=== PATIENT | female | born 1955 | race Caucasian/White ===

== ENCOUNTER 2016-05-02 16:41 | Emergency (ER) | payer OTHER ==
[~2016-05-02] VITALS: Ht 167.6 cm; Wt 139.0 kg
[~2016-05-02 16:41] MED LIST: BUPR200T2 PO; CHOL100010 PO; CYAN10005 PO; DICY1TAB25 PO; FSMD/70 PO; HYDR-5688 PO; OMEG10007 PO; OMEG1CAP71 PO
[2016-05-02 16:59] VITALS: TEMP 36.6; Ht 167.6 cm; Wt 139.0 kg
[2016-05-02] MEDS ORDERED: CHOL2000 PO (17:31)
[2016-05-02] MEDS ORDERED: WLLSR/200 PO (17:31)
[2016-05-02] MEDS ORDERED: ALEN70TA4 PO (17:31)
[2016-05-02] MEDS ORDERED: TRMCR180 TOP (17:31)
[2016-05-02] MEDS ORDERED: [UNRECOGNIZED DRUG - CODE] TOP (17:31)
--- NOTE | 2016-05-02 18:24 | EMERGENCY ROOM VISIT NOTE ---
History First contact with patient: 17:04 Chief Complaint: SKIN PROBLEM Stated Complaint: BLISTERS ON SKIN,GETTING WORSE History of Present Illness The patient is a 60 year old female who presents to the Emergency Room with complaints of a worsening rash. The patient reports that she has been seeing dermatology for a rash on her feet, legs and arms. The rash has been present for a few weeks but is worsening over the past few days. The patient states that she recently saw them and they performed a biopsy and gave her a cream. She has not yet received the results of the biopsy. She reports she has had worsening blisters between her toes over the past 2 days and states it is painful to walk. She rates her discomfort a 9/10. She has been taking Fedscreek at home without relief of her pain. She denies any fevers/chills or swelling. She denies any new medications or new environmental exposures. Review of Systems A complete 10-point Review of Systems was discussed with the patient, with pertinent positives and negatives listed in the History of Present Illness. All remaining Review of Systems questions can be considered negative unless otherwise specified. 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 (2) ARF (acute renal failure) (3) Depression (4) HTN (hypertension) Family History Blood clots Diabetes mellitus FH: CHF (congestive heart failure) FH: CVA (cerebrovascular accident) Social History Smoking Status: Former Smoker Alcohol Use: none Drug Use: none Housing Status: lives with family Occupation Status: employed Current/Historical Medications Scheduled Alendronate Sodium (Fosamax), 70 MG PO WK Bupropion Hcl (Wellbutrin Sr), 200 MG PO BID Cholecalciferol (Vitamin D3), 2,000 INTER.UNIT PO DAILY Cyanocobalamin (Vitamin B-12), 1,000 MCG PO DAILY Dicyclomine HCl (Dicyclomine HCl), 20 MG PO QID Fish Oil ([place]-3), 1,200 MG PO QAM Miconazole Nitrate (Topical) (Triple Paste Af), 1 APPLN TOP UD [place] 3 Fatty Acids-[place] 6 Fa ([place] 3-6-9 Complex), 1 CAP PO DAILY Triamcinolone Acet (Aristocort 0.1%), 1 APPLN TOP BID Scheduled PRN Hydrocodone/Acetaminophen 5MG/325MG (Fedscreek 5MG/325MG), 1-3 TABS PO Q6H PRN for Pain Allergies Coded Allergies: Ibuprofen (Verified Allergy, Mild, stomach irritation, 08/07/15) Acetaminophen (Unverified Allergy, Unknown, UPSET STOMACH, 08/07/15) Hydrocodone (Unverified Allergy, Unknown, UPSET STOMACH, 08/07/15) Uncoded Allergies: eggs (Allergy, Unknown, reaction unknown, 01/29/15) Physical Exam Vital Signs Date Time Temp Pulse Resp B/P Pulse Ox O2 Delivery O2 Flow Rate FiO2 05/02/16 18:52 96 20 106/68 97 05/02/16 16:59 36.6 96 18 197/77 100 Room Air Physical Exam VITALS: Vitals are noted on the nurse's note and reviewed by myself. Vital signs stable. GENERAL: This is a 52-year-old female, in no acute distress, nondiaphoretic, well-developed well-nourished. SKIN: There are multiple crusted erythematous lesions over the bilateral forearms, lower legs and feet. There are multiple bullous lesions on in between the toes. HEENT: Normocephalic. PERRLA. EOMI. Nares patent. Mucous membranes moist. Neck is supple without nuchal rigidity. HEART: Regular rate and rhythm without murmurs gallops or rubs. LUNGS: Clear to auscultation bilaterally without wheezes, rales or rhonchi. NEURO: Patient was alert and oriented to person place and time. Medical Decision & Procedures Medical Decision The patient was evaluated as above. She presents with a rash to the bilateral feet and arms which has been there for the past few weeks. She has a hard he seen a fire prevention research engineer regarding this and was given a steroid cream and had a biopsy performed. The biopsy results are not yet completed. I am not concerned about Valdes-Pedro syndrome or TEN. Do not feel that further workup is necessary at this time, as the patient is a 42 see a specialist for this rash. She does have a prescription for pain medication from her primary care provider which she has been taking at home. I do not feel that the patient needs any further treatment and did recommend that she follow-up with her established fire prevention research engineer regarding this dermatological condition. The patient verbalized her understanding of my assessment and treatment plan and the patient was discharged home in good condition. Impression Primary Impression: Rash and nonspecific skin eruption Departure Information Dispostion Home / Self-Care Condition GOOD Referrals Marcus Talavera D.O. (PCP) Patient Instructions My [facility] Additional Instructions Continue Fedscreek as needed for pain. Follow-up with your fire prevention research engineer. Call tomorrow for appointment. Return to the emergency room with fevers, worsening symptoms or any new/ concerning symptoms.
[2016-05-02 18:52] VITALS: BP 106/68; PULSE 96; O2SAT 97
[2016-09-10] MEDS ORDERED: DOCU-94 PO (18:33)
[2016-09-10] MEDS ORDERED: MELO7.5T6 PO (18:33)
[2016-09-11] MEDS ORDERED: LISI-461 PO (14:29)
== END 2016-05-02 19:00 | disposition home or self-care (01) ==
LOC: C.EDB 16:41 → C.EDD 19:00
DX: R21 Rash and other nonspecific skin eruption (principal); I10 Essential (primary) hypertension; Z85.9 Personal history of malignant neoplasm, unspecified; Z88.5 Allergy status to narcotic agent; Z88.6 Allergy status to analgesic agent; Z87.891 Personal history of nicotine dependence

== ENCOUNTER 2016-06-07 03:13 | Emergency (ER) | payer OTHER ==
[~2016-06-07] VITALS: Ht 167.6 cm; Wt 150.0 kg
[~2016-06-07 03:13] MED LIST changes: +ALEN70TA4 PO; -BUPR200T2 PO; -CHOL100010 PO; +CHOL2000 PO; -FSMD/70 PO; +TRMCR180 TOP; +WLLSR/200 PO; +[UNRECOGNIZED DRUG - CODE] TOP
[2016-06-07 03:15] VITALS: Ht 167.6 cm; Wt 150.0 kg
[2016-06-07] MEDS ORDERED: OXYCODONE HCL IR 5 MG TAB (IMMEDIATE RELEASE) PO STA (03:23)
[2016-06-07] MEDS ORDERED: VNTHFA/IN INH (04:02)
[2016-06-07] MEDS ORDERED: DOXY1TAB6 PO (04:02)
[2016-06-07] MEDS ORDERED: CYM/30 PO (04:02)
--- NOTE | 2016-06-07 04:52 | EMERGENCY ROOM VISIT NOTE ---
History First contact with patient: 03:16 Chief Complaint: FALL Stated Complaint: FELL OUT OF BED,BACK AND LT HIP PAIN History of Present Illness The patient is a 61 year old female who presents to the Emergency Room with complaints of falling out of bed landing on her back complaining of mid, low and left lower buttock pain after landing on this area. No prior fractures to this area. Patient states she is able to ambulate. Patient denies chest pain, dyspnea, abdominal pain, neck pain, head injury, headache, numbness, tingling, localized weakness, loss of bowel or bladder control, saddle anesthesia, IV drug abuse. Review of Systems See HPI for pertinent positives & negatives. A total of 10 systems reviewed and were otherwise negative. 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 (2) ARF (acute renal failure) (3) Depression (4) HTN (hypertension) Family History Blood clots Diabetes mellitus FH: CHF (congestive heart failure) FH: CVA (cerebrovascular accident) Social History Smoking Status: Never Smoker Alcohol Use: none Drug Use: none Housing Status: lives with family Occupation Status: employed Current/Historical Medications Scheduled Alendronate Sodium (Fosamax), 70 MG PO WK Bupropion Hcl (Wellbutrin Sr), 200 MG PO BID Cholecalciferol (Vitamin D3), 2,000 INTER.UNIT PO DAILY Cyanocobalamin (Vitamin B-12), 1,000 MCG PO DAILY Dicyclomine HCl (Dicyclomine HCl), 20 MG PO QID Doxycycline Hyclate (Doxycycline Hyclate), 100 MG PO BID Duloxetine HCl (Cymbalta), 30 MG PO DAILY Fish Oil ([place]-3), 1,200 MG PO QAM Miconazole Nitrate (Topical) (Triple Paste Af), 1 APPLN TOP UD [place] 3 Fatty Acids-[place] 6 Fa ([place] 3-6-9 Complex), 1 CAP PO DAILY Triamcinolone Acet (Aristocort 0.1%), 1 APPLN TOP BID Scheduled PRN Albuterol Hfa (Ventolin Hfa), 2 PUFFS INH Q4 PRN for SOB/Wheezing Hydrocodone/Acetaminophen 5MG/325MG ([place] 5MG/325MG), 1-3 TABS PO Q6H PRN for Pain Allergies Coded Allergies: Ibuprofen (Verified Allergy, Mild, stomach irritation, 06/07/16) Uncoded Allergies: eggs (Allergy, Unknown, reaction unknown, 01/29/15) Physical Exam Vital Signs Date Time Temp Pulse Resp B/P Pulse Ox O2 Delivery O2 Flow Rate FiO2 06/07/16 03:15 36.6 91 18 130/83 97 Room Air Physical Exam VITALS: Vitals are noted on the nurse's note and reviewed by myself. Vital signs stable. GENERAL: Pleasant female able to ambulate, in no acute distress, nondiaphoretic , well-developed well-nourished. SKIN: The skin was without rashes, erythema, edema, or bruising. There is no tenting of the skin. Capillary reflex less than 2 seconds. HEAD: Normocephalic atraumatic. EARS: External auditory canals clear, tympanic membranes pearly rice without erythema or effusion bilaterally. EYES: Pupils equal round and reactive to light and accommodation. Conjunctivae without injection, sclerae without icterus. Extraocular movements intact. NOSE: Patent, turbinates without inflammation or discharge MOUTH: Mucous membranes moist. Pharynx without erythema or exudate. Uvula midline. Airway patent. Tongue does not deviate. NECK: Supple without nuchal rigidity. No lymphadenopathy. No thyromegaly. Cervical spine is nontender. No JVD. HEART: Regular rate and rhythm LUNGS: Clear to auscultation bilaterally without wheezes, rales or rhonchi. No dullness to percussion. No retractions or accessory muscle use. ABDOMEN: Positive bowel sounds x 4. Normal tympanic percussion. Soft, protuberant, obese, nontender, without masses or organomegaly. Salter sign negative. No guarding or rebound tenderness. MUSCULOSKELETAL: No muscle atrophy, erythema, or edema noted. Mid thoracic region tender to palpation and lumbar region tender to palpation and left gluteal region tender to palpation with no step-offs. Patient can ambulate. + 2 patellar reflexes equal present bilaterally. Upper and lower Extremities nontender to palpation with full range of motion without pain. NEURO: Patient was alert and oriented to person place and time. Normal sensation to light and sharp touch. No focal neurological deficits. Medical Decision & Procedures Medications Administered Medications (Trade) Dose Ordered Sig/Sukhdeep Route Start Time Stop Time Status Last Admin Dose Admin Oxycodone HCl (Roxicodone Immediate Rel Tab) 5 mg NOW STAT PO 06/07/16 03:23 06/07/16 03:26 DC 06/07/16 03:28 5 MG ED Course Prior records/ancillary studies reviewed. Triage Nursing notes reviewed. The patient's history was concerning for back pain. Differential diagnosis: Etiologies such as musculoskeletal, disc herniation, fracture, aortic disease, metastatic disease, cord compression, discitis, infection, renal colic, gastrointestinal, acute exacerbation of chronic back pain, sciatica, cauda equina, as well as others were entertained. Physical findings: As above. No focal neurologic findings noted. ER treatment provided: OxyIR On reassessment the patient felt better. Diagnostics interpreted by me: Imaging studies: CT T SPINE: Mild compression deformity T7 superior endplate without retropulsion. Age indeterminate. May be chronic given what appears to be bridging osteophytes with adjacent levels. Correlate with point tenderness. CT L SPINE: Previous MRI September 2015 No acute fracture. Mild anterolisthesis L4 on L5, also present on the previous MR Incidental findings include possible thyroid nodules and right adrenal nodule. Radiologist: Reinaldo Salas M.D. Pelvis x-ray with no acute fracture per my interpretation. Osteopenia. This appears to be consistent with compression fracture of T7. The patient's physical examination and detailed history did not reveal any red flags for back pain such as those listed in the differential diagnosis. Therefore advanced diagnostics and consultations were felt to be unwarranted. Patient was neurovascularly and neurologically intact. She had no deficits on exam. She is well-appearing. She is advised to stretch the area out in the follow-up family care in a few days or here in the ER sooner for severe pain, numbness, tingling, inability to walk, worsening signs or symptoms or as needed. By the evaluation outlined above emergent etiologies such as aortic disease, metastatic disease, infection, renal colic, gastrointestinal, cord compression, cauda equina, as well as others were deemed relatively unlikely. The pt informed about the findings as listed above. All questions were answered and pleased with the treatment. Return instructions were outlined and the patient was discharged in stable condition. Outpatient prescription management: Oxy IR 5mg 1-2 po Q4 hrs prn Referral: The patient was referred back to primary care physician for follow-up in 2 to 3 days for a recheck of the current condition. Case reviewed with my attending Medical Decision As above Impression Primary Impression: Fall Additional Impression: Compression fracture of body of thoracic vertebra Departure Information Dispostion Home / Self-Care Condition GOOD Referrals Marcus Talavera D.O. (PCP) Patient Instructions My [facility] Additional Instructions DO NOT drive, drink alcohol, operate machinery, or perform dangerous activities today. You were given medications in the ER that can affect your ability to safely function or operate a vehicle. Oxycodone (OxyIR) 5mg: Take 1-2 pills every four hours for breakthrough pain. Avoid alcohol, operating machinery or dangerous equipment, working on ladders or roofs, DRIVING, or situations where being under the influence may be dangerous. It is recommended to use an gjel-gei-eomtrer stool softener such as Colace, 100mg twice daily while taking this medication to avoid constipation. Acetaminophen(Tylenol) may be used for fever or pain. Use 1000mg every six hours as needed. Avoid using more than 3000mg in a 24 hour period. This medication can be taken if you need to drive, work, or perform activities which may be dangerous when taking narcotic pain medication. Ice compresses for 20 minutes at a time four times daily for 2-3 days. Use the crutches as instructed. Use the sling as instructed. Remove your arm from the sling 4-6 times a day and move all the joints around to keep them loose. Rest and elevate your injury. Do not get the splint wet. If your splint feels excessively tight, you have worsening pain, develop numbness or tingling, or your digits appear blue, loosen the george wrap. Then reapply the george wrap gently without removing the splint. If your symptoms are not quickly relieved return to the ER for re- evaluation. Continue current medications. Return to the ER immediately for any numbness, tingling, severe pain, extreme swelling in the extremity or as needed. Call Orthopedics tomorrow to arrange follow up for your injury. Problem Qualifiers Primary Impression: Fall Encounter type: initial encounter Qualified Codes: W19.XXXA - Unspecified fall, initial encounter
[2016-06-07] MEDS ORDERED: OXYC1TAB3 PO (04:53)
[2016-06-07] MEDS ORDERED: OXYCODONE IR HOME PACK PO ONE (05:00)
[2016-06-07 05:05] VITALS: TEMP 36.6
[2016-06-07 05:12] VITALS: BP 126/87; PULSE 98; O2SAT 96
--- NOTE | 2016-06-07 06:55 | DIAGNOSTIC IMAGING REPORT ---
THORACIC SPINE CT CT DOSE: HISTORY: Trauma. Pain. fall, back pain TECHNIQUE: Multiaxial CT images of the thoracic spine were performed and reformatted in the sagittal and coronal plane without the use of contrast. COMPARISON: None. FINDINGS: Slight compression deformity superior endplate T7. This potentially is subacute. Degenerative change throughout the low thoracic region. No evidence for compromise of the spinal canal. Posterior arch appears to be intact at all levels. IMPRESSION: Acute/subacute mild compression deformity superior endplate T7. Degenerative change as described. No compromise of the spinal canal. Electronically signed by: Wallace Ramon M.D. 06/07/2016 6:52 AM Dictated Date/Time: 06/07/2016 6:51 AM
--- NOTE | 2016-06-07 07:16 | DIAGNOSTIC IMAGING REPORT ---
LUMBAR SPINE CT CT DOSE: 3688.87 mGy.cm HISTORY: fall, back pain TECHNIQUE: Multiaxial CT images of the lumbar spine were performed and reformatted in the sagittal and coronal plane without the use of contrast. COMPARISON: Lumbar spine MRI 10/20/2015. FINDINGS: No fractures within the lumbar spine. Grade I anterolisthesis of L4 on L5, unchanged. Moderate central canal narrowing at L4-5. Mild disc space narrowing at L4-L5. Pyuk-ew-uqgimdzz facet degenerative changes within the lower lumbar spine. IMPRESSION: No fractures within the lumbar spine. Electronically signed by: Everardo Colin M.D. 06/07/2016 7:14 AM Dictated Date/Time: 06/07/2016 7:11 AM
--- NOTE | 2016-06-07 07:40 | DIAGNOSTIC IMAGING REPORT ---
PELVIS 1 OR 2 VIEW ROUTINE CLINICAL HISTORY: fall, back pain, pelvic pain COMPARISON: None. DISCUSSION: The bones and joint spaces appear intact. There is no evidence of fracture, dislocation or bony disease. Moderate degenerative changes hips bilaterally. Study is somewhat compromised due to patient's large body habitus. IMPRESSION: No acute process within the limitations of patient body habitus factors. Electronically signed by: Wallace Ramon M.D. 06/07/2016 7:38 AM Dictated Date/Time: 06/07/2016 7:38 AM
--- NOTE | 2016-06-07 12:10 | Pharmacy Progress Note ---
ED Pharmacist Progress Note Date of Service: Jun 07, 2016. Received a phone call from [facility] stating they were concerned that this patient was getting a new Rx for Oxycodone IR but she already has a Rx for Hydrocodone/APAP as needed. The pharmacist wanted to be sure the ordering provider was aware. I advised the pharmacist that the Hydrocodone/APAP was listed on the patient's home med list and should have been available for provider's to review. I advised that the patient could likely use both as she has a new injury and her opiate requirements may be higher. However, the patient should be counseled on appropriate use and not to take both at the same time unless there was incomplete relief in 1 hr of taking either Oxycodone or Hydrocodone.
[2016-09-10] MEDS ORDERED: DOCU-94 PO (18:33)
[2016-09-10] MEDS ORDERED: MELO7.5T6 PO (18:33)
[2016-09-11] MEDS ORDERED: LISI-461 PO (14:29)
== END 2016-06-07 05:07 | disposition home or self-care (01) ==
LOC: C.EDB 03:13 → C.EDA 05:07
DX: S22.069A Unspecified fracture of T7-T8 vertebra, initial encounter for closed fracture (principal); W06.XXXA Fall from bed, initial encounter; I10 Essential (primary) hypertension; F32.9 Major depressive disorder, single episode, unspecified; Z85.89 Personal history of malignant neoplasm of other organs and systems; Z79.899 Other long term (current) drug therapy; Z88.6 Allergy status to analgesic agent; Z91.012 Allergy to eggs; Z83.3 Family history of diabetes mellitus; Z82.49 Family history of ischemic heart disease and other diseases of the circulatory system; Z82.3 Family history of stroke; Z86.2 Personal history of diseases of the blood and blood-forming organs and certain disorders involving the immune mechanism

== ENCOUNTER 2016-09-04 18:21 | Emergency (ER) | payer OTHER ==
[~2016-09-04] VITALS: Ht 167.6 cm; Wt 140.9 kg
[~2016-09-04 18:21] MED LIST changes: +CYM/30 PO; +DOXY1TAB6 PO; +OXYC1TAB3 PO; +VNTHFA/IN INH
[2016-09-04 18:26] VITALS: TEMP 36.5; Ht 167.6 cm; Wt 140.9 kg
[2016-09-04] MEDS ORDERED: AMLO-110 PO (18:38)
--- NOTE | 2016-09-04 18:55 | EMERGENCY ROOM VISIT NOTE ---
History First contact with patient: 18:37 Chief Complaint: BACK PAIN Stated Complaint: BACK PAIN - RECENT BACK SURGERY History of Present Illness The patient is a 61 year old female who presents to the Emergency Room with complaints of mid back pain for the last day since the patient was moving a mattress by herself. She thinks that she may have injured the back with a twisting motion. She denies any traumatic injury. She is having pain in the mid back radiating to her right side. She denies any numbness, tingling or weakness. She tried to take one of her hydrocodone tablets with no relief of the pain. The patient underwent a kyphoplasty at [facility] on August 16 in [place]. She is concerned that she may have reinjured the area. Review of Systems 6 system review negative. Please see pertinent positives in the history of present illness section. 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 (2) ARF (acute renal failure) (3) Depression (4) HTN (hypertension) Chronic kidney disease Hypertension Family History Blood clots Diabetes mellitus FH: CHF (congestive heart failure) FH: CVA (cerebrovascular accident) Social History Smoking Status: Former Smoker Alcohol Use: none Drug Use: none Housing Status: lives with family Occupation Status: unemployed Current/Historical Medications Scheduled Alendronate Sodium (Fosamax), 70 MG PO WK Amlodipine (Norvasc), 5 MG PO DAILY Bupropion Hcl (Wellbutrin Sr), 200 MG PO BID Cholecalciferol (Vitamin D3), 2,000 INTER.UNIT PO DAILY Cyanocobalamin (Vitamin B-12), 1,000 MCG PO DAILY Cyclobenzaprine Hcl (Flexeril), 10 MG PO TID Dicyclomine HCl (Dicyclomine HCl), 20 MG PO QID Duloxetine HCl (Cymbalta), 30 MG PO DAILY Fish Oil ([place]-3), 1,200 MG PO QAM Miconazole Nitrate (Topical) (Triple Paste Af), 1 APPLN TOP UD [place] 3 Fatty Acids-[place] 6 Fa ([place] 3-6-9 Complex), 1 CAP PO DAILY Triamcinolone Acet (Aristocort 0.1%), 1 APPLN TOP BID Scheduled PRN Albuterol Hfa (Ventolin Hfa), 2 PUFFS INH Q4 PRN for SOB/Wheezing Hydrocodone/Acetaminophen 5MG/325MG ([place] 5MG/325MG), 1-3 TABS PO Q6H PRN for Pain Oxycodone Immediate Rel Tab (Roxicodone Ir), 1 TAB PO Q4H PRN for Pain Allergies Coded Allergies: Ibuprofen (Verified Allergy, Mild, stomach irritation, 06/07/16) Uncoded Allergies: eggs (Allergy, Unknown, reaction unknown, 01/29/15) Physical Exam Vital Signs Date Time Temp Pulse Resp B/P (MAP) Pulse Ox O2 Delivery O2 Flow Rate FiO2 09/04/16 19:30 93 18 157/91 95 Room Air 09/04/16 18:26 36.5 105 20 161/101 95 Room Air Physical Exam VITALS: Vitals are noted on the nurse's note and reviewed by myself. Vital signs stable. GENERAL: 61-year-old female sitting upright in bed, in no acute distress SKIN: The skin was without rashes, erythema, edema, or bruising. HEAD: Normocephalic atraumatic. NECK: . Cervical spine is nontender. No JVD. HEART: Regular rate and rhythm without murmurs gallops or rubs. LUNGS: Clear to auscultation bilaterally without wheezes, rales or rhonchi. No accessory muscle use. MUSCULOSKELETAL: Tenderness to palpation over the mid thoracic spinous processes. Mild tenderness over the right paraspinous muscle in the thoracic area. No bruising or ecchymosis. Strength 5/5 throughout. NEURO: Patient was alert and oriented to person place and time. Normal sensation to touch. No focal neurological deficits. Medical Decision & Procedures ER Provider Diagnostic Interpretation: Patient Name: BREANN PENA Unit Number: [id number] Dictated: 09/04/161914 Transcribed: 09/04/161914 MS Printed Date/Time: [~ rep prt dt]/[~ rep prt tm] [~ rep ct labl] - [~ rep ct ivnm] [facility] [place] [address] Dictated: 09/04/161914 Transcribed: 09/04/161914 MS Printed Date/Time: [~ rep prt dt]/[~ rep prt tm] [~ rep ct labl] - [~ rep ct ivnm] Patient: BREANN PENA Address1: [address] [place] [address] Rec: [id number] Address2: Acct ID: [id number] [facility] Zip: [place] [address] Date: 1955 Sex: F Room/Bed: Ref Phy: Marcus Talavera D.O. SC: MARJORIE Att Phy: Report #: [id number] Jaqueline Phy: Marcus Talavera D.O. Test: TS3 Admit Phy: Felt Hat Steamer: FERNY Interpreting Phy: Wallace Ramon M.D. Diagnosis: BACK PAIN - RECENT BACK SURGERY Ordering Phy: Renata Pina PA-C Service Date: 09/04/16 Admit Date: 09/04/16 MNE: [id number] CONF: DICTATED BY: Wallace Ramon M.D.]] CC: Star Beard D.O. Newhouser, Shane D., D.O. Urban, Angela P., PA-C Endcc: [~ rep ct add3]] THORACIC SPINE 3 VIEWS ROUTINE HISTORY: Pain Mid back pain, twisting injury TTP over sx site COMPARISON: 06/07/2016 FINDINGS: Pre-existing moderate compression deformity T7. There appears to been an interval potential vertebral plasty versus partial healing. There are no new or interval compression deformities. Degenerative disc changes noted throughout. No subluxation. IMPRESSION: 1. Moderate pre-existing compression deformity of T7 unchanged compared to the prior study. No new or interval finding. Potential interval vertebroplasty The above report was generated using voice recognition software. It may contain grammatical, syntax or spelling errors. Electronically signed by: Wallace Ramon M.D. 09/04/2016 7:17 PM Dictated Date/Time: 09/04/2016 7:15 PM The status of this report is Signed. Draft = Not yet reviewed or approved by Radiologist. Signed = Reviewed and approved by Radiologist. <AttendingPhy></AttendingPhy> <FamilyPhy>Marcus Talavera D.O.</FamilyPhy> < PrimaryPhy>Marcus Talavera D.O.</PrimaryPhy> <UnitNumber>[id number]</ UnitNumber> <VisitNumber>[id number]</VisitNumber> <PatientName>BREANN PENA</ PatientName> <DateOfBirth>1955</DateOfBirth> <Location>[facility]</Location> < ServiceDate>09/04/16</ServiceDate> <MNE>ESINDI</MNE> <OrderingPhy>Renata Pina PA-C</OrderingPhy> <OrderingPhyMNE>f rep ord dr cerda</OrderingPhyMNE> < DictatingPhyMNE>f rep dict dr cerda</DictatingPhyMNE> <CCListMNE>f rep ct zaida</ CCListMNE> <AdmittingPhyMNE>f pt admit dr cerda</AdmittingPhyMNE> <AttendingPhyMNE >f pt attend dr cerda</AttendingPhyMNE> <ConsultingPhyMNE>f pt consult dr cerda</ConsultingPhyMNE> <FamilyPhyMNE>f pt fam dr cerda</FamilyPhyMNE> <OtherPhyMNE>f pt other dr cerda</OtherPhyMNE> < PrimaryPhyMNE>f pt prim care dr cerda</PrimaryPhyMNE> <ReferringPhyMNE>f pt referring dr cerda</ReferringPhyMNE> ED Course The patient was seen and examined She was offered pain medication and declined Imaging was performed and reviewed The findings were discussed with the patient Discharge instructions were reviewed, and the patient was discharged in good condition Medical Decision Differential diagnosis: Spine fracture, ligamentous injury, subluxation, spondylolisthesis, spondylosis, herniated disc, contusion, muscle spasm, muscle strain This patient is a pleasant 61-year-old female that presents emergency department complaining of mid back pain after lifting a mattress yesterday. She was concerned that she reinjured T7. She had a kyphoplasty performed at T[facility] in July. Because of the recent surgery, imaging was performed. No new findings or acute fractures were noted. I suggested that the patient follow-up with her surgeon this week. She was given a short course of narcotic pain medication in addition to a muscle relaxant for pain. She was instructed to return to the emergency department with any new or worsening symptoms Impression Primary Impression: Thoracic back pain Departure Information Dispostion Home / Self-Care Condition GOOD Prescriptions Cyclobenzaprine Hcl (FLEXERIL) 10 Mg Tab 10 MG PO TID for Muscle Spasms, #20 TAB Prov: Renata Pina PA-C 09/04/16 Oxycodone Immediate Rel Tab (ROXICODONE IR) 5 Mg Tab 1 TAB PO Q4H Y for Pain for 30 Days, #9 TAB Prov: Renata Pina PA-C 09/04/16 Referrals Marcus Talavera, Baylee.OEdie (PCP) Patient Instructions My [facility] Additional Instructions You were evaluated in the emergency department today with acute back pain. No new injury to your back was identified on x-ray. Please rest. No strenuous activity. Apply ice for 20 minute intervals. Oxycodone Immediate Release (OxyIR) 5mg: Take 1-2 pills every four hours for pain. Avoid alcohol, operating machinery or dangerous equipment, working on ladders or roofs, DRIVING, or situations where being under the influence may be dangerous. It is recommended to use an gkua-[id number] stool softener such as Colace, 100mg twice daily while taking this medication to avoid constipation. Take Flexeril 1 tab every 8 hours for muscle spasms. Please also to not drive when taking this medication. Please follow-up with your surgeon this week Return to the emergency department if you have any of the following symptoms: -Worsening pain -Numbness, tingling or weakness -Problems breathing -Problems with urination or bowel movements
--- NOTE | 2016-09-04 19:18 | DIAGNOSTIC IMAGING REPORT ---
THORACIC SPINE 3 VIEWS ROUTINE HISTORY: Pain Mid back pain, twisting injury TTP over sx site COMPARISON: 06/07/2016 FINDINGS: Pre-existing moderate compression deformity T7. There appears to been an interval potential vertebral plasty versus partial healing. There are no new or interval compression deformities. Degenerative disc changes noted throughout. No subluxation. IMPRESSION: 1. Moderate pre-existing compression deformity of T7 unchanged compared to the prior study. No new or interval finding. Potential interval vertebroplasty The above report was generated using voice recognition software. It may contain grammatical, syntax or spelling errors. Electronically signed by: Wallace Ramon M.D. 09/04/2016 7:17 PM Dictated Date/Time: 09/04/2016 7:15 PM
[2016-09-04] MEDS ORDERED: OXYC1TAB3 PO (19:24)
[2016-09-04] MEDS ORDERED: CYCL10TA6 PO (19:24)
[2016-09-04 19:30] VITALS: BP 157/91; PULSE 93; O2SAT 95
[2016-09-10] MEDS ORDERED: MELO7.5T6 PO (18:33)
[2016-09-10] MEDS ORDERED: DOCU-94 PO (18:33)
[2016-09-11] MEDS ORDERED: LISI-461 PO (14:29)
== END 2016-09-04 19:40 | disposition home or self-care (01) ==
LOC: C.EDB 18:22 → C.EDD 19:40
DX: M54.6 Pain in thoracic spine (principal); I12.9 Hypertensive chronic kidney disease with stage 1 through stage 4 chronic kidney disease, or unspecified chronic kidney disease; N18.9 Chronic kidney disease, unspecified; F32.9 Major depressive disorder, single episode, unspecified; Z85.89 Personal history of malignant neoplasm of other organs and systems; Z87.891 Personal history of nicotine dependence; Z98.890 Other specified postprocedural states; Z83.3 Family history of diabetes mellitus; Z82.49 Family history of ischemic heart disease and other diseases of the circulatory system; Z82.3 Family history of stroke; Z79.899 Other long term (current) drug therapy

== ENCOUNTER 2016-09-10 14:09 | Observation (INO) | payer OTHER ==
[~2016-09-10] VITALS: Ht 167.6 cm; Wt 140.0 kg
[~2016-09-10 14:09] MED LIST changes: +AMLO-110 PO; +CYCL10TA6 PO; -DOXY1TAB6 PO
--- NOTE | 2016-09-10 14:49 | DIAGNOSTIC IMAGING REPORT ---
CHEST ONE VIEW PORTABLE CLINICAL HISTORY: Chest pain. COMPARISON STUDY: Chest radiograph August 07, 2015. FINDINGS: Lung volumes are normal. Lungs are clear. No pneumothorax or pleural effusion is present. Cardiomediastinal silhouette is stable. There is no evidence of pulmonary edema. IMPRESSION: No acute cardiopulmonary findings. Electronically signed by: Ovidio Dunn M.D. 09/10/2016 2:48 PM Dictated Date/Time: 09/10/2016 2:48 PM
[2016-09-10 15:04] LABS: BASO % 0.6 %; BASO ABS # 0.04 K/uL (0-0.2); COMPLETE YES; EOS % 3.3 %; HEMATOCRIT 33.6 % (37-47); IG% 0.3 %; LYMPH % 24.5 %; LYMPH ABS # 1.72 K/uL (1.2-3.4); MEAN CELL VOLUME 91.3 fL (80-100); MEAN CORPUSCULAR HEMOGLOBIN 29.6 pg (25-34); MEAN CORPUSCULAR HGB CONC 32.4 g/dl (32-36); MEAN PLATELET VOLUME 9.5 fL (7.4-10.4); MONO % 11.2 %; NEUT % 60.1 %; PLATELET COUNT 233 K/uL (130-400); RED BLOOD COUNT 3.68 M/uL (4.2-5.4); WHITE BLOOD COUNT 7.03 K/uL (4.8-10.8)
[2016-09-10 15:14] LABS: PROTHROMBIN TIME (PATIENT) 10.7 SECONDS (9.0-12.0)
[2016-09-10 15:26] LABS: ALT/SGPT 18 U/L (12-78); AST/SGOT 12 U/L (15-37); BLOOD UREA NITROGEN 20 mg/dl (7-18); BUN/CREATININE RATIO 15.7 (10-20); CALCIUM 8.5 mg/dl (8.5-10.1); CARBON DIOXIDE 28 mmol/L (21-32); CHLORIDE 111 mmol/L (98-107); GLUCOSE 103 mg/dl (70-99); MAGNESIUM 2.1 mg/dl (1.8-2.4); POTASSIUM 4.2 mmol/L (3.5-5.1); SODIUM 143 mmol/L (136-145)
--- NOTE | 2016-09-10 15:26 | DIAGNOSTIC IMAGING REPORT ---
CT OF THE HEAD WITHOUT CONTRAST CLINICAL HISTORY: Left upper extremity weakness. COMPARISON STUDY: Head CT July 27, 2015. CT DOSE: 1031.97 mGy.cm TECHNIQUE: Helical axial images of the head were obtained without IV contrast. Automated exposure control was utilized for the study. A dose lowering technique was utilized adhering to the principles of ALARA. FINDINGS: No acute intracranial hemorrhage, midline shift or mass effect is present. Brain volume is normal. Ventricular system is normal. Basilar cisterns are patent. There are no extra-axial collections. There are no findings to suggest acute dural sinus thrombosis or acute territorial infarct. There are no significant calvarial abnormalities. Visualized portions of the sinuses and mastoid air cells are clear. A nasal septal defect is again noted. This was shown on prior exam. IMPRESSION: No acute intracranial findings. Electronically signed by: Ovidio Dunn M.D. 09/10/2016 3:25 PM Dictated Date/Time: 09/10/2016 3:22 PM
[2016-09-10 15:31] LABS: ALB/GLOB RATIO 0.9 (0.9-2); ALKALINE PHOSPHATASE 90 U/L (45-117)
[2016-09-10] MEDS ORDERED: OPTIRAY 320 IV PRN (16:30)
--- NOTE | 2016-09-10 18:01 | DIAGNOSTIC IMAGING REPORT ---
ADDENDUM Addendum: Note is made of several suspected thyroid nodules, including a dominant right lobe thyroid nodule. A nonemergent thyroid ultrasound is recommended. Electronically signed by: Ovidio Dunn M.D. 09/10/2016 6:13 PM Dictated Date/Time: 09/10/2016 6:[address] ANGIOGRAPHY OF THE CHEST, PULMONARY EMBOLUS PROTOCOL CLINICAL HISTORY: Chest pain and elevated d-dimer. COMPARISON STUDY: Chest CT August 18, 2013 and chest radiograph performed earlier today. TECHNIQUE: Following IV administration of 94 mL of Optiray-320, helical axial images of the chest were obtained utilizing the pulmonary embolus protocol. Maximal intensity projections and sagittal and coronal reformats were viewed on an independent 3D workstation. IV contrast was administered without complication. A dose lowering technique was utilized adhering to the principles of ALARA. CT DOSE: 671.37 mGy.cm FINDINGS: No pulmonary emboli are identified. The heart is mildly enlarged. There is no thoracic aortic dissection. No enlarged mediastinal or hilar lymph nodes are present. There has been interval development of mild bilateral axillary lymphadenopathy. An index left axillary lymph node measures 2.3 x 1.6 cm. An index right axillary lymph node measures 1.7 x 1.4 cm. The right lobe of the thyroid gland is asymmetrically enlarged. There may be a 2.7 cm right lobe thyroid nodule. There could be a few smaller thyroid nodules. A right adrenal adenoma is unchanged. There are multiple old bilateral rib fractures. In addition, there are several subacute posterior right-sided rib fractures. There is no pneumothorax. There is no consolidation to suggest pneumonia. There is no pleural effusion. Groundglass opacities reflect atelectasis. An old T7 compression fracture status post vertebral augmentation is noted. IMPRESSION: 1. No pulmonary emboli identified. 2. No consolidation to suggest pneumonia. 3. Interval development of mild bilateral axillary lymphadenopathy. The nodes are mildly enlarged with thickened cortex but each node has a fatty hilum. This finding is nonspecific and a follow-up chest CT in 3 months is recommended. 4. Multiple subacute posterior right-sided rib fractures. Numerous old bilateral rib fractures. No pneumothorax. Electronically signed by: Ovidio Dunn M.D. 09/10/2016 5:59 PM Dictated Date/Time: 09/10/2016 5:48 PM
[2016-09-10] MEDS ORDERED: ASPIRIN/ALUM/MAGNES/CAL CARB 325 MG TAB PO STA (18:07)
[2016-09-10] MEDS ORDERED: MAGNESIUM HYDROXIDE SUSP 30 ML UDC PO PRN (18:30)
[2016-09-10] MEDS ORDERED: ONDANSETRON INJ 2 MG/ML 2 ML VIAL IV PRN (18:30)
[2016-09-10] MEDS ORDERED: METOPROLOL TARTRATE 1 MG/ML VIAL IV PRN (18:30)
[2016-09-10] MEDS ORDERED: ALUMINUM/MAGNESIUM/SIMETH (MAALOX MAX) 30 ML UDC PO PRN (18:30)
[2016-09-10] MEDS ORDERED: ACETAMINOPHEN 325 MG TAB PO PRN (18:30)
[2016-09-10] MEDS ORDERED: NITROGLYCERIN 0.4 MG SL PER TAB CHARGE SL PRN (18:30)
[2016-09-10] MEDS ORDERED: MoRPHine SULFATE 2 MG/ML CARP IV PRN (18:30)
[2016-09-10] MEDS ORDERED: DOCU-94 PO (18:33)
[2016-09-10] MEDS ORDERED: MELO7.5T6 PO (18:33)
[2016-09-10] MEDS: HYDROCODONE/ACETAMOPHEN 5/325MG TAB PO PRN (19:12)
[2016-09-10 19:59] VITALS: BP 168/82; PULSE 93; TEMP 36.6; O2SAT 94
[2016-09-10] MEDS ORDERED: LORAZEPAM 2 MG/ML 1 ML VIAL IV PRN (20:00)
[2016-09-10] MEDS ORDERED: IV FLUIDS COMPLETED PRN (20:30)
[2016-09-10] MEDS ORDERED: GADAVIST IV PRN (21:30)
[2016-09-10 21:33] VITALS: BP 168/82; PULSE 93; TEMP 36.6; O2SAT 94; Ht 167.6 cm; Wt 140.0 kg
[2016-09-10] MEDS: NITROGLYCERIN OINT 2% 1GM PACKET EXT SCH (21:53)
[2016-09-10] MEDS: TRIAMCINOLONE ACET 0.1% CR 15 GM TUBE EXT SCH (21:57)
[2016-09-10] MEDS: DOCUSATE SODIUM 100 MG CAP PO SCH (21:58)
[2016-09-10] MEDS: BuPROPion SR 100 MG TABCR PO SCH (21:58)
[2016-09-10] MEDS: DICYCLOMINE HCL 20 MG TAB PO SCH (21:58)
--- NOTE | 2016-09-10 22:18 | DIAGNOSTIC IMAGING REPORT ---
MRI OF THE BRAIN WITHOUT AND WITH IV CONTRAST CLINICAL HISTORY: Left arm numbness. Evaluate for cerebrovascular accident. COMPARISON STUDY: Head CT July 27, 2015 and September 10, 2016. TECHNIQUE: Utilizing a 1.5 Marylin magnet and dedicated coil, multiplanar, multiecho imaging of the brain was performed pre and postcontrast administration. IV administration of 14 mL of Gadavist contrast was uneventful. FINDINGS: There are no areas of restricted diffusion. No acute intracranial hemorrhage, midline shift or mass effect is present. Postcontrast images are moderately compromised by motion artifact. However, no intracranial masses are identified. There is no pathologic enhancement. Ventricular system is normal. Basilar cisterns are patent. There are no extra-axial collections. Flow-voids for the major intracranial vessels are present. Orbits are unremarkable. Calvarial signal is maintained. IMPRESSION: 1. No acute intracranial findings. 2. Postcontrast images moderately compromised by motion artifact but no intracranial masses or pathologic enhancement identified. 3. Unremarkable MRI of the brain. Electronically signed by: Ovidio Dunn M.D. 09/10/2016 10:17 PM Dictated Date/Time: 09/10/2016 10:13 PM
[2016-09-10 23:51] VITALS: BP 151/79; PULSE 98; TEMP 36.5; O2SAT 95
[2016-09-11] MEDS: NITROGLYCERIN OINT 2% 1GM PACKET EXT SCH ×2 (02:00→07:41)
[2016-09-11 02:05] VITALS: BP 141/88; PULSE 90; TEMP 36.5
[2016-09-11 05:52] LABS: BASO % 1.1 %; BASO ABS # 0.07 K/uL (0-0.2); COMPLETE YES; EOS % 4.7 %; IG% 0.2 %; LYMPH % 27.1 %; LYMPH ABS # 1.75 K/uL (1.2-3.4); MEAN CELL VOLUME 91.9 fL (80-100); MEAN CORPUSCULAR HEMOGLOBIN 28.6 pg (25-34); MEAN CORPUSCULAR HGB CONC 31.1 g/dl (32-36); MEAN PLATELET VOLUME 9.7 fL (7.4-10.4); MONO % 12.1 %; NEUT % 54.8 %; PLATELET COUNT 217 K/uL (130-400); RED BLOOD COUNT 3.81 M/uL (4.2-5.4); WHITE BLOOD COUNT 6.45 K/uL (4.8-10.8)
[2016-09-11 06:25] LABS: BUN/CREATININE RATIO 18.6 (10-20); CALCIUM 8.5 mg/dl (8.5-10.1); CREATININE 1.2 mg/dl (0.60-1.20); MAGNESIUM 2.2 mg/dl (1.8-2.4); POTASSIUM 4.1 mmol/L (3.5-5.1)
[2016-09-11] MEDS ORDERED: PERFLUTREN LIPID MICROSPHERE (DEFINITY) IV ONE (06:55)
[2016-09-11 07:20] VITALS: BP 170/83; PULSE 85; TEMP 36.6; O2SAT 94
[2016-09-11] MEDS: HYDROCODONE/ACETAMOPHEN 5/325MG TAB PO PRN ×2 (07:41→12:16)
[2016-09-11] MEDS: TRIAMCINOLONE ACET 0.1% CR 15 GM TUBE EXT SCH (07:42)
[2016-09-11] MEDS: DOCUSATE SODIUM 100 MG CAP PO SCH (07:43)
[2016-09-11] MEDS: DICYCLOMINE HCL 20 MG TAB PO SCH ×2 (07:43→12:16)
[2016-09-11] MEDS: BuPROPion SR 100 MG TABCR PO SCH (07:43)
[2016-09-11] MEDS ORDERED: OMEGA FA PO SCH (09:00)
[2016-09-11] MEDS ORDERED: CHOLECALCIFEROL 1000 INTER.UNIT TAB PO SCH (09:00)
[2016-09-11] MEDS ORDERED: FATTY ACIDS OMEGA PO SCH (09:00)
[2016-09-11] MEDS ORDERED: AMLODIPINE BESYLATE 5 MG TAB PO SCH (09:00)
[2016-09-11] MEDS ORDERED: OMEGA-3 (PURIFIED FISH OIL) 1 GM CAP PO SCH (09:00)
[2016-09-11] MEDS ORDERED: MELOXICAM 7.5 MG TAB PO SCH (09:00)
[2016-09-11] MEDS ORDERED: CYANOCOBALAMIN 500 MCG TAB (VIT B-12) PO SCH (09:00)
[2016-09-11] MEDS ORDERED: ASPIRIN 81 MG ECTAB PO SCH (09:00)
[2016-09-11] MEDS ORDERED: MICONAZOLE NITRATE 2% CR 30 GM TUBE EXT SCH (09:00)
[2016-09-11] MEDS ORDERED: DULOXETINE (CYMBALTA) 30 MG CAP PO SCH (09:00)
--- NOTE | 2016-09-11 09:01 | ECHOCARDIOGRAM REPORT ---
*NOTICE TO RECEIVING LIBERTARIAN AGENCY This information is strictly Confidential and protected under [place] law. [place] law prohibits you from making any further disclosure of this information unless further disclosure is expressly permitted by the written consent of the person to whom it pertains or is authorized by law. A general authorization for the release of medical or other information is not sufficient for this purpose. Hospital accepts no responsibility if the information is made available to any other person, INCLUDING THE PATIENT. Interpretation Summary * Name: BREANN PENA Study Date: 09/11/2016 06:23 AM BP: 141/88 mmHg * Patient Location: [facility]\S\N282\S\2 HR: 90 * : 1955 (M/d/yyyy) Gender: Female Height: 66 in * Age: 61 yrs Ethnicity: [place] Weight: 309 lb * Ordering Physician: Jean Carlos Cheng * Referring Physician: Self, Referred * Performed By: Natalya Bartlett RDCS * * Reason For Study: Chest pain * BSA: 2.4 m2 * -- Conclusions -- * The left ventricle is normal in size. * There is mild concentric left ventricular hypertrophy. * The left ventricular wall motion is normal. * The aortic valve appears trileaflet with mild to moderate leaflet calcification. Congentially abnormal valve not completely excluded. * No hemodynamically significant valvular aortic stenosis. * Grade I diastolic dysfunction, (abnormal relaxation pattern). * There is no pericardial effusion. Procedure Details * A complete two-dimensional transthoracic echocardiogram was performed (2D, M-mode, Doppler and color flow Doppler). * A contrast injection of Definity was performed to improve assessment of LV function. * Contrast was injected into an intravenous site in the left arm. * One vial of Definity ultrasound contrast was diluted in normal saline to a total volume of 10 ml. A total of '2' ml of solution was administered during imaging. * Lot # [id number] of Definity utilized for procedure. * Expiration date OCT 07. * The attending nurse who injected the contrast agent was Jo Ann Spicer RN. Left Ventricle * The left ventricle is normal in size. * There is mild concentric left ventricular hypertrophy. * Ejection Fraction = 60-65%. * Left ventricular systolic function is normal. * The left ventricular wall motion is normal. Right Ventricle * The right ventricle is normal in size and function. Atria * The left atrial size is normal. * Right atrial size is normal. * No ASD detected; PFO is not assessed. Mitral Valve * There is mild mitral annular calcification. * There is no mitral valve stenosis. * There is trace mitral regurgitation. Tricuspid Valve * The tricuspid valve is not well visualized, but is grossly normal. * There is no tricuspid stenosis. * There is trace tricuspid regurgitation. Aortic Valve * The aortic valve appears trileaflet with mild to moderate leaflet calcification. Congentially abnormal valve not completely excluded. * No hemodynamically significant valvular aortic stenosis. * No aortic regurgitation is present. Pulmonic Valve * The pulmonic valve is not well visualized. Great Vessels * The aortic root is normal size. Pericardium/Pleural * There is no pericardial effusion. Great Vessels * Normal inferior vena cava diameter and respiratory variation suggests normal central venous pressure. Left Ventricular Diastolic Function * Grade I diastolic dysfunction, (abnormal relaxation pattern). MMode 2D Measurements and Calculations IVSd 1.1 cm LVIDd 4.8 cm LVIDs 3.2 cm LVPWd 1.1 cm IVS/LVPW 0.99 FS 33.7 % EDV(Teich) 108.8 ml ESV(Teich) 41.0 ml EF(Teich) 62.4 % EDV(cubed) 112.3 ml ESV(cubed) 32.8 ml EF(cubed) 70.8 % LV mass(C)d 191.8 grams LV mass(C)dI 79.7 grams/m\S\2 CO(Teich) 5.6 l/min CI(Teich) 2.3 l/min/m\S\2 SV(Teich) 67.9 ml SI(Teich) 28.2 ml/m\S\2 CO(cubed) 6.6 l/min CI(cubed) 2.7 l/min/m\S\2 SV(cubed) 79.6 ml SI(cubed) 33.1 ml/m\S\2 Ao root diam 3.4 cm Ao root area 8.8 cm\S\2 ACS 2.1 cm asc Aorta Diam 2.9 cm LVAd ap4 33.6 cm\S\2 LVLd ap4 8.3 cm EDV(MOD-sp4) 112.0 ml LVAs ap4 17.9 cm\S\2 LVLs ap4 6.3 cm ESV(MOD-sp4) 40.9 ml EF(MOD-sp4) 63.5 % LVAd ap2 36.8 cm\S\2 LVLd ap2 8.6 cm EDV(MOD-sp2) 129.0 ml LVAs ap2 20.3 cm\S\2 LVLs ap2 7.1 cm ESV(MOD-sp2) 48.1 ml EF(MOD-sp2) 62.7 % CO(MOD-sp4) 5.9 l/min CI(MOD-sp4) 2.5 l/min/m\S\2 SV(MOD-sp4) 71.1 ml SI(MOD-sp4) 29.5 ml/m\S\2 CO(MOD-sp2) 6.7 l/min CI(MOD-sp2) 2.8 l/min/m\S\2 SV(MOD-sp2) 80.9 ml SI(MOD-sp2) 33.6 ml/m\S\2 Doppler Measurements and Calculations MV E max redd 53.1 cm/sec MV A max redd 87.5 cm/sec MV E/A 0.61 Ao V2 max 188.7 cm/sec Ao max PG 14.2 mmHg Ao max PG (full) 11.3 mmHg Ao V2 mean 136.0 cm/sec Ao mean PG 8.2 mmHg Ao V2 VTI 36.4 cm LV V1 max PG 3.0 mmHg LV V1 max 86.4 cm/sec SV(Ao) 321.6 ml SI(Ao) 133.6 ml/m\S\2 PA V2 max 124.9 cm/sec PA max PG 6.2 mmHg PA acc slope 602.2 cm/sec\S\2 PA acc time 0.12 sec PA pr(Accel) 23.5 mmHg
[2016-09-11 11:31] VITALS: BP 156/88; PULSE 86; TEMP 36.7; O2SAT 94
[2016-09-11] MEDS ORDERED: LISINOPRIL 5 MG TAB PO STA (12:19)
--- NOTE | 2016-09-11 12:36 | HISTORY & PHYSICAL EXAMINATION ---
DATE OF ADMISSION: 09/10/2016 CHIEF COMPLAINT: Chest pain. HISTORY OF PRESENT ILLNESS: This is a 61-year-old female with a past medical history significant for irritable bowel syndrome, Lyme disease with Collazo's palsy, hypertension, chronic kidney disease stage III, lumbar spinal stenosis, depression, and bullous pemphigoid, presents with chest pain. The patient says she was taking care of her mom yesterday when she started to notice retrosternal chest pain, 10/10 in severity and she went and laid down for 1 hour and the pain subsided. Again in the morning when she woke up, again she developed about 5/10 in severity of sharp chest pain and also she felt numb in her left hand. She could not move or left hand and then she decided to come to the ER. In the ER, initial workup was negative. She can move her left hand now, but still feels some soreness in her fingers. Denies any shortness of breath. No sweating. No nausea. Has some headache and some blurred vision. No dizziness. No cough, no fever, no chills, and no abdominal pain. Normal bowel and bladder movements. Appetite is okay. Ambulation is okay. Currently resting comfortably. Blood pressure seems to be high. The patient says her blood pressure is not well controlled and she checks her blood pressure over the morning and evening and notifies her blood pressure to her family doctor. ALLERGIES: IBUPROFEN. PAST MEDICAL HISTORY: As mentioned above. PAST SURGICAL HISTORY: Colonoscopy with biopsy, bilateral right ganglion cyst excision, hysteroscopy with endometrial ablation, benign lump removed from the neck, knee surgery, and back surgery. MEDICATIONS: The patient is on Percocet 5/325 mg 1 tablet b.i.d. p.r.n., Norvasc 5 mg p.o. daily, dicyclomine 20 mg p.o. q.i.d., meloxicam 7.5 mg p.o. daily, Cymbalta 30 mg p.o. daily, bupropion ER 200 mg p.o. b.i.d., Fosamax 70 mg p.o. weekly, Colace 100 mg p.o. b.i.d., omega 3-6-9 fatty acids 1 tablet daily, and B12 at 1000 mcg p.o. daily. FAMILY HISTORY: Significant for mother had arthritis, uterine cancer, bypass surgery, stroke and dementia. Father had diabetes, heart disorder, hypertension and stroke. SOCIAL HISTORY: Former smoker, quit in 2008. Prior to this, smoked half pack a day for 30 years. No alcohol or illicit product use. Single. REVIEW OF SYMPTOMS: As per HPI. Rest of review of symptoms negative. PHYSICAL EXAMINATION: GENERAL: The patient is morbidly obese, not in distress. VITAL SIGNS: Temperature 36.7, pulse 89, respiratory rate 17, blood pressure 118/86, and oxygen 95%. HEENT: No pallor, no icterus. Pupils equal, round, and react to light. NECK: No JVD, no neck masses, no carotid bruits. CARDIOVASCULAR: S1 and S2 heard, regular rate and rhythm, no murmur, no gallop. RESPIRATORY SYSTEM: Clear to auscultation bilaterally. No wheezing and no crackles. ABDOMEN: Soft. Bowel sounds present. Nontender. No distention. CENTRAL NERVOUS SYSTEM: Cranial nerves II-XII grossly intact. Nonfocal. EXTREMITIES: No edema and no erythema. LABS: WBC 7.03, hemoglobin 10.9, hematocrit 33.6, and platelets 233. Sodium 143, potassium 4.2, chloride 111, bicarbonate 28, BUN 20, creatinine 1.3, serum glucose 103, calcium 8.5, and magnesium 2.1. Total bilirubin 0.3. AST 12, ALT 18, and alkaline phosphatase 90. Troponin I less than 0.015. BNP 488. PT 10.7 and INR 1. D-dimer 1310. CT of the head, no acute findings. Chest x-ray, no acute cardiopulmonary findings. CT of the chest, no acute findings. ASSESSMENT AND PLAN: This is a 61-year-old female who presents with chest pain and left hand numbness. 1. Chest pain and left hand numbness. Initial troponins negative. Could be related to uncontrolled blood pressure . We will admit to tele floor, monitor the serial cardiac enzymes. Continue home blood pressure medication of amlodipine, place on nitro paste and IV Lopressor p.r.n. Serial cardiac enzymes, consult cardiology in a.m. 2. Possible transient ischemic attack versus cerebrovascular accident. The patient also had left hand numbness and could not move her hand when she presented to the ER, but since then it has improved. CT of the head is unremarkable. We will get MRI of the head and start her on aspirin. We will follow the fasting lipid profile. 3. Hypertension, uncontrolled. Continue home medications of Norvasc, nitro paste and iv Lopressor p.r.n. We will follow echocardiogram and follow the blood pressure in the hospital. 4. Depression, continue the Cymbalta and bupropion. 5. Chronic back pain, continue home pain medications. 6. Morbid obesity. We will do nocturnal pulse ox study and patient needs sleep study as an outpatient. 7. Chronic kidney disease, stage III. Baseline creatinine around 1.3. We will follow the labs. 8. Deep vein thrombosis prophylaxis, SCDs and TEDs for now. 9. Disposition: Observation tele floor. Expect to discharge home and follow with family doctor. Level 1, full code. MTDD
[2016-09-11] MEDS ORDERED: LISI-461 PO (14:29)
--- NOTE | 2016-09-11 14:34 | Discharge Instructions ---
Discharge Instructions Date of Service Sep 11, 2016. Admission Reason for Admission: Chest Pain Discharge Discharge Diagnosis / Problem: CHEST PAIN, UNCONTROLLED HTN Discharge Goals Goal(s): Decrease discomfort, Improve function Activity Recommendations Activity Limitations: resume your previous activity . Instructions / Follow-Up Instructions / Follow-Up FOLLOWUP WITH FAMILY DOCTOR ON August AT 11:10PM. BLOOD PRESSURE FOLLOWUP WITH FAMILY DOCTOR. OUT PATIENT STRESS TEST WITH FAMILY DOCTOR REFERRAL. LAB: BMP IN 1-2 WEEKS RESTARTING ON LISINOPRIL AND FOLLOW RESULTS WITH FAMILY DOCTOR. TO STOP MELOXICAM AT CAN CAUSE KIDNEY FAILURE, GASTRIC ULCERS AND HEART ATTACKS. Current Hospital Diet Patient's current hospital diet: AHA Diet (Heart Healthy) Discharge Diet Recommended Diet: AHA Diet (Heart Healthy), Diabetes Type 2 Diet Pending Studies Studies pending at discharge: no Laboratory Results Hemoglobin A1c Test 09/11/16 05:12 Range/Units Lipid Panel Test 09/11/16 05:12 Range/Units Triglycerides Level 155 H 0-150 mg/dl Cholesterol Level 148 0-200 mg/dl HDL Cholesterol 37 mg/dl Cholesterol/HDL Ratio 4.0 LDL Cholesterol, Calculated 80 mg/dl Medical Emergencies . Who to Call and When: Medical Emergencies: If at any time you feel your situation is an emergency, please call 911 immediately. . Non-Emergent Contact Non-Emergency issues call your: Primary Care Provider . . "Provider Documentation" section prepared by Jean Carlos Cheng. . VTE Core Measure Inpt VTE Proph given/why not?: SCD's
[2016-09-11 14:38] VITALS: BP 156/88; PULSE 86; TEMP 36.7; O2SAT 94
--- NOTE | 2016-09-11 17:17 | Progress Note ---
Internal Med Progress Note Date of Service: Sep 11, 2016. Provider Documentation: SUBJECTIVE: feeling better today no more chest pain today no sob afebrile no nausea OBJECTIVE: Vital Signs-as noted below Exam: General-alert and oriented. Not in distress ENT-normal hearing Neck-no neck masses Lungs-cta b/l no wheezing or crackles Heart-s1 and s2 heard, regular rate and rhythm, no murmurs Abdomen-soft bowel sounds present non tender no distension Extremities-no edema no erythema Neuro-alert and oriented moves extremities Lab data as noted below. ASSESSMENT & PLAN: 1. Chest pain and left hand numbness. serial CE negative ekg unremarkable echo mild LVH otherwise unremarkable asymptomatic today seen by cardiology and appreciate inputs plan for out patient stress test with PCP referral. 2. Possible transient ischemic attack versus cerebrovascular accident. The patient also had left hand numbness and could not move her hand when she presented to the ER, but since then it has improved. CT head AND MRI head unremarkable. 3. Hypertension, uncontrolled. recently her lisinopril 20mg daily was stopped post back surgery in [place] as she developed hypotension and EDYTA.PCP started on Norvasc. Patient says she was on lisinopril for two years. Will continue home Norvasc. Will restart lisinopril 10mg daily and close followup width pcp. f/u lab: bmp in 1-2 weeks with PCP> 4. Depression, continue the Cymbalta and bupropion. 5. Chronic back pain, continue home pain medications. 6. Morbid obesity. nocturnal pulse ox study requires oxygen while sleeping. Needs sleep study as an outpatient. 7. Chronic kidney disease, stage III. Baseline creatinine around 1.4. We will follow the labs. discharged home Vital Signs: Date Time Temp Pulse Resp B/P (MAP) Pulse Ox O2 Delivery O2 Flow Rate FiO2 09/11/16 14:38 36.7 86 18 94 Room Air 09/11/16 12:00 Room Air 09/11/16 11:31 36.7 86 18 156/88 (110) 94 Room Air 09/11/16 08:00 Room Air 09/11/16 07:20 36.6 85 18 170/83 (112) 94 Room Air 09/11/16 04:00 Room Air 09/11/16 02:05 36.5 90 141/88 (105) 7/23/17 00:00 Room Air 09/10/16 23:51 36.5 98 18 151/79 (103) 95 Room Air 09/10/16 21:33 36.6 93 20 168/82 94 Room Air 09/10/16 19:59 36.6 93 20 168/82 (110) 94 Room Air 09/10/16 18:06 93 20 09/10/16 17:36 89 17 95 09/10/16 17:35 189/86 Lab Results: Results Past 24 Hours Test 09/11/16 05:12 09/11/16 12:10 Range/Units White Blood Count 6.45 4.8-10.8 K/uL Red Blood Count 3.81 4.2-5.4 M/uL Hemoglobin 10.9 12.0-16.0 g/dL Hematocrit 35.0 37-47 % Mean Corpuscular Volume 91.9 80-100 fL Mean Corpuscular Hemoglobin 28.6 25-34 pg Mean Corpuscular Hemoglobin Concent 31.1 32-36 g/dl Platelet Count 217 130-400 K/uL Mean Platelet Volume 9.7 7.4-10.4 fL Neutrophils (%) (Auto) 54.8 % Lymphocytes (%) (Auto) 27.1 % Monocytes (%) (Auto) 12.1 % Eosinophils (%) (Auto) 4.7 % Basophils (%) (Auto) 1.1 % Neutrophils # (Auto) 3.54 1.4-6.5 K/uL Lymphocytes # (Auto) 1.75 1.2-3.4 K/uL Monocytes # (Auto) 0.78 0.11-0.59 K/uL Eosinophils # (Auto) 0.30 0-0.5 K/uL Basophils # (Auto) 0.07 0-0.2 K/uL RDW Standard Deviation 44.6 36.4-46.3 fL RDW Coefficient of Variation 13.3 11.5-14.5 % Immature Granulocyte % (Auto) 0.2 % Immature Granulocyte # (Auto) 0.01 0.00-0.02 K/uL Sodium Level 143 136-145 mmol/L Potassium Level 4.1 3.5-5.1 mmol/L Chloride Level 110 98-107 mmol/L Carbon Dioxide Level 29 21-32 mmol/L Anion Gap 4.0 3-11 mmol/L Blood Urea Nitrogen 22 7-18 mg/dl Creatinine 1.20 0.60-1.20 mg/dl Est Creatinine Clear Calc Drug Dose 73.0 ml/min Estimated GFR () 57.3 Estimated GFR (Non- 49.4 BUN/Creatinine Ratio 18.6 10-20 Random Glucose 85 70-99 mg/dl Calcium Level 8.5 8.5-10.1 mg/dl Magnesium Level 2.2 1.8-2.4 mg/dl Triglycerides Level 155 0-150 mg/dl Cholesterol Level 148 0-200 mg/dl HDL Cholesterol 37 mg/dl LDL Cholesterol, Calculated 80 mg/dl VLDL Cholesterol, Calculated 31 mg/dl Cholesterol/HDL Ratio 4.0 Troponin I < 0.015 0-0.045 ng/ml
--- NOTE | 2016-09-11 17:20 | Discharge Summary ---
Discharge Summary Date of Service Sep 11, 2016. Discharge Summary Admission Date: Sep 10, 2016 at 18:32 Discharge Date: Sep 11, 2016 Discharge Disposition: Home Principal Diagnosis: CHEST PAIN UNCONTROLLED HTN Secondary Diagnoses/Problems: irritable bowel syndrome, Lyme disease with Collazo's palsy, hypertension, chronic kidney disease stage III, lumbar spinal stenosis, depression, and bullous pemphigoid Procedures: CTA CHEST: 1. No pulmonary emboli identified. 2. No consolidation to suggest pneumonia. 3. Interval development of mild bilateral axillary lymphadenopathy. The nodes are mildly enlarged with thickened cortex but each node has a fatty hilum. This finding is nonspecific and a follow-up chest CT in 3 months is recommended. 4. Multiple subacute posterior right-sided rib fractures. Numerous old bilateral rib fractures. No pneumothorax. MRI BRAIN: 1. No acute intracranial findings. 2. Postcontrast images moderately compromised by motion artifact but no intracranial masses or pathologic enhancement identified. 3. Unremarkable MRI of the brain. ECHO: * The left ventricle is normal in size. * There is mild concentric left ventricular hypertrophy. * The left ventricular wall motion is normal. * The aortic valve appears trileaflet with mild to moderate leaflet calcification. Congentially abnormal valve not completely excluded. * No hemodynamically significant valvular aortic stenosis. * Grade I diastolic dysfunction, (abnormal relaxation pattern). * There is no pericardial effusion. Consultations: CARDIOLOGY Medication Reconciliation New Medications: Lisinopril (Lisinopril) 10 Mg Tab 10 MG PO DAILY, #30 2 Refills Continued Medications: Alendronate Sodium (Fosamax) 70 Mg Tab 70 MG PO WK, TAB TAKE THIS MEDICATION EVERY MONDAY Amlodipine (Norvasc) 5 Mg Tab 5 MG PO DAILY, TAB Bupropion Hcl (Wellbutrin Sr) 200 Mg Tabcr 200 MG PO BID Cholecalciferol (Vitamin D3) 2,000 Unit Cap 2000 INTER.UNIT PO DAILY, CAP Cyanocobalamin (Vitamin B-12) 1,000 Mcg Tab 1000 MCG PO DAILY, TAB Dicyclomine HCl (Dicyclomine HCl) 20 Mg Tab 20 MG PO QID Docusate Sodium (Colace) 100 Mg Cap 1 CAP PO BID for 15 Days, #30 CAP Duloxetine HCl (Cymbalta) 30 Mg Cap 30 MG PO DAILY, 2 Refills Hydrocodone/Acetaminophen 5MG/325MG ([place] 5MG/325MG) Tab 1-3 TABS PO Q6H PRN for Pain Miconazole Nitrate (Topical) (Triple Paste Af) 2 % Oin 1 APPLN TOP UD APPLY DIRECTED TO COCCYX Hob[place] 3 Fatty Acids-Hobson 6 Fa ([place]obson 3-6-9 Complex) 1 Cap Cap 1 CAP PO DAILY Triamcinolone Acet (Aristocort 0.1%) 240 Appln/80 Gm Cr 1 APPLN TOP BID APPLY TO ARMS AND LEGS DIRECTED Discontinued Medications: Meloxicam (Mobic) 7.5 Mg Tab 1 TAB PO DAILY for 30 Days, #30 TAB 2 Refills Admission Information HPI (per Admitting provider): This is a 61-year-old female with a past medical history significant for irritable bowel syndrome, Lyme disease with Collazo's palsy, hypertension, chronic kidney disease stage III, lumbar spinal stenosis, depression, and bullous pemphigoid, presents with chest pain. The patient says she was taking care of her mom yesterday when she started to notice retrosternal chest pain, 10/10 in severity and she went and laid down for 1 hour and the pain subsided. Again in the morning when she woke up, again she developed about 5/10 in severity of sharp chest pain and also she felt numb in her left hand. She could not move or left hand and then she decided to come to the ER. In the ER, initial workup was negative. She can move her left hand now, but still feels some soreness in her fingers. Denies any shortness of breath. No sweating. No nausea. Has some headache and some blurred vision. No dizziness. No cough, no fever, no chills, and no abdominal pain. Normal bowel and bladder movements. Appetite is okay. Ambulation is okay. Currently resting comfortably. Blood pressure seems to be high. The patient says her blood pressure is not well controlled and she checks her blood pressure over the morning and evening and notifies her blood pressure to her family doctor. Physical Exam (per Admitting): GENERAL: The patient is morbidly obese, not in distress. VITAL SIGNS: Temperature 36.7, pulse 89, respiratory rate 17, blood pressure 170/86, and oxygen 95%. HEENT: No pallor, no icterus. Pupils equal, round, and react to light. NECK: No JVD, no neck masses, no carotid bruits. CARDIOVASCULAR: S1 and S2 heard, regular rate and rhythm, no murmur, no gallop. RESPIRATORY SYSTEM: Clear to auscultation bilaterally. No wheezing and no crackles. ABDOMEN: Soft. Bowel sounds present. Nontender. No distention. CENTRAL NERVOUS SYSTEM: Cranial nerves II-XII grossly intact. Nonfocal. EXTREMITIES: No edema and no erythema Hospital Course 1. Chest pain and left hand numbness. serial CE negative ekg unremarkable echo mild LVH otherwise unremarkable asymptomatic today seen by cardiology and appreciate inputs plan for out patient stress test with PCP referral. 2. Possible transient ischemic attack versus cerebrovascular accident. The patient also had left hand numbness and could not move her hand when she presented to the ER, but since then it has improved. CT head AND MRI head unremarkable. 3. Hypertension, uncontrolled. recently her lisinopril 20mg daily was stopped post back surgery in [place] as she developed hypotension and EDYTA.PCP started on Norvasc. Patient says she was on lisinopril for two years. Will continue home Norvasc. Will restart lisinopril 10mg daily and close followup width pcp. f/u lab: bmp in 1-2 weeks with PCP> 4. Depression, continue the Cymbalta and bupropion. 5. Chronic back pain, continue home pain medications. 6. Morbid obesity. nocturnal pulse ox study requires oxygen while sleeping. Needs sleep study as an outpatient. 7. Chronic kidney disease, stage III. Baseline creatinine around 1.4. We will follow the labs. discharged home Total time spent on discharge = 35MINUTES This includes examination of the patient, discharge planning, medication reconciliation, and communication with other providers. Discharge Instructions Discharge Instructions Date of Service Sep 11, 2016. Admission Reason for Admission: Chest Pain Discharge Discharge Diagnosis / Problem: CHEST PAIN, UNCONTROLLED HTN Discharge Goals Goal(s): Decrease discomfort, Improve function Activity Recommendations Activity Limitations: resume your previous activity . Instructions / Follow-Up Instructions / Follow-Up FOLLOWUP WITH FAMILY DOCTOR ON August AT 11:10PM. BLOOD PRESSURE FOLLOWUP WITH FAMILY DOCTOR. OUT PATIENT STRESS TEST WITH FAMILY DOCTOR REFERRAL. LAB: BMP IN 1-2 WEEKS RESTARTING ON LISINOPRIL AND FOLLOW RESULTS WITH FAMILY DOCTOR. TO STOP MELOXICAM AT CAN CAUSE KIDNEY FAILURE, GASTRIC ULCERS AND HEART ATTACKS. Current Hospital Diet Patient's current hospital diet: AHA Diet (Heart Healthy) Discharge Diet Recommended Diet: AHA Diet (Heart Healthy), Diabetes Type 2 Diet Pending Studies Studies pending at discharge: no Laboratory Results Hemoglobin A1c Test 09/11/16 05:12 Range/Units Lipid Panel Test 09/11/16 05:12 Range/Units Triglycerides Level 155 H 0-150 mg/dl Cholesterol Level 148 0-200 mg/dl HDL Cholesterol 37 mg/dl Cholesterol/HDL Ratio 4.0 LDL Cholesterol, Calculated 80 mg/dl Medical Emergencies . Who to Call and When: Medical Emergencies: If at any time you feel your situation is an emergency, please call 911 immediately. . Non-Emergent Contact Non-Emergency issues call your: Primary Care Provider . . "Provider Documentation" section prepared by Jean Carlos Cheng. . VTE Core Measure Inpt VTE Proph given/why not?: SCD's
[2016-09-12 06:59] LABS: ESTIMATED AVERAGE GLUCOSE 100 mg/dl; HA1C FLAG Normal (Normal)
--- NOTE | 2016-09-12 07:00 | CARDIOLOGY CONSULTATION ---
DATE OF CONSULTATION: 09/11/2016 REFERRING PHYSICIAN: Dr. Cheng. PRIMARY CARE PHYSICIAN: Dr. Marcus Talavera. INDICATIONS: Chest pain. HISTORY OF PRESENT ILLNESS: The patient is a 61-year-old female with complex history which includes longstanding hypertension, chronic stage III renal insufficiency, morbid obesity, pemphigus vulgaris and recent complications of a fall with rib fractures and compression fracture of T7. The patient has undergone surgical repair of T7 fracture in July of 2016. Postoperative course notable for transient renal insufficiency with resultant discontinuation of CONNOR inhibitor. The patient presents this admission with notable issues including ongoing pain since hospital discharge in July with back pain and discomfort resulting in ER presentation last week. The patient presents now having developed episodes of sharp jabbing pain in the mid substernal area as well as numbness in the left forearm, resulting in concern and ER presentation per her history. She has had no further discomfort since hospitalization despite no intervention. Initial EKGs are normal, as was initial cardiac enzyme. Blood pressures have been elevated since admission. She is currently comfortable and denies any current chest pain. Has been having "a lot of indigestion." Notes no fevers, chills or sweats. Has been having headaches, notes no acute visual changes. Notes no melena, hematochezia, dysuria or hematuria. Notes no cord or Homans sign in the lower extremities. Appetite has been generally good. Weight has been stable. ALLERGIES: NOTED TO BE IBUPROFEN AND EGGS. MEDICATIONS: Prior to hospitalization were Fosamax 70 mg weekly, amlodipine 5 mg p.o. q. day, Wellbutrin 200 mg b.i.d., cholecalciferol 2000 units q. day, vitamin B12 1000 units q. day, dicyclomine 20 mg q.i.d., Colace 100 mg b.i.d., Cymbalta 30 mg p.o. q. day, meloxicam p.r.n., omega-3 fish oils, hydrocodone p.r.n. pain. PAST SURGICAL HISTORY: Notable for what is described, T7 kyphoplasty. FAMILY HISTORY: Notable for heart failure in father, aortic valve disease in mother. SOCIAL HISTORY: The patient resides in [place]. She previously worked at [employer]. She is a nonsmoker x20 years. She uses no alcoholic beverages, is moderately active about her home and caring for her mother. PHYSICAL EXAMINATION: VITAL SIGNS: Heart rate is 80, blood pressure is 151/82. HEENT: Normocephalic, atraumatic. Nares without discharge. Throat was clear. NECK: Supple without thyromegaly, lymphadenopathy. There is no jugular venous distention. There are no carotid bruits. LUNGS: Clear with mildly diminished breath sounds diffusely. CARDIOVASCULAR: Regular with normal S1, S2. There is a grade 2/6 systolic murmur heard throughout the precordium. There is no diastolic murmur. ABDOMEN: Obese, soft, nontender. There is no palpable hepatosplenomegaly. There is no hepatojugular reflux. EXTREMITIES: Without cyanosis or clubbing. There is no palpable cord or Homans sign. There is no edema. There are intact distal pulses. NEUROLOGIC: The patient is answering questions, moving extremities. LABORATORY DATA: Laboratory studies on admission, D-dimer is elevated. PT is normal. Troponin was normal at less than 0.015. AST and ALT are normal. Sodium is 143, potassium is 4.2, chloride 111, bicarb 28, BUN 20, creatinine 1.3, glucose is 103. Cholesterol is 148 with an LDL of 80 and HDL of 37 on no medication. White cell count 7.0, hemoglobin is 10.9, platelet count is 223. Chest x-ray revealed no acute infiltrates or edema. CT scan of the chest revealed no evidence of pulmonary emboli or pneumonia. EKG reveals sinus rhythm, normal tracing, rate 81 with no evolution on 2 serial changes. Echocardiogram demonstrates normal left ventricular systolic function without wall motion abnormality. There are calcific changes of a trileaflet aortic valve without stenosis and grade 1 diastolic dysfunction. IMPRESSION: A 61-year-old female admitted with atypical chest discomfort, sharp jabbing without associated signs or symptoms of ischemia by enzyme or EKG changes, suspect noncardiac source of complaints. We would recommend treating hypertension. The patient had been on lisinopril at 20 mg per day up until time of recent back surgery with medication held due to transient hypotension postoperatively. Would resume lisinopril at lower dosing at 5 mg per day. Continue amlodipine. Would treat underlying possible GI complaints with chronic GI reflux issues. Discontinue Mobic used in addition to hydrocodone We would recommend outpatient stress nuclear imaging in order to be complete, though current findings do not suggest ischemic heart disease. MTDD
[2016-09-12] MEDS ORDERED: LISINOPRIL 5 MG TAB PO SCH (09:00)
[2016-09-17] MEDS ORDERED: ALENDRONATE SODIUM 70 MG TAB PO SCH (06:00)
--- NOTE | 2016-09-21 17:56 | EMERGENCY ROOM VISIT NOTE ---
History Report prepared by Mohamud: Bernadette Roth Under the Supervision of: Dr. Magalys Wheat D.O. First contact with patient: 14:20 Chief Complaint: CHEST PAIN Stated Complaint: NUMBNESS DOWN LEFT ARM, CHEST PAIN History of Present Illness The patient is a 61 year old female who presents to the Emergency Room with complaints of an episode of chest pain starting yesterday. The patient reports that the pain was very sharp and lasted 4 hours. She states that she didn't take anything for the pain, but reports that rest made the symptoms better. She reports that she has never had chest pain that sharp. She states that today she doesn't have the pain, but noticed difficulty with her left arm. The patient reports that she is experiencing numbness, weakness, and some pain starting five hours ago in her arm. The patient complains of diaphoresis, clamminess, a headache, nausea, loose stools, and some shortness of breath. She states that the clamminess and shortness of breath come round when she has the chest pain. The patient denies neck pain, abdominal pain, hematochezia, urinary symptoms, numbness in legs/face, weakness in legs/face and leg swelling. The patient states she has no cardiac history. She notes her father and mother both did though with congestive heart failure and a valve replacement. Source of History: patient Onset: yesterday Position: chest Quality: sharp Timing: other (episode) Modifying Factors (Relieving): rest Associated Symptoms: + headache, + diaphoresis, + SOB, + nausea, + weakness (left arm), + numbness (left arm), No neck pain, No abdominal pain, No hematochezia, No urinary symptoms Note: The patient complains of left arm pain, clamminess, and loose stools. The patient denies numbness in legs/face, weakness in legs/face and leg swelling. Review of Systems Pt denies headache, change in vision, fevers, chest pain, shortness of breath, nausea, vomiting, diarrhea, pain with urination, and melena. 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 (2) ARF (acute renal failure) (3) Chest pain (4) Depression (5) HTN (hypertension) Surgical Problems: (1) History of back surgery Family History Blood clots Diabetes mellitus FH: CHF (congestive heart failure) FH: CVA (cerebrovascular accident) Social History Smoking Status: Former Smoker Alcohol Use: none Drug Use: none Housing Status: lives with family Occupation Status: unemployed Current/Historical Medications Scheduled Alendronate Sodium (Fosamax), 70 MG PO WK Amlodipine (Norvasc), 5 MG PO DAILY Bupropion Hcl (Wellbutrin Sr), 200 MG PO BID Cholecalciferol (Vitamin D3), 2,000 INTER.UNIT PO DAILY Cyanocobalamin (Vitamin B-12), 1,000 MCG PO DAILY Dicyclomine HCl (Dicyclomine HCl), 20 MG PO QID Docusate Sodium (Colace), 1 CAP PO BID Duloxetine HCl (Cymbalta), 30 MG PO DAILY Lisinopril (Lisinopril), 10 MG PO DAILY Miconazole Nitrate (Topical) (Triple Paste Af), 1 APPLN TOP UD [place] 3 Fatty Acids-[place] 6 Fa ([place] 3-6-9 Complex), 1 CAP PO DAILY Triamcinolone Acet (Aristocort 0.1%), 1 APPLN TOP BID Scheduled PRN Hydrocodone/Acetaminophen 5MG/325MG ([place] 5MG/325MG), 1-3 TABS PO Q6H PRN for Pain Allergies Coded Allergies: Ibuprofen (Verified Allergy, Mild, stomach irritation, 09/10/16) Uncoded Allergies: eggs (Allergy, Unknown, reaction unknown, 01/29/15) Physical Exam Vital Signs Date Time Temp Pulse Resp B/P (MAP) Pulse Ox O2 Delivery O2 Flow Rate FiO2 09/10/16 18:06 93 20 09/10/16 17:36 89 17 95 09/10/16 17:35 189/86 09/10/16 16:31 151/82 09/10/16 16:09 83 14 97 09/10/16 16:03 83 09/10/16 16:01 166/84 09/10/16 15:39 80 15 96 09/10/16 15:31 156/80 09/10/16 15:12 160/91 09/10/16 14:39 86 19 96 09/10/16 14:31 135/92 09/10/16 14:27 94 09/10/16 14:25 173/97 09/10/16 14:11 36.7 95 20 161/85 97 Room Air Physical Exam GENERAL: alert, well appearing, well nourished, no distress, non-toxic EYE EXAM: normal conjunctiva, PERRL and EOM's grossly intact OROPHARYNX: no exudate, no erythema, lips, buccal mucosa, and tongue normal and mucous membranes are moist NECK: supple, no nuchal rigidity, no adenopathy, non-tender LUNGS: Clear to auscultation. Normal chest wall mechanics HEART: no murmurs, S1 normal and S2 normal, some reproducible pain over bilateral sternal borders ABDOMEN: abdomen soft, non-tender, normo-active bowel sounds, no masses, no rebound or guarding. BACK: Back is symmetrical on inspection and there is no deformity, no midline tenderness, no CVA tenderness. SKIN: no rashes and no bruising UPPER EXTREMITIES: upper extremities are grossly normal. No pain with palpitation in left upper extremity. LOWER EXTREMITIES: No pitting edema. NEURO EXAM: Normal sensorium, cranial nerves II-XII intact, normal speech, no gross weakness of legs. Hand rn urgent care weaker on left compared to right. Ultra sensory exam on left upper, no facial droop, no ataxia. Medical Decision & Procedures ER Provider Diagnostic Interpretation: Radiology results have been interpreted by the radiologist and reviewed by me. CT OF THE HEAD WITHOUT CONTRAST CLINICAL HISTORY: Left upper extremity weakness. COMPARISON STUDY: Head CT July 27, 2015. CT DOSE: 1031.97 mGy.cm TECHNIQUE: Helical axial images of the head were obtained without IV contrast. Automated exposure control was utilized for the study. A dose lowering technique was utilized adhering to the principles of ALARA. FINDINGS: No acute intracranial hemorrhage, midline shift or mass effect is present. Brain volume is normal. Ventricular system is normal. Basilar cisterns are patent. There are no extra-axial collections. There are no findings to suggest acute dural sinus thrombosis or acute territorial infarct. There are no significant calvarial abnormalities. Visualized portions of the sinuses and mastoid air cells are clear. A nasal septal defect is again noted. This was shown on prior exam. IMPRESSION: No acute intracranial findings. Electronically signed by: Ovidio Dunn M.D. 09/10/2016 3:25 PM Dictated Date/Time: 09/10/2016 3:22 PM CHEST ONE VIEW PORTABLE CLINICAL HISTORY: Chest pain. COMPARISON STUDY: Chest radiograph August 07, 2015. FINDINGS: Lung volumes are normal. Lungs are clear. No pneumothorax or pleural effusion is present. Cardiomediastinal silhouette is stable. There is no evidence of pulmonary edema. IMPRESSION: No acute cardiopulmonary findings. Electronically signed by: Ovidio Dunn M.D. 09/10/2016 2:48 PM Dictated Date/Time: 09/10/2016 2:[address] ANGIOGRAPHY OF THE CHEST, PULMONARY EMBOLUS PROTOCOL CLINICAL HISTORY: Chest pain and elevated d-dimer. COMPARISON STUDY: Chest CT August 18, 2013 and chest radiograph performed earlier today. TECHNIQUE: Following IV administration of 94 mL of [id number]-320, helical axial images of the chest were obtained utilizing the pulmonary embolus protocol. Maximal intensity projections and sagittal and coronal reformats were viewed on an independent 3D workstation. IV contrast was administered without complication. A dose lowering technique was utilized adhering to the principles of ALARA. CT DOSE: 671.37 mGy.cm FINDINGS: No pulmonary emboli are identified. The heart is mildly enlarged. There is no thoracic aortic dissection. No enlarged mediastinal or hilar lymph nodes are present. There has been interval development of mild bilateral axillary lymphadenopathy. An index left axillary lymph node measures 2.3 x 1.6 cm. An index right axillary lymph node measures 1.7 x 1.4 cm. The right lobe of the thyroid gland is asymmetrically enlarged. There may be a 2.7 cm right lobe thyroid nodule. There could be a few smaller thyroid nodules. A right adrenal adenoma is unchanged. There are multiple old bilateral rib fractures. In addition, there are several subacute posterior right-sided rib fractures. There is no pneumothorax. There is no consolidation to suggest pneumonia. There is no pleural effusion. Groundglass opacities reflect atelectasis. An old T7 compression fracture status post vertebral augmentation is noted. IMPRESSION: 1. No pulmonary emboli identified. 2. No consolidation to suggest pneumonia. 3. Interval development of mild bilateral axillary lymphadenopathy. The nodes are mildly enlarged with thickened cortex but each node has a fatty hilum. This finding is nonspecific and a follow-up chest CT in 3 months is recommended. 4. Multiple subacute posterior right-sided rib fractures. Numerous old bilateral rib fractures. No pneumothorax. Electronically signed by: Ovidio Dunn M.D. 09/10/2016 5:59 PM Dictated Date/Time: 09/10/2016 5:48 PM Laboratory Results Test 09/10/16 14:54 Prothrombin Time 10.7 SECONDS (9.0-12.0) Prothromb Time International Ratio 1.0 (0.9-1.1) D-Dimer 1310 ug/L FEU (0-500) Total Bilirubin 0.3 mg/dl (0.2-1) Aspartate Amino Transf (AST/SGOT) 12 U/L (15-37) Alanine Aminotransferase (ALT/SGPT) 18 U/L (12-78) Alkaline Phosphatase 90 U/L (45-117) Pro-B-Type Natriuretic Peptide 488 pg/ml (0-900) Total Protein 6.4 gm/dl (6.4-8.2) Albumin 3.1 gm/dl (3.4-5.0) Globulin 3.3 gm/dl (2.5-4.0) Albumin/Globulin Ratio 0.9 (0.9-2) Laboratory results per my review. Medications Administered Medications (Trade) Dose Ordered Sig/Sukhdeep Route Start Time Stop Time Status Last Admin Dose Admin Aspirin/Aluminum/ Magnesium/Ca Carb (Ascriptin Tab) 325 mg NOW STAT PO 09/10/16 18:07 09/10/16 18:09 DC 09/10/16 18:16 325 MG Acetaminophen/ Hydrocodone Bitart ([place] 5/325 Tab) 1 tab Q6H PRN PO 09/10/16 18:30 09/11/16 14:53 DC 09/11/16 12:16 1 TAB ECG Indication: chest pain Rate (beats per minute): 88 Rhythm: sinus rhythm (88) Findings: no acute ischemic change, no ectopy, other (normal axis, normal intervals, low voltage throughout) ED Course 1422: The patient was evaluated in room C10. A complete history and physical exam was performed. 180: Ordered Ascriptin Tab 325 mg PO. 180: I reevaluated the patient and her arm is totally back to normal. She no longer has numbness, weakness or chest pain. I notified her of her test results. 1811: I reviewed the patient's case with Dr. Cheng. Dr. Cheng will evaluate the patient for further management. Medical Decision Differential diagnosis: Etiologies such as cardiac ischemia, aortic dissection, pulmonary embolism, pneumonia, pneumothorax, musculoskeletal, infections, pericarditis, myocarditis , esophageal rupture, gastrointestinal, as well as others were entertained. Unclear etiology of patient's multiple symptoms. Initial description sounded more the left arm pain and discomfort was related to chest pain. However given mild appreciable weakness, consideration for other etiologies was given. CAT scan of patient's head did not show any acute stroke, however patient with multiple risk factors for both cardiac disease as well as stroke. Patient symptoms here completely resolved and patient had normal strength of the left upper extremity. Patient given an aspirin as a precaution for both ACS as well as possible CVA. Labs otherwise reassuring. Patient with mild renal insufficiency, likely secondary to medications dehydration. Patient's vital signs otherwise stable. Doubt other vascular etiology, occult infectious etiology, hypertensive emergency. Patient aware of all results was agreeable with plan for admission for continued evaluation. Medication Reconcilliation Current Medication List: was personally reviewed by me Blood Pressure Screening Patient's blood pressure: Elevated blood pressure Blood pressure disposition: Referred to PCP Consults Time Called: 1809 Consulting Physician: Dr. Cheng Returned Call: 1811 I reviewed the patient's case with Dr. Cheng. Dr. Cheng will evaluate the patient for further management. Impression Primary Impression: Chest pain Additional Impressions: Weakness of left upper extremity Obesity Hypertension Scribe Attestation The scribe's documentation has been prepared under my direction and personally reviewed by me in its entirety. I confirm that the note above accurately reflects all work, treatment, procedures, and medical decision making performed by me. Departure Information Dispostion Being Evaluated By Hospitalist Prescriptions Lisinopril (Lisinopril) 10 Mg Tab 10 MG PO DAILY, #30 2 Refills Prov: Jean Carlos Cheng MD 09/11/16 Docusate Sodium (COLACE) 100 Mg Cap 1 CAP PO BID for 15 Days, #30 CAP Prov: Jean Carlos Cheng MD 09/10/16 Referrals Marcus Talavera D.OEdie (PCP) Patient Instructions My [facility] Problem Qualifiers Primary Impression: Chest pain Chest pain type: other chest pain Qualified Codes: R07.89 - Other chest pain Additional Impressions: Obesity Obesity type: due to excess calories Obesity classification: unspecified obesity classification Serious obesity comorbidity presence: without serious comorbidity Qualified Codes: E66.09 - Other obesity due to excess calories Hypertension Hypertension type: essential hypertension Qualified Codes: I10 - Essential ( primary) hypertension
== END 2016-09-11 14:52 | disposition home or self-care (01) ==
LOC: C.EDB 14:10 → C.MED 18:32 → ENRESERV 18:59
PROVIDERS: ADMIT Internal Medicine; ATTEND Internal Medicine
DX: R07.89 Other chest pain (principal); I12.9 Hypertensive chronic kidney disease with stage 1 through stage 4 chronic kidney disease, or unspecified chronic kidney disease; N18.3 Chronic kidney disease, stage 3 (moderate); K58.9 Irritable bowel syndrome, unspecified; F32.9 Major depressive disorder, single episode, unspecified; L12.0 Bullous pemphigoid; M48.06 Spinal stenosis, lumbar region; E66.01 Morbid (severe) obesity due to excess calories; Z79.899 Other long term (current) drug therapy; G89.29 Other chronic pain; M54.9 Dorsalgia, unspecified; Z87.891 Personal history of nicotine dependence

== ENCOUNTER 2016-11-13 17:26 | Emergency (ER) | payer OTHER ==
[~2016-11-13] VITALS: Ht 167.6 cm; Wt 139.8 kg
[~2016-11-13 17:26] MED LIST changes: -CYCL10TA6 PO; +LISI-461 PO; -OMEG10007 PO; -OXYC1TAB3 PO; -VNTHFA/IN INH
[2016-11-13 17:30] VITALS: TEMP 36.9; Ht 167.6 cm; Wt 139.8 kg
[2016-11-13] MEDS ORDERED: DOXY100C2 PO (17:50)
[2016-11-13] MEDS ORDERED: NTRGSL/4 UT (17:50)
[2016-11-13] MEDS ORDERED: ACETAMINOPHEN 500 MG TAB PO STA (18:01)
--- NOTE | 2016-11-13 18:02 | EMERGENCY ROOM VISIT NOTE ---
History Report prepared by Mohamud: Osiris Rollins Under the Supervision of: Dr. Magalys Wheat D.O. First contact with patient: 17:48 Chief Complaint: CHEST PAIN Stated Complaint: CHEST PAIN, HX HEART CATH 11/07([place]) Nursing Triage Summary: pt to the ED with c/o chest pain while walking her dog, she states its sharp and on the left side she states she went into the house and took a nitro and waited a while and then took another and then c/o of a SUE History of Present Illness The patient is a 61 year old female who presents to the Emergency Room with complaints of intermittent left-sided chest pain beginning today. She reports that the pain is sharp and lasts for more than 5 minutes. She states that she had 3 episodes of this pain today, the first of which happened when she was walking her dog. The patient reports taking Nitroglycerin today and that it helped temporarily, the pain came back, and she took a second pill. She states that her blood pressure was also high today. Patient states she started doing more lifting yesterday and today than she was supposed to according to her instructions following the catheterization. The patient states that she had a stress test done due to some atypical chest pain previously and that it was abnormal. Six days ago, the patient had a heart catheterization done but did not have stents placed. She states that she has never had stents placed. The patient reports falling 2 weeks ago and that she bumped her head. Pt denies headache, change in vision, fevers, nausea, vomiting, diarrhea, pain with urination, and melena. States no pain currently. Records obtained from recent catheterization on 11/07/2016: Conclusion in catheterization report state coronary arteries have diffuse moderate irregularities. No interventions performed, no complications recorded. Source of History: patient Onset: today Position: chest (left) Quality: sharp Timing: other (3 episodes today ) Associated Symptoms: No fevers, No chills, No headache, No nausea, No vomiting, No melena, No diarrhea Review of Systems See HPI for pertinent positives & negatives. A total of 10 systems reviewed and were otherwise negative. 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 (2) ARF (acute renal failure) (3) Chest pain (4) Depression (5) HTN (hypertension) Surgical Problems: (1) History of back surgery Family History Blood clots Diabetes mellitus FH: CHF (congestive heart failure) FH: CVA (cerebrovascular accident) Social History Smoking Status: Former Smoker Alcohol Use: none Drug Use: none Housing Status: lives with family Occupation Status: unemployed Current/Historical Medications Scheduled Alendronate Sodium (Fosamax), 70 MG PO WK Amlodipine (Norvasc), 5 MG PO DAILY Bupropion Hcl (Wellbutrin Sr), 200 MG PO BID Cholecalciferol (Vitamin D3), 2,000 INTER.UNIT PO DAILY Cyanocobalamin (Vitamin B-12), 1,000 MCG PO DAILY Dicyclomine HCl (Dicyclomine HCl), 20 MG PO QID Doxycycline Hyclate (Vibramycin), 100 MG PO BID Duloxetine HCl (Cymbalta), 30 MG PO DAILY Lisinopril (Lisinopril), 10 MG PO DAILY Miconazole Nitrate (Topical) (Triple Paste Af), 1 APPLN TOP UD Nitroglycerin (Nitrostat), 0.4 MG UT PRN [place] 3 Fatty Acids-[place] 6 Fa ([place] 3-6-9 Complex), 1 CAP PO DAILY Triamcinolone Acet (Aristocort 0.1%), 1 APPLN TOP BID Scheduled PRN Hydrocodone/Acetaminophen 5MG/325MG ([place] 5MG/325MG), 1 TABS PO Q6H PRN for Pain Allergies Coded Allergies: Egg (Verified Allergy, Unknown, GI SYMPTOMS, 11/13/16) Ibuprofen (Verified Adverse Reaction, Mild, stomach irritation, 11/13/16) Physical Exam Vital Signs Date Time Temp Pulse Resp B/P (MAP) Pulse Ox O2 Delivery O2 Flow Rate FiO2 11/13/16 20:34 79 18 176/77 96 11/13/16 19:38 93 Room Air 11/13/16 19:38 81 20 166/85 96 Room Air 11/13/16 18:51 83 20 151/74 96 Room Air 11/13/16 18:06 84 11/13/16 17:30 36.9 95 18 166/81 96 Room Air Physical Exam GENERAL: alert, obese, well nourished, no distress, non-toxic EYE EXAM: normal conjunctiva, PERRL and EOM's grossly intact OROPHARYNX: no exudate, no erythema, lips, buccal mucosa, and tongue normal and mucous membranes are moist NECK: supple, no nuchal rigidity, no adenopathy, non-tender LUNGS: Clear to auscultation. Normal chest wall mechanics, no w/r/r HEART: no murmurs, S1 normal and S2 normal CHEST: Some reproducible chest pain on the left chest wall and along the left sternal border. ABDOMEN: abdomen soft, non-tender, normo-active bowel sounds, no masses, no rebound or guarding.Right inguinal fold with a healing puncture sight consistent with recent cardiac catheterization. No surrounding erythema, no drainage or bleeding. Non-tender, no pulsatile mass, no obvious hernia. BACK: Back is symmetrical on inspection and there is no deformity, no midline tenderness, no CVA tenderness. SKIN: no rashes and no bruising UPPER EXTREMITIES: upper extremities are grossly normal. Nml pulses b/l. LOWER EXTREMITIES: No pitting edema. Nml pulses b/l. NEURO EXAM: Normal sensorium, cranial nerves II-XII [grossly] intact, normal speech, no [gross] weakness of arms, no [gross] weakness of legs. Gross sensation intact. Medical Decision & Procedures Laboratory Results 11/13/16 17:42 Red Blood Count 3.77, Mean Corpuscular Volume 90.7, Mean Corpuscular Hemoglobin 28.6, Mean Corpuscular Hemoglobin Concent 31.6, Mean Platelet Volume 9.9, Neutrophils (%) (Auto) 54.3, Lymphocytes (%) (Auto) 30.0, Monocytes (%) (Auto) 11.7, Eosinophils (%) (Auto) 3.1, Basophils (%) (Auto) 0.6, Neutrophils # (Auto ) 4.33, Lymphocytes # (Auto) 2.39, Monocytes # (Auto) 0.93, Eosinophils # (Auto ) 0.25, Basophils # (Auto) 0.05 11/13/16 17:42 Test 11/13/16 17:42 White Blood Count 7.97 K/uL (4.8-10.8) Red Blood Count 3.77 M/uL (4.2-5.4) Hemoglobin 10.8 g/dL (12.0-16.0) Hematocrit 34.2 % (37-47) Mean Corpuscular Volume 90.7 fL (80-100) Mean Corpuscular Hemoglobin 28.6 pg (25-34) Mean Corpuscular Hemoglobin Concent 31.6 g/dl (32-36) Platelet Count 278 K/uL (130-400) Mean Platelet Volume 9.9 fL (7.4-10.4) Neutrophils (%) (Auto) 54.3 % Lymphocytes (%) (Auto) 30.0 % Monocytes (%) (Auto) 11.7 % Eosinophils (%) (Auto) 3.1 % Basophils (%) (Auto) 0.6 % Neutrophils # (Auto) 4.33 K/uL (1.4-6.5) Lymphocytes # (Auto) 2.39 K/uL (1.2-3.4) Monocytes # (Auto) 0.93 K/uL (0.11-0.59) Eosinophils # (Auto) 0.25 K/uL (0-0.5) Basophils # (Auto) 0.05 K/uL (0-0.2) RDW Standard Deviation 44.5 fL (36.4-46.3) RDW Coefficient of Variation 13.5 % (11.5-14.5) Immature Granulocyte % (Auto) 0.3 % Immature Granulocyte # (Auto) 0.02 K/uL (0.00-0.02) Prothrombin Time 10.7 SECONDS (9.0-12.0) Prothromb Time International Ratio 1.0 (0.9-1.1) Anion Gap 9.0 mmol/L (3-11) Est Creatinine Clear Calc Drug Dose 72.9 ml/min Estimated GFR () 57.3 Estimated GFR (Non- 49.4 BUN/Creatinine Ratio 15.9 (10-20) Calcium Level 8.9 mg/dl (8.5-10.1) Total Bilirubin 0.3 mg/dl (0.2-1) Aspartate Amino Transf (AST/SGOT) 17 U/L (15-37) Alanine Aminotransferase (ALT/SGPT) 17 U/L (12-78) Alkaline Phosphatase 96 U/L (45-117) Troponin I < 0.015 ng/ml (0-0.045) Pro-B-Type Natriuretic Peptide 443 pg/ml (0-900) Total Protein 7.1 gm/dl (6.4-8.2) Albumin 3.4 gm/dl (3.4-5.0) Globulin 3.7 gm/dl (2.5-4.0) Albumin/Globulin Ratio 0.9 (0.9-2) Laboratory results per my review. Medications Administered Medications (Trade) Dose Ordered Sig/Sukhdeep Route Start Time Stop Time Status Last Admin Dose Admin Acetaminophen (Tylenol Tab) 1,000 mg NOW STAT PO 11/13/16 18:01 11/13/16 18:02 DC 11/13/16 18:09 1,000 MG Ketorolac Tromethamine (Toradol Inj) 15 mg NOW STAT IV 11/13/16 19:19 11/13/16 19:20 DC 11/13/16 19:32 15 MG ECG Indication: chest pain Rate (beats per minute): 83 Rhythm: normal sinus Findings: no acute ischemic change, no ectopy, other (normal axis, normal intervals ) ED Course 1752: The patient was evaluated in room C3. A complete history and physical exam was performed. 1800: Ordered Tylenol Tab 1,000 mg PO. 1918: Ordered Toradol Inj 15 mg IV. 1937: I rechecked the patient. She denies any recurrent episode. She ambulated without pain or discomfort. 1954: Upon reevaluation, the patient is feeling better. I discussed the findings and the treatment plan with the patient. She verbalizes agreement and understanding. She was discharged home. Medical Decision Differential diagnosis: Etiologies such as cardiac ischemia, aortic dissection, pulmonary embolism, pneumonia, pneumothorax, musculoskeletal, infections, pericarditis, myocarditis , esophageal rupture, gastrointestinal, as well as others were entertained. Pt well appearing here. Atypical intermittent pain at left sternal border, reproducible on exam. No episodes while in the ER. Given neg trop >8 hours after sx started and recent reassuring cardiac cath, doubt acs. Doubt dissection, pe, tamponade, effusion, perf, gi bleed. possible sx related to strenuous activity given pt admits to not following activity instructions post cath. Discussed with pt care for the cath site in her right groin also. Pt ambulated here without any recurrent sx and stable VS. Discussed f/u with her pcp and if sx persist, f/u with cardiology. Discussed sx to watch/return for, she verbalized understanding and was agreeable with plan. Medication Reconcilliation Current Medication List: was personally reviewed by me Blood Pressure Screening Patient's blood pressure: Elevated blood pressure Blood pressure disposition: Referred to PCP Impression Primary Impression: Chest pain Additional Impressions: Hypertension Obesity Scribe Attestation The scribe's documentation has been prepared under my direction and personally reviewed by me in its entirety. I confirm that the note above accurately reflects all work, treatment, procedures, and medical decision making performed by me. Departure Information Dispostion Home / Self-Care Referrals Marcus Talavera D.OEdie (PCP) Forms Call Back Authorization, HOME CARE DOCUMENTATION FORM, IMPORTANT VISIT INFORMATION Patient Instructions My [facility] Additional Instructions Please follow the instructions were given for after your cardiac catheterization. Please follow up with your family doctor as precaution. Please keep the site in your groin where the catheterization was started clean and dry and please cover with a Band-Aid. If you have any recurrent episodes of chest pain or pressure, develop trouble breathing, dizziness, vomiting, fevers, notice redness/swelling/drainage and the right groin, develop swelling of the legs, or you have any other new or concerning symptoms, please return the emergency room. Problem Qualifiers Primary Impression: Chest pain Chest pain type: unspecified Qualified Codes: R07.9 - Chest pain, unspecified Additional Impressions: Hypertension Hypertension type: essential hypertension Qualified Codes: I10 - Essential ( primary) hypertension Obesity Obesity type: unspecified obesity type Obesity classification: unspecified obesity classification Serious obesity comorbidity presence: without serious comorbidity Qualified Codes: E66.9 - Obesity, unspecified
[2016-11-13 18:07] LABS: BASO % 0.6 %; BASO ABS # 0.05 K/uL (0-0.2); COMPLETE YES; EOS % 3.1 %; HEMATOCRIT 34.2 % (37-47); IG% 0.3 %; LYMPH ABS # 2.39 K/uL (1.2-3.4); MEAN CELL VOLUME 90.7 fL (80-100); MEAN CORPUSCULAR HEMOGLOBIN 28.6 pg (25-34); MEAN CORPUSCULAR HGB CONC 31.6 g/dl (32-36); MEAN PLATELET VOLUME 9.9 fL (7.4-10.4); MONO % 11.7 %; NEUT % 54.3 %; PLATELET COUNT 278 K/uL (130-400); RED BLOOD COUNT 3.77 M/uL (4.2-5.4); WHITE BLOOD COUNT 7.97 K/uL (4.8-10.8)
[2016-11-13 18:13] LABS: PROTHROMBIN TIME (PATIENT) 10.7 SECONDS (9.0-12.0)
[2016-11-13 18:16] LABS: BUN/CREATININE RATIO 15.9 (10-20); CALCIUM 8.9 mg/dl (8.5-10.1); CREATININE 1.2 mg/dl (0.60-1.20); POTASSIUM 4.1 mmol/L (3.5-5.1)
[2016-11-13 18:21] LABS: ALB/GLOB RATIO 0.9 (0.9-2)
[2016-11-13] MEDS ORDERED: KETOROLAC TROMETHAMINE 30 MG/ML VIAL IV STA (19:19)
[2016-11-13 20:34] VITALS: BP 176/77; PULSE 79; O2SAT 96
== END 2016-11-13 20:36 | disposition home or self-care (01) ==
LOC: C.EDB 17:28 → C.EDC 20:36
DX: R07.9 Chest pain, unspecified (principal); I10 Essential (primary) hypertension; E66.9 Obesity, unspecified; Z85.89 Personal history of malignant neoplasm of other organs and systems; N17.9 Acute kidney failure, unspecified; F32.9 Major depressive disorder, single episode, unspecified; Z83.3 Family history of diabetes mellitus; Z82.49 Family history of ischemic heart disease and other diseases of the circulatory system; Z87.891 Personal history of nicotine dependence; Z79.899 Other long term (current) drug therapy

== ENCOUNTER 2017-04-26 13:48 | Emergency (ER) | payer OTHER ==
[~2017-04-26] VITALS: Ht 167.6 cm; Wt 135.7 kg
[~2017-04-26 13:48] MED LIST changes: +DOXY100C2 PO; +NTRGSL/4 UT
[2017-04-26 13:51] VITALS: BP 163/89; PULSE 95; TEMP 36.7; O2SAT 96; Ht 167.6 cm; Wt 135.7 kg
--- NOTE | 2017-04-26 14:34 | EMERGENCY ROOM VISIT NOTE ---
History First contact with patient: 14:03 Chief Complaint: HEAD INJURY (MINOR) Stated Complaint: FELL-HIT HEAD History of Present Illness The patient is a 61 year old female who presents to the Emergency Room with complaints of a head injury. The patient reports that this morning, she tripped over her dog and struck the front of her head, nose and chin on a bookshelf. She also believes that she may have struck the front of her neck, as she now has pain when she swallows. There was no loss of consciousness. She reports pain in her head described as a dull pain and rated 7/10. There is some associated lightheadedness. She denies nausea/vomiting, numbness, weakness or confusion. She takes a baby aspirin daily but no other anticoagulants. The fall was mechanical and not associated with any dizziness or lightheadedness. Review of Systems A complete 10 point review of systems was reviewed with the patient with pertinent positives and negatives as per history of present illness. All else were negative. 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 (2) ARF (acute renal failure) (3) Chest pain (4) Depression (5) HTN (hypertension) Surgical Problems: (1) History of back surgery Family History Blood clots Diabetes mellitus FH: CHF (congestive heart failure) FH: CVA (cerebrovascular accident) Social History Smoking Status: Former Smoker Alcohol Use: none Drug Use: none Housing Status: lives with family Occupation Status: unemployed Current/Historical Medications Scheduled Alendronate Sodium (Fosamax), 70 MG PO WK Amlodipine (Norvasc), 5 MG PO DAILY Bupropion Hcl (Wellbutrin Sr), 200 MG PO BID Cholecalciferol (Vitamin D3), 2,000 INTER.UNIT PO DAILY Cyanocobalamin (Vitamin B-12), 1,000 MCG PO DAILY Dicyclomine HCl (Dicyclomine HCl), 20 MG PO QID Doxycycline Hyclate (Vibramycin), 100 MG PO BID Duloxetine HCl (Cymbalta), 30 MG PO DAILY Lisinopril (Lisinopril), 110 MG PO DAILY Miconazole Nitrate (Topical) (Triple Paste Af), 1 APPLN TOP UD Nitroglycerin (Nitrostat), 0.4 MG UT PRN [place] 3 Fatty Acids-[place] 6 Fa ([place] 3-6-9 Complex), 1 CAP PO DAILY Triamcinolone Acet (Aristocort 0.1%), 1 APPLN TOP BID Scheduled PRN Hydrocodone/Acetaminophen 5MG/325MG ([place] 5MG/325MG), 1 TABS PO Q6H PRN for Pain Physical Exam Vital Signs Date Time Temp Pulse Resp B/P (MAP) Pulse Ox O2 Delivery O2 Flow Rate FiO2 04/26/17 13:51 36.7 95 18 163/89 96 Room Air Physical Exam VITALS: Vitals are noted on the nurse's note and reviewed by myself. Vital signs stable. GENERAL: This is a 61-year-old female, in no acute distress, nondiaphoretic, well-developed well-nourished. SKIN: There is ecchymosis and swelling to the anterior chin. No lacerations or abrasions. HEAD: Normocephalic atraumatic. EARS: External auditory canals clear, tympanic membranes pearly rice without erythema or effusion bilaterally. No hemotympanum. EYES: Pupils equal round and reactive to light and accommodation. Extraocular movements intact. MOUTH: Mucous membranes moist. Uvula midline. Airway patent. NECK: Supple without nuchal rigidity. Cervical spine is nontender. There is mild tenderness to the right anterior neck. HEART: Regular rate and rhythm without murmurs gallops or rubs. LUNGS: Clear to auscultation bilaterally without wheezes, rales or rhonchi. No retractions or accessory muscle use. MUSCULOSKELETAL: Strength 5/5 throughout. NEURO: Patient was alert and oriented to person place and time. No focal neurological deficits. Medical Decision & Procedures ER Provider Diagnostic Interpretation: HEAD WITHOUT CONTRAST (CT) IMPRESSION: 1. No acute intracranial abnormality or calvarial fracture. 2. 3.4 cm right parietal scalp hematoma. CT FACIAL BONES-MXILLOFAC WITHOUT IMPRESSION: No facial fractures identified. CT SOFT TISSUE NECK WITHOUT IMPRESSION: 1. Minimal soft tissue edema anterior to the inferior mandible 2. No evidence of posttraumatic neck hematoma 3. No evidence of airway compromise Medications Administered Medications (Trade) Dose Ordered Sig/Sukhdeep Route Start Time Stop Time Status Last Admin Dose Admin Acetaminophen (Tylenol Tab) 1,000 mg NOW STAT PO 04/26/17 14:57 04/26/17 14:58 DC 04/26/17 15:13 1,000 MG Medical Decision Differential diagnosis includes concussion, subdural hematoma, epidural hematoma , subarachnoid hemorrhage, neck injury, among others. The patient is a 61-year-old female who presents today complaining of head and neck pain after a fall. CT of the head and facial bones was unremarkable. CT of the soft tissue neck was performed to evaluate for the patient's anterior neck discomfort. This was negative for any acute findings. Patient is able to swallow without difficulty. Her pain was treated with Tylenol. Conservative measures were discussed. She will follow-up with her primary care provider for further evaluation. She verbalized understanding of my assessment and treatment plan and was discharged home in good condition. Head Trauma GCS Score: 15 Blood Pressure Screening Patient's blood pressure: Elevated blood pressure Blood pressure disposition: Elevated BP felt to be situational Impression Primary Impression: Closed head injury Departure Information Dispostion Home / Self-Care Condition GOOD Referrals Marcus Talavera D.OEdie (PCP) Patient Instructions My [facility] Additional Instructions You have been treated in the Emergency Department for a Closed Head Injury. CT Scan of your head/brain demonstrated no acute bleeding or other abnormalities. This does not completely rule out the risk for future damage to the brain. For pain control, you can use the following [id number] medicines (if >12 yo): - Regular strength (325mg/tab) Tylenol (acetaminophen) 2 tabs every 4-6 hours as needed. Do not exceed 12 tablets in a 24 hour period. Avoid taking more than 4 grams (4000 mg) of Tylenol per day. This includes any other sources of acetaminophen you may take on a regular basis. You should relax in a quiet, dark place for the rest of the day. Avoid any possible triggers including: cigarette smoke, caffeine, nicotine, chocolate, wine, beer, loud noises or music, or bright lights. You should schedule a follow-up appointment in 2-3 days with your Primary Care Provider or established Neurologist for further evaluation and treatment of your Headache. Return to the Emergency Department if your current symptoms worsen despite treatment course outlined above, or if you develop any of the following symptoms : intractable pain despite aforementioned treatment course, visual disturbances , loss of vision, unilateral weakness or facial drooping, slurring of speech, loss of coordination, or loss of consciousness. Problem Qualifiers Primary Impression: Closed head injury Encounter type: initial encounter Qualified Codes: S09.90XA - Unspecified injury of head, initial encounter
--- NOTE | 2017-04-26 14:50 | DIAGNOSTIC IMAGING REPORT ---
HEAD WITHOUT CONTRAST (CT) CLINICAL HISTORY: 61 years-old Female with head injury, fall. Acute head injury status post fall TECHNIQUE: Multiple axial CT images of the head were obtained without contrast. A dose lowering technique was utilized adhering to the principles of ALARA. CT DOSE: 823.94 mGycm COMPARISON: CT head 09/08/2016 and brain MRI 09/10/2016. FINDINGS: No acute intracranial hemorrhage, midline shift, intracranial mass, hydrocephalus, territorial ischemia or abnormal extra-axial collection. The calvarium is intact. The paranasal sinuses, mastoid air cells, and middle ear cavities are clear. Right parietal scalp soft tissue hematoma measures 3.4 x 0.7 cm. Mild right for head soft tissue swelling also noted. No opaque foreign body. Orbits are unremarkable. IMPRESSION: 1. No acute intracranial abnormality or calvarial fracture. 2. 3.4 cm right parietal scalp hematoma. The above report was generated using voice recognition software. It may contain grammatical, syntax or spelling errors. Electronically signed by: Felipe Abad M.D. 04/26/2017 2:48 PM Dictated Date/Time: 04/26/2017 2:45 PM
--- NOTE | 2017-04-26 14:51 | DIAGNOSTIC IMAGING REPORT ---
CT FACIAL BONES-MXILLOFAC WITHOUT CT DOSE: 748.38 mGycm CLINICAL HISTORY: Facial pain status post trauma COMPARISON STUDY: July 27, 2015 TECHNIQUE: Helical images were acquired in the transverse plane. The study was reviewed and analyzed on the independent 3-D workstation. A dose lowering technique was utilized adhering to the principles of ALARA. The pterygoid plates appear intact. The zygomatic arches appear intact. The globes appear intact. There is no evidence of orbital emphysema. The orbital jimenez and floor appear intact. The mandibular condyles appear intact. IMPRESSION: No facial fractures identified. Electronically signed by: Harjit Turner M.D. 04/26/2017 2:49 PM Dictated Date/Time: 04/26/2017 2:46 PM
--- NOTE | 2017-04-26 14:56 | DIAGNOSTIC IMAGING REPORT ---
CT SOFT TISSUE NECK WITHOUT CT DOSE: 505.73 mGycm CLINICAL HISTORY: Right anterior neck pain. Trauma. Difficulty swallowing. TECHNIQUE: Unenhanced images were obtained through the soft tissue neck. A dose lowering technique was utilized adhering to the principles of ALARA. COMPARISON STUDY: None. FINDINGS: The visualized portions lung apices are unremarkable. There is a 1 cm thyroid nodule versus beam hardening artifact. No salivary gland masses are visualized. No mucosal space masses are visualized in this noncontrast study. There is no evidence of pathologic adenopathy. There is no evidence of airway compromise. No hematomas are visualized. There is minimal soft tissue edema inferior to the anterior mandible There is a tiny right-sided laryngeal diverticulum IMPRESSION: 1. Minimal soft tissue edema anterior to the inferior mandible 2. No evidence of posttraumatic neck hematoma 3. No evidence of airway compromise Electronically signed by: Harjit Turner M.D. 04/26/2017 2:54 PM Dictated Date/Time: 04/26/2017 2:50 PM
[2017-04-26] MEDS ORDERED: ACETAMINOPHEN 500 MG TAB PO STA (14:57)
[2017-04-26] MEDS ORDERED: LISI-461 PO (15:26)
== END 2017-04-26 15:45 | disposition home or self-care (01) ==
LOC: C.EDB 13:49 → C.EDA 15:45
DX: S09.90XA Unspecified injury of head, initial encounter (principal); W22.8XXA Striking against or struck by other objects, initial encounter; Y92.019 Unspecified place in single-family (private) house as the place of occurrence of the external cause; N17.9 Acute kidney failure, unspecified; F32.9 Major depressive disorder, single episode, unspecified; I10 Essential (primary) hypertension; Z85.858 Personal history of malignant neoplasm of other endocrine glands; Z83.3 Family history of diabetes mellitus; Z82.49 Family history of ischemic heart disease and other diseases of the circulatory system; Z87.891 Personal history of nicotine dependence; Z79.899 Other long term (current) drug therapy

== ENCOUNTER 2017-04-28 14:54 | Emergency (ER) | payer OTHER ==
[~2017-04-28] VITALS: Ht 167.6 cm; Wt 135.6 kg
[2017-04-28 14:56] VITALS: TEMP 36.6; Ht 167.6 cm; Wt 135.6 kg
[2017-04-28] MEDS ORDERED: ONDANSETRON 2MG ODT PO STA (15:25)
--- NOTE | 2017-04-28 15:37 | DIAGNOSTIC IMAGING REPORT ---
CT SCAN OF THE BRAIN WITHOUT IV CONTRAST CLINICAL HISTORY: Recent fall. Headache. COMPARISON STUDY: CT of the brain dated 04/26/2017. TECHNIQUE: Unenhanced axial CT scan of the brain is performed from the vertex to the skull base. A dose lowering technique was utilized adhering to the principles of ALARA. CT DOSE: 691.05 mGy.cm FINDINGS: Brain parenchyma: The brain parenchyma is normal in appearance. There is no hemorrhage, mass effect, or evidence of acute territorial ischemia by CT criteria. Nicholson-white matter is preserved. No extra-axial fluid collection is seen. Ventricles, sulci, cisterns: Normal in configuration. Intracranial vasculature: The visualized intracranial vasculature at the skull base is normal in appearance. Calvarium: The skeletal structures are osteopenic. There is no depressed calvarial fracture. Soft tissues: There is a small right parietal scalp contusion. Sinuses and mastoids: The visualized paranasal sinuses are clear. The mastoid air cells are well pneumatized. Orbits: The bony orbits are grossly intact. IMPRESSION: No acute intracranial abnormality. Electronically signed by: Jonah Farris M.D. 04/28/2017 3:36 PM Dictated Date/Time: 04/28/2017 3:34 PM
[2017-04-28] MEDS ORDERED: ONDA4TAB46 PO (15:57)
[2017-04-28 16:22] VITALS: BP 158/99; PULSE 87; O2SAT 96
--- NOTE | 2017-04-28 21:11 | EMERGENCY ROOM VISIT NOTE ---
History Report prepared by Mohamud: Cristino Katz Under the Supervision of: Dr. Yannick Barbosa D.O. First contact with patient: 15:00 Chief Complaint: FALL Stated Complaint: FALL MONDAY, WORSENING HEADACHES, REFFERED History of Present Illness The patient is a 61 year old female who presents to the Emergency Room with complaints of a constant/worsening headache that has been present since a traumatic fall that occurred on Monday at 0200 in the morning, over 2 days ago. The patient states that she suffered a fall when her puppy ran in front of her feet. She fell forward and hit her chin on a 3-shelf bookcase, and hit her forehead on a small step. She has had a headache since. She rates her current pain as a 9/10 in severity, and notes that it is localized to the front of her head. Her throat is hurting her as well, especially when she swallows. Her headache is making her nauseous. No neck pain. No paresthesias. The patient is taking Hydrocodone at night, which is the only time her pain is relieved. The patient is on Aspirin daily as a blood thinner. The patient denies any other change in vision, fevers, chest pain, shortness of breath, vomiting, diarrhea, pain with urination, and melena. Source of History: patient Onset: Over 2 days ago. Position: head (forehead) Symptom Intensity: 9/10 Timing: constant, worsening Modifying Factors (Relieving): other (Hydrocodone) Associated Symptoms: + sorethroat, + nausea, No vomiting Review of Systems See HPI for pertinent positives & negatives. A total of 10 systems reviewed and were otherwise negative. 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 (2) ARF (acute renal failure) (3) Chest pain (4) Depression (5) HTN (hypertension) Surgical Problems: (1) History of back surgery Family History Blood clots Diabetes mellitus FH: CHF (congestive heart failure) FH: CVA (cerebrovascular accident) Social History Smoking Status: Former Smoker Alcohol Use: none Drug Use: none Housing Status: lives with family Occupation Status: unemployed Current/Historical Medications Scheduled Alendronate Sodium (Fosamax), 70 MG PO WK Amlodipine (Norvasc), 5 MG PO DAILY Bupropion Hcl (Wellbutrin Sr), 200 MG PO BID Cholecalciferol (Vitamin D3), 2,000 INTER.UNIT PO DAILY Cyanocobalamin (Vitamin B-12), 1,000 MCG PO DAILY Dicyclomine HCl (Dicyclomine HCl), 20 MG PO QID Doxycycline Hyclate (Vibramycin), 100 MG PO BID Duloxetine HCl (Cymbalta), 30 MG PO DAILY Lisinopril (Lisinopril), 110 MG PO DAILY Miconazole Nitrate (Topical) (Triple Paste Af), 1 APPLN TOP UD Nitroglycerin (Nitrostat), 0.4 MG UT PRN [place] 3 Fatty Acids-[place] 6 Fa ([place] 3-6-9 Complex), 1 CAP PO DAILY Triamcinolone Acet (Aristocort 0.1%), 1 APPLN TOP BID Scheduled PRN Hydrocodone/Acetaminophen 5MG/325MG ([place] 5MG/325MG), 1 TABS PO Q6H PRN for Pain Ondansetron Hcl (Zofran), 4 MG PO TID PRN for Nausea Allergies Coded Allergies: Egg (Verified Allergy, Unknown, GI SYMPTOMS, 04/26/17) Ibuprofen (Verified Adverse Reaction, Mild, stomach irritation, 04/26/17) Physical Exam Vital Signs Date Time Temp Pulse Resp B/P (MAP) Pulse Ox O2 Delivery O2 Flow Rate FiO2 04/28/17 16:22 87 18 158/99 96 04/28/17 14:56 36.6 91 18 152/88 96 Room Air Physical Exam GENERAL: Sitting up in bed, alert, well appearing, well nourished, no distress, non-toxic EYE EXAM: normal conjunctiva. PERRL and EOM's grossly intact. OROPHARYNX: no exudate, no erythema, lips, buccal mucosa, and tongue normal and mucous membranes are moist HEAD: There is a contusion to the right forehead with bruising. There is a contusion to the anterior portion of the jaw-line with diffuse bruising, the skin is intact. NECK: supple, no nuchal rigidity, no adenopathy, non-tender LUNGS: Clear to auscultation. Normal chest wall mechanics HEART: no murmurs, S1 normal and S2 normal ABDOMEN: abdomen soft, non-tender, normo-active bowel sounds, no masses, no rebound or guarding. BACK: Back is symmetrical on inspection and there is no deformity, no midline tenderness, no CVA tenderness. SKIN: no rashes and no bruising UPPER EXTREMITIES: upper extremities are grossly normal. LOWER EXTREMITIES: No pitting edema. NEURO EXAM: Normal sensorium, cranial nerves II-XII intact, normal speech, no weakness of arms, no weakness of legs. No Drift. Gross sensation intact. GCS is 15. Medical Decision & Procedures ER Provider Diagnostic Interpretation: Radiology results as stated below per my review and the radiologist's interpretation: CT SCAN OF THE BRAIN WITHOUT IV CONTRAST CLINICAL HISTORY: Recent fall. Headache. COMPARISON STUDY: CT of the brain dated 04/26/2017. TECHNIQUE: Unenhanced axial CT scan of the brain is performed from the vertex to the skull base. A dose lowering technique was utilized adhering to the principles of ALARA. CT DOSE: 691.05 mGy.cm FINDINGS: Brain parenchyma: The brain parenchyma is normal in appearance. There is no hemorrhage, mass effect, or evidence of acute territorial ischemia by CT criteria. Nicholson-white matter is preserved. No extra-axial fluid collection is seen. Ventricles, sulci, cisterns: Normal in configuration. Intracranial vasculature: The visualized intracranial vasculature at the skull base is normal in appearance. Calvarium: The skeletal structures are osteopenic. There is no depressed calvarial fracture. Soft tissues: There is a small right parietal scalp contusion. Sinuses and mastoids: The visualized paranasal sinuses are clear. The mastoid air cells are well pneumatized. Orbits: The bony orbits are grossly intact. IMPRESSION: No acute intracranial abnormality. Electronically signed by: Jonah Farris M.D. 04/28/2017 3:36 PM Dictated Date/Time: 04/28/2017 3:34 PM Medications Administered Medications (Trade) Dose Ordered Sig/Sukhdeep Route Start Time Stop Time Status Last Admin Dose Admin Ondansetron HCl (Zofran Odt) 4 mg NOW STAT PO 04/28/17 15:25 04/28/17 15:26 DC 04/28/17 15:34 4 MG ED Course ED COURSE: Vital signs were reviewed and showed hypertensive vital signs. The patients medical record was reviewed The above diagnostic studies were performed and reviewed. ED treatments and interventions as stated above. 1501: The patient was evaluated in room C1B. A complete history and physical examination was performed. 1525: Ordered Zofran 4 mg PO. 1523: I checked on the patient at this time. She is doing well. 1556: Upon reevaluation, the patient is resting comfortable.I discussed my findings with the patient and she understands and agrees with the treatment plan. Based on the patients age, coexisting illnesses, exam and lab findings the decision to treat as an outpatient was made. The patient remained stable while under my care. The patient appeared well at the time of discharge. Medical Decision Differential Diagnosis includes but is not limited to headache, tension headache , cluster headache, migraine, subarachnoid hemorrhage, meningitis, mass, central venous thrombus, concussion, trauma and epidural/subdural hemorrhage. Patient is a 11-year-old female who presents the ER for a headache following a mechanical fall at 2 AM. Patient has had a headache persistently since then except when she takes hydrocodone. Headache is in the frontal region. She does have some mild nausea when the headache becomes bad. He takes no blood thinners. CT head was performed and was unremarkable again. She was able to ambulate without difficulty. She is otherwise neurologically intact. Discussed with the patient and she was updated at bedside. She was discharged follow-up with PCP as an outpatient for a concussion. Discussed with Pt concerning signs and symptoms to watch out for. Pt was instructed to follow up with their PCP and discussed with the patient their option to return to the ED at anytime for persistent or worsening symptoms. The appropriate anticipatory guidance and out-patient management, including indications for return to the emergency department, were explained at length to the patient and understood. Medication Reconcilliation Current Medication List: was personally reviewed by me Blood Pressure Screening Patient's blood pressure: Elevated blood pressure Blood pressure disposition: Referred to PCP Impression Primary Impression: Concussion Scribe Attestation The scribe's documentation has been prepared under my direction and personally reviewed by me in its entirety. I confirm that the note above accurately reflects all work, treatment, procedures, and medical decision making performed by me. Departure Information Dispostion Home / Self-Care Prescriptions Ondansetron Hcl (ZOFRAN) 4 Mg Tab 4 MG PO TID Y for Nausea, #30 TAB Prov: Yannick Barbosa, DO 04/28/17 Referrals Marcus Talavera, D.OEdie (PCP) Forms HOME CARE DOCUMENTATION FORM, IMPORTANT VISIT INFORMATION Patient Instructions My [facility] Additional Instructions Please follow up with your primary care doctor with in the next 24 hours. Any worsening of your symptoms, please return to the ED immediately. This includes any fevers greater than 100.4, worsening pain, chest pain, shortness breath, persistent nausea, vomiting, unable to eat or drink, or any other concerning signs or symptoms from your standpoint. Please take Zofran as needed for nausea and vomiting. Please follow-up with your primary care doctor in regards to your concussion. Problem Qualifiers Primary Impression: Concussion Encounter type: initial encounter Loss of consciousness presence/duration: without LOC Qualified Codes: S06.0X0A - Concussion without loss of consciousness, initial encounter
== END 2017-04-28 16:22 | disposition home or self-care (01) ==
LOC: C.EDB 14:55 → C.EDC 16:22
DX: S06.0X0A Concussion without loss of consciousness, initial encounter (principal); S00.83XA Contusion of other part of head, initial encounter; W01.0XXA Fall on same level from slipping, tripping and stumbling without subsequent striking against object, initial encounter; C74.01 Malignant neoplasm of cortex of right adrenal gland; F32.9 Major depressive disorder, single episode, unspecified; I10 Essential (primary) hypertension; Z79.82 Long term (current) use of aspirin; Z87.891 Personal history of nicotine dependence; Z83.2 Family history of diseases of the blood and blood-forming organs and certain disorders involving the immune mechanism; Z83.3 Family history of diabetes mellitus; Z82.49 Family history of ischemic heart disease and other diseases of the circulatory system; Z88.6 Allergy status to analgesic agent; Z91.012 Allergy to eggs

== ENCOUNTER 2017-09-16 08:38 | Emergency (ER) | payer OTHER ==
[~2017-09-16 08:38] MED LIST changes: -ALEN70TA4 PO; -AMLO-110 PO; +ASCO250C3 PO; +ASPI81TA28 PO; +ATOR-26 PO; +CLOTCRE TOP; +CLR10 PO; +CYCL10TA6 PO; +DENO60SO INJ; +DICL1GEL12 TOP; -DICY1TAB25 PO; +DICY20TA10 PO; +DOCU-94 PO; +FERR1TAB23 PO; +FOLI800T PO; +LDXO60 TOP; +MYCO500T4 PO; +NIAC50TA9 PO; +NRV/5 PO; +NYSP PO; -OMEG1CAP71 PO; +OMEP40CA41 PO; +TPRSR/25 PO; +VITA1CAP4 PO; -[UNRECOGNIZED DRUG - CODE] TOP
[2017-09-16 08:42] VITALS: TEMP 36.8
[2017-09-16] MEDS ORDERED: HYDROmorphone INJ 2 MG/ML SYR/VIAL IM STA (09:29)
[2017-09-16] MEDS ORDERED: ONDANSETRON 4MG OD TAB PO STA (09:29)
[2017-09-16] MEDS ORDERED: KETOROLAC TROMETHAMINE 60 MG/2 ML VIAL IM STA (09:29)
[2017-09-16] MEDS ORDERED: DEXAMETHASONE **PF** INJ 10 MG/ML VIAL IM ONE (09:30)
--- NOTE | 2017-09-16 09:40 | EMERGENCY ROOM VISIT NOTE ---
History First contact with patient: 08:56 Chief Complaint: HIP PAIN Stated Complaint: R HIP PAIN History of Present Illness Patient is a 62-year-old female who presents emergency department for evaluation of right low back pain radiating down the right leg. She has had symptoms for about 4 or 5 days. She reports a constant, aching pain in the right low back, just above her buttocks that radiates down her leg into her foot. She describes tingling in her toes. She states that for the last 3 nights she has been unable to sleep due to pain. She is unable to stand upright or walk well. She receives hydrocodone from her primary care provider and has increased this to 1 tablet during the day and a 2-1/2 tablets at bedtime which has been ineffective. She emailed her doctor this week and had back x-rays which were reportedly fine per the patient. She has had back problems in the past and has been seen by pain management. She previously had been diagnosed with sacroiliitis, but due to a pilonidal wound she was unable to have injections, and has not had any follow up since. She denies any bowel or bladder incontinence, dysuria, frequency, urgency or hematuria. She denies any weakness in the extremities. She has a history of osteoporosis, including a thoracic compression fracture status post kyphoplasty. She also reports osteoarthritis of both of her knees and states that she is hoping to have the right knee replaced at this fall. The patient presently rates her pain an 8/10. Review of Systems Review of systems as per HPI. All other systems reviewed were negative. 10 systems reviewed. 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 (3) Anxiety Disorder, Unspecified (4) ARF (acute renal failure) (5) Back pain (6) Bullous Pemphigoid (7) Chest pain (8) Chest pain (9) Chronic Kidney Disease, Unspecified (10) Closed head injury (11) Compression fracture of body of thoracic vertebra (12) Concussion (13) Concussion (14) Dehydration (15) Dehydration (16) Depression (17) Depressive Disorder Nec (18) Dyslipidemia (19) Fall (20) HTN (hypertension) (21) Hypertension (22) Lower abdominal pain, unspecified (23) Lower back pain (24) Lower back pain (25) Nasal bone fracture (26) Obesity (27) Osteoarthritis (28) Osteoporosis (29) Pyelonephritis (30) Rash and nonspecific skin eruption (31) Thoracic back pain (32) Thoracic back pain (33) UTI (urinary tract infection) (34) UTI (urinary tract infection) (35) Valvular heart disease (36) Weakness of left upper extremity Surgical Problems: (1) History of back surgery Electronic medical records are reviewed and summarized as above/below. See Problem List. Family History Blood clots Diabetes mellitus FH: CHF (congestive heart failure) FH: CVA (cerebrovascular accident) Social History Smoking Status: Former Smoker Alcohol Use: none Drug Use: none Housing Status: lives with family Occupation Status: unemployed Current/Historical Medications Scheduled Amlodipine Besylate (Amlodipine Besylate), 5 MG PO DAILY Ascorbic Acid (Vitamin C), 250 MG PO DAILY Aspirin (Aspirin Ec), 81 MG PO DAILY Atorvastatin (Lipitor), 80 MG PO DAILY Bupropion Hcl (Wellbutrin Sr), 200 MG PO BID Cholecalciferol (Vitamin D3), 2,000 INTER.UNIT PO DAILY Cyanocobalamin (Vitamin B-12), 1,000 MCG PO DAILY Cyclobenzaprine Hcl (Flexeril), 10 MG PO PRN UD Denosumab (Prolia), 1 DOSE INJ UD Diclofenac Sodium (Topical) (Voltaren 1% Top Gel), 1 APPLN TOP QID Dicyclomine Hcl (Dicyclomine Hcl), 20 MG PO QID Docusate Sodium (Colace), 2 CAP PO HS Doxycycline Hyclate (Vibramycin), 100 MG PO BID Duloxetine HCl (Cymbalta), 30 MG PO DAILY Ferrous Sulfate (Iron), 325 MG PO DAILY Folic Acid (Folic Acid), 800 MCG PO DAILY Lisinopril (Lisinopril), 10 MG PO DAILY Loratadine (Claritin), 10 MG PO DAILY Methylprednisolone (Medrol Dosepak), 1 PKT PO UD Metoprolol Succinate (Metoprolol Succinate ER), 25 MG PO DAILY Mycophenolate Mofetil (Cellcept), 1,000 MG PO BIDM Niacin (Niacin), 1 TAB PO QPM Nitroglycerin (Nitrostat), 0.4 MG UT PRN Nystatin (Nystop), 1 APPLN PO BID Omeprazole (Prilosec), 40 MG PO DAILY Vitamin E (E 1000), 2,000 UNITS PO QPM Scheduled PRN Clotrimazole W/ Betamethasone (Lotrisone), 1 APPLN TOP AMPM PRN for Fluocinonide (Lidex 0.05% Oint), 1 APPLN TOP BID PRN for AFFECTED AREAS Hydrocodone/Acetaminophen 5MG/325MG (Boyle 5MG/325MG), 1 TABS PO BID PRN for Pain Hydrocodone/Acetaminophen 5MG/325MG (Boyle 5MG/325MG), 1-2 TABLET PO Q4H PRN for Pain Triamcinolone Acet (Aristocort 0.1%), 1 APPLN TOP BID PRN for Physical Exam Vital Signs Date Time Temp Pulse Resp B/P (MAP) Pulse Ox O2 Delivery O2 Flow Rate FiO2 09/16/17 10:14 78 18 123/67 98 Room Air 09/16/17 09:45 98 Room Air 09/16/17 08:42 36.8 87 18 138/77 98 Room Air Physical Exam PHYSICAL EXAM: Vital Signs: Reviewed Nurse's notes. CONSTITUTIONAL: Patient is an uncomfortable appearing 62-year-old female who is awake and alert and sitting [facility] the [facility]. She has significant discomfort with position changes, and is unable to stand upright completely. CARDIOVASCULAR: Regular rate and rhythm, systolic ejection murmur noted. No JVD. Peripheral pulses easily palpable. RESPIRATORY: Breath sounds equal and clear to auscultation without wheezes, rales, or rhonchi heard. Full and equal chest expansion without accessory muscle use or retractions. ABDOMEN: Bowel sounds are present. Abdomen is soft, nontender and nondistended. INTEGUMENTARY: Intertriginous candidiasis noted in the skin folds of the flanks and groin.. LYMPH: No lymphadenopathy. SPINE: Examination of the patient's back does not demonstrate any ecchymosis, abrasions or outward signs of trauma. No erythema, increased warmth or induration. Patient has no midline discomfort to palpation over the lumbar spinous processes. Her pain is low, in the right sacral/SI joint region. She is exquisitely tender here. EXTREMITIES: Leg lengths are symmetrical. Negative logroll bilaterally. Normal strength including dorsi-flexion and plantar flexion of the great toes and ankles and flexion and extension of the knees and flexion of the hips. Positive right straight leg raise testing. Lower extremity DTRs are equal and symmetrical bilaterally. Distal pulses are easily palpable. Sensation light touch is intact over the lower extremities bilaterally. Medical Decision & Procedures Medications Administered Medications (Trade) Dose Ordered Sig/Sukhdeep Route Start Time Stop Time Status Last Admin Dose Admin Ketorolac Tromethamine (Toradol Inj) 60 mg NOW STAT IM 09/16/17 09:29 09/16/17 09:31 DC 09/16/17 09:45 60 MG Hydromorphone HCl (Dilaudid Inj) 2 mg NOW STAT IM 09/16/17 09:29 09/16/17 09:31 DC 09/16/17 09:45 2 MG Ondansetron HCl (Zofran Odt) 4 mg NOW STAT PO 09/16/17 09:29 09/16/17 09:31 DC 09/16/17 09:45 4 MG Dexamethasone Sodium Phosphate (Dexamethasone Inj Pf) 10 mg NOW ONCE IM 09/16/17 09:30 09/16/17 09:31 DC 09/16/17 09:45 10 MG ED Course The patient was seen and evaluated as above. Her old records were reviewed including prior MRI from 2016 and pain management visits. She presents the emergency department for evaluation of right low back pain with radiation into the right leg. Some of her pain is reproducible over the right SI joint, and does appear consistent with her prior history of sacroiliitis, however she does have some radicular symptoms down the right leg. She does not have any findings consistent with acute cord compression or cauda equina syndrome. She is opioid dependent for chronic pain syndrome, I suspect related to her back as well as her osteoarthritic conditions. She receives regular narcotic prescriptions from her primary care provider. She reports that she has hydrocodone at home, but it has been ineffective. She had recent lumbar spine x -rays this week with her PCP. She does not have any history of fall to suspect fracture. It was not felt that any additional radiographs would be helpful at this time. Pain management was discussed with the patient and she was in agreement. The patient was medicated with Toradol 60 mg IM, Dilaudid 2 mg IM, Decadron 10 mg IM and Zofran 4 mg ODT. Her history and presentation were reviewed with Dr. Mario who also independently evaluated her, and agreed with the ED workup. The patient was reassessed, and reported that her pain had significantly improved. She did still have some discomfort with movement of her right leg. As the patient does not have any emergent cord symptoms, it was not felt that MRI was appropriate at this time, although it was discussed with the patient that she may need one in the near future. She was encouraged to follow-up with her primary care provider for further care and management, including pain management, as she may need physical therapy or a pain management evaluation. She expressed understanding of this and was agreeable. She will be placed on Medrol Dosepak, and was encouraged to continue her hydrocodone as prescribed. The patient was discharged home with a neighbor driving in good condition. She rated her discomfort a 4/10 at discharge. Medical Decision See emergency department course. [facility] Drug Monitoring Program Search Results: patient reviewed within database Drug Monitoring Findings: 24 narcotic prescriptions in the last 12 months Medication Reconcilliation Current Medication List: was personally reviewed by me Blood Pressure Screening Patient's blood pressure: Normal blood pressure Blood pressure disposition: Did not require urgent referral Impression Primary Impression: Right lumbar radiculopathy Additional Impression: Exacerbation of chronic back pain Departure Information Prescriptions Methylprednisolone (MEDROL DOSEPAK) 4 Mg Alejandro 1 PKT PO UD for 6 Days, #1 PKT ONCE DAILY DIRECTED. Prov: Suzan An PA 09/16/17 Referrals Marcus Talavera, D.O. (PCP) Patient Instructions My [facility] Additional Instructions DO NOT drive, drink alcohol, operate machinery, or perform dangerous activities today. You were given medications in the ER that can affect your ability to safely function or operate a vehicle. Medrol Dosepak: Once daily until the prescription is finished. It is best to take this earlier in the day as some patients note occasional difficulty falling asleep when taken in the late evening. Continue your Hydrocodone as prescribed by Dr. Talavera. Rest and avoid heavy lifting until your symptoms resolve and then gradually return to full activity. A good rule of thumb is if it hurts your back to perform a certain activity, then it should be avoided until you are healthy again. A heating pad, warm compresses, or a hot shower may help with tight muscles and can be done several times a day as needed. Continue current medications. Return to the ER immediately for severe pain, extremity weakness, severe pain, loss of control of your bowels or bladder, inability to walk, or as needed. Follow up with your primary care physician on Monday for a recheck of your current condition Problem Qualifiers
[2017-09-16 09:45] VITALS: O2SAT 98
[2017-09-16 10:14] VITALS: BP 123/67; PULSE 78; O2SAT 98
[2017-09-16] MEDS ORDERED: METH4PAK PO (11:00)
--- NOTE | 2017-09-16 15:17 | EMERGENCY ROOM VISIT NOTE ---
ED Visit Note First contact with patient: 08:56 I have personally evaluated this patient examined her and reviewed the pertinent labs and data. I have discussed the case with Madison An, the physician orthodontist assistant and agree with the plan. Please refer to the PA note. This patient comes in complaining of right hip pain. It actually seems to be more of her right SI joint going down her leg. On my exam, she is no redness or warmth. she has some bruising of her legs. There is no evidence of neurologic deficit. She has distal pulses which are normal. She did receive some pain medication. This seems have been going on chronically. She has nothing to suggest acute cauda equina syndrome or other neurologic or infectious process acutely. She is going to follow-up with her doctor Monday for recheck and return to the ER if worsening of symptoms, any new problems or concerns
== END 2017-09-16 11:27 | disposition home or self-care (01) ==
LOC: C.EDB 08:40
DX: M54.16 Radiculopathy, lumbar region (principal); G89.29 Other chronic pain; M17.0 Bilateral primary osteoarthritis of knee; M81.0 Age-related osteoporosis without current pathological fracture; Z85.858 Personal history of malignant neoplasm of other endocrine glands; F41.9 Anxiety disorder, unspecified; F32.9 Major depressive disorder, single episode, unspecified; E78.5 Hyperlipidemia, unspecified; I10 Essential (primary) hypertension; E66.9 Obesity, unspecified; Z87.440 Personal history of urinary (tract) infections; Z83.3 Family history of diabetes mellitus; Z82.49 Family history of ischemic heart disease and other diseases of the circulatory system; Z82.3 Family history of stroke; Z87.891 Personal history of nicotine dependence; Z79.82 Long term (current) use of aspirin; Z79.899 Other long term (current) drug therapy; F11.20 Opioid dependence, uncomplicated

== ENCOUNTER 2017-09-17 23:58 | Inpatient (IN) | payer OTHER ==
[~2017-09-17] VITALS: Ht 167.6 cm; Wt 134.0 kg
[~2017-09-17 23:58] MED LIST changes: +METH4PAK PO
[2017-09-18] MEDS ORDERED: ACETAMINOPHEN IV 650 MG in EMPTY BAG 0 ML IV STA (00:32)
[2017-09-18 00:44] LABS: BASO % 0.2 %; BASO ABS # 0.02 K/uL (0-0.2); EOS % 0.5 %; EOS ABS # 0.06 K/uL (0-0.5); HEMATOCRIT 33.6 % (37-47); HEMOGLOBIN 10.5 g/dL (12.0-16.0); IG# 0.04 K/uL (0.00-0.02); LYMPH % 16.3 %; LYMPH ABS # 1.81 K/uL (1.2-3.4); MEAN CELL VOLUME 91.8 fL (80-100); MEAN CORPUSCULAR HEMOGLOBIN 28.7 pg (25-34); MEAN CORPUSCULAR HGB CONC 31.3 g/dl (32-36); MEAN PLATELET VOLUME 10.2 fL (7.4-10.4); MONO % 9.3 %; MONO ABS # 1.03 K/uL (0.11-0.59); NEUT % 73.3 %; NEUT ABS # 8.14 K/uL (1.4-6.5); PLATELET COUNT 321 K/uL (130-400); RED CELL DISTRIBUTION WIDTH SD 50.9 fL (36.4-46.3)
[2017-09-18 01:02] LABS: CALCIUM 8.1 mg/dl (8.5-10.1); CREATININE 1.26 mg/dl (0.60-1.20); POTASSIUM 4.2 mmol/L (3.5-5.1)
[2017-09-18] MEDS ORDERED: DiphenhydrAMINE HCL 50 MG/ML VIAL IV STA (01:49)
[2017-09-18] MEDS ORDERED: KETOROLAC TROMETHAMINE 30 MG/ML VIAL IV STA (01:49)
[2017-09-18] MEDS ORDERED: TRIAMCINOLONE ACET 0.1% CR 15 GM TUBE EXT PRN (04:00)
[2017-09-18] MEDS ORDERED: ALUMINUM/MAGNESIUM/SIMETH (MAALOX MAX) 30 ML UDC PO PRN (04:00)
[2017-09-18] MEDS ORDERED: METHYLPREDNISOLONE PO SCH (04:15)
[2017-09-18] MEDS ORDERED: LORAZEPAM 0.5 MG TAB PO SCH (04:30)
[2017-09-18] MEDS ORDERED: IV FLUIDS COMPLETED PRN (04:45)
--- NOTE | 2017-09-18 04:52 | EMERGENCY ROOM VISIT NOTE ---
History First contact with patient: 00:19 Chief Complaint: HIP PAIN Stated Complaint: RIGHT HIP PAIN AND BACK,HAS KIDNEY ISSUSES History of Present Illness The patient is a 62 year old female who presents to the Emergency Room with complaints of severe right flank pain for the past few weeks has been seen here 2 other times. Patient states his pain feels different. She states the pain is more in the flank region. She is concerned she is having problems with her kidneys. Patient states she feels like she is not emptying out her bladder and is having urinary frequency and urgency with possible dysuria. Patient describes the pain as severe, 10 out of 10. Movement makes it worse nothing makes it better. Patient states she took 5 of her [place]'s today and then drove to the ER tonight. Patient did walk into the ER. Patient states this feels different than the pain she was seen for 2 days ago. Patient has had chronic back pain for years. She had an MRI [address] scan last year. Patient denies chest pain, dyspnea, nausea, vomiting, diarrhea, abdominal pain, leg pain or weakness. Review of Systems An 10 system review of systems was completed with positives and pertinent negatives listed in the HPI. 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 (3) Ambulatory dysfunction (4) Anxiety Disorder, Unspecified (5) ARF (acute renal failure) (6) Back pain (7) Bullous Pemphigoid (8) Chest pain (9) Chest pain (10) Chronic Kidney Disease, Unspecified (11) Closed head injury (12) Compression fracture of body of thoracic vertebra (13) Concussion (14) Concussion (15) Dehydration (16) Dehydration (17) Depression (18) Depressive Disorder Nec (19) Dyslipidemia (20) Fall (21) HTN (hypertension) (22) Hypertension (23) Lower abdominal pain, unspecified (24) Lower back pain (25) Lower back pain (26) Nasal bone fracture (27) Obesity (28) Osteoarthritis (29) Osteoporosis (30) Pyelonephritis (31) Rash and nonspecific skin eruption (32) Severe low back pain (33) Thoracic back pain (34) Thoracic back pain (35) UTI (urinary tract infection) (36) UTI (urinary tract infection) (37) Valvular heart disease (38) Weakness of left upper extremity Surgical Problems: (1) History of back surgery Family History Blood clots Diabetes mellitus FH: CHF (congestive heart failure) FH: CVA (cerebrovascular accident) Social History Smoking Status: Never Smoker Alcohol Use: none Drug Use: none Marital Status: single Housing Status: lives with family Occupation Status: unemployed Current/Historical Medications Scheduled Amlodipine Besylate (Amlodipine Besylate), 5 MG PO DAILY Ascorbic Acid (Vitamin C), 250 MG PO DAILY Aspirin (Aspirin Ec), 81 MG PO DAILY Atorvastatin (Lipitor), 80 MG PO DAILY Bupropion Hcl (Wellbutrin Sr), 200 MG PO BID Cholecalciferol (Vitamin D3), 2,000 INTER.UNIT PO DAILY Cyanocobalamin (Vitamin B-12), 1,000 MCG PO DAILY Cyclobenzaprine Hcl (Flexeril), 10 MG PO PRN UD Denosumab (Prolia), 1 DOSE INJ UD Diclofenac Sodium (Topical) (Voltaren 1% Top Gel), 1 APPLN TOP QID Dicyclomine Hcl (Dicyclomine Hcl), 20 MG PO QID Docusate Sodium (Colace), 2 CAP PO HS Doxycycline Hyclate (Vibramycin), 100 MG PO BID Duloxetine HCl (Cymbalta), 30 MG PO DAILY Ferrous Sulfate (Iron), 325 MG PO DAILY Folic Acid (Folic Acid), 800 MCG PO DAILY Lisinopril (Lisinopril), 10 MG PO DAILY Loratadine (Claritin), 10 MG PO DAILY Methylprednisolone (Medrol Dosepak), 1 PKT PO UD Metoprolol Succinate (Metoprolol Succinate ER), 25 MG PO DAILY Mycophenolate Mofetil (Cellcept), 1,000 MG PO BIDM Niacin (Niacin), 1 TAB PO QPM Nitroglycerin (Nitrostat), 0.4 MG UT PRN Nystatin (Nystop), 1 APPLN PO BID Omeprazole (Prilosec), 40 MG PO DAILY Vitamin E (E 1000), 2,000 UNITS PO QPM Scheduled PRN Clotrimazole W/ Betamethasone (Lotrisone), 1 APPLN TOP AMPM PRN for Fluocinonide (Lidex 0.05% Oint), 1 APPLN TOP BID PRN for AFFECTED AREAS Hydrocodone/Acetaminophen 5MG/325MG ([place] 5MG/325MG), 1 TABS PO BID PRN for Pain Hydrocodone/Acetaminophen 5MG/325MG ([place] 5MG/325MG), 1-2 TABLET PO Q4H PRN for Pain Triamcinolone Acet (Aristocort 0.1%), 1 APPLN TOP BID PRN for Physical Exam Vital Signs Date Time Temp Pulse Resp B/P (MAP) Pulse Ox O2 Delivery O2 Flow Rate FiO2 09/18/17 03:12 76 20 127/58 98 Room Air 09/18/17 01:32 68 22 127/61 96 Room Air 09/18/17 00:02 36.8 74 18 124/76 100 Room Air Physical Exam VITALS: Vitals are noted on the nurse's note and reviewed by myself. Vital signs stable. GENERAL: White female, in no acute distress, nondiaphoretic, well-developed well -nourished. SKIN: The skin was without rashes, erythema, edema, or bruising. There is no tenting of the skin. Capillary reflex less than 2 seconds. HEAD: Normocephalic atraumatic. EARS: External auditory canals clear, tympanic membranes pearly rice without erythema or effusion bilaterally. EYES: Pupils equal round and reactive to light and accommodation. Conjunctivae without injection, sclerae without icterus. Extraocular movements intact. NOSE: Patent, turbinates without inflammation or discharge. No sinus tenderness. MOUTH: Mucous membranes moist. Pharynx without erythema or exudate. Uvula midline. Airway patent. Tongue does not deviate. NECK: Supple without nuchal rigidity. No lymphadenopathy. No thyromegaly. Cervical spine is nontender. No JVD. HEART: Regular rate and rhythm without murmurs gallops or rubs. LUNGS: Clear to auscultation bilaterally without wheezes, rales or rhonchi. No retractions or accessory muscle use. ABDOMEN: Positive bowel sounds x 4. Normal tympanic percussion. Soft, protuberant, obese, nontender, without masses or organomegaly. Salter sign negative. No guarding or rebound tenderness. Right CVA tenderness MUSCULOSKELETAL: No muscle atrophy, erythema, or edema noted. No thoracic or lumbar tenderness on exam. 5 out of 5 strength throughout. Negative straight leg raise bilaterally. NEURO: Patient was alert and oriented to person place and time. Normal sensation to light and sharp touch. No focal neurological deficits. Medical Decision & Procedures Laboratory Results 09/18/17 00:33 Red Blood Count 3.66, Mean Corpuscular Volume 91.8, Mean Corpuscular Hemoglobin 28.7, Mean Corpuscular Hemoglobin Concent 31.3, Mean Platelet Volume 10.2, Neutrophils (%) (Auto) 73.3, Lymphocytes (%) (Auto) 16.3, Monocytes (%) (Auto) 9.3, Eosinophils (%) (Auto) 0.5, Basophils (%) (Auto) 0.2, Neutrophils # (Auto) 8.14, Lymphocytes # (Auto) 1.81, Monocytes # (Auto) 1.03, Eosinophils # (Auto) 0.06, Basophils # (Auto) 0.02 09/18/17 00:33 Test 09/18/17 00:33 09/18/17 01:27 White Blood Count 11.10 K/uL (4.8-10.8) Red Blood Count 3.66 M/uL (4.2-5.4) Hemoglobin 10.5 g/dL (12.0-16.0) Hematocrit 33.6 % (37-47) Mean Corpuscular Volume 91.8 fL (80-100) Mean Corpuscular Hemoglobin 28.7 pg (25-34) Mean Corpuscular Hemoglobin Concent 31.3 g/dl (32-36) Platelet Count 321 K/uL (130-400) Mean Platelet Volume 10.2 fL (7.4-10.4) Neutrophils (%) (Auto) 73.3 % Lymphocytes (%) (Auto) 16.3 % Monocytes (%) (Auto) 9.3 % Eosinophils (%) (Auto) 0.5 % Basophils (%) (Auto) 0.2 % Neutrophils # (Auto) 8.14 K/uL (1.4-6.5) Lymphocytes # (Auto) 1.81 K/uL (1.2-3.4) Monocytes # (Auto) 1.03 K/uL (0.11-0.59) Eosinophils # (Auto) 0.06 K/uL (0-0.5) Basophils # (Auto) 0.02 K/uL (0-0.2) RDW Standard Deviation 50.9 fL (36.4-46.3) RDW Coefficient of Variation 15.0 % (11.5-14.5) Immature Granulocyte % (Auto) 0.4 % Immature Granulocyte # (Auto) 0.04 K/uL (0.00-0.02) Anion Gap 9.0 mmol/L (3-11) Est Creatinine Clear Calc Drug Dose 66.8 ml/min Estimated GFR () 53.6 Estimated GFR (Non- 46.3 BUN/Creatinine Ratio 25.0 (10-20) Calcium Level 8.1 mg/dl (8.5-10.1) Urine Color YELLOW Urine Appearance CLOUDY (CLEAR) Urine pH 5.0 (4.5-7.5) Urine Specific [place] 1.034 (1.000-1.030) Urine Protein NEG (NEG) Urine Glucose (UA) NEG (NEG) Urine Ketones TRACE (NEG) Urine Occult Blood NEG (NEG) Urine Nitrite NEG (NEG) Urine Bilirubin NEG (NEG) Urine Urobilinogen NEG (NEG) Urine Leukocyte Esterase NEG (NEG) Urine WBC (Auto) 1-5 /hpf (0-5) Urine RBC (Auto) 0-4 /hpf (0-4) Urine Hyaline Casts (Auto) 5-10 /lpf (0-5) Urine Epithelial Cells (Auto) >30 /lpf (0-5) Urine Bacteria (Auto) NEG (NEG) Medications Administered Medications (Trade) Dose Ordered Sig/Sukhdeep Route Start Time Stop Time Status Last Admin Dose Admin Acetaminophen 650 mg/Empty Bag 65 ml @ 260 mls/hr NOW STAT IV 09/18/17 00:32 09/18/17 00:46 DC 09/18/17 00:49 260 MLS/HR Ketorolac Tromethamine (Toradol Inj) 10 mg NOW STAT IV 09/18/17 01:49 09/18/17 01:50 DC 09/18/17 01:58 10 MG Diphenhydramine HCl (Benadryl Inj) 12.5 mg NOW STAT IV 09/18/17 01:49 09/18/17 01:50 DC 09/18/17 01:58 12.5 MG ED Course Prior records/ancillary studies reviewed. Triage Nursing notes reviewed. The patient's history was concerning for urinary symptoms with right flank back pain. Differential diagnosis: Etiologies such as drug-seeking behavior, UTI, renal colic, urinary retention, musculoskeletal, disc herniation, fracture, aortic disease, metastatic disease, cord compression, discitis, infection, renal colic, gastrointestinal, acute exacerbation of chronic back pain, sciatica, cauda equina, as well as others were entertained. Physical findings: As above. No focal neurologic findings noted. ER treatment provided: Tylenol, Toradol, Benadryl On reassessment the patient felt better. Diagnostics interpreted by me: The labs revealed stable H&H. Stable creatinine per chart review. Negative urine Bladder scan shows 63 mL's of urine Imaging studies: US RENAL: Both kidneys are small and mildly atrophic. No hydronephrosis or nephrolithiasis. Bladder appears normal. Radiologist: Humberto Kirby MD MRI LUMBAR SPINE W/O CONTRAST CLINICAL HISTORY: Low back pain x8 months with bilateral leg radiculopathy TECHNIQUE: Sagittal and axial T1, T2 and STIR images were obtained. COMPARISON STUDY: No previous studies for comparison. OBSERVATIONS: The vertebral bodies and posterior elements appear intact. There is no abnormal bony signal present to suggest a marrow replacement process. L1-2: No disc protrusions or extrusions. No evidence of spinal canal or neural foraminal compromise. L2-3: There is a minimal circumferential disc bulge. There is no spinal foraminal stenosis L3-4: There is a minimal circumferential disc bulge. There is no significant spinal or foraminal stenosis L4-5: There is a grade 1 spondylolisthesis of L4 on L5. In addition to a circumferential disc bulge. There is a right posterior lateral disc protrusion. This deforms the thecal sac. There is moderate spinal stenosis present. The right-sided disc protrusion results in right subforaminal narrowing L5-S1: No disc protrusions or extrusions. No evidence of spinal canal or neural foraminal compromise. The conus medullaris and cauda equina appear normal. IMPRESSION: 1. Grade 1 spondylolisthesis of L4 and L5 2. Right posterior lateral disc protrusion at the L4-5 level. There is moderate spinal stenosis and right-sided foraminal narrowing Electronically signed by: Harjit Turner M.D. LUMBAR SPINE CT CT DOSE: 3688.87 mGy.cm HISTORY: fall, back pain TECHNIQUE: Multiaxial CT images of the lumbar spine were performed and reformatted in the sagittal and coronal plane without the use of contrast. COMPARISON: Lumbar spine MRI 10/20/2015. FINDINGS: No fractures within the lumbar spine. Grade I anterolisthesis of L4 on L5, unchanged. Moderate central canal narrowing at L4-5. Mild disc space narrowing at L4-L5. [id number] facet degenerative changes within the lower lumbar spine. IMPRESSION: No fractures within the lumbar spine. Electronically signed by: Everardo Colin M.D. 06/07/2016 7:14 AM Dictated Date/Time: 06/07/2016 7:11 AM Consultation: A consultation was placed with hospitalist, Dr. Cheng. The case was discussed and diagnostics were reviewed. Patient will be evaluated for possible placement to rehab facility today. This appears to be consistent with right flank pain most likely muscle skeletal in nature. Patient was yelling and screaming demanding narcotics. I informed her that she took 5 [place] today prior to coming to the ER and driving while on narcotics which is illegal. Patient was informed she needs to receive all her chronic pain meds from her family care doctor. She has had multiple narcotic prescriptions this past year. Patient had chronic back pain for years. Patient was able to ambulate in here to the emergency room and then started screaming that she could not walk despite the fact that she was flailing around moving all extremities. Patient was yelling and screaming and demanded narcotics. She refused to leave. Patient was offered referral to [facility] for OT PT and demanded to be admitted and then would be agreeable to be sent there for rehab and for pain management. I did inform her I would not be prescribing any narcotics to her as I feel like she is drug-seeking and abusing her narcotics. Patient was taking more than what was prescribed by her family care doctor. Patient started to yell and scream more at me and threatened to luz me. She demanded to call the rd project manager and stated that she was going to luz me for not prescribing narcotics. I informed her that all chronic narcotic prescriptions must be obtained by the family care doctor or by pain management. The ER is not the appropriate place to come for chronic pain complaints. This is the patient's third ER visit for this same complaint. Patient changed her history multiple times after I informed her that she would not be prescribing any narcotics from me. Patient refused to leave but was agreeable to evaluation by medicine for placement to rehab today. Patient's prior MRI and CT of the spine was reviewed. She had no deficits on exam. She did drive here and ambulate into this ER without issue. She then stated she cannot walk once I informed her she will not be receiving narcotics from me. I believe the patient is drug-seeking and malingering. The charge nurse Ruth was present along with 3 other nurses. By the evaluation outlined above emergent etiologies such as fracture, aortic disease, metastatic disease, infection, renal colic, gastrointestinal, cord compression, cauda equina, as well as others were deemed relatively unlikely. The pt informed about the findings as listed above. All questions were answered. Case is reviewed with my attending The chart was completed utilizing [employer] Speech voice recognition software. Grammatical errors, random word insertions, pronoun errors, and incomplete sentences are an occassional consequence of this system due to software limitations, ambient noise, and hardware issues. Any formal questions or concerns about the content, text, or information contained within the body of this dictation should be directly addressed to the physician assistant guest services manager for clarification. Medical Decision As above Medication Reconcilliation Current Medication List: was personally reviewed by me Blood Pressure Screening Patient's blood pressure: Normal blood pressure Impression Primary Impression: Right flank pain Additional Impression: Drug-seeking behavior Departure Information Dispostion Being Evaluated By Hospitalist Condition GOOD Forms WORK / SCHOOL INSTRUCTIONS, HOME CARE DOCUMENTATION FORM, IMPORTANT VISIT INFORMATION Patient Instructions Back Pain - [facility], Former[facility] Additional Instructions Problem Qualifiers
[2017-09-18 05:12] VITALS: BP 147/85; PULSE 78; TEMP 36.5; O2SAT 98; Ht 167.6 cm; Wt 134.0 kg
--- NOTE | 2017-09-18 06:41 | DIAGNOSTIC IMAGING REPORT ---
(ROLANDO/BLAD)RETROPERITON COMP HISTORY: Flank pain right flank pain COMPARISON: None. FINDINGS: Right kidney: Maximum dimension 9.2 cm. No evidence for hydronephrosis. Normal corticomedullary differentiation and cortical thickness. Left kidney: Maximum dimension 8.5 cm. No evidence for hydronephrosis. Normal corticomedullary differentiation and cortical thickness. Bladder: No bladder wall thickening. The bilateral ureteral jets were identified. IMPRESSION: Normal renal ultrasound. Renal size somewhat diminished consistent with mild atrophy. The above report was generated using voice recognition software. It may contain grammatical, syntax or spelling errors. Electronically signed by: Wallace Ramon M.D. 09/18/2017 6:40 AM Dictated Date/Time: 09/18/2017 6:38 AM
[2017-09-18] MEDS: DICLOFENAC SOD 1% GEL 100 GM TUBE EXT SCH ×4 (07:29→20:32)
[2017-09-18] MEDS: METHYLPREDNISOLONE 4 MG TAB PO SCH ×4 (07:29→20:50)
[2017-09-18] MEDS: HEPARIN SOD 5000 UNIT/0.5 ML CARP SQ SCH ×3 (07:30→22:17)
[2017-09-18] MEDS: NYSTATIN POWDER 15GM BTL EXT SCH ×2 (07:35→20:32)
[2017-09-18 08:15] VITALS: BP 131/80; PULSE 78
[2017-09-18] MEDS: MYCOPHENOLATE MOFETIL 250 MG CAP (CELLCEPT) PO SCH ×2 (08:20→17:36)
[2017-09-18] MEDS: FERROUS SULFATE 325 MG TAB PO SCH (08:21)
[2017-09-18] MEDS: DULOXETINE (CYMBALTA) 30 MG CAP PO SCH ×3 (08:21→13:42)
[2017-09-18] MEDS: LORATADINE 10 MG TAB PO SCH (08:21)
[2017-09-18] MEDS: ASPIRIN 81 MG ECTAB PO SCH (08:21)
[2017-09-18] MEDS: METOPROLOL SUCC 25MG EXT REL TAB PO SCH (08:22)
[2017-09-18] MEDS: AMLODIPINE BESYLATE 5 MG TAB PO SCH (08:22)
[2017-09-18] MEDS: PANTOprazole SOD 40 MG TAB PO SCH (08:22)
[2017-09-18] MEDS: FoLIC ACID TAB 400 MCG TAB PO SCH (08:22)
[2017-09-18] MEDS: ATORVASTATIN 40 MG TAB PO SCH (08:22)
[2017-09-18] MEDS: LISINOPRIL 10 MG TAB PO SCH (08:23)
[2017-09-18] MEDS: ASCORBIC ACID 500 MG TAB PO SCH (08:23)
[2017-09-18] MEDS: BuPROPion SR 100 MG TABCR PO SCH ×2 (08:23→20:50)
[2017-09-18] MEDS: CHOLECALCIFEROL 1000 INTER.UNIT TAB PO SCH (08:23)
[2017-09-18] MEDS ORDERED: MICONAZOLE NITRATE POWDER 43 GM ONE (08:36)
[2017-09-18] MEDS ORDERED: NURSING VERBAL MED ORDER ONE (08:45)
--- NOTE | 2017-09-18 09:45 | Pain Management Consultation ---
Pain Management Consultation Date of Consultation Sep 18, 2017. Reason for Consultation Intractable lumbosacral pain Pain Location 1 - 2 - 3 - History Mrs. Paulino is a 62-year-old morbidly obese white female who is known to the pain service from outpatient evaluation and treatment. She has chronic complaints of lumbosacral pain of suspected SI joint etiology. Patient presented to emergency department complaining of intractable pain in the right greater than left lumbosacral region. She indicates her pain is typical in location and characteristic compared to prior. She denies any recent falls or injuries. She describes the pain as deep and aching in characteristic aggravated with any movement or ambulatory activity. She reportedly drove herself to the ER and walked in indicating that she had taken 5 hydrocodone throughout the day with minimal relief of her pain. She then indicated she is expressing difficulties ambulating due to her pain. She reports today that her pain has minimal radiation into the posterior legs. She does report occasional paresthesias to the toes bilaterally in nondermatomal patterns. She denies bowel or bladder incontinence. She reports significant stress due to dealing with her mother currently in a senior living. She reports chronic right-sided knee pain and underwent a recent corticosteroid injection and is planned for TKA with Dr. Kimble in [place] in October/November time frame. Patient has been utilizing hydrocodone chronically per Dr. Talavera. She had previously undergone SI joint injection in the outpatient setting in which she had reported approximately 50% improvement. She is unable to recall the length of benefit, but reported it was short-term only. She was scheduled for repeat SI joint injections in January which were canceled due to presence of a pilonidal cyst which she reportedly had incised and drained by her PCP. She indicates she has not returned to our clinic due to dealing with her mother in and out of the senior living. Patient has no further constitutional complaints at this time. Plan of care discussed with Dr. Coyle. Past Medical/Surgical History (1) Severe low back pain (2) Ambulatory dysfunction (3) Drug-seeking behavior (4) Right flank pain (5) ARF (acute renal failure) (6) Dehydration (7) Lower back pain (8) Lower abdominal pain, unspecified (9) Rash and nonspecific skin eruption (10) Thoracic back pain (11) Weakness of left upper extremity (12) Chest pain (13) Hypertension (14) Closed head injury (15) Concussion Family History Blood clots Diabetes mellitus FH: CHF (congestive heart failure) FH: CVA (cerebrovascular accident) Social / Work History Smoking Status: Never smoker Smokeless Tobacco Use: No Alcohol Use: none Drug Use: none Marital Status: single Housing Status: lives with family Occupation: unemployed Allergies Coded Allergies: Egg (Verified Allergy, Unknown, GI SYMPTOMS, 09/18/17) Ibuprofen (Verified Adverse Reaction, Mild, stomach irritation, 09/18/17) Medications Current Inpatient Medications Medications (Trade) Dose Ordered Sig/Sukhdeep Route Start Time Stop Time Status Last Admin Dose Admin Heparin Sodium (Porcine) (Heparin Sq 5000 Unit/0.5ml) 5,000 unit Q8H SQ 09/18/17 07:00 10/18/17 06:59 09/18/17 07:30 5,000 UNIT Acetaminophen (Tylenol Tab) 650 mg Q4H PRN PO 09/18/17 04:00 10/18/17 03:59 Al Hydrox/Mg Hydrox/Simethicone (Maalox Max Susp) 15 ml Q4H PRN PO 09/18/17 04:00 10/18/17 03:59 Polyethylene (Miralax Powder Packet) 17 gm DAILY PRN PO 09/18/17 04:00 10/18/17 03:59 Ondansetron HCl (Zofran Inj) 4 mg Q6H PRN IV 09/18/17 04:00 10/18/17 03:59 Amlodipine Besylate (Norvasc Tab) 5 mg DAILY PO 09/18/17 08:00 10/18/17 08:59 09/18/17 08:22 5 MG Aspirin (Ecotrin Tab) 81 mg DAILY PO 09/18/17 08:00 10/18/17 08:59 09/18/17 08:21 81 MG Atorvastatin Calcium (Lipitor Tab) 80 mg DAILY PO 09/18/17 08:00 10/18/17 08:59 09/18/17 08:22 80 MG Bupropion HCl (Wellbutrin-Sr Tab) 200 mg BID PO 09/18/17 08:00 10/18/17 08:59 09/18/17 08:23 200 MG Cyclobenzaprine HCl (Flexeril Tab) 10 mg TID PRN PO 09/18/17 04:00 10/18/17 03:59 Diclofenac Sodium (Voltaren 1% Top Gel) 1 appln QID EXT 09/18/17 08:00 10/18/17 08:59 09/18/17 07:29 1 APPLN Duloxetine HCl (Cymbalta Cap) 30 mg DAILY PO 09/18/17 08:00 10/18/17 08:59 Fluocinonide (Lidex Oint) 1 appln BID PRN EXT 09/18/17 04:00 10/18/17 03:59 Acetaminophen/ Hydrocodone Bitart (Mcdowell 5/325 Tab) 1 tab BID PRN PO 09/18/17 04:00 10/02/17 03:59 Lisinopril (Zestril Tab) 10 mg DAILY PO 09/18/17 08:00 10/18/17 08:59 09/18/17 08:23 10 MG Loratadine (Claritin Tab) 10 mg DAILY PO 09/18/17 08:00 10/18/17 08:59 09/18/17 08:21 10 MG Metoprolol Succinate (Toprol Xl Tab) 25 mg DAILY PO 09/18/17 08:00 10/18/17 08:59 09/18/17 08:22 25 MG Mycophenolate Mofetil (Cellcept Cap) 1,000 mg BIDM PO 09/18/17 08:00 10/18/17 07:59 09/18/17 08:20 1,000 MG Nitroglycerin (Nitrostat Tab) 0.4 mg PRN UT 09/18/17 04:00 10/18/17 03:59 Nystatin (Mycostatin Powder) 1 appln BID EXT 09/18/17 08:00 10/18/17 08:59 09/18/17 07:35 1 APPLN Triamcinolone Acetonide (Kenalog 0.1% Cream) 1 appln BID PRN EXT 09/18/17 04:00 10/18/17 03:59 Ascorbic Acid (Vitamin C Tab) 250 mg DAILY PO 09/18/17 08:00 10/18/17 08:59 09/18/17 08:23 250 MG Cholecalciferol (Vitamin D Tab) 2,000 inter.unit DAILY PO 09/18/17 08:00 10/18/17 08:59 09/18/17 08:23 2,000 INTER.UNIT Ferrous Sulfate (Feosol Tab) 325 mg DAILY PO 09/18/17 08:00 10/18/17 08:59 09/18/17 08:21 325 MG Folic Acid (Folvite Tab) 800 mcg DAILY PO 09/18/17 08:00 10/18/17 08:59 09/18/17 08:22 800 MCG Pantoprazole Sodium (Protonix Tab) 40 mg DAILY PO 09/18/17 08:00 10/18/17 08:59 09/18/17 08:22 40 MG Ketorolac Tromethamine (Toradol Inj) 30 mg Q6H PRN IV 09/18/17 04:15 09/23/17 04:14 Miscellaneous (Iv Fluids Completed) 1 ea PRN PRN N/A 09/18/17 04:45 09/18/18 04:44 Methylprednisolone (Medrol Tab) 8 mg 07,21 PO 09/18/17 07:00 09/18/17 21:01 09/18/17 07:29 8 MG Methylprednisolone (Medrol Tab) 4 mg 13,18 PO 09/18/17 13:00 09/18/17 18:01 Methylprednisolone (Medrol Tab) 4 mg 07,13,18 PO 09/19/17 07:00 09/19/17 18:01 Methylprednisolone (Medrol Tab) 8 mg HS PO 09/19/17 21:00 09/19/17 21:01 Methylprednisolone (Medrol Tab) 4 mg 07,13,18,21 PO 09/20/17 07:00 09/20/17 21:01 Methylprednisolone (Medrol Tab) 4 mg 07,13,21 PO 09/21/17 07:00 09/21/17 21:01 Methylprednisolone (Medrol Tab) 4 mg 07,21 PO 09/22/17 07:00 09/22/17 21:01 Methylprednisolone (Medrol Tab) 4 mg 07 PO 09/23/17 07:00 09/23/17 07:01 Miconazole Nitrate (Desenex Powder) 1 appln PRN PRN EXT 09/18/17 09:00 10/18/17 08:59 Review of Systems Constitutional: Negative for fever, chills, sweats Eyes: Negative for eye pain, photophobia, drainage Ear, nose, mouth, throat: Negative for ear pain, nasal congestion, mouth lesions , change in voice Respiratory: Negative for wheezing, sputum production Cardiovascular: Negative for chest pain, palpitations, calf pain Gastrointestinal: Negative for abdominal pain, belching, bloating Genitourinary: Negative for dysuria, urinary incontinence, urinary urgency Musculoskeletal: Negative for deformities Integumentary: Negative for nail changes, skin yellowing, pruritus Neurological: Negative for abnormal speech, seizure type activity Physical Exam Height & Weight: Height 5 feet, 6.00 inches. Weight 134.000 (Kilograms) 295 (Pounds) Last Vital Signs Documentation Date Time Temp Pulse Resp B/P (MAP) Pulse Ox O2 Delivery O2 Flow Rate FiO2 09/18/17 08:15 78 131/80 (97) 09/18/17 05:12 20 97 09/18/17 05:12 36.5 Exam: General: Patient is morbidly obese lying quietly in exam room in no acute distress. Speech and thought process was appropriate. The patient is reportedly somewhat hard of hearing and speaks loudly. Abdomen: Soft and nondistended. Nontender to palpation. No rebound or guarding. Back/spine: Exaggerated lumbar lordosis. Nontender over the midline to palpation or percussion. No focal facet joint tenderness provocative testing. Patient tender of the SI joint region to direct palpation right greater left- sided. Patient is somewhat tender into the gluteal area. No definable minor trigger points. Slightly hyperalgesic response over the gluteal area. Patient was able to logroll towards the left side without assistance. Lower extremities: SLR negative bilaterally with slight increase in axial back pain on the right. Sensation intact without deficits. Strength testing 5/5 dorsiflexion, plantarflexion and EHL testing. Increased axial back pain with any resisted hip flexion or extension maneuvering. Skin: Slightly erythematous in the gluteal fold superiorly without evidence of skin breakdown. No residual pilonidal cyst present. Soft knee brace present on the right knee. Neurologic: Cranial nerves grossly intact. Ambulation not witnessed. Laboratory Laboratory Results (Last CBC): 09/18/17 00:33 Red Blood Count 3.66 L, Mean Corpuscular Volume 91.8, Mean Corpuscular Hemoglobin 28.7, Mean Corpuscular Hemoglobin Concent 31.3 L, Mean Platelet Volume 10.2, Neutrophils (%) (Auto) 73.3, Lymphocytes (%) (Auto) 16.3, Monocytes (%) (Auto) 9.3, Eosinophils (%) (Auto) 0.5, Basophils (%) (Auto) 0.2, Neutrophils # (Auto) 8.14 H, Lymphocytes # (Auto) 1.81, Monocytes # (Auto) 1.03 H, Eosinophils # (Auto) 0.06, Basophils # (Auto) 0.02 Past Records Previous Records: personally reviewed by me [facility] Drug Monitoring Program Search Results: patient reviewed within database Drug Monitoring Findings: 5 separate prescribers of opiates within the past 1 year. Most consistently with Dr. Talavera. Opioid Risk Assessment Risk assessment performed, moderate risk identified Assessment 1. Chronic lumbago 2. Sacroiliitis 3. Myofascial pain 4. Morbid obesity 5. Right knee pain with reported pending TKA Recommendations 1. We discussed that she has residual myofascial component of her pain with potential for underlying SI joint dysfunction relating to her ambulatory dysfunction from right-sided knee pain with a reported pending TKA scheduled for . We discussed poor efficacy of opiate therapy in her current situation and she verbalized understanding. 2. Continue with Voltaren gel apply to the affected area 3 times daily 3. Continue with Medrol Dosepak 4. Progression of Cymbalta dose should be considered in the outpatient setting in an attempt to further address her chronic low back pain and myofascial component 5. Patient was encouraged to utilize cyclobenzaprine to assess effectiveness 6. Patient will continue with hydrocodone 1 tab p.o. twice daily as needed for breakthrough pain 7. Consider PT/OT to address ambulatory dysfunction
--- NOTE | 2017-09-18 09:48 | HISTORY & PHYSICAL EXAMINATION ---
DATE OF ADMISSION: 09/18/2017 CHIEF COMPLAINT: Severe back pain. HISTORY OF PRESENT ILLNESS: A 62-year-old female with past medical history significant for compression fracture of thoracic vertebrae, status post kyphoplasty, bullous pemphigoid, hypertensive heart disease, chronic kidney disease stage III, obesity, spinal stenosis of lumbar region, GERD, osteoporosis , irritable bowel syndrome, mixed urge and stress incontinence, presents with severe back pain. Patient was in ER on09/16/2017 for severe back pain. At that time, she was given Decadron, pain medications, and discharged on Medrol Dosepak. Also saw family doctor recently and had x-ray of the back and was told that they were okay, but the pain was not getting better. Has severe pain in the lower back radiating to the right leg, causing her difficulty ambulation and she came to the ER today again. Was also worried because she was not able to micturate. Ultrasound of the kidneys was done in ER, which was unremarkable.Straight cath her in ER.Currently she states is not able to get up and ambulate and ER physician tried to discharge her to rehab, but she refused to go. She was seen by pain management in 2017 they tried to do shot but it was canceled because of some pilonidal infection. At that time, CAT scan was done, which showed moderate degenerative diseases. Patient denies any other medical problems. She has some headache, no blurred vision, no dizziness, no earache, no runny nose, no sore throat, no cough, no difficulty swallowing. No shortness of breath, no chest pain, no nausea, no vomiting, no abdominal pain. Normal bowel movements. No blood in the stools, no blood in the urine. Currently resting comfortably and hemodynamically stable. ALLERGIES: IBUPROFEN. PAST MEDICAL HISTORY: As mentioned above. PAST SURGICAL HISTORY: Colonoscopy with biopsy, left heart catheterization, bilateral right ganglion cyst removal, hysteroscopy, thoracic kyphoplasty, knee surgery. MEDICATIONS: The patient is on hydrocodone-acetaminophen 1 tablet p.o. b.i.d. p.r.n., diclofenac sodium topically 4 times daily, Cymbalta 30 mg p.o. daily, CellCept 1000 mg p.o. b.i.d., currently added Medrol Dosepak, Prilosec 40 mg p.o. daily, amlodipine 5 mg p.o. daily, Wellbutrin-SR 200 mg p.o. b.i.d., ferrous sulfate 325 mg p.o. daily, folic acid 800 mcg p.o. daily, vitamin C 250 mg p.o. daily, lisinopril 10 mg p.o. daily, Toprol-XL 25 mg p.o. daily, Claritin 10 mg p.o. daily, Ativan 0.5 mg 1 tablet 30 minutes prior to procedure, gluconate 0.05% ointment apply to affected area, Lipitor 80 mg p.o. daily, nystatin apply to groin twice daily, Flexeril 10 mg as directed, nitroglycerin 0.4 mg p.r.n., aspirin enteric-coated 81 mg p.o. daily, , Colace 200 mg p.o. at bedtime, vitamin D 1000 units p.o. daily, vitamin B12 1000 mcg p.o. daily, fish oil once daily. FAMILY HISTORY: Significant for mother with arthritis, uterine cancer, heart disorder, stroke and dementia. Father had diabetes, MD, heart disorder, hypertension, stroke. Sister has thyroid disorder. Another brother had heart disorder. SOCIAL HISTORY: Quit smoking in 2008, prior to that smoked 1/2 pack a day for 30 years. No alcohol use, no drug use. Single. REVIEW OF SYMPTOMS: As per HPI. Rest of review of symptoms is negative. PHYSICAL EXAMINATION: GENERAL: Patient is morbidly obese, not in distress. VITAL SIGNS: Temperature 36.8, pulse 76, respiratory rate 20, blood pressure 127/58, oxygen 98% on room air. HEENT: No pallor, no icterus. Pupils equal, round, reactive to light. NECK: No JVD, no neck masses, no carotid bruits. CARDIOVASCULAR: S1, S2, regular rate and rhythm, no murmur, no gallop. RESPIRATORY: Clear to auscultation bilaterally. No wheezing. No crackles. ABDOMEN: Soft, bowel sounds present, nontender. No distention. CENTRAL NERVOUS SYSTEMS: Cranial nerves II-XII grossly intact. Nonfocal. MUSCULOSKELETAL: Bilateral straight leg raise test positive. LABS: WBC is 11, hemoglobin 10.5, hematocrit 33.6, platelets 321. Sodium 140, potassium 4.2, chloride 109, bicarbonate 22, BUN 31, creatinine 1.2, serum glucose 114, calcium 8.1. Urinalysis, trace ketones. Renal ultrasound, official report pending. ASSESSMENT AND PLAN: 1. This 62-year-old female presents with severe back pain, history of moderate degenerative disease of the back, had a CAT scan done in 2017, at that time seen by pain management, could not get a shot because of pilonidal wound at that time,. Currently has severe pain radiating to the right leg, ambulatory dysfunction. We will get MRI of the lower back, pain control.Home Percocet p.r.n. and IV Toradol. Consult pain management. Monitor on the medical floor. Follow up with MRI. 2. Urinary retention, history of urge and stress incontinence, got straight cath in the ER. We will follow renal ultrasound. Bladder scan. We will monitor. 3. History of compression fractures, thoracic vertebrae, status post kyphoplasty. 4. History of bullous pemphigoid, on CellCept. 5. History of chronic kidney disease stage III at baseline, creatinine 1.2. 6. Obesity. Nutrition counseling. 7. Hypertension. Continue home medications of amlodipine, lisinopril, Toprol-XL, and monitor the blood pressure. 8. History of depression. Continue Cymbalta and Wellbutrin. 9. Gastroesophageal reflux disease. Continue PPI. 10. Iron deficiency anemia. Continue ferrous sulfate. 11. Deep vein thrombosis prophylaxis. Heparin subQ. DISPOSITION: Admit to medical floor. PT and OT prior to discharge. Social service to help with discharge planning. Level 1, full code. MTDD
[2017-09-18] MEDS ORDERED: LORAZEPAM 0.5 MG TAB ONE (11:42)
[2017-09-18] MEDS: CYCLOBENZAPRINE HCL 10 MG TAB PO PRN ×2 (11:45→23:34)
--- NOTE | 2017-09-18 13:18 | DIAGNOSTIC IMAGING REPORT ---
LUMBAR SPINE COMBINATION HISTORY: Pain. Neuropathy. SEVERE BACK PAIN TECHNIQUE: Multiplanar multisequence MRI of the lumbar spine was performed both before and after the intravenous administration of contrast. COMPARISON: None. FINDINGS: For the purpose of the report the L5-S1 disc space will be located on axial image 2030. Nondiagnostic study due to severe patient motion. The study is restricted to a single sagittal T2 sequence as well as an axial T2 and a clinically T1 sequence. There are findings of severe patient motion throughout. There is a grade 1 anterolisthesis of L4 on L5 with a maximum subluxation of 3.7 mm. Findings of mild degenerative disc changes throughout. L1-L2: No significant compromise of the spinal canal L2-L3 no significant compromise of the spinal canal L3-L4: No significant compromise of the spinal canal. L4-L5 severe multifactorial spinal stenosis. L5-S1 mild broad-based disc bulge. Minimal impact anterior thecal sac. Moderate narrowing of the neuroforamina bilaterally. IMPRESSION: 1. Near nondiagnostic exam due to severe patient motion. 2. Severe multifactorial spinal stenosis L4-L5 associated with a grade 1 anterolisthesis of L4 and L5. 3. Moderate compromise of the neuroforamina bilaterally at L4-L5. Impact upon the thecal sac is most prominent in the anterior right position due to posterior disc herniation material. 4. Broad-based bulging disc L5-S1 with moderate narrowing of the neuroforamina bilaterally. The above report was generated using voice recognition software. It may contain grammatical, syntax or spelling errors. Electronically signed by: Wallace Ramon M.D. 09/18/2017 1:16 PM Dictated Date/Time: 09/18/2017 1:09 PM
[2017-09-18] MEDS: KETOROLAC TROMETHAMINE 30 MG/ML VIAL IV PRN ×2 (14:06→20:54)
--- NOTE | 2017-09-18 15:39 | ORTHOPEDIC CONSULTATION ---
DATE OF ADMISSION: 09/18/2017 CHIEF COMPLAINT: Back pain and ambulatory dysfunction. HISTORY OF PRESENT ILLNESS: Caroline is pleasant. She is 62. I remember her from the past. She is a very pleasant lady. She has pretty severe spinal stenosis of lumbar spine L4-L5, low grade spondylolisthesis. This could be worked up as a surgical entity. She is morbidly obese and a lot of other medical problems, so surgery would be our first line of treatment, but it is certainly possible, if she fails to improve. She was evidently in the Emergency Room and sent home, back in and was admitted today because of back pain. PAST SURGICAL HISTORY: Colonoscopy, left heart catheterization, cyst removal, hysteroscopy, thoracic kyphoplasty, knee surgery. ALLERGIES: IBUPROFEN. MEDICATIONS: Numerous. FAMILY HISTORY: Arthritis, uterine carcinoma, heart disorder. SOCIAL HISTORY: Nonsmoker, no alcohol. Single. REVIEW OF SYSTEMS: Denies any blurred vision, double vision, tinnitus, vertigo and malaise. Denies any chest pain, palpitations. No nausea or vomiting. Admits to some back pain, leg pain, leg weakness, paresthesias. OBJECTIVE: GENERAL: Morbidly obese, not in terrible distress. VITAL SIGNS: Afebrile, respiratory rate 20, blood pressure 127/58, 98% on room air. HEENT: Essentially normal. NECK: Clear. CARDIAC: Normal rate, rhythm. It is about 80 beats per minute. LUNGS: Clear. ABDOMEN: Soft, nontender. NEUROLOGICAL: Her cranial nerves are intact. EXTREMITIES: She has difficulty with the lower extremities, straight leg raising bilaterally. Slight weakness, some pain with percussion. Good dorsiflexion, plantar flexion. MRI reviewed in detail. IMPRESSION: Delightful a most pleasant 62-year-old with severe spinal stenosis of lumbar spine, urinary retention and old compression fracture, chronic kidney disease, hypertension, depression, gastrointestinal reflux and a prior deep vein thrombosis. PLAN: I mentioned the onset. This could be worked up as a surgical issue. The size of the patient would make surgery on her spine formidable. I would only do it as last resort and she would really develop profound neurological issues. We will get her involved with some physical therapy. She needs a walker, maybe a scooter. Hopefully, we can turn this around. Pain management also be a good alternative.
[2017-09-18 16:00] VITALS: O2SAT 98
[2017-09-18 16:04] VITALS: BP 124/72; PULSE 82; TEMP 36.7; O2SAT 97
[2017-09-18] MEDS: HYDROCODONE/ACETAMIN 5/325MG TAB PO PRN (17:35)
[2017-09-18] MEDS: POLYETHYLENE (MIRALAX) 17 GM PACK PO PRN (20:31)
[2017-09-18] MEDS: MICONAZOLE NITRATE POWDER 43 GM EXT PRN (20:59)
--- NOTE | 2017-09-18 21:19 | Progress Note ---
Medicine Progress Note Date & Time of Visit: Sep 18, 2017 at 14:20 . Subjective CC: Follow-up visit for back pain. HPI: Persistent low back pain radiating down RLE. ROS: General- no fever, no chills Resp- no cough; no shortness of breath Cardiac- no chest pain, no edema GI- no nausea, no vomiting, no diarrhea - no dysuria . Objective Last 8 Hrs Date Time Temp Pulse Resp B/P (MAP) Pulse Ox O2 Delivery O2 Flow Rate FiO2 09/18/17 16:04 36.7 82 18 124/72 (89) 97 Room Air 09/18/17 16:00 98 Room Air Physical Exam: General- lying in bed; no distress Lungs- clear to auscultation; no respiratory distress Cardiovascular- RRR; no murmur or gallop appreciated; no JVD; no pretibial edema Abdomen- + bowel sounds, soft, nontender Back- lumbar tenderness; low back pain with right SLR 30 degrees Extremities- no cyanosis; no calf tenderness Neuro- alert, oriented; motor strength lower extremities grossly intact Skin- warm & dry . Laboratory Results: Last 24 Hours Test 09/18/17 00:33 09/18/17 01:27 09/18/17 05:52 White Blood Count 11.10 K/uL Red Blood Count 3.66 M/uL Hemoglobin 10.5 g/dL Hematocrit 33.6 % Mean Corpuscular Volume 91.8 fL Mean Corpuscular Hemoglobin 28.7 pg Mean Corpuscular Hemoglobin Concent 31.3 g/dl Platelet Count 321 K/uL Mean Platelet Volume 10.2 fL Neutrophils (%) (Auto) 73.3 % Lymphocytes (%) (Auto) 16.3 % Monocytes (%) (Auto) 9.3 % Eosinophils (%) (Auto) 0.5 % Basophils (%) (Auto) 0.2 % Neutrophils # (Auto) 8.14 K/uL Lymphocytes # (Auto) 1.81 K/uL Monocytes # (Auto) 1.03 K/uL Eosinophils # (Auto) 0.06 K/uL Basophils # (Auto) 0.02 K/uL RDW Standard Deviation 50.9 fL RDW Coefficient of Variation 15.0 % Immature Granulocyte % (Auto) 0.4 % Immature Granulocyte # (Auto) 0.04 K/uL Sodium Level 140 mmol/L Potassium Level 4.2 mmol/L Chloride Level 109 mmol/L Carbon Dioxide Level 22 mmol/L Anion Gap 9.0 mmol/L Blood Urea Nitrogen 31 mg/dl Creatinine 1.26 mg/dl Est Creatinine Clear Calc Drug Dose 66.8 ml/min Estimated GFR () 53.6 Estimated GFR (Non- 46.3 BUN/Creatinine Ratio 25.0 Random Glucose 114 mg/dl Calcium Level 8.1 mg/dl Urine Color YELLOW Urine Appearance CLOUDY Urine pH 5.0 Urine Specific [place] 1.034 Urine Protein NEG Urine Glucose (UA) NEG Urine Ketones TRACE Urine Occult Blood NEG Urine Nitrite NEG Urine Bilirubin NEG Urine Urobilinogen NEG Urine Leukocyte Esterase NEG Urine WBC (Auto) 1-5 /hpf Urine RBC (Auto) 0-4 /hpf Urine Hyaline Casts (Auto) 5-10 /lpf Urine Epithelial Cells (Auto) >30 /lpf Urine Bacteria (Auto) NEG Prothrombin Time 10.7 SECONDS Prothromb Time International Ratio 1.0 Assessment & Plan BACK PAIN MRI lumbar spine demonstrated spinal stenosis and bulging disc L5-S1. Consult Ortho- known to Dr. Nesbitt. PT / OT. HYPERTENSION Continue metoprolol, lisinopril, amlodipine. GERD Continue PPI. 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 MORBID OBESITY Wt 134 kg, BMI 47.7. AHA diet. VTE PROPHYLAXIS SQ heparin. Ambulate. DISPOSITION To be determined. Family Medicine follow-up with Dr. Marcus Talavera. . Current Inpatient Medications: Current Inpatient Medications Medications (Trade) Dose Ordered Sig/Sukhdeep Route Start Time Stop Time Status Last Admin Dose Admin Heparin Sodium (Porcine) (Heparin Sq 5000 Unit/0.5ml) 5,000 unit Q8H SQ 09/18/17 07:00 10/18/17 06:59 09/18/17 16:02 5,000 UNIT Acetaminophen (Tylenol Tab) 650 mg Q4H PRN PO 09/18/17 04:00 10/18/17 03:59 Al Hydrox/Mg Hydrox/Simethicone (Maalox Max Susp) 15 ml Q4H PRN PO 09/18/17 04:00 10/18/17 03:59 Polyethylene (Miralax Powder Packet) 17 gm DAILY PRN PO 09/18/17 04:00 10/18/17 03:59 09/18/17 20:31 17 GM Ondansetron HCl (Zofran Inj) 4 mg Q6H PRN IV 09/18/17 04:00 10/18/17 03:59 Amlodipine Besylate (Norvasc Tab) 5 mg DAILY PO 09/18/17 08:00 10/18/17 08:59 09/18/17 08:22 5 MG Aspirin (Ecotrin Tab) 81 mg DAILY PO 09/18/17 08:00 10/18/17 08:59 09/18/17 08:21 81 MG Atorvastatin Calcium (Lipitor Tab) 80 mg DAILY PO 09/18/17 08:00 10/18/17 08:59 09/18/17 08:22 80 MG Bupropion HCl (Wellbutrin-Sr Tab) 200 mg BID PO 09/18/17 08:00 10/18/17 08:59 09/18/17 20:50 200 MG Cyclobenzaprine HCl (Flexeril Tab) 10 mg TID PRN PO 09/18/17 04:00 10/18/17 03:59 09/18/17 11:45 10 MG Diclofenac Sodium (Voltaren 1% Top Gel) 1 appln QID EXT 09/18/17 08:00 10/18/17 08:59 09/18/17 20:32 1 APPLN Duloxetine HCl (Cymbalta Cap) 30 mg DAILY PO 09/18/17 08:00 10/18/17 08:59 09/18/17 13:42 30 MG Fluocinonide (Lidex Oint) 1 appln BID PRN EXT 09/18/17 04:00 10/18/17 03:59 Acetaminophen/ Hydrocodone Bitart ([place] 5/325 Tab) 1 tab BID PRN PO 09/18/17 04:00 10/02/17 03:59 09/18/17 17:35 1 TAB Lisinopril (Zestril Tab) 10 mg DAILY PO 09/18/17 08:00 10/18/17 08:59 09/18/17 08:23 10 MG Loratadine (Claritin Tab) 10 mg DAILY PO 09/18/17 08:00 10/18/17 08:59 09/18/17 08:21 10 MG Metoprolol Succinate (Toprol Xl Tab) 25 mg DAILY PO 09/18/17 08:00 10/18/17 08:59 09/18/17 08:22 25 MG Mycophenolate Mofetil (Cellcept Cap) 1,000 mg BIDM PO 09/18/17 08:00 10/18/17 07:59 09/18/17 17:36 1,000 MG Nitroglycerin (Nitrostat Tab) 0.4 mg PRN UT 09/18/17 04:00 10/18/17 03:59 Nystatin (Mycostatin Powder) 1 appln BID EXT 09/18/17 08:00 10/18/17 08:59 09/18/17 20:32 1 APPLN Triamcinolone Acetonide (Kenalog 0.1% Cream) 1 appln BID PRN EXT 09/18/17 04:00 10/18/17 03:59 Ascorbic Acid (Vitamin C Tab) 250 mg DAILY PO 09/18/17 08:00 10/18/17 08:59 09/18/17 08:23 250 MG Cholecalciferol (Vitamin D Tab) 2,000 inter.unit DAILY PO 09/18/17 08:00 10/18/17 08:59 09/18/17 08:23 2,000 INTER.UNIT Ferrous Sulfate (Feosol Tab) 325 mg DAILY PO 09/18/17 08:00 10/18/17 08:59 09/18/17 08:21 325 MG Folic Acid (Folvite Tab) 800 mcg DAILY PO 09/18/17 08:00 10/18/17 08:59 09/18/17 08:22 800 MCG Pantoprazole Sodium (Protonix Tab) 40 mg DAILY PO 09/18/17 08:00 10/18/17 08:59 09/18/17 08:22 40 MG Ketorolac Tromethamine (Toradol Inj) 30 mg Q6H PRN IV 09/18/17 04:15 09/23/17 04:14 09/18/17 20:54 30 MG Miscellaneous (Iv Fluids Completed) 1 ea PRN PRN N/A 09/18/17 04:45 09/18/18 04:44 Methylprednisolone (Medrol Tab) 4 mg 07,13,18 PO 09/19/17 07:00 09/19/17 18:01 Methylprednisolone (Medrol Tab) 8 mg HS PO 09/19/17 21:00 09/19/17 21:01 Methylprednisolone (Medrol Tab) 4 mg 07,,18,21 PO 09/20/17 07:00 09/20/17 21:01 Methylprednisolone (Medrol Tab) 4 mg 07,13,21 PO 09/21/17 07:00 09/21/17 21:01 Methylprednisolone (Medrol Tab) 4 mg 07,21 PO 09/22/17 07:00 09/22/17 21:01 Methylprednisolone (Medrol Tab) 4 mg 07 PO 09/23/17 07:00 09/23/17 07:01 Miconazole Nitrate (Desenex Powder) 1 appln PRN PRN EXT 09/18/17 09:00 10/18/17 08:59 09/18/17 20:59 1 APPLN
[2017-09-18 22:45] VITALS: BP 161/83; PULSE 75; TEMP 36.5; O2SAT 97
[2017-09-19] MEDS: KETOROLAC TROMETHAMINE 30 MG/ML VIAL IV PRN ×2 (02:49→11:47)
[2017-09-19] MEDS: HEPARIN SOD 5000 UNIT/0.5 ML CARP SQ SCH ×3 (06:35→20:14)
[2017-09-19] MEDS: METHYLPREDNISOLONE 4 MG TAB PO SCH ×3 (06:36→18:31)
[2017-09-19] MEDS: HYDROCODONE/ACETAMIN 5/325MG TAB PO PRN ×3 (06:43→22:04)
[2017-09-19 06:49] LABS: BASO % 0.1 %; BASO ABS # 0.01 K/uL (0-0.2); HEMATOCRIT 34.5 % (37-47); IG# 0.09 K/uL (0.00-0.02); LYMPH % 14.6 %; LYMPH ABS # 1.45 K/uL (1.2-3.4); MEAN CELL VOLUME 90.8 fL (80-100); MEAN CORPUSCULAR HEMOGLOBIN 28.9 pg (25-34); MEAN CORPUSCULAR HGB CONC 31.9 g/dl (32-36); MEAN PLATELET VOLUME 9.9 fL (7.4-10.4); MONO % 7.7 %; MONO ABS # 0.77 K/uL (0.11-0.59); NEUT % 76.7 %; NEUT ABS # 7.62 K/uL (1.4-6.5); PLATELET COUNT 291 K/uL (130-400); RED CELL DISTRIBUTION WIDTH CV 14.7 % (11.5-14.5); RED CELL DISTRIBUTION WIDTH SD 48.7 fL (36.4-46.3); WHITE BLOOD COUNT 9.94 K/uL (4.8-10.8)
[2017-09-19 07:03] LABS: CALCIUM 8.3 mg/dl (8.5-10.1); CREATININE 1.09 mg/dl (0.60-1.20); POTASSIUM 4.4 mmol/L (3.5-5.1)
[2017-09-19 07:47] VITALS: BP 156/88; PULSE 74; TEMP 36.6; O2SAT 94
[2017-09-19] MEDS: NYSTATIN POWDER 15GM BTL EXT SCH ×2 (08:21→19:43)
[2017-09-19] MEDS: DICLOFENAC SOD 1% GEL 100 GM TUBE EXT SCH ×4 (08:22→20:00)
[2017-09-19] MEDS: MYCOPHENOLATE MOFETIL 250 MG CAP (CELLCEPT) PO SCH ×2 (08:22→16:24)
[2017-09-19] MEDS: LORATADINE 10 MG TAB PO SCH (08:22)
[2017-09-19] MEDS: ASPIRIN 81 MG ECTAB PO SCH (08:23)
[2017-09-19] MEDS: ATORVASTATIN 40 MG TAB PO SCH (08:24)
[2017-09-19] MEDS: ASCORBIC ACID 500 MG TAB PO SCH (08:24)
[2017-09-19] MEDS: PANTOprazole SOD 40 MG TAB PO SCH (08:24)
[2017-09-19] MEDS: AMLODIPINE BESYLATE 5 MG TAB PO SCH (08:24)
[2017-09-19] MEDS: FERROUS SULFATE 325 MG TAB PO SCH (08:24)
[2017-09-19] MEDS: LISINOPRIL 10 MG TAB PO SCH (08:25)
[2017-09-19] MEDS: CHOLECALCIFEROL 1000 INTER.UNIT TAB PO SCH (08:25)
[2017-09-19] MEDS: CYCLOBENZAPRINE HCL 10 MG TAB PO PRN (08:25)
[2017-09-19] MEDS: BuPROPion SR 100 MG TABCR PO SCH ×2 (08:25→19:42)
--- NOTE | 2017-09-19 08:53 | Pain Management Progress Note ---
Pain Management Progress Note Date of Service Sep 19, 2017. Subjective Mrs. Paulino is reporting minimal axial low back pain at this time. She describes aching discomfort with some radiation towards the right lower extremity. She did experience some right-sided S1 distribution radicular pain with paresthesias to the leg last evening. The patient was out of bed and reported minimal discomfort. She did have hydrocodone earlier this morning which has been efficacious at diminishing her pain. She is able to move around more freely in the bed without exacerbation of low back pain. She is planning to participate in PT later today in hopes of discharged home. She did complete MRI of the lumbar spine yesterday which revealed progression of lumbar spinal canal stenosis at L4-5. Patient denies any bowel or bladder incontinence at this time. She has not had a bowel movement over the past few days but denies abdominal pain or fullness sensation. Patient has no further constitutional complaints. Plan of care discussed with Dr. Coyle. Objective Vital Signs: Last Vital Signs Documentation Date Time Temp Pulse Resp B/P (MAP) Pulse Ox O2 Delivery O2 Flow Rate FiO2 09/19/17 07:47 36.6 74 20 156/88 (110) 94 Room Air Physical Exam: General: Patient lying quietly upon entering the room in no acute distress. Patient was able to move around in the bed freely without exacerbation of pain. Speech and thought process was appropriate. Cognition was intact. Back/spine: Moderate tenderness of the lumbosacral region which remains nonfocal. Lower extremities: SLR negative bilaterally. Minimal exacerbation of low back pain appreciated during SLR maneuvering. Resisted hip flexion extension produced 5/5 strength without exacerbation of axial back pain. Neurologic: Cranial nerves grossly intact. Ambulation not witness. Laboratory Laboratory Findings 09/19/17 06:39 Red Blood Count 3.80 L, Mean Corpuscular Volume 90.8, Mean Corpuscular Hemoglobin 28.9, Mean Corpuscular Hemoglobin Concent 31.9 L, Mean Platelet Volume 9.9, Neutrophils (%) (Auto) 76.7, Lymphocytes (%) (Auto) 14.6, Monocytes (%) (Auto) 7.7, Eosinophils (%) (Auto) 0.0, Basophils (%) (Auto) 0.1, Neutrophils # (Auto) 7.62 H, Lymphocytes # (Auto) 1.45, Monocytes # (Auto) 0.77 H, Eosinophils # (Auto) 0.00, Basophils # (Auto) 0.01 Imaging MRI: reports reviewed MRI Findings Patient: BREANN PAULINO Address1: [address] [place] [address] Rec: [id number] Address2: Acct ID: [id number] [facility] Zip: [place] [address] Date: 1955 Sex: F Room/Bed: [facility] Ref Phy: Marcus Talavera D.O. SC: Rebecca Att Phy: Ernesto Borges M.D. Report #: [id number] Jaqueline Phy: Marcus Talavera D.O. Test: LSCO Admit Phy: Jean Carlos Cheng MD Nurse Anesthetist: CUSTCH Interpreting Phy: Wallace Ramon M.D. Diagnosis: AMBULATORY DYSFUNCTION, SEVERE LOW BACK PAIN Ordering Phy: Jean Carlos Cheng MD Service Date: 09/18/17 Admit Date: 09/18/1806/30/18 MNE: [id number] CONF: DICTATED BY: Wallace Ramon M.D.]] CC: Ernesto Borges M.D. Newhouser, Shane D., Baylee.OJean Carlos Desai MD Endcc: [~ rep ct add3]] LUMBAR SPINE COMBINATION HISTORY: Pain. Neuropathy. SEVERE BACK PAIN TECHNIQUE: Multiplanar multisequence MRI of the lumbar spine was performed both before and after the intravenous administration of contrast. COMPARISON: None. FINDINGS: For the purpose of the report the L5-S1 disc space will be located on axial image 2030. Nondiagnostic study due to severe patient motion. The study is restricted to a single sagittal T2 sequence as well as an axial T2 and a clinically T1 sequence. There are findings of severe patient motion throughout. There is a grade 1 anterolisthesis of L4 on L5 with a maximum subluxation of 3.7 mm. Findings of mild degenerative disc changes throughout. L1-L2: No significant compromise of the spinal canal L2-L3 no significant compromise of the spinal canal L3-L4: No significant compromise of the spinal canal. L4-L5 severe multifactorial spinal stenosis. L5-S1 mild broad-based disc bulge. Minimal impact anterior thecal sac. Moderate narrowing of the neuroforamina bilaterally. IMPRESSION: 1. Near nondiagnostic exam due to severe patient motion. 2. Severe multifactorial spinal stenosis L4-L5 associated with a grade 1 anterolisthesis of L4 and L5. 3. Moderate compromise of the neuroforamina bilaterally at L4-L5. Impact upon the thecal sac is most prominent in the anterior right position due to posterior disc herniation material. 4. Broad-based bulging disc L5-S1 with moderate narrowing of the neuroforamina bilaterally. The above report was generated using voice recognition software. It may contain grammatical, syntax or spelling errors. Electronically signed by: Wallace Ramon M.D. 09/18/2017 1:16 PM Dictated Date/Time: 09/18/2017 1:09 PM The status of this report is Signed. Draft = Not yet reviewed or approved by Radiologist. Signed = Reviewed and approved by Radiologist. <AttendingPhy>Ernesto Borges M.D.</AttendingPhy> <FamilyPhy>Marcus Talavera , D.OEdie</FamilyPhy> <PrimaryPhy>Marcus Talavera, D.O.</PrimaryPhy> < UnitNumber>[id number]</UnitNumber> <VisitNumber>[id number]</VisitNumber> < PatientName>BREANN PAULINO</PatientName> <DateOfBirth>1955</DateOfBirth> < Location>[facility]</Location> <ServiceDate>09/18/17</ServiceDate> <MNE>ESINDI</MNE> < OrderingPhy>Jean Carlos Cheng MD</OrderingPhy> <OrderingPhyMNE>f rep ord dr cerda </OrderingPhyMNE> <DictatingPhyMNE>f rep dict dr cerda</DictatingPhyMNE> < CCListMNE>f rep ct ameee</CCListMNE> <AdmittingPhyMNE>f pt admit dr cerda</ AdmittingPhyMNE> <AttendingPhyMNE Assessment 1. Chronic lumbago 2. Severe multifactorial spinal stenosis at L4-5 associated with a grade 1 anterolisthesis of L4 on L5 3. Broad-based disc bulging L5-S1 with moderate narrowing of the neural foramina bilaterally 4. Sacroiliitis 5. Morbid obesity 6. Myofascial pain 7. Chronic right knee pain with reported pending TKA Recommendations 1. MRI findings were reviewed with the patient. We discussed the possibility pursuing MARIFER in the outpatient setting versus pursuing SI joint injection previously discussed. Will plan for reevaluation in the outpatient setting upon discharge for interventional treatment planning at that time. 2. Patient was encouraged to participate in PT/OT today to assess functionality for discharge planning purposes 3. Patient will maintain her current medical regimen without change 4. Patient will contact our clinic upon discharge to schedule follow-up evaluation Thank you for allowing us to participate in the care of Mrs. Paulino
[2017-09-19] MEDS: DULOXETINE (CYMBALTA) 30 MG CAP PO SCH (10:24)
[2017-09-19] MEDS: FoLIC ACID TAB 400 MCG TAB PO SCH (10:25)
[2017-09-19] MEDS: METOPROLOL SUCC 25MG EXT REL TAB PO SCH (10:25)
[2017-09-19] MEDS: POLYETHYLENE (MIRALAX) 17 GM PACK PO PRN (13:37)
[2017-09-19] MEDS ORDERED: POLYETHYLENE (MIRALAX) 17 GM PACK PO ONE (13:46)
[2017-09-19 15:05] VITALS: BP 157/80; PULSE 76; TEMP 36.7; O2SAT 98
[2017-09-19 16:00] VITALS: O2SAT 98
[2017-09-19] MEDS: DOCUSATE SODIUM/SENNA 50/8.6MG TAB PO SCH (19:43)
--- NOTE | 2017-09-19 20:26 | Progress Note ---
Medicine Progress Note Date & Time of Visit: Sep 19, 2017 at 13:10 . Subjective CC: Follow-up visit for back pain. HPI: Persistent low back pain radiating down RLE, worse after PT. Constipated. Depressed- would like to be seen by Psychiatry. ROS: General- no fever, no chills Resp- no cough; no shortness of breath Cardiac- no chest pain, no edema GI- no nausea, no vomiting, no diarrhea - no dysuria . Objective Last 8 Hrs Date Time Temp Pulse Resp B/P (MAP) Pulse Ox O2 Delivery O2 Flow Rate FiO2 09/19/17 16:00 98 Room Air 09/19/17 15:05 36.7 76 22 157/80 (105) 98 Room Air Physical Exam: General- lying in bed; no distress Lungs- clear to auscultation; no respiratory distress Cardiovascular- RRR; no murmur or gallop appreciated; no JVD; no pretibial edema Abdomen- + bowel sounds, soft, nontender Back- lumbar tenderness; low back pain with right SLR 30 degrees Extremities- no cyanosis; no calf tenderness Neuro- alert, oriented; motor strength lower extremities grossly intact Skin- warm & dry . Laboratory Results: Last 24 Hours Test 09/19/17 06:39 White Blood Count 9.94 K/uL Red Blood Count 3.80 M/uL Hemoglobin 11.0 g/dL Hematocrit 34.5 % Mean Corpuscular Volume 90.8 fL Mean Corpuscular Hemoglobin 28.9 pg Mean Corpuscular Hemoglobin Concent 31.9 g/dl Platelet Count 291 K/uL Mean Platelet Volume 9.9 fL Neutrophils (%) (Auto) 76.7 % Lymphocytes (%) (Auto) 14.6 % Monocytes (%) (Auto) 7.7 % Eosinophils (%) (Auto) 0.0 % Basophils (%) (Auto) 0.1 % Neutrophils # (Auto) 7.62 K/uL Lymphocytes # (Auto) 1.45 K/uL Monocytes # (Auto) 0.77 K/uL Eosinophils # (Auto) 0.00 K/uL Basophils # (Auto) 0.01 K/uL RDW Standard Deviation 48.7 fL RDW Coefficient of Variation 14.7 % Immature Granulocyte % (Auto) 0.9 % Immature Granulocyte # (Auto) 0.09 K/uL Sodium Level 138 mmol/L Potassium Level 4.4 mmol/L Chloride Level 110 mmol/L Carbon Dioxide Level 21 mmol/L Anion Gap 7.0 mmol/L Blood Urea Nitrogen 30 mg/dl Creatinine 1.09 mg/dl Est Creatinine Clear Calc Drug Dose 77.3 ml/min Estimated GFR () 63.9 Estimated GFR (Non- 55.1 BUN/Creatinine Ratio 27.2 Random Glucose 116 mg/dl Calcium Level 8.3 mg/dl Magnesium Level 2.3 mg/dl Assessment & Plan BACK PAIN MRI lumbar spine demonstrated spinal stenosis and bulging disc L5-S1. Ortho consult with Dr. Nesbitt; conservative management recommended. PT / OT. Pain management. HYPERTENSION Continue metoprolol, lisinopril, amlodipine. GERD Continue PPI. 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 MORBID OBESITY Wt 134 kg, BMI 47.7. AHA diet. CONSTIPATION Bowel regimen as ordered. DEPRESSION Consult Psych. VTE PROPHYLAXIS SQ heparin. Ambulate. DISPOSITION To be determined. Family Medicine follow-up with Dr. Marcus Talavera. . Current Inpatient Medications: Current Inpatient Medications Medications (Trade) Dose Ordered Sig/Sukhdeep Route Start Time Stop Time Status Last Admin Dose Admin Heparin Sodium (Porcine) (Heparin Sq 5000 Unit/0.5ml) 5,000 unit Q8H SQ 09/18/17 07:00 10/18/17 06:59 09/19/17 16:23 5,000 UNIT Acetaminophen (Tylenol Tab) 650 mg Q4H PRN PO 09/18/17 04:00 10/18/17 03:59 Al Hydrox/Mg Hydrox/Simethicone (Maalox Max Susp) 15 ml Q4H PRN PO 09/18/17 04:00 10/18/17 03:59 Polyethylene (Miralax Powder Packet) 17 gm DAILY PRN PO 09/18/17 04:00 10/18/17 03:59 09/19/17 13:37 17 GM Ondansetron HCl (Zofran Inj) 4 mg Q6H PRN IV 09/18/17 04:00 10/18/17 03:59 Amlodipine Besylate (Norvasc Tab) 5 mg DAILY PO 09/18/17 08:00 10/18/17 08:59 09/19/17 08:24 5 MG Aspirin (Ecotrin Tab) 81 mg DAILY PO 09/18/17 08:00 10/18/17 08:59 09/19/17 08:23 81 MG Atorvastatin Calcium (Lipitor Tab) 80 mg DAILY PO 09/18/17 08:00 10/18/17 08:59 09/19/17 08:24 80 MG Bupropion HCl (Wellbutrin-Sr Tab) 200 mg BID PO 09/18/17 08:00 10/18/17 08:59 09/19/17 19:42 200 MG Cyclobenzaprine HCl (Flexeril Tab) 10 mg TID PRN PO 09/18/17 04:00 10/18/17 03:59 09/19/17 08:25 10 MG Diclofenac Sodium (Voltaren 1% Top Gel) 1 appln QID EXT 09/18/17 08:00 10/18/17 08:59 09/19/17 19:43 1 APPLN Duloxetine HCl (Cymbalta Cap) 30 mg DAILY PO 09/18/17 08:00 10/18/17 08:59 09/19/17 10:24 30 MG Fluocinonide (Lidex Oint) 1 appln BID PRN EXT 09/18/17 04:00 10/18/17 03:59 Acetaminophen/ Hydrocodone Bitart ([place] 5/325 Tab) 1 tab BID PRN PO 09/18/17 04:00 10/02/17 03:59 09/19/17 14:11 1 TAB Lisinopril (Zestril Tab) 10 mg DAILY PO 09/18/17 08:00 10/18/17 08:59 09/19/17 08:25 10 MG Loratadine (Claritin Tab) 10 mg DAILY PO 09/18/17 08:00 10/18/17 08:59 09/19/17 08:22 10 MG Metoprolol Succinate (Toprol Xl Tab) 25 mg DAILY PO 09/18/17 08:00 10/18/17 08:59 09/19/17 10:25 25 MG Mycophenolate Mofetil (Cellcept Cap) 1,000 mg BIDM PO 09/18/17 08:00 10/18/17 07:59 09/19/17 16:24 1,000 MG Nitroglycerin (Nitrostat Tab) 0.4 mg PRN UT 09/18/17 04:00 10/18/17 03:59 Nystatin (Mycostatin Powder) 1 appln BID EXT 09/18/17 08:00 10/18/17 08:59 09/19/17 19:43 1 APPLN Triamcinolone Acetonide (Kenalog 0.1% Cream) 1 appln BID PRN EXT 09/18/17 04:00 10/18/17 03:59 Ascorbic Acid (Vitamin C Tab) 250 mg DAILY PO 09/18/17 08:00 10/18/17 08:59 09/19/17 08:24 250 MG Cholecalciferol (Vitamin D Tab) 2,000 inter.unit DAILY PO 09/18/17 08:00 10/18/17 08:59 09/19/17 08:25 2,000 INTER.UNIT Ferrous Sulfate (Feosol Tab) 325 mg DAILY PO 09/18/17 08:00 10/18/17 08:59 09/19/17 08:24 325 MG Folic Acid (Folvite Tab) 800 mcg DAILY PO 09/18/17 08:00 10/18/17 08:59 09/19/17 10:25 800 MCG Pantoprazole Sodium (Protonix Tab) 40 mg DAILY PO 09/18/17 08:00 10/18/17 08:59 09/19/17 08:24 40 MG Ketorolac Tromethamine (Toradol Inj) 30 mg Q6H PRN IV 09/18/17 04:15 09/23/17 04:14 09/19/17 11:47 30 MG Miscellaneous (Iv Fluids Completed) 1 ea PRN PRN N/A 09/18/17 04:45 09/18/18 04:44 Methylprednisolone (Medrol Tab) 8 mg HS PO 09/19/17 21:00 09/19/17 21:01 09/19/17 19:42 8 MG Methylprednisolone (Medrol Tab) 4 mg 07,13,18,21 PO 09/20/17 07:00 09/20/17 21:01 Methylprednisolone (Medrol Tab) 4 mg 07,13,21 PO 09/21/17 07:00 09/21/17 21:01 Methylprednisolone (Medrol Tab) 4 mg 07,21 PO 09/22/17 07:00 09/22/17 21:01 Methylprednisolone (Medrol Tab) 4 mg 07 PO 09/23/17 07:00 09/23/17 07:01 Miconazole Nitrate (Desenex Powder) 1 appln PRN PRN EXT 09/18/17 09:00 10/18/17 08:59 09/18/17 20:59 1 APPLN Senna/Docusate Sodium (Senokot S Tab) 2 tab HS PO 09/19/17 21:00 10/19/17 20:59 09/19/17 19:43 2 TAB
[2017-09-19] MEDS ORDERED: METHYLPREDNISOLONE 4 MG TAB PO SCH (21:00)
[2017-09-19 22:30] VITALS: BP 144/74; PULSE 78; TEMP 36.8; O2SAT 97
[2017-09-20] MEDS ORDERED: LORAZEPAM 0.5 MG TAB PO ONE
[2017-09-20] MEDS: CYCLOBENZAPRINE HCL 10 MG TAB PO PRN ×3 (00:38→23:36)
[2017-09-20] MEDS: KETOROLAC TROMETHAMINE 30 MG/ML VIAL IV PRN ×4 (00:44→23:41)
[2017-09-20] MEDS: HEPARIN SOD 5000 UNIT/0.5 ML CARP SQ SCH ×3 (06:34→20:19)
[2017-09-20] MEDS: METHYLPREDNISOLONE 4 MG TAB PO SCH ×4 (06:36→20:17)
[2017-09-20] MEDS: ATORVASTATIN 40 MG TAB PO SCH (07:21)
[2017-09-20] MEDS: NYSTATIN POWDER 15GM BTL EXT SCH ×2 (07:21→20:15)
[2017-09-20] MEDS: BuPROPion SR 100 MG TABCR PO SCH ×2 (07:21→20:16)
[2017-09-20] MEDS: AMLODIPINE BESYLATE 5 MG TAB PO SCH (07:21)
[2017-09-20] MEDS: DULOXETINE (CYMBALTA) 30 MG CAP PO SCH (07:22)
[2017-09-20] MEDS: FoLIC ACID TAB 400 MCG TAB PO SCH (07:22)
[2017-09-20] MEDS: PANTOprazole SOD 40 MG TAB PO SCH (07:22)
[2017-09-20] MEDS: FERROUS SULFATE 325 MG TAB PO SCH (07:22)
[2017-09-20] MEDS: LORATADINE 10 MG TAB PO SCH (07:22)
[2017-09-20] MEDS: CHOLECALCIFEROL 1000 INTER.UNIT TAB PO SCH (07:22)
[2017-09-20] MEDS: METOPROLOL SUCC 25MG EXT REL TAB PO SCH (07:22)
[2017-09-20] MEDS: MYCOPHENOLATE MOFETIL 250 MG CAP (CELLCEPT) PO SCH ×2 (07:22→16:28)
[2017-09-20] MEDS: ASCORBIC ACID 500 MG TAB PO SCH (07:23)
[2017-09-20] MEDS: LISINOPRIL 10 MG TAB PO SCH (07:23)
[2017-09-20 07:36] VITALS: BP 153/96; PULSE 92; TEMP 36.5; O2SAT 98
[2017-09-20] MEDS: DICLOFENAC SOD 1% GEL 100 GM TUBE EXT SCH ×5 (08:09→21:44)
[2017-09-20] MEDS: ASPIRIN 81 MG ECTAB PO SCH (08:09)
[2017-09-20] MEDS: HYDROCODONE/ACETAMIN 5/325MG TAB PO PRN (10:21)
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
[2017-09-20 13:40] VITALS: BP 153/96; PULSE 92; TEMP 36.5; O2SAT 98
--- NOTE | 2017-09-20 15:09 | Progress Note ---
Medicine Progress Note Date & Time of Visit: Sep 20, 2017 . Subjective CC: Follow-up visit for back pain and other problems. HPI: Initially planning on going home today. Back pain seemed better and she was doing fairly well in physical therapy. Arrangements were being made for discharge. Patient was then a significant amount of distress due to back pain as she was trying to get preparation for discharge. She was crying and very uncomfortable and was clear that she would not be able to care for herself at home. ROS: General- no fever, no chills Resp- no cough; no shortness of breath Cardiac- no chest pain, no edema GI- bowel movement yesterday, but still feels constipated no nausea, no vomiting , no diarrhea - no dysuria . Objective Last 8 Hrs Date Time Temp Pulse Resp B/P (MAP) Pulse Ox O2 Delivery O2 Flow Rate FiO2 09/20/17 13:40 36.5 92 18 98 Room Air 09/20/17 08:52 Room Air 09/20/17 07:36 36.5 92 18 153/96 (115) 98 Physical Exam: General- no acute distress Lungs- clear to auscultation; no respiratory distress Cardiovascular- RRR; no murmur or gallop appreciated; no JVD; no pretibial edema Abdomen- + bowel sounds, soft, nontender Back- lumbar tenderness Extremities- no cyanosis; no calf tenderness Neuro- alert, oriented; motor strength lower extremities grossly intact Skin- warm & dry . Assessment & Plan BACK PAIN MRI lumbar spine demonstrated spinal stenosis and bulging disc L5-S1. Ortho consult with Dr. Nesbitt; conservative management recommended. PT / OT. Pain Management consulted. Planning on discharge to home with outpatient follow-up, but patient still very uncomfortable and unable to perform ADLs independently. Will probably need skilled care. HYPERTENSION Continue metoprolol, lisinopril, amlodipine. GERD Continue PPI. 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 MORBID OBESITY Wt 134 kg, BMI 47.7. AHA diet. CONSTIPATION Bowel regimen as ordered. DEPRESSION Consult Psych. VTE PROPHYLAXIS SQ heparin. Ambulate. DISPOSITION Planning on discharge to home with outpatient follow-up, but patient still very uncomfortable and unable to perform ADLs independently. Will probably need skilled care. Case Management consulted. Family Medicine follow-up with Dr. Marcus Talavera. . Current Inpatient Medications: Current Inpatient Medications Medications (Trade) Dose Ordered Sig/Sukhdeep Route Start Time Stop Time Status Last Admin Dose Admin Heparin Sodium (Porcine) (Heparin Sq 5000 Unit/0.5ml) 5,000 unit Q8H SQ 09/18/17 07:00 10/18/17 06:59 09/20/17 06:34 5,000 UNIT Acetaminophen (Tylenol Tab) 650 mg Q4H PRN PO 09/18/17 04:00 10/18/17 03:59 Al Hydrox/Mg Hydrox/Simethicone (Maalox Max Susp) 15 ml Q4H PRN PO 09/18/17 04:00 10/18/17 03:59 Polyethylene (Miralax Powder Packet) 17 gm DAILY PRN PO 09/18/17 04:00 10/18/17 03:59 09/19/17 13:37 17 GM Ondansetron HCl (Zofran Inj) 4 mg Q6H PRN IV 09/18/17 04:00 10/18/17 03:59 Amlodipine Besylate (Norvasc Tab) 5 mg DAILY PO 09/18/17 08:00 10/18/17 08:59 09/20/17 07:21 5 MG Aspirin (Ecotrin Tab) 81 mg DAILY PO 09/18/17 08:00 10/18/17 08:59 09/20/17 08:09 81 MG Atorvastatin Calcium (Lipitor Tab) 80 mg DAILY PO 09/18/17 08:00 10/18/17 08:59 09/20/17 07:21 80 MG Bupropion HCl (Wellbutrin-Sr Tab) 200 mg BID PO 09/18/17 08:00 10/18/17 08:59 09/20/17 07:21 200 MG Cyclobenzaprine HCl (Flexeril Tab) 10 mg TID PRN PO 09/18/17 04:00 10/18/17 03:59 09/20/17 10:21 10 MG Diclofenac Sodium (Voltaren 1% Top Gel) 1 appln QID EXT 09/18/17 08:00 10/18/17 08:59 09/20/17 12:08 1 APPLN Duloxetine HCl (Cymbalta Cap) 30 mg DAILY PO 09/18/17 08:00 10/18/17 08:59 09/20/17 07:22 30 MG Fluocinonide (Lidex Oint) 1 appln BID PRN EXT 09/18/17 04:00 10/18/17 03:59 Acetaminophen/ Hydrocodone Bitart ([place] 5/325 Tab) 1 tab BID PRN PO 09/18/17 04:00 10/02/17 03:59 09/20/17 10:21 1 TAB Lisinopril (Zestril Tab) 10 mg DAILY PO 09/18/17 08:00 10/18/17 08:59 09/20/17 07:23 10 MG Loratadine (Claritin Tab) 10 mg DAILY PO 09/18/17 08:00 10/18/17 08:59 09/20/17 07:22 10 MG Metoprolol Succinate (Toprol Xl Tab) 25 mg DAILY PO 09/18/17 08:00 10/18/17 08:59 09/20/17 07:22 25 MG Mycophenolate Mofetil (Cellcept Cap) 1,000 mg BIDM PO 09/18/17 08:00 10/18/17 07:59 09/20/17 07:22 1,000 MG Nitroglycerin (Nitrostat Tab) 0.4 mg PRN UT 09/18/17 04:00 10/18/17 03:59 Nystatin (Mycostatin Powder) 1 appln BID EXT 09/18/17 08:00 10/18/17 08:59 09/20/17 07:21 1 APPLN Triamcinolone Acetonide (Kenalog 0.1% Cream) 1 appln BID PRN EXT 09/18/17 04:00 10/18/17 03:59 Ascorbic Acid (Vitamin C Tab) 250 mg DAILY PO 09/18/17 08:00 10/18/17 08:59 09/20/17 07:23 250 MG Cholecalciferol (Vitamin D Tab) 2,000 inter.unit DAILY PO 09/18/17 08:00 10/18/17 08:59 09/20/17 07:22 2,000 INTER.UNIT Ferrous Sulfate (Feosol Tab) 325 mg DAILY PO 09/18/17 08:00 10/18/17 08:59 09/20/17 07:22 325 MG Folic Acid (Folvite Tab) 800 mcg DAILY PO 09/18/17 08:00 10/18/17 08:59 09/20/17 07:22 800 MCG Pantoprazole Sodium (Protonix Tab) 40 mg DAILY PO 09/18/17 08:00 10/18/17 08:59 09/20/17 07:22 40 MG Ketorolac Tromethamine (Toradol Inj) 30 mg Q6H PRN IV 09/18/17 04:15 09/23/17 04:14 09/20/17 07:21 30 MG Miscellaneous (Iv Fluids Completed) 1 ea PRN PRN N/A 09/18/17 04:45 09/18/18 04:44 Methylprednisolone (Medrol Tab) 4 mg 07,13,18,21 PO 09/20/17 07:00 09/20/17 21:01 09/20/17 12:08 4 MG Methylprednisolone (Medrol Tab) 4 mg 07,13,21 PO 09/21/17 07:00 09/21/17 21:01 Methylprednisolone (Medrol Tab) 4 mg 07,21 PO 09/22/17 07:00 09/22/17 21:01 Methylprednisolone (Medrol Tab) 4 mg 07 PO 09/23/17 07:00 09/23/17 07:01 Miconazole Nitrate (Desenex Powder) 1 appln PRN PRN EXT 09/18/17 09:00 10/18/17 08:59 09/18/17 20:59 1 APPLN Senna/Docusate Sodium (Senokot S Tab) 2 tab HS PO 09/19/17 21:00 10/19/17 20:59 09/19/17 19:43 2 TAB
--- NOTE | 2017-09-20 15:22 | Discharge Instructions ---
Discharge Instructions Date of Service Sep 20, 2017. Admission Reason for Admission: back pain . Discharge Discharge Diagnosis / Problem: back pain Discharge Goals Goal(s): Decrease discomfort, Improve disease control Activity Recommendations Activity Limitations: as noted below Lifting Limitations: no more than 10 pounds . Instructions / Follow-Up Instructions / Follow-Up APPOINTMENTS: FAMILY MEDICINE 09/26/2017 11:10 AM Marcus Talavera, DO PAIN MANAGEMENT Please call Pain Clinic for appointment. ORTHOPEDICS Dr. Nesbitt as needed. OTHER INSTRUCTIONS: May use MiraLax once or twice a day for constipation. Ask Dr. Talavera for a referral for physical therapy. Seek medical attention if you have: * temperature above 101 * chest pain or trouble breathing * abdominal pain, nausea, vomiting * diarrhea, dark stools or bloody stools * worsening back pain, weakness in your legs * any unanswered questions or concerns Call 911 if symptoms are severe. Call if you have any questions or problems. My cell # is [phone]. You can also reach a [facility] hospitalist on duty at [facility] 24 hours a day by calling [phone]. Please take good care of yourself. Ernesto Borges . Current Hospital Diet Patient's current hospital diet: AHA Diet (Heart Healthy) Discharge Diet Recommended Diet: AHA Diet (Heart Healthy) Pending Studies Studies pending at discharge: no Medical Emergencies . Who to Call and When: Medical Emergencies: If at any time you feel your situation is an emergency, please call 911 immediately. . Non-Emergent Contact Non-Emergency issues call your: Primary Care Provider, Hospital Doctor . . "Provider Documentation" section prepared by Ernesto Borges. . [place] Drug Monitoring Program Search Results: patient reviewed within database, no issues identified
[2017-09-20] MEDS ORDERED: ACET-1138 PO (15:24)
[2017-09-20] MEDS ORDERED: METH4PAK PO (15:24)
[2017-09-20] MEDS ORDERED: HYDR-5688 PO (15:52)
[2017-09-20] MEDS ORDERED: POLYETHYLENE (MIRALAX) 17 GM PACK PO ONE (16:30)
[2017-09-20] MEDS ORDERED: BISACODYL 5 MG TABEC PO ONE (18:30)
[2017-09-20] MEDS: POLYETHYLENE (MIRALAX) 17 GM PACK PO SCH (20:00)
[2017-09-20] MEDS: DOCUSATE SODIUM/SENNA 50/8.6MG TAB PO SCH (20:16)
[2017-09-20 22:59] VITALS: BP 145/66; PULSE 78; TEMP 36.5; O2SAT 92
[2017-09-21] VITALS (9 sets, daily range): BP systolic 97–173; BP diastolic 59–101; PULSE 74–101; TEMP 36.5–37.2; O2SAT 91–100
[2017-09-21] MEDS ORDERED: LORAZEPAM 0.5 MG TAB ONE
[2017-09-21] MEDS: HYDROCODONE/ACETAMIN 5/325MG TAB PO PRN ×2 (01:47→14:52)
[2017-09-21] MEDS: HEPARIN SOD 5000 UNIT/0.5 ML CARP SQ SCH ×3 (06:39→20:56)
[2017-09-21] MEDS: METHYLPREDNISOLONE 4 MG TAB PO SCH ×3 (06:40→21:09)
[2017-09-21 07:11] LABS: BASO % 0.1 %; BASO ABS # 0.01 K/uL (0-0.2); EOS % 0.2 %; EOS ABS # 0.02 K/uL (0-0.5); HEMATOCRIT 36.4 % (37-47); HEMOGLOBIN 11.5 g/dL (12.0-16.0); IG# 0.12 K/uL (0.00-0.02); LYMPH % 14.3 %; LYMPH ABS # 1.62 K/uL (1.2-3.4); MEAN CELL VOLUME 90.5 fL (80-100); MEAN CORPUSCULAR HEMOGLOBIN 28.6 pg (25-34); MEAN CORPUSCULAR HGB CONC 31.6 g/dl (32-36); MEAN PLATELET VOLUME 10.2 fL (7.4-10.4); MONO % 9.5 %; MONO ABS # 1.08 K/uL (0.11-0.59); NEUT % 74.8 %; PLATELET COUNT 302 K/uL (130-400); RED CELL DISTRIBUTION WIDTH CV 14.8 % (11.5-14.5); WHITE BLOOD COUNT 11.35 K/uL (4.8-10.8)
[2017-09-21 07:37] LABS: CALCIUM 8.3 mg/dl (8.5-10.1); CREATININE 1.28 mg/dl (0.60-1.20); POTASSIUM 4.8 mmol/L (3.5-5.1)
[2017-09-21] MEDS: KETOROLAC TROMETHAMINE 30 MG/ML VIAL IV PRN (08:23)
[2017-09-21] MEDS: NITROGLYCERIN 0.4 MG SL PER TAB CHARGE UT SCH ×2 (08:25→08:34)
[2017-09-21] MEDS: PANTOprazole SOD 40 MG TAB PO SCH (08:36)
[2017-09-21] MEDS: METOPROLOL SUCC 25MG EXT REL TAB PO SCH (08:36)
[2017-09-21] MEDS: AMLODIPINE BESYLATE 5 MG TAB PO SCH (08:37)
[2017-09-21] MEDS: CHOLECALCIFEROL 1000 INTER.UNIT TAB PO SCH (08:45)
[2017-09-21] MEDS: FERROUS SULFATE 325 MG TAB PO SCH (08:46)
[2017-09-21] MEDS: MYCOPHENOLATE MOFETIL 250 MG CAP (CELLCEPT) PO SCH ×2 (08:46→16:53)
[2017-09-21] MEDS: DULOXETINE (CYMBALTA) 30 MG CAP PO SCH (08:47)
[2017-09-21] MEDS: LORATADINE 10 MG TAB PO SCH ×2 (08:47→08:51)
[2017-09-21] MEDS: FoLIC ACID TAB 400 MCG TAB PO SCH (08:47)
[2017-09-21] MEDS: CYCLOBENZAPRINE HCL 10 MG TAB PO PRN ×2 (08:47→16:54)
[2017-09-21] MEDS: ASPIRIN 81 MG ECTAB PO SCH (08:48)
[2017-09-21] MEDS: BuPROPion SR 100 MG TABCR PO SCH ×2 (08:48→20:45)
[2017-09-21] MEDS: ASCORBIC ACID 500 MG TAB PO SCH (08:49)
[2017-09-21] MEDS: ATORVASTATIN 40 MG TAB PO SCH (08:49)
[2017-09-21] MEDS: LISINOPRIL 10 MG TAB PO SCH (08:49)
[2017-09-21] MEDS: POLYETHYLENE (MIRALAX) 17 GM PACK PO SCH ×3 (08:50→20:44)
[2017-09-21] MEDS: NYSTATIN POWDER 15GM BTL EXT SCH ×2 (08:50→20:44)
--- NOTE | 2017-09-21 08:59 | Progress Note ---
Medicine Progress Note Date & Time of Visit: Sep 21, 2017 at 08:54 . Subjective CC: Follow-up visit for back pain and other problems. HPI: Episode of severe mid back pain followed by transient chest pain. Chest pain described as sharp, severe, migrated from one side to the other, ? pleuritic. No fever or cough. Received NTG without significant relief. BP elevated. O2 sats 97-100% RA. ROS: General- no fever, no chills Resp- no cough; no shortness of breath Cardiac- as noted above in HPI GI- passing stool after receiving laxatives;no nausea, no vomiting, no diarrhea - no urinary complaints . Objective Last 8 Hrs Date Time Temp Pulse Resp B/P (MAP) Pulse Ox O2 Delivery O2 Flow Rate FiO2 09/21/17 08:45 81 20 172/84 (113) 97 Room Air 09/21/17 08:34 88 20 173/94 (120) 97 Room Air 09/21/17 08:23 36.5 79 18 162/84 (110) 100 Room Air 09/21/17 07:10 36.7 74 22 164/85 (111) 100 09/21/17 06:35 36.7 79 18 157/101 (119) 97 Room Air Physical Exam: General- anxious, no acute distress Lungs- clear to auscultation; no respiratory distress Cardiovascular- RRR; no murmur or gallop appreciated; no JVD; no pretibial edema Abdomen- + bowel sounds, soft, nontender Back- lumbar tenderness Extremities- no cyanosis; no calf tenderness Neuro- alert, oriente Skin- warm & dry . Laboratory Results: Last 24 Hours Test 09/21/17 06:36 09/21/17 08:50 White Blood Count 11.35 K/uL Red Blood Count 4.02 M/uL Hemoglobin 11.5 g/dL Hematocrit 36.4 % Mean Corpuscular Volume 90.5 fL Mean Corpuscular Hemoglobin 28.6 pg Mean Corpuscular Hemoglobin Concent 31.6 g/dl Platelet Count 302 K/uL Mean Platelet Volume 10.2 fL Neutrophils (%) (Auto) 74.8 % Lymphocytes (%) (Auto) 14.3 % Monocytes (%) (Auto) 9.5 % Eosinophils (%) (Auto) 0.2 % Basophils (%) (Auto) 0.1 % Neutrophils # (Auto) 8.50 K/uL Lymphocytes # (Auto) 1.62 K/uL Monocytes # (Auto) 1.08 K/uL Eosinophils # (Auto) 0.02 K/uL Basophils # (Auto) 0.01 K/uL RDW Standard Deviation 49.0 fL RDW Coefficient of Variation 14.8 % Immature Granulocyte % (Auto) 1.1 % Immature Granulocyte # (Auto) 0.12 K/uL Sodium Level 138 mmol/L Potassium Level 4.8 mmol/L Chloride Level 108 mmol/L Carbon Dioxide Level 25 mmol/L Anion Gap 5.0 mmol/L Blood Urea Nitrogen 29 mg/dl Creatinine 1.28 mg/dl Est Creatinine Clear Calc Drug Dose 65.8 ml/min Estimated GFR () 52.6 Estimated GFR (Non- 45.4 BUN/Creatinine Ratio 22.6 Random Glucose 91 mg/dl Calcium Level 8.3 mg/dl Magnesium Level 2.5 mg/dl Assessment & Plan BACK PAIN MRI lumbar spine demonstrated spinal stenosis and bulging disc L5-S1. Ortho consult with Dr. Nesbitt; conservative management recommended. PT / OT. Pain Management consulted. Planning on discharge to home with outpatient follow-up, but patient still very uncomfortable and unable to perform ADLs independently. Will probably need skilled care. HYPERTENSION Continue metoprolol, lisinopril, amlodipine. GERD Continue PPI. 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 MORBID OBESITY Wt 134 kg, BMI 47.7. AHA diet. CONSTIPATION Bowel regimen as ordered. DEPRESSION Psych consulted. Arrangements made for outpatient follow-up. Very anxious / depressed / chronic back pain. Increase duloxetine to 60 mg daily. CHEST PAIN Atypical chest pain. EKG showed NSR, no acute changes. Doubt PE given transient / migratory pain and good O2 sats, but at risk. Check D-dimer to screen for thromboembolic disease. VTE PROPHYLAXIS SQ heparin. Ambulate. DISPOSITION Planning on discharge to home with outpatient follow-up, but patient still very uncomfortable and unable to perform ADLs independently. Will probably need skilled care. Case Management consulted. Family Medicine follow-up with Dr. Marcus Talavera. . Current Inpatient Medications: Current Inpatient Medications Medications (Trade) Dose Ordered Sig/Sukhdeep Route Start Time Stop Time Status Last Admin Dose Admin Heparin Sodium (Porcine) (Heparin Sq 5000 Unit/0.5ml) 5,000 unit Q8H SQ 09/18/17 07:00 10/18/17 06:59 09/21/17 06:39 5,000 UNIT Acetaminophen (Tylenol Tab) 650 mg Q4H PRN PO 09/18/17 04:00 10/18/17 03:59 Al Hydrox/Mg Hydrox/Simethicone (Maalox Max Susp) 15 ml Q4H PRN PO 09/18/17 04:00 10/18/17 03:59 Polyethylene (Miralax Powder Packet) 17 gm DAILY PRN PO 09/18/17 04:00 10/18/17 03:59 09/19/17 13:37 17 GM Ondansetron HCl (Zofran Inj) 4 mg Q6H PRN IV 09/18/17 04:00 10/18/17 03:59 Amlodipine Besylate (Norvasc Tab) 5 mg DAILY PO 09/18/17 08:00 10/18/17 08:59 09/21/17 08:37 5 MG Aspirin (Ecotrin Tab) 81 mg DAILY PO 09/18/17 08:00 10/18/17 08:59 09/21/17 08:48 81 MG Atorvastatin Calcium (Lipitor Tab) 80 mg DAILY PO 09/18/17 08:00 10/18/17 08:59 09/21/17 08:49 80 MG Bupropion HCl (Wellbutrin-Sr Tab) 200 mg BID PO 09/18/17 08:00 10/18/17 08:59 09/21/17 08:48 200 MG Cyclobenzaprine HCl (Flexeril Tab) 10 mg TID PRN PO 09/18/17 04:00 10/18/17 03:59 09/21/17 08:47 10 MG Diclofenac Sodium (Voltaren 1% Top Gel) 1 appln QID EXT 09/18/17 08:00 10/18/17 08:59 09/20/17 16:29 1 APPLN Duloxetine HCl (Cymbalta Cap) 30 mg DAILY PO 09/18/17 08:00 10/18/17 08:59 09/21/17 08:47 30 MG Fluocinonide (Lidex Oint) 1 appln BID PRN EXT 09/18/17 04:00 10/18/17 03:59 Acetaminophen/ Hydrocodone Bitart ([place] 5/325 Tab) 1 tab BID PRN PO 09/18/17 04:00 10/02/17 03:59 09/21/17 01:47 1 TAB Lisinopril (Zestril Tab) 10 mg DAILY PO 09/18/17 08:00 10/18/17 08:59 09/21/17 08:49 10 MG Loratadine (Claritin Tab) 10 mg DAILY PO 09/18/17 08:00 10/18/17 08:59 09/20/17 07:22 10 MG Metoprolol Succinate (Toprol Xl Tab) 25 mg DAILY PO 09/18/17 08:00 10/18/17 08:59 09/21/17 08:36 25 MG Mycophenolate Mofetil (Cellcept Cap) 1,000 mg BIDM PO 09/18/17 08:00 10/18/17 07:59 09/21/17 08:46 1,000 MG Nitroglycerin (Nitrostat Tab) 0.4 mg PRN UT 09/18/17 04:00 10/18/17 03:59 09/21/17 08:34 0.4 MG Nystatin (Mycostatin Powder) 1 appln BID EXT 09/18/17 08:00 10/18/17 08:59 09/21/17 08:50 1 APPLN Triamcinolone Acetonide (Kenalog 0.1% Cream) 1 appln BID PRN EXT 09/18/17 04:00 10/18/17 03:59 Ascorbic Acid (Vitamin C Tab) 250 mg DAILY PO 09/18/17 08:00 10/18/17 08:59 09/21/17 08:49 250 MG Cholecalciferol (Vitamin D Tab) 2,000 inter.unit DAILY PO 09/18/17 08:00 10/18/17 08:59 09/21/17 08:45 2,000 INTER.UNIT Ferrous Sulfate (Feosol Tab) 325 mg DAILY PO 09/18/17 08:00 10/18/17 08:59 09/21/17 08:46 325 MG Folic Acid (Folvite Tab) 800 mcg DAILY PO 09/18/17 08:00 10/18/17 08:59 09/21/17 08:47 800 MCG Pantoprazole Sodium (Protonix Tab) 40 mg DAILY PO 09/18/17 08:00 10/18/17 08:59 09/21/17 08:36 40 MG Ketorolac Tromethamine (Toradol Inj) 30 mg Q6H PRN IV 09/18/17 04:15 09/23/17 04:14 09/21/17 08:23 30 MG Miscellaneous (Iv Fluids Completed) 1 ea PRN PRN N/A 09/18/17 04:45 09/18/18 04:44 Methylprednisolone (Medrol Tab) 4 mg 07,13,21 PO 09/21/17 07:00 09/21/17 21:01 09/21/17 06:40 4 MG Methylprednisolone (Medrol Tab) 4 mg 07,21 PO 09/22/17 07:00 09/22/17 21:01 Methylprednisolone (Medrol Tab) 4 mg 07 PO 09/23/17 07:00 09/23/17 07:01 Miconazole Nitrate (Desenex Powder) 1 appln PRN PRN EXT 09/18/17 09:00 10/18/17 08:59 09/18/17 20:59 1 APPLN Senna/Docusate Sodium (Senokot S Tab) 2 tab HS PO 09/19/17 21:00 10/19/17 20:59 09/19/17 19:43 2 TAB Polyethylene (Miralax Powder Packet) 17 gm TID PO 09/20/17 20:00 10/20/17 19:59
[2017-09-21] MEDS ORDERED: DULOXETINE (CYMBALTA) 30 MG CAP PO ONE (09:30)
[2017-09-21] MEDS ORDERED: LORAZEPAM 1 MG TAB PO SCH (09:30)
[2017-09-21] MEDS ORDERED: HYDROCODONE/ACETAMIN 5/325MG TAB PO SCH (09:30)
[2017-09-21] MEDS ORDERED: SODIUM CHLORIDE 0.9% 500ML 500 ML IV SCH (11:15)
[2017-09-21] MEDS: DICLOFENAC SOD 1% GEL 100 GM TUBE EXT SCH ×3 (12:11→19:13)
[2017-09-21] MEDS ORDERED: OPTIRAY 320 IV PRN (14:00)
--- NOTE | 2017-09-21 14:38 | DIAGNOSTIC IMAGING REPORT ---
ULTRASOUND VENOUS DOPPLER LWR EXT BILA CLINICAL HISTORY: elevated D-dimer / chest pain COMPARISON STUDY: No previous studies for comparison. FINDINGS: Real-time and color flow Doppler imaging were performed. Flow was seen within the femoral, popliteal and calf veins with no intraluminal thrombus demonstrated. The saphenous vein is patent. IMPRESSION: No evidence of lower extremity DVT. Electronically signed by: Harjit Turner M.D. 09/21/2017 2:37 PM Dictated Date/Time: 09/21/2017 2:37 PM
--- NOTE | 2017-09-21 14:50 | DIAGNOSTIC IMAGING REPORT ---
CT ANGIOGRAM OF THE CHEST CLINICAL HISTORY: Atypical chest pain. Elevated d-dimer. COMPARISON STUDY: September 10, 2016 TECHNIQUE: Following the IV administration of 116 mL of [id number]-320, CT angiogram of the thorax was performed from the thoracic inlet to the lung bases utilizing the pulmonary embolus protocol. Images are reviewed in the axial, sagittal, and coronal planes. IV contrast was administered without complication. MIP imaging was performed. A dose lowering technique was utilized adhering to the principles of ALARA. CT DOSE: 766.20 mGy.cm FINDINGS: There is a stable 26 mm right lobe thyroid nodule. No pathologically enlarged axillary mediastinal or hilar lymph nodes were visualized. There was no evidence of thoracic aortic dilatation. There were no pulmonary artery filling defects to indicate acute pulmonary embolism. No pleural effusions are visualized. There was no evidence of focal pulmonary consolidation. There is evidence for a prior mid thoracic vertebroplasty IMPRESSION: 1. No evidence of acute pulmonary embolism 2. No evidence of acute parenchymal consolidation Electronically signed by: Harjit Turner M.D. 09/21/2017 2:49 PM Dictated Date/Time: 09/21/2017 2:45 PM
[2017-09-21] MEDS: DOCUSATE SODIUM/SENNA 50/8.6MG TAB PO SCH (20:45)
[2017-09-21] MEDS: ACETAMINOPHEN 325 MG TAB PO PRN (20:56)
[2017-09-22] MEDS: HYDROCODONE/ACETAMIN 5/325MG TAB PO PRN ×2 (02:39→12:34)
[2017-09-22 02:58] VITALS: BP 128/80; PULSE 82; O2SAT 96
[2017-09-22] MEDS: HEPARIN SOD 5000 UNIT/0.5 ML CARP SQ SCH ×3 (06:41→22:59)
[2017-09-22 07:23] VITALS: BP 130/80; PULSE 93; TEMP 36.9; O2SAT 98
[2017-09-22] MEDS: METHYLPREDNISOLONE 4 MG TAB PO SCH ×2 (07:28→19:53)
[2017-09-22] MEDS: KETOROLAC TROMETHAMINE 30 MG/ML VIAL IV PRN ×2 (07:28→19:48)
[2017-09-22] MEDS: CYCLOBENZAPRINE HCL 10 MG TAB PO PRN (07:29)
[2017-09-22] MEDS: NYSTATIN POWDER 15GM BTL EXT SCH ×2 (07:33→19:54)
[2017-09-22] MEDS: DICLOFENAC SOD 1% GEL 100 GM TUBE EXT SCH ×4 (07:34→21:13)
[2017-09-22] MEDS: MYCOPHENOLATE MOFETIL 250 MG CAP (CELLCEPT) PO SCH ×2 (07:37→17:35)
[2017-09-22] MEDS: LORATADINE 10 MG TAB PO SCH (07:38)
[2017-09-22] MEDS: ASPIRIN 81 MG ECTAB PO SCH (07:38)
[2017-09-22] MEDS: CHOLECALCIFEROL 1000 INTER.UNIT TAB PO SCH (07:38)
[2017-09-22] MEDS: ASCORBIC ACID 500 MG TAB PO SCH (07:39)
[2017-09-22] MEDS: LISINOPRIL 10 MG TAB PO SCH (07:40)
[2017-09-22] MEDS: AMLODIPINE BESYLATE 5 MG TAB PO SCH (07:41)
[2017-09-22] MEDS: POLYETHYLENE (MIRALAX) 17 GM PACK PO SCH ×3 (07:41→19:52)
[2017-09-22] MEDS: FERROUS SULFATE 325 MG TAB PO SCH (07:41)
[2017-09-22] MEDS: FoLIC ACID TAB 400 MCG TAB PO SCH (07:42)
[2017-09-22] MEDS: BuPROPion SR 100 MG TABCR PO SCH ×2 (08:13→19:53)
[2017-09-22] MEDS: DULOXETINE HCL 60 MG CAP PO SCH (08:13)
[2017-09-22] MEDS: ATORVASTATIN 40 MG TAB PO SCH (08:13)
[2017-09-22] MEDS: METOPROLOL SUCC 25MG EXT REL TAB PO SCH (08:13)
[2017-09-22] MEDS: PANTOprazole SOD 40 MG TAB PO SCH (08:14)
[2017-09-22 14:51] VITALS: BP 97/61; PULSE 84; TEMP 36.6; O2SAT 95
[2017-09-22] MEDS: DOCUSATE SODIUM/SENNA 50/8.6MG TAB PO SCH (19:54)
--- NOTE | 2017-09-22 21:39 | Progress Note ---
Medicine Progress Note Date & Time of Visit: Sep 22, 2017 at ~ 12:00 . Subjective CC: Follow-up visit for back pain and other problems. HPI: Somewhat better, but still experiencing severe back pain. Unable to perform ADL's like toileting independently. ROS: General- no fever, no chills Resp- no cough; no shortness of breath Cardiac- no further chest pain GI- passing stool after receiving laxatives;no nausea, no vomiting, no diarrhea - no urinary complaints . Objective Last 8 Hrs Date Time Temp Pulse Resp B/P (MAP) Pulse Ox O2 Delivery O2 Flow Rate FiO2 09/22/17 17:10 Room Air 09/22/17 14:51 36.6 84 18 97/61 (73 95 Physical Exam: General- no acute distress Lungs- clear to auscultation; no respiratory distress Cardiovascular- RRR; no murmur or gallop appreciated; no JVD; no pretibial edema Abdomen- + bowel sounds, soft, nontender Back- lumbar tenderness Extremities- no cyanosis; no calf tenderness Neuro- alert, oriented Skin- warm & dry . Assessment & Plan BACK PAIN MRI lumbar spine demonstrated spinal stenosis and bulging disc L5-S1. Ortho consult with Dr. Nesbitt; conservative management recommended. PT / OT. Pain Management consulted. Planning on discharge to home with outpatient follow-up, but patient still very uncomfortable and unable to perform ADLs independently. Will probably need skilled care. HYPERTENSION Continue metoprolol, lisinopril, amlodipine. GERD Continue PPI. 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 MORBID OBESITY Wt 134 kg, BMI 47.7. AHA diet. CONSTIPATION Bowel regimen as ordered. DEPRESSION Psych consulted. Arrangements made for outpatient follow-up. Very anxious / depressed / chronic back pain. Increase duloxetine to 60 mg daily. CHEST PAIN 8/2 Atypical chest pain. EKG showed NSR, no acute changes. D-dimer elevated, but CTA of chest negative for PE and venous duplex of lower extremities negative for DVT. VTE PROPHYLAXIS SQ heparin. Ambulate. DISPOSITION Planning on discharge to home with outpatient follow-up, but patient still very uncomfortable and unable to perform ADLs independently. Will probably need skilled care. Case Management consulted. Family Medicine follow-up with Dr. Marcus Talavera. . Current Inpatient Medications: Current Inpatient Medications Medications (Trade) Dose Ordered Sig/Sukhdeep Route Start Time Stop Time Status Last Admin Dose Admin Heparin Sodium (Porcine) (Heparin Sq 5000 Unit/0.5ml) 5,000 unit Q8H SQ 09/18/17 07:00 10/18/17 06:59 09/22/17 15:41 5,000 UNIT Acetaminophen (Tylenol Tab) 650 mg Q4H PRN PO 09/18/17 04:00 10/18/17 03:59 09/21/17 20:56 650 MG Al Hydrox/Mg Hydrox/Simethicone (Maalox Max Susp) 15 ml Q4H PRN PO 09/18/17 04:00 10/18/17 03:59 Polyethylene (Miralax Powder Packet) 17 gm DAILY PRN PO 09/18/17 04:00 10/18/17 03:59 09/19/17 13:37 17 GM Ondansetron HCl (Zofran Inj) 4 mg Q6H PRN IV 09/18/17 04:00 10/18/17 03:59 Amlodipine Besylate (Norvasc Tab) 5 mg DAILY PO 09/18/17 08:00 10/18/17 08:59 09/22/17 07:41 5 MG Aspirin (Ecotrin Tab) 81 mg DAILY PO 09/18/17 08:00 10/18/17 08:59 09/22/17 07:38 81 MG Atorvastatin Calcium (Lipitor Tab) 80 mg DAILY PO 09/18/17 08:00 10/18/17 08:59 09/22/17 08:13 80 MG Bupropion HCl (Wellbutrin-Sr Tab) 200 mg BID PO 09/18/17 08:00 10/18/17 08:59 09/22/17 19:53 200 MG Cyclobenzaprine HCl (Flexeril Tab) 10 mg TID PRN PO 09/18/17 04:00 10/18/17 03:59 09/22/17 07:29 10 MG Diclofenac Sodium (Voltaren 1% Top Gel) 1 appln QID EXT 09/18/17 08:00 10/18/17 08:59 09/22/17 21:13 1 APPLN Fluocinonide (Lidex Oint) 1 appln BID PRN EXT 09/18/17 04:00 10/18/17 03:59 Acetaminophen/ Hydrocodone Bitart ([place] 5/325 Tab) 1 tab BID PRN PO 09/18/17 04:00 10/02/17 03:59 09/22/17 12:34 1 TAB Lisinopril (Zestril Tab) 10 mg DAILY PO 09/18/17 08:00 10/18/17 08:59 09/22/17 07:40 10 MG Loratadine (Claritin Tab) 10 mg DAILY PO 09/18/17 08:00 10/18/17 08:59 09/22/17 07:38 10 MG Metoprolol Succinate (Toprol Xl Tab) 25 mg DAILY PO 09/18/17 08:00 10/18/17 08:59 09/22/17 08:13 25 MG Mycophenolate Mofetil (Cellcept Cap) 1,000 mg BIDM PO 09/18/17 08:00 10/18/17 07:59 09/22/17 17:35 1,000 MG Nitroglycerin (Nitrostat Tab) 0.4 mg PRN UT 09/18/17 04:00 10/18/17 03:59 09/21/17 08:34 0.4 MG Nystatin (Mycostatin Powder) 1 appln BID EXT 09/18/17 08:00 10/18/17 08:59 09/22/17 19:54 1 APPLN Triamcinolone Acetonide (Kenalog 0.1% Cream) 1 appln BID PRN EXT 09/18/17 04:00 10/18/17 03:59 Ascorbic Acid (Vitamin C Tab) 250 mg DAILY PO 09/18/17 08:00 10/18/17 08:59 09/22/17 07:39 250 MG Cholecalciferol (Vitamin D Tab) 2,000 inter.unit DAILY PO 09/18/17 08:00 10/18/17 08:59 09/22/17 07:38 2,000 INTER.UNIT Ferrous Sulfate (Feosol Tab) 325 mg DAILY PO 09/18/17 08:00 10/18/17 08:59 09/22/17 07:41 325 MG Folic Acid (Folvite Tab) 800 mcg DAILY PO 09/18/17 08:00 10/18/17 08:59 09/22/17 07:42 800 MCG Pantoprazole Sodium (Protonix Tab) 40 mg DAILY PO 09/18/17 08:00 10/18/17 08:59 09/22/17 08:14 40 MG Ketorolac Tromethamine (Toradol Inj) 30 mg Q6H PRN IV 09/18/17 04:15 09/23/17 04:14 09/22/17 19:48 30 MG Miscellaneous (Iv Fluids Completed) 1 ea PRN PRN N/A 09/18/17 04:45 09/18/18 04:44 Methylprednisolone (Medrol Tab) 4 mg 07 PO 09/23/17 07:00 09/23/17 07:01 Miconazole Nitrate (Desenex Powder) 1 appln PRN PRN EXT 09/18/17 09:00 10/18/17 08:59 09/18/17 20:59 1 APPLN Senna/Docusate Sodium (Senokot S Tab) 2 tab HS PO 09/19/17 21:00 10/19/17 20:59 09/22/17 19:54 2 TAB Polyethylene (Miralax Powder Packet) 17 gm TID PO 09/20/17 20:00 10/20/17 19:59 09/22/17 19:52 17 GM Duloxetine HCl (Cymbalta Cap) 60 mg QAM PO 09/22/17 08:00 10/22/17 07:59 09/22/17 08:13 60 MG Ioversol (Optiray 320) 100 ml UD PRN IV 09/21/17 14:00 09/25/17 13:59
[2017-09-22 23:10] VITALS: BP 124/77; PULSE 79; TEMP 36.7; O2SAT 93
[2017-09-23] MEDS: KETOROLAC TROMETHAMINE 30 MG/ML VIAL IV PRN (03:29)
[2017-09-23] MEDS: HYDROCODONE/ACETAMIN 5/325MG TAB PO PRN ×2 (05:04→18:19)
[2017-09-23] MEDS: ACETAMINOPHEN 325 MG TAB PO PRN (06:36)
[2017-09-23] MEDS: HEPARIN SOD 5000 UNIT/0.5 ML CARP SQ SCH ×3 (06:37→21:14)
[2017-09-23] MEDS ORDERED: METHYLPREDNISOLONE 4 MG TAB PO SCH (07:00)
[2017-09-23 07:08] VITALS: BP 113/79; PULSE 117; TEMP 37.6; O2SAT 99
[2017-09-23] MEDS: LORATADINE 10 MG TAB PO SCH (08:15)
[2017-09-23] MEDS: LISINOPRIL 10 MG TAB PO SCH (08:15)
[2017-09-23] MEDS: METOPROLOL SUCC 25MG EXT REL TAB PO SCH (08:15)
[2017-09-23] MEDS: CHOLECALCIFEROL 1000 INTER.UNIT TAB PO SCH (08:15)
[2017-09-23] MEDS: DULOXETINE HCL 60 MG CAP PO SCH (08:15)
[2017-09-23] MEDS: PANTOprazole SOD 40 MG TAB PO SCH (08:15)
[2017-09-23] MEDS: ASPIRIN 81 MG ECTAB PO SCH (08:16)
[2017-09-23] MEDS: FERROUS SULFATE 325 MG TAB PO SCH (08:16)
[2017-09-23] MEDS: FoLIC ACID TAB 400 MCG TAB PO SCH (08:16)
[2017-09-23] MEDS: ATORVASTATIN 40 MG TAB PO SCH (08:16)
[2017-09-23] MEDS: MYCOPHENOLATE MOFETIL 250 MG CAP (CELLCEPT) PO SCH ×2 (08:17→16:23)
[2017-09-23] MEDS: BuPROPion SR 100 MG TABCR PO SCH (08:17)
[2017-09-23] MEDS: AMLODIPINE BESYLATE 5 MG TAB PO SCH (08:18)
[2017-09-23] MEDS: ASCORBIC ACID 500 MG TAB PO SCH (08:18)
[2017-09-23] MEDS: DICLOFENAC SOD 1% GEL 100 GM TUBE EXT SCH ×4 (08:18→21:05)
[2017-09-23] MEDS: POLYETHYLENE (MIRALAX) 17 GM PACK PO SCH ×3 (08:19→20:56)
[2017-09-23] MEDS: CYCLOBENZAPRINE HCL 10 MG TAB PO PRN ×2 (08:19→21:04)
[2017-09-23] MEDS: NYSTATIN POWDER 15GM BTL EXT SCH ×2 (08:21→20:56)
[2017-09-23 15:06] VITALS: BP 130/75; PULSE 87; TEMP 36.7; O2SAT 91
[2017-09-23] MEDS: MICONAZOLE NITRATE POWDER 43 GM EXT PRN (16:33)
[2017-09-23] MEDS ORDERED: BuPROPion SR 100 MG TABCR PO ONE (18:30)
[2017-09-23] MEDS: DOCUSATE SODIUM/SENNA 50/8.6MG TAB PO SCH (20:57)
--- NOTE | 2017-09-23 20:58 | Progress Note ---
Medicine Progress Note Date & Time of Visit: Sep 23, 2017 at 08:05 . Subjective CC: Follow-up visit for back pain and other problems. HPI: Still experiencing severe back pain with right sciatica. Unable to perform ADL's like toileting independently. ROS: General- no fever, no chills Resp- no cough; no shortness of breath Cardiac- no further chest pain GI- passing stool after receiving laxatives;no nausea, no vomiting, no diarrhea - no urinary complaints . Objective Last 8 Hrs Date Time Temp Pulse Resp B/P (MAP) Pulse Ox O2 Delivery O2 Flow Rate FiO2 09/23/17 15:06 36.7 87 22 130/75 (93) 91 Room Air Physical Exam: General- no acute distress Lungs- clear to auscultation; no respiratory distress Cardiovascular- RRR; no murmur or gallop appreciated; no JVD; no pretibial edema Abdomen- + bowel sounds, soft, nontender Back- lumbar tenderness Extremities- no cyanosis; no calf tenderness Neuro- alert, oriented Skin- warm & dry . Assessment & Plan BACK PAIN MRI lumbar spine demonstrated spinal stenosis and bulging disc L5-S1. Ortho consult with Dr. Nesbitt; conservative management recommended. PT / OT. Pain Management consulted and will see patient in clinic for follow-up. Received Medrol taper. Continue [place] PRN; try not to increase narcotics. Planning on discharge to home with outpatient follow-up, but patient still very uncomfortable and unable to perform ADLs independently. Will probably need skilled care. HYPERTENSION Continue metoprolol, lisinopril, amlodipine. GERD Continue PPI. 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 MORBID OBESITY Wt 134 kg, BMI 47.7. AHA diet. CONSTIPATION Bowel regimen as ordered. DEPRESSION Psych consulted. Arrangements made for outpatient follow-up. Very anxious / depressed / chronic back pain. Increased duloxetine to 60 mg daily. CHEST PAIN 8/2 Atypical chest pain. EKG showed NSR, no acute changes. D-dimer elevated, but CTA of chest negative for PE and venous duplex of lower extremities negative for DVT. VTE PROPHYLAXIS SQ heparin. Ambulate. DISPOSITION Planning on discharge to home with outpatient follow-up, but patient still very uncomfortable and unable to perform ADLs independently or comfortably. Will probably need skilled care. Case Management consulted. Family Medicine follow-up with Dr. Marcus Talavera. . Current Inpatient Medications: Current Inpatient Medications Medications (Trade) Dose Ordered Sig/Sukhdeep Route Start Time Stop Time Status Last Admin Dose Admin Heparin Sodium (Porcine) (Heparin Sq 5000 Unit/0.5ml) 5,000 unit Q8H SQ 09/18/17 07:00 10/18/17 06:59 09/23/17 16:22 5,000 UNIT Acetaminophen (Tylenol Tab) 650 mg Q4H PRN PO 09/18/17 04:00 10/18/17 03:59 09/23/17 06:36 650 MG Al Hydrox/Mg Hydrox/Simethicone (Maalox Max Susp) 15 ml Q4H PRN PO 09/18/17 04:00 10/18/17 03:59 Polyethylene (Miralax Powder Packet) 17 gm DAILY PRN PO 09/18/17 04:00 10/18/17 03:59 09/19/17 13:37 17 GM Ondansetron HCl (Zofran Inj) 4 mg Q6H PRN IV 09/18/17 04:00 10/18/17 03:59 Amlodipine Besylate (Norvasc Tab) 5 mg DAILY PO 09/18/17 08:00 10/18/17 08:59 09/23/17 08:18 5 MG Aspirin (Ecotrin Tab) 81 mg DAILY PO 09/18/17 08:00 10/18/17 08:59 09/23/17 08:16 81 MG Atorvastatin Calcium (Lipitor Tab) 80 mg DAILY PO 09/18/17 08:00 10/18/17 08:59 09/23/17 08:16 80 MG Cyclobenzaprine HCl (Flexeril Tab) 10 mg TID PRN PO 09/18/17 04:00 10/18/17 03:59 09/23/17 08:19 10 MG Diclofenac Sodium (Voltaren 1% Top Gel) 1 appln QID EXT 09/18/17 08:00 10/18/17 08:59 09/23/17 16:22 1 APPLN Fluocinonide (Lidex Oint) 1 appln BID PRN EXT 09/18/17 04:00 10/18/17 03:59 Acetaminophen/ Hydrocodone Bitart ([place] 5/325 Tab) 1 tab BID PRN PO 09/18/17 04:00 10/02/17 03:59 09/23/17 18:19 1 TAB Lisinopril (Zestril Tab) 10 mg DAILY PO 09/18/17 08:00 10/18/17 08:59 09/23/17 08:15 10 MG Loratadine (Claritin Tab) 10 mg DAILY PO 09/18/17 08:00 10/18/17 08:59 09/23/17 08:15 10 MG Metoprolol Succinate (Toprol Xl Tab) 25 mg DAILY PO 09/18/17 08:00 10/18/17 08:59 09/23/17 08:15 25 MG Mycophenolate Mofetil (Cellcept Cap) 1,000 mg BIDM PO 09/18/17 08:00 10/18/17 07:59 09/23/17 16:23 1,000 MG Nitroglycerin (Nitrostat Tab) 0.4 mg PRN UT 09/18/17 04:00 10/18/17 03:59 09/21/17 08:34 0.4 MG Nystatin (Mycostatin Powder) 1 appln BID EXT 09/18/17 08:00 10/18/17 08:59 09/23/17 08:21 1 APPLN Triamcinolone Acetonide (Kenalog 0.1% Cream) 1 appln BID PRN EXT 09/18/17 04:00 10/18/17 03:59 Ascorbic Acid (Vitamin C Tab) 250 mg DAILY PO 09/18/17 08:00 10/18/17 08:59 09/23/17 08:18 250 MG Cholecalciferol (Vitamin D Tab) 2,000 inter.unit DAILY PO 09/18/17 08:00 10/18/17 08:59 09/23/17 08:15 2,000 INTER.UNIT Ferrous Sulfate (Feosol Tab) 325 mg DAILY PO 09/18/17 08:00 10/18/17 08:59 09/23/17 08:16 325 MG Folic Acid (Folvite Tab) 800 mcg DAILY PO 09/18/17 08:00 10/18/17 08:59 09/23/17 08:16 800 MCG Pantoprazole Sodium (Protonix Tab) 40 mg DAILY PO 09/18/17 08:00 10/18/17 08:59 09/23/17 08:15 40 MG Miscellaneous (Iv Fluids Completed) 1 ea PRN PRN N/A 09/18/17 04:45 09/18/18 04:44 Miconazole Nitrate (Desenex Powder) 1 appln PRN PRN EXT 09/18/17 09:00 10/18/17 08:59 09/23/17 16:33 1 APPLN Senna/Docusate Sodium (Senokot S Tab) 2 tab HS PO 09/19/17 21:00 10/19/17 20:59 09/22/17 19:54 2 TAB Polyethylene (Miralax Powder Packet) 17 gm TID PO 09/20/17 20:00 10/20/17 19:59 09/23/17 08:19 17 GM Duloxetine HCl (Cymbalta Cap) 60 mg QAM PO 09/22/17 08:00 10/22/17 07:59 09/23/17 08:15 60 MG Ioversol (Optiray 320) 100 ml UD PRN IV 09/21/17 14:00 09/25/17 13:59 Bupropion HCl (Wellbutrin-Sr Tab) 200 mg [id number] PO 09/24/17 07:00 10/18/17 08:59
[2017-09-24 00:03] VITALS: BP 142/65; PULSE 96; TEMP 36.8; O2SAT 92
[2017-09-24] MEDS: ONDANSETRON INJ 2 MG/ML 2 ML VIAL IV PRN ×2 (04:33→17:36)
[2017-09-24 06:04] LABS: HEMATOCRIT 32.7 % (37-47); HEMOGLOBIN 10.5 g/dL (12.0-16.0); MEAN CELL VOLUME 89.3 fL (80-100); MEAN CORPUSCULAR HEMOGLOBIN 28.7 pg (25-34); MEAN CORPUSCULAR HGB CONC 32.1 g/dl (32-36); MEAN PLATELET VOLUME 10.5 fL (7.4-10.4); PLATELET COUNT 145 K/uL (130-400); RED CELL DISTRIBUTION WIDTH CV 15.5 % (11.5-14.5); RED CELL DISTRIBUTION WIDTH SD 50.3 fL (36.4-46.3); WHITE BLOOD COUNT 11.45 K/uL (4.8-10.8)
[2017-09-24 07:27] VITALS: BP 102/64; PULSE 108; TEMP 37.7; O2SAT 92
[2017-09-24] MEDS: BuPROPion SR 100 MG TABCR PO SCH ×2 (08:21→13:37)
[2017-09-24] MEDS: CYCLOBENZAPRINE HCL 10 MG TAB PO PRN ×2 (08:22→21:06)
[2017-09-24] MEDS: AMLODIPINE BESYLATE 5 MG TAB PO SCH (08:28)
[2017-09-24] MEDS: FERROUS SULFATE 325 MG TAB PO SCH (08:30)
[2017-09-24] MEDS: ASPIRIN 81 MG ECTAB PO SCH (08:30)
[2017-09-24] MEDS: LISINOPRIL 10 MG TAB PO SCH (08:31)
[2017-09-24] MEDS: MYCOPHENOLATE MOFETIL 250 MG CAP (CELLCEPT) PO SCH ×2 (08:31→16:56)
[2017-09-24] MEDS: ASCORBIC ACID 500 MG TAB PO SCH (08:31)
[2017-09-24] MEDS: ATORVASTATIN 40 MG TAB PO SCH (08:33)
[2017-09-24] MEDS: CHOLECALCIFEROL 1000 INTER.UNIT TAB PO SCH (08:34)
[2017-09-24] MEDS: DULOXETINE HCL 60 MG CAP PO SCH (08:34)
[2017-09-24] MEDS: FoLIC ACID TAB 400 MCG TAB PO SCH (08:34)
[2017-09-24] MEDS: LORATADINE 10 MG TAB PO SCH (08:34)
[2017-09-24] MEDS: METOPROLOL SUCC 25MG EXT REL TAB PO SCH (08:35)
[2017-09-24] MEDS: PANTOprazole SOD 40 MG TAB PO SCH (08:35)
[2017-09-24] MEDS: DICLOFENAC SOD 1% GEL 100 GM TUBE EXT SCH ×4 (08:36→21:07)
[2017-09-24] MEDS: POLYETHYLENE (MIRALAX) 17 GM PACK PO SCH ×3 (08:36→21:07)
[2017-09-24] MEDS: NYSTATIN POWDER 15GM BTL EXT SCH ×2 (08:40→21:07)
[2017-09-24] MEDS: MICONAZOLE NITRATE POWDER 43 GM EXT PRN (08:41)
[2017-09-24] MEDS: HYDROCODONE/ACETAMIN 5/325MG TAB PO PRN (08:45)
[2017-09-24] MEDS: HEPARIN SOD 5000 UNIT/0.5 ML CARP SQ SCH ×3 (08:45→21:13)
[2017-09-24] MEDS ORDERED: hydrOXYzine HCL 25 MG TAB PO PRN (10:45)
[2017-09-24 13:47] VITALS: TEMP 36.6
[2017-09-24 15:03] VITALS: BP 97/67; PULSE 80; TEMP 36.8; O2SAT 93
--- NOTE | 2017-09-24 16:59 | Psychiatric Progress Notes ---
Psychiatric Progress Note Date of Service Sep 24, 2017. Notes ID: 62 y/o female followed on psychiatric consult service for depression, tolerating Cymbalta with benefits. Started several weeks ago. CC: "I wasn't doing well earlier." HPI: Patient reviewed with liaison nurse. Pt reported to be having agitated behavior this morning in the context of acute pain. Visit by psychiatric provider requested by patient's medical team. Pt was seen today along with psychiatric nurse liaison. Pt awoken from sleep for brief discussion. Pt shares with this provider the events of the morning, in which she had tried to use the restroom, but had difficult getting off the commode due to severe pain. Pt reports anxiety is "fine"; however, medical team states she has been occasionally overwhelmed at times, reporting hopelessness and helplessness. Discussed with patient orders for hydroxyzine 25mg prn for acute anxiety as well as 50mg for insomnia. Risks and benefits discussed. Pt verbalized understanding. Pt denies other concerns today. Current Inpatient Medications Medications (Trade) Dose Ordered Sig/Sukhdeep Route Start Time Stop Time Status Last Admin Dose Admin Heparin Sodium (Porcine) (Heparin Sq 5000 Unit/0.5ml) 5,000 unit Q8H SQ 09/18/17 07:00 10/18/17 06:59 09/24/17 14:51 5,000 UNIT Acetaminophen (Tylenol Tab) 650 mg Q4H PRN PO 09/18/17 04:00 10/18/17 03:59 09/23/17 06:36 650 MG Al Hydrox/Mg Hydrox/Simethicone (Maalox Max Susp) 15 ml Q4H PRN PO 09/18/17 04:00 10/18/17 03:59 Polyethylene (Miralax Powder Packet) 17 gm DAILY PRN PO 09/18/17 04:00 10/18/17 03:59 09/19/17 13:37 17 GM Ondansetron HCl (Zofran Inj) 4 mg Q6H PRN IV 09/18/17 04:00 10/18/17 03:59 09/24/17 04:33 4 MG Amlodipine Besylate (Norvasc Tab) 5 mg DAILY PO 09/18/17 08:00 10/18/17 08:59 09/24/17 08:28 5 MG Aspirin (Ecotrin Tab) 81 mg DAILY PO 09/18/17 08:00 10/18/17 08:59 09/24/17 08:30 81 MG Atorvastatin Calcium (Lipitor Tab) 80 mg DAILY PO 09/18/17 08:00 10/18/17 08:59 09/24/17 08:33 80 MG Cyclobenzaprine HCl (Flexeril Tab) 10 mg TID PRN PO 09/18/17 04:00 10/18/17 03:59 09/24/17 08:22 10 MG Diclofenac Sodium (Voltaren 1% Top Gel) 1 appln QID EXT 09/18/17 08:00 10/18/17 08:59 09/23/17 21:05 1 APPLN Fluocinonide (Lidex Oint) 1 appln BID PRN EXT 09/18/17 04:00 10/18/17 03:59 Acetaminophen/ Hydrocodone Bitart ([place] 5/325 Tab) 1 tab BID PRN PO 09/18/17 04:00 10/02/17 03:59 09/24/17 08:45 1 TAB Lisinopril (Zestril Tab) 10 mg DAILY PO 09/18/17 08:00 10/18/17 08:59 09/24/17 08:31 10 MG Loratadine (Claritin Tab) 10 mg DAILY PO 09/18/17 08:00 10/18/17 08:59 09/24/17 08:34 10 MG Metoprolol Succinate (Toprol Xl Tab) 25 mg DAILY PO 09/18/17 08:00 10/18/17 08:59 09/24/17 08:35 25 MG Mycophenolate Mofetil (Cellcept Cap) 1,000 mg BIDM PO 09/18/17 08:00 10/18/17 07:59 09/24/17 08:31 1,000 MG Nitroglycerin (Nitrostat Tab) 0.4 mg PRN UT 09/18/17 04:00 10/18/17 03:59 09/21/17 08:34 0.4 MG Nystatin (Mycostatin Powder) 1 appln BID EXT 09/18/17 08:00 10/18/17 08:59 09/24/17 08:40 1 APPLN Triamcinolone Acetonide (Kenalog 0.1% Cream) 1 appln BID PRN EXT 09/18/17 04:00 10/18/17 03:59 Ascorbic Acid (Vitamin C Tab) 250 mg DAILY PO 09/18/17 08:00 10/18/17 08:59 09/24/17 08:31 250 MG Cholecalciferol (Vitamin D Tab) 2,000 inter.unit DAILY PO 09/18/17 08:00 10/18/17 08:59 09/24/17 08:34 2,000 INTER.UNIT Ferrous Sulfate (Feosol Tab) 325 mg DAILY PO 09/18/17 08:00 10/18/17 08:59 09/24/17 08:30 325 MG Folic Acid (Folvite Tab) 800 mcg DAILY PO 09/18/17 08:00 10/18/17 08:59 09/24/17 08:34 800 MCG Pantoprazole Sodium (Protonix Tab) 40 mg DAILY PO 09/18/17 08:00 10/18/17 08:59 09/24/17 08:35 40 MG Miscellaneous (Iv Fluids Completed) 1 ea PRN PRN N/A 09/18/17 04:45 09/18/18 04:44 Miconazole Nitrate (Desenex Powder) 1 appln PRN PRN EXT 09/18/17 09:00 10/18/17 08:59 09/24/17 08:41 1 APPLN Senna/Docusate Sodium (Senokot S Tab) 2 tab HS PO 09/19/17 21:00 10/19/17 20:59 09/22/17 19:54 2 TAB Polyethylene (Miralax Powder Packet) 17 gm TID PO 09/20/17 20:00 10/20/17 19:59 09/23/17 08:19 17 GM Duloxetine HCl (Cymbalta Cap) 60 mg QAM PO 09/22/17 08:00 10/22/17 07:59 09/24/17 08:34 60 MG Ioversol (Optiray 320) 100 ml UD PRN IV 09/21/17 14:00 09/25/17 13:59 Bupropion HCl (Wellbutrin-Sr Tab) 200 mg [id number] PO 09/24/17 07:00 10/18/17 08:59 09/24/17 13:37 200 MG Hydroxyzine HCl (Vistaril Tab) 50 mg HS PRN PO 09/24/17 07:15 10/24/17 07:14 Hydroxyzine HCl (Vistaril Tab) 25 mg Q4 PRN PO 09/24/17 10:45 10/24/17 10:44 ROS: Psych: denies symptoms other than stated above Constitutional: reports chronic pain, specific hips today Cardiovascular: denied GI: denied Neurologic: denied Remainder of 10 body systems also reviewed and denied other than noted above. Vital Signs Past 12 Hours Date Time Temp Pulse Resp B/P (MAP) Pulse Ox O2 Delivery O2 Flow Rate FiO2 09/24/17 15:03 36.8 80 20 97/67 (77) 93 Room Air 09/24/17 13:47 36.6 09/24/17 08:30 Room Air 09/24/17 07:27 37.7 108 20 102/64 (77) 92 Room Air MSE: The patient presented as alert and cooperative, occasionally falling asleep during encounter. The patient was dressed in hospital gown. Eye contact was fair. No psychomotor restlessness or agitation was noted. Speech was normal in rate, rhythm, and volume. Affect was mood congruent. The patients mood appeared fair, subdued, but able to smile and laugh at times. Thought processes were clear, coherent and goal directed without evidence of loose associations or flight of ideas. Thought content/perception was reality based without delusions. The patient denied suicidal and homicidal ideation. The patient denied hallucinations and did not appear to be responding to internal stimuli. Cognition was grossly intact with orientation to person, place and time. Fund of Knowledge/Intelligence were consistent with level of education. Insight and Judgement were fair. Last 24 Hours Test 09/24/17 05:42 White Blood Count 11.45 K/uL Red Blood Count 3.66 M/uL Hemoglobin 10.5 g/dL Hematocrit 32.7 % Mean Corpuscular Volume 89.3 fL Mean Corpuscular Hemoglobin 28.7 pg Mean Corpuscular Hemoglobin Concent 32.1 g/dl RDW Standard Deviation 50.3 fL RDW Coefficient of Variation 15.5 % Platelet Count 145 K/uL Mean Platelet Volume 10.5 fL Imp: Pt's anxiety likely exacerbated by chronic/acute pain. Discussed with patient use of prn hydroxyzine for acute anxiety as well as higher dose for insomnia. Pt verbalized understanding and is agreeable to requesting the medication if she feels it may be helpful. Plan: 09/24 - Hydroxyzine 25mg q4h prn anxiety; 50mg qHS prn insomnia
[2017-09-24] MEDS: ACETAMINOPHEN 325 MG TAB PO PRN (17:36)
--- NOTE | 2017-09-24 19:19 | Progress Note ---
Medicine Progress Note Date & Time of Visit: Sep 24, 2017 at 11:00 . Subjective CC: Follow-up visit for back pain and other problems. HPI: Still experiencing severe back pain with right sciatica. Unable to perform ADL's like toileting independently. Had severe episode of back pain and associated anxiety this morning when trying to rise from toilet. ROS: General- no fever, no chills Resp- no cough; no shortness of breath Cardiac- no further chest pain GI- constipation resolved;no nausea, no vomiting - no urinary complaints . Objective Last 8 Hrs Date Time Temp Pulse Resp B/P (MAP) Pulse Ox O2 Delivery O2 Flow Rate FiO2 09/24/17 15:03 36.8 80 20 97/67 (77) 93 Room Air 09/24/17 13:47 36.6 Physical Exam: General- no acute distress Lungs- clear to auscultation; no respiratory distress Cardiovascular- RRR; no murmur or gallop appreciated; no JVD; no pretibial edema Abdomen- + bowel sounds, soft, nontender Back- lumbar tenderness Extremities- no cyanosis; no calf tenderness Neuro- alert, oriented Skin- warm & dry . Laboratory Results: Last 24 Hours Test 09/24/17 05:42 White Blood Count 11.45 K/uL Red Blood Count 3.66 M/uL Hemoglobin 10.5 g/dL Hematocrit 32.7 % Mean Corpuscular Volume 89.3 fL Mean Corpuscular Hemoglobin 28.7 pg Mean Corpuscular Hemoglobin Concent 32.1 g/dl RDW Standard Deviation 50.3 fL RDW Coefficient of Variation 15.5 % Platelet Count 145 K/uL Mean Platelet Volume 10.5 fL Assessment & Plan BACK PAIN MRI lumbar spine demonstrated spinal stenosis and bulging disc L5-S1. Ortho consult with Dr. Nesbitt; conservative management recommended. PT / OT. Pain Management consulted and will see patient in clinic for follow-up. Received Medrol taper. Continue [place] PRN; try not to increase narcotics. Planning on discharge to home with outpatient follow-up, but patient still very uncomfortable and unable to perform ADLs independently. Will probably need skilled care. HYPERTENSION Continue metoprolol, lisinopril, amlodipine. GERD Continue PPI. 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 MORBID OBESITY Wt 134 kg, BMI 47.7. AHA diet. CONSTIPATION Bowel regimen as ordered. DEPRESSION Psych consulted. Arrangements made for outpatient follow-up. Very anxious / depressed / chronic back pain. Increased duloxetine to 60 mg daily. CHEST PAIN 8/2 Atypical chest pain. EKG showed NSR, no acute changes. D-dimer elevated, but CTA of chest negative for PE and venous duplex of lower extremities negative for DVT. VTE PROPHYLAXIS SQ heparin. Ambulate. DISPOSITION Unable to perform ADLs independently or comfortably. Will probably need skilled care. Case Management consulted. Family Medicine follow-up with Dr. Marcus Talavera. . Current Inpatient Medications: Current Inpatient Medications Medications (Trade) Dose Ordered Sig/Sukhdeep Route Start Time Stop Time Status Last Admin Dose Admin Heparin Sodium (Porcine) (Heparin Sq 5000 Unit/0.5ml) 5,000 unit Q8H SQ 09/18/17 07:00 10/18/17 06:59 09/24/17 14:51 5,000 UNIT Acetaminophen (Tylenol Tab) 650 mg Q4H PRN PO 09/18/17 04:00 10/18/17 03:59 09/24/17 17:36 650 MG Al Hydrox/Mg Hydrox/Simethicone (Maalox Max Susp) 15 ml Q4H PRN PO 09/18/17 04:00 10/18/17 03:59 Polyethylene (Miralax Powder Packet) 17 gm DAILY PRN PO 09/18/17 04:00 10/18/17 03:59 09/19/17 13:37 17 GM Ondansetron HCl (Zofran Inj) 4 mg Q6H PRN IV 09/18/17 04:00 10/18/17 03:59 09/24/17 17:36 4 MG Amlodipine Besylate (Norvasc Tab) 5 mg DAILY PO 09/18/17 08:00 10/18/17 08:59 09/24/17 08:28 5 MG Aspirin (Ecotrin Tab) 81 mg DAILY PO 09/18/17 08:00 10/18/17 08:59 09/24/17 08:30 81 MG Atorvastatin Calcium (Lipitor Tab) 80 mg DAILY PO 09/18/17 08:00 10/18/17 08:59 09/24/17 08:33 80 MG Cyclobenzaprine HCl (Flexeril Tab) 10 mg TID PRN PO 09/18/17 04:00 10/18/17 03:59 09/24/17 08:22 10 MG Diclofenac Sodium (Voltaren 1% Top Gel) 1 appln QID EXT 09/18/17 08:00 10/18/17 08:59 09/23/17 21:05 1 APPLN Fluocinonide (Lidex Oint) 1 appln BID PRN EXT 09/18/17 04:00 10/18/17 03:59 Acetaminophen/ Hydrocodone Bitart ([place] 5/325 Tab) 1 tab BID PRN PO 09/18/17 04:00 10/02/17 03:59 09/24/17 08:45 1 TAB Lisinopril (Zestril Tab) 10 mg DAILY PO 09/18/17 08:00 10/18/17 08:59 09/24/17 08:31 10 MG Loratadine (Claritin Tab) 10 mg DAILY PO 09/18/17 08:00 10/18/17 08:59 09/24/17 08:34 10 MG Metoprolol Succinate (Toprol Xl Tab) 25 mg DAILY PO 09/18/17 08:00 10/18/17 08:59 09/24/17 08:35 25 MG Mycophenolate Mofetil (Cellcept Cap) 1,000 mg BIDM PO 09/18/17 08:00 10/18/17 07:59 09/24/17 16:56 1,000 MG Nitroglycerin (Nitrostat Tab) 0.4 mg PRN UT 09/18/17 04:00 10/18/17 03:59 09/21/17 08:34 0.4 MG Nystatin (Mycostatin Powder) 1 appln BID EXT 09/18/17 08:00 10/18/17 08:59 09/24/17 08:40 1 APPLN Triamcinolone Acetonide (Kenalog 0.1% Cream) 1 appln BID PRN EXT 09/18/17 04:00 10/18/17 03:59 Ascorbic Acid (Vitamin C Tab) 250 mg DAILY PO 09/18/17 08:00 10/18/17 08:59 09/24/17 08:31 250 MG Cholecalciferol (Vitamin D Tab) 2,000 inter.unit DAILY PO 09/18/17 08:00 10/18/17 08:59 09/24/17 08:34 2,000 INTER.UNIT Ferrous Sulfate (Feosol Tab) 325 mg DAILY PO 09/18/17 08:00 10/18/17 08:59 09/24/17 08:30 325 MG Folic Acid (Folvite Tab) 800 mcg DAILY PO 09/18/17 08:00 10/18/17 08:59 09/24/17 08:34 800 MCG Pantoprazole Sodium (Protonix Tab) 40 mg DAILY PO 09/18/17 08:00 10/18/17 08:59 09/24/17 08:35 40 MG Miscellaneous (Iv Fluids Completed) 1 ea PRN PRN N/A 09/18/17 04:45 09/18/18 04:44 Miconazole Nitrate (Desenex Powder) 1 appln PRN PRN EXT 09/18/17 09:00 10/18/17 08:59 09/24/17 08:41 1 APPLN Senna/Docusate Sodium (Senokot S Tab) 2 tab HS PO 09/19/17 21:00 10/19/17 20:59 09/22/17 19:54 2 TAB Polyethylene (Miralax Powder Packet) 17 gm TID PO 09/20/17 20:00 10/20/17 19:59 09/23/17 08:19 17 GM Duloxetine HCl (Cymbalta Cap) 60 mg QAM PO 09/22/17 08:00 10/22/17 07:59 09/24/17 08:34 60 MG Ioversol (Optiray 320) 100 ml UD PRN IV 09/21/17 14:00 09/25/17 13:59 Bupropion HCl (Wellbutrin-Sr Tab) 200 mg [id number] PO 09/24/17 07:00 10/18/17 08:59 09/24/17 13:37 200 MG Hydroxyzine HCl (Vistaril Tab) 50 mg HS PRN PO 09/24/17 07:15 10/24/17 07:14 Hydroxyzine HCl (Vistaril Tab) 25 mg Q4 PRN PO 09/24/17 10:45 10/24/17 10:44
[2017-09-24] MEDS: DOCUSATE SODIUM/SENNA 50/8.6MG TAB PO SCH (21:00)
[2017-09-24] MEDS: hydrOXYzine HCL 25 MG TAB PO PRN (21:06)
[2017-09-25] VITALS (7 sets, daily range): BP systolic 82–176; BP diastolic 51–72; PULSE 77–124; TEMP 34.6–39.1; O2SAT 90–92
[2017-09-25] MEDS: HYDROCODONE/ACETAMIN 5/325MG TAB PO PRN (06:08)
[2017-09-25] MEDS: BuPROPion SR 100 MG TABCR PO SCH ×2 (06:08→13:50)
[2017-09-25] MEDS: HEPARIN SOD 5000 UNIT/0.5 ML CARP SQ SCH ×3 (06:41→21:04)
[2017-09-25 07:28] LABS: HEMATOCRIT 35.2 % (37-47); HEMOGLOBIN 11.4 g/dL (12.0-16.0); IG# 0.04 K/uL (0.00-0.02); LYMPH % 3.8 %; LYMPH ABS # 0.25 K/uL (1.2-3.4); MEAN CELL VOLUME 89.3 fL (80-100); MEAN CORPUSCULAR HEMOGLOBIN 28.9 pg (25-34); MEAN CORPUSCULAR HGB CONC 32.4 g/dl (32-36); MEAN PLATELET VOLUME 11.3 fL (7.4-10.4); MONO % 0.9 %; MONO ABS # 0.06 K/uL (0.11-0.59); NEUT % 94.7 %; NEUT ABS # 6.16 K/uL (1.4-6.5); PLATELET COUNT 113 K/uL (130-400); RED CELL DISTRIBUTION WIDTH SD 52.5 fL (36.4-46.3); WHITE BLOOD COUNT 6.51 K/uL (4.8-10.8)
[2017-09-25 07:59] LABS: CALCIUM 7.6 mg/dl (8.5-10.1); CREATININE 1.93 mg/dl (0.60-1.20); POTASSIUM 4.9 mmol/L (3.5-5.1)
[2017-09-25] MEDS: FERROUS SULFATE 325 MG TAB PO SCH (08:06)
[2017-09-25] MEDS: LORATADINE 10 MG TAB PO SCH (08:06)
[2017-09-25] MEDS: DULOXETINE HCL 60 MG CAP PO SCH (08:06)
[2017-09-25] MEDS: ASPIRIN 81 MG ECTAB PO SCH (08:06)
[2017-09-25] MEDS: MYCOPHENOLATE MOFETIL 250 MG CAP (CELLCEPT) PO SCH (08:06)
[2017-09-25] MEDS: ATORVASTATIN 40 MG TAB PO SCH (08:07)
[2017-09-25] MEDS: FoLIC ACID TAB 400 MCG TAB PO SCH (08:07)
[2017-09-25] MEDS: AMLODIPINE BESYLATE 5 MG TAB PO SCH (08:07)
[2017-09-25] MEDS: POLYETHYLENE (MIRALAX) 17 GM PACK PO SCH ×3 (08:07→20:15)
[2017-09-25] MEDS: CYCLOBENZAPRINE HCL 10 MG TAB PO PRN ×2 (08:08→21:50)
[2017-09-25] MEDS: METOPROLOL SUCC 25MG EXT REL TAB PO SCH (08:08)
[2017-09-25] MEDS: CHOLECALCIFEROL 1000 INTER.UNIT TAB PO SCH (08:08)
[2017-09-25] MEDS: ASCORBIC ACID 500 MG TAB PO SCH (08:08)
[2017-09-25] MEDS: LISINOPRIL 10 MG TAB PO SCH (08:08)
[2017-09-25] MEDS: PANTOprazole SOD 40 MG TAB PO SCH (08:08)
[2017-09-25] MEDS: ACETAMINOPHEN 325 MG TAB PO PRN (08:09)
[2017-09-25] MEDS: DICLOFENAC SOD 1% GEL 100 GM TUBE EXT SCH ×4 (10:58→20:15)
[2017-09-25] MEDS: SODIUM CHLORIDE 0.9% 1000ML 1,000 ML IV SCH (10:59)
[2017-09-25] MEDS: NYSTATIN POWDER 15GM BTL EXT SCH ×2 (10:59→20:14)
[2017-09-25] MEDS ORDERED: SODIUM CHLORIDE 0.9% 1000ML 1,000 ML IV SCH (11:15)
[2017-09-25] MEDS ORDERED: GABAPENTIN 300 MG CAP PO ONE (11:34)
--- NOTE | 2017-09-25 11:47 | Progress Note ---
Medicine Progress Note Date & Time of Visit: Sep 25, 2017 at 11:34. Subjective seen resting in bed, awake, alert in good spirits states back pain is improving today no leg weakness/numbness (+) fever of 39, BP syst 83 denies dizziness, chest pain, dyspnea (+) dysuria no other symptoms Objective Last 8 Hrs Date Time Temp Pulse Resp B/P (MAP) Pulse Ox O2 Delivery O2 Flow Rate FiO2 09/25/17 10:48 36.9 104 83/51 (62) 09/25/17 09:51 Room Air 09/25/17 07:48 39.1 124 20 176/71 (106) 92 Physical Exam: General- oriented x 3, not in distress, speaks in sentences with no effort Head- atraumatic Eyes-anicteric ENT- oropharynx clear; dry oral mucosa Neck- supple, no JVD Lungs- clear to auscultation bilaterally Heart- regular rhythm; no murmur, normal rate Abdomen- normal bowel sounds, soft, nontender Extremities- no pretibial edema, no calf tenderness; peripheral pulses intact Neuro- alert, oriented x 3; no gross focal deficits Skin- warm & dry Laboratory Results: Last 24 Hours Test 09/25/17 07:18 09/25/17 09:13 09/25/17 11:29 White Blood Count 6.51 K/uL Red Blood Count 3.94 M/uL Hemoglobin 11.4 g/dL Hematocrit 35.2 % Mean Corpuscular Volume 89.3 fL Mean Corpuscular Hemoglobin 28.9 pg Mean Corpuscular Hemoglobin Concent 32.4 g/dl Platelet Count 113 K/uL Mean Platelet Volume 11.3 fL Neutrophils (%) (Auto) 94.7 % Lymphocytes (%) (Auto) 3.8 % Monocytes (%) (Auto) 0.9 % Eosinophils (%) (Auto) 0.0 % Basophils (%) (Auto) 0.0 % Neutrophils # (Auto) 6.16 K/uL Lymphocytes # (Auto) 0.25 K/uL Monocytes # (Auto) 0.06 K/uL Eosinophils # (Auto) 0.00 K/uL Basophils # (Auto) 0.00 K/uL RDW Standard Deviation 52.5 fL RDW Coefficient of Variation 16.0 % Immature Granulocyte % (Auto) 0.6 % Immature Granulocyte # (Auto) 0.04 K/uL Sodium Level 131 mmol/L Potassium Level 4.9 mmol/L Chloride Level 102 mmol/L Carbon Dioxide Level 22 mmol/L Anion Gap 7.0 mmol/L Blood Urea Nitrogen 36 mg/dl Creatinine 1.93 mg/dl Est Creatinine Clear Calc Drug Dose 43.6 ml/min Estimated GFR () 32.0 Estimated GFR (Non- 27.6 BUN/Creatinine Ratio 18.8 Random Glucose 72 mg/dl Calcium Level 7.6 mg/dl Urine Color DK YELLOW Urine Appearance TURBID Urine pH 5.0 Urine Specific [place] 1.016 Urine Protein 2+ Urine Glucose (UA) NEG Urine Ketones NEG Urine Occult Blood 3+ Urine Nitrite NEG Urine Bilirubin NEG Urine Urobilinogen NEG Urine Leukocyte Esterase LARGE Urine WBC (Auto) >30 /hpf Urine RBC (Auto) 5-10 /hpf Urine Hyaline Casts (Auto) 1-5 /lpf Urine Epithelial Cells (Auto) 10-20 /lpf Urine Bacteria (Auto) 4+ Urine Crystals UNIDENTIFIED Urine Pathogenic Casts /lpf Urine Yeast (Auto) Date/Time Source Procedure Growth Status 09/25/17 11:21 Blood Blood Culture Pending Received 09/25/17 11:13 Blood Blood Culture Pending Received Assessment & Plan BACK PAIN, SPINAL STENOSIS, L5-S 1 BULGING DISC MRI lumbar spine demonstrated spinal stenosis and bulging disc L5-S1. Ortho consult with Dr. Nesbitt; conservative management recommended. Pain Management consulted and will see patient in clinic for follow-up. Received Medrol taper. Continue [place] PRN added Gabapentin 300mg BID PT/OT may needs Rehab/SNF FEVER, POSSIBLE UTI urine culture: pending blood cultures: pending start empiric Ceftri 1g IV daily hold Cellcept for today monitor HYPOTENSION likely from dehydration check Lactic Acid NSS 1 L bolus IV NSS at 75cc hold Amlodipine ACUTE RENAL FAILURE likely pre renal etiology crea 1.9 IV NSS as above d/c Lisinopril HYPERTENSION BP low today hold lisinopril, amlodipine continue Metoprolol GERD Continue PPI. BULLOUS PEMPHIGOID HOLD mycophenolate mofetil in light of fever, underlying infection on denosumab MORBID OBESITY Wt 134 kg, BMI 47.7. AHA diet. CONSTIPATION Bowel regimen as ordered. DEPRESSION Psych consulted. Arrangements made for outpatient follow-up. Very anxious / depressed / chronic back pain. Increased duloxetine to 60 mg daily. CHEST PAIN 8/2 Atypical chest pain. EKG showed NSR, no acute changes. D-dimer elevated, but CTA of chest negative for PE and venous duplex of lower extremities negative for DVT. VTE PROPHYLAXIS SQ heparin. Ambulate. DISPOSITION management of infection as noted above Unable to perform ADLs independently or comfortably. Will probably need skilled care. Case Management consulted. Family Medicine follow-up with Dr. Marcus Talavera. . Current Inpatient Medications: Current Inpatient Medications Medications (Trade) Dose Ordered Sig/Sukhdeep Route Start Time Stop Time Status Last Admin Dose Admin Heparin Sodium (Porcine) (Heparin Sq 5000 Unit/0.5ml) 5,000 unit Q8H SQ 09/18/17 07:00 10/18/17 06:59 09/25/17 06:41 5,000 UNIT Acetaminophen (Tylenol Tab) 650 mg Q4H PRN PO 09/18/17 04:00 10/18/17 03:59 09/25/17 08:09 650 MG Al Hydrox/Mg Hydrox/Simethicone (Maalox Max Susp) 15 ml Q4H PRN PO 09/18/17 04:00 10/18/17 03:59 Polyethylene (Miralax Powder Packet) 17 gm DAILY PRN PO 09/18/17 04:00 10/18/17 03:59 09/19/17 13:37 17 GM Ondansetron HCl (Zofran Inj) 4 mg Q6H PRN IV 09/18/17 04:00 10/18/17 03:59 09/24/17 17:36 4 MG Aspirin (Ecotrin Tab) 81 mg DAILY PO 09/18/17 08:00 10/18/17 08:59 09/25/17 08:06 81 MG Atorvastatin Calcium (Lipitor Tab) 80 mg DAILY PO 09/18/17 08:00 10/18/17 08:59 09/25/17 08:07 80 MG Cyclobenzaprine HCl (Flexeril Tab) 10 mg TID PRN PO 09/18/17 04:00 10/18/17 03:59 09/25/17 08:08 10 MG Diclofenac Sodium (Voltaren 1% Top Gel) 1 appln QID EXT 09/18/17 08:00 10/18/17 08:59 09/23/17 21:05 1 APPLN Fluocinonide (Lidex Oint) 1 appln BID PRN EXT 09/18/17 04:00 10/18/17 03:59 Acetaminophen/ Hydrocodone Bitart ([place] 5/325 Tab) 1 tab BID PRN PO 09/18/17 04:00 10/02/17 03:59 09/25/17 06:08 1 TAB Loratadine (Claritin Tab) 10 mg DAILY PO 09/18/17 08:00 10/18/17 08:59 09/25/17 08:06 10 MG Metoprolol Succinate (Toprol Xl Tab) 25 mg DAILY PO 09/18/17 08:00 10/18/17 08:59 09/25/17 08:08 25 MG Nitroglycerin (Nitrostat Tab) 0.4 mg PRN UT 09/18/17 04:00 10/18/17 03:59 09/21/17 08:34 0.4 MG Nystatin (Mycostatin Powder) 1 appln BID EXT 09/18/17 08:00 10/18/17 08:59 09/25/17 10:59 1 APPLN Triamcinolone Acetonide (Kenalog 0.1% Cream) 1 appln BID PRN EXT 09/18/17 04:00 10/18/17 03:59 Ascorbic Acid (Vitamin C Tab) 250 mg DAILY PO 09/18/17 08:00 10/18/17 08:59 09/25/17 08:08 250 MG Cholecalciferol (Vitamin D Tab) 2,000 inter.unit DAILY PO 09/18/17 08:00 10/18/17 08:59 09/25/17 08:08 2,000 INTER.UNIT Ferrous Sulfate (Feosol Tab) 325 mg DAILY PO 09/18/17 08:00 10/18/17 08:59 09/25/17 08:06 325 MG Folic Acid (Folvite Tab) 800 mcg DAILY PO 09/18/17 08:00 10/18/17 08:59 09/25/17 08:07 800 MCG Pantoprazole Sodium (Protonix Tab) 40 mg DAILY PO 09/18/17 08:00 10/18/17 08:59 09/25/17 08:08 40 MG Miscellaneous (Iv Fluids Completed) 1 ea PRN PRN N/A 09/18/17 04:45 09/18/18 04:44 Miconazole Nitrate (Desenex Powder) 1 appln PRN PRN EXT 09/18/17 09:00 10/18/17 08:59 09/24/17 08:41 1 APPLN Senna/Docusate Sodium (Senokot S Tab) 2 tab HS PO 09/19/17 21:00 10/19/17 20:59 09/22/17 19:54 2 TAB Polyethylene (Miralax Powder Packet) 17 gm TID PO 09/20/17 20:00 10/20/17 19:59 09/25/17 08:07 17 GM Duloxetine HCl (Cymbalta Cap) 60 mg QAM PO 09/22/17 08:00 10/22/17 07:59 09/25/17 08:06 60 MG Ioversol (Optiray 320) 100 ml UD PRN IV 09/21/17 14:00 09/25/17 13:59 Bupropion HCl (Wellbutrin-Sr Tab) 200 mg [id number] PO 09/24/17 07:00 10/18/17 08:59 09/25/17 06:08 200 MG Hydroxyzine HCl (Vistaril Tab) 50 mg HS PRN PO 09/24/17 07:15 10/24/17 07:14 09/24/17 21:06 50 MG Hydroxyzine HCl (Vistaril Tab) 25 mg Q4 PRN PO 09/24/17 10:45 10/24/17 10:44 Ceftriaxone Sodium 1 gm/ Dextrose 50 ml @ 100 mls/hr Q24H IV 09/25/17 11:00 09/30/17 10:59 Sodium Chloride 1,000 ml @ 75 mls/hr [id number] IV 09/25/17 10:45 10/25/17 10:44 09/25/17 10:59 75 MLS/HR Sodium Chloride 1,000 ml @ 999 mls/hr Q1H1M IV 09/25/17 11:15 09/25/17 12:15 Gabapentin (Neurontin Cap) 300 mg BID PO 09/25/17 20:00 10/25/17 19:59 Gabapentin (Neurontin) 300 mg 1119 ONCE PO 09/25/17 11:19 09/25/17 11:20 UNV
[2017-09-25] MEDS: CEFTRIAXONE SOD INJ 1 GM in DEXTROSE 5% ADD-VANTAGE 50ML 50 ML IV SCH (12:20)
[2017-09-25] MEDS ORDERED: SODIUM CHLORIDE 0.9% 500ML 500 ML IV SCH (14:30)
[2017-09-25] MEDS: GABAPENTIN 300 MG CAP PO SCH (20:15)
[2017-09-25] MEDS: hydrOXYzine HCL 25 MG TAB PO PRN (20:15)
[2017-09-25] MEDS: DOCUSATE SODIUM/SENNA 50/8.6MG TAB PO SCH (20:16)
[2017-09-26] VITALS (7 sets, daily range): BP systolic 98–111; BP diastolic 63–71; PULSE 86–110; TEMP 36.7–37.5; O2SAT 87–97
[2017-09-26] MEDS: SODIUM CHLORIDE 0.9% 1000ML 1,000 ML IV SCH ×2 (01:54→15:29)
[2017-09-26] MEDS: HEPARIN SOD 5000 UNIT/0.5 ML CARP SQ SCH (06:07)
[2017-09-26] MEDS: BuPROPion SR 100 MG TABCR PO SCH ×2 (06:08→15:28)
[2017-09-26] MEDS: NYSTATIN POWDER 15GM BTL EXT SCH ×2 (08:11→20:09)
[2017-09-26] MEDS: DICLOFENAC SOD 1% GEL 100 GM TUBE EXT SCH ×4 (08:11→20:09)
[2017-09-26] MEDS: LORATADINE 10 MG TAB PO SCH (08:11)
[2017-09-26] MEDS: METOPROLOL SUCC 25MG EXT REL TAB PO SCH (08:11)
[2017-09-26] MEDS: PANTOprazole SOD 40 MG TAB PO SCH (08:11)
[2017-09-26] MEDS: CHOLECALCIFEROL 1000 INTER.UNIT TAB PO SCH (08:12)
[2017-09-26] MEDS: DULOXETINE HCL 60 MG CAP PO SCH (08:12)
[2017-09-26] MEDS: POLYETHYLENE (MIRALAX) 17 GM PACK PO SCH ×3 (08:12→20:10)
[2017-09-26] MEDS: FoLIC ACID TAB 400 MCG TAB PO SCH (08:12)
[2017-09-26] MEDS: GABAPENTIN 300 MG CAP PO SCH (08:13)
[2017-09-26] MEDS: CYCLOBENZAPRINE HCL 10 MG TAB PO PRN (08:13)
[2017-09-26] MEDS: ASCORBIC ACID 500 MG TAB PO SCH (08:13)
[2017-09-26] MEDS: ATORVASTATIN 40 MG TAB PO SCH (08:13)
[2017-09-26] MEDS: ASPIRIN 81 MG ECTAB PO SCH (08:14)
[2017-09-26] MEDS: FERROUS SULFATE 325 MG TAB PO SCH (08:14)
[2017-09-26 09:42] LABS: HEMATOCRIT 29.2 % (37-47); HEMOGLOBIN 9.4 g/dL (12.0-16.0); MEAN CELL VOLUME 90.1 fL (80-100); MEAN CORPUSCULAR HGB CONC 32.2 g/dl (32-36); MEAN PLATELET VOLUME 10.8 fL (7.4-10.4); PLATELET COUNT 101 K/uL (130-400); RED CELL DISTRIBUTION WIDTH CV 16.6 % (11.5-14.5); RED CELL DISTRIBUTION WIDTH SD 55.2 fL (36.4-46.3); WHITE BLOOD COUNT 16.47 K/uL (4.8-10.8)
--- NOTE | 2017-09-26 09:57 | Progress Note ---
Medicine Progress Note Date & Time of Visit: Sep 26, 2017 at 09:50. Subjective seen resting in bed was not able to tolerate sitting up with PT , due to severe low back pain denies weakness/numbness, incontinence has mild lower abdominal pain ,no dysuria/nausea no other symptoms Objective Last 8 Hrs Date Time Temp Pulse Resp B/P (MAP) Pulse Ox O2 Delivery O2 Flow Rate FiO2 09/26/17 07:32 36.8 86 18 111/71 (84) 90 Room Air Physical Exam: General- oriented x 3, not in distress, speaks in sentences with no effort Head- atraumatic Eyes-anicteric ENT- dry oral mucosa Neck- no JVD Lungs- clear breath sounds bilaterally no rales/wheezes Heart- regular rhythm; no murmur, normal rate Abdomen- normal bowel sounds, soft, nontender (+) drying wounds on the groin area, b/l Extremities- no pretibial edema, no calf tenderness Neuro- alert, oriented x 3; no gross focal deficits Skin- warm & dry Laboratory Results: Last 24 Hours Test 09/25/17 11:29 09/26/17 09:31 Lactic Acid Level 1.2 mmol/L White Blood Count 16.47 K/uL Red Blood Count 3.24 M/uL Hemoglobin 9.4 g/dL Hematocrit 29.2 % Mean Corpuscular Volume 90.1 fL Mean Corpuscular Hemoglobin 29.0 pg Mean Corpuscular Hemoglobin Concent 32.2 g/dl Platelet Count 101 K/uL Mean Platelet Volume 10.8 fL RDW Standard Deviation 55.2 fL RDW Coefficient of Variation 16.6 % Date/Time Source Procedure Growth Status 09/25/17 11:21 Blood Blood Culture - Preliminary Gram Negative Bacilli Resulted 09/25/17 11:13 Blood Blood Culture - Preliminary Gram Negative Bacilli Resulted 09/25/17 20:00 Urine , Clean Catch Urine Culture - Preliminary Gram Negative Bacilli Resulted Assessment & Plan BACK PAIN, SPINAL STENOSIS, L5-S 1 BULGING DISC MRI lumbar spine demonstrated spinal stenosis and bulging disc L5-S1. Ortho consult with Dr. Nesbitt; conservative management recommended. Pain Management consulted and will see patient in clinic for follow-up. Received Medrol taper. Continue [place] PRN added Gabapentin 300mg BID back pain not improving - will re-consult Pain Management SVC GRAM NEGATIVE BACILLI, UTI AND BACTEREMIA 09/25/17: (+) fever of 39, hypotension urine culture: gram neg bacilli blood cultures: : " has history of enterococcus UTI in 2015, resistant to ampicillin, sens to vanco afebrile since last night, hypotension resolved CBC pending continue empiric Ceftri IV Day 2 hold Cellcept (day 2) may need to re-image spine to r/o discitis? will consult ID HYPOTENSION likely from dehydration IV NSS at 75cc hold Amlodipine ACUTE RENAL FAILURE likely pre renal etiology crea 1.9 IV NSS as above d/c Lisinopril - crea pending HYPERTENSION hold lisinopril, amlodipine continue Metoprolol GERD Continue PPI. BULLOUS PEMPHIGOID BILATERAL GROIN WOUNDS HOLD mycophenolate mofetil in light of fever, underlying infection (day 2) on denosumab will discuss with Derm Wound care consulted MORBID OBESITY Wt 134 kg, BMI 47.7. AHA diet. CONSTIPATION Bowel regimen as ordered. DEPRESSION Psych consulted. Arrangements made for outpatient follow-up. Very anxious / depressed / chronic back pain. Increased duloxetine to 60 mg daily. CHEST PAIN 09/21 Atypical chest pain. EKG showed NSR, no acute changes. D-dimer elevated, but CTA of chest negative for PE and venous duplex of lower extremities negative for DVT. VTE PROPHYLAXIS SQ heparin. Ambulate. DISPOSITION management of infection as noted above Unable to perform ADLs independently or comfortably. Will probably need skilled care. Case Management consulted. Family Medicine follow-up with Dr. Marcus Talavera. . Current Inpatient Medications: Current Inpatient Medications Medications (Trade) Dose Ordered Sig/Sukhdeep Route Start Time Stop Time Status Last Admin Dose Admin Heparin Sodium (Porcine) (Heparin Sq 5000 Unit/0.5ml) 5,000 unit Q8H SQ 09/18/17 07:00 10/18/17 06:59 09/26/17 06:07 5,000 UNIT Acetaminophen (Tylenol Tab) 650 mg Q4H PRN PO 09/18/17 04:00 10/18/17 03:59 09/25/17 08:09 650 MG Al Hydrox/Mg Hydrox/Simethicone (Maalox Max Susp) 15 ml Q4H PRN PO 09/18/17 04:00 10/18/17 03:59 Polyethylene (Miralax Powder Packet) 17 gm DAILY PRN PO 09/18/17 04:00 10/18/17 03:59 09/19/17 13:37 17 GM Ondansetron HCl (Zofran Inj) 4 mg Q6H PRN IV 09/18/17 04:00 10/18/17 03:59 09/24/17 17:36 4 MG Aspirin (Ecotrin Tab) 81 mg DAILY PO 09/18/17 08:00 10/18/17 08:59 09/26/17 08:14 81 MG Atorvastatin Calcium (Lipitor Tab) 80 mg DAILY PO 09/18/17 08:00 10/18/17 08:59 09/26/17 08:13 80 MG Cyclobenzaprine HCl (Flexeril Tab) 10 mg TID PRN PO 09/18/17 04:00 10/18/17 03:59 09/26/17 08:13 10 MG Diclofenac Sodium (Voltaren 1% Top Gel) 1 appln QID EXT 09/18/17 08:00 10/18/17 08:59 09/26/17 08:11 1 APPLN Fluocinonide (Lidex Oint) 1 appln BID PRN EXT 09/18/17 04:00 10/18/17 03:59 Acetaminophen/ Hydrocodone Bitart ([place] 5/325 Tab) 1 tab BID PRN PO 09/18/17 04:00 10/02/17 03:59 09/25/17 06:08 1 TAB Loratadine (Claritin Tab) 10 mg DAILY PO 09/18/17 08:00 10/18/17 08:59 09/26/17 08:11 10 MG Metoprolol Succinate (Toprol Xl Tab) 25 mg DAILY PO 09/18/17 08:00 10/18/17 08:59 09/26/17 08:11 25 MG Nitroglycerin (Nitrostat Tab) 0.4 mg PRN UT 09/18/17 04:00 10/18/17 03:59 09/21/17 08:34 0.4 MG Nystatin (Mycostatin Powder) 1 appln BID EXT 09/18/17 08:00 10/18/17 08:59 09/26/17 08:11 1 APPLN Triamcinolone Acetonide (Kenalog 0.1% Cream) 1 appln BID PRN EXT 09/18/17 04:00 10/18/17 03:59 Ascorbic Acid (Vitamin C Tab) 250 mg DAILY PO 09/18/17 08:00 10/18/17 08:59 09/26/17 08:13 250 MG Cholecalciferol (Vitamin D Tab) 2,000 inter.unit DAILY PO 09/18/17 08:00 10/18/17 08:59 09/26/17 08:12 2,000 INTER.UNIT Ferrous Sulfate (Feosol Tab) 325 mg DAILY PO 09/18/17 08:00 10/18/17 08:59 09/26/17 08:14 325 MG Folic Acid (Folvite Tab) 800 mcg DAILY PO 09/18/17 08:00 10/18/17 08:59 09/26/17 08:12 800 MCG Pantoprazole Sodium (Protonix Tab) 40 mg DAILY PO 09/18/17 08:00 10/18/17 08:59 09/26/17 08:11 40 MG Miscellaneous (Iv Fluids Completed) 1 ea PRN PRN N/A 09/18/17 04:45 09/18/18 04:44 Miconazole Nitrate (Desenex Powder) 1 appln PRN PRN EXT 09/18/17 09:00 10/18/17 08:59 09/24/17 08:41 1 APPLN Senna/Docusate Sodium (Senokot S Tab) 2 tab HS PO 09/19/17 21:00 10/19/17 20:59 09/25/17 20:16 2 TAB Polyethylene (Miralax Powder Packet) 17 gm TID PO 09/20/17 20:00 10/20/17 19:59 09/26/17 08:12 17 GM Duloxetine HCl (Cymbalta Cap) 60 mg QAM PO 09/22/17 08:00 10/22/17 07:59 09/26/17 08:12 60 MG Bupropion HCl (Wellbutrin-Sr Tab) 200 mg [id number] PO 09/24/17 07:00 10/18/17 08:59 09/26/17 06:08 200 MG Hydroxyzine HCl (Vistaril Tab) 50 mg HS PRN PO 09/24/17 07:15 10/24/17 07:14 09/25/17 20:15 50 MG Hydroxyzine HCl (Vistaril Tab) 25 mg Q4 PRN PO 09/24/17 10:45 10/24/17 10:44 Ceftriaxone Sodium 1 gm/ Dextrose 50 ml @ 100 mls/hr Q24H IV 09/25/17 11:00 09/30/17 10:59 09/25/17 12:20 100 MLS/HR Sodium Chloride 1,000 ml @ 75 mls/hr [id number] IV 09/25/17 10:45 10/25/17 10:44 09/26/17 01:54 75 MLS/HR Gabapentin (Neurontin Cap) 300 mg BID PO 09/25/17 20:00 10/25/17 19:59 09/26/17 08:13 300 MG
[2017-09-26 10:03] LABS: CALCIUM 6.7 mg/dl (8.5-10.1); CREATININE 2.1 mg/dl (0.60-1.20); POTASSIUM 4.2 mmol/L (3.5-5.1)
[2017-09-26 10:05] LABS: BASO % 0.1 %; BASO ABS # 0.01 K/uL (0-0.2); EOS % 0.2 %; EOS ABS # 0.04 K/uL (0-0.5); IG# 0.08 K/uL (0.00-0.02); LYMPH % 4.5 %; LYMPH ABS # 0.74 K/uL (1.2-3.4); MONO % 4.3 %; NEUT % 90.4 %
[2017-09-26] MEDS: ONDANSETRON INJ 2 MG/ML 2 ML VIAL IV PRN (11:31)
[2017-09-26] MEDS: CEFTRIAXONE SOD INJ 1 GM in DEXTROSE 5% ADD-VANTAGE 50ML 50 ML IV SCH (11:31)
--- NOTE | 2017-09-26 13:00 | Progress Note ---
Progress Note Date of Service Sep 26, 2017. Progress Note ID Consult Dictated #[id number] A/P: 1. GNR Septicemia 2 . UTI 3. Leukocytosis 4. Fever -Continue abx -Repeat cultures, await additional micro data -Consider ct abd -Will follow, thank you
--- NOTE | 2017-09-26 13:55 | INFECT. DISEASE CONSULTATION ---
DATE OF CONSULTATION: 09/26/2017 HISTORY OF PRESENT ILLNESS: This is a 62-year-old female who was admitted with intractable back pain. She does have a history of back pain. She was followed by orthopedic surgery here. She did have an MRI, which did not show any acute change, and she was suggested to be managed conservatively. Throughout her hospital stay, she has had worsening fever. On the , she had a T-max of 37.6, on the 37.7, and on the , 39.1. On the , blood and urine cultures were obtained secondary to fever, and both are positive for gram negative rods. Her initial UA on the was negative. Her white blood cell count has increased throughout her hospital stay and is currently 16.4. Her creatinine is also increasing and is 2.1 today. She was started on Rocephin yesterday and appears to be tolerating this well. On my examination, she is lethargic and is not answering questions. She is also being evaluated by psychiatry during her admission here. She does appear comfortable on my exam. ALLERGIES: IBUPROFEN. PAST MEDICAL HISTORY: Significant for history of compression fractures with kyphoplasty, bullous pemphigoid, hypertension, chronic kidney disease, obesity, spinal stenosis, GERD, osteoporosis, irritable bowel syndrome, stress incontinence. PAST SURGICAL HISTORY: Significant for colonoscopy, heart catheterization, ganglion cyst removal, kyphoplasty, and knee surgery. FAMILY HISTORY: Noncontributory. SOCIAL HISTORY: Significant for a history of tobacco use. There is no history of drug or alcohol use. CURRENT MEDICATIONS: Neurontin, Rocephin, Vistaril, Wellbutrin, Cymbalta, MiraLax, Senokot, Desenex, aspirin, Lipitor, Claritin, Topral XL, Nystatin powder, iron, vitamin D, folic acid, Protonix, subcu heparin, Maalox, MiraLax, Zofran, Flexeril, Percocet. PHYSICAL EXAMINATION: VITAL SIGNS: She is currently afebrile, pulse 86, respiratory rate 18, blood pressure 111/71, oxygen saturation is 90% on room air. GENERAL: She is resting and does not open her eyes or answer to any verbal or tactile stimuli on my examination, but she does appear comfortable. Nursing is with me on my examination and also has tried to arouse her and states that she is intermittently unresponsive to commands. CARDIOVASCULAR: Heart is regular. Murmur is auscultated. RESPIRATORY: Lungs are clear anteriorly, with decreased breath sounds at the bases. GASTROINTESTINAL: Abdomen is nondistended. EXTREMITIES: There is no lower extremity edema. SKIN: Without rash. LABORATORY STUDIES: CBC: Today, white blood cell count 16.4, hemoglobin 9.4, platelets 101. Chemistry panel: Sodium 131, potassium 4.2, chloride 102, CO2 of 21, BUN 41, creatinine 2.1, glucose 115. UA yesterday greater than 30 WBCs, large leukocyte esterase, and 4+ bacteria. Blood and urine cultures are growing gram negative rods, which are pending. IMAGING: She had a CT of the chest on the 2nd which was unremarkable. IMPRESSION: 1. Gram negative septicemia, likely secondary to urinary tract infection. 2. Leukocytosis. 2. Fever. She will continue on empiric antibiotics pending additional culture data. Blood culture should be obtained. If she continues to have fever, I would suggest a CAT scan of the abdomen and pelvis. We will follow with you. Thank you for this consultation.
[2017-09-26] MEDS: HYDROCODONE/ACETAMIN 5/325MG TAB PO PRN ×2 (13:59→18:33)
--- NOTE | 2017-09-26 16:27 | DIAGNOSTIC IMAGING REPORT ---
CHEST ONE VIEW PORTABLE CLINICAL HISTORY: 62 years-old Female presenting with hypoxia. TECHNIQUE: Portable upright AP view of the chest was obtained. COMPARISON: 09/10/2016. FINDINGS: Atherosclerosis of the aortic arch. Cardiac silhouette enlarged. Mild prominence of pulmonary vasculature. No focal opacity. No large effusion or pneumothorax. Degenerative changes of the thoracic spine. Upper abdomen normal. IMPRESSION: 1. Cardiomegaly with mild volume overload. No other convincing evidence of acute cardiopulmonary disease. Electronically signed by: Kendrick Guerra M.D. 09/26/2017 4:26 PM Dictated Date/Time: 09/26/2017 4:25 PM
[2017-09-26] MEDS: hydrOXYzine HCL 25 MG TAB PO PRN (17:17)
[2017-09-26] MEDS: DOCUSATE SODIUM/SENNA 50/8.6MG TAB PO SCH (20:10)
--- NOTE | 2017-09-26 21:39 | Progress Note ---
Progress Note Date of Service Sep 26, 2017. Progress Note Per RN patient was difficult to arouse this afternoon Eventually awakened Pulse ox in the 80s% seen and examined at the bedside On 2 L of nasal cannula Comfortable, not in distress States she has some mild dyspnea, improving oxygen denies cough Very mild rales at the bases, no wheezing Normal rate regular rhythm Chest x-ray, mild congestion Assessment and plan Acute hypoxic respiratory failure possibly for pulmonary edema Has received IV fluid boluses and normal saline for hypotension and acute renal failure Blood pressure improved Hold IV fluids this evening Monitor creatinine Check nocturnal pulse oximetry to rule out nocturnal hypoxemia Acute renal failure Likely secondary to episode of hypotension, underlying UTI and bacteremia We will consult nephrology Paula Lutz MD
[2017-09-27] MEDS: HYDROCODONE/ACETAMIN 5/325MG TAB PO PRN (03:30)
[2017-09-27] MEDS: BuPROPion SR 100 MG TABCR PO SCH ×2 (06:14→14:43)
[2017-09-27 06:31] LABS: BASO % 0.1 %; BASO ABS # 0.01 K/uL (0-0.2); EOS % 0.1 %; EOS ABS # 0.02 K/uL (0-0.5); HEMATOCRIT 27.3 % (37-47); HEMOGLOBIN 8.7 g/dL (12.0-16.0); IG# 0.11 K/uL (0.00-0.02); LYMPH % 5.3 %; LYMPH ABS # 0.89 K/uL (1.2-3.4); MEAN CELL VOLUME 89.8 fL (80-100); MEAN CORPUSCULAR HEMOGLOBIN 28.6 pg (25-34); MEAN CORPUSCULAR HGB CONC 31.9 g/dl (32-36); MEAN PLATELET VOLUME 11.8 fL (7.4-10.4); MONO % 9.7 %; MONO ABS # 1.63 K/uL (0.11-0.59); NEUT % 84.1 %; NEUT ABS # 14.09 K/uL (1.4-6.5); PLATELET COUNT 102 K/uL (130-400); RED CELL DISTRIBUTION WIDTH CV 17.2 % (11.5-14.5); WHITE BLOOD COUNT 16.75 K/uL (4.8-10.8)
[2017-09-27 07:03] LABS: CALCIUM 6.6 mg/dl (8.5-10.1); CREATININE 2.59 mg/dl (0.60-1.20); POTASSIUM 4.8 mmol/L (3.5-5.1)
[2017-09-27 07:19] VITALS: BP 99/65; PULSE 100; TEMP 37.5; O2SAT 91
[2017-09-27 08:00] VITALS: O2SAT 91
[2017-09-27] MEDS: METOPROLOL SUCC 25MG EXT REL TAB PO SCH (08:00)
[2017-09-27] MEDS: NYSTATIN POWDER 15GM BTL EXT SCH ×2 (08:00→21:55)
[2017-09-27] MEDS: DICLOFENAC SOD 1% GEL 100 GM TUBE EXT SCH ×4 (08:35→21:55)
[2017-09-27] MEDS: FoLIC ACID TAB 400 MCG TAB PO SCH (08:35)
[2017-09-27] MEDS: CHOLECALCIFEROL 1000 INTER.UNIT TAB PO SCH (08:35)
[2017-09-27] MEDS: ATORVASTATIN 40 MG TAB PO SCH (08:35)
[2017-09-27] MEDS: DULOXETINE HCL 60 MG CAP PO SCH (08:36)
[2017-09-27] MEDS: ASCORBIC ACID 500 MG TAB PO SCH (08:37)
[2017-09-27] MEDS: FERROUS SULFATE 325 MG TAB PO SCH (08:37)
[2017-09-27] MEDS: PANTOprazole SOD 40 MG TAB PO SCH (08:38)
[2017-09-27] MEDS: ASPIRIN 81 MG ECTAB PO SCH (08:38)
[2017-09-27] MEDS: LORATADINE 10 MG TAB PO SCH (08:38)
[2017-09-27] MEDS: POLYETHYLENE (MIRALAX) 17 GM PACK PO SCH ×3 (08:39→20:00)
[2017-09-27] MEDS ORDERED: IMIPENEM/CILASTATIN IV 500 MG in D5W 100ML IV STA (08:41)
--- NOTE | 2017-09-27 08:53 | Nephrology Consultation ---
Nephrology Consultation Date of Consultation: Sep 27, 2017. Requesting Physician: Boston Lutz MD Reason for Consultation: EDYTA History of Present Illness Patient is a 62 year old female with history of hypertension, obesity, chronic low back pain and episodes of acute kidney injury who was admitted about a week ago with back pain. She was subsequently found to have UTI and gram-negative bacteremia. She is being treated with Rocephin. On admission she had a creatinine of 1.2 and this even went down to 1 on 19 September. However her creatinine started to slowly rise to 1.2 on 21 September, 1.9 on the and 2.59 today. We have been asked to evaluate her for the etiology and management of AK I. Patient was hypotensive intermittently especially on the and 26 September. Blood pressure was as low as 83/51. She does report occasional shortness of breath requiring oxygen intermittently. She remains lethargic and able to ambulate. 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 Status: Chronic (2) Anxiety Disorder, Unspecified Status: Chronic (3) Bullous Pemphigoid Status: Chronic (4) Chronic Kidney Disease, Unspecified Status: Chronic (5) Depression Status: Chronic (6) Depressive Disorder Nec Status: Chronic (7) Drug-seeking behavior Status: Acute (8) Dyslipidemia Status: Chronic (9) Exacerbation of chronic back pain Status: Acute (10) HTN (hypertension) Status: Chronic (11) Obesity Status: Chronic (12) Osteoarthritis Status: Chronic (13) Osteoporosis Status: Chronic (14) Right flank pain Status: Acute (15) Right lumbar radiculopathy Status: Acute (16) Valvular heart disease Status: Chronic Family History Blood clots Diabetes mellitus FH: CHF (congestive heart failure) FH: CVA (cerebrovascular accident) Social History Smoking Status: Never Smoker Alcohol Use: none Drug Use: none Marital Status: single Housing Status: lives with family Occupation Status: unemployed Allergies Coded Allergies: Egg (Verified Allergy, Unknown, GI SYMPTOMS, 09/18/17) Ibuprofen (Verified Adverse Reaction, Mild, stomach irritation, 09/18/17) Medications Current Inpatient Medications Medications (Trade) Dose Ordered Sig/Sukhdeep Route Start Time Stop Time Status Last Admin Dose Admin Acetaminophen (Tylenol Tab) 650 mg Q4H PRN PO 09/18/17 04:00 10/18/17 03:59 09/25/17 08:09 650 MG Al Hydrox/Mg Hydrox/Simethicone (Maalox Max Susp) 15 ml Q4H PRN PO 09/18/17 04:00 10/18/17 03:59 Polyethylene (Miralax Powder Packet) 17 gm DAILY PRN PO 09/18/17 04:00 10/18/17 03:59 09/19/17 13:37 17 GM Ondansetron HCl (Zofran Inj) 4 mg Q6H PRN IV 09/18/17 04:00 10/18/17 03:59 09/26/17 11:31 4 MG Aspirin (Ecotrin Tab) 81 mg DAILY PO 09/18/17 08:00 10/18/17 08:59 09/26/17 08:14 81 MG Atorvastatin Calcium (Lipitor Tab) 80 mg DAILY PO 09/18/17 08:00 10/18/17 08:59 09/26/17 08:13 80 MG Cyclobenzaprine HCl (Flexeril Tab) 10 mg TID PRN PO 09/18/17 04:00 10/18/17 03:59 09/26/17 08:13 10 MG Diclofenac Sodium (Voltaren 1% Top Gel) 1 appln QID EXT 09/18/17 08:00 10/18/17 08:59 09/26/17 20:09 1 APPLN Fluocinonide (Lidex Oint) 1 appln BID PRN EXT 09/18/17 04:00 10/18/17 03:59 Acetaminophen/ Hydrocodone Bitart ([place] 5/325 Tab) 1 tab BID PRN PO 09/18/17 04:00 10/02/17 03:59 09/27/17 03:30 1 TAB Loratadine (Claritin Tab) 10 mg DAILY PO 09/18/17 08:00 10/18/17 08:59 09/26/17 08:11 10 MG Metoprolol Succinate (Toprol Xl Tab) 25 mg DAILY PO 09/18/17 08:00 10/18/17 08:59 09/26/17 08:11 25 MG Nitroglycerin (Nitrostat Tab) 0.4 mg PRN UT 09/18/17 04:00 10/18/17 03:59 09/21/17 08:34 0.4 MG Nystatin (Mycostatin Powder) 1 appln BID EXT 09/18/17 08:00 10/18/17 08:59 09/26/17 20:09 1 APPLN Triamcinolone Acetonide (Kenalog 0.1% Cream) 1 appln BID PRN EXT 09/18/17 04:00 10/18/17 03:59 Ascorbic Acid (Vitamin C Tab) 250 mg DAILY PO 09/18/17 08:00 10/18/17 08:59 09/26/17 08:13 250 MG Cholecalciferol (Vitamin D Tab) 2,000 inter.unit DAILY PO 09/18/17 08:00 10/18/17 08:59 09/26/17 08:12 2,000 INTER.UNIT Ferrous Sulfate (Feosol Tab) 325 mg DAILY PO 09/18/17 08:00 10/18/17 08:59 09/26/17 08:14 325 MG Folic Acid (Folvite Tab) 800 mcg DAILY PO 09/18/17 08:00 10/18/17 08:59 09/26/17 08:12 800 MCG Pantoprazole Sodium (Protonix Tab) 40 mg DAILY PO 09/18/17 08:00 10/18/17 08:59 09/26/17 08:11 40 MG Miscellaneous (Iv Fluids Completed) 1 ea PRN PRN N/A 09/18/17 04:45 09/18/18 04:44 Miconazole Nitrate (Desenex Powder) 1 appln PRN PRN EXT 09/18/17 09:00 10/18/17 08:59 09/24/17 08:41 1 APPLN Senna/Docusate Sodium (Senokot S Tab) 2 tab HS PO 09/19/17 21:00 10/19/17 20:59 09/26/17 20:10 2 TAB Polyethylene (Miralax Powder Packet) 17 gm TID PO 09/20/17 20:00 10/20/17 19:59 09/26/17 20:10 17 GM Duloxetine HCl (Cymbalta Cap) 60 mg QAM PO 09/22/17 08:00 10/22/17 07:59 09/26/17 08:12 60 MG Bupropion HCl (Wellbutrin-Sr Tab) 200 mg [id number] PO 09/24/17 07:00 10/18/17 08:59 09/27/17 06:14 200 MG Hydroxyzine HCl (Vistaril Tab) 50 mg HS PRN PO 09/24/17 07:15 10/24/17 07:14 09/26/17 17:17 50 MG Hydroxyzine HCl (Vistaril Tab) 25 mg Q4 PRN PO 09/24/17 10:45 10/24/17 10:44 Sodium Chloride 1,000 ml @ 75 mls/hr [id number] IV 09/27/17 07:45 10/27/17 07:44 Miscellaneous Information (Pharmacy Consult) 1 ea NOW STAT N/A 09/27/17 08:29 09/27/17 08:30 UNV Home Meds and Scripts Medications Dose Route/Sig Max Daily Dose Days Date Category Dose Instructions [place] 5MG/325MG (Acetaminophen/Hydrocodone Bitart) Tab 1 Tablet PO BID PRN 09/20/17 Reported Medrol Dosepak (Methylprednisolone) 4 Mg Alejandro 0 PO DAILY 09/20/17 Rx E 1000 (Vitamin E) 1,000 Unit Cap 2,000 Units PO QPM 09/09/17 Reported Prolia (Denosumab) 60 Mg/Ml Genet 1 Dose INJ UD 09/09/17 Reported Niacin Unknown Strength Tab 1 Tab PO QPM 09/09/17 Reported Dicyclomine Hcl 20 Mg Tab 20 Mg PO QID 09/09/17 Reported Colace (Docusate Sodium) 100 Mg Cap 2 Cap PO HS 30 09/09/17 Reported Lotrisone (Clotrimazole W/ Betamethasone) 1 Cre Cre 1 Appln TOP AMPM PRN 5 09/09/17 Reported Aspirin Ec (Aspirin) 81 Mg Tab 81 Mg PO DAILY 09/09/17 Reported Flexeril (Cyclobenzaprine Hcl) 10 Mg Tab 10 Mg PO PRN UD 09/09/17 Reported Nystop (Nystatin) 45 Appln/15 Gm Powd 1 Appln PO BID 09/09/17 Reported Lipitor (Atorvastatin Calcium) 80 Mg Tab 80 Mg PO DAILY 09/09/17 Reported Lidex 0.05% Oint (Fluocinonide) 180 Appln/60 Gm Oint 1 Appln TOP BID PRN 09/09/17 Reported Claritin (Loratadine) 10 Mg Tab 10 Mg PO DAILY 09/09/17 Reported Vitamin C (Ascorbic Acid) 250 Mg Chw 250 Mg PO DAILY 09/09/17 Reported Folic Acid 800 Mcg Tab 800 Mcg PO DAILY 09/09/17 Reported Iron (Ferrous Sulfate) 325 Mg Tab 325 Mg PO DAILY 09/09/17 Reported Metoprolol Succinate ER (Metoprolol Succinate) 25 Mg Tabcr 25 Mg PO DAILY 09/09/17 Reported Amlodipine Besylate 5 Mg Tab 5 Mg PO DAILY 09/09/17 Reported Prilosec (Omeprazole) 40 Mg Cap 40 Mg PO DAILY 09/09/17 Reported Cellcept (Mycophenolate Mofetil) 500 Mg Tab 1,000 Mg PO BIDM 09/09/17 Reported Voltaren 1% Top Gel (Diclofenac Sodium (Topical)) 1 % Gel 1 Appln TOP QID 09/09/17 Reported Lisinopril 10 Mg Tab 10 Mg PO DAILY 04/26/17 Reported Vibramycin (Doxycycline Hyclate) 100 Mg Cap 100 Mg PO BID 11/13/16 Reported One with breakfast and 1 with lunch Nitrostat (Nitroglycerin) 0.4 Mg Tab 0.4 Mg UT PRN 11/13/16 Reported Cymbalta (Duloxetine HCl) 30 Mg Cap 30 Mg PO DAILY 06/07/16 Reported Aristocort 0.1% (Triamcinolone Acet) 240 Appln/80 Gm Cr 1 Appln TOP BID PRN 05/02/16 Reported APPLY TO ARMS AND LEGS DIRECTED Wellbutrin Sr (Bupropion Hcl) 200 Mg Tabcr 200 Mg PO BID 05/02/16 Reported Vitamin D3 (Cholecalciferol) 2,000 Unit Cap 2,000 Inter.unit PO DAILY 05/02/16 Reported Vitamin B-12 (Cyanocobalamin) 1,000 Mcg Tab 1,000 Mcg PO DAILY 12/21/13 Reported Review of Systems Constitutional: No fever, No chills Eyes: No problem reported ENT: No unusual epistaxis, No nasal symptoms Respiratory: No cough, No sputum Cardiac: No chest pain, No orthopnea Abdomen: No pain, No nausea, No vomiting, No diarrhea Female : + incontinence, No dysuria Skin: + new/changing skin lesions (Bruises on the abdomen) Physical Exam Date Time Temp Pulse Resp B/P (MAP) Pulse Ox O2 Delivery O2 Flow Rate FiO2 09/27/17 07:19 37.5 100 24 99/65 (76) 91 Room Air 09/26/17 23:39 37.5 90 18 106/66 (79) 90 Room Air 09/26/17 20:00 Room Air 09/26/17 15:04 36.7 110 20 98/63 (75) 97 Nasal Cannula 1.0 09/26/17 14:08 36.8 110 18 108/68 (81) 87 Room Air General Appearance: no apparent distress Eyes: normal inspection ENT: normal ENT inspection, hearing grossly normal Neck: supple, no adenopathy, no JVD Respiratory/Chest: chest non-tender, + decreased breath sounds, + wheezing Cardiovascular: regular rate, rhythm, + systolic murmur (At the apex) Abdomen: normal bowel sounds, non tender, soft Extremities: non-tender, normal inspection, no pedal edema Neurologic/Psych: alert, normal mood/affect, oriented x 3 Skin: no jaundice, warm/dry Diagnostics Last 24 Hours Test 09/26/17 09:31 09/26/17 15:51 09/26/17 16:03 09/27/17 06:07 White Blood Count 16.47 K/uL 16.75 K/uL Red Blood Count 3.24 M/uL 3.04 M/uL Hemoglobin 9.4 g/dL 8.7 g/dL Hematocrit 29.2 % 27.3 % Mean Corpuscular Volume 90.1 fL 89.8 fL Mean Corpuscular Hemoglobin 29.0 pg 28.6 pg Mean Corpuscular Hemoglobin Concent 32.2 g/dl 31.9 g/dl Platelet Count 101 K/uL 102 K/uL Mean Platelet Volume 10.8 fL 11.8 fL Neutrophils (%) (Auto) 90.4 % 84.1 % Lymphocytes (%) (Auto) 4.5 % 5.3 % Monocytes (%) (Auto) 4.3 % 9.7 % Eosinophils (%) (Auto) 0.2 % 0.1 % Basophils (%) (Auto) 0.1 % 0.1 % Neutrophils # (Auto) 14.90 K/uL 14.09 K/uL Lymphocytes # (Auto) 0.74 K/uL 0.89 K/uL Monocytes # (Auto) 0.70 K/uL 1.63 K/uL Eosinophils # (Auto) 0.04 K/uL 0.02 K/uL Basophils # (Auto) 0.01 K/uL 0.01 K/uL RDW Standard Deviation 55.2 fL 57.0 fL RDW Coefficient of Variation 16.6 % 17.2 % Immature Granulocyte % (Auto) 0.5 % 0.7 % Immature Granulocyte # (Auto) 0.08 K/uL 0.11 K/uL Sodium Level 131 mmol/L 129 mmol/L Potassium Level 4.2 mmol/L 4.8 mmol/L Chloride Level 102 mmol/L 101 mmol/L Carbon Dioxide Level 21 mmol/L 20 mmol/L Anion Gap 8.0 mmol/L 8.0 mmol/L Blood Urea Nitrogen 41 mg/dl 45 mg/dl Creatinine 2.10 mg/dl 2.59 mg/dl Est Creatinine Clear Calc Drug Dose 40.1 ml/min 32.5 ml/min Estimated GFR () 28.9 22.4 Estimated GFR (Non- 25.0 19.4 BUN/Creatinine Ratio 19.5 17.2 Random Glucose 115 mg/dl 88 mg/dl Calcium Level 6.7 mg/dl 6.6 mg/dl Heparin-PF4 Antibody Screen NEG Arterial Blood pH 7.42 Arterial Blood Partial Pressure CO2 30 mmHg Arterial Blood Partial Pressure O2 65 mm/Hg Arterial Blood HCO3 19 mmol/L Arterial Blood Oxygen Saturation 90.8 % Arterial Blood Base Excess -4.6 mEq/L Arterial Blood Gas Delivery 1L O2 Joel Test POS Dohle Bodies 1+ Test 09/27/17 08:36 Assessment & Plan This is a 62-year-old female with the history of hypertension, obesity valvular heart disease and prior episodes of acute kidney injury was admitted with gram- negative bacteremia now being evaluated for worsening renal function. 1. Acute kidney injury: Patient with admission creatinine of 1.2 but creatinine rising to 2.59 today. This is likely in setting of ischemic ATN due to sepsis. Patient has been intermittently hypotensive. She could have AIN in setting of infection and antibiotics although this would be difficult to diagnose in setting of active infection. Obstructive uropathy is always on the differential. Management of ATN is supportive. Recommend renal ultrasound for morphology. Send a urine sodium, creatinine. Monitor renal function with daily BMP and renally dose medications for current GFR. Avoid nephrotoxins such as contrast and NSAIDs 2. Hypertension: Blood pressure is well controlled. Avoid hypotension to increase chances of renal recovery. 3. Metabolic acidosis: She does have a mild metabolic acidosis in setting of acute kidney injury. Monitor daily no need for bicarbonate infusion at the moment 4. Hyponatremia: She does have mild hyponatremia. Recommend checking a urine osmolality and serum osmolality. Thank you for involving us in the care of this patient
--- NOTE | 2017-09-27 08:53 | Progress Note ---
Medicine Progress Note Date & Time of Visit: Sep 27, 2017 at 08:47. Subjective resting in bed, comfortable except when moving denies dyspnea, reports mild wheezing intermittently no cough no abdominal pain ,nausea, (+) dysuria no chills appetite is good still has significant back pain when moving no other symptoms Objective Last 8 Hrs Date Time Temp Pulse Resp B/P (MAP) Pulse Ox O2 Delivery O2 Flow Rate FiO2 09/27/17 07:19 37.5 100 24 99/65 (76) 91 Room Air Physical Exam: General- oriented x 3, not in distress, speaks in sentences with no effort Head- atraumatic Eyes-anicteric ENT- dry oral mucosa Neck- no JVD Lungs- clear breath sounds bilaterally no wheezing no crackles Heart- regular rhythm; no murmur, normal rate Abdomen- normal bowel sounds, soft, nontender (+) drying wounds on the groin area, b/l Extremities- no pretibial edema, no calf tenderness Neuro- alert, oriented x 3; no gross focal deficits Skin- warm & dry Laboratory Results: Last 24 Hours Test 09/26/17 09:31 09/26/17 15:51 09/26/17 16:03 09/27/17 06:07 White Blood Count 16.47 K/uL 16.75 K/uL Red Blood Count 3.24 M/uL 3.04 M/uL Hemoglobin 9.4 g/dL 8.7 g/dL Hematocrit 29.2 % 27.3 % Mean Corpuscular Volume 90.1 fL 89.8 fL Mean Corpuscular Hemoglobin 29.0 pg 28.6 pg Mean Corpuscular Hemoglobin Concent 32.2 g/dl 31.9 g/dl Platelet Count 101 K/uL 102 K/uL Mean Platelet Volume 10.8 fL 11.8 fL Neutrophils (%) (Auto) 90.4 % 84.1 % Lymphocytes (%) (Auto) 4.5 % 5.3 % Monocytes (%) (Auto) 4.3 % 9.7 % Eosinophils (%) (Auto) 0.2 % 0.1 % Basophils (%) (Auto) 0.1 % 0.1 % Neutrophils # (Auto) 14.90 K/uL 14.09 K/uL Lymphocytes # (Auto) 0.74 K/uL 0.89 K/uL Monocytes # (Auto) 0.70 K/uL 1.63 K/uL Eosinophils # (Auto) 0.04 K/uL 0.02 K/uL Basophils # (Auto) 0.01 K/uL 0.01 K/uL RDW Standard Deviation 55.2 fL 57.0 fL RDW Coefficient of Variation 16.6 % 17.2 % Immature Granulocyte % (Auto) 0.5 % 0.7 % Immature Granulocyte # (Auto) 0.08 K/uL 0.11 K/uL Sodium Level 131 mmol/L 129 mmol/L Potassium Level 4.2 mmol/L 4.8 mmol/L Chloride Level 102 mmol/L 101 mmol/L Carbon Dioxide Level 21 mmol/L 20 mmol/L Anion Gap 8.0 mmol/L 8.0 mmol/L Blood Urea Nitrogen 41 mg/dl 45 mg/dl Creatinine 2.10 mg/dl 2.59 mg/dl Est Creatinine Clear Calc Drug Dose 40.1 ml/min 32.5 ml/min Estimated GFR () 28.9 22.4 Estimated GFR (Non- 25.0 19.4 BUN/Creatinine Ratio 19.5 17.2 Random Glucose 115 mg/dl 88 mg/dl Calcium Level 6.7 mg/dl 6.6 mg/dl Heparin-PF4 Antibody Screen NEG Arterial Blood pH 7.42 Arterial Blood Partial Pressure CO2 30 mmHg Arterial Blood Partial Pressure O2 65 mm/Hg Arterial Blood HCO3 19 mmol/L Arterial Blood Oxygen Saturation 90.8 % Arterial Blood Base Excess -4.6 mEq/L Arterial Blood Gas Delivery 1L O2 Joel Test POS Dohle Bodies 1+ Test 09/27/17 08:36 Date/Time Source Procedure Growth Status 09/26/17 13:16 Blood Blood Culture - Preliminary Gram Negative Bacilli Resulted 09/26/17 13:05 Blood Blood Culture - Preliminary Gram Negative Bacilli Resulted Assessment & Plan BACK PAIN, SPINAL STENOSIS, L5-S 1 BULGING DISC MRI lumbar spine demonstrated spinal stenosis and bulging disc L5-S1. Ortho consult with Dr. Nesbitt; conservative management recommended. Pain Management consulted and will see patient in clinic for follow-up. Received Medrol taper. Continue [place] PRN added Gabapentin 300mg BID--> discontinued due to drowsiness back pain not improving - will re-consult Pain Management SVC E COLI ESBL, UTI AND BACTEREMIA 09/25/17: (+) fever of 39, hypotension urine culture: E COLI ESBL blood cultures: : E COLI ESBL repeat blood cultures: gram negative bacilli has history of enterococcus UTI in 2015, resistant to ampicillin, sens to vanco change Ceftri to Imipenem hold Cellcept (day 3) may need to re-image spine to r/o discitis? ID consulted, appreciate the recommendations HYPOTENSION likely from dehydration IV NSS at 75cc hold Amlodipine ACUTE RENAL FAILURE likely pre renal etiology crea 1.9--> 2.5 IV NSS as above d/c Lisinopril - Nephrology consulted will obtain Renal US ANEMIA, THROMBOCYTOPENIA likely from Infection HIT Ab negative monitor HYPERTENSION BP on the lower side hold lisinopril, amlodipine continue Metoprolol GERD Continue PPI. BULLOUS PEMPHIGOID BILATERAL GROIN WOUNDS HOLD mycophenolate mofetil in light of fever, underlying infection (day 2) on denosumab will discuss with Derm Wound care consulted MORBID OBESITY Wt 134 kg, BMI 47.7. AHA diet. CONSTIPATION Bowel regimen as ordered. DEPRESSION Psych consulted. Arrangements made for outpatient follow-up. Very anxious / depressed / chronic back pain. Increased duloxetine to 60 mg daily. CHEST PAIN 8/ Atypical chest pain. EKG showed NSR, no acute changes. D-dimer elevated, but CTA of chest negative for PE and venous duplex of lower extremities negative for DVT. VTE PROPHYLAXIS SQ heparin. Ambulate. DISPOSITION management of infection as noted above Unable to perform ADLs independently or comfortably. Will probably need skilled care. Case Management consulted. Family Medicine follow-up with Dr. Marcus Talavera. . Current Inpatient Medications: Current Inpatient Medications Medications (Trade) Dose Ordered Sig/Sukhdeep Route Start Time Stop Time Status Last Admin Dose Admin Acetaminophen (Tylenol Tab) 650 mg Q4H PRN PO 09/18/17 04:00 10/18/17 03:59 09/25/17 08:09 650 MG Al Hydrox/Mg Hydrox/Simethicone (Maalox Max Susp) 15 ml Q4H PRN PO 09/18/17 04:00 10/18/17 03:59 Polyethylene (Miralax Powder Packet) 17 gm DAILY PRN PO 09/18/17 04:00 10/18/17 03:59 09/19/17 13:37 17 GM Ondansetron HCl (Zofran Inj) 4 mg Q6H PRN IV 09/18/17 04:00 10/18/17 03:59 8/7/18 11:31 4 MG Aspirin (Ecotrin Tab) 81 mg DAILY PO 09/18/17 08:00 10/18/17 08:59 09/26/17 08:14 81 MG Atorvastatin Calcium (Lipitor Tab) 80 mg DAILY PO 09/18/17 08:00 10/18/17 08:59 09/26/17 08:13 80 MG Cyclobenzaprine HCl (Flexeril Tab) 10 mg TID PRN PO 09/18/17 04:00 10/18/17 03:59 09/26/17 08:13 10 MG Diclofenac Sodium (Voltaren 1% Top Gel) 1 appln QID EXT 09/18/17 08:00 10/18/17 08:59 09/26/17 20:09 1 APPLN Fluocinonide (Lidex Oint) 1 appln BID PRN EXT 09/18/17 04:00 10/18/17 03:59 Acetaminophen/ Hydrocodone Bitart ([place] 5/325 Tab) 1 tab BID PRN PO 09/18/17 04:00 10/02/17 03:59 09/27/17 03:30 1 TAB Loratadine (Claritin Tab) 10 mg DAILY PO 09/18/17 08:00 10/18/17 08:59 09/26/17 08:11 10 MG Metoprolol Succinate (Toprol Xl Tab) 25 mg DAILY PO 09/18/17 08:00 10/18/17 08:59 09/26/17 08:11 25 MG Nitroglycerin (Nitrostat Tab) 0.4 mg PRN UT 09/18/17 04:00 10/18/17 03:59 09/21/17 08:34 0.4 MG Nystatin (Mycostatin Powder) 1 appln BID EXT 09/18/17 08:00 10/18/17 08:59 09/26/17 20:09 1 APPLN Triamcinolone Acetonide (Kenalog 0.1% Cream) 1 appln BID PRN EXT 09/18/17 04:00 10/18/17 03:59 Ascorbic Acid (Vitamin C Tab) 250 mg DAILY PO 09/18/17 08:00 10/18/17 08:59 09/26/17 08:13 250 MG Cholecalciferol (Vitamin D Tab) 2,000 inter.unit DAILY PO 09/18/17 08:00 10/18/17 08:59 09/26/17 08:12 2,000 INTER.UNIT Ferrous Sulfate (Feosol Tab) 325 mg DAILY PO 09/18/17 08:00 10/18/17 08:59 09/26/17 08:14 325 MG Folic Acid (Folvite Tab) 800 mcg DAILY PO 09/18/17 08:00 10/18/17 08:59 09/26/17 08:12 800 MCG Pantoprazole Sodium (Protonix Tab) 40 mg DAILY PO 09/18/17 08:00 10/18/17 08:59 09/26/17 08:11 40 MG Miscellaneous (Iv Fluids Completed) 1 ea PRN PRN N/A 09/18/17 04:45 09/18/18 04:44 Miconazole Nitrate (Desenex Powder) 1 appln PRN PRN EXT 09/18/17 09:00 10/18/17 08:59 09/24/17 08:41 1 APPLN Senna/Docusate Sodium (Senokot S Tab) 2 tab HS PO 09/19/17 21:00 10/19/17 20:59 09/26/17 20:10 2 TAB Polyethylene (Miralax Powder Packet) 17 gm TID PO 09/20/17 20:00 10/20/17 19:59 09/26/17 20:10 17 GM Duloxetine HCl (Cymbalta Cap) 60 mg QAM PO 09/22/17 08:00 10/22/17 07:59 09/26/17 08:12 60 MG Bupropion HCl (Wellbutrin-Sr Tab) 200 mg [id number] PO 09/24/17 07:00 10/18/17 08:59 09/27/17 06:14 200 MG Hydroxyzine HCl (Vistaril Tab) 50 mg HS PRN PO 09/24/17 07:15 10/24/17 07:14 09/26/17 17:17 50 MG Hydroxyzine HCl (Vistaril Tab) 25 mg Q4 PRN PO 09/24/17 10:45 10/24/17 10:44 Sodium Chloride 1,000 ml @ 75 mls/hr [id number] IV 09/27/17 07:45 10/27/17 07:44 Miscellaneous Information (Pharmacy Consult) 1 ea NOW STAT N/A 09/27/17 08:29 09/27/17 08:30 UNV Imipenem/ Cilastatin Sodium 500 mg/Dextrose 110 ml @ 110 mls/hr NOW STAT IV 09/27/17 08:41 09/27/17 09:40
[2017-09-27] MEDS ORDERED: ERTAPENEM CONSULT ACTIVE PRN (09:15)
[2017-09-27] MEDS: SODIUM CHLORIDE 0.9% 1000ML 1,000 ML IV SCH ×2 (09:17→21:57)
--- NOTE | 2017-09-27 09:44 | Pain Management Progress Note ---
Pain Management Progress Note Date of Service Sep 27, 2017. Subjective This is a 62 year old white female with sacroiliitis, myofascial pain, and morbid obesity. She states that her pain is predominantly located in the right low back with radicular pain in the right leg. She describes an aching and spasming sensation. There is a sharp stabbing pain in the low back with positional changes. She is able to get out of bed with assistance and get to the chair. She is unable to ambulate to the bathroom at this point. Patient is planning on discharge to [facility] for rehab. Patient does also plan on a TKA in timeframe. She did experience drowsiness yesterday and was difficulty to wake up. No constitutional complaints. Case discussed with Dr. Kaci Emmanuel Objective Vital Signs: Last Vital Signs Documentation Date Time Temp Pulse Resp B/P (MAP) Pulse Ox O2 Delivery O2 Flow Rate FiO2 09/27/17 07:19 37.5 100 24 99/65 (76) 91 Room Air 09/26/17 15:04 1.0 Physical Exam: GENERAL: This is a 62 y/o white female that is morbidly obese. Speech and cognition is intact. Mood and affect is appropriate. Appears in pain with positional changes. BACK: There is no midline tenderness. There is focal right SI joint tenderness and superior gluteal spasm and tenderness. There are no palpable trigger points noted. NEURO: Awake, alert, and oriented x 3. Laboratory Laboratory Findings 09/27/17 06:07 Red Blood Count 3.04 L, Mean Corpuscular Volume 89.8, Mean Corpuscular Hemoglobin 28.6, Mean Corpuscular Hemoglobin Concent 31.9 L, Mean Platelet Volume 11.8 H, Neutrophils (%) (Auto) 84.1, Lymphocytes (%) (Auto) 5.3, Monocytes (%) (Auto) 9.7, Eosinophils (%) (Auto) 0.1, Basophils (%) (Auto) 0.1, Neutrophils # (Auto) 14.09 H, Lymphocytes # (Auto) 0.89 L, Monocytes # (Auto) 1.63 H, Eosinophils # (Auto) 0.02, Basophils # (Auto) 0.01 Assessment 1. Chronic lumbago 2. Sacroiliitis 3. Myofascial pain 4. Morbid obesity 5. Right knee pain with pending TKA Recommendations 1. Flexeril was discontinued and Baclofen was initiated for possible increased relief. 2. Gabapentin 300mg BID caused drowsiness yesterday. Will decrease to 100mg PO BID to see if it can be tolerated. 3. Continue [place] BID and Voltaren gel. 4. I have encouraged the patient to ambulate and work on getting out of the bed. 5. Cannot perform injection at this time due to current bacteremia and pending knee replacement.
[2017-09-27] MEDS: GABAPENTIN 100 MG CAP PO SCH ×2 (10:46→21:56)
[2017-09-27] MEDS: BACLOFEN 10 MG TAB PO SCH ×2 (13:31→21:56)
[2017-09-27] MEDS: HEPARIN SOD 5000 UNIT/0.5 ML CARP SQ SCH ×2 (13:46→22:00)
--- NOTE | 2017-09-27 14:43 | Progress Note ---
Subjective Date of Service: Sep 27, 2017. Subjective Pt evaluation today including: conversation w/ patient, physical exam, chart review, lab review pt more awake today, states + abd pain no f/c, changed to ertapenem this am due to resistant E. coli. repeat cultures + as well. wbc remains elevated. tolerating abx. no cp. no back pain on my exam. nephro following for increased creat. all remaining ros reviewed and are negative. 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 (2) Anxiety Disorder, Unspecified Status: Chronic (3) Bullous Pemphigoid Status: Chronic (4) Chronic Kidney Disease, Unspecified Status: Chronic (5) Depression Status: Chronic (6) Depressive Disorder Nec Status: Chronic (7) Drug-seeking behavior Status: Acute (8) Dyslipidemia Status: Chronic (9) Exacerbation of chronic back pain Status: Acute (10) HTN (hypertension) Status: Chronic (11) Obesity Status: Chronic (12) Osteoarthritis Status: Chronic (13) Osteoporosis Status: Chronic (14) Right flank pain Status: Acute (15) Right lumbar radiculopathy Status: Acute (16) Valvular heart disease Status: Chronic Objective Vital Signs Date Time Temp Pulse Resp B/P (MAP) Pulse Ox O2 Delivery O2 Flow Rate FiO2 09/27/17 08:00 91 Room Air 09/27/17 07:19 37.5 100 24 99/65 (76) 91 Room Air 09/26/17 23:39 37.5 90 18 106/66 (79) 90 Room Air 09/26/17 20:00 Room Air 09/26/17 15:04 36.7 110 20 98/63 (75) 97 Nasal Cannula 1.0 Physical Exam General Appearance: WD/WN, no apparent distress Eyes: normal inspection, EOMI Neck: supple Respiratory/Chest: lungs clear, normal breath sounds, no respiratory distress, + decreased breath sounds Cardiovascular: regular rate, rhythm Abdomen: soft Extremities: non-tender, no pedal edema Neurologic/Psychiatric: alert Skin: normal color Laboratory Results Item Value Date Time Blood Culture - Final Complete 09/25/17 1113 Blood Escherichia Coli Esbl Blood Culture - Preliminary Resulted 09/25/17 1121 Blood Escherichia Coli Esbl Urine Culture - Final Complete 09/25/17 2000 Urine , Clean Catch Escherichia Coli Esbl Blood Culture - Preliminary Resulted 09/26/17 1305 Blood Gram Negative Bacilli Blood Culture - Preliminary Resulted 09/26/17 1316 Blood Gram Negative Bacilli Last 24 Hours Test 09/26/17 15:51 09/26/17 16:03 09/27/17 06:07 09/27/17 08:36 Heparin-PF4 Antibody Screen NEG Arterial Blood pH 7.42 Arterial Blood Partial Pressure CO2 30 mmHg Arterial Blood Partial Pressure O2 65 mm/Hg Arterial Blood HCO3 19 mmol/L Arterial Blood Oxygen Saturation 90.8 % Arterial Blood Base Excess -4.6 mEq/L Arterial Blood Gas Delivery 1L O2 Joel Test POS White Blood Count 16.75 K/uL Red Blood Count 3.04 M/uL Hemoglobin 8.7 g/dL Hematocrit 27.3 % Mean Corpuscular Volume 89.8 fL Mean Corpuscular Hemoglobin 28.6 pg Mean Corpuscular Hemoglobin Concent 31.9 g/dl Platelet Count 102 K/uL Mean Platelet Volume 11.8 fL Neutrophils (%) (Auto) 84.1 % Lymphocytes (%) (Auto) 5.3 % Monocytes (%) (Auto) 9.7 % Eosinophils (%) (Auto) 0.1 % Basophils (%) (Auto) 0.1 % Neutrophils # (Auto) 14.09 K/uL Lymphocytes # (Auto) 0.89 K/uL Monocytes # (Auto) 1.63 K/uL Eosinophils # (Auto) 0.02 K/uL Basophils # (Auto) 0.01 K/uL RDW Standard Deviation 57.0 fL RDW Coefficient of Variation 17.2 % Immature Granulocyte % (Auto) 0.7 % Immature Granulocyte # (Auto) 0.11 K/uL Dohle Bodies 1+ Sodium Level 129 mmol/L Potassium Level 4.8 mmol/L Chloride Level 101 mmol/L Carbon Dioxide Level 20 mmol/L Anion Gap 8.0 mmol/L Blood Urea Nitrogen 45 mg/dl Creatinine 2.59 mg/dl Est Creatinine Clear Calc Drug Dose 32.5 ml/min Estimated GFR () 22.4 Estimated GFR (Non- 19.4 BUN/Creatinine Ratio 17.2 Random Glucose 88 mg/dl Calcium Level 6.6 mg/dl Ionized Calcium 0.93 mmol/l Test 09/27/17 14:00 Assessment and Plan (1) E. coli septicemia Assessment & Plan: continue ertapenem, repeat culture. if remain + would suggest ct abd. will need min 14 days. will follow.
[2017-09-27 14:47] VITALS: BP 117/70; PULSE 98; TEMP 37.1; O2SAT 92
--- NOTE | 2017-09-27 14:48 | DIAGNOSTIC IMAGING REPORT ---
(ROLANDO/BLAD)RETROPERITON COMP CLINICAL HISTORY: 62 years-old Female presenting with acute renal failure, UTI. TECHNIQUE: Real-time grayscale and limited color Doppler ultrasound imaging of the kidneys and bladder was performed. COMPARISON: Ultrasound from 09/18/[address] from 01/26/2015. FINDINGS: Right kidney: Prominence of the interpolar renal parenchyma may represent a dromedary hump. This appearance is not dissimilar to prior ultrasound. The left kidney also has a similar appearance. Right kidney measures 10.9 cm. No hydronephrosis. No convincing evidence of calculus or mass. Left kidney: Normal echogenicity of renal parenchyma. Left kidney measures 11.6 cm. No hydronephrosis. No convincing evidence of calculus or mass. Bladder: The bladder is filled with heterogeneous hypoechoic avascular debris. Bladder incompletely distended. Bilateral ureteral jets not visualized. Other: None. IMPRESSION: 1. Avascular debris in the bladder could represent blood clot or infectious debris. Correlate with urinalysis. The absence of vascularity on color Doppler suggests against a neoplastic etiology though this may not exclude the process of the of cystoscopy. Consider urologic consultation. 2. No hydronephrosis. Electronically signed by: Kendrick Guerra M.D. 09/27/2017 2:47 PM Dictated Date/Time: 09/27/2017 2:44 PM
[2017-09-27 15:36] LABS: HEMATOCRIT 27.5 % (37-47); HEMOGLOBIN 8.8 g/dL (12.0-16.0)
[2017-09-27] MEDS: ERTAPENEM IV 1 GM in SODIUM CHLOR 0.9% AD-VAN 50ML IV SCH (16:39)
[2017-09-27] MEDS ORDERED: CALCIUM GLUCONATE 10% 10 ML VIAL IV SCH (17:15)
[2017-09-27] MEDS ORDERED: CALCIUM GLUCONATE 10% 2,000 MG in SODIUM CHLORIDE 0.9% 50ML 50 ML IV ONE (17:45)
[2017-09-27] MEDS: DOCUSATE SODIUM/SENNA 50/8.6MG TAB PO SCH (21:00)
[2017-09-27] MEDS: FLUOCINONIDE 0.05% OINT 15 GM TUBE EXT PRN (21:57)
[2017-09-27] MEDS: TRIAMCINOLONE ACET 0.1% CR 15 GM TUBE EXT SCH (22:23)
[2017-09-27 23:02] VITALS: BP 129/68; PULSE 97; TEMP 36.9; O2SAT 94
[2017-09-28] MEDS: BuPROPion SR 100 MG TABCR PO SCH ×2 (06:10→15:09)
[2017-09-28] MEDS: HEPARIN SOD 5000 UNIT/0.5 ML CARP SQ SCH ×3 (06:12→21:14)
[2017-09-28 06:53] VITALS: BP 135/77; PULSE 89; TEMP 36.4; O2SAT 92
[2017-09-28 07:23] LABS: HEMATOCRIT 28.9 % (37-47); HEMOGLOBIN 9.1 g/dL (12.0-16.0); MEAN CELL VOLUME 90.6 fL (80-100); MEAN CORPUSCULAR HEMOGLOBIN 28.5 pg (25-34); MEAN CORPUSCULAR HGB CONC 31.5 g/dl (32-36); MEAN PLATELET VOLUME 11.5 fL (7.4-10.4); PLATELET COUNT 117 K/uL (130-400); RED CELL DISTRIBUTION WIDTH CV 17.3 % (11.5-14.5); RED CELL DISTRIBUTION WIDTH SD 57.4 fL (36.4-46.3); WHITE BLOOD COUNT 18.65 K/uL (4.8-10.8)
[2017-09-28 07:47] LABS: BASO % 0.1 %; BASO ABS # 0.01 K/uL (0-0.2); EOS % 0.2 %; EOS ABS # 0.03 K/uL (0-0.5); LYMPH % 5.5 %; LYMPH ABS # 1.02 K/uL (1.2-3.4); MONO % 6.2 %; MONO ABS # 1.15 K/uL (0.11-0.59); NEUT % 86.9 %; NEUT ABS # 16.24 K/uL (1.4-6.5)
[2017-09-28 07:56] LABS: CALCIUM 7.3 mg/dl (8.5-10.1); CREATININE 2.49 mg/dl (0.60-1.20); POTASSIUM 4.9 mmol/L (3.5-5.1)
[2017-09-28] MEDS: POLYETHYLENE (MIRALAX) 17 GM PACK PO SCH ×3 (08:32→19:37)
[2017-09-28] MEDS: TRIAMCINOLONE ACET 0.1% CR 15 GM TUBE EXT SCH ×2 (08:33→19:38)
[2017-09-28] MEDS: NYSTATIN POWDER 15GM BTL EXT SCH ×2 (08:33→19:38)
[2017-09-28] MEDS: DICLOFENAC SOD 1% GEL 100 GM TUBE EXT SCH ×4 (08:34→19:38)
[2017-09-28] MEDS: LORATADINE 10 MG TAB PO SCH (08:34)
[2017-09-28] MEDS: DULOXETINE HCL 60 MG CAP PO SCH (08:34)
[2017-09-28] MEDS: FoLIC ACID TAB 400 MCG TAB PO SCH (08:35)
[2017-09-28] MEDS: FERROUS SULFATE 325 MG TAB PO SCH (08:35)
[2017-09-28] MEDS: ASPIRIN 81 MG ECTAB PO SCH (08:35)
[2017-09-28] MEDS: BACLOFEN 10 MG TAB PO SCH ×3 (08:35→19:39)
[2017-09-28] MEDS: PANTOprazole SOD 40 MG TAB PO SCH (08:36)
[2017-09-28] MEDS: ASCORBIC ACID 500 MG TAB PO SCH (08:36)
[2017-09-28] MEDS: METOPROLOL SUCC 25MG EXT REL TAB PO SCH (08:36)
[2017-09-28] MEDS: GABAPENTIN 100 MG CAP PO SCH ×2 (08:36→19:57)
[2017-09-28] MEDS: ATORVASTATIN 40 MG TAB PO SCH (08:36)
[2017-09-28] MEDS: CHOLECALCIFEROL 1000 INTER.UNIT TAB PO SCH (08:36)
[2017-09-28] MEDS: SODIUM CHLORIDE 0.9% 1000ML 1,000 ML IV SCH (11:07)
--- NOTE | 2017-09-28 12:39 | Progress Note ---
Medicine Progress Note Date & Time of Visit: Sep 28, 2017 at 12:39. Subjective seen resting in bed, comfortable denies dizziness, nausea, chills, abdominal pain still has low back pain worse with movement no other symptoms Objective Last 8 Hrs Date Time Temp Pulse Resp B/P (MAP) Pulse Ox O2 Delivery O2 Flow Rate FiO2 09/28/17 11:18 Room Air 09/28/17 06:53 36.4 89 18 135/77 (96) 92 Room Air Physical Exam: General- oriented x 3, not in distress, speaks in sentences with no effort Eyes- anicteric ENT- dry oral mucosa Neck- no JVD Lungs- clear BS bilaterally no wheezing no crackles Heart- regular rhythm; no murmur, normal rate Abdomen- normal bowel sounds, soft, nontender (+) drying wounds on the groin area, b/l: improving Extremities- no pretibial edema, no calf tenderness Neuro- alert, oriented x 3; no gross focal deficits Skin- warm & dry Laboratory Results: Last 24 Hours Test 09/27/17 15:24 09/28/17 06:58 Hemoglobin 8.8 g/dL 9.1 g/dL Hematocrit 27.5 % 28.9 % White Blood Count 18.65 K/uL Red Blood Count 3.19 M/uL Mean Corpuscular Volume 90.6 fL Mean Corpuscular Hemoglobin 28.5 pg Mean Corpuscular Hemoglobin Concent 31.5 g/dl Platelet Count 117 K/uL Mean Platelet Volume 11.5 fL Neutrophils (%) (Auto) 86.9 % Lymphocytes (%) (Auto) 5.5 % Monocytes (%) (Auto) 6.2 % Eosinophils (%) (Auto) 0.2 % Basophils (%) (Auto) 0.1 % Neutrophils # (Auto) 16.24 K/uL Lymphocytes # (Auto) 1.02 K/uL Monocytes # (Auto) 1.15 K/uL Eosinophils # (Auto) 0.03 K/uL Basophils # (Auto) 0.01 K/uL RDW Standard Deviation 57.4 fL RDW Coefficient of Variation 17.3 % Immature Granulocyte % (Auto) 1.1 % Immature Granulocyte # (Auto) 0.20 K/uL Red Blood Cell Morphology Unremarkable Sodium Level 133 mmol/L Potassium Level 4.9 mmol/L Chloride Level 104 mmol/L Carbon Dioxide Level 21 mmol/L Anion Gap 8.0 mmol/L Blood Urea Nitrogen 49 mg/dl Creatinine 2.49 mg/dl Est Creatinine Clear Calc Drug Dose 33.8 ml/min Estimated GFR () 23.5 Estimated GFR (Non- 20.3 BUN/Creatinine Ratio 19.5 Random Glucose 81 mg/dl Calcium Level 7.3 mg/dl Date/Time Source Procedure Growth Status 09/27/17 15:24 Blood Blood Culture Pending Received 09/27/17 15:18 Blood Blood Culture Pending Received Assessment & Plan BACK PAIN, SPINAL STENOSIS, L5-S 1 BULGING DISC MRI lumbar spine demonstrated spinal stenosis and bulging disc L5-S1. Ortho consult with Dr. Nesbitt; conservative management recommended. Pain Management consulted and will see patient in clinic for follow-up. Received Medrol taper. Continue [place] PRN added Gabapentin 300mg BID--> dose reduced to 100mg due to drowsiness Baclofen Added appreciate Pain Mgt recommendations E COLI ESBL, UTI AND BACTEREMIA 09/25/17: (+) fever of 39, hypotension urine culture: E COLI ESBL blood cultures: : E COLI ESBL repeat blood cultures: E COLI ESBL repeat blood cultures; Pending change Ceftri to Ertapenem hold Cellcept (day 4) ID consulted, appreciate the recommendations HYPOTENSION likely from dehydration IV NSS at 75cc hold Amlodipine ACUTE RENAL FAILURE likely pre renal etiology crea 1.9--> 2.5 IV NSS as above d/c Lisinopril - Nephrology consulted will obtain Renal US ANEMIA, THROMBOCYTOPENIA likely from Infection HIT Ab negative monitor HYPERTENSION BP on the lower side hold lisinopril, amlodipine continue Metoprolol GERD Continue PPI. BULLOUS PEMPHIGOID BILATERAL GROIN WOUNDS HOLD mycophenolate mofetil in light of fever, underlying infection (day 2) on denosumab as outpatient discussed with derm, agree with holding Cellcept continue Triamcinoline BID Wound care consulted MORBID OBESITY Wt 134 kg, BMI 47.7. AHA diet. CONSTIPATION Bowel regimen as ordered. DEPRESSION Psych consulted. Arrangements made for outpatient follow-up. Very anxious / depressed / chronic back pain. Increased duloxetine to 60 mg daily. CHEST PAIN 8/2 Atypical chest pain. EKG showed NSR, no acute changes. D-dimer elevated, but CTA of chest negative for PE and venous duplex of lower extremities negative for DVT. VTE PROPHYLAXIS SQ heparin. Ambulate. DISPOSITION management of infection as noted above Unable to perform ADLs independently or comfortably. Will probably need skilled care. Case Management consulted. Family Medicine follow-up with Dr. Marcus Talavera. . Current Inpatient Medications: Current Inpatient Medications Medications (Trade) Dose Ordered Sig/Sukhdeep Route Start Time Stop Time Status Last Admin Dose Admin Acetaminophen (Tylenol Tab) 650 mg Q4H PRN PO 09/18/17 04:00 10/18/17 03:59 09/25/17 08:09 650 MG Al Hydrox/Mg Hydrox/Simethicone (Maalox Max Susp) 15 ml Q4H PRN PO 09/18/17 04:00 10/18/17 03:59 Polyethylene (Miralax Powder Packet) 17 gm DAILY PRN PO 09/18/17 04:00 10/18/17 03:59 09/19/17 13:37 17 GM Ondansetron HCl (Zofran Inj) 4 mg Q6H PRN IV 09/18/17 04:00 10/18/17 03:59 09/26/17 11:31 4 MG Aspirin (Ecotrin Tab) 81 mg DAILY PO 09/18/17 08:00 10/18/17 08:59 09/28/17 08:35 81 MG Atorvastatin Calcium (Lipitor Tab) 80 mg DAILY PO 09/18/17 08:00 10/18/17 08:59 09/28/17 08:36 80 MG Diclofenac Sodium (Voltaren 1% Top Gel) 1 appln QID EXT 09/18/17 08:00 10/18/17 08:59 09/28/17 12:10 1 APPLN Fluocinonide (Lidex Oint) 1 appln BID PRN EXT 09/18/17 04:00 10/18/17 03:59 09/27/17 21:57 1 APPLN Acetaminophen/ Hydrocodone Bitart ([place] 5/325 Tab) 1 tab BID PRN PO 09/18/17 04:00 10/02/17 03:59 09/27/17 03:30 1 TAB Loratadine (Claritin Tab) 10 mg DAILY PO 09/18/17 08:00 10/18/17 08:59 09/28/17 08:34 10 MG Metoprolol Succinate (Toprol Xl Tab) 25 mg DAILY PO 09/18/17 08:00 10/18/17 08:59 09/28/17 08:36 25 MG Nitroglycerin (Nitrostat Tab) 0.4 mg PRN UT 09/18/17 04:00 10/18/17 03:59 09/21/17 08:34 0.4 MG Nystatin (Mycostatin Powder) 1 appln BID EXT 09/18/17 08:00 10/18/17 08:59 09/28/17 08:33 1 APPLN Ascorbic Acid (Vitamin C Tab) 250 mg DAILY PO 09/18/17 08:00 10/18/17 08:59 09/28/17 08:36 250 MG Cholecalciferol (Vitamin D Tab) 2,000 inter.unit DAILY PO 09/18/17 08:00 10/18/17 08:59 09/28/17 08:36 2,000 INTER.UNIT Ferrous Sulfate (Feosol Tab) 325 mg DAILY PO 09/18/17 08:00 10/18/17 08:59 09/28/17 08:35 325 MG Folic Acid (Folvite Tab) 800 mcg DAILY PO 09/18/17 08:00 10/18/17 08:59 09/28/17 08:35 800 MCG Pantoprazole Sodium (Protonix Tab) 40 mg DAILY PO 09/18/17 08:00 10/18/17 08:59 09/28/17 08:36 40 MG Miscellaneous (Iv Fluids Completed) 1 ea PRN PRN N/A 09/18/17 04:45 09/18/18 04:44 Miconazole Nitrate (Desenex Powder) 1 appln PRN PRN EXT 09/18/17 09:00 10/18/17 08:59 09/24/17 08:41 1 APPLN Senna/Docusate Sodium (Senokot S Tab) 2 tab HS PO 09/19/17 21:00 10/19/17 20:59 09/26/17 20:10 2 TAB Polyethylene (Miralax Powder Packet) 17 gm TID PO 09/20/17 20:00 10/20/17 19:59 09/28/17 08:32 17 GM Duloxetine HCl (Cymbalta Cap) 60 mg QAM PO 09/22/17 08:00 10/22/17 07:59 09/28/17 08:34 60 MG Bupropion HCl (Wellbutrin-Sr Tab) 200 mg [id number] PO 09/24/17 07:00 10/18/17 08:59 09/28/17 06:10 200 MG Hydroxyzine HCl (Vistaril Tab) 50 mg HS PRN PO 09/24/17 07:15 10/24/17 07:14 09/26/17 17:17 50 MG Hydroxyzine HCl (Vistaril Tab) 25 mg Q4 PRN PO 09/24/17 10:45 10/24/17 10:44 Sodium Chloride 1,000 ml @ 75 mls/hr [id number] IV 09/27/17 07:45 10/27/17 07:44 09/28/17 11:07 75 MLS/HR Ertapenem (Consult) 1 ea UD PRN N/A 09/27/17 09:15 10/27/17 09:14 Heparin Sodium (Porcine) (Heparin Sq 5000 Unit/0.5ml) 5,000 unit Q8 SQ 09/27/17 14:00 10/27/17 13:59 09/28/17 06:12 5,000 UNIT Baclofen (Lioresal Tab) 10 mg TID PO 09/27/17 14:00 10/27/17 13:59 09/28/17 08:35 10 MG Gabapentin (Neurontin Cap) 100 mg BID PO 09/27/17 09:30 10/27/17 09:29 09/28/17 08:36 100 MG Ertapenem 1 gm/ Sodium Chloride 50 ml @ 100 mls/hr Q24H IV 09/27/17 16:00 10/11/17 15:59 09/27/17 16:39 100 MLS/HR Triamcinolone Acetonide (Kenalog 0.1% Cream) 1 appln BID EXT 09/27/17 20:00 10/18/17 03:59 09/28/17 08:33 1 APPLN
--- NOTE | 2017-09-28 14:49 | Progress Note ---
Subjective Date of Service: Sep 28, 2017. Subjective Pt evaluation today including: conversation w/ patient, physical exam, chart review, lab review tolerating abx, afebrile repeat blood cultures pending. no pain, no f/c, no abd pain. all remaining ros reviewed and are negative. 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 (2) Anxiety Disorder, Unspecified Status: Chronic (3) Bullous Pemphigoid Status: Chronic (4) Chronic Kidney Disease, Unspecified Status: Chronic (5) Depression Status: Chronic (6) Depressive Disorder Nec Status: Chronic (7) Drug-seeking behavior Status: Acute (8) Dyslipidemia Status: Chronic (9) Exacerbation of chronic back pain Status: Acute (10) HTN (hypertension) Status: Chronic (11) Obesity Status: Chronic (12) Osteoarthritis Status: Chronic (13) Osteoporosis Status: Chronic (14) Right flank pain Status: Acute (15) Right lumbar radiculopathy Status: Acute (16) Valvular heart disease Status: Chronic Objective Vital Signs Date Time Temp Pulse Resp B/P (MAP) Pulse Ox O2 Delivery O2 Flow Rate FiO2 09/28/17 11:18 Room Air 09/28/17 06:53 36.4 89 18 135/77 (96) 92 Room Air 09/28/17 00:30 Room Air 09/27/17 23:02 36.9 97 18 129/68 (88) 94 Room Air 09/27/17 17:30 Room Air Physical Exam General Appearance: WD/WN, no apparent distress Eyes: EOMI Neck: supple Respiratory/Chest: lungs clear, normal breath sounds, no respiratory distress Cardiovascular: regular rate, rhythm, no edema Abdomen: soft Extremities: non-tender, no pedal edema Neurologic/Psychiatric: alert, oriented x 3 Skin: normal color Laboratory Results Item Value Date Time Blood Culture - Preliminary Resulted 09/26/17 1316 Blood Gram Negative Bacilli Blood Culture - Preliminary Resulted 09/26/17 1305 Blood Gram Negative Bacilli Blood Culture - Final Complete 09/25/17 1113 Blood Escherichia Coli Esbl Urine Culture - Final Complete 09/25/17 2000 Urine , Clean Catch Escherichia Coli Esbl Blood Culture - Preliminary Resulted 09/26/17 1316 Blood Escherichia Coli Esbl Blood Culture - Preliminary Resulted 09/26/17 1305 Blood Escherichia Coli Esbl Blood Culture - Preliminary Resulted 09/25/17 1121 Blood Escherichia Coli Esbl Last 24 Hours Test 09/27/17 15:24 09/28/17 06:58 Hemoglobin 8.8 g/dL 9.1 g/dL Hematocrit 27.5 % 28.9 % White Blood Count 18.65 K/uL Red Blood Count 3.19 M/uL Mean Corpuscular Volume 90.6 fL Mean Corpuscular Hemoglobin 28.5 pg Mean Corpuscular Hemoglobin Concent 31.5 g/dl Platelet Count 117 K/uL Mean Platelet Volume 11.5 fL Neutrophils (%) (Auto) 86.9 % Lymphocytes (%) (Auto) 5.5 % Monocytes (%) (Auto) 6.2 % Eosinophils (%) (Auto) 0.2 % Basophils (%) (Auto) 0.1 % Neutrophils # (Auto) 16.24 K/uL Lymphocytes # (Auto) 1.02 K/uL Monocytes # (Auto) 1.15 K/uL Eosinophils # (Auto) 0.03 K/uL Basophils # (Auto) 0.01 K/uL RDW Standard Deviation 57.4 fL RDW Coefficient of Variation 17.3 % Immature Granulocyte % (Auto) 1.1 % Immature Granulocyte # (Auto) 0.20 K/uL Red Blood Cell Morphology Unremarkable Sodium Level 133 mmol/L Potassium Level 4.9 mmol/L Chloride Level 104 mmol/L Carbon Dioxide Level 21 mmol/L Anion Gap 8.0 mmol/L Blood Urea Nitrogen 49 mg/dl Creatinine 2.49 mg/dl Est Creatinine Clear Calc Drug Dose 33.8 ml/min Estimated GFR () 23.5 Estimated GFR (Non- 20.3 BUN/Creatinine Ratio 19.5 Random Glucose 81 mg/dl Calcium Level 7.3 mg/dl Assessment and Plan (1) E. coli septicemia Assessment & Plan: continue ertapenem, repeat culture. if remain + would suggest ct abd. will need min 14 days. will follow.
[2017-09-28 14:57] VITALS: BP 103/65; PULSE 89; TEMP 36.7; O2SAT 90
--- NOTE | 2017-09-28 15:06 | Nephrology Progress Note ---
Nephrology Progress Note Date of Service: Sep 28, 2017. Subjective c/o polyuria; denies sob, cough; denies edema or nausea. nursing notes pt has been anxious about getting out of bed to toilet, has asked for palomares, literally voided on floor rather than get up to bathroom; psych following. Objective Date Time Temp Pulse Resp B/P (MAP) Pulse Ox O2 Delivery O2 Flow Rate FiO2 09/28/17 11:18 Room Air 09/28/17 06:53 36.4 89 18 135/77 (96) 92 Room Air 09/28/17 00:30 Room Air 09/27/17 23:02 36.9 97 18 129/68 (88) 94 Room Air 09/27/17 17:30 Room Air Physical Exam: General-lying flat on RA, A&0 x 3 nad Eyes-eomi ENT-dry mm Neck-supple Lungs-occasional R insp wheeze w/o any resp distress Heart-RRR; SM Abdomen soft, NT, +BS, no palomares Extremities-no edema Neuro-jha, fluent speech Current Inpatient Medications Medications (Trade) Dose Ordered Sig/Sukhdeep Route Start Time Stop Time Status Last Admin Dose Admin Acetaminophen (Tylenol Tab) 650 mg Q4H PRN PO 09/18/17 04:00 10/18/17 03:59 09/25/17 08:09 650 MG Al Hydrox/Mg Hydrox/Simethicone (Maalox Max Susp) 15 ml Q4H PRN PO 09/18/17 04:00 10/18/17 03:59 Polyethylene (Miralax Powder Packet) 17 gm DAILY PRN PO 09/18/17 04:00 10/18/17 03:59 09/19/17 13:37 17 GM Ondansetron HCl (Zofran Inj) 4 mg Q6H PRN IV 09/18/17 04:00 10/18/17 03:59 09/26/17 11:31 4 MG Aspirin (Ecotrin Tab) 81 mg DAILY PO 09/18/17 08:00 10/18/17 08:59 09/28/17 08:35 81 MG Atorvastatin Calcium (Lipitor Tab) 80 mg DAILY PO 09/18/17 08:00 10/18/17 08:59 09/28/17 08:36 80 MG Diclofenac Sodium (Voltaren 1% Top Gel) 1 appln QID EXT 09/18/17 08:00 10/18/17 08:59 09/28/17 12:10 1 APPLN Fluocinonide (Lidex Oint) 1 appln BID PRN EXT 09/18/17 04:00 10/18/17 03:59 09/27/17 21:57 1 APPLN Acetaminophen/ Hydrocodone Bitart ([place] 5/325 Tab) 1 tab BID PRN PO 09/18/17 04:00 10/02/17 03:59 09/27/17 03:30 1 TAB Loratadine (Claritin Tab) 10 mg DAILY PO 09/18/17 08:00 10/18/17 08:59 09/28/17 08:34 10 MG Metoprolol Succinate (Toprol Xl Tab) 25 mg DAILY PO 09/18/17 08:00 10/18/17 08:59 09/28/17 08:36 25 MG Nitroglycerin (Nitrostat Tab) 0.4 mg PRN UT 09/18/17 04:00 10/18/17 03:59 09/21/17 08:34 0.4 MG Nystatin (Mycostatin Powder) 1 appln BID EXT 09/18/17 08:00 10/18/17 08:59 09/28/17 08:33 1 APPLN Ascorbic Acid (Vitamin C Tab) 250 mg DAILY PO 09/18/17 08:00 10/18/17 08:59 09/28/17 08:36 250 MG Cholecalciferol (Vitamin D Tab) 2,000 inter.unit DAILY PO 09/18/17 08:00 10/18/17 08:59 09/28/17 08:36 2,000 INTER.UNIT Ferrous Sulfate (Feosol Tab) 325 mg DAILY PO 09/18/17 08:00 10/18/17 08:59 09/28/17 08:35 325 MG Folic Acid (Folvite Tab) 800 mcg DAILY PO 09/18/17 08:00 10/18/17 08:59 09/28/17 08:35 800 MCG Pantoprazole Sodium (Protonix Tab) 40 mg DAILY PO 09/18/17 08:00 10/18/17 08:59 09/28/17 08:36 40 MG Miscellaneous (Iv Fluids Completed) 1 ea PRN PRN N/A 09/18/17 04:45 09/18/18 04:44 Miconazole Nitrate (Desenex Powder) 1 appln PRN PRN EXT 09/18/17 09:00 10/18/17 08:59 09/24/17 08:41 1 APPLN Senna/Docusate Sodium (Senokot S Tab) 2 tab HS PO 09/19/17 21:00 10/19/17 20:59 09/26/17 20:10 2 TAB Polyethylene (Miralax Powder Packet) 17 gm TID PO 09/20/17 20:00 10/20/17 19:59 09/28/17 08:32 17 GM Duloxetine HCl (Cymbalta Cap) 60 mg QAM PO 09/22/17 08:00 10/22/17 07:59 09/28/17 08:34 60 MG Bupropion HCl (Wellbutrin-Sr Tab) 200 mg [id number] PO 09/24/17 07:00 10/18/17 08:59 09/28/17 06:10 200 MG Hydroxyzine HCl (Vistaril Tab) 50 mg HS PRN PO 09/24/17 07:15 10/24/17 07:14 09/26/17 17:17 50 MG Hydroxyzine HCl (Vistaril Tab) 25 mg Q4 PRN PO 09/24/17 10:45 10/24/17 10:44 Sodium Chloride 1,000 ml @ 75 mls/hr [id number] IV 09/27/17 07:45 10/27/17 07:44 09/28/17 11:07 75 MLS/HR Ertapenem (Consult) 1 ea UD PRN N/A 09/27/17 09:15 10/27/17 09:14 Heparin Sodium (Porcine) (Heparin Sq 5000 Unit/0.5ml) 5,000 unit Q8 SQ 09/27/17 14:00 10/27/17 13:59 09/28/17 06:12 5,000 UNIT Baclofen (Lioresal Tab) 10 mg TID PO 09/27/17 14:00 10/27/17 13:59 09/28/17 08:35 10 MG Gabapentin (Neurontin Cap) 100 mg BID PO 09/27/17 09:30 9/7/18 09:29 09/28/17 08:36 100 MG Ertapenem 1 gm/ Sodium Chloride 50 ml @ 100 mls/hr Q24H IV 09/27/17 16:00 10/11/17 15:59 09/27/17 16:39 100 MLS/HR Triamcinolone Acetonide (Kenalog 0.1% Cream) 1 appln BID EXT 09/27/17 20:00 10/18/17 03:59 09/28/17 08:33 1 APPLN Last 24 Hours Test 09/27/17 15:24 09/28/17 06:58 Hemoglobin 8.8 g/dL 9.1 g/dL Hematocrit 27.5 % 28.9 % White Blood Count 18.65 K/uL Red Blood Count 3.19 M/uL Mean Corpuscular Volume 90.6 fL Mean Corpuscular Hemoglobin 28.5 pg Mean Corpuscular Hemoglobin Concent 31.5 g/dl Platelet Count 117 K/uL Mean Platelet Volume 11.5 fL Neutrophils (%) (Auto) 86.9 % Lymphocytes (%) (Auto) 5.5 % Monocytes (%) (Auto) 6.2 % Eosinophils (%) (Auto) 0.2 % Basophils (%) (Auto) 0.1 % Neutrophils # (Auto) 16.24 K/uL Lymphocytes # (Auto) 1.02 K/uL Monocytes # (Auto) 1.15 K/uL Eosinophils # (Auto) 0.03 K/uL Basophils # (Auto) 0.01 K/uL RDW Standard Deviation 57.4 fL RDW Coefficient of Variation 17.3 % Immature Granulocyte % (Auto) 1.1 % Immature Granulocyte # (Auto) 0.20 K/uL Red Blood Cell Morphology Unremarkable Sodium Level 133 mmol/L Potassium Level 4.9 mmol/L Chloride Level 104 mmol/L Carbon Dioxide Level 21 mmol/L Anion Gap 8.0 mmol/L Blood Urea Nitrogen 49 mg/dl Creatinine 2.49 mg/dl Est Creatinine Clear Calc Drug Dose 33.8 ml/min Estimated GFR () 23.5 Estimated GFR (Non- 20.3 BUN/Creatinine Ratio 19.5 Random Glucose 81 mg/dl Calcium Level 7.3 mg/dl Date/Time Source Procedure Growth Status 09/27/17 15:24 Blood Blood Culture Pending Received 09/27/17 15:18 Blood Blood Culture Pending Received Assessment & Plan 62-year-old female with history of hypertension, obesity, valvular heart disease and prior episodes of acute kidney injury was admitted with gram- negative bacteremia now being evaluated for worsening renal function. 1. Nonoliguric acute kidney injury: Patient with admission creatinine of 1.2 but creatinine peaked at 2.6 yesterday w/ little change at 2.5 today. Attributed to ischemic ATN from sepsis; AIN also on differential, at least theoretically. Patient has been intermittently hypotensive but improved today; renal u/s unremarkable except for some bladder debris/ limited vascularity -- would repeat when healed prior to any urology involvement -avoid nephrotoxins; cont daily bmp. Monitor renal function with daily BMP and renally dose medications for current GFR. Avoid nephrotoxins such as contrast and NSAIDs. No indication for further IVF at this time unless she is NPO. 2. Hypertension: Blood pressure is well controlled. Avoid hypotension to increase chances of renal recovery. 3. Metabolic acidosis: She does have an ongoing mild metabolic acidosis in setting of acute kidney injury. Monitor daily but for now no need for bicarbonate infusion or other intervention 4. Hyponatremia: She does have mild hyponatremia, improving w/ care. Recommend checking a urine osmolality and serum osmolality only if serum Na worsens again at this point. Thank you for involving us in the care of this patient
[2017-09-28 16:47] VITALS: O2SAT 93
[2017-09-28] MEDS: ERTAPENEM IV 1 GM in SODIUM CHLOR 0.9% AD-VAN 50ML IV SCH (16:58)
[2017-09-28] MEDS: DOCUSATE SODIUM/SENNA 50/8.6MG TAB PO SCH (19:37)
[2017-09-29 00:01] VITALS: BP 124/82; PULSE 81; TEMP 36.5; O2SAT 91
[2017-09-29] MEDS: SODIUM CHLORIDE 0.9% 1000ML 1,000 ML IV SCH ×2 (00:41→13:04)
[2017-09-29] MEDS: HEPARIN SOD 5000 UNIT/0.5 ML CARP SQ SCH ×3 (06:28→20:42)
[2017-09-29 07:06] LABS: BASO % 0.2 %; BASO ABS # 0.03 K/uL (0-0.2); EOS % 0.9 %; EOS ABS # 0.16 K/uL (0-0.5); HEMATOCRIT 29.4 % (37-47); HEMOGLOBIN 9.1 g/dL (12.0-16.0); IG# 0.38 K/uL (0.00-0.02); LYMPH % 8.8 %; MEAN CORPUSCULAR HEMOGLOBIN 28.2 pg (25-34); MEAN PLATELET VOLUME 11.3 fL (7.4-10.4); MONO % 6.6 %; MONO ABS # 1.13 K/uL (0.11-0.59); NEUT % 81.3 %; NEUT ABS # 13.88 K/uL (1.4-6.5); PLATELET COUNT 154 K/uL (130-400); RED CELL DISTRIBUTION WIDTH CV 17.4 % (11.5-14.5); RED CELL DISTRIBUTION WIDTH SD 58.6 fL (36.4-46.3); WHITE BLOOD COUNT 17.08 K/uL (4.8-10.8)
[2017-09-29 07:11] VITALS: BP 168/105; PULSE 91; TEMP 36.7; O2SAT 93
[2017-09-29 07:33] LABS: CALCIUM 7.2 mg/dl (8.5-10.1); CREATININE 1.89 mg/dl (0.60-1.20); POTASSIUM 5.1 mmol/L (3.5-5.1)
[2017-09-29] MEDS: POLYETHYLENE (MIRALAX) 17 GM PACK PO SCH ×3 (08:40→20:42)
[2017-09-29] MEDS: MICONAZOLE NITRATE POWDER 43 GM EXT PRN (08:45)
[2017-09-29] MEDS: TRIAMCINOLONE ACET 0.1% CR 15 GM TUBE EXT SCH ×2 (08:45→20:41)
[2017-09-29] MEDS: BuPROPion SR 100 MG TABCR PO SCH ×2 (08:45→14:14)
[2017-09-29] MEDS: FLUOCINONIDE 0.05% OINT 15 GM TUBE EXT PRN (08:45)
[2017-09-29] MEDS: GABAPENTIN 100 MG CAP PO SCH ×2 (08:46→20:42)
[2017-09-29] MEDS: DICLOFENAC SOD 1% GEL 100 GM TUBE EXT SCH ×4 (08:46→20:42)
[2017-09-29] MEDS: NYSTATIN POWDER 15GM BTL EXT SCH ×2 (08:46→20:41)
[2017-09-29] MEDS: hydrOXYzine HCL 25 MG TAB PO PRN (08:47)
[2017-09-29] MEDS: DULOXETINE HCL 60 MG CAP PO SCH (10:00)
[2017-09-29] MEDS: LORATADINE 10 MG TAB PO SCH (10:00)
[2017-09-29] MEDS: FERROUS SULFATE 325 MG TAB PO SCH (10:00)
[2017-09-29] MEDS: ASPIRIN 81 MG ECTAB PO SCH (10:00)
[2017-09-29] MEDS: BACLOFEN 10 MG TAB PO SCH ×3 (10:01→20:42)
[2017-09-29] MEDS: METOPROLOL SUCC 25MG EXT REL TAB PO SCH (10:01)
[2017-09-29] MEDS: ATORVASTATIN 40 MG TAB PO SCH (10:01)
[2017-09-29] MEDS: PANTOprazole SOD 40 MG TAB PO SCH (10:01)
[2017-09-29] MEDS: FoLIC ACID TAB 400 MCG TAB PO SCH (10:01)
[2017-09-29] MEDS: CHOLECALCIFEROL 1000 INTER.UNIT TAB PO SCH (10:02)
[2017-09-29] MEDS: ASCORBIC ACID 500 MG TAB PO SCH (10:02)
--- NOTE | 2017-09-29 11:42 | Progress Note ---
Subjective Date of Service: Sep 29, 2017. Subjective Pt evaluation today including: conversation w/ patient, physical exam, chart review, lab review pt tolerating abx. no f/c. no abd pain. repeat cultures negative. 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 (2) Anxiety Disorder, Unspecified Status: Chronic (3) Bullous Pemphigoid Status: Chronic (4) Chronic Kidney Disease, Unspecified Status: Chronic (5) Depression Status: Chronic (6) Depressive Disorder Nec Status: Chronic (7) Drug-seeking behavior Status: Acute (8) Dyslipidemia Status: Chronic (9) Exacerbation of chronic back pain Status: Acute (10) HTN (hypertension) Status: Chronic (11) Obesity Status: Chronic (12) Osteoarthritis Status: Chronic (13) Osteoporosis Status: Chronic (14) Right flank pain Status: Acute (15) Right lumbar radiculopathy Status: Acute (16) Valvular heart disease Status: Chronic Objective Vital Signs Date Time Temp Pulse Resp B/P (MAP) Pulse Ox O2 Delivery O2 Flow Rate FiO2 09/29/17 10:56 Room Air 09/29/17 07:11 36.7 91 18 168/105 (126) 93 Room Air 09/29/17 03:07 Room Air 09/29/17 00:01 36.5 81 18 124/82 (96) 91 Room Air 09/28/17 16:47 93 Room Air 09/28/17 14:57 36.7 89 20 103/65 (78) 90 Room Air Physical Exam General Appearance: WD/WN, no apparent distress Eyes: normal inspection, EOMI Neck: supple Respiratory/Chest: lungs clear, normal breath sounds, no respiratory distress Cardiovascular: regular rate, rhythm, no edema Abdomen: non tender, soft Extremities: non-tender, no pedal edema Neurologic/Psychiatric: alert Skin: normal color Laboratory Results Item Value Date Time Blood Culture - Preliminary Resulted 09/27/17 1524 Blood NO GROWTH TO DATE. Blood Culture - Preliminary Resulted 09/27/17 1518 Blood NO GROWTH TO DATE. Gram Stain - Final Resulted 09/27/17 0000 Drainage - Surface Leg Left Upper Urine Culture - Final Complete 09/25/17 2000 Urine , Clean Catch Escherichia Coli Esbl Blood Culture - Final Complete 09/25/17 1113 Blood Escherichia Coli Esbl Last 24 Hours Test 09/29/17 06:35 White Blood Count 17.08 K/uL Red Blood Count 3.23 M/uL Hemoglobin 9.1 g/dL Hematocrit 29.4 % Mean Corpuscular Volume 91.0 fL Mean Corpuscular Hemoglobin 28.2 pg Mean Corpuscular Hemoglobin Concent 31.0 g/dl Platelet Count 154 K/uL Mean Platelet Volume 11.3 fL Neutrophils (%) (Auto) 81.3 % Lymphocytes (%) (Auto) 8.8 % Monocytes (%) (Auto) 6.6 % Eosinophils (%) (Auto) 0.9 % Basophils (%) (Auto) 0.2 % Neutrophils # (Auto) 13.88 K/uL Lymphocytes # (Auto) 1.50 K/uL Monocytes # (Auto) 1.13 K/uL Eosinophils # (Auto) 0.16 K/uL Basophils # (Auto) 0.03 K/uL RDW Standard Deviation 58.6 fL RDW Coefficient of Variation 17.4 % Immature Granulocyte % (Auto) 2.2 % Immature Granulocyte # (Auto) 0.38 K/uL Sodium Level 135 mmol/L Potassium Level 5.1 mmol/L Chloride Level 109 mmol/L Carbon Dioxide Level 20 mmol/L Anion Gap 6.0 mmol/L Blood Urea Nitrogen 36 mg/dl Creatinine 1.89 mg/dl Est Creatinine Clear Calc Drug Dose 44.6 ml/min Estimated GFR () 32.8 Estimated GFR (Non- 28.3 BUN/Creatinine Ratio 19.2 Random Glucose 70 mg/dl Calcium Level 7.2 mg/dl Assessment and Plan (1) E. coli septicemia Assessment & Plan: continue ertapenem, repeat culture. if remain + would suggest ct abd. will need 14 days. thank you
[2017-09-29] MEDS ORDERED: LEVALBUTEROL/IPRATROPIUM NEB INH ONE (12:30)
[2017-09-29] MEDS ORDERED: LEVALBUTEROL/IPRATROPIUM NEB INH PRN (12:30)
[2017-09-29] MEDS ORDERED: LEVALBUTEROL 1.25MG/0.5ML NEB INH PRN (13:00)
[2017-09-29] MEDS ORDERED: IPRATROPIUM BROMIDE NEB SOLN 0.02% 2.5 ML VIAL INH PRN (13:00)
--- NOTE | 2017-09-29 13:07 | DIAGNOSTIC IMAGING REPORT ---
CHEST ONE VIEW PORTABLE CLINICAL HISTORY: r/o chf, pulmonary edema dyspnea COMPARISON STUDY: 09/26/2017 FINDINGS: Moderate increase in pulmonary vasculature. Heart remains mildly enlarged. Diaphragms are smooth. IMPRESSION: Developing congestive failure versus pulmonary edema The above report was generated using voice recognition software. It may contain grammatical, syntax or spelling errors. Electronically signed by: Wallace Ramon M.D. 09/29/2017 1:06 PM Dictated Date/Time: 09/29/2017 1:05 PM
[2017-09-29] MEDS: SODIUM BICARBONATE 650 MG TAB PO SCH ×2 (14:14→20:42)
[2017-09-29] MEDS: HYDROCODONE/ACETAMIN 5/325MG TAB PO PRN (14:16)
--- NOTE | 2017-09-29 14:20 | Progress Note ---
Medicine Progress Note Date & Time of Visit: Sep 29, 2017 at 14:14. Subjective Seen resting in bed, not in distress Does report feeling congested on her chest, has occasional cough denies chest pain, palpitations, dizziness Still has some back pain, improving No other symptoms Objective Last 8 Hrs Date Time Temp Pulse Resp B/P (MAP) Pulse Ox O2 Delivery O2 Flow Rate FiO2 09/29/17 10:56 Room Air 09/29/17 07:11 36.7 91 18 168/105 (126) 93 Room Air Physical Exam: General- oriented x 3, not in distress, speaks in sentences with no effort Eyes- anicteric Neck- no JVD Lungs-faint wheeze bilaterally, no crackles, good air entry bilaterally Heart- regular rhythm; no murmur, normal rate Abdomen- normal bowel sounds, soft, nontender Extremities- no pretibial edema, no calf tenderness Neuro- alert, oriented x 3; no gross focal deficits Skin- warm & dry Laboratory Results: Last 24 Hours Test 09/29/17 06:35 White Blood Count 17.08 K/uL Red Blood Count 3.23 M/uL Hemoglobin 9.1 g/dL Hematocrit 29.4 % Mean Corpuscular Volume 91.0 fL Mean Corpuscular Hemoglobin 28.2 pg Mean Corpuscular Hemoglobin Concent 31.0 g/dl Platelet Count 154 K/uL Mean Platelet Volume 11.3 fL Neutrophils (%) (Auto) 81.3 % Lymphocytes (%) (Auto) 8.8 % Monocytes (%) (Auto) 6.6 % Eosinophils (%) (Auto) 0.9 % Basophils (%) (Auto) 0.2 % Neutrophils # (Auto) 13.88 K/uL Lymphocytes # (Auto) 1.50 K/uL Monocytes # (Auto) 1.13 K/uL Eosinophils # (Auto) 0.16 K/uL Basophils # (Auto) 0.03 K/uL RDW Standard Deviation 58.6 fL RDW Coefficient of Variation 17.4 % Immature Granulocyte % (Auto) 2.2 % Immature Granulocyte # (Auto) 0.38 K/uL Sodium Level 135 mmol/L Potassium Level 5.1 mmol/L Chloride Level 109 mmol/L Carbon Dioxide Level 20 mmol/L Anion Gap 6.0 mmol/L Blood Urea Nitrogen 36 mg/dl Creatinine 1.89 mg/dl Est Creatinine Clear Calc Drug Dose 44.6 ml/min Estimated GFR () 32.8 Estimated GFR (Non- 28.3 BUN/Creatinine Ratio 19.2 Random Glucose 70 mg/dl Calcium Level 7.2 mg/dl Assessment & Plan BACK PAIN, SPINAL STENOSIS, L5-S 1 BULGING DISC MRI lumbar spine demonstrated spinal stenosis and bulging disc L5-S1. Ortho consult with Dr. Nesbitt; conservative management recommended. Pain Management consulted and will see patient in clinic for follow-up. Received Medrol taper. Continue Keller PRN added Gabapentin 300mg BID--> dose reduced to 100mg due to drowsiness Baclofen Added appreciate Pain Mgt recommendations --Seems improved today E COLI ESBL, UTI AND BACTEREMIA 09/25/17: (+) fever of 39, hypotension urine culture: E COLI ESBL blood cultures: : E COLI ESBL repeat blood cultures: E COLI ESBL repeat blood cultures; negative so far Changed Ceftri to Ertapenem Da y3 hold Cellcept ID consulted, appreciate the recommendations ACUTE RENAL FAILURE likely pre renal etiology crea 1.9--> 2.5 --> 1.89 DC IV and assess today, patient showing signs of congestion d/c Lisinopril Renal ultrasound unremarkable - Nephrology consulted Sodium bicarbonate 3 times daily ordered -Appreciate nephrology service recommendations Possible acute on chronic diastolic CHF -Has been on and assess for hypotension and acute renal failure Hold IV NSS today Monitor closely HYPOTENSION likely from dehydration resolved hold Amlodipine ANEMIA, 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 BULLOUS PEMPHIGOID BILATERAL GROIN WOUNDS HOLD mycophenolate mofetil in light of fever, underlying infection (day 2) on denosumab as outpatient discussed with derm, agree with holding Cellcept continue Triamcinoline BID Wound care consulted MORBID OBESITY Wt 134 kg, BMI 47.7. AHA diet. CONSTIPATION Bowel regimen as ordered. DEPRESSION Psych consulted. Arrangements made for outpatient follow-up. Very anxious / depressed / chronic back pain. Increased duloxetine to 60 mg daily. CHEST PAIN 8/2 Atypical chest pain. EKG showed NSR, no acute changes. D-dimer elevated, but CTA of chest negative for PE and venous duplex of lower extremities negative for DVT. VTE PROPHYLAXIS SQ heparin. Ambulate. DISPOSITION management of infection as noted above Unable to perform ADLs independently or comfortably. Will probably need skilled care. Case Management consulted. Family Medicine follow-up with Dr. Marcus Talavera. . Current Inpatient Medications: Current Inpatient Medications Medications (Trade) Dose Ordered Sig/Sukhdeep Route Start Time Stop Time Status Last Admin Dose Admin Acetaminophen (Tylenol Tab) 650 mg Q4H PRN PO 09/18/17 04:00 10/18/17 03:59 09/25/17 08:09 650 MG Al Hydrox/Mg Hydrox/Simethicone (Maalox Max Susp) 15 ml Q4H PRN PO 09/18/17 04:00 10/18/17 03:59 Polyethylene (Miralax Powder Packet) 17 gm DAILY PRN PO 09/18/17 04:00 10/18/17 03:59 09/19/17 13:37 17 GM Ondansetron HCl (Zofran Inj) 4 mg Q6H PRN IV 09/18/17 04:00 10/18/17 03:59 09/26/17 11:31 4 MG Aspirin (Ecotrin Tab) 81 mg DAILY PO 09/18/17 08:00 10/18/17 08:59 09/29/17 10:00 81 MG Diclofenac Sodium (Voltaren 1% Top Gel) 1 appln QID EXT 09/18/17 08:00 10/18/17 08:59 09/29/17 13:05 1 APPLN Fluocinonide (Lidex Oint) 1 appln BID PRN EXT 09/18/17 04:00 10/18/17 03:59 09/29/17 08:45 1 APPLN Acetaminophen/ Hydrocodone Bitart ([place] 5/325 Tab) 1 tab BID PRN PO 09/18/17 04:00 10/02/17 03:59 09/27/17 03:30 1 TAB Loratadine (Claritin Tab) 10 mg DAILY PO 09/18/17 08:00 10/18/17 08:59 09/29/17 10:00 10 MG Metoprolol Succinate (Toprol Xl Tab) 25 mg DAILY PO 09/18/17 08:00 10/18/17 08:59 09/29/17 10:01 25 MG Nitroglycerin (Nitrostat Tab) 0.4 mg PRN UT 09/18/17 04:00 10/18/17 03:59 09/21/17 08:34 0.4 MG Nystatin (Mycostatin Powder) 1 appln BID EXT 09/18/17 08:00 10/18/17 08:59 09/29/17 08:46 1 APPLN Ascorbic Acid (Vitamin C Tab) 250 mg DAILY PO 09/18/17 08:00 10/18/17 08:59 09/29/17 10:02 250 MG Cholecalciferol (Vitamin D Tab) 2,000 inter.unit DAILY PO 09/18/17 08:00 10/18/17 08:59 09/29/17 10:02 2,000 INTER.UNIT Ferrous Sulfate (Feosol Tab) 325 mg DAILY PO 09/18/17 08:00 10/18/17 08:59 09/29/17 10:00 325 MG Folic Acid (Folvite Tab) 800 mcg DAILY PO 09/18/17 08:00 10/18/17 08:59 09/29/17 10:01 800 MCG Pantoprazole Sodium (Protonix Tab) 40 mg DAILY PO 09/18/17 08:00 10/18/17 08:59 09/29/17 10:01 40 MG Miscellaneous (Iv Fluids Completed) 1 ea PRN PRN N/A 09/18/17 04:45 09/18/18 04:44 Miconazole Nitrate (Desenex Powder) 1 appln PRN PRN EXT 09/18/17 09:00 10/18/17 08:59 09/29/17 08:45 1 APPLN Polyethylene (Miralax Powder Packet) 17 gm TID PO 09/20/17 20:00 10/20/17 19:59 09/28/17 08:32 17 GM Duloxetine HCl (Cymbalta Cap) 60 mg QAM PO 09/22/17 08:00 10/22/17 07:59 09/29/17 10:00 60 MG Bupropion HCl (Wellbutrin-Sr Tab) 200 mg [id number] PO 09/24/17 07:00 10/18/17 08:59 09/29/17 08:45 200 MG Hydroxyzine HCl (Vistaril Tab) 50 mg HS PRN PO 09/24/17 07:15 10/24/17 07:14 09/29/17 08:47 50 MG Hydroxyzine HCl (Vistaril Tab) 25 mg Q4 PRN PO 09/24/17 10:45 10/24/17 10:44 Ertapenem (Consult) 1 ea UD PRN N/A 09/27/17 09:15 10/27/17 09:14 Heparin Sodium (Porcine) (Heparin Sq 5000 Unit/0.5ml) 5,000 unit Q8 SQ 09/27/17 14:00 10/27/17 13:59 09/29/17 06:28 5,000 UNIT Baclofen (Lioresal Tab) 10 mg TID PO 09/27/17 14:00 10/27/17 13:59 09/29/17 10:01 10 MG Gabapentin (Neurontin Cap) 100 mg BID PO 09/27/17 09:30 10/27/17 09:29 09/29/17 08:46 100 MG Ertapenem 1 gm/ Sodium Chloride 50 ml @ 100 mls/hr Q24H IV 09/27/17 16:00 10/11/17 15:59 09/28/17 16:58 100 MLS/HR Triamcinolone Acetonide (Kenalog 0.1% Cream) 1 appln BID EXT 09/27/17 20:00 10/18/17 03:59 09/29/17 08:45 1 APPLN Sodium Bicarbonate (Sodium Bicarbonate Tab) 650 mg TID PO 09/29/17 14:00 10/29/17 13:59 Ipratropium [place] (Atrovent 0.02% 0.5MG/2.5ML Neb) 0.5 mg Q4R PRN INH 09/29/17 13:00 10/29/17 12:59 Levalbuterol (Xopenex 1.25MG/ 0.5ML Neb) 1.25 mg Q4R PRN INH 09/29/17 13:00 10/29/17 12:59 Ipratropium [place] (Atrovent 0.02% 0.5MG/2.5ML Neb) 0.5 mg TODAY@1230 ONCE INH 09/30/17 12:30 09/30/17 12:31 Levalbuterol (Xopenex 1.25MG/ 0.5ML Neb) 1.25 mg TODAY@1230 ONCE INH 09/30/17 12:30 09/30/17 12:31 Ipratropium [place] (Atrovent 0.02% 0.5MG/2.5ML Neb) 0.5 mg Q6R INH 09/29/17 21:00 10/29/17 20:59 Levalbuterol (Xopenex 1.25MG/ 0.5ML Neb) 1.25 mg Q6R INH 09/29/17 21:00 10/29/17 20:59
[2017-09-29] MEDS: ERTAPENEM IV 1 GM in SODIUM CHLOR 0.9% AD-VAN 50ML IV SCH (15:55)
[2017-09-29] MEDS ORDERED: LEVALBUTEROL/IPRATROPIUM NEB INH SCH (18:30)
--- NOTE | 2017-09-29 18:57 | Nephrology Progress Note ---
Nephrology Progress Note Date of Service: Sep 29, 2017. Subjective feels slight improvement in polyuria; denies sob, cough; denies edema or nausea. did have worsening sob today and IVF were stopped after xr showed pulm [id number]. no comment on diarrhea but note that 3-5 bm recorded daily past few days Objective Date Time Temp Pulse Resp B/P (MAP) Pulse Ox O2 Delivery O2 Flow Rate FiO2 09/29/17 07:11 36.7 91 18 168/105 (126) 93 Room Air 09/29/17 03:07 Room Air 09/29/17 00:01 36.5 81 18 124/82 (96) 91 Room Air 09/28/17 16:47 93 Room Air 09/28/17 14:57 36.7 89 20 103/65 (78) 90 Room Air 09/28/17 11:18 Room Air Physical Exam: General-lying flat on RA, A&0 x 3 nad Eyes-eomi ENT-mmm Neck-supple Lungs-diminished air entry throughout; no distress Heart-RRR; SM Abdomen soft, NT, +BS, no palomares Extremities-no edema Neuro-jha, fluent speech Current Inpatient Medications Medications (Trade) Dose Ordered Sig/Sukhdeep Route Start Time Stop Time Status Last Admin Dose Admin Acetaminophen (Tylenol Tab) 650 mg Q4H PRN PO 09/18/17 04:00 10/18/17 03:59 09/25/17 08:09 650 MG Al Hydrox/Mg Hydrox/Simethicone (Maalox Max Susp) 15 ml Q4H PRN PO 09/18/17 04:00 10/18/17 03:59 Polyethylene (Miralax Powder Packet) 17 gm DAILY PRN PO 09/18/17 04:00 10/18/17 03:59 09/19/17 13:37 17 GM Ondansetron HCl (Zofran Inj) 4 mg Q6H PRN IV 09/18/17 04:00 10/18/17 03:59 09/26/17 11:31 4 MG Aspirin (Ecotrin Tab) 81 mg DAILY PO 09/18/17 08:00 10/18/17 08:59 09/29/17 10:00 81 MG Atorvastatin Calcium (Lipitor Tab) 80 mg DAILY PO 09/18/17 08:00 10/18/17 08:59 09/29/17 10:01 80 MG Diclofenac Sodium (Voltaren 1% Top Gel) 1 appln QID EXT 09/18/17 08:00 10/18/17 08:59 09/29/17 08:46 1 APPLN Fluocinonide (Lidex Oint) 1 appln BID PRN EXT 09/18/17 04:00 10/18/17 03:59 09/29/17 08:45 1 APPLN Acetaminophen/ Hydrocodone Bitart ([place] 5/325 Tab) 1 tab BID PRN PO 09/18/17 04:00 10/02/17 03:59 09/27/17 03:30 1 TAB Loratadine (Claritin Tab) 10 mg DAILY PO 09/18/17 08:00 10/18/17 08:59 09/29/17 10:00 10 MG Metoprolol Succinate (Toprol Xl Tab) 25 mg DAILY PO 09/18/17 08:00 10/18/17 08:59 09/29/17 10:01 25 MG Nitroglycerin (Nitrostat Tab) 0.4 mg PRN UT 09/18/17 04:00 10/18/17 03:59 09/21/17 08:34 0.4 MG Nystatin (Mycostatin Powder) 1 appln BID EXT 09/18/17 08:00 10/18/17 08:59 09/29/17 08:46 1 APPLN Ascorbic Acid (Vitamin C Tab) 250 mg DAILY PO 09/18/17 08:00 10/18/17 08:59 09/29/17 10:02 250 MG Cholecalciferol (Vitamin D Tab) 2,000 inter.unit DAILY PO 09/18/17 08:00 10/18/17 08:59 09/29/17 10:02 2,000 INTER.UNIT Ferrous Sulfate (Feosol Tab) 325 mg DAILY PO 09/18/17 08:00 10/18/17 08:59 09/29/17 10:00 325 MG Folic Acid (Folvite Tab) 800 mcg DAILY PO 09/18/17 08:00 10/18/17 08:59 09/29/17 10:01 800 MCG Pantoprazole Sodium (Protonix Tab) 40 mg DAILY PO 09/18/17 08:00 10/18/17 08:59 09/29/17 10:01 40 MG Miscellaneous (Iv Fluids Completed) 1 ea PRN PRN N/A 09/18/17 04:45 09/18/18 04:44 Miconazole Nitrate (Desenex Powder) 1 appln PRN PRN EXT 09/18/17 09:00 10/18/17 08:59 09/29/17 08:45 1 APPLN Senna/Docusate Sodium (Senokot S Tab) 2 tab HS PO 09/19/17 21:00 10/19/17 20:59 09/26/17 20:10 2 TAB Polyethylene (Miralax Powder Packet) 17 gm TID PO 09/20/17 20:00 10/20/17 19:59 09/28/17 08:32 17 GM Duloxetine HCl (Cymbalta Cap) 60 mg QAM PO 09/22/17 08:00 10/22/17 07:59 09/29/17 10:00 60 MG Bupropion HCl (Wellbutrin-Sr Tab) 200 mg [id number] PO 09/24/17 07:00 10/18/17 08:59 09/29/17 08:45 200 MG Hydroxyzine HCl (Vistaril Tab) 50 mg HS PRN PO 09/24/17 07:15 10/24/17 07:14 09/29/17 08:47 50 MG Hydroxyzine HCl (Vistaril Tab) 25 mg Q4 PRN PO 09/24/17 10:45 10/24/17 10:44 Sodium Chloride 1,000 ml @ 75 mls/hr [id number] IV 09/27/17 07:45 10/27/17 07:44 09/29/17 00:41 75 MLS/HR Ertapenem (Consult) 1 ea UD PRN N/A 09/27/17 09:15 10/27/17 09:14 Heparin Sodium (Porcine) (Heparin Sq 5000 Unit/0.5ml) 5,000 unit Q8 SQ 09/27/17 14:00 10/27/17 13:59 09/29/17 06:28 5,000 UNIT Baclofen (Lioresal Tab) 10 mg TID PO 09/27/17 14:00 10/27/17 13:59 09/29/17 10:01 10 MG Gabapentin (Neurontin Cap) 100 mg BID PO 09/27/17 09:30 10/27/17 09:29 09/29/17 08:46 100 MG Ertapenem 1 gm/ Sodium Chloride 50 ml @ 100 mls/hr Q24H IV 09/27/17 16:00 10/11/17 15:59 09/28/17 16:58 100 MLS/HR Triamcinolone Acetonide (Kenalog 0.1% Cream) 1 appln BID EXT 09/27/17 20:00 10/18/17 03:59 09/29/17 08:45 1 APPLN Last 24 Hours Test 09/29/17 06:35 White Blood Count 17.08 K/uL Red Blood Count 3.23 M/uL Hemoglobin 9.1 g/dL Hematocrit 29.4 % Mean Corpuscular Volume 91.0 fL Mean Corpuscular Hemoglobin 28.2 pg Mean Corpuscular Hemoglobin Concent 31.0 g/dl Platelet Count 154 K/uL Mean Platelet Volume 11.3 fL Neutrophils (%) (Auto) 81.3 % Lymphocytes (%) (Auto) 8.8 % Monocytes (%) (Auto) 6.6 % Eosinophils (%) (Auto) 0.9 % Basophils (%) (Auto) 0.2 % Neutrophils # (Auto) 13.88 K/uL Lymphocytes # (Auto) 1.50 K/uL Monocytes # (Auto) 1.13 K/uL Eosinophils # (Auto) 0.16 K/uL Basophils # (Auto) 0.03 K/uL RDW Standard Deviation 58.6 fL RDW Coefficient of Variation 17.4 % Immature Granulocyte % (Auto) 2.2 % Immature Granulocyte # (Auto) 0.38 K/uL Sodium Level 135 mmol/L Potassium Level 5.1 mmol/L Chloride Level 109 mmol/L Carbon Dioxide Level 20 mmol/L Anion Gap 6.0 mmol/L Blood Urea Nitrogen 36 mg/dl Creatinine 1.89 mg/dl Est Creatinine Clear Calc Drug Dose 44.6 ml/min Estimated GFR () 32.8 Estimated GFR (Non- 28.3 BUN/Creatinine Ratio 19.2 Random Glucose 70 mg/dl Calcium Level 7.2 mg/dl Assessment & Plan 62-year-old female with history of hypertension, obesity, valvular heart disease and prior episodes of acute kidney injury was admitted with gram- negative bacteremia now being evaluated for yudelka on ckd 1. Nonoliguric acute kidney injury: Patient with admission creatinine of 1.2 but creatinine peaked at 2.6 on 09/27 and to 1.9 today. Attributed to prerenal process from sepsis and w/ gradual improvement. Patient has been intermittently hypotensive but improved today; renal u/s unremarkable except for some bladder debris/ limited vascularity -- would repeat when healed prior to any urology involvement (as outpt). -avoid nephrotoxins; cont daily bmp. Monitor renal function with daily BMP and renally dose medications for current GFR. Avoid nephrotoxins such as contrast and NSAIDs. >No indication for further IVF at this time unless she is NPO. 2. Hypertension: Blood pressure is somewhat elevated today but would observe at this point/ newer issue. Avoid hypotension to increase chances of renal recovery. 3. Metabolic acidosis: She does have an ongoing mild metabolic acidosis in setting of acute kidney injury. >>>>>>>Will start po bicarbonate 4. Hyponatremia: She does have mild hyponatremia, improving w/ care. Recommend checking a urine osmolality and serum osmolality only if serum Na worsens again at this point; today sNa slightly improved 5. Volume Overload > mild; IVF now off; use diuretic prn only for further dyspnea/hypoxia at this point 6. On cellcept as outpt for bullous pemphigoid>> low threshold to resume this med Thank you for involving us in the care of this patient; will coordinate w/ dr zaldivar
[2017-09-29] MEDS: LEVALBUTEROL 1.25MG/0.5ML NEB INH SCH (19:12)
[2017-09-29] MEDS: IPRATROPIUM BROMIDE NEB SOLN 0.02% 2.5 ML VIAL INH SCH (19:12)
[2017-09-29 19:16] VITALS: PULSE 88; O2SAT 97
[2017-09-30 00:25] VITALS: BP 138/83; PULSE 86; TEMP 36.4; O2SAT 96
[2017-09-30] MEDS: LEVALBUTEROL 1.25MG/0.5ML NEB INH SCH ×2 (02:28→07:10)
[2017-09-30] MEDS: IPRATROPIUM BROMIDE NEB SOLN 0.02% 2.5 ML VIAL INH SCH ×2 (02:28→07:10)
[2017-09-30] MEDS: HYDROCODONE/ACETAMIN 5/325MG TAB PO PRN ×3 (04:47→22:00)
[2017-09-30] MEDS: HEPARIN SOD 5000 UNIT/0.5 ML CARP SQ SCH ×3 (04:52→22:19)
[2017-09-30 06:26] LABS: BASO % 0.2 %; BASO ABS # 0.02 K/uL (0-0.2); EOS % 1.4 %; EOS ABS # 0.18 K/uL (0-0.5); HEMATOCRIT 28.5 % (37-47); HEMOGLOBIN 8.7 g/dL (12.0-16.0); IG# 0.52 K/uL (0.00-0.02); LYMPH % 12.3 %; LYMPH ABS # 1.61 K/uL (1.2-3.4); MEAN CELL VOLUME 91.6 fL (80-100); MEAN CORPUSCULAR HGB CONC 30.5 g/dl (32-36); MEAN PLATELET VOLUME 10.9 fL (7.4-10.4); MONO % 7.5 %; MONO ABS # 0.98 K/uL (0.11-0.59); NEUT % 74.6 %; NEUT ABS # 9.74 K/uL (1.4-6.5); PLATELET COUNT 200 K/uL (130-400); RED CELL DISTRIBUTION WIDTH CV 17.3 % (11.5-14.5); RED CELL DISTRIBUTION WIDTH SD 57.4 fL (36.4-46.3); WHITE BLOOD COUNT 13.05 K/uL (4.8-10.8)
[2017-09-30] MEDS: BuPROPion SR 100 MG TABCR PO SCH ×2 (06:28→14:33)
[2017-09-30 07:03] LABS: CALCIUM 7.1 mg/dl (8.5-10.1); CREATININE 1.56 mg/dl (0.60-1.20); POTASSIUM 4.8 mmol/L (3.5-5.1)
[2017-09-30 07:10] VITALS: PULSE 91; O2SAT 94
[2017-09-30 08:23] VITALS: BP 135/84; PULSE 80; TEMP 36.6; O2SAT 90
[2017-09-30] MEDS: NYSTATIN POWDER 15GM BTL EXT SCH ×2 (08:42→21:47)
[2017-09-30] MEDS: TRIAMCINOLONE ACET 0.1% CR 15 GM TUBE EXT SCH ×2 (08:42→21:47)
[2017-09-30] MEDS: FERROUS SULFATE 325 MG TAB PO SCH (08:43)
[2017-09-30] MEDS: DULOXETINE HCL 60 MG CAP PO SCH (08:43)
[2017-09-30] MEDS: DICLOFENAC SOD 1% GEL 100 GM TUBE EXT SCH ×4 (08:43→21:45)
[2017-09-30] MEDS: LORATADINE 10 MG TAB PO SCH (08:43)
[2017-09-30] MEDS: ASPIRIN 81 MG ECTAB PO SCH (08:43)
[2017-09-30] MEDS: FoLIC ACID TAB 400 MCG TAB PO SCH (08:44)
[2017-09-30] MEDS: PANTOprazole SOD 40 MG TAB PO SCH (08:44)
[2017-09-30] MEDS: GABAPENTIN 100 MG CAP PO SCH ×2 (08:44→21:50)
[2017-09-30] MEDS: BACLOFEN 10 MG TAB PO SCH ×3 (08:44→21:48)
[2017-09-30] MEDS: METOPROLOL SUCC 25MG EXT REL TAB PO SCH (08:44)
[2017-09-30] MEDS: SODIUM BICARBONATE 650 MG TAB PO SCH (08:44)
[2017-09-30] MEDS: ASCORBIC ACID 500 MG TAB PO SCH (08:45)
[2017-09-30] MEDS: CHOLECALCIFEROL 1000 INTER.UNIT TAB PO SCH (08:45)
[2017-09-30] MEDS: POLYETHYLENE (MIRALAX) 17 GM PACK PO SCH ×3 (08:46→20:00)
[2017-09-30] MEDS: hydrOXYzine HCL 25 MG TAB PO PRN ×2 (10:26→21:51)
[2017-09-30] MEDS ORDERED: LORAZEPAM 2 MG/ML 1 ML VIAL IV PRN (10:30)
--- NOTE | 2017-09-30 10:54 | Nephrology Progress Note ---
Nephrology Progress Note Date of Service: Sep 30, 2017. Subjective Patient feels better. She reports some shortness of breath. Creatinine down trending to 1.5 today. Objective Date Time Temp Pulse Resp B/P (MAP) Pulse Ox O2 Delivery O2 Flow Rate FiO2 09/30/17 08:23 36.6 80 20 135/84 (101) 90 09/30/17 07:10 91 16 94 Room Air 09/30/17 02:19 Room Air 09/30/17 00:25 36.4 86 16 138/83 (101) 96 Room Air 09/29/17 19:16 88 16 97 Room Air 09/29/17 16:00 Room Air 09/29/17 10:56 Room Air Physical Exam: General-obese female, no respiratory distress Eyes-pupils equal and reactive to light ENT-normal on inspection Neck-supple, difficult to assess JVD due to body habitus Lungs-clear to auscultation bilaterally Heart-normal heart sounds 1 and 2, no murmurs Abdomen-obese, bowel sounds are present Extremities-warm and well perfused, peripheral pulses present Neuro-oriented 3, no focal neurological deficits Current Inpatient Medications Medications (Trade) Dose Ordered Sig/Sukhdeep Route Start Time Stop Time Status Last Admin Dose Admin Acetaminophen (Tylenol Tab) 650 mg Q4H PRN PO 09/18/17 04:00 10/18/17 03:59 09/25/17 08:09 650 MG Al Hydrox/Mg Hydrox/Simethicone (Maalox Max Susp) 15 ml Q4H PRN PO 09/18/17 04:00 10/18/17 03:59 Polyethylene (Miralax Powder Packet) 17 gm DAILY PRN PO 09/18/17 04:00 10/18/17 03:59 09/19/17 13:37 17 GM Ondansetron HCl (Zofran Inj) 4 mg Q6H PRN IV 09/18/17 04:00 10/18/17 03:59 09/26/17 11:31 4 MG Aspirin (Ecotrin Tab) 81 mg DAILY PO 09/18/17 08:00 10/18/17 08:59 09/30/17 08:43 81 MG Diclofenac Sodium (Voltaren 1% Top Gel) 1 appln QID EXT 09/18/17 08:00 10/18/17 08:59 09/30/17 08:43 1 APPLN Fluocinonide (Lidex Oint) 1 appln BID PRN EXT 09/18/17 04:00 10/18/17 03:59 09/29/17 08:45 1 APPLN Acetaminophen/ Hydrocodone Bitart ([place] 5/325 Tab) 1 tab BID PRN PO 09/18/17 04:00 10/02/17 03:59 09/30/17 04:47 1 TAB Loratadine (Claritin Tab) 10 mg DAILY PO 09/18/17 08:00 10/18/17 08:59 09/30/17 08:43 10 MG Metoprolol Succinate (Toprol Xl Tab) 25 mg DAILY PO 09/18/17 08:00 10/18/17 08:59 09/30/17 08:44 25 MG Nitroglycerin (Nitrostat Tab) 0.4 mg PRN UT 09/18/17 04:00 10/18/17 03:59 09/21/17 08:34 0.4 MG Nystatin (Mycostatin Powder) 1 appln BID EXT 09/18/17 08:00 10/18/17 08:59 09/30/17 08:42 1 APPLN Ascorbic Acid (Vitamin C Tab) 250 mg DAILY PO 09/18/17 08:00 10/18/17 08:59 09/30/17 08:45 250 MG Cholecalciferol (Vitamin D Tab) 2,000 inter.unit DAILY PO 09/18/17 08:00 10/18/17 08:59 09/30/17 08:45 2,000 INTER.UNIT Ferrous Sulfate (Feosol Tab) 325 mg DAILY PO 09/18/17 08:00 10/18/17 08:59 09/30/17 08:43 325 MG Folic Acid (Folvite Tab) 800 mcg DAILY PO 09/18/17 08:00 10/18/17 08:59 09/30/17 08:44 800 MCG Pantoprazole Sodium (Protonix Tab) 40 mg DAILY PO 09/18/17 08:00 10/18/17 08:59 09/30/17 08:44 40 MG Miscellaneous (Iv Fluids Completed) 1 ea PRN PRN N/A 09/18/17 04:45 09/18/18 04:44 Miconazole Nitrate (Desenex Powder) 1 appln PRN PRN EXT 09/18/17 09:00 10/18/17 08:59 09/29/17 08:45 1 APPLN Polyethylene (Miralax Powder Packet) 17 gm TID PO 09/20/17 20:00 10/20/17 19:59 09/28/17 08:32 17 GM Duloxetine HCl (Cymbalta Cap) 60 mg QAM PO 09/22/17 08:00 10/22/17 07:59 09/30/17 08:43 60 MG Bupropion HCl (Wellbutrin-Sr Tab) 200 mg [id number] PO 09/24/17 07:00 10/18/17 08:59 09/30/17 06:28 200 MG Hydroxyzine HCl (Vistaril Tab) 50 mg HS PRN PO 09/24/17 07:15 10/24/17 07:14 09/30/17 10:26 50 MG Hydroxyzine HCl (Vistaril Tab) 25 mg Q4 PRN PO 09/24/17 10:45 10/24/17 10:44 Ertapenem (Consult) 1 ea UD PRN N/A 09/27/17 09:15 10/27/17 09:14 Heparin Sodium (Porcine) (Heparin Sq 5000 Unit/0.5ml) 5,000 unit Q8 SQ 09/27/17 14:00 10/27/17 13:59 09/29/17 14:15 5,000 UNIT Baclofen (Lioresal Tab) 10 mg TID PO 09/27/17 14:00 10/27/17 13:59 09/30/17 08:44 10 MG Gabapentin (Neurontin Cap) 100 mg BID PO 09/27/17 09:30 10/27/17 09:29 09/30/17 08:44 100 MG Ertapenem 1 gm/ Sodium Chloride 50 ml @ 100 mls/hr Q24H IV 09/27/17 16:00 10/11/17 15:59 09/29/17 15:55 100 MLS/HR Triamcinolone Acetonide (Kenalog 0.1% Cream) 1 appln BID EXT 09/27/17 20:00 10/18/17 03:59 09/30/17 08:42 1 APPLN Ipratropium [place] (Atrovent 0.02% 0.5MG/2.5ML Neb) 0.5 mg Q4R PRN INH 09/29/17 13:00 10/29/17 12:59 Levalbuterol (Xopenex 1.25MG/ 0.5ML Neb) 1.25 mg Q4R PRN INH 09/29/17 13:00 10/29/17 12:59 Ipratropium [place] (Atrovent 0.02% 0.5MG/2.5ML Neb) 0.5 mg TODAY@1230 ONCE INH 09/30/17 12:30 09/30/17 12:31 Levalbuterol (Xopenex 1.25MG/ 0.5ML Neb) 1.25 mg TODAY@1230 ONCE INH 09/30/17 12:30 09/30/17 12:31 Ipratropium [place] (Atrovent 0.02% 0.5MG/2.5ML Neb) 0.5 mg Q6R INH 09/29/17 21:00 10/29/17 20:59 09/30/17 07:10 0.5 MG Levalbuterol (Xopenex 1.25MG/ 0.5ML Neb) 1.25 mg Q6R INH 09/29/17 21:00 10/29/17 20:59 09/30/17 07:10 1.25 MG Lorazepam (Ativan Inj) 0.5 mg Q6H PRN IV 09/30/17 10:30 10/30/17 10:29 09/30/17 10:36 0.5 MG Last 24 Hours Test 09/30/17 06:04 White Blood Count 13.05 K/uL Red Blood Count 3.11 M/uL Hemoglobin 8.7 g/dL Hematocrit 28.5 % Mean Corpuscular Volume 91.6 fL Mean Corpuscular Hemoglobin 28.0 pg Mean Corpuscular Hemoglobin Concent 30.5 g/dl Platelet Count 200 K/uL Mean Platelet Volume 10.9 fL Neutrophils (%) (Auto) 74.6 % Lymphocytes (%) (Auto) 12.3 % Monocytes (%) (Auto) 7.5 % Eosinophils (%) (Auto) 1.4 % Basophils (%) (Auto) 0.2 % Neutrophils # (Auto) 9.74 K/uL Lymphocytes # (Auto) 1.61 K/uL Monocytes # (Auto) 0.98 K/uL Eosinophils # (Auto) 0.18 K/uL Basophils # (Auto) 0.02 K/uL RDW Standard Deviation 57.4 fL RDW Coefficient of Variation 17.3 % Immature Granulocyte % (Auto) 4.0 % Immature Granulocyte # (Auto) 0.52 K/uL Red Blood Cell Morphology Unremarkable Sodium Level 136 mmol/L Potassium Level 4.8 mmol/L Chloride Level 111 mmol/L Carbon Dioxide Level 21 mmol/L Anion Gap 4.0 mmol/L Blood Urea Nitrogen 30 mg/dl Creatinine 1.56 mg/dl Est Creatinine Clear Calc Drug Dose 54.0 ml/min Estimated GFR () 41.4 Estimated GFR (Non- 35.7 BUN/Creatinine Ratio 19.0 Random Glucose 74 mg/dl Calcium Level 7.1 mg/dl Assessment & Plan This is a 62-year-old female with the history of hypertension, obesity valvular heart disease and prior episodes of acute kidney injury was admitted with gram- negative bacteremia being evaluated for acute kidney injury. 1. Acute kidney injury: Etiology of acute eye is likely ischemic ATN in setting of sepsis. Patient with admission creatinine of 1.2. Creatinine is down trending to 1.56 today. She has no indication for dialysis. Management of ATN is supportive. Monitor renal function with daily BMP and renally dose medications for current GFR. Avoid nephrotoxins such as contrast and NSAIDs 2. Hypertension: Blood pressure is well controlled. 3. Metabolic acidosis: She does have a mild metabolic acidosis in setting of acute kidney injury. Recommend stopping sodium bicarbonate supplements given patient having mild pulmonary vascular congestion on x-ray 4. Hyponatremia: Due to volume overload. Improving. Continue fluid restriction
[2017-09-30 12:18] VITALS: BP 119/83; PULSE 85
[2017-09-30] MEDS ORDERED: LEVALBUTEROL 1.25MG/0.5ML NEB INH ONE (12:30)
[2017-09-30] MEDS ORDERED: IPRATROPIUM BROMIDE NEB SOLN 0.02% 2.5 ML VIAL INH ONE (12:30)
[2017-09-30] MEDS ORDERED: NURSING VERBAL MED ORDER ONE (13:30)
[2017-09-30] MEDS: ERTAPENEM IV 1 GM in SODIUM CHLOR 0.9% AD-VAN 50ML IV SCH (15:26)
[2017-09-30 15:55] VITALS: PULSE 80; TEMP 36.4; O2SAT 98
[2017-09-30] MEDS: MICONAZOLE NITRATE POWDER 43 GM EXT PRN (21:45)
[2017-09-30 23:15] VITALS: BP 150/81; PULSE 75; TEMP 36.7; O2SAT 97
[2017-10-01] MEDS ORDERED: LORAZEPAM INJ 0.5 MG in SYRINGE 0.75 ML IV PRN (00:45)
[2017-10-01] MEDS: HEPARIN SOD 5000 UNIT/0.5 ML CARP SQ SCH ×3 (06:02→20:33)
[2017-10-01] MEDS: BuPROPion SR 100 MG TABCR PO SCH ×2 (06:29→13:40)
[2017-10-01] MEDS: POLYETHYLENE (MIRALAX) 17 GM PACK PO SCH ×3 (07:23→20:16)
[2017-10-01 07:44] LABS: HEMATOCRIT 30.8 % (37-47); HEMOGLOBIN 9.8 g/dL (12.0-16.0); MEAN CELL VOLUME 92.2 fL (80-100); MEAN CORPUSCULAR HEMOGLOBIN 29.3 pg (25-34); MEAN CORPUSCULAR HGB CONC 31.8 g/dl (32-36); MEAN PLATELET VOLUME 10.4 fL (7.4-10.4); PLATELET COUNT 223 K/uL (130-400); RED CELL DISTRIBUTION WIDTH CV 17.4 % (11.5-14.5); RED CELL DISTRIBUTION WIDTH SD 58.2 fL (36.4-46.3); WHITE BLOOD COUNT 10.95 K/uL (4.8-10.8)
[2017-10-01 07:52] VITALS: BP 157/82; PULSE 79; TEMP 36.5; O2SAT 98
[2017-10-01 08:00] VITALS: O2SAT 98
[2017-10-01] MEDS: DICLOFENAC SOD 1% GEL 100 GM TUBE EXT SCH ×5 (08:00→20:15)
[2017-10-01 08:13] LABS: CALCIUM 7.5 mg/dl (8.5-10.1); CREATININE 1.33 mg/dl (0.60-1.20); POTASSIUM 4.9 mmol/L (3.5-5.1)
[2017-10-01 08:15] LABS: BASO % 0.4 %; BASO ABS # 0.04 K/uL (0-0.2); EOS % 1.6 %; EOS ABS # 0.17 K/uL (0-0.5); IG# 0.79 K/uL (0.00-0.02); LYMPH % 17.9 %; LYMPH ABS # 1.96 K/uL (1.2-3.4); MONO % 7.5 %; MONO ABS # 0.82 K/uL (0.11-0.59); NEUT % 65.4 %; NEUT ABS # 7.17 K/uL (1.4-6.5)
[2017-10-01] MEDS: FoLIC ACID TAB 400 MCG TAB PO SCH (09:05)
[2017-10-01] MEDS: BACLOFEN 10 MG TAB PO SCH ×3 (09:05→20:16)
[2017-10-01] MEDS: TRIAMCINOLONE ACET 0.1% CR 15 GM TUBE EXT SCH ×2 (09:05→20:15)
[2017-10-01] MEDS: NYSTATIN POWDER 15GM BTL EXT SCH ×2 (09:05→20:15)
[2017-10-01] MEDS: METOPROLOL SUCC 25MG EXT REL TAB PO SCH (09:06)
[2017-10-01] MEDS: ASCORBIC ACID 500 MG TAB PO SCH (09:06)
[2017-10-01] MEDS: PANTOprazole SOD 40 MG TAB PO SCH (09:06)
[2017-10-01] MEDS: LORATADINE 10 MG TAB PO SCH (09:06)
[2017-10-01] MEDS: FERROUS SULFATE 325 MG TAB PO SCH (09:06)
[2017-10-01] MEDS: ASPIRIN 81 MG ECTAB PO SCH (09:07)
[2017-10-01] MEDS: CHOLECALCIFEROL 1000 INTER.UNIT TAB PO SCH (09:07)
[2017-10-01] MEDS: DULOXETINE HCL 60 MG CAP PO SCH (09:07)
--- NOTE | 2017-10-01 09:16 | Nephrology Progress Note ---
Nephrology Progress Note Date of Service: Oct 01, 2017. Subjective Patient feels better. She reports some improvement, denies shortness of breath. Creatinine down trending to 1.3 today. Objective Date Time Temp Pulse Resp B/P (MAP) Pulse Ox O2 Delivery O2 Flow Rate FiO2 10/01/17 07:52 36.5 79 16 157/82 (107) 98 Room Air 10/01/17 00:15 Room Air 09/30/17 23:15 36.7 75 18 150/81 (104) 97 Room Air 09/30/17 16:00 Room Air 09/30/17 15:55 36.4 80 18 98 Room Air 09/30/17 12:18 85 20 119/83 (95) Room Air 09/30/17 10:50 Room Air Physical Exam: General-obese female, no respiratory distress Eyes-pupils equal and reactive to light ENT-normal on inspection Neck-supple, difficult to assess JVD due to body habitus Lungs-clear to auscultation bilaterally Heart-normal heart sounds 1 and 2, no murmurs Abdomen-obese, bowel sounds are present Extremities-warm and well perfused, peripheral pulses present Neuro-oriented 3, no focal neurological deficits Current Inpatient Medications Medications (Trade) Dose Ordered Sig/Sukhdeep Route Start Time Stop Time Status Last Admin Dose Admin Acetaminophen (Tylenol Tab) 650 mg Q4H PRN PO 09/18/17 04:00 10/18/17 03:59 09/25/17 08:09 650 MG Al Hydrox/Mg Hydrox/Simethicone (Maalox Max Susp) 15 ml Q4H PRN PO 09/18/17 04:00 10/18/17 03:59 Polyethylene (Miralax Powder Packet) 17 gm DAILY PRN PO 09/18/17 04:00 10/18/17 03:59 09/19/17 13:37 17 GM Ondansetron HCl (Zofran Inj) 4 mg Q6H PRN IV 09/18/17 04:00 10/18/17 03:59 09/26/17 11:31 4 MG Aspirin (Ecotrin Tab) 81 mg DAILY PO 09/18/17 08:00 10/18/17 08:59 10/01/17 09:07 81 MG Diclofenac Sodium (Voltaren 1% Top Gel) 1 appln QID EXT 09/18/17 08:00 10/18/17 08:59 10/01/17 09:05 1 APPLN Fluocinonide (Lidex Oint) 1 appln BID PRN EXT 09/18/17 04:00 10/18/17 03:59 09/29/17 08:45 1 APPLN Acetaminophen/ Hydrocodone Bitart ([place] 5/325 Tab) 1 tab BID PRN PO 09/18/17 04:00 10/02/17 03:59 09/30/17 22:00 1 TAB Loratadine (Claritin Tab) 10 mg DAILY PO 09/18/17 08:00 10/18/17 08:59 10/01/17 09:06 10 MG Metoprolol Succinate (Toprol Xl Tab) 25 mg DAILY PO 09/18/17 08:00 10/18/17 08:59 10/01/17 09:06 25 MG Nitroglycerin (Nitrostat Tab) 0.4 mg PRN UT 09/18/17 04:00 10/18/17 03:59 09/21/17 08:34 0.4 MG Nystatin (Mycostatin Powder) 1 appln BID EXT 09/18/17 08:00 10/18/17 08:59 10/01/17 09:05 1 APPLN Ascorbic Acid (Vitamin C Tab) 250 mg DAILY PO 09/18/17 08:00 10/18/17 08:59 10/01/17 09:06 250 MG Cholecalciferol (Vitamin D Tab) 2,000 inter.unit DAILY PO 09/18/17 08:00 10/18/17 08:59 10/01/17 09:07 2,000 INTER.UNIT Ferrous Sulfate (Feosol Tab) 325 mg DAILY PO 09/18/17 08:00 10/18/17 08:59 10/01/17 09:06 325 MG Folic Acid (Folvite Tab) 800 mcg DAILY PO 09/18/17 08:00 10/18/17 08:59 10/01/17 09:05 800 MCG Pantoprazole Sodium (Protonix Tab) 40 mg DAILY PO 09/18/17 08:00 10/18/17 08:59 10/01/17 09:06 40 MG Miscellaneous (Iv Fluids Completed) 1 ea PRN PRN N/A 09/18/17 04:45 09/18/18 04:44 Miconazole Nitrate (Desenex Powder) 1 appln PRN PRN EXT 09/18/17 09:00 10/18/17 08:59 09/30/17 21:45 1 APPLN Polyethylene (Miralax Powder Packet) 17 gm TID PO 09/20/17 20:00 10/20/17 19:59 09/28/17 08:32 17 GM Duloxetine HCl (Cymbalta Cap) 60 mg QAM PO 09/22/17 08:00 10/22/17 07:59 10/01/17 09:07 60 MG Bupropion HCl (Wellbutrin-Sr Tab) 200 mg [id number] PO 09/24/17 07:00 10/18/17 08:59 10/01/17 06:29 200 MG Hydroxyzine HCl (Vistaril Tab) 50 mg HS PRN PO 09/24/17 07:15 10/24/17 07:14 09/30/17 21:51 50 MG Hydroxyzine HCl (Vistaril Tab) 25 mg Q4 PRN PO 09/24/17 10:45 10/24/17 10:44 Ertapenem (Consult) 1 ea UD PRN N/A 09/27/17 09:15 10/27/17 09:14 Heparin Sodium (Porcine) (Heparin Sq 5000 Unit/0.5ml) 5,000 unit Q8 SQ 09/27/17 14:00 10/27/17 13:59 10/01/17 06:02 5,000 UNIT Baclofen (Lioresal Tab) 10 mg TID PO 09/27/17 14:00 10/27/17 13:59 10/01/17 09:05 10 MG Gabapentin (Neurontin Cap) 100 mg BID PO 09/27/17 09:30 10/27/17 09:29 09/30/17 21:50 100 MG Ertapenem 1 gm/ Sodium Chloride 50 ml @ 100 mls/hr Q24H IV 09/27/17 16:00 10/11/17 15:59 09/30/17 15:26 100 MLS/HR Triamcinolone Acetonide (Kenalog 0.1% Cream) 1 appln BID EXT 09/27/17 20:00 10/18/17 03:59 10/01/17 09:05 1 APPLN Ipratropium [place] (Atrovent 0.02% 0.5MG/2.5ML Neb) 0.5 mg Q4R PRN INH 09/29/17 13:00 10/29/17 12:59 Levalbuterol (Xopenex 1.25MG/ 0.5ML Neb) 1.25 mg Q4R PRN INH 09/29/17 13:00 10/29/17 12:59 Lorazepam (Ativan Inj) 0.5 mg Q6H PRN IV 09/30/17 10:30 10/30/17 10:29 09/30/17 10:36 0.5 MG Lorazepam 0.5 mg/ Syringe 1 ml @ 1 mls/min Q6H PRN IV 10/01/17 00:45 10/31/17 00:44 Last 24 Hours Test 10/01/17 07:29 White Blood Count 10.95 K/uL Red Blood Count 3.34 M/uL Hemoglobin 9.8 g/dL Hematocrit 30.8 % Mean Corpuscular Volume 92.2 fL Mean Corpuscular Hemoglobin 29.3 pg Mean Corpuscular Hemoglobin Concent 31.8 g/dl Platelet Count 223 K/uL Mean Platelet Volume 10.4 fL Neutrophils (%) (Auto) 65.4 % Lymphocytes (%) (Auto) 17.9 % Monocytes (%) (Auto) 7.5 % Eosinophils (%) (Auto) 1.6 % Basophils (%) (Auto) 0.4 % Neutrophils # (Auto) 7.17 K/uL Lymphocytes # (Auto) 1.96 K/uL Monocytes # (Auto) 0.82 K/uL Eosinophils # (Auto) 0.17 K/uL Basophils # (Auto) 0.04 K/uL RDW Standard Deviation 58.2 fL RDW Coefficient of Variation 17.4 % Immature Granulocyte % (Auto) 7.2 % Immature Granulocyte # (Auto) 0.79 K/uL Sodium Level 139 mmol/L Potassium Level 4.9 mmol/L Chloride Level 109 mmol/L Carbon Dioxide Level 23 mmol/L Anion Gap 7.0 mmol/L Blood Urea Nitrogen 25 mg/dl Creatinine 1.33 mg/dl Est Creatinine Clear Calc Drug Dose 63.3 ml/min Estimated GFR () 50.2 Estimated GFR (Non- 43.3 BUN/Creatinine Ratio 19.1 Random Glucose 75 mg/dl Calcium Level 7.5 mg/dl Assessment & Plan This is a 62-year-old female with the history of hypertension, obesity valvular heart disease and prior episodes of acute kidney injury was admitted with gram- negative bacteremia being evaluated for acute kidney injury. 1. Acute kidney injury: Etiology of acute kidney injury is likely ischemic ATN in setting of sepsis. Patient with admission creatinine of 1.2. Creatinine is down trending to 1.3 today. She has no indication for dialysis. Management of ATN is supportive. Monitor renal function with daily BMP and renally dose medications for current GFR. Avoid nephrotoxins such as contrast and NSAIDs 2. Hypertension: Blood pressure is well controlled. 3. Metabolic acidosis: She does have a mild metabolic acidosis in setting of acute kidney injury. Anticipate improvement with the renal recovery 4. Hyponatremia: Improved. Fluid restriction can be increased to 1.5 L daily
--- NOTE | 2017-10-01 11:46 | Progress Note ---
Medicine Progress Note Date & Time of Visit: Oct 01, 2017 at 11:46. Subjective seen resting in bed, not in distress somewhat tearful- patient states family members who promised to visit cannot come today patient reassured no dyspnea back pain better today denies other symptoms Objective Last 8 Hrs Date Time Temp Pulse Resp B/P (MAP) Pulse Ox O2 Delivery O2 Flow Rate FiO2 10/01/17 08:00 98 Room Air 10/01/17 07:52 36.5 79 16 157/82 (107) 98 Room Air Physical Exam: General- oriented x 3, not in distress, speaks in sentences with no effort Eyes- anicteric Neck- no JVD Lungs- clear breath sounds bilaterally, no rales/wheezes Heart- regular rhythm; no murmur, normal rate Abdomen- normal bowel sounds, soft, nontender bilateral inner thigh blisters/lesions- healing/drying up wel Extremities- no pretibial edema, no calf tenderness Neuro- alert, oriented x 3; no gross focal deficits Skin- warm & dry Laboratory Results: Last 24 Hours Test 10/01/17 07:29 White Blood Count 10.95 K/uL Red Blood Count 3.34 M/uL Hemoglobin 9.8 g/dL Hematocrit 30.8 % Mean Corpuscular Volume 92.2 fL Mean Corpuscular Hemoglobin 29.3 pg Mean Corpuscular Hemoglobin Concent 31.8 g/dl Platelet Count 223 K/uL Mean Platelet Volume 10.4 fL Neutrophils (%) (Auto) 65.4 % Lymphocytes (%) (Auto) 17.9 % Monocytes (%) (Auto) 7.5 % Eosinophils (%) (Auto) 1.6 % Basophils (%) (Auto) 0.4 % Neutrophils # (Auto) 7.17 K/uL Lymphocytes # (Auto) 1.96 K/uL Monocytes # (Auto) 0.82 K/uL Eosinophils # (Auto) 0.17 K/uL Basophils # (Auto) 0.04 K/uL RDW Standard Deviation 58.2 fL RDW Coefficient of Variation 17.4 % Immature Granulocyte % (Auto) 7.2 % Immature Granulocyte # (Auto) 0.79 K/uL Sodium Level 139 mmol/L Potassium Level 4.9 mmol/L Chloride Level 109 mmol/L Carbon Dioxide Level 23 mmol/L Anion Gap 7.0 mmol/L Blood Urea Nitrogen 25 mg/dl Creatinine 1.33 mg/dl Est Creatinine Clear Calc Drug Dose 63.3 ml/min Estimated GFR () 50.2 Estimated GFR (Non- 43.3 BUN/Creatinine Ratio 19.1 Random Glucose 75 mg/dl Calcium Level 7.5 mg/dl Assessment & Plan BACK PAIN, SPINAL STENOSIS, L5-S 1 BULGING DISC MRI lumbar spine demonstrated spinal stenosis and bulging disc L5-S1. Ortho consult with Dr. Nesbitt; conservative management recommended. Pain Management consulted and will see patient in clinic for follow-up. Received Medrol taper. Continue [place]acle PRN Gabapentin 300mg BID--> dose reduced to 100mg due to drowsiness Baclofen Added appreciate Pain Mgt recommendations --improving now E COLI ESBL, UTI AND BACTEREMIA 09/25/17: (+) fever of 39, hypotension urine culture: E COLI ESBL blood cultures: : E COLI ESBL repeat blood cultures: E COLI ESBL repeat blood cultures; negative so far Changed Ceftri --> Ertapenem Day 5 hold Cellcept ID consulted, appreciate the recommendations will need at least 14 days of IV Ertapenem ID ff up as outpatient ACUTE RENAL FAILURE likely pre renal etiology, ATN from infection crea 1.9--> 2.5 --> 1.89 DC IV as patient showing signs of congestion d/c Lisinopril Renal ultrasound unremarkable - Nephrology consulted Sodium bicarbonate 3 times daily ordered --> discontinued - crea further improving--> 1.3 -Appreciate nephrology service recommendations Possible acute on chronic diastolic CHF noted after being given IV NSS for hypotension and acute renal failure fluids discontinued, resolved- now euvolemic HYPOTENSION likely from dehydration resolved hold Amlodipine ANEMIA, THROMBOCYTOPENIA likely from Bone Marrow Suppression secondary to Infection HIT Ab negative Improving HYPERTENSION lisinopril, amlodipine on hold continue Metoprolol GERD Continue PPI. BULLOUS PEMPHIGOID BILATERAL GROIN WOUNDS HOLD mycophenolate mofetil in light of fever, underlying infection (day 2) on denosumab as outpatient discussed with derm, agree with holding Cellcept continue Triamcinoline BID Wound care consulted MORBID OBESITY Wt 134 kg, BMI 47.7. AHA diet. CONSTIPATION Bowel regimen as ordered. DEPRESSION Psych consulted. Arrangements made for outpatient follow-up. Very anxious / depressed / chronic back pain. Increased duloxetine to 60 mg daily. -- mood improving CHEST PAIN Atypical chest pain. EKG showed NSR, no acute changes. D-dimer elevated, but CTA of chest negative for PE and venous duplex of lower extremities negative for DVT. VTE PROPHYLAXIS SQ heparin. Ambulate. DISPOSITION management of infection as noted above Unable to perform ADLs independently or comfortably. Will probably need skilled care. Case Management consulted. Family Medicine follow-up with Dr. Marcus Talavera. . Current Inpatient Medications: Current Inpatient Medications Medications (Trade) Dose Ordered Sig/Sukhdeep Route Start Time Stop Time Status Last Admin Dose Admin Acetaminophen (Tylenol Tab) 650 mg Q4H PRN PO 09/18/17 04:00 10/18/17 03:59 09/25/17 08:09 650 MG Al Hydrox/Mg Hydrox/Simethicone (Maalox Max Susp) 15 ml Q4H PRN PO 09/18/17 04:00 10/18/17 03:59 Polyethylene (Miralax Powder Packet) 17 gm DAILY PRN PO 09/18/17 04:00 10/18/17 03:59 09/19/17 13:37 17 GM Ondansetron HCl (Zofran Inj) 4 mg Q6H PRN IV 09/18/17 04:00 10/18/17 03:59 09/26/17 11:31 4 MG Aspirin (Ecotrin Tab) 81 mg DAILY PO 09/18/17 08:00 10/18/17 08:59 10/01/17 09:07 81 MG Diclofenac Sodium (Voltaren 1% Top Gel) 1 appln QID EXT 09/18/17 08:00 10/18/17 08:59 10/01/17 09:05 1 APPLN Fluocinonide (Lidex Oint) 1 appln BID PRN EXT 09/18/17 04:00 10/18/17 03:59 09/29/17 08:45 1 APPLN Acetaminophen/ Hydrocodone Bitart ([place] 5/325 Tab) 1 tab BID PRN PO 09/18/17 04:00 10/02/17 03:59 09/30/17 22:00 1 TAB Loratadine (Claritin Tab) 10 mg DAILY PO 09/18/17 08:00 10/18/17 08:59 10/01/17 09:06 10 MG Metoprolol Succinate (Toprol Xl Tab) 25 mg DAILY PO 09/18/17 08:00 10/18/17 08:59 8/12/18 09:06 25 MG Nitroglycerin (Nitrostat Tab) 0.4 mg PRN UT 09/18/17 04:00 10/18/17 03:59 09/21/17 08:34 0.4 MG Nystatin (Mycostatin Powder) 1 appln BID EXT 09/18/17 08:00 10/18/17 08:59 10/01/17 09:05 1 APPLN Ascorbic Acid (Vitamin C Tab) 250 mg DAILY PO 09/18/17 08:00 10/18/17 08:59 10/01/17 09:06 250 MG Cholecalciferol (Vitamin D Tab) 2,000 inter.unit DAILY PO 09/18/17 08:00 10/18/17 08:59 10/01/17 09:07 2,000 INTER.UNIT Ferrous Sulfate (Feosol Tab) 325 mg DAILY PO 09/18/17 08:00 10/18/17 08:59 10/01/17 09:06 325 MG Folic Acid (Folvite Tab) 800 mcg DAILY PO 09/18/17 08:00 10/18/17 08:59 10/01/17 09:05 800 MCG Pantoprazole Sodium (Protonix Tab) 40 mg DAILY PO 09/18/17 08:00 10/18/17 08:59 10/01/17 09:06 40 MG Miscellaneous (Iv Fluids Completed) 1 ea PRN PRN N/A 09/18/17 04:45 09/18/18 04:44 Miconazole Nitrate (Desenex Powder) 1 appln PRN PRN EXT 09/18/17 09:00 10/18/17 08:59 09/30/17 21:45 1 APPLN Polyethylene (Miralax Powder Packet) 17 gm TID PO 09/20/17 20:00 10/20/17 19:59 09/28/17 08:32 17 GM Duloxetine HCl (Cymbalta Cap) 60 mg QAM PO 09/22/17 08:00 10/22/17 07:59 10/01/17 09:07 60 MG Bupropion HCl (Wellbutrin-Sr Tab) 200 mg [id number] PO 09/24/17 07:00 10/18/17 08:59 10/01/17 06:29 200 MG Hydroxyzine HCl (Vistaril Tab) 50 mg HS PRN PO 09/24/17 07:15 10/24/17 07:14 09/30/17 21:51 50 MG Hydroxyzine HCl (Vistaril Tab) 25 mg Q4 PRN PO 09/24/17 10:45 10/24/17 10:44 Ertapenem (Consult) 1 ea UD PRN N/A 09/27/17 09:15 10/27/17 09:14 Heparin Sodium (Porcine) (Heparin Sq 5000 Unit/0.5ml) 5,000 unit Q8 SQ 09/27/17 14:00 10/27/17 13:59 10/01/17 06:02 5,000 UNIT Baclofen (Lioresal Tab) 10 mg TID PO 09/27/17 14:00 10/27/17 13:59 10/01/17 09:05 10 MG Gabapentin (Neurontin Cap) 100 mg BID PO 09/27/17 09:30 10/27/17 09:29 09/30/17 21:50 100 MG Ertapenem 1 gm/ Sodium Chloride 50 ml @ 100 mls/hr Q24H IV 09/27/17 16:00 10/11/17 15:59 09/30/17 15:26 100 MLS/HR Triamcinolone Acetonide (Kenalog 0.1% Cream) 1 appln BID EXT 09/27/17 20:00 10/18/17 03:59 10/01/17 09:05 1 APPLN Ipratropium [place] (Atrovent 0.02% 0.5MG/2.5ML Neb) 0.5 mg Q4R PRN INH 09/29/17 13:00 10/29/17 12:59 Levalbuterol (Xopenex 1.25MG/ 0.5ML Neb) 1.25 mg Q4R PRN INH 09/29/17 13:00 10/29/17 12:59 Lorazepam (Ativan Inj) 0.5 mg Q6H PRN IV 09/30/17 10:30 10/30/17 10:29 09/30/17 10:36 0.5 MG Lorazepam 0.5 mg/ Syringe 1 ml @ 1 mls/min Q6H PRN IV 10/01/17 00:45 10/31/17 00:44
[2017-10-01] MEDS: GABAPENTIN 100 MG CAP PO SCH ×2 (12:24→20:16)
[2017-10-01] MEDS: HYDROCODONE/ACETAMIN 5/325MG TAB PO PRN ×2 (13:40→19:50)
--- NOTE | 2017-10-01 13:43 | Progress Note ---
Medicine Progress Note Date & Time of Visit: Sep 30, 2017 at 13:40. Subjective seen resting in bed, comfortable drowsy, received Ativan this AM after being anxious before/while being on the bedside chair denies active back pain on my exam denies chest pain , dyspnea no other symptoms Objective Last 8 Hrs Date Time Temp Pulse Resp B/P (MAP) Pulse Ox O2 Delivery O2 Flow Rate FiO2 09/30/17 12:18 85 20 119/83 (95) Room Air 09/30/17 10:50 Room Air 09/30/17 08:23 36.6 80 20 135/84 (101) 90 09/30/17 07:10 91 16 94 Room Air Physical Exam: General- oriented x 3, not in distress, speaks in sentences with no effort Eyes- anicteric Neck- no JVD Lungs- clear breath sounds bilaterally, no rales/wheezes Heart- regular rhythm; no murmur, normal rate Abdomen- normal bowel sounds, soft, nontender Extremities- no pretibial edema, no calf tenderness Neuro- alert, oriented x 3; no gross focal deficits Skin- warm & dry Laboratory Results: Last 24 Hours Test 09/30/17 06:04 White Blood Count 13.05 K/uL Red Blood Count 3.11 M/uL Hemoglobin 8.7 g/dL Hematocrit 28.5 % Mean Corpuscular Volume 91.6 fL Mean Corpuscular Hemoglobin 28.0 pg Mean Corpuscular Hemoglobin Concent 30.5 g/dl Platelet Count 200 K/uL Mean Platelet Volume 10.9 fL Neutrophils (%) (Auto) 74.6 % Lymphocytes (%) (Auto) 12.3 % Monocytes (%) (Auto) 7.5 % Eosinophils (%) (Auto) 1.4 % Basophils (%) (Auto) 0.2 % Neutrophils # (Auto) 9.74 K/uL Lymphocytes # (Auto) 1.61 K/uL Monocytes # (Auto) 0.98 K/uL Eosinophils # (Auto) 0.18 K/uL Basophils # (Auto) 0.02 K/uL RDW Standard Deviation 57.4 fL RDW Coefficient of Variation 17.3 % Immature Granulocyte % (Auto) 4.0 % Immature Granulocyte # (Auto) 0.52 K/uL Red Blood Cell Morphology Unremarkable Sodium Level 136 mmol/L Potassium Level 4.8 mmol/L Chloride Level 111 mmol/L Carbon Dioxide Level 21 mmol/L Anion Gap 4.0 mmol/L Blood Urea Nitrogen 30 mg/dl Creatinine 1.56 mg/dl Est Creatinine Clear Calc Drug Dose 54.0 ml/min Estimated GFR () 41.4 Estimated GFR (Non- 35.7 BUN/Creatinine Ratio 19.0 Random Glucose 74 mg/dl Calcium Level 7.1 mg/dl Assessment & Plan BACK PAIN, SPINAL STENOSIS, L5-S 1 BULGING DISC MRI lumbar spine demonstrated spinal stenosis and bulging disc L5-S1. Ortho consult with Dr. Nesbitt; conservative management recommended. Pain Management consulted and will see patient in clinic for follow-up. Received Medrol taper. Continue [place] PRN added Gabapentin 300mg BID--> dose reduced to 100mg due to drowsiness Baclofen Added appreciate Pain Mgt recommendations -- monitor E COLI ESBL, UTI AND BACTEREMIA 09/25/17: (+) fever of 39, hypotension urine culture: E COLI ESBL blood cultures: : E COLI ESBL repeat blood cultures: E COLI ESBL repeat blood cultures; negative so far Changed Ceftri to Ertapenem Day 4 hold Cellcept ID consulted, appreciate the recommendations ACUTE RENAL FAILURE likely pre renal etiology crea 1.9--> 2.5 --> 1.89--> 1.5 IV NSS discontinued as patient was showing signs of congestion d/c Lisinopril Renal ultrasound unremarkable - Nephrology consulted Sodium bicarbonate 3 times daily ordered --> discontinued -Appreciate nephrology service recommendations Possible acute on chronic diastolic CHF -Has been on and assess for hypotension and acute renal failure Hold IV NSS Monitor closely - resolved HYPOTENSION likely from dehydration resolved hold Amlodipine ANEMIA, 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 BULLOUS PEMPHIGOID BILATERAL GROIN WOUNDS HOLD mycophenolate mofetil in light of fever, underlying infection on denosumab as outpatient discussed with derm, agree with holding Cellcept continue Triamcinoline BID Wound care consulted MORBID OBESITY Wt 134 kg, BMI 47.7. AHA diet. CONSTIPATION Bowel regimen as ordered. DEPRESSION Psych consulted. Arrangements made for outpatient follow-up. Very anxious / depressed / chronic back pain. Increased duloxetine to 60 mg daily. CHEST PAIN Atypical chest pain. EKG showed NSR, no acute changes. D-dimer elevated, but CTA of chest negative for PE and venous duplex of lower extremities negative for DVT. VTE PROPHYLAXIS SQ heparin. Ambulate. DISPOSITION management of infection as noted above Unable to perform ADLs independently or comfortably. Will probably need skilled care. Case Management consulted. Family Medicine follow-up with Dr. Marcus Talavera. . Current Inpatient Medications: Current Inpatient Medications Medications (Trade) Dose Ordered Sig/Sukhdeep Route Start Time Stop Time Status Last Admin Dose Admin Acetaminophen (Tylenol Tab) 650 mg Q4H PRN PO 09/18/17 04:00 10/18/17 03:59 09/25/17 08:09 650 MG Al Hydrox/Mg Hydrox/Simethicone (Maalox Max Susp) 15 ml Q4H PRN PO 09/18/17 04:00 10/18/17 03:59 Polyethylene (Miralax Powder Packet) 17 gm DAILY PRN PO 09/18/17 04:00 10/18/17 03:59 09/19/17 13:37 17 GM Ondansetron HCl (Zofran Inj) 4 mg Q6H PRN IV 09/18/17 04:00 10/18/17 03:59 09/26/17 11:31 4 MG Aspirin (Ecotrin Tab) 81 mg DAILY PO 09/18/17 08:00 10/18/17 08:59 09/30/17 08:43 81 MG Diclofenac Sodium (Voltaren 1% Top Gel) 1 appln QID EXT 09/18/17 08:00 10/18/17 08:59 09/30/17 11:55 1 APPLN Fluocinonide (Lidex Oint) 1 appln BID PRN EXT 09/18/17 04:00 10/18/17 03:59 09/29/17 08:45 1 APPLN Acetaminophen/ Hydrocodone Bitart ([place] 5/325 Tab) 1 tab BID PRN PO 09/18/17 04:00 10/02/17 03:59 09/30/17 11:55 1 TAB Loratadine (Claritin Tab) 10 mg DAILY PO 09/18/17 08:00 10/18/17 08:59 09/30/17 08:43 10 MG Metoprolol Succinate (Toprol Xl Tab) 25 mg DAILY PO 09/18/17 08:00 10/18/17 08:59 09/30/17 08:44 25 MG Nitroglycerin (Nitrostat Tab) 0.4 mg PRN UT 09/18/17 04:00 10/18/17 03:59 09/21/17 08:34 0.4 MG Nystatin (Mycostatin Powder) 1 appln BID EXT 09/18/17 08:00 10/18/17 08:59 09/30/17 08:42 1 APPLN Ascorbic Acid (Vitamin C Tab) 250 mg DAILY PO 09/18/17 08:00 10/18/17 08:59 09/30/17 08:45 250 MG Cholecalciferol (Vitamin D Tab) 2,000 inter.unit DAILY PO 09/18/17 08:00 10/18/17 08:59 09/30/17 08:45 2,000 INTER.UNIT Ferrous Sulfate (Feosol Tab) 325 mg DAILY PO 09/18/17 08:00 10/18/17 08:59 09/30/17 08:43 325 MG Folic Acid (Folvite Tab) 800 mcg DAILY PO 09/18/17 08:00 10/18/17 08:59 09/30/17 08:44 800 MCG Pantoprazole Sodium (Protonix Tab) 40 mg DAILY PO 09/18/17 08:00 10/18/17 08:59 09/30/17 08:44 40 MG Miscellaneous (Iv Fluids Completed) 1 ea PRN PRN N/A 09/18/17 04:45 09/18/18 04:44 Miconazole Nitrate (Desenex Powder) 1 appln PRN PRN EXT 09/18/17 09:00 10/18/17 08:59 09/29/17 08:45 1 APPLN Polyethylene (Miralax Powder Packet) 17 gm TID PO 09/20/17 20:00 10/20/17 19:59 09/28/17 08:32 17 GM Duloxetine HCl (Cymbalta Cap) 60 mg QAM PO 09/22/17 08:00 10/22/17 07:59 09/30/17 08:43 60 MG Bupropion HCl (Wellbutrin-Sr Tab) 200 mg [id number] PO 09/24/17 07:00 10/18/17 08:59 09/30/17 06:28 200 MG Hydroxyzine HCl (Vistaril Tab) 50 mg HS PRN PO 09/24/17 07:15 10/24/17 07:14 09/30/17 10:26 50 MG Hydroxyzine HCl (Vistaril Tab) 25 mg Q4 PRN PO 09/24/17 10:45 10/24/17 10:44 Ertapenem (Consult) 1 ea UD PRN N/A 09/27/17 09:15 10/27/17 09:14 Heparin Sodium (Porcine) (Heparin Sq 5000 Unit/0.5ml) 5,000 unit Q8 SQ 09/27/17 14:00 10/27/17 13:59 09/29/17 14:15 5,000 UNIT Baclofen (Lioresal Tab) 10 mg TID PO 09/27/17 14:00 10/27/17 13:59 09/30/17 08:44 10 MG Gabapentin (Neurontin Cap) 100 mg BID PO 09/27/17 09:30 10/27/17 09:29 09/30/17 08:44 100 MG Ertapenem 1 gm/ Sodium Chloride 50 ml @ 100 mls/hr Q24H IV 09/27/17 16:00 10/11/17 15:59 09/29/17 15:55 100 MLS/HR Triamcinolone Acetonide (Kenalog 0.1% Cream) 1 appln BID EXT 09/27/17 20:00 10/18/17 03:59 09/30/17 08:42 1 APPLN Ipratropium [place] (Atrovent 0.02% 0.5MG/2.5ML Neb) 0.5 mg Q4R PRN INH 09/29/17 13:00 10/29/17 12:59 Levalbuterol (Xopenex 1.25MG/ 0.5ML Neb) 1.25 mg Q4R PRN INH 09/29/17 13:00 10/29/17 12:59 Lorazepam (Ativan Inj) 0.5 mg Q6H PRN IV 09/30/17 10:30 10/30/17 10:29 09/30/17 10:36 0.5 MG
[2017-10-01 15:26] VITALS: BP 128/72; PULSE 83; TEMP 36.4; O2SAT 97
[2017-10-01] MEDS: ERTAPENEM IV 1 GM in SODIUM CHLOR 0.9% AD-VAN 50ML IV SCH (15:53)
[2017-10-01 16:00] VITALS: O2SAT 97
[2017-10-01 23:05] VITALS: BP 128/75; PULSE 80; TEMP 36.6; O2SAT 95
[2017-10-02] MEDS: HEPARIN SOD 5000 UNIT/0.5 ML CARP SQ SCH ×3 (06:08→21:49)
[2017-10-02] MEDS: BuPROPion SR 100 MG TABCR PO SCH ×2 (06:10→14:47)
[2017-10-02 07:37] VITALS: BP 144/82; PULSE 82; TEMP 36.8; O2SAT 95
[2017-10-02] MEDS: FERROUS SULFATE 325 MG TAB PO SCH (07:48)
[2017-10-02] MEDS: POLYETHYLENE (MIRALAX) 17 GM PACK PO SCH ×3 (07:48→20:00)
[2017-10-02] MEDS: ASCORBIC ACID 500 MG TAB PO SCH (07:48)
[2017-10-02] MEDS: GABAPENTIN 100 MG CAP PO SCH ×2 (07:48→21:49)
[2017-10-02] MEDS: FoLIC ACID TAB 400 MCG TAB PO SCH (07:48)
[2017-10-02] MEDS: ASPIRIN 81 MG ECTAB PO SCH (07:49)
[2017-10-02] MEDS: BACLOFEN 10 MG TAB PO SCH ×3 (07:50→21:49)
[2017-10-02] MEDS: CHOLECALCIFEROL 1000 INTER.UNIT TAB PO SCH (07:50)
[2017-10-02] MEDS: METOPROLOL SUCC 25MG EXT REL TAB PO SCH (07:50)
[2017-10-02] MEDS: PANTOprazole SOD 40 MG TAB PO SCH (07:50)
[2017-10-02] MEDS: DICLOFENAC SOD 1% GEL 100 GM TUBE EXT SCH ×4 (07:50→20:00)
[2017-10-02] MEDS: DULOXETINE HCL 60 MG CAP PO SCH (07:50)
[2017-10-02] MEDS: LORATADINE 10 MG TAB PO SCH (07:50)
[2017-10-02] MEDS: NYSTATIN POWDER 15GM BTL EXT SCH ×2 (07:51→21:48)
[2017-10-02] MEDS: TRIAMCINOLONE ACET 0.1% CR 15 GM TUBE EXT SCH ×2 (07:51→21:48)
[2017-10-02] MEDS: HYDROCODONE/ACETAMIN 5/325MG TAB PO PRN ×2 (12:32→18:25)
[2017-10-02 13:09] LABS: CALCIUM 7.6 mg/dl (8.5-10.1); CREATININE 1.07 mg/dl (0.60-1.20)
[2017-10-02 15:19] VITALS: BP 145/82; PULSE 81; TEMP 36.9; O2SAT 97
[2017-10-02] MEDS: ERTAPENEM IV 1 GM in SODIUM CHLOR 0.9% AD-VAN 50ML IV SCH (15:47)
[2017-10-02 23:25] VITALS: BP 138/78; PULSE 80; TEMP 36.7; O2SAT 94
[2017-10-03 06:10] LABS: HEMATOCRIT 29.9 % (37-47); HEMOGLOBIN 9.4 g/dL (12.0-16.0); MEAN CELL VOLUME 92.3 fL (80-100); MEAN CORPUSCULAR HGB CONC 31.4 g/dl (32-36); MEAN PLATELET VOLUME 10.6 fL (7.4-10.4); PLATELET COUNT 263 K/uL (130-400); RED CELL DISTRIBUTION WIDTH CV 17.4 % (11.5-14.5); RED CELL DISTRIBUTION WIDTH SD 58.7 fL (36.4-46.3); WHITE BLOOD COUNT 9.18 K/uL (4.8-10.8)
[2017-10-03] MEDS: BuPROPion SR 100 MG TABCR PO SCH ×2 (06:24→14:17)
[2017-10-03] MEDS: HEPARIN SOD 5000 UNIT/0.5 ML CARP SQ SCH ×2 (06:26→14:18)
[2017-10-03 06:46] LABS: CALCIUM 7.7 mg/dl (8.5-10.1); CREATININE 0.98 mg/dl (0.60-1.20); POTASSIUM 5.1 mmol/L (3.5-5.1)
[2017-10-03 07:44] VITALS: BP 153/82; PULSE 83; TEMP 36.7; O2SAT 96
[2017-10-03] MEDS: GABAPENTIN 100 MG CAP PO SCH (09:07)
[2017-10-03] MEDS: NYSTATIN POWDER 15GM BTL EXT SCH (09:07)
[2017-10-03] MEDS: DICLOFENAC SOD 1% GEL 100 GM TUBE EXT SCH ×2 (09:07→12:21)
[2017-10-03] MEDS: DULOXETINE HCL 60 MG CAP PO SCH (09:08)
[2017-10-03] MEDS: ASCORBIC ACID 500 MG TAB PO SCH (09:08)
[2017-10-03] MEDS: ASPIRIN 81 MG ECTAB PO SCH (09:08)
[2017-10-03] MEDS: FERROUS SULFATE 325 MG TAB PO SCH (09:08)
[2017-10-03] MEDS: CHOLECALCIFEROL 1000 INTER.UNIT TAB PO SCH (09:08)
[2017-10-03] MEDS: LORATADINE 10 MG TAB PO SCH (09:09)
[2017-10-03] MEDS: PANTOprazole SOD 40 MG TAB PO SCH (09:09)
[2017-10-03] MEDS: FoLIC ACID TAB 400 MCG TAB PO SCH (09:09)
[2017-10-03] MEDS: TRIAMCINOLONE ACET 0.1% CR 15 GM TUBE EXT SCH (09:09)
[2017-10-03] MEDS: METOPROLOL SUCC 25MG EXT REL TAB PO SCH (09:09)
[2017-10-03] MEDS: BACLOFEN 10 MG TAB PO SCH ×2 (09:10→14:17)
[2017-10-03] MEDS: POLYETHYLENE (MIRALAX) 17 GM PACK PO SCH ×2 (09:14→14:00)
[2017-10-03] MEDS: ONDANSETRON INJ 2 MG/ML 2 ML VIAL IV PRN (09:18)
[2017-10-03] MEDS ORDERED: ALUMINUM/MAGNESIUM SUSP 30 ML UDC PO STA (09:37)
[2017-10-03] MEDS ORDERED: ALUMINUM/MAGNESIUM SUSP 30 ML UDC PO PRN (09:45)
--- NOTE | 2017-10-03 09:46 | Progress Note ---
Medicine Progress Note Date & Time of Visit: Oct 03, 2017 at 09:38. Subjective seen resting in bed comfortable having reflux type symptoms this morning no nausea (+) BMs no chest pain, dyspnea, dizziness back pain is improving denies other symptoms Objective Last 8 Hrs Date Time Temp Pulse Resp B/P (MAP) Pulse Ox O2 Delivery O2 Flow Rate FiO2 10/03/17 07:44 36.7 83 16 153/82 (105) 96 Room Air Physical Exam: General- oriented x 3, not in distress, speaks in sentences with no effort Eyes- anicteric Neck- no JVD Lungs- clear breath sounds bilaterally, no rales/wheezes Heart- regular rhythm; no murmur, normal rate Abdomen- normal bowel sounds, soft, nontender, non distended bilateral inner thigh blisters/lesions- healing/drying up well Extremities- no pretibial edema, no calf tenderness Neuro- alert, oriented x 3; no gross focal deficits Skin- warm & dry Laboratory Results: Last 24 Hours Test 10/02/17 12:05 10/03/17 05:34 Sodium Level 138 mmol/L 139 mmol/L Potassium Level 5.0 mmol/L 5.1 mmol/L Chloride Level 109 mmol/L 110 mmol/L Carbon Dioxide Level 21 mmol/L 23 mmol/L Anion Gap 8.0 mmol/L 6.0 mmol/L Blood Urea Nitrogen 16 mg/dl 14 mg/dl Creatinine 1.07 mg/dl 0.98 mg/dl Est Creatinine Clear Calc Drug Dose 78.7 ml/min 85.9 ml/min Estimated GFR () 65.3 72.7 Estimated GFR (Non- 56.4 62.7 BUN/Creatinine Ratio 15.0 14.2 Random Glucose 113 mg/dl 77 mg/dl Calcium Level 7.6 mg/dl 7.7 mg/dl White Blood Count 9.18 K/uL Red Blood Count 3.24 M/uL Hemoglobin 9.4 g/dL Hematocrit 29.9 % Mean Corpuscular Volume 92.3 fL Mean Corpuscular Hemoglobin 29.0 pg Mean Corpuscular Hemoglobin Concent 31.4 g/dl RDW Standard Deviation 58.7 fL RDW Coefficient of Variation 17.4 % Platelet Count 263 K/uL Mean Platelet Volume 10.6 fL Assessment & Plan BACK PAIN, SPINAL STENOSIS, L5-S 1 BULGING DISC MRI lumbar spine demonstrated spinal stenosis and bulging disc L5-S1. Ortho consult with Dr. Nesbitt; conservative management recommended. Pain Management consulted and will see patient in clinic for follow-up. Received Medrol taper. Continue [place] PRN Gabapentin 300mg BID--> dose reduced to 100mg due to drowsiness Baclofen Added --improving daily outpatient follow up with [facility] E COLI ESBL, UTI AND BACTEREMIA 09/25/17: (+) fever of 39, hypotension urine culture: E COLI ESBL blood cultures: : E COLI ESBL repeat blood cultures: E COLI ESBL repeat blood cultures; negative so far Changed Ceftri --> Ertapenem Day 7 hold Cellcept ID consulted Dr. Valencia will need total of 14 days of IV Ertapenem continue Ertapenem IV x 7 more days ID ff up as outpatient ACUTE RENAL FAILURE likely pre renal etiology, ATN from infection crea 1.9--> 2.5 --> 1.89 given IV NSS d/c Lisinopril Renal ultrasound unremarkable - Nephrology consulted Sodium bicarbonate 3 times daily given - crea further improving--> 1.3 - monitor crea Possible acute on chronic diastolic CHF noted after being given IV NSS for hypotension and acute renal failure fluids discontinued, resolved - now euvolemic - monitor HYPOTENSION likely from dehydration resolved ANEMIA, THROMBOCYTOPENIA likely from Bone Marrow Suppression secondary to Infection HIT Ab negative Improving HYPERTENSION continue Metoprolol, Amlodipine GERD Continue PPI. BULLOUS PEMPHIGOID BILATERAL GROIN WOUNDS HOLD mycophenolate mofetil in light of infection on denosumab as outpatient discussed with patient's [facility] Sample Tester Dr. Asia Desouza, agree with holding Cellcept continue Triamcinoline BID Wound care consulted follow up with Dr. Desouza in 1 week MORBID OBESITY Wt 134 kg, BMI 47.7. AHA diet. CONSTIPATION Bowel regimen as ordered. DEPRESSION Psych consulted. Arrangements made for outpatient follow-up. Very anxious / depressed / chronic back pain. Increased duloxetine to 60 mg daily. -- mood improving -- monitor CHEST PAIN Atypical chest pain. EKG showed NSR, no acute changes. D-dimer elevated, but CTA of chest negative for PE and venous duplex of lower extremities negative for DVT. VTE PROPHYLAXIS SQ heparin. Ambulate. DISPOSITION transfer to [facility] when accepted Family Medicine follow-up with Dr. Marcus Talavera Monday at 10: 55am [facility] in [address] Asia Desouza in 1 week Current Inpatient Medications: Current Inpatient Medications Medications (Trade) Dose Ordered Sig/Sukhdeep Route Start Time Stop Time Status Last Admin Dose Admin Acetaminophen (Tylenol Tab) 650 mg Q4H PRN PO 09/18/17 04:00 10/18/17 03:59 09/25/17 08:09 650 MG Al Hydrox/Mg Hydrox/Simethicone (Maalox Max Susp) 15 ml Q4H PRN PO 09/18/17 04:00 10/18/17 03:59 Polyethylene (Miralax Powder Packet) 17 gm DAILY PRN PO 09/18/17 04:00 10/18/17 03:59 09/19/17 13:37 17 GM Ondansetron HCl (Zofran Inj) 4 mg Q6H PRN IV 09/18/17 04:00 10/18/17 03:59 10/03/17 09:18 4 MG Aspirin (Ecotrin Tab) 81 mg DAILY PO 09/18/17 08:00 10/18/17 08:59 10/03/17 09:08 81 MG Diclofenac Sodium (Voltaren 1% Top Gel) 1 appln QID EXT 09/18/17 08:00 10/18/17 08:59 10/03/17 09:07 1 APPLN Fluocinonide (Lidex Oint) 1 appln BID PRN EXT 09/18/17 04:00 10/18/17 03:59 09/29/17 08:45 1 APPLN Loratadine (Claritin Tab) 10 mg DAILY PO 09/18/17 08:00 10/18/17 08:59 10/03/17 09:09 10 MG Metoprolol Succinate (Toprol Xl Tab) 25 mg DAILY PO 09/18/17 08:00 10/18/17 08:59 10/03/17 09:09 25 MG Nitroglycerin (Nitrostat Tab) 0.4 mg PRN UT 09/18/17 04:00 10/18/17 03:59 09/21/17 08:34 0.4 MG Nystatin (Mycostatin Powder) 1 appln BID EXT 09/18/17 08:00 8/29/18 08:59 10/03/17 09:07 1 APPLN Ascorbic Acid (Vitamin C Tab) 250 mg DAILY PO 09/18/17 08:00 10/18/17 08:59 10/03/17 09:08 250 MG Cholecalciferol (Vitamin D Tab) 2,000 inter.unit DAILY PO 09/18/17 08:00 10/18/17 08:59 10/03/17 09:08 2,000 INTER.UNIT Ferrous Sulfate (Feosol Tab) 325 mg DAILY PO 09/18/17 08:00 10/18/17 08:59 10/03/17 09:08 325 MG Folic Acid (Folvite Tab) 800 mcg DAILY PO 09/18/17 08:00 10/18/17 08:59 10/03/17 09:09 800 MCG Pantoprazole Sodium (Protonix Tab) 40 mg DAILY PO 09/18/17 08:00 10/18/17 08:59 10/03/17 09:09 40 MG Miscellaneous (Iv Fluids Completed) 1 ea PRN PRN N/A 09/18/17 04:45 09/18/18 04:44 Miconazole Nitrate (Desenex Powder) 1 appln PRN PRN EXT 09/18/17 09:00 10/18/17 08:59 09/30/17 21:45 1 APPLN Polyethylene (Miralax Powder Packet) 17 gm TID PO 09/20/17 20:00 10/20/17 19:59 10/02/17 14:46 17 GM Duloxetine HCl (Cymbalta Cap) 60 mg QAM PO 09/22/17 08:00 10/22/17 07:59 10/03/17 09:08 60 MG Bupropion HCl (Wellbutrin-Sr Tab) 200 mg CBC405 PO 09/24/17 07:00 10/18/17 08:59 10/03/17 06:24 200 MG Hydroxyzine HCl (Vistaril Tab) 50 mg HS PRN PO 09/24/17 07:15 10/24/17 07:14 09/30/17 21:51 50 MG Hydroxyzine HCl (Vistaril Tab) 25 mg Q4 PRN PO 09/24/17 10:45 10/24/17 10:44 10/02/17 18:21 25 MG Ertapenem (Consult) 1 ea UD PRN N/A 09/27/17 09:15 10/27/17 09:14 Heparin Sodium (Porcine) (Heparin Sq 5000 Unit/0.5ml) 5,000 unit Q8 SQ 09/27/17 14:00 10/27/17 13:59 10/03/17 06:26 5,000 UNIT Baclofen (Lioresal Tab) 10 mg TID PO 09/27/17 14:00 10/27/17 13:59 10/03/17 09:10 10 MG Gabapentin (Neurontin Cap) 100 mg BID PO 09/27/17 09:30 10/27/17 09:29 10/03/17 09:07 100 MG Ertapenem 1 gm/ Sodium Chloride 50 ml @ 100 mls/hr Q24H IV 09/27/17 16:00 10/11/17 15:59 10/02/17 15:47 100 MLS/HR Triamcinolone Acetonide (Kenalog 0.1% Cream) 1 appln BID EXT 09/27/17 20:00 10/18/17 03:59 10/03/17 09:09 1 APPLN Ipratropium [place] (Atrovent 0.02% 0.5MG/2.5ML Neb) 0.5 mg Q4R PRN INH 09/29/17 13:00 10/29/17 12:59 Levalbuterol (Xopenex 1.25MG/ 0.5ML Neb) 1.25 mg Q4R PRN INH 09/29/17 13:00 10/29/17 12:59 Lorazepam (Ativan Inj) 0.5 mg Q6H PRN IV 09/30/17 10:30 10/30/17 10:29 09/30/17 10:36 0.5 MG Lorazepam 0.5 mg/ Syringe 1 ml @ 1 mls/min Q6H PRN IV 10/01/17 00:45 10/31/17 00:44 10/02/17 16:59 1 MLS/MIN Acetaminophen/ Hydrocodone Bitart ([place] 5/325 Tab) 1 tab Q6H PRN PO 10/02/17 08:00 10/16/17 07:59 10/02/17 18:25 1 TAB Heparin Sodium (Porcine) (Heparin 10 Unit/ ml 5 ml Flush) 5 ml PRN PRN FLUSH 10/03/17 00:45 11/02/17 00:44 10/03/17 05:32 5 ML
[2017-10-03] MEDS ORDERED: TRMCR115 EXT (10:06)
[2017-10-03] MEDS ORDERED: ERTA1INJ IV (10:06)
[2017-10-03] MEDS ORDERED: HYDR-5688 PO ×2 (10:06→10:29)
[2017-10-03] MEDS ORDERED: NRN100 PO (10:06)
[2017-10-03] MEDS ORDERED: CYM60 PO (10:06)
[2017-10-03] MEDS ORDERED: MRLP17 PO (10:06)
[2017-10-03] MEDS ORDERED: HPRIS5M SQ (10:06)
[2017-10-03] MEDS ORDERED: LRS10 PO (10:06)
--- NOTE | 2017-10-03 10:13 | Discharge Instructions ---
Discharge Instructions Date of Service Oct 03, 2017. Admission Reason for Admission: Ambulatory Dysfunction,Severe Low Back Pain Discharge Discharge Diagnosis / Problem: SEVERE LOW BACK PAIN, ESBL E COLI UTI AND BACTEREMIA Discharge Goals Goal(s): Diagnostic testing, Therapeutic intervention Activity Recommendations Activity Level: Assistance Required Therapies: Physical Therapy, Occupational Therapy FALL PRECAUTIONS PLEASE. . Additional Information Patient informed of condition: Yes Advance Directives: No (UNKNOWN) DNR: No (PATIENT IS A FULL CODE) Level of Care: Skilled Communicable Disease: No Prognosis: Stable Instructions / Follow-Up Instructions / Follow-Up PLEASE REFER TO ACCOMPANYING HOSPITAL DISCHARGE SUMMARY FOR FURTHER DETAILS. MONITOR PARTIAL RENAL PROFILE WHILE ON IV ERTAPENEM. CHECK WOUNDS DAILY. Thighs, Groin, buttocks and side skin folds- apply steroid cream as ordered to all open areas, cover heavily draining areas with aquacel ag , change daily and prn. MONITOR BLOOD PRESSURE. CONTINUE PT/OT. FOLLOW UP WITH PRIMARY CARE PHYSICIAN DR. BRENDA RHOADES ON OCTOBER 09, 2017 AT 10:55 AM. FOLLOW UP WITH [facility] DR. WASHINGTON IN 1 WEEK. FOLLOW UP WITH [facility] IN 1 WEEK. Current Hospital Diet Patient's current hospital diet: AHA Diet (Heart Healthy) Discharge Diet Recommended Diet: AHA Diet (Heart Healthy) Procedures Procedures Performed: MIDLINE PLACEMENT LEFT ARM Pending Studies Studies pending at discharge: yes List of pending studies: MONITOR PARTIAL RENAL PROFILE Physician Orders On Transfer Special Precautions: PLEASE REFER TO ACCOMPANYING HOSPITAL DISCHARGE SUMMARY FOR FURTHER DETAILS. MONITOR PARTIAL RENAL PROFILE WHILE ON IV ERTAPENEM. CHECK WOUNDS DAILY. Thighs, Groin, buttocks and side skin folds- apply steroid cream as ordered to all open areas, cover heavily draining areas with aquacel ag , change daily and prn. MONITOR BLOOD PRESSURE. CONTINUE PT/OT. FOLLOW UP WITH PRIMARY CARE PHYSICIAN DR. BRENDA RHOADES ON OCTOBER 09, 2017 AT 10:55 AM. FOLLOW UP WITH [facility] DR. WASHINGTON IN 1 WEEK. Medical Emergencies . Who to Call and When: Medical Emergencies: If at any time you feel your situation is an emergency, please call 911 immediately. . Non-Emergent Contact Non-Emergency issues call your: Primary Care Provider Call Non-Emergent contact if: you have a fever, your pain is not controlled, your pain is worsening, your pain is unusual for you, your pain is concerning you, wound has increased drainage, wound has increased redness, wound has increased pain, you have any medication questions . Past History Medical & Surgical History: (1) Severe low back pain (2) Ambulatory dysfunction (3) Obesity (4) E. coli septicemia (5) ARF (acute renal failure) (6) Dehydration (7) Lower back pain (8) Lower abdominal pain, unspecified (9) Rash and nonspecific skin eruption (10) Thoracic back pain (11) Weakness of left upper extremity (12) Chest pain (13) Hypertension (14) Closed head injury (15) Concussion . "Provider Documentation" section prepared by Boston Lutz. . Core Measure Problem Core Measures: None
--- NOTE | 2017-10-03 10:19 | Discharge Summary ---
Discharge Summary Date of Service Oct 03, 2017. Discharge Summary Admission Date: Sep 21, 2017 at 08:50 Discharge Date: Oct 03, 2017 Discharge Disposition: intermediate facility Principal Diagnosis: BACK PAIN, SPINAL STENOSIS, L5-S 1 BULGING DISC Secondary Diagnoses/Problems: E COLI ESBL, UTI AND BACTEREMIA; Please refer to hospital course below for other diagnoses. Procedures: LUMBAR SPINE COMBINATION HISTORY: Pain. Neuropathy. SEVERE BACK PAIN TECHNIQUE: Multiplanar multisequence MRI of the lumbar spine was performed both before and after the intravenous administration of contrast. COMPARISON: None. FINDINGS: For the purpose of the report the L5-S1 disc space will be located on axial image 2030. Nondiagnostic study due to severe patient motion. The study is restricted to a single sagittal T2 sequence as well as an axial T2 and a clinically T1 sequence. There are findings of severe patient motion throughout. There is a grade 1 anterolisthesis of L4 on L5 with a maximum subluxation of 3.7 mm. Findings of mild degenerative disc changes throughout. L1-L2: No significant compromise of the spinal canal L2-L3 no significant compromise of the spinal canal L3-L4: No significant compromise of the spinal canal. L4-L5 severe multifactorial spinal stenosis. L5-S1 mild broad-based disc bulge. Minimal impact anterior thecal sac. Moderate narrowing of the neuroforamina bilaterally. IMPRESSION: 1. Near nondiagnostic exam due to severe patient motion. 2. Severe multifactorial spinal stenosis L4-L5 associated with a grade 1 anterolisthesis of L4 and L5. 3. Moderate compromise of the neuroforamina bilaterally at L4-L5. Impact upon the thecal sac is most prominent in the anterior right position due to posterior disc herniation material. 4. Broad-based bulging disc L5-S1 with moderate narrowing of the neuroforamina bilaterally. The above report was generated using voice recognition software. It may contain grammatical, syntax or spelling errors. Electronically signed by: Wallace Ramon M.D. 09/18/2017 1:16 PM (ROLANDO/KEVIN)RETROPERITON COMP CLINICAL HISTORY: 62 years-old Female presenting with acute renal failure, UTI. TECHNIQUE: Real-time grayscale and limited color Doppler ultrasound imaging of the kidneys and bladder was performed. COMPARISON: Ultrasound from 09/18/[address] from 01/26/2015. FINDINGS: Right kidney: Prominence of the interpolar renal parenchyma may represent a dromedary hump. This appearance is not dissimilar to prior ultrasound. The left kidney also has a similar appearance. Right kidney measures 10.9 cm. No hydronephrosis. No convincing evidence of calculus or mass. Left kidney: Normal echogenicity of renal parenchyma. Left kidney measures 11.6 cm. No hydronephrosis. No convincing evidence of calculus or mass. Bladder: The bladder is filled with heterogeneous hypoechoic avascular debris. Bladder incompletely distended. Bilateral ureteral jets not visualized. Other: None. IMPRESSION: 1. Avascular debris in the bladder could represent blood clot or infectious debris. Correlate with urinalysis. The absence of vascularity on color Doppler suggests against a neoplastic etiology though this may not exclude the process of the of cystoscopy. Consider urologic consultation. 2. No hydronephrosis. Electronically signed by: Kendrick Guerra M.D. 09/27/2017 2:47 PM CHEST ONE VIEW PORTABLE CLINICAL HISTORY: r/o chf, pulmonary edema dyspnea COMPARISON STUDY: 09/26/2017 FINDINGS: Moderate increase in pulmonary vasculature. Heart remains mildly enlarged. Diaphragms are smooth. IMPRESSION: Developing congestive failure versus pulmonary edema The above report was generated using voice recognition software. It may contain grammatical, syntax or spelling errors. Electronically signed by: Wallace Ramon M.D. 09/29/2017 1:06 PM Consultations: INFECTIOUS DISEASE SVC, NEPHROLOGY, PAIN MANAGEMENT, ORTHO SPINE Pending Studies/Follow-Up: PLEASE REFER TO HOSPITAL COURSE BELOW FOR FURTHER DETAILS. MONITOR PARTIAL RENAL PROFILE WHILE ON IV ERTAPENEM. CHECK WOUNDS DAILY. Thighs, Groin, buttocks and side skin folds- apply steroid cream as ordered to all open areas, cover heavily draining areas with aquacel ag , change daily and prn. MONITOR BLOOD PRESSURE. CONTINUE PT/OT. FOLLOW UP WITH PRIMARY CARE PHYSICIAN DR. BRENDA RHOADES ON OCTOBER 09, 2017 AT 10:55 AM. FOLLOW UP WITH [facility] DR. WASHINGTON IN 1 WEEK. FOLLOW UP WITH [facility] IN 1 WEEK. Medication Reconciliation New Medications: Ertapenem Sodium (Invanz) 1 Gm Inj 1 GM IV DAILY for 7 Days, VIAL Baclofen (Baclofen) 10 Mg Tab 10 MG PO TID for 30 Days Duloxetine HCl (Duloxetine HCl) 60 Mg Cap 60 MG PO QAM for 30 Days Gabapentin (Gabapentin) 100 Mg Cap 100 MG PO BID for 30 Days Heparin Sod (Porcine) (Heparin Sodium) 5,000 Unit/0.5 Ml Inj 5000 UNIT SQ Q8 for 14 Days Polyethylene (Miralax) 17 Gm Pow 17 GM PO DAILY for 30 Days Triamcinolone Acet (Triamcinolone Acetonide) 45 Appln/15 Gm Cr 1 APPLN EXT BID for 30 Days apply on the bilateral inner thigh wounds Changed Medications: Hydrocodone/Acetaminophen 5MG/325MG (Henderson 5MG/325MG) Tab 1 TABLET PO Q6H PRN for Pain for 7 Days, TAB (Changed from: BID) Continued Medications: Amlodipine Besylate (Amlodipine Besylate) 5 Mg Tab 5 MG PO DAILY Ascorbic Acid (Vitamin C) 250 Mg Chw 250 MG PO DAILY Aspirin (Aspirin Ec) 81 Mg Tab 81 MG PO DAILY Atorvastatin (Lipitor) 80 Mg Tab 80 MG PO DAILY Bupropion Hcl (Wellbutrin Sr) 200 Mg Tabcr 200 MG PO BID Cholecalciferol (Vitamin D3) 2,000 Unit Cap 2000 INTER.UNIT PO DAILY, CAP Clotrimazole W/ Betamethasone (Lotrisone) 1 Cre Cre 1 APPLN TOP AMPM PRN for for 5 Days, #15 GM Cyanocobalamin (Vitamin B-12) 1,000 Mcg Tab 1000 MCG PO DAILY, TAB Cyclobenzaprine Hcl (Flexeril) 10 Mg Tab 10 MG PO PRN UD, #21 TAB Denosumab (Prolia) 60 Mg/Ml Genet 1 DOSE INJ UD Diclofenac Sodium (Topical) (Voltaren 1% Top Gel) 1 % Gel 1 APPLN TOP QID Ferrous Sulfate (Iron) 325 Mg Tab 325 MG PO DAILY Folic Acid (Folic Acid) 800 Mcg Tab 800 MCG PO DAILY Loratadine (Claritin) 10 Mg Tab 10 MG PO DAILY, TAB Metoprolol Succinate (Metoprolol Succinate ER) 25 Mg Tabcr 25 MG PO DAILY Niacin (Niacin) Unknown Strength Tab 1 TAB PO QPM, TAB Nitroglycerin (Nitrostat) 0.4 Mg Tab 0.4 MG UT PRN, BTL Nystatin (Nystop) 45 Appln/15 Gm Powd 1 APPLN PO BID Omeprazole (Prilosec) 40 Mg Cap 40 MG PO DAILY Vitamin E (E 1000) 1,000 Unit Cap 2000 UNITS PO QPM Discontinued Medications: Dicyclomine Hcl (Dicyclomine Hcl) 20 Mg Tab 20 MG PO QID Docusate Sodium (Colace) 100 Mg Cap 2 CAP PO HS for 30 Days, CAP Doxycycline Hyclate (Vibramycin) 100 Mg Cap 100 MG PO BID One with breakfast and 1 with lunch Duloxetine HCl (Cymbalta) 30 Mg Cap 30 MG PO DAILY, 2 Refills Fluocinonide (Lidex 0.05% Oint) 180 Appln/60 Gm Oint 1 APPLN TOP BID PRN for AFFECTED AREAS Lisinopril (Lisinopril) 10 Mg Tab 10 MG PO DAILY Mycophenolate Mofetil (Cellcept) 500 Mg Tab 1000 MG PO BIDM, TAB Triamcinolone Acet (Aristocort 0.1%) 240 Appln/80 Gm Cr 1 APPLN TOP BID PRN for APPLY TO ARMS AND LEGS DIRECTED Admission Information HPI (per Admitting provider): DATE OF ADMISSION: 09/18/2017 CHIEF COMPLAINT: Severe back pain. HISTORY OF PRESENT ILLNESS: A 62-year-old female with past medical history significant for compression fracture of thoracic vertebrae, status post kyphoplasty, bullous pemphigoid, hypertensive heart disease, chronic kidney disease stage III, obesity, spinal stenosis of lumbar region, GERD, osteoporosis , irritable bowel syndrome, mixed urge and stress incontinence, presents with severe back pain. Patient was in ER on09/16/2017 for severe back pain. At that time, she was given Decadron, pain medications, and discharged on Medrol Dosepak. Also saw family doctor recently and had x-ray of the back and was told that they were okay, but the pain was not getting better. Has severe pain in the lower back radiating to the right leg, causing her difficulty ambulation and she came to the ER today again. Was also worried because she was not able to micturate. Ultrasound of the kidneys was done in ER, which was unremarkable.Straight cath her in ER.Currently she states is not able to get up and ambulate and ER physician tried to discharge her to rehab, but she refused to go. She was seen by pain management in 2017 they tried to do shot but it was canceled because of some pilonidal infection. At that time, CAT scan was done, which showed moderate degenerative diseases. Patient denies any other medical problems. She has some headache, no blurred vision, no dizziness, no earache, no runny nose, no sore throat, no cough, no difficulty swallowing. No shortness of breath, no chest pain, no nausea, no vomiting, no abdominal pain. Normal bowel movements. No blood in the stools, no blood in the urine. Currently resting comfortably and hemodynamically stable. Physical Exam (per Admitting): GENERAL: Patient is morbidly obese, not in distress. VITAL SIGNS: Temperature 36.8, pulse 76, respiratory rate 20, blood pressure 127/58, oxygen 98% on room air. HEENT: No pallor, no icterus. Pupils equal, round, reactive to light. NECK: No JVD, no neck masses, no carotid bruits. CARDIOVASCULAR: S1, S2, regular rate and rhythm, no murmur, no gallop. RESPIRATORY: Clear to auscultation bilaterally. No wheezing. No crackles. ABDOMEN: Soft, bowel sounds present, nontender. No distention. CENTRAL NERVOUS SYSTEMS: Cranial nerves II-XII grossly intact. Nonfocal. MUSCULOSKELETAL: Bilateral straight leg raise test positive. Hospital Course BACK PAIN, SPINAL STENOSIS, L5-S 1 BULGING DISC MRI lumbar spine demonstrated spinal stenosis and bulging disc L5-S1. Ortho consult with Dr. Nesbitt; conservative management recommended. Received Medrol taper. Continue Henderson PRN Gabapentin 300mg BID--> dose reduced to 100mg due to drowsiness Baclofen Added --improving daily outpatient follow up with [facility] E COLI ESBL, UTI AND BACTEREMIA 09/25/17: (+) fever of 39, hypotension urine culture: E COLI ESBL blood cultures: : E COLI ESBL repeat blood cultures: E COLI ESBL repeat blood cultures; negative so far Changed Ceftri --> Ertapenem Day 7 hold Cellcept ID consulted Dr. Washington will need total of 14 days of IV Ertapenem continue Ertapenem IV x 7 more days ID ff up as outpatient ACUTE RENAL FAILURE likely pre renal etiology, ATN from infection crea 1.9--> 2.5 --> 1.89 given IV NSS d/c Lisinopril Renal ultrasound unremarkable - Nephrology consulted Sodium bicarbonate 3 times daily given - crea back to baseline 0.8 - monitor crea Possible acute on chronic diastolic CHF noted after being given IV NSS for hypotension and acute renal failure fluids discontinued, resolved - now euvolemic - monitor HYPOTENSION likely from dehydration resolved ANEMIA, THROMBOCYTOPENIA likely from Bone Marrow Suppression secondary to Infection HIT Ab negative Improving HYPERTENSION continue Metoprolol, Amlodipine d.c Lisinopril monitor GERD Continue PPI. BULLOUS PEMPHIGOID BILATERAL GROIN WOUNDS HOLD mycophenolate mofetil in light of infection on denosumab as outpatient discussed with patient's [facility] [employer] Analyst Dr. Asia Desouza, agree with holding Cellcept continue Triamcinoline BID Wound care consulted follow up with Dr. Desouza in 1 week MORBID OBESITY Wt 134 kg, BMI 47.7. AHA diet. CONSTIPATION Bowel regimen as ordered. DEPRESSION Psych consulted. Arrangements made for outpatient follow-up. Very anxious / depressed / chronic back pain. Increased duloxetine to 60 mg daily. -- mood improving -- monitor CHEST PAIN Atypical chest pain. EKG showed NSR, no acute changes. D-dimer elevated, but CTA of chest negative for PE and venous duplex of lower extremities negative for DVT. VTE PROPHYLAXIS SQ heparin. x 14 days, reevaluate duration, will need DVT prophylaxis until more ambulatory Ambulate. DISPOSITION transfer to SNF when accepted Family Medicine follow-up with Dr. Brenda Rhoades Monday at 10: 55am [facility] in 1 week. Pain Management Clinic in [address] Asia Desouza in 1 week. Total time spent on discharge = 45 minutes This includes examination of the patient, discharge planning, medication reconciliation, and communication with other providers. Discharge Instructions Discharge Instructions Date of Service Oct 03, 2017. Admission Reason for Admission: Ambulatory Dysfunction,Severe Low Back Pain Discharge Discharge Diagnosis / Problem: SEVERE LOW BACK PAIN, ESBL E COLI UTI AND BACTEREMIA Discharge Goals Goal(s): Diagnostic testing, Therapeutic intervention Activity Recommendations Activity Level: Assistance Required Therapies: Physical Therapy, Occupational Therapy FALL PRECAUTIONS PLEASE. . Additional Information Patient informed of condition: Yes Advance Directives: No (UNKNOWN) DNR: No (PATIENT IS A FULL CODE) Level of Care: Skilled Communicable Disease: No Prognosis: Stable Instructions / Follow-Up Instructions / Follow-Up PLEASE REFER TO [facility]ANYING HOSPITAL DISCHARGE SUMMARY FOR FURTHER DETAILS. MONITOR PARTIAL RENAL PROFILE WHILE ON IV ERTAPENEM. CHECK WOUNDS DAILY. Thighs, Groin, buttocks and side skin folds- apply steroid cream as ordered to all open areas, cover heavily draining areas with aquacel ag , change daily and prn. MONITOR BLOOD PRESSURE. CONTINUE PT/OT. FOLLOW UP WITH PRIMARY CARE PHYSICIAN DR. BRENDA RHOADES ON OCTOBER 09, 2017 AT 10:55 AM. FOLLOW UP WITH [facility] DR. WASHINGTON IN 1 WEEK. FOLLOW UP WITH [facility] IN 1 WEEK. Current Hospital Diet Patient's current hospital diet: AHA Diet (Heart Healthy) Discharge Diet Recommended Diet: AHA Diet (Heart Healthy) Procedures Procedures Performed: MIDLINE PLACEMENT LEFT ARM Pending Studies Studies pending at discharge: yes List of pending studies: MONITOR PARTIAL RENAL PROFILE Physician Orders On Transfer Special Precautions: PLEASE REFER TO ACCOMPANYING HOSPITAL DISCHARGE SUMMARY FOR FURTHER DETAILS. MONITOR PARTIAL RENAL PROFILE WHILE ON IV ERTAPENEM. CHECK WOUNDS DAILY. Thighs, Groin, buttocks and side skin folds- apply steroid cream as ordered to all open areas, cover heavily draining areas with aquacel ag , change daily and prn. MONITOR BLOOD PRESSURE. CONTINUE PT/OT. FOLLOW UP WITH PRIMARY CARE PHYSICIAN DR. BRENDA RHOADES ON OCTOBER 09, 2017 AT 10:55 AM. FOLLOW UP WITH [facility] DR. WASHINGTON IN 1 WEEK. Medical Emergencies . Who to Call and When: Medical Emergencies: If at any time you feel your situation is an emergency, please call 911 immediately. . Non-Emergent Contact Non-Emergency issues call your: Primary Care Provider Call Non-Emergent contact if: you have a fever, your pain is not controlled, your pain is worsening, your pain is unusual for you, your pain is concerning you, wound has increased drainage, wound has increased redness, wound has increased pain, you have any medication questions . Past History Medical & Surgical History: (1) Severe low back pain (2) Ambulatory dysfunction (3) Obesity (4) E. coli septicemia (5) ARF (acute renal failure) (6) Dehydration (7) Lower back pain (8) Lower abdominal pain, unspecified (9) Rash and nonspecific skin eruption (10) Thoracic back pain (11) Weakness of left upper extremity (12) Chest pain (13) Hypertension (14) Closed head injury (15) Concussion . "Provider Documentation" section prepared by Boston Lutz. . Core Measure Problem Core Measures: None
[2017-10-03] MEDS: HYDROCODONE/ACETAMIN 5/325MG TAB PO PRN (12:21)
[2017-10-03 13:19] VITALS: BP 153/82; PULSE 83; TEMP 36.7; O2SAT 96
[2017-10-03] MEDS: ERTAPENEM IV 1 GM in SODIUM CHLOR 0.9% AD-VAN 50ML IV SCH (14:38)
== END 2017-10-03 16:12 | DRG 551 ==
LOC: C.EDB 09-18 → UNDOADMOB 09-18 04:04 → C.4E 09-18 04:04 → ENRESERV 09-18 04:58 → OBSVTOIN 09-21 08:50 → INTOOBSV 09-21 08:50
PROVIDERS: ADMIT Internal Medicine; ATTEND Internal Medicine
PROC: 02HV33Z Insertion of Infusion Device into Superior Vena Cava, Percutaneous Approach (ICD-10-PCS; principal; 2017-10-02)
DX: M51.27 Other intervertebral disc displacement, lumbosacral region (principal); I50.33 Acute on chronic diastolic (congestive) heart failure; R78.81 Bacteremia; M48.061 Spinal stenosis, lumbar region without neurogenic claudication; N17.9 Acute kidney failure, unspecified; L12.0 Bullous pemphigoid; N39.0 Urinary tract infection, site not specified; Z85.89 Personal history of malignant neoplasm of other organs and systems; Z79.82 Long term (current) use of aspirin; Z76.5 Malingerer [conscious simulation]; I13.0 Hypertensive heart and chronic kidney disease with heart failure and stage 1 through stage 4 chronic kidney disease, or unspecified chronic kidney disease; E66.01 Morbid (severe) obesity due to excess calories; M81.0 Age-related osteoporosis without current pathological fracture; K58.9 Irritable bowel syndrome, unspecified; E87.2 Acidosis; N39.46 Mixed incontinence; N18.3 Chronic kidney disease, stage 3 (moderate); E87.1 Hypo-osmolality and hyponatremia; Z68.42 Body mass index [BMI] 45.0-49.9, adult; K21.9 Gastro-esophageal reflux disease without esophagitis; D50.9 Iron deficiency anemia, unspecified; B96.29 Other Escherichia coli [E. coli] as the cause of diseases classified elsewhere; I95.89 Other hypotension; D69.59 Other secondary thrombocytopenia; F32.9 Major depressive disorder, single episode, unspecified; R07.89 Other chest pain; M46.1 Sacroiliitis, not elsewhere classified; K59.00 Constipation, unspecified

== ENCOUNTER → 2017-10-05 | Outpatient (CLI) | payer OTHER ==
[~2017-10-05] MED LIST changes: -CYM/30 PO; +CYM60 PO; -DICY20TA10 PO; -DOCU-94 PO; -DOXY100C2 PO; +DULO1CAP40 PO; +ERTA1INJ IV; +HPRIS5M SQ; -LDXO60 TOP; -LISI-461 PO; +LRS10 PO; -METH4PAK PO; +MRLP17 PO; -MYCO500T4 PO; +NRN100 PO; +TRMCR115 EXT; -TRMCR180 TOP
[2017-10-05 09:21] LABS: BASO % 1.4 %; EOS % 1.3 %; EOS ABS # 0.09 K/uL (0-0.5); HEMATOCRIT 30.6 % (37-47); HEMOGLOBIN 9.4 g/dL (12.0-16.0); LYMPH % 26.3 %; LYMPH ABS # 1.87 K/uL (1.2-3.4); MEAN CORPUSCULAR HEMOGLOBIN 28.6 pg (25-34); MEAN CORPUSCULAR HGB CONC 30.7 g/dl (32-36); MEAN PLATELET VOLUME 10.5 fL (7.4-10.4); MONO % 9.7 %; MONO ABS # 0.69 K/uL (0.11-0.59); NEUT % 59.8 %; NEUT ABS # 4.26 K/uL (1.4-6.5); PLATELET COUNT 279 K/uL (130-400); RED CELL DISTRIBUTION WIDTH CV 17.7 % (11.5-14.5); RED CELL DISTRIBUTION WIDTH SD 59.9 fL (36.4-46.3); WHITE BLOOD COUNT 7.12 K/uL (4.8-10.8)
[2017-10-05 09:22] LABS: IG# 0.11 K/uL (0.00-0.02)
[2017-10-05 09:38] LABS: ALBUMIN 2.3 gm/dl (3.4-5.0); ALKALINE PHOSPHATASE 166 U/L (45-117); ALT/SGPT 37 U/L (12-78); AST/SGOT 36 U/L (15-37); BLOOD UREA NITROGEN 12 mg/dl (7-18); CALCIUM 8.7 mg/dl (8.5-10.1); CARBON DIOXIDE 25 mmol/L (21-32); CREATININE 0.98 mg/dl (0.60-1.20); GLUCOSE 80 mg/dl (70-99); POTASSIUM 4.9 mmol/L (3.5-5.1); SODIUM 139 mmol/L (136-145)
== END ==
LOC: C.LABCC 08:26
PROVIDERS: ATTEND Internal Medicine
DX: N18.3 Chronic kidney disease, stage 3 (moderate) (principal); R78.81 Bacteremia

== ENCOUNTER → 2017-10-12 | Outpatient (CLI) | payer OTHER ==
[~2017-10-12] MED LIST changes: +AFRIN; -ERTA1INJ IV; +SALI0.6510
[2017-10-12 08:55] LABS: HEMATOCRIT 26.8 % (37-47); HEMOGLOBIN 8.1 g/dL (12.0-16.0); MEAN CELL VOLUME 94.7 fL (80-100); MEAN CORPUSCULAR HEMOGLOBIN 28.6 pg (25-34); MEAN CORPUSCULAR HGB CONC 30.2 g/dl (32-36); MEAN PLATELET VOLUME 10.6 fL (7.4-10.4); PLATELET COUNT 291 K/uL (130-400); RED CELL DISTRIBUTION WIDTH CV 16.4 % (11.5-14.5); RED CELL DISTRIBUTION WIDTH SD 56.8 fL (36.4-46.3); WHITE BLOOD COUNT 7.39 K/uL (4.8-10.8)
[2017-10-12 09:06] LABS: PTT PATIENT 24.1 SECONDS (21.0-31.0)
== END | disposition home or self-care (01) ==
LOC: C.LABCC 08:29
PROVIDERS: ATTEND Internal Medicine
DX: Z79.01 Long term (current) use of anticoagulants (principal); Z51.81 Encounter for therapeutic drug level monitoring

== ENCOUNTER 2019-12-13 10:32 | Inpatient (IN) ==
--- NOTE | 2019-12-13 11:10 | Emergency Department Note ---
History of Present Illness General Chief complaint: Dehydration Stated complaint: MOUTH FEELING VERY DRY, HX OF KIDNEY PROBLEMS Time Seen by Provider: 12/13/19 10:51 Source: patient Mode of arrival: ambulatory Limitations: no limitations History of Present Illness This patient comes in complaining of not being able to urinate or have a bowel movement for 4 days. She fell a week and a half or so ago and had several rib fracture she has been on narcotics for this. She does have some pain in her lower back mostly on the left is been there for a couple days. She had no numbness or weakness in her legs or pain shooting down her legs she does however say it feels numb in her buttocks area. She says she has been eating and drinking as normal. She has had small amounts of urination she tells me. She has no fall since her initial fall. No chest pain shortness breath or cough no exposure to coronavirus. She says her rib fractures are healing well. No significant abdominal pain. She does have history of back issues and had back surgery in [place] and Dr. Daniel has been giving her shots although she has not had a recent MRI. Home Medications Home Medications Medication Instructions Recorded Confirmed Type [place] 3-6-9 1 cap PO QAM 06/16/18 12/13/19 History aspirin [Aspirin Low Dose] 81 mg PO QAM 06/16/18 12/13/19 History atorvastatin 80 mg PO QPM 06/16/18 12/13/19 History bupropion HCl [Wellbutrin SR] 200 mg PO BIDM 06/16/18 12/13/19 History cholecalciferol (vitamin D3) 2,000 unit PO QAM 06/16/18 12/13/19 History [Vitamin D3] clotrimazole 1 applic TOPICAL BID PRN 06/16/18 12/13/19 History cyanocobalamin (vitamin B-12) 1,000 mcg PO QAM 06/16/18 12/13/19 History [Vitamin B-12] duloxetine [Cymbalta] 30 mg PO BID 06/16/18 12/13/19 History ferrous sulfate 325 mg PO QAM 06/16/18 12/13/19 History folic acid 0.8 mg PO QAM 06/16/18 12/13/19 History gabapentin [Neurontin] 300 mg PO BID 06/16/18 12/13/19 History lisinopril 10 mg PO QPM 06/16/18 12/13/19 History loratadine 10 mg PO QAM 06/16/18 12/13/19 History metoprolol succinate 25 mg PO QAM 06/16/18 12/13/19 History omeprazole 40 mg PO QAM 06/16/18 12/13/19 History Fiber Gummies 2 g PO BID 11/26/18 12/13/19 History diclofenac sodium [Voltaren] 4 g TOPICAL QID PRN 12/01/19 12/13/19 History alprazolam 1 mg PO BID PRN 12/13/19 12/13/19 History ascorbic acid (vitamin C) 250 mg PO DAILY 12/13/19 12/13/19 History docusate sodium [Colace] 100 mg PO BID PRN 12/13/19 12/13/19 History doxycycline monohydrate 100 mg PO BID 12/13/19 12/13/19 History inulin 2 g PO BID 12/13/19 12/13/19 History morphine 15 mg PO Q12H 12/13/19 12/13/19 History nystatin 1 applic TOPICAL BID 12/13/19 12/13/19 History oxycodone 5 mg PO Q8H PRN 12/13/19 12/13/19 History sennosides [Senokot] 8.6 mg PO HS PRN 12/13/19 12/13/19 History tizanidine 4 mg PO Q6H PRN 12/13/19 12/13/19 History Allergies Allergy/AdvReac Type Severity Reaction Status Date / Time egg AdvReac Intermediate GI upset Verified 12/13/19 11:30 ibuprofen AdvReac Mild stomach Verified 12/13/19 11:30 irritation Past Med/Surg History Medical History Anemia chronic; baseline hgb 9-10 range per chart review Anxiety and depression Aortic stenosis Mild (per cardiology review) aortic stenosis with possible bicuspid aortic valve (MG 19mmhg, NIKKIE 3.0) per 05/2018 ECHO Bullous pemphigoid CAD (coronary artery disease) non-obstructive Carotid artery stenosis "mild" Chronic back pain GERD (gastroesophageal reflux disease) controlled High cholesterol History of blood transfusion 2 Units PRBC's post-operatively Hx of falling last fall 09/2018- per patient, related to LBP/balance issues- ? r/t ambul atory dysfunction- improved with cane/walker use Hypertension Morbid obesity Osteoporosis Stage 3 chronic kidney disease Surgical History History of back surgery History of cardiac cath 2017= NO STENTS History of kyphoplasty History of right knee joint replacement Hx of laparoscopy Family History Father Stroke Mother Stroke Social History Smoking Status: Former smoker Tobacco Type: Cigarettes Second Hand Exposure: No; Hx Alcohol Use: No Hx Substance Use: No Preferred Language: Setswana Communication Ability: Effective Visual Impairment: No Limitations Hearing Ability: Normal Financial Planning Assistant Required: No Beliefs That Will Affect Care: None marital status: Single Current Living Situation: Parent Current Living Situation Comment: lives with mother and sister current occupational status: unemployed and disabled Other Information That Helps Us Care for You: No Feels Safe at Home: Yes Safety Concerns: Feels Safe At This Time Assistive Devices: Cane, Denture - Lower and Walker Review of Systems A total of 10 systems reviewed and were otherwise negative Physical Exam Vital Signs Vital Signs - 24 hr 12/13/19 10:38 12/13/19 11:02 12/13/19 13:00 Temperature 36.8 C Temperature Source Oral Pulse Rate 86 76 83 Pulse Rhythm Regular Respiratory Rate 18 18 20 Respiratory Effort / Characteristics Non-Labored Spontaneous Accessory Muscle Use Respiratory Depth Normal Respiratory Pattern Regular Blood Pressure 114/51 L Blood Pressure Mean 72 Blood Pressure Position Sitting Pulse Oximetry 97 96 Oxygen Delivery Method Room Air Room Air Sepsis Recent Fever Within 48 Hours No Sepsis New/Unexplained Change in Mental Status N/A Sepsis Action Taken by Nursing No Action Required 12/13/19 13:01 12/13/19 13:13 12/13/19 13:15 Temperature Temperature Source Pulse Rate 86 87 90 Pulse Rhythm Respiratory Rate 18 16 16 Respiratory Effort / Characteristics Respiratory Depth Respiratory Pattern Blood Pressure 75/66 L 92/47 L Blood Pressure Mean 69 82 66 Blood Pressure Position Pulse Oximetry Oxygen Delivery Method Sepsis Recent Fever Within 48 Hours Sepsis New/Unexplained Change in Mental Status Sepsis Action Taken by Nursing 12/13/19 13:16 12/13/19 13:35 12/13/19 13:39 Temperature Temperature Source Pulse Rate 91 H 91 H 84 Pulse Rhythm Respiratory Rate 22 17 17 Respiratory Effort / Characteristics Respiratory Depth Respiratory Pattern Blood Pressure 91/51 L Blood Pressure Mean 64 Blood Pressure Position Pulse Oximetry Oxygen Delivery Method Sepsis Recent Fever Within 48 Hours Sepsis New/Unexplained Change in Mental Status Sepsis Action Taken by Nursing 12/13/19 13:46 12/13/19 14:00 Temperature Temperature Source Pulse Rate 88 82 Pulse Rhythm Respiratory Rate 16 18 Respiratory Effort / Characteristics Respiratory Depth Respiratory Pattern Blood Pressure 97/53 L 105/59 L Blood Pressure Mean 73 70 Blood Pressure Position Pulse Oximetry Oxygen Delivery Method Sepsis Recent Fever Within 48 Hours Sepsis New/Unexplained Change in Mental Status Sepsis Action Taken by Nursing General: Well developed well nourished middle-aged female who in no acute distress, breathing comfortably on room air. Normal speech HEENT: Normal cephalic atraumatic. Pupils are equal round and reactive to light. Extraocular movements are intact. Oropharynx is pink with moist mucous membranes. No swelling of the mouth lips or tongue. Neck: Supple with a midline trachea. No meningeal signs or stiffness, no JVD or bruits. No Stridor. Chest: Clear to auscultation bilaterally. No wheezes or rhonchi. No increased work of breathing. Heart: Regular rate and rhythm without murmurs or gallops. Abdomen: Soft nontender, nondistended without rebound guarding or rigidity. Extremities: No cyanosis clubbing or edema. No calf tenderness or assymetry Spine/Back. Minimally tender to palpation in the central lower lumbar area slightly to the left. No rash or external signs of trauma. No CVA tenderness Skin: Good turgor without rashes. Neurologic exam: Cranial nerves two through 12 are intact. Motor and sensation are intact and symmetrical throughout. Course Administered Medications Sodium Chloride (Nss 1000ml) 1,000 mls @ 125 mls/hr IV .Q8H [facility] Stop: 01/12/20 15:59 Last Admin: 12/13/19 16:13 Dose: 125 mls/hr Documented by: [id number] Discontinued Medications Sodium Chloride (Nss) 500 mls @ 999 mls/hr IV .Q31M [facility] Stop: 12/13/19 11:45 Last Infusion: 12/13/19 12:27 Dose: 0 mls/hr Documented by: [id number] Admin: 12/13/19 11:54 Dose: 999 mls/hr Documented by: [id number] Lorazepam (Ativan) 0.5 mg in 1 mls @ 1 mls/min IV NOW STA Stop: 12/13/19 11:13 Last Admin: 12/13/19 11:54 Dose: 1 mls/min Documented by: [id number] Sodium Chloride (Nss 1000ml) 500 mls @ 999 mls/hr IV .Q31M [facility] Stop: 12/13/19 14:27 Last Infusion: 12/13/19 14:53 Dose: 0 mls/hr Documented by: [id number] Admin: 12/13/19 14:21 Dose: 999 mls/hr Documented by: [id number] Medical Decision Making Differential Diagnosis Dehydration, renal insufficiency, infection, trauma, cauda equina syndrome, electrolyte or metabolic abnormality Medical Records Attestation: I reviewed the patient's medical records. Home Medications Current Medication List: was personally reviewed by me Laboratory Data Attestation: I reviewed the patient's lab results. Result diagrams: 12/13/19 11:30 12/13/19 11:30 Lab Results 12/13/19 12/13/19 12/13/19 Range/Units 11:30 11:30 11:30 WBC 9.94 (4.8-10.8) K/uL RBC 3.08 L (4.2-5.4) M/uL Hgb 9.7 L (12.0-16.0) g/dL Hct 31.4 L (37-47) % MCV 101.9 H (80-100) fL MCH 31.5 (25-34) pg MCHC 30.9 L (32-36) g/dL RDW Std Deviation 45.6 (36.4-46.3) fL RDW Coeff of Brandy 12.4 (11.5-14.5) % Plt Count 213 (130-400) K/uL MPV 9.4 (7.4-10.4) fL Immature Gran % (Auto) 0.1 % Neut % (Auto) 65.7 % Lymph % (Auto) 20.2 % [place] % (Auto) 10.8 % Eos % (Auto) 2.6 % Baso % (Auto) 0.6 % Neut # (Auto) 6.53 H (1.4-6.5) K/uL Lymph # (Auto) 2.01 (1.2-3.4) K/uL [place] # (Auto) 1.07 H (0.11-0.59) K/uL Eos # (Auto) 0.26 (0-0.5) K/uL Baso # (Auto) 0.06 (0-0.2) K/uL Immature Gran # (Auto) 0.01 (0.00-0.02) K/uL Sodium 134 L (136-145) mmol/L Potassium 5.1 (3.5-5.1) mmol/L Chloride 103 (98-107) mmol/L Carbon Dioxide 26 (21-32) mmol/L Anion Gap 5.0 (3-11) BUN 30 H (7-18) mg/dl Creatinine 3.83 H (0.6-1.2) mg/dl Est Cr Clr Drug Dosing 21.5 ml/min Est GFR ( Amer) 13.8 Est GFR (Non-Af Amer) 11.9 BUN/Creatinine Ratio 7.8 L (10-20) Glucose 97 (70-99) mg/dl Calcium 8.4 L (8.5-10.1) mg/dl Total Bilirubin 0.7 (0.2-1) mg/dl AST 47 H (15-37) U/L ALT 41 (12-78) U/L Alkaline Phosphatase 113 (45-117) U/L Total Creatine Kinase 827 H (26-192) U/L CK-MB (CK-2) 18.7 H (0.5-3.6) ng/ml CK/CKMB % Calc 2.3 (0-3.0) Troponin I < 0.015 (0-0.045) ng/ml Total Protein 6.7 (6.4-8.2) gm/dl Albumin 3.2 L (3.4-5.0) gm/dl Globulin 3.5 (2.5-4.0) gm/dl Albumin/Globulin Ratio 0.9 (0.9-2) Lipase 80 (73-393) U/L Imaging Data Radiologist's Impression: [place] spine MRI, w/o contrast IMPRESSION: 1. Motion degraded exam. 2. L4 burst fracture has progressively worsened from 2018 however appears unchanged from 08/17/2018. Grade 1 anterolisthesis L3 on L4 and L4 on L5 has also progressed from comparison and is likely secondary to long-standing facet arthrosis. 3. Severe central canal stenosis at L4-L5 with moderate to severe central canal stenosis at L3-L4. 4. Multilevel foraminal narrowing, most pronounced at L4-L5 and L5-S1 as above. 5. Bone marrow edema involving the lower lumbar spine and S1 is likely on a degenerative basis. ABDOMEN AND PELVIS CT WITHOUT CONTRAST CT DOSE: 2096.96 mGy.cm HISTORY: New onset renal failure, recent fall TECHNIQUE: Multiaxial CT images of the abdomen and pelvis were performed without contrast. A dose lowering technique was utilized adhering to the principles of ALARA. COMPARISON STUDY: Chest CT 12/01/2019. Abdomen and pelvis CT 08/09/2018. FINDINGS: The lung bases are essentially clear. No pneumoperitoneum. No pneumatosis. No change in the severe old compression fracture at L4 with associated retropulsion. Stable mild inferior endplate compression fracture at T11. No associated retropulsion. This favors a subacute injury. Bilateral subacute rib fractures are not significantly changed. No new fractures identified. The gallbladder is mildly distended. This has progressed in the interval. No gallbladder wall thickening. The unenhanced liver, spleen, left adrenal gland, pancreas, and kidneys appear unremarkable. Suboptimal evaluation of the kidneys due to the motion artifact. However, no definite renal stones or hydronephrosis. Stable 13 mm right adrenal gland nodule. No retroperitoneal lymphadenopathy or hematoma. Normal caliber abdominal aorta demonstrating mild calcified plaque. No pelvic free fluid. The bladder, uterus, bilateral adnexa are within normal limits. Suboptimal evaluation for bowel pathology due to the lack of intravenous and oral contrast. However, there is no definite bowel wall thickening or obstruction. Colonic diverticulosis. No evidence for acute diverticulitis. The appendix is surgically absent. IMPRESSION: 1. Suboptimal evaluation due to the motion artifact and lack of contrast. 2. No definite renal stones or hydronephrosis. 3. No definite bowel wall thickening or obstruction. 4. Redemonstration of the subacute rib fractures and subacute and chronic compression fractures within the thoracic and lumbar spine. No new fractures identified. 5. The gallbladder is mildly distended. This has progressed in the interval. No gallbladder wall thickening. 6. Additional findings as described above. ECG Data Attestation: I personally reviewed and interpreted this ECG as follows: Indication: + weakness Rate (beats per minute): 85 Rhythm: + normal sinus ECG Intervals/blocks: + Normal QRS, + Normal QT and + Normal OH ECG [place]: + Normal ECG ST segments: + Normal ST segments ECG Findings: no PACs and no PVCs Comparison ECG Date: from (12/01/19) Change: no significant change MDM Narrative This patient comes in as described above. she is complaining of problems with her bowel and bladder,she has been on narcotics for a recent trauma/rib injury. She says that those have been healing better and she has no acute issues with the ribs. IV access was established and she was hydrated with an IV normal saline bolus. Although she has no numbness or weakness the legs, I was concerned about the possibility of cauda equina syndrome given her underlying back issues as well as bowel bladder complaints and numbness in her buttocks area. I did order MRI. She says she does have some mild claustrophobia so she was given 0.5 mg of Ativan IV prior to the study. She has a normal white count. Hemoglobin came back low at 9.7, her creatinine and BUN are also elevated at 30 and 3.83 which is significantly up from baseline. This could be prerenal. I did add an EKG and CK with MB as well as troponin. Her potassium is not significantly elevated at 5.1. Her MRI shows significant degenerative changes a nd spinal stenosis. Her CAT scan of the abdomen shows no obstructive uropathy. She was given multiple IV fluid boluses. I think most likely is prerenal but I do think needs to be admitted for hydration and further evaluation and treatment. Continuous cardiac monitoring: An order was placed in the EMR for continuous cardiac monitoring. The patient was noted to be in normal sinus rhythm with a pulse of 85. Impression & Plan Acute dehydration, Renal failure, Back pain, Constipation Discharge Plan Visit Data Chief Complaint: Dehydration Stated Complaint: MOUTH FEELING VERY DRY, HX OF KIDNEY PROBLEMS ED Provider: John Mario Discharge Problem: Acute dehydration, Renal failure, Back pain, Constipation Patient Disposition: Home - Self-Care Discharge Instructions Interventions: ED Discharge Assessment Last Done: 12/13/19 15:03 Discharge Problem: Renal failure Qualifiers: Renal failure chronicity: acute Acute renal failure type: unspecified Qualified Code(s): N17.9 - Acute kidney failure, unspecified Back pain Qualifiers: Back pain location: low back pain Chronicity: acute Back pain laterality: midline Sciatica presence: without sciatica Qualified Code(s): M54.5 - Low back pain Constipation Qualifiers: Constipation type: unspecified constipation type Qualified Code(s): K59.00 - Constipation, unspecified
[2019-12-13] MEDS ORDERED: LORazepam 0.5 MG/1 ML VIAL IV STA (11:12)
[2019-12-13] MEDS ORDERED: SODIUM CHLORIDE 0.9% 500 ML IV SCH (11:15)
[2019-12-13 11:44] LABS: Basophils # (auto) 0.06 K/uL (0-0.2); Basophils % (auto) 0.6 %; Eosinophils # (auto) 0.26 K/uL (0-0.5); Eosinophils % (auto) 2.6 %; Hematocrit (blood only) 31.4 % (37-47); Hemoglobin 9.7 g/dL (12.0-16.0); Immature Granulocytes # (auto) 0.01 K/uL (0.00-0.02); Immature Granulocytes % (auto) 0.1 %; Lymphocytes # (auto) 2.01 K/uL (1.2-3.4); Lymphocytes % (auto) 20.2 %; Mean Corpuscular Hemoglobin 31.5 pg (25-34); Mean Corpuscular Hgb Conc 30.9 g/dL (32-36); Mean Corpuscular Volume 101.9 fL (80-100); Mean Platelet Volume 9.4 fL (7.4-10.4); Monocytes # (auto) 1.07 K/uL (0.11-0.59); Monocytes % (auto) 10.8 %; Neutrophils # (auto) 6.53 K/uL (1.4-6.5); Neutrophils % (auto) 65.7 %; Platelet Count 213 K/uL (130-400); RDW Coefficient of Variation 12.4 % (11.5-14.5); RDW Standard Deviation 45.6 fL (36.4-46.3); Red Blood Count 3.08 M/uL (4.2-5.4); White Blood Count 9.94 K/uL (4.8-10.8)
[2019-12-13 12:06] LABS: Albumin Level 3.2 gm/dl (3.4-5.0); BUN Creatinine Ratio 7.8 (10-20); Calcium 8.4 mg/dl (8.5-10.1); Creatinine Clr Calc Pharmacy 21.5 ml/min; Est GFR (African American) 13.8; Est GFR (Non-African American) 11.9; Potassium 5.1 mmol/L (3.5-5.1)
[2019-12-13 12:08] LABS: Albumin Globulin Ratio 0.9 (0.9-2); Bilirubin,Total 0.7 mg/dl (0.2-1); Globulin 3.5 gm/dl (2.5-4.0); Total Protein 6.7 gm/dl (6.4-8.2)
[2019-12-13 13:07] LABS: Creatine Kinase 827 U/L (26-192); Creatine Kinase MB 18.7 ng/ml (0.5-3.6); Troponin I < 0.015 ng/ml (0-0.045)
--- NOTE | 2019-12-13 13:30 | Magnetic Resonance Report ---
MR lumbar spine wo con CLINICAL HISTORY: 64 years-old Female with back pain, eval for cauda equina. Chronic low back pain. COMPARISON: Lumbar spine MRI 09/18/2017, CT abdomen and pelvis 08/17/2018 TECHNIQUE: Multiplanar, multi sequence MRI of the lumbar spine was performed without intravenous cont rast. FINDINGS: The senior loan officer localizer images demonstrate no gross extraspinal abnormality. Mild to moderate bone marrow edema involving the L4 and L5 vertebral bodies and also within the superior L5 endplate are favored be on a degenerative basis. The study is markedly motion degraded, notably the axial series are nearl y nondiagnostic. 15 degrees levoscoliosis measured from L1-L5. No aortic aneurysm or adenopathy. Conu s medullaris terminates at T12-L1. Signal within the imaged thoracic spinal cord and cauda equina [place] ears unremarkable. 6 mm anterolisthesis L4 on L5 and 5 mm anterolisthesis L4 on L5 has progressively worsened from 2018. L4 burst fracture has also progressed from 2018 however appears to be unchanged f rom the 2019 comparison. T12-L1: Mild facet arthrosis. No central canal or foraminal narrowing. L1-L2: Mild facet arthrosis. No central canal or foraminal narrowing. L2-L3: Mild disc space narrowing with spondylitic spurring. Ligamentum flavum thickening with modera te facet arthrosis and trace facet effusions. Central canal is patent. Mild bilateral foraminal narro wing. The degree of foraminal narrowing appears to have slightly progressed. L3-L4: Mild disc space narrowing and spondylitic spurring with circumferential annular disc bulge an d moderate facet arthrosis. Grade 1 anterolisthesis L3 on L4 as above. Moderate to severe central can al stenosis, AP dimension of the thecal sac measuring 6 mm. Moderate right and mild left foraminal na rrowing. Findings have progressively worsened from comparison. L4-L5: Severe disc space narrowing with grade 1 anterolisthesis as above. Spondylitic spurring with disc space uncovering. Ligamentum flavum thickening with moderate facet arthrosis. Severe central can al stenosis, AP dimension of the thecal sac measuring 5 mm. There is also bilateral lateral recess na rrowing, right greater than left. Severe bilateral foraminal stenosis. L5-S1: Moderate disc space narrowing with spondylitic spurring, circumferential annular disc bulge w ith ligamentum flavum thickening and moderate facet arthrosis with small facet effusions. Epidural li pomatosis. Mild central canal stenosis with moderate right and severe left foraminal narrowing. IMPRESSION: 1. Motion degraded exam. 2. L4 burst fracture has progressively worsened from 2018 however appears unchanged from 08/17/2018. G rade 1 anterolisthesis L3 on L4 and L4 on L5 has also progressed from comparison and is likely second nora to long-standing facet arthrosis. 3. Severe central canal stenosis at L4-L5 with moderate to severe central canal stenosis at L3-L4. 4. Multilevel foraminal narrowing, most pronounced at L4-L5 and L5-S1 as above. 5. Bone marrow edema involving the lower lumbar spine and S1 is likely on a degenerative basis. ACT 112: Negative or not required by law. The above report was generated using voice recognition software. It may contain grammatical, syntax o r spelling errors. Electronically signed by: Felipe Abad M.D. 12/13/2019 1:29 PM
--- NOTE | 2019-12-13 13:49 | CT Scan Report ---
ABDOMEN AND PELVIS CT WITHOUT CONTRAST CT DOSE: 2096.96 mGy.cm HISTORY: New onset renal failure, recent fall TECHNIQUE: Multiaxial CT images of the abdomen and pelvis were performed without contrast. A dose lo wering technique was utilized adhering to the principles of ALARA. COMPARISON STUDY: Chest CT 12/01/2019. Abdomen and pelvis CT 08/09/2018. FINDINGS: The lung bases are essentially clear. No pneumoperitoneum. No pneumatosis. No change in the severe old compression fracture at L4 with associated retropulsion. Stable mild inferior endplate co mpression fracture at T11. No associated retropulsion. This favors a subacute injury. Bilateral subac [place] rib fractures are not significantly changed. No new fractures identified. The gallbladder is mild ly distended. This has progressed in the interval. No gallbladder wall thickening. The unenhanced [place], spleen, left adrenal gland, pancreas, and kidneys appear unremarkable. Suboptimal evaluation of t he kidneys due to the motion artifact. However, no definite renal stones or hydronephrosis. Stable 13 mm right adrenal gland nodule. No retroperitoneal lymphadenopathy or hematoma. Normal caliber abdomi nal aorta demonstrating mild calcified plaque. No pelvic free fluid. The bladder, uterus, bilateral a dnexa are within normal limits. Suboptimal evaluation for bowel pathology due to the lack of intraven ous and oral contrast. However, there is no definite bowel wall thickening or obstruction. Colonic di verticulosis. No evidence for acute diverticulitis. The appendix is surgically absent. IMPRESSION: 1. Suboptimal evaluation due to the motion artifact and lack of contrast. 2. No definite renal stones or hydronephrosis. 3. No definite bowel wall thickening or obstruction. 4. Redemonstration of the subacute rib fractures and subacute and chronic compression fractures withi n the thoracic and lumbar spine. No new fractures identified. 5. The gallbladder is mildly distended. This has progressed in the interval. No gallbladder wall thic kening. 6. Additional findings as described above. ACT 112: Negative or not required by law. Electronically signed by: Everardo Colin M.D. 12/13/2019 1:48 PM
[2019-12-13] MEDS ORDERED: SODIUM CHLORIDE 0.9% 1000ML 500 ML IV ONE (13:57)
--- NOTE | 2019-12-13 14:14 | Electrocardiogram Report ---
Test Reason : Blood Pressure : / mmHG Vent. Rate : 085 BPM Atrial Rate : 085 BPM P-R Int : 134 ms QRS Dur : 080 ms QT Int : 356 ms P-R-T Axes : 002 000 010 degrees QTc Int : 423 ms Normal sinus rhythm Normal ECG When compared with ECG of 01-DEC-2019 17:08, No significant change was found Confirmed by Nikunj Roper ([id number]) on 12/13/2019 2:13:53 PM Referred By: REFERRED SELF Confirmed By:Nikunj Roper
[2019-12-13 15:05] LABS: Appearance Urine Cloudy (Clear); Bacteria Urine Automated Negative (Negative); Bilirubin Urine Negative (Negative); Blood Urine Negative (Negative); Color Urine Dark Yellow; Epithelial Cell Urine Auto >30 /lpf (0-5); Glucose Urine UA Negative (Negative); Ketones Urine 1+ (Negative); Leukocyte Esterase Urine Trace (Negative); Nitrite Urine Negative (Negative); Protein Urine Negative (Negative); RBC Urine Automated 0-4 /hpf (0-4); Specific Gravity Urine 1.027 (1.000-1.030); Urobilinogen Urine Negative (Negative)
[2019-12-13 15:34] LABS: Cast Urine Automated 0 /lpf (0-5)
[2019-12-13] MEDS ORDERED: MICONAZOLE NITRATE POWDER 43 GM EXT PRN (16:00)
[2019-12-13] MEDS: SODIUM CHLORIDE 0.9% 1000ML 1,000 ML IV SCH ×2 (16:13→23:56)
--- NOTE | 2019-12-13 16:29 | History & Physical Report ---
Date of Service December 13, 2019 Assessment & Plan (1) Acute kidney injury superimposed on chronic kidney disease: (2) Stage 3 chronic kidney disease: (3) Oliguria: -admit to tele -patient presenting from home with reports of inability to urinate and have a bowel movement x 4 days -in the ED, creat found to be 3.8 (up from baseline ~ 1.2-1.4) -CT abd/pelvis negative for obstructive stone or hydro -no new medications, patient denies NSAID use -reports oral intake has been adequate, no N/V/D -etiology unclear at this point -patient reports no urine output x 4 days; palomares placed in ED and drained 150cc dark yellow urine -s/p NSS 1L in ED, continue with NSS @ 125/hr -strict IO -no acidosis, electrolytes acceptable -nephro consult, case discussed with Dr. Linder (4) Multiple rib fractures: -History of mechanical fall ~2 weeks ago with resultant multiple rib fractures -Patient reports pain is currently controlled -Incentive spirometer (5) Anxiety and depression: -Managed on bupropion and duloxetine -Given significant renal impairment, hold these medications for now (6) Bullous pemphigoid: -Controlled on doxycycline (7) CAD (coronary artery disease): -Appears stable, no reports of chest pain -Continue aspirin, hold metoprolol for today due to borderline low BPs (8) Hypertension: -BP borderline low, likely secondary to dehydration -Holding metoprolol -Improving after IVF (9) DVT prophylaxis: -SQ heparin Admission and Anticipated Discharge Date Admission Date: December 13, 2019 History of Present Illness Chief Complaint: Urinary difficulty, constipation Primary Care Provider: Nikunj Plascencia MD 64-year-old female with PMH HTN, CKD stage III, nonobstructive CAD, bullous pemphigoid, moderate aortic stenosis, and other problems listed below who presents to the ED for evaluation of urinary difficulties and constipation. Recent history includes, patient suffering a mechanical fall on 11/28. She was seen in the ED and rib and knee x-rays were negative for acute findings. Patient was seen again in the ED on 11/[address] chest showed fractures of the right anterior 4th through 6th ribs and left anterior 3rd through 6th ribs. Patient was prescribed extended release morphine twice a day for the pain and she reports her rib pain has been progressively getting better. She reports that she is currently taking the morphine once daily. Patient notes that over the past 4 days, she has had a very dry mouth. She reports that she has had no urine output in the past 4 days as well as not having a bowel movement. Patient denies abdominal pain, vomiting, nausea. Fevers or chills. She denies chest pain or shortness of breath. No lightheadedness, dizziness, diaphoresis, syncopal events. In the ED, creatinine is found to be 3.8 (up from baseline of ~ 1.4). Palomares catheter was placed and patient had about 150 cc of urine output. CT ABD/pelvis is negative for acute findings. Lumbar spine MRI is negative for findings of cauda equina. Patient was borderline hypotensive with systolic BPs running in the 90s, this improved after IVF. Allergies Allergy/AdvReac Type Severity Reaction Status Date / Time egg AdvReac Intermediate GI upset Verified 12/13/19 11:30 ibuprofen AdvReac Mild stomach Verified 12/13/19 11:30 irritation Home Medications Home Medications Medication Instructions Recorded Confirmed Type [place] 3-6-9 1 cap PO QAM 06/16/18 12/13/19 History aspirin [Aspirin Low Dose] 81 mg PO QAM 06/16/18 12/13/19 History atorvastatin 80 mg PO QPM 06/16/18 12/13/19 History bupropion HCl [Wellbutrin SR] 200 mg PO BIDM 06/16/18 12/13/19 History cholecalciferol (vitamin D3) 2,000 unit PO QAM 06/16/18 12/13/19 History [Vitamin D3] clotrimazole 1 applic TOPICAL BID PRN 06/16/18 12/13/19 History cyanocobalamin (vitamin B-12) 1,000 mcg PO QAM 06/16/18 12/13/19 History [Vitamin B-12] duloxetine [Cymbalta] 30 mg PO BID 06/16/18 12/13/19 History ferrous sulfate 325 mg PO QAM 06/16/18 12/13/19 History folic acid 0.8 mg PO QAM 06/16/18 12/13/19 History gabapentin [Neurontin] 300 mg PO BID 06/16/18 12/13/19 History lisinopril 10 mg PO QPM 06/16/18 12/13/19 History loratadine 10 mg PO QAM 06/16/18 12/13/19 History metoprolol succinate 25 mg PO QAM 06/16/18 12/13/19 History omeprazole 40 mg PO QAM 06/16/18 12/13/19 History Fiber Gummies 2 g PO BID 11/26/18 12/13/19 History diclofenac sodium [Voltaren] 4 g TOPICAL QID PRN 12/01/19 12/13/19 History alprazolam 1 mg PO BID PRN 12/13/19 12/13/19 History ascorbic acid (vitamin C) 250 mg PO DAILY 12/13/19 12/13/19 History docusate sodium [Colace] 100 mg PO BID PRN 12/13/19 12/13/19 History doxycycline monohydrate 100 mg PO BID 12/13/19 12/13/19 History inulin 2 g PO BID 12/13/19 12/13/19 History morphine 15 mg PO Q12H 12/13/19 12/13/19 History nystatin 1 applic TOPICAL BID 12/13/19 12/13/19 History oxycodone 5 mg PO Q8H PRN 12/13/19 12/13/19 History sennosides [Senokot] 8.6 mg PO HS PRN 12/13/19 12/13/19 History tizanidine 4 mg PO Q6H PRN 12/13/19 12/13/19 History Past Med/Surg History Medical History Anemia chronic; baseline hgb 9-10 range per chart review Anxiety and depression Aortic stenosis Mild (per cardiology review) aortic stenosis with possible bicuspid aortic valve (MG 19mmhg, NIKKIE 3.0) per 05/2018 ECHO Bullous pemphigoid CAD (coronary artery disease) non-obstructive Carotid artery stenosis "mild" Chronic back pain GERD (gastroesophageal reflux disease) controlled High cholesterol History of blood transfusion 2 Units PRBC's post-operatively Hx of falling last fall 09/2018- per patient, related to LBP/balance issues- ? r/t ambulatory dysfunction- improved with cane/walker use Hypertension Morbid obesity Osteoporosis Stage 3 chronic kidney disease Surgical History History of back surgery History of cardiac cath 2017= NO STENTS History of kyphoplasty History of right knee joint replacement Hx of laparoscopy Family History Father Stroke Mother Stroke Social History Smoking Status: Former smoker Tobacco Type: Cigarettes Second Hand Exposure: No; Hx Alcohol Use: No Hx Substance Use: No Preferred Language: Monegasque Communication Ability: Effective Visual Impairment: No Limitations Hearing Ability: Normal Licensed Final Expense Agents Required: No Beliefs That Will Affect Care: None marital status: Single Current Living Situation: Parent Current Living Situation Comment: lives with mother and sister current occupational status: unemployed and disabled Other Information That Helps Us Care for You: No Feels Safe at Home: Yes Safety Concerns: Feels Safe At This Time Assistive Devices: Cane, Glasses and Walker Review of Systems Review of Systems: ROS per HPI, all other systems reviewed and negative Physical Exam Constitutional: WD/WN, vitals as above + obese Eyes: PERRL, conjunctivae normal, anicteric sclerae ENMT: external ear and nose normal, oropharynx normal Respiratory: normal respiratory effort, lungs clear to auscultation Cardiovascular: Rate/Rhythm: regular rate and regular rhythm Heart Sounds: + murmur (Systolic, grade 3/6) Vessels: normal peripheral pulses Extremities: no edema Gastrointestinal (Abdomen): normal bowel sounds, soft, nontender, no hepatosplenomegaly Musculoskeletal: no cyanosis or clubbing, extremities motor strength 5/5 Skin: no rashes, warm and dry Neurologic: PERRL, EOMI, accommodation nl, no face palsy, no dysarthria Psychiatric: A+Ox3, euthymic affect Insight: + limited insight Genitourinary: Palomares catheter in place draining a small amount of dark yellow urine Results & Data Results & Data ([facility]) Vital Signs (Past 12 Hours) Vital Signs Temp Pulse Pulse Resp BP BP Pulse Ox 12/13/19 15:52 89 12/13/19 15:26 36.6 C 84 16 117/48 L 95 12/13/19 14:00 82 18 105/59 L 12/13/19 13:46 88 16 97/53 L 12/13/19 13:39 84 17 91/51 L 12/13/19 13:35 91 H 17 10/23/20 13:16 91 H 22 12/13/19 13:15 90 16 92/47 L 12/13/19 13:13 87 16 12/13/19 13:01 86 18 75/66 L 12/13/19 13:00 83 20 12/13/19 11:02 76 18 96 12/13/19 10:38 36.8 C 86 18 114/51 L 97 Laboratory Results Short CBC 12/13/19 Range/Units 11:30 WBC 9.94 (4.8-10.8) K/uL Hgb 9.7 L (12.0-16.0) g/dL Hct 31.4 L (37-47) % Plt Count 213 (130-400) K/uL BMP 12/13/19 11:30 Sodium 134 L Potassium 5.1 Chloride 103 Carbon Dioxide 26 BUN 30 H Creatinine 3.83 H Glucose 97 Calcium 8.4 L Cardiac Enzymes 12/13/19 Range/Units 11:30 Total Creatine Kinase 827 H (26-192) U/L CK-MB (CK-2) 18.7 H (0.5-3.6) ng/ml Troponin I < 0.015 (0-0.045) ng/ml Liver Function 12/13/19 Range/Units 11:30 Total Bilirubin 0.7 (0.2-1) mg/dl AST 47 H (15-37) U/L ALT 41 (12-78) U/L Alkaline Phosphatase 113 (45-117) U/L Albumin 3.2 L (3.4-5.0) gm/dl Urine 12/13/19 Range/Units 14:44 Urine Color Dark Yellow Urine Appearance Cloudy A (Clear) Urine pH 5.0 (4.5-7.5) Ur Specific [place] 1.027 (1.000-1.030) Urine Protein Negative (Negative) Urine Glucose (UA) Negative (Negative) Diagnostic Findings LUMBAR SPINE MRI IMPRESSION: 1. Motion degraded exam. 2. L4 burst fracture has progressively worsened from 2018 however appears unchanged from 08/17/2018. Grade 1 anterolisthesis L3 on L4 and L4 on L5 has also progressed from comparison and is likely secondary to long-standing facet arthrosis. 3. Severe central canal stenosis at L4-L5 with moderate to severe central canal stenosis at L3-L4. 4. Multilevel foraminal narrowing, most pronounced at L4-L5 and L5-S1 as above. 5. Bone marrow edema involving the lower lumbar spine and S1 is likely on a degenerative basis. CT ABD/PELVIS IMPRESSION: 1. Suboptimal evaluation due to the motion artifact and lack of contrast. 2. No definite renal stones or hydronephrosis. 3. No definite bowel wall thickening or obstruction. 4. Redemonstration of the subacute rib fractures and subacute and chronic compression fractures within the thoracic and lumbar spine. No new fractures identified. 5. The gallbladder is mildly distended. This has progressed in the interval. No gallbladder wall thickening. 6. Additional findings as described above. Code Status & VTE Plan Code Status Patient is a full code as per my discussion with her. VTE Prophylaxis Plan VTE Prophylaxis will be ordered: Yes Supervising Physician Co-Signing Physician Notes Attending Addendum: care coordinated with MAICOL meyer please refer to her notes for full details, I agree with her notes patient seen and examined, records reviewed by myself as well on exam, patient seen resting in bed, comfortable, not in distress States she feels improved compared to earlier today Urine output 250 cc per Palomares cath bag no other symptoms VS noted and reviewed oriented x 3 , not in distress, speaks in sentences with no effort nor accessory muscle use normal rate, regular rhythm, no murmurs clear breath sounds bilaterally non distended, soft, nontender no bipedal edema, erythema, warmth no neuro deficits WBC 9.94 Hg 9.7 Crea 3.8 ASSESSMENT AND PLAN ACUTE RENAL FAILURE crea 1.4--> 3.8, with oliguria etiology unclear denies NSAIDs, UA unrevealing CT abd/pelv: no obstruction IV fluids, Nephro consult, renally dose meds MULTIPLE RIB FRACTURES s/p mechanical fall other diagnoses and plan of care as per MAICOL Meyer's notes Boston Lutz MD
[2019-12-13] MEDS: NYSTATIN POWDER 15GM BTL EXT SCH (20:40)
[2019-12-13] MEDS: GABAPENTIN 300 MG CAP PO SCH (20:40)
[2019-12-13] MEDS: DOXYCYCLINE HYCLATE 100 MG CAP PO SCH (20:40)
[2019-12-13] MEDS: HEPARIN SOD 5,000 UNIT/0.5 ML VIAL SQ SCH (20:41)
[2019-12-13] MEDS ORDERED: ATORVASTATIN 40 MG TAB PO SCH (21:00)
[2019-12-13] MEDS: ACETAMINOPHEN 325 MG TAB PO PRN (22:13)
[2019-12-14] MEDS ORDERED: MELATONIN 3 MG TAB PO PRN
[2019-12-14] MEDS: HEPARIN SOD 5,000 UNIT/0.5 ML VIAL SQ SCH ×3 (05:52→20:13)
[2019-12-14 06:25] LABS: Basophils # (auto) 0.03 K/uL (0-0.2); Basophils % (auto) 0.4 %; Eosinophils # (auto) 0.29 K/uL (0-0.5); Eosinophils % (auto) 3.6 %; Hematocrit (blood only) 30.5 % (37-47); Hemoglobin 9.4 g/dL (12.0-16.0); Immature Granulocytes # (auto) 0.01 K/uL (0.00-0.02); Immature Granulocytes % (auto) 0.1 %; Lymphocytes # (auto) 1.85 K/uL (1.2-3.4); Lymphocytes % (auto) 22.9 %; Mean Corpuscular Hemoglobin 31.2 pg (25-34); Mean Corpuscular Hgb Conc 30.8 g/dL (32-36); Mean Corpuscular Volume 101.3 fL (80-100); Mean Platelet Volume 9.1 fL (7.4-10.4); Monocytes # (auto) 0.87 K/uL (0.11-0.59); Monocytes % (auto) 10.8 %; Neutrophils # (auto) 5.03 K/uL (1.4-6.5); Neutrophils % (auto) 62.2 %; Platelet Count 205 K/uL (130-400); RDW Coefficient of Variation 12.4 % (11.5-14.5); RDW Standard Deviation 45.6 fL (36.4-46.3); Red Blood Count 3.01 M/uL (4.2-5.4); White Blood Count 8.08 K/uL (4.8-10.8)
[2019-12-14 06:56] LABS: Albumin Level 2.8 gm/dl (3.4-5.0); BUN Creatinine Ratio 10.1 (10-20); Calcium 8.2 mg/dl (8.5-10.1); Creatinine Clr Calc Pharmacy 27.2 ml/min; Est GFR (African American) 17.3; Magnesium 2.3 mg/dl (1.8-2.4); Potassium 4.5 mmol/L (3.5-5.1)
[2019-12-14 06:59] LABS: Albumin Globulin Ratio 0.8 (0.9-2); Bilirubin,Total 0.6 mg/dl (0.2-1); Globulin 3.5 gm/dl (2.5-4.0); Total Protein 6.3 gm/dl (6.4-8.2)
[2019-12-14] MEDS: CYANOCOBALAMIN 500 MCG TABLET (VITAMIN B-12) PO SCH (09:21)
[2019-12-14] MEDS: FERROUS SULFATE 325 MG TAB PO SCH (09:21)
[2019-12-14] MEDS: DOXYCYCLINE HYCLATE 100 MG CAP PO SCH ×2 (09:21→20:14)
[2019-12-14] MEDS: CHOLECALCIFEROL 1,000 UNITS 25 MCG TAB PO SCH (09:21)
[2019-12-14] MEDS: NYSTATIN POWDER 15GM BTL EXT SCH ×2 (09:21→20:14)
[2019-12-14] MEDS: FOLIC ACID 400 MCG TAB PO SCH (09:21)
[2019-12-14] MEDS: ASPIRIN 81 MG ECTAB PO SCH (09:22)
[2019-12-14] MEDS: SODIUM CHLORIDE 0.9% 1000ML 1,000 ML IV SCH ×2 (09:22→15:58)
[2019-12-14] MEDS: GABAPENTIN 300 MG CAP PO SCH ×2 (09:22→20:14)
[2019-12-14] MEDS ORDERED: POLYETHYLENE (MIRALAX) 17 GM PACK PO PRN (09:29)
[2019-12-14] MEDS ORDERED: SENNA 8.6 MG TAB PO PRN (09:35)
[2019-12-14] MEDS ORDERED: DOCUSATE SODIUM 100 MG CAP PO PRN (09:40)
--- NOTE | 2019-12-14 10:24 | Orthopedic Consultation ---
Date of Consultation December 14, 2019 Assessment & Plan (1) Neurogenic claudication due to lumbar spinal stenosis: This time the patient has multiple medical problems struggling with morbid obesity and is a very poor surgical candidate. I recommend that she continue weight loss program and follow-up with her interventional pain management physician. Present on Admission?: Yes History of Present Illness Reason for Consultation: Chronic back and leg pain Attending Physician: Jorden Enriquez MD History of Present Illness This is a 64-year-old female with history of chronic back and leg pain for several years. She is managed with epidural injections in the past. She states she is trying to lose weight. She is walking at home with a walker. She states she can only walk several feet before she must rest. She does have some pain extending left lower extremity. Allergies Allergy/AdvReac Type Severity Reaction Status Date / Time egg AdvReac Intermediate GI upset Verified 12/13/19 11:30 ibuprofen AdvReac Mild stomach Verified 12/13/19 11:30 irritation Home Medications Home Medications Medication Instructions Recorded Confirmed Type [place] 3-6-9 1 cap PO QAM 06/16/18 12/13/19 History aspirin [Aspirin Low Dose] 81 mg PO QAM 06/16/18 12/13/19 History atorvastatin 80 mg PO QPM 06/16/18 12/13/19 History bupropion HCl [Wellbutrin SR] 200 mg PO BIDM 06/16/18 12/13/19 History cholecalciferol (vitamin D3) 2,000 unit PO QAM 06/16/18 12/13/19 History [Vitamin D3] clotrimazole 1 applic TOPICAL BID PRN 06/16/18 12/13/19 History cyanocobalamin (vitamin B-12) 1,000 mcg PO QAM 06/16/18 12/13/19 History [Vitamin B-12] duloxetine [Cymbalta] 30 mg PO BID 06/16/18 12/13/19 History ferrous sulfate 325 mg PO QAM 06/16/18 12/13/19 History folic acid 0.8 mg PO QAM 06/16/18 12/13/19 History gabapentin [Neurontin] 300 mg PO BID 06/16/18 12/13/19 History lisinopril 10 mg PO QPM 06/16/18 12/13/19 History loratadine 10 mg PO QAM 06/16/18 12/13/19 History metoprolol succinate 25 mg PO QAM 06/16/18 12/13/19 History omeprazole 40 mg PO QAM 06/16/18 12/13/19 History Fiber Gummies 2 g PO BID 11/26/18 12/13/19 History diclofenac sodium [Voltaren] 4 g TOPICAL QID PRN 12/01/19 12/13/19 History alprazolam 1 mg PO BID PRN 12/13/19 12/13/19 History ascorbic acid (vitamin C) 250 mg PO DAILY 12/13/19 12/13/19 History docusate sodium [Colace] 100 mg PO BID PRN 12/13/19 12/13/19 History doxycycline monohydrate 100 mg PO BID 12/13/19 12/13/19 History inulin 2 g PO BID 12/13/19 12/13/19 History morphine 15 mg PO Q12H 12/13/19 12/13/19 History nystatin 1 applic TOPICAL BID 12/13/19 12/13/19 History oxycodone 5 mg PO Q8H PRN 12/13/19 12/13/19 History sennosides [Senokot] 8.6 mg PO HS PRN 12/13/19 12/13/19 History tizanidine 4 mg PO Q6H PRN 12/13/19 12/13/19 History Patient History Medical History Anemia chronic; baseline hgb 9-10 range per chart review Anxiety and depression Aortic stenosis Mild (per cardiology review) aortic stenosis with possible bicuspid aortic valve (MG 19mmhg, NIKKIE 3.0) per 05/2018 ECHO Bullous pemphigoid CAD (coronary artery disease) non-obstructive Carotid artery stenosis "mild" Chronic back pain GERD (gastroesophageal reflux disease) controlled High cholesterol History of blood transfusion 2 Units PRBC's post-operatively Hx of falling last fall 09/2018- per patient, related to LBP/balance issues- ? r/t ambulatory dysfunction- improved with cane/walker use Hypertension Morbid obesity Osteoporosis Stage 3 chronic kidney disease Surgical History History of back surgery History of cardiac cath 2017= NO STENTS History of kyphoplasty History of right knee joint replacement Hx of laparoscopy Family History Father Stroke Mother Stroke Social History Smoking Status: Former smoker Tobacco Type: Cigarettes Second Hand Exposure: No; Hx Alcohol Use: No Hx Substance Use: No Preferred Language: Japanese Communication Ability: Effective Visual Impairment: No Limitations Hearing Ability: Normal Moth Exterminator Required: No Beliefs That Will Affect Care: None marital status: Single Current Living Situation: Parent Current Living Situation Comment: lives with mother and sister current occupational status: unemployed and disabled Other Information That Helps Us Care for You: No Feels Safe at Home: Yes Safety Concerns: Feels Safe At This Time Assistive Devices: Cane, Glasses and Walker Physical Exam Physical Exam: On exam she is sitting up at the bedside. Is reasonable strength testing bilateral extremities. Strength is intact. Results & Data ([facility]) Vital Signs (Past 12 Hours) Vital Signs Temp Pulse Pulse Pulse Resp BP Pulse Ox 12/14/19 08:00 36.5 C 87 18 132/68 98 12/14/19 03:35 36.7 C 81 19 106/66 99 12/13/19 23:09 37.1 C 67 18 94/66 L 96 12/13/19 22:55 85
--- NOTE | 2019-12-14 10:29 | XRay Report ---
KUR[facility]aela CLINICAL HISTORY: Constipation COMPARISON STUDY: CT of the abdomen and pelvis December 13, 2019. FINDINGS: Postsurgical findings within the right lower quadrant are incidentally noted. The bowel gas pattern is normal. There is a moderate amount of stool within the colon and rectum. Although sensiti vity is diminished on this supine exam, there is no evidence for free air. IMPRESSION: 1. No evidence for a bowel obstruction. 2. Moderate amount of stool within the colon and rectum. ACT 112: Negative or not required by law. Electronically signed by: Ovidio Dunn M.D. 12/14/2019 10:28 AM
[2019-12-14] MEDS ORDERED: POLYETHYLENE (MIRALAX) 17 GM PACK PO ONE (10:52)
[2019-12-14] MEDS: DOCUSATE SODIUM 100 MG CAP PO SCH ×2 (12:06→20:14)
[2019-12-14] MEDS: PANTOprazole 40 MG TAB PO SCH (12:07)
[2019-12-14] MEDS: METOPROLOL SUCC 25MG EXT REL TAB PO SCH (12:07)
--- NOTE | 2019-12-14 12:14 | Urology Consultation ---
Date of Consultation December 14, 2019 Assessment & Plan (1) Renal failure: (2) Acute urinary retention: Patient with severe multiple issues and currently admitted due to spinal issues. Patient had decreased mobility, deconditioned state, multiple medications, constipation issues, and dealing with acute illness. Discussed multifactorial causes for retention issues. Patient does have family history that her mother also has considerable issues if she ever ends up hospitalized with illness. Patient has not had work-up for urologic problems in the past. Discussed different options. Discussed imaging which was reviewed interpreted by myself. Discussed patient's complicated medical and surgical history. This was reviewed and summarized above. Plans moving forward will be to maintain catheter for approximately 1-2 more days. Allow decompression of the bladder and monitor renal function over time. Continue with hydration and supportive care. We can attempt to remove catheter prior to discharge and give patient trial of void. If necessary patient may need to maintain catheter until follow-up. Will likely need outpatient follow- up to work-up further for other causes and issues. We will also try to determine possible ways to prevent future issues with different hospitalizations and illness. We will continue to monitor. Call if any changes or issues. History of Present Illness Attending Physician: Jorden Enriquez MD History of Present Illness Consult for urinary issues with incomplete emptying and possible retention. Patient has mild to moderate discomfort in pelvis and groin going to back and side in waves. Is dealing with acute illness. Has been deconditioned from this. Has decreased mobility significantly with acute issues. Patient has not had complete return to normal bowel function. Has had some minor urinary issues in the past. Denies bleeding. No severe nausea or vomiting. Currently no fevers. Discussed with patient multifactorial nature of urinary issues, retention, and incomplete bladder emptying. Discussed concerns and issues. Discussed decreased mobility and trouble voiding. Discussed issues related to deconditioning and weakened state. Discussed possibility that patient had more moderate to severe issues and with the acute illness and deconditioning these issues became more prevalent and obvious. Discussed bowel function and possible issues related to decrease in function and its relation to other pelvic organs and systems. Discussed different medications, will use during hospitalization and their effect on ability to empty. Patient states her mother requires catheterization with every hospitalization and she also goes into retention with acute illness. She has never had urologic work-up . No other major changes or issues Allergies Allergy/AdvReac Type Severity Reaction Status Date / Time egg AdvReac Intermediate GI upset Verified 12/13/19 11:30 ibuprofen AdvReac Mild stomach Verified 12/13/19 11:30 irritation Home Medications Home Medications Medication Instructions Recorded Confirmed Type [place] 3-6-9 1 cap PO QAM 06/16/18 12/13/19 History aspirin [Aspirin Low Dose] 81 mg PO QAM 06/16/18 12/13/19 History atorvastatin 80 mg PO QPM 06/16/18 12/13/19 History bupropion HCl [Wellbutrin SR] 200 mg PO BIDM 06/16/18 12/13/19 History cholecalciferol (vitamin D3) 2,000 unit PO QAM 06/16/18 12/13/19 History [Vitamin D3] clotrimazole 1 applic TOPICAL BID PRN 06/16/18 12/13/19 History cyanocobalamin (vitamin B-12) 1,000 mcg PO QAM 06/16/18 12/13/19 History [Vitamin B-12] duloxetine [Cymbalta] 30 mg PO BID 06/16/18 12/13/19 History ferrous sulfate 325 mg PO QAM 06/16/18 12/13/19 History folic acid 0.8 mg PO QAM 06/16/18 12/13/19 History gabapentin [Neurontin] 300 mg PO BID 06/16/18 12/13/19 History lisinopril 10 mg PO QPM 06/16/18 12/13/19 History loratadine 10 mg PO QAM 06/16/18 12/13/19 History metoprolol succinate 25 mg PO QAM 06/16/18 12/13/19 History omeprazole 40 mg PO QAM 06/16/18 12/13/19 History Fiber Gummies 2 g PO BID 11/26/18 12/13/19 History diclofenac sodium [Voltaren] 4 g TOPICAL QID PRN 12/01/19 12/13/19 History alprazolam 1 mg PO BID PRN 12/13/19 12/13/19 History ascorbic acid (vitamin C) 250 mg PO DAILY 12/13/19 12/13/19 History docusate sodium [Colace] 100 mg PO BID PRN 12/13/19 12/13/19 History doxycycline monohydrate 100 mg PO BID 12/13/19 12/13/19 History inulin 2 g PO BID 12/13/19 12/13/19 History morphine 15 mg PO Q12H 12/13/19 12/13/19 History nystatin 1 applic TOPICAL BID 12/13/19 12/13/19 History oxycodone 5 mg PO Q8H PRN 12/13/19 12/13/19 History sennosides [Senokot] 8.6 mg PO HS PRN 12/13/19 12/13/19 History tizanidine 4 mg PO Q6H PRN 12/13/19 12/13/19 History Patient History Medical History Anemia chronic; baseline hgb 9-10 range per chart review Anxiety and depression Aortic stenosis Mild (per cardiology review) aortic stenosis with possible bicuspid aortic valve (MG 19mmhg, NIKKIE 3.0) per 05/2018 ECHO Bullous pemphigoid CAD (coronary artery disease) non-obstructive Carotid artery stenosis "mild" Chronic back pain GERD (gastroesophageal reflux disease) controlled High cholesterol History of blood transfusion 2 Units PRBC's post-operatively Hx of falling last fall 09/2018- per patient, related to LBP/balance issues- ? 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 Patient is well nourished and well kept. Morbidly obese. HEENT: Normocephalic Atraumatic. Inspection normal. Cranial Nerves 2-12 Grossly intact. Nares are clear. Neck is supple. Normal inspection of face. Normal inspection of neck. Neurologic: No deficits on inspection. Baseline for motor function and sensory. Psychologic: Normal affect. Respiratory: Nonlabored. No use of accessory muscles. No tachypnea or dyspnea. Cardiovascular: No tachycardia Skin: [place] and Dry. No rashes or visible lesions. Extremities: Moving without issues. No motor deficits on inspection Lymphatics: No edema Abdomen: Soft Non-distended. No acites. No rebound or guarding. Morbidly obese. : Lynn in place draining clear yellow urine Results & Data ([facility]) Vital Signs (Past 12 Hours) Vital Signs Temp Pulse Pulse Resp BP Pulse Ox 12/14/19 08:00 36.5 C 87 18 132/68 98 12/14/19 03:35 36.7 C 81 19 106/66 99 PG Care Time/CCT Total # of Minutes Spent Total Time Spent with Patient: Total time spent is greater than 50% in coordination of care (as documented) at patient's floor/unit and/or counseling patient: Coding Level of Care Code 77510 Initial Inpt Care Lvl 3 Diagnoses Renal failure N17.9 Acute renal failure type: unspecified Renal failure chronicity: acute Acute urinary retention R33.8 (1) Renal failure Acute renal failure type: unspecified Renal failure chronicity: acute Qualified Code(s): N17.9 - Acute kidney failure, unspecified
[2019-12-14] MEDS ORDERED: NITROGLYCERIN SL 0.4 MG/TAB TAB SL PRN (12:42)
[2019-12-14 15:22] LABS: Bacteria Urine Automated Negative (Negative); Epithelial Cell Urine Auto >30 /lpf (0-5)
[2019-12-14 15:37] LABS: Creatinine Urine Random 66.4 mg/dl; Total Protein Urine Random 9.8 mg/dl (0-11.9)
--- NOTE | 2019-12-14 15:48 | Nephrology Consultation ---
Date of Consultation December 14, 2019 Assessment & Plan (1) Renal failure: Acute renal failure-Unknown etiology but most likely likely prerenal/ATN Renal functions are started showing improvement with fluid resuscitation. Agree with aggressive fluid resuscitation. DC lisinopril No indication for dialysis at the moment. Avoid nephrotoxic medication renally dose all other medications. Keep MAP more than 65 mm We will do a complete EDYTA screen Urine sodium urine creatinine urine protein with complement C3-C4 C 50, MONSE ANCA. Urinalysis microscopy Ultrasound scan of the kidneys and urinary tract. Present on Admission?: Yes (2) Acute urinary retention: Reviewed by urology,recommended Lynn's ,no surgical intervention planned at the moment the orthopedics . History of Present Illness Reason for Consultation: Acute on Chronic kidney injury History of Present Illness This a 64-year-old female with a past history of hypertension and stage III CKD who presented to the ER with a 3 to 4 days history of inability to void or open bowels. CT abdomen rule out any obstruction, Apparently she was prescribed morphine for pain after she had presented in the ER with a mechanical fall on the Nov, She complained of dryness, denied using any NSAIDs ,Advil ,Aleve ,any other over -the-counter medications for her pain. No complaints of abdominal pain ,nausea ,vomiting ,fever ,chills, shortness of breath, or syncopal episode diaphoresis or dizziness.She denies any previous renal problems, history of proteinuria or hematuria in the past, no renal stones or any renal problems in the family Blood work in the ER was significant for creatinine of 3.8(baseline creatinine of around 1.4-1.5). Imaging was negative for any acute cauda equina patient .Radha was initially hypotensive and responded well to fluid resuscitation. Allergies Allergy/AdvReac Type Severity Reaction Status Date / Time egg AdvReac Intermediate GI upset Verified 12/13/19 11:30 ibuprofen AdvReac Mild stomach Verified 12/13/19 11:30 irritation Home Medications Home Medications Medication Instructions Recorded Confirmed Type [place] 3-6-9 1 cap PO QAM 06/16/18 12/13/19 History aspirin [Aspirin Low Dose] 81 mg PO QAM 06/16/18 12/13/19 History atorvastatin 80 mg PO QPM 06/16/18 12/13/19 History bupropion HCl [Wellbutrin SR] 200 mg PO BIDM 06/16/18 12/13/19 History cholecalciferol (vitamin D3) 2,000 unit PO QAM 06/16/18 12/13/19 History [Vitamin D3] clotrimazole 1 applic TOPICAL BID PRN 06/16/18 12/13/19 History cyanocobalamin (vitamin B-12) 1,000 mcg PO QAM 06/16/18 12/13/19 History [Vitamin B-12] duloxetine [Cymbalta] 30 mg PO BID 06/16/18 12/13/19 History ferrous sulfate 325 mg PO QAM 06/16/18 12/13/19 History folic acid 0.8 mg PO QAM 06/16/18 12/13/19 History gabapentin [Neurontin] 300 mg PO BID 06/16/18 12/13/19 History lisinopril 10 mg PO QPM 06/16/18 12/13/19 History loratadine 10 mg PO QAM 06/16/18 12/13/19 History metoprolol succinate 25 mg PO QAM 06/16/18 12/13/19 History omeprazole 40 mg PO QAM 06/16/18 12/13/19 History Fiber Gummies 2 g PO BID 11/26/18 12/13/19 History diclofenac sodium [Voltaren] 4 g TOPICAL QID PRN 12/01/19 12/13/19 History alprazolam 1 mg PO BID PRN 12/13/19 12/13/19 History ascorbic acid (vitamin C) 250 mg PO DAILY 12/13/19 12/13/19 History docusate sodium [Colace] 100 mg PO BID PRN 12/13/19 12/13/19 History doxycycline monohydrate 100 mg PO BID 12/13/19 12/13/19 History inulin 2 g PO BID 12/13/19 12/13/19 History morphine 15 mg PO Q12H 12/13/19 12/13/19 History nystatin 1 applic TOPICAL BID 12/13/19 12/13/19 History oxycodone 5 mg PO Q8H PRN 12/13/19 12/13/19 History sennosides [Senokot] 8.6 mg PO HS PRN 12/13/19 12/13/19 History tizanidine 4 mg PO Q6H PRN 12/13/19 12/13/19 History nitroglycerin 0.4 mg SUBLINGUAL UD PRN 12/14/19 12/14/19 History Patient History Medical History (Updated 12/14/19 @ 15:52 by Martha Snyder MD) Acute urinary retention Anemia chronic; baseline hgb 9-10 range per chart review Anxiety and depression Aortic stenosis Mild (per cardiology review) aortic stenosis with possible bicuspid aortic valve (MG 19mmhg, NIKKIE 3.0) per 05/2018 ECHO Bullous pemphigoid CAD (coronary artery disease) non-obstructive Carotid artery stenosis "mild" Chronic back pain GERD (gastroesophageal reflux disease) controlled High cholesterol History of blood transfusion 2 Units PRBC's post-operatively Hx of falling last fall 09/2018- per patient, related to LBP/balance issues- ? r/t ambulatory dysfunction- improved with cane/walker use Hypertension Morbid obesity Osteoporosis Renal failure Stage 3 chronic kidney disease Surgical History History of back surgery History of cardiac cath 2017= NO STENTS History of kyphoplasty History of right knee joint replacement Hx of laparoscopy Family History Father Stroke Mother Stroke Social History Smoking Status: Former smoker Tobacco Type: Cigarettes Second Hand Exposure: No; Hx Alcohol Use: No Hx Substance Use: No Preferred Language: Kinyarwanda Communication Ability: Effective Visual Impairment: No Limitations Hearing Ability: Normal Gas Distribution Supervisor Required: No Beliefs That Will Affect Care: None marital status: Single Current Living Situation: Parent Current Living Situation Comment: lives with mother and sister current occupational status: unemployed and disabled Other Information That Helps Us Care for You: No Feels Safe at Home: Yes Safety Concerns: Feels Safe At This Time Assistive Devices: Cane, Glasses and Walker Review of Systems Review of Systems: All systems reviewed & are unremarkable except as noted in HPI & below Physical Exam Physical Exam: General: Alert and oriented x 3 in no acute distress. Patient is well nourished and well kept. Morbidly obese. HEENT: Normocephalic Atraumatic. Inspection normal. Cranial Nerves 2-12 Grossly intact. Nares are clear. Neck is supple. Normal inspection of face. Normal inspection of neck. Neurologic: No deficits on inspection. Baseline for motor function and sensory. Psychologic: Normal affect. Respiratory: Nonlabored. No use of accessory muscles. No tachypnea or dyspnea. Cardiovascular: No tachycardia Skin: [place] and Dry. No rashes or visible lesions. Extremities: Moving without issues. No motor deficits on inspection Lymphatics: No edema Abdomen: Soft Non-distended. No acites. No rebound or guarding. Morbidly obese. : Lynn in place draining clear yellow urine Results & Data ([facility]) Vital Signs (Past 12 Hours) Vital Signs Temp Pulse Pulse Resp BP Pulse Ox 12/14/19 12:12 36.5 C 83 16 143/79 H 96 12/14/19 08:00 36.5 C 85 87 18 132/68 98 12/14/19 06:10 12/14/19 06:10 (1) Renal failure Acute renal failure type: unspecified Renal failure chronicity: acute Qualified Code(s): N17.9 - Acute kidney failure, unspecified
--- NOTE | 2019-12-14 16:02 | Hospitalist Progress Note ---
Date of Service December 14, 2019 Assessment & Plan (1) Acute kidney injury superimposed on chronic kidney disease: (2) Stage 3 chronic kidney disease: (3) Oliguria: EDYTA on CKD III --CT ABD:Suboptimal evaluation due to the motion artifact and lack of contrast. No definite renal stones or hydronephrosis. No definite bowel wall thickening or obstruction. Redemonstration of the subacute rib fractures and subacute and chronic compression fractures within the thoracic and lumbar spine. No new fractures identified. The gallbladder is mildly distended. This has progressed in the interval. No gallbladder wall thickening. -? Prerenal/Obstructive, R/O ATN -Lisinopril held -Urine microscopy, serology, lytes as per Nephrology -Appreciate Nephrology Input -Continue IV fluids -Cr:3.83>3.17 -No indication for dialysis currently -Monitor CK levels -Hold statin for now Acute urinary retention CT ABD as above Maintain Lynn catheter for 1 to 2 days Monitor renal function Continue IV fluids Voiding trial as able Appreciate urology input Constipation KUB:No evidence for a bowel obstruction. Moderate amount of stool within the colon and rectum. Started on bowel regimen Encourage to ambulate Lumbar spinal stenosis Neurogenic claudication -MRI Lumbar Spine: L4 burst fracture has progressively worsened from 2018 however appears unchanged from 08/17/2018. Grade 1 anterolisthesis L3 on L4 and L4 on L5 has also progressed from comparison and is likely secondary to long- standing facet arthrosis. Severe central canal stenosis at L4-L5 with moderate to severe central canal stenosis at L3-L4. Multilevel foraminal narrowing, most pronounced at L4-L5 and L5-S1 as above. Bone marrow edema involving the lower lumbar spine and S1 is likely on a degenerative basis. -Poor surgical candidate -Appreciate orthopedics input -Follows with pain management as outpatient -Pain control, PT OT (4) Multiple rib fractures: H/O fall ~2 weeks ago Multiple rib fractures Incentive spirometer (5) Anxiety and depression: On bupropion, duloxetine Resume meds as able (6) Bullous pemphigoid: On doxycycline suppressive therapy (7) CAD (coronary artery disease): Continue aspirin, metoprolol Resume statin as able (8) Hypertension: BP low on presentation BP better with IV fluids Continue metoprolol Lisinopril on hold due to EDYTA (9) DVT prophylaxis: SQ heparin Code Status Full Code Admission and Anticipated Discharge Date Admission Date: December 13, 2019 Subjective Patient is seen and examined at bedside Patient had transient chest pain which resolved with nitroglycerin Reports urinary retention, constipation, back pain KUB suggestive of Moderate amount of stool within the colon and rectum Currently denies chest pain, dyspnea abdominal pain, dizziness, nausea Offers no other complaints Review of Systems Review of Systems: All systems reviewed & are unremarkable except as noted in HPI & below Physical Exam Physical Exam: Physical Exam: Vitals signs as noted above General Appearance:Morbidly Obese, no apparent distress Head: normocephalic, Atraumatic Eyes: normal inspection, EOMI Neck: supple, Trachea midline Respiratory/Chest: Normal breath sounds, CTA Cardiovascular: S1, S2, + murmur Back:tender Abdomen/GI:Soft, Non tender, Bowel sounds present Extremities/Musculoskelatal:normal inspection, Trace edema Neurologic/Psych:AAOX3, grossly no focal neurological deficits Skin: normal color, warm Results & Data Results & Data ([facility]) Vital Signs (Past 12 Hours) Vital Signs Temp Pulse Pulse Resp BP Pulse Ox 12/14/19 12:12 36.5 C 83 16 143/79 H 96 12/14/19 08:00 36.5 C 85 87 18 132/68 98 Laboratory Results Short CBC 12/14/19 Range/Units 06:10 WBC 8.08 (4.8-10.8) K/uL Hgb 9.4 L (12.0-16.0) g/dL Hct 30.5 L (37-47) % Plt Count 205 (130-400) K/uL BMP 12/14/19 06:10 Sodium 137 Potassium 4.5 Chloride 107 Carbon Dioxide 24 BUN 32 H Creatinine 3.17 H D Glucose 101 H Calcium 8.2 L Cardiac Enzymes 12/14/19 Range/Units 06:10 Total Creatine Kinase 844 H (26-192) U/L Liver Function 12/14/19 Range/Units 06:10 Total Bilirubin 0.6 (0.2-1) mg/dl AST 43 H (15-37) U/L ALT 37 (12-78) U/L Alkaline Phosphatase 110 (45-117) U/L Albumin 2.8 L (3.4-5.0) gm/dl
--- NOTE | 2019-12-14 17:59 | Ultrasound Report ---
RENAL ULTRASOUND CLINICAL HISTORY: acute on chronic renal failure COMPARISON STUDY: CT of the abdomen and pelvis December 13, 2019. TECHNIQUE: Sonography of the kidneys and the urinary bladder was performed. FINDINGS: This exam is compromised by suboptimal penetration. However, there is no hydronephrosis. Th e right kidney measures 8.8 cm in maximal dimension and the left measures 8.2 cm. No renal calculus o r mass is identified. The bladder is collapsed. There is a Lynn balloon within the bladder. IMPRESSION: 1. No hydronephrosis. 2. Moderate bilateral renal atrophy. ACT 112: Negative or not required by law. Electronically signed by: Ovidio Dunn M.D. 12/14/2019 5:58 PM
[2019-12-14] MEDS ORDERED: ALUMINUM/MAGNESIUM/SIMETH (MAALOX MAX) 30 ML UDC PO PRN (18:41)
[2019-12-14] MEDS: SENNA 8.6 MG TAB PO SCH (20:14)
[2019-12-14] MEDS: ACETAMINOPHEN 325 MG TAB PO PRN (20:18)
[2019-12-15] MEDS: SODIUM CHLORIDE 0.9% 1000ML 1,000 ML IV SCH ×4 (00:03→17:44)
[2019-12-15] MEDS ORDERED: HYDROmorphone INJ 0.5 MG/0.5 ML SYR IV PRN (01:52)
[2019-12-15] MEDS: traMADol HCL 50 MG TABLET PO PRN ×2 (02:04→23:22)
[2019-12-15] MEDS: HEPARIN SOD 5,000 UNIT/0.5 ML VIAL SQ SCH ×3 (05:39→21:24)
[2019-12-15 06:35] LABS: Hematocrit (blood only) 31.7 % (37-47); Hemoglobin 9.5 g/dL (12.0-16.0)
[2019-12-15 06:58] LABS: BUN Creatinine Ratio 15.9 (10-20); Calcium 7.8 mg/dl (8.5-10.1); Creatinine Clr Calc Pharmacy 52.1 ml/min; Est GFR (African American) 37.3; Est GFR (Non-African American) 32.2; Magnesium 2.1 mg/dl (1.8-2.4)
--- NOTE | 2019-12-15 07:23 | Nephrology Progress Note ---
Date of Service December 15, 2019 Assessment & Plan (1) Renal failure: Acute renal failure-Likely prerenal/ATN Renal functions improved with fluid resuscitation. DC lisinopril No indication for dialysis at the moment. Avoid nephrotoxic medication renally dose all other medications. Keep MAP more than 65 mm USS shows bilateral small kidneys. has abackground of CKD Urine studies unrevealing, complement C3-C4 C 50, MONSE ANCA Pending, Urinalysis microscopy shows 5-10 RBC,repeat again, If still shows RBC, order IgA,Rhabdo improving, . (2) Acute urinary retention: Reviewed by urology,recommended Lynn's ,no surgical intervention planned at the moment the orthopedics . Admission and Anticipated Discharge Date Admission Date: December 13, 2019 Subjective Lying in bed comfortably, Good urine output, Review of Systems Review of Systems: All systems reviewed & are unremarkable except as noted in HPI & below Physical Exam Physical Exam: General: Alert and oriented x 3 in no acute distress. Patient is well nourished and well kept. Morbidly obese. HEENT: Normocephalic Atraumatic. Inspection normal. Cranial Nerves 2-12 Grossly intact. Nares are clear. Neck is supple. Normal inspection of face. Normal inspection of neck. Neurologic: No deficits on inspection. Baseline for motor function and sensory. Psychologic: Normal affect. Respiratory: Nonlabored. No use of accessory muscles. No tachypnea or dyspnea. Cardiovascular: No tachycardia Skin: [place] and Dry. No rashes or visible lesions. Extremities: Moving without issues. No motor deficits on inspection Lymphatics: No edema Abdomen: Soft Non-distended. No acites. No rebound or guarding. Morbidly obese. : Lynn in place draining clear yellow urine Results & Data ([facility]) Vital Signs (Past 12 Hours) Vital Signs Temp Pulse Pulse Resp BP Pulse Ox 12/15/19 03:26 36.4 C L 71 18 111/69 98 12/14/19 23:48 75 12/14/19 23:24 36.5 C 69 20 98/56 L 95 12/14/19 20:22 36.5 C 73 20 115/56 L 95 Laboratory Results 12/15/19 05:25 12/15/19 05:25 (1) Renal failure Acute renal failure type: unspecified Renal failure chronicity: acute Qualified Code(s): N17.9 - Acute kidney failure, unspecified
[2019-12-15] MEDS: DOCUSATE SODIUM 100 MG CAP PO SCH ×2 (09:21→19:30)
[2019-12-15] MEDS: DOXYCYCLINE HYCLATE 100 MG CAP PO SCH ×2 (09:21→19:29)
[2019-12-15] MEDS: CHOLECALCIFEROL 1,000 UNITS 25 MCG TAB PO SCH (09:21)
[2019-12-15] MEDS: PANTOprazole 40 MG TAB PO SCH (09:21)
[2019-12-15] MEDS: GABAPENTIN 300 MG CAP PO SCH ×2 (09:21→19:30)
[2019-12-15] MEDS: LORATADINE 10 MG TAB PO SCH (09:21)
[2019-12-15] MEDS: ASPIRIN 81 MG ECTAB PO SCH (09:21)
[2019-12-15] MEDS: METOPROLOL SUCC 25MG EXT REL TAB PO SCH (09:22)
[2019-12-15] MEDS: CYANOCOBALAMIN 500 MCG TABLET (VITAMIN B-12) PO SCH (09:22)
[2019-12-15] MEDS: FOLIC ACID 400 MCG TAB PO SCH (09:22)
[2019-12-15] MEDS: FERROUS SULFATE 325 MG TAB PO SCH (09:22)
[2019-12-15] MEDS: NYSTATIN POWDER 15GM BTL EXT SCH ×2 (09:23→19:32)
[2019-12-15] MEDS: ACETAMINOPHEN 325 MG TAB PO PRN (10:49)
--- NOTE | 2019-12-15 16:51 | Hospitalist Progress Note ---
Date of Service December 15, 2019 Assessment & Plan (1) Acute kidney injury superimposed on chronic kidney disease: (2) Stage 3 chronic kidney disease: (3) Oliguria: EDYTA on CKD III --CT ABD:Suboptimal evaluation due to the motion artifact and lack of contrast. No definite renal stones or hydronephrosis. No definite bowel wall thickening or obstruction. Redemonstration of the subacute rib fractures and subacute and chronic compression fractures within the thoracic and lumbar spine. No new fractures identified. The gallbladder is mildly distended. This has progressed in the interval. No gallbladder wall thickening. -Prerenal/Obstructive/ATN -Mild Rhabdomyolysis -Lisinopril held -Serology pending -Appreciate Nephrology Input -Cr:3.83>3.17>1.68 -CK levels improving -No indication for dialysis currently -Monitor CK levels -Hold statin for now -Continue IV fluids Acute urinary retention CT ABD as above Maintain Lynn catheter for today Monitor renal function Continue IV fluids Voiding trial tomorrow Appreciate urology input Constipation KUB:No evidence for a bowel obstruction. Moderate amount of stool within the colon and rectum. Likely due to Narcotics Oxycodone discontinued Had BM Continue bowel regimen Encourage to ambulate Lumbar spinal stenosis Neurogenic claudication -MRI Lumbar Spine: L4 burst fracture has progressively worsened from 2018 however appears unchanged from 08/17/2018. Grade 1 anterolisthesis L3 on L4 and L4 on L5 has also progressed from comparison and is likely secondary to long- standing facet arthrosis. Severe central canal stenosis at L4-L5 with moderate to severe central canal stenosis at L3-L4. Multilevel foraminal narrowing, most pronounced at L4-L5 and L5-S1 as above. Bone marrow edema involving the lower lumbar spine and S1 is likely on a degenerative basis. -Poor surgical candidate -Appreciate orthopedics input -Follows with pain management as outpatient -Pain control, PT OT (4) Multiple rib fractures: H/O fall ~2 weeks ago Multiple rib fractures Incentive spirometer (5) Anxiety and depression: On bupropion, duloxetine Patient states the medications not helping at baseline Resume bupropion and duloxetine at reduced dose (6) Bullous pemphigoid: On doxycycline suppressive therapy (7) CAD (coronary artery disease): Continue aspirin, metoprolol Resume statin as able (8) Hypertension: BP stable after IV fluids Continue metoprolol Lisinopril on hold due to EDYTA (9) DVT prophylaxis: SQ heparin Code Status Full Code Admission and Anticipated Discharge Date Admission Date: December 13, 2019 Subjective Patient is seen and examined at bedside Had BM Reports back and rib pain Renal function improving Denies chest pain, dyspnea abdominal pain, dizziness, nausea Offers no other complaints Review of Systems Review of Systems: All systems reviewed & are unremarkable except as noted in HPI & below Physical Exam Physical Exam: Physical Exam: Vitals signs as noted above General Appearance:Morbidly Obese, no apparent distress Head: normocephalic, Atraumatic Eyes: normal inspection, EOMI Neck: supple, Trachea midline Respiratory/Chest: Normal breath sounds, CTA Cardiovascular: S1, S2, + murmur Back:tender Abdomen/GI:Soft, Non tender, Bowel sounds present Extremities/Musculoskelatal:normal inspection, Trace edema Neurologic/Psych:AAOX3, grossly no focal neurological deficits Skin: normal color, warm Results & Data Results & Data ([facility]) Vital Signs (Past 12 Hours) Vital Signs Temp Pulse Pulse Resp BP Pulse Ox 12/15/19 15:41 36.5 C 76 18 148/84 H 98 12/15/19 11:50 37 C 74 20 145/84 H 98 12/15/19 08:35 36.4 C L 84 18 143/81 H 97 12/15/19 08:00 68 Laboratory Results Short CBC 12/15/19 Range/Units 05:25 Hgb 9.5 L (12.0-16.0) g/dL Hct 31.7 L (37-47) % BMP 12/15/19 05:25 Sodium 141 Potassium 5.0 Chloride 114 H Carbon Dioxide 24 BUN 27 H Creatinine 1.68 H D Glucose 89 Calcium 7.8 L Cardiac Enzymes 12/15/19 Range/Units 05:25 Total Creatine Kinase 571 H (26-192) U/L
[2019-12-15] MEDS: DULoxetine HCL 20 MG CAP PO SCH (19:30)
[2019-12-15] MEDS: SENNA 8.6 MG TAB PO SCH (19:30)
--- NOTE | 2019-12-15 21:48 | Electrocardiogram Report ---
Test Reason : Blood Pressure : / mmHG Vent. Rate : 086 BPM Atrial Rate : 086 BPM P-R Int : 152 ms QRS Dur : 080 ms QT Int : 364 ms P-R-T Axes : 030 039 044 degrees QTc Int : 435 ms Normal sinus rhythm Normal ECG When compared with ECG of 13-DEC-2019 12:56, No significant change was found Confirmed by Shaun Queen ([id number]) on 12/15/2019 9:48:27 PM Referred By: REFERRED SELF Confirmed By:Shaun Queen
[2019-12-16] MEDS: SODIUM CHLORIDE 0.9% 1000ML 1,000 ML IV SCH (01:22)
[2019-12-16] MEDS: traMADol HCL 50 MG TABLET PO PRN (03:47)
[2019-12-16] MEDS: HEPARIN SOD 5,000 UNIT/0.5 ML VIAL SQ SCH ×2 (05:39→15:13)
[2019-12-16 07:05] LABS: Hematocrit (blood only) 32.6 % (37-47); Hemoglobin 10.1 g/dL (12.0-16.0)
[2019-12-16 07:45] LABS: BUN Creatinine Ratio 13.2 (10-20); Calcium 8.2 mg/dl (8.5-10.1); Creatinine Clr Calc Pharmacy 67.1 ml/min; Est GFR (African American) 51.4; Est GFR (Non-African American) 44.3
[2019-12-16] MEDS ORDERED: buPROPion SR 100 MG TABCR PO SCH (08:00)
[2019-12-16] MEDS: DOCUSATE SODIUM 100 MG CAP PO SCH (08:32)
[2019-12-16] MEDS: DOXYCYCLINE HYCLATE 100 MG CAP PO SCH (08:32)
[2019-12-16] MEDS: GABAPENTIN 300 MG CAP PO SCH (08:33)
[2019-12-16] MEDS: CYANOCOBALAMIN 500 MCG TABLET (VITAMIN B-12) PO SCH (08:33)
[2019-12-16] MEDS: DULoxetine HCL 20 MG CAP PO SCH (08:33)
[2019-12-16] MEDS: FERROUS SULFATE 325 MG TAB PO SCH (08:33)
[2019-12-16] MEDS: METOPROLOL SUCC 25MG EXT REL TAB PO SCH (08:34)
[2019-12-16] MEDS: FOLIC ACID 400 MCG TAB PO SCH (08:34)
[2019-12-16] MEDS: CHOLECALCIFEROL 1,000 UNITS 25 MCG TAB PO SCH (08:34)
[2019-12-16] MEDS: ASPIRIN 81 MG ECTAB PO SCH (08:34)
[2019-12-16] MEDS: LORATADINE 10 MG TAB PO SCH (08:34)
[2019-12-16] MEDS: PANTOprazole 40 MG TAB PO SCH (08:34)
[2019-12-16] MEDS: NYSTATIN POWDER 15GM BTL EXT SCH (08:35)
--- NOTE | 2019-12-16 10:26 | Nephrology Progress Note ---
Date of Service December 16, 2019 Assessment & Plan (1) Renal failure: Acute renal failure-obstructive uropathy on baseline CKD 3B for creatinine 1.4 in 2020; peak creatinine 3.8 on 12/12 USS shows bilateral small kidneys. has a background of CKD Urine studies unrevealing and no proteinuria chemistries and volume status mostly acceptable though K high normal, chloride mildly elevated; some HTN asx though BP has overall been somewhat labile Renal functions improved with fluid resuscitation and now hypertensive w/ mild hyperchloremia >> will stop NS -ok from renal standpoint to d/c palomares but this is per urology -continue to hold ACEI ->>>avoid nsaids in house and at d/c >>>>>>for BP management, control pain and if no improvement with this and stopping IVF, consider low dose (10 mg) bid hydralazine w/ hold parameters ->>>>>if for discharge, she can be seen by Dr Linder or SOFY Cherry within 2 wks of discharge at [facility]; NOT feasible to f/u w/ me d/t clinic schedule availability -bmp within a week of discharge please (2) Acute urinary retention: Reviewed by urology, recommended Palomares w/ voiding trial soon ,no surgical intervention planned by ortho. Admission and Anticipated Discharge Date Admission Date: December 13, 2019 Subjective seen on rounds at 0750; c/o back and rib pain. no sob; pain led to poor sleep. eating well; remains with palomares which she wishes to d/c Review of Systems Review of Systems: All systems reviewed & are unremarkable except as noted in HPI & below Physical Exam Constitutional: well developed, well nourished and + morbidly obese; no acute distress on RA Eyes: EOM intact bilaterally ENMT: Ears: no external ear abnormality Nose: no external nose abnormality Mouth: + muffled voice and + dry oral mucous membranes Neck: no nuchal rigidity Respiratory: normal respiratory effort Auscultation: lungs clear to auscultation bilaterally and + diminished lung sounds Cardiovascular: Rate/Rhythm: regular rate and regular rhythm Heart Sounds: + murmur Extremities: + edema (trace BLE) Gastrointestinal (Abdomen): Inspection/Auscultation: normal bowel sounds Percussion/Palpation: abdomen soft; abdomen nontender Musculoskeletal: Extremities: strength 5/5 throughout Skin: no rashes, warm and dry Neurologic: jha, fluent speech, no tremor Psychiatric: A+Ox3, euthymic affect Genitourinary: palomares w/ ample yellow [place] urine Results & Data ([facility]) Vital Signs (Past 12 Hours) Vital Signs Temp Pulse Pulse Resp BP Pulse Ox 12/16/19 08:00 94 H 12/16/19 07:47 36.6 C 84 17 177/90 H 99 12/16/19 04:00 36.8 C 79 17 131/56 L 91 12/15/19 23:29 36.6 C 74 18 120/63 99 12/15/19 22:45 80 Laboratory Results 12/16/19 06:42 12/16/19 06:42 (1) Renal failure Acute renal failure type: unspecified Renal failure chronicity: acute Qualified Code(s): N17.9 - Acute kidney failure, unspecified
--- NOTE | 2019-12-16 12:17 | Urology Progress Note ---
Date of Service December 16, 2019 Assessment & Plan (1) Acute urinary retention: 64yo F admitted with acute urinary retention and renal failure -Patient doing well, remains afebrile -Creatinine is improving -Lynn catheter removed this AM for voiding trial -Continue supportive care -Encourage hydration -Will need outpatient follow-up with Urology for retention work-up -Will continue to monitor while inpatient Admission and Anticipated Discharge Date Admission Date: December 13, 2019 Subjective Patient examined at bedside this AM Awake, sitting up in bed on arrival Denies any fevers or chills Tolerating PO diet without nausea or vomiting Lynn catheter removed this AM for TOV Denies any pain or discomfort at this time No additional concerns today Review of Systems Constitutional: as per Subjective / HPI Gastrointestinal: as per Subjective / HPI Genitourinary: as per Subjective / HPI Physical Exam Constitutional: + obese; no acute distress Respiratory: normal respiratory effort and able to speak in complete sentences Gastrointestinal (Abdomen): Inspection/Auscultation: abdomen normal to inspection; abdomen not distended Skin: Warm and dry Neurologic: awake; not confused Psychiatric: Orientation: alert, oriented x 3 and cooperative Results & Data ([facility]) Vital Signs (Past 12 Hours) Vital Signs Temp Pulse Pulse Resp BP Pulse Ox 12/16/19 12:00 37.0 C 82 18 175/90 H 98 12/16/19 08:00 94 H 12/16/19 07:47 36.6 C 84 17 177/90 H 99 12/16/19 04:00 36.8 C 79 17 131/56 L 91 PG Care Time/CCT Total # of Minutes Spent Total Time Spent with Patient: Total time spent is greater than 50% in coordination of care (as documented) at patient's floor/unit and/or counseling patient: Coding Level of Care Code 94640 Subseq Hosp Care Lvl 2 Diagnoses Acute urinary retention R33.8
--- NOTE | 2019-12-16 14:18 | Hospitalist Progress Note ---
Date of Service December 16, 2019 Assessment & Plan (1) Acute kidney injury superimposed on chronic kidney disease: (2) Stage 3 chronic kidney disease: (3) Oliguria: EDYTA on CKD III -CT ABD:Suboptimal evaluation due to the motion artifact and lack of contrast. No definite renal stones or hydronephrosis. No definite bowel wall thickening or obstruction. Redemonstration of the subacute rib fractures and subacute and chronic compression fractures within the thoracic and lumbar spine. No new fractures identified. The gallbladder is mildly distended. This has progressed in the interval. No gallbladder wall thickening. -Prerenal/Obstructive/ATN -Mild Rhabdomyolysis -Renal USD:No hydronephrosis. Moderate bilateral renal atrophy. -Lisinopril held--Plan to discontinue upon discharge as well -Serology/Immunology pending -Appreciate Nephrology Input -Cr:3.83>3.17>1.68>1.29 -No indication for dialysis -CK levels trended down -Held statin during hospital stay -Received IV fluids -Needs follow up with Nephrology upon discharge Acute urinary retention CT ABD as above Lynn discontinued Monitor renal function Successful Voiding trial Appreciate urology input Constipation KUB:No evidence for a bowel obstruction. Moderate amount of stool within the colon and rectum. Likely due to Narcotics Minimize Narcotic use Had BM Continue bowel regimen Encourage to ambulate Lumbar spinal stenosis Neurogenic claudication -MRI Lumbar Spine: L4 burst fracture has progressively worsened from 2018 however appears unchanged from 08/17/2018. Grade 1 anterolisthesis L3 on L4 and L4 on L5 has also progressed from comparison and is likely secondary to long- standing facet arthrosis. Severe central canal stenosis at L4-L5 with moderate to severe central canal stenosis at L3-L4. Multilevel foraminal narrowing, most pronounced at L4-L5 and L5-S1 as above. Bone marrow edema involving the lower lumbar spine and S1 is likely on a degenerative basis. -Poor surgical candidate -Appreciate orthopedics input -Follows with pain management as outpatient -Pain control, PT OT (4) Multiple rib fractures: H/O fall ~2 weeks ago Multiple rib fractures Incentive spirometer (5) Anxiety and depression: On bupropion, duloxetine Patient states the medications not helping at baseline Advised to follow up with psychiatry as outpatient (6) Bullous pemphigoid: On doxycycline suppressive therapy (7) CAD (coronary artery disease): Continue aspirin, metoprolol Resume statin as able (8) Hypertension: BP stable after IV fluids Continue metoprolol Lisinopril on hold due to EDYTA (9) DVT prophylaxis: SQ heparin Code Status Full Code Admission and Anticipated Discharge Date Admission Date: December 13, 2019 Subjective Patient is seen and examined at bedside Doing well this morning Had BM and was able to void Reports back pain but controlled Renal function near baseline Denies chest pain, dyspnea abdominal pain, dizziness, nausea Offers no other complaints Review of Systems Review of Systems: All systems reviewed & are unremarkable except as noted in HPI & below Physical Exam Physical Exam: Physical Exam: Vitals signs as noted above General Appearance:Morbidly Obese, no apparent distress Head: normocephalic, Atraumatic Eyes: normal inspection, EOMI Neck: supple, Trachea midline Respiratory/Chest: Normal breath sounds, CTA Cardiovascular: S1, S2, + murmur Back:tender Abdomen/GI:Soft, Non tender, Bowel sounds present Extremities/Musculoskelatal:normal inspection, Trace edema Neurologic/Psych:AAOX3, grossly no focal neurological deficits Skin: normal color, warm Results & Data Results & Data ([facility]) Vital Signs (Past 12 Hours) Vital Signs Temp Pulse Pulse Resp BP Pulse Ox 12/16/19 12:00 37.0 C 82 18 175/90 H 98 12/16/19 08:00 94 H 12/16/19 07:47 36.6 C 84 17 177/90 H 99 12/16/19 04:00 36.8 C 79 17 131/56 L 91 Laboratory Results Short CBC 12/16/19 Range/Units 06:42 Hgb 10.1 L (12.0-16.0) g/dL Hct 32.6 L (37-47) % BMP 12/16/19 06:42 Sodium 141 Potassium 5.0 Chloride 115 H Carbon Dioxide 23 BUN 17 Creatinine 1.29 H D Glucose 92 Calcium 8.2 L Cardiac Enzymes 12/16/19 Range/Units 06:42 Total Creatine Kinase 325 H (26-192) U/L
--- NOTE | 2019-12-16 14:52 | Discharge Summary ---
Date of Service December 16, 2019 Admission HPI Per Admitting Provider 64-year-old female with PMH HTN, CKD stage III, nonobstructive CAD, bullous pemphigoid, moderate aortic stenosis, and other problems listed below who presents to the ED for evaluation of urinary difficulties and constipation. Recent history includes, patient suffering a mechanical fall on 11/28. She was seen in the ED and rib and knee x-rays were negative for acute findings. Patient was seen again in the ED on 11/[address] chest showed fractures of the right anterior 4th through 6th ribs and left anterior 3rd through 6th ribs. Patient was prescribed extended release morphine twice a day for the pain and she reports her rib pain has been progressively getting better. She reports that she is currently taking the morphine once daily. Patient notes that over the past 4 days, she has had a very dry mouth. She reports that she has had no urine output in the past 4 days as well as not having a bowel movement. Patient denies abdominal pain, vomiting, nausea. Fevers or chills. She denies chest pain or shortness of breath. No lightheadedness, dizziness, diaphoresis, syncopal events. In the ED, creatinine is found to be 3.8 (up from baseline of ~ 1.4). Lynn catheter was placed and patient had about 150 cc of urine output. CT ABD/pelvis is negative for acute findings. Lumbar spine MRI is negative for findings of cauda equina. Patient was borderline hypotensive with systolic BPs running in the 90s, this improved after IVF. Admission Exam Per Admitting Provider Physical Exam Constitutional: WD/WN, vitals as above + obese Eyes: PERRL, conjunctivae normal, anicteric sclerae ENMT: external ear and nose normal, oropharynx normal Respiratory: normal respiratory effort, lungs clear to auscultation Cardiovascular: Rate/Rhythm: regular rate and regular rhythm Heart Sounds: + murmur (Systolic, grade 3/6) Vessels: normal peripheral pulses Extremities: no edema Gastrointestinal (Abdomen): normal bowel sounds, soft, nontender, no hepatosplenomegaly Musculoskeletal: no cyanosis or clubbing, extremities motor strength 5/5 Skin: no rashes, warm and dry Neurologic: PERRL, EOMI, accommodation nl, no face palsy, no dysarthria Psychiatric: A+Ox3, euthymic affect Insight: + limited insight Genitourinary: Lynn catheter in place draining a small amount of dark yellow urine Principal Diagnosis Acute kidney injury Acute urinary retention Constipation Lumbar spinal stenosis Discharge Data Allergies Allergy/AdvReac Type Severity Reaction Status Date / Time egg AdvReac Intermediate GI upset Verified 12/13/19 11:30 ibuprofen AdvReac Mild stomach Verified 12/13/19 11:30 irritation Consultations 12/13/19 13:57 ED Decision to Admit Stat 12/13/19 15:24 Consult Nephrology Routine 12/13/19 15:51 Consult Orthopedic Surgery Routine 12/14/19 10:48 Consult Urology Routine Procedures Performed CT ABD:Suboptimal evaluation due to the motion artifact and lack of contrast. No definite renal stones or hydronephrosis. No definite bowel wall thickening or obstruction. Redemonstration of the subacute rib fractures and subacute and chronic compression fractures within the thoracic and lumbar spine. No new fractures identified. The gallbladder is mildly distended. This has progressed in the interval. No gallbladder wall thickening. KUB:No evidence for a bowel obstruction. Moderate amount of stool within the colon and rectum. MRI Lumbar Spine: L4 burst fracture has progressively worsened from 2018 however appears unchanged from 08/17/2018. Grade 1 anterolisthesis L3 on L4 and L4 on L5 has also progressed from comparison and is likely secondary to long-standing facet arthrosis. Severe central canal stenosis at L4-L5 with moderate to severe central canal stenosis at L3-L4. Multilevel foraminal narrowing, most pronounced at L4-L5 and L5-S1 as above. Bone marrow edema involving the lower lumbar spine and S1 is likely on a degenerative basis. Ordered Studies 12/13/19 11:02 MR lumbar spine wo con Stat 12/13/19 12:27 CT abd pelvis wo con Stat 12/14/19 16:31 US renal/blad retro comp Routine Hospital Course (1) Acute kidney injury superimposed on chronic kidney disease: (2) Stage 3 chronic kidney disease: (3) Oliguria: EDYTA on CKD III -CT ABD:Suboptimal evaluation due to the motion artifact and lack of contrast. No definite renal stones or hydronephrosis. No definite bowel wall thickening or obstruction. Redemonstration of the subacute rib fractures and subacute and chronic compression fractures within the thoracic and lumbar spine. No new fractures identified. The gallbladder is mildly distended. This has progressed in the interval. No gallbladder wall thickening. -Prerenal/Obstructive/ATN -Mild Rhabdomyolysis -Renal USD:No hydronephrosis. Moderate bilateral renal atrophy. -Lisinopril held--Plan to discontinue upon discharge as well -Serology/Immunology pending -Appreciate Nephrology Input -Cr:3.83>3.17>1.68>1.29 -No indication for dialysis -CK levels trended down -Held statin during hospital stay -Received IV fluids -Needs follow up with Nephrology upon discharge Acute urinary retention CT ABD as above Lynn discontinued Monitor renal function Successful Voiding trial Appreciate urology input Constipation KUB:No evidence for a bowel obstruction. Moderate amount of stool within the colon and rectum. Likely due to Narcotics Minimize Narcotic use Had BM Continue bowel regimen Encourage to ambulate Lumbar spinal stenosis Neurogenic claudication -MRI Lumbar Spine: L4 burst fracture has progressively worsened from 2018 however appears unchanged from 08/17/2018. Grade 1 anterolisthesis L3 on L4 and L4 on L5 has also progressed from comparison and is likely secondary to long- standing facet arthrosis. Severe central canal stenosis at L4-L5 with moderate to severe central canal stenosis at L3-L4. Multilevel foraminal narrowing, most pronounced at L4-L5 and L5-S1 as above. Bone marrow edema involving the lower lumbar spine and S1 is likely on a degenerative basis. -Poor surgical candidate -Appreciate orthopedics input -Follows with pain management as outpatient -Pain control, PT OT (4) Multiple rib fractures: H/O fall ~2 weeks ago Multiple rib fractures Incentive spirometer (5) Anxiety and depression: On bupropion, duloxetine Patient states the medications not helping at baseline Advised to follow up with psychiatry as outpatient (6) Bullous pemphigoid: On doxycycline suppressive therapy (7) CAD (coronary artery disease): Continue aspirin, metoprolol Resume statin as able (8) Hypertension: BP stable after IV fluids Continue metoprolol Lisinopril on hold due to EDYTA (9) DVT prophylaxis: SQ heparin Code Status Full Code Total Time Total Time Spent Total Time Spent (In Minutes): 44 minutes Discharge Plan Discharge Items Patient Disposition: Home - Home Health Services Reason For Visit: EDYTA Discharge Diagnosis: Acute kidney injury Acute urinary retention Constipation Lumbar spinal stenosis Activity: Per Instructions section Non-emergency contact: Primary Care Provider and Forestry Professor Call non-emergency contact if: you have any medication questions, your symptoms worsen, your pain is not controlled, your pain is worsening, your pain is unusual for you, your pain is concerning for you and you have a fever Follow-up/Referrals: Nikunj Plascencia MD [Primary Care Provider] - Diet: Heart Healthy Ambulatory Orders: Basic Metabolic Panel (Routine) Timeframe: 1 Week Location: Determined by Patient Ordered By: Jorden Greenfield Attending Provider Instructions: Follow up with your Primary Care Physician on Dec 20, 2019 at 11:00AM Follow up with your Forestry Professor on 2019 at 11:00AM Follow up with Orthopedics as needed Follow up with your Urologist Dr.Stephen Ospina if you have recurrence of difficulty Urinating. Get Blood Test (Basic Metabolic Panel) in 1 week and follow up with your Forestry Professor with results Your Immunology/Serology Work up is pending at the time of discharge. Please follow up with your physician for results Stop taking oxycodone if you develop recurrence of Constipation, Urinary retention, drowsiness. Discuss with your physician for further instructions. Stop taking Morphine and Lisinopril as recommended. Seek immediate medical attention if your symptoms reoccur or worsen Pending Studies at Discharge: Yes Studies:: Immunology/Serology Work up Stand-Alone Forms: My [facility] [place] Spinal Integration, Smoking Cessation Medications and DC Order Prescriptions: New polyethylene glycol 3350 [Miralax] 17 gram Powder In Packet 17 g PO DAILY PRN (Reason: constipation) Qty: 30 RF: 0 Continued diclofenac sodium [Voltaren] 1 % gel 4 g topical QID PRN (Reason: Pain) RF: 0 atorvastatin 80 mg tablet 80 mg PO QPM RF: 0 aspirin [Aspirin Low Dose] 81 mg Tablet,Delayed Release (Dr/Ec) 81 mg PO QAM RF: 0 ferrous sulfate 325 mg (65 mg iron) Tablet 325 mg PO QAM RF: 0 duloxetine [Cymbalta] 30 mg Capsule,Delayed Release(Dr/Ec) 30 mg PO BID RF: 0 cyanocobalamin (vitamin B-12) [Vitamin B-12] 1,000 mcg Tablet 1,000 mcg PO QAM RF: 0 gabapentin [Neurontin] 300 mg Capsule 300 mg PO BID RF: 0 metoprolol succinate 25 mg Tablet Extended Release 24 Hr 25 mg PO QAM RF: 0 clotrimazole 1 % Cream 1 applic TOPICAL BID PRN (Reason: Skin Irritation) RF: 0 loratadine 10 mg Tablet 10 mg PO QAM RF: 0 folic acid 800 mcg Tablet 0.8 mg PO QAM RF: 0 bupropion HCl [Wellbutrin SR] 200 mg Tablet Sustained-Release 12 Hr 200 mg PO BIDM RF: 0 cholecalciferol (vitamin D3) [Vitamin D3] 1,000 unit Tablet 2,000 unit PO QAM RF: 0 omeprazole 20 mg Tablet,Delayed Release (Dr/Ec) 40 mg PO QAM RF: 0 [place] 3-6-9 1,200 mg Capsule 1 cap PO QAM RF: 0 Fiber Gummies 2 gram Tablet,Chewable 2 g PO BID RF: 0 docusate sodium [Colace] 100 mg capsule 100 mg PO BID PRN (Reason: Constipation) RF: 0 alprazolam 1 mg tablet 1 mg PO BID PRN (Reason: Anxiety) RF: 0 tizanidine 4 mg tablet 4 mg PO Q6H PRN (Reason: Muscle Spasm) RF: 0 ascorbic acid (vitamin C) 250 mg Tablet 250 mg PO DAILY RF: 0 doxycycline monohydrate 100 mg capsule 100 mg PO BID RF: 0 nystatin 100,000 unit/gram Powder 1 applic TOPICAL BID RF: 0 inulin 2 gram Tablet,Chewable 2 g PO BID RF: 0 sennosides [Senokot] 8.6 mg tablet 8.6 mg PO HS PRN (Reason: Constipation) RF: 0 oxycodone 5 mg tablet 5 mg PO Q8H PRN (Reason: pain) RF: 0 nitroglycerin 0.4 mg Tablet, Sublingual 0.4 mg sublingual UD PRN (Reason: Chest Pain) RF: 0 Discontinued lisinopril 10 mg Tablet 10 mg PO QPM RF: 0 morphine 15 mg tablet extended release 15 mg PO Q12H RF: 0 Discharge Orders: Discharge Order (Routine); Ordered 12/16/19 Ordered By: Jorden Enriquez Admission Data Admit Date/Time: 12/13/19 14:14 Attending Provider: Jorden Enriquez Admit Provider: Boston Lutz Primary Care Provider: Nikunj Plascencia Other Providers: Boston Lutz ; Geovanni Linder ; Kee Jules Benny Ospina. Other Interventions: Discharge Summary Assessment (RN) Last Done: 12/16/19 15:24
[2019-12-25 00:21] LABS: ANCA Screen Negative (Negative); Anti Nuclear Antibody Screen POSITIVE (NEGATIVE); Anti-DNASE B Ab 158 U/mL (<301); Complement C3 144 mg/dL (83-193); Complement Total(CH50) >60 U/mL (31-60); Myeloperoxidase Ab <1.0 AI (<1.0); Proteinase-3 AB <1.0 AI (<1.0)
--- NOTE | 2019-12-29 13:29 | Coding Query ---
PRESENT ON ADMISSION QUERY To promote full compliance with coding requirements relating to pateint care, physician participation is requested in all cases of rn med surg uncertainty. Please assist us with the question(s) below: Please place an X within the parenthesis (x). The following diagnosis listed in this patient's medical record require physician assistance to determine if they were present on admission (POA) or not. Please advise for each diagnosis whether it was present on admission, not present on admission, or if it was clinically undetermined. 1. RHABDOMYOLYSIS (documentation begins on Progress Note 12/15/19) (x ) Present On Admission ( ) Not Present On Admission ( ) Clinically Undetermined Please specify, in you clinical opinion, regarding the Rhabdomyolysis. (x ) likely Traumatic Rhabdomyolysis ( ) likely Not traumatic Rhabdomyolysis ( ) Other: Please Specify Thank you Clover Mcghee *Definition of the present on admission (POA)-Present on admission is defined as present at the time the order for inpatient admission occurs. Conditions that develop during an outpatient encounter prior to a written order for inpatient admission (including emergency department, observation, or outpatient surgery) are considered present on admission. MTDD
== END 2019-12-16 15:40 | disposition home health service (06) | DRG 683 ==
LOC: ED 10:32 → SUATTDRO 14:14 → 2S 14:14

== ENCOUNTER 2020-03-19 06:40 | Inpatient (IN) ==
[2020-03-19] MEDS ORDERED: SODIUM CHLORIDE 0.9% 500 ML IV SCH (07:00)
[2020-03-19] MEDS ORDERED: LOPERAMIDE HCL 2 MG CAP PO STA (07:06)
--- NOTE | 2020-03-19 07:17 | Emergency Department Note ---
History of Present Illness General Chief complaint: Illness Stated complaint: ILLNESS Source: patient, EMS, RN notes reviewed and old records reviewed Mode of arrival: EMS Limitations: no limitations History of Present Illness Provider complaint: diarrhea Onset (ago): week(s) 1 Location: abdomen Radiation: back Severity: severe Pain Consistency: + colicky Maximum Pain Intensity: 9 Current Pain Intensity: 9 Quality: + aching Relieved By: + none Exacerbated By: + immobilization Associated symptoms: + fever/chills, + loss of appetite, + shortness of breath and + weakness Treatments prior to arrival: none This is a 64-year-old female who presents emergency department over concerns that the patient is not improving from her coronavirus diagnosis. The patient notes that both her mother and her sister have been admitted to the hospital with coronavirus infections. She reports she is having diarrhea and she is concerned about her kidney function because she has previously gone into acute renal failure. The patient reports that she cannot walk. She has not taken anything for the virus today. She is also concerned she has a urinary tract infection. She is also complaining of a rash to her buttock that has been there for a year. Home Medications Medication Instructions Recorded Confirmed Type [place] 3-6-9 1 cap PO QAM 06/16/18 03/19/20 History aspirin [Aspirin Low Dose] 81 mg PO QAM 06/16/18 03/19/20 History atorvastatin 80 mg PO QPM 06/16/18 03/19/20 History bupropion HCl [Wellbutrin SR] 200 mg PO BIDM 06/16/18 03/19/20 History cholecalciferol (vitamin D3) 2,000 unit PO QAM 06/16/18 03/19/20 History [Vitamin D3] cyanocobalamin (vitamin B-12) 1,000 mcg PO QAM 06/16/18 03/19/20 History [Vitamin B-12] ferrous sulfate 325 mg PO QAM 06/16/18 03/19/20 History folic acid 0.8 mg PO QAM 06/16/18 03/19/20 History gabapentin [Neurontin] 600 mg PO HS 06/16/18 03/19/20 History loratadine 10 mg PO QAM 06/16/18 03/19/20 History Fiber Gummies 2 g PO BID 11/26/18 03/19/20 History diclofenac sodium [Voltaren] 4 g TOPICAL QID PRN 12/01/19 03/19/20 History alprazolam 1 mg PO BID PRN 12/13/19 03/19/20 History ascorbic acid (vitamin C) 250 mg PO DAILY 12/13/19 03/19/20 History docusate sodium [Colace] 100 mg PO BID 12/13/19 03/19/20 History inulin 2 g PO BID 12/13/19 03/19/20 History oxycodone 5 mg PO Q6 PRN 12/13/19 03/19/20 History sennosides [Senokot] 8.6 mg PO HS PRN 12/13/19 03/19/20 History tizanidine 4 mg PO Q6H PRN 12/13/19 03/19/20 History nitroglycerin 0.4 mg SUBLINGUAL UD PRN 12/14/19 03/19/20 History polyethylene glycol 3350 [Miralax] 17 g PO DAILY PRN #30 ea 12/16/19 03/19/20 Rx tamsulosin 0.4 mg capsule 0.4 mg PO DAILY #30 cap 01/23/20 03/19/20 Rx albuterol sulfate 2 puff INHALATION QID PRN 03/16/20 03/19/20 History duloxetine [Cymbalta] 60 mg PO BID 03/16/20 03/19/20 History lisinopril 10 mg PO DAILY 03/16/20 03/19/20 History metoprolol succinate 50 mg PO DAILY 03/16/20 03/19/20 History omeprazole 40 mg PO DAILY 03/16/20 03/19/20 History ondansetron 4 mg PO Q6H PRN #15 tab 03/16/20 03/19/20 Rx nystatin 1 applic TOPICAL BID #15 g 03/19/20 Rx Allergies Allergy/AdvReac Type Severity Reaction Status Date / Time egg AdvReac Intermediate GI upset Verified 03/19/20 06:46 ibuprofen AdvReac Mild stomach Verified 03/19/20 06:46 irritation Past Med/Surg History Medical History Anemia chronic; baseline hgb 9-10 range per chart review Anxiety and depression Aortic stenosis Mild (per cardiology review) aortic stenosis with possible bicuspid aortic valve (MG 19mmhg, NIKKIE 3.0) per 05/2018 ECHO Bullous pemphigoid CAD (coronary artery disease) non-obstructive Carotid artery stenosis "mild" Chronic back pain GERD (gastroesophageal reflux disease) controlled High cholesterol History of blood transfusion 2 Units PRBC's post-operatively Hx of falling last fall 09/2018- per patient, related to LBP/balance issues- ? r/t ambulatory dysfunction- improved with cane/walker use Hypertension Morbid obesity Osteoporosis Renal failure Stage 3 chronic kidney disease Surgical History History of back surgery History of cardiac cath 2017= NO STENTS History of kyphoplasty History of right knee joint replacement Hx of laparoscopy Family History Father Stroke Mother Stroke Social History Smoking Status: Former smoker Tobacco Type: Cigarettes Second Hand Exposure: No; Hx Alcohol Use: No Hx Substance Use: No Preferred Language: Belarusian Communication Ability: Effective Visual Impairment: No Limitations Hearing Ability: Normal Neon Sign Worker Required: No Beliefs That Will Affect Care: None marital status: Single Current Living Situation: Parent Current Living Situation Comment: lives with mother and sister current occupational status: unemployed and disabled Feels Safe at Home: Yes Assistive Devices: Cane and Glasses Review of Systems A total of 10 systems reviewed and were otherwise negative Physical Exam Vital Signs Vital Signs - 24 hr 03/19/20 06:45 03/19/20 06:48 03/19/20 06:49 Temperature 37.6 C H Temperature Source Oral Pulse Rate 93 H 97 H 97 H Pulse Rate [Apical] Pulse Rate from SpO2 Sensor 93 H 96 H Respiratory Rate 18 22 24 Respiratory Effort / Characteristics Non-Labored Spontaneous Respiratory Depth Normal Respiratory Pattern Regular Blood Pressure 134/83 134/83 Blood Pressure [Left Arm] Blood Pressure Mean 100 100 Blood Pressure Mean [Left Arm] Blood Pressure Position Semi-fowlers Pulse Oximetry 97 96 99 Oxygen Delivery Method Room Air Room Air Sepsis Recent Fever Within 48 Hours No Sepsis New/Unexplained Change in Mental Status No Sepsis Action Taken by Nursing No Action Required 03/19/20 07:00 03/19/20 07:01 03/19/20 07:15 Temperature Temperature Source Pulse Rate 99 H 97 H 96 H Pulse Rate [Apical] Pulse Rate from SpO2 Sensor 101 H 97 H Respiratory Rate 18 15 22 Respiratory Effort / Characteristics Respiratory Depth Respiratory Pattern Blood Pressure 121/76 109/72 Blood Pressure [Left Arm] Blood Pressure Mean 91 84 Blood Pressure Mean [Left Arm] Blood Pressure Position Pulse Oximetry 97 95 Oxygen Delivery Method Sepsis Recent Fever Within 48 Hours Sepsis New/Unexplained Change in Mental Status Sepsis Action Taken by Nursing 03/19/20 07:30 03/19/20 08:12 03/19/20 08:13 Temperature Temperature Source Pulse Rate 99 H 98 H 98 H Pulse Rate [Apical] Pulse Rate from SpO2 Sensor 99 H Respiratory Rate 22 18 21 Respiratory Effort / Characteristics Respiratory Depth Respiratory Pattern Blood Pressure 150/86 H Blood Pressure [Left Arm] Blood Pressure Mean 107 Blood Pressure Mean [Left Arm] Blood Pressure Position Pulse Oximetry 95 Oxygen Delivery Method Sepsis Recent Fever Within 48 Hours Sepsis New/Unexplained Change in Mental Status Sepsis Action Taken by Nursing 03/19/20 08:30 03/19/20 08:31 03/19/20 09:00 Temperature Temperature Source Pulse Rate 101 H 102 H 102 H Pulse Rate [Apical] Pulse Rate from SpO2 Sensor 95 H 102 H 102 H Respiratory Rate 21 22 21 Respiratory Effort / Characteristics Respiratory Depth Respiratory Pattern Blood Pressure 137/83 137/75 Blood Pressure [Left Arm] Blood Pressure Mean 101 95 Blood Pressure Mean [Left Arm] Blood Pressure Position Pulse Oximetry 93 94 94 Oxygen Delivery Method Sepsis Recent Fever Within 48 Hours Sepsis New/Unexplained Change in Mental Status Sepsis Action Taken by Nursing 03/19/20 09:01 03/19/20 09:30 03/19/20 10:00 Temperature Temperature Source Pulse Rate 102 H 98 H 95 H Pulse Rate [Apical] Pulse Rate from SpO2 Sensor 102 H 98 H 95 H Respiratory Rate 17 21 17 Respiratory Effort / Characteristics Respiratory Depth Respiratory Pattern Blood Pressure 122/77 129/73 Blood Pressure [Left Arm] Blood Pressure Mean 92 91 Blood Pressure Mean [Left Arm] Blood Pressure Position Pulse Oximetry 93 90 91 Oxygen Delivery Method Sepsis Recent Fever Within 48 Hours Sepsis New/Unexplained Change in Mental Status Sepsis Action Taken by Nursing 03/19/20 10:01 03/19/20 10:30 03/19/20 10:31 Temperature Temperature Source Pulse Rate 93 H 94 H 94 H Pulse Rate [Apical] Pulse Rate from SpO2 Sensor 93 H 94 H 94 H Respiratory Rate 18 19 19 Respiratory Effort / Characteristics Respiratory Depth Respiratory Pattern Blood Pressure 105/81 Blood Pressure [Left Arm] Blood Pressure Mean 89 Blood Pressure Mean [Left Arm] Blood Pressure Position Pulse Oximetry 92 93 92 Oxygen Delivery Method Sepsis Recent Fever Within 48 Hours Sepsis New/Unexplained Change in Mental Status Sepsis Action Taken by Nursing 03/19/20 11:20 03/19/20 11:39 Temperature Temperature Source Pulse Rate 93 H Pulse Rate [Apical] 92 H Pulse Rate from SpO2 Sensor Respiratory Rate 20 18 Respiratory Effort / Characteristics Non-Labored Respiratory Depth Normal Respiratory Pattern Blood Pressure 133/77 Blood Pressure [Left Arm] 123/64 Blood Pressure Mean 95 Blood Pressure Mean [Left Arm] 83 Blood Pressure Position Pulse Oximetry 93 Oxygen Delivery Method Room Air Sepsis Recent Fever Within 48 Hours Sepsis New/Unexplained Change in Mental Status Sepsis Action Taken by Nursing VITAL SIGNS - Vital signs and nursing notes were reviewed. GENERAL - 64-year-old female appearing stated age who is in no acute distress. Communicates well with provider and answers questions appropriately. SKIN - pink wound approx length of the buttock, 10 cm bilateral. HEAD - NC/AT. EYES - PERRL with EOMI bilaterally. Sclera anicteric. Palpebral conjunctiva pink and moist with no injection noted. EARS - No deformities of external structures noted on gross examination bilaterally. NOSE - Midline and without cyanosis. No epistaxis or purulent drainage noted. Septum midline without deviation or septal hematoma noted. MOUTH/OROPHARYNX - Without perioral cyanosis. Buccal mucosa pink and moist and without leukoplakia. Tongue midline with equal elevation of palate bilaterally. No tonsillar hypertrophy, erythema, or exudates noted. dentition noted. NECK - Neck with FROM. Supple to palpation. lymphadenopathy noted. No nuchal rigidity. LUNGS - Chest wall symmetric without accessory muscle use, intercostals retractions, or central cyanosis. Normal vesicular breath sounds CTA B/L. No wheezes, rales, or rhonchi appreciated. CARDIAC - RRR with S1/S2. No murmur, rubs, or gallops appreciated. ABDOMEN - Abdominal contour without pulsations or visible masses. BS normoactive all four quadrants. No tenderness, palpable masses, hepatosplenomegaly, or ascites noted. EXTREMITIES - No clubbing or peripheral cyanosis. No pretibial edema present. +3/5 radial, posterior tibial, and dorsalis pedis pulses palpated throughout. +5/5 strength noted in UE/LE bilaterally. NEUROLOGIC - Cranial nerves II through XII grossly intact. Sensory intact to light touch throughout. Patellar reflexes +2/4. Pt ambulates to bathroom with cane without assistance PSYCH - A&Ox3 and cooperates fully with examiner. Pt is very pleasant and interacts well with examiner. Course Administered Medications Discontinued Medications Ciprofloxacin (Ciprofloxacin 500 Mg Tab) 500 mg PO NOW STA Stop: 03/19/20 09:34 Last Admin: 03/19/20 10:56 Dose: 500 mg Documented by: [id number] Sodium Chloride (Nss) 500 mls @ 999 mls/hr IV .Q31M PEGGY Stop: 03/19/20 07:30 Last Infusion: 03/19/20 10:41 Dose: 0 mls/hr Documented by: [id number] Admin: 03/19/20 08:14 Dose: 999 mls/hr Documented by: [id number] Acetaminophen (Ofirmev) 1,000 mg in 100 mls @ 400 mls/hr IV NOW STA Stop: 03/19/20 07:36 Last Infusion: 03/19/20 08:30 Dose: 0 mls/hr Documented by: [id number] Admin: 03/19/20 08:14 Dose: 400 mls/hr Documented by: [id number] Loperamide HCl (Loperamide Hcl 2 Mg Cap) 2 mg PO NOW STA Stop: 03/19/20 07:07 Last Admin: 03/19/20 07:23 Dose: Not Given Documented by: [id number] Oxycodone HCl (Oxycodone Hcl Ir 5 Mg Tab (Immediate Release)) 5 mg PO NOW STA Stop: 03/19/20 07:30 Last Admin: 03/19/20 08:14 Dose: 5 mg Documented by: [id number] Medical Decision Making Differential Diagnosis Appendicitis, ovarian cyst, ovarian torsion, ectopic , TOA, PID, infections, diverticulitis, UTI, obstruction, mesenteric ischemia, aortic pathology, inflammatory bowel disease, renal colic, PUD, pancreatitis, biliary pathology, hernia, volvulus, constipation, as well as other pathologies. Medical Records Attestation: I reviewed the patient's medical records. Home Medications Current Medication List: was personally reviewed by me Laboratory Data Attestation: I reviewed the patient's lab results. Result diagrams: 03/19/20 07:20 03/19/20 07:20 Lab Results 03/19/20 03/19/20 03/19/20 Range/Units 07:20 07:20 08:10 WBC 4.20 L (4.8-10.8) K/uL RBC 4.14 L (4.2-5.4) M/uL Hgb 12.4 (12.0-16.0) g/dL Hct 39.1 (37-47) % MCV 94.4 (80-100) fL MCH 30.0 (25-34) pg MCHC 31.7 L (32-36) g/dL RDW Std Deviation 50.4 H (36.4-46.3) fL RDW Coeff of Brandy 14.6 H (11.5-14.5) % Plt Count 125 L (130-400) K/uL MPV 10.6 H (7.4-10.4) fL Immature Gran % (Auto) 0.2 % Neut % (Auto) 51.1 % Lymph % (Auto) 31.4 % [place] % (Auto) 16.9 % Eos % (Auto) 0.2 % Baso % (Auto) 0.2 % Neut # (Auto) 2.14 (1.4-6.5) K/uL Lymph # (Auto) 1.32 (1.2-3.4) K/uL [place] # (Auto) 0.71 H (0.11-0.59) K/uL Eos # (Auto) 0.01 (0-0.5) K/uL Baso # (Auto) 0.01 (0-0.2) K/uL Immature Gran # (Auto) 0.01 (0.00-0.02) K/uL Sodium 132 L (136-145) mmol/L Potassium 4.4 (3.5-5.1) mmol/L Chloride 100 (98-107) mmol/L Carbon Dioxide 26 (21-32) mmol/L Anion Gap 6.0 (3-11) BUN 20 H (7-18) mg/dl Creatinine 1.45 H (0.6-1.2) mg/dl Est Cr Clr Drug Dosing 55.7 ml/min Est GFR ( Amer) 44.6 Est GFR (Non-Af Amer) 38.5 BUN/Creatinine Ratio 13.6 (10-20) Glucose 95 (70-99) mg/dl Calcium 9.2 (8.5-10.1) mg/dl Total Bilirubin 0.4 (0.2-1) mg/dl AST 45 H (15-37) U/L ALT 30 (12-78) U/L Alkaline Phosphatase 70 (45-117) U/L Troponin I 0.019 (0-0.045) ng/ml Total Protein 7.2 (6.4-8.2) gm/dl Albumin 3.0 L (3.4-5.0) gm/dl Globulin 4.2 H (2.5-4.0) gm/dl Albumin/Globulin Ratio 0.7 L (0.9-2) Lipase 331 (73-393) U/L Urine Color Dark Yellow Urine Appearance Cloudy A (Clear) Urine pH 6.0 (4.5-7.5) Ur Specific [place] 1.024 (1.000-1.030) Urine Protein 2+ H (Negative) Urine Glucose (UA) Negative (Negative) Urine Ketones Trace H (Negative) Urine Blood Negative (Negative) Urine Nitrite Negative (Negative) Urine Bilirubin Negative (Negative) Urine Urobilinogen Negative (Negative) Ur Leukocyte Esterase Trace H (Negative) Urine WBC (Auto) 10-30 H (0-5) /hpf Urine RBC (Auto) 5-10 H (0-4) /hpf U Hyaline Cast (Auto) 1-5 (0-5) /lpf U Epithel Cells (Auto) >30 H (0-5) /lpf Urine Bacteria (Auto) 2+ H (Negative) Ur Renal Epithelial Cell Not Reportable Urine Yeast Present A (None Prsent) Urine Opiates Screen (Neg) Ur Methadone, Qual (Neg) Urine Barbiturates (Neg) Ur Phencyclidine (PCP) (Neg) U Amphetamin/Meth Scrn (Neg) MDMA (Ecstasy) Screen (Neg) U Benzodiazepines Scrn (Neg) Ur Cocaine Metabolite (Neg) U Marijuana (THC) Screen (Neg) Ethyl Alcohol mg/dL (0-3) mg/dl 03/19/20 03/19/20 Range/Units 08:10 09:40 WBC (4.8-10.8) K/uL RBC (4.2-5.4) M/uL Hgb (12.0-16.0) g/dL Hct (37-47) % MCV (80-100) fL MCH (25-34) pg MCHC (32-36) g/dL RDW Std Deviation (36.4-46.3) fL RDW Coeff of Brandy (11.5-14.5) % Plt Count (130-400) K/uL MPV (7.4-10.4) fL Immature Gran % (Auto) % Neut % (Auto) % Lymph % (Auto) % [place] % (Auto) % Eos % (Auto) % Baso % (Auto) % Neut # (Auto) (1.4-6.5) K/uL Lymph # (Auto) (1.2-3.4) K/uL [place] # (Auto) (0.11-0.59) K/uL Eos # (Auto) (0-0.5) K/uL Baso # (Auto) (0-0.2) K/uL Immature Gran # (Auto) (0.00-0.02) K/uL Sodium (136-145) mmol/L Potassium (3.5-5.1) mmol/L Chloride (98-107) mmol/L Carbon Dioxide (21-32) mmol/L Anion Gap (3-11) BUN (7-18) mg/dl Creatinine (0.6-1.2) mg/dl Est Cr Clr Drug Dosing ml/min Est GFR ( Amer) Est GFR (Non-Af Amer) BUN/Creatinine Ratio (10-20) Glucose (70-99) mg/dl Calcium (8.5-10.1) mg/dl Total Bilirubin (0.2-1) mg/dl AST (15-37) U/L ALT (12-78) U/L Alkaline Phosphatase (45-117) U/L Troponin I (0-0.045) ng/ml Total Protein (6.4-8.2) gm/dl Albumin (3.4-5.0) gm/dl Globulin (2.5-4.0) gm/dl Albumin/Globulin Ratio (0.9-2) Lipase (73-393) U/L Urine Color Urine Appearance (Clear) Urine pH (4.5-7.5) Ur Specific [place] (1.000-1.030) Urine Protein (Negative) Urine Glucose (UA) (Negative) Urine Ketones (Negative) Urine Blood (Negative) Urine Nitrite (Negative) Urine Bilirubin (Negative) Urine Urobilinogen (Negative) Ur Leukocyte Esterase (Negative) Urine WBC (Auto) (0-5) /hpf Urine RBC (Auto) (0-4) /hpf U Hyaline Cast (Auto) (0-5) /lpf U Epithel Cells (Auto) (0-5) /lpf Urine Bacteria (Auto) (Negative) Ur Renal Epithelial Cell Urine Yeast (None Prsent) Urine Opiates Screen Neg (Neg) Ur Methadone, Qual Neg (Neg) Urine Barbiturates Neg (Neg) Ur Phencyclidine (PCP) Neg (Neg) U Amphetamin/Meth Scrn Neg (Neg) MDMA (Ecstasy) Screen Pos H (Neg) U Benzodiazepines Scrn Neg (Neg) Ur Cocaine Metabolite Neg (Neg) U Marijuana (THC) Screen Neg (Neg) Ethyl Alcohol mg/dL < 3.0 (0-3) mg/dl Imaging Data Radiologist's Impression: [place], [place] [phone] XRay Report Patient: BREANN PENA Admit Date: 03/19/20 MR#: [id number] Address1: [address] [place] [address] Acct ID:[id number] Address2: Date: 1955 [facility] Zip: [place] [address] Age: 64 Location: ED Sex: F Room/Bed: Att Phy: Diagnosis: ILLNESS Jaqueline Phy: Nikunj Plascencia MD Service Date: 03/19/20 Fam Phy: Interpreting Phy: Everardo Colin MD Admit Phy: Ordering Phy: Ashleigh Bui MD cc: ~ XR chest 1V portable HISTORY: atypical chest pain COMPARISON: Chest 03/15/2020. FINDINGS: No pneumothorax or no pleural effusions. The cardiac silhouette remains mildly enlarged. Mild diffuse interstitial thickening and patchy hazy bilateral airspace opacities have slightly progressed. IMPRESSION: Slight progression of the diffuse interstitial thickening and patchy hazy bilateral airspace opacities. This is concerning for a viral pneumonia. ACT 112: Negative or not required by law. Electronically signed by: Everardo Colin M.D. 03/19/2020 7:45 AM Dictated: 01/28/21 0745 Transcribed: 03/19/20744 ECG Data Attestation: I personally reviewed and interpreted this ECG as follows: Indication: + weakness Rate (beats per minute): 94 Rhythm: + normal sinus ECG Intervals/blocks: + Normal QT-c (415) ECG [place]: + Normal ECG ST segments: no ST depression and no ST elevation Comparison ECG Date: from (03/15/2019) Change: no significant change MDM Narrative Patient was seen and evaluated as above in room A9. Review was performed of nursing notes and vital signs. I did review pertinent previous visits and patient history. After obtaining a thorough history and physical examination the above work up was performed. This 64-year-old female with a diagnosis of coronavirus who is here in the emergency department for evaluation because both her sister and her mother have been admitted. The patient has a number of complaints however also notes that they are chronic in nature. She is concerned about her kidney function which is actually improved from 3 days ago. Her creatinine is now 1.45. The patient is also complaining of being unable to walk however she was ambulated personally by myself and ambulated with only the assistance of a cane to the bathroom. During this ambulation trial she was not short of breath and not hypoxic. I offered to give the patient loperamide for her diarrhea however the patient refused this stating that she has chronic bowel issues. At this point the patient meets no admission criteria, she is not hypoxic and is not on oxygen. I feel she can be safely discharged home. When the patient was told that she demanded a psychiatric consult. In independent conversation with psychiatric case management the patient threatened to kill herself by slashing her wrists if she was sent home. Based on this the decision was made to admit the patient to the Covid unit. While in the department, I personally reevaluated the patient several times and each time the patient was found to be resting comfortably. The patient was educated upon management, educated upon todays findings/results, educated upon importance of follow up from today's visit, educated upon symptoms in which to return, had questions answered prior to discharge, verbalized understanding, and was discharged home in good condition. An order was placed for continuous cardiac monitoring. The monitor shows a rate of 98 with Normal Sinus rhythm. The patient was evaluated during a period of high volume and high acuity while the hospital was at [facility] during the global COVID-19 pandemic, and that diagnosis was suspected/considered upon their initial presentation. Their evaluation, treatment and testing was consistent with current guidelines for patients who present with complaints or symptoms that may be related to COVID- 19. Impression & Plan COVID-19, Stage 3 chronic kidney disease, Diarrhea, Suicidal ideation Discharge Plan Visit Data Chief Complaint: Illness Stated Complaint: ILLNESS ED Provider: [facility] Midlevel Provider: Ashleigh Bui Discharge Problem: COVID-19, Stage 3 chronic kidney disease, Diarrhea, Suicidal ideation Patient Disposition: Home - Self-Care Condition: Good Discharge Instructions Krames/Other Patient Handouts: 2019-nCoV, COVID-19 Home Care, Caring for Someone Who Has COVID-19 Activity Restrictions/Additional Instructions: Take 1000 mg Tylenol every 6 hours You were found to have an elevated blood pressure today (>120 sytolic or >90 diastolic). Per medicare guidelines, you need to follow up with this blood pressure screening with your Primary Care Physician (PCP). For a new PCP call [phone]. You received narcotic or benzodiazepene medication while in the emergency room today. This is an addictive medication that may cause drowsiness as well as constipation. Do not drive, operate heavy machinery, or drink alcohol under the influence of this medication. Take 1000 mg Tylenol every 6 hours Take Oxycodone for breakthrough pain Radiographs and CTs will be reread by a radiologist in the morning. Culture results are usually available in approx 48 hours You have been examined and treated today on an emergency basis only. This is not a substitute for, or an effort to provide, complete comprehensive medical care. It is impossible to recognize and treat all injuries or illnesses in a single emergency department visit. It is therefore important that you follow up closely with [facility]. Call as soon as possible for an appointment. Thank you for your time and consideration. I look forward to speaking with you again soon. Please don't hesitate to call us if you have any questions. Forms Stand Alone Forms: [facility], Virtual Emergency Department, Impor tant Visit Information Prescriptions Prescriptions: New nystatin 100,000 unit/gram powder 1 applic topical BID Qty: 15 RF: 0 No Action tamsulosin 0.4 mg capsule 0.4 mg PO DAILY Qty: 30 RF: 2 diclofenac sodium [Voltaren] 1 % gel 4 g topical QID PRN (Reason: Pain) RF: 0 atorvastatin 80 mg tablet 80 mg PO QPM RF: 0 aspirin [Aspirin Low Dose] 81 mg Tablet,Delayed Release (Dr/Ec) 81 mg PO QAM RF: 0 ferrous sulfate 325 mg (65 mg iron) Tablet 325 mg PO QAM RF: 0 cyanocobalamin (vitamin B-12) [Vitamin B-12] 1,000 mcg Tablet 1,000 mcg PO QAM RF: 0 gabapentin [Neurontin] 300 mg Capsule 600 mg PO HS RF: 0 loratadine 10 mg Tablet 10 mg PO QAM RF: 0 folic acid 800 mcg Tablet 0.8 mg PO QAM RF: 0 bupropion HCl [Wellbutrin SR] 200 mg Tablet Sustained-Release 12 Hr 200 mg PO BIDM RF: 0 cholecalciferol (vitamin D3) [Vitamin D3] 1,000 unit Tablet 2,000 unit PO QAM RF: 0 [place] 3-6-9 1,200 mg Capsule 1 cap PO QAM RF: 0 Fiber Gummies 2 gram Tablet,Chewable 2 g PO BID RF: 0 docusate sodium [Colace] 100 mg capsule 100 mg PO BID RF: 0 alprazolam 1 mg tablet 1 mg PO BID PRN (Reason: Anxiety) RF: 0 tizanidine 4 mg tablet 4 mg PO Q6H PRN (Reason: Muscle Spasm) RF: 0 ascorbic acid (vitamin C) 250 mg Tablet 250 mg PO DAILY RF: 0 inulin 2 gram Tablet,Chewable 2 g PO BID RF: 0 sennosides [Senokot] 8.6 mg tablet 8.6 mg PO HS PRN (Reason: Constipation) RF: 0 oxycodone 5 mg tablet 5 mg PO Q6 PRN (Reason: pain) RF: 0 nitroglycerin 0.4 mg Tablet, Sublingual 0.4 mg sublingual UD PRN (Reason: Chest Pain) RF: 0 polyethylene glycol 3350 [Miralax] 17 gram Powder In Packet 17 g PO DAILY PRN (Reason: constipation) Qty: 30 RF: 0 duloxetine [Cymbalta] 60 mg capsule,delayed release(DR/EC) 60 mg PO BID RF: 0 albuterol sulfate 90 mcg/actuation HFA aerosol inhaler 2 puff INHALATION QID PRN (Reason: Shortness Of Breath Or Wheezing) RF: 0 lisinopril 10 mg tablet 10 mg PO DAILY RF: 0 metoprolol succinate 50 mg tablet extended release 24 hr 50 mg PO DAILY RF: 0 omeprazole 40 mg capsule,delayed release(DR/EC) 40 mg PO DAILY RF: 0 ondansetron 4 mg tablet,disintegrating 4 mg PO Q6H PRN (Reason: nausea and vomiting) Qty: 15 RF: 0 Referrals Referrals: Nikunj Plascencia MD [Primary Care Provider] - Discharge Problem: Stage 3 chronic kidney disease Qualifiers: Chronic kidney disease stage 3 subtype: unspecified whether 3a or 3b Qualified Code(s): N18.30 - Chronic kidney disease, stage 3 unspecified Diarrhea Qualifiers: Diarrhea type: unspecified type Qualified Code(s): R19.7 - Diarrhea, unspecified
[2020-03-19] MEDS ORDERED: ACETAMINOPHEN 1,000 MG/100 ML VIAL IV STA (07:22)
[2020-03-19] MEDS ORDERED: oxyCODONE HCL IR 5 MG TAB (IMMEDIATE RELEASE) PO STA (07:29)
[2020-03-19 07:42] LABS: Basophils # (auto) 0.01 K/uL (0-0.2); Basophils % (auto) 0.2 %; Eosinophils # (auto) 0.01 K/uL (0-0.5); Eosinophils % (auto) 0.2 %; Hematocrit (blood only) 39.1 % (37-47); Hemoglobin 12.4 g/dL (12.0-16.0); Immature Granulocytes # (auto) 0.01 K/uL (0.00-0.02); Immature Granulocytes % (auto) 0.2 %; Lymphocytes # (auto) 1.32 K/uL (1.2-3.4); Lymphocytes % (auto) 31.4 %; Mean Corpuscular Hgb Conc 31.7 g/dL (32-36); Mean Corpuscular Volume 94.4 fL (80-100); Mean Platelet Volume 10.6 fL (7.4-10.4); Monocytes # (auto) 0.71 K/uL (0.11-0.59); Monocytes % (auto) 16.9 %; Neutrophils # (auto) 2.14 K/uL (1.4-6.5); Neutrophils % (auto) 51.1 %; Platelet Count 125 K/uL (130-400); RDW Coefficient of Variation 14.6 % (11.5-14.5); RDW Standard Deviation 50.4 fL (36.4-46.3); Red Blood Count 4.14 M/uL (4.2-5.4)
--- NOTE | 2020-03-19 07:47 | XRay Report ---
XR chest 1V portable HISTORY: atypical chest pain COMPARISON: Chest 03/15/2020. FINDINGS: No pneumothorax or no pleural effusions. The cardiac silhouette remains mildly enlarged. Mi ld diffuse interstitial thickening and patchy hazy bilateral airspace opacities have slightly progres sed. IMPRESSION: Slight progression of the diffuse interstitial thickening and patchy hazy bilateral airspace opacitie s. This is concerning for a viral pneumonia. ACT 112: Negative or not required by law. Electronically signed by: Everardo Colin M.D. 03/19/2020 7:45 AM
[2020-03-19 07:54] LABS: BUN Creatinine Ratio 13.6 (10-20); Calcium 9.2 mg/dl (8.5-10.1); Creatinine Clr Calc Pharmacy 55.7 ml/min; Est GFR (African American) 44.6; Est GFR (Non-African American) 38.5; Potassium 4.4 mmol/L (3.5-5.1)
[2020-03-19 07:59] LABS: Albumin Globulin Ratio 0.7 (0.9-2); Bilirubin,Total 0.4 mg/dl (0.2-1); Globulin 4.2 gm/dl (2.5-4.0); Total Protein 7.2 gm/dl (6.4-8.2); Troponin I 0.019 ng/ml (0-0.045)
--- NOTE | 2020-03-19 08:25 | Emergency Department Note ---
ED Visit Note This patient was seen with Dr. Howe. We discussed and agreed upon the history, physical, assessment and plan. . Resident Activity Tracking Resident Involvement: Resident Care Provided Care Provided: Adult ED : Stage 3 chronic kidney disease Qualifiers: Chronic kidney disease stage 3 subtype: unspecified whether 3a or 3b Qualified Code(s): N18.30 - Chronic kidney disease, stage 3 unspecified Diarrhea Qualifiers: Diarrhea type: unspecified type Qualified Code(s): R19.7 - Diarrhea, unspecified
[2020-03-19 08:32] LABS: Appearance Urine Cloudy (Clear); Bacteria Urine Automated 2+ (Negative); Bilirubin Urine Negative (Negative); Blood Urine Negative (Negative); Color Urine Dark Yellow; Epithelial Cell Urine Auto >30 /lpf (0-5); Glucose Urine UA Negative (Negative); Ketones Urine Trace (Negative); Leukocyte Esterase Urine Trace (Negative); Nitrite Urine Negative (Negative); Protein Urine 2+ (Negative); Specific Gravity Urine 1.024 (1.000-1.030); Urobilinogen Urine Negative (Negative)
[2020-03-19] MEDS ORDERED: CIPROFLOXACIN 500 MG TAB PO STA (09:33)
--- NOTE | 2020-03-19 10:21 | Electrocardiogram Report ---
Test Reason : Blood Pressure : / mmHG Vent. Rate : 094 BPM Atrial Rate : 094 BPM P-R Int : 132 ms QRS Dur : 074 ms QT Int : 332 ms P-R-T Axes : 033 -16 031 degrees QTc Int : 415 ms Normal sinus rhythm Normal ECG When compared with ECG of 15-MAR-2020 23:27, No significant change was found Confirmed by Renialdo Bermeo ([id number]) on 03/19/2020 10:21:27 AM Referred By: REFERRED SELF Confirmed By:Chucho Bermeo
[2020-03-19 11:27] LABS: Amphetamines+Metham, Urine Neg (Neg); Barbiturates, Urine Neg (Neg); Benzodiazepine, Urine Neg (Neg); Cocaine, Urine Neg (Neg); MDMA (Ecstacy), Urine Pos (Neg); Methadone, Urine Neg (Neg); Opiate, Urine Neg (Neg); Phencyclidine, Urine Neg (Neg)
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
[2020-03-19] MEDS ORDERED: POLYETHYLENE (MIRALAX) 17 GM PACK PO PRN (13:14)
[2020-03-19] MEDS ORDERED: NITROGLYCERIN SL 0.4 MG/TAB TAB SL PRN (14:01)
[2020-03-19] MEDS ORDERED: ALBUTEROL HFA 8 GM INHALER INH PRN (14:01)
[2020-03-19] MEDS ORDERED: DICLOFENAC SOD 1% GEL 100 GM TUBE EXT PRN (14:01)
[2020-03-19] MEDS ORDERED: tiZANidine HCL 4 MG TABLET PO PRN (14:01)
[2020-03-19] MEDS ORDERED: ALPRAZolam 0.5 MG TABLET PO PRN (14:01)
[2020-03-19] MEDS: ONDANSETRON INJ 2 MG/ML 2 ML VIAL IV PRN (14:41)
[2020-03-19] MEDS: cefTRIAXone SODIUM 2,000 MG in DEXTROSE 5% 50 ML IV SCH (14:41)
[2020-03-19] MEDS: ACETAMINOPHEN 325 MG TAB PO PRN (16:56)
[2020-03-19] MEDS: buPROPion SR 100 MG TABCR PO SCH (16:57)
[2020-03-19] MEDS: MICONAZOLE NITRATE POWDER 43 GM EXT PRN (17:03)
[2020-03-19] MEDS: HEPARIN SOD 5,000 UNIT/0.5 ML VIAL SQ SCH (20:44)
[2020-03-19] MEDS: DULoxetine HCL 60 MG CAP PO SCH (20:44)
[2020-03-19] MEDS: ATORVASTATIN 40 MG TAB PO SCH (20:44)
[2020-03-19] MEDS: GABAPENTIN 300 MG CAP PO SCH (20:44)
[2020-03-19] MEDS ORDERED: NON-FORMULARY MEDICATION (Inulin [Fiber Gummies] 2 gram Tablet,Chewable) PO SCH (21:00)
[2020-03-19] MEDS ORDERED: INULIN 2 GM PO SCH (21:00)
[2020-03-20] MEDS: ACETAMINOPHEN 325 MG TAB PO PRN (06:07)
[2020-03-20] MEDS: HEPARIN SOD 5,000 UNIT/0.5 ML VIAL SQ SCH ×3 (06:07→21:04)
[2020-03-20 07:02] LABS: Hematocrit (blood only) 37.5 % (37-47); Mean Corpuscular Hemoglobin 29.9 pg (25-34); Mean Corpuscular Volume 93.3 fL (80-100); Mean Platelet Volume 10.3 fL (7.4-10.4); Platelet Count 148 K/uL (130-400); RDW Coefficient of Variation 14.4 % (11.5-14.5); RDW Standard Deviation 49.4 fL (36.4-46.3); Red Blood Count 4.02 M/uL (4.2-5.4); White Blood Count 4.92 K/uL (4.8-10.8)
[2020-03-20 07:25] LABS: BUN Creatinine Ratio 13.9 (10-20); Creatinine Clr Calc Pharmacy 58.9 ml/min; Est GFR (African American) 47.8; Est GFR (Non-African American) 41.2; Potassium 4.5 mmol/L (3.5-5.1)
[2020-03-20] MEDS: LORATADINE 10 MG TAB PO SCH (08:00)
[2020-03-20] MEDS: buPROPion SR 100 MG TABCR PO SCH ×2 (08:01→17:30)
[2020-03-20] MEDS: FOLIC ACID 400 MCG TAB PO SCH (08:01)
[2020-03-20] MEDS: METOPROLOL SUCC 50MG EXT REL TAB PO SCH (08:01)
[2020-03-20] MEDS: ASCORBIC ACID 500 MG TAB PO SCH (08:01)
[2020-03-20] MEDS: ASPIRIN 81 MG ECTAB PO SCH (08:01)
[2020-03-20] MEDS: TAMSULOSIN HCL 0.4 MG CAP PO SCH (08:01)
[2020-03-20] MEDS: PANTOprazole 40 MG TAB PO SCH (08:01)
[2020-03-20] MEDS: CYANOCOBALAMIN 500 MCG TABLET (VITAMIN B-12) PO SCH (08:02)
[2020-03-20] MEDS: OMEGA-3 (PURIFIED FISH OIL) 1 GM CAP PO SCH (08:02)
[2020-03-20] MEDS: FERROUS SULFATE 325 MG TAB PO SCH (08:02)
[2020-03-20] MEDS: MICONAZOLE NITRATE POWDER 43 GM EXT PRN (09:45)
--- NOTE | 2020-03-20 11:26 | Psychiatric Consultation ---
Date of Consultation March 20, 2020 Impression / Recommendations Impression Dr. Trip Massey was directly involved in review and discussion of the patient's case and participated in medical decision making regarding treatment recommendations. RECOMMENDATIONS: 03/20 - Psychiatric consultation requested to evaluate patient for suicidal statements - patient reported concern regarding ability to care for self when informed she did not meet medical criteria for a hospital admission. Pt had then reported SI with thoughts to cut her wrists. - Pt is denying SI at this time, stating the thoughts resolved once she was admitted medically. Pt is going through some particularly stressful situations, but it does seem that suicidal statements were condition and verbalized in the setting of feeling as though her needs were not being met. Now that patient is noticing physical improvement, she states she feels safe to be discharged home "once I'm able to keep food down." - Pt's brother was contacted with recommendation to schedule a family meeting. Brother declined to participate, feeling it would not be beneficial. He did indicate that he would try to arrange for the patient's toilet concerns to be addressed - which will be helpful to mitigate a reported significant stressor for the patient. In the interim she appreciated the suggestion to line her toilet with trash bags and dispose of the material, rather than continuing to use chux pads as she has been. - Pt was able to verbalize aspects of a safety plan. She reports her dog and family are protective factors against harming self. She indicates that she feels safe to return home. Pt states that she has another sister and a neighbor, both of whom she feels comfortable calling with any needs or any significant changes to her mental health or safety. Pt has consistently denied SI to several members of our psychiatric service throughout the day today. - As long as patient continues to deny suicidality, it seems that she could be discharged home when medically appropriate. (1) Verbalizes suicidal thoughts: 03/20 - Pt admitted medically to our COVID unit due to reports of SI and inability to contract for safety. Continue to monitor for SI and offer safe/secure setting until appropriate discharge planning can be coordinated. Our service to call patient routinely to coordinate services. - Pt has denied SI to multiple psychiatry service staff over the course of the day, stating the thoughts resolved once she was admitted medically and knew her concerns would be address. - Pt able to verbalize aspects of safety plan and states from a mental health perspective she feels comfortable with returning home "once I'm able to keep food down." (2) Anxiety and depression: 03/20 - Continue current medication regimen. - Social work to call and confirm appointment with psychiatrist, Dr. Aguilera. - Pt reports improvement in mood now that her health concerns are being addressed (3) COVID-19: Protective Factors Assessment Employed: No Psych History Identifying Data 64-year-old female admitted medically on 03/19/2020 after presenting to the ED with reports of weakness and worsening symptoms of her known COVID-19 infection. Pt presented to the ED on 03/16/2020 for testing and reports her symptoms are worsening. Pt informed initially she did not meet medical criteria for hospital admission, and then verbalized concerns regarding ability to care for self at home. Pt did verbalize suicidal thoughts to cut her wrists and was therefore admitted to our COVID unit due to inability to contract for safety and COVID positive status. Psychiatric consultation was requested due to SI. Chief Complaint "I'm here for COVID." History of Present Illness Caroline Paulino is a 64-year-old female admitted medically on 03/19/2020 after presenting to the ED with reports of weakness and worsening COVID-19 symptoms. Documentation suggests the patient presented to the ED on 03/16/2020 with reported symptoms and shared that her mother and sister had tested positive. Test was sent out and later found to be positive, patient was discharge home with recommendations for supportive treatment. She returned to the ED on 03/19/2020 with worsening COVID-19 symptoms. Pt was informed that she did not meet medical criteria for admission. It appears that at that point the patient had reported suicidal ideation with thought to "slit my wrists" and had verbalized concern for increased stress. Pt stated that she has not had a working toilet for a few days and has had to use chux pads on the floor. Pt did not feel safe to return home, so was admitted medically for monitoring of safety. Psychiatric consultation was requested to evaluate patient for reported suicidal ideation. Pt's assessment was completed via phone per infection control recommendations due to her COVID+ status. Pt was agreeable with means of service delivery and was identified using two unique identifiers. Prior to this provider calling the patient's room phone, she had already spoken with our recreational therapist and our health and social care teacher. Pt had reportedly denied suicidal ideation during both of those conversations. Pt did participate in an initial brief conversation with this provider, having stated she needed to eat her lunch while it was still warm. She was more willing to participate in conversation when this provider called back. Pt states she was admitted "for COVID." She states that she noticed onset of a fever and headache and was concerned since her sister and mother have been hospitalized with COVID-19. Pt was asked how she is doing now and reports "I got treated, I was glad to be here." Pt did not bring up her suicidal statements until asked directly by this provider. She then stated, "oh...yeah. I said something about hurting myself. But I shouldn't have said that." Pt does admit that she told staff she had thoughts to cut her wrists if she were to return home. Pt reported a more depressed mood in the past month due to numerous stress. A specific concern outside of her COVID-19 worry is that her toilet is broken and not able to be fixed as family does not feel comfortable entering the home due to the coronavirus. Pt admits she has been toileting on chux pads for several days. The patient was encouraged to consider lining her toilet with a garbage bag and disposing of material after use - at least in the interim. Pt states "Oh, now there's an idea. I think that would work a lot better." Pt states the toilet is the only concern she has regarding accommodations in her home or ability to care for herself. Pt states she has another sister and a neighbor, both of whom she feels comfortable contacting in an emergency or if she needs someone to talk to. Pt states she would plan to reach out to her psychiatrist with any recurrence of SI or acute mood concerns. Now that her perceived needs have been met, the patient states "I'm really hoping to go home soon, I miss my dog." She states that from a mental health perspective she feels safe to return home, but states "once I'm able to keep my food down." Pt denied other needs from our service and was agreeable with our team confirming her next psychiatry appointment with Dr. Aguilera. Pt consistently denied SI over the course of our conversation. She denied other needs or concerns at this time. Past Psychiatric History Current Psychiatric Diagnosis: Depression and anxiety Outpatient Services: Reports previous hospitalization at the [facility] on two occasions in 2005. No available history of psychiatric admission to our unit. History of Previous Suicide Attempt: Yes (~20 years ago) Describe Attempts in the Past: Cut wrists Allergies Allergy/AdvReac Type Severity Reaction Status Date / Time egg AdvReac Intermediate GI upset Verified 03/19/20 06:46 ibuprofen AdvReac Mild stomach Verified 03/19/20 06:46 irritation Home Medications Medication Instructions Recorded Confirmed Type [place] 3-6-9 1 cap PO QAM 06/16/18 03/19/20 History aspirin [Aspirin Low Dose] 81 mg PO QAM 06/16/18 03/19/20 History atorvastatin 80 mg PO QPM 06/16/18 03/19/20 History bupropion HCl [Wellbutrin SR] 200 mg PO BIDM 06/16/18 03/19/20 History cholecalciferol (vitamin D3) 2,000 unit PO QAM 06/16/18 03/19/20 History [Vitamin D3] cyanocobalamin (vitamin B-12) 1,000 mcg PO QAM 06/16/18 03/19/20 History [Vitamin B-12] ferrous sulfate 325 mg PO QAM 06/16/18 03/19/20 History folic acid 0.8 mg PO QAM 06/16/18 03/19/20 History gabapentin [Neurontin] 600 mg PO HS 06/16/18 03/19/20 History loratadine 10 mg PO QAM 06/16/18 03/19/20 History Fiber Gummies 2 g PO BID 11/26/18 03/19/20 History diclofenac sodium [Voltaren] 4 g TOPICAL QID PRN 12/01/19 03/19/20 History alprazolam 1 mg PO BID PRN 12/13/19 03/19/20 History ascorbic acid (vitamin C) 250 mg PO DAILY 12/13/19 03/19/20 History docusate sodium [Colace] 100 mg PO BID 12/13/19 03/19/20 History inulin 2 g PO BID 12/13/19 03/19/20 History oxycodone 5 mg PO Q6 PRN 12/13/19 03/19/20 History sennosides [Senokot] 8.6 mg PO HS PRN 12/13/19 03/19/20 History tizanidine 4 mg PO Q6H PRN 12/13/19 03/19/20 History nitroglycerin 0.4 mg SUBLINGUAL UD PRN 12/14/19 03/19/20 History polyethylene glycol 3350 [Miralax] 17 g PO DAILY PRN #30 ea 12/16/19 03/19/20 Rx tamsulosin 0.4 mg capsule 0.4 mg PO DAILY #30 cap 01/23/20 03/19/20 Rx albuterol sulfate 2 puff INHALATION QID PRN 03/16/20 03/19/20 History duloxetine [Cymbalta] 60 mg PO BID 03/16/20 03/19/20 History lisinopril 10 mg PO DAILY 03/16/20 03/19/20 History metoprolol succinate 50 mg PO DAILY 03/16/20 03/19/20 History omeprazole 40 mg PO DAILY 03/16/20 03/19/20 History ondansetron 4 mg PO Q6H PRN #15 tab 03/16/20 03/19/20 Rx nystatin 1 applic TOPICAL BID #15 g 03/19/20 Rx Substance Abuse History Denies significant alcohol or tobacco use. Denies use of illicit substances. Though patient's brother reports the patient abuses pain medication. Personal History Living Arrangements: Home (usually with mother and sister (both now hospitalized with COVID-19)) Employment Status: Unemployed Marital Status: Single Patient History Medical History Anemia chronic; baseline hgb 9-10 range per chart review Anxiety and depression Aortic stenosis Mild (per cardiology review) aortic stenosis with possible bicuspid aortic valve (MG 19mmhg, NIKKIE 3.0) per 05/2018 ECHO Bullous pemphigoid CAD (coronary artery disease) non-obstructive Carotid artery stenosis "mild" Chronic back pain GERD (gastroesophageal reflux disease) controlled High cholesterol History of blood transfusion 2 Units PRBC's post-operatively Hx of falling last fall 09/2018- per patient, related to LBP/balance issues- ? r/t ambulatory dysfunction- improved with cane/walker use Hypertension Morbid obesity Osteoporosis Renal failure Stage 3 chronic kidney disease Surgical History History of back surgery History of cardiac cath 2017= NO STENTS History of kyphoplasty History of right knee joint replacement Hx of laparoscopy Family History Father Stroke Mother Stroke Social History Smoking Status: Unknown if ever smoked Tobacco Type: Cigarettes Second Hand Exposure: No; Hx Alcohol Use: No Hx Substance Use: No Preferred Language: Polish Communication Ability: Effective Visual Impairment: No Limitations Hearing Ability: Normal Forester Aide Required: No marital status: Single Current Living Situation: Parent Current Living Situation Comment: lives with mother and sister current occupational status: unemployed and disabled Other Information That Helps Us Care for You: No Feels Safe at Home: Yes Safety Concerns: Feels Safe At This Time Assistive Devices: None Physical Exam Psychiatric: Orientation: alert, oriented x 3 and cooperative Speech: normal rate/rhythm/volume of speech Mood: + depressed mood ("more depressed for the past week, since all this started"); no anxious mood Thought Process: goal directed thought process, clear/coherent thought process and + concrete thought process Thought Content: reality based without delusions and + loneliness (related to her family being hospitalized with COVID-19); no hopelessness and no worthlessness Suicidal Thoughts: denies suicidal thoughts, denies suicidal plan and denies suicidal intent states SI resolved once the patient was admitted medically and her needs were addressed. Homicidal Thoughts: denies homicidal thoughts Hallucinations: no auditory hallucinations and no visual hallucinations Cognition: attention grossly intact and language grossly intact Estimated Intelligence: + below average estimated intelligence Insight: + limited insight Judgement: + limited judgement Vital Signs (Past 24 Hours): Last Vital Signs Temp 36.6 C 03/20/20 07:00 Pulse 93 H 03/20/20 07:00 Resp 18 03/20/20 07:00 BP 108/63 03/20/20 07:00 Pulse Ox 93 03/20/20 10:28 Exam Statement: Unable to assess visual aspects of physical examination due to assessment being conducted via telephone - patient is COVID positive. Review of Systems Constitutional: denied Cardiovascular: denied Respiratory: denied Gastrointestinal: reports abdominal pain and "problems keeping food down" Neurological: denied Psychiatric: denies symptoms other than stated above Total of at least 10 systems reviewed, pertinent positives as above and in HPI. Results & Data (PSY) Medications Administered Acetaminophen (Acetaminophen 325 Mg Tab) 650 mg PO Q4H PRN PRN Reason: pain/fever Stop: 04/18/20 13:13 Last Admin: 03/20/20 06:07 Dose: 650 mg Documented by: [id number] Admin: 03/19/20 16:56 Dose: 650 mg Documented by: [id number] Ascorbic Acid (Ascorbic Acid 500 Mg Tab) 250 mg PO DAILY [facility] Stop: 04/19/20 08:59 Last Admin: 03/20/20 08:01 Dose: 250 mg Documented by: [id number] Aspirin (Aspirin 81 Mg Ectab) 81 mg PO QAM [facility] Stop: 04/19/20 08:59 Last Admin: 03/20/20 08:01 Dose: 81 mg Documented by: [id number] Atorvastatin Calcium (Atorvastatin 40 Mg Tab) 80 mg PO QPM [facility] Stop: 04/18/20 20:59 Last Admin: 03/19/20 20:44 Dose: 80 mg Documented by: [id number] Bupropion HCl (Bupropion Sr 100 Mg Tabcr) 200 mg PO BIDM [facility] Stop: 04/18/20 16:59 Last Admin: 03/20/20 08:01 Dose: 200 mg Documented by: [id number] Admin: 03/19/20 16:57 Dose: 200 mg Documented by: [id number] Cyanocobalamin (Cyanocobalamin 500 Mcg Tablet (Vitamin B-12)) 1,000 mcg PO QAM [facility] Stop: 04/19/20 08:59 Last Admin: 03/20/20 08:02 Dose: 1,000 mcg Documented by: [id number] Duloxetine HCl (Duloxetine Hcl 60 Mg Cap) 60 mg PO BID [facility] Stop: 04/18/20 20:59 Last Admin: 03/19/20 20:44 Dose: 60 mg Documented by: [id number] Ferrous Sulfate (Ferrous Sulfate 325 Mg Tab) 325 mg PO QAM [facility] Stop: 04/19/20 08:59 Last Admin: 03/20/20 08:02 Dose: 325 mg Documented by: [id number] Fish Oil ([place]-3 (Purified Fish Oil) 1 Gm Cap) 1 gm PO QAM [facility] Stop: 04/19/20 08:59 Last Admin: 03/20/20 08:02 Dose: 1 gm Documented by: [id number] Folic Acid (Folic Acid 400 Mcg Tab) 800 mcg PO QAM [facility] Stop: 04/19/20 08:59 Last Admin: 03/20/20 08:01 Dose: 800 mcg Documented by: [id number] Gabapentin (Gabapentin 300 Mg Cap) 600 mg PO HS [facility] Stop: 04/18/20 20:59 Last Admin: 03/19/20 20:44 Dose: 600 mg Documented by: [id number] Heparin Sodium (Porcine) (Heparin Sod 5,000 Unit/0.5 Ml Vial) 5,000 units SQ Q8 [facility] Stop: 04/18/20 21:59 Last Admin: 03/20/20 06:07 Dose: 5,000 units Documented by: [id number] Admin: 03/19/20 20:44 Dose: 5,000 units Documented by: [id number] Ceftriaxone Sodium 2,000 mg/ (Dextrose) 70 mls @ 100 mls/hr IV Q24H [facility]; Protocol Stop: 03/24/20 13:59 Last Infusion: 03/19/20 15:38 Dose: 0 mls/hr Documented by: [id number] Admin: 03/19/20 14:41 Dose: 100 mls/hr Documented by: [id number] Loratadine (Loratadine 10 Mg Tab) [facility]: 04/19/20 08:59 Last Admin: 03/20/20 08:00 Dose: 10 mg Documented by: [id number] Metoprolol Succinate (Metoprolol Succ 50mg Ext Rel Tab) 50 mg PO DAILY [facility] Stop: 04/19/20 08:59 Last Admin: 03/20/20 08:01 Dose: 50 mg Documented by: [id number] Miconazole Nitrate (Miconazole Nitrate Powder 43 Gm) 1 appln EXT PRN PRN PRN Reason: Affected Skin Folds Stop: 04/18/20 14:05 Last Admin: 03/19/20 17:03 Dose: 1 appln Documented by: [id number] Ondansetron HCl (Ondansetron Inj 2 Mg/Ml 2 Ml Vial) 4 mg IV Q6H PRN PRN Reason: Nausea Stop: 04/18/20 14:03 Last Admin: 03/19/20 14:41 Dose: 4 mg Documented by: [id number] Pantoprazole Sodium (Pantoprazole 40 Mg Tab) 40 mg PO DAILY [facility]; Protocol Stop: 04/19/20 08:59 Last Admin: 03/20/20 08:01 Dose: 40 mg Documented by: [id number] Tamsulosin HCl (Tamsulosin Hcl 0.4 Mg Cap) 0.4 mg PO DAILY [facility] Stop: 04/19/20 08:59 Last Admin: 03/20/20 08:01 Dose: 0.4 mg Documented by: [id number] Coding Level of Care Code 97840 U Intl Hosp Care Lvl 2 Diagnoses Verbalizes suicidal thoughts R45.851 Anxiety and depression F41.9; F32.9 COVID-19 U07.1 Comment Tele-health billing: assessment completed via telephone due to COVID+ status of patient
[2020-03-20] MEDS: CHOLECALCIFEROL 1,000 UNITS 25 MCG TAB PO SCH (11:48)
[2020-03-20] MEDS: DULoxetine HCL 60 MG CAP PO SCH ×2 (11:49→21:04)
[2020-03-20] MEDS: lisinopril 10 MG TAB PO SCH (11:49)
[2020-03-20] MEDS: cefTRIAXone SODIUM 2,000 MG in DEXTROSE 5% 50 ML IV SCH (13:50)
--- NOTE | 2020-03-20 15:10 | Hospitalist Progress Note ---
Date of Service March 20, 2020 Assessment & Plan (1) COVID-19: (2) Suicidal ideation: (3) Anxiety and depression: (4) Back pain: (5) Stage 3 chronic kidney disease: (6) CAD (coronary artery disease): (7) Hypertension: (8) Nocturia: Radha 64 yo F with a PMH of CKD III, moderate aortic stenosis, chronic back pain on opioids, HTN, anxiety and depression who presented with generalized weakness and worsening diarrhea since her diagnosis of COVID-19 on February 13. Generalized weakness/diarrhea Recent diagnosis of COVID-19 03/16 Possible urinary tract infection Depressed/suicidal Mild hyponatremia History of anxiety/depression History of CKD stage III History of coronary artery disease History of hypertension Covid Patient was initially diagnosed in March 16. Her mother and sister also admitted in the hospital for COVID-19. Her primary complaint was diarrhea and feeling nauseous. Chest x-ray with bilateral hazy opacities. However patient is afebrile. White count is within normal limit. Patient is on room air. Will continue with conservative management for now. Zofran as needed for nausea. Continue with heart healthy diet. Suicidal ideation Anxiety, depression Patient presented with a suicidal ideation. Have been facing issues with her brother and her mother and sister being in the hospital feels depressed. Psychiatry is consulted and they are on board. UTI ruled out; will discontinue antibiotic CKD III Kidney function at baseline. Continue to monitor with daily BMP Back pain Chronic with ambulatory dysfunction Continue to work with PT/OT. CAD Stable, no reports of chest pain. Continue aspirin, metoprolol with hold parameters Nocturia Recently seen by urology. Continue tamsulosin. Bladder scan PRN DVT Ppx: SQ heparin Code status: FULL PCP: Temo Admission and Anticipated Discharge Date Admission Date: March 19, 2020 Subjective Overnight no major issues. Patient however does feel nauseous and had vomiting. Denies any chest pain or shortness of breath. Denies any cough or sore throat. Does have left lower quadrant abdominal pain. Denies any diarrhea or dysuria. Rest of the review of system is negative. Review of Systems Review of Systems: All systems reviewed & are unremarkable except as noted in HPI & below Physical Exam Physical Exam: General: A&Ox3. Obese female HENT: NCAT, MMM, EOMI Eyes: PERRLA Neck: Supple, normal range of motion CVS: normal rate and rhythm Resp: b/l decreased breath sound secondary to body habitus Abdomen: Soft, ND/NT, +BS Extremities: No c/c/e Neuro: face symmetric, strength grossly equal, no focal deficit Skin: warm and dry MSK: normal ROM, no joint swelling/erythema Results & Data Results & Data ([facility]) Vital Signs (Past 12 Hours) Vital Signs Temp Pulse Resp BP Pulse Ox Pulse Ox 03/20/20 11:53 36.5 C 76 20 130/77 94 03/20/20 10:28 93 03/20/20 07:00 36.6 C 93 H 18 108/63 91 (1) Back pain Back pain laterality: left Back pain location: low back pain Chronicity: chronic Sciatica presence: without sciatica Qualified Code(s): M54.5 - Low back pain; G89.29 - Other chronic pain (2) Stage 3 chronic kidney disease Chronic kidney disease stage 3 subtype: unspecified whether 3a or 3b Qualified Code(s): N18.30 - Chronic kidney disease, stage 3 unspecified
[2020-03-20] MEDS: ONDANSETRON INJ 2 MG/ML 2 ML VIAL IV PRN (17:30)
[2020-03-20] MEDS: ATORVASTATIN 40 MG TAB PO SCH (21:04)
[2020-03-20] MEDS: GABAPENTIN 300 MG CAP PO SCH (21:04)
[2020-03-20] MEDS: oxyCODONE HCL IR 5 MG TAB (IMMEDIATE RELEASE) PO PRN (21:11)
[2020-03-21] MEDS: HEPARIN SOD 5,000 UNIT/0.5 ML VIAL SQ SCH ×3 (05:35→20:07)
[2020-03-21 07:15] LABS: Hematocrit (blood only) 34.6 % (37-47); Mean Corpuscular Hemoglobin 29.6 pg (25-34); Mean Corpuscular Hgb Conc 31.8 g/dL (32-36); Mean Corpuscular Volume 93.3 fL (80-100); Mean Platelet Volume 10.4 fL (7.4-10.4); Platelet Count 155 K/uL (130-400); RDW Coefficient of Variation 14.4 % (11.5-14.5); RDW Standard Deviation 48.8 fL (36.4-46.3); Red Blood Count 3.71 M/uL (4.2-5.4); White Blood Count 4.65 K/uL (4.8-10.8)
[2020-03-21 07:32] LABS: BUN Creatinine Ratio 14.5 (10-20); Calcium 8.6 mg/dl (8.5-10.1); Creatinine Clr Calc Pharmacy 56.4 ml/min; Est GFR (African American) 45.4; Est GFR (Non-African American) 39.2; Potassium 4.2 mmol/L (3.5-5.1)
[2020-03-21] MEDS: FERROUS SULFATE 325 MG TAB PO SCH (08:48)
[2020-03-21] MEDS: OMEGA-3 (PURIFIED FISH OIL) 1 GM CAP PO SCH (08:48)
[2020-03-21] MEDS: ASPIRIN 81 MG ECTAB PO SCH (08:49)
[2020-03-21] MEDS: FOLIC ACID 400 MCG TAB PO SCH (08:49)
[2020-03-21] MEDS: DULoxetine HCL 60 MG CAP PO SCH ×2 (08:49→20:06)
[2020-03-21] MEDS: TAMSULOSIN HCL 0.4 MG CAP PO SCH (08:49)
[2020-03-21] MEDS: lisinopril 10 MG TAB PO SCH (08:49)
[2020-03-21] MEDS: CHOLECALCIFEROL 1,000 UNITS 25 MCG TAB PO SCH (08:49)
[2020-03-21] MEDS: CYANOCOBALAMIN 500 MCG TABLET (VITAMIN B-12) PO SCH (08:50)
[2020-03-21] MEDS: LORATADINE 10 MG TAB PO SCH (08:50)
[2020-03-21] MEDS: PANTOprazole 40 MG TAB PO SCH (08:50)
[2020-03-21] MEDS: ASCORBIC ACID 500 MG TAB PO SCH (08:51)
[2020-03-21] MEDS: buPROPion SR 100 MG TABCR PO SCH ×2 (08:51→17:18)
[2020-03-21] MEDS: METOPROLOL SUCC 50MG EXT REL TAB PO SCH (08:51)
--- NOTE | 2020-03-21 11:11 | Hospitalist Progress Note ---
Date of Service March 21, 2020 Assessment & Plan (1) COVID-19: (2) Suicidal ideation: (3) Anxiety and depression: (4) Back pain: (5) Stage 3 chronic kidney disease: (6) CAD (coronary artery disease): (7) Hypertension: (8) Nocturia: Radha 64 yo F with a PMH of CKD III, moderate aortic stenosis, chronic back pain on opioids, HTN, anxiety and depression who presented with generalized weakness and worsening diarrhea since her diagnosis of COVID-19 on February 13. Generalized weakness/diarrhea Recent diagnosis of COVID-19 03/16 Possible urinary tract infection Depressed/suicidal Mild hyponatremia History of anxiety/depression History of CKD stage III History of coronary artery disease History of hypertension Covid Patient was initially diagnosed in March 16. Her mother and sister also admitted in the hospital for COVID-19. Her primary complaint was diarrhea and feeling nauseous. Chest x-ray with bilateral hazy opacities. However patient is afebrile. White count is within normal limit. Patient is on room air. Will continue with conservative management for now. Zofran as needed for nausea. Continue with heart healthy diet. Given her ongoing left lower quadrant abdominal pain and nausea, will proceed with CT abdomen/pelvis with contrast. Suicidal ideation Anxiety, depression Patient presented with a suicidal ideation. Have been facing issues with her brother and her mother and sister being in the hospital feels depressed. As per psychiatry, is only patient denies suicidal intention she can be discharged home. However, today initially patient reported that she had suicidal intentions but then later upon repeat questioning she denied. Will touch base with psychiatry to clear her for one-to-one. UTI ruled out; will discontinue antibiotic CKD III Kidney function at baseline. Continue to monitor with daily BMP Back pain Chronic with ambulatory dysfunction Continue to work with PT/OT. CAD Stable, no reports of chest pain. Continue aspirin, metoprolol with hold parameters Nocturia Recently seen by urology. Continue tamsulosin. Bladder scan PRN DVT Ppx: SQ heparin Code status: FULL PCP: Temo Admission and Anticipated Discharge Date Admission Date: March 19, 2020 Subjective Patient reports she is not feeling good today. Reports she continues to have nausea. States she also has persistent abdominal pain. Denies any episodes of vomiting. Continues to have one-to-one sitter. Initially she stated that she still does have thoughts of hurting herself but again upon repeating the question she said no she does not. However she does feel depressed. Requesting if she can go and see her mother who is in the hospital with Covid and also. Review of Systems Review of Systems: All systems reviewed & are unremarkable except as noted in HPI & below Physical Exam Physical Exam: General: A&Ox3. Obese female HENT: NCAT, MMM, EOMI Eyes: PERRLA Neck: Supple, normal range of motion CVS: normal rate and rhythm Resp: b/l decreased breath sound secondary to body habitus Abdomen: Soft, ND/NT, +BS Extremities: No c/c/e Neuro: face symmetric, strength grossly equal, no focal deficit Skin: warm and dry MSK: normal ROM, no joint swelling/erythema Results & Data Results & Data ([facility]) Vital Signs (Past 12 Hours) Vital Signs Temp Pulse Resp BP Pulse Ox 03/21/20 07:20 36.8 C 81 20 124/80 90 03/21/20 04:44 36.4 C L 74 20 135/82 94 (1) Back pain Back pain laterality: left Back pain location: low back pain Chronicity: chronic Sciatica presence: without sciatica Qualified Code(s): M54.5 - Low back pain; G89.29 - Other chronic pain (2) Stage 3 chronic kidney disease Chronic kidney disease stage 3 subtype: unspecified whether 3a or 3b Qualified Code(s): N18.30 - Chronic kidney disease, stage 3 unspecified
[2020-03-21] MEDS ORDERED: OPTIRAY 320 100ml IV ONE (14:51)
--- NOTE | 2020-03-21 15:16 | CT Scan Report ---
CT abd pelvis oral and IV con CLINICAL HISTORY: Left lower quadrant abdominal pain and nausea. COMPARISON STUDY: 01/14/2020 TECHNIQUE: The patient was scanned following administration of dilute oral contrast, and in a dynamic helical fashion during intravenous administration of 94 cc of Optiray 320. A dose lowering techniqu e was utilized adhering to the principles of ALARA. CT DOSE: 1206.15 mGycm FINDINGS: Lower chest: There are multifocal peripheral groundglass opacity suspicious for a multifocal pneumoni a. Correlation with Covid 19 testing is recommended. Liver: The contrast-enhanced liver is normal in size, contour, and attenuation. There is no intrahepa tic biliary ductal dilatation. The hepatic veins and portal veins are patent. Gallbladder: Unremarkable. Spleen: Normal in size and attenuation. Pancreas: Unremarkable. Adrenal glands: There is a 15 mm right adrenal nodule Kidneys: There is a 3 mm nonobstructing lower pole right renal calculus. There are bilateral renal hy podensities statistically representing cysts. Evaluation is somewhat limited given the patient's larg e body habitus and secondary artifact Bowel: There are no transition zones indicate bowel obstruction. The appendix is surgically absent. T here is colonic diverticulosis. There is no evidence of acute diverticulitis. Peritoneum: There is no intraperitoneal free air or abdominal ascites. Vasculature: The abdominal aorta is normal in course and caliber. Adenopathy: None. Pelvic viscera: The bladder, and pelvic viscera are unremarkable. Skeletal structures: There are advanced degenerative changes present within the spine with multilevel spinal stenosis. There is gas present within the anterior abdominal wall possibly secondary to an in jection site. IMPRESSION: 1. No evidence of bowel obstruction. No evidence of free air 2. Colonic diverticulosis. No evidence of acute diverticulitis 3. Nonobstructing lower pole right renal calculus 4. 15 mm right adrenal nodule 5. Gas present within the lower left anterior abdominal wall, possibly secondary to injection site. P lease correlate clinically 6. Bilateral pulmonary airspace opacities suspicious for a multifocal pneumonia. The findings are con sistent with although not specific for Covid 19 pneumonia ACT 112: Negative or not required by law. Electronically signed by: Harjit Turner M.D. 03/21/2020 3:14 PM
[2020-03-21] MEDS: MICONAZOLE NITRATE POWDER 43 GM EXT PRN (17:30)
[2020-03-21] MEDS: GABAPENTIN 300 MG CAP PO SCH (20:05)
[2020-03-21] MEDS: ATORVASTATIN 40 MG TAB PO SCH (20:06)
[2020-03-21] MEDS: oxyCODONE HCL IR 5 MG TAB (IMMEDIATE RELEASE) PO PRN (21:04)
[2020-03-22] MEDS: HEPARIN SOD 5,000 UNIT/0.5 ML VIAL SQ SCH ×3 (05:47→20:30)
[2020-03-22 07:42] LABS: MDA negative; MDEA negative; MDMA (Ecstasy) Urine, Confirm negative
[2020-03-22] MEDS: ASCORBIC ACID 500 MG TAB PO SCH (09:08)
[2020-03-22] MEDS: FERROUS SULFATE 325 MG TAB PO SCH (09:08)
[2020-03-22] MEDS: CYANOCOBALAMIN 500 MCG TABLET (VITAMIN B-12) PO SCH (09:08)
[2020-03-22] MEDS: TAMSULOSIN HCL 0.4 MG CAP PO SCH (09:08)
[2020-03-22] MEDS: CHOLECALCIFEROL 1,000 UNITS 25 MCG TAB PO SCH (09:08)
[2020-03-22] MEDS: LORATADINE 10 MG TAB PO SCH (09:08)
[2020-03-22] MEDS: buPROPion SR 100 MG TABCR PO SCH ×2 (09:08→17:08)
[2020-03-22] MEDS: OMEGA-3 (PURIFIED FISH OIL) 1 GM CAP PO SCH (09:09)
[2020-03-22] MEDS: ASPIRIN 81 MG ECTAB PO SCH (09:09)
[2020-03-22] MEDS: FOLIC ACID 400 MCG TAB PO SCH (09:09)
[2020-03-22] MEDS: MICONAZOLE NITRATE POWDER 43 GM EXT PRN (09:09)
[2020-03-22] MEDS: lisinopril 10 MG TAB PO SCH (09:10)
[2020-03-22] MEDS: METOPROLOL SUCC 50MG EXT REL TAB PO SCH (09:10)
[2020-03-22] MEDS: PANTOprazole 40 MG TAB PO SCH (09:11)
[2020-03-22 09:44] LABS: Basophils # (auto) 0.02 K/uL (0-0.2); Basophils % (auto) 0.4 %; Eosinophils # (auto) 0.17 K/uL (0-0.5); Eosinophils % (auto) 3.2 %; Hematocrit (blood only) 34.3 % (37-47); Hemoglobin 10.7 g/dL (12.0-16.0); Immature Granulocytes # (auto) 0.02 K/uL (0.00-0.02); Immature Granulocytes % (auto) 0.4 %; Lymphocytes # (auto) 1.42 K/uL (1.2-3.4); Mean Corpuscular Hemoglobin 29.2 pg (25-34); Mean Corpuscular Hgb Conc 31.2 g/dL (32-36); Mean Corpuscular Volume 93.5 fL (80-100); Mean Platelet Volume 10.2 fL (7.4-10.4); Monocytes # (auto) 0.63 K/uL (0.11-0.59); Neutrophils # (auto) 2.99 K/uL (1.4-6.5); Platelet Count 189 K/uL (130-400); RDW Coefficient of Variation 14.5 % (11.5-14.5); RDW Standard Deviation 49.1 fL (36.4-46.3); Red Blood Count 3.67 M/uL (4.2-5.4); White Blood Count 5.25 K/uL (4.8-10.8)
[2020-03-22] MEDS ORDERED: ALUMINUM/MAGNESIUM SUSP 18 ML, LIDOCAINE HCL VISCOUS 2% 6 ML, BARCODE IDENTIFIER 1 EA PO STA (09:46)
[2020-03-22] MEDS: DULoxetine HCL 60 MG CAP PO SCH ×2 (09:49→20:28)
[2020-03-22 10:00] LABS: Alanine Aminotransferase 25 U/L (12-78); Albumin Level 2.6 gm/dl (3.4-5.0); Aspartate Aminotransferase 24 U/L (15-37); BUN Creatinine Ratio 13.6 (10-20); Blood Urea Nitrogen 21 mg/dl (7-18); Calcium 8.8 mg/dl (8.5-10.1); Carbon Dioxide 26 mmol/L (21-32); Chloride 102 mmol/L (98-107); Creatinine Clr Calc Pharmacy 53.1 ml/min; Est GFR (African American) 42.1; Est GFR (Non-African American) 36.4; Glucose 115 mg/dl (70-99); Potassium 4.3 mmol/L (3.5-5.1); Sodium 135 mmol/L (136-145)
[2020-03-22 10:04] LABS: Albumin Globulin Ratio 0.7 (0.9-2); Alkaline Phosphatase 77 U/L (45-117); Bilirubin,Total 0.5 mg/dl (0.2-1); Globulin 3.9 gm/dl (2.5-4.0); Total Protein 6.5 gm/dl (6.4-8.2); Troponin I < 0.015 ng/ml (0-0.045)
--- NOTE | 2020-03-22 11:12 | Hospitalist Progress Note ---
Date of Service March 22, 2020 Assessment & Plan (1) COVID-19: (2) Suicidal ideation: (3) Anxiety and depression: (4) Back pain: (5) Stage 3 chronic kidney disease: (6) CAD (coronary artery disease): (7) Hypertension: (8) Nocturia: Radha 64 yo F with a PMH of CKD III, moderate aortic stenosis, chronic back pain on opioids, HTN, anxiety and depression who presented with generalized weakness and worsening diarrhea since her diagnosis of COVID-19 on February 13. Generalized weakness/diarrhea Recent diagnosis of COVID-19 03/16 Possible urinary tract infection Depressed/suicidal Mild hyponatremia History of anxiety/depression History of CKD stage III History of coronary artery disease History of hypertension Covid Patient was initially diagnosed in March 16. Her mother and sister also admitted in the hospital for COVID-19. Her primary complaint was diarrhea and feeling nauseous. Chest x-ray with bilateral hazy opacities. However patient is afebrile. White count is within normal limit. Patient is on room air. Will continue with conservative management for now. Zofran as needed for nausea. Continue with heart healthy diet. Abdominal/pelvis CT was obtained on 03/21 without any acute findings given her ongoing nausea and left lower quadrant abdominal pain. Today patient reports the pain is improved. Chest pain Patient reports for the past 6 months she has been experiencing intermittent episodes of chest pain. EKG was obtained which was nonischemic. Troponin was ordered. We will order stress echo. Suicidal ideation Anxiety, depression Patient presented with a suicidal ideation. Have been facing issues with her brother and her mother and sister being in the hospital feels depressed. As per psychiatry, is only patient denies suicidal intention she can be discharged home. Today patient denies being suicidal but does report feeling depressed. We will touch base with psychiatry to clear one-to-one. UTI ruled out; will discontinue antibiotic CKD III Kidney function at baseline. Continue to monitor with daily BMP Back pain Chronic with ambulatory dysfunction Continue to work with PT/OT. CAD Stable, no reports of chest pain. Continue aspirin, metoprolol with hold parameters Nocturia Recently seen by urology. Continue tamsulosin. Bladder scan PRN DVT Ppx: SQ heparin Code status: FULL PCP: Temo Admission and Anticipated Discharge Date Admission Date: March 19, 2020 Subjective This morning patient reported that she was having central chest pain. Pain was sharp in nature, nonradiating, 5 out of 10 and persistent. Patient denies any shortness of breath, cough or any sore throat. Pressures in the 90s. Reports she has been having this pain for the past 6 months at home. Physical Exam Physical Exam: General: A&Ox3. Obese female HENT: NCAT, MMM, EOMI Eyes: PERRLA Neck: Supple, normal range of motion CVS: normal rate and rhythm Resp: b/l decreased breath sound secondary to body habitus Abdomen: Soft, ND/NT, +BS Extremities: No c/c/e Neuro: face symmetric, strength grossly equal, no focal deficit Skin: warm and dry MSK: normal ROM, no joint swelling/erythema Results & Data Results & Data ([facility]) Vital Signs (Past 12 Hours) Vital Signs Temp Pulse Resp BP Pulse Ox 03/22/20 09:25 36.4 C L 86 18 92/58 L 91 03/22/20 08:24 36.6 C 82 20 97/66 L 94 (1) Back pain Back pain laterality: left Back pain location: low back pain Chronicity: chronic Sciatica presence: without sciatica Qualified Code(s): M54.5 - Low back pain; G89.29 - Other chronic pain (2) Stage 3 chronic kidney disease Chronic kidney disease stage 3 subtype: unspecified whether 3a or 3b Qualified Code(s): N18.30 - Chronic kidney disease, stage 3 unspecified
--- NOTE | 2020-03-22 11:34 | Psychiatric Progress Note ---
Date of Service March 22, 2020 Impression / Recommendations Impression RECOMMENDATIONS: 03/20 - Psychiatric consultation requested to evaluate patient for suicidal statements - patient reported concern regarding ability to care for self when informed she did not meet medical criteria for a hospital admission. Pt had then reported SI with thoughts to cut her wrists. - Pt is denying SI at this time, stating the thoughts resolved once she was admitted medically. Pt is going through some particularly stressful situations, but it does seem that suicidal statements were condition and verbalized in the setting of feeling as though her needs were not being met. Now that patient is noticing physical improvement, she states she feels safe to be discharged home "once I'm able to keep food down." - Pt's brother was contacted with recommendation to schedule a family meeting. Brother declined to participate, feeling it would not be beneficial. He did indicate that he would try to arrange for the patient's toilet concerns to be addressed - which will be helpful to mitigate a reported significant stressor for the patient. In the interim she appreciated the suggestion to line her toilet with trash bags and dispose of the material, rather than continuing to use chux pads as she has been. - Pt was able to verbalize aspects of a safety plan. She reports her dog and family are protective factors against harming self. She indicates that she feels safe to return home. Pt states that she has another sister and a neighbor, both of whom she feels comfortable calling with any needs or any significant changes to her mental health or safety. Pt has consistently denied SI to several members of our psychiatric service throughout the day today. - As long as patient continues to deny suicidality, it seems that she could be discharged home when medically appropriate. 03/22 -Patient describing continued intermittent passive suicidal ideation but without intent, plan, or any acts of furtherance. She does remain at elevated risk for self-harm due to distant history of self-harm, depression, and medical illness. Protectively she appears to be help seeking and convincingly states that she does not have any imminent intent or plan for self-harm and she expresses hopefulness that she will medically improve and be able to follow-up with her outpatient psychiatrist following discharge. (1) Verbalizes suicidal thoughts: 03/20 - Pt admitted medically to our COVID unit due to reports of SI and inability to contract for safety. Continue to monitor for SI and offer safe/secure setting until appropriate discharge planning can be coordinated. Our service to call patient routinely to coordinate services. - Pt has denied SI to multiple psychiatry service staff over the course of the day, stating the thoughts resolved once she was admitted medically and knew her concerns would be address. - Pt able to verbalize aspects of safety plan and states from a mental health perspective she feels comfortable with returning home "once I'm able to keep food down." 03/22 -Due to continued passive suicidal statements intermittently and what appears to be fairly limited insight and some executive dysfunction which might increase risk for reactive type behavior, I would continue the sitter for now. We expect that with sufficient problem-solving regarding home environment stressors and evidence of improvement in physical health will help to significantly mitigate suicidality. (2) Anxiety and depression: 03/20 - Continue current medication regimen. - Social work to call and confirm appointment with psychiatrist, Dr. Aguilera. - Pt reports improvement in mood now that her health concerns are being addressed 03/22 -Continue home dose psychotropics unchanged for now as it appears she has been on the Cymbalta and Wellbutrin combination for years -Today complaint of intermittent chest pain appears to be exacerbating anxiety (3) COVID-19: Protective Factors Assessment Employed: No Interval History Chief Complaint "I still feel depressed". Review of Systems Notes Chest pain, shortness of breath Subjective Subjective Patient was seen & assessed and interval progress reviewed with nursing. Patient was seen today via in-house phone due to infection control re commendations for COVID-19 containment. Patient was agreeable to this form of communication. She was identified with 2 unique identifiers at time of phone call. Hospitalist note reviewed from today. Patient being treated with conservative care for COVID-19 infection. She has been complaining of some intermittent episodes of chest pain. EKG nonischemic. Troponins ordered as well as stress echo. Patient denied suicidal ideation to primary team but did endorse feeling depressed today. On my interview she states that she is not actively suicidal but does describe passive wish intermittently stating that she feels like she would like to be in heaven with her father. She believes this is only been occurring since physically ill with COVID-19 infection. She denies any specific plan for self-harm presently. She does report that 20+ years ago she cut her wrists and indicates that she can be impulsive when emotional historically. She describes fatigue and some mild confusion but is fully oriented. Denies hallucinations. Indicates that she feels safe in her hospital room. She has been following with Dr. Aguilera for outpatient psychiatry for only about 1 month and is uncertain if he has made any medicine adjustments for her yet. She believes she has been on the Cymbalta and Wellbutrin for some time previously prescribed by primary care. Physical Exam Psychiatric Orientation: cooperative Unable to assess Unable to assess Speech: normal rate/rhythm/volume of speech Language unsophisticated Affect: + anxious affect Mood: + depressed mood and + anxious mood Thought Process: + concrete thought process Thought Content: + preoccupation; no delusions Suicidal Thoughts: denies suicidal plan and denies suicidal intent; + reports suicidal thoughts Passive thoughts of being preferable endorsed. No specific plan and denies intent Hallucinations: no auditory hallucinations and no visual hallucinations Estimated Intelligence: + below average estimated intelligence Insight: + limited insight Judgement: + limited judgement Vital Signs (Past 24 Hours) Last Vital Signs Temp 36.4 C L 03/22/20 09:25 Pulse 86 03/22/20 09:25 Resp 18 03/22/20 09:25 BP 92/58 L 03/22/20 09:25 Pulse Ox 91 03/22/20 09:25 Results & Data ([facility]) Laboratory Results Laboratory Results - last 24 hr 03/19/20 03/21/20 03/22/20 08:10 Unknown 09:32 WBC 5.25 RBC 3.67 L Hgb 10.7 L Hct 34.3 L MCV 93.5 MCH 29.2 MCHC 31.2 L RDW Std Deviation 49.1 H RDW Coeff of Brandy 14.5 Plt Count 189 MPV 10.2 Immature Gran % (Auto) 0.4 Neut % (Auto) 57.0 Lymph % (Auto) 27.0 [place] % (Auto) 12.0 Eos % (Auto) 3.2 Baso % (Auto) 0.4 Neut # (Auto) 2.99 Lymph # (Auto) 1.42 [place] # (Auto) 0.63 H Eos # (Auto) 0.17 Baso # (Auto) 0.02 Immature Gran # (Auto) 0.02 Sodium Potassium Chloride Carbon Dioxide Anion Gap BUN Creatinine Est Cr Clr Drug Dosing Est GFR ( Amer) Est GFR (Non-Af Amer) BUN/Creatinine Ratio Glucose Calcium Total Bilirubin AST ALT Alkaline Phosphatase Troponin I Total Protein Albumin Globulin Albumin/Globulin Ratio Stl C. diff Tox B Gene Negative Cdiff Gene Urine MDEA negative MDMA negative Urine MDMA negative 03/22/20 09:32 WBC RBC Hgb Hct MCV MCH MCHC RDW Std Deviation RDW Coeff of Brandy Plt Count MPV Immature Gran % (Auto) Neut % (Auto) Lymph % (Auto) [place] % (Auto) Eos % (Auto) Baso % (Auto) Neut # (Auto) Lymph # (Auto) [place] # (Auto) Eos # (Auto) Baso # (Auto) Immature Gran # (Auto) Sodium 135 L Potassium 4.3 Chloride 102 Carbon Dioxide 26 Anion Gap 7.0 BUN 21 H Creatinine 1.52 H Est Cr Clr Drug Dosing 53.1 Est GFR ( Amer) 42.1 Est GFR (Non-Af Amer) 36.4 BUN/Creatinine Ratio 13.6 Glucose 115 H Calcium 8.8 Total Bilirubin 0.5 AST 24 ALT 25 Alkaline Phosphatase 77 Troponin I < 0.015 Total Protein 6.5 Albumin 2.6 L Globulin 3.9 Albumin/Globulin Ratio 0.7 L Stl C. diff Tox B Gene Urine MDEA MDMA Urine MDMA Current Inpatient Medications Current Inpatient Medications: Current Inpatient Medications Acetaminophen (Acetaminophen 325 Mg Tab) 650 mg PO Q4H PRN PRN Reason: pain/fever Stop: 04/18/20 13:13 Last Admin: 03/20/20 06:07 Dose: 650 mg Documented by: Albuterol (Albuterol Hfa 8 Gm Inhaler) 2 puffs INH QID PRN; Protocol PRN Reason: Shortness Of Breath Or Wheezing Stop: 04/18/20 14:00 Alprazolam (Alprazolam 0.5 Mg Tablet) 1 mg PO BID PRN PRN Reason: Anxiety Stop: 04/18/20 14:00 Ascorbic Acid (Ascorbic Acid 500 Mg Tab) 250 mg PO DAILY [facility]1983 Stop: 04/19/20 08:59 Last Admin: 03/22/20 09:08 Dose: 250 mg Documented by: Aspirin (Aspirin 81 Mg Ectab) 81 mg PO QAM [facility]1983 Stop: 04/19/20 08:59 Last Admin: 03/22/20 09:09 Dose: 81 mg Documented by: Atorvastatin Calcium (Atorvastatin 40 Mg Tab) 80 mg PO QPM [facility]1983 Stop: 04/18/20 20:59 Last Admin: 03/21/20 20:06 Dose: 80 mg Documented by: Bupropion HCl (Bupropion Sr 100 Mg Tabcr) 200 mg PO BIDM [facility]1983 Stop: 04/18/20 16:59 Last Admin: 03/22/20 09:08 Dose: 200 mg Documented by: Cyanocobalamin (Cyanocobalamin 500 Mcg Tablet (Vitamin B-12)) 1,000 mcg PO QAM [facility]1983 Stop: 04/19/20 08:59 Last Admin: 03/22/20 09:08 Dose: 1,000 mcg Documented by: Diclofenac Sodium (Diclofenac Sod 1% Gel 100 Gm Tube) 4 gm EXT QID PRN PRN Reason: Pain Stop: 04/18/20 14:00 Duloxetine HCl (Duloxetine Hcl 60 Mg Cap) 60 mg PO BID [facility]1983 Stop: 04/18/20 20:59 Last Admin: 03/22/20 09:49 Dose: 60 mg Documented by: Ferrous Sulfate (Ferrous Sulfate 325 Mg Tab) 325 mg PO QAM [facility] Stop: 04/19/20 08:59 Last Admin: 03/22/20 09:08 Dose: 325 mg Documented by: Fish Oil ([place]-3 (Purified Fish Oil) 1 Gm Cap) 1 gm PO QAM [facility] Stop: 04/19/20 08:59 Last Admin: 03/22/20 09:09 Dose: 1 gm Documented by: Folic Acid (Folic Acid 400 Mcg Tab) 800 mcg PO QAM [facility] Stop: 04/19/20 08:59 Last Admin: 03/22/20 09:09 Dose: 800 mcg Documented by: Gabapentin (Gabapentin 300 Mg Cap) 600 mg PO HS [facility]1983 Stop: 04/18/20 20:59 Last Admin: 03/21/20 20:05 Dose: 600 mg Documented by: Heparin Sodium (Porcine) (Heparin Sod 5,000 Unit/0.5 Ml Vial) 5,000 units SQ Q8 [facility]1983 Stop: 04/18/20 21:59 Last Admin: 03/22/20 05:47 Dose: Not Given Documented by: Lisinopril (Lisinopril 10 Mg Tab) 10 mg PO DAILY [facility]1983 Stop: 04/19/20 08:59 Last Admin: 03/22/20 09:10 Dose: Not Given Documented by: Loratadine (Loratadine 10 Mg Tab) 10 mg PO QAM [facility] Stop: 04/19/20 08:59 Last Admin: 03/22/20 09:08 Dose: 10 mg Documented by: Metoprolol Succinate (Metoprolol Succ 50mg Ext Rel Tab) 50 mg PO DAILY [facility] Stop: 04/19/20 08:59 Last Admin: 03/22/20 09:10 Dose: Not Given Documented by: Miconazole Nitrate (Miconazole Nitrate Powder 43 Gm) 1 appln EXT PRN PRN PRN Reason: Affected Skin Folds Stop: 04/18/20 14:05 Last Admin: 03/22/20 09:09 Dose: 1 appln Documented by: Nitroglycerin (Nitroglycerin Sl 0.4 Mg/Tab Tab) 0.4 mg SL UD PRN PRN Reason: Chest Pain Stop: 04/18/20 14:00 Ondansetron HCl (Ondansetron Inj 2 Mg/Ml 2 Ml Vial) 4 mg IV Q6H PRN PRN Reason: Nausea Stop: 04/18/20 14:03 Last Admin: 03/20/20 17:30 Dose: 4 mg Documented by: Oxycodone HCl (Oxycodone Hcl Ir 5 Mg Tab (Immediate Release)) 5 mg PO Q6H PRN PRN Reason: Pain Stop: 04/02/20 14:11 Last Admin: 03/21/20 21:04 Dose: 5 mg Documented by: Pantoprazole Sodium (Pantoprazole 40 Mg Tab) 40 mg PO DAILY [facility]; Protocol Stop: 04/19/20 08:59 Last Admin: 03/22/20 09:11 Dose: 40 mg Documented by: Polyethylene Glycol (Polyethylene (Miralax) 17 Gm Pack) 17 gm PO DAILY PRN PRN Reason: Constipation Stop: 04/18/20 13:13 Tamsulosin HCl (Tamsulosin Hcl 0.4 Mg Cap) 0.4 mg PO DAILY [facility]1983 Stop: 04/19/20 08:59 Last Admin: 03/22/20 09:08 Dose: 0.4 mg Documented by: Tizanidine HCl (Tizanidine Hcl 4 Mg Tablet) 4 mg PO Q6H PRN PRN Reason: Muscle Spasm Stop: 04/18/20 14:00 Vitamin D (Cholecalciferol 1,000 Units 25 Mcg Tab) [facility] Stop: 04/19/20 08:59 Last Admin: 03/22/20 09:08 Dose: 2,000 units Documented by: Mental Health & Subst Abuse Tx Psychiatrist Name of Psychiatrist: Dr. Dominguez- [facility] Psych[facility]rist's Date of Appointment with Psychiatrist: 04/13/20 Time of Appointment with Psychiatrist: 12:40pm Therapist Name of Therapist: None Canal Equipment Mechanic Name of Canal Equipment Mechanic: None Post Discharge Appointments Primary Care Physician Name Of Family Doctor: Dr Plascencia
--- NOTE | 2020-03-22 12:39 | Electrocardiogram Report ---
Test Reason : Blood Pressure : / mmHG Vent. Rate : 081 BPM Atrial Rate : 081 BPM P-R Int : 144 ms QRS Dur : 078 ms QT Int : 376 ms P-R-T Axes : 035 -08 035 degrees QTc Int : 436 ms Normal sinus rhythm Normal ECG When compared with ECG of 19-MAR-2020 07:13, No significant change was found Confirmed by Lm Payne ([id number]) on 03/22/2020 12:38:49 PM Referred By: REFERRED SELF Confirmed By:Lm Payne
[2020-03-22] MEDS: oxyCODONE HCL IR 5 MG TAB (IMMEDIATE RELEASE) PO PRN (20:29)
[2020-03-22] MEDS: GABAPENTIN 300 MG CAP PO SCH (20:29)
[2020-03-22] MEDS: ATORVASTATIN 40 MG TAB PO SCH (20:29)
[2020-03-23] MEDS: HEPARIN SOD 5,000 UNIT/0.5 ML VIAL SQ SCH ×2 (05:37→14:48)
[2020-03-23 07:49] LABS: BUN Creatinine Ratio 15.2 (10-20); Calcium 8.8 mg/dl (8.5-10.1); Creatinine Clr Calc Pharmacy 55.3 ml/min; Est GFR (African American) 44.3; Est GFR (Non-African American) 38.2; Potassium 4.3 mmol/L (3.5-5.1)
[2020-03-23] MEDS: CYANOCOBALAMIN 500 MCG TABLET (VITAMIN B-12) PO SCH (09:16)
[2020-03-23] MEDS: lisinopril 10 MG TAB PO SCH ×2 (09:16→11:49)
[2020-03-23] MEDS: FOLIC ACID 400 MCG TAB PO SCH (09:17)
[2020-03-23] MEDS: TAMSULOSIN HCL 0.4 MG CAP PO SCH (09:17)
[2020-03-23] MEDS: buPROPion SR 100 MG TABCR PO SCH ×2 (09:17→17:49)
[2020-03-23] MEDS: CHOLECALCIFEROL 1,000 UNITS 25 MCG TAB PO SCH (09:17)
[2020-03-23] MEDS: DULoxetine HCL 60 MG CAP PO SCH (09:17)
[2020-03-23] MEDS: FERROUS SULFATE 325 MG TAB PO SCH (09:18)
[2020-03-23] MEDS: LORATADINE 10 MG TAB PO SCH (09:19)
[2020-03-23] MEDS: ASCORBIC ACID 500 MG TAB PO SCH (09:19)
[2020-03-23] MEDS: PANTOprazole 40 MG TAB PO SCH (09:19)
[2020-03-23] MEDS: ASPIRIN 81 MG ECTAB PO SCH (09:19)
[2020-03-23] MEDS: METOPROLOL SUCC 50MG EXT REL TAB PO SCH ×2 (09:21→11:49)
[2020-03-23] MEDS: OMEGA-3 (PURIFIED FISH OIL) 1 GM CAP PO SCH (09:21)
[2020-03-23] MEDS: MICONAZOLE NITRATE POWDER 43 GM EXT PRN (09:39)
--- NOTE | 2020-03-23 10:30 | Psychiatric Progress Note ---
Date of Service March 23, 2020 Impression / Recommendations Impression RECOMMENDATIONS: 03/20 - Psychiatric consultation requested to evaluate patient for suicidal statements - patient reported concern regarding ability to care for self when informed she did not meet medical criteria for a hospital admission. Pt had then reported SI with thoughts to cut her wrists. - Pt is denying SI at this time, stating the thoughts resolved once she was admitted medically. Pt is going through some particularly stressful situations, but it does seem that suicidal statements were condition and verbalized in the setting of feeling as though her needs were not being met. Now that patient is noticing physical improvement, she states she feels safe to be discharged home "once I'm able to keep food down." - Pt's brother was contacted with recommendation to schedule a family meeting. Brother declined to participate, feeling it would not be beneficial. He did indicate that he would try to arrange for the patient's toilet concerns to be addressed - which will be helpful to mitigate a reported significant stressor for the patient. In the interim she appreciated the suggestion to line her toilet with trash bags and dispose of the material, rather than continuing to use chux pads as she has been. - Pt was able to verbalize aspects of a safety plan. She reports her dog and family are protective factors against harming self. She indicates that she fe els safe to return home. Pt states that she has another sister and a neighbor, both of whom she feels comfortable calling with any needs or any significant changes to her mental health or safety. Pt has consistently denied SI to several members of our psychiatric service throughout the day today. - As long as patient continues to deny suicidality, it seems that she could be discharged home when medically appropriate. 03/22 -Patient describing continued intermittent passive suicidal ideation but without intent, plan, or any acts of furtherance. She does remain at elevated risk for self-harm due to distant history of self-harm, depression, and medical illness. Protectively she appears to be help seeking and convincingly states that she does not have any imminent intent or plan for self-harm and she expresses hopefulness that she will medically improve and be able to follow-up with her outpatient psychiatrist following discharge. 03/23 - Pt continues to verbalize that she is "not doing too good" - with regard to her physical health and self-harm thoughts. Pt is very frustrated she is not permitted to see her mother (per hospital policy visiting is restricted during COVID-19 pandemic emergency, and both patient and mother are COVID positive). She is threatening to pull out her IV and refuse treatment if unable to see her mother - this behavior is consistent with previous observations of verbalizing threats in order to have her needs met. Continue 1:1 sitter. Agree with above statements, that it is likely patient's self-harm thoughts will improve as her physical condition improves. Our team will continue to offer support. - Pt encouraged to ask the room extension for her sister's hospital room, and visitor policy was reiterated. (1) Verbalizes suicidal thoughts: 03/20 - Pt admitted medically to our COVID unit due to reports of SI and inability to contract for safety. Continue to monitor for SI and offer safe/secure setting until appropriate discharge planning can be coordinated. Our service to call patient routinely to coordinate services. - Pt has denied SI to multiple psychiatry service staff over the course of the day, stating the thoughts resolved once she was admitted medically and knew her concerns would be address. - Pt able to verbalize aspects of safety plan and states from a mental health perspective she feels comfortable with returning home "once I'm able to keep food down." 03/22 -Due to continued passive suicidal statements intermittently and what appears to be fairly limited insight and some executive dysfunction which might increase risk for reactive type behavior, I would continue the sitter for now. We expect that with sufficient problem-solving regarding home environment stressors and evidence of improvement in physical health will help to significantly mitigate suicidality. 03/23 - When asked specifically about suicidal ideation, the patient states "I'm not doing too good", but did not answer questions regarding specific thoughts, plan, or intent. - Based on frustrations verbalized, it does not seem that patient would be able to contract for safety outside of the hospital setting. (2) Anxiety and depression: 03/20 - Continue current medication regimen. - Social work to call and confirm appointment with psychiatrist, Dr. Aguilera. - Pt reports improvement in mood now that her health concerns are being addressed 03/22 -Continue home dose psychotropics unchanged for now as it appears she has been on the Cymbalta and Wellbutrin combination for years -Today complaint of intermittent chest pain appears to be exacerbating anxiety 03/23 - Continue home psychotropic medication regimen (3) COVID-19: Protective Factors Assessment Employed: No Interval History Chief Complaint "I'm not doing so good." Review of Systems Notes Pt hung up phone before full ROS could be completed. She did not verbalize any specific physical concerns, but did states "I'm not doing to well physically." Telehealth Telehealth Telehealth Options: Telephone only For the duration of the visit, provider was performing the assessment from: The same facility as the patient After establishing a telemedicine visit, patient was: Patient/authorized rep acknowledged consent and understanding and Gave permission to continue telehealth session Subjective Subjective Patient's case was reviewed and discussed during morning report with psychiatric nurse liaison and supervising psychiatrist. Reports suggest the patient has verbalized intermittent passive SI throughout the weekend and continues to be focused on her physical health concerns. Telephone call placed to patient's room to assess psychiatric progress since admission. Pt reported "I'm not doing too good." She states she is worried today, as she found out last evening that "my mom stopped eating." She reported frustration that she is not permitted to see her mother and states "I tried to pull out my IV last night because I was upset." This provider attempted to offer verbal comfort to the patient, while also clearly reiterating the current hospital visitor policy. Pt states she has not talked to her sister recently, but believes she is still in the hospital as well. This provider suggested the patient call her sister to seek comfort or discuss any concerns about her mother. Pt continued to verbalize frustrations and perceived barriers to contacting her sister. When asked about the presence of suicidal ideation, the patient stated "Oh yeah, I'm not doing too good." Despite direct follow-up questions, the patient did not offer answers when asked about specific plan, means, or intent. Pt continues to focus on her frustrations about not being able to visit her mother. Frustration escalated and patient hung up on this provider. Physical Exam Psychiatric Orientation: alert, oriented x 3 and + guarded (uncooperative, verbalizing frustrations) Speech: normal rate/rhythm/volume of speech Mood: + depressed mood, + anxious mood (worried about her mother's health) and + irritable mood (expressing frustration about not being able to visit her mother) Thought Process: + concrete thought process Thought Content: + hopelessness and + loneliness Suicidal Thoughts: + reports suicidal thoughts but does not answer questions regarding the presence of plan or intent Cognition: attention grossly intact and language grossly intact Estimated Intelligence: + below average estimated intelligence Insight: + limited insight Judgement: + limited judgement Vital Signs (Past 24 Hours) Last Vital Signs Temp 36.4 C L 03/23/20 08:30 Pulse 85 03/23/20 08:30 Resp 20 03/23/20 08:30 BP 114/69 03/23/20 08:30 Pulse Ox 96 03/23/20 08:30 Unable to comment on visual aspects of examination, as assessment was completed via phone call to patient's room. Results & Data ([facility]) Laboratory Results Laboratory Results - last 24 hr 03/23/20 06:47 Sodium 137 Potassium 4.3 Chloride 105 Carbon Dioxide 28 Anion Gap 4.0 BUN 22 H Creatinine 1.46 H Est Cr Clr Drug Dosing 55.3 Est GFR ( Amer) 44.3 Est GFR (Non-Af Amer) 38.2 BUN/Creatinine Ratio 15.2 Glucose 92 Calcium 8.8 Current Inpatient Medications Current Inpatient Medications: Current Inpatient Medications Acetaminophen (Acetaminophen 325 Mg Tab) 650 mg PO Q4H PRN PRN Reason: pain/fever Stop: 04/18/20 13:13 Last Admin: 03/20/20 06:07 Dose: 650 mg Documented by: Albuterol (Albuterol Hfa 8 Gm Inhaler) 2 puffs INH QID PRN; Protocol PRN Reason: Shortness Of Breath Or Wheezing Stop: 04/18/20 14:00 Alprazolam (Alprazolam 0.5 Mg Tablet) 1 mg PO BID PRN PRN Reason: Anxiety Stop: 04/18/20 14:00 Last Admin: 03/23/20 02:27 Dose: 1 mg Documented by: Ascorbic Acid (Ascorbic Acid 500 Mg Tab) 250 mg PO DAILY [facility] Stop: 04/19/20 08:59 Last Admin: 03/23/20 09:19 Dose: 250 mg Documented by: Aspirin (Aspirin 81 Mg Ectab) 81 mg PO QAM [facility] Stop: 04/19/20 08:59 Last Admin: 03/23/20 09:19 Dose: 81 mg Documented by: Atorvastatin Calcium (Atorvastatin 40 Mg Tab) 80 mg PO QPM [facility] Stop: 04/18/20 20:59 Last Admin: 03/22/20 20:29 Dose: 80 mg Documented by: Bupropion HCl (Bupropion Sr 100 Mg Tabcr) 200 mg PO BIDM [facility] Stop: 04/18/20 16:59 Last Admin: 03/23/20 09:17 Dose: 200 mg Documented by: Cyanocobalamin (Cyanocobalamin 500 Mcg Tablet (Vitamin B-12)) 1,000 mcg PO QAM [facility] Stop: 04/19/20 08:59 Last Admin: 03/23/20 09:16 Dose: 1,000 mcg Documented by: Diclofenac Sodium (Diclofenac Sod 1% Gel 100 Gm Tube) 4 gm EXT QID PRN PRN Reason: Pain Stop: 04/18/20 14:00 Duloxetine HCl (Duloxetine Hcl 60 Mg Cap) 60 mg PO BID [facility] Stop: 04/18/20 20:59 Last Admin: 03/23/20 09:17 Dose: 60 mg Documented by: Ferrous Sulfate (Ferrous Sulfate 325 Mg Tab) 325 mg PO QAM [facility] Stop: 04/19/20 08:59 Last Admin: 03/23/20 09:18 Dose: 325 mg Documented by: Fish Oil ([place]-3 (Purified Fish Oil) 1 Gm Cap) 1 gm PO QAM [facility] Stop: 04/19/20 08:59 Last Admin: 03/23/20 09:21 Dose: 1 gm Documented by: Folic Acid (Folic Acid 400 Mcg Tab) 800 mcg PO QAM [facility] Stop: 04/19/20 08:59 Last Admin: 03/23/20 09:17 Dose: 800 mcg Documented by: Gabapentin (Gabapentin 300 Mg Cap) 600 mg PO HS [facility] Stop: 04/18/20 20:59 Last Admin: 03/22/20 20:29 Dose: 600 mg Documented by: Heparin Sodium (Porcine) (Heparin Sod 5,000 Unit/0.5 Ml Vial) 5,000 units SQ Q8 [facility]GG[facility] Stop: 04/18/20 21:59 Last Admin: 03/23/20 05:37 Dose: Not Given Documented by: Lisinopril (Lisinopril 10 Mg Tab) 10 mg PO DAILY [facility] Stop: 04/19/20 08:59 Last Admin: 03/22/20 09:10 Dose: Not Given Documented by: Loratadine (Loratadine 10 Mg Tab) 10 mg PO QAM [facility] Stop: 04/19/20 08:59 Last Admin: 03/23/20 09:19 Dose: 10 mg Documented by: Metoprolol Succinate (Metoprolol Succ 50mg Ext Rel Tab) 50 mg PO DAILY [facility] Stop: 04/19/20 08:59 Last Admin: 03/22/20 09:10 Dose: Not Given Documented by: Miconazole Nitrate (Miconazole Nitrate Powder 43 Gm) 1 appln EXT PRN PRN PRN Reason: Affected Skin Folds Stop: 04/18/20 14:05 Last Admin: 03/23/20 09:39 Dose: 1 appln Documented by: Nitroglycerin (Nitroglycerin Sl 0.4 Mg/Tab Tab) 0.4 mg SL UD PRN PRN Reason: Chest Pain Stop: 04/18/20 14:00 Last Admin: 03/22/20 22:44 Dose: 0.4 mg Documented by: Ondansetron HCl (Ondansetron Inj 2 Mg/Ml 2 Ml Vial) 4 mg IV Q6H PRN PRN Reason: Nausea Stop: 04/18/20 14:03 Last Admin: 03/20/20 17:30 Dose: 4 mg Documented by: Oxycodone HCl (Oxycodone Hcl Ir 5 Mg Tab (Immediate Release)) 5 mg PO Q6H PRN PRN Reason: Pain Stop: 04/02/20 14:11 Last Admin: 03/22/20 20:29 Dose: 5 mg Documented by: Pantoprazole Sodium (Pantoprazole 40 Mg Tab) 40 mg PO DAILY [facility]; Protocol Stop: 04/19/20 08:59 Last Admin: 03/23/20 09:19 Dose: 40 mg Documented by: Polyethylene Glycol (Polyethylene (Miralax) 17 Gm Pack) 17 gm PO DAILY PRN PRN Reason: Constipation Stop: 04/18/20 13:13 Tamsulosin HCl (Tamsulosin Hcl 0.4 Mg Cap) 0.4 mg PO DAILY [facility] Stop: 04/19/20 08:59 Last Admin: 03/23/20 09:17 Dose: 0.4 mg Documented by: Tizanidine HCl (Tizanidine Hcl 4 Mg Tablet) 4 mg PO Q6H PRN PRN Reason: Muscle Spasm Stop: 04/18/20 14:00 Vitamin D (Cholecalciferol 1,000 Units 25 Mcg Tab) 2,000 units PO QAM [facility] Stop: 04/19/20 08:59 Last Admin: 03/23/20 09:17 Dose: 2,000 units Documented by: Mental Health & Subst Abuse Tx Psychiatrist Name of Psychiatrist: Dr. Dominguez- [facility] Psychiatrist's Date of Appointment with Psychiatrist: 04/13/20 Time of Appointment with Psychiatrist: 12:40pm Therapist Name of Therapist: None Mark Up Designer Name of Mark Up Designer: None Post Discharge Appointments Primary Care Physician Name Of Family Doctor: Dr Plascencia
--- NOTE | 2020-03-23 12:11 | Hospitalist Progress Note ---
Date of Service March 23, 2020 Assessment & Plan (1) COVID-19: (2) Suicidal ideation: (3) Anxiety and depression: (4) Back pain: (5) Stage 3 chronic kidney disease: (6) CAD (coronary artery disease): (7) Hypertension: (8) Nocturia: Radha 64 yo F with a PMH of CKD III, moderate aortic stenosis, chronic back pain on opioids, HTN, anxiety and depression who presented with generalized weakness and worsening diarrhea since her diagnosis of COVID-19 on February 13. Generalized weakness/diarrhea Recent diagnosis of COVID-19 03/16 Possible urinary tract infection Depressed/suicidal Mild hyponatremia History of anxiety/depression History of CKD stage III History of coronary artery disease History of hypertension Covid Patient was initially diagnosed in March 16. Her mother and sister also admitted in the hospital for COVID-19. Her primary complaint was diarrhea and feeling nauseous on admission. Chest x-ray with bilateral hazy opacities. Patient remains afebrile. White count is within normal limit. Patient is on r oom air. Will continue with conservative management for now. Zofran as needed for nausea. Continue with heart healthy diet. Diarrhea is resolved. C. Diff is negative. Abdominal/pelvis CT was obtained on 03/21 without any acute findings. Suicidal ideation Anxiety, depression Patient presented with suicidal ideation. Have been facing issues with her brother and her mother and sister being in the hospital feels depressed. Today patient is more tearful and depressed because she cannot go see her mother. I spoke with the nursing staff and the clinical supervisor soldering, I was told that it cannot be arranged for her to go see her mother given Covid and suicidal precautions. RN is making arrangements to have a Zoom meeting with her mother. Chest pain Patient reports for the past 6 months she has been experiencing intermittent episodes of chest pain. EKG was obtained which was nonischemic. Troponin is not concerning. Stress test is pending. UTI ruled out CKD III Kidney function at baseline. Continue to monitor with daily BMP Back pain Chronic with ambulatory dysfunction Continue to work with PT/OT. CAD Stable, no reports of chest pain. Continue aspirin, metoprolol with hold parameters Nocturia Recently seen by urology. Continue tamsulosin. Bladder scan PRN DVT Ppx: SQ heparin Code status: FULL PCP: Temo Admission and Anticipated Discharge Date Admission Date: March 19, 2020 Subjective Patient is very tearful this morning. Requesting to see her mother who is also here with Covid refusing to eat anything today. Refusing cardiac stress test. Answered limited review of system questions. Denies any chest pain or shortness of breath. Does report lower abdominal pain. Denies any nausea or vomiting. Denies any cough. Continues to have one-to-one sitter. Review of Systems Review of Systems: All systems reviewed & are unremarkable except as noted in HPI & below Physical Exam Physical Exam: General: A&Ox3. Obese female, tearful and depressed HENT: NCAT, MMM, EOMI Eyes: PERRLA Neck: Supple, normal range of motion CVS: normal rate and rhythm Resp: b/l decreased breath sound secondary to body habitus Abdomen: Soft, ND/NT, +BS Extremities: No c/c/e Neuro: face symmetric, strength grossly equal, no focal deficit Skin: warm and dry MSK: normal ROM, no joint swelling/erythema Results & Data Results & Data ([facility]) Vital Signs (Past 12 Hours) Vital Signs Temp Pulse Resp BP Pulse Ox 03/23/20 11:48 36.6 C 82 16 139/72 03/23/20 08:30 36.4 C L 85 20 114/69 96 (1) Back pain Back pain laterality: left Back pain location: low back pain Chronicity: chronic Sciatica presence: without sciatica Qualified Code(s): M54.5 - Low back pain; G89.29 - Other chronic pain (2) Stage 3 chronic kidney disease Chronic kidney disease stage 3 subtype: unspecified whether 3a or 3b Qualified Code(s): N18.30 - Chronic kidney disease, stage 3 unspecified
--- NOTE | 2020-03-30 01:39 | Discharge Summary ---
Date of Service March 30, 2020 Admission HPI Per Admitting Provider This is a 64 yo F with a PMH of CKD III, moderate aortic stenosis, chronic back pain on opioids, HTN, anxiety and depression who presents with worsening covid symptoms. Was seen last week in [facility] on 03/16 for viral symptoms and covid exposure from mom and sister. Was found to have positive covid send out test. Was treated with conservative measures and sent home with pulse oximeter. Over the past few days, patient has felt increasingly weak and fatigued. Has had intermittent fever with tmax of 100.6 F. Continued headache, nausea and watery diarrhea. Poor appetite. Denies chest pain or shortness of breath. Has been checking oxygen saturation with home pulse ox and lowest number seen is 90%. Was seen by ED provider today and due to stable oxygen level was felt to be appropriate for discharge home with supportive care. Patient mentioned suicidal ideation at this time with plan to "slit my wrists". When discussing mood further, patient endorses feeling more depressed over the past week. Has not taken any medication in over 1 week due to feeling too poorly. One to one monitoring, suicide checks and psychiatric consult ordered. Will be admitted to covid unit. Admission Exam Per Admitting Provider General: A&Ox3. Obese female HENT: NCAT, MMM, EOMI Eyes: PERRLA Neck: Supple, normal range of motion CVS: normal rate and rhythm Resp: b/l decreased breath sound secondary to body habitus Abdomen: Soft, ND/NT, +BS Extremities: No c/c/e Neuro: face symmetric, strength grossly equal, no focal deficit Skin: warm and dry MSK: normal ROM, no joint swelling/erythema Principal Diagnosis Recent diagnosis of COVID-19 03/16 Possible urinary tract infection Depressed/suicidal Mild hyponatremia History of anxiety/depression History of CKD stage III History of coronary artery disease History of hypertension Discharge Exam General: A&Ox3. Obese female, tearful and depressed HENT: NCAT, MMM, EOMI Eyes: PERRLA Neck: Supple, normal range of motion CVS: normal rate and rhythm Resp: b/l decreased breath sound secondary to body habitus Abdomen: Soft, ND/NT, +BS Extremities: No c/c/e Neuro: face symmetric, strength grossly equal, no focal deficit Skin: warm and dry MSK: normal ROM, no joint swelling/erythema Discharge Data Allergies Allergy/AdvReac Type Severity Reaction Status Date / Time egg AdvReac Intermediate GI upset Verified 03/19/20 06:46 ibuprofen AdvReac Mild stomach Verified 03/19/20 06:46 irritation Consultations 03/19/20 12:04 ED Decision to Admit Stat 03/19/20 13:14 Consult Case Management - Discharge Planning Routine Consult Psychiatry Routine Ordered Studies 03/21/20 10:55 CT abd pelvis oral and IV con Urgent Hospital Course (1) COVID-19: (2) Suicidal ideation: (3) Anxiety and depression: (4) Back pain: (5) Stage 3 chronic kidney disease: (6) CAD (coronary artery disease): (7) Hypertension: (8) Nocturia: Radha 64 yo F with a PMH of CKD III, moderate aortic stenosis, chronic back pain on opioids, HTN, anxiety and depression who presented with generalized weakness and worsening diarrhea since her diagnosis of COVID-19 on February 13. Generalized weakness/diarrhea Recent diagnosis of COVID-19 03/16 Depressed/suicidal Mild hyponatremia History of anxiety/depression History of CKD stage III History of coronary artery disease History of hypertension Covid Patient was initially diagnosed in March 16. Her mother and sister also admitted in the hospital for COVID-19. Her primary complaint was diarrhea and feeling nauseous on admission. Chest x-ray with bilateral hazy opacities. Patient remains afebrile. White count is within normal limit. Patient is on room air. Zofran as needed for nausea. Continue with heart healthy diet. Diarrhea is resolved. C. Diff was negative. Abdominal/pelvis CT was obtained on 03/21 without any acute findings. On the day of discharge patient was stable. She was on room air. Continue with quarantine for 10-14 days. Suicidal ideation Anxiety, depression Patient presented with suicidal ideation. Have been facing issues with her brother and her mother and sister being in the hospital feels depressed. patient was evaluated by Psychiatry Service. They cleared her for discharge from psychiatric perspective as long is medically stable. Patient was discharged in stable condition. On the day of discharge patient denies any suicidal thoughts or any intent. Chest pain Patient reports for the past 6 months she has been experiencing intermittent episodes of chest pain. EKG was obtained which was nonischemic. Troponin is not concerning. Stress test was ordered however due to COVID-19 status patient could not get the stress test. Would recommend to have patient follow-up with Cardiology as an outpatient and have stress test done. UTI ruled out CKD III Kidney function at baseline. Continue to monitor with daily BMP Back pain Chronic with ambulatory dysfunction Continue to work with PT/OT. CAD Stable, no reports of chest pain. Continue aspirin, metoprolol with hold parameters Nocturia Recently seen by urology. Continue tamsulosin. Bladder scan PRN Total Time Total Time Spent Total Time Spent (In Minutes): 35 Discharge Plan Discharge Items Patient Disposition: Home - Self-Care Reason For Visit: SUICIDAL IDEATION,COVID,UTI Discharge Diagnosis: COVID 19 Condition on Discharge: Good Activity: Resume your previous activity Non-emergency contact: Primary Care Provider Call non-emergency contact if: your symptoms worsen Follow-up/Referrals: Nikunj Plascencia MD [Primary Care Provider] - (Date & Time 03/27/2020 11:40 AM Provider Nikunj Plascencia MD Department [facility] PLEASE NOTE THAT THIS IS A TELEVIDEO APPOINTMENT. PLEASE FOLLOW THE INSTRUCTIONS PROVIDED IN YOUR EMAIL. IF YOU HAVE ANY QUESTIONS, OR NEED TO CHANGE TO A TELEPHONE ONLY APPOINTMENT, PLEASE CALL ) Diet: Heart Healthy Addtl Attending Provider Instructions: Follow-up with your primary care physician. An appointment has been requested. Follow-up with your scheduled psychiatric appointment. You will need to see a placement interviewer as an outpatient. An appointment has been requested. Your test for COVID-19 came back as positive, which means you are infected with the novel coronavirus. We need to continue the following important precautions: Quarantine yourself in your home until: you have had no fever for at least 24 hours (that is 1 full day of no fever without the use of medicine that reduces fevers) AND other symptoms have improved (for example, when your cough or shortness of breath have improved) AND at least 10 days have passed since your symptoms first appeared. If you live with others, isolate yourself to a single room away from them and avoid any contact during the quarantine time. Wash your hands frequently and cover your cough. Treat your symptoms with [id number] medications, such as Tylenol. If you develop new symptoms or your symptoms are worsening, call your physician for advice. If your symptoms become severe, go to the nearest ER. If you are alone and/or in distress, call 911. Pending Studies at Discharge: No Stand-Alone Forms: My [facility], Smoking Cessation Medications and DC Order Prescriptions: New nystatin 100,000 unit/gram powder 1 applic topical BID Qty: 15 RF: 0 Continued tamsulosin 0.4 mg capsule 0.4 mg PO DAILY Qty: 30 RF: 2 diclofenac sodium [Voltaren] 1 % gel 4 g topical QID PRN (Reason: Pain) RF: 0 atorvastatin 80 mg tablet 80 mg PO QPM RF: 0 aspirin [Aspirin Low Dose] 81 mg Tablet,Delayed Release (Dr/Ec) 81 mg PO QAM RF: 0 ferrous sulfate 325 mg (65 mg iron) Tablet 325 mg PO QAM RF: 0 cyanocobalamin (vitamin B-12) [Vitamin B-12] 1,000 mcg Tablet 1,000 mcg PO QAM RF: 0 gabapentin [Neurontin] 300 mg Capsule 600 mg PO HS RF: 0 loratadine 10 mg Tablet 10 mg PO QAM RF: 0 folic acid 800 mcg Tablet 0.8 mg PO QAM RF: 0 bupropion HCl [Wellbutrin SR] 200 mg Tablet Sustained-Release 12 Hr 200 mg PO BIDM RF: 0 cholecalciferol (vitamin D3) [Vitamin D3] 1,000 unit Tablet 2,000 unit PO QAM RF: 0 Meyers Chuck 3-6-9 1,200 mg Capsule 1 cap PO QAM RF: 0 Fiber Gummies 2 gram Tablet,Chewable 2 g PO BID RF: 0 docusate sodium [Colace] 100 mg capsule 100 mg PO BID RF: 0 alprazolam 1 mg tablet 1 mg PO BID PRN (Reason: Anxiety) RF: 0 tizanidine 4 mg tablet 4 mg PO Q6H PRN (Reason: Muscle Spasm) RF: 0 ascorbic acid (vitamin C) 250 mg Tablet 250 mg PO DAILY RF: 0 inulin 2 gram Tablet,Chewable 2 g PO BID RF: 0 sennosides [Senokot] 8.6 mg tablet 8.6 mg PO HS PRN (Reason: Constipation) RF: 0 oxycodone 5 mg tablet 5 mg PO Q6 PRN (Reason: pain) RF: 0 nitroglycerin 0.4 mg Tablet, Sublingual 0.4 mg sublingual UD PRN (Reason: Chest Pain) RF: 0 polyethylene glycol 3350 [Miralax] 17 gram Powder In Packet 17 g PO DAILY PRN (Reason: constipation) Qty: 30 RF: 0 duloxetine [Cymbalta] 60 mg capsule,delayed release(DR/EC) 60 mg PO BID RF: 0 albuterol sulfate 90 mcg/actuation HFA aerosol inhaler 2 puff INHALATION QID PRN (Reason: Shortness Of Breath Or Wheezing) RF: 0 lisinopril 10 mg tablet 10 mg PO DAILY RF: 0 metoprolol succinate 50 mg tablet extended release 24 hr 50 mg PO DAILY RF: 0 omeprazole 40 mg capsule,delayed release(DR/EC) 40 mg PO DAILY RF: 0 ondansetron 4 mg tablet,disintegrating 4 mg PO Q6H PRN (Reason: nausea and vomiting) Qty: 15 RF: 0 Discharge Orders: Discharge Order (Routine); Ordered 03/23/20 Ordered By: Sg Chino Admission Data Admit Date/Time: 03/19/20 11:53 Attending Provider: Sg Chino Admit Provider: Sg Chino Primary Care Provider: Nikunj Plascencia Other Providers: Sg Chino ; Maia Arce Other Interventions: Discharge Summary Assessment (RN) Last Done: 03/23/20 16:32 PSY 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
--- NOTE | 2020-04-06 08:57 | Coding Query ---
CODING QUERY To promote full compliance with coding requirements relating to patient care, provider participation is requested in all cases of hospital cleaner uncertainty. Please assist us with the question(s) below: Coding Question(s): 1. There is documentation of COVID-19 and documentation of, "recent diagnosis of COVID-19 03/16", and the H&P documents, "Covid Covid positive test on 03/16. Ongoing intermittent fever, nausea, diarrhea. No CP or SOB. O2 saturation 93% Slight progression of the diffuse interstitial thickening and patchy hazy bilateral airspace opacities. This is concerning for a viral pneumonia. Admitted to med/surg covid floor. Conservative management". The there is documentation in the Progress Notes, as on Progress Note 03/20/20 of, "Covid Patient was initially diagnosed in March 16. Her mother and sister also admitted in the hospital for COVID-19. Her primary complaint was diarrhea and feeling nauseous. Chest x-ray with bilateral hazy opacities. However patient is afebrile. White count is within normal limit. Patient is on room air. Will continue with conservative management for now. Zofran as needed for nausea. Continue with heart healthy diet.", Please specify below, regarding COVID-19. ( ) COVID-19 was treated/monitored during this admission. Please Specify below all symptoms or diagnosis that are due to COVID-19: ( ) Nausea ( ) Diarrhea ( ) Viral Pneumonia ( ) Fever ( ) Weakness ( ) Other: Please Specify ( ) NO COVID-19 was treated during this admission. History only of COVID-19. ( ) Other: Please Specify 2. There is documentation in the record of possible urinary tract infection as on Discharge Summary in the Principal Diagnosis area but there is conflicting documentation in the body of the Discharge Summary of, "UTI ruled out", that was documented beginning with Progress Note 03/20/20 through the Discharge Summary. Please clarify below, in your clinical opinion, due to the conflicting documentation. ( ) UTI Ruled-Out ( ) Possible UTI was treated during this admission ( ) Other: Please Specify Physician's Response(s): Thank you Clover Mcghee Principal Diagnosis: "that condition established after study, to be chiefly responsible for occasioning the admission of the patient to the hospital for care." Co-Existing Principal Diagnosis: "when two or more diagnoses equally meet the criteria for principal diagnosis as determined by the circumstances of admission, diagnostic work up, and/or therapy provided, and the Alphabetic Index, Tabular List, or another coding guideline does not provide sequencing direction, any one of the diagnoses may be sequenced first." "When the physician has documented what appears to be a current diagnosis in the body of the record, but has not included the diagnosis in the final diagnostic statement, the physician should be asked whether the diagnosis should be added." (Source Coding [facility] 2 QTR90. p3-4) TINA
== END 2020-03-23 18:46 | disposition home or self-care (01) | DRG 178 ==
LOC: ED 06:40 → 2W 11:53

== ENCOUNTER 2021-08-28 11:44 | Observation (INO) ==
[2021-08-28] MEDS ORDERED: NITROGLYCERIN 2% OINTMENT 30GM TUBE EXT STA (11:56)
[2021-08-28] MEDS ORDERED: ACETAMINOPHEN 1,000 MG/100 ML VIAL IV STA (11:59)
[2021-08-28] MEDS ORDERED: SODIUM CHLORIDE 0.9% 1000ML 1,000 ML IV SCH (12:00)
[2021-08-28 12:04] LABS: Basophils # (auto) 0.06 K/uL (0-0.2); Basophils % (auto) 0.9 %; Eosinophils # (auto) 0.11 K/uL (0-0.50); Eosinophils % (auto) 1.7 %; Hematocrit (blood only) 41.2 % (34.1-44.9); Hemoglobin 12.9 g/dl (12.0-16.0); Immature Granulocytes # (auto) 0.03 K/uL (0.00-0.02); Immature Granulocytes % (auto) 0.5 %; Lymphocytes # (auto) 1.62 K/uL (1.2-3.4); Lymphocytes % (auto) 25.5 %; Mean Corpuscular Hemoglobin 30.2 pg (25.0-34.0); Mean Corpuscular Hgb Conc 31.3 g/dL (32.0-36.0); Mean Corpuscular Volume 96.5 fL (80.0-100.0); Mean Platelet Volume 10.3 fL (9.4-12.3); Monocytes % (auto) 7.9 %; Neutrophils # (auto) 4.03 K/uL (1.4-6.5); Neutrophils % (auto) 63.5 %; Platelet Count 177 K/uL (130-400); RDW Coefficient of Variation 12.5 % (11.5-14.5); RDW Standard Deviation 43.9 fL (36.4-46.3); Red Blood Count 4.27 M/uL (3.93-5.22); White Blood Count 6.35 K/ul (4.8-10.8)
--- NOTE | 2021-08-28 12:10 | Emergency Department Note ---
History of Present Illness General Chief complaint: Chest Pain Stated complaint: CHEST PAIN Time Seen by Provider: 08/28/21 11:46 Source: patient Mode of arrival: EMS Limitations: no limitations History of Present Illness Provider complaint: Chest pain Maximum Pain Intensity: 6 This is a 66-year-old female presents emergency department complaining of chest pain which began this morning around 930 while she was seated at home. Patient states when she first awoke earlier she felt well and in her usual state of health, she had no accompanying pain or other concerning symptoms. She states when the pain started it was sharp, in the left central chest and radiated down the left upper extremity. She denies any pain into the neck or back. She denies any coming nausea, shortness of breath. She states she did have some slight dizziness. Patient denies any recent change in medications. Patient states she does follow with cardiology as she has a history of atrial fibrillation and is anticoagulated. EMS reported she was in normal sinus rhythm for them throughout. Patient denies any fevers, chills, or URI symptoms. She denies any recent leg swelling or calf tenderness. Patient states she does have chronic back pain and recently obtained a medical marijuana card. Patient given ASA and nitro x 2 by EMS with some improvement. Pt seen during a time of high acuity and national emergency pandemic while wearing PPE. Home Medications Medication Instructions Recorded Confirmed Type atorvastatin 80 mg tablet 80 mg PO QPM 06/16/18 08/28/21 History cholecalciferol (vitamin D3) 25 2,000 unit PO QAM 06/16/18 08/28/21 History mcg (1,000 unit) tablet (Vitamin D3) cyanocobalamin (vitamin B-12) 1,000 mcg PO QAM 06/16/18 08/28/21 History 1,000 mcg tablet (Vitamin B-12) fish, borage, flaxseed oils-omega 1 cap PO QAM 06/16/18 08/28/21 History 3,6,9 comb no.1 1,200 mg capsule (Lavallette 3-6-9) folic acid 800 mcg tablet 0.8 mg PO QAM 06/16/18 08/28/21 History gabapentin 300 mg capsule 600 mg PO AMHS 06/16/18 08/28/21 History (Neurontin) loratadine 10 mg tablet 10 mg PO QAM 06/16/18 08/28/21 History ascorbic acid (vitamin C) 250 mg 250 mg PO QAM 12/13/19 08/28/21 History tablet docusate sodium 100 mg capsule 100 mg PO BID 12/13/19 08/28/21 History (Colace) tizanidine 4 mg tablet 4 mg PO Q6H PRN 12/13/19 08/28/21 History nitroglycerin 0.4 mg sublingual 0.4 mg SUBLINGUAL UD PRN 12/14/19 08/28/21 History tablet albuterol sulfate 90 mcg/actuation 2 puff INHALATION QID PRN 03/16/20 08/28/21 History aerosol inhaler duloxetine 60 mg capsule,delayed 60 mg PO BID 03/16/20 08/28/21 History release (Cymbalta) lisinopril 10 mg tablet 10 mg PO HS 03/16/20 08/28/21 History metoprolol succinate 50 mg 25 mg PO BID 03/16/20 08/28/21 History tablet,extended release 24 hr omeprazole 40 mg capsule,delayed 40 mg PO QAM 03/16/20 08/28/21 History release ondansetron 4 mg disintegrating 4 mg PO Q6H PRN #15 tab 03/16/20 08/28/21 Rx tablet apixaban 5 mg tablet (Eliquis) 5 mg PO BID 03/12/21 08/28/21 History dicyclomine 10 mg capsule 10 mg PO BID 03/19/21 08/28/21 History famotidine 20 mg tablet (Pepcid) 20 mg PO QAM 03/19/21 08/28/21 History mirabegron 25 mg tablet,extended 25 mg PO QAM 03/19/21 08/28/21 History release 24 hr (Myrbetriq) buspirone 10 mg tablet 20 mg PO BID 06/23/21 08/28/21 History doxycycline monohydrate 100 mg 100 mg PO Q OTHER DAY 08/28/21 08/28/21 History capsule oxycodone 5 mg capsule 10 - 15 mg PO Q4 PRN 08/28/21 08/28/21 History sumatriptan succinate 25 mg tablet 50 mg PO DIRECTED PRN 08/28/21 08/28/21 History trazodone 100 mg tablet 300 mg PO 08/28/21 08/28/21 History Allergies Allergy/AdvReac Type Severity Reaction Status Date / Time egg AdvReac Intermediate GI upset Verified 08/28/21 15:16 ibuprofen AdvReac Mild stomach Verified 08/28/21 15:16 irritation morphine AdvReac LEGS SWELL Verified 08/28/21 15:17 Past Med/Surg History Medical History A-fib "i think i have a-fib." -- on eliquis -- follows with Dr. Torres Anemia Anxiety and depression Aortic stenosis Mild (per cardiology review) aortic stenosis with possible bicuspid aortic valve (MG 19mmhg, NIKKIE 3.0) per 05/2018 ECHO Atrial flutter, paroxysmal Back pain Borderline diabetes mellitus Bullous pemphigoid CAD (coronary artery disease) non-obstructive Cardiac murmur Carotid artery stenosis "mild" Chronic back pain Chronic low back pain COVID-19 GERD (gastroesophageal reflux disease) controlled High cholesterol History of COVID-19 02/2020; generalized weakness, diarrhea, sob, fever, body aches; hospitalized x 1 week; c/o ongoing brain fog since having covid History of skin cancer History of TIA (transient ischemic attack) 2017 Hx of falling last fall 09/2018- per patient, related to LBP/balance issues- ? r/t ambulatory dysfunction- improved with cane/walker use Hypertension IBS (irritable bowel syndrome) Morbid obesity BMI 50.5 Osteoporosis Renal failure Sacroiliitis Stage 3 chronic kidney disease Surgical History History of appendectomy History of back surgery History of cardiac cath 2017= NO STENTS History of kyphoplasty History of right cataract extraction History of right knee joint replacement Hx of laparoscopy S/P epidural steroid injection Family History Father Stroke Slow to wake up after anesthesia Myocardial infarction, Onset Age: 40 Mother Stroke Myocardial infarction, Onset Age: 60 Sister Myocardial infarction, Onset Age: 60 Social History Smoking Status: Former smoker Tobacco Type: Cigarettes Second Hand Exposure: No; Hx Alcohol Use: No Hx Substance Use: Yes (Medical marijuana) Prescribed Medications: Marijuana Preferred Language: [place] Communication Ability: Effective Visual Impairment: No Limitations Hearing Ability: Normal Safety Representative Required: No marital status: Single Current Living Situation: Parent Current Living Situation Comment: lives with mother and sister current occupational status: unemployed and disabled Feels Safe at Home: Yes Assistive Devices: Glasses Review of Systems A total of 10 systems reviewed and were otherwise negative All systems reviewed & are unremarkable except as noted in HPI & below Physical Exam Vital Signs Vital Signs - 24 hr 08/28/21 11:59 Temperature 36.5 C Temperature Source Oral Pulse Rate 80 Pulse Rate [Apical] 80 Respiratory Rate 20 Respiratory Effort / Characteristics Non-Labored Respiratory Depth Normal Blood Pressure 146/80 H Blood Pressure [Right Arm] 146/80 H Blood Pressure Mean 102 Blood Pressure Mean [Right Arm] 102 Pulse Oximetry 96 Oxygen Delivery Method Room Air Sepsis Recent Fever Within 48 Hours No Sepsis New/Unexplained Change in Mental Status No Sepsis Action Taken by Nursing No Action Required GENERAL: alert, well appearing, well nourished, no distress, non-toxic, BMI>27 EYE EXAM: normal conjunctiva, PERRL and EOM's grossly intact OROPHARYNX: no exudate, no erythema, lips, buccal mucosa, and tongue normal and mucous membranes are moist NECK: supple, no nuchal rigidity, no adenopathy, non-tender LUNGS: Clear to auscultation. Normal chest wall mechanics, no w/r/r HEART: no murmurs, S1 normal and S2 normal ABDOMEN: abdomen soft, non-tender, normo-active bowel sounds, no masses, no rebound or guarding. BACK: Back is symmetrical on inspection and there is no deformity, no midline tenderness, no CVA tenderness. SKIN: no rashes and no bruising UPPER EXTREMITIES: upper extremities are grossly normal. FROM, nml pulses b/l. No reproducible left upper extremity pain with palpation. LOWER EXTREMITIES: No pitting edema. FROM, nml pulses b/l. Well-healed vertica l incision noted overlying right knee consistent with prior surgery. NEURO EXAM: Normal sensorium, cranial nerves II-XII grossly intact, normal speech, no gross weakness of arms, no gross weakness of legs. Gross sensation intact. Course Course 1305: States pain is improved but still not resolved. Discussed all results. Administered Medications Sodium Chloride (Nss 1000ml) 1,000 mls @ 65 mls/hr IV .[id number] PEGGY Stop: 08/29/21 01:08 Last Admin: 08/28/21 12:07 Dose: 125 mls/hr Documented by: [id number] Oxycodone/Acetaminophen (Oxycodone/Acetaminophen 5mg/325mg Tab) 1 tab PO Q6H PRN PRN Reason: Severe Pain Stop: 09/11/21 14:26 Last Admin: 08/28/21 16:39 Dose: 1 tab Documented by: [id number] Discontinued Medications Acetaminophen (Ofirmev) 1,000 mg in 100 mls @ 400 mls/hr IV NOW STA Stop: 08/28/21 12:13 Last Infusion: 08/28/21 12:35 Dose: 0 mls/hr Documented by: [id number] Admin: 08/28/21 12:09 Dose: 400 mls/hr Documented by: [id number] Famotidine (Pepcid 20mg Iv Push) 20 mg in 5 mls @ 2.5 mls/min IV NOW STA Stop: 08/28/21 13:12 Last Admin: 08/28/21 13:33 Dose: 2.5 mls/min Documented by: [id number] Metoprolol Tartrate (Metoprolol Tartrate 25 Mg Tab) 25 mg PO ONE ONE Stop: 08/28/21 16:46 Last Admin: 08/28/21 16:57 Dose: 25 mg Documented by: [id number] Nitroglycerin (Nitroglycerin 2% Ointment 30gm Tube) 1 inch EXT NOW STA Stop: 08/28/21 11:57 Last Admin: 08/28/21 12:10 Dose: 1 inch Documented by: [id number] Medical Decision Making Differential Diagnosis Differential diagnoses includes but is not limited to acute coronary syndrome, myocardial infarction, pericarditis, pulmonary embolus, aortic dissection, pneumonia, pneumothorax, musculoskeletal, shingles, esophageal. Medical Records Attestation: I reviewed the patient's medical records. Home Medications Current Medication List: was personally reviewed by me Laboratory Data Attestation: I reviewed the patient's lab results. Result diagrams: 08/28/21 11:54 08/28/21 11:54 Lab Results 08/28/21 08/28/21 08/28/21 Range/Units 11:54 11:54 11:54 WBC 6.35 (4.8-10.8) K/ul RBC 4.27 (3.93-5.22) M/uL Hgb 12.9 (12.0-16.0) g/dl Hct 41.2 (34.1-44.9) % MCV 96.5 (80.0-100.0) fL MCH 30.2 (25.0-34.0) pg MCHC 31.3 L (32.0-36.0) g/dL RDW Std Deviation 43.9 (36.4-46.3) fL RDW Coeff of Brandy 12.5 (11.5-14.5) % Plt Count 177 (130-400) K/uL MPV 10.3 (9.4-12.3) fL Immature Gran % (Auto) 0.5 % Neut % (Auto) 63.5 % Lymph % (Auto) 25.5 % Scott % (Auto) 7.9 % Eos % (Auto) 1.7 % Baso % (Auto) 0.9 % Neut # (Auto) 4.03 (1.4-6.5) K/uL Lymph # (Auto) 1.62 (1.2-3.4) K/uL Scott # (Auto) 0.50 (0.24-0.82) K/uL Eos # (Auto) 0.11 (0-0.50) K/uL Baso # (Auto) 0.06 (0-0.2) K/uL Immature Gran # (Auto) 0.03 H (0.00-0.02) K/uL PT 10.9 (9.0-12.0) Seconds INR 1.0 (0.9-1.1) Sodium 142 (136-145) mmol/L Potassium 4.0 (3.5-5.1) mmol/L Chloride 107 (98-107) mmol/L Carbon Dioxide 29 (21-32) mmol/L Anion Gap 6 (3-11) BUN 15 (6-23) mg/dl Creatinine 1.02 (0.6-1.2) mg/dl Est Cr Clr Drug Dosing 78.3 ml/min Est GFR ( Amer) 67.3 ml/min Est GFR (Non-Af Amer) 58.1 ml/min BUN/Creatinine Ratio 14.7 (10-20) Glucose 128 H (70-99(Fasting)) mg/dl Calcium 9.3 (8.5-10.1) mg/dl Magnesium 1.9 (1.7-2.4) mg/dl Total Bilirubin 0.5 (0.2-1.0) mg/dl AST 14 (13-39) U/L ALT 9 (7-52) U/L Alkaline Phosphatase 57 (34-104) U/L Troponin I High Sens 10.1 (0-14) pg/ml Total Protein 6.9 (6.0-8.3) gm/dl Albumin 3.9 (3.4-5.0) gm/dl Globulin 3.0 (2.5-4.0) gm/dl Albumin/Globulin Ratio 1.3 (0.9-2) Lipase 14 (11-82) U/L TSH (0.300-4.500) uIu/ml SARS-CoV-2, RNA, NAAT (NEGATIVE) 08/28/21 08/28/21 Range/Units 11:54 13:30 WBC (4.8-10.8) K/ul RBC (3.93-5.22) M/uL Hgb (12.0-16.0) g/dl Hct (34.1-44.9) % MCV (80.0-100.0) fL MCH (25.0-34.0) pg MCHC (32.0-36.0) g/dL RDW Std Deviation (36.4-46.3) fL RDW Coeff of Brandy (11.5-14.5) % Plt Count (130-400) K/uL MPV (9.4-12.3) fL Immature Gran % (Auto) % Neut % (Auto) % Lymph % (Auto) % Scott % (Auto) % Eos % (Auto) % Baso % (Auto) % Neut # (Auto) (1.4-6.5) K/uL Lymph # (Auto) (1.2-3.4) K/uL Scott # (Auto) (0.24-0.82) K/uL Eos # (Auto) (0-0.50) K/uL Baso # (Auto) (0-0.2) K/uL Immature Gran # (Auto) (0.00-0.02) K/uL PT (9.0-12.0) Seconds INR (0.9-1.1) Sodium (136-145) mmol/L Potassium (3.5-5.1) mmol/L Chloride (98-107) mmol/L Carbon Dioxide (21-32) mmol/L Anion Gap (3-11) BUN (6-23) mg/dl Creatinine (0.6-1.2) mg/dl Est Cr Clr Drug Dosing ml/min Est GFR ( Amer) ml/min Est GFR (Non-Af Amer) ml/min BUN/Creatinine Ratio (10-20) Glucose (70-99(Fasting)) mg/dl Calcium (8.5-10.1) mg/dl Magnesium (1.7-2.4) mg/dl Total Bilirubin (0.2-1.0) mg/dl AST (13-39) U/L ALT (7-52) U/L Alkaline Phosphatase (34-104) U/L Troponin I High Sens (0-14) pg/ml Total Protein (6.0-8.3) gm/dl Albumin (3.4-5.0) gm/dl Globulin (2.5-4.0) gm/dl Albumin/Globulin Ratio (0.9-2) Lipase (11-82) U/L TSH 0.862 (0.300-4.500) uIu/ml SARS-CoV-2, RNA, NAAT NEGATIVE (NEGATIVE) Imaging Data Radiologist's Impression: Chest X-Ray 08/28/21 11:58 XR chest 1V portable CLINICAL HISTORY: chest pain. COMPARISON STUDY: 03/19/2020 TECHNIQUE: 1 view of the chest FINDINGS: Single frontal view of the chest demonstrates the cardiomediastinal silhouette to be within normal limits. The lungs are clear of alveolar opacities. There is no evidence for pleural effusion. There is no evidence for vascular congestion. There is no acute osseous pathology. IMPRESSION: 1. No acute cardiopulmonary disease. ACT 112: Negative or not required by law. Electronically signed by: Luciano Jones M.D. 08/28/2021 12:27 PM ECG Data Attestation: I personally reviewed and interpreted this ECG as follows: Indication: + chest pain Rate (beats per minute): 86 Rhythm: + normal sinus ECG Intervals/blocks: + Normal QRS and + Normal QT ECG [place]: + Normal ECG ST segments: + Nonspecific ST abnormalities MDM Narrative An order was placed for continuous cardiac monitoring. The monitor shows a rate of _70_ with _normal sinus__ rhythm. This is a 66-year-old female presents emergency department complaining of left- sided chest pain rating into her left upper extremity. Patient with a prior documented history of coronary artery disease although no intervention performed. Patient does also have history of atrial fibrillation and is anticoagulated although on arrival today she was found to have a normal sinus rhythm. Labs drawn and sent were reassuring, no acute pathology noted on chest x-ray. Patient was given aspirin and 2 nitros by EMS prior to arrival. Nitropaste was added here and she did have some improvement. Additionally Tylenol and Pepcid were also given. Patient did feel markedly improved. Tropo colette negative and EKG reassuring. I do not suspect PE as patient states she has been compliant with her anticoagulation. No other findings on exam or chest x- ray to suggest evolving dissection. I do not suspect occult infectious etiology at this time. Patient was hemodynamically stable while in the emergency room. Given multiple risk factors and history of CAD, case discussed with hospitalist team for additional evaluation and management. This time I do not suspect occult vascular etiology or GI etiology. Patient with no difficulty breathing or hypoxia noted. Impression & Plan Chest pain, Hypertension, Obesity Discharge Plan Visit Data Chief Complaint: Chest Pain Stated Complaint: CHEST PAIN ED Provider: Magalys Wheat Discharge Problem: Chest pain, Hypertension, Obesity Patient Disposition: Admitted As Inpatient Discharge Instructions Interventions: ED Discharge Assessment Last Done: 08/28/21 15:09 Discharge Problem: Chest pain Qualifiers: Chest pain type: unspecified Qualified Code(s): R07.9 - Chest pain, unspecified Hypertension Qualifiers: Hypertension type: primary hypertension Qualified Code(s): I10 - Essential (primary) hypertension Obesity Qualifiers: Obesity type: unspecified obesity type Obesity classification: unspecified obesity classification Serious obesity comorbidity presence: unspecified whether serious comorbidity present Qualified Code(s): E66.9 - Obesity, unspecified
[2021-08-28 12:23] LABS: Prothrombin Time 10.9 Seconds (9.0-12.0)
--- NOTE | 2021-08-28 12:28 | XRay Report ---
XR chest 1V portable CLINICAL HISTORY: chest pain. COMPARISON STUDY: 03/19/2020 TECHNIQUE: 1 view of the chest FINDINGS: Single frontal view of the chest demonstrates the cardiomediastinal silhouette to be within normal li mits. The lungs are clear of alveolar opacities. There is no evidence for pleural effusion. There is no evidence for vascular congestion. There is no acute osseous pathology. IMPRESSION: 1. No acute cardiopulmonary disease. ACT 112: Negative or not required by law. Electronically signed by: Luciano Jones M.D. 08/28/2021 12:27 PM
[2021-08-28 12:47] LABS: Troponin I High Sensitivity 10.1 pg/ml (0-14)
[2021-08-28 12:48] LABS: Albumin Globulin Ratio 1.3 (0.9-2); Albumin Level 3.9 gm/dl (3.4-5.0); BUN Creatinine Ratio 14.7 (10-20); Bilirubin,Total 0.5 mg/dl (0.2-1.0); Calcium 9.3 mg/dl (8.5-10.1); Creatinine Clr Calc Pharmacy 78.3 ml/min; Est GFR (African American) 67.3 ml/min; Est GFR (Non-African American) 58.1 ml/min; Magnesium 1.9 mg/dl (1.7-2.4); Total Protein 6.9 gm/dl (6.0-8.3)
[2021-08-28] MEDS ORDERED: FAMOTIDINE 20MG IV PUSH 20 MG/5 ML SYR IV STA (13:11)
--- NOTE | 2021-08-28 14:06 | History & Physical Report ---
Date of Service August 28, 2021 Assessment & Plan (1) Chest pain: (2) CAD (coronary artery disease): (3) Hypertension: (4) Atrial flutter, paroxysmal: Plan: Patient presented to the ED via EMS for chest pain. Initial workup in the ED negative, but admit for caridac rule out due to strong family history and personal hx of CAD. Admit to [facility] for continued cardiac monitoring. Patient notes that she is DNR. Consult Cardiology- patient sees Dr. Torres outpatient. Trend troponin. Keep NPO pending next troponin. EKG tomorrow morning and PRN chest pain. Nitro PRN Defer to Cardiology for repeat Cardiac imaging Continue Eliquis, ASA 81 mg daily, Metoprolol, lisinopril (5) Dyslipidemia: Plan: Continue statin (6) GERD (gastroesophageal reflux disease): Plan: Continue PPI (7) Stage 3 chronic kidney disease: Plan: Stable. Monitor Repeat BMP, CBC in AM (8) Chronic low back pain: Plan: Chronic low back pain with lumbar radiculopathy. Will continue oxycodone PRN (9) Candidal intertrigo: Plan: Severe intertrigo of the anterior and posterior skin folds. Severe erythema and large surface area. Recommended application of clotrimazole cream BID (10) DVT prophylaxis: Plan: Continue home Eliquis History of Present Illness Chief Complaint: Chest pain Primary Care Provider: Nikunj Plascencia MD Patient is a 66 yo female with a complicated medical history including HTN, Atrial flutter, IBS, Morbid obesity, CKD stage 3, spinal stenosis of L spine, and who presented to the ED today via EMS for chest pain. Her initial pain was >10/10 pain and into her left arm. This started while she was watching TV at home. She had just gotten off of the phone with the [facility] and was told her dog has DM. The pain is sharp and was radiating into the left arm. No palpitations, sweats at the time, but she had some mild nausea. She was given 2 doses of Nitro en route to the hospital that helped her pain slightly. She does have a headache today after she was given ASA and nitro in the ambulance. She felt slightly dizzy when the pain started at home. She has had some mild abdominal pain for a long time secondary to IBS. No dysuria, but she does have urinary retention chronically She is currently having a lot of back pain which is chronic. She was previously on Oxycodone but this was stopped until she can see her PCP. She just started using medical marijuana 4 times daily for the past 2 days. Since admission, initial troponin within normal. EKG unremarkable. CXR negative. Outpatient cardiology record notes that patient has chronic coronary artery disease with 50% ostial LAD stenosis per catheterization November 07, 2016. She had a dobutamine stress echo in 01/2021 which was negative for inducible ischemia. She had family history of both father and mother having MD's. She notes that she does also use Nystatin PRN for intertrigo. Allergies Allergy/AdvReac Type Severity Reaction Status Date / Time egg AdvReac Intermediate GI upset Verified 08/28/21 15:16 ibuprofen AdvReac Mild stomach Verified 08/28/21 15:16 irritation morphine AdvReac LEGS SWELL Verified 08/28/21 15:17 Home Medications Medication Instructions Recorded Confirmed Type atorvastatin 80 mg tablet 80 mg PO QPM 06/16/18 08/28/21 History cholecalciferol (vitamin D3) 25 2,000 unit PO QAM 06/16/18 08/28/21 History mcg (1,000 unit) tablet (Vitamin D3) cyanocobalamin (vitamin B-12) 1,000 mcg PO QAM 06/16/18 08/28/21 History 1,000 mcg tablet (Vitamin B-12) fish, borage, flaxseed oils-omega 1 cap PO QAM 06/16/18 08/28/21 History 3,6,9 comb no.1 1,200 mg capsule ([place] 3-6-9) folic acid 800 mcg tablet 0.8 mg PO QAM 06/16/18 08/28/21 History gabapentin 300 mg capsule 600 mg PO AMHS 06/16/18 08/28/21 History (Neurontin) loratadine 10 mg tablet 10 mg PO QAM 06/16/18 08/28/21 History ascorbic acid (vitamin C) 250 mg 250 mg PO QAM 12/13/19 08/28/21 History tablet docusate sodium 100 mg capsule 100 mg PO BID 12/13/19 08/28/21 History (Colace) tizanidine 4 mg tablet 4 mg PO Q6H PRN 12/13/19 08/28/21 History nitroglycerin 0.4 mg sublingual 0.4 mg SUBLINGUAL UD PRN 12/14/19 08/28/21 History tablet albuterol sulfate 90 mcg/actuation 2 puff INHALATION QID PRN 03/16/20 08/28/21 History aerosol inhaler duloxetine 60 mg capsule,delayed 60 mg PO BID 03/16/20 08/28/21 History release (Cymbalta) lisinopril 10 mg tablet 10 mg PO HS 03/16/20 08/28/21 History metoprolol succinate 50 mg 25 mg PO BID 03/16/20 08/28/21 History tablet,extended release 24 hr omeprazole 40 mg capsule,delayed 40 mg PO QAM 03/16/20 08/28/21 History release ondansetron 4 mg disintegrating 4 mg PO Q6H PRN #15 tab 03/16/20 08/28/21 Rx tablet apixaban 5 mg tablet (Eliquis) 5 mg PO BID 03/12/21 08/28/21 History dicyclomine 10 mg capsule 10 mg PO BID 03/19/21 08/28/21 History famotidine 20 mg tablet (Pepcid) 20 mg PO QAM 03/19/21 08/28/21 History mirabegron 25 mg tablet,extended 25 mg PO QAM 03/19/21 08/28/21 History release 24 hr (Myrbetriq) buspirone 10 mg tablet 20 mg PO BID 06/23/21 08/28/21 History doxycycline monohydrate 100 mg 100 mg PO Q OTHER DAY 08/28/21 08/28/21 History capsule oxycodone 5 mg capsule 10 - 15 mg PO Q4 PRN 08/28/21 08/28/21 History sumatriptan succinate 25 mg tablet 50 mg PO DIRECTED PRN 08/28/21 08/28/21 History trazodone 100 mg tablet 300 mg PO HS 08/28/21 08/28/21 History Past Med/Surg History Medical History (Updated 08/28/21 @ 14:33 by Gerda Campos PA-C) A-fib "i think i have a-fib." -- on eliquis -- follows with Dr. Torres Anemia Anxiety and depression Aortic stenosis Mild (per cardiology review) aortic stenosis with possible bicuspid aortic valve (MG 19mmhg, NIKKIE 3.0) per 05/2018 ECHO Atrial flutter, paroxysmal Back pain Borderline diabetes mellitus Bullous pemphigoid CAD (coronary artery disease) non-obstructive Cardiac murmur Carotid artery stenosis "mild" Chronic back pain Chronic low back pain COVID-19 GERD (gastroesophageal reflux disease) controlled High cholesterol History of COVID-19 02/2020; generalized weakness, diarrhea, sob, fever, body aches; hospitalized x 1 week; c/o ongoing brain fog since having covid History of skin cancer History of TIA (transient ischemic attack) 2016 Hx of falling last fall 09/2018- per patient, related to LBP/balance issues- ? r/t ambulatory dysfunction- improved with cane/walker use Hypertension IBS (irritable bowel syndrome) Morbid obesity BMI 50.5 Osteoporosis Renal failure Sacroiliitis Stage 3 chronic kidney disease Surgical History History of appendectomy History of back surgery History of cardiac cath 2017= NO STENTS History of kyphoplasty History of right cataract extraction History of right knee joint replacement Hx of laparoscopy S/P epidural steroid injection Family History (Updated 08/28/21 @ 14:04 by Gerda Campos PA-C) Father Stroke Slow to wake up after anesthesia Myocardial infarction, Onset Age: 40 Mother Stroke Myocardial infarction, Onset Age: 60 Sister Myocardial infarction, Onset Age: 60 Social History (Updated 08/28/21 @ 14:03 by Gerda Campos PA-C) Smoking Status: Former smoker Tobacco Type: Cigarettes Second Hand Exposure: No; Hx Alcohol Use: No Hx Substance Use: Yes (Medical marijuana) Prescribed Medications: Marijuana Preferred Language: Luxembourgish Communication Ability: Effective Visual Impairment: No Limitations Hearing 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: Normal 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 marital status: Single Current Living Situation: Parent Current Living Situation Comment: lives with mother and sister current occupational status: unemployed and disabled Feels Safe at Home: Yes Assistive Devices: Glasses Results & Data Results & Data ([facility]) Vital Signs (Past 12 Hours) Vital Signs Temp Pulse Pulse Resp BP BP Pulse Ox 08/28/21 11:59 36.5 C 80 80 20 146/80 H 146/80 H 96 Laboratory Results Laboratory Results - last 24 hr 08/28/21 08/28/21 08/28/21 11:54 11:54 11:54 WBC 6.35 RBC 4.27 Hgb 12.9 Hct 41.2 MCV 96.5 MCH 30.2 MCHC 31.3 L RDW Std Deviation 43.9 RDW Coeff of Brandy 12.5 Plt Count 177 MPV 10.3 Immature Gran % (Auto) 0.5 Neut % (Auto) 63.5 Lymph % (Auto) 25.5 [place] % (Auto) 7.9 Eos % (Auto) 1.7 Baso % (Auto) 0.9 Neut # (Auto) 4.03 Lymph # (Auto) 1.62 [place] # (Auto) 0.50 Eos # (Auto) 0.11 Baso # (Auto) 0.06 Immature Gran # (Auto) 0.03 H PT 10.9 INR 1.0 Sodium 142 Potassium 4.0 Chloride 107 Carbon Dioxide 29 Anion Gap 6 BUN 15 Creatinine 1.02 Est Cr Clr Drug Dosing 78.3 Est GFR ( Amer) 67.3 Est GFR (Non-Af Amer) 58.1 BUN/Creatinine Ratio 14.7 Glucose 128 H Calcium 9.3 Magnesium 1.9 Total Bilirubin 0.5 AST 14 ALT 9 Alkaline Phosphatase 57 Troponin I High Sens 10.1 Total Protein 6.9 Albumin 3.9 Globulin 3.0 Albumin/Globulin Ratio 1.3 Lipase 14 TSH SARS-CoV-2, RNA, NAAT 08/28/21 08/28/21 11:54 13:30 WBC RBC Hgb Hct MCV MCH MCHC RDW Std Deviation RDW Coeff of Brandy Plt Count MPV Immature Gran % (Auto) Neut % (Auto) Lymph % (Auto) Lamar % (Auto) Eos % (Auto) Baso % (Auto) Neut # (Auto) Lymph # (Auto) Lamar # (Auto) Eos # (Auto) Baso # (Auto) Immature Gran # (Auto) PT INR Sodium Potassium Chloride Carbon Dioxide Anion Gap BUN Creatinine Est Cr Clr Drug Dosing Est GFR ( Amer) Est GFR (Non-Af Amer) BUN/Creatinine Ratio Glucose Calcium Magnesium Total Bilirubin AST ALT Alkaline Phosphatase Troponin I High Sens Total Protein Albumin Globulin Albumin/Globulin Ratio Lipase TSH 0.862 SARS-CoV-2, RNA, NAAT NEGATIVE Diagnostic Findings CXR: IMPRESSION: 1. No acute cardiopulmonary disease. Supervising Physician Co-Signing Physician Notes 66 yo F w/ PMH of morbid obesity, A flutter on eliquis, CAD, HTN, CKD III, spinal stenosis L-spine and chronic low back pain (recently started on medical marijuana as OP) presented 7/ w/ c/o chest pain at rest w/ radiation to left arm relieved w/ nitro and aspirin (given by ems) but having some headache afterwards. She reports hearing bad news about her cat just prior to having chest pain. Admitting EKG w/ T wave inversion in ant leads, trop wnl. Trend trops, ekg in am and w/ pain, cardio consult. NPO midnight. Intertrigo in belly, clotrimazole. low back pain, percocet Upon Exam: GENERAL: Alert and oriented x3. mild distress d/t low back pain, on RA. Morbidly obese HEENT: No pallor, no icterus. Pupils equal, round and reactive to light. Oral mucosa moist. NECK: No JVD, no neck masses. HEART: S1 and S2 heard. Regular rate and rhythm. No murmur, no gallop. RESPIRATORY SYSTEM: Normal AP diameter. No accessory muscle use. No wheezing, no crackles. ABDOMEN: Soft, bowel sounds present, nontender, no distention. Intertrigo rash along abd fold reaching beyond flanks bilaterally. CENTRAL NERVOUS SYSTEM: No facial droop. Speech is clear. Obeys simple commands. Moves extremities. EXTREMITIES: No edema, no erythema seen. I have seen and examined the patient and have discussed the case with the provider above. I agree with the assessment and plan as stated. (1) Stage 3 chronic kidney disease Chronic kidney disease stage 3 subtype: unspecified whether 3a or 3b Qualified Code(s): N18.30 - Chronic kidney disease, stage 3 unspecified
[2021-08-28] MEDS ORDERED: ACETAMINOPHEN 325 MG TAB PO PRN (14:31)
[2021-08-28] MEDS ORDERED: ALUMINUM/MAGNESIUM SUSP 30 ML UDC PO PRN (14:31)
[2021-08-28] MEDS ORDERED: MAGNESIUM HYDROXIDE SUSP 30 ML UDC PO PRN (14:31)
[2021-08-28] MEDS ORDERED: NITROGLYCERIN SL 0.4 MG/TAB TAB SL PRN (14:31)
[2021-08-28] MEDS: oxyCODONE/ACETAMINOPHEN 5mg/325mg TAB PO PRN ×2 (16:39→22:27)
[2021-08-28] MEDS ORDERED: METOPROLOL TARTRATE 25 MG TAB PO ONE (16:45)
--- NOTE | 2021-08-28 17:33 | Cardiology Consultation ---
Date of Consultation August 28, 2021 Assessment & Plan (1) Chest pain: (2) CAD (coronary artery disease): (3) Bicuspid aortic valve: (4) Aortic stenosis: (5) Atrial flutter, paroxysmal: 66-year-old female with history of 50% ostial LAD stenosis, possible bicuspid aortic valve with moderate stenosis presents with chest discomfort. No ischemic ECG changes. High-sensitivity troponin negative x2 sets. Possible noncardiac etiology with history of hiatal hernia. Beaming stress echo perfor med in January 2021 without evidence of inducible ischemia. Recommend repeat high-sensitivity troponin in 4 to 6 hours. Update resting 2D transthoracic echocardiogram in a.m. Continue topical nitrates, beta-kristofer, aspirin, and statin therapy. Hold Eliquis this evening. Repeat ECG with any recurrent chest discomfort. History of Present Illness Reason for Consultation: CP r/o ACS Requesting Physician: Dr. Garcia Attending Physician: Jyotsna Garcia MD History of Present Illness 66-year-old female present to the emergency department with chest discomfort. Pain described as a heaviness and tightness radiating to her left arm. Discomfort began at rest around 12 PM. She was brought to the ER via EMS. Treated with sublingual nitroglycerin. Reports mild recurrent chest heaviness upon arrival to the telemetry floor which has since resolved. Initial high- sensitivity troponin within normal limits. ECG in ER without ischemic changes. Reports stress related to her dog who recently was diagnosed with diabetes. She is unsure if she will be able to continue to care for him. No orthopnea, PND, palpitations, or lower extremity edema. States edema improved with discontinuation of morphine. Chronically anticoagulated due to history of paroxysmal atrial flutter. Denies signs/symptoms of GI/ blood loss. Allergies Allergy/AdvReac Type Severity Reaction Status Date / Time egg AdvReac Intermediate GI upset Verified 08/28/21 15:16 ibuprofen AdvReac Mild stomach Verified 08/28/21 15:16 irritation morphine AdvReac LEGS SWELL Verified 08/28/21 15:17 Home Medications Medication Instructions Recorded Confirmed Type atorvastatin 80 mg tablet 80 mg PO QPM 06/16/18 08/28/21 History cholecalciferol (vitamin D3) 25 2,000 unit PO QAM 06/16/18 08/28/21 History mcg (1,000 unit) tablet (Vitamin D3) cyanocobalamin (vitamin B-12) 1,000 mcg PO QAM 06/16/18 08/28/21 History 1,000 mcg tablet (Vitamin B-12) fish, borage, flaxseed oils-omega 1 cap PO QAM 06/16/18 08/28/21 History 3,6,9 comb no.1 1,200 mg capsule ([place] 3-6-9) folic acid 800 mcg tablet 0.8 mg PO QAM 06/16/18 08/28/21 History gabapentin 300 mg capsule 600 mg PO AMHS 06/16/18 08/28/21 History (Neurontin) loratadine 10 mg tablet 10 mg PO QAM 06/16/18 08/28/21 History ascorbic acid (vitamin C) 250 mg 250 mg PO QAM 12/13/19 08/28/21 History tablet docusate sodium 100 mg capsule 100 mg PO BID 12/13/19 08/28/21 History (Colace) tizanidine 4 mg tablet 4 mg PO Q6H PRN 12/13/19 08/28/21 History nitroglycerin 0.4 mg sublingual 0.4 mg SUBLINGUAL UD PRN 12/14/19 08/28/21 History tablet albuterol sulfate 90 mcg/actuation 2 puff INHALATION QID PRN 03/16/20 08/28/21 History aerosol inhaler duloxetine 60 mg capsule,delayed 60 mg PO BID 03/16/20 08/28/21 History release (Cymbalta) lisinopril 10 mg tablet 10 mg PO HS 03/16/20 08/28/21 History metoprolol succinate 50 mg 25 mg PO BID 03/16/20 08/28/21 History tablet,extended release 24 hr omeprazole 40 mg capsule,delayed 40 mg PO QAM 03/16/20 08/28/21 History release ondansetron 4 mg disintegrating 4 mg PO Q6H PRN #15 tab 03/16/20 08/28/21 Rx tablet apixaban 5 mg tablet (Eliquis) 5 mg PO BID 03/12/21 08/28/21 History dicyclomine 10 mg capsule 10 mg PO BID 03/19/21 08/28/21 History famotidine 20 mg tablet (Pepcid) 20 mg PO QAM 03/19/21 08/28/21 History mirabegron 25 mg tablet,extended 25 mg PO QAM 03/19/21 08/28/21 History release 24 hr (Myrbetriq) buspirone 10 mg tablet 20 mg PO BID 06/23/21 08/28/21 History doxycycline monohydrate 100 mg 100 mg PO Q OTHER DAY 08/28/21 08/28/21 History capsule oxycodone 5 mg capsule 10 - 15 mg PO Q4 PRN 08/28/21 08/28/21 History sumatriptan succinate 25 mg tablet 50 mg PO DIRECTED PRN 08/28/21 08/28/21 History trazodone 100 mg tablet 300 mg PO HS 08/28/21 08/28/21 History Patient History Medical History A-fib "i think i have a-fib." -- on eliquis -- follows with Dr. Torres Anemia Anxiety and depression Aortic stenosis Mild (per cardiology review) aortic stenosis with possible bicuspid aortic valve (MG 19mmhg, NIKKIE 3.0) per 05/2018 ECHO Atrial flutter, paroxysmal Back pain Borderline diabetes mellitus Bullous pemphigoid CAD (coronary artery disease) non-obstructive Cardiac murmur Carotid artery stenosis "mild" Chronic back pain Chronic low back pain COVID-19 GERD (gastroesophageal reflux disease) controlled High cholesterol History of COVID-19 02/2020; generalized weakness, diarrhea, sob, fever, body aches; hospitalized x 1 week; c/o ongoing brain fog since having covid History of skin cancer History of TIA (transient ischemic attack) 2016 Hx of falling last fall 09/2018- per patient, related to LBP/balance issues- ? r/t ambulatory dysfunction- improved with cane/walker use Hypertension IBS (irritable bowel syndrome) Morbid obesity BMI 50.5 Osteoporosis Renal failure Sacroiliitis Stage 3 chronic kidney disease Surgical History History of appendectomy History of back surgery History of cardiac cath 2017= NO STENTS History of kyphoplasty History of right cataract extraction History of right knee joint replacement Hx of laparoscopy S/P epidural steroid injection Family History Father Stroke Slow to wake up after anesthesia Myocardial infarction, Onset Age: 40 Mother Stroke Myocardial infarction, Onset Age: 60 Sister Myocardial infarction, Onset Age: 60 Social History Smoking Status: Former smoker Tobacco Type: Cigarettes Second Hand Exposure: No; Hx Alcohol Use: No Hx Substance Use: Yes (Medical marijuana) Prescribed Medications: Marijuana Preferred Language: Nigerien Communication Ability: Effective Visual Impairment: No Limitations 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 marital status: Single Current Living Situation: Parent Current Living Situation Comment: lives with mother and sister current occupational status: unemployed and disabled Feels Safe at Home: Yes Assistive Devices: Glasses Review of Systems Review of Systems: All systems reviewed & are unremarkable except as noted in Subjective Physical Exam Constitutional: + morbidly obese; no acute distress Respiratory: no respiratory distress, no labored breathing and no retractions Cardiovascular: Rate/Rhythm: regular rate and regular rhythm Heart Sounds: normal S1, normal S2 and + murmur (3/6 mid peaking GA) Vessels: no JVD Extremities: no edema Gastrointestinal (Abdomen): Inspection/Auscultation: abdomen normal to inspection and normal bowel sounds; abdomen not distended Percussion/Palpation: abdomen soft; abdomen nontender and no guarding Neurologic: CN's II-XI intact bilaterally and moves all extremities Psychiatric: Orientation: alert and oriented x 3 Results & Data ([facility]) Vital Signs (Past 12 Hours) Vital Signs Temp Pulse Pulse Resp BP BP Pulse Ox 08/28/21 16:10 66 08/28/21 15:51 36.4 C L 63 14 174/75 H 97 08/28/21 15:09 70 20 146/80 H 98 08/28/21 11:59 36.5 C 80 80 20 146/80 H 146/80 H 96 Diagnostic Findings Dobutamine Stress echo report 01/29/2021: The stress echo is negative for inducible ischemia. No arrhythmias. Normal heart rate blood pressure response to dobutamine. At rest chamber size with mild concentric LVH. Normal LV function without regional wall motion abnormalities, EF 55 to 60%. Grade 2 diastolic dysfunction. The aortic valve is inadequately visualized, unable to accurately determine the number of leaflets.. The aortic valve is possibly bicuspid. Moderate aortic valve stenosis is present. There is no significant aortic regurgitation. Dobutamine stress echo report summary 04/2019: The stress echo is negative for inducible ischemia. There is an appropriate heart rate and blood pressure response to the dobutamine atropine stress protocol The stress EKG response showed no evidence of ischemia. No arrhythmias were noted with stress. The left ventricular wall motion is normal. The left ventricular wall motion with stress is normal. The left ventricular ejection fraction increases normally with stress. The left ventricular cavity size is normal. The LV wall thickness is mildly increased (concentric). The left ventricular systolic function is normal. The qualitative LV ejection fraction is 55-59% (normal). The aortic valve is possibly bicuspid. The aortic valve is moderately calcified. Moderate aortic valve stenosis is present. The aortic root and proximal ascending aorta are normal sized. 2D echo 03/30/2020: The LV wall thickness is mildly increased (concentric). The left ventricular wall motion is normal. The aortic valve is possibly bicuspid. The aortic valve is moderately calcified. Moderate aortic valve stenosis is present. The aortic root and proximal ascending aorta are normal sized. Compared to the prior study dated 04/30/2019, there has been no significant interval change.
[2021-08-28] MEDS: METOPROLOL SUCC 25MG EXT REL TAB PO SCH (20:46)
[2021-08-28] MEDS: DICYCLOMINE HCL 10 MG CAP PO SCH (20:46)
[2021-08-28] MEDS: busPIRone 5 MG TAB PO SCH (20:47)
[2021-08-28] MEDS: GABAPENTIN 300 MG CAP PO SCH (20:47)
[2021-08-28] MEDS: DOCUSATE SODIUM 100 MG CAP PO SCH (20:48)
[2021-08-28] MEDS: CLOTRIMAZOLE 1% CR 15 GM TUBE EXT SCH (20:49)
[2021-08-28] MEDS: DULoxetine HCL 60 MG CAP PO SCH (20:49)
[2021-08-28] MEDS ORDERED: traZODone HCL 100 MG TAB PO SCH (21:00)
[2021-08-28] MEDS ORDERED: APIXABAN 5 MG TABLET PO SCH (21:00)
[2021-08-28] MEDS ORDERED: ATORVASTATIN 40 MG TAB PO SCH (21:00)
[2021-08-28] MEDS ORDERED: lisinopril 10 MG TAB PO SCH (21:00)
[2021-08-29] MEDS ORDERED: LORazepam 0.5 MG TAB PO PRN (00:09)
[2021-08-29 03:38] LABS: Hematocrit (blood only) 38.2 % (34.1-44.9); Mean Corpuscular Hemoglobin 30.4 pg (25.0-34.0); Mean Corpuscular Hgb Conc 31.4 g/dL (32.0-36.0); Mean Corpuscular Volume 96.7 fL (80.0-100.0); Mean Platelet Volume 10.4 fL (9.4-12.3); Platelet Count 167 K/uL (130-400); RDW Coefficient of Variation 12.3 % (11.5-14.5); RDW Standard Deviation 44.1 fL (36.4-46.3); Red Blood Count 3.95 M/uL (3.93-5.22); White Blood Count 8.85 K/ul (4.8-10.8)
[2021-08-29 04:02] LABS: BUN Creatinine Ratio 17.6 (10-20); Calcium 8.5 mg/dl (8.5-10.1); Creatinine Clr Calc Pharmacy 78.2 ml/min; Est GFR (African American) 67.3 ml/min; Est GFR (Non-African American) 58.1 ml/min; Magnesium 1.8 mg/dl (1.7-2.4); Phosphorus 2.5 mg/dl (2.5-4.9)
[2021-08-29] MEDS: oxyCODONE/ACETAMINOPHEN 5mg/325mg TAB PO PRN ×2 (04:56→13:57)
--- NOTE | 2021-08-29 07:35 | Hospitalist Progress Note ---
Date of Service August 29, 2021 Assessment & Plan (1) Chest pain: (2) CAD (coronary artery disease): (3) Hypertension: (4) Atrial flutter, paroxysmal: Plan: Patient presented to the ED via EMS for chest pain. Initial workup in the ED negative, but admit for caridac rule out due to strong family history and personal hx of CAD. Admitted to [facility] for continued cardiac monitoring. Patient notes that she is DNR. Consult Cardiology- Dr. Torres troponin negative Echo obtained Compared to dobutamine stress echo performed January 2021, there is no significant change. EF 66 5%. There is moderate concentric LVH. Aortic valve is moderately calcified and possibly bicuspid. Moderate valvular aortic stenosis. Trace aortic regurg Continue Eliquis, ASA 81 mg daily, Metoprolol, lisinopril Added HCTZ for uncontrolled hypertension Follow-up with cardiology in 1 to 2 weeks. Consider evaluation by GI for hiatal hernia. (5) Dyslipidemia: Plan: Continue statin (6) GERD (gastroesophageal reflux disease): Plan: Continue PPI (7) Stage 3 chronic kidney disease: Plan: Stable. Monitor (8) Chronic low back pain: Plan: Chronic low back pain with lumbar radiculopathy. Will continue oxycodone PRN (9) Candidal intertrigo: Plan: Severe intertrigo of the anterior and posterior skin folds. Severe erythema and large surface area. Recommended application of clotrimazole cream BID (10) DVT prophylaxis: Plan: Continue home Eliquis Admission and Anticipated Discharge Date Admission Date: August 28, 2021 Subjective Patient seen in follow-up of chest pain Currently she feels well, no chest pain, palpitations shortness of breath Cardiology evaluated, underwent echocardiogram this morning Plan to discharge today Review of Systems Review of Systems: All systems reviewed & are unremarkable except as noted in Subjective Physical Exam Physical Exam: GENERAL: Alert and oriented x3. on RA. Morbidly obese HEENT: No pallor, no icterus. Pupils equal, round and reactive to light. EOMI. Oral mucosa moist. NECK: No JVD, no neck masses. HEART: S1 and S2 heard. Regular rate and rhythm. No murmur, no gallop. RESPIRATORY SYSTEM: Normal AP diameter. No accessory muscle use. No wheezing, no crackles. ABDOMEN: Soft, bowel sounds present, nontender, no distention. Intertrigo rash along abd fold reaching beyond flanks bilaterally. CENTRAL NERVOUS SYSTEM: No facial droop. Speech is clear. Obeys simple commands. Moves extremities. EXTREMITIES: No edema, no erythema seen. Results & Data Results & Data ([facility]) Vital Signs (Past 12 Hours) Vital Signs Temp Pulse Pulse Resp BP Pulse Ox 08/29/21 07:08 68 08/29/21 06:34 36.3 C L 68 20 176/96 H 94 08/29/21 02:39 36.4 C L 66 18 176/66 H 92 08/28/21 22:32 36.6 C 72 18 158/84 H 95 08/28/21 20:43 70 181/72 H Laboratory Results 08/29/21 08/29/21 08/29/21 Range/Units 03:29 03:29 03:29 WBC 8.85 (4.8-10.8) K/ul RBC 3.95 (3.93-5.22) M/uL Hgb 12.0 (12.0-16.0) g/dl Hct 38.2 (34.1-44.9) % MCV 96.7 (80.0-100.0) fL MCH 30.4 (25.0-34.0) pg MCHC 31.4 L (32.0-36.0) g/dL RDW Std Deviation 44.1 (36.4-46.3) fL RDW Coeff of Brandy 12.3 (11.5-14.5) % Plt Count 167 (130-400) K/uL MPV 10.4 (9.4-12.3) fL Immature Gran % (Auto) % Neut % (Auto) % Lymph % (Auto) % Marathon % (Auto) % Eos % (Auto) % Baso % (Auto) % Neut # (Auto) (1.4-6.5) K/uL Lymph # (Auto) (1.2-3.4) K/uL Marathon # (Auto) (0.24-0.82) K/uL Eos # (Auto) (0-0.50) K/uL Baso # (Auto) (0-0.2) K/uL Immature Gran # (Auto) (0.00-0.02) K/uL PT (9.0-12.0) Seconds INR (0.9-1.1) Sodium 140 (136-145) mmol/L Potassium 4.0 (3.5-5.1) mmol/L Chloride 108 H (98-107) mmol/L Carbon Dioxide 28 (21-32) mmol/L Anion Gap 4 (3-11) BUN 18 (6-23) mg/dl Creatinine 1.02 (0.6-1.2) mg/dl Est Cr Clr Drug Dosing 78.2 ml/min Est GFR ( Amer) 67.3 ml/min Est GFR (Non-Af Amer) 58.1 ml/min BUN/Creatinine Ratio 17.6 (10-20) Glucose 95 (70-99(Fasting)) mg/dl Calcium 8.5 (8.5-10.1) mg/dl Phosphorus 2.5 (2.5-4.9) mg/dl Magnesium 1.8 (1.7-2.4) mg/dl Total Bilirubin (0.2-1.0) mg/dl AST (13-39) U/L ALT (7-52) U/L Alkaline Phosphatase (34-104) U/L Troponin I High Sens 12.6 (0-14) pg/ml Total Protein (6.0-8.3) gm/dl Albumin (3.4-5.0) gm/dl Globulin (2.5-4.0) gm/dl Albumin/Globulin Ratio (0.9-2) Lipase (11-82) U/L TSH (0.300-4.500) uIu/ml SARS-CoV-2, RNA, NAAT (NEGATIVE) 08/28/21 08/28/21 08/28/21 Range/Units 21:17 15:54 13:30 WBC (4.8-10.8) K/ul RBC (3.93-5.22) M/uL Hgb (12.0-16.0) g/dl Hct (34.1-44.9) % MCV (80.0-100.0) fL MCH (25.0-34.0) pg MCHC (32.0-36.0) g/dL RDW Std Deviation (36.4-46.3) fL RDW Coeff of Brandy (11.5-14.5) % Plt Count (130-400) K/uL MPV (9.4-12.3) fL Immature Gran % (Auto) % Neut % (Auto) % Lymph % (Auto) % Marathon % (Auto) % Eos % (Auto) % Baso % (Auto) % Neut # (Auto) (1.4-6.5) K/uL Lymph # (Auto) (1.2-3.4) K/uL Marathon # (Auto) (0.24-0.82) K/uL Eos # (Auto) (0-0.50) K/uL Baso # (Auto) (0-0.2) K/uL Immature Gran # (Auto) (0.00-0.02) K/uL PT (9.0-12.0) Seconds INR (0.9-1.1) Sodium (136-145) mmol/L Potassium (3.5-5.1) mmol/L Chloride (98-107) mmol/L Carbon Dioxide (21-32) mmol/L Anion Gap (3-11) BUN (6-23) mg/dl Creatinine (0.6-1.2) mg/dl Est Cr Clr Drug Dosing ml/min Est GFR ( Amer) ml/min Est GFR (Non-Af Amer) ml/min BUN/Creatinine Ratio (10-20) Glucose (70-99(Fasting)) mg/dl Calcium (8.5-10.1) mg/dl Phosphorus (2.5-4.9) mg/dl Magnesium (1.7-2.4) mg/dl Total Bilirubin (0.2-1.0) mg/dl AST (13-39) U/L ALT (7-52) U/L Alkaline Phosphatase (34-104) U/L Troponin I High Sens 15.0 H D 9.2 (0-14) pg/ml Total Protein (6.0-8.3) gm/dl Albumin (3.4-5.0) gm/dl Globulin (2.5-4.0) gm/dl Albumin/Globulin Ratio (0.9-2) Lipase (11-82) U/L TSH (0.300-4.500) uIu/ml SARS-CoV-2, RNA, NAAT NEGATIVE (NEGATIVE) 07/09/22 07/09/22 07/09/22 Range/Units 11:54 11:54 11:54 WBC (4.8-10.8) K/ul RBC (3.93-5.22) M/uL Hgb (12.0-16.0) g/dl Hct (34.1-44.9) % MCV (80.0-100.0) fL MCH (25.0-34.0) pg MCHC (32.0-36.0) g/dL RDW Std Deviation (36.4-46.3) fL RDW Coeff of Brandy (11.5-14.5) % Plt Count (130-400) K/uL MPV (9.4-12.3) fL Immature Gran % (Auto) % Neut % (Auto) % Lymph % (Auto) % Marathon % (Auto) % Eos % (Auto) % Baso % (Auto) % Neut # (Auto) (1.4-6.5) K/uL Lymph # (Auto) (1.2-3.4) K/uL Marathon # (Auto) (0.24-0.82) K/uL Eos # (Auto) (0-0.50) K/uL Baso # (Auto) (0-0.2) K/uL Immature Gran # (Auto) (0.00-0.02) K/uL PT 10.9 (9.0-12.0) Seconds INR 1.0 (0.9-1.1) Sodium 142 (136-145) mmol/L Potassium 4.0 (3.5-5.1) mmol/L Chloride 107 (98-107) mmol/L Carbon Dioxide 29 (21-32) mmol/L Anion Gap 6 (3-11) BUN 15 (6-23) mg/dl Creatinine 1.02 (0.6-1.2) mg/dl Est Cr Clr Drug Dosing 78.3 ml/min Est GFR ( Amer) 67.3 ml/min Est GFR (Non-Af Amer) 58.1 ml/min BUN/Creatinine Ratio 14.7 (10-20) Glucose 128 H (70-99(Fasting)) mg/dl Calcium 9.3 (8.5-10.1) mg/dl Phosphorus (2.5-4.9) mg/dl Magnesium 1.9 (1.7-2.4) mg/dl Total Bilirubin 0.5 (0.2-1.0) mg/dl AST 14 (13-39) U/L ALT 9 (7-52) U/L Alkaline Phosphatase 57 (34-104) U/L Troponin I High Sens 10.1 (0-14) pg/ml Total Protein 6.9 (6.0-8.3) gm/dl Albumin 3.9 (3.4-5.0) gm/dl Globulin 3.0 (2.5-4.0) gm/dl Albumin/Globulin Ratio 1.3 (0.9-2) Lipase 14 (11-82) U/L TSH 0.862 (0.300-4.500) uIu/ml SARS-CoV-2, RNA, NAAT (NEGATIVE) 08/28/21 Range/Units 11:54 WBC 6.35 (4.8-10.8) K/ul RBC 4.27 (3.93-5.22) M/uL Hgb 12.9 (12.0-16.0) g/dl Hct 41.2 (34.1-44.9) % MCV 96.5 (80.0-100.0) fL MCH 30.2 (25.0-34.0) pg MCHC 31.3 L (32.0-36.0) g/dL RDW Std Deviation 43.9 (36.4-46.3) fL RDW Coeff of Brandy 12.5 (11.5-14.5) % Plt Count 177 (130-400) K/uL MPV 10.3 (9.4-12.3) fL Immature Gran % (Auto) 0.5 % Neut % (Auto) 63.5 % Lymph % (Auto) 25.5 % Marathon % (Auto) 7.9 % Eos % (Auto) 1.7 % Baso % (Auto) 0.9 % Neut # (Auto) 4.03 (1.4-6.5) K/uL Lymph # (Auto) 1.62 (1.2-3.4) K/uL Marathon # (Auto) 0.50 (0.24-0.82) K/uL Eos # (Auto) 0.11 (0-0.50) K/uL Baso # (Auto) 0.06 (0-0.2) K/uL Immature Gran # (Auto) 0.03 H (0.00-0.02) K/uL PT (9.0-12.0) Seconds INR (0.9-1.1) Sodium (136-145) mmol/L Potassium (3.5-5.1) mmol/L Chloride (98-107) mmol/L Carbon Dioxide (21-32) mmol/L Anion Gap (3-11) BUN (6-23) mg/dl Creatinine (0.6-1.2) mg/dl Est Cr Clr Drug Dosing ml/min Est GFR ( Amer) ml/min Est GFR (Non-Af Amer) ml/min BUN/Creatinine Ratio (10-20) Glucose (70-99(Fasting)) mg/dl Calcium (8.5-10.1) mg/dl Phosphorus (2.5-4.9) mg/dl Magnesium (1.7-2.4) mg/dl Total Bilirubin (0.2-1.0) mg/dl AST (13-39) U/L ALT (7-52) U/L Alkaline Phosphatase (34-104) U/L Troponin I High Sens (0-14) pg/ml Total Protein (6.0-8.3) gm/dl Albumin (3.4-5.0) gm/dl Globulin (2.5-4.0) gm/dl Albumin/Globulin Ratio (0.9-2) Lipase (11-82) U/L TSH (0.300-4.500) uIu/ml SARS-CoV-2, RNA, NAAT (NEGATIVE) Medications Administered Current Inpatient Medications Acetaminophen (Acetaminophen 325 Mg Tab) 650 mg PO Q8H PRN PRN Reason: Pain or Fever Stop: 09/27/21 14:30 Al Hydrox/Mg Hydrox/Simethicone (Aluminum/Magnesium Susp 30 Ml Udc) 15 ml PO Q4H PRN PRN Reason: Dyspepsia Stop: 09/27/21 14:30 Atorvastatin Calcium (Atorvastatin 40 Mg Tab) 80 mg PO QPM [facility] Stop: 09/27/21 20:59 Last Admin: 08/28/21 20:48 Dose: 80 mg Documented by: Buspirone HCl (Buspirone 5 Mg Tab) 20 mg PO BID PEGGY Stop: 09/27/21 20:59 Last Admin: 08/29/21 07:43 Dose: 20 mg Documented by: Clotrimazole (Clotrimazole 1% Cr 15 Gm Tube) 1 appln EXT BID [facility] Stop: 09/27/21 20:59 Last Admin: 08/29/21 07:44 Dose: 1 appln Documented by: Dicyclomine HCl (Dicyclomine Hcl 10 Mg Cap) 10 mg PO BID [facility] Stop: 09/27/21 20:59 Last Admin: 08/29/21 07:44 Dose: 10 mg Documented by: Docusate Sodium (Docusate Sodium 100 Mg Cap) 100 mg PO BID [facility] Stop: 09/27/21 20:59 Last Admin: 08/29/21 07:43 Dose: 100 mg Documented by: Doxycycline Hyclate (Doxycycline Hyclate 100 Mg Cap) 100 mg PO Q2D@0900 [facility] Stop: 09/29/21 08:59 Duloxetine HCl (Duloxetine Hcl 60 Mg Cap) 60 mg PO BID [facility] Stop: 09/27/21 20:59 Last Admin: 08/29/21 07:43 Dose: 60 mg Documented by: Famotidine (Famotidine 20 Mg Tab) 20 mg PO QAM [facility] Stop: 09/28/21 08:59 Last Admin: 08/29/21 07:43 Dose: 20 mg Documented by: Folic Acid (Folic Acid 400 Mcg Tab) 800 mcg PO QAM [facility] Stop: 09/28/21 08:59 Last Admin: 08/29/21 07:42 Dose: 800 mcg Documented by: Gabapentin (Gabapentin 300 Mg Cap) 600 mg PO [facility] Stop: 09/27/21 20:59 Last Admin: 08/29/21 07:43 Dose: 600 mg Documented by: Hydrochlorothiazide (Hydrochlorothiazide 25 Mg Tab) 25 mg PO QAM [facility] Stop: 09/28/21 08:59 Last Admin: 08/29/21 08:38 Dose: 25 mg Documented by: Lisinopril (Lisinopril 10 Mg Tab) 10 mg PO HS [facility] Stop: 09/27/21 20:59 Last Admin: 08/28/21 20:45 Dose: 10 mg Documented by: Loratadine (Loratadine 10 Mg Tab) 10 mg PO QAM [facility] Stop: 09/28/21 08:59 Last Admin: 08/29/21 07:43 Dose: 10 mg Documented by: Lorazepam (Lorazepam 0.5 Mg Tab) 0.5 mg PO HS PRN PRN Reason: insomnia Stop: 09/28/21 00:08 Last Admin: 08/29/21 00:34 Dose: 0.5 mg Documented by: Magnesium Hydroxide (Magnesium Hydroxide Susp 30 Ml Udc) 30 ml PO Q12H PRN PRN Reason: Constipation Stop: 09/27/21 14:30 Metoprolol Succinate (Metoprolol Succ 25mg Ext Rel Tab) 25 mg PO BID [facility] Stop: 09/27/21 20:59 Last Admin: 08/29/21 07:44 Dose: 25 mg Documented by: Mirabegron (Mirabegron Er 25 Mg Tab) 25 mg PO QAM [facility] Stop: 09/28/21 08:59 Last Admin: 08/29/21 07:43 Dose: 25 mg Documented by: Nitroglycerin (Nitroglycerin Sl 0.4 Mg/Tab Tab) 0.4 mg SL UD PRN PRN Reason: Chest Pain Stop: 09/27/21 14:30 Oxycodone/Acetaminophen (Oxycodone/Acetaminophen 5mg/325mg Tab) 1 tab PO Q6H PRN PRN Reason: Severe Pain Stop: 09/11/21 14:26 Last Admin: 08/29/21 04:56 Dose: 1 tab Documented by: Pantoprazole Sodium (Pantoprazole 40 Mg Tab) 40 mg PO QAM [facility] Stop: 09/28/21 08:59 Last Admin: 08/29/21 07:44 Dose: 40 mg Documented by: Trazodone HCl (Trazodone Hcl 100 Mg Tab) 200 mg PO HS [facility] Stop: 09/27/21 20:59 Last Admin: 08/28/21 20:48 Dose: 200 mg Documented by: (1) Stage 3 chronic kidney disease Chronic kidney disease stage 3 subtype: unspecified whether 3a or 3b Qualified Code(s): N18.30 - Chronic kidney disease, stage 3 unspecified (2) Chest pain Chest pain type: unspecified Qualified Code(s): R07.9 - Chest pain, unspecified (3) Hypertension Hypertension type: primary hypertension Qualified Code(s): I10 - Essential (primary) hypertension
[2021-08-29] MEDS: DOCUSATE SODIUM 100 MG CAP PO SCH (07:43)
[2021-08-29] MEDS: DULoxetine HCL 60 MG CAP PO SCH (07:43)
[2021-08-29] MEDS: GABAPENTIN 300 MG CAP PO SCH (07:43)
[2021-08-29] MEDS: busPIRone 5 MG TAB PO SCH (07:43)
[2021-08-29] MEDS: CLOTRIMAZOLE 1% CR 15 GM TUBE EXT SCH (07:44)
[2021-08-29] MEDS: METOPROLOL SUCC 25MG EXT REL TAB PO SCH (07:44)
[2021-08-29] MEDS: DICYCLOMINE HCL 10 MG CAP PO SCH (07:44)
[2021-08-29] MEDS ORDERED: MAGNESIUM SULFATE / D5W 1 GM/100 ML BAG IV ONE (07:45)
[2021-08-29 08:39] LABS: D Dimer 430 ug/L FEU (0-500)
[2021-08-29] MEDS ORDERED: PANTOprazole 40 MG TAB PO SCH (09:00)
[2021-08-29] MEDS ORDERED: FAMOTIDINE 20 MG TAB PO SCH (09:00)
[2021-08-29] MEDS ORDERED: hydroCHLOROthiazide 25 MG TAB PO SCH (09:00)
[2021-08-29] MEDS ORDERED: LORATADINE 10 MG TAB PO SCH (09:00)
[2021-08-29] MEDS ORDERED: FOLIC ACID 400 MCG TAB PO SCH (09:00)
[2021-08-29] MEDS ORDERED: MIRABEGRON ER 25 MG TAB PO SCH (09:00)
--- NOTE | 2021-08-29 10:04 | Cardiology Progress Note ---
Date of Service August 29, 2021 Assessment & Plan (1) Chest pain: (2) Uncontrolled hypertension: (3) Aortic stenosis: (4) Hiatal hernia: (5) CAD (coronary artery disease): (6) Bicuspid aortic valve: (7) Atrial flutter, paroxysmal: Plan: 66-year-old female with history of 50% ostial LAD stenosis, possible bicuspid aortic valve with moderate stenosis presents with chest discomfort. Symptoms have resolved. No evidence of acute coronary syndrome. Echocardiogram demonstrating normal wall motion and stable, moderate aortic valve stenosis. Recent dobutamine stress echo performed January 2021 without evidence of ischemia. D-dimer not significantly elevated. She is chronically anticoagulated with Eliquis due to history of paroxysmal atrial flutter. Recommend addition of hydrochlorothiazide for treatment of uncontrolled hypertension. Repeat basic metabolic panel in 1 week. Restart Eliquis 5 mg twice daily. Consider gastroenterology evaluation regarding hiatal hernia. Outpatient cardiology follow-up in 1-2 weeks. Thank you for allow me to partic ipate in the care of your patient. Admission and Anticipated Discharge Date Admission Date: August 28, 2021 Subjective Patient seen and examined at the bedside. No recurrent chest discomfort overnight. High-sensitivity troponin not elevated. ECG without ischemic changes. Bedside 2D transthoracic echocardiogram reveals normal wall motion, preserved LV systolic function, stable, moderate aortic valve stenosis. Blood pressure elevated since admission. Patient requesting discharge. She would like to return home to take care of her dog. Review of Systems Review of Systems: All systems reviewed & are unremarkable except as noted in Subjective Physical Exam Constitutional: + morbidly obese; no acute distress Respiratory: no respiratory distress, no labored breathing and no retractions Cardiovascular: Rate/Rhythm: regular rate and regular rhythm Heart Sounds: normal S1, normal S2 and + murmur (3/6 mid peaking GA) Vessels: no JVD Extremities: no edema Gastrointestinal (Abdomen): Inspection/Auscultation: abdomen normal to inspection and normal bowel sounds; abdomen not distended Percussion/Palpation: abdomen soft; abdomen nontender and no guarding Neurologic: CN's II-XI intact bilaterally and moves all extremities Psychiatric: Orientation: alert and oriented x 3 Results & Data ([facility]) Vital Signs (Past 12 Hours) Vital Signs Temp Pulse Pulse Resp BP Pulse Ox 08/29/21 07:08 68 08/29/21 06:34 36.3 C L 68 20 176/96 H 94 08/29/21 02:39 36.4 C L 66 18 176/66 H 92 08/28/21 22:32 36.6 C 72 18 158/84 H 95 (1) Aortic stenosis Cardiac valve disease etiology: nonrheumatic Qualified Code(s): I35.0 - Nonrheumatic aortic (valve) stenosis (2) Chest pain Chest pain type: unspecified Qualified Code(s): R07.9 - Chest pain, unspecified
--- NOTE | 2021-08-29 12:16 | Electrocardiogram Report ---
Test Reason : Blood Pressure : / mmHG Vent. Rate : 086 BPM Atrial Rate : 086 BPM P-R Int : 168 ms QRS Dur : 072 ms QT Int : 424 ms P-R-T Axes : 057 -19 012 degrees QTc Int : 507 ms Normal sinus rhythm Possible Left atrial enlargement Left ventricular hypertrophy Abnormal ECG When compared with ECG of 12-MAR-2021 20:00, T wave inversion now evident in Anterior leads QT has lengthened Confirmed by Reinaldo Bermeo ([id number]) on 08/29/2021 12:16:07 PM Referred By: REFERRED SELF Confirmed By:Chucho Bermeo
--- NOTE | 2021-08-29 13:23 | Discharge Summary ---
Date of Service August 29, 2021 Admission HPI Per Admitting Provider Patient is a 66 yo female with a complicated medical history including HTN, Atrial flutter, IBS, Morbid obesity, CKD stage 3, spinal stenosis of L spine, and who presented to the ED today via EMS for chest pain. Her initial pain was >10/10 pain and into her left arm. This started while she was watching TV at home. She had just gotten off of the phone with the [facility] and was told her dog has DM. The pain is sharp and was radiating into the left arm. No palpitations, sweats at the time, but she had some mild nausea. She was given 2 doses of Nitro en route to the hospital that helped her pain slightly. She does have a headache today after she was given ASA and nitro in the ambulance. She felt slightly dizzy when the pain started at home. She has had some mild abdominal pain for a long time secondary to IBS. No dysuria, but she does have urinary retention chronically She is currently having a lot of back pain which is chronic. She was previously on Oxycodone but this was stopped until she can see her PCP. She just started using medical marijuana 4 times daily for the past 2 days. Since admission, initial troponin within normal. EKG unremarkable. CXR negative. Outpatient cardiology record notes that patient has chronic coronary artery disease with 50% ostial LAD stenosis per catheterization November 07, 2016. She had a dobutamine stress echo in 01/2021 which was negative for inducible ischemia. She had family history of both father and mother having NY's. She notes that she does also use Nystatin PRN for intertrigo. Admission Exam Per Admitting Provider GENERAL: Alert and oriented x3. mild distress d/t low back pain, on RA. Morbidly obese HEENT: No pallor, no icterus. Pupils equal, round and reactive to light. Oral mucosa moist. NECK: No JVD, no neck masses. HEART: S1 and S2 heard. Regular rate and rhythm. No murmur, no gallop. RESPIRATORY SYSTEM: Normal AP diameter. No accessory muscle use. No wheezing, no crackles. ABDOMEN: Soft, bowel sounds present, nontender, no distention. Intertrigo rash along abd fold reaching beyond flanks bilaterally. CENTRAL NERVOUS SYSTEM: No facial droop. Speech is clear. Obeys simple commands. Moves extremities. EXTREMITIES: No edema, no erythema seen. Principal Diagnosis Chest pain Poorly controlled hypertension Discharge Exam GENERAL: Alert and oriented x3. on RA. Morbidly obese HEENT: No pallor, no icterus. Pupils equal, round and reactive to light. EOMI. Oral mucosa moist. NECK: No JVD, no neck masses. HEART: S1 and S2 heard. Regular rate and rhythm. +murmur, no gallop. RESPIRATORY SYSTEM: Normal AP diameter. No accessory muscle use. No wheezing, no crackles. ABDOMEN: Soft, bowel sounds present, nontender, no distention. Intertrigo rash along abd fold reaching beyond flanks bilaterally. CENTRAL NERVOUS SYSTEM: No facial droop. Speech is clear. Obeys simple commands. Moves extremities. EXTREMITIES: No edema, no erythema seen. Discharge Data Allergies Allergy/AdvReac Type Severity Reaction Status Date / Time egg AdvReac Intermediate GI upset Verified 08/28/21 15:16 ibuprofen AdvReac Mild stomach Verified 08/28/21 15:16 irritation morphine AdvReac LEGS SWELL Verified 08/28/21 15:17 Consultations 08/28/21 13:50 ED Decision to Admit Stat 08/28/21 14:23 Consult Cardiology Routine Hospital Course (1) Chest pain: (2) CAD (coronary artery disease): (3) Hypertension: (4) Atrial flutter, paroxysmal: Patient presented to the ED via EMS for chest pain. Initial workup in the ED negative, but admit for caridac rule out due to strong family history and personal hx of CAD. Admitted to [facility] for continued cardiac monitoring. Patient notes that she is DNR. Consult Cardiology- Dr. Torres troponin negative Echo obtained Compared to dobutamine stress echo performed January 2021, there is no significant change. EF 66 5%. There is moderate concentric LVH. Aortic valve is moderately calcified and possibly bicuspid. Moderate valvular aortic stenosis. Trace aortic regurg Continue Eliquis, ASA 81 mg daily, Metoprolol, lisinopril Added HCTZ for uncontrolled hypertension Follow-up with cardiology in 1 to 2 weeks. Consider evaluation by GI for hiatal hernia. (5) Dyslipidemia: Continue statin (6) GERD (gastroesophageal reflux disease): Continue PPI (7) Stage 3 chronic kidney disease: Stable. Monitor (8) Chronic low back pain: Chronic low back pain with lumbar radiculopathy. Will continue oxycodone PRN (9) [place] intertrigo: Severe intertrigo of the anterior and posterior skin folds. Severe erythema and large surface area. Recommended application of clotrimazole cream BID (10) DVT prophylaxis: Continue home Eliquis By CMS guidelines, a determination that the admission or continued stay is not medically necessary has been made by a member of the UR committee and a physician for this hospital stay, therefore a Code 44 will be completed and the Inpatient admission will be changed to outpatient. Total Time Total Time Spent Total Time Spent (In Minutes): 40 Discharge Plan Discharge Items Patient Disposition: Home - Self-Care Reason For Visit: CHEST PAIN Discharge Diagnosis: Chest pain Poorly controlled hypertension Activity: Per Instructions section Non-emergency contact: Primary Care Provider and Dental Nurse Call non-emergency contact if: you have any medication questions and your symptoms worsen Follow-up/Referrals: Nikunj Plascencia MD [Primary Care Provider] - Diet: Heart Healthy Addtl Attending Provider Instructions: Follow-up with your primary care provider and mammalogy teacher, within 1 to 2 weeks. If you are able to, monitor your blood pressure at home. Start taking new medication, hydrochlorothiazide, for uncontrolled blood pressure. You may also need evaluation with gastroenterology, for your hiatal hernia. Discuss this with your primary care doctor. Pending Studies at Discharge: No Stand-Alone Forms: My [facility], Smoking Cessation Medications and DC Order Prescriptions: New hydrochlorothiazide 25 mg Tablet 25 mg PO QAM Qty: 30 RF: 0 clotrimazole 1 % Cream 1 applic EXT BID Qty: 45 RF: 0 Continued buspirone 10 mg tablet 20 mg PO BID RF: 0 atorvastatin 80 mg tablet 80 mg PO QPM RF: 0 cyanocobalamin (vitamin B-12) [Vitamin B-12] 1,000 mcg Tablet 1,000 mcg PO QAM RF: 0 gabapentin [Neurontin] 300 mg Capsule 600 mg PO AMHS RF: 0 loratadine 10 mg Tablet 10 mg PO QAM RF: 0 folic acid 800 mcg Tablet 0.8 mg PO QAM RF: 0 cholecalciferol (vitamin D3) [Vitamin D3] 1,000 unit Tablet 2,000 unit PO QAM RF: 0 [place] 3-6-9 1,200 mg Capsule 1 cap PO QAM RF: 0 docusate sodium [Colace] 100 mg capsule 100 mg PO BID RF: 0 tizanidine 4 mg tablet 4 mg PO Q6H PRN (Reason: Muscle Spasm) RF: 0 ascorbic acid (vitamin C) 250 mg Tablet 250 mg PO QAM RF: 0 nitroglycerin 0.4 mg Tablet, Sublingual 0.4 mg sublingual UD PRN (Reason: Chest Pain) RF: 0 duloxetine [Cymbalta] 60 mg capsule,delayed release(DR/EC) 60 mg PO BID RF: 0 albuterol sulfate 90 mcg/actuation HFA aerosol inhaler 2 puff INHALATION QID PRN (Reason: Shortness Of Breath Or Wheezing) RF: 0 lisinopril 10 mg tablet 10 mg PO HS RF: 0 metoprolol succinate 50 mg tablet extended release 24 hr 25 mg PO BID RF: 0 omeprazole 40 mg capsule,delayed release(DR/EC) 40 mg PO QAM RF: 0 ondansetron 4 mg tablet,disintegrating 4 mg PO Q6H PRN (Reason: nausea and vomiting) Qty: 15 RF: 0 Eliquis 5 mg tablet 5 mg PO BID RF: 0 trazodone 100 mg tablet 300 mg PO HS RF: 0 doxycycline monohydrate 100 mg capsule 100 mg PO Q OTHER DAY RF: 0 oxycodone 5 mg capsule 10 - 15 mg PO Q4 PRN (Reason: Pain) RF: 0 sumatriptan succinate 25 mg tablet 50 mg PO DIRECTED PRN (Reason: Migraine Headache) RF: 0 dicyclomine 10 mg Capsule 10 mg PO BID RF: 0 famotidine [Pepcid] 20 mg tablet 20 mg PO QAM RF: 0 Myrbetriq 25 mg tablet extended release 24 hr 25 mg PO QAM RF: 0 Discharge Orders: Discharge Order (Routine); Ordered 08/29/21 Ordered By: Davin Evans Admission Data Admit Date/Time: 08/28/21 14:31 Attending Provider: Davin Evans Admit Provider: Jyotsna Garcia Primary Care Provider: Nikunj Plascencia Other Providers: Jyotsna Garcia ; Fernando Torres
--- NOTE | 2021-08-29 16:41 | Communication Note ---
Date of Service: August 29, 2021 Code 44 attestation; Silvia Dent, 66-year-old female with CAD and admitted with chest pain. Subsequently she was ruled out for any ACS and was evaluated by marketing analytics manager. She was appropriately managed by the attending physician. She was discharged home in the good medical condition. By CMS guidelines, a determination that the admission or continued stay is not medically necessary has been made by a member of the UR committee and a physician for this hospital stay, therefore a Code 44 will be completed and the Inpatient admission will be changed to outpatient. Dr Geetha Anthony Member UR Committee
[2021-08-30] MEDS ORDERED: DOXYCYCLINE HYCLATE 100 MG CAP PO SCH (09:00)
== END 2021-08-29 14:04 | disposition home or self-care (01) | DRG 683 ==
LOC: ED 11:44 → INTOOBSV 14:31 → SUATTDRO 14:31 → 2N 14:31

== ENCOUNTER 2022-06-05 12:52 | Observation (INO) ==
[2022-06-05] MEDS ORDERED: OXYMETAZOLINE 0.05% 30 ML BTL ONE (13:31)
[2022-06-05] MEDS ORDERED: SILVER NITR/POTASSIUM NITRATE APPLICATOR ONE (13:34)
--- NOTE | 2022-06-05 15:10 | Emergency Department Note ---
Impression & Plan Acute anterior epistaxis, Chest pain ED Provider Note INFORMANT: Patient ED PROVIDER(S): Ernesto Payne MD CHIEF COMPLAINT: Nosebleed PLAN: Disposition: Still patient Condition: Good Outpatient prescription management: Ana Hailey Referral: [facility] MEDICAL DECISION MAKING: Patient presented to the ER because of bleeding. Physical examination revealed her pre-existing septal perforation and anterior epistaxis from and inferior arterial bleed that was on the saddle of the septal perforation. The nares were cleared via suction and I was able to obtain hemostasis as noted in the procedure note below. Patient was monitored. She did very well and I discussed conservative management and ENT referral to [facility]. The patient felt comfortable with the plan. She then was discharged but unfortunately started to bleed before she left the hospital. She returned back to her examination room. I reevaluated her. I did consult with ENT, Dr. Puente. She recommended topical epi and would help evaluate the patient. She did present to the emergency department and was already working on the patient. I did remove the fibrillar and was applying topical epinephrine with a cotton tip applicator. I was able to get the bleeding to slow down significantly. We did obtain Gelfoam and she applied epinephrine and packed the saddle of the perforation. She then packed the area and hemostasis was achieved. She plans to have the patient referred to [facility] for specialty management due to the perforation and complicated nature of its treatment. She recommended monitoring the patient for any additional bleeding for at least an hour and then discharge for her office to follow-up and coordinate outpatient care. Prior to the patient's observation period ending she developed chest pain. ECG was normal sinus rhythm. Laboratory testing was ordered. She was given 1/2 inch of Nitropaste. On reassessment her discomfort was improved. Further management in the hospital will be necessary once her blood work is done. Patient's case was signed out to Dr. Beard at the change of shift. Please see his note as well as ENT notes for further details. After review of the information above and other included data, I feel the patient can be managed as an outpatient as long as hemostasis is maintained. Triage Nursing notes reviewed and agree them. Vital Signs: reviewed and remarkable for no significant abnormalities Prior /Outside records reviewed: Prior ED visits reviewed. Differential diagnosis: Anterior epistaxis, coagulopathy, traumatic injury, fracture, septal hematoma, posterior epistaxis, infections, as well as other pathologies. Diagnostics, as interpreted by me: EC Lead ECG performed and revealed Normal sinus rhythm at 64, normal [place], QRS normal. No elevation or depression. No PACs or PVCs Cardiac Monitoring: none Medical decision rules: none Imaging studies: Deferred HPI: The patient is a 67year old female who presents to the Emergency Room with complaints of nosebleed. This started last night and is a recurrent problem for her. The patient states that she suffered a septal perforation years ago. She has had nosebleeds from time to time. She was recently treated in the ER and required packing. Patient does take Eliquis daily but did not take her Eliquis today secondary to the nosebleeding. The patient also notes the following associated symptoms, none. The patient has found no relieving factors. Pt denies LOC, headache, fevers, chills, diaphoresis, visual changes, neck pain, chest pain, breathing difficulties, nausea, vomiting, abdominal pain, back pain, melena, hematochezia, urinary symptoms, numbness, weakness, lymphadenopathy, rash, or other complaints. PAST MEDICAL HISTORY: See Below, atrial fibrillation, septal perforation PAST SURGICAL HISTORY: See Below, SOCIAL HISTORY: See Below, former smoker HOME MEDICATIONS: See Below ALLERGIES: See Below VITALS: See Below PHYSICAL EXAMINATION: GENERAL: Awake, alert, well-appearing, in no distress HENT: Normocephalic, atraumatic. Oropharynx unremarkable. Nose examination reveals clotted blood bilaterally. After removal there is an active bleeding source present on the saddle of a old appearing septal perforation. EYES: Normal conjunctiva. Sclera non-icteric. NECK: Inspection normal. Non-tender. Supple. No nuchal rigidity. FROM. No masses. RESPIRATORY: Clear to auscultation. No wheezes. No rales. Normal respiratory effort. CARDIAC: Normal rate. Normal rhythm. No murmurs. No rubs. Extremities warm and well perfused. Pulses equal. No JVD. NEURO: Normal sensorium. No sensory or motor deficits noted. SKIN: No rash or jaundice noted. ANTERIOR NASAL CAUTERY: Verbal consent obtained. Risks include bleeding, infection, vessel injury, scarring, pain, septal perforation, as well as others were explained. The nasal passage was prepped with Afrin. Suctioning was performed. The bleeding source was directly visualized utilizing an otoscope and Bro tip suction. Silver nitrate was applied in standard fashion. Hemostasis achieved. Fibrillar hemostatic agent applied for additional coverage. The patient was observed. No additional bleeding. No complications. Patient was educated and pleased with the treatment. Past Med/Surg History Medical History A-fib "i think i have a-fib." -- on eliquis -- follows with Dr. Torres Acute urinary retention Anemia Anxiety and depression Aortic stenosis Mild (per cardiology review) aortic stenosis with possible bicuspid aortic valve (MG 19mmhg, NIKKIE 3.0) per 05/2018 ECHO Atrial flutter, paroxysmal Back pain Borderline diabetes mellitus Bullous pemphigoid CAD (coronary artery disease) non-obstructive Cardiac murmur Carotid artery stenosis "mild" Chronic back pain Chronic low back pain COVID-19 GERD (gastroesophageal reflux disease) controlled High cholesterol History of COVID-19 02/2020; generalized weakness, diarrhea, sob, fever, body aches; hospitalized x 1 week; c/o ongoing brain fog since having covid History of skin cancer History of TIA (transient ischemic attack) 2017 Hx of falling last fall 09/2018- per patient, related to LBP/balance issues- ? r/t ambulatory dysfunction- improved with cane/walker use Hypertension IBS (irritable bowel syndrome) Morbid obesity BMI 50.5 Nocturia Nose septum perforation Osteoporosis Renal failure Sacroiliitis Stage 3 chronic kidney disease Verbalizes suicidal thoughts Surgical History History of appendectomy History of back surgery History of cardiac cath 2017= NO STENTS History of kyphoplasty History of right cataract extraction History of right knee joint replacement Hx of laparoscopy S/P epidural steroid injection Family History Father Stroke Slow to wake up after anesthesia Myocardial infarction, Onset Age: 40 Mother Stroke Myocardial infarction, Onset Age: 60 Sister Myocardial infarction, Onset Age: 60 Social History Smoking Status: Former smoker Tobacco Type: Cigarettes Second Hand Exposure: No; Hx Alcohol Use: No Hx Substance Use: Yes (Medical marijuana) Prescribed Medications: Marijuana Preferred Language: Palauan Communication Ability: Effective Visual Impairment: No Limitations Hearing Ability: Normal Vault Maker Required: No Beliefs That Will Affect Care: Judaism Judaism Beliefs: BAPTISM marital status: Single Current Living Situation: Parent Current Living Situation Comment: lives with mother and sister current occupational status: unemployed and disabled Feels Safe at Home: Yes Assistive Devices: Glasses Allergies Allergies Allergy/AdvReac Type Severity Reaction Status Date / Time egg AdvReac Intermediate GI upset Verified 06/05/22 16:20 ibuprofen AdvReac Intermediate stomach Verified 06/05/22 16:20 irritation morphine AdvReac Intermediate LEGS SWELL Verified 06/05/22 16:20 Home Meds Home Medications Medication Instructions Recorded Confirmed atorvastatin 80 mg tablet 80 mg PO QPM 06/16/18 06/05/22 cholecalciferol (vitamin D3) 25 1,000 unit PO QAM 06/16/18 06/05/22 mcg (1,000 unit) tablet (Vitamin D3) cyanocobalamin (vitamin B-12) 1,000 mcg PO QAM 06/16/18 06/05/22 1,000 mcg tablet (Vitamin B-12) fish, borage, flaxseed oils-omega 1 cap PO QAM 06/16/18 06/05/22 3,6,9 comb no.1 1,200 mg capsule ([place] 3-6-9) folic acid 800 mcg tablet 0.8 mg PO QAM 06/16/18 06/05/22 ascorbic acid (vitamin C) 250 mg 250 mg PO QAM 12/13/19 06/05/22 tablet docusate sodium 100 mg capsule 100 mg PO BID 12/13/19 06/05/22 (Colace) duloxetine 60 mg capsule,delayed 60 mg PO DAILY 03/16/20 06/05/22 release (Cymbalta) lisinopril 10 mg tablet 10 mg PO HS 03/16/20 06/05/22 metoprolol succinate 50 mg 25 mg PO BID 03/16/20 06/05/22 tablet,extended release 24 hr apixaban 5 mg tablet (Eliquis) 5 mg PO BID 03/12/21 06/05/22 buspirone 10 mg tablet 10 mg PO BID 06/23/21 06/05/22 sumatriptan succinate 25 mg tablet 25 mg PO DIRECTED PRN Migraine 08/28/21 06/05/22 Headache trazodone 100 mg tablet 200 mg PO HS 08/28/21 06/05/22 betamethasone dipropionate 0.05 % 1 applic topical BID PRN RASH 03/01/22 06/05/22 topical ointment FACE/TRUNK/ARMS calcipotriene 0.005 % topical 1 applic topical BID PRN RASH 03/01/22 06/05/22 cream (Dovonex) FLARE UPS ON FACE/TRUNK/ARMS memantine 5 mg tablet 5 mg PO BID 03/01/22 06/05/22 oxybutynin chloride 5 mg 5 mg PO QPM 03/01/22 06/05/22 tablet,extended release 24 hr tacrolimus 0.1 % topical ointment 1 applic topical BID PRN AFFECTED 03/01/22 06/05/22 AREAS ON FACE clotrimazole 1 % topical cream 1 applic topical DIRECTED PRN 05/23/22 06/05/22 Itching diphenhydramine HCl 25 mg capsule 25 mg PO QAM 05/23/22 06/05/22 (Benadryl) pregabalin 50 mg capsule 50 mg PO BID 05/23/22 06/05/22 Previous Rx's Medication Instructions Recorded oxycodone 5 mg tablet 5 mg PO Q8H PRN pain #4 tabs 05/21/22 Results & Data (ED) Vital Signs Vital Signs - 24 hr 06/05/22 12:55 06/05/22 15:11 06/05/22 17:34 Temperature 36.7 C Temperature Source Temporal Artery Scan Pulse Rate 78 59 L Pulse Rate [Finger] 65 Respiratory Rate 18 18 Respiratory Depth Normal Blood Pressure 143/80 H Blood Pressure [Right Arm] 156/87 H Blood Pressure Mean 101 Blood Pressure Mean [Right Arm] 110 Pulse Oximetry 98 98 Oxygen Delivery Method Room Air Room Air Sepsis Recent Fever Within 48 Hours No Sepsis New/Unexplained Change in Mental Status No Sepsis Action Taken by Nursing No Action Required 06/05/22 17:41 Temperature Temperature Source Pulse Rate 64 Pulse Rate [Finger] Respiratory Rate Respiratory Depth Blood Pressure Blood Pressure [Right Arm] Blood Pressure Mean Blood Pressure Mean [Right Arm] Pulse Oximetry 97 Oxygen Delivery Method Room Air Sepsis Recent Fever Within 48 Hours Sepsis New/Unexplained Change in Mental Status Sepsis Action Taken by Nursing Administered Medications Discontinued Medications Epinephrine HCl (Epinephrine Inj 1 Mg/Ml Amp) Confirm Administered Dose 1 mg .ROUTE .STK-MED ONE Stop: 06/05/22 16:17 Last Admin: 06/05/22 16:20 Dose: 1 mg Documented By: JADE Gelatin (Gelatin Sponge 12-7mm) Confirm Administered Dose 1 each .ROUTE .STK-MED ONE Stop: 06/05/22 16:30 Last Admin: 06/05/22 16:36 Dose: 1 each Documented By: JADE Oxymetazoline HCl (Oxymetazoline 0.05% 30 Ml Btl) Confirm Administered Dose 150 sprays .ROUTE .STK-MED ONE Stop: 06/05/22 13:32 Last Admin: 06/05/22 13:59 Dose: 150 sprays Documented By: ANDERS Silver Nitrate/Potassium Nitrate (Silver Nitr/Potassium Nitrate Applicator) Confirm Administered Dose 1 appl .ROUTE .STK-MED ONE Stop: 06/05/22 13:35 Last Admin: 06/05/22 14:00 Dose: 1 appl Documented By: ANDERS Discharge Plan Visit Data Chief Complaint: Nose Bleed (Minor) Stated Complaint: NOSEBLEED ED Provider: Ernesto Payne Discharge Problem: Acute anterior epistaxis, Chest pain Patient Disposition: Home - Self-Care Discharge Instructions Activity Restrictions/Additional Instructions: EPISTAXIS (NOSE BLEED) INSTRUCTIONS: Avoid scratching, rubbing, picking, or blowing your nose. The short goods drier your nasal passages the more likely they are to bleed. [place] nasal spray or similar generic saline spray to keep the nose moist 3 to 4 times a day. If bleeding recurs apply 2 sprays of Afrin and direct pressure for an uninterrupted 20 minutes with the nasal clip. On and off pressure is much less effective because it will disturb the clots that are forming. If the bleeding i s still a problem after 20 minutes or is so heavy despite the pressure return to the emergency department. Continue current medications. Follow-up with your primary care physician in 2 to 3 days for a recheck of your current condition and discuss [facility] referral. Seek emergency care for bleeding that does not stop, difficulty breathing, fevers, nasal swelling, or as needed. Forms Stand Alone Forms: [facility], [facility] Emergency Department, Important Visit Information Prescriptions Prescriptions: No Action buspirone 10 mg tablet 10 mg PO BID atorvastatin 80 mg tablet 80 mg PO QPM cyanocobalamin (vitamin B-12) [Vitamin B-12] 1,000 mcg Tablet 1,000 mcg PO QAM folic acid 800 mcg Tablet 0.8 mg PO QAM cholecalciferol (vitamin D3) [Vitamin D3] 1,000 unit Tablet 1,000 unit PO QAM [place] 3-6-9 1,200 mg Capsule 1 cap PO QAM Rx Instructions: FORMULA HAS GREEN TEA docusate sodium [Colace] 100 mg capsule 100 mg PO BID ascorbic acid (vitamin C) 250 mg Tablet 250 mg PO QAM duloxetine [Cymbalta] 60 mg capsule,delayed release(DR/EC) 60 mg PO DAILY lisinopril 10 mg tablet 10 mg PO HS metoprolol succinate 50 mg tablet extended release 24 hr 25 mg PO BID Eliquis 5 mg tablet 5 mg PO BID trazodone 100 mg tablet 200 mg PO HS sumatriptan succinate 25 mg tablet 25 mg PO DIRECTED MDD 5 TABS/24 HOURS PRN (Reason: Migraine Headache) Rx Instructions: TAKE 50 MG AT ONSET OF SUE, THEN MAY REPEAT WITH 25 MG EVERY 2 HOURS NEEDED. MAX 5 TABS IN 24 HOURS. diphenhydramine HCl [Benadryl] 25 mg Capsule 25 mg PO QAM clotrimazole [Lotrimin] 1 % Cream 1 applic TOPICAL DIRECTED PRN (Reason: Itching) pregabalin 50 mg capsule 50 mg PO BID tacrolimus 0.1 % Ointment 1 applic TOPICAL BID PRN (Reason: AFFECTED AREAS ON FACE) calcipotriene [Dovonex] 0.005 % Cream 1 applic TOPICAL BID PRN (Reason: RASH FLARE UPS ON FACE/TRUNK/ARMS) Rx Instructions: rub in gently and completely oxybutynin chloride 5 mg tablet extended release 24hr 5 mg PO QPM betamethasone dipropionate 0.05 % Ointment 1 applic TOPICAL BID PRN (Reason: RASH FACE/TRUNK/ARMS) memantine 5 mg Tablet 5 mg PO BID oxycodone 5 mg tablet 5 mg PO Q8H PRN (Reason: pain) Qty: 4 0RF Rx Instructions: For initial treatment Referrals Referrals: Nikunj Plascencia MD [Primary Care Provider] - Bibiana Puente MD [Surgeon] -
[2022-06-05] MEDS ORDERED: EPINEPHrine INJ 1 MG/ML AMP ONE (16:16)
[2022-06-05] MEDS ORDERED: GELATIN SPONGE 12-7MM ONE (16:29)
--- NOTE | 2022-06-05 16:44 | ENT Consultation ---
Date of Consultation June 05, 2022 Assessment & Plan (1) Acute anterior epistaxis: Would recommend f/u with Dr. Lopez in [place] for her perforation. Will arrange for my office to contact Dr. Lopez's office tomorrow. In meantime should use saline spray and vaseline 4x day. Will send in RX for marine geranium oil. Should hold blood thinner for 5 days if possible. Make sure BP controlled. If after above intervention bleeding restarts, can attempt Merocel placement, but patient would most likely require transfer to [place]. History of Present Illness Reason for Consultation: Epistaxis from septal perforation while on blood thinner History of Present Illness See ED note Allergies Allergy/AdvReac Type Severity Reaction Status Date / Time egg AdvReac Intermediate GI upset Verified 06/05/22 16:20 ibuprofen AdvReac Intermediate stomach Verified 06/05/22 16:20 irritation morphine AdvReac Intermediate LEGS SWELL Verified 06/05/22 16:20 Home Medications Medication Instructions Recorded Confirmed Type atorvastatin 80 mg tablet 80 mg PO QPM 06/16/18 06/05/22 History cholecalciferol (vitamin D3) 25 1,000 unit PO QAM 06/16/18 06/05/22 History mcg (1,000 unit) tablet (Vitamin D3) cyanocobalamin (vitamin B-12) 1,000 mcg PO QAM 06/16/18 06/05/22 History 1,000 mcg tablet (Vitamin B-12) fish, borage, flaxseed oils-omega 1 cap PO QAM 06/16/18 06/05/22 History 3,6,9 comb no.1 1,200 mg capsule ([place] 3-6-9) folic acid 800 mcg tablet 0.8 mg PO QAM 06/16/18 06/05/22 History ascorbic acid (vitamin C) 250 mg 250 mg PO QAM 12/13/19 06/05/22 History tablet docusate sodium 100 mg capsule 100 mg PO BID 12/13/19 06/05/22 History (Colace) duloxetine 60 mg capsule,delayed 60 mg PO DAILY 03/16/20 06/05/22 History release (Cymbalta) lisinopril 10 mg tablet 10 mg PO HS 03/16/20 06/05/22 History metoprolol succinate 50 mg 25 mg PO BID 03/16/20 06/05/22 History tablet,extended release 24 hr apixaban 5 mg tablet (Eliquis) 5 mg PO BID 03/12/21 06/05/22 History buspirone 10 mg tablet 10 mg PO BID 06/23/21 06/05/22 History sumatriptan succinate 25 mg tablet 25 mg PO DIRECTED PRN Migraine 08/28/21 06/05/22 History Headache trazodone 100 mg tablet 200 mg PO HS 08/28/21 06/05/22 History betamethasone dipropionate 0.05 % 1 applic topical BID PRN RASH 03/01/22 06/05/22 History topical ointment FACE/TRUNK/ARMS calcipotriene 0.005 % topical 1 applic topical BID PRN RASH 03/01/22 06/05/22 History cream (Dovonex) FLARE UPS ON FACE/TRUNK/ARMS memantine 5 mg tablet 5 mg PO BID 03/01/22 06/05/22 History oxybutynin chloride 5 mg 5 mg PO QPM 03/01/22 06/05/22 History tablet,extended release 24 hr tacrolimus 0.1 % topical ointment 1 applic topical BID PRN AFFECTED 03/01/22 06/05/22 History AREAS ON FACE oxycodone 5 mg tablet 5 mg PO Q8H PRN pain #4 tabs 05/21/22 06/05/22 Rx clotrimazole 1 % topical cream 1 applic topical DIRECTED PRN 05/23/22 06/05/22 History Itching diphenhydramine HCl 25 mg capsule 25 mg PO QAM 05/23/22 06/05/22 History (Benadryl) pregabalin 50 mg capsule 50 mg PO BID 05/23/22 06/05/22 History Patient History Medical History A-fib "i think i have a-fib." -- on eliquis -- follows with Dr. Torres Acute urinary retention Anemia Anxiety and depression Aortic stenosis Mild (per cardiology review) aortic stenosis with possible bicuspid aortic valve (MG 19mmhg, NIKKIE 3.0) per 05/2018 ECHO Atrial flutter, paroxysmal Back pain Borderline diabetes mellitus Bullous pemphigoid CAD (coronary artery disease) non-obstructive Cardiac murmur Carotid artery stenosis "mild" Chronic back pain Chronic low back pain COVID-19 GERD (gastroesophageal reflux disease) controlled High cholesterol History of COVID-19 02/2020; generalized weakness, diarrhea, sob, fever, body aches; hospitalized x 1 week; c/o ongoing brain fog since having covid History of skin cancer History of TIA (transient ischemic attack) 2016 Hx of falling last fall 09/2018- per patient, related to LBP/balance issues- ? r/t ambulatory dysfunction- improved with cane/walker use Hypertension IBS (irritable bowel syndrome) Morbid obesity BMI 50.5 Nocturia Nose septum perforation Osteoporosis Renal failure Sacroiliitis Stage 3 chronic kidney disease Verbalizes suicidal thoughts Surgical History History of appendectomy History of back surgery History of cardiac cath 2017= NO STENTS History of kyphoplasty History of right cataract extraction History of right knee joint replacement Hx of laparoscopy S/P epidural steroid injection Family History Father Stroke Slow to wake up after anesthesia Myocardial infarction, Onset Age: 40 Mother Stroke Myocardial infarction, Onset Age: 60 Sister Myocardial infarction, Onset Age: 60 Social History Smoking Status: Former smoker Tobacco Type: Cigarettes Second Hand Exposure: No; Hx Alcohol Use: No Hx Substance Use: Yes (Medical marijuana) Prescribed Medications: Marijuana Preferred Language: Greenlandic Communication Ability: Effective Visual Impairment: No Limitations Hearing Ability: Normal Surgical Specialist Required: No Beliefs That Will Affect Care: Evangelical Evangelical Beliefs: BUDDHISM marital status: Single Current Living Situation: Parent Current Living Situation Comment: lives with mother and sister current occupational status: unemployed and disabled Feels Safe at Home: Yes Assistive Devices: Glasses Review of Systems Review of Systems: as per HPI Physical Exam Physical Exam: Perforation of nasal septum visualized, >2cm in length. Procedure: Control of epistaxis 1:1000 Epinephrine on gelfoam applied for 10 minutes. Following this surgical wrapped fibrillar with bacitracin was applied. Patient tolerated procedure well. Results & Data Vital Signs (Past 12 Hours) Vital Signs Temp Pulse Pulse Resp BP BP Pulse Ox 06/05/22 15:11 65 18 156/87 H 98 06/05/22 12:55 36.7 C 78 18 143/80 H 98 O2 Del Method 06/05/22 15:11 Room Air 06/05/22 12:55 Room Air
[2022-06-05] MEDS ORDERED: NITROGLYCERIN 2% OINTMENT 30GM TUBE EXT STA (17:36)
[2022-06-05 18:14] LABS: Basophils # (auto) 0.04 K/uL (0-0.2); Basophils % (auto) 0.7 %; Eosinophils # (auto) 0.16 K/uL (0-0.50); Eosinophils % (auto) 2.9 %; Hematocrit (blood only) 31.7 % (37.0-47.0); Hemoglobin 9.9 g/dl (12.0-16.0); Immature Granulocytes # (auto) 0.01 K/uL (0.01-0.20); Immature Granulocytes % (auto) 0.2 %; Lymphocytes # (auto) 2.29 K/uL (1.2-3.4); Lymphocytes % (auto) 41.9 %; Mean Corpuscular Hemoglobin 31.6 pg (25.0-34.0); Mean Corpuscular Hgb Conc 31.2 g/dL (32.0-36.0); Mean Corpuscular Volume 101.3 fL (80.0-100.0); Monocytes # (auto) 0.92 K/uL (0.11-0.59); Monocytes % (auto) 16.8 %; Neutrophils # (auto) 2.04 K/uL (1.40-6.50); Neutrophils % (auto) 37.5 %; Platelet Count 163 K/uL (130-400); RDW Coefficient of Variation 12.6 % (11.5-14.5); RDW Standard Deviation 47.1 fL (36.4-46.3); Red Blood Count 3.13 M/uL (4.20-5.40); White Blood Count 5.46 K/ul (4.8-10.8)
[2022-06-05 18:31] LABS: Alanine Aminotransferase 13 U/L (7-52); Albumin Globulin Ratio 1.3 (0.9-2); Albumin Level 3.5 gm/dl (3.4-5.0); Alkaline Phosphatase 58 U/L (34-104); Anion Gap 3 (3-11); Aspartate Aminotransferase 21 U/L (13-39); BUN Creatinine Ratio 15.9 (10-20); Bilirubin,Total 0.4 mg/dl (0.2-1.0); Blood Urea Nitrogen 20 mg/dl (6-23); Calcium 9.3 mg/dl (8.6-10.3); Carbon Dioxide 30 mmol/L (21-32); Chloride 105 mmol/L (98-107); Est GFR (African American) 51.8 ml/min; Est GFR (Non-African American) 44.7 ml/min; Globulin 2.6 gm/dl (2.5-4.0); Glucose 92 mg/dl (70-99(Fasting)); Lipase 14 U/L (11-82); Potassium 4.3 mmol/L (3.5-5.1); Sodium 138 mmol/L (136-145); Total Protein 6.1 gm/dl (6.0-8.3)
[2022-06-05 18:40] LABS: Troponin I High Sensitivity 9.6 pg/ml (0-14)
--- NOTE | 2022-06-05 19:36 | XRay Report ---
SINGLE VIEW CHEST CLINICAL HISTORY: Atypical chest pain FINDINGS: An AP, portable, upright chest radiograph is compared to study dated 05/23/2022 and correlate d with chest CT dated 05/13/2022. The heart is mildly enlarged noting atherosclerotic calcification of the thoracic aorta. The pulmonary vasculature is noncongested. Chronic interstitial thickening is si milar to previous. There is bibasilar scarring/atelectasis. No airspace consolidation or large pleura l effusion is identified. No pneumothorax is seen. The skeletal structures are osteopenic. The bony t horax is grossly intact. Arthritic change is seen in the shoulders. Superior subluxation of the humer al heads suggests chronic bilateral rotator cuff injury. IMPRESSION: Cardiomegaly with no active disease in the chest. ACT 112: Negative or not required by law. Electronically signed by: Jonah Farris M.D. 06/05/2022 7:35 PM
--- NOTE | 2022-06-05 19:38 | Emergency Department Note ---
ED Visit Note Patient was signed out to me awaiting test results for chest pain work-up. The blood work did not show any concerning anemia or electrolyte abnormality. Troponin did not show myocardial infarction or myocarditis. She did receive nitroglycerin. On reassessment the patient is not having pain. She only reports feeling hungry and would like something to eat. I spoke with Dr. Cheng who who is going to see the patient for observation. .
[2022-06-05] MEDS ORDERED: SUMAtriptan succinate 25 MG TAB PO PRN (23:58)
[2022-06-05] MEDS ORDERED: ACETAMINOPHEN 325 MG TAB PO PRN (23:58)
[2022-06-05] MEDS ORDERED: oxyCODONE HCL IR 5 MG TAB (IMMEDIATE RELEASE) PO PRN (23:58)
[2022-06-05] MEDS ORDERED: CLOTRIMAZOLE 1% CR 15 GM TUBE TOP PRN (23:58)
[2022-06-05] MEDS ORDERED: lisinopril 10 MG TAB PO SCH (23:58)
[2022-06-05] MEDS ORDERED: NITROGLYCERIN SL 0.4 MG/TAB TAB SL PRN (23:58)
[2022-06-05] MEDS ORDERED: traZODone HCL 100 MG TAB PO SCH (23:58)
[2022-06-05] MEDS ORDERED: POLYETHYLENE (MIRALAX) 17 GM PACK PO PRN (23:58)
[2022-06-05] MEDS ORDERED: ATORVASTATIN 40 MG TAB PO SCH (23:58)
[2022-06-06] MEDS: SODIUM CHLORIDE 0.65% NA SOLN 45 ML (OCEAN) SCH ×2 (01:18→05:36)
[2022-06-06] MEDS: METOPROLOL SUCC 25MG EXT REL TAB PO SCH ×2 (01:19→07:34)
[2022-06-06] MEDS: busPIRone 5 MG TAB PO SCH ×2 (01:20→07:34)
[2022-06-06] MEDS: PREGABALIN 50 MG CAP PO SCH ×2 (01:24→07:38)
--- NOTE | 2022-06-06 02:01 | History and Physical Report ---
DATE OF ADMISSION: 06/05/2022. CHIEF COMPLAINT: Epistaxis and chest pain. HISTORY OF PRESENT ILLNESS: This is a 67-year-old female with past medical history significant for hyperlipidemia, paroxysmal atrial flutter, hypertension, bicuspid aortic valve, moderate aortic stenosis, morbid obesity, irritable bowel syndrome, GERD, stage III chronic kidney disease, senile osteoporosis, chronic insomnia, depression with anxiety, spinal stenosis of lumbar region. Came to the hospital because of nosebleed. ENT saw the patient. Initially, the patient came with epistaxis from the inferior arterial bleed, that was in the saddle of the septal perforation. Initially, bleeding was cleared by suction and she was planned to be discharged, but unfortunately started to bleed before she left the hospital and ENT was consulted and recommended topical epinephrine and the ENT also came to the hospital and evaluated the patient. Topical epinephrine was applied with a cotton tip applicator and the bleeding was signifcantly slowed down as per ER , and also ENT seems applied gelfoamwith epinephrine and packed the saddle of the perforation and hemostasis was achieved. ENT referred her to [facility] for specialty management due to the perforation and complicated nature of this treatment, and she was monitored in the hospital and as there was no bleeding, there was plan to discharge, but prior to observation period, she developed chest pain. She has severe chest pain. The patient says it is like pinching in her heart, was very severe and she was crying at that time, it lasted for half an hour, she was placed on nitroglycerin paste. After that, the pain comes and goes, but not as severe. Labs are okay. ENT also recommended if the bleeding restarts, can attempt Merocel placement, but recommended transfer to [place]. ENT also recommended to hold the blood thinner for 5 days if possible and make sure BP is controlled and also to use saline spray and Vaseline 4 times a day. Currently, resting comfortably, hemodynamically stable. Currently not much pain. Denies any shortness of breath, no nausea. Headache was there before coming to the hospital. Vision is not that great. No sore throat, no cough, no fevers. Appetite is okay. No nausea, no abdominal pain. Normal bowel and bladder movements. Ambulates with a cane. Lives with her sister. ALLERGIES: IBUPROFEN, MORPHINE. PAST MEDICAL HISTORY: As mentioned above. PAST SURGICAL HISTORY: Right knee arthroplasty, colonoscopy, right cardiac catheterization, EGDs, hysteroscopy, endometrial ablation, injection of the sacral spine. MEDICATIONS: The patient is on vitamin C 250 mg p.o. a.m., atorvastatin 80 mg p.o. p.m., buspirone 10 mg p.o. b.i.d., vitamin D 1000 mg p.o. a.m., ____ application p.r.n., vitamin B12 1000 mcg p.o. a.m., Benadryl 25 mg p.o. a.m., Colace 100 mg p.o. b.i.d., Cymbalta 60 mg p.o. daily, Eliquis 5 mg p.o. b.i.d., folic acid 0.8 mg p.o. a.m., lisinopril 10 mg p.o. at bedtime, memantine 5 mg p.o. b.i.d., metoprolol succinate 25 mg p.o. b.i.d., [place] fish oil 1 capsule p.o. daily, oxybutynin 5 mg p.o. p.m., oxycodone 5 mg p.o. q. 8 hours p.r.n., pregabalin 50 mg p.o. b.i.d., sumatriptan 25 mg p.o. p.r.n., tacrolimus topical b.i.d. p.r.n., trazodone 200 mg p.o. at bedtime. FAMILY HISTORY: Significant for mother has arthritis, uterine cancer, bypass, stroke; father with colon cancer, diabetes, heart disorder, hypertension, stroke; sister has thyroid disorder. SOCIAL HISTORY: Lives with sister. Quit smoking in 2008, smoked half pack a day for 30 years. No alcohol use. No drug use. REVIEW OF SYSTEMS: As per HPI. Rest of the review of systems is negative. PHYSICAL EXAMINATION: GENERAL: The patient is alert and oriented, not in acute distress. VITAL SIGNS: Temperature 36.7, pulse 68, respiratory rate 18, blood pressure 156/93, oxygen 98% on room air. HEENT: Pupils equal, round and reactive to light. Oral mucosa moist. NECK: No JVD, no neck masses. CARDIOVASCULAR: S1 and S2 heard. Regular rate and rhythm. No murmur, no gallop. RESPIRATORY SYSTEM: Normal AP diameter. No accessory muscle use. No wheezing, no crackles. ABDOMEN: Soft, bowel sounds present, nontender, no distention. CENTRAL NERVOUS SYSTEM: Cranial nerves II through XII grossly intact, nonfocal. EXTREMITIES: No edema, no erythema. LABORATORY DATA: WBC 5.4, hemoglobin 9.9, hematocrit 31.7, platelets 163. Sodium 138, potassium 4.3, chloride 105, bicarbonate 30, BUN 20, creatinine 1.2, serum glucose 92, calcium 9.3, total bilirubin 0.4, AST 21, ALT 13, alkaline phosphatase 58. Troponin I high sensitivity 9.6, lipase 14. SARS-CoV-2 rapid test negative. IMAGING DATA: Chest x-ray, cardiomegaly with no acute disease in the chest. ELECTROCARDIOGRAM: Normal sinus rhythm, rate of 64, no significant change was found. ASSESSMENT AND PLAN: This is a 67-year-old female who presents with nosebleed and later developed chest pain. 1. Chest pain: Rule out acute coronary syndrome. Initial workup is unremarkable. Follow serial enzymes, repeat EKG. Keep her n.p.o. after midnight. Consult cardiology in the a.m. Will follow echocardiogram. Further recommendation as per Cardiology. 2. History of moderate nonobstructive coronary artery disease, 50% ostial left anterior descending in December 2016. Dobutamine stress echo negative for ischemia in April 2009 and November 2020. Currently on beta kristofer, statin. We will follow the echo report and cardiology input. 3. bicuspid aortic valve with moderate aortic stenosis. Needs followup. 4. History of paroxysmal atrial fibrillation: Rate controlled with metoprolol, on Eliquis. Will hold Eliquis for now because of epistaxis. Restart as per cardiology. 5. Epistaxis: Looks like she has a saddle of septal perforation. Seen by ENT in the ER and was given epinephrine and gelfoam applied with epinephrine and bleeding is currently stopped. ENT recommends to give nasal saline spray and Vaseline four times a day and also if possible to hold blood thinners for 5 days and blood pressure control and if the bleeding restarts, recommends to attempt to Merocel placement, but also the patient may require transfer to [place] at that time. Will monitor. 5. Chronic kidney disease stage III: Presently with creatinine of 1.2. Will follow the labs. 6. Anemia: Hemoglobin 9.9, needs followup. Will check stool for Hemoccult. 7. Hyperlipidemia: On statin. 8. Hypertension: On lisinopril, metoprolol succinate. Will monitor the blood pressure. 9. Deep venous thrombosis prophylaxis: Sequential compression devices for now. DISPOSITION: Observation in med tele. PT/OT prior to discharge. Social service to help with discharge planning. Job ID: [id number]
[2022-06-06] MEDS ORDERED: MICONAZOLE NITRATE POWDER 85 GM EXT PRN (05:22)
[2022-06-06 06:59] LABS: Basophils # (auto) 0.03 K/uL (0-0.2); Basophils % (auto) 0.5 %; Eosinophils # (auto) 0.18 K/uL (0-0.50); Eosinophils % (auto) 3.2 %; Hematocrit (blood only) 30.4 % (37.0-47.0); Hemoglobin 9.7 g/dl (12.0-16.0); Immature Granulocytes # (auto) 0.02 K/uL (0.01-0.20); Immature Granulocytes % (auto) 0.4 %; Lymphocytes # (auto) 2.24 K/uL (1.2-3.4); Lymphocytes % (auto) 40.3 %; Mean Corpuscular Hemoglobin 31.5 pg (25.0-34.0); Mean Corpuscular Hgb Conc 31.9 g/dL (32.0-36.0); Mean Corpuscular Volume 98.7 fL (80.0-100.0); Mean Platelet Volume 10.3 fL (9.4-12.4); Monocytes # (auto) 0.74 K/uL (0.11-0.59); Monocytes % (auto) 13.3 %; Neutrophils # (auto) 2.35 K/uL (1.40-6.50); Neutrophils % (auto) 42.3 %; Platelet Count 171 K/uL (130-400); RDW Coefficient of Variation 12.5 % (11.5-14.5); RDW Standard Deviation 44.9 fL (36.4-46.3); Red Blood Count 3.08 M/uL (4.20-5.40); White Blood Count 5.56 K/ul (4.8-10.8)
[2022-06-06] MEDS ORDERED: CYANOCOBALAMIN (B-12) 500 MCG TABLET PO SCH (09:00)
[2022-06-06] MEDS ORDERED: diphenhydrAMINE Capsule 25 MG CAP PO SCH (09:00)
[2022-06-06] MEDS ORDERED: ASCORBIC ACID 500 MG TAB PO SCH (09:00)
[2022-06-06] MEDS ORDERED: FOLIC ACID 400 MCG TAB PO SCH (09:00)
[2022-06-06] MEDS ORDERED: MEMANTINE HCL 5 MG TAB PO SCH (09:00)
[2022-06-06] MEDS ORDERED: DOCUSATE SODIUM 100 MG CAP PO SCH (09:00)
[2022-06-06] MEDS ORDERED: CHOLECALCIFEROL 1,000 UNITS 25 MCG TAB PO SCH (09:00)
[2022-06-06] MEDS ORDERED: DULoxetine HCL 60 MG CAP PO SCH (09:00)
[2022-06-06 09:37] LABS: Magnesium 1.8 mg/dl (1.7-2.4); Potassium 4.3 mmol/L (3.5-5.1)
[2022-06-06 09:43] LABS: BUN Creatinine Ratio 16.5 (10-20); Creatinine Clr Calc Pharmacy 55.4 ml/min; Est GFR (African American) 51.3 ml/min; Est GFR (Non-African American) 44.3 ml/min
--- NOTE | 2022-06-06 10:32 | Cardiology Consultation ---
Date of Consultation June 06, 2022 Assessment & Plan (1) Atypical chest pain: (2) CAD (coronary artery disease): (3) Moderate aortic stenosis: (4) Paroxysmal atrial fibrillation: (5) Acute anterior epistaxis: Plan 67-year-old female present emergency department secondary to epistaxis. Bleeding controlled. Transient atypical chest discomfort, reproducible on exam and likely musculoskeletal noted. No evidence of acute coronary syndrome. No further cardiac testing or intervention recommended at this time. Eliquis may be placed on hold due to epistaxis pending ENT evaluation. Recent echocardiogram demonstrating stable, moderate aortic valve stenosis. Patient may follow-up with cardiology as scheduled on June 29, 2022. History of Present Illness Reason for Consultation: Chest pain Requesting Physician: Dr. Evans Attending Physician: Davin Evans MD History of Present Illness 67-year-old female present to the emergency department with epistaxis. Recurrent problem over the years. Suffered a septal perforation in the past. Bleeding controlled in the ER. Complained of chest discomfort during evaluation prompting ECG and serial cardiac enzymes. Describes a pinching sensation which is reproducible with palpation. Discomfort has resolved. High-sensitivity troponin unremarkable. ECG within normal limits., Currently patient is resting comfortably. No recurrent chest pain overnight. No dysrhythmias on telemetry. Denies orthopnea, PND, or lower extremity edema. Antihypertensive medications reduced by primary care due to borderline hypotension. No lightheadedness, dizziness, syncope, or near syncope. Patient requesting discharge home to take care of her dog. Allergies Allergy/AdvReac Type Severity Reaction Status Date / Time egg AdvReac Intermediate GI upset Verified 06/05/22 16:20 ibuprofen AdvReac Intermediate stomach Verified 06/05/22 16:20 irritation morphine AdvReac Intermediate LEGS SWELL Verified 06/05/22 16:20 Home Medications Medication Instructions Recorded Confirmed Type atorvastatin 80 mg tablet 80 mg PO QPM 06/16/18 06/05/22 History cholecalciferol (vitamin D3) 25 1,000 unit PO QAM 06/16/18 06/05/22 History mcg (1,000 unit) tablet (Vitamin D3) cyanocobalamin (vitamin B-12) 1,000 mcg PO QAM 06/16/18 06/05/22 History 1,000 mcg tablet (Vitamin B-12) fish, borage, flaxseed oils-omega 1 cap PO QAM 06/16/18 06/05/22 History 3,6,9 comb no.1 1,200 mg capsule ([place] 3-6-9) folic acid 800 mcg tablet 0.8 mg PO QAM 06/16/18 06/05/22 History ascorbic acid (vitamin C) 250 mg 250 mg PO QAM 12/13/19 06/05/22 History tablet docusate sodium 100 mg capsule 100 mg PO BID 12/13/19 06/05/22 History (Colace) duloxetine 60 mg capsule,delayed 60 mg PO DAILY 03/16/20 06/05/22 History release (Cymbalta) lisinopril 10 mg tablet 10 mg PO HS 03/16/20 06/05/22 History metoprolol succinate 50 mg 25 mg PO BID 03/16/20 06/05/22 History tablet,extended release 24 hr apixaban 5 mg tablet (Eliquis) 5 mg PO BID 03/12/21 06/05/22 History buspirone 10 mg tablet 10 mg PO BID 06/23/21 06/05/22 History sumatriptan succinate 25 mg tablet 25 mg PO DIRECTED PRN Migraine 08/28/21 06/05/22 History Headache trazodone 100 mg tablet 200 mg PO HS 08/28/21 06/05/22 History betamethasone dipropionate 0.05 % 1 applic topical BID PRN RASH 03/01/22 06/05/22 History topical ointment FACE/TRUNK/ARMS calcipotriene 0.005 % topical 1 applic topical BID PRN RASH 03/01/22 06/05/22 History cream (Dovonex) FLARE UPS ON FACE/TRUNK/ARMS memantine 5 mg tablet 5 mg PO BID 03/01/22 06/05/22 History oxybutynin chloride 5 mg 5 mg PO QPM 03/01/22 06/05/22 History tablet,extended release 24 hr tacrolimus 0.1 % topical ointment 1 applic topical BID PRN AFFECTED 03/01/22 06/05/22 History AREAS ON FACE oxycodone 5 mg tablet 5 mg PO Q8H PRN pain #4 tabs 05/21/22 06/05/22 Rx clotrimazole 1 % topical cream 1 applic topical DIRECTED PRN 05/23/22 06/05/22 History Itching diphenhydramine HCl 25 mg capsule 25 mg PO QAM 05/23/22 06/05/22 History (Benadryl) pregabalin 50 mg capsule 50 mg PO BID 05/23/22 06/05/22 History miconazole nitrate 2 % topical 1 applic EXT PRN PRN skin rash #85 06/06/22 Rx powder (Desenex) grams sodium chloride 0.65 % nasal spray 2 spray NA Q6H #44 mL 06/06/22 Rx aerosol (Saline Mist) Patient History Medical History A-fib "i think i have a-fib." -- on eliquis -- follows with Dr. Torres Acute urinary retention Anemia Anxiety and depression Aortic stenosis Mild (per cardiology review) aortic stenosis with possible bicuspid aortic valve (MG 19mmhg, NIKKIE 3.0) per 05/2018 ECHO Atrial flutter, paroxysmal Back pain Borderline diabetes mellitus Bullous pemphigoid CAD (coronary artery disease) non-obstructive Cardiac murmur Carotid artery stenosis "mild" Chronic back pain Chronic low back pain COVID-19 GERD (gastroesophageal reflux disease) controlled High cholesterol History of COVID-19 02/2020; generalized weakness, diarrhea, sob, fever, body aches; hospitalized x 1 week; c/o ongoing brain fog since having covid History of skin cancer History of TIA (transient ischemic attack) 2016 Hx of falling last fall 09/2018- per patient, related to LBP/balance issues- ? r/t ambulatory dysfunction- improved with cane/walker use Hypertension IBS (irritable bowel syndrome) Morbid obesity BMI 50.5 Nocturia Nose septum perforation Osteoporosis Renal failure Sacroiliitis Stage 3 chronic kidney disease Verbalizes suicidal thoughts Surgical History History of appendectomy History of back surgery History of cardiac cath 2017= NO STENTS History of kyphoplasty History of right cataract extraction History of right knee joint replacement Hx of laparoscopy S/P epidural steroid injection Family History Father Stroke Slow to wake up after anesthesia Myocardial infarction, Onset Age: 40 Mother Stroke Myocardial infarction, Onset Age: 60 Sister Myocardial infarction, Onset Age: 60 Social History Smoking Status: Former smoker Tobacco Type: Cigarettes Second Hand Exposure: Yes; Do You Dip or Chew Tobacco: No; Hx Alcohol Use: No Hx Substance Use: No Preferred Language: Divehi Communication Ability: Effective Visual Impairment: No Limitations Hearing Ability: Normal Industrial Technology Teacher Required: No Beliefs That Will Affect Care: None marital status: Single Current Living Situation: Family Current Living Situation Comment: lives with mother and sister current occupational status: unemployed and disabled Feels Safe at Home: Yes Assistive Devices: Cane Review of Systems Review of Systems: All systems reviewed & are unremarkable except as noted in Subjective Physical Exam Constitutional: well nourished; no acute distress Respiratory: normal respiratory effort; no labored breathing and no retractions Auscultation: breath sounds present, no diminished lung sounds, no crackles, no rales and no rhonchi Cardiovascular: Rate/Rhythm: regular rate and regular rhythm Heart Sounds: normal S1, normal S2 and + murmur (3/6 mid to late GA) Vessels: radial pulses present; no JVD and no carotid bruit Extremities: no pedal edema Gastrointestinal (Abdomen): Inspection/Auscultation: abdomen not distended and no abdominal edema Percussion/Palpation: abdomen soft; abdomen nontender, no guarding and abdomen not rigid Neurologic: CN's II-XI intact bilaterally; + does not move all extremities and no focal motor deficits Psychiatric: Orientation: alert and oriented x 3 Results & Data Vital Signs (Past 12 Hours) Vital Signs Temp Pulse Pulse Resp BP Pulse Ox O2 Del Method 06/06/22 09:49 36.6 C 64 18 93/62 L 92 06/06/22 09:00 Room Air 06/06/22 07:55 36.6 C 64 18 93/62 L 92 Room Air 06/06/22 07:24 71 06/06/22 03:21 36.7 C 83 20 153/75 H 93 Room Air 06/06/22 01:30 66 06/06/22 00:27 Room Air 06/06/22 00:27 36.4 C L 81 18 168/82 H 99 Room Air 06/05/22 23:58 36.4 C L 81 18 168/82 H 99 Room Air 06/05/22 23:28 Room Air 06/05/22 23:22 70 18 150/94 H 99 Room Air Laboratory Results Cardiac Enzymes 06/05/22 06/06/22 Range/Units 17:40 05:21 AST 21 (13-39) U/L Troponin I High Sens 9.6 9.1 (0-14) pg/ml CBC 06/05/22 06/06/22 Range/Units 17:40 05:21 WBC 5.46 5.56 (4.8-10.8) K/ul RBC 3.13 L 3.08 L (4.20-5.40) M/uL Hgb 9.9 L 9.7 L (12.0-16.0) g/dl Hct 31.7 L 30.4 L (37.0-47.0) % Plt Count 163 171 (130-400) K/uL Neut # (Auto) 2.04 2.35 (1.40-6.50) K/uL Lymph # (Auto) 2.29 2.24 (1.2-3.4) K/uL Jenkins # (Auto) 0.92 H 0.74 H (0.11-0.59) K/uL Eos # (Auto) 0.16 0.18 (0-0.50) K/uL Baso # (Auto) 0.04 0.03 (0-0.2) K/uL Comprehensive Metabolic Panel 06/05/22 06/06/22 Range/Units 17:40 05:21 Sodium 138 141 (136-145) mmol/L Potassium 4.3 4.3 (3.5-5.1) mmol/L Chloride 105 105 (98-107) mmol/L Carbon Dioxide 30 27 (21-32) mmol/L BUN 20 21 (6-23) mg/dl Creatinine 1.26 H 1.27 H (0.6-1.2) mg/dl Glucose 92 88 (70-99(Fasting)) mg/dl Calcium 9.3 9.0 (8.6-10.3) mg/dl AST 21 (13-39) U/L ALT 13 (7-52) U/L Alkaline Phosphatase 58 (34-104) U/L Total Protein 6.1 (6.0-8.3) gm/dl Albumin 3.5 (3.4-5.0) gm/dl Intake and Output 06/05/22 06/06/22 06/06/22 22:59 06:59 14:59 Intake Total 0 / 0 Balance 0 / 0 Intake: Oral 0 / 0 Other: # Unmeasured Voids 1 Weight 113 kg 113 kg Weight Measurement Method Standing Scale Patient Weight 06/07/22 06:59 Weight 113 kg
--- NOTE | 2022-06-06 11:01 | Discharge Summary ---
Date of Service June 06, 2022 Admission HPI Per Admitting Provider This is a 67-year-old female with past medical history significant for hyperlipidemia, paroxysmal atrial flutter, hypertension, bicuspid aortic valve, moderate aortic stenosis, morbid obesity, irritable bowel syndrome, GERD, stage III chronic kidney disease, senile osteoporosis, chronic insomnia, depression with anxiety, spinal stenosis of lumbar region. Came to the hospital because of nosebleed. ENT saw the patient. Initially, the patient came with epistaxis from the inferior arterial bleed, that was in the saddle of the septal perforation. Initially, bleeding was cleared by suction and she was planned to be discharged, but unfortunately started to bleed before she left the hospital and ENT was consulted and recommended topical epinephrine and the ENT also came to the hospital and evaluated the patient. Topical epinephrine was applied with a cotton tip applicator and the bleeding was signifcantly slowed down as per ER , and also ENT seems applied gelfoamwith epinephrine and packed the saddle of t he perforation and hemostasis was achieved. ENT referred her to [facility] for specialty management due to the perforation and complicated nature of this treatment, and she was monitored in the hospital and as there was no bleeding, there was plan to discharge, but prior to observation period, she developed chest pain. She has severe chest pain. The patient says it is like pinching in her heart, was very severe and she was crying at that time, it lasted for half an hour, she was placed on nitroglycerin paste. After that, the pain comes and goes, but not as severe. Labs are okay. ENT also recommended if the bleeding restarts, can attempt Merocel placement, but recommended transfer to [place]. ENT also recommended to hold the blood thinner for 5 days if possible and make sure BP is controlled and also to use saline spray and Vaseline 4 times a day. Currently, resting comfortably, hemodynamically stable. Currently not much pain. Denies any shortness of breath, no nausea. Headache was there before coming to the hospital. Vision is not that great. No sore throat, no cough, no fevers. Appetite is okay. No nausea, no abdominal pain. Normal bowel and bladder movements. Ambulates with a cane. Lives with her sister. Admission Exam Per Admitting Provider GENERAL: The patient is alert and oriented, not in acute distress. VITAL SIGNS: Temperature 36.7, pulse 68, respiratory rate 18, blood pressure 156/93, oxygen 98% on room air. HEENT: Pupils equal, round and reactive to light. Oral mucosa moist. NECK: No JVD, no neck masses. CARDIOVASCULAR: S1 and S2 heard. Regular rate and rhythm. No murmur, no gallop. RESPIRATORY SYSTEM: Normal AP diameter. No accessory muscle use. No wheezing, no crackles. ABDOMEN: Soft, bowel sounds present, nontender, no distention. CENTRAL NERVOUS SYSTEM: Cranial nerves II through XII grossly intact, nonfocal. EXTREMITIES: No edema, no erythema. Principal Diagnosis epistaxis, atypical chest pain Discharge Exam GENERAL: obese F not in acute distress HEENT: NC, Pupils equal, round and reactive to light. Oral mucosa moist. NECK: No JVD, no neck masses. CARDIOVASCULAR: S1 and S2 heard. Regular rate and rhythm. No murmur, no gallop. RESPIRATORY: Normal AP diameter. No accessory muscle use. No wheezing, no crackles. ABDOMEN: Soft, bowel sounds present, nontender, no distention, obese. NEURO:Awake alert oriented, answers appropriately, speech fluent, moves extremities EXTREMITIES: No edema, moves extremities Discharge Data Allergies Allergy/AdvReac Type Severity Reaction Status Date / Time egg AdvReac Intermediate GI upset Verified 06/05/22 16:20 ibuprofen AdvReac Intermediate stomach Verified 06/05/22 16:20 irritation morphine AdvReac Intermediate LEGS SWELL Verified 06/05/22 16:20 Consultations 06/05/22 16:10 Consult Otolaryngology (Head and Neck) Stat 06/05/22 20:04 ED Decision to Admit Stat 06/06/22 08:00 Consult Cardiology Routine Hospital Course (1) Atypical chest pain: This is a 67 yo female who presents with nosebleed and later developed chest pain. 1. Chest pain: Rule out acute coronary syndrome. Initial workup is unremarkable. Followed serial enzymes, repeat EKG. Echo obtained and cardiology consulted History of moderate nonobstructive coronary artery disease, 50% ostial left anterior descending in December 2016. Dobutamine stress echo negative for ischemia in April 2009 and November 2020. Currently on beta kristofer, statin. We will follow the echo report and cardiology input. Bicuspid aortic valve with moderate aortic stenosis. Needs followup. Paroxysmal atrial fibrillation: Rate controlled with metoprolol, on Eliquis. Will hold Eliquis for now because of epistaxis. Restart as per cardiology. Pt seen by cardiology - atypical chest pain, likely MSK Transient atypical chest discomfort, reproducible on exam and likely musculoskeletal noted. No evidence of acute coronary syndrome. No further cardiac testing or intervention recommended at this time. Eliquis may be placed on hold due to epistaxis pending ENT evaluation. Recent echocardiogram demonstrating stable, moderate aortic valve stenosis. Patient may follow-up with cardiology as scheduled on June 29, 2022. 5. Epistaxis: Looks like she has a saddle of septal perforation. Seen by ENT in the ER and was given epinephrine and gelfoam applied with epinephrine and bleeding is currently stopped. ENT recommends to give nasal saline spray and Vaseline four times a day and also if possible to hold blood thinners for 5 days and blood pressure control and if the bleeding restarts, recommends to attempt to Merocel placement, but also the patient may require transfer to [place] at that time. No more epistaxis noted and pt is eager for discharge. Per ENT - pt is to follow up at [facility] w/ Dr. Lopez 5. Chronic kidney disease stage III: Presently with creatinine of 1.2. 6. Anemia: Hemoglobin 9.9, needs followup. Will check stool for Hemoccult. sample not collected - follow up w/ PCP. 7. Hyperlipidemia: On statin. 8. Hypertension: On lisinopril, metoprolol succinate. Will monitor the blood pressure. Total Time Total Time Spent Total Time Spent (In Minutes): 40 Discharge Plan Discharge Items Patient Disposition: Home - Self-Care Reason For Visit: CHEST PAIN Discharge Diagnosis: Epistaxis, chest pain Activity: Per Instructions section Non-emergency contact: Primary Care Provider and Specialist Call non-emergency contact if: you have any medication questions and your symptoms worsen Follow-up/Referrals: Nikunj Plascencia MD [Primary Care Provider] - (Date & Time 06/13/2022 3:20 PM Provider Nikunj Plascencia MD Department Family Practice [facility] ) Diet: Heart Healthy Addtl Attending Provider Instructions: Follow-up with primary care doctor, and ENT doctor. The appointment with primary care physician was scheduled for you for 06/13/2022. You will be contacted by ENT physician from [facility] (Dr. Lopez) about the upcoming appointment. In the meantime, follow-up recommendations from ENT physician who saw you in the emergency room (Dr. Puente) - Continue using saline nose spray and Vaseline. For now, do not use Eliquis - per ENT - do not use Eliquis for about 5 days / or until seen by ENT in [place]. Follow-up with cardiology, as scheduled, on June 29, 2022. Pending Studies at Discharge: No Stand-Alone Forms: My [facility], Smoking Cessation Medications and DC Order Prescriptions: New Saline Mist 0.65 % Aerosol,[place] 2 spray NA Q6H Qty: 44 0RF miconazole nitrate [Desenex] 2 % Powder 1 applic EXT PRN PRN (Reason: skin rash) Qty: 85 0RF Continued buspirone 10 mg tablet 10 mg PO BID atorvastatin 80 mg tablet 80 mg PO QPM cyanocobalamin (vitamin B-12) [Vitamin B-12] 1,000 mcg Tablet 1,000 mcg PO QAM folic acid 800 mcg Tablet 0.8 mg PO QAM cholecalciferol (vitamin D3) [Vitamin D3] 1,000 unit Tablet 1,000 unit PO QAM [place] 3-6-9 1,200 mg Capsule 1 cap PO QAM Rx Instructions: FORMULA HAS GREEN TEA docusate sodium [Colace] 100 mg capsule 100 mg PO BID ascorbic acid (vitamin C) 250 mg Tablet 250 mg PO QAM duloxetine [Cymbalta] 60 mg capsule,delayed release(DR/EC) 60 mg PO DAILY lisinopril 10 mg tablet 10 mg PO HS metoprolol succinate 50 mg tablet extended release 24 hr 25 mg PO BID Eliquis 5 mg tablet 5 mg PO BID trazodone 100 mg tablet 200 mg PO HS sumatriptan succinate 25 mg tablet 25 mg PO DIRECTED MDD 5 TABS/24 HOURS PRN (Reason: Migraine Headache) Rx Instructions: TAKE 50 MG AT ONSET OF SUE, THEN MAY REPEAT WITH 25 MG EVERY 2 HOURS NEEDED. MAX 5 TABS IN 24 HOURS. diphenhydramine HCl [Benadryl] 25 mg Capsule 25 mg PO QAM clotrimazole 1 % Cream 1 applic TOPICAL DIRECTED PRN (Reason: Itching) pregabalin 50 mg capsule 50 mg PO BID tacrolimus 0.1 % Ointment 1 applic TOPICAL BID PRN (Reason: AFFECTED AREAS ON FACE) calcipotriene [Dovonex] 0.005 % Cream 1 applic TOPICAL BID PRN (Reason: RASH FLARE UPS ON FACE/TRUNK/ARMS) Rx Instructions: rub in gently and completely oxybutynin chloride 5 mg tablet extended release 24hr 5 mg PO QPM betamethasone dipropionate 0.05 % Ointment 1 applic TOPICAL BID PRN (Reason: RASH FACE/TRUNK/ARMS) memantine 5 mg Tablet 5 mg PO BID oxycodone 5 mg tablet 5 mg PO Q8H PRN (Reason: pain) Qty: 4 0RF Rx Instructions: For initial treatment Discharge Orders: Discharge Order (Routine); Ordered 06/06/22 Ordered By: Davin Evans Admission Data Admit Date/Time: 06/05/22 21:53 Attending Provider: Davin Evans Admit Provider: Jean Carlos Cheng Primary Care Provider: Nikunj Plascencia Other Providers: Bibiana Puente ; Jaen Carlos Cheng ; Lila Burger ; Trip Nolasco ; Guillermo Baptiste ; Ulysses Blanco ; Fernando Torres ; Alpesh Guerrier ; Wallace Pryor ; Adriane Dover ; Felicia Rothman ; Lila Bautista ; Terell Corrigan ; Kayla Waterman Other Interventions: Discharge Summary Assessment (RN) Last Done: 06/06/22 09:49
--- NOTE | 2022-06-06 17:38 | Electrocardiogram Report ---
Test Reason : Blood Pressure : / mmHG Vent. Rate : 064 BPM Atrial Rate : 064 BPM P-R Int : 126 ms QRS Dur : 082 ms QT Int : 418 ms P-R-T Axes : 017 -04 009 degrees QTc Int : 431 ms Poor data quality, interpretation may be adversely affected Normal sinus rhythm Normal ECG When compared with ECG of 23-MAY-2022 11:52, No significant change was found Confirmed by Reinaldo Bermeo ([id number]) on 06/06/2022 5:38:03 PM Referred By: REFERRED SELF Confirmed By:Chucho Bermeo
--- NOTE | 2022-06-06 17:41 | Electrocardiogram Report ---
Test Reason : Blood Pressure : / mmHG Vent. Rate : 068 BPM Atrial Rate : 068 BPM P-R Int : 152 ms QRS Dur : 074 ms QT Int : 410 ms P-R-T Axes : 055 -09 004 degrees QTc Int : 435 ms Normal sinus rhythm Normal ECG When compared with ECG of 05-JUN-2022 17:30, (unconfirmed) T wave amplitude has decreased in Anterior leads Confirmed by Reinaldo Bermeo ([id number]) on 06/06/2022 5:41:06 PM Referred By: REFERRED SELF Confirmed By:Chucho Bermeo
[2022-06-06] MEDS ORDERED: OXYBUTYNIN CHLORIDE XL 5 MG TABCR PO SCH (21:00)
== END 2022-06-06 11:09 | disposition home or self-care (01) ==
LOC: 2N 12:52 → ED 12:52 → 2N 23:28
DX: I12.9 Hypertensive chronic kidney disease with stage 1 through stage 4 chronic kidney disease, or unspecified chronic kidney disease; Z79.899 Other long term (current) drug therapy; I48.0 Paroxysmal atrial fibrillation; Z91.012 Allergy to eggs; Z88.8 Allergy status to other drugs, medicaments and biological substances; I35.0 Nonrheumatic aortic (valve) stenosis; D64.9 Anemia, unspecified; Z79.01 Long term (current) use of anticoagulants; Z86.73 Personal history of transient ischemic attack (TIA), and cerebral infarction without residual deficits; R07.89 Other chest pain; Z88.5 Allergy status to narcotic agent; R04.0 Epistaxis; Z68.43 Body mass index [BMI] 50.0-59.9, adult; Z86.16 Personal history of COVID-19; Z87.891 Personal history of nicotine dependence; E78.5 Hyperlipidemia, unspecified; J34.89 Other specified disorders of nose and nasal sinuses; N18.30 Chronic kidney disease, stage 3 unspecified; E66.01 Morbid (severe) obesity due to excess calories

== ENCOUNTER 2023-07-28 09:49 | Inpatient (IN) ==
--- NOTE | 2023-07-28 10:02 | Emergency Department Note ---
Impression & Plan Closed fibular fracture, Metatarsal bone fracture, Ambulatory dysfunction ED Provider Note NAME: BREANN PENA AGE: 68 SEX: F : 1955 ARRIVES VIA: Ambulance INFORMANT: Patient ED PROVIDER(S): Yannick Barbosa DO CHIEF COMPLAINT: Fall HPI: Patient is a 68-year-old female with a past medical history of aortic stenosis, paroxysmal A-fib, a flutter, neurogenic claudication who presents to the ER following a fall. She notes that she was walking to get her dogs insulin from the fridge. She was bending down to get it and she felt a little shaky and she fell as her right foot gave out from underneath of her. She fell onto her leg. She denies any head pain or neck pain. No head trauma or strike. No belly pain. No chest pain. No shortness of breath. She notes the pain is focal in her right knee down through the foot. No dysuria, urgency, or frequency. ADDITIONAL HISTORY OBTAINED: Per HPI Chronic Medical/Social Conditions Affecting Care: Per HPI PAST MEDICAL HISTORY:See Below PAST SURGICAL HISTORY:See Below FAMILY HISTORY:See Below SOCIAL HISTORY:See Below HOME MEDICATIONS:See Below ALLERGIES:See Below VITALS:See Below PHYSICAL EXAMINATION: GENERAL: Sitting up in bed, alert, well appearing, well nourished, no distress, non-toxic EYE EXAM: normal conjunctiva. OROPHARYNX: mucous membranes are moist NECK: supple, no nuchal rigidity, no adenopathy, non-tender LUNGS: Clear to auscultation. Normal chest wall mechanics HEART: no murmurs, S1 normal and S2 normal ABDOMEN: abdomen soft, non-tender, normo-active bowel sounds, no masses, no rebound or guarding. BACK: Back is symmetrical on inspection and there is no deformity, no midline tenderness, no CVA tenderness. UPPER EXTREMITIES: upper extremities are grossly normal. LOWER EXTREMITIES: Flexion-extension left hip knee and ankle intact. Flexion- extension right hip and knee with moderate pain with movement of the right knee. Tenderness throughout the proximal tib-fib as well as the mid perez. Tenderness throughout the right lateral foot. Bruising over the right lateral foot. DPs and PTs 2 out of 4 bilaterally. NEURO EXAM: Normal sensorium, cranial nerves II-XII grossly intact, normal speech, no gross weakness of arms, no gross weakness of legs. MEDICAL DECISION MAKING: Patient is a 68-year-old female with a past medical history of paroxysmal A-fib who presents the ER for above-stated complaint. She had a mechanical fall complaining of right lower extremity pain. IV was established blood work obtained. She was given IV narcotics for pain. Labs show no significant leukocytosis. Mild anemia at 8.7. BMP with creatinine 1.7. LFTs bilirubin and troponin was negative. X-rays of the tib-fib knee and foot show fracture of the proximal right fibula as well as the fifth metatarsal. This was discussed with Dr. Randhawa who is on-call and he recommends a postop shoe and weightbearing as tolerated. Patient was unable to ambulate at all. She generally walks with a walker at home. Discussed the case with the hospitalist for further observation for PT OT Consults/Care Managements Discussions: Per MDM Triage Nursing notes reviewed. Limited review of prior medical records performed Vital Signs: reviewed and remarkable for no significant abnormalities Differential diagnosis: Differential diagnoses include major intracranial, cervical, spinal, thoracic, abdominal, pelvic and neurologic injury. Fracture, contusion, sprain, strain, laceration, abrasions included as well. ER treatment provided: See below Diagnostics interpreted by me include EKG and cardiac monitoring as listed below: -Cardiac Monitoring: An order was placed for continuous cardiac monitoring. The monitor shows a rate of 65 with sinus rhythm. -ECG: None -Laboratory studies:Interpreted by me as stated above in MDM and shown below. Imaging studies: Xrays: As interpreted by me: X-ray of the right knee shows a right proximal fibular head fracture X-ray tib-fib shows a right proximal fibular fracture CTs show: None Procedures: None Critical Care: None Past Med/Surg History Problem List (Updated 07/28/23 @ 15:45 by Yannick Barbosa DO) Ambulatory dysfunction (Acute) Metatarsal bone fracture (Acute) Closed fibular fracture (Acute) Fall Presence of Watchman left atrial appendage closure device Paroxysmal atrial fibrillation Bullous pemphigoid Chronic anemia Severe aortic stenosis Closed fracture of proximal end of right fibula Paroxysmal atrial fibrillation Moderate aortic stenosis Atypical chest pain Chest pain (Acute) Acute anterior epistaxis (Acute) Hiatal hernia Uncontrolled hypertension Obesity (Acute) Atrial flutter, paroxysmal Aortic stenosis Bicuspid aortic valve Chronic low back pain GERD (gastroesophageal reflux disease) Dyslipidemia Atrial flutter, paroxysmal Candidal intertrigo DVT prophylaxis Chest pain (Acute) Neurogenic claudication due to lumbar spinal stenosis Feeling of incomplete bladder emptying Anemia Stage 3 chronic kidney disease (Acute) Anxiety and depression CAD (coronary artery disease) non-obstructive Hypertension (Acute) Medical History Nose septum perforation Chronic low back pain Sacroiliitis IBS (irritable bowel syndrome) Borderline diabetes mellitus A-fib "i think i have a-fib." -- on eliquis -- follows with Dr. Torres History of TIA (transient ischemic attack) 2016 Cardiac murmur History of skin cancer History of COVID-19 02/2020; generalized weakness, diarrhea, sob, fever, body aches; hospitalized x 1 week; c/o ongoing brain fog since having covid Verbalizes suicidal thoughts COVID-19 Nocturia Acute urinary retention Back pain Renal failure Morbid obesity BMI 50.5 Carotid artery stenosis "mild" Aortic stenosis Mild (per cardiology review) aortic stenosis with possible bicuspid aortic valve (MG 19mmhg, NIKKIE 3.0) per 05/2018 ECHO Anemia Osteoporosis GERD (gastroesophageal reflux disease) controlled Chronic back pain High cholesterol Hx of falling last fall 09/2018- per patient, related to LBP/balance issues- ? r/t ambulatory dysfunction- improved with cane/walker use Surgical History History of right cataract extraction S/P epidural steroid injection History of appendectomy History of cardiac cath 2017= NO STENTS History of right knee joint replacement History of back surgery Hx of laparoscopy History of kyphoplasty Family History Father Stroke Slow to wake up after anesthesia Myocardial infarction, Onset Age: 40 Mother Stroke Myocardial infarction, Onset Age: 60 Sister Myocardial infarction, Onset Age: 60 Social History Smoking Status: Former smoker Tobacco Type: Cigarettes Second Hand Exposure: Yes; Do You Dip or Chew Tobacco: No; Hx Alcohol Use: No Hx Substance Use: No Preferred Language: Filipino Communication Ability: Effective Visual Impairment: No Limitations Hearing Ability: Normal 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 Required: No Beliefs That Will Affect Care: None marital status: Single Current Living Situation: Family Current Living Situation Comment: Lives with sister current occupational status: unemployed and disabled Feels Safe at Home: Yes Assistive Devices: Cane and Walker Allergies Allergies Allergy/AdvReac Type Severity Reaction Status Date / Time egg AdvReac Intermediate GI upset Verified 07/28/23 12:29 ibuprofen AdvReac Intermediate stomach Verified 07/28/23 12:29 irritation morphine AdvReac Intermediate LEGS SWELL Verified 07/28/23 12:29 Home Meds Home Medications Medication Instructions Recorded Confirmed atorvastatin 80 mg tablet 80 mg PO QPM 06/16/18 07/28/23 cholecalciferol (vitamin D3) 25 1,000 unit PO QAM 06/16/18 07/28/23 mcg (1,000 unit) tablet (Vitamin D3) cyanocobalamin (vitamin B-12) 1,000 mcg PO QAM 06/16/18 07/28/23 1,000 mcg tablet (Vitamin B-12) fish, borage, flaxseed oils-omega 1 cap PO QAM 06/16/18 07/28/23 3,6,9 comb no.1 1,200 mg capsule ([place] 3-6-9) folic acid 800 mcg tablet 0.8 mg PO QAM 06/16/18 07/28/23 ascorbic acid (vitamin C) 250 mg 250 mg PO QAM 12/13/19 07/28/23 tablet docusate sodium 100 mg capsule 100 mg PO BID 12/13/19 07/28/23 (Colace) duloxetine 60 mg capsule,delayed 120 mg PO DAILY 03/16/20 07/28/23 release (Cymbalta) lisinopril 10 mg tablet 10 mg PO HS 03/16/20 07/28/23 metoprolol succinate 50 mg 25 mg PO BID 03/16/20 07/28/23 tablet,extended release 24 hr buspirone 10 mg tablet 10 mg PO BID 06/23/21 07/28/23 sumatriptan succinate 25 mg tablet 25 mg PO DIRECTED PRN Migraine 08/28/21 07/28/23 Headache betamethasone dipropionate 0.05 % 1 applic topical BID PRN RASH 03/01/22 07/28/23 topical ointment FACE/TRUNK/ARMS oxybutynin chloride 5 mg 5 mg PO QPM 03/01/22 07/28/23 tablet,extended release 24 hr tacrolimus 0.1 % topical ointment 1 applic topical BID PRN AFFECTED 03/01/22 07/28/23 AREAS ON FACE clotrimazole 1 % topical cream 1 applic topical DIRECTED PRN 05/23/22 07/28/23 Itching diphenhydramine HCl 25 mg capsule 25 mg PO QAM 05/23/22 07/28/23 (Benadryl) aspirin 81 mg tablet,delayed 81 mg PO DAILY 07/28/23 07/28/23 release calcipotriene 0.005 % topical cream 1 applic topical DAILY PRN .flare 07/28/23 07/28/23 ups doxepin 25 mg capsule 25 mg PO HS 07/28/23 07/28/23 dupilumab 300 mg/2 mL subcutaneous 300 mg subcut UD 07/28/23 07/28/23 pen injector (Kiddify) memantine 10 mg tablet 10 mg PO BID 07/28/23 07/28/23 pregabalin 150 mg capsule 150 mg PO TID 07/28/23 07/28/23 sodium chloride 0.65 % nasal spray 2 spray NA Q6H PRN Nasal Congestion 07/28/23 07/28/23 aerosol (Saline Mist) tamsulosin 0.4 mg capsule 0.4 mg PO DAILY 07/28/23 07/28/23 Previous Rx's Medication Instructions Recorded miconazole nitrate 2 % topical 1 applic EXT PRN PRN skin rash #85 06/06/22 powder (Desenex) grams Results & Data (ED) Vital Signs Vital Signs - 24 hr 07/28/23 10:00 07/28/23 10:00 07/28/23 10:00 Temperature 36.6 C Temperature Source Oral Pulse Rate 63 63 Pulse Rate [Finger] 63 Respiratory Rate 18 18 18 Respiratory Effort / Characteristics Non-Labored Spontaneous Non-Labored Spontaneous Respiratory Depth Normal Normal Respiratory Pattern Regular Regular Blood Pressure 156/75 H Blood Pressure [Right Arm] 156/75 H Blood Pressure Mean 102 Blood Pressure Mean [Right Arm] 102 Blood Pressure Position Lying Blood Pressure Position [Right Arm] Lying Pulse Oximetry 95 95 95 Oxygen Delivery Method Room Air Room Air Room Air Sepsis Recent Fever Within 48 Hours No Sepsis New/Unexplained Change in Mental Status N/A Sepsis Action Taken by Nursing No Action Required 07/28/23 11:16 07/28/23 11:22 07/28/23 12:04 Temperature Temperature Source Pulse Rate 63 Pulse Rate [Finger] 68 67 Respiratory Rate 18 18 Respiratory Effort / Characteristics Non-Labored Spontaneous Non-Labored Spontaneous Respiratory Depth Normal Normal Respiratory Pattern Regular Regular Blood Pressure Blood Pressure [Right Arm] 156/75 H 125/93 Blood Pressure Mean Blood Pressure Mean [Right Arm] 102 103 Blood Pressure Position Blood Pressure Position [Right Arm] Lying Lying Pulse Oximetry 98 94 Oxygen Delivery Method Room Air Room Air Sepsis Recent Fever Within 48 Hours Sepsis New/Unexplained Change in Mental Status Sepsis Action Taken by Nursing Laboratory Data 07/28/23 09:59 07/28/23 09:59 Lab Results 07/28/23 Range/Units 09:59 WBC 5.28 (4.8-10.8) K/ul RBC 3.53 L (4.20-5.40) M/uL Hgb 8.7 L (12.0-16.0) g/dl Hct 29.9 L (37.0-47.0) % MCV 84.7 (80.0-100.0) fL MCH 24.6 L (25.0-34.0) pg MCHC 29.1 L (32.0-36.0) g/dL RDW Std Deviation 58.9 H (36.4-46.3) fL RDW Coeff of Brandy 19.0 H (11.5-14.5) % Plt Count 132 (130-400) K/uL MPV 12.0 (9.4-12.4) fL Immature Gran % (Auto) 0.4 % Neut % (Auto) 48.5 % Lymph % (Auto) 31.8 % Warrick % (Auto) 14.2 % Eos % (Auto) 4.0 % Baso % (Auto) 1.1 % Neut # (Auto) 2.56 (1.40-6.50) K/uL Lymph # (Auto) 1.68 (1.20-3.40) K/uL Warrick # (Auto) 0.75 H (0.11-0.59) K/uL Eos # (Auto) 0.21 (0.00-0.50) K/uL Baso # (Auto) 0.06 (0.00-0.20) K/uL Immature Gran # (Auto) 0.02 (0.01-0.20) K/uL Sodium 139 (136-145) mmol/L Potassium 5.0 (3.5-5.1) mmol/L Chloride 110 H (98-107) mmol/L Carbon Dioxide 25 (21-32) mmol/L Anion Gap 4 (3-11) BUN 33 H (6-23) mg/dl Creatinine 1.72 H (0.6-1.2) mg/dl Est Cr Clr Drug Dosing 46.4 ml/min Est GFR ( Amer) 35.3 ml/min Est GFR (Non-Af Amer) 30.5 ml/min BUN/Creatinine Ratio 19.2 (10-20) Glucose 95 (70-99(Fasting)) mg/dl Calcium 8.8 (8.6-10.3) mg/dl Total Bilirubin 0.4 (0.2-1.0) mg/dl AST 15 (13-39) U/L ALT 7 (7-52) U/L Alkaline Phosphatase 62 (34-104) U/L Troponin I High Sens 8.9 (0-14) pg/ml Total Protein 6.7 (6.0-8.3) gm/dl Albumin 3.8 (3.4-5.0) gm/dl Globulin 2.9 (2.5-4.0) gm/dl Albumin/Globulin Ratio 1.3 (0.9-2) Administered Medications Acetaminophen (Acetaminophen 500 Mg Tab) 1,000 mg PO Q8H [facility] Stop: 08/27/23 14:14 Last Admin: 07/28/23 14:28 Dose: 1,000 mg Documented By: ELZA Oxycodone HCl (Oxycodone Hcl Ir 5 Mg Tab (Immediate Release)) 5 mg PO Q6H PRN PRN Reason: Mod-Sev Pain (Scale 4-10) Stop: 08/11/23 14:04 Last Admin: 07/28/23 15:30 Dose: 5 mg Documented By: SAGE Pregabalin (Pregabalin 150 Mg Cap) 150 mg PO TID PEGGY Stop: 08/27/23 14:29 Last Admin: 07/28/23 14:28 Dose: 150 mg Documented By: ELZA Discontinued Medications Hydromorphone HCl (Hydromorphone Inj 0.5 Mg/0.5 Ml Syr) 0.5 mg IV NOW STA Stop: 07/28/23 11:04 Last Admin: 07/28/23 11:14 Dose: 0.5 mg Documented By: PRIYAK Morphine Sulfate (Morphine Sulfate 4 Mg/Ml 1 Ml Carp\\Vial) 4 mg IV NOW STA Stop: 07/28/23 10:51 Last Admin: 07/28/23 11:06 Dose: Not Given Documented By: TNK Imaging Data Radiologist's Impression: Foot X-Ray 07/28/23 09:54 XR foot RT min 3V routine HISTORY: 68 years-old Female r lat mid foot pain acute right foot pain COMPARISON: Tibia and fibula radiographs of same day TECHNIQUE: 3 views of the right foot FINDINGS: Demineralized appearance of the bones. There is an acute to subacute appearing nondisplaced oblique fracture involving the distal metadiaphyseal fifth metatarsal without intra-articular involvement. Additionally, there is a partially corticated lucency involving the base of the fifth metatarsal. Large plantar calcaneal and the 05. Mild diffuse soft tissue swelling. 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 IMPRESSION: 1. Acute to subacute appearing nondisplaced fracture involves the distal fifth metatarsal. 2. Subacute to chronic nondisplaced fracture within the base of the fifth metatarsal which is partially united. ACT 112: Negative or not required by law. The above report was generated using voice recognition software. It may contain grammatical, syntax or spelling errors. Electronically signed by: Juan J Abad M.D. 07/28/2023 10:35 AM Knee X-Ray 07/28/23 09:54 XR knee RT 3V CLINICAL HISTORY: r knee pain COMPARISON STUDY: None. FINDINGS: Mildly displaced oblique fracture within the neck of the right fibula. No additional fractures within the right knee. No knee effusion. There is a right total knee arthroplasty. The hardware appears intact. Ossific densities superior to the patellar likely chronic. The bones are osteopenic. IMPRESSION: Mildly displaced oblique fracture within the neck of the right fibula. ACT 112: Negative or not required by law. Electronically signed by: Everardo Colin M.D. 07/28/2023 10:39 AM Tibia/Fibula X-Ray 07/28/23 09:54 RIGHT TIBIA AND FIBULA 2 VIEWS CLINICAL HISTORY: Right leg pain. FINDINGS: AP and crosstable lateral views of the right tibia and fibula are correlated with radiographs of the right knee dated 09/27/2014. The skeletal structures are osteopenic. There is an acute minimally offset fracture of the proximal fibular shaft with overlying soft tissue edema. The distal fibula appears intact. No tibial fracture is seen. A right knee arthroplasty is in near anatomic alignment. The ankle joint is grossly maintained. IMPRESSION: 1. Fracture of the proximal fibular shaft. 2. No tibial fracture is seen. Electronically signed by: Jonah Farris M.D. 07/28/2023 10:36 AM Discharge Plan Visit Data Chief Complaint: Fall ED Provider: Yannick Barbosa Discharge Problem: Closed fibular fracture, Metatarsal bone fracture, Ambulatory dysfunction Patient Disposition: Admitted As Inpatient Discharge Instructions Interventions: ED Discharge Assessment Last Done: 07/28/23 13:53 Discharge Problem: Closed fibular fracture Qualifiers: Encounter type: initial encounter Fibula location: proximal Fracture morphology: unspecified fracture morphology Laterality: right Qualified Code(s): S82.831A - Other fracture of upper and lower end of right fibula, initial encounter for closed fracture
[2023-07-28 10:18] LABS: Basophils # (auto) 0.06 K/uL (0.00-0.20); Basophils % (auto) 1.1 %; Eosinophils # (auto) 0.21 K/uL (0.00-0.50); Hematocrit (blood only) 29.9 % (37.0-47.0); Hemoglobin 8.7 g/dl (12.0-16.0); Immature Granulocytes # (auto) 0.02 K/uL (0.01-0.20); Immature Granulocytes % (auto) 0.4 %; Lymphocytes # (auto) 1.68 K/uL (1.20-3.40); Lymphocytes % (auto) 31.8 %; Mean Corpuscular Hemoglobin 24.6 pg (25.0-34.0); Mean Corpuscular Hgb Conc 29.1 g/dL (32.0-36.0); Mean Corpuscular Volume 84.7 fL (80.0-100.0); Monocytes # (auto) 0.75 K/uL (0.11-0.59); Monocytes % (auto) 14.2 %; Neutrophils # (auto) 2.56 K/uL (1.40-6.50); Neutrophils % (auto) 48.5 %; Platelet Count 132 K/uL (130-400); RDW Standard Deviation 58.9 fL (36.4-46.3); Red Blood Count 3.53 M/uL (4.20-5.40); White Blood Count 5.28 K/ul (4.8-10.8)
[2023-07-28 10:33] LABS: Albumin Globulin Ratio 1.3 (0.9-2); Albumin Level 3.8 gm/dl (3.4-5.0); BUN Creatinine Ratio 19.2 (10-20); Bilirubin,Total 0.4 mg/dl (0.2-1.0); Calcium 8.8 mg/dl (8.6-10.3); Creatinine Clr Calc Pharmacy 46.4 ml/min; Est GFR (African American) 35.3 ml/min; Est GFR (Non-African American) 30.5 ml/min; Globulin 2.9 gm/dl (2.5-4.0); Total Protein 6.7 gm/dl (6.0-8.3)
--- NOTE | 2023-07-28 10:38 | XRay Report ---
RIGHT TIBIA AND FIBULA 2 VIEWS CLINICAL HISTORY: Right leg pain. FINDINGS: AP and crosstable lateral views of the right tibia and fibula are correlated with radiograp hs of the right knee dated 09/27/2014. The skeletal structures are osteopenic. There is an acute minima lly offset fracture of the proximal fibular shaft with overlying soft tissue edema. The distal fibula appears intact. No tibial fracture is seen. A right knee arthroplasty is in near anatomic alignment. The ankle joint is grossly maintained. IMPRESSION: 1. Fracture of the proximal fibular shaft. 2. No tibial fracture is seen. Electronically signed by: Jonah Farris M.D. 07/28/2023 10:36 AM
--- NOTE | 2023-07-28 10:38 | XRay Report ---
XR foot RT min 3V routine HISTORY: 68 years-old Female r lat mid foot pain acute right foot pain COMPARISON: Tibia and fibula radiographs of same day TECHNIQUE: 3 views of the right foot FINDINGS: Demineralized appearance of the bones. There is an acute to subacute appearing nondisplaced oblique f racture involving the distal metadiaphyseal fifth metatarsal without intra-articular involvement. Add itionally, there is a partially corticated lucency involving the base of the fifth metatarsal. Large plantar calcaneal and the 05. Mild diffuse soft tissue swelling. Multifocal osteoarthritis is predomi nantly mild. IMPRESSION: 1. Acute to subacute appearing nondisplaced fracture involves the distal fifth metatarsal. 2. Subacute to chronic nondisplaced fracture within the base of the fifth metatarsal which is partial ly united. ACT 112: Negative or not required by law. The above report was generated using voice recognition software. It may contain grammatical, syntax o r spelling errors. Electronically signed by: Juan J Abad M.D. 07/28/2023 10:35 AM
[2023-07-28 10:39] LABS: Troponin I High Sensitivity 8.9 pg/ml (0-14)
--- NOTE | 2023-07-28 10:40 | XRay Report ---
XR knee RT 3V CLINICAL HISTORY: r knee pain COMPARISON STUDY: None. FINDINGS: Mildly displaced oblique fracture within the neck of the right fibula. No additional fractu res within the right knee. No knee effusion. There is a right total knee arthroplasty. The hardware a ppears intact. Ossific densities superior to the patellar likely chronic. The bones are osteopenic. IMPRESSION: Mildly displaced oblique fracture within the neck of the right fibula. ACT 112: Negative or not required by law. Electronically signed by: Everardo Colin M.D. 07/28/2023 10:39 AM
[2023-07-28] MEDS: MoRPHine SULFATE 4 MG/ML 1 ML CARP\\VIAL IV STA (11:06)
[2023-07-28] MEDS: HYDROmorphone INJ 0.5 MG/0.5 ML SYR IV STA (11:14)
--- NOTE | 2023-07-28 12:32 | History & Physical Report ---
Date of Service July 28, 2023 Assessment & Plan (1) Closed fracture of proximal end of right fibula: (2) Metatarsal bone fracture: (3) Fall: Plan: Patient is 68 year old female with PMH CAD, PAF s/p watchman in 2022, HTN, HLD, severe aortic stenosis, chronic anemia, CKD III, anxiety, depression, obesity, bullous pemphigoid, and others listed below presented to ER with complaint of fall and right leg pain today after walking and feeling dizzy and "leg shakin ess". Denies syncope, LOC, hitting head or CP. Chronic exertional SOB and dizziness with known severe aortic stenosis. Right knee x-ray, Tib/fib xray: Mildly displaced oblique fracture within the nec k of the right fibula. Right foot xray: Acute to subacute appearing nondisplaced fracture involves the distal fifth metatarsal. Subacute to chronic nondisplaced fracture within the base of the fifth metatarsal which is partially united. EKG sinus bradycardia without significant ST changes ?If fall cardiac in nature with history symptomatic In ER given Dilaudid 0.5mg with relief of pain Scheduled Tylenol, oxycodone prn pain Splint RLE Will make non-weight bearing right leg pending further recommendations by ortho Will consult cardiology in regards to hx severe Ortho consult PT/OT consult when appropriate CBC, BMP in am (4) Severe aortic stenosis: Plan: Chronic exertional SOB and dizziness with known severe aortic stenosis. 05/16/23 Echo: EF: 55-59%, severe Is scheduled to see interventional cardiology at [facility] [place] for upcoming cardiac cath and consideration of TAVR Appears euvolemic currently Cardiology consult (5) Chronic anemia: Plan: Hgb: 8.7. Was 8.9 on 03/31/23, 04/28/23 Monitor H&H (6) Stage 3 chronic kidney disease: Plan: Cr: 1.7. Baseline Cr: 1.5-1.6 Monitor renal functions (7) CAD (coronary artery disease): Plan: Cardiac cath 2016 with moderate diffuse irregularities Denies CP Continue aspirin, atorvastatin, metoprolol succinate, lisinopril (8) Paroxysmal atrial fibrillation: Plan: S/P Watchman 2022 Current sinus rhythm (9) Dyslipidemia: Plan: Continue atorvastatin (10) Hypertension: Plan: Continue lisinopril, metoprolol succinate (11) Anxiety and depression: Plan: Continue duloxetine, buspirone (12) Bullous pemphigoid: Plan: On Dupixent Follows with dermatology #Obesity BMI: 47 DVT Prophylaxis Heparin SQ Full Code as per discussion with pt Follows with Dr Plascencia for routine care Pt was seen and care coordinated with Dr Pérez. See addendum I spent a total of 77 minutes reviewing notes, outpatient records, labs, medication, coordinating, documenting and providing care for this patient excluding time spent in the performance of separately billed services. History of Present Illness Chief Complaint: Fall, leg pain Primary Care Provider: Nikunj Plascencia MD Patient is 68 year old female with PMH CAD, PAF s/p watchman in 2022, HTN, HLD, severe aortic stenosis, chronic anemia, CKD III, anxiety, depression, obesity, bullous pemphigoid, and others listed below presented to ER with complaint of fall and right leg pain today. History obtained from patient and inpatient and outpatient chart review. Patient states today she walked out to kitchen to give her dog a shot when she suddenly felt like legs were shaky and felt some dizziness. She tried to grab on to the fridge but fell. She denies hitting head and denies any syncope or LOC. Denies chest pain. States did feel SOB with walking. Patient reports has been having dizziness and SOB with walking that has been ongoing and is scheduled for upcoming cardiac cath evaluation for consideration of valve replacement. She does not feel her exertional SOB or dizziness are worse than baseline. States chronic left knee pain and chronic back pain that she feels is at baseline. Reports walks with cane or a walker. Lives with her sister. In ER given Dilaudid 0.5mg and currently reports no pain. Denies fever/chills, diaphoresis, N/V/D/C, SUE, vision changes, neck pain, CP, SOB, orthopnea, palpitations, cough, sore throat, choking, otalgia, rhinorrhea, abdominal pain, paresthesias, extremity edema, rashes, urinary symptoms, upper extremity pain, hip pain, ankle or foot pain. Allergies Allergy/AdvReac Type Severity Reaction Status Date / Time egg AdvReac Intermediate GI upset Verified 07/28/23 12:29 ibuprofen AdvReac Intermediate stomach Verified 06/07/24 12:29 irritation morphine AdvReac Intermediate LEGS SWELL Verified 07/28/23 12:29 Home Medications Medication Instructions Recorded Confirmed Type atorvastatin 80 mg tablet 80 mg PO QPM 06/16/18 07/28/23 History cholecalciferol (vitamin D3) 25 1,000 unit PO QAM 06/16/18 07/28/23 History mcg (1,000 unit) tablet (Vitamin D3) cyanocobalamin (vitamin B-12) 1,000 mcg PO QAM 06/16/18 07/28/23 History 1,000 mcg tablet (Vitamin B-12) fish, borage, flaxseed oils-omega 1 cap PO QAM 06/16/18 07/28/23 History 3,6,9 comb no.1 1,200 mg capsule ([place] 3-6-9) folic acid 800 mcg tablet 0.8 mg PO QAM 06/16/18 07/28/23 History ascorbic acid (vitamin C) 250 mg 250 mg PO QAM 12/13/19 07/28/23 History tablet docusate sodium 100 mg capsule 100 mg PO BID 12/13/19 07/28/23 History (Colace) duloxetine 60 mg capsule,delayed 120 mg PO DAILY 03/16/20 07/28/23 History release (Cymbalta) lisinopril 10 mg tablet 10 mg PO HS 03/16/20 07/28/23 History metoprolol succinate 50 mg 25 mg PO BID 03/16/20 07/28/23 History tablet,extended release 24 hr buspirone 10 mg tablet 10 mg PO BID 06/23/21 07/28/23 History sumatriptan succinate 25 mg tablet 25 mg PO DIRECTED PRN Migraine 08/28/21 07/28/23 History Headache betamethasone dipropionate 0.05 % 1 applic topical BID PRN RASH 03/01/22 07/28/23 History topical ointment FACE/TRUNK/ARMS oxybutynin chloride 5 mg 5 mg PO QPM 03/01/22 07/28/23 History tablet,extended release 24 hr tacrolimus 0.1 % topical ointment 1 applic topical BID PRN AFFECTED 03/01/22 07/28/23 History AREAS ON FACE clotrimazole 1 % topical cream 1 applic topical DIRECTED PRN 05/23/22 07/28/23 History Itching diphenhydramine HCl 25 mg capsule 25 mg PO QAM 05/23/22 07/28/23 History (Benadryl) miconazole nitrate 2 % topical 1 applic EXT PRN PRN skin rash #85 06/06/22 07/28/23 Rx powder (Desenex) grams aspirin 81 mg tablet,delayed 81 mg PO DAILY 07/28/23 07/28/23 History release calcipotriene 0.005 % topical cream 1 applic topical DAILY PRN .flare 07/28/23 07/28/23 History ups doxepin 25 mg capsule 25 mg PO HS 07/28/23 07/28/23 History dupilumab 300 mg/2 mL subcutaneous 300 mg subcut UD 07/28/23 07/28/23 History pen injector (Dupixent) memantine 10 mg tablet 10 mg PO BID 07/28/23 07/28/23 History pregabalin 150 mg capsule 150 mg PO TID 07/28/23 07/28/23 History sodium chloride 0.65 % nasal spray 2 spray NA Q6H PRN Nasal Congestion 07/28/23 07/28/23 History aerosol (Saline Mist) tamsulosin 0.4 mg capsule 0.4 mg PO DAILY 07/28/23 07/28/23 History Past Med/Surg History Problem List (Updated 07/28/23 @ 15:45 by Yannick Barbosa DO) Ambulatory dysfunction (Acute) Metatarsal bone fracture (Acute) Closed fibular fracture (Acute) Fall Presence of Watchman left atrial appendage closure device Paroxysmal atrial fibrillation Bullous pemphigoid Chronic anemia Severe aortic stenosis Closed fracture of proximal end of right fibula Paroxysmal atrial fibrillation Moderate aortic stenosis Atypical chest pain Chest pain (Acute) Acute anterior epistaxis (Acute) Hiatal hernia Uncontrolled hypertension Obesity (Acute) Atrial flutter, paroxysmal Aortic stenosis Bicuspid aortic valve Chronic low back pain GERD (gastroesophageal reflux disease) Dyslipidemia Atrial flutter, paroxysmal Candidal intertrigo DVT prophylaxis Chest pain (Acute) Neurogenic claudication due to lumbar spinal stenosis Feeling of incomplete bladder emptying Anemia Stage 3 chronic kidney disease (Acute) Anxiety and depression CAD (coronary artery disease) non-obstructive Hypertension (Acute) Medical History Nose septum perforation Chronic low back pain Sacroiliitis IBS (irritable bowel syndrome) Borderline diabetes mellitus A-fib "i think i have a-fib." -- on eliquis -- follows with Dr. Torres History of TIA (transient ischemic attack) 2016 Cardiac murmur History of skin cancer History of COVID-19 02/2020; generalized weakness, diarrhea, sob, fever, body aches; hospitalized x 1 week; c/o ongoing brain fog since having covid Verbalizes suicidal thoughts COVID-19 Nocturia Acute urinary retention Back pain Renal failure Morbid obesity BMI 50.5 Carotid artery stenosis "mild" Aortic stenosis Mild (per cardiology review) aortic stenosis with possible bicuspid aortic valve (MG 19mmhg, NIKKIE 3.0) per 05/2018 ECHO Anemia Osteoporosis GERD (gastroesophageal reflux disease) controlled Chronic back pain High cholesterol Hx of falling last fall 09/2018- per patient, related to LBP/balance issues- ? r/t ambulatory dysfunction- improved with cane/walker use Surgical History History of right cataract extraction S/P epidural steroid injection History of appendectomy History of cardiac cath 2017= NO STENTS History of right knee joint replacement History of back surgery Hx of laparoscopy History of kyphoplasty Family History Father Stroke Slow to wake up after anesthesia Myocardial infarction, Onset Age: 40 Mother Stroke Myocardial infarction, Onset Age: 60 Sister Myocardial infarction, Onset Age: 60 Social History Smoking Status: Former smoker Tobacco Type: Cigarettes Second Hand Exposure: Yes; Do You Dip or Chew Tobacco: No; Hx Alcohol Use: No Hx Substance Use: No Preferred Language: Haitian Communication Ability: Effective Visual Impairment: No Limitations Hearing Ability: Normal 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 Beliefs That Will Affect Care: None marital status: Single Current Living Situation: Family Current Living Situation Comment: Lives with sister current occupational status: unemployed and disabled Feels Safe at Home: Yes Assistive Devices: Cane and Walker Review of Systems Review of Systems: All systems reviewed & are unremarkable except as noted in HPI & below Physical Exam Physical Exam: General: no acute distress currently, obese Head: normocephalic, atraumatic Eyes: PERRL, EOM's intact, conjunctiva non-injected, anicteric ENT: normal inspection external ears, nose, mucous membranes moist Neck: supple, trachea midline, non-tender Lungs: clear, no respiratory distress, no wheezing/rhonchi/rales CV: RRR, +systolic murmur, trace pretibial edema Abd: protuberant, normal BS, soft, non-tender Back: no spinous process tenderness to palpation Ext: no cyanosis, no erythema, no calf tenderness, UE: ROM intact of bilateral shoulders, elbows, wrists and fingers, non-tender to active ROM. RLE: active flexion and extension intact of hip, knee and ankle, non-tender to palpation, distal pulses intact. LLE: active flexion and extension of hip, +healed surgical scar anterior knee, able to partially active flex and extend with some tenderness, +tenderness to palpation proximal lateral aspect of lower leg without noted ecchymosis, foot without ecchymosis and is non-tender to palpation, distal pulses intact Neuro: A&O x 3, no focal deficits noted, normal affect Skin: warm, dry, +skin abrasion right lateral upper leg with slight surrounding erythema, +ecchymosis right arm Results & Data Results & Data Vital Signs (Past 12 Hours) Vital Signs Temp Pulse Pulse Resp BP BP Pulse Ox 07/28/23 12:04 67 18 125/93 94 07/28/23 11:22 63 07/28/23 11:16 68 18 156/75 H 98 07/28/23 10:00 63 18 95 07/28/23 10:00 63 18 156/75 H 95 07/28/23 10:00 36.6 C 63 18 156/75 H 95 O2 Del Method 07/28/23 12:04 Room Air 07/28/23 11:22 07/28/23 11:16 Room Air 07/28/23 10:00 Room Air 07/28/23 10:00 Room Air 07/28/23 10:00 Room Air Laboratory Results Short CBC 07/28/23 Range/Units 09:59 WBC 5.28 (4.8-10.8) K/ul Hgb 8.7 L (12.0-16.0) g/dl Hct 29.9 L (37.0-47.0) % Plt Count 132 (130-400) K/uL BMP 07/28/23 09:59 Sodium 139 Potassium 5.0 Chloride 110 H Carbon Dioxide 25 BUN 33 H Creatinine 1.72 H Glucose 95 Calcium 8.8 Liver Function 07/28/23 Range/Units 09:59 Total Bilirubin 0.4 (0.2-1.0) mg/dl AST 15 (13-39) U/L ALT 7 (7-52) U/L Alkaline Phosphatase 62 (34-104) U/L Albumin 3.8 (3.4-5.0) gm/dl Diagnostic Findings Foot X-Ray 07/28/23 09:54 XR foot RT min 3V routine HISTORY: 68 years-old Female r lat mid foot pain acute right foot pain COMPARISON: Tibia and fibula radiographs of same day TECHNIQUE: 3 views of the right foot FINDINGS: Demineralized appearance of the bones. There is an acute to subacute appearing nondisplaced oblique fracture involving the distal metadiaphyseal fifth metatarsal without intra-articular involvement. Additionally, there is a partially corticated lucency involving the base of the fifth metatarsal. Large plantar calcaneal and the 05. Mild diffuse soft tissue swelling. 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 IMPRESSION: 1. Acute to subacute appearing nondisplaced fracture involves the distal fifth metatarsal. 2. Subacute to chronic nondisplaced fracture within the base of the fifth metatarsal which is partially united. ACT 112: Negative or not required by law. The above report was generated using voice recognition software. It may contain grammatical, syntax or spelling errors. Electronically signed by: Juan J Abad M.D. 07/28/2023 10:35 AM Knee X-Ray 07/28/23 09:54 XR knee RT 3V CLINICAL HISTORY: r knee pain COMPARISON STUDY: None. FINDINGS: Mildly displaced oblique fracture within the neck of the right fibula. No additional fractures within the right knee. No knee effusion. There is a right total knee arthroplasty. The hardware appears intact. Ossific densities superior to the patellar likely chronic. The bones are osteopenic. IMPRESSION: Mildly displaced oblique fracture within the neck of the right fibula. ACT 112: Negative or not required by law. Electronically signed by: Everardo Colin M.D. 07/28/2023 10:39 AM Tibia/Fibula X-Ray 07/28/23 09:54 RIGHT TIBIA AND FIBULA 2 VIEWS CLINICAL HISTORY: Right leg pain. FINDINGS: AP and crosstable lateral views of the right tibia and fibula are correlated with radiographs of the right knee dated 09/27/2014. The skeletal structures are osteopenic. There is an acute minimally offset fracture of the proximal fibular shaft with overlying soft tissue edema. The distal fibula appears intact. No tibial fracture is seen. A right knee arthroplasty is in near anatomic alignment. The ankle joint is grossly maintained. IMPRESSION: 1. Fracture of the proximal fibular shaft. 2. No tibial fracture is seen. Electronically signed by: Jonah Farris M.D. 07/28/2023 10:36 AM ECG Additional Comments: poor tracing, sinus bradycardia, rate 59, no significant ST elevation noted Supervising Physician Co-Signing Physician Notes I have seen and discussed the case with the collaborating advanced practitioner. I agree with the above H&P. I have reviewed and confirmed the patients medical history, the findings on physical examination, and the patients diagnosis and treatment plan with Sunil BATISTA and agree with the information documented. In short, Ms. Paulino is a 68 year old woman with with bicuspid aortic valve, aortic stenosis undergoing evaluation for TAVR, paroxysmal atrial fibrillation s/p watchman 09/2022, HTN, CKD III admitted for management of right fibular fracture and presyncopal fall. Patient states she felt SOB and dizzy, noting her legs giving out prompting her fall. She denies chest pain, palpitations, SOB, or other acute symptoms. Patient reports progressive dizziness/sob with her aortic stenosis. GENERAL APPEARANCE: AxOx4, no acute distress. HEENT: NC, AT. MMM. EOMI, clear conjunctiva, oropharynx clear. NECK: large habitus HEART: loud holosystolic murmur LUNGS: CTAB, moving air well. No crackles or wheezes are heard. ABDOMEN: Soft, nontender, nondistended with good bowel sounds heard. BACK: No CVAT, no obvious deformity. EXTREMITIES: Without cyanosis, clubbing or edema, no deformity of right LE noted, sensation/pulses/motor in tact NEUROLOGICAL: Grossly nonfocal. Alert and oriented, moving all 4 extremities. CN not formally tested but appear grossly intact. Skin: Warm and dry without any rash. #Proximal right fibular fracture #Acute/subacute fifth metatarsal, chronic displaced fractures ortho consult PT/OT #Presyncope with fall #Severe aortic stenosis, symptomatic #Non-obstructive CAD, cath 2017 Echocardiogram on 05/16/2023 shows EF 55-59% with severe aortic stenosis, Aortic valve velocity 4.0 m/s, mild aortic regurgitation SX: shortness of breath, chest discomfort, and fatigue Events around fall concerning given degree of stenosis and circumstances; Cards consult to assess if patient should transfer if event is felt to be cardiogenic #Chronic normocytic anemia iso kidney disease, recent OP labs with baseline of ~8-9 no signs of bleeding or reports of bleed am anemia labs for optimization # Paroxysmal atrial fibrillation No significant palpitations, s/p watchman 2/2 severe epistaxis and nasal septal perforation Monitor on tele #HLD continue statin #CKDIII Baseline ~1.5, 1.7 on admission Repeat BMP in am avoid nephrotoxic agents #Morbid obesity #Ambulatory Dysfunction BMI 49.6 on wegovy at home PT/OT rest of plan as above I spent a total of 35 minutes coordinating, documenting, and providing care for this patient excluding time spent in the performance of separately billed services. All of the aforementioned completed outside of collaborating with the assigned advanced practitioner for a full treatment plan. I have reviewed the advanced practitioner's documentation, and I agree with, and take responsibility for the plan of care (6) Stage 3 chronic kidney disease Chronic kidney disease stage 3 subtype: unspecified whether 3a or 3b Qualified Code(s): N18.30 - Chronic kidney disease, stage 3 unspecified (10) Hypertension Hypertension type: primary hypertension Qualified Code(s): I10 - Essential (primary) hypertension
[2023-07-28] MEDS ORDERED: CLOTRIMAZOLE 1% CR 15 GM TUBE TOP PRN (14:05)
[2023-07-28] MEDS ORDERED: SODIUM CHLORIDE 0.65% NA SOLN 45 ML (OCEAN) PRN (14:05)
[2023-07-28] MEDS ORDERED: ONDANSETRON INJ 2 MG/ML 2 ML VIAL IV PRN (14:05)
--- NOTE | 2023-07-28 14:06 | Cardiology Consultation ---
Date of Consultation July 28, 2023 Assessment & Plan (1) Severe aortic stenosis: (2) Fall: (3) Paroxysmal atrial fibrillation: (4) Presence of Watchman left atrial appendage closure device: (5) CAD (coronary artery disease): Plan 68-year-old female presents emergency department after mechanical fall due to lower extremity weakness. Chronically ambulating with use of walker as well as cane at home due to chronic musculoskeletal weakness. No overt syncope. Dyspnea on exertion/limited exercise capacity unchanged over the past few weeks. Echocardiogram and transesophageal echocardiogram demonstrating trileaflet aortic valve with severe aortic stenosis. She is scheduled for coronary angiography and CT in preparation for TAVR next week. Recommend proceeding with diagnostic studies as ordered. No further inpatient testing recommended at this time. Management of fibular fracture as per orthopedics. Pain control per internal medicine. I spent a total of 60 minutes on the date of service in preparation, delivery, and documentation of the care provided to this patient, excluding any time spent in the performance of separately billed services. History of Present Illness Reason for Consultation: severe aortic stenosis, fall Requesting Physician: Dr. Shara Pérez Attending Physician: Dr. Shara Pérez History of Present Illness 68-year-old female present to the emergency department after a fall. She was ambulating to the refrigerator with her cane. Upon opening refrigerator her legs felt weak and she collapsed to the floor. Denies lightheadedness, dizziness, syncope, or near syncope. Has noted progressive lower extremity weakness over the past 6 to 12 months. Reduce the distance which she was walking her dog. Complains of exertional dyspnea. Recent echocardiogram demonstrating progression of aortic stenosis, now severe. She was evaluated by the valve clinic and is currently scheduled for diagnostic coronary angiography next week followed by a CT of the chest in preparation for TAVR. Patient denies chest pain, palpitation, orthopnea, PND, weight gain, or lower extremity edema. X-ray confirms fracture of the proximal fibular shaft. Currently pain controlled. Allergies Allergy/AdvReac Type Severity Reaction Status Date / Time egg AdvReac Intermediate GI upset Verified 07/28/23 12:29 ibuprofen AdvReac Intermediate stomach Verified 07/28/23 12:29 irritation morphine AdvReac Intermediate LEGS SWELL Verified 07/28/23 12:29 Home Medications Medication Instructions Recorded Confirmed Type atorvastatin 80 mg tablet 80 mg PO QPM 06/16/18 07/28/23 History cholecalciferol (vitamin D3) 25 1,000 unit PO QAM 06/16/18 07/28/23 History mcg (1,000 unit) tablet (Vitamin D3) cyanocobalamin (vitamin B-12) 1,000 mcg PO QAM 06/16/18 07/28/23 History 1,000 mcg tablet (Vitamin B-12) fish, borage, flaxseed oils-omega 1 cap PO QAM 06/16/18 07/28/23 History 3,6,9 comb no.1 1,200 mg capsule ([place] 3-6-9) folic acid 800 mcg tablet 0.8 mg PO QAM 06/16/18 07/28/23 History ascorbic acid (vitamin C) 250 mg 250 mg PO QAM 12/13/19 07/28/23 History tablet docusate sodium 100 mg capsule 100 mg PO BID 12/13/19 07/28/23 History (Colace) duloxetine 60 mg capsule,delayed 120 mg PO DAILY 03/16/20 07/28/23 History release (Cymbalta) lisinopril 10 mg tablet 10 mg PO HS 03/16/20 07/28/23 History metoprolol succinate 50 mg 25 mg PO BID 03/16/20 07/28/23 History tablet,extended release 24 hr buspirone 10 mg tablet 10 mg PO BID 06/23/21 07/28/23 History sumatriptan succinate 25 mg tablet 25 mg PO DIRECTED PRN Migraine 08/28/21 07/28/23 History Headache betamethasone dipropionate 0.05 % 1 applic topical BID PRN RASH 03/01/22 07/28/23 History topical ointment FACE/TRUNK/ARMS oxybutynin chloride 5 mg 5 mg PO QPM 03/01/22 07/28/23 History tablet,extended release 24 hr tacrolimus 0.1 % topical ointment 1 applic topical BID PRN AFFECTED 03/01/22 07/28/23 History AREAS ON FACE clotrimazole 1 % topical cream 1 applic topical DIRECTED PRN 05/23/22 07/28/23 History Itching diphenhydramine HCl 25 mg capsule 25 mg PO QAM 05/23/22 07/28/23 History (Benadryl) miconazole nitrate 2 % topical 1 applic EXT PRN PRN skin rash #85 06/06/22 07/28/23 Rx powder (Desenex) grams aspirin 81 mg tablet,delayed 81 mg PO DAILY 07/28/23 07/28/23 History release calcipotriene 0.005 % topical cream 1 applic topical DAILY PRN .flare 07/28/23 07/28/23 History ups doxepin 25 mg capsule 25 mg PO HS 07/28/23 07/28/23 History dupilumab 300 mg/2 mL subcutaneous 300 mg subcut UD 07/28/23 07/28/23 History pen injector (Dupixent) memantine 10 mg tablet 10 mg PO BID 07/28/23 07/28/23 History pregabalin 150 mg capsule 150 mg PO TID 07/28/23 07/28/23 History sodium chloride 0.65 % nasal spray 2 spray NA Q6H PRN Nasal Congestion 07/28/23 07/28/23 History aerosol (Saline Mist) tamsulosin 0.4 mg capsule 0.4 mg PO DAILY 07/28/23 07/28/23 History Patient History Medical History Nose septum perforation Chronic low back pain Sacroiliitis IBS (irritable bowel syndrome) Borderline diabetes mellitus A-fib "i think i have a-fib." -- on eliquis -- follows with Dr. Torres History of TIA (transient ischemic attack) 2016 Cardiac murmur History of skin cancer History of COVID-19 02/2020; generalized weakness, diarrhea, sob, fever, body aches; hospitalized x 1 week; c/o ongoing brain fog since having covid Verbalizes suicidal thoughts COVID-19 Nocturia Acute urinary retention Back pain Renal failure Morbid obesity BMI 50.5 Carotid artery stenosis "mild" Aortic stenosis Mild (per cardiology review) aortic stenosis with possible bicuspid aortic valve (MG 19mmhg, NIKKIE 3.0) per 05/2018 ECHO Anemia Osteoporosis GERD (gastroesophageal reflux disease) controlled Chronic back pain High cholesterol Hx of falling last fall 09/2018- per patient, related to LBP/balance issues- ? r/t ambulatory dysfunction- improved with cane/walker use Surgical History History of right cataract extraction S/P epidural steroid injection History of appendectomy History of cardiac cath 2017= NO STENTS History of right knee joint replacement History of back surgery Hx of laparoscopy History of kyphoplasty Family History Father Stroke Slow to wake up after anesthesia Myocardial infarction, Onset Age: 40 Mother Stroke Myocardial infarction, Onset Age: 60 Sister Myocardial infarction, Onset Age: 60 Social History Smoking Status: Former smoker Tobacco Type: Cigarettes Second Hand Exposure: Yes; Do You Dip or Chew Tobacco: No; Hx Alcohol Use: No Hx Substance Use: No Preferred Language: German Communication Ability: Effective Visual Impairment: No Limitations Hearing Ability: Normal Mosaic Tile Maker Required: No Beliefs That Will Affect Care: None marital status: Single Current Living Situation: Family Current Living Situation Comment: Lives with sister current occupational status: unemployed and disabled Feels Safe at Home: Yes Assistive Devices: Walker Review of Systems Review of Systems: All systems reviewed & are unremarkable except as noted in Subjective Physical Exam Constitutional: well nourished; no acute distress Respiratory: no respiratory distress, no labored breathing and no retractions Auscultation: no crackles, no rales, no rhonchi and no wheezes Cardiovascular: Rate/Rhythm: regular rate and regular rhythm Heart Sounds: normal S1, normal S2 (Diminished) and + murmur (3/6 late peaking medium pitched systolic ejection murmur heard best at the ) Vessels: radial pulses present; no JVD and no carotid bruit Extremities: no edema Gastrointestinal (Abdomen): Inspection/Auscultation: abdomen normal to inspection and normal bowel sounds; abdomen not distended Percussion/Palpation: abdomen soft; abdomen nontender, no guarding and abdomen not rigid Neurologic: CN's II-XI intact bilaterally and moves all extremities; no focal motor deficits Results & Data Vital Signs (Past 12 Hours) Vital Signs Temp Pulse Pulse Resp BP BP Pulse Ox 07/28/23 13:53 07/28/23 13:01 70 18 146/75 H 07/28/23 12:04 67 18 125/93 94 07/28/23 11:22 63 07/28/23 11:16 68 18 156/75 H 98 07/28/23 10:00 63 18 95 07/28/23 10:00 63 18 156/75 H 95 07/28/23 10:00 36.6 C 63 18 156/75 H 95 O2 Del Method 07/28/23 13:53 Room Air 07/28/23 13:01 07/28/23 12:04 Room Air 07/28/23 11:22 07/28/23 11:16 Room Air 07/28/23 10:00 Room Air 07/28/23 10:00 Room Air 07/28/23 10:00 Room Air Laboratory Results Cardiac Enzymes 07/28/23 Range/Units 09:59 AST 15 (13-39) U/L Troponin I High Sens 8.9 (0-14) pg/ml CBC 07/28/23 Range/Units 09:59 WBC 5.28 (4.8-10.8) K/ul RBC 3.53 L (4.20-5.40) M/uL Hgb 8.7 L (12.0-16.0) g/dl Hct 29.9 L (37.0-47.0) % Plt Count 132 (130-400) K/uL Neut # (Auto) 2.56 (1.40-6.50) K/uL Lymph # (Auto) 1.68 (1.20-3.40) K/uL [place] # (Auto) 0.75 H (0.11-0.59) K/uL Eos # (Auto) 0.21 (0.00-0.50) K/uL Baso # (Auto) 0.06 (0.00-0.20) K/uL Comprehensive Metabolic Panel 07/28/23 Range/Units 09:59 Sodium 139 (136-145) mmol/L Potassium 5.0 (3.5-5.1) mmol/L Chloride 110 H (98-107) mmol/L Carbon Dioxide 25 (21-32) mmol/L BUN 33 H (6-23) mg/dl Creatinine 1.72 H (0.6-1.2) mg/dl Glucose 95 (70-99(Fasting)) mg/dl Calcium 8.8 (8.6-10.3) mg/dl AST 15 (13-39) U/L ALT 7 (7-52) U/L Alkaline Phosphatase 62 (34-104) U/L Total Protein 6.7 (6.0-8.3) gm/dl Albumin 3.8 (3.4-5.0) gm/dl Intake and Output 07/27/23 07/28/23 07/28/23 22:59 06:59 14:59 Other: Weight 139.4 kg Weight Measurement Method Built in [facility] Patient Weight 07/29/23 06:59 Weight 139.4 kg (2) Fall Encounter type: initial encounter Qualified Code(s): W19.XXXA - Unspecified fall, initial encounter (5) CAD (coronary artery disease) Associated angina: without angina Coronary Disease-Associated Artery/Lesion type: [place] artery [place] vs. transplanted heart: [place] heart Qualified Code(s): I25.10 - Atherosclerotic heart disease of [place] coronary artery without angina pectoris
[2023-07-28] MEDS: ACETAMINOPHEN 500 MG TAB PO SCH (14:28)
[2023-07-28] MEDS: PREGABALIN 150 MG CAP PO SCH (14:28)
--- NOTE | 2023-07-28 15:11 | XRay Report ---
XR chest 1V portable HISTORY: fall, h/o COMPARISON: Chest 06/05/2022. FINDINGS: There are low lung volumes. No pneumothorax. No pleural effusions. The heart remains mildly enlarged. There are calcifications within the aortic knob. No focal lung consolidations to suggest p neumonia. No evidence for pulmonary edema. Degenerative changes within the shoulders. IMPRESSION: Low lung volumes and mild cardiomegaly. Otherwise, no acute process within the chest. ACT 112: Negative or not required by law. Electronically signed by: Everardo Colin M.D. 07/28/2023 3:10 PM
[2023-07-28] MEDS: oxyCODONE HCL IR 5 MG TAB (IMMEDIATE RELEASE) PO PRN (15:30)
--- NOTE | 2023-07-28 17:04 | Orthopedic Consultation ---
Date of Consultation July 28, 2023 Assessment & Plan (1) Closed fibular fracture: Patient has a proximal right fibular fracture. We will plan to allow her out of bed, weight-bear as tolerated on the right lower extremity with the assistance of a walker. She will need a postop shoe on her right foot for fifth metatarsal fracture. Ice and elevation as needed for swelling of the right leg. She can do full range of motion of the knee and ankle as tolerated. We will place an order for physical therapy and Occupational Therapy. She may be out of bed as tolerated with assistance. Tylenol and/or ibuprofen as needed for pain. Her hemoglobin is low at 8.7 and this may have contributed to her unsteadiness earlier today. We will recheck during her inpatient stay and will recommend follow-up as an outpatient in approximately 2 weeks for reevaluation and x-rays of the foot and leg. (2) Metatarsal bone fracture: Weight-bear as tolerated with postop shoe. Ice and elevate as needed for pain and swelling. Use walker at all times with ambulation. PT and OT as ordered.We will follow while inpatient. Will schedule outpatient follow-up for reevaluation and x-ray in approximately 2 weeks. Patient understands and agrees with plan. Dr. Best was present for today's visit. History of Present Illness Reason for Consultation: Right fibula fracture right foot fracture Attending Physician: Shara Pérez MD History of Present Illness Patient is a 68-year-old female who presented to the emergency room today after sustaining a fall in her kitchen. She states she was getting insulin for her dog out of the refrigerator and felt unsteady and her legs gave out. She thinks she fell directly onto the right leg. She had to crawl to the phone she was unable to get up. X-rays in the emergency room were taken of her right leg, knee and foot and show a spiral fracture of the right proximal fibula and a probable fracture of the right fifth metatarsal. She was admitted by the medicine service and orthopedic consultation was placed for further evaluation and treatment. She denies any previous right leg pain. She is states that she has some numbness and tingling down the right outer aspect of her leg. She was unable to weight-bear. She uses an upright walker on a daily basis. She lives with her sister in a 1 floor apartment. She states that she has a history of low back pain with "nerve damage" in the past. She states all of the damage was around her right buttock area. She d enies any numbness or tingling down her leg prior to today. Allergies Allergy/AdvReac Type Severity Reaction Status Date / Time egg AdvReac Intermediate GI upset Verified 07/28/23 12:29 ibuprofen AdvReac Intermediate stomach Verified 07/28/23 12:29 irritation morphine AdvReac Intermediate LEGS SWELL Verified 07/28/23 12:29 Home Medications Medication Instructions Recorded Confirmed Type atorvastatin 80 mg tablet 80 mg PO QPM 06/16/18 07/28/23 History cholecalciferol (vitamin D3) 25 1,000 unit PO QAM 06/16/18 07/28/23 History mcg (1,000 unit) tablet (Vitamin D3) cyanocobalamin (vitamin B-12) 1,000 mcg PO QAM 06/16/18 07/28/23 History 1,000 mcg tablet (Vitamin B-12) fish, borage, flaxseed oils-omega 1 cap PO QAM 06/16/18 07/28/23 History 3,6,9 comb no.1 1,200 mg capsule ([place] 3-6-9) folic acid 800 mcg tablet 0.8 mg PO QAM 06/16/18 07/28/23 History ascorbic acid (vitamin C) 250 mg 250 mg PO QAM 12/13/19 07/28/23 History tablet docusate sodium 100 mg capsule 100 mg PO BID 12/13/19 07/28/23 History (Colace) duloxetine 60 mg capsule,delayed 120 mg PO DAILY 03/16/20 07/28/23 History release (Cymbalta) lisinopril 10 mg tablet 10 mg PO HS 03/16/20 07/28/23 History metoprolol succinate 50 mg 25 mg PO BID 03/16/20 07/28/23 History tablet,extended release 24 hr buspirone 10 mg tablet 10 mg PO BID 06/23/21 07/28/23 History sumatriptan succinate 25 mg tablet 25 mg PO DIRECTED PRN Migraine 08/28/21 07/28/23 History Headache betamethasone dipropionate 0.05 % 1 applic topical BID PRN RASH 03/01/22 07/28/23 History topical ointment FACE/TRUNK/ARMS oxybutynin chloride 5 mg 5 mg PO QPM 03/01/22 07/28/23 History tablet,extended release 24 hr tacrolimus 0.1 % topical ointment 1 applic topical BID PRN AFFECTED 03/01/22 07/28/23 History AREAS ON FACE clotrimazole 1 % topical cream 1 applic topical DIRECTED PRN 05/23/22 07/28/23 History Itching diphenhydramine HCl 25 mg capsule 25 mg PO QAM 05/23/22 07/28/23 History (Benadryl) miconazole nitrate 2 % topical 1 applic EXT PRN PRN skin rash #85 06/06/22 07/28/23 Rx powder (Desenex) grams aspirin 81 mg tablet,delayed 81 mg PO DAILY 07/28/23 07/28/23 History release calcipotriene 0.005 % topical cream 1 applic topical DAILY PRN .flare 07/28/23 07/28/23 History ups doxepin 25 mg capsule 25 mg PO HS 07/28/23 07/28/23 History dupilumab 300 mg/2 mL subcutaneous 300 mg subcut UD 07/28/23 07/28/23 History pen injector (Dupixent) memantine 10 mg tablet 10 mg PO BID 07/28/23 07/28/23 History pregabalin 150 mg capsule 150 mg PO TID 07/28/23 07/28/23 History sodium chloride 0.65 % nasal spray 2 spray NA Q6H PRN Nasal Congestion 07/28/23 07/28/23 History aerosol (Saline Mist) tamsulosin 0.4 mg capsule 0.4 mg PO DAILY 07/28/23 07/28/23 History Patient History Medical History Nose septum perforation Chronic low back pain Sacroiliitis IBS (irritable bowel syndrome) Borderline diabetes mellitus A-fib "i think i have a-fib." -- on eliquis -- follows with Dr. Torres History of TIA (transient ischemic attack) 2016 Cardiac murmur History of skin cancer History of COVID-19 02/2020; generalized weakness, diarrhea, sob, fever, body aches; hospitalized x 1 week; c/o ongoing brain fog since having covid Verbalizes suicidal thoughts COVID-19 Nocturia Acute urinary retention Back pain Renal failure Morbid obesity BMI 50.5 Carotid artery stenosis "mild" Aortic stenosis Mild (per cardiology review) aortic stenosis with possible bicuspid aortic valve (MG 19mmhg, NIKKIE 3.0) per 05/2018 ECHO Anemia Osteoporosis GERD (gastroesophageal reflux disease) controlled Chronic back pain High cholesterol Hx of falling last fall 09/2018- per patient, related to LBP/balance issues- ? r/t ambulatory dysfunction- improved with cane/walker use Surgical History History of right cataract extraction S/P epidural steroid injection History of appendectomy History of cardiac cath 2017= NO STENTS History of right knee joint replacement History of back surgery Hx of laparoscopy History of kyphoplasty Family History Father Stroke Slow to wake up after anesthesia Myocardial infarction, Onset Age: 40 Mother Stroke Myocardial infarction, Onset Age: 60 Sister Myocardial infarction, Onset Age: 60 Social History Smoking Status: Former smoker Tobacco Type: Cigarettes Second Hand Exposure: Yes; Do You Dip or Chew Tobacco: No; Hx Alcohol Use: No Hx Substance Use: No Preferred Language: Swazi Communication Ability: Effective Visual Impairment: No Limitations Hearing Ability: Normal Payroll Administrative Assistant Required: No Beliefs That Will Affect Care: None marital status: Single Current Living Situation: Family Current Living Situation Comment: Lives with sister current occupational status: unemployed and disabled Feels Safe at Home: Yes Assistive Devices: Cane and Walker Review of Systems Review of Systems: As per HPI. Physical Exam Musculoskeletal: Exam focused on her right lower extremity: No visible deformity. No significant edema of her right leg. She has mild ecchymosis on the anterior lateral aspect of the right foot. She has full strength with dorsiflexion, plantarflexion, inversion and eversion of the right ankle. She is able to bend her right knee to 90 degrees. She is able to independently straight leg raise with no extensor lag. Tolerates logrolling of the hip. She is point tender with palpation of the right proximal fibula down to the fibular shaft. She has no tenderness over any bony prominences of the ankle. No ankle effusion. Calf is supple and lower extremity compartments are soft. Dorsalis pedis and posterior tibial pulses are 1+. She describes paresthesias in the dorsum of her right foot that extend to the lateral aspect of her leg and across her ankle. She is able to have some mild sensation to the medial side of the foot at the arch and the plantar surface. She has normal sensation at the medial and lateral thigh. Anterior knee incision is noted and healed from previous knee replacement. No knee effusion. Intact posterior drawer no knee effusion or tenderness there was trace varus valgus laxity at 0 and she has 1+ MCL laxity with an intact endpoint at 20 degrees of knee flexion and trace LCL laxity at the same position. She has an intact active straight leg raise Results & Data Vital Signs (Past 12 Hours) Vital Signs Temp Pulse Pulse Resp BP BP Pulse Ox 07/28/23 15:17 36.4 C L 64 18 140/90 94 07/28/23 14:31 07/28/23 14:05 36.6 C 67 16 131/75 98 07/28/23 13:55 66 07/28/23 13:53 07/28/23 13:01 70 18 146/75 H 07/28/23 12:04 67 18 125/93 94 07/28/23 11:22 63 07/28/23 11:16 68 18 156/75 H 98 07/28/23 10:00 63 18 95 07/28/23 10:00 63 18 156/75 H 95 07/28/23 10:00 36.6 C 63 18 156/75 H 95 O2 Del Method 07/28/23 15:17 Room Air 07/28/23 14:31 Room Air 07/28/23 14:05 Room Air 07/28/23 13:55 07/28/23 13:53 Room Air 07/28/23 13:01 07/28/23 12:04 Room Air 07/28/23 11:22 07/28/23 11:16 Room Air 07/28/23 10:00 Room Air 07/28/23 10:00 Room Air 07/28/23 10:00 Room Air Laboratory Results 07/28/23 Range/Units 09:59 WBC 5.28 (4.8-10.8) K/ul RBC 3.53 L (4.20-5.40) M/uL Hgb 8.7 L (12.0-16.0) g/dl Hct 29.9 L (37.0-47.0) % MCV 84.7 (80.0-100.0) fL MCH 24.6 L (25.0-34.0) pg MCHC 29.1 L (32.0-36.0) g/dL RDW Std Deviation 58.9 H (36.4-46.3) fL RDW Coeff of [place] 19.0 H (11.5-14.5) % Plt Count 132 (130-400) K/uL MPV 12.0 (9.4-12.4) fL Immature Gran % (Auto) 0.4 % Neut % (Auto) 48.5 % Lymph % (Auto) 31.8 % [place] % (Auto) 14.2 % Eos % (Auto) 4.0 % Baso % (Auto) 1.1 % Neut # (Auto) 2.56 (1.40-6.50) K/uL Lymph # (Auto) 1.68 (1.20-3.40) K/uL [place] # (Auto) 0.75 H (0.11-0.59) K/uL Eos # (Auto) 0.21 (0.00-0.50) K/uL Baso # (Auto) 0.06 (0.00-0.20) K/uL Immature Gran # (Auto) 0.02 (0.01-0.20) K/uL Sodium 139 (136-145) mmol/L Potassium 5.0 (3.5-5.1) mmol/L Chloride 110 H (98-107) mmol/L Carbon Dioxide 25 (21-32) mmol/L Anion Gap 4 (3-11) BUN 33 H (6-23) mg/dl Creatinine 1.72 H (0.6-1.2) mg/dl Est Cr Clr Drug Dosing 46.4 ml/min Est GFR ( Amer) 35.3 ml/min Est GFR (Non-Af Amer) 30.5 ml/min BUN/Creatinine Ratio 19.2 (10-20) Glucose 95 (70-99(Fasting)) mg/dl Calcium 8.8 (8.6-10.3) mg/dl Total Bilirubin 0.4 (0.2-1.0) mg/dl AST 15 (13-39) U/L ALT 7 (7-52) U/L Alkaline Phosphatase 62 (34-104) U/L Troponin I High Sens 8.9 (0-14) pg/ml Total Protein 6.7 (6.0-8.3) gm/dl Albumin 3.8 (3.4-5.0) gm/dl Globulin 2.9 (2.5-4.0) gm/dl Albumin/Globulin Ratio 1.3 (0.9-2) Diagnostic Findings RIGHT TIBIA AND FIBULA 2 VIEWS CLINICAL HISTORY: Right leg pain. FINDINGS: AP and crosstable lateral views of the right tibia and fibula are correlated with radiographs of the right knee dated 09/27/2014. The skeletal structures are osteopenic. There is an acute minimally offset fracture of the proximal fibular shaft with overlying soft tissue edema. The distal fibula appears intact. No tibial fracture is seen. A right knee arthroplasty is in near anatomic alignment. The ankle joint is grossly maintained. IMPRESSION: 1. Fracture of the proximal fibular shaft. 2. No tibial fracture is seen. XR knee RT 3V CLINICAL HISTORY: r knee pain COMPARISON STUDY: None. FINDINGS: Mildly displaced oblique fracture within the neck of the right fibula. No additional fractures within the right knee. No knee effusion. There is a right total knee arthroplasty. The hardware appears intact. Ossific densities superior to the patellar likely chronic. The bones are osteopenic. IMPRESSION: Mildly displaced oblique fracture within the neck of the right fibula. XR foot RT min 3V routine HISTORY: 68 years-old Female r lat mid foot pain acute right foot pain COMPARISON: Tibia and fibula radiographs of same day TECHNIQUE: 3 views of the right foot FINDINGS: Demineralized appearance of the bones. There is an acute to subacute appearing nondisplaced oblique fracture involving the distal metadiaphyseal fifth metatarsal without intra-articular involvement. Additionally, there is a partially corticated lucency involving the base of the fifth metatarsal. Large plantar calcaneal and the 05. Mild diffuse soft tissue swelling. 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 IMPRESSION: 1. Acute to subacute appearing nondisplaced fracture involves the distal fifth metatarsal. 2. Subacute to chronic nondisplaced fracture within the base of the fifth metatarsal which is partially united. (1) Closed fibular fracture Encounter type: initial encounter Fibula location: proximal Fracture morphology: unspecified fracture morphology Laterality: right Qualified Code(s): S82.831A - Other fracture of upper and lower end of right fibula, initial encounter for closed fracture
[2023-07-28] MEDS: OXYBUTYNIN CHLORIDE XL 5 MG TABCR PO SCH (20:10)
[2023-07-28] MEDS: busPIRone 5 MG TAB PO SCH (20:10)
[2023-07-28] MEDS: lisinopril 10 MG TAB PO SCH (20:10)
[2023-07-28] MEDS: DOCUSATE SODIUM 100 MG CAP PO SCH (20:11)
[2023-07-28] MEDS: ATORVASTATIN 40 MG TAB PO SCH (20:11)
[2023-07-28] MEDS: DOXEPIN HCL 25 MG CAPSULE PO SCH (20:11)
[2023-07-28] MEDS: MEMANTINE HCL 10 MG TAB PO SCH (20:11)
[2023-07-28] MEDS: METOPROLOL SUCC 25MG EXT REL TAB PO SCH (20:12)
[2023-07-28] MEDS: MICONAZOLE NITRATE POWDER 85 GM EXT PRN (20:12)
[2023-07-28] MEDS: HEPARIN SOD 5,000 UNIT/0.5 ML VIAL SQ SCH (20:13)
--- OUTSIDE RECORDS SUMMARY | 2023-07-29 03:59 | External Medical Summary | Summary of Care ---
Author Name Unknown Organization [facility] Address [address] [place] [address] Phone [phone] Care Team Providers Care Heel Brusher Name Role Phone Nikunj Plascencia MD Primary Care Provider [phone] Reason for Visit * Reason Onset Date Comments Appointment 07/26/2023 Encounter Details Date Type Department Care Team (Late st Contact Info) Description 07/26/2023 Telephone Orthopaedics [facility] [address] [facility] [place] [address] Ezio Jacobsen PA-C [address] [facility] [place] [address] Appointment Allergies Active Allergy Reactions Criticality Noted Date Comments Egg Shells Nausea/vomiting Medium 06/16/2018 Other reaction(s): GI SYMPTOMS Egg Yolk High 11/29/2019 Other reaction(s): GI upset Ibuprofen Other (Please comment) Medium 07/30/2010 Stomach upset Morphine Edema face/lips/tongue High 08/28/2021 Other reaction(s): LEGS SWELL documented as of this encounter (statuses as of 07/26/2023) Medications Medication Sig Dispensed Refills Start Date End Date Status OMEGA 3-6-9 FATTY ACIDS PO CAPS once daily Active B-12 1000 MCG PO TBCR Take by mouth 1 Tablet daily . Active VITAMIN D 1000 UNITS PO CAPS Take 1 Capsule by mouth in the morning. 60 Cap 0 10/18/2012 Active COLACE 100 MG PO CAPS 1 am & 1 at bedtime Active Folic Acid 800 MCG TabletIndications:Pr imary osteoarthritis of right knee Take 1 Tab by mouth daily. 30 Tab 4 05/03/2018 Active vitamin c (ASCORBIC ACID) 250 MG TabletIndications:Pr imary osteoarthritis of right knee Take 1 Tab by mouth daily. 30 Tab 3 05/03/2018 Active busPIRone HCl 10 MG Oral Tablet (Buspar) Take 1 Tablet by mouth in the morning and 1 Tablet before bedtime. 06/10/2020 Active Nitroglycerin 0.4 MG Sublingual Tablet Sublingual (Nitrostat) Place 1 Tablet under the tongue every 5 minutes as needed for Pain, Chest. Up to 3 in 15 minutes. 25 Tablet 11 03/01/2021 Active Calcipotriene 0.005 % External Cream (Dovonex) Apply 2x daily to rash on face/trunk/arms until resolved, then when flaring 100 g 2 09/27/2021 Active Betamethasone Dipropionate 0.05 % External OintmentIndications: Rash and nonspecific skin eruption Apply 2x daily to blisters and rash on face/trunk (back)/arms/legs until resolved, then when flaring 100 g 12/28/2021 Active diphenhydrAMINE HCl 25 MG Oral Tablet Take 1 Tablet by mouth in the morning. Active Clotrimazole 1 % External Cream (Lotrimin) Apply topically to affected area as needed for Itching. 30 g 5 05/09/2022 Active Saline Nasal [place] 0.65 % Nasal Solution (Charles) Q6H 06/06/2022 Active Clobetasol Propionate 0.05 % External Ointment (Temovate) Apply thin film to affected area at body twice daily as needed for up to 2 weeks at a time. Not for use at face, armpits, groin. 60 g 2 09/07/2022 Active Aspirin 81 MG Oral Tablet Chewable Take 1 Tablet by mouth in the morning. Do not start before October 07, 2022. 34 Tablet 11 10/07/2022 Active valACYclovir HCl 1 GM Oral Tablet (Valtrex) Take 1 Tablet by mouth in the morning and 1 Tablet at noon and 1 Tablet before bedtime. 21 Tablet 12/14/2022 Active Lisinopril 10 MG Oral Tablet (Prinivil) TAKE 1 TABLET BY MOUTH EVERY DAY 90 Tablet 3 01/27/2023 Active Additional Information Patient taking differently: 10 mg Oral HS, Informant: Patient, Reported on 04/03/2023 Metoprolol Succinate ER 50 MG Oral Tablet Extended Release 24 Hour (toPROL XL)Indications:Essen tial hypertension with goal blood pressure less than 140/90 TAKE 1/2 TABLET EVERY MORNING AND EVENING 90 Tablet 3 01/30/2023 Active Dupixent 300 MG/2ML Subcutaneous Solution Pen-injector (Dupilumab) Inject one pen under the skin every 2 weeks. 4 mL 4 01/31/2023 Active Acitretin 10 MG Oral Capsule Take 1 capsule daily with breakfast. 90 Capsule 1 02/15/2023 Active cycloSPORINE 0.05 % Ophthalmic Emulsion (Restasis) Instill 1 drop in each eye every 12 hours. 5.5 mL 5 02/15/2023 Active Doxepin HCl 25 MG Oral Capsule (SINEquan) Take 1 Capsule by mouth at bedtime. 03/29/2023 Active Tamsulosin HCl 0.4 MG Oral Capsule (Flomax) Take 1 Capsule by mouth in the morning. 90 Capsule 3 04/03/2023 Active Phenazopyridine HCl 200 MG Oral Tablet (Pyridium) Take 1 Tablet by mouth in the morning and 1 Tablet at noon and 1 Tablet before bedtime. After meals.. 9 Tablet 05/15/2023 Active DULoxetine HCl 60 MG Oral Capsule Delayed Release Particles (Cymbalta) Take 2 Capsules by mouth in the morning. 60 Capsule 5 05/23/2023 Active Tacrolimus 0.1 % External Ointment Apply thin film to affected areas at face twice daily as needed. 60 g 2 06/02/2023 Active SUMAtriptan Succinate 25 MG Oral Tablet (Imitrex) Take 2 tablets at onset of migraine and one tablet every 2 hours as needed, not more than 5 tablets in 24 hours 16 Tablet 10 06/05/2023 Active traZODone HCl 100 MG Oral Tablet (Desyrel) Active Ketoconazole 2 % External Cream Active Hydrocortisone 2.5 % External Cream Active Clopidogrel Bisulfate Powder Use as directed. Ac tive Citalopram Hydrobromide 10 MG Oral Tablet (CeleXA) Acti ve Betamethasone Acetate Powder Use as directed. Acti ve oxyBUTYnin Chloride ER 5 MG Oral Tablet Extended Release 24 Hour (Ditropan XL)Indications:Dysur ia Take 1 Tablet by mouth in the morning. 90 Tablet 3 06/28/2023 Active Atorvastatin Calcium 80 MG Oral Tablet (Lipitor) Take 1 Tablet by mouth in the morning. 90 Tablet 3 06/27/2023 Active Wegovy 0.25 MG/0.5ML Subcutaneous Solution Auto-injector (Semaglutide-Weight Management)Indicatio ns:Morbid obesity (HCC) Inject 0.25 mg under the skin once a week. 2 mL 06/27/2023 Active Pregabalin 150 MG Oral Capsule (Lyrica)Indications: Spinal stenosis of lumbar region without neurogenic claudication Take 1 Capsule by mouth in the morning and 1 Capsule at noon and 1 Capsule before bedtime. 90 Capsule 06/28/2023 Active Memantine HCl 10 MG Oral Tablet (Namenda)Indications :Spinal stenosis of lumbar region without neurogenic claudication Take 1 tablet by mouth twice daily 60 Tablet 5 07/13/2023 Active Hospital, Clinic, or Other Facility Administered Medication Ordered Dose Route Frequency Start Date End Date Status atropine sulfate inj 0.4 mgIndications:Chest pain, unspecified type 0.4 mg IV PUSH PRN 01/29/2021 Active documented as of this encounter (statuses as of 07/26/2023) Active Problems Problem Noted Date Diagnosed Date Renal stone 03/21/2023 Presence of Watchman left atrial appendage closu re device 12/19/2022 PAF (paroxysmal atrial fibrillation) 08/17/2022 Overview: Added automatically from request for surgery [id number] Nasal septal perforation 06/13/2022 Overview: Per ENT 06/13/22 - "too large for surgery --- follow up in 1 year ---- use nasal moisturizers" Migraine with aura and witho ut status migrainosus, not intractable 06/12/2022 Depression with anxiety 10/20/2021 Controlled substance agreement terminated 2021 Paroxysmal atrial flutter 06/21/2021 Chronic insomnia 12/22/2020 Dyslipidemia 12/20/2019 Bicuspid aortic valve 10/09/2019 Moderate aortic stenosis 10/09/2019 Senile osteoporosis 08/29/2017 Gastroesophageal reflux disease without esophagi tis 08/11/2017 Spinal stenosis of lumbar re gion without neurogenic claudication 01/04/2017 Morbid obesity 11/25/2015 Stage 3b chronic kidney disease (CKD) 08/31/2015 Overview: Per CKD protocol #1 HTN, goal below 130/80 07/29/2015 Irritable bowel syndrome wit h both constipation and diarrhea 04/11/2011 documented as of this encounter (statuses as of 07/26/2023) Resolved Problems Problem Noted Date Diagnosed Date Resolved Date Food insecurity 01/02/2023 06/27/2023 Overview: Per [facility] Protocol Hypertensive kidney disease with stage 3b chronic kidney disease 08/29/2022 09/04/2022 Fall 06/30/2022 08/29/2022 Closed fracture of one rib o f right side with routine healing 06/30/2022 09/04/2022 Concussion with no loss of c onsciousness, subsequent encounter 06/30/2022 09/04/2022 Medical home patient encounter 02/08/2022 05/20/2022 Body mass index (BMI) of 45. 0 to 49.9 in adult 05/31/2021 06/21/2021 Overview: Per Obesity protocol - Per Obesity protocol - Per Obesity protocol - - SVT (supraventricular tachycardia) 12/02/2020 10/20/2021 Body mass index (BMI) of 50. 0 to 59.9 in adult 08/04/2020 06/03/2021 Overview: Per Obesity protocol - Per Obesity protocol - - MILAN (generalized anxiety disorder) 06/20/2020 10/20/2021 Nonrheumatic aortic valve stenosis 04/02/2020 06/20/2020 History of COVID-19 03/27/2020 12/23/19 Overview: Feb 2020 Stage 3a chronic kidney disease 12/30/2019 03/08/2022 Overview: Per CKD protocol Moderate episode of recurren t major depressive disorder 10/08/2019 10/20/2021 Voiding difficulty 10/08/2019 02/05/202 1 Overview: Saw Dr. Ventura. No treatable patholgoy Body mass index (BMI) of 45. 0 to 49.9 in adult 04/29/2019 08/06/2020 Overview: Per Obesity protocol - - Type 2 diabetes mellitus wit h diabetic chronic kidney disease 07/27/2018 07/27/2018 Other pulmonary embolism wit hout acute cor pulmonale 07/27/2018 03/19/2019 Status post total right knee replacement 06/06/2018 10/08/2019 Altered mental status 06/06/20182018 Acute on chronic diastolic c ongestive heart failure 01/26/2018 10/08/2019 Recurrent major depressive d isorder, in remission 01/26/2018 10/08/2019 Disorder of adrenal gland 01/26/2018 Sacroiliitis 01/26/2018 12/20/2019 Body mass index (BMI) of 40. 0 to 44.9 in adult 11/27/2017 05/02/2019 Overview: Per Obesity protocol #1 - MEDICATION USE AGREEMENT 01/04/2017 Body mass index (BMI) of 45. 0 to 49.9 in adult 11/21/2016 12/04/2017 Overview: Per Obesity protocol #1 Abnormal stress test 11/07/2016 019 Hypertensive heart disease, benign w/chronic kidney disease stage 1-4 09/16/2016 12/20/2019 S/P kyphoplasty 08/17/2016 06/20/2020 Compression fracture of body of thoracic vertebra 08/17/2016 10/08/2019 Bullous pemphigoid 08/17/2016 0 Adjustment disorder with depressed mood 05/30/2016 10/08/2019 Lumbar spinal stenosis 11/10/201501/04 Tibial plateau fracture 01/22/201507/21 Osteoporosis 01/21/2014 01/18/2017 Left flank pain 05/04/2013 07/30/2018 HTN, goal below 140/90 12/12/201111/09 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 07/30/2018 Overview: [place] palsy Tinea 06/27/2011 07/30/2018 Mixed urge and stress incontinence 12/15/2008 10/08/2019 ADVANCE DIRECTIVE INFORMATION 06/17/2004 10/08/2019 documented as of this encounter (statuses as of 07/26/2023) Immunizations Name Administration Dates Next Due COVID-19 mRNA, LNP-s, No Pre serve, 2-Dose Series (Pfizer) 10/05/2020,09/14/2020 Covid-19, Mrna, Lnp-s, Pf, B ivalent, 30 Mcg, IM, 12 yrs and above (Pfizer) 05/26/2022 Pneumococcal Conjugate Vacc, 13 Valent (Prevnar) 05/30/2016 Pneumococcal Conjugate Vacci ne, 20-valent ([id number]) 04/03/2023 Seasonal Influenza Virus Vac cine, Unspecified Formulation 12/05/2019,02/27/2019,01/26/2018,11/09,11/10/2015,12/05/2014,10/17/2013 ,02/22/2013,11/09/2011,12/02/2010 Seasonal Influenza, PF, 6 M & above, IM , (FluLaval or Fluzone) 10/21/2021,11/26/2020,12/05/2019,02/27,01/26/2018,11/09/2016 Seasonal Influenza, Quadriva lent Hd (Fluzone Hd) 12/07/2022 Seasonal Influenza, Quadriva lent, No Preserve, IM 11/10/2015,12/05/2014 12/06/2015 Seasonal Influenza, Split, I IV3, With Preserve, Inj 10/17/2013,02/22/2013,11/09/2011,12/02 TDAP (age 10 and older)(Boostrix) 01/05/2022, Zoster Vaccine Recombinant (Shingrix) 06/27/2023 documented as of this encounter Social History Tobacco Use Types Packs/Day Years Used Date Smoking Tobacco: Former Cigarettes 0.5 30 0 07/30/1978 - 07/30/2008 Smokeless Tobacco: Never Comments:mar 2007 Alcohol Use Standard Drinks/Week Comments No 0 (1 standard drink = 0.6 oz pur e alcohol) PHQ-2 Answer Date Recorded PHQ Adult Total Score 0 12/09/2021 Hunger Vital Sign Answer Date Recorded Within the past 12 months, y ou worried that your food would run out before you got the money to buy more. Often true Within the past 12 months, t he food you bought just didn't last and you didn't have money to get more. Patient declined Sex and Gender Information Value Date Recorded Sex Assigned at Female 08/13/2018 10:55 AM EDT Gender Identity Female 08/13/2018 10:55 AM EDT Sexual Orientation Straight 08/13/2018 10 :55 AM EDT Job Start Date Occupation Industry Not on file Not on file Not on file documented as of this encounter Functional Status Functional Status Response Date of Assess ment Are you deaf or do you have serious difficulty h earing? No 06/04/2018 Are you blind or do you have serious difficulty seeing, even when wearing glasses? No 06/04/2018 Do you have serious difficul ty walking or climbing stairs? (5 years old or older) Yes 06/04/2018 Do you have difficulty dress ing or bathing? (5 years old or older) No 06/04/2018 Because of a physical, menta l, or emotional condition, do you have difficulty doing errands alone such as visiting a doctor s office or shopping? (15 years old or older) No 06/05/19 19 Cognitive Status Response Date of Assessm ent Because of a physical, menta l, or emotional condition, do you have serious difficulty concentrating, remembering, or making decisions? (5 years old or older) No 06/04/2018 documented as of this encounter Miscellaneous Notes * Telephone Encounter - Dixie Escalante OSA - 07/26/2023 10:59 AM EDT Called pt to set up New Appt w/ Ezio for Right knee as she has only been established with him for the left. She has concerns about Arthritis. Left her a voicemail stating we got her in for his soonest opening and if this does not work she can call to re-sched. documented in this encounter Plan of Treatment Upcoming Encounters Date Type Department Care Team (Latest Contact Info) Description 08/01/2023 1:30 PM EDT Office Visit Urology, [place] [address] [place] [address] Maria Elena Das PA-C [address] [place] [address] 08/04/2023 9:30 AM EDT Office Visit Orthopaedics [facility] [address] [facility] [place] [address] Ezio Jacobsen PA-C [address] [facility] [place] [address] 08/04/2023 10:00 AM EDT Hospital Encounter CRS Waiting [facility], Cardiac Recovery Suite Waiting Unit, H [address] [place] [address] Marycruz Miller MD [address] [place] [address] 08/04/2023 10:00 AM EDT - 08/04/2023 11:00 AM EDT Surgery CRS Waiting [facility], Cardiac Recovery Suite Waiting Unit, [address] [place] [address] Marycruz Miller MD [address] [place] [address] CORONARY ANGIOGRAPHY W/LEFT HEART CATH 08/04/2023 10:00 AM EDT Office Visit Cardiology [facility], [place] [address] [place] [address] [facility] [address] [place] [address] 08/11/2023 11:00 AM EDT Appointment Radiology, [place] [address] [place] [id number] 08/11/2023 12:00 PM EDT Office Visit Cardiothoracic Surg [facility], [place] [address] [place] [address] Alpesh Atwood MD [address] [place] [address] 08/23/2023 2:00 PM EDT Office Visit Podiatry [facility] [address] [place] [address] Eveline Layne, Geetha [address] [place] [address] [place] [address] 09/27/2023 8:30 AM EDT Appointment Radiology, [place] [address] [place] [address] 10/09/2023 1:10 PM EDT Nutrition Services Nutrition & Weight Management, [facility] [address] [place] [address] Mercedez Kim RDN [address] [place] [address] 10/12/2023 2:00 PM EDT Office Visit Pharmacy, [facility] [address] [place] [address] [email or web address] [address] [place] [address] 12/01/2023 1:45 PM EDT Office Visit Dermatology [facility] [address] [place] [address] Cyril Borges MD [address] [place] [address] 12/04/2023 1:00 PM EDT Cardiac Studies Cardiac Studies, [facility] [address] [facility] [place] [address] 12/20/2023 2:30 PM EDT Imaging Radiology, [address] [place] [address] 12/20/2023 3:20 PM EDT Office Visit Rheumatology [facility] [address] [facility] [place] [address] John Yoder MD [address] [place] [address] 01/04/2024 11:30 AM EST Appointment Radiology, [place] [address] [place] [address] 01/04/2024 1:30 PM EST Office Visit Urology, [place] [address] [place] [address] Luis Manuel Sandy MD [facility] [place] [address] 01/09/2024 1:20 PM EST Office Visit Family Practice [facility] [address] [facility] [place] [address] Nikunj Plascencia MD [address] [facility] [place] [address] 03/20/2024 2:00 PM EST Office Visit Nephrology, [facility] [address] [facility] [place] [address] Geovanni Linder MD [address] [facility] [place] [address] Scheduled Procedures Name Priority Associated Diagnoses Date/Ti vt CORONARY ANGIOGRAPHY W/LEFT HEART CATH Aortic stenosis 08/04/2023 10:00 AM EDT ROBOTIC ARTHROPLASTY KNEE TOTAL Knee osteoarthritis COLONOSCOPY FLEXIBLE PROXIMAL DIAGNOSTIC Recall History of colonic polyps Health Maintenance Due Date Last Done Comments Cologuard 2002 Sigmoidoscopy 2002 HOME BP CUFF VALIDATION YEARLY 04/02/2020 04/02/2019 Fecal Occult Blood Test 03/10/2022 03/10/19, 03/10/2021, 03/10/2021, Additional history exists COVID-19 Vaccine ( season) 2022 05/26/2022, 10/05/2020, 09/14/2020 Mammogram 11/30/2022 11/30/2021, 05/22, 06/10/2021, Additional history exists Albumin/Creatinine Ratio 06/14/2023 06/13/2022, 02/20 Zoster Vaccines (2 of 2) 08/22/2023 06/27/2023 DXA Scan 12/01/2023 11/30/2021, 08/21, 08/29/2017, Additional history exists GFR 12/17/2023 06/17/2023, 030 09/2023, 03/31/2023, Additional history exists Colonoscopy 03/24/2026 03/24/2021, 08/22, 09/19/2018, Additional history exists Colorectal Cancer Screening 03/24/2026 Diabetes Screening 06/16/2026 06/17/2023, 0 05/01/2023, 04/28/2023, Additional history exists Lipid Panel 04/27/2028 04/28/2023, 10/2023, 01/11/2021, Additional history exists DTaP,Tdap,and Td Vaccines (3 - Td or Tdap) 01/06/2032 01/05/2022, 11/18/2011 Pap Smear Discontinued 08/05/2019, 07/21, 03/01/2010 RETIRED - COLONOSCOPY-EVERY 5 YRS AGES 18-100 Discontinued 03/24/2021, 09/19/2018, 09/19/2018, Additional history exists Influenza Vaccine (FLU shot) Completed 12/07/2022, 10/21/2021, 11/26/2020, Additional history exists Pneumococcal Vaccine: 65+ Years Completed 04/03/2023, 05/30/2016 VITAMIN D LEVEL ONCE IN A LIFETIME-USE SMARTSET# [id number] Completed 06/17/2023, 06/10/2022, 05/28/2021, Additional history exists GARDASIL-HPV IMMUNIZATION SERIES Aged Out No longer eligible based on patient's age to complete this topic Hepatitis B Aged Out No longer eligi ble based on patient's age to complete this topic MENINGOCOCCAL (MENACTRA/MENVEO) Aged Out No longer eligible based on patient's age to complete this topic documented as of this encounter Medical Devices Implanted Type Area Storage And Backup Administrator Device Identifier Shelf Expiration Date Model / Serial / Lot Kyphon Hv-R Bone Cement Implanted:Qty: 1 on 08/17/2016 by Michael Smith MD at OR [facility] N/A: Spine Thoracic 03/19/2019 C01A / [id number] / [id number] Cement Bone Lv G 1119-140-01 - [id number] Implanted:Qty: 1 on 06/04/2018 by Duc Kimble MD at OR [facility] Right: Knee [employer] 11/19/20201119-1 40-01 / / [id number] Cement Bone Lv G 1119-140-01 - [id number] Implanted:Qty: 1 on 06/04/2018 by Duc Kimble MD at OR [facility] Right: Knee [employer] 06/19/20201119-1 40-01 / / [id number] Persona The Personlized Knee System Vivacit-E Highly Crosslinked Polyethylene All-Poly Patella Cemented Implanted:Qty: 1 on 06/04/2018 by Duc Kimble MD at OR [facility] Right: Knee [employer] 06/19/2022 42-5402-0 00-35 / / [id number] Tibia Stem 5 Deg Rt Size F - [id number] Implanted:Qty: 1 on 06/04/2018 by Duc Kimble MD at OR [facility] Right: Knee [employer] 10/21/2027 42-5320-0 75-02 / / [id number] Persona The Personalized Knee System Femur Cemented Cr Standard Implanted:Qty: 1 on 06/04/2018 by Duc Kimble MD at OR [facility] Right: Knee [employer] 11/20/2027 42-5026-0 62-02 / / [id number] Persona The Personalized Knee System Vivacit-E Highly Crosslinked Polyethylene Articular Surface Medial Congruent Implanted:Qty: 1 on 06/04/2018 by Duc Kimble MD at OR [facility] Right: Knee [employer] 11/19/2022 42-5221-0 07-12 / / [id number] Device Watchman Flx 24mm - [id number] Implanted:Qty: 1 on 10/06/2022 by Austin Penaloza MD at [facility]ARD[facility] [employer] : INTRV CARD [id number] 03/07/2025 [id number] / / [id number] Device Watchman Flx 27mm - [id number] Implanted:Qty: 1 on 10/06/2022 by Austin Penaloza MD at [facility] [employer] : INTRV CARD [id number] 08/07/2025 [id number] / / [id number] documented as of this encounter Advance Directives * Full Code (Latest Code Status on File) Date Activated Date Inactivated Comments 05/01/2023 11:51 AM 05/01/2023 7:34 PM This order reflects the patients wishes and were consensually agreed upon. Question Answer Comments Discussion of Advance Direct vikram occurred with: Not Discussed due to patient's condition * Full Code Date Activated Date Inactivated Comments 04/03/2023 12:57 PM 04/03/2023 9:07 PM Question Answer Comments Discussion of Advance Directives occurred with: Patient * Full Code Date Activated Date Inactivated Comments 10/06/2022 3:46 PM 10/07/2022 3:30 PM This order r eflects the patients wishes and were consensually agreed upon. Question Answer Comments Discussion of Advance Direct vikram occurred with: Not Discussed due to patient's condition * Full Code Date Activated Date Inactivated Comments 06/04/2018 11:16 AM 06/08/2018 3:44 PM This order reflects the patients wishes and were consensually agreed upon. * Full Code Date Activated Date Inactivated Comments 08/17/2016 12:34 PM 08/19/2016 5:28 PM This order reflects the patients wishes and were consensually agreed upon. Question Answer Comments Discussion of Advance Directives occurred with: Patient Does the patient have a Living Will? No Does the patient have Health Care Power of Attor marcel? No Care Teams Heel Brusher Relationship Specialty Start Date End Date Nikunj Plascencia MD [address] [place] [address] PCP - General Family Medicine 10/31/19 documented as of this encounter
--- OUTSIDE RECORDS SUMMARY | 2023-07-29 03:59 | External Medical Summary | Summary of Care ---
Author Name Unknown Organization [facility] Address [address] [place] [address] Phone [phone] Care Team Providers Care Plasma Processor Name Role Phone Nikunj Plascencia MD Primary Care Provider [phone] Reason for Visit * Reason Onset Date Comments Advice 07/13/2023 Encounter Details Date Type Department Care Team (Late st Contact Info) Description 07/13/2023 Telephone Urology, [place] [address] [place] [address] Services, Formerly [facility], [facility] [address] [place] [address] Advice Allergies Active Allergy Reactions Criticality Noted Date Comments Egg Shells Nausea/vomiting Medium 06/16/2018 Other reaction(s): GI SYMPTOMS Egg Yolk High 11/29/2019 Other reaction(s): GI upset Ibuprofen Other (Please comment) Medium 07/30/2010 Stomach upset Morphine Edema face/lips/tongue High 08/28/2021 Other reaction(s): LEGS SWELL documented as of this encounter (statuses as of 07/24/2023) Medications Medication Sig Dispensed Refills Start Date [...] 30 g 5 05/09/2022 Active Saline Nasal [place] 0.65 % Nasal Solution ([place]ott) Q6H 06/06/2022 Active Clobetasol Propionate 0.05 % [...] as of this encounter (statuses as of 07/24/2023) Active Problems Problem Noted Date Diagnosed Date Renal stone 03/21/2023 Presence of Watchman left atrial appendage closu re device 12/19/2022 PAF (paroxysmal atrial fibrillation) 08/17/2022 Overview: Added automatically from request for surgery [id number] Nasal septal perforation 06/13/2022 Overview: Per ENT [...] as of this encounter (statuses as of 07/24/2023) Resolved Problems Problem Noted Date Diagnosed Date [...] protocol - Per Obesity protocol - - MILNA (generalized anxiety disorder) 06/20/2020 10/20/2021 Nonrheumatic aortic valve stenosis 04/02/2020 06/20/2020 History of COVID-19 03/27/2020 12/23/19 21 Overview: Feb 2020 Stage 3a chronic kidney disease 12/30/2019 03/08/2022 Overview: Per CKD protocol Moderate episode of recurren t major depressive disorder 10/08/2019 10/20/2021 Voiding difficulty 10/08/2019 Overview: Saw Dr. Ventura. No treatable patholgoy [...] 140/90 12/12/201111/09 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 07/30/2018 Overview: [place] palsy Tinea 06/27/2011 07/30/2018 Mixed urge and stress incontinence 12/15/2008 10/08/2019 ADVANCE DIRECTIVE INFORMATION 06/17/2004 10/08/2019 documented as of this encounter (statuses as of 07/24/2023) Immunizations Name Administration Dates Next Due COVID-19 mRNA, LNP-s, No Pre serve, 2-Dose Series (Manpacks) 10/05/2020,09/14/2020 Covid-19, Mrna, Lnp-s, Pf, B ivalent, 30 Mcg, IM, 12 yrs and above (Manpacks) 05/26/2022 Pneumococcal Conjugate Vacc, 13 Valent (Prevnar) 05/30/2016 Pneumococcal Conjugate Vacci ne, 20-valent ([id number]) 04/03/2023 Seasonal Influenza Virus Vac cine, Unspecified [...] encounter Miscellaneous Notes * Telephone Encounter - Dhara Hairston OSA - 07/24/2023 11:59 AM EDT AP appt scheduled. Thank you LILY Simental 11:59 AM 07/24/2023 * Telephone Encounter - Bobbi Davis OSA - 07/13/2023 4:00 PM EDT Pt wants dr sandy to know ever since her kidney surgery she has been having a problem in the mornings when she gets up she just pees herself she wants advice [phone] documented in this encounter Plan of Treatment Upcoming Encounters Date Type Department Care Team (Latest Contact Info) Description 08/01/2023 1:30 PM EDT Office Visit Urology, [place] [address] [place] [address] Maria Elena Das PA-C [address], [place] [id number] 08/04/2023 10:00 AM EDT Hospital Encounter CRS Waiting [facility], Cardiac Recovery Suite Waiting Unit, [address] [place] [address] Marycruz Miller MD [facility] [address] [place], [place] [id number] 08/04/2023 10:00 AM EDT - 08/04/2023 11:00 AM EDT Surgery CRS Waiting [facility], Cardiac Recovery Suite Waiting Unit, [address] [place] [address] Marycruz Miller MD [facility] [place] [address] CORONARY ANGIOGRAPHY W/LEFT HEART CATH 08/04/2023 10:00 AM EDT Office Visit Cardiology [facility], [place] [address] [place] [address] [facility] Cardiac [facility] [address] [place] [address] 08/11/2023 11:00 AM EDT Appointment Radiology, [place] [address] [place] [id number] 08/11/2023 12:00 PM EDT Office Visit Cardiothoracic Surg [facility], [place] [address] [place] [address] Alpesh Atwood MD [address] [place] [address] 08/23/2023 2:00 PM EDT Office Visit Podiatry [facility] [address] [place] [address] Eveline Layne, [address] [place] [address] 09/27/2023 8:30 AM EDT Appointment Radiology, [address] [address] 10/09/2023 1:10 PM EDT Nutrition Services Nutrition & Weight Management, [facility] [address] [place] [address] Mercedez Kim RDN 132 [facility] [place] [address] 10/12/2023 2:00 PM EDT Office Visit Pharmacy, [facility] [address] [facility] [place] [address] [facility] 132 [place] [address] 12/01/2023 1:45 PM EDT Office Visit Dermatology [facility] [address] [place] [address] Cyril Borges MD [address] [place] [address] 12/04/2023 1:00 PM EDT Cardiac Studies Cardiac Studies, [facility] [address] [facility] [place] [address] 12/20/2023 2:30 PM EDT Imaging Radiology, [address] [place] [address] 12/20/2023 3:20 PM EDT Office Visit Rheumatology [address] [place] [address] John Yoder MD [address] [place] [address] [place] [address] 01/04/2024 11:30 AM EST Appointment Radiology, [place] [address] [place] [address] 01/04/2024 1:30 PM EST Office Visit Urology, [place] [address] [place] [address] Luis Manuel Sandy MD [address] [place] [address] 01/09/2024 1:20 PM EST Office Visit Family Practice [facility] [address] [place] [address] Nikunj Plascencia MD [address] [facility] [place] [facility] [place] [address] 03/20/2024 2:00 PM EST Office Visit Nephrology, [facility] [address] [facility] [place] [address] Geovanni Linder MD [address] [facility] [place] [address] Scheduled Procedures Name Priority Associated Diagnoses Date/Ti me CORONARY ANGIOGRAPHY W/LEFT HEART CATH Aortic stenosis [...] 08/29/2017, Additional history exists GFR 12/17/2023 06/17/2023, 09/2023, 03/31/2023, Additional history exists Colonoscopy 03/24/2026 [...] D LEVEL ONCE IN A LIFETIME-USE SMARTSET# 97707 Completed 06/17/2023, 06/10/2022, 05/28/2021, Additional history exists [...] this encounter Medical Devices Implanted Type Area Power Wheelchair Mechanic Device Identifier Shelf Expiration Date Model / Serial / Lot Kyphon Hv-R Bone Cement Implanted:Qty: 1 on 08/17/2016 by Michael Smith MD at OR [facility] N/A: Spine Thoracic 03/19/2019 C01A / C01A / [id number] Cement Bone Lv G 1119-140-01 - [id number] Implanted:Qty: 1 on 06/04/2018 by Duc Kimble MD at OR [facility] Right: Knee [employer] 11/19/20201119-1 40-01 / / [id number] Cement Bone Lv G 1119-140-01 - [id number] Implanted:Qty: 1 on 06/04/2018 by Duc Kimble MD at OR [facility] Right: Knee [employer] 06/19/20209-1 40-01 / / [id number] Persona The Personlized Knee System Vivacit-E Highly Crosslinked Polyethylene All-Poly Patella Cemented Implanted:Qty: 1 on 06/04/2018 by Duc Kimble MD at OR [facility] Right: Knee [employer] 06/19/2022 42-5402-0 00-35 / / [id number] Tibia Stem 5 Deg Rt Size F - [id number] Implanted:Qty: 1 on 06/04/2018 by Duc Kimble MD at OR [facility] Right: Knee [employer] 10/21/2027 42-5320-0 75-02 / / [id number] Persona The Personalized Knee System Femur Cemented Cr Standard Implanted:Qty: 1 on 06/04/2018 by Duc Kimble MD at OR [facility] Right: Knee [employer] 11/20/2027 42-5026-0 62-02 / / [id number] Persona The Personalized Knee System Vivacit-E Highly Crosslinked Polyethylene Articular Surface Medial Congruent Implanted:Qty: 1 on 06/04/2018 by Duc Kimble MD at OR [facility] Right: Knee [employer] 11/19/2022 42-5221-0 07-12 / / [id number] Device Watchman Flx 24mm - [id number] Implanted:Qty: 1 on 10/06/2022 by Austin Penaloza MD at [facility] Astro : INTRV CARD [id number] 03/07/2025 [id number] 40 / / [id number] Device Watchman Flx 27mm - [id number] Implanted:Qty: 1 on 10/06/2022 by Austin Penaloza MD at [facility] SCIENTIFIC : INTRV CARD [id number] 08/07/2025 [id number] 70 / / [id number] documented as of this encounter Advance Directives [...] Question Answer Comments Discussion of Advance Direct virkam occurred with: Not Discussed due to patient's [...] Power of Attor marcel? No Care Teams Plasma Processor Relationship Specialty Start Date End Date Nikunj Plascencia MD [address] [place] [address] PCP - General Family Medicine 10/31/19 documented as of this encounter
--- OUTSIDE RECORDS SUMMARY | 2023-07-29 04:00 | External Medical Summary | Summary of Care ---
Author Name Unknown Organization [facility] Address [address] [place] [address] Phone [phone] Care Team Providers Care Relations Mgr Name Role Phone Nikunj Plascencia MD Primary Care Provider [phone] Reason for Visit * Reason Onset Date Comments Advice 07/18/2023 Encounter Details Date Type Department Care Team (Late st Contact Info) Description [facility] [address] [place] [address] Dianna Grady, assembler clip on sunglasses Allergies Active Allergy Reactions Criticality Noted Date Comments Egg Shells Nausea/vomiting Medium 06/16/2018 Other reaction(s): GI SYMPTOMS Egg Yolk High 11/29/2019 Other reaction(s): GI upset Ibuprofen Other (Please comment) Medium 07/30/2010 Stomach upset Morphine Edema face/lips/tongue High 08/28/2021 Other reaction(s): LEGS SWELL documented as of this encounter (statuses as of 07/18/2023) Medications Medication Sig Dispensed Refills Start Date [...] 30 g 5 05/09/2022 Active Saline Nasal [place] 0.65 % Nasal Solution ([place]) Q6H 06/06/2022 Active Clobetasol Propionate 0.05 % [...] as of this encounter (statuses as of 07/18/2023) Active Problems Problem Noted Date Diagnosed Date Renal stone 03/21/2023 Presence of Watchman left atrial appendage closu re device 12/19/2022 PAF (paroxysmal atrial fibrillation) 08/17/2022 Overview: Added automatically from request for surgery [id number] Nasal septal perforation 06/13/2022 Overview: Per ENT [...] as of this encounter (statuses as of 07/18/2023) Resolved Problems Problem Noted Date Diagnosed Date [...] 140/90 12/12/201111/09 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 07/30/2018 Overview: [place] palsy Tinea 06/27/2011 07/30/2018 Mixed urge and stress incontinence 12/15/2008 10/08/2019 ADVANCE DIRECTIVE INFORMATION 06/17/2004 10/08/2019 documented as of this encounter (statuses as of 07/18/2023) Immunizations Name Administration Dates Next Due COVID-19 mRNA, LNP-s, No Pre serve, 2-Dose Series (Wejo) 10/05/2020,09/14/2020 Covid-19, Mrna, Lnp-s, Pf, B ivalent, 30 Mcg, IM, 12 yrs and above (Wejo) 05/26/2022 Pneumococcal Conjugate Vacc, 13 Valent (Prevnar) 05/30/2016 Pneumococcal Conjugate Vacci ne, 20-valent ([id number]) 04/03/2023 Seasonal Influenza Virus Vac cine, Unspecified [...] encounter Miscellaneous Notes * Telephone Encounter - Dianna Grady RN - 07/18/2023 2:27 PM EDT S/w patient. She is have frequency and urgency. It has been going on for a week. Order placed for urine culture documented in this encounter Plan of Treatment Upcoming Encounters Date Type Department Care Team (Latest Contact Info) Description 08/04/2023 10:00 AM EDT Hospital Encounter [facility], Card[facility] Suite Waiting Unit, [address] [facility] [place] [address] Marycruz Miller MD [address] [place] [address] 08/04/2023 10:00 AM EDT - 08/04/2023 11:00 AM EDT Surgery CRS Waiting [facility], Cardiac Recovery Suite Waiting Unit, [address] [place] [address] Marycruz Miller MD [address] [place] [address] CORONARY ANGIOGRAPHY W/LEFT HEART CATH 08/04/2023 10:00 AM EDT Office Visit Cardiology [facility] [place] [address] [place] [address] [facility] Cardiac Recovery [facility] [address] [place] [address] 08/11/2023 11:00 AM EDT Appointment Radiology, [place] [address] [place] [phone] 08/11/2023 12:00 PM EDT Office Visit Cardiothoracic Surg [facility], [place] [address] [place] [address] Alpesh Atwood MD [address] [place] [address] 08/23/2023 2:00 PM EDT Office Visit Podiatry [facility] [address] [place] [address] Eveline Layne, JAMAL [address] [place] [address] 09/27/2023 8:30 AM EDT Appointment Radiology, [address] [address] 10/09/2023 1:10 PM EDT Nutrition Services Nutrition & Weight Management, [facility] [address] [place] [address] Mercedez Kim RDN 132 [facility] [place] [address] 10/12/2023 2:00 PM EDT Office Visit Pharmacy, [facility] [address] [facility] [place] [address] [facility] [address] [facility] [place] [address] 12/01/2023 1:45 PM EDT Office Visit Dermatology [facility] [address] [place] [address] Cyril Borges MD [address] [place] [address] 12/04/2023 1:00 PM EDT Cardiac Studies Cardiac Studies, [facility] [address] [place] [address] 12/20/2023 2:30 PM EDT Imaging Radiology, [address] [address] 12/20/2023 3:20 PM EDT Office Visit Rheumatology [address] [address] John Yoder MD [address] [place] [address] 01/04/2024 11:30 AM EST Appointment Radiology, [place] [address] [place] [address] 01/04/2024 1:30 PM EST Office Visit Urology, [place] [address] [place] [address] Luis Manuel Sandy MD [address] [place] [address] 01/09/2024 1:20 PM EST Office Visit Family Practice [facility] [address] [facility] [place] [address] Nikunj Plascencia MD 132 [facility] [place] [address] 03/20/2024 2:00 PM EST Office Visit Nephrology, [place] [address] [place] [address] Geovanni Linder MD 200 [facility] [place] [address] Scheduled Procedures Name Priority Associated Diagnoses Date/Ti [...] Additional history exists Lipid Panel 04/27/2028 04/28/2023, 020 10/2023, 01/11/2021, Additional history exists DTaP,Tdap,and Td Vaccines (3 - Td or Tdap) 01/06/2032 01/05/2022, 11/18/2011 Pap Smear Discontinued 08/05/2019, 07/21, 03/01/2010 RETIRED - COLONOSCOPY-EVERY 5 YRS AGES 18-100 Discontinued 03/24/2021, 09/19/2018, 09/19/2018, Additional history exists Influenza Vaccine (FLU shot) Completed 12/07/2022, 10/21/2021, 11/26/2020, Additional history exists Pneumococcal Vaccine: 65+ Years Completed 04/03/2023, 05/30/2016 VITAMIN D LEVEL ONCE IN A LIFETIME-USE SMARTSET# [id number] Completed 06/17/2023, 06/10/2022, 05/28/2021, Additional history exists [...] this encounter Medical Devices Implanted Type Area Infant Caregiver Device Identifier Shelf Expiration Date Model / Serial / Lot Kyphon Hv-R Bone Cement Implanted:Qty: 1 on 08/17/2016 by Michael Smith MD at OR [facility] N/A: Spine Thoracic 03/19/2019 C01A / C01A / [id number] Cement Bone Lv G 1119-140-01 - [id number] Implanted:Qty: 1 on 06/04/2018 by Duc Kimble MD at OR [facility] Right: Knee [employer] 11/19/2020 00-1119-1 40- / / [id number] Cement Bone Lv G 1119-140-01 - [id number] Implanted:Qty: 1 on 06/04/2018 by Duc Kimble MD at OR [facility] Right: Knee [employer] 06/19/2020-1119-1 40- / / [id number] Persona The Personlized Knee System Vivacit-E Highly Crosslinked Polyethylene All-Poly Patella Cemented Implanted:Qty: 1 on 06/04/2018 by Duc Kimble MD at OR [facility] Right: Knee [employer] 06/19/2022 42-5402-0 00-35 / / [id number] Tibia Stem 5 Deg Rt Size F - [id number] Implanted:Qty: 1 on 06/04/2018 by Duc Kimble MD at OR [facility] Right: Knee [employer] 10/21/2027 42-5320-0 75-02 / / [id number] Persona The Personalized Knee System Femur Cemented Cr Standard Implanted:Qty: 1 on 06/04/2018 by Duc Kimble MD at OR [facility] Right: Knee [employer] 11/20/2027 42-5026-0 62-02 / / [id number] Persona The Personalized Knee System Vivacit-E Highly Crosslinked Polyethylene Articular Surface Medial Congruent Implanted:Qty: 1 on 06/04/2018 by Duc Kimble MD at OR [facility] Right: Knee [employer] 11/19/2022 42-5221-0 07-12 / / [id number] Device Watchman Flx 24mm - [id number] Implanted:Qty: 1 on 10/06/2022 by Austin Penaloza MD at [facility] [place] [employer] : INTRV CARD [id number] 03/07/2025 [id number] 40 / / [id number] Device Watchman Flx 27mm - [id number] Implanted:Qty: 1 on 10/06/2022 by Austin Penaloza MD at [facility] [place] [employer] : INTRV CARD [id number] 08/07/2025 [id number] 70 / / [id number] documented as of this encounter Advance Directives [...] Power of Attor marcel? No Care Teams Relations Mgr Relationship Specialty Start Date End Date Nikunj Plascencia MD [address] [place] [address] PCP - General Family Medicine 10/31/19 documented as of this encounter
--- OUTSIDE RECORDS SUMMARY | 2023-07-29 04:00 | External Medical Summary | Summary of Care ---
Author Name Unknown Organization [facility] Address [address] [place] [address] Phone [phone] Care Team Providers Care Head Transfer Clerk Name Role Phone Nikunj Plascencia MD Primary Care Provider [phone] Reason for Visit * Reason Onset Date Comments Advice 07/13/2023 Encounter Details Date Type Department Care Team (Late st Contact Info) Description 07/13/2023 Telephone Urology, [place] [address] [place] [address] Services, [facility] [address] [place] [address] Advice Allergies Active Allergy Reactions Criticality Noted Date Comments Egg Shells Nausea/vomiting Medium 06/16/2018 Other reaction(s): GI SYMPTOMS Egg Yolk High 11/29/2019 Other reaction(s): GI upset Ibuprofen Other (Please comment) Medium 07/30/2010 Stomach upset Morphine Edema face/lips/tongue High 08/28/2021 Other reaction(s): LEGS SWELL documented as of this encounter (statuses as of 07/13/2023) Medications Medication Sig Dispensed Refills Start Date [...] 30 g 5 05/09/2022 Active Saline Nasal [place] 0.65 % Nasal Solution ([place]) Q6H 06/06/2022 Active Clobetasol Propionate 0.05 % [...] as of this encounter (statuses as of 07/13/2023) Active Problems Problem Noted Date Diagnosed Date Renal stone 03/21/2023 Presence of Watchman left atrial appendage closu re device 12/19/2022 PAF (paroxysmal atrial fibrillation) 08/17/2022 Overview: Added automatically from request for surgery [id number] Nasal septal perforation 06/13/2022 Overview: Per ENT [...] as of this encounter (statuses as of 07/13/2023) Resolved Problems Problem Noted Date Diagnosed Date [...] 140/90 12/12/201111/09 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 07/30/2018 Overview: [place] palsy Tinea 06/27/2011 07/30/2018 Mixed urge and stress incontinence 12/15/2008 10/08/2019 ADVANCE DIRECTIVE INFORMATION 06/17/2004 10/08/2019 documented as of this encounter (statuses as of 07/13/2023) Immunizations Name Administration Dates Next Due COVID-19 mRNA, LNP-s, No Pre serve, 2-Dose Series (DSI MET-TECH) 10/05/2020,09/14/2020 Covid-19, Mrna, Lnp-s, Pf, B ivalent, 30 Mcg, IM, 12 yrs and above (DSI MET-TECH) 05/26/2022 Pneumococcal Conjugate Vacc, 13 Valent (Prevnar) 05/30/2016 Pneumococcal Conjugate Vacci ne, 20-valent (Hgubpex30) 04/03/2023 Seasonal Influenza Virus Vac cine, Unspecified [...] encounter Miscellaneous Notes * Telephone Encounter - Bobbi Davis OSA - 07/13/2023 4:00 PM EDT Pt wants dr sandy to know ever since her kidney surgery she has been having a problem in the mornings when she gets up she just pees herself she wants advice [phone] documented in this encounter Plan of Treatment Upcoming Encounters Date Type Department Care Team (Latest Contact Info) Description 08/04/2023 10:00 AM EDT Hospital Encounter CRS Waiting [facility], Cardiac Recovery Suite Waiting Unit, [address] [place] [address] Marycruz Miller MD [address] [place] [address] 08/04/2023 10:00 AM EDT - 08/04/2023 11:00 AM EDT Surgery CRS Waiting [facility], Cardiac Recovery Suite Waiting Unit, [address] [place] [address] Marycruz Miller MD [address] [place] [address] CORONARY ANGIOGRAPHY W/LEFT HEART CATH 08/04/2023 10:00 AM EDT Office Visit Cardiology [facility], [place] [address] [place] [address] [facility] Cardiac Recovery [place] [address] [place] [address] 08/11/2023 11:00 AM EDT Appointment Radiology, [address] [phone] 08/11/2023 12:00 PM EDT Office Visit Cardiothoracic Surg [facility], [address] [address] Alpesh Atwood MD [facility] [place] [address] 08/23/2023 2:00 PM EDT Office Visit Podiatry [address] [place] [address] Eveline Layne DPM [address] [place] [address] 09/27/2023 8:30 AM EDT Appointment Radiology, [address] [address] 10/09/2023 1:10 PM EDT Nutrition Services Nutrition & Weight Management, [address] [place] [address] Mercedez Kim RDN 132 [place] [address] 10/12/2023 2:00 PM EDT Office Visit Pharmacy, [facility] [address] [facility] [place] [address] [facility] [address] [place] [address] 12/01/2023 1:45 PM EDT Office Visit Dermatology [facility] [address] [place] [address] Cyril Borges MD [address] [place] [address] 12/04/2023 1:00 PM EDT Cardiac Studies Cardiac Studies, [facility] [address] [place] [address] 12/20/2023 2:30 PM EDT Imaging Radiology, [address] [address] 12/20/2023 3:20 PM EDT Office Visit Rheumatology [address] [address] John Yoder MD [address] [place] [address], [place] [address] 01/04/2024 11:30 AM EST Appointment Radiology, [place] [address] [place] [address] 01/04/2024 1:30 PM EST Office Visit Urology, [place] [address] [place] [address] Luis Manuel Sandy MD [address] [place] [address] 01/09/2024 1:20 PM EST Office Visit Family Practice [facility] [address] [facility] [place] [address] Nikunj Plascencia MD [address] [place] [address] 03/20/2024 2:00 PM EST Office Visit Nephrology, [facility] [address] [facility] [place] [address] Geovanni Linder MD [address] [facility] [place] [address] Scheduled Procedures Name Priority Associated Diagnoses Date/Ti [...] 08/29/2017, Additional history exists GFR 12/17/2023 06/17/2023, 03/0 09/2023, 03/31/2023, Additional history exists Colonoscopy 03/24/2026 [...] D LEVEL ONCE IN A LIFETIME-USE SMARTSET# [id number] Completed 06/17/2023, 06/10/2022, 05/28/2021, Additional history exists [...] this encounter Medical Devices Implanted Type Area Merchandise Handler Device Identifier Shelf Expiration Date Model / Serial / Lot Kyphon Hv-R Bone Cement Implanted:Qty: 1 on 08/17/2016 by Michael Smith MD at OR [facility] N/A: Spine Thoracic 03/19/2019 C01A / C01A / [id number] Cement Bone [place] G 1119-140-01 - [id number] Implanted:Qty: 1 on 06/04/2018 by Duc Kmible MD at OR [facility] Right: Knee [employer] 11/19/2020-1119-1 40- / / [id number] Cement Bone Lv G 1119-140-01 - [id number] Implanted:Qty: 1 on 06/04/2018 by Duc Kimble MD at OR [facility] Right: Knee [employer] 06/19/2020-1119-1 40- / / [id number] Persona The Personlized Knee System Vivacit-E Highly Crosslinked Polyethylene All-Poly Patella Cemented Implanted:Qty: 1 on 06/04/2018 by Duc Kimble MD at OR [facility] Right: Knee [employer] 06/19/2022 42-5402-0 00-35 / / [id number] Tibia Stem 5 Deg Rt Size F - [id number] Implanted:Qty: 1 on 06/04/2018 by Duc Kimble MD at OR [facility] Right: Knee [employer] 10/21/2027 42-5320-0 75-02 / / [id number] Persona The Personalized Knee System Femur Cemented Cr Standard Implanted:Qty: 1 on 06/04/2018 by Duc Kimble MD at OR [facility] Right: Knee [employer] 11/20/2027 42-5026-0 62-02 / / [id number] Persona The Personalized Knee System Vivacit-E Highly Crosslinked Polyethylene Articular Surface Medial Congruent Implanted:Qty: 1 on 06/04/2018 by Duc Kimble MD at OR [facility] Right: Knee [employer] 11/19/2022 42-5221-0 07-12 / / [id number] Device Watchman Flx 24mm - [id number] Implanted:Qty: 1 on 10/06/2022 by Austin Penaloza MD at CARDIAC LABS [facility] [employer] : INTRV CARD [id number] 03/07/2025 [id number] 40 / / [id number] Device Watchman Flx 27mm - [id number] Implanted:Qty: 1 on 10/06/2022 by Austin Penaloza MD at [facility]ARDIAC [facility]S [facility] [employer] : INTRV CARD [id number] 08/07/2025 [id number] 70 / / [id number] documented as of this encounter Advance Directives [...] Power of Attor marcel? No Care Teams Head Transfer Clerk Relationship Specialty Start Date End Date Nikunj Plascencia MD [address] [place] [address] PCP - General Family Medicine 10/31/19 documented as of this encounter
--- OUTSIDE RECORDS SUMMARY | 2023-07-29 04:00 | External Medical Summary | Summary of Care ---
Author Name Unknown Organization [facility] Address [address] [place] [address] Phone [phone] Care Team Providers Care Carding Supervisor Name Role Phone Nikunj Plascencia MD Primary Care Provider [phone] [phone] Reason for Referral * Precert (Within 10 days (routine)) - Pending Review Specialty Diagnoses / Procedures Referred By Contkareen nicole Referred To Contact Radiology Diagnoses Aortic valve stenosis Procedures CTA TAVR GATED STUDY CTA TAVR GATED STUDY Austin Penaloza MD [address] [place] [address] Referral ID Status Reason Start Date Expiration Date V isits Requested Visits Authorized [id number] Pending Review 07/24/[phone] Encounter Details Date Type Department Care Team (Late st Contact Info) Description 07/10/2023 Orders Only Cardiology [facility] [address] [place] [address] Donell Yadav, RN Aortic valve stenosis* Allergies Active Allergy Reactions Criticality Noted Date Comments Egg Shells Nausea/vomiting Medium 06/16/2018 Other reaction(s): GI SYMPTOMS Egg Yolk High 11/29/2019 Other reaction(s): GI upset Ibuprofen Other (Please comment) Medium 07/30/2010 Stomach upset Morphine Edema face/lips/tongue High 08/28/2021 Other reaction(s): LEGS SWELL documented as of this encounter (statuses as of 07/10/2023) Medications Medication Sig Dispensed Refills Start Date [...] 30 g 5 05/09/2022 Active Saline Nasal [place] 0.65 % Nasal Solution ([place]) Q6H 06/06/2022 Active Clobetasol Propionate 0.05 % [...] the morning. 90 Capsule 3 04/03/2023 Active Memantine HCl 5 MG Oral Tablet (Namenda) TAKE 1 TABLET DAILY FOR 1 WEEK AND THEN 1 TABLET TWICE DAILY 180 Tablet 3 05/08/2023 Active Phenazopyridine HCl 200 MG Oral Tablet [...] Capsule before bedtime. 90 Capsule 06/28/2023 Active Hospital, Clinic, or Other Facility Administered Medication Ordered Dose Route Frequency Start Date End Date Status atropine sulfate inj 0.4 mgIndications:Chest pain, unspecified type 0.4 mg IV PUSH PRN 01/29/2021 Active documented as of this encounter (statuses as of 07/10/2023) Active Problems Problem Noted Date Diagnosed Date Renal stone 03/21/2023 Presence of Watchman left atrial appendage closu re device 12/19/2022 PAF (paroxysmal atrial fibrillation) 08/17/2022 Overview: Added automatically from request for surgery [id number] Nasal septal perforation 06/13/2022 Overview: Per ENT [...] as of this encounter (statuses as of 07/10/2023) Resolved Problems Problem Noted Date Diagnosed Date [...] 140/90 12/12/201111/09 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 07/30/2018 Overview: [place] palsy Tinea 06/27/2011 07/30/2018 Mixed urge and stress incontinence 12/15/2008 10/08/2019 ADVANCE DIRECTIVE INFORMATION 06/17/2004 10/08/2019 documented as of this encounter (statuses as of 07/10/2023) Immunizations Name Administration Dates Next Due COVID-19 mRNA, LNP-s, No Pre serve, 2-Dose Series ([place]) 10/05/2020,09/14/2020 Covid-19, Mrna, Lnp-s, Pf, B ivalent, 30 Mcg, IM, 12 yrs and above ([place]) 05/26/2022 Pneumococcal Conjugate Vacc, 13 Valent (Prevnar) 05/30/2016 Pneumococcal Conjugate Vacci ne, 20-valent ([place]en[place]lo01) 04/03/2023 Seasonal Influenza Virus Vac cine, Unspecified [...] as of this encounter Miscellaneous Notes * Addendum Note - Donell Yadav, RN - 07/10/2023 10:54 AM EDTAddended by: DONELL YADAV on: 07/10/2023 10:54 AM Modules accepted: Orders documented in this encounter Plan of Treatment Upcoming Encounters Date Type Department Care Team (Latest Contact Info) Description 07/13/2023 2:30 PM EDT Office Visit Pharmacy, [facility] [address] [place] [address] [facility] [address] [place] [address] 08/04/2023 10:00 AM EDT Hospital Encounter CRS Waiting [facility], Cardiac Recovery Suite Waiting Unit, [address] [place] [address] Marycruz Miller MD [address] [place] [address] 08/04/2023 10:00 AM EDT - 08/04/2023 11:00 AM EDT Surgery CRS Waiting [facility], Cardiac Recovery Suite Waiting Unit, [address] [place] [address] Marycruz Miller MD [address] [place] [address] CORONARY ANGIOGRAPHY W/LEFT HEART CATH 08/04/2023 10:00 AM EDT Office Visit Cardiology [facility] [place] [address] [place] [address] [facility] Cardiac [facility] [address] [place] [address] 08/11/2023 11:00 AM EDT Appointment Radiology, [place] [address] [place] [id number] 08/11/2023 12:00 PM EDT Office Visit Cardiothoracic Surg [facility], [place] [address] [place] [address] Alpesh Atwood MD [address] [place] [address] 08/23/2023 2:00 PM EDT Office Visit Podiatry [facility] [address] [place] [address] Eveline Layne, JAMAL [address] [facility] [place] [address] 09/27/2023 8:30 AM EDT Appointment Radiology, [address] [address] 10/09/2023 1:10 PM EDT Nutrition Services Nutrition & Weight Management, [facility] [address] [place] [address] Mercedez Kim RDN 132 [place] [address] 12/01/2023 1:45 PM EDT Office Visit Dermatology [facility] [address] [place] [address] Cyril Borges MD [address] [place] [address] 12/04/2023 1:00 PM EDT Cardiac Studies Cardiac Studies, [facility] [address] [place] [address] 12/20/2023 2:30 PM EDT Imaging Radiology, [address] [place] [address] 12/20/2023 3:20 PM EDT Office Visit Rheumatology [address] [place] [address] John Yoder MD [address] [place] [address] [place] [address] 01/04/2024 11:30 AM EST Appointment Radiology, [address] [address] 01/04/2024 1:30 PM EST Office Visit Urology, [address] [place] [address] Luis Manuel Sandy MD [address] [place] [address] 01/09/2024 1:20 PM EST Office Visit Family Practice [facility] [address] [place] [address] Nikunj Plascencia MD [address] [place] [address] 03/20/2024 2:00 PM EST Office Visit Nephrology, [facility] [address] [facility] [place] [address] Geovanni Linder MD [address] [facility] [place] [address] Scheduled Orders Name Type Priority Associated Diagnoses Order Schedule CREATININE ISTAT, POINT OF CARE Point of Care Testing - Unsolicited Results Routine Aortic valve stenosis Ordered: 07/10/2023 CTA TAVR GATED STUDY Medical Imaging Routine Aortic valve stenosis Expected: 07/24/2023, Expires: 09/09/2023 Scheduled Procedures Name Priority Associated Diagnoses Date/Ti ga CORONARY ANGIOGRAPHY W/LEFT HEART CATH Aortic stenosis [...] D LEVEL ONCE IN A LIFETIME-USE SMARTSET# [id number] Completed 06/17/2023, 06/10/2022, 05/28/2021, Additional history exists [...] this encounter Medical Devices Implanted Type Area Experimental Mechanic Outboard Motors Device Identifier Shelf Expiration Date Model / Serial / Lot Kyphon Hv-R Bone Cement Implanted:Qty: 1 on 08/17/2016 by Michael Smith MD at OR [facility] N/A: Spine Thoracic 03/19/2019 C01A / C01A / [id number] Cement Bone Lv G 1119-140-01 - [id number] Implanted:Qty: 1 on 06/04/2018 by Duc Kimble MD at OR [facility] Right: Knee [employer] 11/19/20201119-1 40-01 / / [id number] Cement Bone G 1119-140-01 - [id number] Implanted:Qty: 1 on 06/04/2018 by Duc Kimble MD at OR [facility] Right: Knee [employer] 06/19/20201119-1 40-01 / / [id number] Persona The Personlized Knee System Vivacit-E Highly Crosslinked Polyethylene All-Poly Patella Cemented Implanted:Qty: 1 on 06/04/2018 by Duc Kimble MD at OR [facility] Right: Knee [employer] 06/19/2022 42-5402-0 00-35 / / [id number] Tibia Stem 5 Deg Rt Size F - [id number] Implanted:Qty: 1 on 06/04/2018 by Duc Kimble MD at OR [facility] Right: Knee [employer] 10/21/2027 42-5320-0 75-02 / / [id number] Persona The Personalized Knee System Femur Cemented Cr Standard Implanted:Qty: 1 on 06/04/2018 by Duc Kimble MD at OR [facility] Right: Knee [employer] 11/20/2027 42-5026-0 62-02 / / [id number] Persona The Personalized Knee System Vivacit-E Highly Crosslinked Polyethylene Articular Surface Medial Congruent Implanted:Qty: 1 on 06/04/2018 by Duc Kimble MD at OR [facility] Right: Knee [employer] 11/19/2022 42-5221-0 07-12 / / [id number] Device Watchman Flx 24mm - [id number] Implanted:Qty: 1 on 10/06/2022 by Austin Penaloza MD at [facility]ARD[facility] [employer] : INTRV CARD [id number] 03/07/2025 [id number] 40 / / [id number] Device Watchman Flx 27mm - [id number] Implanted:Qty: 1 on 10/06/2022 by Austin Penaloza MD at [facility] [employer] : INTRV CARD [id number] 08/07/2025 [id number] 70 / / [id number] documented as of this encounter Visit Diagnoses Diagnosis Aortic valve stenosis- Primary Aortic valve disorders Aortic stenosis Aortic valve disorders documented in this encounter Advance Directives * Full Code [...] Power of Attor marcel? No Care Teams Carding Supervisor Relationship Specialty Start Date End Date Nikunj Plascencia MD [address] [place] [address] PCP - General Family Medicine 10/31/19 documented as of this encounter
--- OUTSIDE RECORDS SUMMARY | 2023-07-29 04:00 | External Medical Summary | Summary of Care ---
Author Name Unknown Organization [facility] Address [address] [place] [address] Phone [phone] Care Team Providers Care Planer Mill Grader Name Role Phone Nikunj Plascencia MD Primary Care Provider [phone] [phone] Reason for Visit * Reason Comments Dosage Adjustment In Person (Anticoag Cl inic) Pain Encounter Details Date Type Department Care Team (Late st Contact Info) Description 07/13/2023 2:30 PM EDT Office Visit Pharmacy, [facility] [address] [place] [id number] [place] [address] Spinal stenosis of lumbar region without neurogenic claudication* Allergies Active Allergy Reactions Criticality Noted Date [...] at bedtime Active Folic Acid 800 MCG TabletIndications:P rimary osteoarthritis of right knee Take 1 Tab by mouth daily. 30 Tab 4 05/03/2018 Active vitamin c (ASCORBIC ACID) 250 MG TabletIndications:P rimary osteoarthritis of right knee Take 1 Tab [...] 09/27/2021 Active Betamethasone Dipropionate 0.05 % External OintmentIndications :Rash and nonspecific skin eruption Apply 2x daily to blisters and rash on face/trunk (back)/arms/legs until resolved, then when flaring 100 g 12/28/2021 Active diphenhydrAMINE HCl 25 MG Oral Tablet Take 1 Tablet by mouth in the morning. Active Clotrimazole 1 % External Cream (Lotrimin) Apply topically to affected area as needed for Itching. 30 g 5 05/09/2022 Active Saline Nasal [place] 0.65 % Nasal Solution ([place]) Q6H 06/06/2022 Active Clobetasol Propionate 0.05 % [...] Oral Tablet Extended Release 24 Hour (toPROL XL)Indications:Esse ntial hypertension with goal blood pressure less than [...] Citalopram Hydrobromide 10 MG Oral Tablet (CeleXA) Active Betamethasone Acetate Powder Use as directed. Acti ve oxyBUTYnin Chloride ER 5 MG Oral Tablet Extended Release 24 Hour (Ditropan XL)Indications:Dysu marcial Take 1 Tablet by mouth in the morning. 90 Tablet 3 06/28/2023 Active Atorvastatin Calcium 80 MG Oral Tablet (Lipitor) Take 1 Tablet by mouth in the morning. 90 Tablet 3 06/27/2023 Active Wegovy 0.25 MG/0.5ML Subcutaneous Solution Auto-injector (Semaglutide-Weight Management)Indicati ons:Morbid obesity (HCC) Inject 0.25 mg under the skin once a week. 2 mL 06/27/2023 Active Pregabalin 150 MG Oral Capsule (Lyrica)Indications :Spinal stenosis of lumbar region without neurogenic claudication Take 1 Capsule by mouth in the morning and 1 Capsule at noon and 1 Capsule before bedtime. 90 Capsule 06/28/2023 Active Memantine HCl 10 MG Oral Tablet (Namenda)Indication s:Spinal stenosis of lumbar region without neurogenic claudication Take 1 tablet by mouth twice daily 60 Tablet 5 07/13/2023 Active Memantine HCl 5 MG Oral Tablet (Namenda) TAKE 1 TABLET DAILY FOR 1 WEEK AND THEN 1 TABLET TWICE DAILY 180 Tablet 3 05/08/2023 Discontinu ed(Refill) Hospital, Clinic, or Other Facility Administered Medication [...] Overview: Added automatically from request for surgery [id number] Nasal septal perforation 06/13/2022 Overview: Per ENT [...] 140/90 12/12/201111/09 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 07/30/2018 Overview: [place] palsy Tinea 06/27/2011 07/30/2018 Mixed urge and stress incontinence 12/15/2008 10/08/2019 ADVANCE DIRECTIVE INFORMATION 06/17/2004 10/08/2019 documented as of this encounter (statuses as of 07/13/2023) Immunizations Name Administration Dates Next Due COVID-19 mRNA, LNP-s, No Pre serve, 2-Dose Series (afterBOT) 10/05/2020,09/14/2020 Covid-19, Mrna, Lnp-s, Pf, B ivalent, 30 Mcg, IM, 12 yrs and above (afterBOT) 05/26/2022 Pneumococcal Conjugate Vacc, 13 Valent (Prevnar) 05/30/2016 Pneumococcal Conjugate Vacci ne, 20-valent ([id number]) 04/03/2023 Seasonal Influenza Virus Vac cine, Unspecified [...] No 06/04/2018 documented as of this encounter Progress Notes * Maria Ines Desai RPh - 07/13/2023 3:15 PM EDT I agree with documented plan of care. Maria Ines Desai, Pharm D, BCACP Clinical Pharmacist 07/13/2023, 3:15 PM * Doris Herrmann, [facility] - 07/12/2023 10:41 PM EDT Images from the original note were not included. Medication Therapy Disease Management Clinic - Chronic Pain Management Progress Note 07/13/2023 Caroline Paulino, identified by name and date of , is a 67 year old female being seen for chronicpain management/education. Patient presents to pain MTM clinic for return visit. Patient presents to pain MTM clinic for return visit. Referring Physician: Nikunj Plascencia Medication Use Agreement: Terminated Patient's Pharmacy: [facility] COMPLAINT: back pain/spinal stenosis of lumbar region without neurogenic claudication HPI: Patient notes has has significant pain in right hip region past week Notes cannot get out of bed to go to the bathroom and now having accidents in bed last 3 weeks Notes used to see urology but has not in awhile Notes used to take care of puppy last week but can't this week because pain is so bad Notes has been taking Lyrica 3x daily and is in much pain; 3 days ago she took Lyrica 4x because she couldn't get off her bed Notes has rail along side of bed but this does not help Notes sister in May and has had bad depression; following with Dr. Grover (psych outside of [facility]) who may be adjusting her Doxepin; she will double check and let us know if he makes any updates Notes very sharp burning pain; worse in the morning Notes once she starts moving it gets better Notes she can't walk as much Pain described as: sharp and down her left leg, notes currently today from toes up to hip/lower back area, does states has some numbness and tingling and also some burning pain Sleep: hard to stay asleep and fall asleep, notes she did not complete recommended sleeping test due to her dog Palliating factors: laying down-notes is tired of being in bed all the time Exacerbating factors: walking or going up/down stairs Other interventions tried: Injections/Nerve Block Worst time of day for pain: early evening Imaging: no MRI on file from recent years Psychiatric Hx: anxiety Neurological Hx: None Cardiac Hx: SVT and afib Renal Hx: Stage 3 kidney disease Hepatic Hx: None Other: notes uses an inhalor Exercise/Activity: hard to walk and reduced ability to walk Tobacco Use: Former Alcohol Use: denies Illicit Substance/Rx Abuse: None per patient-notes "tries not to do this" CONTROLLED SUBSTANCE COMPLIANCE MONITORING: Daily MME: 0 mg PDMP Reviewed (07/12/23): No recent history, appropriate Functional Goal: walk the dog around the block again Current Pain Level (07/12/23): worse Pain Level (04/13/23): worse dealing with acute kidney stones Pain Level (12/08/22): improved Pain Level (09/08/22) improved since last visit (Lyrica dose increase) Pain Level (06/09/22): patient notes to having bad days Pain Level (03/10/22): tolerable Pain Level (12/02/21): uncontrolled Pain Level (10/19/21): Worse Pain Level (09/14/2021): 9/10-able to sit in wheelchair during appointment and engage in conversation Past Pain Medications: SA Opioids: hydrocodone, tramadol LA Opioids: Butrans patch - irritates skin, pt feels weird Muscle relaxants: Tizanidine, baclofen, soma, flexeril Antidepressants: amitriptyline, citalopram Other: diclofenac gel Current Pain Medications: Cymbalta 60 mg daily -per psychiatrist Lyrica 150 mg BID - Dr. Plascencia increased to TID on 06/27 JointFlex-helps knee but not back Acetaminophen PRN - up to 3g per day Namenda 5 mg BID Creatinine Clearance: Serum creatinine: 1.5 mg/dL (H) 06/17/23 1229 Estimated creatinine clearance: 50.4 mL/min (A) Creatinine Results: Recent Labs Units 06/17/23 1229 04/28/23 1106 03/31/23 0917 CREATININE - [facility] mg/dL 1.5* 1.5* 1.6* Hepatic Function (ALT): Recent Labs Units 06/17/23 1229 03/31/23 0917 10/06/22 1010 ALT - [facility] U/L 11 14 17 Comprehensive Metabolic Panel Results: Results for orders placed or performed in visit on 02/15/23 COMPREHENSIVE METABOLIC PANEL Result Value Ref Range BUN 49 (H) 6 - 20 mg/dL Creatinine 1.6 (H) 0.5 - 1.0 mg/dL Estimated Glomerular Filtration Rate 36 (L) >=60 mL/min Sodium 141 135 - 146 mmol/L Potassium 5.3 (H) 3.5 - 5.1 mmol/L Chloride 112 (H) 98 - 107 mmol/L CO2 21 (L) 22 - 32 mmol/L Anion Gap 8 7 - 15 mmol/L Glucose 91 70 - 120 mg/dL Albumin 3.8 3.8 - 5.0 g/dL AST 26 10 - 35 U/L Alkaline Phosphatase 62 35 - 130 U/L Bilirubin, Total 0.2 <=1.2 mg/dL Calcium 8.9 8.4 - 10.2 mg/dL Protein 6.1 6.0 - 8.3 g/dL ALT 14 10 - 35 U/L ASSESSMENT: Patient aware MTM is a clinical pharmacist visit, with focus on medication options for current diagnoses referred by Primary Care Provider for review and optimization. Focus of this visit is Medication Optimization. Current concerns: very sharp burning pain in right hip that radiates to lower back; Increased urinary incontinence Adherence: Reviewed current regimen, patient is adherent to regimen. Treatment options: decrease Lyrica to max dose per GFR 39; increase Namenda vs continue medications Treatment concerns: kidney fn; urinary incontinence Education provided: Educated pt on safety concern with current Lyrica dose; Discussed max dose of 300 mg/day. Pt agreeable to decrease dose. Educated pt to only take 150 mg BID of current supply thenwill pend refill on 07/30/22 for new dosing regimen. Explained to pt that she cannot be taking greater than prescribed dosing regimen of medication. Pt demonstrated understanding. Educated to reach out to urology (provided number to call) for advice regarding recent urinary incontinence. Currently scheduled Dec 2023. Also discussed benefit of weight loss with impact on pain. Pt to be starting Wegovy. PLAN: DECREASE Lyrica 100 mg TID Nayana current supply: decrease 150 mg BID until out INCREASE Namenda 10 mg BID Medication changes: no change Pain Medications: Cymbalta 60 mg daily -per psychiatrist DECREASE Lyrica 100 mg TID - max 300 mg/day JointFlex-helps knee but not back Acetaminophen PRN - up to 3g/day INCREASE Namenda 10 mg BID Patient verbalized understanding of the plan. Contact clinic with any issues. FOLLOW UP: Return to clinic in 12 weeks 10/12/2023 Doris Herrmann, PharmD PGY1 Screwdown Operator 07/12/2023 10:42 PM documented in this encounter Plan of Treatment Upcoming Encounters Date Type Department Care Team (Latest Contact Info) Description 08/04/2023 10:00 AM EDT Hospital Encounter CRS Waiting [facility], Cardiac Recovery Suite Waiting Unit, H [address] [place] [address] Marycruz Miller MD [facility] [place] [address] 08/04/2023 10:00 AM EDT - 08/04/2023 11:00 AM EDT Surgery CRS Waiting [facility], Cardiac Recovery Suite Waiting Unit, [address] [place] [address] Marycruz Miller MD [facility] [place] [address] CORONARY ANGIOGRAPHY W/LEFT HEART CATH 08/04/2023 10:00 AM EDT Office Visit Cardiology [facility], [address] [address] [address] [address] [place] [address] 08/11/2023 11:00 AM EDT Appointment Radiology, [address] [address] 08/11/2023 12:00 PM EDT Office Visit Cardiothoracic Surg [facility], [address] [address] Alpesh Atwood MD [facility] [place] [address] 08/23/2023 2:00 PM EDT Office Visit Podiatry [facility] [address] Eveline Layne, [facility] [address] [facility] [place] [address] 09/27/2023 8:30 AM EDT [facility] [address] [address] 10/09/2023 1:10 PM EDT Nutrition Services Nutrition & Weight Management, [facility] 132 [facility] [place] [address] Mercedez Kim RDN 132 [facility] [place] [address] 10/12/2023 2:00 PM EDT Office Visit Pharmacy, [address] [place] [address] [facility] [address] [address] 12/01/2023 1:45 PM EDT Office Visit Dermatology [address] [address] Cyril Borges MD [address] [place] [address] 12/04/2023 1:00 PM EDT Cardiac Studies Cardiac Studies, [facility] 132 [facility] [place] [address] 12/20/2023 2:30 PM EDT Imaging Radiology, [address] [place] [address] 12/20/2023 3:20 PM EDT Office Visit Rheumatology [address] [place] [address] John Yoder MD [address] [place] [address] [place] [address] 01/04/2024 11:30 AM EST Appointment Radiology, [place] [address] [place] [address] 01/04/2024 1:30 PM EST Office Visit Urology, [place] [address] [place] [address] Luis Manuel Sandy MD [address] [place] [address] 01/09/2024 1:20 PM EST Office Visit Family [facility] [address] [facility] [address] Nikunj Plascencia MD [address] [place] [address] 03/20/2024 2:00 PM EST Office Visit Nephrology, [facility] [address] [facility] [place] [address] Geovanni Linder MD [address] [facility] [place] [address] Scheduled Procedures Name Priority Associated Diagnoses Date/Ti [...] D LEVEL ONCE IN A LIFETIME-USE SMARTSET# 80658 Completed 06/17/2023, 06/10/2022, 05/28/2021, Additional history exists [...] this encounter Medical Devices Implanted Type Area Manager Voice Device Identifier Shelf Expiration Date Model / Serial / Lot Kyphon Hv-R Bone Cement Implanted:Qty: 1 on 08/17/2016 by Michael Smith MD at OR [facility] N/A: Spine Thoracic 03/19/2019 C01A / [id number] / [id number] Cement Bone Lv G 1119-140-01 - [id number] Implanted:Qty: 1 on 06/04/2018 by Duc Kimble MD at OR [facility] Right: Knee [employer] 11/19/2020-1119-1 40-01 / / [id number] Cement Bone Lv G 1119-140-01 - [id number] Implanted:Qty: 1 on 06/04/2018 by Duc Kimble MD at OR [facility] Right: Knee [employer] 06/19/2020-1119-1 40- / / [id number] Persona The Personlized Knee System Vivacit-E Highly Crosslinked Polyethylene All-Poly Patella Cemented Implanted:Qty: 1 on 06/04/2018 by Duc Kimble MD at OR [facility] Right: Knee [employer] 06/19/2022 42-5402-0 00-35 / / [id number] Tibia Stem 5 Deg Rt Size F - [id number] Implanted:Qty: 1 on 06/04/2018 by Duc Kimble MD at OR [facility] Right: Knee [employer] 10/21/2027 42-5320-0 75-02 / / [id number] Persona The Personalized Knee System Femur Cemented Cr Standard Implanted:Qty: 1 on 06/04/2018 by Duc Kimble MD at OR [facility] Right: Knee [employer] 11/20/2027 42-5026-0 62-02 / / [id number] Persona The Personalized Knee System Vivacit-E Highly Crosslinked Polyethylene Articular Surface Medial Congruent Implanted:Qty: 1 on 06/04/2018 by Duc Kimble MD at OR [facility] Right: Knee [employer] 11/19/2022 42-5221-0 07-12 / / [id number] Device Watchman Flx 24mm - [id number] Implanted:Qty: 1 on 10/06/2022 by Austin Penaloza MD at CARDIAC LABS [facility] [employer] : INTRV CARD [id number] 03/07/2025 [id number] 40 / / [id number] Device Watchman Flx 27mm - [id number] Implanted:Qty: 1 on 10/06/2022 by Austin Penaloza MD at CARDIAC LABS [facility] [employer] : INTRV CARD [id number] 08/07/2025 [id number] 70 / / [id number] documented as of this encounter Visit Diagnoses Diagnosis Spinal stenosis of lumbar region without neurogenic claudication- Primary Spinal stenosis, lumbar region, without neurogenic claudication Aortic stenosis Aortic valve disorders documented in [...] Power of Attor marcel? No Care Teams Planer Mill Grader Relationship Specialty Start Date End Date Nikunj Plascencia MD 132 [facility] [place] [address] PCP - General Family Medicine 10/31/19 documented as of this encounter
--- OUTSIDE RECORDS SUMMARY | 2023-07-29 04:00 | External Medical Summary | Summary of Care ---
Author Name Unknown Organization [facility] Address [address] [place] [address] Phone [phone] Care Team Providers Care Rehabilitation Program Manager Name Role Phone Nikunj Plascencia MD Primary Care Provider +1 [phone] Reason for Visit * Reason Comments Dosage Adjustment In Person (Anticoag Cl inic) Pain Encounter Details Date Type Department Care Team (Late st Contact Info) Description 07/13/2023 2:30 PM EDT Office Visit Pharmacy, [facility] 132 [place] [address] [place] [address] Spinal stenosis of lumbar region without neurogenic [...] 30 g 5 05/09/2022 Active Saline Nasal [place] 0.65 % Nasal Solution ([place]) Q6H 06/06/2022 Active Clobetasol Propionate 0.05 % [...] Overview: Added automatically from request for surgery [id number] Nasal septal perforation 06/13/2022 Overview: Per ENT [...] 140/90 12/12/201111/09 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 07/30/2018 Overview: [place] palsy Tinea 06/27/2011 07/30/2018 Mixed urge and stress incontinence 12/15/2008 10/08/2019 ADVANCE DIRECTIVE INFORMATION 06/17/2004 10/08/2019 documented as of this encounter (statuses as of 07/13/2023) Immunizations Name Administration Dates Next Due COVID-19 mRNA, LNP-s, No Pre serve, 2-Dose Series ([employer]) 10/05/2020,09/14/2020 Covid-19, Mrna, Lnp-s, Pf, B ivalent, 30 Mcg, IM, 12 yrs and above ([employer]) 05/26/2022 Pneumococcal Conjugate Vacc, 13 Valent (Prevnar) 05/30/2016 Pneumococcal Conjugate Vacci ne, 20-valent ([id number]) 04/03/2023 Seasonal Influenza Virus Vac cine, Unspecified [...] Pharmacist 07/13/2023, 3:15 PM * Doris Herrmann, [facility] - 07/12/2023 10:41 PM EDT Images from [...] following with Dr. Grover (psych outside of [facility]) who may be adjusting her Doxepin; she [...] 12 weeks 10/12/2023 Doris Herrmann, PharmD PGY1 Health And Safety Tech 07/12/2023 10:42 PM documented in this encounter Plan of Treatment Upcoming Encounters Date Type Department Care Team (Latest Contact Info) Description 08/04/2023 10:00 AM EDT Hospital Encounter CRS Waiting [facility], Cardiac Recovery Suite Waiting Unit, H [address] [place] [address] Marycruz Miller MD [facility] [place] [address] 08/04/2023 10:00 AM EDT - 08/04/2023 11:00 AM EDT Surgery CRS Waiting [facility], Cardiac Recovery Suite Waiting Unit, [address] [place] [address] Marycruz Miller MD [facility] [place] [address] CORONARY ANGIOGRAPHY W/LEFT HEART CATH 08/04/2023 10:00 AM EDT Office Visit Cardiology [facility], [address] [address] [place] [address] [address] [place] [address] 08/11/2023 11:00 AM EDT Appointment Radiology, [address] [address] 08/11/2023 12:00 PM EDT Office Visit Cardiothoracic Surg [facility], [address] [address] Alpesh Atwood MD [facility] [place] [address] 08/23/2023 2:00 PM EDT Office Visit Podiatry [facility] [address] Eveline Layne, [facility] [address] [facility] [place] [address] 09/27/2023 8:30 AM EDT Appointment [facility], [address] [address] 10/09/2023 1:10 PM EDT Nutrition Services Nutrition & Weight Management, [facility] 132 [facility] [place] [address] Mercedez Kim RDN 132 [facility] [place] [address] 10/12/2023 2:00 PM EDT Office Visit Pharmacy, [address] [place] [address] [facility] [address] [address] 12/01/2023 1:45 PM EDT Office Visit Dermatology [address] [address] Cyril Borges MD [address] [place] [address] 12/04/2023 1:00 PM EDT Cardiac Studies Cardiac Studies, [facility] 132 [facility] [place] [address] 12/20/2023 2:30 PM EDT Imaging Radiology, [address] [place] [address] 12/20/2023 3:20 PM EDT Office Visit Rheumatology [address] [place] [address] John Yoder MD [address] [place] [address] [place] [address] 01/04/2024 11:30 AM EST Appointment Radiology, [place] [address] [place] [address] 01/04/2024 1:30 PM EST Office Visit Urology, [place] [address] [place] [address] Luis Manuel Sandy MD [address] [place] [address] 01/09/2024 1:20 PM EST Office Visit Family [facility] [address] [facility] [address] Nikunj Plascencia MD [address] [place] [address] 03/20/2024 2:00 PM EST Office Visit Nephrology, [facility] [address] [facility] [place] [address] Geovanni Linder MD [address] [facility] [place] [address] Scheduled Procedures Name Priority Associated Diagnoses Date/Ti [...] D LEVEL ONCE IN A LIFETIME-USE SMARTSET# 75913 Completed 06/17/2023, 06/10/2022, 05/28/2021, Additional history exists [...] this encounter Medical Devices Implanted Type Area Plant Custodian Device Identifier Shelf Expiration Date Model / Serial / Lot Kyphon Hv-R Bone Cement Implanted:Qty: 1 on 08/17/2016 by Michael Smith MD at OR [facility] N/A: Spine Thoracic 03/19/2019 C01A / C01A / [id number] Cement Bone Lv G 1119-140-01 - [id number] Implanted:Qty: 1 on 06/04/2018 by Duc Kimble MD at OR [facility] Right: Knee [employer] 11/19/2020-1119-1 40-01 / / [id number] Cement Bone Lv G 1119-140-01 - [id number] Implanted:Qty: 1 on 06/04/2018 by Duc Kimble MD at OR [facility] Right: Knee [employer] 06/19/2020-1119-1 40- / / [id number] Persona The Personlized Knee System Vivacit-E Highly Crosslinked Polyethylene All-Poly Patella Cemented Implanted:Qty: 1 on 06/04/2018 by Duc Kimble MD at OR [facility] Right: Knee [employer] 06/19/2022 42-5402-0 00-35 / / [id number] Tibia Stem 5 Deg Rt Size F - [id number] Implanted:Qty: 1 on 06/04/2018 by Duc Kimble MD at OR [facility] Right: Knee [employer] 10/21/2027 42-5320-0 75-02 / / [id number] Persona The Personalized Knee System Femur Cemented Cr Standard Implanted:Qty: 1 on 06/04/2018 by Duc Kimble MD at OR [facility] Right: Knee [employer] 11/20/2027 42-5026-0 62-02 / / [id number] Persona The Personalized Knee System Vivacit-E Highly Crosslinked Polyethylene Articular Surface Medial Congruent Implanted:Qty: 1 on 06/04/2018 by Duc Kimble MD at OR [facility] Right: Knee [employer] 11/19/2022 42-5221-0 07-12 / / [id number] Device Watchman Flx 24mm - [id number] Implanted:Qty: 1 on 10/06/2022 by Austin Penaloza MD at [facility]ARDIAC LABS [facility] [employer] : INTRV CARD [id number] 03/07/2025 [id number] 40 / / [id number] Device Watchman Flx 27mm - [id number] Implanted:Qty: 1 on 10/06/2022 by Austin Penaloza MD at [facility] [employer] : INTRV CARD [id number] 08/07/2025 [id number] 70 / / [id number] documented as of this encounter Visit Diagnoses [...] Power of Attor marcel? No Care Teams Rehabilitation Program Manager Relationship Specialty Start Date End Date Nikunj Plascencia MD 132 [facility] [place] [address] PCP - General Family Medicine 10/31/19 documented as of this encounter
--- OUTSIDE RECORDS SUMMARY | 2023-07-29 04:01 | External Medical Summary | Summary of Care ---
Author Name Unknown Organization [facility] Address [address] [place] [address] Phone [phone] Care Team Providers Care Philatelic Consultant Name Role Phone Nikunj Plascencia MD Primary Care Provider [phone] Reason for Referral * Precert (Within 10 days (routine)) - Pending Review Specialty Diagnoses / Procedures Referred By Contkareen nicole Referred To Contact Radiology Diagnoses Aortic valve stenosis Procedures CTA TAVR GATED STUDY CTA TAVR GATED STUDY Austin Penaloza MD [address] [place] [address] Referral ID Status Reason Start Date Expiration Date V isits Requested Visits Authorized [id number] Pending Review 07/24/2023 [id number] Encounter Details Date Type Department Care Team (Late st Contact Info) Description 07/10/2023 Orders Only Cardiology [facility] [address] [place] [address] Donell Yadav, RN Aortic valve stenosis* Allergies [...] 30 g 5 05/09/2022 Active Saline Nasal [place] 0.65 % Nasal Solution (Loving) Q6H 06/06/2022 Active Clobetasol Propionate 0.05 % [...] Overview: Added automatically from request for surgery [id number] Nasal septal perforation 06/13/2022 Overview: Per ENT [...] 140/90 12/12/201111/09 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 07/30/2018 Overview: [place] palsy Tinea 06/27/2011 07/30/2018 Mixed urge and stress incontinence 12/15/2008 10/08/2019 ADVANCE DIRECTIVE INFORMATION 06/17/2004 10/08/2019 documented as of this encounter (statuses as of 07/10/2023) Immunizations Name Administration Dates Next Due COVID-19 mRNA, LNP-s, No Pre serve, 2-Dose Series (Netlogon) 10/05/2020,09/14/2020 Covid-19, Mrna, Lnp-s, Pf, B ivalent, 30 Mcg, IM, 12 yrs and above (Netlogon) 05/26/2022 Pneumococcal Conjugate Vacc, 13 Valent (Prevnar) 05/30/2016 Pneumococcal Conjugate Vacci ne, 20-valent ([id number]) 04/03/2023 Seasonal Influenza Virus Vac cine, Unspecified [...] Upcoming Encounters Date Type Department Care Team (Late st Contact Info) Description 07/13/2023 2:30 PM EDT Office Visit Pharmacy, [address] [place] [address] [address] [facility] [place] [address] [place] [address] 08/11/2023 12:00 PM EDT Office Visit [facility], [place] [address] [place] [address] Alpesh Atwood MD [address] [place] [address] 08/23/2023 2:00 PM EDT Office Visit Podiatry [facility] [address] [employer] [place] [address] Eveline Layne, JAMAL [address] [place] [address] 09/27/2023 8:30 AM EDT Appointment Radiology, [address] [address] 10/09/2023 1:10 PM EDT Nutrition Services Nutrition & Weight Management, [facility] [address] [place] [address] Mercedez Kim RDN [address] [facility] [place] [address] 12/01/2023 1:45 PM EDT Office Visit Dermatology [facility] [address] [place] [address] Cyril Borges MD [address] [place] [address] 12/04/2023 1:00 PM EDT Cardiac Studies Cardiac Studies, [facility] [address] [employer] [place] [address] 12/20/2023 2:30 PM EDT Imaging Radiology, [address] [place] [address] 12/20/2023 3:20 PM EDT Office Visit Rheumatology [address] [place] [address] John Yoder MD [address] [place] [address] [place] [address] 01/04/2024 11:30 AM EST Appointment Radiology, [address] [address] 01/04/2024 1:30 PM EST Office Visit Urology, [address] [address] Luis Manuel Sandy MD [facility] [place] [address] 01/09/2024 1:20 PM EST Office Visit Family Practice [facility] [address] [place] [address] Nikunj Plascencia MD [address] [facility] [place] [address] 03/20/2024 2:00 PM EST Office Visit Nephrology, [facility] [place] [address] Geovanni Linder MD [address] [facility] [place] [address] Scheduled Orders Name Type Priority Associated Diagnoses Order Schedule CREATININE ISTAT, POINT OF CARE Point of Care Testing - Unsolicited Results Routine Aortic valve stenosis Ordered: 07/10/2023 CTA TAVR GATED STUDY Medical Imaging Routine Aortic valve stenosis Expected: 07/24/2023, Expires: 09/09/2023 Scheduled Procedures Name Priority Associated Diagnoses Date/Ti me ROBOTIC ARTHROPLASTY KNEE TOTAL Knee osteoarthritis COLONOSCOPY FLEXIBLE PROXIMA L DIAGNOSTIC Recall History of colonic polyps Health [...] Additional history exists Lipid Panel 04/27/2028 04/28/2023, 02/0 10/2023, 01/11/2021, Additional history exists DTaP,Tdap,and Td Vaccines (3 - Td or Tdap) 01/06/2032 01/05/2022, 11/18/2011 Pap Smear Discontinued 08/05/2019, 07/21, 03/01/2010 RETIRED - COLONOSCOPY-EVERY 5 YRS AGES 18-100 Discontinued 03/24/2021, 09/19/2018, 09/19/2018, Additional history exists Influenza Vaccine (FLU shot) Completed 12/07/2022, 10/21/2021, 11/26/2020, Additional history exists Pneumococcal Vaccine: 65+ Years Completed 04/03/2023, 05/30/2016 VITAMIN D LEVEL ONCE IN A LIFETIME-USE SMARTSET# [id number] Completed 06/17/2023, 06/10/2022, 05/28/2021, Additional history exists [...] this encounter Medical Devices Implanted Type Area Optometric Tech Device Identifier Shelf Expiration Date Model / Serial / Lot Kyphon Hv-R Bone Cement Implanted:Qty: 1 on 08/17/2016 by Michael Smith MD at [facility] N/A: Spine Thoracic 03/19/2019 C01A / C01A / [id number] Cement Bone Lv G 1119-140-01 - [id number] Implanted:Qty: 1 on 06/04/2018 by Duc Kimble MD at OR [facility] Right: Knee [employer] 11/19/2020 00-1119-1 40-01 / / [id number] Cement Bone Lv G 1119-140-01 - [id number] Implanted:Qty: 1 on 06/04/2018 by Duc Kimble MD at OR [facility] Right: Knee [employer] 06/19/2020-1119-1 40-01 / / [id number] Persona The Personlized Knee System Vivacit-E Highly Crosslinked Polyethylene All-Poly Patella Cemented Implanted:Qty: 1 on 06/04/2018 by Duc Kimble MD at OR [facility] Right: Knee [employer] 06/19/2022 42-5402-0 00-35 / / [id number] Tibia Stem 5 Deg Rt Size F - [id number] Implanted:Qty: 1 on 06/04/2018 by Duc Kimble MD at OR [facility] Right: Knee [employer] 10/21/2027 42-5320-0 75-02 / / [id number] Persona The Personalized Knee System Femur Cemented Cr Standard Implanted:Qty: 1 on 06/04/2018 by Duc Kimble MD at OR [facility] Right: Knee [employer] 11/20/2027 42-5026-0 62- [id number] Persona The Personalized Knee System Vivacit-E Highly Crosslinked Polyethylene Articular Surface Medial Congruent Implanted:Qty: 1 on 06/04/2018 by Duc Kimble MD at OR [facility] Right: Knee [employer] 11/19/2022 42-5221-0 07- [id number] Device Watchman Flx 24mm - [id number] Implanted:Qty: 1 on 10/06/2022 by Austin Penaloza MD at [facility] [employer] : INTRV CARD [id number] 03/07/2025 [id number] 40 / / [id number] Device Watchman Flx 27mm - [id number] Implanted:Qty: 1 on 10/06/2022 by Austin Penaloza MD at [facility] [employer] : INTRV CARD [id number] 08/07/2025 [id number] 70 / / [id number] documented as of this encounter Visit Diagnoses Diagnosis Aortic valve stenosis- Primary Aortic valve disorders documented in this encounter [...] Power of Attor marcel? No Care Teams Philatelic Consultant Relationship Specialty Start Date End Date Nikunj Plascencia MD [address] [place] [address] PCP - General Family Medicine 10/31/19 documented as of this encounter
--- OUTSIDE RECORDS SUMMARY | 2023-07-29 04:01 | External Medical Summary | Summary of Care ---
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 Name Role Phone Nikunj Plascencia MD Primary Care Provider [phone] Reason for Visit * Reason Comments Return Visit Chronic Kidney Disease (CKD) Hypertension Encounter Details Date Type Department Care Team (Late st Contact Info) Description 07/03/2023 2:00 PM EDT Office Visit [facility] [address] [place] [id number] Geovanni Linder MD [address] [place] [address] Stage 3b chronic kidney disease (HCC)*; Stage 3b chronic kidney disease (CKD) (HCC); Kidney stone Allergies Active Allergy Reactions Criticality Noted Date Comments Egg Shells Nausea/vomiting Medium 06/16/2018 Other reaction(s): GI SYMPTOMS Egg Yolk High 11/29/2019 Other reaction(s): GI upset Ibuprofen Other (Please comment) Medium 07/30/2010 Stomach upset Morphine Edema face/lips/tongue High 08/28/2021 Other reaction(s): LEGS SWELL documented as of this encounter (statuses as of 07/04/2023) Medications Medication Sig Dispensed Refills Start Date End Date Status OMEGA 3-6-9 FATTY ACIDS PO CAPS once daily 0 Active B-12 1000 MCG PO TBCR Take by mouth 1 Tablet daily . 0 Active VITAMIN D 1000 UNITS PO CAPS Take 1 Capsule by mouth in the morning. 60 Cap 0 10/18/2012 Active COLACE 100 MG PO CAPS 1 am & 1 at bedtime 0 Active Folic Acid 800 MCG TabletIndications:Pr imary [...] the morning and 1 Tablet before bedtime. 0 06/10/2020 Active Nitroglycerin 0.4 MG Sublingual Tablet [...] until resolved, then when flaring 100 g 0 12/28/2021 Active diphenhydrAMINE HCl 25 MG Oral Tablet Take 1 Tablet by mouth in the morning. 0 Active Clotrimazole 1 % External Cream (Lotrimin) Apply topically to affected area as needed for Itching. 30 g 5 05/09/2022 Active Saline Nasal [place] 0.65 % Nasal Solution (Wise River) Q6H 0 06/06/2022 Active Clobetasol Propionate 0.05 % External [...] and 1 Tablet before bedtime. 21 Tablet 0 12/14/2022 Active Lisinopril 10 MG Oral Tablet [...] Take 1 Capsule by mouth at bedtime. 0 03/29/2023 Active Tamsulosin HCl 0.4 MG Oral [...] Tablet before bedtime. After meals.. 9 Tablet 0 05/15/2023 Active DULoxetine HCl 60 MG Oral [...] traZODone HCl 100 MG Oral Tablet (Desyrel) 0 Active Ketoconazole 2 % External Cream 0 Active Hydrocortisone 2.5 % External Cream 0 Active Clopidogrel Bisulfate Powder Use as directed. 0 Ac tive Citalopram Hydrobromide 10 MG Oral Tablet (CeleXA) 0 Acti ve Betamethasone Acetate Powder Use as directed. 0 Acti ve oxyBUTYnin Chloride ER 5 MG [...] the skin once a week. 2 mL 0 06/27/2023 Active Pregabalin 150 MG Oral Capsule (Lyrica)Indications: Spinal stenosis of lumbar region without neurogenic claudication Take 1 Capsule by mouth in the morning and 1 Capsule at noon and 1 Capsule before bedtime. 90 Capsule 0 06/28/2023 Active Hospital, Clinic, or Other Facility Administered Medication Ordered Dose Route Frequency Start Date End Date Status atropine sulfate inj 0.4 mgIndications:Chest pain, unspecified type 0.4 mg IV PUSH PRN 01/29/2021 Active documented as of this encounter (statuses as of 07/04/2023) Active Problems Problem Noted Date Diagnosed Date Renal stone 03/21/2023 Presence of Watchman left atrial appendage closu re device 12/19/2022 PAF (paroxysmal atrial fibrillation) 08/17/2022 Overview: Added automatically from request for surgery [id number] Nasal septal perforation 06/13/2022 Overview: Per ENT [...] as of this encounter (statuses as of 07/04/2023) Resolved Problems Problem Noted Date Diagnosed Date [...] depressive disorder 10/08/2019 10/20/2021 Voiding difficulty 10/08/2019 1 Overview: Saw Dr. Ventura. No treatable [...] 140/90 12/12/201111/09 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 07/30/2018 Overview: [place] palsy Tinea 06/27/2011 07/30/2018 Mixed urge and stress incontinence 12/15/2008 10/08/2019 ADVANCE DIRECTIVE INFORMATION 06/17/2004 10/08/2019 documented as of this encounter (statuses as of 07/04/2023) Immunizations Name Administration Dates Next Due COVID-19 mRNA, LNP-s, No Pre serve, 2-Dose Series ([employer]) 10/05/2020,09/14/2020 Covid-19, Mrna, Lnp-s, Pf, B ivalent, 30 Mcg, IM, 12 yrs and above ([employer]) 05/26/2022 Pneumococcal Conjugate Vacc, 13 Valent (Prevnar) 05/30/2016 Pneumococcal Conjugate Vacci ne, 20-valent ([id number]) 04/03/2023 Seasonal Influenza Virus Vac cine, Unspecified [...] on file documented as of this encounter Last Filed Vital Signs Vital Sign Reading Time Taken Comments Blood Pressure 91/58 07/03/2023 2:46 PM EDT Pulse 66 07/03/2023 2:46 PM EDT Temperature 36.7 C (98.1 F) 07/03/2023 2:46 PM ED T Respiratory Rate 20 07/03/2023 2:46 PM EDT Oxygen Saturation 99% 07/03/2023 2:46 PM EDT Inhaled Oxygen Concentration - - Weight 133.4 kg (294 lb) 07/03/2023 2:46 PM EDT Height - - Body Mass Index 48.92 06/27/2023 1:07 PM EDT documented in this encounter Functional Status Functional Status Response [...] as of this encounter Progress Notes * Geovanni Linder MD - 07/03/2023 3:37 PM EDT Chief Complaint Patient presents with Return Visit Chronic Kidney Disease (CKD) Hypertension SUBJECTIVE: HPI:Patient is a 68 year old female with istory of longstanding hypertension bicuspid aortic valve and moderate aortic stenosis. She has borderline diabetes without medication. No childhood kidney disease or family history of kidney disease. History of acute renal failure secondary to urinary retention November 2019. Urinary retention was secondary to high-dose opiates which she needed because of fall and rib fractures which she sustained 2 weeks prior to hospitalization. After cutting back on the opiates some IV fluid and holding lisinopril creatinine started to improve from peak creatinine of 3.8 down to baseline 1.2. She has chronic ambulatory issues and does use walker. Since last visit --- Had right ureteroscopy on 05/01/2023. Stone analysis revealed:Calcium Oxalate type. Then had Stent removed . Also had watchman procedure. Patient reports urinary issues have been better with use of medication-----reports getting up twice a night to urinate. Patient does report feeling her bladder empty. Labs done and appears similar to previous blood work with a creatinine of 1.5 giving GFR of 39. NSAID No (tylenol if needed) Renal Stone No Herbal Medication Fish oil, vit D, vit b12 HISTORY: Current Outpatient Medications Medication Sig Dispense Refill OMEGA 3-6-9 FATTY ACIDS PO CAPS once daily B-12 1000 MCG PO TBCR Take by mouth 1 Tablet daily . VITAMIN D 1000 UNITS PO CAPS Take 1 Capsule by mouth in the morning. 60 Cap 0 COLACE 100 MG PO CAPS 1 am & 1 at bedtime Folic Acid 800 MCG Tablet Take 1 Tab by mouth daily. 30 Tab 4 vitamin c (ASCORBIC ACID) 250 MG Tablet Take 1 Tab by mouth daily. 30 Tab 3 busPIRone HCl 10 MG Oral Tablet (Buspar) Take 1 Tablet by mouth in the morning and 1 Tablet before bedtime. Nitroglycerin 0.4 MG Sublingual Tablet Sublingual (Nitrostat) Place 1 Tablet under the tongue every5 minutes as needed for Pain, Chest. Up to 3 in 15 minutes. 25 Tablet 11 Calcipotriene 0.005 % External Cream (Dovonex) Apply 2x daily to rash on face/trunk/arms until resolved, then when flaring 100 g 2 Betamethasone Dipropionate 0.05 % External Ointment Apply 2x daily to blisters and rash on face/trunk (back)/arms/legs until resolved, then when flaring 100 g 0 diphenhydrAMINE HCl 25 MG Oral Tablet Take 1 Tablet by mouth in the morning. Clotrimazole 1 % External Cream (Lotrimin) Apply topically to affected area as needed for Itching. 30 g 5 Saline Nasal [place] 0.65 % Nasal Solution (Wise River) Q6H Clobetasol Propionate 0.05 % External Ointment (Temovate) Apply thin film to affected area at body twice daily as needed for up to 2 weeks at a time. Not for use at face, armpits, groin. 60 g 2 Aspirin 81 MG Oral Tablet Chewable Take 1 Tablet by mouth in the morning. Do not start before October 07, 2022. 34 Tablet 11 valACYclovir HCl 1 GM Oral Tablet (Valtrex) Take 1 Tablet by mouth in the morning and 1 Tablet at noon and 1 Tablet before bedtime. 21 Tablet 0 Lisinopril 10 MG Oral Tablet (Prinivil) TAKE 1 TABLET BY MOUTH EVERY DAY (Patient taking differently: Take 1 Tablet by mouth at bedtime.) 90 Tablet 3 Metoprolol Succinate ER 50 MG Oral Tablet Extended Release 24 Hour (toPROL XL) TAKE 1/2 TABLET EVERY MORNING AND EVENING 90 Tablet 3 Dupixent 300 MG/2ML Subcutaneous Solution Pen-injector (Dupilumab) Inject one pen under the skin every 2 weeks. 4 mL 4 Acitretin 10 MG Oral Capsule Take 1 capsule daily with breakfast. 90 Capsule 1 cycloSPORINE 0.05 % Ophthalmic Emulsion (Restasis) Instill 1 drop in each eye every 12 hours. 5.5 mL 5 Doxepin HCl 25 MG Oral Capsule (SINEquan) Take 1 Capsule by mouth at bedtime. Tamsulosin HCl 0.4 MG Oral Capsule (Flomax) Take 1 Capsule by mouth in the morning. 90 Capsule 3 Memantine HCl 5 MG Oral Tablet (Namenda) TAKE 1 TABLET DAILY FOR 1 WEEK AND THEN 1 TABLET TWICE DAILY 180 Tablet 3 Phenazopyridine HCl 200 MG Oral Tablet (Pyridium) Take 1 Tablet by mouth in the morning and 1 Tablet at noon and 1 Tablet before bedtime. After meals.. 9 Tablet 0 DULoxetine HCl 60 MG Oral Capsule Delayed Release Particles (Cymbalta) Take 2 Capsules by mouth in the morning. 60 Capsule 5 Tacrolimus 0.1 % External Ointment Apply thin film to affected areas at face twice daily as needed.60 g 2 SUMAtriptan Succinate 25 MG Oral Tablet (Imitrex) Take 2 tablets at onset of migraine and one tablet every 2 hours as needed, not more than 5 tablets in 24 hours 16 Tablet 10 traZODone HCl 100 MG Oral Tablet (Desyrel) Ketoconazole 2 % External Cream Hydrocortisone 2.5 % External Cream Citalopram Hydrobromide 10 MG Oral Tablet (CeleXA) oxyBUTYnin Chloride ER 5 MG Oral Tablet Extended Release 24 Hour (Ditropan XL) Take 1 Tablet by mouth in the morning. 90 Tablet 3 Atorvastatin Calcium 80 MG Oral Tablet (Lipitor) Take 1 Tablet by mouth in the morning. 90 Tablet 3 Wegovy 0.25 MG/0.5ML Subcutaneous Solution Auto-injector (Semaglutide-Weight Management) Inject 0.25 mg under the skin once a week. 2 mL 0 Pregabalin 150 MG Oral Capsule (Lyrica) Take 1 Capsule by mouth in the morning and 1 Capsule at noon and 1 Capsule before bedtime. 90 Capsule 0 Clopidogrel Bisulfate Powder Use as directed. (Patient not taking: Reported on 07/03/2023) Betamethasone Acetate Powder Use as directed. (Patient not taking: Reported on 07/03/2023) Zoster Vac Recomb Adjuvanted 50 MCG/0.5ML Intramuscular Suspension Reconstituted (Shingrix) Inject 0.5 mL into a large muscle now and repeat dose in 60 to 180 days 1 Each 1 Current Facility-Administered Medications Medication Dose Route Frequency Provider Last Rate Last Admin atropine sulfate inj 0.4 mg 0.4 mg IV Push PRN Trip Nolasco, Review of patient's allergies indicates: Allergen Reactions Egg Yolk Other reaction(s): GI upset Morphine Edema face/lips/tongue Other reaction(s): LEGS SWELL Egg Shells Nausea/vomiting Other reaction(s): GI SYMPTOMS Ibuprofen Other (Please comment) Stomach upset Past Medical History: Diagnosis Date --- DIABETES --- prediabetes Acute on chronic diastolic CHF (congestive heart failure) ([facility]) 01/26/2018 Allergic rhinitis Collazo's palsy left eye palsy Benign neoplasm of colon 11/20/2010 hyperplastic polyps- repeat colonoscopy in 10 years Bicuspid aortic valve 10/09/2019 Bullous pemphigoid 08/17/2016 txt with cellcept Chronic insomnia 12/22/2020 CKD (chronic kidney disease) stage 3, GFR 30-59 ml/min ([facility]) Compression fracture of body of thoracic vertebra ([facility]) 08/17/2016 Controlled substance agreement terminated 10/20/2021 Current tear of medial cartilage or meniscus of knee left knee Depression with anxiety 10/20/2021 Depressive disorder, not elsewhere classified Disorder of adrenal gland ([facility]) 01/26/2018 Dyslipidemia 12/20/2019 Fall 06/30/2022 Female stress incontinence MILAN (generalized anxiety disorder) 06/20/2020 GERD (gastroesophageal reflux disease) 08/11/2017 History of 2019 novel coronavirus disease (COVID-19) 03/27/2020 History of COVID-19 03/27/2020 HTN, goal below 130/80 IBS (irritable bowel syndrome) IBS (irritable bowel syndrome) 04/11/2011 Irritable bowel syndrome with both constipation and diarrhea 04/11/2011 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 Migraine with aura and without status migrainosus, not intractable 06/12/2022 Moderate aortic stenosis 10/09/2019 Moderate episode of recurrent major depressive disorder ([facility]) 10/08/2019 Other pulmonary embolism without acute cor pulmonale ([facility]) 07/27/2018 Overflow incontinence Paroxysmal atrial flutter ([facility]) 06/21/2021 Presence of Watchman left atrial appendage closure device 12/19/2022 Recurrent major depressive disorder in remission (HCC) 01/26/2018 S/P kyphoplasty 08/17/2016 Sacroiliitis (HCC) 01/26/2018 Senile osteoporosis 08/29/2017 Spinal stenosis of lumbar region without neurogenic claudication 01/04/2017 Status post total right knee replacement 06/06/2018 Tibial plateau fracture 01/22/2015 Past Surgical History: Procedure Laterality Date ARTHROPLASTY KNEE TOTAL Right 06/04/2018 ARTHROPLASTY KNEE TOTAL performed by Duc Kimble Jr., MD at OR [facility] ASP/INJECT GANGLION CYST bilaterally, right x2 COLONOSCOPY THRU STOMA, W/BIOPSY 11/20/2010 hyperplastic polyps- repeat colonoscopy in 10 years COLONOSCOPY, DIAGNOSTIC (RECTUM) 10/16/2017 poor prep, procedure aborted/[facility] COLONOSCOPY, DIAGNOSTIC (RECTUM) 09/19/2018 diverticulosis/COLONOSCOPY FLEXIBLE PROXIMAL DIAGNOSTIC performed by Kristen Nogueira MD at ENDOSCOPY [facility] COLONOSCOPY, DIAGNOSTIC (RECTUM) 03/24/2021 adenomatous polyp, diverticulosis, repeat 5 yrs / [facility] CORONARY ANGIOGRAPHY W/LEFT HEART CATH Right 11/07/2016 CORONARY ANGIOGRAPHY W/LEFT HEART CATH performed by Fernando Germain DO at [facility] CYSTO/URETERO W/LITHOTRIPSY Right 04/03/2023 CYSTOURETHROSCOPY URETEROSCOPY WITH LITHOTRIPSY AND STENT INSERTION performed by Luis Manuel Sandy MD at [facility] CYSTO/URETERO W/LITHOTRIPSY Right 05/01/2023 CYSTOURETHROSCOPY URETEROSCOPY WITH LITHOTRIPSY AND STENT INSERTION performed by Luis Manuel Sandy MD at [facility] EGD, FLEXIBLE, DIAGNOSTIC 10/13/2017 normal/[facility] EGD, FLEXIBLE, DIAGNOSTIC 03/24/2021 Barretts, gastritis / [facility] HYSTEROSCOPY;ENDOMETRIAL ABLAT 1998 hysteroscopy, rollerball ablation INFORMATION bengin lump removed from neck, 2 cyst removed from hand INJECT DX/THER SUBSTANCE INTERLAMINAR LUMBAR/SACRAL W IMAGE GUIDE 01/28/2019 INJECTION SPINE LUMBAR OR SACRAL performed by Yannick Daniel DO at OR [facility] INJECT DX/THER SUBSTANCE INTERLAMINAR LUMBAR/SACRAL W IMAGE GUIDE 04/08/2019 INJECTION SPINE LUMBAR OR SACRAL performed by Yannick Daniel DO at OR [facility] INJECT DX/THER SUBSTANCE INTERLAMINAR LUMBAR/SACRAL W IMAGE GUIDE 09/23/2019 INJECTION SPINE LUMBAR OR SACRAL performed by Yannick Daniel, DO at OR [facility] INJECT DX/THER SUBSTANCE INTERLAMINAR LUMBAR/SACRAL W IMAGE GUIDE 01/02/2020 INJECTION SPINE LUMBAR OR SACRAL performed by Yannick Daniel, DO at OR [facility] INJECT DX/THER SUBSTANCE INTERLAMINAR LUMBAR/SACRAL W IMAGE GUIDE 06/08/2020 INJECTION SPINE LUMBAR OR SACRAL performed by Yannick Daniel, DO at OR [facility] INJECT DX/THER SUBSTANCE INTERLAMINAR LUMBAR/SACRAL W IMAGE GUIDE 09/17/2020 INJECTION SPINE LUMBAR OR SACRAL performed by Yannick Daniel, DO at OR [facility] INJECT DX/THER SUBSTANCE INTERLAMINAR LUMBAR/SACRAL W IMAGE GUIDE 12/24/2020 INJECTION SPINE LUMBAR OR SACRAL performed by Yannick Daniel, DO at OR [facility] INJECT DX/THER SUBSTANCE INTERLAMINAR LUMBAR/SACRAL W IMAGE GUIDE 05/06/2021 INJECTION SPINE LUMBAR OR SACRAL performed by Yannick Daniel, DO at OR [facility] IR KYPHOPLASTY 08/17/2016 IR VERTEBRAL AUGMENTATION THORACIC N/A 08/17/2016 PERCUTANEOUS VERTEBRAL AUGMENTATION THORACIC KYPHOPLASTY performed by Michael Smith MD at [place] [facility] MAMMOGRAM SCREENING-BILATERAL 2004 [facility] PERC CLOSURE TRANSCATH LEFT ATRIAL APPENDAGE W/ENDOCARDIAL IMPLANT Right 10/06/2022 PERCUTANEOUS CLOSURE LEFT ATRIAL APPENDAGE IMPLANT performed by Austin Penaloza MD at CARD[facility]AC [facility] REMOVAL OF APPENDIX 11/2018 SACROILIAC JOINT INJECT W/GUIDANCE 03/19/2018 INJECTION SACROILIAC JOINT performed by Yannick Daniel, DO at OR [facility] SACROILIAC JOINT INJECT W/GUIDANCE 04/30/2018 INJECTION SACROILIAC JOINT performed by Yannick Daniel, DO at OR [facility] SACROILIAC JOINT INJECT W/GUIDANCE 07/30/2018 INJECTION SACROILIAC JOINT performed by Yannick Daniel, DO at OR [facility] SACROILIAC JOINT INJECT W/GUIDANCE Right 07/29/2019 INJECTION SACROILIAC JOINT performed by Yannick Daniel, DO at OR [facility] SACROILIAC JOINT INJECT W/GUIDANCE 04/13/2020 INJECTION SACROILIAC JOINT performed by Yannick Daniel, DO at OR [facility] THIGH OR KNEE SURGERY NEC 2007 Knee/Leg Other Procedures Unlisted Family History Problem Relation Age of Onset Stroke Mother dementia. complications COVID as well. Arthritis Mother Cancer Mother uterine Heart Disorder Mother bypass pig valve aorta Heart Disorder Father , age 62 Diabetes Father Stroke Father Hypertension Father Colon cancer Father Thyroid Disorder Sister No Past Hx Sister Other (Other) Sister hypersensitive to touch Heart Disorder Brother congenital Family history of renal disease:yes - father Social History Socioeconomic History Marital status: Single Spouse name: Not on file Number of children: 0 Years of education: Not on file Highest education level: Not on file Occupational History Occupation: [email or web address] Employer: [employer] Comment: [employer] Tobacco Use Smoking status: Former Current packs/day: 0.00 Average packs/day: 0.5 packs/day for 30.0 years (15.0 ttl pk-yrs) Types: Cigarettes Start date: 07/30/1978 Quit date: 07/30/2008 Years since quittin.9 Smokeless tobacco: Never Tobacco comments: mar 2007 Vaping Use Vaping Use: Never used Substance and Sexual Activity Alcohol use: No Drug use: No Sexual activity: Not Currently Other Topics Concern Service No Blood Transfusions No Caffeine Concern Yes Comment: 2 bottles/cans soda/day Occupational Exposure No Hobby Hazards No Sleep Concern Yes Comment: r/t abd pain Stress Concern Yes Weight Concern Yes Comment: trying to lose weight Special Diet No Back Care Yes Comment: in past has seen a chiropractor, stopped r/t DEXA Exercise Yes Comment: on feet all day r/t work Bike Helmet No Comment: does not apply Seat Belt Yes Self-Exams Not Asked Social History Narrative Not on file Social Determinants of Health Financial Resource Strain: Not on file Food Insecurity: Food Insecurity Present (12/11/2022) Hunger Vital Sign Worried About Running Out of Food in the Last Year: Often true Ran Out of Food in the Last Year: Patient declined Transportation Needs: Not on file Physical Activity: Not on file Stress: Not on file Social Connections: Not on file Intimate Partner Violence: Not on file Housing Stability: Not on file Ambulation: With assisted device -cane REVIEW OF SYSTEMS General: No fatigue, No change in weight Head: No significant headache Respiratory: No cough,No wheezing, No shortness of breath Cardiovascular:No chest pain, No palpitations, and No syncope Gastrointestinal: No nausea, vomiting, diarrhea No blood in stools No abdominal pain Urinary: No dysuira, No hematuria. + right flank pain + frequency Musculoskeletal: No muscle/joint pains , No edema Skin: No itching All other systems were reviewed and were negative. OBJECTIVE: BP 91/58 (BP Site: Right Arm, BP Position: Sitting, BP Cuff Size: Large) | Pulse 66 | Temp 36.7 C(98.1 F) (Skin) | Resp 20 | Wt 133.4 kg (294 lb) | SpO2 99% | BMI 48.92 kg/m | BSA 2.47 m Wt Readings from Last 1 Encounters: 07/03/23 133.4 kg (294 lb) General appearance: alert, no apparent distress. HEAD: Normocephalic, No masses, lesions, tenderness Respiratory: clear to auscultation, no rhonchi, no wheezes, and no crackles Heart: regular rate and regular rhythm Abdomen: abdomen soft, non-tender, and + right CVA tenderness EXTREMITIES: no edema, Skin: skin color, texture, turgor are normal NEURO: alert & oriented x 3 with fluent speech, no focal motor/sensory deficits No tremor Patient is a reliable historian of events Last 4 BP Readings: BP Readings from Last 4 Encounters: 07/03/23 91/58 06/27/23 104/52 06/07/23 125/38 05/25/23 171/75 Last 3 Weights: Wt Readings from Last 3 Encounters: 07/03/23 133.4 kg (294 lb) 06/27/23 131.1 kg (289 lb) 05/19/23 129.3 kg (285 lb) Estimated body mass index is 48.92 kg/m as calculated from the following: Height as of 06/27/23: 1.651 m (5' 5"). Weight as of this encounter: 133.4 kg (294 lb). LABS: Latest Reference Range & Units 03/08/22 15:13 04/01/22 11:14 04/05/22 13:02 06/10/22 12:25 09/07/22 15:34 10/06/22 10:10 Sodium 135 - 146 mmol/L 141 140 141 141 142 141 Potassium 3.5 - 5.1 mmol/L 4.5 4.5 4.3 4.7 5.0 5.3 (H) Chloride 98 - 107 mmol/L 104 104 104 106 106 108 (H) CO2 22 - 32 mmol/L 24 27 28 25 24 25 BUN 6 - 20 mg/dL 27 (H) 34 (H) 31 (H) 29 (H) 30 (H) 38 (H) Creatinine 0.5 - 1.0 mg/dL 1.7 (H) 2.2 (H) 1.7 (H) 1.6 (H) 1.6 (H) 1.6 (H) Estimated Glomerular Filtration Rate >=60 mL/min 33 (L) 25 (L) 32 (L) 35 (L) 36 (L) 35 (L) Anion Gap 7 - 15 mmol/L 13 9 9 10 12 8 Glucose 70 - 120 mg/dL 108 94 93 111 83 89 Calcium 8.4 - 10.2 mg/dL 9.7 9.6 9.2 9.1 9.6 9.3 (H): Data is abnormally high (L): Data is abnormally low Latest Reference Range & Units 01/08/20 13:48 06/13/22 15:39 Albumin / Creatinine Ratio, Urine <30 mg/g Creat <6 ALBUMIN / CREATININE RATIO, URINE Rpt PROTEIN/CREAT RATIO <150 mg/g 74 Rpt: View report in Results Review for more information IMAGING: EXAM US RENAL-06/06/2018 8:42 pm HISTORY acute kidney injury COMPARISON No comparisons TECHNIQUE Real-time renal sonogram is performed including evaluation of the bladder and aorta. FINDINGS The kidneys are normal in size and echogenicity with no masses, cysts, shadowing calculi, or hydronephrosis. The right kidney measures 9.8 x 4.8 x 4.2 cm. The left kidney measures 8.7 x 4.9 x 3.8 cm.Urinary bladder is collapsed with a Lynn. The aorta is not well-visualized. IMPRESSION IMPRESSION Unremarkable renal sonogram. EXAM: CT ABD/PELVIS WO IV CONTRAST - W ORAL CONTRAST DATE and TIME: 05/31/2019 1:40 pm HISTORY CLINICAL INFORMATION: Acute abdominal pain - guarding on exam, focused over her low abdomen TECHNIQUE Oral Contrast: Oral contrast was administered. IV Contrast: No IV Contrast used Abdomen/Pelvis: without intravenous contrast COMPARISON CT ABD/PELVIS W IV AND W ORAL CONTRAST dated 10/10/2018 FINDINGS LOWER CHEST: HEART(visualized): Unremarkable LUNG BASES: Unremarkable ABDOMEN/PELVIS: Limited evaluation without IV contrast. LINES AND DEVICES: None LIVER: Unremarkable BILE DUCTS: Unremarkable GALLBLADDER: Unremarkable PANCREAS: Unremarkable SPLEEN: Unremarkable ADRENALS: A 1.5 cm right adrenal nodule, Hounsfield unit less than 10, consistent with an adenoma.Left adrenal gland is normal. KIDNEYS/URETERS: Unremarkable BLADDER: Unremarkable BOWEL: No obstruction. Sequela of appendectomy. No obvious mass in the bowel. Enteric contrast seento the distal transverse colon. Moderate amount of colonic stool. Sigmoid diverticulosis without diverticulitis. LYMPH NODES: No lymphadenopathy. VESSELS: No abdominal aortic aneurysm. Mild diffuse atherosclerosis. REPRODUCTIVE ORGANS: Unremarkable PERITONEUM/RETROPERITONEUM: No free air, free fluid or abscess. ABDOMINAL WALL/SOFT TISSUES: No acute process. BONES: Moderate diffuse degenerative change in the spine. Compression deformity of L4 vertebral body with marked loss of vertebral body height, similar appearance compared to prior exam. IMPRESSION IMPRESSION No acute pathology in the abdomen/pelvis. ASSESSMENT/PLAN: Stage 3b chronic kidney disease (CKD) (HCC) (Primary) CKD stage 3 without significant proteinuria. Etiology is multifactorial from hypertension valvular heart disease obesity and combination of comorbid disease. History of acute renal failure -post renal -November 2019 peak creatinine 3.8. Volume status good. Most recent labs --Creat 1.5 and GFR 39. This is better than before. Recent issue with kidney stone needing procedures reviewed. Despite that GFR is stable. NO urine Symptoms now. Continue same. HTN, goal below 130/80 BP at goal. If anything too low. On cardiac meds--low dose lisinopril + BB. Defer to Cards. documented in this encounter Nursing Notes * Ivett Burton LPN - 07/03/2023 2:45 PM EDT Patient identified by verbal name and date of .Return visit Had Watchmen implanted 05/13 DeniesSOB or lower extremity edema Last labs 06/17/23 documented in this encounter Plan of Treatment Upcoming Encounters Date Type Department Care Team (Late st Contact Info) Description 07/05/2023 2:00 PM EDT Office Visit Cardiology [facility], [place] [address] [place] [address] Austin Penaloza MD [address] [place] [address] 07/13/2023 2:30 PM EDT Office Visit Pharmacy, [facility] [address] [place] [address] Keegan [facility] [address] [place] [address] 08/23/2023 2:00 PM EDT Office Visit Podiatry [facility] [address] [place] [address] Eveline Layne, Geetha [address] [place] [address] 09/27/2023 8:30 AM EDT Appointment Radiology, [place] [address] [place] [address] 10/09/2023 1:10 PM EDT Nutrition Services Nutrition & Weight Management, [facility] [address] [place] [address] Mercedez Kim RDN 132 [place] [address] 12/01/2023 1:45 PM EDT Office Visit Dermatology [facility] [address] [place] [address] Cyril Borges MD [address] [place] [address] 12/04/2023 1:00 PM EDT Cardiac Studies Cardiac Studies, [facility] 132 [place] [address] 12/20/2023 2:30 PM EDT Imaging Radiology, [address] [place] [address] 12/20/2023 3:20 PM EDT Office Visit Rheumatology [facility] [address] [facility] [place], [place] [address] John Yoder MD [address] [facility] [place], [place] [address] 01/04/2024 11:30 AM EST Appointment Radiology, [place] [address] [place] [address] 01/04/2024 1:30 PM EST Office Visit Urology, [place] [address] [place], [place] [id number] Luis Manuel Sandy MD [facility] [address] [place], [place] [address] 01/09/2024 1:20 PM EST Office Visit Family Practice [facility] [place] [address] Nikunj Plascencia MD [address] [facility] [place] [address] 03/20/2024 2:00 PM EST Office Visit Nephrology, [facility] [address] [facility] [place] [address] Geovanni Linder MD [address] [place], [place] [address] Scheduled Procedures Name Priority Associated Diagnoses Date/Ti [...] D LEVEL ONCE IN A LIFETIME-USE SMARTSET# 04042 Completed 06/17/2023, 06/10/2022, 05/28/2021, Additional history exists [...] this encounter Medical Devices Implanted Type Area Forestry Scientist Device Identifier Shelf Expiration Date Model / Serial / Lot Kyphon Hv-R Bone Cement Implanted:Qty: 1 on 08/17/2016 by Michael Smith MD [place] [facility] [place] N/A: Spine Thoracic 03/19/2019 C01A / C01A / [id number] Cement Bone Lv G 1119-140-01 - [id number] Implanted:Qty: 1 on 06/04/2018 by Duc Kimble MD at OR [facility] Right: Knee [employer] 11/19/20201119 40- / / [id number] Cement Bone Lv G 1119-140-01 - [id number] Implanted:Qty: 1 on 06/04/2018 by Duc Kimble MD at OR [facility] Right: Knee [employer] 06/19/2020 40- / / [id number] Persona The Personlized Knee System Vivacit-E Highly Crosslinked Polyethylene All-Poly Patella Cemented Implanted:Qty: 1 on 06/04/2018 by Duc Kimble MD at OR [facility] Right: Knee [employer] 06/19/2022 42-5402-0 00-35 / / [id number] Tibia Stem 5 Deg Rt Size F - [id number] Implanted:Qty: 1 on 06/04/2018 by Duc Kibmle MD at OR [facility] Right: Knee [employer] 10/21/2027 42-5320-0 75-02 / / [id number] Persona The Personalized Knee System Femur Cemented Cr Standard Implanted:Qty: 1 on 06/04/2018 by Duc Kimble MD at OR [facility] Right: Knee [employer] 11/20/2027 42-5026-0 62-02 / / [id number] Persona The Personalized Knee System Vivacit-E Highly Crosslinked Polyethylene Articular Surface Medial Congruent Implanted:Qty: 1 on 06/04/2018 by Duc Kimble MD at OR [facility] Right: Knee [employer] 11/19/2022 42-5221-0 07-12 / / [id number] Device Watchman Flx 24mm - [id number] Implanted:Qty: 1 on 10/06/2022 by Austin Penaloza MD at [facility] [place] [employer] : INTRV CARD [id number] 03/07/2025 [id number] 40 / / [id number] Device Watchman Flx 27mm - [id number] Implanted:Qty: 1 on 10/06/2022 by Austin Penaloza MD at [facility] [employer] : INTRV CARD [id number] 08/07/2025 [id number] 70 / / [id number] documented as of this encounter Visit Diagnoses Diagnosis Stage 3b chronic kidney disease (HCC)- Primary Stage 3b chronic kidney disease (CKD) (HCC) Kidney stone Calculus of kidney documented in this encounter Advance Directives Latest Code Status on File Code Status Date Activated Date Inactivated Comments Full Code 05/01/2023 11:51 AM 05/01/2023 7:34 PM This order reflects the patients wishes and were consensually agreed upon. Question Answer Comments Discussion of Advance Directives occurred with: Not Discussed due to patient's condition Code Status History Code Status Date Activated Date Inactivated Comments Full Code 04/03/2023 12:57 PM 04/03/2023 9:07 PM Question Answer Comments Discussion of Advance Directives occurred with: Patient Full Code 10/06/2022 3:46 PM 10/07/2022 3:30 PM This order reflects the patients wishes and were consensually agreed upon. Question Answer Comments Discussion of Advance Directives occurred with: Not Discussed due to patient's condition Full Code 06/04/2018 11:16 AM 06/08/2018 3:44 PM This order reflects the patients wishes and were consensually agreed upon. Full Code 08/17/2016 12:34 PM 08/19/2016 5:28 PM This order reflects the patients wishes and were consensually agreed upon. Question Answer Comments Discussion of Advance Directives occurred with: Patient Does the patient have a Living Will? No Does the patient have Health Care Power of Gear Technician? No Care Teams Bread Dough Mixer Relationship Specialty Start Date End Date Nikunj Plascencia MD [address] [place] [address] PCP - General Family Medicine 10/31/19 documented as of this encounter
--- OUTSIDE RECORDS SUMMARY | 2023-07-29 04:01 | External Medical Summary | Summary of Care ---
Author Name Unknown Organization [facility] Address [address] [place] [address] Phone [phone] Care Team Providers Care Academic Services Coordinator Name Role Phone Nikunj Plascencia MD Primary Care Provider [phone] Encounter Details Date Type Department Care Team (Late st Contact Info) Description 06/27/2023 Telephone Pharmacy, [facility] [address] [employer] [place] [address] [facility] [address] [facility] [place] [address] Allergies Active Allergy Reactions Criticality Noted Date Comments Egg Shells Nausea/vomiting Medium 06/16/2018 Other reaction(s): GI SYMPTOMS Egg Yolk High 11/29/2019 Other reaction(s): GI upset Ibuprofen Other (Please comment) Medium 07/30/2010 Stomach upset Morphine Edema face/lips/tongue High 08/28/2021 Other reaction(s): LEGS SWELL documented as of this encounter (statuses as of 07/05/2023) Medications Medication Sig Dispensed Refills Start Date [...] 30 g 5 05/09/2022 Active Saline Nasal [place] 0.65 % Nasal Solution (Hilger) Q6H 0 06/06/2022 Active Clobetasol Propionate 0.05 [...] Powder Use as directed. 0 Acti ve Wegovy 0.25 MG/0.5ML Subcutaneous Solution Auto-injector (Semaglutide-Weight Management)Indicatio ns:Morbid obesity (HCC) Inject 0.25 mg under the skin once a week. 2 mL 0 06/27/2023 Active Hospital, Clinic, or Other Facility Administered Medication Ordered Dose Route Frequency Start Date End Date Status atropine sulfate inj 0.4 mgIndications:Chest pain, unspecified type 0.4 mg IV PUSH PRN 01/29/2021 Active documented as of this encounter (statuses as of 07/05/2023) Active Problems Problem Noted Date Diagnosed Date Renal stone 03/21/2023 Presence of Watchman left atrial appendage closu re device 12/19/2022 PAF (paroxysmal atrial fibrillation) 08/17/2022 Overview: Added automatically from request for surgery [id number] Nasal septal perforation 06/13/2022 Overview: Per ENT [...] as of this encounter (statuses as of 07/05/2023) Resolved Problems Problem Noted Date Diagnosed Date [...] 140/90 12/12/201111/09 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 07/30/2018 Overview: [place] palsy Tinea 06/27/2011 07/30/2018 Mixed urge and stress incontinence 12/15/2008 10/08/2019 ADVANCE DIRECTIVE INFORMATION 06/17/2004 10/08/2019 documented as of this encounter (statuses as of 07/05/2023) Immunizations Name Administration Dates Next Due COVID-19 mRNA, LNP-s, No Pre serve, 2-Dose Series (Quosis) 10/05/2020,09/14/2020 Covid-19, Mrna, Lnp-s, Pf, B ivalent, 30 Mcg, IM, 12 yrs and above (Pfizer) 05/26/2022 Pneumococcal Conjugate Vacc, 13 Valent (Prevnar) 05/30/2016 Pneumococcal Conjugate Vacci ne, 20-valent ([id number]) 04/03/2023 Seasonal Influenza Virus Vac cine, Unspecified [...] encounter Miscellaneous Notes * Telephone Encounter - Tracee Ziegler LPN - 07/04/2023 12:36 PM EDT Called pt, let message for a return call * Telephone Encounter - Sarah Sutton CPhT - 07/04/2023 10:48 AM EDT Patients insurance would like to inform the office that wegovy is not requiring review because excluded from coverage Thank you, Clarisa Sutton Peritoneal Dialysis Registered Nurse I [facility] (Formerly Telepharmacy) 07/04/2023,10:48 AM * Telephone Encounter - Brittany Gomes LPN - 07/04/2023 9:42 AM EDT Submitted prior auth for Lor under [facility] insurance. [id number] * Telephone Encounter - Brittany Gomes LPN - 07/04/2023 9:38 AM EDT Prior auth submitted via [facility] for Wegovy with information from below. [place]: [id number] *Unable to be processed* * Telephone Encounter - [facility] - 06/27/2023 2:02 PM EDT Patient needs prior auth on Wegovy 0.25/0.5ml auto-injector. Thank you! Bin: [id number] Id: [id number] Pcn: NVTD documented in this encounter Plan of Treatment Upcoming Encounters Date Type Department Care Team (Late st Contact Info) Description 07/05/2023 1:30 PM EDT Cardiac Studies [facility] [place] [address] [place] [address] [place], Ekg [address] [place] [address] 07/05/2023 2:00 PM EDT Office Visit Cardiology [facility] [address] [place] [address] Austin Penaloza MD [address] [place] [address] 07/13/2023 2:30 PM EDT Office Visit Pharmacy, [facility] 132 [facility] [place] [address] [facility] [place] [address] 08/23/2023 2:00 PM EDT Office Visit Podiatry [facility] [address] [place] [address] Eveline Layne, DPGeetha [address] [place] [address] [place] [address] 09/27/2023 8:30 AM EDT Appointment Radiology, [address] [address] 10/09/2023 1:10 PM EDT Nutrition Services Nutrition & Weight Management, [facility] [address] [place] [address] Mercedez Kim RDN [address] [place] [address] 12/01/2023 1:45 PM EDT Office Visit Dermatology [facility] 16 [place] [address] Cyril Borges MD [address] [place] [address] 12/04/2023 1:00 PM EDT Cardiac Studies Cardiac Studies, [facility] [address] [place] [address] 12/20/2023 2:30 PM EDT Imaging Radiology, [address] [place] [address] 12/20/2023 3:20 PM EDT Office Visit Rheumatology [address] [place] [address] John Yoder MD [address] [place] [address] [place] [address] 01/04/2024 11:30 AM EST Appointment Radiology, [address] [address] 01/04/2024 1:30 PM EST Office Visit Urology, [address] [address] Luis Manuel Sandy MD [address] [place] [facility] [place] [address] 01/09/2024 1:20 PM EST Office Visit Family Practice [facility] [address] [place] [address] Nikunj Plascencia MD [address] [facility] [place] [address] 03/20/2024 2:00 PM EST Office Visit Nephrology, Jason Salas [address] [facility] [place] [address] Geovanni Linder MD [address] [place] [address] Scheduled Procedures Name Priority Associated Diagnoses Date/Ti [...] Additional history exists Lipid Panel 04/27/2028 04/28/2023, 0210/2023, 01/11/2021, Additional history exists DTaP,Tdap,and Td Vaccines (3 - Td or Tdap) 01/06/2032 01/05/2022, 11/18/2011 Pap Smear Discontinued 08/05/2019, 07/21, 03/01/2010 RETIRED - COLONOSCOPY-EVERY 5 YRS AGES 18-100 Discontinued 03/24/2021, 09/19/2018, 09/19/2018, Additional history exists Influenza Vaccine (FLU shot) Completed 12/07/2022, 10/21/2021, 11/26/2020, Additional history exists Pneumococcal Vaccine: 65+ Years Completed 04/03/2023, 05/30/2016 VITAMIN D LEVEL ONCE IN A LIFETIME-USE SMARTSET# [id number] Completed 06/17/2023, 06/10/2022, 05/28/2021, Additional history exists [...] this encounter Medical Devices Implanted Type Area Mechanic Helper Device Identifier Shelf Expiration Date Model / Serial / Lot Kyphon Hv-R Bone Cement Implanted:Qty: 1 on 08/17/2016 by Michael Smith MD at [place] [facility] [place]/A: Spine Thoracic 03/19/2019 C01A / C01A / [id number] Cement Bone Lv G 1119-140-01 - [id number] Implanted:Qty: 1 on 06/04/2018 by Duc Kimble MD at OR [facility] Right: Knee [employer] 11/19/2020 00-1119-1 40-01 / / [id number] Cement Bone Lv G 1119-140-01 - [id number] Implanted:Qty: 1 on 06/04/2018 by Duc Kimble MD at OR [facility] Right: Knee [employer] 06/19/2020 00-1119-1 40-01 / / [id number] Persona The Personlized Knee System Vivacit-E Highly Crosslinked Polyethylene All-Poly Patella Cemented Implanted:Qty: 1 on 06/04/2018 by Duc Kimble MD at OR [facility] Right: Knee [employer] 06/19/2022 42-5402-0 00-35 / / [id number] Tibia Stem 5 Deg Rt Size F - [id number] Implanted:Qty: 1 on 06/04/2018 by Duc Kimble MD at OR [facility] Right: Knee [employer] 10/21/2027 42-5320-0 75-02 / / [id number] Persona The Personalized Knee System Femur Cemented Cr Standard Implanted:Qty: 1 on 06/04/2018 by Duc Kimble MD at OR [facility] Right: Knee [employer] 11/20/2027 42-5026-0 62-02 / / [id number] Persona The Personalized Knee System Vivacit-E Highly Crosslinked Polyethylene Articular Surface Medial Congruent Implanted:Qty: 1 on 06/04/2018 by Duc Kimble MD at OR [facility] Right: Knee [employer] 11/19/2022 42-5221-0 07-12 / / [id number] Device Watchman Flx 24mm - [id number] Implanted:Qty: 1 on 10/06/2022 by Austin Penaloza MD at [facility] [employer] : INTRV CARD [id number] 03/07/2025 [id number] 40 / / [id number] Device Watchman Flx 27mm - [id number] Implanted:Qty: 1 on 10/06/2022 by Austin Penaloza MD at [facility] [employer] : INTRV CARD [id number] 08/07/2025 [id number] 70 / / [id number] documented as of this encounter Advance Directives Latest Code Status [...] the patient have Health Care Power of Baffle Mounter? No Care Teams Academic Services Coordinator Relationship Specialty Start Date End Date Nikunj Plascencia MD [address] [place] [address] PCP - General Family Medicine 10/31/19 documented as of this encounter
--- OUTSIDE RECORDS SUMMARY | 2023-07-29 04:01 | External Medical Summary | Summary of Care ---
Author Name Unknown Organization [facility] Address [address] [place] [address] Phone [phone] Care Team Providers Care Counselor Marriage And Family Name Role Phone Nikunj Plascencia MD Primary Care Provider [phone] Reason for Visit * Reason Comments Follow Up Encounter Details Date Type Department Care Team (Late st Contact Info) Description 07/05/2023 2:00 PM EDT Office Visit Cardiology [facility] [address] [place] [address] Austin Penaloza MD [address] [place] [address] Severe aortic stenosis*; Left heart failure with preserved left ventricular function (HCC); Coronary artery disease involving [place]onga coronary artery of [place]onga heart without angina pectoris; Paroxysmal atrial fibrillation (HCC); Dyslipidemia, goal LDL below 70; HTN, goal below 140/90; Stage 3b chronic kidney disease (HCC) Allergies Active Allergy Reactions Criticality Noted Date [...] 30 g 5 05/09/2022 Active Saline Nasal [place] 0.65 % Nasal Solution (Morovis) Q6H 0 06/06/2022 Active Clobetasol Propionate 0.05 [...] Overview: Added automatically from request for surgery [id number] Nasal septal perforation 06/13/2022 Overview: Per ENT [...] 140/90 12/12/201111/09 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 07/30/2018 Overview: [place] palsy Tinea 06/27/2011 07/30/2018 Mixed urge and stress incontinence 12/15/2008 10/08/2019 ADVANCE DIRECTIVE INFORMATION 06/17/2004 10/08/2019 documented as of this encounter (statuses as of 07/05/2023) Immunizations Name Administration Dates Next Due COVID-19 mRNA, LNP-s, No Pre serve, 2-Dose Series ([id number]) 10/05/2020,09/14/2020 Covid-19, Mrna, Lnp-s, Pf, B ivalent, 30 Mcg, IM, 12 yrs and above (EyeSee360) 05/26/2022 Pneumococcal Conjugate Vacc, 13 Valent (Prevnar) 05/30/2016 Pneumococcal Conjugate Vacci ne, 20-valent ([id number]) 04/03/2023 Seasonal Influenza Virus Vac cine, Unspecified [...] 0 07/30/1978 - 07/30/2008 Smokeless Tobacco: Never Tobacco Cessation:Counseling Given: Not Answered Comments:mar 2007 Alcohol Use Standard Drinks/Week Comments [...] Sign Reading Time Taken Comments Blood Pressure 128/76 07/05/2023 2:08 PM EDT Pulse 60 07/05/2023 2:08 PM EDT Temperature - - Respiratory Rate - - Oxygen Saturation 100% 07/05/2023 2:08 PM EDT Inhaled Oxygen Concentration - - Weight 132.5 kg (292 lb 3.2 oz) 07/05/2023 2:08 PM EDT Height 163.8 cm (5' 4.5") 07/05/2023 2:08 PM EDT Body Mass Index 49.38 07/05/2023 2:08 PM EDT documented in this encounter Functional [...] as of this encounter Progress Notes * Austin Penaloza MD - 07/05/2023 2:45 PM EDT I have reviewed the advanced practitioner's documentation on the date of service referenced in note, and I agree with, and take responsibility for the plan of care. 68 year old female with aortic stenosis Trileaflet valve with moderate degree of calcification Watcman implantation last year EF is normal, peak velocity is 402 cm/s MONTEZ noticed during walking the dog CT abdomen/pelvis done 01/2023 showed adequate TF access for TAVR Plan for coronary angiogram, CT scan and surgical risk stratification. She has not seen a dentist in years, has been instructed to find one locally and obtain dental clearance Austin Penaloza MD MPH Interventional Cardiology Pager: [phone] 07/05/23 2:54 PM * Fernando Carrasco, [facility] - 07/05/2023 1:51 PM EDT Cardiology Outpatient Valve Clinic Note 07/05/2023 Caroline Paulino is a 68 year old female in clinic today for follow-up of Aortic stenosis. She has no one accompanying her for today's visit.. She was referred by: MAICOL Kimbrough Her primary cardiology provider is: MAICOL Morris Her cardiac history is significant for (no) Diabetes Mellitus (+) Hypertension (Goal LDL < 70) Dyslipidemia (Smoker: Former) Tobacco Use- cigarettes (no) Carotid disease (no) Peripheral vascular disease (CKD stage 3b) Renal disease (no) Stroke Coronary artery disease 11/07/2016 coronary arteries with diffuse moderate irregularities Aortic valve with stenosis Heart failure with preserved EF Paroxysmal atrial fibrillation S/p Watchman #24 10/07/2022 05/16/2023 Echocardiogram The qualitative LV ejection fraction is 55-59% (normal). The LV wall thickness is mildly increased (concentric). The left atrium is moderately enlarged (42-48 ml/m^2). The aortic valve has three leaflets. The aortic valve is moderately calcified. Severe aortic valve stenosis is present. Mild aortic valve regurgitation is present. Compared to last available study changes are noted as follows: Aortic valve systolic gradient has increased, severe aortic valve stenosis is present Ao V2 max: 402.7 cm/sec, Ao mean P.0 mmHg, NIKKIE(V,D): 0.95 cm2 Interim History: Overall, feeling "all right" Can't walk around the block as well Has been more winded, needs to stop to catch her breath Notes a discomfort to her chest like a pinch, occurs with walking her dog Last a couples seconds, resolves with rest No dizziness, lightheadedness or syncope Gets dizzy and lightheaded, no syncope Gets occasional palpitations, lasted a bit and resolves with rest Appetite is "too good " Sleeps poorly Review of Systems Review of Systems Constitutional: Positive for fatigue. HENT: Positive for dental problem. Eyes: Negative. Respiratory: Positive for chest tightness and shortness of breath. Cardiovascular: See HPI Gastrointestinal: Negative. Genitourinary: Positive for dysuria and urgency. Musculoskeletal: Negative. Neurological: Negative. Psychiatric/Behavioral: Negative. BP Readings from Last 4 Encounters: 07/05/23 128/76 07/03/23 91/58 06/27/23 104/52 06/07/23 125/38 . Wt Readings from Last 4 Encounters: 07/05/23 132.5 kg (292 lb 3.2 oz) 07/03/23 133.4 kg (294 lb) 06/27/23 131.1 kg (289 lb) 05/19/23 129.3 kg (285 lb) Current Outpatient Medications Medication Sig Dispense Refill [...] for Itching. 30 g 5 Saline Nasal [place] 0.65 % Nasal Solution (Morovis) Q6H Clobetasol Propionate 0.05 % External Ointment [...] External Cream Hydrocortisone 2.5 % External Cream Clopidogrel Bisulfate Powder Use as directed. (Patient not taking: Reported on 07/03/2023) Citalopram Hydrobromide 10 MG Oral Tablet (CeleXA) Betamethasone Acetate Powder Use as directed. (Patient not taking: Reported on 07/03/2023) oxyBUTYnin Chloride ER 5 MG Oral Tablet Extended Release 24 Hour (Ditropan XL) Take 1 Tablet by mouth in the morning. 90 Tablet 3 Atorvastatin Calcium 80 MG Oral Tablet (Lipitor) Take 1 Tablet by mouth in the morning. 90 Tablet 3 Zoster Vac Recomb Adjuvanted 50 MCG/0.5ML Intramuscular Suspension Reconstituted (Shingrix) Inject 0.5 mL into a large muscle now and repeat dose in 60 to 180 days 1 Each 1 Wegovy 0.25 MG/0.5ML Subcutaneous Solution Auto-injector (Semaglutide-Weight Management) Inject 0.25 mg under the skin once a week. 2 mL 0 Pregabalin 150 MG Oral Capsule (Lyrica) Take 1 Capsule by mouth in the morning and 1 Capsule at noon and 1 Capsule before bedtime. 90 Capsule 0 Current Facility-Administered Medications Medication Dose Route Frequency Provider Last Rate Last Admin atropine sulfate inj 0.4 mg 0.4 mg IV Push PRN Trip Nolasco, DO Review of patient's allergies indicates: Allergen Reactions Egg Yolk Other reaction(s): GI upset Morphine Edema face/lips/tongue Other reaction(s): LEGS SWELL Egg Shells Nausea/vomiting Other reaction(s): GI SYMPTOMS Ibuprofen Other (Please comment) Stomach upset Past Medical History: Diagnosis Date --- DIABETES --- prediabetes Acute on chronic diastolic CHF (congestive heart failure) ([facility]) 01/26/2018 Allergic rhinitis Collazo's palsy left eye palsy Benign neoplasm of colon 11/20/2010 hyperplastic polyps- repeat colonoscopy in 10 years Bicuspid aortic valve 10/09/2019 Bullous pemphigoid 08/17/2016 txt with cellcept Chronic insomnia 12/22/2020 CKD (chronic kidney disease) stage 3, GFR 30-59 ml/min ([facility]) Compression fracture of body of thoracic vertebra ([facility]) 08/17/2016 Controlled substance agreement terminated 10/20/2021 Current tear of medial cartilage or meniscus of knee left knee Depression with anxiety 10/20/2021 Depressive disorder, not elsewhere classified Disorder of adrenal gland ([facility]) 01/26/2018 Dyslipidemia 12/20/2019 Fall 06/30/2022 Female [...] Moderate episode of recurrent major depressive disorder ([facility]) 10/08/2019 Other pulmonary embolism without acute cor pulmonale ([facility]) 07/27/2018 Overflow incontinence Paroxysmal atrial flutter ([facility]) 06/21/2021 Presence of Watchman left atrial appendage closure device 12/19/2022 Recurrent major depressive disorder in remission ([facility]) 01/26/2018 S/P kyphoplasty 08/17/2016 Sacroiliitis ([facility]) 01/26/2018 Senile osteoporosis 08/29/2017 Spinal stenosis of lumbar region without neurogenic claudication 01/04/2017 Status post total right knee replacement 06/06/2018 Tibial plateau fracture 01/22/2015 Past Surgical History: Procedure Laterality Date ARTHROPLASTY KNEE TOTAL Right 06/04/2018 ARTHROPLASTY KNEE TOTAL performed by Duc Kimble Jr., MD at OR [facility] ASP/INJECT GANGLION CYST bilaterally, right x2 COLONOSCOPY THRU STOMA, W/BIOPSY 11/20/2010 hyperplastic polyps- repeat colonoscopy in 10 years COLONOSCOPY, DIAGNOSTIC (RECTUM) 10/16/2017 poor prep, procedure aborted/[facility] COLONOSCOPY, DIAGNOSTIC (RECTUM) 09/19/2018 diverticulosis/COLONOSCOPY FLEXIBLE PROXIMAL DIAGNOSTIC performed by Kristen Nogueira MD at ENDOSCOPY [facility] COLONOSCOPY, DIAGNOSTIC (RECTUM) 03/24/2021 adenomatous polyp, diverticulosis, repeat 5 yrs / [facility] CORONARY ANGIOGRAPHY W/LEFT HEART CATH Right 11/07/2016 CORONARY ANGIOGRAPHY W/LEFT HEART CATH performed by Fernando Germain DO at [facility] CYSTO/URETERO W/LITHOTRIPSY Right 04/03/2023 CYSTOURETHROSCOPY URETEROSCOPY WITH LITHOTRIPSY AND STENT INSERTION performed by Luis Manuel Sandy MD at [facility] CYSTO/URETERO W/LITHOTRIPSY Right 05/01/2023 CYSTOURETHROSCOPY URETEROSCOPY WITH LITHOTRIPSY AND STENT INSERTION performed by Luis Manuel Sandy MD at [facility] EGD, FLEXIBLE, DIAGNOSTIC 10/13/2017 normal/[facility] EGD, FLEXIBLE, DIAGNOSTIC 03/24/2021 Barretts, gastritis / [facility] HYSTEROSCOPY;ENDOMETRIAL ABLAT 1998 hysteroscopy, rollerball ablation INFORMATION bengin lump removed from neck, 2 cyst removed from hand INJECT DX/THER SUBSTANCE INTERLAMINAR LUMBAR/SACRAL W IMAGE GUIDE 01/28/2019 INJECTION SPINE LUMBAR OR SACRAL performed by Yannick Daniel, DO at OR [facility] INJECT DX/THER SUBSTANCE INTERLAMINAR LUMBAR/SACRAL W IMAGE GUIDE 04/08/2019 INJECTION SPINE LUMBAR OR SACRAL performed by Yannick Daniel, at OR [facility] INJECT DX/THER SUBSTANCE INTERLAMINAR LUMBAR/SACRAL W IMAGE GUIDE 09/23/2019 INJECTION SPINE LUMBAR OR SACRAL performed by Yannick Daniel, DO at OR [facility] INJECT DX/THER SUBSTANCE INTERLAMINAR LUMBAR/SACRAL W IMAGE GUIDE 01/02/2020 INJECTION SPINE LUMBAR OR SACRAL performed by Yannick Daniel, at OR [facility] INJECT DX/THER SUBSTANCE INTERLAMINAR [...] performed by Michael Smith MD at OR [facility] MAMMOGRAM SCREENING-BILATERAL 2004 [facility] PERC CLOSURE TRANSCATH LEFT ATRIAL APPENDAGE W/ENDOCARDIAL IMPLANT Right 10/06/2022 PERCUTANEOUS CLOSURE LEFT ATRIAL APPENDAGE IMPLANT performed by Austin Penaloza MD at CARDIAC [facility] REMOVAL OF APPENDIX 11/2018 SACROILIAC [...] OR [facility] THIGH OR KNEE SURGERY NEC 2006 Knee/Leg Other Procedures Unlisted Family History Problem Relation Age of Onset Stroke Mother dementia. complications COVID as well. Arthritis Mother Cancer Mother uterine Heart Disorder Mother bypass pig valve aorta Heart Disorder Father , age 62 Diabetes Father Stroke Father Hypertension Father Colon cancer Father Thyroid Disorder Sister No Past Hx Sister Other (Other) Sister hypersensitive to touch Heart Disorder Brother congenital Social History Tobacco Use Smoking status: Former Current packs/day: 0.00 Average packs/day: 0.5 packs/day for 30.0 years (15.0 ttl pk-yrs) Types: Cigarettes Start date: 07/30/1978 Quit date: 07/30/2008 Years since quittin.9 Smokeless tobacco: Never Tobacco comments: mar 2007 Vaping Use Vaping Use: Never used Substance Use Topics Alcohol use: No Drug use: No Labwork BMP results Recent Labs Units 06/17/23 1229 04/28/23 1106 03/31/23 0917 SODIUM - [facility] mmol/L 142 142 141 POTASSIUM - [facility] mmol/L 5.1 5.0 5.3* CHLORIDE - [facility] mmol/L 108* 108* 112* CO2 - [facility] mmol/L * BUN - [facility] mg/dL 41* 38* 49* CREATININE - [facility] mg/dL 1.5* 1.5* 1.6* ESTIMATED GLOMERULAR FILTRATION RATE - [facility] mL/min 39* 38* 36* GLUCOSE - [facility] mg/dL 92 96 91 CALCIUM - [facility] mg/dL 9.9 9.2 8.9 Lipid panel results Recent Labs Units 04/28/23 1106 03/31/23 0917 TRIGLYCERIDES - [facility] mg/dL 71 64 CHOLESTEROL - [facility] mg/dL 116 101 HDL CHOLESTEROL - [facility] mg/dL 55 54 LDL CHOLESTEROL (CALCULATED) - [facility] mg/dL 47 34 CBC results Recent Labs Units 04/28/23 1106 03/31/23 0917 10/06/22 1010 WBC K/uL 5.69 5.40 4.50 HGB g/dL 8.9* 8.9* 10.8* HCT % 30.2* 30.1* 36.5 PLT K/uL 171 120* 120* HbA1c results No results for input(s): "HGBA1C" in the last 67952 hours. TSH results No results for input(s): "TSH" in the last 90047 hours. Hepatic panel results Recent Labs Units 06/17/23 1229 03/31/23 0917 10/06/22 1010 PROTEIN - [facility] g/dL 6.9 6.1 6.3 BILIRUBIN, TOTAL - [facility] mg/dL 0.2 0.2 0.5 ALKALINE PHOSPHATASE - [facility] U/L 81 62 44 AST - [facility] U/L 21 26 21 ALT - [facility] U/L 11 14 17 INR results Recent Labs Units 10/06/22 1010 INR - [facility] 1.0 Physical Exam: Today's vital signs: BP 128/76 (BP Site: Left Arm, BP Position: Sitting, BP Cuff Size: Large) | Pulse 60 | Ht 1.638 m (5' 4.5") | Wt 132.5 kg (292 lb 3.2 oz) | SpO2 100% | BMI 49.38 kg/m | BSA 2.46m BP recheck Physical Exam Constitutional: General: She is not in acute distress. Appearance: Normal appearance. She is normal weight. Eyes: Conjunctiva/sclera: Conjunctivae normal. Neck: Vascular: No carotid bruit or JVD. Cardiovascular: Rate and Rhythm: Normal rate and regular rhythm. Pulses: Normal pulses. Heart sounds: S1 normal and S2 normal. Murmur heard. Harsh holosystolic murmur is present with a grade of 4/6 at the upper right sternal border and upper left sternal border radiating to the neck and apex. No friction rub. No gallop. No S3 or S4 sounds. Pulmonary: Effort: Pulmonary effort is normal. No respiratory distress. Breath sounds: Normal breath sounds. Abdominal: General: Abdomen is flat. Bowel sounds are normal. There is no distension. Palpations: Abdomen is soft. Musculoskeletal: Right lower leg: No edema. Left lower leg: No edema. Skin: General: Skin is warm and dry. Coloration: Skin is not pale. Neurological: General: No focal deficit present. Mental Status: She is alert and oriented to person, place, and time. Psychiatric: Attention and Perception: Attention normal. Mood and Affect: Mood normal. Behavior: Behavior normal. Impression and Plan: ( seen with Dr. Penaloza) 1. Severe aortic stenosis 2. Left heart failure with preserved left ventricular function (HCC) 3. Coronary artery disease involving [place] coronary artery of [place] heart without angina pectoris She is in clinic today for evaluation up of aortic stenosis Echocardiogram on 05/16/2023 shows EF 55-59% with severe aortic stenosis, Aortic valve velocity 4.0 m/s, mild aortic regurgitation Coronary artery disease: moderate diffuse irregularities per cath 11/07/2016 Her symptoms include: shortness of breath, chest discomfort, and fatigue She does not appear hypervolemic on exam today Plan: Proceed with screening process for consideration of aortic valve replacement, patient will need TAVR CTA, coronary angiogram, and evaluation by cardiovascular surgery for risk stratification. 4. Paroxysmal atrial fibrillation (HCC) Heart sounds are regular rhythm today No significant palpitations EKG today shows normal sinus rhythm S/P Watchman 10/07/2022 5. Dyslipidemia, goal LDL below 70 LDL 47 on 04/28/2023 Remains on atorvastatin 80 mg daily 6. HTN, goal below 140/90 7. Stage 3b chronic kidney disease (HCC) Blood pressure is at goal today with lisinopril and metoprolol Creatinine 1.5 with a GFR of 39 on 06/17/2023 Return for Return to be determined after further testing. I spent a total of 30-39 minutes (exact time 35 mins) on the date of service in preparation, delivery, and documentation of the care provided to Caroline Paulino excluding any time spent in the performance of separately billed services. Fernando Carrasco DNP, MAICOL Department [place] [address] documented in this encounter Nursing Notes * Jodi Escoto MED ASSIST - 07/05/2023 2:07 PM EDT Patient was instructed to not get up on the exam table/exam chair until directed and assisted by their provider; patient is to remain seated in the chair/ wheelchair/ exam table/ exam chair for fall prevention and safety reasons. Patient is aware to have assistance to step down off exam table/exam chair with personnel. Patient voiced full comprehension of instructions. documented in this encounter Plan of Treatment Upcoming Encounters Date Type Department Care Team (Late st Contact Info) Description 07/13/2023 2:30 PM EDT Office Visit Pharmacy, [facility] [address] [facility] [place] [address] [facility] [address] [facility] [place] [address] 08/23/2023 2:00 PM EDT Office Visit Podiatry [facility] [address] [place] [address] Eveline Layne, DPM [address] [place] [address] 09/27/2023 8:30 AM EDT Appointment Radiology, [address] [address] 10/09/2023 1:10 PM EDT Nutrition Services Nutrition & Weight Management, [facility] [address] [place] [address] Mercedez Kim RDN [address] [place] [address] 12/01/2023 1:45 PM EDT Office Visit Dermatology [facility][1] [address] [place] [address] Cyril Borges MD [address] [place] [address] 12/04/2023 1:00 PM EDT Cardiac Studies Cardiac Studies, [facility] [address] [place] [address] 12/20/2023 2:30 PM EDT Imaging [place]iology, [address] [place] [address] 12/20/2023 3:20 PM EDT Office Visit Rheumatology [address] [place] [address] John Yoder MD [address] [place] [address] [place] [address] 01/04/2024 11:30 AM EST Appointment Radiology, [address] [address] 01/04/2024 1:30 PM EST Office Visit Urology, [place] [address] [place] [address] Luis Manuel Sandy MD [address] [place] [address] 01/09/2024 1:20 PM EST Office Visit Family Practice [facility] [address] [place] [address] Nikunj Plascencia MD [address] [facility] [place] [address] 03/20/2024 2:00 PM EST Office Visit Nephrology, [facility] [address] [facility] [place] [address] Geovanni Linder MD [address] [facility] [place] [address] Scheduled Procedures Name Priority Associated Diagnoses Date/Ti [...] D LEVEL ONCE IN A LIFETIME-USE SMARTSET# 82891 Completed 06/17/2023, 06/10/2022, 05/28/2021, Additional history exists [...] this encounter Medical Devices Implanted Type Area Hose Mender Device Identifier Shelf Expiration Date Model / Serial / Lot Kyphon Hv-R Bone Cement Implanted:Qty: 1 on 08/17/2016 by Michael Smith MD at OR [facility] N/A: Spine Thoracic 03/19/2019 C01A / C01A / [id number] Cement Bone Lv G 1119-140-01 - [id number] Implanted:Qty: 1 on 06/04/2018 by Duc Kimble MD at OR [facility] Right: Knee [employer] 11/19/2020 00-1119-1 40- / / [id number] Cement Bone Lv G 1119-140-01 - [id number] Implanted:Qty: 1 on 06/04/2018 by Duc Kimble MD at OR [facility] Right: Knee [employer] 06/19/2020 00-1119-1 40-01 / / [id number] Persona The Personlized Knee System Vivacit-E Highly Crosslinked Polyethylene All-Poly Patella Cemented Implanted:Qty: 1 on 06/04/2018 by Duc Kimble MD at OR [facility] Right: Knee [employer] 06/19/2022 42-5402-0 00-35 / / [id number] Tibia Stem 5 Deg Rt Size F - [id number] Implanted:Qty: 1 on 06/04/2018 by Duc Kimble MD at OR [facility] Right: Knee [employer] 10/21/2027 42-5320-0 75-02 / / [id number] Persona The Personalized Knee System Femur Cemented Cr Standard Implanted:Qty: 1 on 06/04/2018 by Duc Kimble MD at OR [facility] Right: Knee [employer] 11/20/2027 42-5026-0 62-02 / / [id number] Persona The Personalized Knee System Vivacit-E Highly Crosslinked Polyethylene Articular Surface Medial Congruent Implanted:Qty: 1 on 06/04/2018 by Duc Kimble MD at OR [facility] Right: Knee [employer] 11/19/2022 42-5221-0 07-12 / / [id number] Device Watchman Flx 24mm - [id number] Implanted:Qty: 1 on 10/06/2022 by Austin Penaloza MD at [facility] [employer] : INTRV CARD [id number] 03/07/2025 [id number] 40 / / [id number] Device Watchman Flx 27mm - [id number] Implanted:Qty: 1 on 10/06/2022 by Austin Penaloza MD at [facility] [employer] : INTRV CARD [id number] 08/07/2025 [id number] 70 / / [id number] documented as of this encounter Visit Diagnoses Diagnosis Severe aortic stenosis- Primary Aortic valve disorders Left heart failure with preserved left ventricular function (HCC) Left heart failure Coronary artery disease involving [place] coronary artery of [place] heart without angina pectoris Paroxysmal atrial fibrillation (HCC) Atrial fibrillation Dyslipidemia, goal LDL below 70 Other and unspecified hyperlipidemia HTN, goal below 140/90 Unspecified essential hypertension Stage 3b chronic kidney disease (HCC) documented in this encounter Advance Directives Latest [...] the patient have Health Care Power of C[employer] Chocolate Dipper? No Care Teams Counselor Marriage And Family Relationship Specialty Start Date End Date Nikunj Plascencia MD [address] [place] [address] PCP - General Family Medicine 10/31/19 documented as of this encounter
--- OUTSIDE RECORDS SUMMARY | 2023-07-29 04:01 | External Medical Summary | Summary of Care ---
Author Name Unknown Organization [facility] Address [address] [place] [address] Phone [phone] Care Team Providers Care Poultry Scientist Name Role Phone Nikunj Plascencia MD Primary Care Provider [phone] Reason for Visit * Reason Onset Date Comments Scheduling 07/07/2023 Encounter Details Date Type Department Care Team (Late st Contact Info) Description 07/07/2023 Telephone [place] [facility] [place] [facility] [facility] [address] [place] [address] Mireille Ydaav, RN Scheduling Allergies Active Allergy Reactions Criticality Noted Date Comments Egg Shells Nausea/vomiting Medium 06/16/2018 Other reaction(s): GI SYMPTOMS Egg Yolk High 11/29/2019 Other reaction(s): GI upset Ibuprofen Other (Please comment) Medium 07/30/2010 Stomach upset Morphine Edema face/lips/tongue High 08/28/2021 Other reaction(s): LEGS SWELL documented as of this encounter (statuses as of 07/07/2023) Medications Medication Sig Dispensed Refills Start Date [...] 30 g 5 05/09/2022 Active Saline Nasal [place] 0.65 % Nasal Solution (Dougherty) Q6H 0 06/06/2022 Active Clobetasol Propionate 0.05 [...] as of this encounter (statuses as of 07/07/2023) Active Problems Problem Noted Date Diagnosed Date Renal stone 03/21/2023 Presence of Watchman left atrial appendage closu re device 12/19/2022 PAF (paroxysmal atrial fibrillation) 08/17/2022 Overview: Added automatically from request for surgery [id number] Nasal septal perforation 06/13/2022 Overview: Per ENT [...] as of this encounter (statuses as of 07/07/2023) Resolved Problems Problem Noted Date Diagnosed Date [...] 140/90 12/12/201111/09 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 07/30/2018 Overview: [place] palsy Tinea 06/27/2011 07/30/2018 Mixed urge and stress incontinence 12/15/2008 10/08/2019 ADVANCE DIRECTIVE INFORMATION 06/17/2004 10/08/2019 documented as of this encounter (statuses as of 07/07/2023) Immunizations Name Administration Dates Next Due COVID-19 mRNA, LNP-s, No Pre serve, 2-Dose Series (ididwork) 10/05/2020,09/14/2020 Covid-19, Mrna, Lnp-s, Pf, B ivalent, 30 Mcg, IM, 12 yrs and above (Pfizer) 05/26/2022 Pneumococcal Conjugate Vacc, 13 Valent (Prevnar) 05/30/2016 Pneumococcal Conjugate Vacci ne, 20-valent ([id number]) 04/03/2023 Seasonal Influenza Virus Vac cine, Unspecified [...] encounter Miscellaneous Notes * Telephone Encounter - Mireille Yadav, RN - 07/07/2023 12:34 PM EDT Unable to leave VM on listed numbers, will try again later [facility] Interventional Valve Nurse Navigator documented in this encounter Plan of Treatment Upcoming Encounters Date Type Department Care Team (Late st Contact Info) Description 07/13/2023 2:30 PM EDT Office Visit Pharmacy, [address] [place] [address] [facility] 132 [facility] [place] [address] 08/23/2023 2:00 PM EDT Office Visit Podiatry [facility] 132 [facility] [place] [address] Eveline Layne, M 400 [facility] [place] [address] 09/27/2023 8:30 AM EDT Appointment Radiology, [address] [address] 10/09/2023 1:10 PM EDT Nutrition Services Nutrition & Weight Management, [facility] [place] [address] Mercedez Kim RDN [facility] [address] 12/01/2023 1:45 PM EDT Office Visit Dermatology [facility] [address] [place] [address] Cyril Borges MD [address] [place] [address] 12/04/2023 1:00 PM EDT Cardiac Studies Cardiac Studies, [facility] 132 [facility] [place] [address] 12/20/2023 2:30 PM EDT Imaging Radiology, [address] [place] [address] 12/20/2023 3:20 PM EDT Office Visit Rheumatology [address] [place] [address] John Yoder MD [address] [place] [address] [place] [address] 01/04/2024 11:30 AM EST Appointment Radiology, [address] [place] [address] 01/04/2024 1:30 PM EST Office Visit Urology, [place] [address] [place] [address] Luis Manuel Sandy MD [address] [place] [address] 01/09/2024 1:20 PM EST Office Visit Family Practice [facility] [address] [facility] [place] [address] Nikunj Plascencia MD [address] [place] [address] 03/20/2024 2:00 PM EST Office Visit Nephrology, [facility] 200 [facility] [place] [address] Geovanni Linder MD 200 [facility] [place] [address] Scheduled Procedures Name Priority Associated Diagnoses Date/Ti [...] D LEVEL ONCE IN A LIFETIME-USE SMARTSET# 39499 Completed 06/17/2023, 06/10/2022, 05/28/2021, Additional history exists [...] this encounter Medical Devices Implanted Type Area Sand Carrier Device Identifier Shelf Expiration Date Model / Serial / Lot Kyphon Hv-R Bone Cement Implanted:Qty: 1 on 08/17/2016 [place] Smith [place] [facility] [place]: Spine Thoracic 03/19/2019 C01A / C01A / [id number] Cement Bone Lv G 1119-140-01 - [id number] Implanted:Qty: 1 on 06/04/2018 by Duc Kimble MD at OR [facility] Right: Knee [employer] 11/19/20201119-1 40-01 / / [id number] Cement Bone Lv G 1119-140-01 - [id number] Implanted:Qty: 1 on 06/04/2018 by Duc Kimble MD at OR [facility] Right: Knee [employer] 06/19/2020-1119-1 40-01 / / [id number] Persona The Personlized Knee System Vivacit-E Highly Crosslinked Polyethylene All-Poly Patella Cemented Implanted:Qty: 1 on 06/04/2018 by Duc Kimble MD at OR [facility] Right: Knee [employer] 06/19/2022 42-5402-0 00-35 / / [id number] Tibia Stem 5 Deg Rt Size F - [id number] Implanted:Qty: 1 on 06/04/2018 by Duc Kimble MD at OR [facility] Right: Knee [employer] 10/21/2027 42-5320-0 75-02 / / [id number] Persona The Personalized Knee System Femur Cemented Cr Standard Implanted:Qty: 1 on 06/04/2018 by Duc Kimble MD at OR [facility] Right: Knee [employer] 11/20/2027 42-5026-0 62-02 / / [id number] Persona The Personalized Knee System Vivacit-E Highly Crosslinked Polyethylene Articular Surface Medial Congruent Implanted:Qty: 1 on 06/04/2018 by Duc Kimble MD at OR [facility] Right: Knee [employer] 11/19/2022 42-5221-0 07-12 / / [id number] Device Watchman Flx 24mm - [id number] Implanted:Qty: 1 on 10/06/2022 by Austin Penaloza [place] [place] [employer] : INTRV CARD [id number] 03/07/2025 [id number] 40 / / [id number] Device Watchman Flx 27mm - [id number] Implanted:Qty: 1 on 10/06/2022 by Austin Penaloza MD at [facility] [place] [employer] : INTRV CARD [id number] 08/07/2025 [id number] 70 / / [id number] documented as of this encounter Advance Directives [...] the patient have Health Care Power of Mainframe Applications Developer? No Care Teams Poultry Scientist Relationship Specialty Start Date End Date Nikunj Plascencia MD [address] [place] [address] PCP - General Family Medicine 10/31/19 documented as of this encounter
--- OUTSIDE RECORDS SUMMARY | 2023-07-29 04:02 | External Medical Summary | Summary of Care ---
Author Name Unknown Organization [facility] Address [address] [place] [address] Phone [phone] Care Team Providers Care Ambulatory Care Coordinator Name Role Phone Lambert Plascencia MD Primary Care Provider [phone] Reason for Visit * Reason Onset Date Comments Medication Refill 06/26/2023 Encounter Details Date Type Department Care Team (Late st Contact Info) Description 06/26/2023 Refill Family Practice [facility] 132 [facility] [place] [address] Lambert Plascencia MD 132 [facility] [place] [address] Allergies Active Allergy Reactions Criticality Noted Date Comments Egg Shells Nausea/vomiting Medium 06/16/2018 Other reaction(s): GI SYMPTOMS Egg Yolk High 11/29/2019 Other reaction(s): GI upset Ibuprofen Other (Please comment) Medium 07/30/2010 Stomach upset Morphine Edema face/lips/tongue High 08/28/2021 Other reaction(s): LEGS SWELL documented as of this encounter (statuses as of 06/27/2023) Medications Medication Sig Dispensed Refills Start Date [...] bedtime 0 Active Folic Acid 800 MCG TabletIndications:P rimary [...] for Itching. 30 g 5 05/09/2022 Active Oxybutynin Chloride ER 5 MG Oral Tablet Extended Release 24 Hour (Ditropan XL) Take 1 Tablet by mouth in the morning. 90 Tablet 3 05/26/2022 Active Additional Information Patient taking differently:5 mg OralHS, Informant: Patient, Reported on 04/03/2023 Saline Nasal [place] 0.65 % Nasal Solution (Morgan) Q6H 0 06/06/2022 Active Clobetasol Propionate 0.05 [...] before bedtime. 21 Tablet 0 12/14/2022 Active Pregabalin 150 MG Oral Capsule (Lyrica)Indications :Spinal stenosis of lumbar region without neurogenic claudication Take 1 Capsule by mouth in the morning and 1 Capsule before bedtime. 60 Capsule 11 01/03/2023 Active Lisinopril 10 MG Oral Tablet (Prinivil) [...] Hydrobromide 10 MG Oral Tablet (CeleXA) 0 Active Betamethasone Acetate Powder Use as directed. 0 Acti ve Atorvastatin Calcium 80 MG Oral Tablet (Lipitor) Take 1 Tablet by mouth in the morning. 90 Tablet 3 06/27/2023 Active Atorvastatin Calcium 80 MG Oral Tablet (Lipitor) TAKE 1 TABLET BY MOUTH EVERY DAY IN THE MORNING 90 Tablet 0 01/29/2023 Discontinu ed(Refill) Hospital, Clinic, or Other Facility Administered Medication Ordered Dose Route Frequency Start Date End Date Status atropine sulfate inj 0.4 mgIndications:Chest pain, unspecified type 0.4 mg IV PUSH PRN 01/29/2021 Active documented as of this encounter (statuses as of 06/27/2023) Active Problems Problem Noted Date Diagnosed Date Renal stone 03/21/2023 Presence of Watchman left atrial appendage closu re device 12/19/2022 PAF (paroxysmal atrial fibrillation) 08/17/2022 Overview: Added automatically from request for surgery [id number] Nasal septal perforation 06/13/2022 Overview: Per ENT [...] as of this encounter (statuses as of 06/27/2023) Resolved Problems Problem Noted Date Diagnosed Date [...] 140/90 12/12/201111/09 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 07/30/2018 Overview: [place] palsy Tinea 06/27/2011 07/30/2018 Mixed urge and stress incontinence 12/15/2008 10/08/2019 ADVANCE DIRECTIVE INFORMATION 06/17/2004 10/08/2019 documented as of this encounter (statuses as of 06/27/2023) Immunizations Name Administration Dates Next Due COVID-19 mRNA, LNP-s, No Pre serve, 2-Dose Series (Pipefish) 10/05/2020,09/14/2020 Covid-19, Mrna, Lnp-s, Pf, B ivalent, 30 Mcg, IM, 12 yrs and above (Pfizer) 05/26/2022 Pneumococcal Conjugate Vacc, 13 Valent (Prevnar) 05/30/2016 Pneumococcal Conjugate Vacci ne, 20-valent ([id number]) 04/03/2023 Seasonal Influenza Virus Vac cine, Unspecified Formulation 12/05/2019,02/27/2019,01/26/2018,11/09,11/10/2015,12/05/2014,10/17/2013 ,02/22/2013,11/09/2011,12/02/2010 Seasonal Influenza, PF, 6 M & above, IM , (FluLaval or Fluzone) 10/21/2021,11/26/2020,12/05/2019,02/27,01/26/2018,11/09/2016 Seasonal Influenza, Quadriva lent Hd (Fluzone Hd) 12/07/2022 Seasonal Influenza, Quadriva lent, No Preserve, IM 11/10/2015,12/05/2014 12/06/2015 Seasonal Influenza, Split, I IV3, With Preserve, Inj 10/17/2013,02/22/2013,11/09/2011,12/02 TDAP (age 10 and older)(Boostrix) 01/05/2022, documented as of this encounter Social History [...] encounter Miscellaneous Notes * Telephone Encounter - Troy Rice, [facility] - 06/27/2023 4:51 PM EDTSigned Prescriptions: Disp Refills Atorvastatin Calcium 80 MG Oral Tablet (Li*90 Tab*3 Sig: Take 1 Tablet by mouth in the morning. Authorizing Provider: LAMBERT PLASCENCIA Ordering User: TROY RICE * Telephone Encounter - Nayla Marie PHARM Tech - 06/26/2023 4:16 PM EDT Did you pend patient's preferred pharmacy and medication before forwarding?yes Pharmacy: [id number] [address] [facility] Pending Prescriptions: Disp Refills Atorvastatin Calcium 80 MG Oral Tablet (L*90 Tab*0 Last Visit: 12/19/2022 (in office), 03/27/2020 (telemedicine) Next Visit: 06/27/2023 If no future appointments scheduled, and last appointment is greater than a year ago, please schedule patient for a follow-up appointment Last date the medication was ordered: 01/29/2023 Is this request for a controlled substance?No Urine Drug Screen: Results for orders placed or performed in visit on 10/21/21 PAIN MANAGEMENT DRUG PANEL, URINE W/ INTERPRETATION Result Value Compliance Interpretation Based on the medication information provided and obtained from [facility]: The positive oxycodone screening result is CONSISTENT with recent oxycodone use. Confirmatory testing is available upon request. Amphetamines Screen, U Negative Benzodiazepines Screen, U Negative Cannabinoids Screen, U Negative Cocaine Metabolite Screen, U Negative Fentanyl Screen, U Negative Hydrocodone Screen, U Negative Methadone Metabolite Screen, U Negative Morphine/Codeine Screen, U Negative Oxycodone Screen, U Positive (A) Valid Interpretation Normal Creatinine, U 104 Narrative Cutoff Concentrations: Drug Level Amphetamines 500 ng/mL Benzodiazepines 100 ng/mL Cannabinoids 50 ng/mL Cocaine Metabolite 150 ng/mL Fentanyl 1 ng/mL Hydrocodone / Hydromorphone 300 ng/mL Methadone Metabolite 100 ng/mL Morphine / Codeine 300 ng/mL Oxycodone / Oxymorphone 100 ng/mL Screening results are presumptive and can only be used for medical purposes. Confirmatory testing is available upon request. *Note: Due to a large number of results and/or encounters for the requested time period, some results have not been displayed. A complete set of results can be found in Results Review. Patient Phone Numbers Labs: Lab Results Component Value Date/Time CREAT 1.5 (H) 06/17/2023 12:29 PM CREAT 1.3 (H) 01/07/2020 11:40 AM POTASSIUM 5.1 06/17/2023 12:29 PM POTASSIUM 4.9 01/07/2020 11:40 AM TSH 2.37 01/11/2021 03:52 PM TSH 2.99 12/06/2019 09:30 AM LDLCALC 47 04/28/2023 11:06 AM LDLCALC 33 12/06/2019 09:30 AM LDLDIRECT NOT APPLICABLE 12/06/2019 09:30 AM ALT 11 06/17/2023 12:29 PM ALT 9 (L) 12/06/2019 09:30 AM HGBA1C 5.3 06/20/2020 01:23 PM HGBA1C 5.1 2018 12:11 PM documented in this encounter Plan of Treatment Upcoming Encounters Date Type Department Care Team (Late st Contact Info) Description 07/03/2023 2:00 PM EDT Office Visit Nephrology, [facility] [address] [place] [address] Geovanni Linder MD [address] [place] [address] 07/05/2023 2:00 PM EDT Office Visit Cardiology [facility] [place] [address] [place] [address] Austin Penaloza MD [address] [place] [address] 07/13/2023 2:30 PM EDT [facility] [address] [place] [address] [facility] [address] [place] [address] 08/23/2023 2:00 PM EDT [facility] 132 [facility] [place] [address] Eveline Layne, DPM [address] [place] [address] 09/27/2023 8:30 AM EDT Appointment Radiology, [address] [address] 10/09/2023 1:10 PM EDT Nutrition Services Nutrition & Weight Management, [facility] 132 [place] [address] Mercedez Kim RDN 132 [place] [address] 12/01/2023 1:45 PM EDT Office Visit Dermatology [facility] [address] [place] [address] Cyril Borges MD [address] [place] [address] 12/04/2023 1:00 PM EDT Cardiac Studies Cardiac Studies, [facility] [address] [place] [address] 12/20/2023 2:30 PM EDT Imaging Radiology, [address] [address] 12/20/2023 3:20 PM EDT Office Visit Rheumatology [address] [address] Troy Yoder MD [address] [place] [address] 01/04/2024 11:30 AM EST Appointment Radiology, [address] [address] 01/04/2024 1:30 PM EST Office Visit Urology, [address] [address] Luis Manuel Sandy MD [address] [place] [address] 01/09/2024 1:20 PM EST Office Visit Family [facility] [address] [place] [address] Lambert Plascencia MD [address] [place] [address] Scheduled Procedures Name Priority Associated Diagnoses Date/Ti [...] D LEVEL ONCE IN A LIFETIME-USE SMARTSET# 53691 Completed 06/17/2023, 06/10/2022, 05/28/2021, Additional history exists [...] this encounter Medical Devices Implanted Type Area Locker Room Supervisor Device Identifier Shelf Expiration Date Model / Serial / Lot Kyphon Hv-R Bone Cement Implanted:Qty: 1 on 08/17/2016 by Michael Smith MD [place] [facility]: Spine Thoracic 03/19/2019 C01A / C01A / [id number] Cement Bone G 1119-140-01 - [id number] Implanted:Qty: 1 on 06/04/2018 by Duc Kimble MD at OR [facility] Right: Knee [employer] 11/19/2020-1119-1 [id number] Cement Bone Lv G 1119-140-01 - [id number] Implanted:Qty: 1 on 06/04/2018 by Duc Kimble MD at OR [facility] Right: Knee [employer] 06/19/2020-1119-1 40 [id number] Persona The Personlized Knee System Vivacit-E Highly Crosslinked Polyethylene All-Poly Patella Cemented Implanted:Qty: 1 on 06/04/2018 by Duc Kimble MD at OR [facility] Right: Knee [employer] 06/19/2022 42-5402-0 00-35 / / [id number] Tibia Stem 5 Deg Rt Size F - [id number] Implanted:Qty: 1 on 06/04/2018 by Duc Kimble MD at OR [facility] Right: Knee [employer] 10/21/2027 42-5320-0 75-02 / / [id number] Persona The Personalized Knee System Femur Cemented Cr Standard Implanted:Qty: 1 on 06/04/2018 by Duc Kimble MD at OR [facility] Right: Knee [employer] 11/20/2027 42-5026-0 62-02 / / [id number] Persona The Personalized Knee System Vivacit-E Highly Crosslinked Polyethylene Articular Surface Medial Congruent Implanted:Qty: 1 on 06/04/2018 by Duc Kimble MD at OR [facility] Right: Knee [employer] 11/19/2022 42-5221-0 07-12 / / [id number] Device Watchman Flx 24mm - [id number] Implanted:Qty: 1 on 10/06/2022 by Austin Penaloza [place] [facility] [place] [employer] : INTRV CARD [id number] 03/07/2025 [id number] 40 / / [id number] Device Watchman Flx 27mm - [id number] Implanted:Qty: 1 on 10/06/2022 by Austin Penaloza MD at [facility] [place] [employer] : INTRV CARD [id number] 08/07/2025 [id number] / / [id number] documented as of this encounter Advance Directives [...] the patient have Health Care Power of Academic Support Director? No Care Teams Ambulatory Care Coordinator Relationship Specialty Start Date End Date Lambert Plascencia MD [address] [place] [address] PCP - General Family Medicine 10/31/19 documented as of this encounter
--- OUTSIDE RECORDS SUMMARY | 2023-07-29 04:02 | External Medical Summary | Summary of Care ---
Author Name Unknown Organization [facility] Address [address] [place] [address] Phone [phone] Care Team Providers Care Traveling Representative Name Role Phone Nikunj Plascencia MD Primary Care Provider [phone] Encounter Details Date Type Department Care Team (Late st Contact Info) Description 06/30/2023 Documentation CRS GM, Cardiac Recovery Suite, [facility] [address] [place] [address] Mireille Yadav, RN Allergies Active Allergy Reactions Criticality Noted Date Comments Egg Shells Nausea/vomiting Medium 06/16/2018 Other reaction(s): GI SYMPTOMS Egg Yolk High 11/29/2019 Other reaction(s): GI upset Ibuprofen Other (Please comment) Medium 07/30/2010 Stomach upset Morphine Edema face/lips/tongue High 08/28/2021 Other reaction(s): LEGS SWELL documented as of this encounter (statuses as of 06/30/2023) Medications Medication Sig Dispensed Refills Start Date [...] 30 g 5 05/09/2022 Active Saline Nasal [place] 0.65 % Nasal Solution ([place]) Q6H 0 06/06/2022 Active Clobetasol Propionate 0.05 [...] as of this encounter (statuses as of 06/30/2023) Active Problems Problem Noted Date Diagnosed Date Renal stone 03/21/2023 Presence of Watchman left atrial appendage closu re device 12/19/2022 PAF (paroxysmal atrial fibrillation) 08/17/2022 Overview: Added automatically from request for surgery [id number] Nasal septal perforation 06/13/2022 Overview: Per ENT [...] as of this encounter (statuses as of 06/30/2023) Resolved Problems Problem Noted Date Diagnosed Date [...] 140/90 12/12/201111/09 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 07/30/2018 Overview: [place] palsy Tinea 06/27/2011 07/30/2018 Mixed urge and stress incontinence 12/15/2008 10/08/2019 ADVANCE DIRECTIVE INFORMATION 06/17/2004 10/08/2019 documented as of this encounter (statuses as of 06/30/2023) Immunizations Name Administration Dates Next Due COVID-19 mRNA, LNP-s, No Pre serve, 2-Dose Series ([employer]) 10/05/2020,09/14/2020 Covid-19, Mrna, Lnp-s, Pf, B ivalent, 30 Mcg, IM, 12 yrs and above (Pfizer) 05/26/2022 Pneumococcal Conjugate Vacc, 13 Valent (Prevnar) 05/30/2016 Pneumococcal Conjugate Vacci ne, 20-valent ([id number]) 04/03/2023 Seasonal Influenza Virus Vac cine, Unspecified [...] as of this encounter Progress Notes * Mireille Yadav, RN - 06/30/2023 12:37 PM EDT Images from the original note were not included. Risk Factors: Severe , CKD (1.5), pAfib s/p Watchman 98/23, HTN, family history of premature CAD,tobacco use, remote hx SVT W[facility] L[facility]pez Interventional Valve Nurse Navigator documented in this encounter Plan of Treatment Upcoming Encounters Date Type Department Care Team (Late st Contact Info) Description 07/03/2023 2:00 PM EDT Office Visit Nephrology, [address] [place] [address] Geovanni Linder MD [address] [place] [address] 07/05/2023 2:00 PM EDT Office Visit Cardiology [facility] [place] [address] [place] [address] Austin Penaloza MD [address] [place] [address] 07/13/2023 2:30 PM EDT Office Visit Pharmacy, [facility] [address] [place] [address] [facility] [address] [place] [address] 08/23/2023 2:00 PM EDT Office Visit Podiatry [facility] [address] [place] [address] Eveline Layne, [facility] [address] [place] [address] 09/27/2023 8:30 AM EDT Appointment Radiology, [place] [address] [place] [address] 10/09/2023 1:10 PM EDT Nutrition Services Nutrition & Weight Management, [facility] [address] [place] [address] Mercedez Kim RDN [address] [place] [address] 12/01/2023 1:45 PM EDT Office Visit Dermatology [facility][1] [address] [place] [address] Cyril Borges MD [address] [place] [address] 12/04/2023 1:00 PM EDT Cardiac Studies Cardiac Studies, [facility] 132 [facility] [place] [address] 12/20/2023 2:30 PM EDT Imaging Radiology, [address] [place] [address] 12/20/2023 3:20 PM EDT Office Visit Rheumatology [address] [place] [address] John Yoder MD [address] [place] [address] [place] [address] 01/04/2024 11:30 AM EST Appointment Radiology, [address] [address] 01/04/2024 1:30 PM EST Office Visit Urology, [address] [address] Luis Manuel Sandy MD [facility] [address] [place], [place] [address] 01/09/2024 1:20 PM EST Office Visit Family Practice [facility] [address] [place] [address] Nikunj Plascencia MD 132 [facility] [place] [address] Scheduled Procedures Name Priority Associated Diagnoses Date/Ti [...] D LEVEL ONCE IN A LIFETIME-USE SMARTSET# 85717 Completed 06/17/2023, 06/10/2022, 05/28/2021, Additional history exists [...] this encounter Medical Devices Implanted Type Area Hip Hop Artist Device Identifier Shelf Expiration Date Model / Serial / Lot Kyphon Hv-R Bone Cement Implanted:Qty: 1 on 08/17/2016 by Michael Smith MD at [place] [facility] N/A: Spine Thoracic 03/19/2019 C01A / C01A / [id number] Cement Bone Lv G 1119-140-01 - [id number] Implanted:Qty: 1 on 06/04/2018 by Duc Kimble MD at OR [facility] Right: Knee [employer] 11/19/2020 40- / / [id number] Cement Bone Lv G 1119-140-01 - [id number] Implanted:Qty: 1 on 06/04/2018 by Duc Kimble MD at OR [facility] Right: Knee [employer] 06/19/2020 40- / / [id number] Persona The Personlized Knee System Vivacit-E Highly Crosslinked Polyethylene All-Poly Patella Cemented Implanted:Qty: 1 on 06/04/2018 by Duc Kimble MD at OR [facility] Right: Knee [employer] 06/19/2022 42-5402-0 00-35 / / [id number] Tibia Stem 5 Deg Rt Size F - [id number] Implanted:Qty: 1 on 06/04/2018 by Duc Kimble MD at OR [facility] Right: Knee [employer] 10/21/2027 42-5320-0 75-02 / / [id number] Persona The Personalized Knee System Femur Cemented Cr Standard Implanted:Qty: 1 on 06/04/2018 by Duc Kimble MD at OR [facility] Right: Knee [employer] 11/20/2027 42-5026-0 62-02 / / [id number] Persona The Personalized Knee System Vivacit-E Highly Crosslinked Polyethylene Articular Surface Medial Congruent Implanted:Qty: 1 on 06/04/2018 by Duc Kimble MD at OR [facility] Right: Knee [employer] 11/19/2022 42-5221-0 07-12 / / [id number] Device Watchman Flx 24mm - [id number] Implanted:Qty: 1 on 10/06/2022 by Austin Penaloza MD at [facility] [place] [employer] : INTRV CARD [id number] 03/07/2025 [id number] 40 / / [id number] Device Watchman Flx 27mm - [id number] Implanted:Qty: 1 on 10/06/2022 by Austin Penaloza MD at [facility] [employer] : INTRV CARD [id number] 08/07/2025 [id number] 70 / / [id number] documented as of this encounter Advance Directives [...] the patient have Health Care Power of Operation Research Analyst? No Care Teams Traveling Representative Relationship Specialty Start Date End Date Nikunj Plascencia MD [address] [place] [address] PCP - General Family Medicine 10/31/19 documented as of this encounter
--- OUTSIDE RECORDS SUMMARY | 2023-07-29 04:02 | External Medical Summary | Summary of Care ---
Author Name Unknown Organization [facility] Address [address] [place] [address] Phone [phone] Care Team Providers Care Air Conditioning Service Technician Name Role Phone Nikunj Plascencia MD Primary Care Provider [phone] Reason for Referral * Evaluate & Treat - Unlimited Visits (Within 10 days (routine)) - Authorized Specialty Diagnoses / Procedures Referred By Contact Referred To Contact GI NUTRITION/IM / Gastroenterology Diagnoses Morbid obesity (HCC) Nikunj Plascencia MD [address] [place] [address] Referral ID Status Reason Start Date Expiration Date Visits Requested Visits Authorized [id number] Authorized Specialty Services Required 06/27/2023 999 999 Question Answer Referral Priority Within 10 days (routine) Where should this appointment be scheduled? [facility] For what condition is the patient being seen? Weight Loss Medication Reason for Visit * Reason Onset Date Comments Follow Up Pt here for 6 mo nth follow up Immunizations 06/27/2023 Shingrix Encounter Details Date Type Department Care Team (Late st Contact Info) Description 06/27/2023 1:20 PM EDT Office Visit Family Practice [facility] [address] [place] [address] Nikunj Plascencia MD [address] [place] [id number] PAF (paroxysmal atrial fibrillation) (HCC)*; Moderate aortic stenosis; HTN, goal below 130/80; Bicuspid aortic valve; Morbid obesity ([facility]); Irritable bowel syndrome with both constipation and diarrhea; Stage 3b chronic kidney disease (CKD) ([facility]); Migraine with aura and without status migrainosus, not intractable; Spinal stenosis of lumbar region without neurogenic claudication; Depression with anxiety; Chronic insomnia; Dyslipidemia; Nasal septal perforation; Need for vaccination for zoster Allergies Active Allergy Reactions Criticality Noted Date [...] Informant: Patient, Reported on 04/03/2023 Saline Nasal [place] 0.65 % Nasal Solution (Ventura) Q6H 0 06/06/2022 Active Clobetasol Propionate 0.05 [...] a week. 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 07/30/2018 Overview: [place] palsy Tinea 06/27/2011 07/30/2018 Mixed urge and stress incontinence 12/15/2008 10/08/2019 ADVANCE DIRECTIVE INFORMATION 06/17/2004 10/08/2019 documented as of this encounter (statuses as of 06/27/2023) Immunizations Name Administration Dates Next Due COVID-19 mRNA, LNP-s, No Pre serve, 2-Dose Series ([employer]) 10/05/2020,09/14/2020 Covid-19, Mrna, Lnp-s, Pf, B ivalent, 30 Mcg, IM, 12 yrs and above (Glycobia) 05/26/2022 Pneumococcal Conjugate Vacc, 13 Valent (Prevnar) 05/30/2016 Pneumococcal Conjugate Vacci ne, 20-valent ([id number]) 04/03/2023 Seasonal Influenza Virus Vac cine, Unspecified [...] Sign Reading Time Taken Comments Blood Pressure 104/52 06/27/2023 1:07 PM EDT Pulse 64 06/27/2023 1:07 PM EDT Temperature 36 C (96.8 F) 06/27/2023 1:07 PM EDT Respiratory Rate 18 06/27/2023 1:07 PM EDT Oxygen Saturation - - Inhaled Oxygen Concentration - - Weight 131.1 kg (289 lb) 06/27/2023 1:07 PM EDT Height 165.1 cm (5' 5") 06/27/2023 1:07 PM EDT Body Mass Index 48.09 06/27/2023 1:07 PM EDT documented in this [...] No 06/04/2018 documented as of this encounter Patient Instructions * Patient Instructions* Tracee Ziegler LPN - 06/27/2023 1:10 PM EDT ~~PATIENT INSTRUCTIONS FOR SHINGRIX VACCINE~~ Possible side effects of Shingrix vaccine, (shingles), are usually mild and can include: 1. Soreness or redness at injection site 2. Low grade fever 3. Body aches You may use a fever / pain reducing medication as needed for these symptoms. LET YOUR DOCTOR KNOW IMMEDIATELY IF YOU HAVE DIFFICULTY BREATHING OR SWALLOWING, EXPERIENCE ITCHINGOF FEET OR HANDS, HAVE SWELLING OF EYES, FACE OR INSIDE OF NOSE. documented in this encounter Progress Notes * Nikunj Plascencia MD - 06/27/2023 5:11 PM EDT SUBJECTIVE: Caroline Paulino is a 68 year old female. Chief Complaint Patient presents with Follow Up Pt here for 6 month follow up Immunizations Shingrix HPI: Caroline is a medically complex 68 year old female with numerous comorbidities here today for a routine follow up. She follows with many specialists as well. Her biggest health issue is really her heart, as she has moderate aortic stenosis and will eventually require valve replacement. She has a watchman device for her a-fib. She is morbidly obese and really would benefit from a GLP-1 agonist. We did discuss this today. I reviewed all of her medications and labs. I reviewed all of the specialist notes and answered any questions she had as best as I could today. Patient Active Problem List Diagnosis Code Irritable bowel syndrome with both constipation and diarrhea K58.2 HTN, goal below 130/80 I10 Stage 3b chronic kidney disease (CKD) ([facility]) N18.32 Morbid obesity ([facility]) E66.01 Spinal stenosis of lumbar region without neurogenic claudication M48.061 Gastroesophageal reflux disease without esophagitis K21.9 Senile osteoporosis M81.0 Bicuspid aortic valve Q23.1 Moderate aortic stenosis I35.0 Dyslipidemia E78.5 Chronic insomnia F51.04 Paroxysmal atrial flutter ([facility]) I48.92 Depression with anxiety F41.8 Controlled substance agreement terminated Z91.148 Migraine with aura and without status migrainosus, not intractable G43.109 Nasal septal perforation J34.89 PAF (paroxysmal atrial fibrillation) ([facility]) I48.0 Presence of Watchman left atrial appendage closure device Z95.818 Renal stone N20.0 Current Outpatient Medications Medication Sig Dispense Refill [...] as needed for Itching. 30 g 5 Oxybutynin Chloride ER 5 MG Oral Tablet Extended Release 24 Hour (Ditropan XL) Take 1 Tablet by mouth in the morning. (Patient taking differently: Take 1 Tablet by mouth at bedtime.) 90 Tablet 3 Saline Nasal [place] 0.65 % Nasal Solution (Ventura) Q6H Clobetasol Propionate 0.05 % External Ointment [...] 1 Tablet before bedtime. 21 Tablet 0 Pregabalin 150 MG Oral Capsule (Lyrica) Take 1 Capsule by mouth in the morning and 1 Capsule beforebedtime. 60 Capsule 11 Lisinopril 10 MG Oral Tablet (Prinivil) TAKE [...] Cream Clopidogrel Bisulfate Powder Use as directed. Citalopram Hydrobromide 10 MG Oral Tablet (CeleXA) Betamethasone Acetate Powder Use as directed. Zoster Vac Recomb Adjuvanted 50 MCG/0.5ML Intramuscular Suspension Reconstituted (Shingrix) Inject 0.5 mL into a large muscle now and repeat dose in 60 to 180 days 1 Each 1 Wegovy 0.25 MG/0.5ML Subcutaneous Solution Auto-injector (Semaglutide-Weight Management) Inject 0.25 mg under the skin once a week. 2 mL 0 Atorvastatin Calcium 80 MG Oral Tablet (Lipitor) Take 1 Tablet by mouth in the morning. 90 Tablet 3 Current Facility-Administered Medications Medication Dose Route Frequency Provider Last Rate Last Admin atropine sulfate inj 0.4 mg 0.4 mg IV Push PRN Trip Nolasco, Allergy: Review of patient's allergies indicates: Allergen Reactions Egg Yolk Other reaction(s): GI upset Morphine Edema face/lips/tongue Other reaction(s): LEGS SWELL Egg Shells Nausea/vomiting Other reaction(s): GI SYMPTOMS Ibuprofen Other (Please comment) Stomach upset OBJECTIVE: BP 104/52 | Pulse 64 | Temp 36 C (96.8 F) (Tympanic) | Resp 18 | Ht 1.651 m (5' 5") | Wt 131.1 kg (289 lb) | BMI 48.09 kg/m | BSA 2.45 m Gen: morbidly obese, uses cane to help with ambulation Lungs: ctab Heart: regular; 2/6 systolic ejection murmur Skin: no open wounds or sores Ext: no edema Neuro: grossly in tact ASSESSMENT AND PLAN: (I48.0) PAF (paroxysmal atrial fibrillation) ([facility]) (primary encounter diagnosis) Plan: has watchman; rate controlled (I35.0) Moderate aortic stenosis Plan: follows up with cardiology in the fall; asymptomatic (I10) HTN, goal below 130/80 Plan: @ goal (Q23.1) Bicuspid aortic valve Plan: noted (E66.01) Morbid obesity ([facility]) Plan: GI NUTRITION REFERRAL OP, Wegovy 0.25 MG/0.5ML Subcutaneous Solution Auto-injector (Semaglutide-Weight Management) (K58.2) Irritable bowel syndrome with both constipation and diarrhea Plan: stable (N18.32) Stage 3b chronic kidney disease (CKD) ([facility]) Plan: stable (G43.109) Migraine with aura and without status migrainosus, not intractable Plan: stable (M48.061) Spinal stenosis of lumbar region without neurogenic claudication Plan: stable (F41.8) Depression with anxiety Plan: stable (F51.04) Chronic insomnia Plan: improved (E78.5) Dyslipidemia Plan: stable (J34.89) Nasal septal perforation Plan: surgery not an option per ENT (Z23) Need for vaccination for zoster Plan: Zoster Vac Recomb Adjuvanted 50 MCG/0.5ML Intramuscular Suspension Reconstituted (Shingrix) Follow up in 6 month(s). No other complaints were offered at this time. Nikunj Plascencia MD documented in this encounter Nursing Notes * Tracee Ziegler LPN - 06/27/2023 1:07 PM EDT The patient has been properly identified by confirmation of name and date of . Chief Complaint Patient presents with Follow Up Pt here for 6 month follow up documented in this encounter Plan of Treatment Upcoming Encounters Date Type Department Care Team (Late st Contact Info) Description 07/03/2023 2:00 PM EDT Office Visit Nephrology, [facility] [address] [place] [address] Geovanni Linder MD [address] [place] [address] 07/05/2023 2:00 PM EDT Office Visit Cardiology [facility], [address] [address] Austin Penaloza MD [address] [place], [place] [address] 07/13/2023 2:30 PM EDT Office Visit Pharmacy, [facility] 132 [place] [address] [facility] [place] [address] 08/23/2023 2:00 PM EDT Office Visit Podiatry [facility] 132 [place] [address] Eveline Layne, [address] [address] 09/27/2023 8:30 AM EDT Appointment Radiology, [address] [address] 10/09/2023 1:10 PM EDT Nutrition Services Nutrition & Weight Management, [facility] 132 [facility] [place] [address] Mercedez Kim RDN [address] [place] [address] 12/01/2023 1:45 PM EDT Office Visit Dermatology [facility] [address] [place] [address] Cyril Borges MD [address] [place] [address] 12/04/2023 1:00 PM EDT Cardiac Studies Cardiac Studies, [facility] 132 [facility] [place] [address] 12/20/2023 2:30 PM EDT Imaging Radiology, [address] [place] [address] 12/20/2023 3:20 PM EDT Office Visit Rheumatology [address] [place] [address] John Yoder MD [address] [place] [address] [place] [address] 01/04/2024 11:30 AM EST Appointment Radiology, [place] [address] [place] [address] 01/04/2024 1:30 PM EST Office Visit Urology, [place] [address] [place] [address] Luis Manuel Sandy MD [address] [place] [address] 01/09/2024 1:20 PM EST Office Visit Family Practice [facility] 132 [facility] [place] [address] Nikunj Plascencia MD 132 [facility] [place] [address] Scheduled Procedures Name Priority Associated Diagnoses Date/Ti me ROBOTIC ARTHROPLASTY KNEE TOTAL Knee osteoarthritis COLONOSCOPY FLEXIBLE PROXIMA L DIAGNOSTIC Recall History of colonic polyps Scheduled Referrals Name Type Priority Associated Diagnoses Orde r Schedule GI NUTRITION REFERRAL OP Referral Within 10 days (routine) Morbid obesity (HCC) Ordered: 06/27/2023 Health Maintenance Due Date Last Done Comments Cologuard 2002 Sigmoidoscopy 2002 HOME BP CUFF VALIDATION YEARLY 04/02/2020 04/02/2019 Fecal Occult Blood Test 03/10/2022 03/10/19 22, 03/10/2021, 03/10/2021, Additional history exists COVID-19 Vaccine [...] D LEVEL ONCE IN A LIFETIME-USE SMARTSET# 95784 Completed 06/17/2023, 06/10/2022, 05/28/2021, Additional history exists [...] this encounter Medical Devices Implanted Type Area Needle Setter Device Identifier Shelf Expiration Date Model / Serial / Lot Kyphon Hv-R Bone Cement Implanted:Qty: 1 on 08/17/2016 by Michael Smith MD at OR [facility] N/A: Spine Thoracic 03/19/2019 C01A / C01A / [id number] Cement Bone Lv G 1119-140-01 - [id number] Implanted:Qty: 1 on 06/04/2018 by Duc Kimble MD at OR [facility] Right: Knee [employer] 11/19/2020 00-1119-1 40-01 / / [id number] Cement Bone Lv G 1119-140-01 - [id number] Implanted:Qty: 1 on 06/04/2018 by Duc Kimble MD at OR [facility] Right: Knee [employer] 06/19/2020-1119-1 40-01 / / [id number] Persona The Personlized Knee System Vivacit-E Highly Crosslinked Polyethylene All-Poly Patella Cemented Implanted:Qty: 1 on 06/04/2018 by Duc Kimlbe MD at OR [facility] Right: Knee [employer] 06/19/2022 42-5402-0 00-35 / / [id number] Tibia Stem 5 Deg Rt Size F - [id number] Implanted:Qty: 1 on 06/04/2018 by Duc Kimble MD at OR [facility] Right: Knee [employer] 10/21/2027 42-5320-0 75-02 / / [id number] Persona The Personalized Knee System Femur Cemented Cr Standard Implanted:Qty: 1 on 06/04/2018 by Duc Kimble MD at OR [facility] Right: Knee [employer] 11/20/2027 42-5026-0 62- / [id number] Persona The Personalized Knee System Vivacit-E Highly Crosslinked Polyethylene Articular Surface Medial Congruent Implanted:Qty: 1 on 06/04/2018 by Duc Kimble MD at OR [facility] Right: Knee [employer] 11/19/2022 42-5221-0 07-12 [id number] Device Watchman Flx 24mm - [id number] Implanted:Qty: 1 on 10/06/2022 by Austin Penaloza MD at [facility] [employer] : INTRV CARD [id number] 03/07/2025 [id number] 40 / / [id number] Device Watchman Flx 27mm - [id number] Implanted:Qty: 1 on 10/06/2022 by Austin Penaloza MD at [facility] [employer] : INTRV CARD [id number] 08/07/2025 [id number] 70 / / [id number] documented as of this encounter Visit Diagnoses Diagnosis PAF (paroxysmal atrial fibrillation) (HCC)- Primary Atrial fibrillation Moderate aortic stenosis Aortic valve disorders HTN, goal below 130/80 Unspecified essential hypertension Bicuspid aortic valve Congenital insufficiency of aortic valve Morbid obesity (HCC) Morbid obesity Irritable bowel syndrome with both constipation and diarrhea Stage 3b chronic kidney disease (CKD) (HCC) Migraine with aura and without status migrainosus, not intractable Migraine with aura, without mention of intractable migraine without mention of status migrainosus Spinal stenosis of lumbar region without neurogenic claudication Spinal stenosis, lumbar region, without neurogenic claudication Depression with anxiety Dysthymic disorder Chronic insomnia Insomnia, unspecified Dyslipidemia Other and unspecified hyperlipidemia Nasal septal perforation Other diseases of nasal cavity and sinuses Need for vaccination for zoster Need for prophylactic vaccination and inoculation against other viral diseases documented in this encounter Advance Directives Latest [...] the patient have Health Care Power of Baseball Player? No Care Teams Air Conditioning Service Technician Relationship Specialty Start Date End Date Nikunj Plascencia MD [address] [place] [address] PCP - General Family Medicine 10/31/19 documented as of this encounter
--- OUTSIDE RECORDS SUMMARY | 2023-07-29 04:02 | External Medical Summary | Summary of Care ---
Author Name Unknown Organization [facility] Address [address] [place] [address] Phone [phone] Care Team Providers Care Manufacturing Helper Name Role Phone Nikunj Plascencia MD Primary Care Provider [phone] Reason for Visit * Reason Onset Date Comments Medication Refill 06/26/2023 Encounter Details Date Type Department Care Team (Late st Contact Info) Description 06/26/2023 Refill Urology, [facility] [address] [place] [address] Segundo Sandy MD [address] [place] [address] Dysuria* Allergies Active Allergy Reactions Criticality Noted Date Comments Egg Shells Nausea/vomiting Medium 06/16/2018 Other reaction(s): GI SYMPTOMS Egg Yolk High 11/29/2019 Other reaction(s): GI upset Ibuprofen Other (Please comment) Medium 07/30/2010 Stomach upset Morphine Edema face/lips/tongue High 08/28/2021 Other reaction(s): LEGS SWELL documented as of this encounter (statuses as of 06/28/2023) Medications Medication Sig Dispensed Refills Start Date End Date Status OMEGA 3-6-9 FATTY ACIDS PO CAPS once daily 0 Active B-12 1000 MCG PO TBCR Take by mouth 1 Tablet daily . 0 Active VITAMIN D 1000 UNITS PO CAPS Take 1 Capsule by mouth in the morning. 60 Cap 0 3 Active COLACE 100 MG PO CAPS 1 am & 1 at bedtime 0 Active Folic Acid 800 MCG TabletIndications: Primary osteoarthritis of right knee Take 1 Tab by mouth daily. 30 Tab 4 9 Active vitamin c (ASCORBIC ACID) 250 MG TabletIndications: Primary osteoarthritis of right knee Take 1 Tab by mouth daily. 30 Tab 3 9 Active busPIRone HCl 10 MG Oral Tablet (Buspar) Take 1 Tablet by mouth in the morning and 1 Tablet before bedtime. 0 1 Active Nitroglycerin 0.4 MG Sublingual Tablet Sublingual (Nitrostat) Place 1 Tablet under the tongue every 5 minutes as needed for Pain, Chest. Up to 3 in 15 minutes. 25 Tablet 11 2 Active Calcipotriene 0.005 % External Cream (Dovonex) Apply 2x daily to rash on face/trunk/arms until resolved, then when flaring 100 g 2 2 Active Betamethasone Dipropionate 0.05 % External OintmentIndication s:Rash and nonspecific skin eruption Apply 2x daily to blisters and rash on face/trunk (back)/arms/leg s until resolved, then when flaring 100 g 0 2 Active diphenhydrAMINE HCl 25 MG Oral Tablet Take 1 Tablet by mouth in the morning. 0 Active Clotrimazole 1 % External Cream (Lotrimin) Apply topically to affected area as needed for Itching. 30 g 5 3 Active Saline Nasal [place] 0.65 % Nasal Solution (Clare) Q6H 0 3 Active Clobetasol Propionate 0.05 % External Ointment (Temovate) Apply thin film to affected area at body twice daily as needed for up to 2 weeks at a time. Not for use at face, armpits, groin. 60 g 2 3 Active Aspirin 81 MG Oral Tablet Chewable Take 1 Tablet by mouth in the morning. Do not start before October 07, 2022. 34 Tablet 11 3 Active valACYclovir HCl 1 GM Oral Tablet (Valtrex) Take 1 Tablet by mouth in the morning and 1 Tablet at noon and 1 Tablet before bedtime. 21 Tablet 0 3 Active Lisinopril 10 MG Oral Tablet (Prinivil) TAKE 1 TABLET BY MOUTH EVERY DAY 90 Tablet 3 12/08/202 3 Active Additional Information Patient taking differently: 10 mg Oral HS, Informant: Patient, Reported on 04/03/2023 Metoprolol Succinate ER 50 MG Oral Tablet Extended Release 24 Hour (toPROL XL)Indications:Ess ential hypertension with goal blood pressure less than 140/90 TAKE 1/2 TABLET EVERY MORNING AND EVENING 90 Tablet 3 3 Active Dupixent 300 MG/2ML Subcutaneous Solution Pen-injector (Dupilumab) Inject one pen under the skin every 2 weeks. 4 mL 4 3 Active Acitretin 10 MG Oral Capsule Take 1 capsule daily with breakfast. 90 Capsule 1 3 Active cycloSPORINE 0.05 % Ophthalmic Emulsion (Restasis) Instill 1 drop in each eye every 12 hours. 5.5 mL 5 3 Active Doxepin HCl 25 MG Oral Capsule (SINEquan) Take 1 Capsule by mouth at bedtime. 0 4 Active Tamsulosin HCl 0.4 MG Oral Capsule (Flomax) Take 1 Capsule by mouth in the morning. 90 Capsule 3 4 Active Memantine HCl 5 MG Oral Tablet (Namenda) TAKE 1 TABLET DAILY FOR 1 WEEK AND THEN 1 TABLET TWICE DAILY 180 Tablet 3 4 Active Phenazopyridine HCl 200 MG Oral Tablet (Pyridium) Take 1 Tablet by mouth in the morning and 1 Tablet at noon and 1 Tablet before bedtime. After meals.. 9 Tablet 0 4 Active DULoxetine HCl 60 MG Oral Capsule Delayed Release Particles (Cymbalta) Take 2 Capsules by mouth in the morning. 60 Capsule 5 4 Active Tacrolimus 0.1 % External Ointment Apply thin film to affected areas at face twice daily as needed. 60 g 2 4 Active SUMAtriptan Succinate 25 MG Oral Tablet (Imitrex) Take 2 tablets at onset of migraine and one tablet every 2 hours as needed, not more than 5 tablets in 24 hours 16 Tablet 10 4 Active traZODone HCl 100 MG Oral Tablet (Desyrel) 0 Active Ketoconazole 2 % External Cream 0 Active Hydrocortisone 2.5 % External Cream 0 Active Clopidogrel Bisulfate Powder Use as directed. 0 Active Citalopram Hydrobromide 10 MG Oral Tablet (CeleXA) 0 Active Betamethasone Acetate Powder Use as directed. 0 Active oxyBUTYnin Chloride ER 5 MG Oral Tablet Extended Release 24 Hour (Ditropan XL)Indications:Dys uria Take 1 Tablet by mouth in the morning. 90 Tablet 3 4 Active Oxybutynin Chloride ER 5 MG Oral Tablet Extended Release 24 Hour (Ditropan XL) Take 1 Tablet by mouth in the morning. 90 Tablet 3 3 024 Discontinued(Re fill) Pregabalin 150 MG Oral Capsule (Lyrica)Indication s:Spinal stenosis of lumbar region without neurogenic claudication Take 1 Capsule by mouth in the morning and 1 Capsule before bedtime. 60 Capsule 11 3 024 Discontinued Atorvastatin Calcium 80 MG Oral Tablet (Lipitor) TAKE 1 TABLET BY MOUTH EVERY DAY IN THE MORNING 90 Tablet 0 3 024 Discontinued(Re fill) Hospital, Clinic, or Other Facility Administered Medication Ordered Dose Route Frequency Start Date End Date Status atropine sulfate inj 0.4 mgIndications:Chest pain, unspecified type 0.4 mg IV PUSH PRN 01/29/2021 Active documented as of this encounter (statuses as of 06/28/2023) Active Problems Problem Noted Date Diagnosed Date Renal stone 03/21/2023 Presence of Watchman left atrial appendage closu re device 12/19/2022 PAF (paroxysmal atrial fibrillation) 08/17/2022 Overview: Added automatically from request for surgery [id number] Nasal septal perforation 06/13/2022 Overview: Per ENT [...] as of this encounter (statuses as of 06/28/2023) Resolved Problems Problem Noted Date Diagnosed Date [...] 12/12/201111/09 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 07/30/2018 Overview: Luba huddleston Tinea 06/27/2011 07/30/2018 Mixed urge and stress incontinence 12/15/2008 10/08/2019 ADVANCE DIRECTIVE INFORMATION 06/17/2004 10/08/2019 documented as of this encounter (statuses as of 06/28/2023) Immunizations Name Administration Dates Next Due COVID-19 mRNA, LNP-s, No Pre serve, 2-Dose Series (Proofpoint) 10/05/2020,09/14/2020 Covid-19, Mrna, Lnp-s, Pf, B ivalent, 30 Mcg, IM, 12 yrs and above (Pfizer) 05/26/2022 Pneumococcal Conjugate Vacc, 13 Valent (Prevnar) 05/30/2016 Pneumococcal Conjugate Vacci ne, 20-valent ([id number]) 04/03/2023 Seasonal Influenza Virus Vac cine, Unspecified [...] encounter Miscellaneous Notes * Telephone Encounter - Segundo Sandy MD - 06/28/2023 6:13 PM EDTSigned Prescriptions: Disp Refills oxyBUTYnin Chloride ER 5 MG Oral Tablet Ex*90 Tab*3 Sig: Take 1 Tablet by mouth in the morning. Authorizing Provider: SEGUNDO SANDY * Telephone Encounter - Cynthia Wolf RN - 06/27/2023 10:28 AM EDTPending Prescriptions: Disp Refills oxyBUTYnin Chloride ER 5 MG Oral Tablet Ex*90 Tab*3 Sig: Take 1 Tablet by mouth in the morning. * Telephone Encounter - aFviola Tejeda CPhT - 06/26/2023 4:13 PM EDT Patient is up to date for office visits. Pending Prescriptions: Disp Refills oxyBUTYnin Chloride ER 5 MG Oral Tablet E*90 Tab*3 Sig: Take 1 Tablet by mouth in the morning. Last Visit: 03/21/2023 (in office), Visit date not found (telemedicine) Next Visit: 01/04/2024 If no future appointments scheduled, and last appointment is greater than a year ago, please schedule patient for a follow-up appointment Last date the medication was ordered: 05/26/22 Pharmacy: [id number] Is this request for a controlled substance?No it is not controlled. Urine Drug Screen: Results for orders placed or performed in visit on 10/21/21 PAIN MANAGEMENT DRUG PANEL, URINE W/ INTERPRETATION Result Value Compliance Interpretation Based on the medication information provided and obtained from [facility]: The positive oxycodone screening result is CONSISTENT [...] EDT Office Visit NephrologyJason [address] [place] [address] Geovanni Linder MD [address] [place] [address] 07/05/2023 2:00 PM EDT Office Visit [facility] [address], [place] [id number] Austin Penaloza MD [address] [facility] [address] 07/13/2023 2:30 PM EDT Office Visit Pharmacy, [facility] [address] [facility] [place] [address] [facility] [address] [place] [address] 08/23/2023 2:00 PM EDT Office Visit Podiatry [facility] [place] [address] Eveline Layne, [address] [place] [address] 09/27/2023 8:30 AM EDT Appointment Radiology, [address] [address] 10/09/2023 1:10 PM EDT Nutrition Services Nutrition & Weight Management, [facility] [place] [address] Mercedez Kim RDN [address] [facility] [place] [address] 12/01/2023 1:45 PM EDT Office Visit Dermatology [facility] [address] [place] [address] Cyril Borges MD [address] [place] [address] 12/04/2023 1:00 PM EDT Cardiac Studies Cardiac Studies, [facility] [address] [facility] [place] [address] 12/20/2023 2:30 PM EDT Imaging Radiology, [address] [place] [address] 12/20/2023 3:20 PM EDT Office Visit Rheumatology [address] [place] [address] John Yoder MD [address] [facility] [place] [address] 01/04/2024 11:30 AM EST Appointment Radiology, [place] [address] [place] [address] 01/04/2024 1:30 PM EST Office Visit Urology, [facility] [address] [place] [address] Segundo Sandy MD [address] [place] [address] 01/09/2024 1:20 PM EST Office Visit Family Practice [facility] [address] [place] [address] Nikunj Plascencia MD [address] [place] [address] Scheduled Procedures Name Priority Associated Diagnoses Date/Ti [...] 08/29/2017, Additional history exists GFR 12/17/2023 06/17/2023, 03/09/2023, 03/31/2023, Additional history exists Colonoscopy 03/24/2026 03/24/2021, [...] D LEVEL ONCE IN A LIFETIME-USE SMARTSET# [id number] Completed 06/17/2023, 06/10/2022, 05/28/2021, Additional history exists [...] encounter Medical Devices Implanted Type Area Manager Inpatient Device Identifier Shelf Expiration Date Model / Serial / Lot Kyphon Hv-R Bone Cement Implanted:Qty: 1 on 08/17/2016 by Michael Smith MD at OR [facility] N/A: Spine Thoracic 03/19/2019 C01A / C01A / [id number] Cement Bone Lv G 1119-140-01 - [id number] Implanted:Qty: 1 on 06/04/2018 by Duc Kimble MD at OR [facility] Right: Knee [employer] 11/19/2020 00-1119-1 40-01 / / [id number] Cement Bone Lv G 1119-140-01 - [id number] Implanted:Qty: 1 on 06/04/2018 by Duc Kimble MD at OR [facility] Right: Knee [employer] 06/19/2020-1119-1 40-01 / / [id number] Persona The Personlized Knee System Vivacit-E Highly Crosslinked Polyethylene All-Poly Patella Cemented Implanted:Qty: 1 on 06/04/2018 by Duc Kimble MD at OR [facility] Right: Knee [employer] 06/19/2022 42-5402-0 00-35 / / [id number] Tibia Stem 5 Deg Rt Size F - [id number] Implanted:Qty: 1 on 06/04/2018 by Duc Kimble MD at OR [facility] Right: Knee [employer] 10/21/2027 42-5320-0 75-02 / / [id number] Persona The Personalized Knee System Femur Cemented Cr Standard Implanted:Qty: 1 on 06/04/2018 by Duc Kimble MD at OR [facility] Right: Knee [employer] 11/20/2027 42-5026-0 62-02 / / [id number] Persona The Personalized Knee System Vivacit-E Highly Crosslinked Polyethylene Articular Surface Medial Congruent Implanted:Qty: 1 on 06/04/2018 by Duc Kimble MD at OR [facility] Right: Knee [employer] 11/19/2022 42-5221-0 07-12 / / [id number] Device Watchman Flx 24mm - [id number] Implanted:Qty: 1 on 10/06/2022 by Austin Penaloza MD at [facility] [employer] : INTRV CARD [id number] 03/07/2025 [id number] 40 / / [id number] Device Watchman Flx 27mm - [id number] Implanted:Qty: 1 on 10/06/2022 by Austin Penaloza MD at [facility] [employer] : INTRV CARD [id number] 08/07/2025 [id number] 70 / / [id number] documented as of this encounter Visit Diagnoses Diagnosis Dysuria- Primary documented in this encounter Advance Directives Latest [...] the patient have Health Care Power of Field Crop Farmworker? No Care Teams Manufacturing Helper Relationship Specialty Start Date End Date Nikunj Plascencia MD [address] [place] [address] PCP - General Family Medicine 10/31/19 documented as of this encounter
--- OUTSIDE RECORDS SUMMARY | 2023-07-29 04:03 | External Medical Summary | Summary of Care ---
Author Name Unknown Organization [facility] Address [address] [place] [address] Phone [phone] Care Team Providers Care Fire Chief'S Aide Name Role Phone Nikunj Plascencia MD Primary Care Provider [phone] Encounter Details Date Type Department Care Team (Late st Contact Info) Description 06/22/2023 Telephone Access Center, [address] Ext *DO NOT REMOVE THIS DEPARTMENT* [place] [address] ADDRESS AVAILABLE Allergies Active Allergy Reactions Criticality Noted Date Comments Egg Shells Nausea/vomiting Medium 06/16/2018 Other reaction(s): GI SYMPTOMS Egg Yolk High 11/29/2019 Other reaction(s): GI upset Ibuprofen Other (Please comment) Medium 07/30/2010 Stomach upset Morphine Edema face/lips/tongue High 08/28/2021 Other reaction(s): LEGS SWELL documented as of this encounter (statuses as of 06/26/2023) Medications Medication Sig Dispensed Refills Start Date [...] Informant: Patient, Reported on 04/03/2023 Saline Nasal [place] 0.65 % Nasal Solution ([place]) Q6H 0 06/06/2022 Active Clobetasol Propionate 0.05 [...] 12/14/2022 Active Pregabalin 150 MG Oral Capsule (Lyrica)Indications: [...] Oral HS, Informant: Patient, Reported on 04/03/2023 Atorvastatin Calcium 80 MG Oral Tablet (Lipitor) TAKE 1 TABLET BY MOUTH EVERY DAY IN THE MORNING 90 Tablet 0 01/29/2023 Active Additional Information Patient taking differently: 80 mg Oral HS, Informant: Patient, Reported on [...] Powder Use as directed. 0 Acti ve Hospital, Clinic, or Other Facility Administered Medication Ordered Dose Route Frequency Start Date End Date Status atropine sulfate inj 0.4 mgIndications:Chest pain, unspecified type 0.4 mg IV PUSH PRN 01/29/2021 Active documented as of this encounter (statuses as of 06/26/2023) Active Problems Problem Noted Date Diagnosed Date Renal stone 03/21/2023 Food insecurity 01/02/2023 Overview: Per [facility] Protocol Presence of Watchman left atrial appendage closu re device 12/19/2022 PAF (paroxysmal atrial fibrillation) 08/17/2022 Overview: Added automatically from request for surgery [id number] Nasal septal perforation 06/13/2022 Overview: Per ENT [...] as of this encounter (statuses as of 06/26/2023) Resolved Problems Problem Noted Date Diagnosed Date Resolved Date Hypertensive kidney disease with stage 3b chronic [...] 140/90 12/12/201111/09 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 07/30/2018 Overview: [place] palsy Tinea 06/27/2011 07/30/2018 Mixed urge and stress incontinence 12/15/2008 10/08/2019 ADVANCE DIRECTIVE INFORMATION 06/17/2004 10/08/2019 documented as of this encounter (statuses as of 06/26/2023) Immunizations Name Administration Dates Next Due COVID-19 mRNA, LNP-s, No Pre serve, 2-Dose Series (Baidu) 10/05/2020,09/14/2020 Covid-19, Mrna, Lnp-s, Pf, B ivalent, 30 Mcg, IM, 12 yrs and above (Pfizer) 05/26/2022 Pneumococcal Conjugate Vacc, 13 Valent (Prevnar) 05/30/2016 Pneumococcal Conjugate Vacci ne, 20-valent ([id number]) 04/03/2023 Seasonal Influenza Virus Vac cine, Unspecified [...] encounter Miscellaneous Notes * Telephone Encounter - Michel Charles LPN - 06/26/2023 9:03 AM EDT On the list. Will call when have an appt time. * Telephone Encounter - Tessy King OSA - 06/22/2023 1:35 PM EDT Pt [id number] would like to get the Iovera injection was seen by Robert Lane documented in this encounter Plan of Treatment Upcoming Encounters Date Type Department Care Team (Late st Contact Info) Description 06/27/2023 1:20 PM EDT Office Visit [address] [place] [address] Nikunj Plascencia MD [address] [place] [address] 07/03/2023 2:00 PM EDT Office Visit Nephrology, [facility] [address] [place] [address] Geovanni Linder MD [address] [place] [address] 07/05/2023 2:00 PM EDT Office Visit Cardiology [facility] [place] [address] [place] [address] Austin Penaloza MD [address] [place] [address] 07/13/2023 2:30 PM EDT Office Visit Pharmacy, [facility] [address] [place] [address] [facility] [address] [place] [address] 08/23/2023 2:00 PM EDT Office Visit Podiatry [facility] [address] [place] [address] Eveline Layne, [address] [address] 09/27/2023 8:30 AM EDT Appointment Radiology, [place] [address] [place] [address] 12/01/2023 1:45 PM EDT Office Visit Dermatology [facility] [address] [place], [place] [id number] Cyril Borges MD [address] [place] [address] 12/04/2023 1:00 PM EDT Cardiac Studies Cardiac Studies, [facility] [address] [place] [address] 12/20/2023 2:30 PM EDT Imaging Radiology, [address] [place] [address] 12/20/2023 3:20 PM EDT Office Visit Rheumatology [address] [place] [address] John Yoder MD [address] [place] [address] [place] [address] 01/04/2024 11:30 AM EST Appointment Radiology, [address] [address] 01/04/2024 1:30 PM EST Office Visit Urology, [place] [address] [place], [place] [address] Luis Manuel Sandy MD [facility] [address] [place], [place] [id number] Scheduled Procedures Name Priority Associated Diagnoses Date/Ti me ROBOTIC ARTHROPLASTY KNEE TOTAL Knee osteoarthritis COLONOSCOPY FLEXIBLE PROXIMA L DIAGNOSTIC Recall History of colonic polyps Health Maintenance Due Date Last Done Comments Zoster Vaccines (1 of 2) 1976 Cologuard 2002 Sigmoidoscopy 2002 HOME BP CUFF VALIDATION YEARLY 04/02/2020 04/02/2019 Fecal Occult Blood Test 03/10/2022 03/10/19, 03/10/2021, 03/10/2021, Additional history exists COVID-19 Vaccine ( season) 2022 05/26/2022, 10/05/2020, 09/14/2020 Mammogram 11/30/2022 11/30/2021, 05/22, 06/10/2021, Additional history exists Albumin/Creatinine Ratio 06/14/2023 06/13/2022, 02/20 DXA Scan 12/01/2023 11/30/2021, 08/21, 08/29/2017, Additional history exists GFR 12/17/2023 06/17/2023, 0 09/2023, 03/31/2023, Additional history exists Colonoscopy 03/24/2026 [...] D LEVEL ONCE IN A LIFETIME-USE SMARTSET# [id number] Completed 06/17/2023, 06/10/2022, 05/28/2021, Additional history exists [...] this encounter Medical Devices Implanted Type Area Cryptographic Clerk Device Identifier Shelf Expiration Date Model / Serial / Lot Kyphon Hv-R Bone Cement Implanted:Qty: 1 on 08/17/2016 by Michael Smith MD at OR [facility] N/A: Spine Thoracic 03/19/2019 C01A / C01A / [id number] Cement Bone Lv G 1119-140-01 - [id number] Implanted:Qty: 1 on 06/04/2018 by Duc Kimble MD at OR [facility] Right: Knee [employer] 11/19/2020-1119-1 40-01 / / [id number] Cement Bone Lv G 1119-140-01 - [id number] Implanted:Qty: 1 on 06/04/2018 by Duc Kimble MD at OR [facility] Right: Knee [employer] 06/19/2020-1119-1 40-01 / / [id number] Persona The Personlized Knee System Vivacit-E Highly Crosslinked Polyethylene All-Poly Patella Cemented Implanted:Qty: 1 on 06/04/2018 by Duc Kimble MD at OR [facility] Right: Knee [employer] 06/19/2022 42-5402-0 00-35 / / [id number] Tibia Stem 5 Deg Rt Size F - [id number] Implanted:Qty: 1 on 06/04/2018 by Duc Kimble MD at OR [facility] Right: Knee [employer] 10/21/2027 42-5320-0 75-02 / / [id number] Persona The Personalized Knee System Femur Cemented Cr Standard Implanted:Qty: 1 on 06/04/2018 by Duc Kimble MD at OR [facility] Right: Knee [employer] 11/20/2027 42-5026-0 62-02 / / [id number] Persona The Personalized Knee System Vivacit-E Highly Crosslinked Polyethylene Articular Surface Medial Congruent Implanted:Qty: 1 on 06/04/2018 by Duc Kimble MD at OR [facility] Right: Knee [employer] 11/19/2022 42-5221-0 07-12 / / [id number] Device Watchman Flx 24mm - [id number] Implanted:Qty: 1 on 10/06/2022 by Austin Penaloza MD at [facility] [employer] : INTRV CARD [id number] 03/07/2025 [id number] 40 / / [id number] Device Watchman Flx 27mm - [id number] Implanted:Qty: 1 on 10/06/2022 by Austin Penaloza MD at [facility] [employer] : INTRV CARD [id number] 08/07/2025 [id number] 70 / / [id number] documented as of this encounter Advance Directives [...] the patient have Health Care Power of Build And Deployment Engineer? No Care Teams Fire Chief'S Aide Relationship Specialty Start Date End Date Nikunj Plascencia MD [address] [place] [address] PCP - General Family Medicine 10/31/19 documented as of this encounter
--- OUTSIDE RECORDS SUMMARY | 2023-07-29 04:03 | External Medical Summary | Summary of Care ---
Author Name Unknown Organization [facility] Address [address] [place] [address] Phone [phone] Care Team Providers Care Cradle Placer Name Role Phone Nikunj Plascencia MD Primary Care Provider [phone] Reason for Visit * Reason Comments Follow Up Encounter Details Date Type Department Care Team (Late st Contact Info) Description 06/07/2023 2:30 PM EDT Office Visit Dermatology [facility] [address] [place] [address] Cyril Borges MD [address] [place] [address] Dermatosis* Allergies Active Allergy Reactions Criticality Noted Date [...] Informant: Patient, Reported on 04/03/2023 Saline Nasal [place] 0.65 % Nasal Solution (Alleman) Q6H 0 06/06/2022 Active Clobetasol Propionate 0.05 [...] 24 hours 16 Tablet 10 06/05/2023 Active Hospital, Clinic, or Other Facility Administered Medication Ordered Dose Route Frequency Start Date End Date Status atropine sulfate inj 0.4 mgIndications:Chest pain, unspecified type 0.4 mg IV PUSH PRN 01/29/2021 Active sulfamethoxazole-trimetho prim DS (Bactrim DS) 800-160 MG 1 TabletIndications:Uretera l stone 1 Tablet OR ONCE 06/07/2023 06/08/2023 Ended documented as of this encounter (statuses as of 06/27/2023) Active Problems Problem Noted Date Diagnosed Date Renal stone 03/21/2023 Food insecurity 01/02/2023 Overview: Per [facility] Protocol Presence of Watchman left atrial appendage closu re device 12/19/2022 PAF (paroxysmal atrial fibrillation) 08/17/2022 Overview: Added automatically from request for surgery [id number] Nasal septal perforation 06/13/2022 Overview: Per ENT [...] 140/90 12/12/201111/09 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 07/30/2018 Overview: [place] palsy Tinea 06/27/2011 07/30/2018 Mixed urge and stress incontinence 12/15/2008 10/08/2019 ADVANCE DIRECTIVE INFORMATION 06/17/2004 10/08/2019 documented as of this encounter (statuses as of 06/27/2023) Immunizations Name Administration Dates Next Due COVID-19 mRNA, LNP-s, No Pre serve, 2-Dose Series (crossvertise) 10/05/2020,09/14/2020 Covid-19, Mrna, Lnp-s, Pf, B ivalent, 30 Mcg, IM, 12 yrs and above (crossvertise) 05/26/2022 Pneumococcal Conjugate Vacc, 13 Valent (Prevnar) 05/30/2016 Pneumococcal Conjugate Vacci ne, 20-valent ([id number]) 04/03/2023 Seasonal Influenza Virus Vac cine, Unspecified [...] (15 years old or older) No 06/05/19 Cognitive Status Response Date of Assessm ent Because of a physical, menta l, or emotional condition, do you have serious difficulty concentrating, remembering, or making decisions? (5 years old or older) No 06/04/2018 documented as of this encounter Progress Notes * Cyril Borges MD - 06/07/2023 2:30 PM EDT Dermatology Clinic Progress Note Subjective: Caroline Paulino is a 67 year old female. No chief complaint on file. HPI: Follow up facial discoid dermatosis. Some improvement with Dupixent and acitretin. C/o very dry eyes. Past Medical History: Past Medical History: Diagnosis Date --- DIABETES --- prediabetes Acute on chronic diastolic CHF (congestive heart failure) ([facility]) 01/26/2018 Allergic rhinitis Collazo's palsy left eye palsy Benign neoplasm of colon 11/20/2010 hyperplastic polyps- repeat colonoscopy in 10 years Bicuspid aortic valve 10/09/2019 Bullous pemphigoid 08/17/2016 txt with cellcept Chronic insomnia 12/22/2020 CKD (chronic kidney disease) stage 3, GFR 30-59 ml/min ([facility]) Compression fracture of body of thoracic vertebra ([facility]) 08/17/2016 Controlled substance agreement terminated 10/20/2021 Current tear of medial cartilage or meniscus of knee left knee Depression with anxiety 10/20/2021 Depressive disorder, not elsewhere classified Disorder of adrenal gland ([facility]) 01/26/2018 Dyslipidemia 12/20/2019 Fall 06/30/2022 Female stress [...] episode of recurrent major depressive disorder ([facility]) 10/08/2019 Other pulmonary embolism without acute cor pulmonale ([facility]) 07/27/2018 Overflow incontinence Paroxysmal atrial flutter ([facility]) 06/21/2021 Presence of Watchman left atrial appendage closure device 12/19/2022 Recurrent major depressive disorder in remission ([facility]) 01/26/2018 S/P kyphoplasty 08/17/2016 Sacroiliitis ([facility]) 01/26/2018 Senile osteoporosis 08/29/2017 Spinal stenosis of lumbar region without neurogenic claudication 01/04/2017 Status post total right knee replacement 06/06/2018 Tibial plateau fracture 01/22/2015 Patient's medications, allergies, past medical, surgical, social and family histories were reviewedand updated as appropriate. Objective: Physical Exam: General Appearance: Well-appearing, NAD Orientation: AOx3 Mood/Affect: Pleasant, cooperative Scalp/Hair: Normal Head/Face: Discoid plaques Conjunctivae/Lids: Normal Lips: Normal Neck: Normal Chest: Unilateral erythematous papulovesicles Digits/Nails: Normal Assessment/Plan: 1. Facial discoid dermatosis: -Some improvement on Dupixent -- continue 300 mg SQ R9Yoaip -Continue acitretin 10 mg PO Qday -- recheck lipids at ROV -Continue calcipotriene 0.005% cream BID 2. Scalp pruritus: -Favor neuropathic -Trial of Dermaleve solution 3. Dry eyes: -Start Restasis BID RTC May 2023 Cyril Borges MD Dermatology [address] [address] * Cyril Borges MD - 06/07/2023 2:30 PM EDT Dermatology Clinic Progress Note Subjective: Caroline Paulino is a 68 year old female. No chief complaint on file. HPI: Follow up facial discoid dermatosis. Improved with Dupixent and acitretin. Past Medical History: Past Medical History: Diagnosis Date --- DIABETES --- prediabetes Acute on chronic diastolic CHF (congestive heart failure) ([facility]) 01/26/2018 Allergic rhinitis Collazo's palsy left eye palsy Benign neoplasm of colon 11/20/2010 hyperplastic polyps- repeat colonoscopy in 10 years Bicuspid aortic valve 10/09/2019 Bullous pemphigoid 08/17/2016 txt with cellcept Chronic insomnia 12/22/2020 CKD (chronic kidney disease) stage 3, GFR 30-59 ml/min ([facility]) Compression fracture of body of thoracic vertebra ([facility]) 08/17/2016 Controlled substance agreement terminated 10/20/2021 Current tear of medial cartilage or meniscus of knee left knee Depression with anxiety 10/20/2021 Depressive disorder, not elsewhere classified Disorder of adrenal gland ([facility]) 01/26/2018 Dyslipidemia 12/20/2019 Fall 06/30/2022 Female stress [...] Moderate episode of recurrent major depressive disorder (HCC) 10/08/2019 Other pulmonary embolism without acute cor pulmonale (HCC) 07/27/2018 Overflow incontinence Paroxysmal atrial flutter (HCC) 06/21/2021 Presence of Watchman left atrial appendage closure device 12/19/2022 Recurrent major depressive disorder in remission ([facility]) 01/26/2018 S/P kyphoplasty 08/17/2016 Sacroiliitis (HCC) 01/26/2018 Senile osteoporosis 08/29/2017 Spinal stenosis of lumbar region without neurogenic claudication 01/04/2017 Status post total right knee replacement 06/06/2018 Tibial plateau fracture 01/22/2015 Patient's medications, allergies, past medical, surgical, social and family histories were reviewedand updated as appropriate. Objective: Physical Exam: General Appearance: Well-appearing, NAD Orientation: AOx3 Mood/Affect: Pleasant, cooperative Scalp/Hair: Normal Head/Face: Discoid plaques Conjunctivae/Lids: Normal Lips: Normal Neck: Normal Chest: Residual scaly papule and plaques Digits/Nails: Normal Assessment/Plan: 1. Facial discoid dermatosis: -Improved with Dupixent -- continue 300 mg SQ D1Szksa -Continue acitretin 10 mg PO Qday -- recheck lipids at ROV -Continue calcipotriene 0.005% cream BID 3. Dry eyes: -Start Restasis BID RTC 6 months Cyril Borges MD Dermatology [address] [address] documented in this encounter Plan of Treatment Upcoming Encounters Date Type Department Care Team (Late st Contact Info) Description 06/27/2023 1:20 PM EDT Office Visit Family Practice [facility] [address] [place] [address] Nikunj Plascencia MD [address] [place] [address] 07/03/2023 2:00 PM EDT Office Visit Nephrology, [facility] [address] [facility] [place], [place] [address] Geovanni Linder MD [facility] [place] [address] 07/05/2023 2:00 PM EDT Office Visit Cardiology [facility], [place] [address] [place] [address] Austin Penaloza MD [address] [place] [address] 07/13/2023 2:30 PM EDT Office Visit Pharmacy, [facility] [address] [place] [address] [facility] [address] [address] 08/23/2023 2:00 PM EDT Office Visit Podiatry [facility] [address] [place] [address] Eveline Layne, [address] [id number] 09/27/2023 8:30 AM EDT Appointment Radiology, [place] [address] [place] [address] 12/01/2023 1:45 PM EDT Office Visit Dermatology [facility] [address] [place] [address] Cyril Borges MD [address] [place] [address] 12/04/2023 1:00 PM EDT Cardiac Studies Cardiac Studies, [facility] [address] [place] [address] 12/20/2023 2:30 PM EDT Imaging Radiology, [place] [address] [facility] [place] [address] 12/20/2023 3:20 PM EDT Office Visit Rheumatology [facility] [address] [place] [address] John Yoder MD [address] [facility] [place] [address] 01/04/2024 11:30 AM EST Appointment Radiology, [place] [address] [place] [id number] 01/04/2024 1:30 PM EST Office Visit Urology, [place] [address], [place] [id number] Luis Manuel Sandy MD [address] [place], [place] [id number] Scheduled Procedures Name Priority Associated Diagnoses Date/Ti [...] D LEVEL ONCE IN A LIFETIME-USE SMARTSET# 70419 Completed 06/17/2023, 06/10/2022, 05/28/2021, Additional history exists [...] this encounter Medical Devices Implanted Type Area Tube Winder Device Identifier Shelf Expiration Date Model / Serial / Lot Kyphon Hv-R Bone Cement Implanted:Qty: 1 on 08/17/2016 by Michael Smith MD at OR [facility] N/A: Spine Thoracic 03/19/2019 C01A / C01A / [id number] Cement Bone Lv G 1119-140-01 - [id number] Implanted:Qty: 1 on 06/04/2018 by Duc Kimble MD at OR [facility] Right: Knee [employer] 11/19/2020 00-1119-1 40-01 / / [id number] Cement Bone Lv G 1119-140-01 - [id number] Implanted:Qty: 1 on 06/04/2018 by Duc Kimble MD at OR [facility] Right: Knee [employer] 06/19/2020 00-1119-1 40-01 / / [id number] Persona The Personlized Knee System Vivacit-E Highly Crosslinked Polyethylene All-Poly Patella Cemented Implanted:Qty: 1 on 06/04/2018 by Duc Kimble MD at OR [facility] Right: Knee [employer] 06/19/2022 42-5402-0 00-35 / / [id number] Tibia Stem 5 Deg Rt Size F - [id number] Implanted:Qty: 1 on 06/04/2018 by Duc Kimble MD at OR [facility] Right: Knee [employer] 10/21/2027 42-5320-0 75-02 / / [id number] Persona The Personalized Knee System Femur Cemented Cr Standard Implanted:Qty: 1 on 06/04/2018 by Duc Kimble MD at OR [facility] Right: Knee [employer] 11/20/2027 42-5026-0 62-02 / / [id number] Persona The Personalized Knee System Vivacit-E Highly Crosslinked Polyethylene Articular Surface Medial Congruent Implanted:Qty: 1 on 06/04/2018 by Duc Kimble MD at OR [facility] Right: Knee [employer] 11/19/2022 42-5221-0 07-12 / / [id number] Device Watchman Flx 24mm - [id number] Implanted:Qty: 1 on 10/06/2022 by Austin Penaloza MD at [facility] [employer] : INTRV CARD [id number] 03/07/2025 [id number] 40 / / [id number] Device Watchman Flx 27mm - [id number] Implanted:Qty: 1 on 10/06/2022 by Austin Penaloza MD at [facility] [employer] : INTRV CARD [id number] 08/07/2025 [id number] 70 / / [id number] documented as of this encounter Visit Diagnoses Diagnosis Dermatosis- Primary Unspecified disorder of skin and subcutaneous tissue documented in this encounter Advance Directives Latest [...] the patient have Health Care Power of Tail Puller? No Care Teams Cradle Placer Relationship Specialty Start Date End Date Nikunj Plascencia MD [address] [place] [address] PCP - General Family Medicine 10/31/19 documented as of this encounter
--- OUTSIDE RECORDS SUMMARY | 2023-07-29 04:03 | External Medical Summary | Summary of Care ---
Author Name Unknown Organization [facility] Address [address] [place] [address] Phone [phone] Care Team Providers Care Salon/Spa Manager Name Role Phone Nikunj Plascencia MD Primary Care Provider [phone] [phone] Reason for Visit * Reason Onset Date Comments Health Maintenance 06/23/2023 Encounter Details Date Type Department Care Team (Late st Contact Info) Description 06/23/2023 Telephone Family Practice [facility] 132 [facility] [place] [address] Nikunj Plascencia MD 132 [facility] [place] [address] Health Maintenance Allergies Active Allergy Reactions Criticality Noted Date Comments Egg Shells Nausea/vomiting Medium 06/16/2018 Other reaction(s): GI SYMPTOMS Egg Yolk High 11/29/2019 Other reaction(s): GI upset Ibuprofen Other (Please comment) Medium 07/30/2010 Stomach upset Morphine Edema face/lips/tongue High 08/28/2021 Other reaction(s): LEGS SWELL documented as of this encounter (statuses as of 06/23/2023) Medications Medication Sig Dispensed Refills Start Date [...] Informant: Patient, Reported on 04/03/2023 Saline Nasal [place] 0.65 % Nasal Solution (Goddard) Q6H 0 06/06/2022 Active Clobetasol Propionate 0.05 [...] as of this encounter (statuses as of 06/23/2023) Active Problems Problem Noted Date Diagnosed Date Renal stone 03/21/2023 Food insecurity 01/02/2023 Overview: Per [facility] Protocol Presence of Watchman left atrial appendage closu re device 12/19/2022 PAF (paroxysmal atrial fibrillation) 08/17/2022 Overview: Added automatically from request for surgery [id number] Nasal septal perforation 06/13/2022 Overview: Per ENT [...] as of this encounter (statuses as of 06/23/2023) Resolved Problems Problem Noted Date Diagnosed Date [...] 140/90 12/12/201111/09 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 07/30/2018 Overview: [place] palsy Tinea 06/27/2011 07/30/2018 Mixed urge and stress incontinence 12/15/2008 10/08/2019 ADVANCE DIRECTIVE INFORMATION 06/17/2004 10/08/2019 documented as of this encounter (statuses as of 06/23/2023) Immunizations Name Administration Dates Next Due COVID-19 mRNA, LNP-s, No Pre serve, 2-Dose Series ([place]o) 10/05/2020,09/14/2020 Covid-19, Mrna, Lnp-s, Pf, B ivalent, 30 Mcg, IM, 12 yrs and above ([place]) 05/26/2022 Pneumococcal Conjugate Vacc, 13 Valent (Prevnar) 05/30/2016 Pneumococcal Conjugate Vacci ne, 20-valent ([id number]) 04/03/2023 Seasonal Influenza Virus Vac cine, Unspecified [...] encounter Miscellaneous Notes * Telephone Encounter - Susan Malone LPN - 06/23/2023 8:41 AM EDT Care Gaps Comprehensive Care Outreach Last Office/Telemedicine Visit: 12/19/2022 (in office), 03/27/2020 (telemedicine) Next Office Visit: 06/27/2023 Hemoglobin AIC Results: Lab Results Component Value Date/Time HEMOGLOBIN A1C - [facility] 5.3 06/20/2020 01:23 PM HEMOGLOBIN A1C - [facility] 5.1 2018 12:11 PM HEMOGLOBIN A1C - [facility] 5.4 11/01/2016 03:04 PM HEMOGLOBIN A1C - [facility] 5.0 11/02/2015 03:13 PM BP Readings from Last 1 Encounters: 06/07/23 125/38 Reviewed Health Maintenance below: Health Maintenance Topic Date Due Zoster Vaccines (1 of 2) Never done HOME BP CUFF VALIDATION YEARLY 04/02/2020 COVID-19 Vaccine ( season) 2022 Mammogram 11/30/2022 Albumin/Creatinine Ratio 06/14/2023 Mamm urine Care Gap Outreach Action Taken: Left message documented in this encounter Plan of Treatment Upcoming Encounters Date Type Department Care Team (Late st Contact Info) Description 06/27/2023 1:20 PM EDT Office Visit Family Practice [facility] [address] [place] [address] Nikunj Plascencia MD [address] [place] [address] 07/03/2023 2:00 PM EDT Office Visit Nephrology, [facility] [address] [facility] [place] [address] Geovanni Linder MD 200 [facility] [place] [address] 07/05/2023 2:00 PM EDT Office Visit Cardiology [facility] [address] [place] [address] Austin Penaloza MD [address] [place] [address] 07/13/2023 2:30 PM EDT Office Visit Pharmacy, [facility] [address] [place] [address] [facility] [address] [place] [address] 08/23/2023 2:00 PM EDT Office Visit Podiatry [facility] [address] [place] [address] Eveline Layne, [facility]eth[facility] [address] [place] [address] 09/27/2023 8:30 AM EDT Appointment Radiology, [address] [address] 09/27/2023 9:30 AM EDT Office Visit Urology, [place] [address] [place] [address] Luis Manuel Sandy MD [address] [place] [address] 12/01/2023 1:45 PM EDT Office Visit Dermatology [address] [address] Cyril Borges MD [address] [place] [address] 12/04/2023 1:00 PM EDT Cardiac Studies Cardiac Studies, [facility] [address] [place] [address] 12/20/2023 2:30 PM EDT Imaging Radiology, [address] [place] [address] 12/20/2023 3:20 PM EDT Office Visit Rheumatology [address] [place] [address] John Yoder MD [address] [place] [address] [place] [address] Scheduled Procedures Name Priority Associated Diagnoses Date/Ti me ROBOTIC ARTHROPLASTY KNEE TOTAL Knee osteoarthritis COLONOSCOPY FLEXIBLE PROXIMA L DIAGNOSTIC Recall History of colonic polyps Health Maintenance Due Date Last Done Comments Zoster Vaccines (1 of 2) 1976 Cologuard 2002 Sigmoidoscopy 2002 HOME BP CUFF VALIDATION YEARLY 04/02/2020 04/02/2019 Fecal Occult Blood Test 03/10/2022 03/10/19, 03/10/2021, 03/10/2021, Additional history exists COVID-19 Vaccine (4 - 2023-24 season) 2022 05/26/2022, 10/05/2020, 09/14/2020 Mammogram 11/30/2022 [...] D LEVEL ONCE IN A LIFETIME-USE SMARTSET# [id number] Completed 06/17/2023, 06/10/2022, 05/28/2021, Additional history exists [...] this encounter Medical Devices Implanted Type Area Classroom Instructional Aide Device Identifier Shelf Expiration Date Model / Serial / Lot Kyphon Hv-R Bone Cement Implanted:Qty: 1 on 08/17/2016 by Michael Smith MD at OR [facility] N/A: Spine Thoracic 03/19/2019 C01A / C01A / [id number] Cement Bone Lv G 1119-140-01 - [id number] Implanted:Qty: 1 on 06/04/2018 by Duc Kimble MD at OR [facility] Right: Knee [employer] 11/19/20201119-1 40-01 / / [id number] Cement Bone Lv G 1119-140-01 - [id number] Implanted:Qty: 1 on 06/04/2018 by Duc Kimble MD at OR [facility] Right: Knee [employer] 06/19/20201119-1 40- / / [id number] Persona The Personlized Knee System Vivacit-E Highly Crosslinked Polyethylene All-Poly Patella Cemented Implanted:Qty: 1 on 06/04/2018 by Duc Kimble MD at OR [facility] Right: Knee [employer] 06/19/2022 42-5402-0 00-35 / / [id number] Tibia Stem 5 Deg Rt Size F - [id number] Implanted:Qty: 1 on 06/04/2018 by Duc Kimble MD at OR [facility] Right: Knee [employer] 10/21/2027 42-5320-0 75-02 / / [id number] Persona The Personalized Knee System Femur Cemented Cr Standard Implanted:Qty: 1 on 06/04/2018 by Duc Kimble MD at OR [facility] Right: Knee [employer] 11/20/2027 42-5026-0 62-02 / / [id number] Persona The Personalized Knee System Vivacit-E Highly Crosslinked Polyethylene Articular Surface Medial Congruent Implanted:Qty: 1 on 06/04/2018 by Duc Kimble MD at OR [facility] Right: Knee [employer] 11/19/2022 42-5221-0 07-12 / / [id number] Device Watchman Flx 24mm - [id number] Implanted:Qty: 1 on 10/06/2022 by Austin Peanloza MD at [facility] [employer] : INTRV CARD [id number] 03/07/2025 [id number] 40 / / [id number] Device Watchman Flx 27mm - [id number] Implanted:Qty: 1 on 10/06/2022 by Austin Penaloza MD at [facility] [employer] : INTRV CARD [id number] 08/07/2025 [id number] 70 / / [id number] documented as of this encounter Advance Directives [...] the patient have Health Care Power of Student Life Coordinator? No Care Teams Salon/Spa Manager Relationship Specialty Start Date End Date Nikunj Plascencia MD [address] [place] [address] PCP - General Family Medicine 10/31/19 documented as of this encounter
--- OUTSIDE RECORDS SUMMARY | 2023-07-29 04:03 | External Medical Summary | Summary of Care ---
Author Name Unknown Organization [facility] Address [address] [place] [address] Phone [phone] Care Team Providers Care Lead Nuclear Medicine Technologist Name Role Phone Nikunj Plascencia MD Primary Care Provider [phone] Reason for Visit * Reason Onset Date Comments Medication Administration prolia Medication Administration 06/19/2023 Prolia * Precert (Within 30 days (routine)) - Authorized Specialty Diagnoses / Procedures Referred By Contac t Referred To Contact Diagnoses Age-related osteoporosis without current pathological fracture Procedures DENOSUMAB 1MG, INJ John Yoder MD [address] [place] [id number] John Yoder MD [address] [place] [address] Referral ID Status Reason Start Date Expiration Date V isits Requested Visits Authorized [id number] Authorized Precert 11/22/2022 02/19/2099 999 99 Encounter Details Date Type Department Care Team (Late st Contact Info) Description 06/19/2023 1:30 PM EDT Nurse Only Rheumatology [place] [id number] [facility] [place] [address] Pf, Nurse Rheum [facility] [place] [address] Medication Administration (prolia); Medica... Allergies Active Allergy Reactions Criticality Noted Date Comments Egg Shells Nausea/vomiting Medium 06/16/2018 Other reaction(s): GI SYMPTOMS Egg Yolk High 11/29/2019 Other reaction(s): GI upset Ibuprofen Other (Please comment) Medium 07/30/2010 Stomach upset Morphine Edema face/lips/tongue High 08/28/2021 Other reaction(s): LEGS SWELL documented as of this encounter (statuses as of 06/19/2023) Medications Medication Sig Dispensed Refills Start Date [...] Informant: Patient, Reported on 04/03/2023 Saline Nasal [place] 0.65 % Nasal Solution ([place]ent) Q6H 0 06/06/2022 Active Clobetasol Propionate 0.05 [...] 0.4 mg IV PUSH PRN 01/29/2021 Active Denosumab (Prolia) subcut inj 60 mgIndications:Senile osteoporosis 60 mg SC ONCE 06/19/2023 06/19/2023 Ended documented as of this encounter (statuses as of 06/19/2023) Active Problems Problem Noted Date Diagnosed Date Renal stone 03/21/2023 Food insecurity 01/02/2023 Overview: Per [facility] Protocol Presence of Watchman left atrial appendage closu re device 12/19/2022 PAF (paroxysmal atrial fibrillation) 08/17/2022 Overview: Added automatically from request for surgery [id number] Nasal septal perforation 06/13/2022 Overview: Per ENT [...] as of this encounter (statuses as of 06/19/2023) Resolved Problems Problem Noted Date Diagnosed Date [...] 140/90 12/12/201111/09 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 07/30/2018 Overview: [place] palsy Tinea 06/27/2011 07/30/2018 Mixed urge and stress incontinence 12/15/2008 10/08/2019 ADVANCE DIRECTIVE INFORMATION 06/17/2004 10/08/2019 documented as of this encounter (statuses as of 06/19/2023) Immunizations Name Administration Dates Next Due COVID-19 mRNA, LNP-s, No Pre serve, 2-Dose Series ([employer]) 10/05/2020,09/14/2020 Covid-19, Mrna, Lnp-s, Pf, B ivalent, 30 Mcg, IM, 12 yrs and above ([employer]) 05/26/2022 Pneumococcal Conjugate Vacc, 13 Valent (Prevnar) 05/30/2016 Pneumococcal Conjugate Vacci ne, 20-valent ([id number]) 04/03/2023 Seasonal Influenza Virus Vac cine, Unspecified [...] Sign Reading Time Taken Comments Blood Pressure - - Pulse - - Temperature 37.1 C (98.7 F) 06/19/2023 1:03 PM ED T Respiratory Rate - - Oxygen Saturation - - Inhaled Oxygen Concentration - - Weight - - Height - - Body Mass Index - - documented in this encounter Functional Status Functional [...] as of this encounter Progress Notes * Priscila Fernando LPN - 06/19/2023 1:03 PM EDT Caroline Paulino presents today for administration of Prolia. She understands the benefits and risks of this treatment. An educational pamphlet was given to the patient. Prolia 60 mg was administered subcutaneously. The patient tolerated the procedure without problems. She will return in 6 months for the next injection and evaluation. Priscila Fernando LPN documented in this encounter Nursing Notes * Priscila Fernando LPN - 06/19/2023 12:59 PM EDT Chief Complaint Patient presents with Medication Administration prolia Pt reported a fall last month on May 25. No major injuries reported. Pt had a kidney stone removed last month and has been having right hip pain since then. Reported ittakes her 2 hours to get out of bed in the morning. documented in this encounter Plan of Treatment Upcoming Encounters Date Type Department Care Team (Late st Contact Info) Description 06/22/2023 12:30 PM EDT Telemedicine Orthopaedics [facility] 132 [facility] [place] [address] PA-C [address] [place] [address] [place] [address] 06/27/2023 1:20 PM EDT Office Visit Family Practice [facility] 132 [place] [address] Nikunj Plascencia MD 132 [place] [address] 07/03/2023 2:00 PM EDT Office Visit Nephrology, [facility] 200 [facility] [place] [address] Geovanni Linder MD 200 [facility] [place] [address] 07/13/2023 2:30 PM EDT Office Visit Pharmacy, [facility] [address] [place] [address] [facility] 132 [place] [address] 08/23/2023 2:00 PM EDT Office Visit Podiatry [facility] [address] [place] [address] Eveline Layne, DPM [address] [place], [place] [id number] 09/27/2023 8:30 AM EDT Appointment Radiology, [address] [address] 09/27/2023 9:30 AM EDT Office Visit Urology, [place] [address] [place] [address] Luis Manuel Sandy MD [address] [place] [address] 12/01/2023 1:45 PM EDT Office Visit Dermatology [facility] [address] [place] [address] Cyril Borges MD 16 [place] [address] 12/04/2023 1:00 PM EDT Cardiac Studies Cardiac Studies, [facility] [address] [place] [address] 12/20/2023 2:30 PM EDT Imaging Radiology, [address] [place] [address] 12/20/2023 3:20 PM EDT Office Visit Rheumatology [address] [place] [address] John Yoder MD [address] [place] [address] [place] [address] Scheduled Procedures Name Priority Associated Diagnoses Date/Ti [...] D LEVEL ONCE IN A LIFETIME-USE SMARTSET# 20206 Completed 06/17/2023, 06/10/2022, 05/28/2021, Additional history exists [...] this encounter Medical Devices Implanted Type Area Hired Help Device Identifier Shelf Expiration Date Model / Serial / Lot Kyphon Hv-R Bone Cement Implanted:Qty: 1 on 08/17/2016 by Michael Smith MD at OR [facility] [place] N/A: Spine Thoracic 03/19/2019 C01A / C01A / [id number] Cement Bone Lv G 1119-140-01 - [id number] Implanted:Qty: 1 on 06/04/2018 by Duc Kimble MD at OR [facility] Right: Knee [employer] 11/19/2020-1119-1 40- / / [id number] Cement Bone Lv G 1119-140-01 - [id number] Implanted:Qty: 1 on 06/04/2018 by Duc Kimble MD at OR [facility] Right: Knee [employer] 06/19/2020-1119-1 40- / / [id number] Persona The Personlized Knee System Vivacit-E Highly Crosslinked Polyethylene All-Poly Patella Cemented Implanted:Qty: 1 on 06/04/2018 by Duc Kimble MD at OR [facility] Right: Knee [employer] 06/19/2022 42-5402-0 00-35 / / [id number] Tibia Stem 5 Deg Rt Size F - [id number] Implanted:Qty: 1 on 06/04/2018 by Duc Kimble MD at OR [facility] Right: Knee [employer] 10/21/2027 42-5320-0 75-02 / / [id number] Persona The Personalized Knee System Femur Cemented Cr Standard Implanted:Qty: 1 on 06/04/2018 by Duc Kimble MD at OR [facility] Right: Knee [employer] 11/20/2027 42-5026-0 62-02 / / [id number] Persona The Personalized Knee System Vivacit-E Highly Crosslinked Polyethylene Articular Surface Medial Congruent Implanted:Qty: 1 on 06/04/2018 by Duc Kimble MD at OR [facility] Right: Knee [employer] 11/19/2022 42-5221-0 07-12 / / [id number] Device Watchman Flx 24mm - [id number] Implanted:Qty: 1 on 10/06/2022 by Austin Penaloza MD at [facility] [place] Impinj SCIENTIFIC : INTRV CARD [id number] 03/07/2025 [id number] 40 / / [id number] Device Watchman Flx 27mm - [id number] Implanted:Qty: 1 on 10/06/2022 by Austin Penaloza MD at [facility] [place] [employer] : INTRV CARD [id number] 08/07/2025 [id number] 70 / / [id number] documented as of this encounter Visit Diagnoses Diagnosis Senile osteoporosis- Primary documented in this encounter Administered Medications Inactive Administered Medications - up to 3 most recent administrations Medication Order MAR Action Action Date Dose Rate Site Denosumab (Prolia) subcut inj 60 mg 60 mg, Subcutaneous, ONCE, On 06/19/23 at 1330, For 1 dose Given 06/19/2023 1:07 PM EDT 60 mg Arm L eft Upper documented in this encounter Advance Directives Latest [...] the patient have Health Care Power of Substation Design Draftsperson? No Care Teams Lead Nuclear Medicine Technologist Relationship Specialty Start Date End Date Nikunj Plascencia MD [address] [place] [address] PCP - General Family Medicine 10/31/19 documented as of this encounter
--- OUTSIDE RECORDS SUMMARY | 2023-07-29 04:03 | External Medical Summary | Summary of Care ---
Author Name Unknown Organization [facility] Address [address] [place] [address] Phone [phone] Care Team Providers Care Hadoop Analyst Name Role Phone Nikunj Plascencia MD Primary Care Provider [phone] Reason for Visit * Reason Onset Date Comments Advice 03/22/2023 Encounter Details Date Type Department Care Team (Late st Contact Info) Description 03/22/2023 Telephone Urology, [place] [address] [place] [address] Services, [facility] [address] [place] [address] Advice Allergies Active Allergy Reactions Criticality Noted Date Comments Egg Shells Nausea/vomiting Medium 06/16/2018 Other reaction(s): GI SYMPTOMS Egg Yolk High 11/29/2019 Other reaction(s): GI upset Ibuprofen Other (Please comment) Medium 07/30/2010 Stomach upset Morphine Edema face/lips/tongue High 08/28/2021 Other reaction(s): LEGS SWELL documented as of this encounter (statuses as of 06/21/2023) Medications Medication Sig Dispensed Refills Start Date [...] Informant: Patient, Reported on 04/03/2023 Saline Nasal [place] 0.65 % Nasal Solution ([place]s) Q6H 0 06/06/2022 Active Clobetasol Propionate 0.05 [...] 12 hours. 5.5 mL 5 02/15/2023 Active Hospital, Clinic, or Other Facility Administered Medication Ordered Dose Route Frequency Start Date End Date Status atropine sulfate inj 0.4 mgIndications:Chest pain, unspecified type 0.4 mg IV PUSH PRN 01/29/2021 Active documented as of this encounter (statuses as of 06/21/2023) Active Problems Problem Noted Date Diagnosed Date Renal stone 03/21/2023 Food insecurity 01/02/2023 Overview: Per [facility] Protocol Presence of Watchman left atrial appendage closu re device 12/19/2022 PAF (paroxysmal atrial fibrillation) 08/17/2022 Overview: Added automatically from request for surgery [id number] Nasal septal perforation 06/13/2022 Overview: Per ENT 4/24/23 - "too large for surgery --- follow [...] as of this encounter (statuses as of 06/21/2023) Resolved Problems Problem Noted Date Diagnosed Date [...] 140/90 12/12/201111/09 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 07/30/2018 Overview: [place] palsy Tinea 06/27/2011 07/30/2018 Mixed urge and stress incontinence 12/15/2008 10/08/2019 ADVANCE DIRECTIVE INFORMATION 06/17/2004 10/08/2019 documented as of this encounter (statuses as of 06/21/2023) Immunizations Name Administration Dates Next Due COVID-19 mRNA, LNP-s, No Pre serve, 2-Dose Series ([employer]) 10/05/2020,09/14/2020 Covid-19, Mrna, Lnp-s, Pf, B ivalent, 30 Mcg, IM, 12 yrs and above ([employer]) 05/26/2022 Pneumococcal Conjugate Vacc, 13 Valent (Prevnar) 05/30/2016 Seasonal Influenza Virus Vac cine, Unspecified Formulation [...] encounter Miscellaneous Notes * Telephone Encounter - Cynthia Wolf RN - 03/22/2023 3:31 PM EST If the pt's pain to that degree,she is to go to the nearest ER for evaluation. * Telephone Encounter - Aster Altamirano OSA - 03/22/2023 3:13 PM EST Pt. Calling to let provider know that her pain has increased a lot today was difficult to get up out of bed due to pain, and not much better. Pt. Wants to know what provider advises she do next. Pt call back # [phone]. documented in this encounter Plan of Treatment Upcoming Encounters Date Type Department Care Team (Late st Contact Info) Description 06/22/2023 12:30 PM EDT Telemedicine Orthopaedics [facility] 132 [facility] [place] [address] PA-C [address] [place] [address] 06/27/2023 1:20 PM EDT Office Visit Family Practice [facility] 132 [facility] [place] [address] Nikunj Plascencia MD 132 [facility] [place] [address] 07/03/2023 2:00 PM EDT Office Visit Nephrology, [facility] [address] [place] [address] Geovanni Linder MD [address] [place] [address] 07/13/2023 2:30 PM EDT Office Visit Pharmacy, [facility] 132 [facility] [place] [address] [facility] [address] 08/23/2023 2:00 PM EDT Office Visit Podiatry [facility] 132 [place] [address] Eveline Layne DPM 400 [place] [address] 09/27/2023 8:30 AM EDT Appointment Radiology, [address] [address] 09/27/2023 9:30 AM EDT Office Visit Urology, [place] [address] [place] [address] Luis Manuel Sandy MD [address] [place], [place] [id number] 12/01/2023 1:45 PM EDT Office Visit Dermatology [facility] 16 [place] [address] Cyril Borges MD 16 [place] [address] 12/04/2023 1:00 PM EDT Cardiac Studies Cardiac Studies, [facility] 132 [place] [address] 12/20/2023 2:30 PM EDT Imaging Radiology, [address] [place] [address] 12/20/2023 3:20 PM EDT Office Visit Rheumatology [address] [place] [address] John Yoder MD [address] [place] [address] [place] [address] Scheduled Procedures Name Priority Associated Diagnoses Date/Ti [...] D LEVEL ONCE IN A LIFETIME-USE SMARTSET# 88303 Completed 06/17/2023, 06/10/2022, 05/28/2021, Additional history exists [...] this encounter Medical Devices Implanted Type Area Pictures Editor Device Identifier Shelf Expiration Date Model / Serial / Lot Kyphon Hv-R Bone Cement Implanted:Qty: 1 on 08/17/2016 by Michael Smith MD at OR [facility] [place] N/A: Spine Thoracic 03/19/2019 C01A / C01A / [id number] Cement Bone Lv G 1119-140-01 - [id number] Implanted:Qty: 1 on 06/04/2018 by Duc Kimble MD at OR [facility] Right: Knee [employer] 11/19/20201119-1 40-01 / / [id number] Cement Bone Lv G 1119-140-01 - [id number] Implanted:Qty: 1 on 06/04/2018 by Duc Kimble MD at OR [facility] Right: Knee [employer] 06/19/20201119-1 40-01 / / [id number] Persona The Personlized Knee System Vivacit-E Highly Crosslinked Polyethylene All-Poly Patella Cemented Implanted:Qty: 1 on 06/04/2018 by Duc Kimble MD at OR [facility] Right: Knee [employer] 06/19/2022 42-5402-0 00-35 / / [id number] Tibia Stem 5 Deg Rt Size F - [id number] Implanted:Qty: 1 on 06/04/2018 by Duc Kimble MD at OR [facility] Right: Knee [employer] 10/21/2027 42-5320-0 75-02 / / [id number] Persona The Personalized Knee System Femur Cemented Cr Standard Implanted:Qty: 1 on 06/04/2018 by Duc Kimble MD at OR [facility] Right: Knee [employer] 11/20/2027 42-5026-0 62-02 / / [id number] Persona The Personalized Knee System Vivacit-E Highly Crosslinked Polyethylene Articular Surface Medial Congruent Implanted:Qty: 1 on 06/04/2018 by Duc Kimble MD at OR [facility] Right: Knee [employer] 11/19/2022 42-5221-0 07-12 / / [id number] Device Watchman Flx 24mm - [id number] Implanted:Qty: 1 on 10/06/2022 by Austin Penaloza MD at [facility] [place] [employer] : INTRV CARD [id number] 03/07/2025 [id number] 40 / / [id number] Device Watchman Flx 27mm - [id number] Implanted:Qty: 1 on 10/06/2022 by Austin Penaloza MD at [facility] [place] [employer] : INTRV CARD [id number] 08/07/2025 [id number] 70 / / [id number] documented as of this encounter Advance Directives [...] the patient have Health Care Power of Speech And Hearing Director? No Care Teams Hadoop Analyst Relationship Specialty Start Date End Date Nikunj Plascencia MD 132 [facility] [place] [address] PCP - General Family Medicine 10/31/19 documented as of this encounter
--- OUTSIDE RECORDS SUMMARY | 2023-07-29 04:03 | External Medical Summary | Summary of Care ---
Author Name Unknown Organization [facility] Address [address] [place] [address] Phone [phone] Care Team Providers Care Superintendent Of Schools Name Role Phone Nikunj Plascencia MD Primary Care Provider [phone] Encounter Details Date Type Department Care Team (Late st Contact Info) Description 06/22/2023 12:30 PM EDT Telemedicine Orthopaedics [facility] [address] [facility] [place] [address] PA-C [address] [place] [address] Primary osteoarthritis of left knee*; Chronic pain of left knee Allergies Active Allergy Reactions Criticality Noted Date Comments Egg Shells Nausea/vomiting Medium 06/16/2018 Other reaction(s): GI SYMPTOMS Egg Yolk High 11/29/2019 Other reaction(s): GI upset Ibuprofen Other (Please comment) Medium 07/30/2010 Stomach upset Morphine Edema face/lips/tongue High 08/28/2021 Other reaction(s): LEGS SWELL documented as of this encounter (statuses as of 06/22/2023) Medications Medication Sig Dispensed Refills Start Date [...] Informant: Patient, Reported on 04/03/2023 Saline Nasal [place] 0.65 % Nasal Solution (Taos) Q6H 0 06/06/2022 Active Clobetasol Propionate 0.05 [...] as of this encounter (statuses as of 06/22/2023) Active Problems Problem Noted Date Diagnosed Date Renal stone 03/21/2023 Food insecurity 01/02/2023 Overview: Per [facility] Protocol Presence of Watchman left atrial appendage closu re device 12/19/2022 PAF (paroxysmal atrial fibrillation) 08/17/2022 Overview: Added automatically from request for surgery [id number] Nasal septal perforation 06/13/2022 Overview: Per ENT [...] as of this encounter (statuses as of 06/22/2023) Resolved Problems Problem Noted Date Diagnosed Date [...] 140/90 12/12/201111/09 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 07/30/2018 Overview: Boaz palsy Tinea 06/27/2011 07/30/2018 Mixed urge and stress incontinence 12/15/2008 10/08/2019 ADVANCE DIRECTIVE INFORMATION 06/17/2004 10/08/2019 documented as of this encounter (statuses as of 06/22/2023) Immunizations Name Administration Dates Next Due COVID-19 mRNA, LNP-s, No Pre serve, 2-Dose Series (Neofonie) 10/05/2020,09/14/2020 Covid-19, Mrna, Lnp-s, Pf, B ivalent, 30 Mcg, IM, 12 yrs and above (Neofonie) 05/26/2022 Pneumococcal Conjugate Vacc, 13 Valent (Prevnar) 05/30/2016 Pneumococcal Conjugate Vacci ne, 20-valent ([id number]) 04/03/2023 Seasonal Influenza Virus Vac cine, Unspecified [...] as of this encounter Progress Notes * Robert Lane PA-C - 06/22/2023 11:15 AM EDT ORTHOPAEDIC SURGERY - Telephonic Note After connecting to the patient via telephone, the patient was identified by name and date of . Patient was then informed that this was a telephone call only visit. The patient agreed to participate. Visit Disposition: Requires face to face/telemedicine follow-up (this telephonic visit is not billable) Total call duration was 5 minutes. SUBJECTIVE: Caroline Paulino is a 68 year old female. No chief complaint on file. HPI: Caroline is a very pleasant 68-year-old female who presents via telephonic visit today to discussresponse to Iovera nerve ablation she received roughly 1 month ago. Today patient states that she has experienced significant relief, on the order of roughly 70%. She is quite pleased with her pain relief. She does report some pain at times, and was certain movements, but states that pain overall is much better. She is interested in repeat Iovera treatment in the future. No other orthopedic complaints at this time. Review of Systems: Constitutional ROS: No fevers, sweats, or chills Cardiovascular ROS: No chest pain Gastrointestinal ROS: No abdominal pain Musculoskeletal/Extremities ROS: Left knee pain Neurologic ROS: No numbness or tingling Review of patient's allergies indicates: Allergen Reactions Egg Yolk Other reaction(s): GI upset Morphine Edema face/lips/tongue Other reaction(s): LEGS SWELL Egg Shells Nausea/vomiting Other reaction(s): GI SYMPTOMS Ibuprofen Other (Please comment) Stomach upset Current Outpatient Medications Medication Sig Dispense Refill [...] at bedtime.) 90 Tablet 3 Saline Nasal [place] 0.65 % Nasal Solution (Taos) Q6H Clobetasol Propionate 0.05 % External Ointment [...] by mouth at bedtime.) 90 Tablet 3 Atorvastatin Calcium 80 MG Oral Tablet (Lipitor) TAKE 1 TABLET BY MOUTH EVERY DAY IN THE MORNING (Patient taking differently: Take 1 Tablet by mouth at bedtime.) 90 Tablet 0 Metoprolol Succinate ER 50 MG Oral Tablet [...] (CeleXA) Betamethasone Acetate Powder Use as directed. Current Facility-Administered Medications Medication Dose Route Frequency Provider Last Rate Last Admin atropine sulfate inj 0.4 mg 0.4 mg IV Push PRN Trip Nolasco, DO Patient Active Problem List Diagnosis Code Irritable bowel syndrome with both constipation and diarrhea K58.2 HTN, goal below 130/80 I10 Stage 3b chronic kidney disease (CKD) ([facility]) N18.32 Morbid obesity ([facility]) E66.01 Spinal stenosis of lumbar region without neurogenic claudication M48.061 Gastroesophageal reflux disease without esophagitis K21.9 Senile osteoporosis M81.0 Bicuspid aortic valve Q23.1 Moderate aortic stenosis I35.0 Dyslipidemia E78.5 Chronic insomnia F51.04 Paroxysmal atrial flutter ([facility]) I48.92 Depression with anxiety F41.8 Controlled substance agreement terminated Z91.148 Migraine with aura and without status migrainosus, not intractable G43.109 Nasal septal perforation J34.89 PAF (paroxysmal atrial fibrillation) ([facility]) I48.0 Presence of Watchman left atrial appendage closure device Z95.818 Food insecurity Z59.41 Renal stone N20.0 Past Medical History: Diagnosis Date --- DIABETES --- prediabetes Acute on chronic diastolic CHF (congestive heart failure) ([facility]) 01/26/2018 Allergic rhinitis Collazo's palsy left eye palsy Benign neoplasm of colon 11/20/2010 hyperplastic polyps- repeat colonoscopy in 10 years Bicuspid aortic valve 10/09/2019 Bullous pemphigoid 08/17/2016 txt with cellcept Chronic insomnia 12/22/2020 CKD (chronic kidney disease) stage 3, GFR 30-59 ml/min ([facility]) Compression fracture of body of thoracic vertebra ([facility]) 08/17/2016 Controlled substance agreement terminated 10/20/2021 Current tear of medial cartilage or meniscus of knee left knee Depression with anxiety 10/20/2021 Depressive disorder, not elsewhere classified Disorder of adrenal gland ([facility]) 01/26/2018 Dyslipidemia 12/20/2019 Fall 06/30/2022 [...] Moderate episode of recurrent major depressive disorder ([facility]) 10/08/2019 Other pulmonary embolism without acute cor pulmonale ([facility]) 07/27/2018 Overflow incontinence Paroxysmal atrial flutter ([facility]) 06/21/2021 Presence of Watchman left atrial appendage closure device 12/19/2022 Recurrent major depressive disorder in remission ([facility]) 01/26/2018 S/P kyphoplasty 08/17/2016 Sacroiliitis ([facility]) 01/26/2018 Senile osteoporosis 08/29/2017 Spinal stenosis of lumbar region without neurogenic claudication 01/04/2017 Status post total right knee replacement 06/06/2018 Tibial plateau fracture 01/22/2015 Past Surgical History: Procedure Laterality Date ARTHROPLASTY KNEE TOTAL Right 06/04/2018 ARTHROPLASTY KNEE TOTAL performed by Duc Kimble Jr., MD at OR [facility] ASP/INJECT GANGLION CYST bilaterally, right x2 COLONOSCOPY THRU STOMA, W/BIOPSY 11/20/2010 hyperplastic polyps- repeat colonoscopy in 10 years COLONOSCOPY, DIAGNOSTIC (RECTUM) 10/16/2017 poor prep, procedure aborted/[facility] COLONOSCOPY, DIAGNOSTIC (RECTUM) 09/19/2018 diverticulosis/COLONOSCOPY FLEXIBLE PROXIMAL DIAGNOSTIC performed by Kristen Nogueira MD at ENDOSCOPY [facility] COLONOSCOPY, DIAGNOSTIC (RECTUM) 03/24/2021 adenomatous polyp, diverticulosis, repeat 5 yrs / [facility] CORONARY ANGIOGRAPHY W/LEFT HEART CATH Right 11/07/2016 CORONARY ANGIOGRAPHY W/LEFT HEART CATH performed by Fernando Germain DO at CARDIAC LABS [facility] CYSTO/URETERO W/LITHOTRIPSY Right 04/03/2023 CYSTOURETHROSCOPY URETEROSCOPY WITH LITHOTRIPSY AND STENT INSERTION performed by Luis Manuel Sandy MD at OR [facility] CYSTO/URETERO W/LITHOTRIPSY Right 05/01/2023 CYSTOURETHROSCOPY URETEROSCOPY WITH LITHOTRIPSY AND STENT INSERTION performed by Luis Manuel Sandy MD at OR [facility] EGD, FLEXIBLE, DIAGNOSTIC 10/13/2017 normal/[facility] EGD, FLEXIBLE, DIAGNOSTIC 03/24/2021 Barretts, gastritis / [facility] HYSTEROSCOPY;ENDOMETRIAL ABLAT 1998 hysteroscopy, rollerball ablation INFORMATION [...] performed by Michael Smith MD at OR [facility] MAMMOGRAM SCREENING-BILATERAL 2004 [facility] PERC CLOSURE TRANSCATH LEFT ATRIAL APPENDAGE W/ENDOCARDIAL IMPLANT Right 10/06/2022 PERCUTANEOUS CLOSURE LEFT ATRIAL APPENDAGE IMPLANT performed by Austin Penaloza MD at CARDIAC [facility] REMOVAL OF APPENDIX 11/2018 SACROILIAC JOINT INJECT W/GUIDANCE 03/19/2018 INJECTION SACROILIAC JOINT performed by Yannick Daniel, DO at OR [facility] SACROILIAC JOINT INJECT W/GUIDANCE 04/30/2018 INJECTION SACROILIAC JOINT performed by Yannick Daniel, DO at OR [facility] SACROILIAC JOINT INJECT W/GUIDANCE 07/30/2018 INJECTION SACROILIAC JOINT performed by Yannick Daniel, DO at OR [facility] SACROILIAC JOINT INJECT W/GUIDANCE Right 07/29/2019 INJECTION SACROILIAC JOINT performed by Yannick Daniel, DO at OR [facility] SACROILIAC JOINT INJECT W/GUIDANCE 04/13/2020 INJECTION SACROILIAC JOINT performed by Yannick Daniel DO at OR [facility] THIGH OR KNEE SURGERY NEC 2006 Knee/Leg Other Procedures Unlisted Social History Tobacco Use Smoking status: Former Current packs/day: 0.00 Average packs/day: 0.5 packs/day for 30.0 years (15.0 ttl pk-yrs) Types: Cigarettes Start date: 07/30/1978 Quit date: 07/30/2008 Years since quittin.9 Smokeless tobacco: Never Tobacco comments: mar 2007 Vaping Use Vaping Use: Never used Substance Use Topics Alcohol use: No Drug use: No Family history: Noncontributory OBJECTIVE: Diagnostic Testing: None today Vital Signs: Unable to obtain There were no vitals taken for this visit. Physical Exam: Unable to obtain ASSESSMENT: Primary osteoarthritis of left knee (Primary) Chronic pain of left knee Follow-up: Return if symptoms worsen or fail to improve. | Check-out note: Patient preferable to contact the office for repeat Iovera procedure for the left knee. PLAN: We discussed her excellent relief and response obtained in the left knee from Iovera roughly 1 month ago. She is interested in repeat treatment, and is preferable to contact the office when her pain returns and repeat treatment is convenient for her. I recommended patient contact the office in the interim with any questions, concerns, or worsening of symptoms. Patient is comfortable with the plan, is again quite pleased with her Iovera results, and all questions were answered. This chart was completed in part utilizing [employer] Speech Voice Recognition Software. Grammatical errors, random word insertions, pronoun errors, and incomplete sentences are an occasional consequence of this system due to software limitations, ambient noise, and hardware issues. Any formal questions or concerns about the content, text, or information contained within the body of this dictation should be directly addressed to the provider for clarification. Robert Lane PA-C 06/22/2023 11:15 AM documented in this encounter Plan of Treatment Upcoming Encounters Date Type Department Care Team (Late st Contact Info) Description 06/27/2023 1:20 PM EDT Office Visit Family Practice [facility] [address] [place] [address] Nikunj Plascencia MD [address] [place] [address] 07/03/2023 2:00 PM EDT Office Visit Nephrology, [facility] [address] [place] [address] Geovanni Linder MD [address] [facility] [place] [address] 07/13/2023 2:30 PM EDT Office Visit Pharmacy, [facility] [address] [place] [address] [facility] [place] [address] 08/23/2023 2:00 PM EDT Office Visit Podiatry [facility] [address] [place] [address] Eveline Layne DPM [address] [place] [address] 09/27/2023 8:30 AM EDT Appointment Radiology, [address] [address] 09/27/2023 9:30 AM EDT Office Visit Urology, [address] [address] Luis Manuel Sandy MD [facility] [place] [address] 12/01/2023 1:45 PM EDT Office Visit Dermatology [facility] [address] [place] [address] Cyril Borges MD [address] [place] [address] 12/04/2023 1:00 PM EDT Cardiac Studies Cardiac Studies, [facility] [address] [place] [address] 12/20/2023 2:30 PM EDT Imaging Radiology, [address] [address] 12/20/2023 3:20 PM EDT Office Visit Rheumatology [address] [place] [address] John Yoder MD [address] [place] [address] [place] [address] Scheduled Procedures Name Priority Associated Diagnoses Date/Ti [...] D LEVEL ONCE IN A LIFETIME-USE SMARTSET# 00552 Completed 06/17/2023, 06/10/2022, 05/28/2021, Additional history exists [...] this encounter Medical Devices Implanted Type Area Superintendent Device Identifier Shelf Expiration Date Model / Serial / Lot Kyphon Hv-R Bone Cement Implanted:Qty: 1 on 08/17/2016 by Michael Smith MD at OR [facility] N/A: Spine Thoracic 03/19/2019 C01A / C01A / [id number] Cement Bone Lv G 1119-140-01 - [id number] Implanted:Qty: 1 on 06/04/2018 by Duc Kimble MD at OR [facility] Right: Knee [employer] 11/19/20201119-1 40-01 / / [id number] Cement Bone Lv G 1119-140-01 - [id number] Implanted:Qty: 1 on 06/04/2018 by Duc Kimble MD at OR [facility] Right: Knee [employer] 06/19/20201119-1 40-01 / / [id number] Persona The Personlized Knee System Vivacit-E Highly Crosslinked Polyethylene All-Poly Patella Cemented Implanted:Qty: 1 on 06/04/2018 by Duc Kimble MD at OR [facility] Right: Knee [employer] 06/19/2022 42-5402-0 00-35 / / [id number] Tibia Stem 5 Deg Rt Size F - [id number] Implanted:Qty: 1 on 06/04/2018 by Duc Kimble MD at OR [facility] Right: Knee [employer] 10/21/2027 42-5320-0 75-02 / / [id number] Persona The Personalized Knee System Femur Cemented Cr Standard Implanted:Qty: 1 on 06/04/2018 by Duc Kimble MD at OR [facility] Right: Knee [employer] 11/20/2027 42-5026-0 62-02 / / [id number] Persona The Personalized Knee System Vivacit-E Highly Crosslinked Polyethylene Articular Surface Medial Congruent Implanted:Qty: 1 on 06/04/2018 by Duc Kimble MD at OR [facility] Right: Knee [employer] 11/19/2022 42-5221-0 07-12 / / [id number] Device Watchman Flx 24mm - [id number] Implanted:Qty: 1 on 10/06/2022 by Austin Penaloza MD at CARD[facility]S [facility] [employer] : INTRV CARD [id number] 03/07/2025 [id number] / / [id number] Device Watchman Flx 27mm - [id number] Implanted:Qty: 1 on 10/06/2022 by Austin Penaloza MD at [facility] [employer] : INTRV CARD [id number] 08/07/2025 [id number] / / [id number] documented as of this encounter Visit Diagnoses Diagnosis Primary osteoarthritis of left knee- Primary Primary localized osteoarthrosis, lower leg Chronic pain of left knee Pain in joint, lower leg documented in this encounter Advance Directives Latest [...] the patient have Health Care Power of Paper Twister? No Care Teams Superintendent Of Schools Relationship Specialty Start Date End Date Nikunj Plascencia MD [address] [place] [address] PCP - General Family Medicine 10/31/19 documented as of this encounter
--- OUTSIDE RECORDS SUMMARY | 2023-07-29 04:04 | External Medical Summary | Summary of Care ---
Author Name Unknown Organization [facility] Address [address] [place] [address] Phone [phone] Care Team Providers Care Social Sciences Chair Name Role Phone Nikunj Plascencia MD Primary Care Provider [phone] Reason for Visit * Reason Comments Outpatient Testing Encounter Details Date Type Department Care Team (Late st Contact Info) Description 06/17/2023 12:30 PM EDT Laboratory Laboratory, [facility] [address] [place] [address] [facility] [address] [place] [address] Senile osteoporosis Allergies Active Allergy Reactions Criticality Noted Date Comments Egg Shells Nausea/vomiting Medium 06/16/2018 Other reaction(s): GI SYMPTOMS Egg Yolk High 11/29/2019 Other reaction(s): GI upset Ibuprofen Other (Please comment) Medium 07/30/2010 Stomach upset Morphine Edema face/lips/tongue High 08/28/2021 Other reaction(s): LEGS SWELL documented as of this encounter (statuses as of 06/17/2023) Medications Medication Sig Dispensed Refills Start Date [...] Informant: Patient, Reported on 04/03/2023 Saline Nasal [place] 0.65 % Nasal Solution ([place]) Q6H 0 06/06/2022 Active Clobetasol Propionate 0.05 [...] mgIndications:Senile osteoporosis 60 mg SC ONCE 06/19/2023 06/20/2023 Active documented as of this encounter (statuses as of 06/17/2023) Active Problems Problem Noted Date Diagnosed Date Renal stone 03/21/2023 Food insecurity 01/02/2023 Overview: Per [facility] Protocol Presence of Watchman left atrial appendage closu re device 12/19/2022 PAF (paroxysmal atrial fibrillation) 08/17/2022 Overview: Added automatically from request for surgery [id number] Nasal septal perforation 06/13/2022 Overview: Per ENT [...] as of this encounter (statuses as of 06/17/2023) Resolved Problems Problem Noted Date Diagnosed Date [...] 140/90 12/12/201111/09 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 07/30/2018 Overview: [place] palsy Tinea 06/27/2011 07/30/2018 Mixed urge and stress incontinence 12/15/2008 10/08/2019 ADVANCE DIRECTIVE INFORMATION 06/17/2004 10/08/2019 documented as of this encounter (statuses as of 06/17/2023) Immunizations Name Administration Dates Next Due COVID-19 mRNA, LNP-s, No Pre serve, 2-Dose Series (Core Stix) 10/05/2020,09/14/2020 Covid-19, Mrna, Lnp-s, Pf, B ivalent, 30 Mcg, IM, 12 yrs and above (Pfizer) 05/26/2022 Pneumococcal Conjugate Vacc, 13 Valent (Prevnar) 05/30/2016 Pneumococcal Conjugate Vacci ne, 20-valent ([id number]) 04/03/2023 Seasonal Influenza Virus Vac cine, Unspecified [...] No 06/04/2018 documented as of this encounter Plan of Treatment Upcoming Encounters Date Type Department Care Team (Late st Contact Info) Description 06/19/2023 1:30 PM EDT Nurse Only Rheumatology [place] [id number] [place] [address] Pf, Nurse Rheum [address] [place] [address] [place] [address] 06/22/2023 12:30 PM EDT Telemedicine Orthopaedics [facility] 132 [facility] [place] [address] PA-C [address] [place] [address] [place] [address] 06/27/2023 1:20 PM EDT Office Visit Family Practice [facility] 132 [place] [address] Nikunj Plascencia MD [address] [place] [address] 07/03/2023 2:00 PM EDT Office Visit Nephrology, [facility] [address] [facility] [place] [address] Geovanni Linder MD [address] [facility] [place] [address] 07/13/2023 2:30 PM EDT Office Visit Pharmacy, [facility] [address] [place] [address] [facility] [address] [place] [address] 08/23/2023 2:00 PM EDT Office Visit Podiatry [facility] [address] [place] [address] Eveline Layne, [address] [address] 09/27/2023 8:30 AM EDT Appointment Radiology, [address] [address] 09/27/2023 9:30 AM EDT Office Visit Urology, [place] [address] [place] [address] Luis Manuel Sandy MD [address] [place] [address] 12/01/2023 1:45 PM EDT Office Visit Dermatology [address] [address] Cyril Borges MD [address] [place] [address] 12/04/2023 1:00 PM EDT Cardiac Studies Cardiac Studies, [facility] [address] [place] [address] 12/20/2023 2:30 PM EDT Imaging Radiology, [address] [place] [address] 12/20/2023 3:20 PM EDT Office Visit Rheumatology [address] [place] [address] John Yoder MD [address] [place] [address] [place] [address] Pending Results Name Type Priority Associated Diagnoses Date /Time 25-HYDROXY VITAMIN D Lab Routine Senile osteoporosis 06/17/2023 12:29 PM EDT COMPREHENSIVE METABOLIC PANEL Lab Routine Senile osteoporosis 06/17/2023 12:29 PM EDT Scheduled Procedures Name Priority Associated Diagnoses Date/Ti [...] history exists Albumin/Creatinine Ratio 06/14/2023 06/13/2022, 02/20 GFR 10/29/2023 04/28/2023, 0210/2023, 12/07/2022, Additional history exists DXA Scan 12/01/2023 11/30/2021, 08/21, 08/29/2017, Additional history exists Colonoscopy 03/24/2026 03/24/2021, 08/22, 09/19/2018, Additional history exists Colorectal Cancer Screening 03/24/2026 Diabetes Screening 04/30/2026 05/01/2023, 0 04/28/2023, 04/03/2023, Additional history exists Lipid Panel 04/27/2028 04/28/2023, 10/2023, 01/11/2021, Additional history exists DTaP,Tdap,and Td Vaccines (3 - Td or Tdap) 01/06/2032 01/05/2022, 11/18/2011 Pap Smear Discontinued 08/05/2019, 07/21, 03/01/2010 RETIRED - COLONOSCOPY-EVERY 5 YRS AGES 18-100 Discontinued 03/24/2021, 09/19/2018, 09/19/2018, Additional history exists VITAMIN D LEVEL ONCE IN A LIFETIME-USE SMARTSET# 61842 Completed 06/10/2022, 05/28/2021, 06/20/2020, Additional history exists Influenza Vaccine (FLU shot) Completed 12/07/2022, 10/21/2021, 11/26/2020, Additional history exists Pneumococcal Vaccine: 65+ Years Completed 04/03/2023, 05/30/2016 GARDASIL-HPV IMMUNIZATION SERIES Aged Out No longer eligible based on patient's age to complete this topic Hepatitis B Aged Out No longer eligi ble based on patient's age to complete this topic MENINGOCOCCAL (MENACTRA/MENVEO) Aged Out No longer eligible based on patient's age to complete this topic documented as of this encounter Medical Devices Implanted Type Area Drier And Pulverizer Tender Device Identifier Shelf Expiration Date Model / Serial / Lot Kyphon Hv-R Bone Cement Implanted:Qty: 1 on 08/17/2016 by Michael Smith MD at OR [facility] [place] N/A: Spine Thoracic 03/19/2019 C01A / C01A / [id number] Cement Bone Lv G 1119-140-01 - [id number] Implanted:Qty: 1 on 06/04/2018 by Duc Kimble MD at OR [facility] Right: Knee [employer] 11/19/2020 00-1119-1 40-01 / / [id number] Cement Bone Lv G 1119-140-01 - [id number] Implanted:Qty: 1 on 06/04/2018 by Duc Kimble MD at OR [facility] Right: Knee [employer] 06/19/2020 00-1119-1 40-01 / / [id number] Persona The Personlized Knee System Vivacit-E Highly Crosslinked Polyethylene All-Poly Patella Cemented Implanted:Qty: 1 on 06/04/2018 by Duc Kimble MD at OR [facility] Right: Knee [employer] 06/19/2022 42-5402-0 00-35 / / [id number] Tibia Stem 5 Deg Rt Size F - [id number] Implanted:Qty: 1 on 06/04/2018 by Duc Kimble MD at OR [facility] Right: Knee [employer] 10/21/2027 42-5320-0 75-02 / / [id number] Persona The Personalized Knee System Femur Cemented Cr Standard Implanted:Qty: 1 on 06/04/2018 by Duc Kimble MD at OR [facility] Right: Knee [employer] 11/20/2027 42-5026-0 62-02 / / [id number] Persona The Personalized Knee System Vivacit-E Highly Crosslinked Polyethylene Articular Surface Medial Congruent Implanted:Qty: 1 on 06/04/2018 by Duc Kimble MD at OR [facility] Right: Knee [employer] 11/19/2022 42-5221-0 07-12 / / [id number] Device Watchman Flx 24mm - [id number] Implanted:Qty: 1 on 10/06/2022 by Austin Penaloza MD at [facility] LABS [facility] [place] [employer] : INTRV CARD [id number] 03/07/2025 [id number] 40 / / [id number] Device Watchman Flx 27mm - [id number] Implanted:Qty: 1 on 10/06/2022 by Austin Penaloza MD at [facility] [place] [employer] : INTRV CARD [id number] 08/07/2025 [id number] 70 / / [id number] documented as of this encounter Visit Diagnoses Diagnosis Senile osteoporosis documented in this encounter Advance Directives Latest [...] the patient have Health Care Power of Beef Specialist? No Care Teams Social Sciences Chair Relationship Specialty Start Date End Date Nikunj Plascencia MD [address] [place] [address] PCP - General Family Medicine 10/31/19 documented as of this encounter
--- OUTSIDE RECORDS SUMMARY | 2023-07-29 04:04 | External Medical Summary ---
Author Name Unknown Address Unknown Organization K01:[facility] [place] - [address] [place] [address] Laboratory Report Ordering Provider Test Date Status JAQUELINE SIMMONS 06/17/2023 12:29:58 Final Deficient: <20 ng/mL
Ins ufficient: 20-29 ng/mL
Recommended/Optimum:30-50 ng/mL

Vitamin D intoxication is rare. If suspicious of Vitamin D toxicity, evaluation of serum Calcium and PTH is recommended. Observation Date Value Abnormality Reference (Units ) Status 25-OH Vitamin D total 06/17/2023 12:29:58 56 >19 (ng/mL) Final Performing Location [facility] [place] - [address] [place] [address]
--- OUTSIDE RECORDS SUMMARY | 2023-07-29 04:04 | External Medical Summary | Summary of Care ---
Author Name Unknown Organization [facility] Address [address] [place] [address] Phone [phone] Care Team Providers Care Field Underwriter Name Role Phone Nikunj Plascencia MD Primary Care Provider [phone] Reason for Visit * Reason Onset Date Comments Medication Refill 06/02/2023 Encounter Details Date Type Department Care Team (Late st Contact Info) Description 06/02/2023 Refill Dermatology [facility] [address] [place] [address] Cyril Borges MD [address] [place], [place] [id number] Allergies Active Allergy Reactions Criticality Noted Date Comments Egg Shells Nausea/vomiting Medium 06/16/2018 Other reaction(s): GI SYMPTOMS Egg Yolk High 11/29/2019 Other reaction(s): GI upset Ibuprofen Other (Please comment) Medium 07/30/2010 Stomach upset Morphine Edema face/lips/tongue High 08/28/2021 Other reaction(s): LEGS SWELL documented as of this encounter (statuses as of 06/02/2023) Medications Medication Sig Dispensed Refills Start Date [...] Informant: Patient, Reported on 04/03/2023 Saline Nasal [place] 0.65 % Nasal Solution ([place]) Q6H 0 06/06/2022 Active Clobetasol Propionate 0.05 % External Ointment (Temovate) Apply thin film to affected area at body twice daily as needed for up to 2 weeks at a time. Not for use at face, armpits, groin. 60 g 2 09/07/2022 Active SUMAtriptan Succinate 25 MG Oral Tablet (Imitrex) Take 2 tablets at onset of migraine and one tablet every 2 hours as needed, not more than 5 tablets in 24 hours 16 Tablet 10 09/09/2022 Active Aspirin 81 MG Oral Tablet Chewable [...] the morning. 60 Capsule 5 05/23/2023 Active Sulfamethoxazole-Tr imethoprim 800-160 MG Oral Tablet (Bactrim DS) Take 1 Tablet by mouth in the morning and 1 Tablet before bedtime. Use as directed.. 28 Tablet 0 05/25/2023 Active Tacrolimus 0.1 % External Ointment Apply thin film to affected areas at face twice daily as needed. 60 g 2 06/02/2023 Active Tacrolimus 0.1 % External Ointment Apply thin film to affected areas at face twice daily as needed. 60 g 2 01/30/2023 Discontinu ed(Refill) Hospital, Clinic, or Other Facility Administered Medication Ordered Dose Route Frequency Start Date End Date Status atropine sulfate inj 0.4 mgIndications:Chest pain, unspecified type 0.4 mg IV PUSH PRN 01/29/2021 Active documented as of this encounter (statuses as of 06/02/2023) Active Problems Problem Noted Date Diagnosed Date Renal stone 03/21/2023 Food insecurity 01/02/2023 Overview: Per [facility] Protocol Presence of Watchman left atrial appendage closu re device 12/19/2022 PAF (paroxysmal atrial fibrillation) 08/17/2022 Overview: Added automatically from request for surgery [id number] Nasal septal perforation 06/13/2022 Overview: Per ENT [...] as of this encounter (statuses as of 06/02/2023) Resolved Problems Problem Noted Date Diagnosed Date [...] 140/90 12/12/201111/09 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 07/30/2018 Overview: [place] palsy Tinea 06/27/2011 07/30/2018 Mixed urge and stress incontinence 12/15/2008 10/08/2019 ADVANCE DIRECTIVE INFORMATION 06/17/2004 10/08/2019 documented as of this encounter (statuses as of 06/02/2023) Immunizations Name Administration Dates Next Due COVID-19 mRNA, LNP-s, No Pre serve, 2-Dose Series (Speaking[employer]) 10/05/2020,09/14/2020 Covid-19, Mrna, Lnp-s, Pf, B ivalent, 30 Mcg, IM, 12 yrs and above (SpeakingPal) 05/26/2022 Pneumococcal Conjugate Vacc, 13 Valent (Prevnar) 05/30/2016 Pneumococcal Conjugate Vacci ne, 20-valent ([id number]) 04/03/2023 Seasonal Influenza Virus Vac cine, Unspecified [...] encounter Miscellaneous Notes * Telephone Encounter - Cyril Borges MD - 06/02/2023 4:43 PM EDT Signed Prescriptions: Disp Refills Tacrolimus 0.1 % External Ointment 60 g 2 Sig: Apply thin film to affected areas at face twice daily as needed.Authorizing Provider: CYRIL BORGES documented in this encounter Plan of Treatment Upcoming Encounters Date Type Department Care Team (Late st Contact Info) Description 06/07/2023 12:45 PM EDT Procedure Only Urology, [place] [address] [place] [address] Luis Manuel Sandy MD [address] [place] [address] 06/07/2023 2:30 PM EDT Office Visit Dermatology [facility] [address] [place] [address] Cyril Borges MD [address] [place] [address] 06/14/2023 1:00 PM EDT Office Visit Cosmetic Surgery & Aesthetics [facility] [address] [place] [address] Conor Venegas PA-C [address] [place] [address] 06/19/2023 1:30 PM EDT Nurse Only Rheumatology [address] [address] Pf, Nurse Rheum [address] [place] [address] 06/22/2023 12:30 PM EDT Telemedicine Orthopaedics [facility] 132 [facility] [place] [address] PA-C [address] [place] [address] [place] [id number] 06/27/2023 1:20 PM EDT Office Visit Family Practice [facility] 132 [facility] [place] [address] Nikunj Plascencia MD 132 [facility] [place] [address] 07/03/2023 2:00 PM EDT Office Visit Nephrology, [facility] [address] [facility] [place] [address] Geovanni Linder MD [address] [facility] [place] [address] 07/13/2023 2:30 PM EDT Office Visit Pharmacy, [facility] 132 [place] [address] [facility] 132 [place] [address] 08/23/2023 2:00 PM EDT Office Visit Podiatry [facility] 132 [place] [address] Eveline Layne, [facility] [address] [place] [address] 09/27/2023 8:30 AM EDT Appointment Radiology, [place] [address] [place] [address] 09/27/2023 9:30 AM EDT Office Visit Urology, [place] [address] [place] [address] Luis Manuel Sandy MD [address] [place] [address] 12/04/2023 1:00 PM EDT Cardiac Studies Cardiac Studies, [facility] [address] 12/20/2023 2:30 PM EDT Imaging Radiology, [place] [address] [facility] [place] [address] 12/20/2023 3:20 PM EDT Office Visit Rheumatology [place] [address] [facility] [place] [address] John Yoder MD [address] [place] [address] [place] [address] Scheduled Procedures Name Priority Associated Diagnoses Date/Ti me ROBOTIC ARTHROPLASTY KNEE TOTAL Knee osteoarthritis COLONOSCOPY FLEXIBLE PROXIMA L DIAGNOSTIC Recall History of colonic polyps Health Maintenance Due Date Last Done Comments Zoster Vaccines (1 of 2) 1976 HOME BP CUFF VALIDATION YEARLY 04/02/2020 04/02/2019 COVID-19 Vaccine ( season) 2022 05/26/2022, 10/05/2020, 09/14/2020 Mammogram 11/30/2022 11/30/2021, 05/22, 06/10/2021, Additional history exists Albumin/Creatinine Ratio 06/14/2023 06/13/2022, 02/20 GFR 10/29/2023 04/28/2023, 0 10/2023, 12/07/2022, Additional history exists DXA Scan 12/01/2023 11/30/2021, 08/21, 08/29/2017, Additional history exists COLONOSCOPY-EVERY 5 YRS AGES 18-100 03/24/2026 03/24/2021, 09/19/2018, 09/19/2018, Additional history exists Diabetes Screening 04/30/2026 05/01/2023, 0 04/28/2023, 04/03/2023, Additional history exists Lipid Panel 04/27/2028 04/28/2023, 020 10/2023, 01/11/2021, Additional history exists DTaP,Tdap,and Td Vaccines (3 - Td or Tdap) 01/06/2032 01/05/2022, 11/18/2011 Pap Smear Discontinued 08/05/2019, 07/21, 03/01/2010 Fecal Occult Blood Test Discontinued 03/10/19, 03/10/2021, 03/10/2021, Additional history exists Colonoscopy Discontinued 03/24/2021, 08/22, 09/19/2018, Additional history exists Colorectal Cancer Screening Discontinued VITAMIN D LEVEL ONCE IN A LIFETIME-USE SMARTSET# 95671 Completed 06/10/2022, 05/28/2021, 06/20/2020, Additional history exists Influenza Vaccine (FLU shot) Completed 12/07/2022, 10/21/2021, 11/26/2020, Additional history exists Pneumococcal Vaccine: 65+ Years Completed 04/03/2023, 05/30/2016 Cologuard Discontinued GARDASIL-HPV IMMUNIZATION SERIES Aged Out No longer eligible based on patient's age to complete this topic Hepatitis B Aged Out No longer eligi ble based on patient's age to complete this topic MENINGOCOCCAL (MENACTRA/MENVEO) Aged Out No longer eligible based on patient's age to complete this topic Sigmoidoscopy Discontinued documented as of this encounter Medical Devices Implanted Type Area Flame Gouger Device Identifier Shelf Expiration Date Model / Serial / Lot Kyphon Hv-R Bone Cement Implanted:Qty: 1 on 08/17/2016 by Michael Smith MD at [place] [facility] [place] N/A: Spine Thoracic 03/19/2019 C01A / C01A / [id number] Cement Bone Lv G 1119-140-01 - [id number] Implanted:Qty: 1 on 06/04/2018 by Duc Kimble MD at OR [facility] Right: Knee [employer] 11/19/2020-1119-1 40-01 / / [id number] Cement Bone Lv G 1119-140-01 - [id number] Implanted:Qty: 1 on 06/04/2018 by Duc Kimble MD at OR [facility] Right: Knee [employer] 06/19/2020-1119-1 40-01 / / [id number] Persona The Personlized Knee System Vivacit-E Highly Crosslinked Polyethylene All-Poly Patella Cemented Implanted:Qty: 1 on 06/04/2018 by Duc Kimble MD at OR [facility] Right: Knee [employer] 06/19/2022 42-5402-0 00-35 / / [id number] Tibia Stem 5 Deg Rt Size F - [id number] Implanted:Qty: 1 on 06/04/2018 by Duc Kimble MD at OR [facility] Right: Knee [employer] 10/21/2027 42-5320-0 75-02 / / [id number] Persona The Personalized Knee System Femur Cemented Cr Standard Implanted:Qty: 1 on 06/04/2018 by Duc Kimble MD at OR [facility] Right: Knee [employer] 11/20/2027 42-5026-0 62- [id number] Persona The Personalized Knee System Vivacit-E Highly Crosslinked Polyethylene Articular Surface Medial Congruent Implanted:Qty: 1 on 06/04/2018 by Duc Kimble MD at OR [facility] Right: Knee [employer] 11/19/2022 42-5221-0 07- [id number] Device Watchman Flx 24mm - [id number] Implanted:Qty: 1 on 10/06/2022 by Austin Penaloza MD at [facility] [place] [employer] : INTRV CARD [id number] 03/07/2025 [id number] 40 / / [id number] Device Watchman Flx 27mm - [id number] Implanted:Qty: 1 on 10/06/2022 by Austin Penaloza MD at [facility] [place] [employer] : INTRV CARD [id number] 08/07/2025 [id number] 70 / / [id number] documented as of this encounter Advance Directives [...] the patient have Health Care Power of Smoke Jumper Supervisor? No Care Teams Field Underwriter Relationship Specialty Start Date End Date Nikunj Plascencia MD [address] [place] [address] PCP - General Family Medicine 10/31/19 documented as of this encounter
--- OUTSIDE RECORDS SUMMARY | 2023-07-29 04:04 | External Medical Summary ---
Author Name Unknown Address Unknown Organization K0G:LABORATORY [place] [address] - [address] [place] [address] Laboratory Report Ordering Provider Test Date Status TROYJAQUELINE 06/17/2023 12:29:58 Final Observation Date Value Abnormality Reference (Units ) Status BUN 06/17/2023 12:29:58 41 Above high normal 6-20 (mg/dL) Final Creatinine 06/17/2023 12:29:58 1.5 Above high normal 0.5-1.0 (mg/dL) Final Glomerular filtration rate/1.73 sq M.predicted [Volume Rate/Area] in Serum, Plasma or Blood by Creatinine-based formula (CKD-EPI) 06/17/2023 12:29:58 39 Below low normal >=60 (mL/min) Final eGFR is calculated based on the CKD-EPI 2020 equation Sodium 06/17/2023 12:29:58 142 135-146 (m mol/L) Final Potassium 06/17/2023 12:29:58 5.1 3.5-5.1 (m mol/L) Final Cl 06/17/2023 12:29:58 108 Above high normal 98 -107 (mmol/L) Final CO2 06/17/2023 12:29:58 24 22-32 (mmo l/L) Final Anion gap 06/17/2023 12:29:58 10 7-15 (mmol /L) Final Glucose 06/17/2023 12:29:58 92 70-120 (mg /dL) Final Albumin 06/17/2023 12:29:58 4.0 3.8-5.0 (g /dL) Final AST (Aspartate aminotransferase) 06/17/2023 12:29:58 21 10-35 (U/L) Fin al Alk Phos 06/17/2023 12:29:58 81 35-130 (U/ L) Final Bilirubin, Total 06/17/2023 12:29:58 0.2 <=1 .2 (mg/dL) Final Calcium 06/17/2023 12:29:58 9.9 8.4-10.2 ( mg/dL) Final Protein 06/17/2023 12:29:58 6.9 6.0-8.3 (g /dL) Final ALT (Alanine aminotransferase) 06/17/2023 12:29:58 11 10-35 (U/L) Felton aguilera Performing Location LABORATORY [place] [address] - [address] [place] [address]
--- OUTSIDE RECORDS SUMMARY | 2023-07-29 04:04 | External Medical Summary | Summary of Care ---
Author Name Unknown Organization [facility] Address [address] [place] [address] Phone [phone] Care Team Providers Care Fuel Handler Name Role Phone Nikunj Plascencia MD Primary Care Provider [phone] Reason for Visit * Reason Onset Date Comments Order Request 06/12/2023 Labs / prolia Encounter Details Date Type Department Care Team (Late st Contact Info) Description 06/12/2023 Telephone Rheumatology [facility] [address] [facility] [address] John Yoder MD [address] [employer] [facility] [id number] Order Request (Labs / prolia) Allergies Active Allergy Reactions Criticality Noted Date Comments Egg Shells Nausea/vomiting Medium 06/16/2018 Other reaction(s): GI SYMPTOMS Egg Yolk High 11/29/2019 Other reaction(s): GI upset Ibuprofen Other (Please comment) Medium 07/30/2010 Stomach upset Morphine Edema face/lips/tongue High 08/28/2021 Other reaction(s): LEGS SWELL documented as of this encounter (statuses as of 06/12/2023) Medications Medication Sig Dispensed Refills Start Date [...] Informant: Patient, Reported on 04/03/2023 Saline Nasal [place] 0.65 % Nasal Solution ([place]) Q6H 0 06/06/2022 Active Clobetasol Propionate 0.05 [...] as of this encounter (statuses as of 06/12/2023) Active Problems Problem Noted Date Diagnosed Date Renal stone 03/21/2023 Food insecurity 01/02/2023 Overview: Per [facility] Protocol Presence of Watchman left atrial appendage closu re device 12/19/2022 PAF (paroxysmal atrial fibrillation) 08/17/2022 Overview: Added automatically from request for surgery [id number] Nasal septal perforation 06/13/2022 Overview: Per ENT [...] as of this encounter (statuses as of 06/12/2023) Resolved Problems Problem Noted Date Diagnosed Date [...] 140/90 12/12/201111/09 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 07/30/2018 Overview: [place] palsy Tinea 06/27/2011 07/30/2018 Mixed urge and stress incontinence 12/15/2008 10/08/2019 ADVANCE DIRECTIVE INFORMATION 06/17/2004 10/08/2019 documented as of this encounter (statuses as of 06/12/2023) Immunizations Name Administration Dates Next Due COVID-19 mRNA, LNP-s, No Pre serve, 2-Dose Series ([employer]) 10/05/2020,09/14/2020 Covid-19, Mrna, Lnp-s, Pf, B ivalent, 30 Mcg, IM, 12 yrs and above ([employer]aca) 05/26/2022 Pneumococcal Conjugate Vacc, 13 Valent (Prevnar) 05/30/2016 Pneumococcal Conjugate Vacci ne, 20-valent ([id number]) 04/03/2023 Seasonal Influenza Virus Vac cine, Unspecified [...] encounter Miscellaneous Notes * Telephone Encounter - John Yoder MD - 06/12/2023 3:19 PM EDT signed * Telephone Encounter - Priscila Fernando LPN - 06/12/2023 3:11 PM EDT Chart reviewed. Patient has been seen within the last 12 months by a Rheumatology provider. Prolia authorization approved and updated in referral. Last injection has been > 6 months and 1 day. CAMorders pended for signature. Pt needs updated lab work completed, orders pended, pt notified and verbalized understanding documented in this encounter Plan of Treatment Upcoming Encounters Date Type Department Care Team (Late st Contact Info) Description 06/19/2023 1:30 PM EDT Nurse Only Rheumatology [facility] [address] [facility] [place] [address] Pf, Nurse Rheum [address] [facility] [place] [address] 06/22/2023 12:30 PM EDT Telemedicine Orthopaedics [facility] [address] [facility] [place] [address] PA-C [address] [place] [address] 06/27/2023 1:20 PM EDT Office Visit Family Practice [facility] 132 [facility] [place] [address] Nikunj Plascencia MD 132 [facility] [place] [address] 07/03/2023 2:00 PM EDT Office Visit Nephrology, [facility] [address] [place] [address] Geovanni Linder MD [address] [place] [address] 07/13/2023 2:30 PM EDT Office Visit Pharmacy, [facility] [address] [facility] [place] [address] [facility] 132 [facility] [place] [address] 08/23/2023 2:00 PM EDT Office Visit Podiatry [facility] [address] [facility] [place] [address] Eveline Layne, DPM [address] [place] [id number] 09/27/2023 8:30 AM EDT Appointment Radiology, [place] [address] [place] [address] 09/27/2023 9:30 AM EDT Office Visit Urology, [place] [address] [place] [address] Luis Manuel Sandy MD [address] [place] [address] 12/01/2023 1:45 PM EDT Office Visit Dermatology [address] [address] Cyril Borges MD [address] [place] [address] 12/04/2023 1:00 PM EDT Cardiac Studies Cardiac Studies, [facility] [address] [place] [address] 12/20/2023 2:30 PM EDT Imaging Radiology, [address] [address] 12/20/2023 3:20 PM EDT Office Visit Rheumatology [address] [place] [address] John Yoder MD [address] [place] [address] [place] [address] Scheduled Orders Name Type Priority Associated Diagnoses Orde r Schedule 25-HYDROXY VITAMIN D Lab Routine Senile osteoporosis Expected: 06/12/2023, Expires: 06/11/2024 COMPREHENSIVE METABOLIC PANEL Lab Routine Senile osteoporosis Expected: 06/12/2023, Expires: 06/11/2024 Scheduled Procedures Name Priority Associated Diagnoses Date/Ti [...] Additional history exists Lipid Panel 04/27/2028 04/28/2023, 0 10/2023, 01/11/2021, Additional history exists DTaP,Tdap,and Td Vaccines (3 - Td or Tdap) 01/06/2032 01/05/2022, 11/18/2011 Pap Smear Discontinued 08/05/2019, 07/21, 03/01/2010 Fecal Occult Blood Test Discontinued 03/10/19, 03/10/2021, 03/10/2021, Additional history exists Colonoscopy Discontinued 03/24/2021, 08/22, 09/19/2018, Additional history exists Colorectal Cancer Screening Discontinued VITAMIN D LEVEL ONCE IN A LIFETIME-USE SMARTSET# 28507 Completed 06/10/2022, 05/28/2021, 06/20/2020, Additional history exists [...] this encounter Medical Devices Implanted Type Area Machine Assembler For Puller Over Device Identifier Shelf Expiration Date Model / Serial / Lot Kyphon Hv-R Bone Cement Implanted:Qty: 1 on 08/17/2016 by Michael Smith MD at OR [facility] N/A: Spine Thoracic 03/19/2019 C01A / C01A / [id number] Cement Bone Lv G 1119-140-01 - [id number] Implanted:Qty: 1 on 06/04/2018 by Duc Kimble MD at OR [facility] Right: Knee [employer] 11/19/20201119-1 40-01 / / [id number] Cement Bone Lv G 1119-140-01 - [id number] Implanted:Qty: 1 on 06/04/2018 by Duc Kimble MD at OR [facility] Right: Knee [employer] 06/19/20201119-1 40- / / [id number] Persona The Personlized Knee System Vivacit-E Highly Crosslinked Polyethylene All-Poly Patella Cemented Implanted:Qty: 1 on 06/04/2018 by Duc Kimble MD at OR [facility] Right: Knee [employer] 06/19/2022 42-5402-0 00-35 / / [id number] Tibia Stem 5 Deg Rt Size F - [id number] Implanted:Qty: 1 on 06/04/2018 by Duc Kimble MD at OR [facility] Right: Knee [employer] 10/21/2027 42-5320-0 75-02 / / [id number] Persona The Personalized Knee System Femur Cemented Cr Standard Implanted:Qty: 1 on 06/04/2018 by Duc Kimble MD at OR [facility] Right: Knee [employer] 11/20/2027 42-5026-0 62-02 / / [id number] Persona The Personalized Knee System Vivacit-E Highly Crosslinked Polyethylene Articular Surface Medial Congruent Implanted:Qty: 1 on 06/04/2018 by Duc Kimble MD at OR [facility] Right: Knee [employer] 11/19/2022 42-5221-0 07-12 / / [id number] Device Watchman Flx 24mm - [id number] Implanted:Qty: 1 on 10/06/2022 by Austin Penaloza MD at [facility] [employer] : INTRV CARD [id number] 03/07/2025 [id number] 40 / / [id number] Device Watchman Flx 27mm - [id number] Implanted:Qty: 1 on 10/06/2022 by Austin Penaloza MD at [facility] [employer] : INTRV CARD [id number] 08/07/2025 [id number] 70 / / [id number] documented as of this encounter Visit Diagnoses Diagnosis Senile osteoporosis- Primary documented in this encounter Advance Directives [...] the patient have Health Care Power of Burnt Lime Drawer? No Care Teams Fuel Handler Relationship Specialty Start Date End Date Nikunj Plascencia MD [address] [place] [address] PCP - General Family Medicine 10/31/19 documented as of this encounter
--- OUTSIDE RECORDS SUMMARY | 2023-07-29 04:04 | External Medical Summary | Summary of Care ---
Author Name Unknown Organization [facility] Address [address] [place] [address] Phone [phone] Care Team Providers Care Bottling Machine Operator Name Role Phone Lambert Acuña MD Primary Care Provider [phone] [phone] Reason for Visit * Reason Onset Date Comments Medication Refill 06/03/2023 Encounter Details Date Type Department Care Team (Late st Contact Info) Description 06/03/2023 Refill Family Practice [facility] [address] [facility] [place] [address] Lambert Acuña MD [address] [facility] [place] [address] Allergies Active Allergy Reactions Criticality Noted Date Comments Egg Shells Nausea/vomiting Medium 06/16/2018 Other reaction(s): GI SYMPTOMS Egg Yolk High 11/29/2019 Other reaction(s): GI upset Ibuprofen Other (Please comment) Medium 07/30/2010 Stomach upset Morphine Edema face/lips/tongue High 08/28/2021 Other reaction(s): LEGS SWELL documented as of this encounter (statuses as of 06/05/2023) Medications Medication Sig Dispensed Refills Start Date [...] Informant: Patient, Reported on 04/03/2023 Saline Nasal [place] 0.65 % Nasal Solution ([place]) Q6H 0 06/06/2022 Active Clobetasol Propionate 0.05 [...] 24 hours 16 Tablet 10 06/05/2023 Active SUMAtriptan Succinate 25 MG Oral Tablet (Imitrex) Take 2 tablets at onset of migraine and one tablet every 2 hours as needed, not more than 5 tablets in 24 hours 16 Tablet 10 09/09/2022 Discontinu ed(Refill) Hospital, Clinic, or Other Facility Administered Medication Ordered Dose Route Frequency Start Date End Date Status atropine sulfate inj 0.4 mgIndications:Chest pain, unspecified type 0.4 mg IV PUSH PRN 01/29/2021 Active documented as of this encounter (statuses as of 06/05/2023) Active Problems Problem Noted Date Diagnosed Date Renal stone 03/21/2023 Food insecurity 01/02/2023 Overview: Per [facility] Protocol Presence of Watchman left atrial appendage closu re device 12/19/2022 PAF (paroxysmal atrial fibrillation) 08/17/2022 Overview: Added automatically from request for surgery [id number] Nasal septal perforation 06/13/2022 Overview: Per ENT [...] as of this encounter (statuses as of 06/05/2023) Resolved Problems Problem Noted Date Diagnosed Date [...] 140/90 12/12/201111/09 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 07/30/2018 Overview: [place] palsy Tinea 06/27/2011 07/30/2018 Mixed urge and stress incontinence 12/15/2008 10/08/2019 ADVANCE DIRECTIVE INFORMATION 06/17/2004 10/08/2019 documented as of this encounter (statuses as of 06/05/2023) Immunizations Name Administration Dates Next Due COVID-19 mRNA, LNP-s, No Pre serve, 2-Dose Series ([employer]) 10/05/2020,09/14/2020 Covid-19, Mrna, Lnp-s, Pf, B ivalent, 30 Mcg, IM, 12 yrs and above ([employer]) 05/26/2022 Pneumococcal Conjugate Vacc, 13 Valent (Prevnar) 05/30/2016 Pneumococcal Conjugate Vacci ne, 20-valent ([id number]) 04/03/2023 Seasonal Influenza Virus Vac cine, Unspecified [...] encounter Miscellaneous Notes * Telephone Encounter - Lambert Acuña MD - 06/05/2023 4:31 PM EDTSigned Prescriptions: Disp Refills SUMAtriptan Succinate 25 MG Oral Tablet (I*16 Tab*10 Sig: Take 2 tablets at onset of migraine and one tablet every 2 hours as needed, not more than 5 tablets in 24 hours Authorizing Provider: LAMBERT ACUÑA * Telephone Encounter - Juan J Stern, [facility] - 06/05/2023 4:16 PM EDT Pending Prescriptions: Disp Refills SUMAtriptan Succinate 25 MG Oral Tablet (I*16 Tab*10 Sig: Take 2 tablets at onset of migraine and one tablet every 2 hours as needed, not more than 5 tablets in 24 hours * Telephone Encounter - Juan J Stern [facility] - 06/05/2023 4:15 PM EDT Unable to authorize medication refills for pended medication(s) at this time. Part of the protocol criteria used for refill authorization was not satisfied. Patient has coronary artery disease per Cardiology. Please approve if appropriate. Thank you, Juan J Stern, PharmD Clinical Pharmacist [facility] 06/05/23 4:15 PM [phone] * Telephone Encounter - Juan J Stern [facility] - 06/05/2023 4:12 PM EDT Pending Prescriptions: Disp Refills SUMAtriptan Succinate 25 MG Oral Tablet (*16 Tab*10 Sig: Take 2 tablets at onset of migraine and one tablet every 2 hours as needed, not more than 5 tablets in 24 hours Last Visit: 12/19/2022 (in office), 03/27/2020 (telemedicine) Next Visit: 06/27/2023 If no future appointments scheduled, and last appointment is greater than a year ago, please schedule patient for a follow-up appointment Last date the medication was ordered: 09/09/2022 Pharmacy: [id number] [address] [facility] Is this request for a controlled substance? No Urine Drug Screen: Results for orders placed or performed in visit on 10/21/21 PAIN MANAGEMENT DRUG PANEL, URINE W/ INTERPRETATION Result Value Compliance Interpretation Based on the medication information provided and obtained from [facility]: The positive oxycodone screening result is [...] Results Component Value Date/Time CREAT 1.5 (H) 04/28/2023 11:06 AM CREAT 1.3 (H) 01/07/2020 11:40 AM POTASSIUM 5.0 04/28/2023 11:06 AM POTASSIUM 4.9 01/07/2020 11:40 AM TSH 2.37 01/11/2021 03:52 PM TSH 2.99 12/06/2019 09:30 AM LDLCALC 47 04/28/2023 11:06 AM LDLCALC 33 12/06/2019 09:30 AM LDLDIRECT NOT APPLICABLE 12/06/2019 09:30 AM ALT 14 03/31/2023 09:17 AM ALT 9 (L) 12/06/2019 09:30 AM HGBA1C 5.3 06/20/2020 01:23 PM HGBA1C 5.1 2018 12:11 PM documented in this encounter Plan of Treatment Upcoming Encounters Date Type Department Care Team (Late st Contact Info) Description 06/07/2023 12:45 PM EDT Procedure Only Urology, [place] [address] [place] [address] Luis Manuel Sandy MD [address] [place] [address] 06/07/2023 2:30 PM EDT Office Visit Dermatology [facility] [address] [place] [address] Cyril Borges MD [address] [place] [address] 06/14/2023 1:00 PM EDT Office Visit Cosmetic Surgery & Aesthetics [facility] [address] [place] [address] Conor Venegas PA-C [address] [place] [address] 06/19/2023 1:30 PM EDT Nurse Only Rheumatology [place] [address] [facility] [place] [address] Pf, Nurse Rheum [facility]0 [place] [address] 06/22/2023 12:30 PM EDT Telemedicine Orthopaedics [facility] 132 [facility] [place] [address] PA-C [address] [place] [address] 06/27/2023 1:20 PM EDT Office Visit Family Practice [facility] 132 [place] [address] Lambert Acuña MD 132 [facility] [place] [address] 07/03/2023 2:00 PM EDT Office Visit Nephrology, [facility] [address] [place] [address] Geovanni Linder MD [address] [facility] [place], [place] [address] 07/13/2023 2:30 PM EDT Office Visit Pharmacy, [facility] 132 [place] [address] [facility] 132 [place] [address] 08/23/2023 2:00 PM EDT Office Visit Podiatry [facility] 132 [place] [address] Eveline Layne, M [address] [place] [address] 09/27/2023 8:30 AM EDT Appointment Radiology, [place] [address] [place] [address] 09/27/2023 9:30 AM EDT Office Visit Urology, [place] [address] [place] [address] Luis Manuel Sandy MD [address] [place] [address] 12/04/2023 1:00 PM EDT Cardiac Studies Cardiac Studies, [facility] [address] [place] [address] 12/20/2023 2:30 PM EDT Imaging Radiology, [facility] [address] [facility] [place] [address] 12/20/2023 3:20 PM EDT Office Visit Rheumatology [facility] [address] [place] [address] John Yoder MD [address] [place], [place] [address] Scheduled Procedures Name Priority Associated Diagnoses Date/Ti [...] Ratio 06/14/2023 06/13/2022, 02/20 GFR 10/29/2023 04/28/2023, 020 10/2023, 12/07/2022, Additional history exists DXA Scan [...] D LEVEL ONCE IN A LIFETIME-USE SMARTSET# 52570 Completed 06/10/2022, 05/28/2021, 06/20/2020, Additional history exists [...] this encounter Medical Devices Implanted Type Area Community Manager Device Identifier Shelf Expiration Date Model / Serial / Lot Kyphon Hv-R Bone Cement Implanted:Qty: 1 on 08/17/2016 by Michael Smith MD at OR [facility] N/A: Spine Thoracic 03/19/2019 C01A / C01A / [id number] Cement Bone Lv G 1119-140-01 - [id number] Implanted:Qty: 1 on 06/04/2018 by Duc Kimble MD at OR [facility] Right: Knee [employer] 11/19/2020-1119-1 40- / / [id number] Cement Bone Lv G 1119-140-01 - [id number] Implanted:Qty: 1 on 06/04/2018 by Duc Kimble MD at OR [facility] Right: Knee [employer] 06/19/2020-1119-1 40- / / [id number] Persona The Personlized Knee System Vivacit-E Highly Crosslinked Polyethylene All-Poly Patella Cemented Implanted:Qty: 1 on 06/04/2018 by Duc Kimble MD at OR [facility] Right: Knee [employer] 06/19/2022 42-5402-0 00 / / [id number] Tibia Stem 5 Deg Rt Size F - [id number] Implanted:Qty: 1 on 06/04/2018 by Duc Kimble MD at OR [facility] Right: Knee [employer] 10/21/2027 42-5320-0 75-02 / / [id number] Persona The Personalized Knee System Femur Cemented Cr Standard Implanted:Qty: 1 on 06/04/2018 by Duc Kimble MD at OR [facility] Right: Knee [employer] 11/20/2027 42-5026-0 62-02 / / [id number] Persona The Personalized Knee System Vivacit-E Highly Crosslinked Polyethylene Articular Surface Medial Congruent Implanted:Qty: 1 on 06/04/2018 by Duc Kimble MD at OR [facility] Right: Knee [employer] 11/19/2022 42-5221-0 07-12 / / [id number] Device Watchman Flx 24mm - [id number] Implanted:Qty: 1 on 10/06/2022 by Austin Penaloza MD at [facility] [employer] : INTRV CARD [id number] 03/07/2025 [id number] 40 / / [id number] Device Watchman Flx 27mm - [id number] Implanted:Qty: 1 on 10/06/2022 by Austin Penaloza MD at [facility] [employer] : INTRV CARD [id number] 08/07/2025 [id number] 70 / / [id number] documented as of this encounter Advance Directives [...] the patient have Health Care Power of Index Editor? No Care Teams Bottling Machine Operator Relationship Specialty Start Date End Date Lambert Acuña MD [address] [place] [address] PCP - General Family Medicine 10/31/19 documented as of this encounter
--- OUTSIDE RECORDS SUMMARY | 2023-07-29 04:04 | External Medical Summary | Summary of Care ---
Author Name Unknown Organization [facility] Address [address] [place] [address] Phone [phone] Care Team Providers Care Engineering Technology Instructor Name Role Phone Lambert Palscencia MD Primary Care Provider [phone] Reason for Visit * Reason Comments Cystoscopy Stent removal Encounter Details Date Type Department Care Team (Late st Contact Info) Description 06/07/2023 12:45 PM EDT Procedure Only Urology, [place] [address] [place] [address] Luis Manuel Sandy MD [address], [place] [id number] Ureteral stone* Allergies Active Allergy Reactions Criticality Noted Date Comments Egg Shells Nausea/vomiting Medium 06/16/2018 Other reaction(s): GI SYMPTOMS Egg Yolk High 11/29/2019 Other reaction(s): GI upset Ibuprofen Other (Please comment) Medium 07/30/2010 Stomach upset Morphine Edema face/lips/tongue High 08/28/2021 Other reaction(s): LEGS SWELL documented as of this encounter (statuses as of 06/07/2023) Medications Medication Sig Dispensed Refills Start Date [...] 2 Active Betamethasone Dipropionate 0.05 % External OintmentIndications [...] for Itching. 30 g 5 3 Active Oxybutynin Chloride ER 5 MG Oral Tablet Extended Release 24 Hour (Ditropan XL) Take 1 Tablet by mouth in the morning. 90 Tablet 3 3 Active Additional Information Patient taking differently:5 mg OralHS, Informant: Patient, Reported on 04/03/2023 Saline Nasal Trezevant 0.65 % Nasal Solution ([place]) Q6H 0 3 Active Clobetasol Propionate 0.05 [...] before bedtime. 21 Tablet 0 3 Active Pregabalin 150 MG Oral Capsule (Lyrica)Indications :Spinal stenosis of lumbar region without neurogenic claudication Take 1 Capsule by mouth in the morning and 1 Capsule before bedtime. 60 Capsule 11 3 Active Lisinopril 10 MG Oral Tablet (Prinivil) TAKE 1 TABLET BY MOUTH EVERY DAY 90 Tablet 3 3 Active Additional Information Patient taking differently: 10 mg Oral HS, Informant: Patient, Reported on 04/03/2023 Atorvastatin Calcium 80 MG Oral Tablet (Lipitor) TAKE 1 TABLET BY MOUTH EVERY DAY IN THE MORNING 90 Tablet 0 3 Active Additional Information Patient taking differently: 80 [...] 24 hours 16 Tablet 10 4 Active Sulfamethoxazole-Tr imethoprim 800-160 MG Oral Tablet (Bactrim DS) Take 1 Tablet by mouth in the morning and 1 Tablet before bedtime. Use as directed.. 28 Tablet 0 4 06/07/19 24 Discontinued Hospital, Clinic, or Other Facility Administered Medication Ordered Dose Route Frequency Start Date End Date Status atropine sulfate inj 0.4 mgIndications:Chest pain, unspecified type 0.4 mg IV PUSH PRN 01/29/2021 Active sulfamethoxazole-trimetho prim DS (Bactrim DS) 800-160 MG 1 TabletIndications:Uretera l stone 1 Tablet OR ONCE 06/07/2023 06/08/2023 Active documented as of this encounter (statuses as of 06/07/2023) Active Problems Problem Noted Date Diagnosed Date Renal stone 03/21/2023 Food insecurity 01/02/2023 Overview: Per [facility] Protocol Presence of Watchman left atrial appendage closu re device 12/19/2022 PAF (paroxysmal atrial fibrillation) 08/17/2022 Overview: Added automatically from request for surgery [id number] Nasal septal perforation 06/13/2022 Overview: Per ENT [...] as of this encounter (statuses as of 06/07/2023) Resolved Problems Problem Noted Date Diagnosed Date [...] as of this encounter (statuses as of 06/07/2023) Immunizations Name Administration Dates Next Due COVID-19 mRNA, LNP-s, No Pre serve, 2-Dose Series ([employer]) 10/05/2020,09/14/2020 Covid-19, Mrna, Lnp-s, Pf, B ivalent, 30 Mcg, IM, 12 yrs and above (Pfizer) 05/26/2022 Pneumococcal Conjugate Vacc, 13 Valent (Prevnar) 05/30/2016 Pneumococcal Conjugate Vacci ne, 20-valent ([id number]) 04/03/2023 Seasonal Influenza Virus Vac cine, Unspecified [...] Sign Reading Time Taken Comments Blood Pressure 125/38 06/07/2023 11:55 AM EDT 98/64 LUE sitting manual Pulse 65 06/07/2023 11:55 AM EDT Temperature 36.6 C (97.9 F) 06/07/2023 1 1:55 AM EDT Respiratory Rate - - Oxygen Saturation - [...] as of this encounter Progress Notes * Luis Manuel Sandy MD - 06/07/2023 12:02 PM EDT CYSTOSCOPY PROCEDURE OUTPATIENT NOTES DATE: 06/07/2023 Operative Note for: Caroline Paulino Date: 06/07/2023 [facility] Preop Dx: right ureteral stone Postop Dx: same Operation: 1. Cystourethroscopy 2. Removal of right ureteral stent Surgeons: Luis Manuel Sandy MD Time out performed by team Case description: clean contaminated Specimens/ Pathology: None Anesthesia: Local Lidocaine Gel EBL: minimal Complications: none Condition: Stable CLINICAL DATA: 68 year old female who had right ureteral stone and now s/p right ureteroscopy on 05/01/2023. Stone analysis revealed: Calcium Oxalate Dihydrate (Weddellite) 10% Calcium Oxalate Monohydrate (Whewellite) 90% Here for stent removal. Description of Procedure: A cystoscope was inserted per urethra with the following observations: EXTERNAL GENITALIA: Unremarkable. URETHRA: Without stricture or lesion. BLADDER: Bladder mucosa is unremarkable. Specifically, there is no evidence for inflammatory or neoplastic changes. The ureteral orifices are of normal position and configuration. Previously placed right ureteral stent was removed with out difficulty, and was found to be fully intact. Dr. Luis Manuel Sandy was present and scrubbed for the entire procedure. IMPRESSION: ca oxalate stones s/p right ureteroscopy- overall doing well after procedure. Stent outtoday. Will plan for renal us in 3 months. PLAN: RTC 3 months with renal us. Luis Manuel Sandy MD 06/07/2023 12:02 PM Department of Urology PCP: LAMBERT PLASCENCIA [address] [place] [address] [place] [address] [phone] documented in this encounter Plan of Treatment Upcoming Encounters Date Type Department Care Team (Late st Contact Info) Description 06/07/2023 2:30 PM EDT Office Visit Dermatology [facility] [address] [place] [address] Cyril Borges MD [address] [place] [address] 06/14/2023 1:00 PM EDT Office Visit Cosmetic Surgery & Aesthetics [facility] [address] [place] [address] Conor Venegas PA-C [address] [place] [address] 06/19/2023 1:30 PM EDT Nurse Only Rheumatology [facility] [address] [facility] [place] [address] Pf, Nurse Rheum [address] [facility] [place] [address] 06/22/2023 12:30 PM EDT Telemedicine Orthopaedics [facility] [address] [facility] [place] [address] PA-C [address] [place] [address] 06/27/2023 1:20 PM EDT Office Visit Family Practice [facility] [address] [facility] [place] [address] Lambert Plascencia MD [address] [facility] [place] [address] 07/03/2023 2:00 PM EDT Office Visit Nephrology, [facility] [address] [place] [address] Geovanni Linder MD [address] [place] [address] 07/13/2023 2:30 PM EDT Office Visit Pharmacy, [facility] [address] [facility] [place] [address] [facility] [address] [facility] [place] [address] 08/23/2023 2:00 PM EDT Office Visit Podiatry [facility] [address] [facility] [place] [address] Eveline Layne, DPM [address] [place] [address] 09/27/2023 8:30 AM EDT Appointment Radiology, [address] [address] 09/27/2023 9:30 AM EDT Office Visit Urology, [address] [address] Luis Manuel Sandy MD [address] [place] [address] 12/04/2023 1:00 PM EDT Cardiac Studies Cardiac Studies, [facility] [address] [place] [address] 12/20/2023 2:30 PM EDT Imaging Radiology, [address] [address] 12/20/2023 3:20 PM EDT Office Visit Rheumatology [address] [address] John Yoder MD [address] [place] [address] Scheduled Orders Name Type Priority Associated Diagnoses Orde r Schedule US RENAL Medical Imaging Routine Ureteral stone Expected: 09/06/2023, Expires: 06/06/2024 Scheduled Procedures Name Priority Associated Diagnoses Date/Ti [...] Ratio 06/14/2023 06/13/2022, 02/20 GFR 10/29/2023 04/28/2023, 10/2023, 12/07/2022, Additional history exists DXA Scan [...] D LEVEL ONCE IN A LIFETIME-USE SMARTSET# [id number] Completed 06/10/2022, 05/28/2021, 06/20/2020, Additional history exists [...] this encounter Medical Devices Implanted Type Area Silk Screen Layout Drafter Device Identifier Shelf Expiration Date Model / Serial / Lot Kyphon Hv-R Bone Cement Implanted:Qty: 1 on 08/17/2016 by Michael Smith MD at [place] [facility] N/A: Spine Thoracic 03/19/2019 C01A / C01A / [id number] Cement Bone Lv G 1119-140-01 - [id number] Implanted:Qty: 1 on 06/04/2018 by Duc Kimble MD at OR [facility] Right: Knee [employer] 11/19/20201119-1 40-01 / / [id number] Cement Bone Lv G 1119-140-01 - [id number] Implanted:Qty: 1 on 06/04/2018 by Duc Kimble MD at OR [facility] Right: Knee [employer] 06/19/20209-1 40- / / [id number] Persona The Personlized Knee System Vivacit-E Highly Crosslinked Polyethylene All-Poly Patella Cemented Implanted:Qty: 1 on 06/04/2018 by Duc Kimble MD at OR [facility] Right: Knee [employer] 06/19/2022 42-5402-0 00-35 / / [id number] Tibia Stem 5 Deg Rt Size F - [id number] Implanted:Qty: 1 on 06/04/2018 by Duc Kimble MD at OR [facility] Right: Knee [employer] 10/21/2027 42-5320-0 75-02 / / [id number] Persona The Personalized Knee System Femur Cemented Cr Standard Implanted:Qty: 1 on 06/04/2018 by Duc Kimble MD at OR [facility] Right: Knee [employer] 11/20/2027 42-5026-0 62-02 / / [id number] Persona The Personalized Knee System Vivacit-E Highly Crosslinked Polyethylene Articular Surface Medial Congruent Implanted:Qty: 1 on 06/04/2018 by Duc Kimble MD at OR [facility] Right: Knee [employer] 11/19/2022 42-5221-0 07- / [id number] Device Watchman Flx 24mm - [id number] Implanted:Qty: 1 on 10/06/2022 by Austin Penaloza MD at [facility] [place] Qiro : INTRV CARD [id number] 03/07/2025 [id number] 40 / / [id number] Device Watchman Flx 27mm - [id number] Implanted:Qty: 1 on 10/06/2022 by Austin Penaloza MD at [facility] [employer] : INTRV CARD [id number] 08/07/2025 [id number] 70 / / [id number] documented as of this encounter Procedures Procedure Name Priority Date/Time Associated Diagnosis Comments URINALYSIS, POINT OF CARE [facility] 06/07/2023 11:56 AM EDT documented in this encounter Results * (ABNORMAL) URINALYSIS, POINT OF CARE (06/07/2023 11:56 AM EDT) Color, Urine Faviola(A) Light Yellow, Yellow 06/07/2023 11:59 AM EDT [facility] Clarity, Urine Cloudy(A) Clear 06/07/2023 11:59 AM EDT [facility] Glucose, Urine Negative Negative mg/dL 06/07/2023 11:59 AM EDT [facility] Bilirubin, Urine Negative Negative 06/07/2023 11:59 AM EDT [facility] Ketone, Urine Negative Negative mg/dL 06/07/2023 11:59 AM EDT [facility] Specific [place], Urine 1.025 1.003 - 1.030 06/07/2023 11:59 AM EDT [facility] Blood, Urine Large(A) Negative 06/07/2023 11:59 AM EDT [facility] pH, Urine 7.0 5.0, 5.5, 6.0, 6.5, 7.0, 7.5 units 06/07/2023 11:59 AM EDT [facility] Protein, Urine 100(A) Negative mg/dL 06/07/2023 11:59 AM EDT [facility] Urobilinogen, Urine 0.2 0.2, 1.0 mg/dL 06/07/2023 11:59 AM EDT [facility] Nitrite, Urine Negative Negative 06/07/2023 11:59 AM EDT [facility] Esterase, Urine Small(A) Negative 06/07/2023 11:59 AM EDT [facility] Urine 06/07/2023 11:5 6 AM EDT 06/07/2023 11:59 AM EDT Luis Manuel Sandy MD LAB POINT OF CARE TE ST DOCKED DEVICE UNSOLICITED RESULTS [facility] [address] [facility] [address] documented in this encounter Visit Diagnoses Diagnosis Ureteral stone- Primary Calculus of ureter documented in this encounter Advance Directives Latest [...] the patient have Health Care Power of Platform Material Handling Supervisor? No Care Teams Engineering Technology Instructor Relationship Specialty Start Date End Date Lambert Plascencia MD [address] [place] [address] PCP - General Family Medicine 10/31/19 documented as of this encounter
--- OUTSIDE RECORDS SUMMARY | 2023-07-29 04:04 | External Medical Summary ---
Author Name Unknown Address Unknown Organization : Laboratory Report Ordering Provider Test Date Status DARYL RAYMOND 06/07/2023 11:56:00 Final Observation Date Value Abnormality Reference (Units ) Status Color of Urine by Auto 06/07/2023 11:56:00 Faviola Abnormal Light Yellow, Yellow Final Clarity, Urine 06/07/2023 11:56:00 Cloudy Abnormal Clear Final Glucose [Mass/volume] in Urine by Automated test strip 06/07/2023 11:56:00 Negative Negative (mg/dL) Final Bilirubin.total [Presence] in Urine by Automated test strip 06/07/2023 11:56:00 Negative Negative Final Ketones [Mass/volume] in Urine by Automated test strip 06/07/2023 11:56:00 Negative Negative (mg/dL) Final Specific gravity, Urine 06/07/2023 11:56:00 1.025 1.003-1.030 Final Hemoglobin [Presence] in Urine by Automated test strip 06/07/2023 11:56:00 Large Abnormal Negative Final pH, Urine 06/07/2023 11:56:00 7.0 5.0, 5.5, 6.0, 6.5, 7.0, 7.5 (units) Final Protein [Mass/volume] in Urine by Automated test strip 06/07/2023 11:56:00 100 Abnormal Negative (mg/dL) Final Urobilinogen, Urine 06/07/2023 11:56:00 0.2 0.2, 1.0 (mg/dL) Final Nitrite [Presence] in Urine by Automated test strip 06/07/2023 11:56:00 Negative Negative Final Leukocyte esterase [Presence] in Urine by Automated test strip 06/07/2023 11:56:00 Small Abnormal Negative Final Performing Location
--- OUTSIDE RECORDS SUMMARY | 2023-07-29 04:04 | External Medical Summary | Summary of Care ---
Author Name Unknown Organization [facility] Address [address] [place] [address] Phone [phone] Care Team Providers Care Plant Nursery Worker Name Role Phone Nikunj Plascencia MD Primary Care Provider [phone] Encounter Details Date Type Department Care Team (Late st Contact Info) Description [facility] [address] [place] [address] Luis Manuel Sandy MD [address] [place] [address] Allergies Active Allergy Reactions Criticality Noted Date Comments Egg Shells Nausea/vomiting Medium 06/16/2018 Other reaction(s): GI SYMPTOMS Egg Yolk High 11/29/2019 Other reaction(s): GI upset Ibuprofen Other (Please comment) Medium 07/30/2010 Stomach upset Morphine Edema face/lips/tongue High 08/28/2021 Other reaction(s): LEGS SWELL documented as of this encounter (statuses as of 06/08/2023) Medications Medication Sig Dispensed Refills Start Date [...] Informant: Patient, Reported on 04/03/2023 Saline Nasal [place] 0.65 % Nasal Solution ([place]) Q6H 0 06/06/2022 Active Clobetasol Propionate 0.05 [...] as of this encounter (statuses as of 06/08/2023) Active Problems Problem Noted Date Diagnosed Date Renal stone 03/21/2023 Food insecurity 01/02/2023 Overview: Per [facility] Protocol Presence of Watchman left atrial appendage closu re device 12/19/2022 PAF (paroxysmal atrial fibrillation) 08/17/2022 Overview: Added automatically from request for surgery [id number] Nasal septal perforation 06/13/2022 Overview: Per ENT [...] as of this encounter (statuses as of 06/08/2023) Resolved Problems Problem Noted Date Diagnosed Date [...] 140/90 12/12/201111/09 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 Tinea 06/27/2011 07/30/2018 Mixed urge and stress incontinence 12/15/2008 10/08/2019 ADVANCE DIRECTIVE INFORMATION 06/17/2004 10/08/2019 documented as of this encounter (statuses as of 06/08/2023) Immunizations Name Administration Dates Next Due COVID-19 mRNA, LNP-s, No Pre serve, 2-Dose Series ([employer]) 10/05/2020,09/14/2020 Covid-19, Mrna, Lnp-s, Pf, B ivalent, 30 Mcg, IM, 12 yrs and above (Pfizer) 05/26/2022 Pneumococcal Conjugate Vacc, 13 Valent (Prevnar) 05/30/2016 Pneumococcal Conjugate Vacci ne, 20-valent ([id number]) 04/03/2023 Seasonal Influenza Virus Vac cine, Unspecified [...] encounter Miscellaneous Notes * Telephone Encounter - Esther Genao OSA - 06/08/2023 3:16 PM EDT Called pt LMOM about her 3 month return w BARBRA that we needed to schedule with Vika. We had scheduled the BARBRA on September 27 @8:15 and the return w/ Vika same day @ 9:30am. Stated to patient that if this time or date does not work for her to give us a call at [phone] documented in this encounter Plan of Treatment Upcoming Encounters Date Type Department Care Team (Late st Contact Info) Description 06/14/2023 1:00 PM EDT Office Visit Cosmetic Surgery & Aesthetics [facility] [address] [place] [address] Conor Venegas PA-C [address] [facility] [place] [place] [address] 06/19/2023 1:30 PM EDT Nurse Only Rheumatology [place] [address] [facility] [place] [address] Pf, Nurse Rheum [address] [facility] [place], [place] [address] 06/22/2023 12:30 PM EDT Telemedicine Orthopaedics [facility] [address] [facility] [place] [address] PA-C [address] [facility] [address] [place], [place] [address] 06/27/2023 1:20 PM EDT Office Visit Family Practice [facility] [address] [place] [address] Nikunj Plascencia MD 132 [facility] [place] [address] 07/03/2023 2:00 PM EDT Office Visit Nephrology, [facility] [address] [facility] [place] [address] Geovanni Linder MD [address] [place] [address] 07/13/2023 2:30 PM EDT Office Visit Pharmacy, [facility] [address] [facility] [place] [address] [facility] 132 [place] [address] 08/23/2023 2:00 PM EDT Office Visit Podiatry [facility] 132 [place] [address] Eveline Layne, DPGeetha [address] [facility] [place] [id number] 09/27/2023 8:30 AM EDT Appointment Radiology, [address] [id number] 09/27/2023 9:30 AM EDT Office Visit Urology, [facility] [address] [place] [address] Luis Manuel Sandy MD [address] [place] [address] 12/01/2023 1:45 PM EDT Office Visit Dermatology [facility] 16 [place] [address] Cyril Borges MD 16 [place] [address] 12/04/2023 1:00 PM EDT Cardiac Studies Cardiac Studies, [facility] 132 [facility] [place] [address] 12/20/2023 2:30 PM EDT Imaging Radiology, [address] [place] [address] 12/20/2023 3:20 PM EDT Office Visit Rheumatology [place] [address] [facility] [facility] [place] [address] John Yoder MD [address] [place] [address] [place] [address] Scheduled Procedures Name Priority Associated Diagnoses Date/Ti [...] Ratio 06/14/2023 06/13/2022, 02/20 GFR 10/29/2023 04/28/2023, 02/0 10/2023, 12/07/2022, Additional history exists DXA Scan [...] D LEVEL ONCE IN A LIFETIME-USE SMARTSET# [id number] Completed 06/10/2022, 05/28/2021, 06/20/2020, Additional history exists [...] this encounter Medical Devices Implanted Type Area Roustabout Crew Leader Device Identifier Shelf Expiration Date Model / Serial / Lot Kyphon Hv-R Bone Cement Implanted:Qty: 1 on 08/17/2016 by Michael Smith MD at [place] [facility] N/A: Spine Thoracic 03/19/2019 C01A / C01A / [id number] Cement Bone Lv G 1119-140-01 - [id number] Implanted:Qty: 1 on 06/04/2018 by Duc Kimble MD at OR [facility] Right: Knee [employer] 11/19/2020-1119-1 40-01 / / [id number] Cement Bone Lv G 1119-140-01 - [id number] Implanted:Qty: 1 on 06/04/2018 by Duc Kimble MD at OR [facility] Right: Knee [employer] 06/19/20201119-1 40-01 / / [id number] Persona The Personlized Knee System Vivacit-E Highly Crosslinked Polyethylene All-Poly Patella Cemented Implanted:Qty: 1 on 06/04/2018 by Duc Kimble MD at OR [facility] Right: Knee [employer] 06/19/2022 42-5402-0 00-35 / / [id number] Tibia Stem 5 Deg Rt Size F - [id number] Implanted:Qty: 1 on 06/04/2018 by Duc Kimble MD at OR [facility] Right: Knee [employer] 10/21/2027 42-5320-0 75-02 / / [id number] Persona The Personalized Knee System Femur Cemented Cr Standard Implanted:Qty: 1 on 06/04/2018 by Duc Kimble MD at OR [facility] Right: Knee [employer] 11/20/2027 42-5026-0 62-02 / / [id number] Persona The Personalized Knee System Vivacit-E Highly Crosslinked Polyethylene Articular Surface Medial Congruent Implanted:Qty: 1 on 06/04/2018 by Duc Kimble MD at OR [facility] Right: Knee [employer] 11/19/2022 42-5221-0 07-12 / / [id number] Device Watchman Flx 24mm - [id number] Implanted:Qty: 1 on 10/06/2022 by Austin Penaloza MD at [facility] [employer] : INTRV CARD [id number] 03/07/2025 [id number] 40 / / [id number] Device Watchman Flx 27mm - [id number] Implanted:Qty: 1 on 10/06/2022 by Austin Penaloza MD at [facility] : INTRV CARD [id number] 08/07/2025 [id number] 70 / / [id number] documented as of this encounter Advance Directives [...] the patient have Health Care Power of Sap Abap Programmer? No Care Teams Plant Nursery Worker Relationship Specialty Start Date End Date Nikunj Plascencia MD [address] [place] [address] PCP - General Family Medicine 10/31/19 documented as of this encounter
--- OUTSIDE RECORDS SUMMARY | 2023-07-29 04:04 | External Medical Summary | Summary of Care ---
Author Name Unknown Organization [facility] Address [address] [place] [address] Phone [phone] Care Team Providers Care Reference Assistant Name Role Phone Nikunj Plascencia MD Primary Care Provider [phone] Reason for Visit * Reason Onset Date Comments Med Request 06/05/2023 Encounter Details Date Type Department Care Team (Late st Contact Info) Description 06/05/2023 Telephone Family Practice [facility] 132 [facility] [place] [address] Nikunj Plascencia MD 132 [facility] [place] [address] Med Request Allergies Active Allergy Reactions Criticality Noted Date [...] Informant: Patient, Reported on 04/03/2023 Saline Nasal [place] 0.65 % Nasal Solution ([place]) Q6H 0 06/06/2022 Active Clobetasol Propionate 0.05 [...] the morning. 60 Capsule 5 05/23/2023 Active Sulfamethoxazole-Tri methoprim 800-160 MG Oral Tablet (Bactrim DS) Take 1 Tablet by mouth in the morning and 1 Tablet before bedtime. Use as directed.. 28 Tablet 0 05/25/2023 Active Tacrolimus 0.1 % External Ointment Apply thin film to affected areas at face twice daily as needed. 60 g 2 06/02/2023 Active Hospital, Clinic, or Other Facility Administered [...] Overview: Added automatically from request for surgery [id number] Nasal septal perforation 06/13/2022 Overview: Per ENT [...] 140/90 12/12/201111/09 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 07/30/2018 Overview: [place] palsy Tinea 06/27/2011 07/30/2018 Mixed urge and stress incontinence 12/15/2008 10/08/2019 ADVANCE DIRECTIVE INFORMATION 06/17/2004 10/08/2019 documented as of this encounter (statuses as of 06/05/2023) Immunizations Name Administration Dates Next Due COVID-19 mRNA, LNP-s, No Pre serve, 2-Dose Series (Subtext) 10/05/2020,09/14/2020 Covid-19, Mrna, Lnp-s, Pf, B ivalent, 30 Mcg, IM, 12 yrs and above (Pfizer) 05/26/2022 Pneumococcal Conjugate Vacc, 13 Valent (Prevnar) 05/30/2016 Pneumococcal Conjugate Vacci ne, 20-valent ([id number]) 04/03/2023 Seasonal Influenza Virus Vac cine, Unspecified [...] encounter Miscellaneous Notes * Telephone Encounter - Risa Cool CPhT - 06/05/2023 8:30 AM EDT Pt calling to request Pregabalin 150 MG Oral Capsule (Lyrica) . Informed pt that RX is available attheir pharmacy. Pt verbalized understanding and stated they will check with their pharmacy regarding this medication. Thank you, Miladis Cool CPhT Pediatric Sports Medicine Specialist II [facility] ([facility]) (Formerly Telepharmacy) 06/05/2023,8:30 AM documented in this encounter Plan of Treatment Upcoming Encounters Date Type Department Care Team (Late st Contact Info) Description 06/07/2023 12:45 PM EDT Procedure Only Urology, [address] [place] [address] Luis Manuel Sandy MD [address] [place] [address] 06/07/2023 2:30 PM EDT Office Visit Dermatology [facility] [address] [place] [address] Cyril Borges MD [address] [place] [address] 06/14/2023 1:00 PM EDT Office Visit Cosmetic Surgery & Aesthetics [facility] [address] [place] [address] Conor Venegas PA-C [address] [place] [address] 06/19/2023 1:30 PM EDT Nurse Only Rheumatology [facility] [address] [facility] [place] [address] Pf, Nurse Rheum [facility]0 [facility] [place] [address] 06/22/2023 12:30 PM EDT Telemedicine Orthopaedics [facility] 132 [place] [address] PA-C [address] [place] [address] 06/27/2023 1:20 PM EDT Office Visit Family Practice [facility] 132 [place] [address] Nikunj Plascencia MD 132 [facility] [place] [address] 07/03/2023 2:00 PM EDT Office Visit Nephrology, Jason Salas [address] [place] [address] Geovanni Linder MD 200 [place] [address] 07/13/2023 2:30 PM EDT Office Visit Pharmacy, [address] [address] [facility] [address] [address] 08/23/2023 2:00 PM EDT Office Visit Podiatry [address] [address] Eveline Layne, JAMAL [address] [place] [address] 09/27/2023 8:30 AM EDT Appointment Radiology, [address] [address] 09/27/2023 9:30 AM EDT Office Visit Urology, [place] [address] [place] [address] Luis Manuel Sandy MD [address] [place] [address] 12/04/2023 1:00 PM EDT Cardiac Studies Cardiac Studies, [address] [address] 12/20/2023 2:30 PM EDT Imaging Radiology, [address] [place], [place] [address] 12/20/2023 3:20 PM EDT Office Visit Rheumatology [address] [place], [place] [address] John Yoder MD [address] [place] [address] [place], [place] [address] Scheduled Procedures Name Priority Associated Diagnoses Date/Ti me ROBOTIC ARTHROPLASTY KNEE TOTAL Knee osteoarthritis COLONOSCOPY FLEXIBLE PROXIMA L DIAGNOSTIC Recall History of colonic polyps Health Maintenance Due Date Last Done Comments Zoster Vaccines (1 of 2) 1976 HOME BP CUFF VALIDATION YEARLY 04/02/2020 04/02/2019 COVID-19 Vaccine ( - season) 2022 05/26/2022, 10/05/2020, 09/14/2020 Mammogram 11/30/2022 [...] D LEVEL ONCE IN A LIFETIME-USE SMARTSET# 11112 Completed 06/10/2022, 05/28/2021, 06/20/2020, Additional history exists [...] this encounter Medical Devices Implanted Type Area Caul Fat Puller Device Identifier Shelf Expiration Date Model / Serial / Lot Kyphon Hv-R Bone Cement Implanted:Qty: 1 on 08/17/2016 [place] [facility] [place] Spine Thoracic 03/19/2019 C01A / C01A / [id number] Cement Bone Lv G 1119-140-01 - [id number] Implanted:Qty: 1 on 06/04/2018 by Duc Kimble MD at OR [facility] Right: Knee [employer] 11/19/2020-1119-1 40-01 / / [id number] Cement Bone Lv G 1119-140-01 - [id number] Implanted:Qty: 1 on 06/04/2018 by Duc Kimble MD at OR [facility] Right: Knee [employer] 06/19/2020-1119-1 40-01 / / [id number] Persona The Personlized Knee System Vivacit-E Highly Crosslinked Polyethylene All-Poly Patella Cemented Implanted:Qty: 1 on 06/04/2018 by Duc Kimble MD at OR [facility] Right: Knee [employer] 06/19/2022 42-5402-0 00-35 / / [id number] Tibia Stem 5 Deg Rt Size F - [id number] Implanted:Qty: 1 on 06/04/2018 by Duc Kimble MD at OR [facility] Right: Knee [employer] 10/21/2027 42-5320-0 75-02 / / [id number] Persona The Personalized Knee System Femur Cemented Cr Standard Implanted:Qty: 1 on 06/04/2018 by Duc Kimble MD at OR [facility] Right: Knee [employer] 11/20/2027 42-5026-0 62-02 / / [id number] Persona The Personalized Knee System Vivacit-E Highly Crosslinked Polyethylene Articular Surface Medial Congruent Implanted:Qty: 1 on 06/04/2018 by Duc Kimble MD at OR [facility] Right: Knee [employer] 11/19/2022 42-5221-0 08-31 / / [id number] Device Watchman Flx 24mm - [id number] Implanted:Qty: 1 on 10/06/2022 by Austin Penaloza [place] [facility] [place] [employer] : INTRV CARD [id number] 03/07/2025 [id number] 40 / / [id number] Device Watchman Flx 27mm - [id number] Implanted:Qty: 1 on 10/06/2022 by Austin Penaloza MD at [facility] [place] [employer] : INTRV CARD [id number] 08/07/2025 [id number] 70 / / [id number] documented as of this encounter Advance Directives [...] the patient have Health Care Power of Adobe Layer Helper? No Care Teams Reference Assistant Relationship Specialty Start Date End Date Nikunj Plascencia MD [address] [place] [address] PCP - General Family Medicine 10/31/19 documented as of this encounter
--- OUTSIDE RECORDS SUMMARY | 2023-07-29 04:05 | External Medical Summary | Summary of Care ---
Author Name Unknown Organization [facility] Address [address] [place] [address] Phone [phone] Care Team Providers Care Light Cleaner Name Role Phone Nikunj Plascencia MD Primary Care Provider [phone] Reason for Visit * Reason Onset Date Comments Chest Pain 05/29/2023 And SOB intermit tent Encounter Details Date Type Department Care Team (Late st Contact Info) Description 05/29/2023 Telephone Cardiology [facility] [address] [place] [address] Michael Flannery CRNP [address] [place] [address] Chest Pain (And SOB intermittent ) Allergies Active Allergy Reactions Criticality Noted Date Comments Egg Shells Nausea/vomiting Medium 06/16/2018 Other reaction(s): GI SYMPTOMS Egg Yolk High 11/29/2019 Other reaction(s): GI upset Ibuprofen Other (Please comment) Medium 07/30/2010 Stomach upset Morphine Edema face/lips/tongue High 08/28/2021 Other reaction(s): LEGS SWELL documented as of this encounter (statuses as of 05/30/2023) Medications Medication Sig Dispensed Refills Start Date [...] Informant: Patient, Reported on 04/03/2023 Saline Nasal [place] 0.65 % Nasal Solution ([place]) Q6H 0 06/06/2022 Active Clobetasol Propionate 0.05 [...] AND EVENING 90 Tablet 3 01/30/2023 Active Tacrolimus 0.1 % External Ointment Apply thin film to affected areas at face twice daily as needed. 60 g 2 01/30/2023 Active Dupixent 300 MG/2ML Subcutaneous Solution [...] as directed.. 28 Tablet 0 05/25/2023 Active Hospital, Clinic, or Other Facility Administered Medication Ordered Dose Route Frequency Start Date End Date Status atropine sulfate inj 0.4 mgIndications:Chest pain, unspecified type 0.4 mg IV PUSH PRN 01/29/2021 Active documented as of this encounter (statuses as of 05/30/2023) Active Problems Problem Noted Date Diagnosed Date Renal stone 03/21/2023 Food insecurity 01/02/2023 Overview: Per [facility] Protocol Presence of Watchman left atrial appendage closu re device 12/19/2022 PAF (paroxysmal atrial fibrillation) 08/17/2022 Overview: Added automatically from request for surgery [id number] Nasal septal perforation 06/13/2022 Overview: Per ENT [...] as of this encounter (statuses as of 05/30/2023) Resolved Problems Problem Noted Date Diagnosed Date [...] 140/90 12/12/201111/09 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 07/30/2018 Overview: [place] palsy Tinea 06/27/2011 07/30/2018 Mixed urge and stress incontinence 12/15/2008 10/08/2019 ADVANCE DIRECTIVE INFORMATION 06/17/2004 10/08/2019 documented as of this encounter (statuses as of 05/30/2023) Immunizations Name Administration Dates Next Due COVID-19 mRNA, LNP-s, No Pre serve, 2-Dose Series ([place]) 10/05/2020,09/14/2020 Covid-19, Mrna, Lnp-s, Pf, B ivalent, 30 Mcg, IM, 12 yrs and above (Pfizer) 05/26/2022 Pneumococcal Conjugate Vacc, 13 Valent (Prevnar) 05/30/2016 Pneumococcal Conjugate Vacci ne, 20-valent ([id number]) 04/03/2023 Seasonal Influenza Virus Vac cine, Unspecified [...] encounter Miscellaneous Notes * Telephone Encounter - Lila Bautista CRNP - 05/30/2023 7:46 AM EDT Patient now has severe aortic stenosis on most recent echo. Recommend moving up Dr. Penaloza appointment. If sooner appointment within the next 6 weeks is not obtainable recommend follow-up with the undersigned to discuss symptoms. MAICOL Amezcua * Telephone Encounter - Trip Mccartney LPN - 05/29/2023 3:38 PM EDT Spoke to patient made her aware of message from michael flannery she is going to [facility] Trip Mccartney LPN 05/29/2023 3:39 PM * Telephone Encounter - Michael Flannery CRNP - 05/29/2023 12:06 PM EDT This far away from having the procedure done, there is extremely low chance it has anything at all to do with the watchman device. I would advise her to discuss with her primary Cardiology provider MAICOL Morris * Telephone Encounter - Trip Mccartney LPN - 05/29/2023 10:54 AM EDT Incoming call today from patient Patient reports that she is having mild chest pain intermittently over the past week Also reports when she is having this chest pain she gets SOB And noticing having some heart palps intermittently as well Patient reports Bps have been normal But does reports getting headaches a few times over the past week She also told me her sisiter just last week and that she has been upset But she worries that there is an issue with her watchmen Reviewed ER usage if pain or SOB would get worse or more frequent Patent states she can be reached at [phone] Trip Mccartney LPN 05/29/2023 11:04 AM documented in this encounter Plan of Treatment Upcoming Encounters Date Type Department Care Team (Late st Contact Info) Description 06/07/2023 12:45 PM EDT Procedure Only Urology, [place] [address] [place] [address] Luis Manuel Sandy MD [address] [place] [address] 06/07/2023 2:30 PM EDT Office Visit Dermatology [facility] 16 [place] [address] Cyril Borges MD 16 [place] [address] 06/14/2023 1:00 PM EDT Office Visit Cosmetic Surgery & Aesthetics [place] [address] [place] [address] Conor Venegas PA-C [address] [place] [address] 06/19/2023 1:30 PM EDT Nurse Only Rheumatology [facility] [address] [facility] [place] [address] Pf, Nurse Rheum [address] [facility] [place] [address] 06/22/2023 12:30 PM EDT Telemedicine [facility] [address] PA-C [address] [place] [address] 06/27/2023 1:20 PM EDT Office Visit Family Practice [facility] [address] [facility] [address] Nikunj [facility]asc[facility] MD 132 [facility] [address] 07/03/2023 2:00 PM EDT Office Visit Nephrology, Jason Salas [address] [place] [address] Geovanni Linder MD [address] [place] [address] 07/13/2023 2:30 PM EDT Office Visit Pharmacy, [facility] 132 [facility] [place] [address] [facility] 132 [facility] [place] [address] 08/23/2023 2:00 PM EDT Office Visit Podiatry [facility] 132 [place] [address] Eveline Layne, JAMAL [address] [place] [address] 09/27/2023 8:30 AM EDT Appointment Radiology, [address] [address] 09/27/2023 9:30 AM EDT Office Visit Urology, [address] [address] Luis Manuel Sandy MD [facility] [place] [address] 12/04/2023 1:00 PM EDT Cardiac Studies Cardiac Studies, [address] [address] 12/13/2023 9:30 AM EDT Office Visit Cardiology, [address] [address] Austin Penaloza MD [facility] [place] [address] 12/20/2023 2:30 PM EDT Imaging Radiology, [address] [place] [address] 12/20/2023 3:20 PM EDT Office Visit Rheumatology [address] [place] [address] John Yoder MD [address] [place] [address] [place] [address] Scheduled Procedures Name Priority Associated Diagnoses Date/Ti [...] D LEVEL ONCE IN A LIFETIME-USE SMARTSET# 13694 Completed 06/10/2022, 05/28/2021, 06/20/2020, Additional history exists [...] this encounter Medical Devices Implanted Type Area Chili Powder Mixer Device Identifier Shelf Expiration Date Model / Serial / Lot Kyphon Hv-R Bone Cement Implanted:Qty: 1 on 08/17/2016 [place] [facility] [place] Spine Thoracic 03/19/2019 C01A / C01A / [id number] Cement Bone Lv G 1119-140-01 - [id number] Implanted:Qty: 1 on 06/04/2018 by Duc Kimble MD at OR [facility] Right: Knee [employer] 11/19/20201119-1 40- / / [id number] Cement Bone Lv G 1119-140-01 - [id number] Implanted:Qty: 1 on 06/04/2018 by Duc Kimble MD at OR [facility] Right: Knee [employer] 06/19/20201119-1 40- / / [id number] Persona The Personlized Knee System Vivacit-E Highly Crosslinked Polyethylene All-Poly Patella Cemented Implanted:Qty: 1 on 06/04/2018 by Duc Kimble MD at OR [facility] Right: Knee [employer] 06/19/2022 42-5402-0 00-35 / / [id number] Tibia Stem 5 Deg Rt Size F - [id number] Implanted:Qty: 1 on 06/04/2018 by Duc Kimble MD at OR [facility] Right: Knee [employer] 10/21/2027 42-5320-0 75-02 / / [id number] Persona The Personalized Knee System Femur Cemented Cr Standard Implanted:Qty: 1 on 06/04/2018 by Duc Kimble MD at OR [facility] Right: Knee [employer] 11/20/2027 42-5026-0 62-02 / / [id number] Persona The Personalized Knee System Vivacit-E Highly Crosslinked Polyethylene Articular Surface Medial Congruent Implanted:Qty: 1 on 06/04/2018 by Duc Kimble MD at OR [facility] Right: Knee [employer] 11/19/2022 42-5221-0 - / / [id number] Device Watchman Flx 24mm - [id number] Implanted:Qty: 1 on 10/06/2022 by Austin Pnealoza [place] [facility] [place] [employer] : INTRV CARD [id number] 03/07/2025 [id number] 40 / / [id number] Device Watchman Flx 27mm - [id number] Implanted:Qty: 1 on 10/06/2022 by Austin Penaloza MD [place] [facility] [place] [employer] : INTRV CARD [id number] 08/07/2025 [id number] 70 / / [id number] documented as of this encounter Advance Directives [...] the patient have Health Care Power of Vat House Laborer? No Care Teams Light Cleaner Relationship Specialty Start Date End Date Nikunj Plascencia MD [address] [place] [address] PCP - General Family Medicine 9/10/20 documented as of this encounter
--- OUTSIDE RECORDS SUMMARY | 2023-07-29 04:05 | External Medical Summary | Summary of Care ---
Author Name Unknown Organization [facility] Address [address] [place] [address] Phone [phone] Care Team Providers Care Back End Engineer Name Role Phone Nikunj Plascencia MD Primary Care Provider [phone] Reason for Visit * Reason Onset Date Comments Chest Pain 05/29/2023 And SOB intermit tent Encounter Details Date Type Department Care Team (Late st Contact Info) Description 05/29/2023 Telephone Cardiology [facility] [address] [place] [address] Michael Flannery CRNP [address] [place] [address] Chest Pain (And SOB intermittent [...] Informant: Patient, Reported on 04/03/2023 Saline Nasal [place] 0.65 % Nasal Solution (Boone) Q6H 0 06/06/2022 Active Clobetasol Propionate 0.05 [...] stone 03/21/2023 Food insecurity 01/02/2023 Overview: Per [facility] Protocol Presence of Watchman left atrial appendage closu re device 12/19/2022 PAF (paroxysmal atrial fibrillation) 08/17/2022 Overview: Added automatically from request for surgery [id number] Nasal septal perforation 06/13/2022 Overview: Per ENT [...] 140/90 12/12/201111/09 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 07/30/2018 Overview: [place] palsy Tinea 06/27/2011 07/30/2018 Mixed urge and stress incontinence 12/15/2008 10/08/2019 ADVANCE DIRECTIVE INFORMATION 06/17/2004 10/08/2019 documented as of this encounter (statuses as of 05/30/2023) Immunizations Name Administration Dates Next Due COVID-19 mRNA, LNP-s, No Pre serve, 2-Dose Series ([employer]) 10/05/2020,09/14/2020 Covid-19, Mrna, Lnp-s, Pf, B ivalent, 30 Mcg, IM, 12 yrs and above (Pfizer) 05/26/2022 Pneumococcal Conjugate Vacc, 13 Valent (Prevnar) 05/30/2016 Pneumococcal Conjugate Vacci ne, 20-valent ([id number]) 04/03/2023 Seasonal Influenza Virus Vac cine, Unspecified [...] encounter Miscellaneous Notes * Telephone Encounter - Everardo Aguilar, LILY - 05/30/2023 8:17 AM EDT Please advise please to have appt changed I am unable to schedule this. I tried to schedule this, and there is no open appointments after 06/13. Patient will be at [facility] for two appointments on [id number] of June, she is unable to make the open appts that day. The next set of appts is not until August of 2023. I stated to patient, someone will call her back, as I tried to do schedule 06/14/23 and marily talbot is unable to do this time and date. I sent this to the Valve referral Pool, Please forward to theappropriate persons if that pool is not the correct one, I am unable to find a scheduling Valve Pool. thank you. * Telephone Encounter - Lila Bautista CRNP - 05/30/2023 7:46 AM EDT Patient now has severe aortic stenosis on most recent echo. Recommend moving up Dr. Penaloza appointment. If sooner appointment within the next 6 weeks is not obtainable recommend follow-up with the undersigned to discuss symptoms. MAICOL Amezcua * Telephone Encounter - Tirp Mccartney LPN - 05/29/2023 3:38 PM EDT Spoke to patient made her aware of message from michael flannery she is going to contact [facility] cardiology Trip Mccartney LPN 05/29/2023 3:39 PM [...] Patent states she can be reached at [phone] Trip Mccartney LPN 05/29/2023 11:04 AM documented in this encounter Plan of Treatment Upcoming Encounters Date Type Department Care Team (Late st Contact Info) Description 06/07/2023 12:45 PM EDT Procedure Only Urology, [facility] [address] [place] [address] Luis Manuel Sandy MD [address] [place] [address] 06/07/2023 2:30 PM EDT Office Visit Dermatology [facility] [address] [place] [address] Cyril Borges MD 16 [place] [address] 06/14/2023 1:00 PM EDT Office Visit Cosmetic Surgery & Aesthetics [facility] [address] [place] [address] Conor Venegas PA-C [address] [place] [address] 06/19/2023 1:30 PM EDT Nurse Only Rheumatology [place] [id number] [place] [address] Pf, Nurse Rheum [facility]0 [place] [address] 06/22/2023 12:30 PM EDT Telemedicine Orthopaedics [facility] 132 [facility] [place] [address] PA-C [address] [place] [address] 06/27/2023 1:20 PM EDT Office Visit Family Practice [facility] 132 [facility] [place] [address] Nikunj Plascencia MD 132 [facility] [place] [address] 07/03/2023 2:00 PM EDT Office Visit Nephrology, [facility] 200 [facility] [place] [address] Geovanni Linder MD [address] [place] [address] 07/13/2023 2:30 PM EDT Office Visit Pharmacy, [facility] 132 [place] [address] [facility] 132 [place] [address] 08/23/2023 2:00 PM EDT Office Visit Podiatry [facility] 132 [place] [address] Eveline Layne, [facility] [address] [place] [address] 09/27/2023 8:30 AM EDT Appointment Radiology, [place] [address] [place] [address] 09/27/2023 9:30 AM EDT Office Visit Urology, [place] [address] [place] [address] Luis Manuel Sandy MD [address] [place] [address] 12/04/2023 1:00 PM EDT Cardiac Studies Cardiac Studies, [facility] 132 [facility] [address] 12/20/2023 2:30 PM EDT Imaging Radiology, [address] [place] [address] 12/20/2023 3:20 PM EDT Office Visit Rheumatology [address] [place] [address] John Yoder MD [address] [place] [address] Scheduled Procedures Name Priority Associated Diagnoses Date/Ti [...] D LEVEL ONCE IN A LIFETIME-USE SMARTSET# 17866 Completed 06/10/2022, 05/28/2021, 06/20/2020, Additional history exists [...] this encounter Medical Devices Implanted Type Area Director Trading Device Identifier Shelf Expiration Date Model / Serial / Lot Kyphon Hv-R Bone Cement Implanted:Qty: 1 on 08/17/2016 by Michael Smith MD at [place] [facility] N/A: Spine Thoracic 03/19/2019 C01A / C01A / [id number] Cement Bone Lv G 1119-140-01 - [id number] Implanted:Qty: 1 on 06/04/2018 by Duc Kimble MD at OR [facility] Right: Knee [employer] 11/19/2020-1119-1 40- / / [id number] Cement Bone Lv G 1119-140-01 - [id number] Implanted:Qty: 1 on 06/04/2018 by Duc Kimble MD at OR [facility] Right: Knee [employer] 06/19/2020-1119-1 40- / [id number] Persona The Personlized Knee System Vivacit-E Highly Crosslinked Polyethylene All-Poly Patella Cemented Implanted:Qty: 1 on 06/04/2018 by Duc Kimble MD at OR [facility] Right: Knee [employer] 06/19/2022 42-5402-0 00 / / [id number] Tibia Stem 5 Deg Rt Size F - [id number] Implanted:Qty: 1 on 06/04/2018 by Duc Kimble MD at OR [facility] Right: Knee [employer] 10/21/2027 42-5320-0 75-02 / / [id number] Persona The Personalized Knee System Femur Cemented Cr Standard Implanted:Qty: 1 on 06/04/2018 by Duc Kimble MD at OR [facility] Right: Knee [employer] 11/20/2027 42-5026-0 62-02 / / [id number] Persona The Personalized Knee System Vivacit-E Highly Crosslinked Polyethylene Articular Surface Medial Congruent Implanted:Qty: 1 on 06/04/2018 by Duc Kimble MD at OR [facility] Right: Knee [employer] 11/19/2022 42-5221-0 07-12 / / [id number] Device Watchman Flx 24mm - [id number] Implanted:Qty: 1 on 10/06/2022 by Austin Penaloza MD at [facility] [employer] : INTRV CARD [id number] 03/07/2025 [id number] 40 / / [id number] Device Watchman Flx 27mm - [id number] Implanted:Qty: 1 on 10/06/2022 by Austin Penaloza MD at [facility] [employer] : INTRV CARD [id number] 08/07/2025 [id number] 70 / / [id number] documented as of this encounter Advance Directives [...] the patient have Health Care Power of Laminator Printed Circuit Boards? No Care Teams Back End Engineer Relationship Specialty Start Date End Date Nikunj Plascencia MD [address] [place] [address] PCP - General Family Medicine 10/31/19 documented as of this encounter
--- OUTSIDE RECORDS SUMMARY | 2023-07-29 04:05 | External Medical Summary | Summary of Care ---
Author Name Unknown Organization [facility] Address [address] [place] [address] Phone [phone] Care Team Providers Care Appraiser Timber Name Role Phone Nikunj Plascencia MD Primary Care Provider [phone] Reason for Visit * Reason Onset Date Comments Chest Pain 05/29/2023 And SOB intermit tent Encounter Details Date Type Department Care Team (Late st Contact Info) Description 05/29/2023 Telephone Cardiology [facility] [address] [place] [address] Michael Flannery CRNP [address] [place] [address] Chest Pain (And SOB intermittent [...] Informant: Patient, Reported on 04/03/2023 Saline Nasal [place] 0.65 % Nasal Solution (Harvey) Q6H 0 06/06/2022 Active Clobetasol Propionate 0.05 [...] stone 03/21/2023 Food insecurity 01/02/2023 Overview: Per [facility] Protocol Presence of Watchman left atrial appendage closu re device 12/19/2022 PAF (paroxysmal atrial fibrillation) 08/17/2022 Overview: Added automatically from request for surgery [id number] Nasal septal perforation 06/13/2022 Overview: Per ENT [...] 140/90 12/12/201111/09 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 07/30/2018 Overview: [place] palsy Tinea 06/27/2011 07/30/2018 Mixed urge and stress incontinence 12/15/2008 10/08/2019 ADVANCE DIRECTIVE INFORMATION 06/17/2004 10/08/2019 documented as of this encounter (statuses as of 05/30/2023) Immunizations Name Administration Dates Next Due COVID-19 mRNA, LNP-s, No Pre serve, 2-Dose Series ([employer]) 10/05/2020,09/14/2020 Covid-19, Mrna, Lnp-s, Pf, B ivalent, 30 Mcg, IM, 12 yrs and above (Pfizer) 05/26/2022 Pneumococcal Conjugate Vacc, 13 Valent (Prevnar) 05/30/2016 Pneumococcal Conjugate Vacci ne, 20-valent ([id number]) 04/03/2023 Seasonal Influenza Virus Vac cine, Unspecified [...] Miscellaneous Notes * Telephone Encounter - Everardo Aguilar OSA - 05/30/2023 8:17 AM EDT Please advise please to have appt changed I am unable to schedule this. thank you. * Telephone Encounter - Lila [...] michael flannery she is going to contact [facility] cardiology Trip Mccartney LPN 05/29/2023 3:39 [...] Patent states she can be reached at [phone] Trip Mccartney LPN 05/29/2023 11:04 AM documented in this encounter Plan of Treatment Upcoming Encounters Date Type Department Care Team (Late st Contact Info) Description 06/07/2023 12:45 PM EDT Procedure Only Urology, [facility] [address] [place] [address] Luis Manuel Sandy MD 100 [address] [facility] [place] [address] 06/07/2023 2:30 PM EDT Office Visit Dermatology [facility] 16 [place] [address] Cyril Borges MD 16 [place] [address] 06/14/2023 1:00 PM EDT Office Visit Cosmetic Surgery & Aesthetics [facility] 16 [place] [address] Conor Venegas PA-C [address] [place], [place] [address] 06/19/2023 1:30 PM EDT Nurse Only Rheumatology [place] [address] [facility] [place] [address] Pf, Nurse Rheum [address] [place] [address] [place] [address] 06/22/2023 12:30 PM EDT Telemedicine Orthopaedics [facility] 132 [facility] [place] [address] PA-C [address] [place] [address] [place] [address] 06/27/2023 1:20 PM EDT Office Visit Family Practice [facility] 132 [facility] [place] [address] Nikunj Plascencia MD 132 [facility] [place] [address] 07/03/2023 2:00 PM EDT Office Visit Nephrology, [place] [address] [place] [address] Geovanni Linder MD [address] [place] [address] 07/13/2023 2:30 PM EDT Office Visit Pharmacy, [address] [place] [address] [facility] [address] [place] [address] 08/23/2023 2:00 PM EDT Office Visit Podiatry [address] [place] [address] Eveline Layne, M [address] [place] [address] 09/27/2023 8:30 AM EDT Appointment Radiology, [place] [address] [place] [address] 09/27/2023 9:30 AM EDT Office Visit Urology, [place] [address] [place] [address] Luis Manuel Sandy MD [facility] [place] [address] 12/04/2023 1:00 PM EDT Cardiac Studies Cardiac Studies, [address] [place] [address] 12/13/2023 9:30 AM EDT Office Visit Cardiology, [address] [address] Austin Penaloza MD [address] [place] [address] 12/20/2023 2:30 PM EDT Imaging Radiology, [place] [address] [place] [address] 12/20/2023 3:20 PM EDT Office Visit Rheumatology [place] [address] [address] John Yoder MD [address] [place] [address] [place] [address] Scheduled Procedures Name Priority Associated Diagnoses Date/Ti [...] D LEVEL ONCE IN A LIFETIME-USE SMARTSET# 92865 Completed 06/10/2022, 05/28/2021, 06/20/2020, Additional history exists [...] this encounter Medical Devices Implanted Type Area Cloth Piecer Device Identifier Shelf Expiration Date Model / Serial / Lot Kyphon Hv-R Bone Cement Implanted:Qty: 1 on 08/17/2016 by Michael Smith MD at OR [facility] N/A: Spine Thoracic 03/19/2019 C01A / C01A / [id number] Cement Bone Lv G 1119-140-01 - [id number] Implanted:Qty: 1 on 06/04/2018 by Duc Kimble MD at OR [facility] Right: Knee [employer] 11/19/2020 00-1119-1 40-01 / / [id number] Cement Bone Lv G 1119-140-01 - [id number] Implanted:Qty: 1 on 06/04/2018 by Duc Kimble MD at OR [facility] Right: Knee [employer] 06/19/2020-1119-1 40-01 / / [id number] Persona The Personlized Knee System Vivacit-E Highly Crosslinked Polyethylene All-Poly Patella Cemented Implanted:Qty: 1 on 06/04/2018 by Duc Kimble MD at OR [facility] Right: Knee [employer] 06/19/2022 42-5402-0 00-35 / / [id number] Tibia Stem 5 Deg Rt Size F - [id number] Implanted:Qty: 1 on 06/04/2018 by Duc Kimble MD at OR [facility] Right: Knee [employer] 10/21/2027 42-5320-0 75-02 / / [id number] Persona The Personalized Knee System Femur Cemented Cr Standard Implanted:Qty: 1 on 06/04/2018 by Duc Kimble MD at OR [facility] Right: Knee [employer] 11/20/2027 42-5026-0 62- / / [id number] Persona The Personalized Knee System Vivacit-E Highly Crosslinked Polyethylene Articular Surface Medial Congruent Implanted:Qty: 1 on 06/04/2018 by Duc Kimble MD at OR [facility] Right: Knee [employer] 11/19/2022 42-5221-0 07-12 / [id number] Device Watchman Flx 24mm - [id number] Implanted:Qty: 1 on 10/06/2022 by Austin Penaloza MD at [facility] [employer] : INTRV CARD [id number] 03/07/2025 [id number] 40 / / [id number] Device Watchman Flx 27mm - [id number] Implanted:Qty: 1 on 10/06/2022 by Austin Penaloza MD at [facility] [employer] : INTRV CARD [id number] 08/07/2025 [id number] 70 / / [id number] documented as of this encounter Advance Directives [...] the patient have Health Care Power of Beamer Helper? No Care Teams Appraiser Timber Relationship Specialty Start Date End Date Nikunj Plascencia MD 132 [place] [address] PCP - General Family Medicine 10/31/19 documented as of this encounter
--- OUTSIDE RECORDS SUMMARY | 2023-07-29 04:05 | External Medical Summary | Summary of Care ---
Author Name Unknown Organization [facility] Address [address] [place] [address] Phone [phone] Care Team Providers Care Aviation Metalsmith Name Role Phone Nikunj Plascencia MD Primary Care Provider [phone] Reason for Visit * Reason Onset Date Comments Chest Pain 05/29/2023 And SOB intermit tent Encounter Details Date Type Department Care Team (Late st Contact Info) Description 05/29/2023 Telephone Cardiology [facility] [address] [place] [address] Michael Flannery CRNP [address] [place] [address] Chest Pain (And SOB intermittent [...] Informant: Patient, Reported on 04/03/2023 Saline Nasal [place] 0.65 % Nasal Solution ([place]) Q6H 0 06/06/2022 Active Clobetasol Propionate 0.05 [...] stone 03/21/2023 Food insecurity 01/02/2023 Overview: Per [facility] Protocol Presence of Watchman left atrial appendage closu re device 12/19/2022 PAF (paroxysmal atrial fibrillation) 08/17/2022 Overview: Added automatically from request for surgery [id number] Nasal septal perforation 06/13/2022 Overview: Per ENT [...] 140/90 12/12/201111/09 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 07/30/2018 Overview: [place] palsy Tinea 06/27/2011 07/30/2018 Mixed urge and stress incontinence 12/15/2008 10/08/2019 ADVANCE DIRECTIVE INFORMATION 06/17/2004 10/08/2019 documented as of this encounter (statuses as of 05/30/2023) Immunizations Name Administration Dates Next Due COVID-19 mRNA, LNP-s, No Pre serve, 2-Dose Series ([employer]) 10/05/2020,09/14/2020 Covid-19, Mrna, Lnp-s, Pf, B ivalent, 30 Mcg, IM, 12 yrs and above (Pfizer) 05/26/2022 Pneumococcal Conjugate Vacc, 13 Valent (Prevnar) 05/30/2016 Pneumococcal Conjugate Vacci ne, 20-valent ([id number]) 04/03/2023 Seasonal Influenza Virus Vac cine, Unspecified [...] appointments after 06/13. Patient will be at [facility] for two appointments on [id number] of June, she is unable to make [...] with the undersigned to discuss symptoms. MAICOL Aemzcua * Telephone Encounter - Trip Mccartney LPN - 05/29/2023 3:38 PM EDT Spoke to patient made her aware of message from michael flannery she is going to contact [facility] cardiology Trip Mccartney LPN 05/29/2023 3:39 PM [...] Patent states she can be reached at [phone] Trip Mccartney LPN 05/29/2023 11:04 AM documented in this encounter Plan of Treatment Upcoming Encounters Date Type Department Care Team (Late st Contact Info) Description 06/07/2023 12:45 PM EDT Procedure Only Urology, [facility] [address] [place] [address] Luis Manuel Sandy MD [address] [place] [address] 06/07/2023 2:30 PM EDT Office Visit Dermatology [facility] 16 [place] [address] Cyril Borges MD 16 [place] [address] 06/14/2023 1:00 PM EDT Office Visit Cosmetic Surgery & Aesthetics [facility] 16 [place] [address] Conor Venegas PA-C [address] [place] [address] 06/19/2023 1:30 PM EDT Nurse Only Rheumatology [place] [address] [place] [address] Pf, Nurse Rheum [facility] [place] [address] 06/22/2023 12:30 PM EDT Telemedicine Orthopaedics [facility] 132 [facility] [place] [address] PA-C [address] [place] [address] 06/27/2023 1:20 PM EDT Office Visit Family Practice [facility] 132 [facility] [place] [address] Nikunj Plascencia MD 132 [facility] [place] [address] 07/03/2023 2:00 PM EDT Office Visit Nephrology, [facility] 200 [place] [address] Geovanni Linder MD [address] [place] [address] 07/13/2023 2:30 PM EDT Office Visit Pharmacy, [facility] 132 [facility] [address] [facility] 132 [place] [address] 08/23/2023 2:00 PM EDT Office Visit Podiatry [facility] 132 [place] [address] Eveline Layne, [facility] [address] [place] [address] 09/27/2023 8:30 AM EDT Appointment Radiology, [place] [address] [place] [address] 09/27/2023 9:30 AM EDT Office Visit Urology, [place] [address] [place] [address] Luis Manuel Sandy MD [address] [place] [address] 12/04/2023 1:00 PM EDT Cardiac Studies Cardiac Studies, [facility] 132 [facility] [address] 12/20/2023 2:30 PM EDT Imaging Radiology, [address] [place] [address] 12/20/2023 3:20 PM EDT Office Visit Rheumatology [address] [place] [address] John Yoder MD [address] [place], [place] [address] Scheduled Procedures Name Priority Associated Diagnoses Date/Ti [...] D LEVEL ONCE IN A LIFETIME-USE SMARTSET# 32002 Completed 06/10/2022, 05/28/2021, 06/20/2020, Additional history exists [...] this encounter Medical Devices Implanted Type Area Taxation Agent Device Identifier Shelf Expiration Date Model / Serial / Lot Kyphon Hv-R Bone Cement Implanted:Qty: 1 on 08/17/2016 by Michael Smith MD at OR [facility] N/A: Spine Thoracic 03/19/2019 C01A / C01A / [id number] Cement Bone Lv G 1119-140-01 - [id number] Implanted:Qty: 1 on 06/04/2018 by Duc Kimble MD at OR [facility] Right: Knee [employer] 11/19/2020-1119-1 40- / / [id number] Cement Bone Lv G 1119-140-01 - [id number] Implanted:Qty: 1 on 06/04/2018 by Duc Kimble MD at OR [facility] Right: Knee [employer] 06/19/2020-1119-1 40- / [id number] Persona The Personlized Knee System Vivacit-E Highly Crosslinked Polyethylene All-Poly Patella Cemented Implanted:Qty: 1 on 06/04/2018 by Duc Kimble MD at OR [facility] Right: Knee [employer] 06/19/2022 42-5402-0 00 / / [id number] Tibia Stem 5 Deg Rt Size F - [id number] Implanted:Qty: 1 on 06/04/2018 by Duc Kimble MD at OR [facility] Right: Knee [employer] 10/21/2027 42-5320-0 75-02 / / [id number] Persona The Personalized Knee System Femur Cemented Cr Standard Implanted:Qty: 1 on 06/04/2018 by Duc Kimble MD at OR [facility] Right: Knee [employer] 11/20/2027 42-5026-0 62-02 / / [id number] Persona The Personalized Knee System Vivacit-E Highly Crosslinked Polyethylene Articular Surface Medial Congruent Implanted:Qty: 1 on 06/04/2018 by Duc Kimble MD at OR [facility] Right: [employer]nee [employer] 11/19/2022 42-5221-0 07-12 / / [id number] Device Watchman Flx 24mm - [id number] Implanted:Qty: 1 on 10/06/2022 by Austin Penaloza MD at [facility] [employer] : INTRV CARD [id number] 03/07/2025 [id number] 40 / / [id number] Device Watchman Flx 27mm - [id number] Implanted:Qty: 1 on 10/06/2022 by Austin Penaloza MD at [facility] [employer] : INTRV CARD [id number] 08/07/2025 [id number] 70 / / [id number] documented as of this encounter Advance Directives [...] the patient have Health Care Power of Online Facilitator? No Care Teams Aviation Metalsmith Relationship Specialty Start Date End Date Nikunj Plascencia MD [address] [place] [address] PCP - General Family Medicine 10/31/19 documented as of this encounter
--- OUTSIDE RECORDS SUMMARY | 2023-07-29 04:05 | External Medical Summary | Summary of Care ---
Author Name Unknown Organization [facility] Address [address] [place] [address] Phone [phone] Care Team Providers Care Hot Mill Worker Name Role Phone Nikunj Plascencia MD Primary Care Provider [phone] Reason for Visit * Reason Onset Date Comments Chest Pain 05/29/2023 And SOB intermit tent Encounter Details Date Type Department Care Team (Late st Contact Info) Description 05/29/2023 Telephone [facility]iology [facility] [address] [place] [address] Michael Flannery CRNP [address] [place] [address] Chest Pain (And SOB intermittent ) Allergies Active Allergy Reactions Criticality Noted Date Comments Egg Shells Nausea/vomiting Medium 06/16/2018 Other reaction(s): GI SYMPTOMS Egg Yolk High 11/29/2019 Other reaction(s): GI upset Ibuprofen Other (Please comment) Medium 07/30/2010 Stomach upset Morphine Edema face/lips/tongue High 08/28/2021 Other reaction(s): LEGS SWELL documented as of this encounter (statuses as of 05/29/2023) Medications Medication Sig Dispensed Refills Start Date [...] Informant: Patient, Reported on 04/03/2023 Saline Nasal [place] 0.65 % Nasal Solution (Morris) Q6H 0 06/06/2022 Active Clobetasol Propionate 0.05 [...] as of this encounter (statuses as of 05/29/2023) Active Problems Problem Noted Date Diagnosed Date Renal stone 03/21/2023 Food insecurity 01/02/2023 Overview: Per [facility] Protocol Presence of Watchman left atrial appendage closu re device 12/19/2022 PAF (paroxysmal atrial fibrillation) 08/17/2022 Overview: Added automatically from request for surgery [id number] Nasal septal perforation 06/13/2022 Overview: Per ENT [...] as of this encounter (statuses as of 05/29/2023) Resolved Problems Problem Noted Date Diagnosed Date [...] 140/90 12/12/201111/09 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 07/30/2018 Overview: Barnard palsy Tinea 06/27/2011 07/30/2018 Mixed urge and stress incontinence 12/15/2008 10/08/2019 ADVANCE DIRECTIVE INFORMATION 06/17/2004 10/08/2019 documented as of this encounter (statuses as of 05/29/2023) Immunizations Name Administration Dates Next Due COVID-19 mRNA, LNP-s, No Pre serve, 2-Dose Series ([employer] - Payments Anytime | Anywhere) 10/05/2020,09/14/2020 Covid-19, Mrna, Lnp-s, Pf, B ivalent, 30 Mcg, IM, 12 yrs and above (Pfizer) 05/26/2022 Pneumococcal Conjugate Vacc, 13 Valent (Prevnar) 05/30/2016 Pneumococcal Conjugate Vacci ne, 20-valent ([id number]) 04/03/2023 Seasonal Influenza Virus Vac cine, Unspecified [...] encounter Miscellaneous Notes * Telephone Encounter - Trip Mccartney LPN - 05/29/2023 3:38 PM EDT Spoke to patient made her aware of message from michael flannery she is going to contact [facility] cardiology Trip Mccartney LPN 05/29/2023 3:39 [...] Patent states she can be reached at [phone] Trip Mccartney LPN 05/29/2023 11:04 AM documented in this encounter Plan of Treatment Upcoming Encounters Date Type Department Care Team (Late st Contact Info) Description 06/07/2023 12:45 PM EDT Procedure Only Urology, [place] [address] [place] [address] Luis Manuel Sandy MD [address] [place] [address] 06/07/2023 2:30 PM EDT Office Visit Dermatology [facility] [address] [place] [address] Cyril Borges MD [address] [place] [address] 06/14/2023 1:00 PM EDT Office Visit Cosmetic Surgery & Aesthetics [facility] [address] [place] [address] Conor Venegas PA-C [address] [place] [address] 06/19/2023 1:30 PM EDT Nurse [address] [address] Pf, Nurse Rheum [address] [facility] [place] [address] 06/22/2023 12:30 PM EDT Telemedicine Orthopaedics [facility] 132 [facility] [place] [address] PA-C [address] [place] [address] [address] [place] [address] 06/27/2023 1:20 PM EDT Office Visit Family Practice [facility] 132 [facility] [place] [address] Nikunj Plascencia MD 132 [facility] [place] [address] 07/03/2023 2:00 PM EDT Office Visit Nephrology, [facility] 200 [facility] [place] [address] Geovanni Linder MD [address] [place] [address] 07/13/2023 2:30 PM EDT Office Visit Pharmacy, [facility] 132 [facility] [place] [address] [facility] [place] [facility] [place] [address] 08/23/2023 2:00 PM EDT Office Visit Podiatry [facility] 132 [facility] [place] [address] Eveline Layne DPM 400 [facility] [place] [address] 09/27/2023 8:30 AM EDT Appointment Radiology, [address] [facility] [address] 09/27/2023 9:30 AM EDT Office Visit Urology, [place] [address] [place] [address] Luis Manuel Sandy MD [address] [place] [address] 12/04/2023 1:00 PM EDT Cardiac Studies Cardiac Studies, [facility] [address] [place] [address] 12/13/2023 9:30 AM EDT Office Visit Cardiology, [facility] [address] [place] [address] Austin Penaloza MD [address] [place] [address] 12/20/2023 2:30 PM EDT Imaging Radiology, [address] [place] [address] 12/20/2023 3:20 PM EDT Office Visit Rheumatology [address] [place] [address] John Yoder MD [address] [place] [address] [place] [address] Scheduled Procedures Name Priority Associated Diagnoses Date/Ti [...] D LEVEL ONCE IN A LIFETIME-USE SMARTSET# 56172 Completed 06/10/2022, 05/28/2021, 06/20/2020, Additional history exists [...] this encounter Medical Devices Implanted Type Area Stretcher And Drier Device Identifier Shelf Expiration Date Model / Serial / Lot Kyphon Hv-R Bone Cement Implanted:Qty: 1 on 08/17/2016 by [place] [facility]: Spine Thoracic 03/19/2019 C01A / C01A / [id number] Cement Bone Lv G 1119-140- - [id number] Implanted:Qty: 1 on 06/04/2018 by Duc Kimble MD at OR [facility] Right: Knee [employer] 11/19/2020-1119-1 40-01 / / [id number] Cement Bone Lv G 1119-140- - [id number] Implanted:Qty: 1 on 06/04/2018 by Duc Kimble MD at OR [facility] Right: Knee [employer] 06/19/20201119-1 40-01 / / [id number] Persona The Personlized Knee System Vivacit-E Highly Crosslinked Polyethylene All-Poly Patella Cemented Implanted:Qty: 1 on 06/04/2018 by Duc Kimble MD at OR [facility] Right: Knee [employer] 06/19/2022 42-5402-0 00-35 / / [id number] Tibia Stem 5 Deg Rt Size F - [id number] Implanted:Qty: 1 on 06/04/2018 by Duc Kimble MD at OR [facility] Right: Knee [employer] 10/21/2027 42-5320-0 75-02 / / [id number] Persona The Personalized Knee System Femur Cemented Cr Standard Implanted:Qty: 1 on 06/04/2018 by Duc Kimble MD at OR [facility] Right: Knee [employer] 11/20/2027 42-5026-0 62-02 / / [id number] Persona The Personalized Knee System Vivacit-E Highly Crosslinked Polyethylene Articular Surface Medial Congruent Implanted:Qty: 1 on 06/04/2018 by Duc Kimble MD at OR [facility] Right: Knee [employer] 11/19/2022 42-5221-0 07-12 / / [id number] Device Watchman Flx 24mm - [id number] Implanted:Qty: 1 on 10/06/2022 by Austin Penaloza MD [place] [facility] [employer] : INTRV CARD [id number] 03/07/2025 [id number] 40 / / [id number] Device Watchman Flx 27mm - [id number] Implanted:Qty: 1 on 10/06/2022 by Austin Penaloza MD at [facility] SCI[employer] : INTRV CARD [id number] 08/07/2025 [id number] 70 / / [id number] documented as of this encounter Advance Directives [...] the patient have Health Care Power of Tooth Cutter Pinion? No Care Teams Hot Mill Worker Relationship Specialty Start Date End Date Nikunj Plascencia MD 132 [facility] [place] [address] PCP - General Family Medicine 10/31/19 documented as of this encounter
--- OUTSIDE RECORDS SUMMARY | 2023-07-29 04:05 | External Medical Summary | Summary of Care ---
Author Name Unknown Organization [facility] Address [address] [place] [address] Phone [phone] Care Team Providers Care Equity Trader Name Role Phone Nikunj Plascencia MD Primary Care Provider [phone] Reason for Visit * Reason Onset Date Comments Chest Pain 05/29/2023 And SOB intermit tent Encounter Details Date Type Department Care Team (Late st Contact Info) Description 05/29/2023 Telephone Cardiology [facility] [address] [place] [address] Michael Flannery CRNP [address] [place] [address] Chest Pain (And SOB intermittent [...] Informant: Patient, Reported on 04/03/2023 Saline Nasal [place] 0.65 % Nasal Solution (Moore) Q6H 0 06/06/2022 Active Clobetasol Propionate 0.05 [...] stone 03/21/2023 Food insecurity 01/02/2023 Overview: Per [facility] Protocol Presence of Watchman left atrial appendage closu re device 12/19/2022 PAF (paroxysmal atrial fibrillation) 08/17/2022 Overview: Added automatically from request for surgery [id number] Nasal septal perforation 06/13/2022 Overview: Per ENT [...] 140/90 12/12/201111/09 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 07/30/2018 Overview: [place] palsy Tinea 06/27/2011 07/30/2018 Mixed urge and stress incontinence 12/15/2008 10/08/2019 ADVANCE DIRECTIVE INFORMATION 06/17/2004 10/08/2019 documented as of this encounter (statuses as of 05/30/2023) Immunizations Name Administration Dates Next Due COVID-19 mRNA, LNP-s, No Pre serve, 2-Dose Series (Cannae) 10/05/2020,09/14/2020 Covid-19, Mrna, Lnp-s, Pf, B ivalent, 30 Mcg, IM, 12 yrs and above (Pfizer) 05/26/2022 Pneumococcal Conjugate Vacc, 13 Valent (Prevnar) 05/30/2016 Pneumococcal Conjugate Vacci ne, 20-valent ([id number]) 04/03/2023 Seasonal Influenza Virus Vac cine, Unspecified [...] appointments after 06/13. Patient will be at [facility] for two appointments on [id number] of June, she is unable to make [...] michael flannery she is going to contact [facility] cardiology Trip Mccartney LPN 05/29/2023 [...] Patent states she can be reached at [phone] Trip Mccartney LPN 05/29/2023 11:04 AM documented in this encounter Plan of Treatment Upcoming Encounters Date Type Department Care Team (Late st Contact Info) Description 06/07/2023 12:45 PM EDT Procedure Only Urology, [place] [address] [place] [address] Luis Manuel Sandy MD [address] [place] [address] 06/07/2023 2:30 PM EDT Office Visit Dermatology [facility] [address] [place] [address] Cyril Borges MD [address] [place] [address] 06/14/2023 1:00 PM EDT Office Visit Cosmetic Surgery & Aesthetics [facility] [address] [place] [address] Conor Venegas PA-C [address] [place] [address] 06/19/2023 1:30 PM EDT Nurse Only Rheumatology [place] [id number] [facility] [place] [address] Pf, Nurse Rheum [facility] [place] [address] 06/22/2023 12:30 PM EDT Telemedicine Orthopaedics [facility] 132 [facility] [place] [address] PA-C [address] [place] [address] 06/27/2023 1:20 PM EDT Office Visit Family Practice [facility] 132 [facility] [place] [address] Nikunj [facility]ascencia MD 132 [facility] [place] [address] 07/03/2023 2:00 PM EDT Office Visit Nephrology, [facility] 200 [place] [address] Geovanni Linder MD [address] [place] [address] 07/13/2023 2:30 PM EDT Office Visit Pharmacy, [facility] 132 [place] [address] [facility] 132 [place] [address] 08/23/2023 2:00 PM EDT Office Visit Podiatry [facility] [address] [place] [address] Eveline Layne, [facility] [address] [place] [address] 09/27/2023 8:30 AM EDT Appointment Radiology, [place] [address] [place] [address] 09/27/2023 9:30 AM EDT Office Visit Urology, [place] [address] [place] [address] Luis Manuel Sandy MD [address] [place] [address] 12/04/2023 1:00 PM EDT Cardiac Studies Cardiac Studies, [facility] [address] 12/20/2023 2:30 PM EDT Imaging Radiology, [address] [place] [address] 12/20/2023 3:20 PM EDT Office Visit Rheumatology [address] [place] [address] John Yoder MD [address] [place], [place] [address] Scheduled Procedures Name Priority Associated Diagnoses Date/Ti [...] D LEVEL ONCE IN A LIFETIME-USE SMARTSET# 94390 Completed 06/10/2022, 05/28/2021, 06/20/2020, Additional history exists [...] this encounter Medical Devices Implanted Type Area Special Agent Device Identifier Shelf Expiration Date Model / Serial / Lot Kyphon Hv-R Bone Cement Implanted:Qty: 1 on 08/17/2016 by Michael Smith MD at [place] [facility] [place]/A: Spine Thoracic 03/19/2019 C01A / C01A / [id number] Cement Bone Lv G 1119-140-01 - [id number] Implanted:Qty: 1 on 06/04/2018 by Duc Kimble MD at OR [facility] Right: Knee [employer] 11/19/2020-1119-1 40- / / [id number] Cement Bone Lv G 1119-140-01 - [id number] Implanted:Qty: 1 on 06/04/2018 by Duc Kimble MD at OR [facility] Right: Knee [employer] 06/19/2020-1119-1 40- / [id number] Persona The Personlized Knee System Vivacit-E Highly Crosslinked Polyethylene All-Poly Patella Cemented Implanted:Qty: 1 on 06/04/2018 by Duc Kimble MD at OR [facility] Right: Knee [employer] 06/19/2022 42-5402-0 00 / / [id number] Tibia Stem 5 Deg Rt Size F - [id number] Implanted:Qty: 1 on 06/04/2018 by Duc Kimble MD at OR [facility] Right: Knee [employer] 10/21/2027 42-5320-0 75-02 / / [id number] Persona The Personalized Knee System Femur Cemented Cr Standard Implanted:Qty: 1 on 06/04/2018 by Duc Kimble MD at OR [facility] Right: Knee [employer] 11/20/2027 42-5026-0 62-02 / / [id number] Persona The Personalized Knee System Vivacit-E Highly Crosslinked Polyethylene Articular Surface Medial Congruent Implanted:Qty: 1 on 06/04/2018 by Duc Kimble MD at OR [facility] Right: Knee [employer] 11/19/2022 42-5221-0 07-12 / / [id number] Device Watchman Flx 24mm - [id number] Implanted:Qty: 1 on 10/06/2022 by Austin Penaloza MD at [facility] [place] : INTRV CARD [id number] 03/07/2025 [id number] 40 / / [id number] Device Watchman Flx 27mm - [id number] Implanted:Qty: 1 on 10/06/2022 by Austin Penaloza MD at [facility] [place] : INTRV CARD [id number] 08/07/2025 [id number] 70 / / [id number] documented as of this encounter Advance Directives [...] the patient have Health Care Power of Lion Trainer? No Care Teams Equity Trader Relationship Specialty Start Date End Date Nikunj Plascencia MD [address] [place] [address] PCP - General Family Medicine 10/31/19 documented as of this encounter
--- OUTSIDE RECORDS SUMMARY | 2023-07-29 04:06 | External Medical Summary | Summary of Care ---
Author Name Unknown Organization [facility] Address [address] [place] [address] Phone [phone] Care Team Providers Care Rivet Catcher Name Role Phone Nikunj Plascencia MD Primary Care Provider [phone] Reason for Visit * Reason Comments Cystoscopy Stent removal Encounter Details Date Type Department Care Team (Late st Contact Info) Description 05/25/2023 10:00 AM EDT Procedure Only Urology, [place] [address] [place] [address] Luis Manuel Sandy MD [address], [place] [id number] Dysuria* Allergies Active Allergy Reactions Criticality Noted Date Comments Egg Shells Nausea/vomiting Medium 06/16/2018 Other reaction(s): GI SYMPTOMS Egg Yolk High 11/29/2019 Other reaction(s): GI upset Ibuprofen Other (Please comment) Medium 07/30/2010 Stomach upset Morphine Edema face/lips/tongue High 08/28/2021 Other reaction(s): LEGS SWELL documented as of this encounter (statuses as of 05/25/2023) Medications Medication Sig Dispensed Refills Start Date [...] Informant: Patient, Reported on 04/03/2023 Saline Nasal [place] 0.65 % Nasal Solution ([place]) Q6H 0 06/06/2022 Active Clobetasol Propionate 0.05 [...] as of this encounter (statuses as of 05/25/2023) Active Problems Problem Noted Date Diagnosed Date Renal stone 03/21/2023 Food insecurity 01/02/2023 Overview: Per [facility] Protocol Presence of Watchman left atrial appendage closu re device 12/19/2022 PAF (paroxysmal atrial fibrillation) 08/17/2022 Overview: Added automatically from request for surgery [id number] Nasal septal perforation 06/13/2022 Overview: Per ENT [...] as of this encounter (statuses as of 05/25/2023) Resolved Problems Problem Noted Date Diagnosed Date [...] 140/90 12/12/201111/09 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 07/30/2018 Overview: Economy palsy Tinea 06/27/2011 07/30/2018 Mixed urge and stress incontinence 12/15/2008 10/08/2019 ADVANCE DIRECTIVE INFORMATION 06/17/2004 10/08/2019 documented as of this encounter (statuses as of 05/25/2023) Immunizations Name Administration Dates Next Due COVID-19 mRNA, LNP-s, No Pre serve, 2-Dose Series ([employer]) 10/05/2020,09/14/2020 Covid-19, Mrna, Lnp-s, Pf, B ivalent, 30 Mcg, IM, 12 yrs and above ([employer] TV) 05/26/2022 Pneumococcal Conjugate Vacc, 13 Valent (Prevnar) 05/30/2016 Pneumococcal Conjugate Vacci ne, 20-valent ([id number]) 04/03/2023 Seasonal Influenza Virus Vac cine, Unspecified [...] Sign Reading Time Taken Comments Blood Pressure 171/75 05/25/2023 9:43 AM EDT Pulse 73 05/25/2023 9:43 AM EDT Temperature 36.9 C (98.5 F) 05/25/2023 9:43 AM ED T Respiratory Rate - - Oxygen [...] Notes * Luis Manuel Sandy MD - 05/25/2023 9:56 AM EDT Pt presented for cystoscopy. Unfortunately has positive urine today. Will send for culture. Will start abx. RTC 2 weeks for stent removal. documented in this encounter Plan of Treatment Upcoming Encounters Date Type Department Care Team (Late st Contact Info) Description 06/07/2023 12:45 PM EDT Procedure Only Urology, [place] [address] [place] [address] Luis Manuel Sandy MD [address] [place] [address] 06/07/2023 2:30 PM EDT Office Visit Dermatology [facility] [address] [place] [address] Cyril Borges MD 16 [place] [address] 06/14/2023 1:00 PM EDT Office Visit Cosmetic Surgery & Aesthetics [facility] [address] [place] [address] Conor Venegas PA-C [address] [place] [address] 06/19/2023 1:30 PM EDT Nurse Only [place]umatology [facility] [address] [facility] [place] [address] Pf, Nurse Rheum [address] [place] [address] 06/22/2023 12:30 PM EDT Telemedicine Orthopaedics [facility] [address] [facility] [place] [address] PA-C [address] [place], [place] [phone] 06/27/2023 1:20 PM EDT Office Visit Family Practice [facility] 132 [facility] [place] [address] Nikunj Plascencia MD 132 [place] [address] 07/03/2023 2:00 PM EDT Office Visit Nephrology, [place] 200 [facility] [place], [place] [address] Geovanni Linder MD [address] [place], [place] [address] 07/13/2023 2:30 PM EDT Office Visit Pharmacy, [facility] 132 [place] [address] [facility] 132 [place] [address] 08/23/2023 2:00 PM EDT Office Visit Podiatry [facility] [address] [place] [address] Eveline Layne, [facility] [address] [place] [address] 09/27/2023 8:30 AM EDT Appointment Radiology, [place] [address] [place] [address] 09/27/2023 9:30 AM EDT Office Visit Urology, [place] [address] [place] [address] Luis Manuel Sandy MD [address] [place] [address] 12/04/2023 1:00 PM EDT Cardiac Studies Cardiac Studies, [facility] [address] [place] [address] 12/13/2023 9:30 AM EDT Office Visit Cardiology, [facility] [address] [place] [address] Austin Penaloza MD [address] [place] [address] 12/20/2023 2:30 PM EDT Imaging Radiology, [place] [address] [facility] [place] [address] 12/20/2023 3:20 PM EDT Office Visit Rheumatology [facility] [address] [place] [address] John Yoder MD [address] [place] [address] Scheduled Orders Name Type Priority Associated Diagnoses Orde r Schedule CULTURE, URINE, QUANTITATIVE Lab Routine Dysuria Expected: 05/25/2023, Expires: 05/24/2024 Scheduled Procedures Name Priority Associated Diagnoses Date/Ti me ROBOTIC ARTHROPLASTY KNEE TOTAL Knee osteoarthritis COLONOSCOPY FLEXIBLE PROXIMA L DIAGNOSTIC Recall History of colonic polyps Health Maintenance Due Date Last Done Comments Zoster Vaccines (1 of 2) 1974 HOME BP CUFF VALIDATION YEARLY 04/02/2020 04/02/2019 COVID-19 Vaccine ( season) 2022 05/26/2022, 10/05/2020, 09/14/2020 Mammogram 11/30/2022 11/30/2021, 05/22, 06/10/2021, Additional history exists Depression Screening 12/09/2022 12/09/2021 Albumin/Creatinine Ratio 06/14/2023 06/13/2022, 02/20 GFR 10/29/2023 [...] D LEVEL ONCE IN A LIFETIME-USE SMARTSET# 07153 Completed 06/10/2022, 05/28/2021, 06/20/2020, Additional history exists [...] this encounter Medical Devices Implanted Type Area Neurobiologist Device Identifier Shelf Expiration Date Model / Serial / Lot Kyphon Hv-R Bone Cement Implanted:Qty: 1 on 08/17/2016 [place] Smith [place] [facility]: Spine Thoracic 03/19/2019 C01A / C01A / [id number] Cement Bone G 1119-140-01 - [id number] Implanted:Qty: 1 on 06/04/2018 by Duc Kimble MD at OR [facility] Right: Knee [employer] 11/19/2020-1119-1 [id number] Cement Bone G 1119-140-01 - [id number] Implanted:Qty: 1 on 06/04/2018 by Duc Kimble MD at OR [facility] Right: Knee [employer] 06/19/2020-1119-1 40 [id number] Persona The Personlized Knee System Vivacit-E Highly Crosslinked Polyethylene All-Poly Patella Cemented Implanted:Qty: 1 on 06/04/2018 by Duc Kimble MD at OR [facility] Right: Knee [employer] 06/19/2022 42-5402-0 00-35 / / [id number] Tibia Stem 5 Deg Rt Size F - [id number] Implanted:Qty: 1 on 06/04/2018 by Duc Kimble MD at OR [facility] Right: Knee [employer] 10/21/2027 42-5320-0 75-02 / / [id number] Persona The Personalized Knee System Femur Cemented Cr Standard Implanted:Qty: 1 on 06/04/2018 by Duc Kimble MD at OR [facility] Right: Knee [employer] 11/20/2027 42-5026-0 62-02 / / [id number] Persona The Personalized Knee System Vivacit-E Highly Crosslinked Polyethylene Articular Surface Medial Congruent Implanted:Qty: 1 on 06/04/2018 by Duc Kimble MD at OR [facility] Right: Knee [employer] 11/19/2022 42-5221-0 07-12 / / [id number] Device Watchman Flx 24mm - [id number] Implanted:Qty: 1 on 10/06/2022 by Austin Penaloza [place] [facility] [employer] : INTRV CARD [id number] 03/07/2025 [id number] 40 / / [id number] Device Watchman Flx 27mm - [id number] Implanted:Qty: 1 on 10/06/2022 by Austin Penaloza MD at [facility] [place] [employer] : INTRV CARD [id number] 08/07/2025 [id number] 70 / / [id number] documented as of this encounter Procedures Procedure Name Priority Date/Time Associated Diagnosis Comments URINALYSIS, POINT OF CARE [facility] 05/25/2023 9:48 AM EDT documented in this encounter Results * (ABNORMAL) URINALYSIS, POINT OF CARE (05/25/2023 9:48 AM EDT) Color, Urine Red(A) Light Yellow, Yellow 05/25/2023 9:50 AM EDT [facility] Clarity, Urine Cloudy(A) Clear 05/25/2023 9:50 AM EDT [facility] Glucose, Urine 100(A) Negative mg/dL 05/25/2023 9:50 AM EDT [facility] Bilirubin, Urine Small(A) Negative 05/25/2023 9:50 AM EDT [facility] Ketone, Urine Trace(A) Negative mg/dL 05/25/2023 9:50 AM EDT [facility] Specific [place], Urine 1.025 1.003 - 1.030 05/25/2023 9:50 AM EDT [facility] Blood, Urine Large(A) Negative 05/25/2023 9:50 AM EDT [facility] pH, Urine 5.5 5.0, 5.5, 6.0, 6.5, 7.0, 7.5 units 05/25/2023 9:50 AM EDT [facility] Protein, Urine >=300(A) Negative mg/dL 05/25/2023 9:50 AM EDT [facility] Urobilinogen, Urine 1.0 0.2, 1.0 mg/dL 05/25/2023 9:50 AM EDT [facility] Nitrite, Urine Positive( A) Negative 05/25/2023 9:50 AM EDT [facility] Esterase, Urine Large(A) Negative 05/25/2023 9:50 AM EDT [facility] Urine 05/25/2023 9:48 AM EDT 05/25/2023 9:50 AM EDT Luis Manuel Sandy MD LAB POINT OF CARE TE ST DOCKED DEVICE UNSOLICITED RESULTS Performing Organization Address City/State/[facility] Co de Phone Number [facility] [address] [place] [address] documented in this encounter Visit Diagnoses Diagnosis Dysuria- Primary [...] the patient have Health Care Power of Ornamental Brick Installer? No Care Teams Rivet Catcher Relationship Specialty Start Date End Date Nikunj Plascencia MD [address] [place] [address] PCP - General Family Medicine 10/31/19 documented as of this encounter
--- OUTSIDE RECORDS SUMMARY | 2023-07-29 04:06 | External Medical Summary ---
Author Name Unknown Address Unknown Organization K01:[facility] [place] [address] [facility] Laboratory Report Ordering Provider Test Date Status DARYL RAYMOND 05/25/2023 11:05:49 Final Observation Date Value Abnormality Reference (Units) Status Bacteria identified in Specimen by Culture 05/25/2023 11:05:49 No significant growth Final Test: Culture, Urine, Quanti tative
Specimen Source: Urine, Clean Catch
Specimen Type: Urine
Specimen Date: 05/25/2023 11:05 AM
Result Date: 05/26/2023 9:23 AM
Result Status: Final result
Resulting Lab: [facility]
[address]
[place] [address]

CULTURE

No significant growth

null Performing Location [facility] [address] [facility] [place] [address]
--- OUTSIDE RECORDS SUMMARY | 2023-07-29 04:06 | External Medical Summary | Summary of Care ---
Author Name Unknown Organization [facility] Address [address] [place] [address] Phone [phone] Care Team Providers Care Machine Operator Hay Stacker Name Role Phone Nikunj Plascencia MD Primary Care Provider [phone] Reason for Visit * Reason Comments Cystoscopy Stent removal Encounter Details Date Type Department Care Team (Late st Contact Info) Description 05/25/2023 10:00 AM EDT Procedure Only Urology, [place] [address] [place] [address] Luis Manuel Sandy MD [address] [place], [place] [id number] Dysuria* Allergies Active Allergy Reactions Criticality Noted [...] Informant: Patient, Reported on 04/03/2023 Saline Nasal [place] 0.65 % Nasal Solution ([place]) Q6H 0 06/06/2022 Active Clobetasol Propionate 0.05 [...] Overview: Added automatically from request for surgery [id number] Nasal septal perforation 06/13/2022 Overview: Per ENT [...] 140/90 12/12/201111/09 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 07/30/2018 Overview: [place] palsy Tinea 06/27/2011 07/30/2018 Mixed urge and stress incontinence 12/15/2008 10/08/2019 ADVANCE DIRECTIVE INFORMATION 06/17/2004 10/08/2019 documented as of this encounter (statuses as of 05/25/2023) Immunizations Name Administration Dates Next Due COVID-19 mRNA, LNP-s, No Pre serve, 2-Dose Series ([employer]) 10/05/2020,09/14/2020 Covid-19, Mrna, Lnp-s, Pf, B ivalent, 30 Mcg, IM, 12 yrs and above ([employer]) 05/26/2022 Pneumococcal Conjugate Vacc, 13 Valent (Prevnar) 05/30/2016 Pneumococcal Conjugate Vacci ne, 20-valent ([id number]) 04/03/2023 Seasonal Influenza Virus Vac cine, Unspecified [...] for stent removal. documented in this encounter Miscellaneous Notes * Addendum Note - Kaci Dickerson, Student - 05/25/2023 11:20 AM EDTAddended by: KACI DICKERSON on: 05/25/2023 11:20 AM Modules accepted: Orders documented in this encounter Plan of Treatment Upcoming Encounters Date Type Department Care Team (Late st Contact Info) Description 06/07/2023 12:45 PM EDT Procedure Only Urology, [place] [address] [place] [address] Luis Manuel Sandy MD [address] [place] [address] 06/07/2023 2:30 PM EDT Office Visit Dermatology [facility] 16 [place] [address] Cyril Borges MD 16 [place] [address] 06/14/2023 1:00 PM EDT Office Visit Cosmetic Surgery & Aesthetics [facility] [address] [place] [address] Conor Venegas PA-C [address] [place], [place] [id number] 06/19/2023 1:30 PM EDT Nurse Only Rheumatology [place] [address] [place] [address] Pf, Nurse Rheum [facility] [place] [address] 06/22/2023 12:30 PM EDT Telemedicine Orthopaedics [facility] [place] [address] PA-C [address] [place] [address] 06/27/2023 1:20 PM EDT Office Visit Family Practice [facility] 132 [place] [address] Nikunj [facility]ascencia MD [facility] [place] [address] 07/03/2023 2:00 PM EDT Office Visit Nephrology, [facility] [place] [address] Geovanni Linder MD [address] [place], [place] [address] 07/13/2023 2:30 PM EDT Office Visit Pharmacy, [facility] 132 [place] [address] [facility] 132 [facility] [place] [address] 08/23/2023 2:00 PM EDT Office Visit Podiatry [facility] 132 [place] [address] Eveline Layne, [address] [address] 09/27/2023 8:30 AM EDT Appointment Radiology, [place] [address] [place] [address] 09/27/2023 9:30 AM EDT Office Visit Urology, [place] [address] [place] [address] Luis Manuel Sandy MD [address] [place] [address] 12/04/2023 1:00 PM EDT Cardiac Studies Cardiac Studies, [facility] [address] 12/13/2023 9:30 AM EDT Office Visit Cardiology, [facility] [address] [facility] [address] Austin Penaloza MD [address] [place] [address] 12/20/2023 2:30 PM EDT Imaging Radiology, [address] [place] [address] 12/20/2023 3:20 PM EDT Office Visit Rheumatology [address] [place] [address] John Yoder MD [address] [place] [address] [place] [address] Pending Results Name Type Priority Associated Diagnoses Date /Time CULTURE, URINE, QUANTITATIVE Lab Routine Dysuria 05/25/2023 11:05 AM EDT EXTRA TUBES Lab Routine 05/25/2023 11 :05 AM EDT EXTRA URINE MARBLE TOP Lab Routine 11:05 AM EDT Scheduled Orders Name Type Priority Associated Diagnoses [...] D LEVEL ONCE IN A LIFETIME-USE SMARTSET# [id number] Completed 06/10/2022, 05/28/2021, 06/20/2020, Additional history exists [...] this encounter Medical Devices Implanted Type Area Mitten Stitcher Device Identifier Shelf Expiration Date Model / Serial / Lot Kyphon Hv-R Bone Cement Implanted:Qty: 1 on 08/17/2016 by Michael Smith MD at [place] [facility] N/A: Spine Thoracic 03/19/2019 C01A / C01A / [id number] Cement Bone Lv G 1119-140-01 - [id number] Implanted:Qty: 1 on 06/04/2018 by Duc Kimble MD at OR [facility] Right: Knee [employer] 11/19/2020-1119-1 40-01 / / [id number] Cement Bone Lv G 1119-140-01 - [id number] Implanted:Qty: 1 on 06/04/2018 by Duc Kimble MD at OR [facility] Right: Knee [employer] 06/19/2020-1119-1 40-01 / / [id number] Persona The Personlized Knee System Vivacit-E Highly Crosslinked Polyethylene All-Poly Patella Cemented Implanted:Qty: 1 on 06/04/2018 by Duc Kimble MD at OR [facility] Right: Knee [employer] 06/19/2022 42-5402-0 00-35 / / [id number] Tibia Stem 5 Deg Rt Size F - [id number] Implanted:Qty: 1 on 06/04/2018 by Duc Kimble MD at OR [facility] Right: Knee [employer] 10/21/2027 42-5320-0 75-02 / / [id number] Persona The Personalized Knee System Femur Cemented Cr Standard Implanted:Qty: 1 on 06/04/2018 by Duc Kimble MD at OR [facility] Right: Knee [employer] 11/20/2027 42-5026-0 62-02 / / [id number] Persona The Personalized Knee System Vivacit-E Highly Crosslinked Polyethylene Articular Surface Medial Congruent Implanted:Qty: 1 on 06/04/2018 by Duc Kimble MD at OR [facility] Right: Knee [employer] 11/19/2022 42-5221-0 07-12 / / [id number] Device Watchman Flx 24mm - [id number] Implanted:Qty: 1 on 10/06/2022 by Austin Penaloza MD at [facility] [employer] : INTRV CARD [id number] 03/07/2025 [id number] 40 / / [id number] Device Watchman Flx 27mm - [id number] Implanted:Qty: 1 on 10/06/2022 by Austin Penaloza MD at [facility] [employer] : INTRV CARD [id number] 08/07/2025 [id number] 70 / / [id number] documented as of this encounter Procedures Procedure Name Priority Date/Time Associated Diagnosis Comments URINALYSIS, POINT OF CARE REJI 05/25/2023 9:48 AM EDT documented in this encounter Results * (ABNORMAL) URINALYSIS, POINT OF CARE (05/25/2023 9:48 AM EDT) Color, Urine Red(A) Light Yellow, Yellow 05/25/2023 9:50 AM EDT [facility] Clarity, Urine Cloudy(A) Clear 05/25/2023 9:50 AM EDT [facility] Glucose, Urine 100(A) Negative mg/dL 05/25/2023 9:50 AM EDT [facility] Bilirubin, Urine Small(A) Negative 05/25/2023 9:50 AM EDT [facility] Ketone, Urine Trace(A) Negative mg/dL 05/25/2023 9:50 AM EDT [facility] Specific [place], Urine 1.025 1.003 - 1.030 05/25/2023 9:50 AM EDT [facility] Blood, Urine Large(A) Negative 05/25/2023 9:50 AM EDT [facility] pH, Urine 5.5 5.0, 5.5, 6.0, 6.5, 7.0, 7.5 units 05/25/2023 9:50 AM EDT [facility] Protein, Urine >=300(A) Negative mg/dL 05/25/2023 9:50 AM EDT [facility] Urobilinogen, Urine 1.0 0.2, 1.0 mg/dL 05/25/2023 9:50 AM EDT [facility] Nitrite, Urine Positive( A) Negative 05/25/2023 9:50 AM EDT [facility] Esterase, Urine Large(A) Negative 05/25/2023 9:50 AM EDT [facility] Urine 05/25/2023 9:48 AM EDT 05/25/2023 9:50 AM EDT Luis Manuel Sandy MD LAB POINT OF CARE TE ST DOCKED DEVICE UNSOLICITED RESULTS [facility] [address] [facility] [place] [address] documented in this encounter Visit Diagnoses Diagnosis [...] the patient have Health Care Power of Machine Icer? No Care Teams Machine Operator Hay Stacker Relationship Specialty Start Date End Date Nikunj Plascencia MD 132 [facility] [place] [address] PCP - General Family Medicine 10/31/19 documented as of this encounter
--- OUTSIDE RECORDS SUMMARY | 2023-07-29 04:06 | External Medical Summary | Summary of Care ---
Author Name Unknown Organization [facility] Address [address] [place] [address] Phone [phone] Care Team Providers Care Metal Precision Machine Assembler Name Role Phone Nikunj Plascencia MD Primary Care Provider [phone] Reason for Visit * Reason Comments Cystoscopy Stent removal Encounter Details Date Type Department Care Team (Late st Contact Info) Description 05/25/2023 10:00 AM EDT Procedure Only Urology, [place] [address] [place] [address] Luis Manuel Sandy MD [address], [place] [id number] Dysuria* Allergies Active Allergy Reactions Criticality Noted [...] Informant: Patient, Reported on 04/03/2023 Saline Nasal Union 0.65 % Nasal Solution (Wirt) Q6H 0 06/06/2022 Active Clobetasol Propionate 0.05 [...] Overview: Added automatically from request for surgery [id number] Nasal septal perforation 06/13/2022 Overview: Per ENT [...] 140/90 12/12/201111/09 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 07/30/2018 Overview: Bricelyn palsy Tinea 06/27/2011 07/30/2018 Mixed urge and stress incontinence 12/15/2008 10/08/2019 ADVANCE DIRECTIVE INFORMATION 06/17/2004 10/08/2019 documented as of this encounter (statuses as of 05/25/2023) Immunizations Name Administration Dates Next Due COVID-19 mRNA, LNP-s, No Pre serve, 2-Dose Series (LIANAI) 10/05/2020,09/14/2020 Covid-19, Mrna, Lnp-s, Pf, B ivalent, 30 Mcg, IM, 12 yrs and above (LIANAI) 05/26/2022 Pneumococcal Conjugate Vacc, 13 Valent (Prevnar) 05/30/2016 Pneumococcal Conjugate Vacci ne, 20-valent ([id number]) 04/03/2023 Seasonal Influenza Virus Vac cine, Unspecified [...] 06/07/2023 12:45 PM EDT Procedure Only Urology, [place] [address] [place] [address] Luis Manuel Sandy MD [address] [place] [address] 06/07/2023 2:30 PM EDT Office Visit Dermatology [facility] [address] [place] [address] Cyril Borges MD [address] [place] [address] 06/14/2023 1:00 PM EDT Office Visit Cosmetic Surgery & Aesthetics [facility] [address] [place] [address] Conor Venegas PA-C [address] [place] [address] 06/19/2023 1:30 PM EDT Nurse Only Rheumatology [facility] [address] [facility] [place] [address] Pf, Nurse Rheum [address] [place] [address] 06/22/2023 12:30 PM EDT Telemedicine Orthopaedics [facility] [address] [facility] [place] [address] PA-C [address] [place], [place] [id number] 06/27/2023 1:20 PM EDT Office Visit Family Practice [facility] [address] [facility] [place] [address] Nikunj Plascencia MD [address] [facility] [address] 07/03/2023 2:00 PM EDT Office Visit Nephrology, [place] [address] [facility] [place], [place] [address] Geovanni Linder MD [address] [place], [place] [address] 07/13/2023 2:30 PM EDT Office Visit Pharmacy, [facility] [address] [place] [address] [facility] [address] [place] [address] 08/23/2023 2:00 PM EDT Office Visit Podiatry [facility] [address] [place] [address] Eveline Layne, [facility] [address] [place] [address] 09/27/2023 8:30 AM EDT Appointment Radiology, [place] [address] [place] [address] 09/27/2023 9:30 AM EDT Office Visit Urology, [place] [address] [place] [address] Luis Manuel Sandy MD [address] [place] [address] 12/04/2023 1:00 PM EDT Cardiac Studies Cardiac Studies, [facility] [address] [place] [address] 12/13/2023 9:30 AM EDT Office Visit Cardiology, [facility] [address] [place] [address] Austin Penaloza MD [address] [place] [address] 12/20/2023 2:30 PM EDT Imaging Radiology, [place] [address] [facility] [place] [address] 12/20/2023 3:20 PM EDT Office Visit Rheumatology [facility] [address] [place] [address] John Yoder MD [address] [place] [address] Scheduled Orders Name Type Priority Associated Diagnoses [...] D LEVEL ONCE IN A LIFETIME-USE SMARTSET# [id number] Completed 06/10/2022, 05/28/2021, 06/20/2020, Additional history exists [...] this encounter Medical Devices Implanted Type Area Compressed Yeast Supervisor Device Identifier Shelf Expiration Date Model / Serial / Lot Kyphon Hv-R Bone Cement Implanted:Qty: 1 on 08/17/2016 by Michael Smith MD at OR [facility] N/A: Spine Thoracic 03/19/2019 C01A / C01A / [id number] Cement Bone G 1119-140-01 - [id number] Implanted:Qty: 1 on 06/04/2018 by Duc Kimble MD at OR [facility] Right: Knee [employer] 11/19/2020-1119-1 [id number] Cement Bone G 1119-140-01 - [id number] Implanted:Qty: 1 on 06/04/2018 by Duc Kimble MD at OR [facility] Right: Knee [employer] 06/19/2020-1119-1 40 [id number] Persona The Personlized Knee System Vivacit-E Highly Crosslinked Polyethylene All-Poly Patella Cemented Implanted:Qty: 1 on 06/04/2018 by Duc Kimble MD at OR [facility] Right: Knee [employer] 06/19/2022 42-5402-0 00-35 / / [id number] Tibia Stem 5 Deg Rt Size F - [id number] Implanted:Qty: 1 on 06/04/2018 by Duc Kimble MD at OR [facility] Right: Knee [employer] 10/21/2027 42-5320-0 75-02 / / [id number] Person[employer] The Personalized Knee System Femur Cemented Cr Standard Implanted:Qty: 1 on 06/04/2018 by Duc Kimble MD at OR [facility] Right: Knee [employer] 11/20/2027 42-5026-0 62-02 / / [id number] Persona The Personalized Knee System Vivacit-E Highly Crosslinked Polyethylene Articular Surface Medial Congruent Implanted:Qty: 1 on 06/04/2018 by Duc Kimble MD at OR [facility] Right: Knee [employer] 11/19/2022 42-5221-0 07-12 / / [id number] Device Watchman Flx 24mm - [id number] Implanted:Qty: 1 on 10/06/2022 by Austin Penaloza MD at [facility] [employer] : INTRV CARD [id number] 03/07/2025 [id number] 40 / / [id number] Device Watchman Flx 27mm - [id number] Implanted:Qty: 1 on 10/06/2022 by Austin Penaloza MD at [facility] [employer] : INTRV CARD [id number] 08/07/2025 [id number] 70 / / [id number] documented as of this encounter Procedures Procedure Name Priority Date/Time Associated Diagnosis Comments URINALYSIS, POINT OF CARE [facility] 05/25/2023 9:48 AM EDT documented in this encounter Results * (ABNORMAL) URINALYSIS, POINT OF CARE (05/25/2023 9:48 AM EDT) Color, Urine Red(A) Light Yellow, Yellow 05/25/2023 9:50 AM EDT [employer] Clarity, Urine Cloudy(A) Clear 05/25/2023 9:50 AM EDT [facility] Glucose, Urine 100(A) Negative mg/dL 05/25/2023 9:50 AM EDT [facility] Bilirubin, Urine Small(A) Negative 05/25/2023 9:50 AM EDT [facility] Ketone, Urine Trace(A) Negative mg/dL 05/25/2023 9:50 AM EDT [facility] Specific [place], Urine 1.025 1.003 - 1.030 05/25/2023 9:50 AM EDT [facility] Blood, Urine Large(A) Negative 05/25/2023 9:50 AM EDT [facility] pH, Urine 5.5 5.0, 5.5, 6.0, 6.5, 7.0, 7.5 units 05/25/2023 9:50 AM EDT [facility] Protein, Urine >=300(A) Negative mg/dL 05/25/2023 9:50 AM EDT [facility] Urobilinogen, Urine 1.0 0.2, 1.0 mg/dL 05/25/2023 9:50 AM EDT [facility] Nitrite, Urine Positive( A) Negative 05/25/2023 9:50 AM EDT [facility] Esterase, Urine Large(A) Negative 05/25/2023 9:50 AM EDT [facility] Urine 05/25/2023 9:48 AM EDT 05/25/2023 9:50 AM EDT Luis Manuel Sandy MD LAB POINT OF CARE TE ST DOCKED DEVICE UNSOLICITED RESULTS Performing Organization Address [facility]/State[facility] Co de Phone Number [facility] [address] [place] [address] documented in this encounter Visit Diagnoses Diagnosis [...] the patient have Health Care Power of Java Web Application Developer? No Care Teams Metal Precision Machine Assembler Relationship Specialty Start Date End Date Nikunj Plascencia MD [address] [place] [address] PCP - General Family Medicine 10/31/19 documented as of this encounter
--- OUTSIDE RECORDS SUMMARY | 2023-07-29 04:06 | External Medical Summary ---
Author Name Unknown Address Unknown Organization : Laboratory Report Ordering Provider Test Date Status DARYL RAYMOND 05/25/2023 09:48:00 Final Observation Date Value Abnormality Reference (Units ) Status Color of Urine by Auto 05/25/2023 09:48:00 Red Abnormal Light Yellow, Yellow Final Clarity, Urine 05/25/2023 09:48:00 Cloudy Abnormal Clear Final Glucose [Mass/volume] in Urine by Automated test strip 05/25/2023 09:48:00 100 Abnormal Negative (mg/dL) Final Bilirubin.total [Presence] in Urine by Automated test strip 05/25/2023 09:48:00 Small Abnormal Negative Final Ketones [Mass/volume] in Urine by Automated test strip 05/25/2023 09:48:00 Trace Abnormal Negative (mg/dL) Final Specific gravity, Urine 05/25/2023 09:48:00 1.025 1.003-1.030 Final Hemoglobin [Presence] in Urine by Automated test strip 05/25/2023 09:48:00 Large Abnormal Negative Final pH, Urine 05/25/2023 09:48:00 5.5 5.0, 5.5, 6.0, 6.5, 7.0, 7.5 (units) Final Protein [Mass/volume] in Urine by Automated test strip 05/25/2023 09:48:00 >=300 Abnormal Negative (mg/dL) Final Urobilinogen, Urine 05/25/2023 09:48:00 1.0 0.2, 1.0 (mg/dL) Final Nitrite [Presence] in Urine by Automated test strip 05/25/2023 09:48:00 Positive Abnormal Negative Final Leukocyte esterase [Presence] in Urine by Automated test strip 05/25/2023 09:48:00 Large Abnormal Negative Final Performing Location
--- OUTSIDE RECORDS SUMMARY | 2023-07-29 04:07 | External Medical Summary | Summary of Care ---
Author Name Unknown Organization [facility] Address [address] [place] [address] Phone [phone] Care Team Providers Care Community Planner Name Role Phone Nikunj Plascencia MD Primary Care Provider [phone] Reason for Visit * Reason Comments Follow Up Bilateral feet Encounter Details Date Type Department Care Team (Late st Contact Info) Description 05/24/2023 2:00 PM EDT Office Visit Podiatry [facility] [address] [facility] [place] [address] Eveline Layne, [address] [place] [address] Sinus tarsitis of left foot*; Plantar fasciitis, right; Stage 3a chronic kidney disease (HCC); Pre-ulcerative calluses; Pain in both feet Allergies Active Allergy Reactions Criticality Noted Date Comments Egg Shells Nausea/vomiting Medium 06/16/2018 Other reaction(s): GI SYMPTOMS Egg Yolk High 11/29/2019 Other reaction(s): GI upset Ibuprofen Other (Please comment) Medium 07/30/2010 Stomach upset Morphine Edema face/lips/tongue High 08/28/2021 Other reaction(s): LEGS SWELL documented as of this encounter (statuses as of 05/24/2023) Medications Medication Sig Dispensed Refills Start Date [...] Informant: Patient, Reported on 04/03/2023 Saline Nasal Weatherly 0.65 % Nasal Solution (Spivey) Q6H 0 06/06/2022 Active Clobetasol Propionate 0.05 [...] the morning. 60 Capsule 5 05/23/2023 Active Hospital, Clinic, or Other Facility Administered Medication Ordered Dose Route Frequency Start Date End Date Status atropine sulfate inj 0.4 mgIndications:Chest pain, unspecified type 0.4 mg IV PUSH PRN 01/29/2021 Active bupivacaine (Sensorcaine) 0.5 % inj 2.5 mgIndications:Sinus tarsitis of left foot,Pain in both feet 2.5 mg IJ ONCE 05/24/2023 05/24/2023 Ended bupivacaine (Sensorcaine) 0.5 % inj 2.5 mgIndications:Plantar fasciitis, right,Pain in both feet 2.5 mg IJ ONCE 05/24/2023 05/24/2023 Ended dexamethasone sodium phosphate 20 MG/5ML inj 2 mgIndications:Sinus tarsitis of left foot,Pain in both feet 2 mg IJ ONCE 05/24/2023 05/24/2023 Ended dexamethasone sodium phosphate 20 MG/5ML inj 2 mgIndications:Plantar fasciitis, right,Pain in both feet 2 mg IJ ONCE 05/24/2023 05/24/2023 Ended methylPREDNISolone acetate (Depo-Medrol) 20 MG/ML inj 10 mgIndications:Sinus tarsitis of left foot,Pain in both feet 10 mg INTRABURSAL ONCE 05/24/2023 05/24/2023 Ended methylPREDNISolone acetate (Depo-Medrol) 20 MG/ML inj 10 mgIndications:Plantar fasciitis, right,Pain in both feet 10 mg INTRABURSAL ONCE 05/24/2023 05/24/2023 Ended documented as of this encounter (statuses as of 05/24/2023) Active Problems Problem Noted Date Diagnosed Date Renal stone 03/21/2023 Food insecurity 01/02/2023 Overview: Per [facility] Protocol Presence of Watchman left atrial appendage closu re device 12/19/2022 PAF (paroxysmal atrial fibrillation) 08/17/2022 Overview: Added automatically from request for surgery [id number] Nasal septal perforation 06/13/2022 Overview: Per ENT [...] as of this encounter (statuses as of 05/24/2023) Resolved Problems Problem Noted Date Diagnosed Date [...] 140/90 12/12/201111/09 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 Tinea 06/27/2011 07/30/2018 Mixed urge and stress incontinence 12/15/2008 10/08/2019 ADVANCE DIRECTIVE INFORMATION 06/17/2004 10/08/2019 documented as of this encounter (statuses as of 05/24/2023) Immunizations Name Administration Dates Next Due COVID-19 mRNA, LNP-s, No Pre serve, 2-Dose Series ([employer]) 10/05/2020,09/14/2020 Covid-19, Mrna, Lnp-s, Pf, B ivalent, 30 Mcg, IM, 12 yrs and above ([employer]) 05/26/2022 Pneumococcal Conjugate Vacc, 13 Valent (Prevnar) 05/30/2016 Pneumococcal Conjugate Vacci ne, 20-valent ([id number]) 04/03/2023 Seasonal Influenza Virus Vac cine, Unspecified [...] as of this encounter Progress Notes * Eveline Layne, DPM - 05/24/2023 1:16 PM EDT Podiatry Established Note [facility] Name: Caroline Paulino : 1955 Date: 05/24/2023 REASON FOR VISIT: requesting injection left foot and right heel pain, painful calluses SUBJECTIVE: This patient is a 68 year old female who presents today for follow up of left foot painand right heel pain. She reports improvement with a sinus tarsi injection and right heel injection in February. She would like another injection in each site today. She also notes painful calluses to the left plantar foot and right distal 2nd toe. Medical necessity reason: CKD3 Last primary care appointment: 12/19/2022 Nikunj Plascencia MD Past Medical History: Diagnosis Date --- DIABETES [...] knee replacement 06/06/2018 Tibial plateau fracture 01/22/2015 ALLERGIES: Review of patient's allergies indicates: Allergen Reactions Egg Yolk Other reaction(s): GI upset Morphine Edema face/lips/tongue Other reaction(s): LEGS SWELL Egg Shells Nausea/vomiting Other reaction(s): GI SYMPTOMS Ibuprofen Other (Please comment) Stomach upset REVIEW OF SYSTEMS: CONSTITUTIONAL: No fever FOCUSED PODIATRIC EXAM: Vascular: Pedal pulses palpable including dorsalis pedis and posterior tibial artery at 2/4 bilaterally. Capillary refill time is within normal limits to all toes. Chronic appearing lower extremity edema. Neurologic: Sensation (light touch) intact to the bilateral foot. No hypersensitivity. No weakness. No tremor. Musculoskeletal: Pain reported with palpation of the sinus tarsi, dorsal lateral foot. Pain reported with palpation of the right 2nd toe at callus site and left plantar foot at callus site. Pain also reported with palpation of the right plantar medial heel. No palpable mass. Pes planus noted. Dermatological: Hyperkeratotic skin to the distal aspect of the right 2nd toe and left plantar foot sub met head region 4. Skin is thin, dry, shiny. Skin is discolored (dark) with varicosities noted. Toenails are thickened. Class Findings for Routine Foot Care Class A Findings: None Class B Findings: Advanced trophic changes (at least three of the following): hair growth (decreaseor absence), nail changes (thickening) and pigmentary changes (discoloration) Class C Findings: Edema and Paresthesia (abnormal spontaneous sensations in feet) Modifier: Q9 - 1 Class B Finding and 2 Class C Findings DIAGNOSTIC STUDIES: None ASSESSMENT: 1. Sinus tarsitis of left foot 2. Plantar fasciitis, right 3. Stage 3a chronic kidney disease 4. Pre-ulcerative calluses x 1 left foot x 1 right 2nd toe 5. Pain in both feet PLAN: Procedure: After prepping the area with alcohol and allowing to dry, the hyperkeratotic lesion to the right 2nd toe and left plantar foot (2) were pared without incident. This was performed with a #15 blade. Anelectrical umbrella bur was used to reduce any remaining edges. Patient tolerated well and noted improvement following procedure. I recommended a steroid injection of the left sinus tarsi today and right plantar fascia. I reviewed all risks, benefits, alternatives, and complications to this procedure with the patient. Risks include but are not limited to: pain, bleeding, bruising, infection, atrophy or thinning of the soft tissue, an increase in blood glucose, allergic reaction, steroid flare, recurrence of condition, and possibility of no improvement in condition. Non OR time Out: Time out was initiated under direction and supervision of provider Eveline Layne DPM. Correct patient identity - Yes Correct side and site - Yes Procedure matches verbalized consent -Yes Correct patient position - Yes Availability of correct implants and any special equipment or special requirements - Yes Time out occurred prior to procedure start - Yes Prophylactic antibiotic timing confirmed - N/A Witness present & agrees with the time out process. The left dorsal lateral foot was prepped with alcohol and then chloroprep. Injection was performed using a 25 gauge needle. Injection consisted of: 0.5mL 20mg/ml Depomedrol 0.5mL of 4mg/ml dexamethasone sodium phosphate 0.5mL of 0.5% sensorcaine plain Injection was administered into the left sinus tarsi. The right plantar medial heel was prepped with alcohol and then chloroprep. Injection was performed using a 25 gauge needle. Injection consisted of: 0.5mL 20mg/ml Depomedrol 0.5mL of 4mg/ml dexamethasone sodium phosphate 0.5mL of 0.5% sensorcaine plain Injection was administered into the medial band of the right plantar fascia near insertion site to heel. The patient tolerated the injections well. A dry dressing was applied over injection site. The patient was instructed to rest and limit very strenuous activity for 24 hours. Follow up: 3 months documented in this encounter Nursing Notes * Swetha Blackwell LPN - 05/24/2023 1:12 PM EDT Pt presents for 3 month follow up bilateral feet, nail care and injections; received bilateral injections 02/22/2023 with relief, are wearing off. documented in this encounter Plan of Treatment Upcoming Encounters Date Type Department Care Team (Late st Contact Info) Description 05/25/2023 10:00 AM EDT Procedure Only Urology, [place] [address] [place] [address] Luis Manuel Sandy MD [address] [place] [address] 06/07/2023 2:30 PM EDT Office Visit Dermatology [facility] [address] [place] [address] Cyril Borges MD [address] [place] [address] 06/14/2023 1:00 PM EDT Office Visit Cosmetic Surgery & Aesthetics [facility] [address] [place] [address] Conor Venegas PA-C [address] [place] [address] 06/19/2023 1:30 PM EDT Nurse Only Rheumatology [place] [id number] [place] [address] Pf, Nurse Rheum [facility] [place] [address] 06/22/2023 12:30 PM EDT Telemedicine Orthopaedics [facility] [address] [place] [address] PA-C [address] [place] [address] [place] [address] 06/27/2023 1:20 PM EDT Office Visit Family Practice [facility] [address] [facility] [place] [address] Nikunj Plascencia MD [address] [place] [address] 07/03/2023 2:00 PM EDT Office Visit Nephrology, [facility] [address] [facility] [place] [address] Geovanni Linder MD [address] [facility] [place] [facility] [place] [address] 07/13/2023 2:30 PM EDT Office Visit Pharmacy, [facility] [address] [place] [address] [facility] [address] [place] [address] 08/23/2023 2:00 PM EDT Office Visit Podiatry [facility] [address] [place] [address] Eveline Layne, JAMAL [address] [facility] [place] [address] 09/27/2023 8:30 AM EDT Appointment Radiology, [address] [id number] 09/27/2023 9:30 AM EDT Office Visit Urology, [place] [address] [place] [address] Luis Manuel Sandy MD [address] [place], [place] [address] 12/04/2023 1:00 PM EDT Cardiac Studies Cardiac Studies, [facility] [address] [facility] [place] [address] 12/13/2023 9:30 AM EDT Office Visit Cardiology, [facility] [address] [facility] [place] [address] Austin Penaloza MD [address] [place] [address] 12/20/2023 2:30 PM EDT [facility]iology, [address] [place] [address] 12/20/2023 3:20 PM EDT Office Visit Rheumatology [place] [address] [employer] [place] [address] John Yoder MD [facility] [place] [address] Scheduled Procedures Name Priority Associated Diagnoses Date/Ti [...] D LEVEL ONCE IN A LIFETIME-USE SMARTSET# 67923 Completed 06/10/2022, 05/28/2021, 06/20/2020, Additional history exists [...] this encounter Medical Devices Implanted Type Area Paramedic Supervisor Device Identifier Shelf Expiration Date Model / Serial / Lot Kyphon Hv-R Bone Cement Implanted:Qty: 1 on 08/17/2016 by Michael Smith MD at OR [facility] N/A: Spine Thoracic 03/19/2019 C01A / C01A / [id number] Cement Bone Lv G 1119-140-01 - [id number] Implanted:Qty: 1 on 06/04/2018 by Duc Kimble MD at OR [facility] Right: Knee [employer] 11/19/2020 00-1119-1 40-01 / / [id number] Cement Bone Lv G 1119-140-01 - [id number] Implanted:Qty: 1 on 06/04/2018 by Duc Kimble MD at OR [facility] Right: Knee [employer] 06/19/2020-1119-1 40-01 / / [id number] Persona The Personlized Knee System Vivacit-E Highly Crosslinked Polyethylene All-Poly Patella Cemented Implanted:Qty: 1 on 06/04/2018 by Duc Kimble MD at OR [facility] Right: Knee [employer] 06/19/2022 42-5402-0 00-35 / / [id number] Tibia Stem 5 Deg Rt Size F - [id number] Implanted:Qty: 1 on 06/04/2018 by Duc Kimble MD at OR [facility] Right: Knee [employer] 10/21/2027 42-5320-0 75-02 / / [id number] Persona The Personalized Knee System Femur Cemented Cr Standard Implanted:Qty: 1 on 06/04/2018 by Duc Kimble MD at OR [facility] Right: Knee [employer] 11/20/2027 42-5026-0 62-02 / / [id number] Persona The Personalized Knee System Vivacit-E Highly Crosslinked Polyethylene Articular Surface Medial Congruent Implanted:Qty: 1 on 06/04/2018 by Duc Kimble MD at OR [facility] Right: Knee [employer] 11/19/2022 42-5221-0 07-12 / / [id number] Device Watchman Flx 24mm - [id number] Implanted:Qty: 1 on 10/06/2022 by Austin Penaloza MD at [facility]S [facility] [employer] : INTRV CARD [id number] 03/07/2025 [id number] 40 / / [id number] Device Watchman Flx 27mm - [id number] Implanted:Qty: 1 on 10/06/2022 by Austin Penaloza MD at [facility] [employer] : INTRV CARD [id number] 08/07/2025 [id number] 70 / / [id number] documented as of this encounter Visit Diagnoses Diagnosis Sinus tarsitis of left foot- Primary Plantar fasciitis, right Plantar fascial fibromatosis Stage 3a chronic kidney disease (HCC) Pre-ulcerative calluses Corns and callosities Pain in both feet Pain in limb documented in this encounter Administered Medications Inactive Administered Medications - up to 3 most recent administrations Medication Order MAR Action Action Date Dose Rate Site bupivacaine (Sensorcaine) 0.5 % inj 2.5 mg 2.5 mg, Injection, ONCE, On Mon05/24/23 at 1530, For 1 dose Given 05/24/2023 3:30 PM EDT 2.5 mg Foot Right bupivacaine (Sensorcaine) 0.5 % inj 2.5 mg 2.5 mg, Injection, ONCE, On Mon05/24/23 at 1530, For 1 dose Given 05/24/2023 3:29 PM EDT 2.5 mg Foot Left dexamethasone sodium phosphate 20 MG/5ML inj 2 mg 2 mg, Injection, ONCE, On Mon05/24/23 at 1530, For 1 dose, Protect from Light Given 05/24/2023 3:29 PM EDT 2 mg Foot Right dexamethasone sodium phosphate 20 MG/5ML inj 2 mg 2 mg, Injection, ONCE, On Mon05/24/23 at 1530, For 1 dose, Protect from Light Given 05/24/2023 3:28 PM EDT 2 mg Foot Left methylPREDNISolone acetate (Depo-Medrol) 20 MG/ML inj 10 mg 10 mg, Intrabursal, ONCE, On Mon05/24/23 at 1530, For 1 dose Given 05/24/2023 3:29 PM EDT 10 mg Foot Right methylPREDNISolone acetate (Depo-Medrol) 20 MG/ML inj 10 mg 10 mg, Intrabursal, ONCE, On Mon05/24/23 at 1530, For 1 dose Given 05/24/2023 3:29 PM EDT 10 mg Foot Left documented in this encounter Advance Directives Latest [...] the patient have Health Care Power of Concrete [place]? No Care Teams Community Planner Relationship Specialty Start Date End Date Nikunj Plascencia MD [address] [place] [address] PCP - General Family Medicine 10/31/19 documented as of this encounter
--- OUTSIDE RECORDS SUMMARY | 2023-07-29 04:07 | External Medical Summary | Summary of Care ---
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 Name Role Phone Nikunj Plascencia MD Primary Care Provider [phone] Reason for Referral * Precert (Within 10 days (routine)) - Authorized Specialty Diagnoses / Procedures Referred By Contac t Referred To Contact Cardiac Studies Diagnoses Severe aortic stenosis HTN, goal below 130/80 Paroxysmal atrial fibrillation (HCC) Coronary artery disease involving [place] coronary artery of [place] heart without angina pectoris Dyslipidemia, goal LDL below 70 Procedures ECHO, COMPLETE (2D), TRANS-THORACIC Lila Burger CRNP [address] [place] [address] Referral ID Status Reason Start Date Expiration Date V isits Requested Visits Authorized [id number] Authorized Precert 11/19/2023 1 1 Reason for Visit * Reason Comments Follow Up Encounter Details Date Type Department Care Team (Late st Contact Info) Description 05/19/2023 1:30 PM EDT Office Visit Cardiology, [facility] [address] [facility] [place] [address] Lila Burger CRNP [address] [place] [address] Severe aortic stenosis*; HTN, goal below 130/80; Paroxysmal atrial fibrillation (HCC); Coronary artery disease involving [place] coronary artery of [place] heart without angina pectoris; Dyslipidemia, goal LDL below 70 Allergies Active Allergy Reactions Criticality Noted Date Comments Egg Shells Nausea/vomiting Medium 06/16/2018 Other reaction(s): GI SYMPTOMS Egg Yolk High 11/29/2019 Other reaction(s): GI upset Ibuprofen Other (Please comment) Medium 07/30/2010 Stomach upset Morphine Edema face/lips/tongue High 08/28/2021 Other reaction(s): LEGS SWELL documented as of this encounter (statuses as of 05/19/2023) Medications Medication Sig Dispensed Refills Start Date [...] 15 minutes. 25 Tablet 11 2 Active DULoxetine HCl 60 MG Oral Capsule Delayed Release Particles (Cymbalta) Take 1 Capsule by mouth in the morning. 0 2 Active Calcipotriene 0.005 % External Cream [...] mg OralHS, Informant: Patient, Reported on 04/03/2023 DULoxetine HCl 30 MG Oral Capsule Delayed Release Particles (Cymbalta) 0 3 Active Saline Nasal [place] 0.65 % Nasal Solution ([place] Johns) Q6H 0 3 Active Clobetasol Propionate 0.05 % External Ointment (Temovate) Apply thin film to affected area at body twice daily as needed for up to 2 weeks at a time. Not for use at face, armpits, groin. 60 g 2 3 Active SUMAtriptan Succinate 25 MG Oral Tablet (Imitrex) Take 2 tablets at onset of migraine and one tablet every 2 hours as needed, not more than 5 tablets in 24 hours 16 Tablet 10 3 Active Aspirin 81 MG Oral Tablet [...] AND EVENING 90 Tablet 3 3 Active Tacrolimus 0.1 % External Ointment Apply thin film to affected areas at face twice daily as needed. 60 g 2 3 Active Dupixent 300 MG/2ML Subcutaneous Solution [...] After meals.. 9 Tablet 0 4 Active oxyCODONE-Acetamino phen 5-325 MG Oral Tablet (Percocet) Take 1 Tablet by mouth every 4 hours as needed for Pain, Moderate. 5 Tablet 0 4 05/19/19 24 Discontinued Hospital, Clinic, or Other Facility Administered Medication Ordered Dose Route Frequency Start Date End Date Status atropine sulfate inj 0.4 mgIndications:Chest pain, unspecified type 0.4 mg IV PUSH PRN 01/29/2021 Active documented as of this encounter (statuses as of 05/19/2023) Active Problems Problem Noted Date Diagnosed Date Renal stone 03/21/2023 Food insecurity 01/02/2023 Overview: Per [facility] Protocol Presence of Watchman left atrial appendage closu re device 12/19/2022 PAF (paroxysmal atrial fibrillation) 08/17/2022 Overview: Added automatically from request for surgery [id number] Nasal septal perforation 06/13/2022 Overview: Per ENT [...] as of this encounter (statuses as of 05/19/2023) Resolved Problems Problem Noted Date Diagnosed Date [...] 140/90 12/12/201111/09 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 07/30/2018 Overview: [place] palsy Tinea 06/27/2011 07/30/2018 Mixed urge and stress incontinence 12/15/2008 10/08/2019 ADVANCE DIRECTIVE INFORMATION 06/17/2004 10/08/2019 documented as of this encounter (statuses as of 05/19/2023) Immunizations Name Administration Dates Next Due COVID-19 mRNA, LNP-s, No Pre serve, 2-Dose Series (Lailaihui) 10/05/2020,09/14/2020 Covid-19, Mrna, Lnp-s, Pf, B ivalent, 30 Mcg, IM, 12 yrs and above (Lailaihui) 05/26/2022 Pneumococcal Conjugate Vacc, 13 Valent (Prevnar) 05/30/2016 Pneumococcal Conjugate Vacci ne, 20-valent ([id number]) 04/03/2023 Seasonal Influenza Virus Vac cine, Unspecified [...] Sign Reading Time Taken Comments Blood Pressure 116/74 05/19/2023 1:20 PM EDT Pulse 72 05/19/2023 1:20 PM EDT Temperature - - Respiratory Rate 14 05/19/2023 1:20 PM EDT Oxygen Saturation - - Inhaled Oxygen Concentration - - Weight 129.3 kg (285 lb) 05/19/2023 1:20 PM EDT Height - - Body Mass Index 47.43 05/01/2023 11:08 AM EDT documented in this encounter Functional Status [...] this encounter Patient Instructions * Patient Instructions* Lila Burger CRNP - 05/19/2023 1:36 PM EDT Symptoms that may indicate that you need to be seen sooner for the valve include shortness of breath, chest pain, dizziness, passing out, leg swelling, abdominal swelling, or fluid retention. If this happens please reach out. documented in this encounter Progress Notes * Lila Burger CRNP - 05/19/2023 1:30 PM EDT Subjective Caroline Paulino is a 68 year old female. Chief Complaint Patient presents with Follow Up Cardiac Problems: Nonobstructive CAD Aortic Stenosis, now severe on echo 04/2023 HLD HTN Family history of premature CAD, father 30s CKD III Hx Tobacco Use Paroxysmal atrial fibrillation, [id number] score of 3 (female, HTN, CAD), On Eliquis SVT on 2020 HPI: 68 year old female presents for routine cardiology follow up. Last seen in the clinic 1 year ago. Feeling well since their last visit with no acute concerns today. She did sustain a fall recently it is not exactly sure what the underlying cause was. Does not remember tripping on anything but also not lightheaded or dizzy when it occurred. Denies chest pain, SOB, palpitations, dizziness, syncope, edema, orthopnea and PND. No change in activity tolerance. Reports compliance with medications without any untoward side effects, or difficulty with affordability. PMH: Patient Active Problem List Diagnosis Code Irritable bowel syndrome with both constipation and diarrhea K58.2 HTN, goal below 130/80 I10 Stage 3b chronic kidney disease (CKD) ([facility]) N18.32 Morbid obesity ([facility]) E66.01 Spinal stenosis of lumbar region without neurogenic claudication M48.061 Gastroesophageal reflux disease without esophagitis K21.9 Senile osteoporosis M81.0 Bicuspid aortic valve Q23.1 Moderate aortic stenosis I35.0 Dyslipidemia E78.5 Chronic insomnia F51.04 Paroxysmal atrial flutter ([facility]) I48.92 Depression with anxiety F41.8 Controlled substance agreement terminated Z91.148 Migraine with aura and without status migrainosus, not intractable G43.109 Nasal septal perforation J34.89 PAF (paroxysmal atrial fibrillation) ([facility]) I48.0 Presence of Watchman left atrial appendage closure device Z95.818 Food insecurity Z59.41 Renal stone N20.0 Current Outpatient Medications Medication [...] Chest. Up to 3 in 15 minutes. (Patient not taking: Reported on 04/03/2023) 25 Tablet 11 DULoxetine HCl 60 MG Oral Capsule Delayed Release Particles (Cymbalta) Take 1 Capsule by mouth in the morning. Calcipotriene 0.005 % External Cream (Dovonex) Apply [...] by mouth at bedtime.) 90 Tablet 3 DULoxetine HCl 30 MG Oral Capsule Delayed Release Particles (Cymbalta) Saline Nasal [place] 0.65 % Nasal Solution ([place]. Johns) Q6H Clobetasol Propionate 0.05 % External Ointment (Temovate) Apply thin film to affected area at body twice daily as needed for up to 2 weeks at a time. Not for use at face, armpits, groin. 60 g 2 SUMAtriptan Succinate 25 MG Oral Tablet (Imitrex) Take 2 tablets at onset of migraine and one tablet every 2 hours as needed, not more than 5 tablets in 24 hours 16 Tablet 10 Aspirin 81 MG Oral Tablet Chewable Take [...] EVERY MORNING AND EVENING 90 Tablet 3 Tacrolimus 0.1 % External Ointment Apply thin film to affected areas at face twice daily as needed.60 g 2 Dupixent 300 MG/2ML Subcutaneous Solution Pen-injector (Dupilumab) [...] mouth in the morning. 90 Capsule 3 oxyCODONE-Acetaminophen 5-325 MG Oral Tablet (Percocet) Take 1 Tablet by mouth every 4 hours as needed for Pain, Moderate. 5 Tablet 0 Memantine HCl 5 MG Oral Tablet (Namenda) TAKE 1 TABLET DAILY FOR 1 WEEK AND THEN 1 TABLET TWICE DAILY 180 Tablet 3 Phenazopyridine HCl 200 MG Oral Tablet (Pyridium) Take 1 Tablet by mouth in the morning and 1 Tablet at noon and 1 Tablet before bedtime. After meals.. 9 Tablet 0 Current Facility-Administered Medications Medication Dose Route Frequency Provider Last Rate Last Admin atropine sulfate inj 0.4 mg 0.4 mg IV Push PRN Trip Nolasco DO Past Medical History: Diagnosis Date --- DIABETES --- prediabetes Acute on chronic diastolic CHF (congestive heart failure) ([facility]) 01/26/2018 Allergic rhinitis Collazo's palsy left eye palsy Benign neoplasm of colon 11/20/2010 hyperplastic polyps- repeat colonoscopy in 10 years Bicuspid aortic valve 10/09/2019 Bullous pemphigoid 08/17/2016 txt with cellcept Chronic insomnia 12/22/2020 CKD (chronic kidney disease) stage 3, GFR 30-59 ml/min ([facility]) Compression fracture of body of thoracic vertebra ([facility]) 08/17/2016 Controlled substance agreement terminated 10/20/2021 Current tear of medial cartilage or meniscus of knee left knee Depression with anxiety 10/20/2021 Depressive disorder, not elsewhere classified Disorder of adrenal gland ([facility]) 01/26/2018 Dyslipidemia 12/20/2019 Fall 06/30/2022 Female [...] remission (HCC) 01/26/2018 S/P kyphoplasty 08/17/2016 Sacroiliitis ([facility]) 01/26/2018 Senile osteoporosis 08/29/2017 Spinal stenosis of lumbar region without neurogenic claudication 01/04/2017 Status post total right knee replacement 06/06/2018 Tibial plateau fracture 01/22/2015 Past Surgical History: Procedure Laterality Date ARTHROPLASTY KNEE TOTAL Right 06/04/2018 ARTHROPLASTY KNEE TOTAL performed by Duc Kimble Jr., MD at OR [facility] ASP/INJECT GANGLION CYST bilaterally, right x2 COLONOSCOPY THRU STOMA, W/BIOPSY 11/20/2010 hyperplastic polyps- repeat colonoscopy in 10 years COLONOSCOPY, DIAGNOSTIC (RECTUM) 10/16/2017 poor prep, procedure aborted/[facility] COLONOSCOPY, DIAGNOSTIC (RECTUM) 09/19/2018 diverticulosis/COLONOSCOPY FLEXIBLE PROXIMAL DIAGNOSTIC performed by Kristen Nogueira MD at ENDOSCOPY [facility] COLONOSCOPY, DIAGNOSTIC (RECTUM) 03/24/2021 adenomatous polyp, diverticulosis, repeat 5 yrs / [facility] CORONARY ANGIOGRAPHY W/LEFT HEART CATH Right 11/07/2016 CORONARY ANGIOGRAPHY W/LEFT HEART CATH performed by Fernando Germain DO at CARDIAC LABS [facility] CYSTO/URETERO W/LITHOTRIPSY Right 04/03/2023 CYSTOURETHROSCOPY URETEROSCOPY WITH LITHOTRIPSY AND STENT INSERTION performed by Luis Manuel Sandy MD at OR [facility] CYSTO/URETERO W/LITHOTRIPSY Right 05/01/2023 CYSTOURETHROSCOPY URETEROSCOPY WITH LITHOTRIPSY AND STENT INSERTION performed by Luis Manuel Sandy MD at OR [facility] EGD, FLEXIBLE, DIAGNOSTIC 10/13/2017 normal/[facility] EGD, FLEXIBLE, DIAGNOSTIC 03/24/2021 Barretts, gastritis / [facility] HYSTEROSCOPY;ENDOMETRIAL ABLAT 1998 hysteroscopy, rollerball [...] performed by Michael Smith MD at OR [facility] MAMMOGRAM SCREENING-BILATERAL 2004 [facility] PERC CLOSURE TRANSCATH LEFT ATRIAL APPENDAGE W/ENDOCARDIAL IMPLANT Right 10/06/2022 PERCUTANEOUS CLOSURE LEFT ATRIAL APPENDAGE IMPLANT performed by Austin Penaloza MD at CARDIAC [facility] REMOVAL OF APPENDIX 11/2018 SACROILIAC JOINT INJECT W/GUIDANCE 03/19/2018 INJECTION SACROILIAC JOINT performed by Yannick Daniel, DO at OR [facility] SACROILIAC JOINT INJECT W/GUIDANCE 04/30/2018 INJECTION SACROILIAC JOINT performed by Yannick Daniel, DO at OR [facility] SACROILIAC JOINT INJECT W/GUIDANCE 07/30/2018 INJECTION SACROILIAC JOINT performed by Yannick Daniel, DO at OR [facility] SACROILIAC JOINT INJECT W/GUIDANCE Right 07/29/2019 INJECTION SACROILIAC JOINT performed by Yannick Daniel, DO at OR [facility] SACROILIAC JOINT INJECT W/GUIDANCE 04/13/2020 INJECTION SACROILIAC JOINT performed by Yannick Daniel, at OR [facility] OR KNEE SURGERY NEC 2007 Knee/Leg Other Procedures Unlisted Review of patient's allergies indicates: Allergen Reactions Egg Yolk Other reaction(s): GI upset Morphine Edema face/lips/tongue Other reaction(s): LEGS SWELL Egg Shells Nausea/vomiting Other reaction(s): GI SYMPTOMS Ibuprofen Other (Please comment) Stomach upset Family History Problem Relation Age of Onset Stroke Mother dementia. complications COVID as well. Arthritis Mother Cancer Mother uterine Heart Disorder Mother bypass pig valve aorta Heart Disorder Father , age 62 Diabetes Father Stroke Father Hypertension Father Colon cancer Father Thyroid Disorder Sister No Past Hx Sister Other (Other) Sister hypersensitive to touch Heart Disorder Brother congenital Family Status Relation Status Mo Fa Sis Alive Sis Alive Sis Alive Sis (Not Specified) Sis (Not Specified) Sis (Not Specified) Bro Alive Bro (Not Specified) Social History Socioeconomic History Marital status: Single Spouse name: Not on file Number of children: 0 Years of education: Not on file Highest education level: Not on file Occupational History Occupation: [employer] Employer: [employer] Comment: [employer] Tobacco Use Smoking status: Former Current packs/day: 0.00 Average packs/day: 0.5 packs/day for 30.0 years (15.0 ttl pk-yrs) Types: Cigarettes Start date: 07/30/1978 Quit date: 07/30/2008 Years since quittin.8 Smokeless tobacco: Never Tobacco comments: mar 2007 [...] on file Housing Stability: Not on file Review of Systems Constitutional: Negative for activity change, fatigue and unexpected weight change. Eyes: Negative for visual disturbance. Respiratory: Negative for shortness of breath and wheezing. Cardiovascular: Negative for chest pain, palpitations and leg swelling. Gastrointestinal: Negative for blood in stool, constipation, diarrhea, nausea and vomiting. Genitourinary: Negative for hematuria. Musculoskeletal: Positive for arthralgias and gait problem. Skin: Negative for wound. Neurological: Negative for dizziness and syncope. Objective BP 116/74 | Pulse 72 | Resp 14 | Wt 129.3 kg (285 lb) | BMI 47.43 kg/m | BSA 2.44 m Physical Exam Vitals and nursing note reviewed. Constitutional: General: She is awake. She is not in acute distress. Appearance: Normal appearance. She is well-developed. She is not ill-appearing. HENT: Head: Normocephalic and atraumatic. Eyes: General: No scleral icterus. Extraocular Movements: Extraocular movements intact. Conjunctiva/sclera: Conjunctivae normal. Pupils: Pupils are equal, round, and reactive to light. Neck: Thyroid: No thyromegaly. Vascular: No carotid bruit or JVD. Cardiovascular: Rate and Rhythm: Normal rate and regular rhythm. Pulses: Normal pulses. Carotid pulses are 2+ on the right side and 2+ on the left side. Radial pulses are 2+ on the right side and 2+ on the left side. Posterior tibial pulses are 2+ on the right side and 2+ on the left side. Heart sounds: S1 normal and S2 normal. Murmur heard. Pulmonary: Effort: Pulmonary effort is normal. No respiratory distress. Breath sounds: Normal breath sounds. No wheezing, rhonchi or rales. Abdominal: General: Bowel sounds are normal. There is no distension. Palpations: Abdomen is soft. There is no mass. Tenderness: There is no abdominal tenderness. Musculoskeletal: General: No swelling. Cervical back: Neck supple. Right lower leg: No edema. Left lower leg: No edema. Skin: General: Skin is warm and dry. Capillary Refill: Capillary refill takes less than 2 seconds. Findings: No rash or wound. Neurological: General: No focal deficit present. Mental Status: She is alert and oriented to person, place, and time. Psychiatric: Attention and Perception: Attention and perception normal. Behavior: Behavior is cooperative. Judgment: Judgment normal. Results Labs & Imaging Reviewed Below: ECG 10/06/22 NSR 72 bpm QTc 431 ms 04/01/22 NSR 64 bpm QTc 416 ms 01/11/21 SB 59 bpm QTc 409 ms 09/28/20 NSR, PACs 70 bpm QTc 427 ms Echocardiograms 05/16/23 The qualitative LV ejection fraction is 55-59% [...] has increased, severe aortic valve stenosis is present. This study has what is deemed to be a "significant abnormality" consistent with ACT 112. See additional documentation regarding notification of patient and ordering provider. KAVITA 12/14/22 The examination is adequate to evaluate the referral indication. The qualitative LV ejection fraction is 55-59% (normal). No LV segmental wall motion abnormalities. A left atrial appendage closure evice is identified. Adequate closure of the appedage orfice with minimal to no flow around the device is present. Moderate aortic valve stenosis is present. Mild aortic valve regurgitation is present. There is evidence of prior trans-septal puncture with predominantly left to right flow. A small right to left shunt was demonstrated with Valsalva. 02/01/22 The qualitative LV ejection fraction is 55-59% (normal). The LV wall thickness is mildly increased (concentric). The aortic valve is moderately calcified. Moderate aortic valve stenosis is present. Mild aortic valve regurgitation is present. Compared to prior study of 01/29/2021, there is no significant change. Cardiac Cath 11/07/16 The coronary arteries have diffuse moderate irregularities. Zio 01/11/21 CONCLUSIONS: Preliminary Findings Patient had a min HR of 42 bpm, max HR of 200 bpm, and avg HR of 66 bpm. Predominant underlying rhythm was Sinus Rhythm. 64 Supraventricular Tachycardia runs occurred, the run with the fastest interval lasting 7 mins 6 secs with a max rate of 200 bpm (avg 170 bpm); the run with the fastest interval was also the longest. Some episodes of Supraventricular Tachycardia may be possible Atrial Tachycardia with variable block. Isolated SVEs were rare (<1.0%), SVE Couplets were rare (<1.0%), and SVE Triplets were rare (<1.0%). Isolated VEs were rare (<1.0%, 633), VE Couplets were rare (<1.0%, 26), and VE Triplets were rare (<1.0%, 1). Labs Latest Reference Range & Units 03/31/23 09:17 04/28/23 11:06 Triglycerides <=174 mg/dL 64 71 Cholesterol <200 mg/dL 101 116 Non-HDL Cholesterol <=159 mg/dL 47 61 HDL Cholesterol >49 mg/dL 54 55 LDL Cholesterol <=129 mg/dL 34 47 Sodium 135 - 146 mmol/L 141 142 Potassium 3.5 - 5.1 mmol/L 5.3 (H) 5.0 Chloride 98 - 107 mmol/L 112 (H) 108 (H) CO2 22 - 32 mmol/L 21 (L) 24 BUN 6 - 20 mg/dL 49 (H) 38 (H) Creatinine 0.5 - 1.0 mg/dL 1.6 (H) 1.5 (H) Estimated Glomerular Filtration Rate >=60 mL/min 36 (L) 38 (L) Anion Gap 7 - 15 mmol/L 8 10 Glucose 70 - 120 mg/dL 91 96 Calcium 8.4 - 10.2 mg/dL 8.9 9.2 Protein 6.0 - 8.3 g/dL 6.1 CBC Rpt ! Rpt ! WBC 4.00 - 10.80 K/uL 5.40 5.69 RBC 3.85 - 5.15 M/uL 3.26 3.35 HGB 12.0 - 15.3 g/dL 8.9 (L) 8.9 (L) HCT 36.0 - 45.2 % 30.1 (L) 30.2 (L) MCV 81.5 - 97.5 fL 92.3 90.1 MCH 27.0 - 34.0 pg 27.3 26.6 MCHC 32.0 - 36.0 g/dL 29.6 29.5 RDW 11.5 - 15.5 % 15.4 15.6 PLT 140 - 400 K/uL 120 (L) 171 MPV 6.6 - 11.1 fL 11.6 11.2 CBC WITH WBC DIFFERENTIAL Rpt ! Absolute Neutrophils 1.80 - 7.70 K/uL 2.42 Absolute Lymphocytes 1.00 - 4.80 K/ul 2.03 Absolute Monocytes 0.00 - 1.10 K/uL 0.80 Absolute Eosinophils 0.00 - 0.70 K/uL 0.39 Absolute Basophils 0.00 - 0.20 K/uL 0.05 Albumin 3.8 - 5.0 g/dL 3.8 AST 10 - 35 U/L 26 ALT 10 - 35 U/L 14 Alkaline Phosphatase 35 - 130 U/L 62 Bilirubin, Total <=1.2 mg/dL 0.2 Impression Nonobstructive CAD Aortic Stenosis, now severe on echo 04/2023 HLD HTN Family history of premature CAD, father 30s CKD III Hx Tobacco Use Paroxysmal atrial fibrillation, [id number] score of 3 (female, HTN, CAD),s/p watchman 09/2022 SVT on 2020 Spinal Stenosis Renal Calculi, s/p Lithotripsy and Stent 03/2023 and 04/2023 following with Urology Plan: -HR and BP well controlled -reviewed her echo with her today which indicated the gradients across the aortic valve have worsened -most recent LDL well controlled -she is euvolemic on exam -asymptomatic from a cardiac standpoint in regard to her aortic valve -she was initially scheduled to be seen by the valve Clinic in the next few weeks unfortunately shehas conflicting appointments and did not want to miss her Urology follow up in [place] given her recent procedure -rescheduled for evaluation in the valve clinic in November of this year -reviewed signs and symptoms that may indicate that this valve is starting to worsen or would warrant sooner follow up such as shortness of breath, chest pain, leg swelling, abdominal distention, fluid retention, lightheadedness, dizziness, or syncope -encouraged to reach out if she develops any of the above symptoms for sooner clinic visit -will plan to repeat echo just prior to her evaluation in the valve clinic in November -continue Toprol, lipitor, lisinopril, ASA, -Educated patient on caution with change in positions to minimize symptomatic orthostatic hypotension -Discussed importance of diet & exercise with the patient. -Discussed with patient subtle changes in how they are feeling or completing daily activities to contact us sooner; don't wait days or weeks. DISPOSITION: Follow up 1 year by General Cardiology and 6 months in Valve Clinic or if symptoms worsen/fail to improve. All questions were answered to the patients satisfaction. Patient advised to report to ED with any and all emergencies. The patient agrees to the above plan and will call with additional questions or concerns. [facility], [address] [address] This chart was completed in part utilizing [employer] Speech Voice Recognition Software. Grammatical errors, random word insertions, pronoun errors, and incomplete sentences are an occasional consequence of this system due to software limitations, ambient noise, and hardware issues. Any formal questions or concerns about the content, text, or information contained within the body of this dictation should be directly addressed to the provider for clarification. documented in this encounter Nursing Notes * Pam Vyas LPN - 05/19/2023 1:18 PM EDT Examination Room: 14 Name: Caroline Paulino Date of : 1955 Reason for Visit: Follow up Problems/Concerns: Falls, unsure what happened Interim Hosp(s): 2x for cystoscopes, Chest Pain/SOB: denies MyChart Discussed: ALREADY ACTIVE Patient was instructed to not get up on the exam table until directed and assisted by their provider; patient is to remain seated in the chair/ wheelchair/ exam table for fall prevention and safety reasons. Patient is aware staff will assist stepping down off exam table with personnel. documented in this encounter Plan of Treatment Upcoming Encounters Date Type Department Care Team (Late st Contact Info) Description 05/24/2023 2:00 PM EDT Office Visit Podiatry [facility] [address] [facility] [place] [address] Eveline Layne DPM [address] [place] [address] 05/25/2023 10:00 AM EDT [facility] [address] [place] [address] Luis Manuel Sandy MD [address] [place] [address] 06/07/2023 2:30 PM EDT Office Visit Dermatology [facility] [address] [place] [address] Cyril Borges MD [address] [place] [address] 06/14/2023 1:00 PM EDT Office Visit Cosmetic Surgery & Aesthetics [facility] [address] [place] [address] Conor Venegas PA-C [address] [place] [address] 06/19/2023 1:30 PM EDT Nurse Only Rheumatology [facility] [address] [facility] [place], [place] [address] Pf, Nurse Rheum [address] [facility] [place], [place] [address] 06/22/2023 12:30 PM EDT Telemedicine Orthopaedics [facility] 132 [facility] [place] [address] PA-C [address] [place] [address] 06/27/2023 1:20 PM EDT Office Visit Family Practice [facility] 132 [place] [address] Nikunj Plascencia MD 132 [place] [address] 07/03/2023 2:00 PM EDT Office [facility] 200 [facility] [place] [address] Geovanni Linder MD 200 [facility] [place] [address] 07/13/2023 2:30 PM EDT Office Visit Pharmacy, [facility] 132 [place] [address] [facility] 132 [place] [address] 09/27/2023 8:30 AM EDT Appointment Radiology, [place] [address] [place], [place] [address] 09/27/2023 9:30 AM EDT Office Visit Urology, [place] [address] [place] [address] Luis Manuel Sandy MD [address] [place] [address] 12/04/2023 1:00 PM EDT Cardiac Studies Cardiac Studies, [facility] 132 [place] [address] 12/13/2023 9:30 AM EDT Office Visit Cardiology, [facility] 132 [place] [address] Austin Penaloza MD [address] [place], [place] [address] 12/20/2023 2:30 PM EDT Imaging Radiology, [address] [place] [address] 12/20/2023 3:20 PM EDT Office Visit Rheumatology [address] [place] [address] John Yoder MD [address] [place] [address] [place] [address] Scheduled Orders Name Type Priority Associated Diagnoses Orde r Schedule ECHO, COMPLETE (2D), TRANS-THORACIC Echocardiology Routine Severe aortic stenosis HTN, goal below 130/80 Paroxysmal atrial fibrillation (HCC) Coronary artery disease involving [place] coronary artery of [place] heart without angina pectoris Dyslipidemia, goal LDL below 70 Expected: 11/19/2023 (Approximate), Expires: 06/18/2025 Scheduled Procedures Name Priority Associated Diagnoses Date/Ti [...] Ratio 06/14/2023 06/13/2022, 02/20 GFR 10/29/2023 04/28/2023, 02/10/2023, 12/07/2022, Additional history exists DXA Scan 12/01/2023 [...] D LEVEL ONCE IN A LIFETIME-USE SMARTSET# 32708 Completed 06/10/2022, 05/28/2021, 06/20/2020, Additional history exists [...] this encounter Medical Devices Implanted Type Area Patternmaker Sample Device Identifier Shelf Expiration Date Model / Serial / Lot Kyphon Hv-R Bone Cement Implanted:Qty: 1 on 08/17/2016 by Michael Smith MD at OR [facility] N/A: Spine Thoracic 03/19/2019 C01A / C01A / [id number] Cement Bone Lv G 1119-140-01 - [id number] Implanted:Qty: 1 on 06/04/2018 by Duc Kimble MD at OR [facility] Right: Knee [employer] 11/19/2020 00-1119-1 40-01 / / [id number] Cement Bone Lv G 1119-140-01 - [id number] Implanted:Qty: 1 on 06/04/2018 by Duc Kimble MD at OR [facility] Right: Knee [employer] 06/19/2020 00-1119-1 40-01 / / [id number] Persona The Personlized Knee System Vivacit-E Highly Crosslinked Polyethylene All-Poly Patella Cemented Implanted:Qty: 1 on 06/04/2018 by Duc Kimble MD at OR [facility] Right: Knee [employer] 06/19/2022 42-5402-0 00-35 / / [id number] Tibia Stem 5 Deg Rt Size F - [id number] Implanted:Qty: 1 on 06/04/2018 by Duc Kimble MD at OR [facility] Right: Knee [employer] 10/21/2027 42-5320-0 75-02 / / [id number] Persona The Personalized Knee System Femur Cemented Cr Standard Implanted:Qty: 1 on 06/04/2018 by Duc Kimble MD at OR [facility] Right: Knee [employer] 11/20/2027 42-5026-0 62-02 / / [id number] Persona The Personalized Knee System Vivacit-E Highly Crosslinked Polyethylene Articular Surface Medial Congruent Implanted:Qty: 1 on 06/04/2018 by Duc Kimble MD at OR [facility] Right: Knee [employer] 11/19/2022 42-5221-0 07-12 / / [id number] Device Watchman Flx 24mm - [id number] Implanted:Qty: 1 on 10/06/2022 by Austin Penaloza MD at [facility] [employer] : INTRV CARD [id number] 03/07/2025 [id number] 40 / / [id number] Device Watchman Flx 27mm - [id number] Implanted:Qty: 1 on 10/06/2022 by Austin Penaloza MD at [facility] [employer] : INTRV CARD [id number] 08/07/2025 [id number] 70 / / [id number] documented as of this encounter Visit Diagnoses Diagnosis Severe aortic stenosis- Primary Aortic valve disorders HTN, goal below 130/80 Unspecified essential hypertension Paroxysmal atrial fibrillation (HCC) Atrial fibrillation Coronary artery disease involving [place] coronary artery of [place] heart without angina pectoris Dyslipidemia, goal LDL below 70 Other and unspecified hyperlipidemia documented in this encounter Advance Directives Latest [...] the patient have Health Care Power of Merchandise Planning Manager? No Care Teams Floor Covering Installer Relationship Specialty Start Date End Date Nikunj Plascencia MD [address] [place] [address] PCP - General Family Medicine 10/31/19 documented as of this encounter
--- OUTSIDE RECORDS SUMMARY | 2023-07-29 04:07 | External Medical Summary | Summary of Care ---
Author Name Unknown Organization [facility] Address [address] [place] [address] Phone [phone] Care Team Providers Care Forest Resource Specialist Name Role Phone Nikunj Plascencia MD Primary Care Provider [phone] Encounter Details Date Type Department Care Team (Late st Contact Info) Description 05/23/2023 Orders Only Pharmacy, [facility] 132 [facility] [place] [address] [facility] 21 [facility] [place] [address] Allergies Active Allergy Reactions Criticality Noted Date Comments Egg Shells Nausea/vomiting Medium 06/16/2018 Other reaction(s): GI SYMPTOMS Egg Yolk High 11/29/2019 Other reaction(s): GI upset Ibuprofen Other (Please comment) Medium 07/30/2010 Stomach upset Morphine Edema face/lips/tongue High 08/28/2021 Other reaction(s): LEGS SWELL documented as of this encounter (statuses as of 05/23/2023) Medications Medication Sig Dispensed Refills Start Date [...] Informant: Patient, Reported on 04/03/2023 Saline Nasal [place] 0.65 % Nasal Solution (Will) Q6H 0 3 Active Clobetasol Propionate 0.05 [...] the morning. 60 Capsule 5 4 Active DULoxetine HCl 60 MG Oral Capsule Delayed Release Particles (Cymbalta) Take 1 Capsule by mouth in the morning. 0 2 05/23/19 24 Discontinued DULoxetine HCl 30 MG Oral Capsule Delayed Release Particles (Cymbalta) 0 3 05/23/19 24 Discontinued Hospital, Clinic, or Other Facility Administered Medication Ordered Dose Route Frequency Start Date End Date Status atropine sulfate inj 0.4 mgIndications:Chest pain, unspecified type 0.4 mg IV PUSH PRN 01/29/2021 Active documented as of this encounter (statuses as of 05/23/2023) Active Problems Problem Noted Date Diagnosed Date Renal stone 03/21/2023 Food insecurity 01/02/2023 Overview: Per [facility] Protocol Presence of Watchman left atrial appendage closu re device 12/19/2022 PAF (paroxysmal atrial fibrillation) 08/17/2022 Overview: Added automatically from request for surgery [id number] Nasal septal perforation 06/13/2022 Overview: Per ENT [...] as of this encounter (statuses as of 05/23/2023) Resolved Problems Problem Noted Date Diagnosed Date [...] 140/90 12/12/201111/09 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 07/30/2018 Overview: [place] palsy Tinea 06/27/2011 07/30/2018 Mixed urge and stress incontinence 12/15/2008 10/08/2019 ADVANCE DIRECTIVE INFORMATION 06/17/2004 10/08/2019 documented as of this encounter (statuses as of 05/23/2023) Immunizations Name Administration Dates Next Due COVID-19 mRNA, LNP-s, No Pre serve, 2-Dose Series ([place]) 10/05/2020,09/14/2020 Covid-19, Mrna, Lnp-s, Pf, B ivalent, 30 Mcg, IM, 12 yrs and above (Pfizer) 05/26/2022 Pneumococcal Conjugate Vacc, 13 Valent (Prevnar) 05/30/2016 Pneumococcal Conjugate Vacci ne, 20-valent (Xecisyg12) 04/03/2023 Seasonal Influenza Virus Vac cine, Unspecified [...] 05/24/2023 2:00 PM EDT Office Visit Podiatry [facility] 132 [facility] [place] [address] Eveline Layne DPM 400 [facility] [place] [id number] 05/25/2023 10:00 AM EDT Procedure Only Urology, [place] [address] [place] [address] Luis Manuel Sandy MD [address] [place] [address] 06/07/2023 2:30 PM EDT Office Visit Dermatology [facility] 16 [place] [address] Cyril Borges MD 16 [place] [address] 06/14/2023 1:00 PM EDT Office Visit Cosmetic Surgery & Aesthetics [facility] 16 [place] [address] Conor Venegas PA-C [address] [place] [address] 06/19/2023 1:30 PM EDT Nurse Only Rheumatology [facility] 25[address] [facility] [place] [address] Pf, Nurse Rheum [facility]0 [facility] [place] [address] 06/22/2023 12:30 PM EDT Telemedicine Orthopaedics [facility] 132 [place] [address] PA-C [address] [place] [address] 06/27/2023 1:20 PM EDT Office Visit Family Practice [facility] 132 [place] [address] Nikunj Plascencia MD 132 [place] [address] 07/03/2023 2:00 PM EDT Office Visit Nephrology, [facility] [address] [place] [address] Geovanni Linder MD [address] [place] [address] 07/13/2023 2:30 PM EDT Office Visit Pharmacy, [facility] [place] [address] [place] [address] 09/27/2023 8:30 AM EDT Appointment Radiology, [place] [address] [place] [address] 09/27/2023 9:30 AM EDT Office Visit Urology, [place] [address] [place] [address] Luis Manuel Sandy MD [address] [place] [address] 12/04/2023 1:00 PM EDT Cardiac Studies Cardiac Studies, [address] [place] [address] 12/13/2023 9:30 AM EDT Office Visit Cardiology, [address] [place] [address] Austin Penaloza MD [address] [place] [address] 12/20/2023 2:30 PM EDT Imaging Radiology, [address] [place] [address] 12/20/2023 3:20 PM EDT Office Visit Rheumatology [address] [place] [address] John Yoder MD [address] [place] [address] [place] [address] Scheduled Procedures Name Priority Associated Diagnoses Date/Ti [...] D LEVEL ONCE IN A LIFETIME-USE SMARTSET# [id number] Completed 06/10/2022, 05/28/2021, 06/20/2020, Additional history exists [...] this encounter Medical Devices Implanted Type Area Quality Systems Technician Device Identifier Shelf Expiration Date Model / Serial / Lot Kyphon Hv-R Bone Cement Implanted:Qty: 1 on 08/17/2016 by Michael Smith MD at OR [facility] N/A: Spine Thoracic 03/19/2019 C01A / C01A / [id number] Cement Bone Lv G 1119-140-01 - [id number] Implanted:Qty: 1 on 06/04/2018 by Duc Kimble MD at OR [facility] Right: Knee [employer] 11/19/20201119-1 40- / / [id number] Cement Bone Lv G 1119-140-01 - [id number] Implanted:Qty: 1 on 06/04/2018 by Duc Kimble MD at OR [facility] Right: Knee [employer] 06/19/20201119-1 40- / / [id number] Persona The Personlized Knee System Vivacit-E Highly Crosslinked Polyethylene All-Poly Patella Cemented Implanted:Qty: 1 on 06/04/2018 by Duc Kimble MD at OR [facility] Right: Knee [employer] 06/19/2022 42-5402-0 00-35 / / [id number] Tibia Stem 5 Deg Rt Size F - [id number] Implanted:Qty: 1 on 06/04/2018 by Duc Kimble MD at OR [facility] Right: Knee [employer] 10/21/2027 42-5320-0 75-02 / / [id number] Persona The Personalized Knee System Femur Cemented Cr Standard Implanted:Qty: 1 on 06/04/2018 by Duc Kimble MD at OR [facility] Right: Knee [employer] 11/20/2027 42-5026-0 62-02 / / [id number] Persona The Personalized Knee System Vivacit-E Highly Crosslinked Polyethylene Articular Surface Medial Congruent Implanted:Qty: 1 on 06/04/2018 by Duc Kimble MD at OR [facility] Right: Knee [employer] 11/19/2022 42-5221-0 07-12 / / [id number] Device Watchman Flx 24mm - [id number] Implanted:Qty: 1 on 10/06/2022 by Austin Penaloza MD at [facility] [employer] : INTRV CARD [id number] 03/07/2025 [id number] 40 / / [id number] Device Watchman Flx 27mm - [id number] Implanted:Qty: 1 on 10/06/2022 by Austin Penaloza MD at [facility] [employer] : INTRV CARD [id number] 08/07/2025 [id number] 70 / / [id number] documented as of this encounter Advance Directives [...] the patient have Health Care Power of Traffic Manager? No Care Teams Forest Resource Specialist Relationship Specialty Start Date End Date Nikunj Plascencia MD [address] [place] [address] PCP - General Family Medicine 10/31/19 documented as of this encounter
--- OUTSIDE RECORDS SUMMARY | 2023-07-29 04:07 | External Medical Summary | Summary of Care ---
Author Name Unknown Organization [facility] Address [address] [place] [address] Phone [phone] Care Team Providers Care Metal Engraver Name Role Phone Nikunj Plascencia MD Primary Care Provider [phone] Encounter Details Date Type Department Care Team (Late st Contact Info) Description 05/23/2023 Orders Only Pharmacy, [facility] 132 [facility] [place] [address] [facility] 21 [facility] [place] [address] Allergies Active Allergy Reactions [...] 15 minutes. 25 Tablet 11 03/01/2021 Active DULoxetine HCl 60 MG Oral Capsule Delayed Release Particles (Cymbalta) Take 1 Capsule by mouth in the morning. 0 06/23/2021 Active Calcipotriene 0.005 % External Cream (Dovonex) [...] Oral Capsule Delayed Release Particles (Cymbalta) 0 06/20/2022 Active Saline Nasal [employer] 0.65 % Nasal Solution ([place]) Q6H 0 06/06/2022 Active Clobetasol Propionate 0.05 [...] After meals.. 9 Tablet 0 05/15/2023 Active Hospital, Clinic, or Other Facility Administered [...] Overview: Added automatically from request for surgery [id number] Nasal septal perforation 06/13/2022 Overview: Per ENT [...] 140/90 12/12/201111/09 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 07/30/2018 Overview: [place] palsy Tinea 06/27/2011 07/30/2018 Mixed urge and stress incontinence 12/15/2008 10/08/2019 ADVANCE DIRECTIVE INFORMATION 06/17/2004 10/08/2019 documented as of this encounter (statuses as of 05/23/2023) Immunizations Name Administration Dates Next Due COVID-19 mRNA, LNP-s, No Pre serve, 2-Dose Series ([employer]) 10/05/2020,09/14/2020 Covid-19, Mrna, Lnp-s, Pf, B ivalent, 30 Mcg, IM, 12 yrs and above (Aliopartis) 05/26/2022 Pneumococcal Conjugate Vacc, 13 Valent (Prevnar) 05/30/2016 Pneumococcal Conjugate Vacci ne, 20-valent ([id number]) 04/03/2023 Seasonal Influenza Virus Vac cine, Unspecified [...] Notes * Maria Ines Desai RPh - 05/23/2023 8:25 AM EDT documented in this encounter Plan of Treatment Upcoming Encounters Date Type Department Care Team (Late st Contact Info) Description 05/24/2023 2:00 PM EDT Office Visit Podiatry [facility] 132 [facility] [place] [address] Eveline Layne DPM [address] [place] [address] [place] [address] 05/25/2023 10:00 AM EDT Procedure Only Urology, [place] [address] [place] [address] Luis Manuel Sandy MD [address] [place] [address] 06/07/2023 2:30 PM EDT Office Visit Dermatology [facility] 16 [place] [address] Cyril Borges MD 16 [place] [address] 06/14/2023 1:00 PM EDT Office Visit Cosmetic Surgery & Aesthetics [facility] 16 [place] [address] Conor Venegas PA-C [address] [place], [place] [address] 06/19/2023 1:30 PM EDT Nurse Only Rheumatology [place] [address] [facility] [place] [address] Pf, Nurse Rheum [facility]0 [facility] [place] [address] 06/22/2023 12:30 PM EDT Telemedicine Orthopaedics [facility] 132 [facility] [place] [address] PA-C [address] [place], [place] [address] 06/27/2023 1:20 PM EDT Office Visit Family Practice [facility] 132 [facility] [place] [address] Nikunj Plascencia MD 132 [facility] [place] [address] 07/03/2023 2:00 PM EDT Office Visit Nephrology, [facility] [address] [place] [address] Geovanni Linder MD [address] [place] [address] 07/13/2023 2:30 PM EDT Office Visit Pharmacy, [facility] 132 [place] [address] [facility] [address] [place] [address] 09/27/2023 8:30 AM EDT Appointment Radiology, [place] [address] [place] [address] 09/27/2023 9:30 AM EDT Office Visit Urology, [place] [address] [place] [address] Luis Manuel Sandy MD [address] [place] [address] 12/04/2023 1:00 PM EDT Cardiac Studies Cardiac Studies, [address] [address] 12/13/2023 9:30 AM EDT Office Visit Cardiology, [address] [address] Austin Penaloza MD [address] [place] [address] 12/20/2023 2:30 PM EDT Imaging Radiology, [address] [place] [address] 12/20/2023 3:20 PM EDT Office Visit Rheumatology [address] [place] [address] John Yoder MD [address] [place] [address] [place] [address] Scheduled Procedures Name Priority Associated Diagnoses Date/Ti [...] D LEVEL ONCE IN A LIFETIME-USE SMARTSET# 55840 Completed 06/10/2022, 05/28/2021, 06/20/2020, Additional history exists [...] this encounter Medical Devices Implanted Type Area Engineer Soils Device Identifier Shelf Expiration Date Model / Serial / Lot Kyphon Hv-R Bone Cement Implanted:Qty: 1 on 08/17/2016 by Michael Smith MD at OR [facility] N/A: Spine Thoracic 03/19/2019 C01A / C01A / [id number] Cement Bone Lv G 1119-140-01 - [id number] Implanted:Qty: 1 on 06/04/2018 by Duc Kimble MD at OR [facility] Right: Knee [employer] 11/19/20201119-1 40-01 / / [id number] Cement Bone Lv G 1119-140-01 - [id number] Implanted:Qty: 1 on 06/04/2018 by Duc Kimble MD at OR [facility] Right: Knee [employer] 06/19/20201119-1 40-01 / / [id number] Persona The Personlized Knee System Vivacit-E Highly Crosslinked Polyethylene All-Poly Patella Cemented Implanted:Qty: 1 on 06/04/2018 by Duc Kimble MD at OR [facility] Right: Knee [employer] 06/19/2022 42-5402-0 00-35 / / [id number] Tibia Stem 5 Deg Rt Size F - [id number] Implanted:Qty: 1 on 06/04/2018 by Duc Kimble MD at OR [facility] Right: Knee [employer] 10/21/2027 42-5320-0 75-02 / / [id number] Persona The Personalized Knee System Femur Cemented Cr Standard Implanted:Qty: 1 on 06/04/2018 by Duc Kimble MD at OR [facility] Right: Knee [employer] 11/20/2027 42-5026-0 62-02 / / [id number] Persona The Personalized Knee System Vivacit-E Highly Crosslinked Polyethylene Articular Surface Medial Congruent Implanted:Qty: 1 on 06/04/2018 by Duc Kimble MD at OR [facility] Right: Knee [employer] 11/19/2022 42-5221-0 07-12 / / [id number] Device Watchman Flx 24mm - [id number] Implanted:Qty: 1 on 10/06/2022 by Austin Penaloza MD at [facility] [employer] : INTRV CARD [id number] 03/07/2025 [id number] 40 / / [id number] Device Watchman Flx 27mm - [id number] Implanted:Qty: 1 on 10/06/2022 by Austin Penaloza MD at [facility] [employer] : INTRV CARD [id number] 08/07/2025 [id number] 70 / / [id number] documented as of this encounter Advance Directives [...] the patient have Health Care Power of Sales Floor Team Member? No Care Teams Metal Engraver Relationship Specialty Start Date End Date Nikunj Plascencia MD 132 [place] [address] PCP - General Family Medicine 10/31/19 documented as of this encounter
--- OUTSIDE RECORDS SUMMARY | 2023-07-29 04:07 | External Medical Summary | Summary of Care ---
Author Name Unknown Organization [facility] Address [address] [place] [address] Phone [phone] Care Team Providers Care Necktie Maker Name Role Phone Nikunj Plascencia MD Primary Care Provider [phone] [phone] Reason for Visit * Reason Comments Outpatient Testing Encounter Details Date Type Department Care Team (Late st Contact Info) Description 05/19/2023 2:00 PM EDT Laboratory Laboratory, [facility] [address] [place] [address] [facility] [address] [place] [address] Dysuria Allergies Active Allergy Reactions Criticality Noted Date [...] Particles (Cymbalta) 0 06/20/2022 Active Saline Nasal [place] 0.65 % Nasal Solution (Rock) Q6H 0 06/06/2022 Active Clobetasol Propionate 0.05 [...] stone 03/21/2023 Food insecurity 01/02/2023 Overview: Per [facility] Protocol Presence of Watchman left atrial appendage closu re device 12/19/2022 PAF (paroxysmal atrial fibrillation) 08/17/2022 Overview: Added automatically from request for surgery [id number] Nasal septal perforation 06/13/2022 Overview: Per ENT [...] 140/90 12/12/201111/09 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 07/30/2018 Overview: [place] palsy Tinea 06/27/2011 07/30/2018 Mixed urge and stress incontinence 12/15/2008 10/08/2019 ADVANCE DIRECTIVE INFORMATION 06/17/2004 10/08/2019 documented as of this encounter (statuses as of 05/19/2023) Immunizations Name Administration Dates Next Due COVID-19 mRNA, LNP-s, No Pre serve, 2-Dose Series ([employer]) 10/05/2020,09/14/2020 Covid-19, Mrna, Lnp-s, Pf, B ivalent, 30 Mcg, IM, 12 yrs and above ([employer]) 05/26/2022 Pneumococcal Conjugate Vacc, 13 Valent (Prevnar) 05/30/2016 Pneumococcal Conjugate Vacci ne, 20-valent ([id number]) 04/03/2023 Seasonal Influenza Virus Vac cine, Unspecified [...] 05/24/2023 2:00 PM EDT Office Visit Podiatry [facility] [address] [place] [address] Eveline Layne, JAMAL [facility] [place] [id number] 05/25/2023 10:00 AM EDT Procedure Only Urology, [place] [address] [place] [address] Luis Manuel Sandy MD [address] [place] [address] 06/07/2023 2:30 PM EDT Office Visit Dermatology [place] 16 [facility] [place] [id number] Cyril Borges MD 16 [place] [address] 06/14/2023 1:00 PM EDT Office Visit Cosmetic Surgery & Aesthetics [facility][1] 16 [place] [address] Conor Venegas PA-C [address] [place] [address] 06/19/2023 1:30 PM EDT Nurse Only Rheumatology [facility] [address] [facility] [place] [address] Pf, Nurse Rheum [address] [facility] [place] [address] 06/22/2023 12:30 PM EDT Telemedicine Orthopaedics [facility] 132 [place] [address] PA-C [address] [place] [address] [place] [address] 06/27/2023 1:20 PM EDT Office Visit Family Practice [facility] 132 [place] [address] Nikunj Plascencia MD 132 [facility] [place] [address] 07/03/2023 2:00 PM EDT Office Visit Nephrology, [facility] [address] [place] [address] Geovanni Linder MD [address] [place] [address] 07/13/2023 2:30 PM EDT Office Visit Pharmacy, [facility] 132 [facility] [place] [address] [facility] 132 [facility] [place] [address] 09/27/2023 8:30 AM EDT Appointment Radiology, [place] [address] [place] [address] 09/27/2023 9:30 AM EDT Office Visit Urology, [place] [address] [place] [address] Luis Manuel Sandy MD [address] [place] [address] 12/04/2023 1:00 PM EDT Cardiac Studies Cardiac Studies, [facility] 132 [place] [address] 12/13/2023 9:30 AM EDT Office Visit Cardiology, [address] [place] [address] Austin Penaloza MD [facility] [place] [address] 12/20/2023 2:30 PM EDT Imaging Radiology, [address] [place] [address] 12/20/2023 3:20 PM EDT Office Visit Rheumatology [address] [place] [address] John Yoder MD [address] [place] [address] [place] [address] Pending Results Name Type Priority Associated Diagnoses Date /Time URINALYSIS, REFLEX TO MICROSCOPIC Lab Routine Dysuria 05/19/2023 1:50 PM EDT CULTURE, URINE, QUANTITATIVE Lab Routine Dysuria 05/19/2023 1:50 PM EDT Scheduled Procedures Name Priority Associated [...] D LEVEL ONCE IN A LIFETIME-USE SMARTSET# 88381 Completed 06/10/2022, 05/28/2021, 06/20/2020, Additional history exists [...] this encounter Medical Devices Implanted Type Area Restaurant Kitchen And Service Manager Device Identifier Shelf Expiration Date Model / Serial / Lot Kyphon Hv-R Bone Cement Implanted:Qty: 1 on 08/17/2016 by Michael Smith MD at OR [facility] N/A: Spine Thoracic 03/19/2019 C01A / C01A / [id number] Cement Bone Lv G 1119-140-01 - [id number] Implanted:Qty: 1 on 06/04/2018 by Duc Kimble MD at OR [facility] Right: Knee [employer] 11/19/20201119-1 40- / / [id number] Cement Bone Lv G 1119-140-01 - [id number] Implanted:Qty: 1 on 06/04/2018 by Duc Kimble MD at OR [facility] Right: Knee [employer] 06/19/20209- 40- / / [id number] Persona The Personlized Knee System Vivacit-E Highly Crosslinked Polyethylene All-Poly Patella Cemented Implanted:Qty: 1 on 06/04/2018 by Duc Kimble MD at OR [facility] Right: Knee [employer] 06/19/2022 42-5402-0 00-35 / / [id number] Tibia Stem 5 Deg Rt Size F - [id number] Implanted:Qty: 1 on 06/04/2018 by Duc Kimble MD at OR [facility] Right: Knee [employer] 10/21/2027 42-5320-0 75-02 / / [id number] Persona The Personalized Knee System Femur Cemented Cr Standard Implanted:Qty: 1 on 06/04/2018 by Duc Kimble MD at OR [facility] Right: Knee [employer] 11/20/2027 42-5026-0 62-02 / / [id number] Persona The Personalized Knee System Vivacit-E Highly Crosslinked Polyethylene Articular Surface Medial Congruent Implanted:Qty: 1 on 06/04/2018 by Duc Kimble MD at OR [facility] Right: Knee [employer] 11/19/2022 42-5221-0 07-12 / / [id number] Device Watchman Flx 24mm - [id number] Implanted:Qty: 1 on 10/06/2022 by Austin Penaloza MD at [facility] [employer] : INTRV CARD [id number] 03/07/2025 [id number] 40 / / [id number] Device Watchman Flx 27mm - [id number] Implanted:Qty: 1 on 10/06/2022 by Austin Penaloza MD at [facility] [employer] : INTRV CARD [id number] 08/07/2025 [id number] 70 / / [id number] documented as of this encounter Visit Diagnoses Diagnosis Dysuria documented in this encounter Advance Directives Latest [...] the patient have Health Care Power of Food Adviser? No Care Teams Necktie Maker Relationship Specialty Start Date End Date Nikunj Plascencia MD [address] [place] [address] PCP - General Family Medicine 10/31/19 documented as of this encounter
--- OUTSIDE RECORDS SUMMARY | 2023-07-29 04:07 | External Medical Summary | Summary of Care ---
Author Name Unknown Organization [facility] Address [address] [place] [address] Phone [phone] Care Team Providers Care Hanger Name Role Phone Nikunj Plascencia MD Primary Care Provider [phone] Encounter Details Date Type Department Care Team (Late st Contact Info) Description 05/23/2023 Telephone Pharmacy, [facility] 132 [facility] [place] [address] [facility] 21 [facility] [place] [address] Allergies Active Allergy Reactions [...] Particles (Cymbalta) 0 06/20/2022 Active Saline Nasal [place] 0.65 % Nasal Solution ([place]) Q6H 0 06/06/2022 Active Clobetasol Propionate 0.05 [...] Overview: Added automatically from request for surgery [id number] Nasal septal perforation 06/13/2022 Overview: Per ENT [...] 140/90 12/12/201111/09 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 07/30/2018 Overview: [place] palsy Tinea 06/27/2011 07/30/2018 Mixed urge and stress incontinence 12/15/2008 10/08/2019 ADVANCE DIRECTIVE INFORMATION 06/17/2004 10/08/2019 documented as of this encounter (statuses as of 05/23/2023) Immunizations Name Administration Dates Next Due COVID-19 mRNA, LNP-s, No Pre serve, 2-Dose Series ([employer]) 10/05/2020,09/14/2020 Covid-19, Mrna, Lnp-s, Pf, B ivalent, 30 Mcg, IM, 12 yrs and above ([employer]) 05/26/2022 Pneumococcal Conjugate Vacc, 13 Valent (Prevnar) 05/30/2016 Pneumococcal Conjugate Vacci ne, 20-valent ([id number]) 04/03/2023 Seasonal Influenza Virus Vac cine, Unspecified [...] have money to get more. Patient declined 10/ Sex and Gender Information Value Date Recorded [...] 05/24/2023 2:00 PM EDT Office Visit Podiatry [facility] 132 [place] [address] Eveline Layne, DPGeetha [address] [place] [address] 05/25/2023 10:00 AM EDT Procedure Only Urology, [place] [address] [place] [address] Luis Manuel Sandy MD [address] [place] [address] 06/07/2023 2:30 PM EDT Office Visit [place]ermatology [place] [address] [place] [address] Cyril Borges MD [address] [place] [address] 06/14/2023 1:00 PM EDT Office Visit Cosmetic Surgery & Aesthetics [facility] 16 [place] [address] Conor Venegas PA-C [address] [place] [address] 06/19/2023 1:30 PM EDT Nurse Only Rheumatology [facility] [address] [facility] [place] [address] Pf, Nurse Rheum [address] [facility] [place] [address] 06/22/2023 12:30 PM EDT Telemedicine Orthopaedics [facility] 132 [facility] [address] PA-C [address] [place] [address] 06/27/2023 1:20 PM EDT Office Visit Family Practice [facility] 132 [facility] [place] [address] Nikunj Plascencia MD 132 [facility] [place] [address] 07/03/2023 2:00 PM EDT Office Visit Nephrology, [place] [address] [place] [address] Geovanni Linder MD [address] [place] [address] 07/13/2023 2:30 PM EDT Office Visit Pharmacy, [facility] 132 [facility] [place] [address] [facility] 132 [facility] [place] [address] 09/27/2023 8:30 AM EDT Appointment Radiology, [place] [address] [place] [address] 09/27/2023 9:30 AM EDT Office Visit Urology, [place] [address] [place] [address] Luis Manuel Sandy MD [address] [place] [address] 12/04/2023 1:00 PM EDT Cardiac Studies Cardiac Studies, [address] [address] 12/13/2023 9:30 AM EDT Office Visit Cardiology, [address] [address] Austin Penaloza MD [address] [place] [address] 12/20/2023 2:30 PM EDT Imaging Radiology, [address] [place] [address] 12/20/2023 3:20 PM EDT Office Visit Rheumatology [address] [place] [address] John Yoder MD [address] [place] [address] [place] [address] Scheduled Procedures Name Priority Associated Diagnoses Date/Ti [...] D LEVEL ONCE IN A LIFETIME-USE SMARTSET# 88385 Completed 06/10/2022, 05/28/2021, 06/20/2020, Additional history exists [...] this encounter Medical Devices Implanted Type Area Dancer Or Choreographer Device Identifier Shelf Expiration Date Model / Serial / Lot Kyphon Hv-R Bone Cement Implanted:Qty: 1 on 08/17/2016 by Michael Smith MD at OR [facility] N/A: Spine Thoracic 03/19/2019 C01A / C01A / [id number] Cement Bone Lv G 1119-140-01 - [id number] Implanted:Qty: 1 on 06/04/2018 by Duc Kimble MD at OR [facility] Right: Knee [employer] 11/19/2020 40- / / [id number] Cement Bone Lv G 1119-140-01 - [id number] Implanted:Qty: 1 on 06/04/2018 by Duc Kimble MD at OR [facility] Right: Knee [employer] 06/19/2020 40- / / [id number] Persona The Personlized Knee System Vivacit-E Highly Crosslinked Polyethylene All-Poly Patella Cemented Implanted:Qty: 1 on 06/04/2018 by Duc Kimble MD at OR [facility] Right: Knee [employer] 06/19/2022 42-5402-0 00-35 / / [id number] Tibia Stem 5 Deg Rt Size F - [id number] Implanted:Qty: 1 on 06/04/2018 by Duc Kimble MD at OR [facility] Right: Knee [employer] 10/21/2027 42-5320-0 75-02 / / [id number] Persona The Personalized Knee System Femur Cemented Cr Standard Implanted:Qty: 1 on 06/04/2018 by Duc Kmible MD at OR [facility] Right: Knee [employer] 11/20/2027 42-5026-0 62-02 / / [id number] Persona The Personalized Knee System Vivacit-E Highly Crosslinked Polyethylene Articular Surface Medial Congruent Implanted:Qty: 1 on 06/04/2018 by Duc Kimble MD at OR [facility] Right: Knee [employer] 11/19/2022 42-5221-0 07-12 / / [id number] Device Watchman Flx 24mm - [id number] Implanted:Qty: 1 on 10/06/2022 by Austin Penaloza MD at [facility] [employer] : INTRV CARD [id number] 03/07/2025 [id number] 40 / / [id number] Device Watchman Flx 27mm - [id number] Implanted:Qty: 1 on 10/06/2022 by Austin Penaloza MD at [facility] [employer] : INTRV CARD [id number] 08/07/2025 [id number] 70 / / [id number] documented as of this encounter Advance Directives [...] the patient have Health Care Power of Senior Property Accountant? No Care Teams Hanger Relationship Specialty Start Date End Date Nikunj Plascencia MD [address] [place] [address] PCP - General Family Medicine 10/31/19 documented as of this encounter
--- OUTSIDE RECORDS SUMMARY | 2023-07-29 04:07 | External Medical Summary | Summary of Care ---
Author Name Unknown Organization [facility] Address [address] [place] [address] Phone [phone] Care Team Providers Care Director Women Name Role Phone Nikunj Plascencia MD Primary Care Provider [phone] Reason for Visit * Reason Comments Follow Up Bilateral feet Encounter Details Date Type Department Care Team (Late st Contact Info) Description 05/24/2023 2:00 PM EDT Office Visit Podiatry [facility] 132 [facility] [place] [address] Eveline Layne, DP 400 [place] [address] Sinus tarsitis of left foot*; [...] Informant: Patient, Reported on 04/03/2023 Saline Nasal [place] 0.65 % Nasal Solution ([place]) Q6H 0 06/06/2022 Active Clobetasol Propionate 0.05 [...] both feet 2.5 mg IJ ONCE 05/24/2023 05/25/2023 Active bupivacaine (Sensorcaine) 0.5 % inj 2.5 mgIndications:Plantar fasciitis, right,Pain in both feet 2.5 mg IJ ONCE 05/24/2023 05/25/2023 Active dexamethasone sodium phosphate 20 MG/5ML inj 2 mgIndications:Sinus tarsitis of left foot,Pain in both feet 2 mg IJ ONCE 05/24/2023 05/25/2023 Active dexamethasone sodium phosphate 20 MG/5ML inj 2 mgIndications:Plantar fasciitis, right,Pain in both feet 2 mg IJ ONCE 05/24/2023 05/25/2023 Active methylPREDNISolone acetate (Depo-Medrol) 20 MG/ML inj 10 mgIndications:Sinus tarsitis of left foot,Pain in both feet 10 mg INTRABURSAL ONCE 05/24/2023 05/25/2023 Active methylPREDNISolone acetate (Depo-Medrol) 20 MG/ML inj 10 mgIndications:Plantar fasciitis, right,Pain in both feet 10 mg INTRABURSAL ONCE 05/24/2023 05/25/2023 Active documented as of this encounter (statuses as of 05/24/2023) Active Problems Problem Noted Date Diagnosed Date Renal stone 03/21/2023 Food insecurity 01/02/2023 Overview: Per [facility] Protocol Presence of Watchman left atrial appendage closu re device 12/19/2022 PAF (paroxysmal atrial fibrillation) 08/17/2022 Overview: Added automatically from request for surgery [id number] Nasal septal perforation 06/13/2022 Overview: Per ENT [...] 140/90 12/12/201111/09 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 07/30/2018 Overview: [place] palsy Tinea 06/27/2011 07/30/2018 Mixed urge and stress incontinence 12/15/2008 10/08/2019 ADVANCE DIRECTIVE INFORMATION 06/17/2004 10/08/2019 documented as of this encounter (statuses as of 05/24/2023) Immunizations Name Administration Dates Next Due COVID-19 mRNA, LNP-s, No Pre serve, 2-Dose Series ([employer]) 10/05/2020,09/14/2020 Covid-19, Mrna, Lnp-s, Pf, B ivalent, 30 Mcg, IM, 12 yrs and above ([employer]) 05/26/2022 Pneumococcal Conjugate Vacc, 13 Valent (Prevnar) 05/30/2016 Pneumococcal Conjugate Vacci ne, 20-valent ([id number]) 04/03/2023 Seasonal Influenza Virus Vac cine, Unspecified [...] 05/24/2023 1:16 PM EDT Podiatry Established Note [facility] Name: Caroline Paulino : 1955 Date: [...] on chronic diastolic CHF (congestive heart failure) ([facility]) 01/26/2018 Allergic rhinitis Collazo's palsy left eye palsy Benign neoplasm of colon 11/20/2010 hyperplastic polyps- repeat colonoscopy in 10 years Bicuspid aortic valve 10/09/2019 Bullous pemphigoid 08/17/2016 txt with cellcept Chronic insomnia 12/22/2020 CKD (chronic kidney disease) stage 3, GFR 30-59 ml/min ([facility]) Compression fracture of body of thoracic vertebra ([facility]) 08/17/2016 Controlled substance agreement terminated 10/20/2021 Current tear of medial cartilage or meniscus of knee left knee Depression with anxiety 10/20/2021 Depressive disorder, not elsewhere classified Disorder of adrenal gland ([facility]) 01/26/2018 Dyslipidemia 12/20/2019 Fall 06/30/2022 Female stress [...] Moderate episode of recurrent major depressive disorder ([facility]) 10/08/2019 Other pulmonary embolism without acute cor pulmonale ([facility]) 07/27/2018 Overflow incontinence Paroxysmal atrial flutter ([facility]) 06/21/2021 Presence of Watchman left atrial appendage closure device 12/19/2022 Recurrent major depressive disorder in remission ([facility]) 01/26/2018 S/P kyphoplasty 08/17/2016 Sacroiliitis ([facility]) 01/26/2018 Senile osteoporosis 08/29/2017 Spinal stenosis of [...] 05/25/2023 10:00 AM EDT Procedure Only Urology, [place] [address] [place] [address] Luis Manuel Sandy MD [address] [place] [address] 06/07/2023 2:30 PM EDT Office Visit Dermatology [facility] [address] [place] [address] Cyril Borges MD 16 [place] [address] 06/14/2023 1:00 PM EDT Office Visit Cosmetic Surgery & Aesthetics [facility] [address] [place] [address] Conor Venegas PA-C [address] [place] [address] 06/19/2023 1:30 PM EDT Nurse Only Rheumatology [place] [address] [place] [address] Pf, Nurse Rheum [facility] [place] [address] 06/22/2023 12:30 PM EDT Telemedicine Orthopaedics [facility] 132 [place] [address] PA-C [address] [place] [address] [place] [address] 06/27/2023 1:20 PM EDT Office Visit Family Practice [facility] 132 [place] [address] Nikunj Plascencia MD 132 [place] [address] 07/03/2023 2:00 PM EDT Office Visit Nephrology, [facility] 200 [facility] [place] [address] Geovanni Linder MD 200 [facility] [place] [address] 07/13/2023 2:30 PM EDT Office Visit Pharmacy, [facility] 132 [place] [address] [facility] 132 [place] [address] 08/23/2023 2:00 PM EDT Office Visit Podiatry [facility] 132 [place] [address] Eveline Layne, JAMAL 400 [facility] [place] [address] 09/27/2023 8:30 AM EDT Appointment Radiology, [address] [address] 09/27/2023 9:30 AM EDT Office Visit Urology, [place] [address] [place] [address] Luis Manuel Sandy MD [address] [place], [place] [address] 12/04/2023 1:00 PM EDT Cardiac Studies Cardiac Studies, [facility] 132 [facility] [place] [address] 12/13/2023 9:30 AM EDT Office Visit Cardiology, [facility] 132 [facility] [place] [address] Austin Penaloza MD [address] [place] [address] 12/20/2023 2:30 PM EDT Imaging Radiology, [address] [place] [address] 12/20/2023 3:20 PM EDT Office Visit Rheumatology [place] [address] [facility] [place] [address] John Yoder MD [facility] B-Obvious [place] [address] Scheduled Procedures Name Priority Associated Diagnoses Date/Ti [...] D LEVEL ONCE IN A LIFETIME-USE SMARTSET# [id number] Completed 06/10/2022, 05/28/2021, 06/20/2020, Additional history exists [...] this encounter Medical Devices Implanted Type Area Copy Center Operator Device Identifier Shelf Expiration Date Model / Serial / Lot Kyphon Hv-R Bone Cement Implanted:Qty: 1 on 08/17/2016 by Michael Smith MD at [place] [facility] N/A: Spine Thoracic 03/19/2019 C01A / C01A / [id number] Cement Bone Lv G 1119-140-01 - [id number] Implanted:Qty: 1 on 06/04/2018 by Duc Kimble MD at OR [facility] Right: Knee [employer] 11/19/2020 00-1119-1 40-01 / / [id number] Cement Bone Lv G 1119-140-01 - [id number] Implanted:Qty: 1 on 06/04/2018 by Duc Kimble MD at OR [facility] Right: Knee [employer] 06/19/2020-1119-1 40-01 / / [id number] Persona The Personlized Knee System Vivacit-E Highly Crosslinked Polyethylene All-Poly Patella Cemented Implanted:Qty: 1 on 06/04/2018 by Duc Kimble MD at OR [facility] Right: Knee [employer] 06/19/2022 42-5402-0 00-35 / / [id number] Tibia Stem 5 Deg Rt Size F - [id number] Implanted:Qty: 1 on 06/04/2018 by Duc Kimble MD at OR [facility] Right: Knee [employer] 10/21/2027 42-5320-0 75-02 / / [id number] Persona The Personalized Knee System Femur Cemented Cr Standard Implanted:Qty: 1 on 06/04/2018 by Duc Kimble MD at OR [facility] Right: Knee [employer] 11/20/2027 42-5026-0 62-02 / / [id number] Persona The Personalized Knee System Vivacit-E Highly Crosslinked Polyethylene Articular Surface Medial Congruent Implanted:Qty: 1 on 06/04/2018 by Duc Kimble MD at OR [facility] Right: Knee [employer] 11/19/2022 42-5221-0 07-12 / / [id number] Device Watchman Flx 24mm - [id number] Implanted:Qty: 1 on 10/06/2022 by Austin Penaloza MD at [facility] [place] [employer] : INTRV CARD [id number] 03/07/2025 [id number] 40 / / [id number] Device Watchman Flx 27mm - [id number] Implanted:Qty: 1 on 10/06/2022 by Austin Penaloza MD at [facility] [place] [employer] : INTRV CARD [id number] 08/07/2025 [id number] 70 / / [id number] documented as of this encounter Visit Diagnoses Diagnosis Sinus tarsitis of left foot- Primary Plantar fasciitis, right Plantar fascial fibromatosis Stage 3a chronic kidney disease (HCC) Pre-ulcerative calluses Corns and callosities Pain in both feet Pain in limb documented in this encounter Advance Directives Latest [...] the patient have Health Care Power of Millinery Copyist? No Care Teams Director Women Relationship Specialty Start Date End Date Nikunj Plascencia MD 132 [facility] [place] [address] PCP - General Family Medicine 10/31/19 documented as of this encounter
--- OUTSIDE RECORDS SUMMARY | 2023-07-29 04:08 | External Medical Summary | Summary of Care ---
Author Name Unknown Organization [facility] Address [address] [place] [address] Phone [phone] Care Team Providers Care Distribution Sales Manager Name Role Phone Nikunj Plascencia MD Primary Care Provider [phone] Encounter Details Date Type Department Care Team (Late st Contact Info) Description 05/17/2023 New Patient Triage (INSPECTOR FIREARMS USE ONLY) Cardiology [facility] [address] [place] [address] Mireille Yadav, RN Allergies Active Allergy Reactions Criticality Noted Date Comments Egg Shells Nausea/vomiting Medium 06/16/2018 Other reaction(s): GI SYMPTOMS Egg Yolk High 11/29/2019 Other reaction(s): GI upset Ibuprofen Other (Please comment) Medium 07/30/2010 Stomach upset Morphine Edema face/lips/tongue High 08/28/2021 Other reaction(s): LEGS SWELL documented as of this encounter (statuses as of 05/17/2023) Medications Medication Sig Dispensed Refills Start Date [...] 15 minutes. 25 Tablet 11 03/01/2021 Active Additional Information Patient not taking.Informant: Patient, Reported on 04/03/2023 DULoxetine HCl 60 MG Oral Capsule Delayed [...] Particles (Cymbalta) 0 06/20/2022 Active Saline Nasal [place] 0.65 % Nasal Solution ([place]) Q6H 0 06/06/2022 Active Clobetasol Propionate 0.05 [...] the morning. 90 Capsule 3 04/03/2023 Active oxyCODONE-Acetaminop hen 5-325 MG Oral Tablet (Percocet) Take 1 Tablet by mouth every 4 hours as needed for Pain, Moderate. 5 Tablet 0 05/01/2023 Active Memantine HCl 5 MG Oral Tablet [...] as of this encounter (statuses as of 05/17/2023) Active Problems Problem Noted Date Diagnosed Date Renal stone 03/21/2023 Food insecurity 01/02/2023 Overview: Per [facility] Protocol Presence of Watchman left atrial appendage closu re device 12/19/2022 PAF (paroxysmal atrial fibrillation) 08/17/2022 Overview: Added automatically from request for surgery [id number] Nasal septal perforation 06/13/2022 Overview: Per ENT [...] as of this encounter (statuses as of 05/17/2023) Resolved Problems Problem Noted Date Diagnosed Date [...] 140/90 12/12/201111/09 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 07/30/2018 Overview: [place] palsy Tinea 06/27/2011 07/30/2018 Mixed urge and stress incontinence 12/15/2008 10/08/2019 ADVANCE DIRECTIVE INFORMATION 06/17/2004 10/08/2019 documented as of this encounter (statuses as of 05/17/2023) Immunizations Name Administration Dates Next Due COVID-19 mRNA, LNP-s, No Pre serve, 2-Dose Series (Lavish Skate) 10/05/2020,09/14/2020 Covid-19, Mrna, Lnp-s, Pf, B ivalent, 30 Mcg, IM, 12 yrs and above (Pfizer) 05/26/2022 Pneumococcal Conjugate Vacc, 13 Valent (Prevnar) 05/30/2016 Pneumococcal Conjugate Vacci ne, 20-valent ([id number]) 04/03/2023 Seasonal Influenza Virus Vac cine, Unspecified [...] Progress Notes * Mireille Yadav, RN - 05/17/2023 10:52 AM EDT New Patient Triage What is the diagnosis/reason for referral?: Aortic Stenosis Enter order ID here: [id number] Specialty specific documentation: Cardiology Structural Heart Please see multidisciplinary follow up note WU López Interventional Valve Nurse Navigator documented in this encounter Plan of Treatment Upcoming Encounters Date Type Department Care Team (Late st Contact Info) Description 05/19/2023 1:30 PM EDT Office Visit Cardiology, [facility] [address] [facility] [place] [id number] Lila Burger CRNP [address] [place] [address] [place] [address] 05/24/2023 2:00 PM EDT Office Visit Podiatry [facility] [address] [place] [address] Eveline Layne, DPM [address] [place] [address] 05/25/2023 10:00 AM EDT Procedure Only Urology, [place] [address] [place] [address] Luis Manuel Sandy MD [address] [place] [address] 06/07/2023 2:30 PM EDT Office Visit Dermatology [facility] 16 [place] [address] Cyril Borges MD 16 [place] [address] 06/14/2023 1:00 PM EDT Office Visit Cosmetic Surgery & Aesthetics [facility] 16 [place] [address] Conor Venegas PA-C [address] [place] [address] 06/19/2023 1:30 PM EDT Nurse Only Rheumatology [facility] [address] [facility] [place] [address] Pf, Nurse Rheum [facility] [facility] [address] 06/22/2023 12:30 PM EDT Telemedicine Orthopaedics [facility] 132 [facility] [place] [address] PA-C [facility] [employer] [address] [place] [id number] 06/27/2023 1:20 PM EDT Office Visit Family Practice [facility] [address] [facility] [place], [place] [address] Nikunj Plascencia MD [address] [facility] [place] [address] 07/03/2023 2:00 PM EDT Office Visit Nephrology, [facility] [address] [facility] [place] [address] Geovanni Linder MD [address] [facility] [place] [address] 07/13/2023 2:30 PM EDT Office Visit [facility], [facility] [place] [address] [facility] 132 [facility] [place] [address] 09/27/2023 8:30 AM EDT Appointment Radiology, [place] [address] [place] [address] 09/27/2023 9:30 AM EDT Office Visit Urology, [place] [address] [place] [address] Luis Manuel Sandy MD [address] [place] [address] 12/20/2023 2:30 PM EDT Imaging Radiology, [address] [place] [address] 12/20/2023 3:20 PM EDT Office Visit Rheumatology [address] [place], [place] [address] John Yoder MD [address] [place] [address] [place] [address] Scheduled Orders Name Type Priority Associated Diagnoses Orde r Schedule EKG EKG Routine Aortic valve stenosis Expected: 08/17/2023 (Approximate), Expires: 05/16/2024 Scheduled Procedures Name Priority Associated Diagnoses Date/Ti me ROBOTIC ARTHROPLASTY KNEE TOTAL Knee osteoarthritis COLONOSCOPY FLEXIBLE PROXIMA L DIAGNOSTIC Recall History of colonic polyps Health Maintenance Due Date Last Done Comments Zoster Vaccines (1 of 2) 1976 HOME BP CUFF VALIDATION YEARLY 04/02/2020 04/02/2019 COVID-19 Vaccine (4 - season) 2022 05/26/2022, 10/05/2020, 09/14/2020 Mammogram [...] D LEVEL ONCE IN A LIFETIME-USE SMARTSET# 76617 Completed 06/10/2022, 05/28/2021, 06/20/2020, Additional history exists [...] this encounter Medical Devices Implanted Type Area Cable Splicer Device Identifier Shelf Expiration Date Model / Serial / Lot Kyphon Hv-R Bone Cement Implanted:Qty: 1 on 08/17/2016 by Michael Smith MD at OR [facility] N/A: Spine Thoracic 03/19/2019 C01A / C01A / [id number] Cement Bone Lv G 1119-140-01 - [id number] Implanted:Qty: 1 on 06/04/2018 by Duc Kimble MD at OR [facility] Right: Knee [employer] 11/19/2020 00-1119-1 40-01 / / [id number] Cement Bone Lv G 1119-140-01 - [id number] Implanted:Qty: 1 on 06/04/2018 by Duc Kimble MD at OR [facility] Right: Knee [employer] 06/19/2020-1119-1 40-01 / / [id number] Persona The Personlized Knee System Vivacit-E Highly Crosslinked Polyethylene All-Poly Patella Cemented Implanted:Qty: 1 on 06/04/2018 by Duc Kimble MD at OR [facility] Right: Knee [employer] 06/19/2022 42-5402-0 00-35 / / [id number] Tibia Stem 5 Deg Rt Size F - [id number] Implanted:Qty: 1 on 06/04/2018 by Duc Kimble MD at OR [facility] Right: Knee [employer] 10/21/2027 42-5320-0 75-02 / / [id number] Persona The Personalized Knee System Femur Cemented Cr Standard Implanted:Qty: 1 on 06/04/2018 by Duc Kimble MD at OR [facility] Right: Knee [employer] 11/20/2027 42-5026-0 62- / [id number] Persona The Personalized Knee System Vivacit-E Highly Crosslinked Polyethylene Articular Surface Medial Congruent Implanted:Qty: 1 on 06/04/2018 by Duc Kimble MD at OR [facility] Right: Knee [employer] 11/19/2022 42-5221-0 07-12 [id number] Device Watchman Flx 24mm - [id number] Implanted:Qty: 1 on 10/06/2022 by Austin Penaloza MD at [facility] [employer] : INTRV CARD [id number] 03/07/2025 [id number] 40 / / [id number] Device Watchman Flx 27mm - [id number] Implanted:Qty: 1 on 10/06/2022 by Austin Penaloza MD at [facility] [employer] : INTRV CARD [id number] 08/07/2025 [id number] 70 / / [id number] documented as of this encounter Visit Diagnoses Diagnosis Aortic valve stenosis- Primary Aortic valve disorders documented in this encounter Advance Directives Latest [...] the patient have Health Care Power of Transverse Abdominal Muscle Nurse? No Care Teams Distribution Sales Manager Relationship Specialty Start Date End Date Nikunj Plascencia MD [address] [place] [address] PCP - General Family Medicine 10/31/19 documented as of this encounter
--- OUTSIDE RECORDS SUMMARY | 2023-07-29 04:08 | External Medical Summary ---
Author Name Unknown Address Unknown Organization K01:[facility] - [address] [place] [id number] Laboratory Report Ordering Provider Test Date Status KANCHAN GUTIERREZ 05/19/2023 13:50:14 Final Observation Date Value Abnormality Reference (Units) Status Bacteria identified in Specimen by Culture 05/19/2023 13:50:14 No significant growth Final Test: Culture, Urine, Quanti tative
Specimen Source: Urine, Clean Catch
Specimen Type: Urine
Specimen Date: 05/19/2023 1:50 PM
Result Date: 05/20/2023 4:07 PM
Result Status: Final result
Resulting Lab: [facility]
[address]
[place] [address]

CULTURE

No significant growth

null Performing Location [facility] - [address] [facility] [address]
--- OUTSIDE RECORDS SUMMARY | 2023-07-29 04:08 | External Medical Summary | Summary of Care ---
Author Name Unknown Organization [facility] Address [address] [place] [address] Phone [phone] Care Team Providers Care Vamp Stitcher Name Role Phone Nikunj Plascencia MD Primary Care Provider [phone] [phone] Encounter Details Date Type Department Care Team (Late st Contact Info) Description 05/17/2023 New Patient Triage (TRIM MACHINE ADJUSTER USE ONLY) Cardiology [facility] [address] [place] [address] Mireille Yadav, RN Allergies Active Allergy Reactions Criticality Noted Date Comments Egg Shells Nausea/vomiting Medium 06/16/2018 Other reaction(s): GI SYMPTOMS Egg Yolk High 11/29/2019 Other reaction(s): GI upset Ibuprofen Other (Please comment) Medium 07/30/2010 Stomach upset Morphine Edema face/lips/tongue High 08/28/2021 Other reaction(s): LEGS SWELL documented as of this encounter (statuses as of 05/18/2023) Medications Medication Sig Dispensed Refills Start Date [...] Particles (Cymbalta) 0 06/20/2022 Active Saline Nasal [place] 0.65 % Nasal Solution ([place]) Q6H 0 06/06/2022 Active Clobetasol Propionate 0.05 [...] as of this encounter (statuses as of 05/18/2023) Active Problems Problem Noted Date Diagnosed Date Renal stone 03/21/2023 Food insecurity 01/02/2023 Overview: Per [facility] Protocol Presence of Watchman left atrial appendage closu re device 12/19/2022 PAF (paroxysmal atrial fibrillation) 08/17/2022 Overview: Added automatically from request for surgery [id number] Nasal septal perforation 06/13/2022 Overview: Per ENT [...] as of this encounter (statuses as of 05/18/2023) Resolved Problems Problem Noted Date Diagnosed Date [...] 140/90 12/12/201111/09 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 07/30/2018 Overview: [place] palsy Tinea 06/27/2011 07/30/2018 Mixed urge and stress incontinence 12/15/2008 10/08/2019 ADVANCE DIRECTIVE INFORMATION 06/17/2004 10/08/2019 documented as of this encounter (statuses as of 05/18/2023) Immunizations Name Administration Dates Next Due COVID-19 mRNA, LNP-s, No Pre serve, 2-Dose Series (VertiFlex) 10/05/2020,09/14/2020 Covid-19, Mrna, Lnp-s, Pf, B ivalent, 30 Mcg, IM, 12 yrs and above (Pfizer) 05/26/2022 Pneumococcal Conjugate Vacc, 13 Valent (Prevnar) 05/30/2016 Pneumococcal Conjugate Vacci ne, 20-valent ([id number]) 04/03/2023 Seasonal Influenza Virus Vac cine, Unspecified [...] as of this encounter Progress Notes * Aarti Cortez DNP - 05/18/2023 8:21 PM EDT Does patient need to be seen?: Yes Modality: Office visit Urgency: Within 10 days (routine) Discussed care plan with patient or proxy?: Yes per valve team Communicated with patient on Date (mm/dd/yyyy): 05/17/2023 at Time ([facility]): [address] Aarti Cortez DNP, [place] [address] - [place] - [facility] * Renata Franklin OSA - 05/18/2023 1:08 PM EDT Appt scheduled, left message for pt to confirm * Mireille Yadav, RN - 05/17/2023 10:52 AM EDT New Patient Triage What is the diagnosis/reason for referral?: Aortic Stenosis Enter order ID here: [id number] Specialty specific documentation: Cardiology Structural Heart Please see multidisciplinary follow up note Mireille Yadav CCRN Interventional Valve Nurse Navigator documented in this encounter Plan of Treatment Upcoming Encounters Date Type Department Care Team (Late st Contact Info) Description 05/19/2023 1:30 PM EDT Office Visit Cardiology, [facility] [address] [place] [address] Lila Burger CRNP [address] [place], [place] [address] 05/24/2023 2:00 PM EDT Office Visit Podiatry [facility] [address] [place] [address] Eveline Layne DPM [address] [place] [address] 05/25/2023 10:00 AM EDT Procedure Only Urology, [place] [address] [place] [address] Luis Manuel Sandy MD [address] [place] [address] 06/07/2023 2:30 PM EDT Office Visit Dermatology [facility] [address] [place] [address] Cyril Borges MD [address] [place] [address] 06/14/2023 1:00 PM EDT Office Visit Cosmetic Surgery & Aesthetics [facility] [address] [place] [address] Conor Venegas PA-C [address] [place], [place] [address] 06/19/2023 1:30 PM EDT Nurse Only Rheumatology [facility] [address] [facility] [place] [address] Pf, Nurse Rheum [address] [facility] [place] [address] 06/22/2023 12:30 PM EDT Telemedicine Orthopaedics [facility] [address] [facility] [address] PA-C [address] [place] [address] 06/27/2023 1:20 PM EDT Office Visit Family Practice [facility] [address] [facility] [address] Nikunj [facility]asc[facility] 132 [facility] [address] 07/03/2023 2:00 PM EDT Office Visit Nephrology, [facility] [address] [place] [address] Geovanni Linder MD [address] [place] [address] 07/13/2023 2:30 PM EDT Office Visit Pharmacy, [facility] [address] [facility] [address] [facility] [address] 09/27/2023 8:30 AM EDT Appointment Radiology, [place] [address] [place] [address] 09/27/2023 9:30 AM EDT Office Visit Urology, [place] [address] [place] [address] Luis Manuel Sandy MD [address] [place] [address] 12/13/2023 9:30 AM EDT Office Visit Cardiology, [facility] [address] [place] [address] Austin Penaloza MD [address] [place], [place] [address] 12/20/2023 2:30 PM EDT Imaging Radiology, [address] [address] 12/20/2023 3:20 PM EDT Office Visit Rheumatology [address] [address] John Yoder MD [facility] [address] [facility] [place] [address] Scheduled Orders Name Type Priority Associated Diagnoses [...] D LEVEL ONCE IN A LIFETIME-USE SMARTSET# [id number] Completed 06/10/2022, 05/28/2021, 06/20/2020, Additional history exists [...] this encounter Medical Devices Implanted Type Area Assistant Financial Accountant Device Identifier Shelf Expiration Date Model / Serial / Lot Kyphon Hv-R Bone Cement Implanted:Qty: 1 on 08/17/2016 by Michael Smith MD at OR [facility] N/A: Spine Thoracic 03/19/2019 C01A / C01A / [id number] Cement Bone Lv G 1119-140-01 - [id number] Implanted:Qty: 1 on 06/04/2018 by Duc Kimble MD at OR [facility] Right: Knee [employer] 11/19/20201119-1 40-01 / / [id number] Cement Bone Lv G 1119-140-01 - [id number] Implanted:Qty: 1 on 06/04/2018 by Duc Kimble MD at OR [facility] Right: Knee [employer] 06/19/2020- 40-01 / / [id number] Persona The Personlized Knee System Vivacit-E Highly Crosslinked Polyethylene All-Poly Patella Cemented Implanted:Qty: 1 on 06/04/2018 by Duc Kimble MD at OR [facility] Right: Knee [employer] 06/19/2022 42-5402-0 00-35 / / [id number] Tibia Stem 5 Deg Rt Size F - [id number] Implanted:Qty: 1 on 06/04/2018 by Duc Kimble MD at OR [facility] Right: Knee [employer] 10/21/2027 42-5320-0 75-02 / / [id number] Persona The Personalized Knee System Femur Cemented Cr Standard Implanted:Qty: 1 on 06/04/2018 by Duc Kimble MD at OR [facility] Right: Knee [employer] 11/20/2027 42-5026-0 62-02 / / [id number] Persona The Personalized Knee System Vivacit-E Highly Crosslinked Polyethylene Articular Surface Medial Congruent Implanted:Qty: 1 on 06/04/2018 by Duc Kimble MD at OR [facility] Right: Knee [employer] 11/19/2022 42-5221-0 07-12 / [id number] Device Watchman Flx 24mm - [id number] Implanted:Qty: 1 on 10/06/2022 by Austin Penaloza MD at [facility] [employer] : INTRV CARD [id number] 03/07/2025 [id number] 40 / / [id number] Device Watchman Flx 27mm - [id number] Implanted:Qty: 1 on 10/06/2022 by Austin Penaloza MD at [facility] [employer] : INTRV CARD [id number] 08/07/2025 [id number] 70 / / [id number] documented as of this encounter Visit Diagnoses [...] the patient have Health Care Power of Front Window Cashier? No Care Teams Vamp Stitcher Relationship Specialty Start Date End Date Nikunj Plascencia MD [address] [place] [address] PCP - General Family Medicine 10/31/19 documented as of this encounter
--- OUTSIDE RECORDS SUMMARY | 2023-07-29 04:08 | External Medical Summary | Summary of Care ---
Author Name Unknown Organization [facility] Address [address] [place] [address] Phone [phone] Care Team Providers Care Automatic Head Sawyer Name Role Phone Nikunj Plascencia MD Primary Care Provider [phone] Encounter Details Date Type Department Care Team (Late st Contact Info) Description 05/17/2023 New Patient Triage (HAIR OR BEAUTY SALON MANAGER USE ONLY) Cardiology [facility] [address] [place] [address] Mireille Yadav, RN Allergies Active [...] Particles (Cymbalta) 0 06/20/2022 Active Saline Nasal [place] 0.65 % Nasal Solution ([place]) Q6H 0 06/06/2022 Active Clobetasol Propionate [...] Overview: Added automatically from request for surgery [id number] Nasal septal perforation 06/13/2022 Overview: Per ENT [...] 140/90 12/12/201111/09 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 07/30/2018 Overview: [place] palsy Tinea 06/27/2011 07/30/2018 Mixed urge and stress incontinence 12/15/2008 10/08/2019 ADVANCE DIRECTIVE INFORMATION 06/17/2004 10/08/2019 documented as of this encounter (statuses as of 05/18/2023) Immunizations Name Administration Dates Next Due COVID-19 mRNA, LNP-s, No Pre serve, 2-Dose Series (iPowow) 10/05/2020,09/14/2020 Covid-19, Mrna, Lnp-s, Pf, B ivalent, 30 Mcg, IM, 12 yrs and above (Pfizer) 05/26/2022 Pneumococcal Conjugate Vacc, 13 Valent (Prevnar) 05/30/2016 Pneumococcal Conjugate Vacci ne, 20-valent ([id number]) 04/03/2023 Seasonal Influenza Virus Vac cine, Unspecified [...] as of this encounter Progress Notes * Renata Franklin OSA - 05/18/2023 1:08 PM EDT Appt scheduled, left message for pt to confirm * Mireille Yadav, RN - 05/17/2023 10:52 AM EDT New Patient Triage What is the diagnosis/reason for referral?: Aortic Stenosis Enter order ID here: [id number] Specialty specific documentation: Cardiology Structural Heart Please see multidisciplinary follow up note WU López Interventional Valve Nurse Navigator documented in this encounter Plan of Treatment Upcoming Encounters Date Type Department Care Team (Late st Contact Info) Description 05/19/2023 1:30 PM EDT Office Visit Cardiology, [facility] [address] [place] [address] Lila Burger CRNP [address] [place] [address] 05/24/2023 2:00 PM EDT Office Visit Podiatry [facility] [address] [place] [address] Eveline Layne DPM [address] [place], [place] [phone] 05/25/2023 10:00 AM EDT Procedure Only Urology, [place] [address] [place], [place] [phone] Luis Manuel Sandy MD [address] [place] [address] 06/07/2023 2:30 PM EDT Office Visit Dermatology [facility] [address] [place] [address] Cyril Borges MD [address] [place] [address] 06/14/2023 8:30 AM EDT Office Visit Cardiology, [facility] [address] [place] [address] Austin Penaloza MD [address] [place], [place] [phone] 06/14/2023 1:00 PM EDT Office Visit Cosmetic Surgery & Aesthetics [facility] [address] [place], [place] [phone] Conor Venegas PA-C [address] [place] [address] 06/19/2023 1:30 PM EDT Nurse Only Rheumatology [facility] [address] [facility] [place], [place] [address] Pf, Nurse Rheum [address] [facility] [place] [address] 06/22/2023 12:30 PM EDT Telemedicine Orthopaedics [facility] [address] [place] [address] PA-C [address] [place] [address] [place], [place] [phone] 06/27/2023 1:20 PM EDT Office Visit Family Practice [facility] [address] [place] [address] Nikunj Plascencia MD [address] [place] [address] 07/03/2023 2:00 PM EDT Office Visit Nephrology, [facility] [address] [place] [address] Geovanni Linder MD [address] [facility] [address] 07/13/2023 2:30 PM EDT Office Visit Pharmacy, [facility] [address] [place] [address] [facility] [address] [place] [address] 09/27/2023 8:30 AM EDT Appointment Radiology, [place] [address] [place], [place] [address] 09/27/2023 9:30 AM EDT Office Visit Urology, [place] [address] [place], [place] [phone] Luis Manuel Sandy MD [address] [place], [place] [phone] 12/20/2023 2:30 PM EDT Imaging Radiology, [address] [place] [address] 12/20/2023 3:20 PM EDT Office Visit Rheumatology [address] [place] [address] John Yoder MD [address] [place] [address] [place] [address] Scheduled Orders Name Type Priority Associated Diagnoses [...] D LEVEL ONCE IN A LIFETIME-USE SMARTSET# [id number] Completed 06/10/2022, 05/28/2021, 06/20/2020, Additional history exists [...] this encounter Medical Devices Implanted Type Area Hemodialysis Patient Care Specialist Device Identifier Shelf Expiration Date Model / Serial / Lot Kyphon Hv-R Bone Cement Implanted:Qty: 1 on 08/17/2016 [place] [facility] [place]: Spine Thoracic 03/19/2019 C01A / C01A / [id number] Cement Bone [place] G 1119-140-01 - [id number] Implanted:Qty: 1 on 06/04/2018 by Duc Kimble MD at OR [facility] Right: Knee [employer] 11/19/2020-1119-1 40- / / [id number] Cement Bone [place] G 1119-140-01 - [id number] Implanted:Qty: 1 on 06/04/2018 by Duc Kimble MD at OR [facility] Right: Knee [employer] 06/19/2020-1119-1 40- / / [id number] Persona The Personlized Knee System Vivacit-E Highly Crosslinked Polyethylene All-Poly Patella Cemented Implanted:Qty: 1 on 06/04/2018 by Duc Kimble MD at OR [facility] Right: Knee [employer] 06/19/2022 42-5402-0 00-35 / / [id number] Tibia Stem 5 Deg Rt Size F - [id number] Implanted:Qty: 1 on 06/04/2018 by Duc Kimble MD at OR [facility] Right: Knee [employer] 10/21/2027 42-5320-0 75-02 / / [id number] Persona The Personalized Knee System Femur Cemented Cr Standard Implanted:Qty: 1 on 06/04/2018 by Duc Kimble MD at OR [facility] Right: Knee [employer] 11/20/2027 42-5026-0 62-02 / / [id number] Persona The Personalized Knee System Vivacit-E Highly Crosslinked Polyethylene Articular Surface Medial Congruent Implanted:Qty: 1 on 06/04/2018 by Duc Kimble MD at OR [facility] Right: Knee [employer] 11/19/2022 42-5221-0 07-12 / / [id number] Device Watchman Flx 24mm - [id number] Implanted:Qty: 1 on 10/06/2022 by Austin Penaloza [place] [facility] [facility] [place] [employer] : INTRV CARD [id number] 03/07/2025 [id number] 40 / / [id number] Device Watchman Flx 27mm - [id number] Implanted:Qty: 1 on 10/06/2022 by Austin Penaloza MD at [facility] [place] [employer] : INTRV CARD [id number] 08/07/2025 [id number] 70 / / [id number] documented as of this encounter Visit Diagnoses [...] the patient have Health Care Power of Entertainment Musician? No Care Teams Automatic Head Sawyer Relationship Specialty Start Date End Date Nikunj Plascencia MD [address] [place] [address] PCP - General Family Medicine 10/31/19 documented as of this encounter
--- OUTSIDE RECORDS SUMMARY | 2023-07-29 04:08 | External Medical Summary | Summary of Care ---
Author Name Unknown Organization [facility] Address [address] [place] [address] Phone [phone] Care Team Providers Care Learning And Development Associate Name Role Phone Nikunj Plascencia MD Primary Care Provider [phone] Reason for Visit * Reason Onset Date Comments Pre Cert/Prior Auth 05/11/2023 P[facility] Encounter Details Date Type Department Care Team (Late st Contact Info) Description 05/11/2023 Telephone Family Practice [facility] [address] [place] [address] Nikunj Plascencia MD [address] [facility] [place] [address] Pre Cert/Prior Auth (PACE prior auth for M... Allergies Active Allergy Reactions Criticality Noted Date [...] Particles (Cymbalta) 0 06/20/2022 Active Saline Nasal [place] 0.65 % Nasal Solution ([place]) Q6H 0 06/06/2022 Active Clobetasol Propionate 0.05 [...] the morning. 90 Capsule 3 04/03/2023 Active oxyCODONE-Acetamino phen 5-325 MG Oral Tablet (Percocet) Take 1 Tablet by mouth every 4 hours as needed for Pain, Moderate. 5 Tablet 0 05/01/2023 Active Memantine HCl 5 MG Oral Tablet (Namenda) TAKE 1 TABLET DAILY FOR 1 WEEK AND THEN 1 TABLET TWICE DAILY 180 Tablet 3 05/08/2023 Active Clopidogrel Bisulfate 75 MG Oral Tablet (pLAVix) Take 1 Tablet by mouth in the morning. 100 Tablet 1 12/14/2022 Discontinu ed(Patient preference /discontin uation) Hospital, Clinic, or Other Facility Administered Medication Ordered Dose Route Frequency Start Date End Date Status atropine sulfate inj 0.4 mgIndications:Chest pain, unspecified type 0.4 mg IV PUSH PRN 01/29/2021 Active documented as of this encounter (statuses as of 05/19/2023) Active Problems Problem Noted Date Diagnosed Date Renal stone 03/21/2023 Food insecurity 01/02/2023 Overview: Per [facility] Protocol Presence of Watchman left atrial appendage closu re device 12/19/2022 PAF (paroxysmal atrial fibrillation) 08/17/2022 Overview: Added automatically from request for surgery [id number] Nasal septal perforation 06/13/2022 Overview: Per ENT [...] 140/90 12/12/201111/09 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 07/30/2018 Overview: [place] palsy Tinea 06/27/2011 07/30/2018 Mixed urge and stress incontinence 12/15/2008 10/08/2019 ADVANCE DIRECTIVE INFORMATION 06/17/2004 10/08/2019 documented as of this encounter (statuses as of 05/19/2023) Immunizations Name Administration Dates Next Due COVID-19 mRNA, LNP-s, No Pre serve, 2-Dose Series (Vgift) 10/05/2020,09/14/2020 Covid-19, Mrna, Lnp-s, Pf, B ivalent, 30 Mcg, IM, 12 yrs and above (Vgift) 05/26/2022 Pneumococcal Conjugate Vacc, 13 Valent (Prevnar) 05/30/2016 Pneumococcal Conjugate Vacci ne, 20-valent ([id number]) 04/03/2023 Seasonal Influenza Virus Vac cine, Unspecified [...] encounter Miscellaneous Notes * Telephone Encounter - Brittany Gomes LPN - 05/11/2023 10:43 AM EDT Received fax requesting prior auth for patients Memantine. Called pharmacy. Patient needs prior auth on secondary insurance (PACE) information obtained for prior auth. ID-[id number] [facility]-[id number] [facility] PHONE#[phone] PACE application completed and faxed in. Application placed in scanning. Will wait for response. documented in this encounter Plan of Treatment Upcoming Encounters Date Type Department Care Team (Late st Contact Info) Description 05/19/2023 1:30 PM EDT Office Visit Cardiology, [address] [address] Lila Burger CRNP [address] [place], [place] [phone] Severe aortic stenosis*; HTN, goal below 130/80; Paroxysmal atrial fibrillation (HCC); Coronary artery disease involving capitan grande band coronary artery of capitan grande band heart without angina pectoris; Dyslipidemia, goal LDL below 70 05/24/2023 2:00 PM EDT Office Visit Podiatry [facility] [address] [place] [address] Eveline Layne DPM [address] [place] [address] 05/25/2023 10:00 AM EDT Procedure Only Urology, [place] [address] [place], [place] [address] Luis Manuel Sandy MD [address] [place], [place] [phone] 06/07/2023 2:30 PM EDT Office Visit Dermatology [facility] [address] [place], [place] [phone] Cyril Borges MD [address] [place], [place] [phone] 06/14/2023 1:00 PM EDT Office Visit Cosmetic Surgery & Aesthetics [facility] [address] [place], [place] [phone] Conor Venegas PA-C [address] [place], [place] [phone] 06/19/2023 1:30 PM EDT Nurse Only Rheumatology [address] [place] [address] Pf, Nurse Rheum [address] [facility] [place], [place] [address] 06/22/2023 12:30 PM EDT Telemedicine Orthopaedics [facility] [address] [facility] [address] PA-C [address] [place], [place] [phone] 06/27/2023 1:20 PM EDT Office Visit Family Practice [facility] [address] [place] [address] Nikunj Plascencia MD [address] [facility] [place] [address] 07/03/2023 2:00 PM EDT Office Visit Nephrology, [facility] [address] [facility] [place] [address] Geovanni Linder MD [address] [place] [address] 07/13/2023 2:30 PM EDT Office Visit Pharmacy, [facility] [address] [place] [address] [facility] [address] [place] [address] 09/27/2023 8:30 AM EDT Appointment Radiology, [place] [address] [place], [place] [address] 09/27/2023 9:30 AM EDT Office Visit Urology, [place] [address] [place], [place] [address] Luis Manuel Sandy MD [address] [place] [address] 12/13/2023 9:30 AM EDT Office Visit Cardiology, [facility] [address] [place] [address] Austin Penaloza MD [address] [place] [address] 12/20/2023 2:30 PM EDT Imaging Radiology, [address] [place] [address] 12/20/2023 3:20 PM EDT Office Visit Rheumatology [address] [place] [address] John Yoder MD [facility] [place] [address] Scheduled Procedures Name Priority Associated Diagnoses Date/Ti [...] D LEVEL ONCE IN A LIFETIME-USE SMARTSET# 86099 Completed 06/10/2022, 05/28/2021, 06/20/2020, Additional history exists [...] this encounter Medical Devices Implanted Type Area Brim Molder Device Identifier Shelf Expiration Date Model / Serial / Lot Kyphon Hv-R Bone Cement Implanted:Qty: 1 on 08/17/2016 by Michael Smith MD at OR [facility] N/A: Spine Thoracic 03/19/2019 C01A / C01A / [id number] Cement Bone [place] G 1119-140-01 - [id number] Implanted:Qty: 1 on 06/04/2018 by Duc Kimble MD at OR [facility] Right: Knee [employer] 11/19/2020-1119-1 40 / [id number] Cement Bone L[place] G 1119-140-01 - [id number] Implanted:Qty: 1 on 06/04/2018 by Duc Kimble MD at OR [facility] Right: Knee [employer] 06/19/2020-1119-1 40- / / [id number] Persona The Personlized Knee System Vivacit-E Highly Crosslinked Polyethylene All-Poly Patella Cemented Implanted:Qty: 1 on 06/04/2018 by Duc Kimble MD at OR [facility] Right: Knee [employer] 06/19/2022 42-5402-0 00-35 / / [id number] Tibia Stem 5 Deg Rt Size F - [id number] Implanted:Qty: 1 on 06/04/2018 by Duc Kimble MD at OR [facility] Right: Knee [employer] 10/21/2027 42-5320-0 75-02 / / [id number] Persona The Personalized Knee System Femur Cemented Cr Standard Implanted:Qty: 1 on 06/04/2018 by Duc Kimble MD at OR [facility] Right: Knee [employer] 11/20/2027 42-5026-0 62-02 / / [id number] Persona The Personalized Knee System Vivacit-E Highly Crosslinked Polyethylene Articular Surface Medial Congruent Implanted:Qty: 1 on 06/04/2018 by Duc Kimble MD at OR [facility] Right: Knee [employer] 11/19/2022 42-5221-0 07-12 / / [id number] Device Watchman Flx 24mm - [id number] Implanted:Qty: 1 on 10/06/2022 by Austin Penaloza MD at [facility] [employer] : INTRV CARD [id number] 03/07/2025 [id number] 40 / / [id number] Device Watchman Flx 27mm - [id number] Implanted:Qty: 1 on 10/06/2022 by Austin Penaloza MD at [facility] [employer] : INTRV CARD [id number] 08/07/2025 [id number] 70 / / [id number] documented as of this encounter Advance Directives [...] the patient have Health Care Power of Electrician Marine? No Care Teams Learning And Development Associate Relationship Specialty Start Date End Date Nikunj Plascencia MD [address] [place] [address] PCP - General Family Medicine 10/31/19 documented as of this encounter
--- OUTSIDE RECORDS SUMMARY | 2023-07-29 04:08 | External Medical Summary | Summary of Care ---
Author Name Unknown Organization [facility] Address [address] [place] [address] Phone [phone] Care Team Providers Care Blood Bank Laboratory Technologist Name Role Phone Nikunj Plascencia MD Primary Care Provider [phone] Reason for Referral * Evaluate & Treat - Unlimited Visits (Within 30 days (routine)) - Authorized Specialty Diagnoses / Procedures Referred By Kieran nicole Referred To Contact Cardiovascular Medicine Diagnoses Severe aortic stenosis Lila Bautista CRNP [address] [place] [address] Referral ID Status Reason Start Date Expiration Date Visits Requested Visits Authorized [id number] Authorized Specialty Services Required 05/16/2023 999 999 Question Answer Referral Priority Within 30 days (routine) Where should this appointment be scheduled? Julián Comments - severe per echo 04/2023 Encounter Details Date Type Department Care Team (Late st Contact Info) Description 05/16/2023 Telephone Cardiology, [facility] [address] [place] [address] Lila Bautista CRNP [address] [place] [address] Allergies Active Allergy Reactions Criticality Noted Date [...] Particles (Cymbalta) 0 06/20/2022 Active Saline Nasal [place] 0.65 % Nasal Solution ([place]) Q6H 0 06/06/2022 Active Clobetasol Propionate 0.05 [...] stone 03/21/2023 Food insecurity 01/02/2023 Overview: Per [facility] Protocol Presence of Watchman left atrial appendage closu re device 12/19/2022 PAF (paroxysmal atrial fibrillation) 08/17/2022 Overview: Added automatically from request for surgery [id number] Nasal septal perforation 06/13/2022 Overview: Per ENT [...] 140/90 12/12/201111/09 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 07/30/2018 Overview: [place] palsy Tinea 06/27/2011 07/30/2018 Mixed urge and stress incontinence 12/15/2008 10/08/2019 ADVANCE DIRECTIVE INFORMATION 06/17/2004 10/08/2019 documented as of this encounter (statuses as of 05/19/2023) Immunizations Name Administration Dates Next Due COVID-19 mRNA, LNP-s, No Pre serve, 2-Dose Series ([employer]aker [employer]) 10/05/2020,09/14/2020 Covid-19, Mrna, Lnp-s, Pf, B ivalent, 30 Mcg, IM, 12 yrs and above (Spinnaker [employer]) 05/26/2022 Pneumococcal Conjugate Vacc, 13 Valent (Prevnar) 05/30/2016 Pneumococcal Conjugate Vacci ne, 20-valent ([id number]) 04/03/2023 Seasonal Influenza Virus Vac cine, Unspecified [...] Telephone Encounter - Lila Bautista CRNP - 05/18/2023 1:05 PM EDT Lila, You see this patient tomorrow- can you please relay my message to her. I will forward this to scheduling so they can maybe make the appt after follow up with you tomorrow. Thanks, MAICOL Amezcua * Telephone Encounter - Lila Bautista CRNP - 05/16/2023 3:41 PM EDT Please let the patient know that I reviewed her echocardiogram. Imaging showed a normal LVEF of 55-59%. Severe aortic stenosis noted with a velocity of 402.7 cm/sec, pressure gradient of 37 mmHg, and valve area of 0.98 cm2. Per KAVITA 11/2022 aortic stenosis was classified at as moderate. Degree of stenosis has worsened. Recommend referral back to the valve clinic to discuss need for intervention. MAICOL Amezcua documented in this encounter Plan of Treatment Upcoming Encounters Date Type Department Care Team (Late st Contact Info) Description 05/19/2023 1:30 PM EDT Office [address], [address] [address] Lila Burger CRNP [address] [place] [address] Severe aortic stenosis*; HTN, goal below 130/80; Paroxysmal atrial fibrillation (HCC); Coronary artery disease involving chitina coronary artery of chitina heart without angina pectoris; Dyslipidemia, goal LDL below 70 05/24/2023 2:00 PM EDT Office Visit Podiatry [address] [place] [address] Eveline Layne DPM [address] [place] [address] 05/25/2023 10:00 AM EDT Procedure Only Urology, [place] [address] [place] [address] Luis Manuel Sandy MD [address] [place] [address] 06/07/2023 2:30 PM EDT Office Visit Dermatology [facility] [address] [place] [address] Cyril Borges MD [address] [place] [address] 06/14/2023 1:00 PM EDT Office Visit Cosmetic Surgery & Aesthetics [facility] [address] [place] [address] Conor Venegas PA-C [address] [place] [address] 06/19/2023 1:30 PM EDT Nurse Only Rheumatology [place] [address] [place] [address] Pf, Nurse Rheum [address] [place] [address] 06/22/2023 12:30 PM EDT Telemedicine Orthopaedics [facility] 132 [place] [address] PA-C [address] [place] [address] 06/27/2023 1:20 PM EDT Office Visit Family Practice [facility] [address] [place] [address] Nikunj Plascencia MD [address] [place] [address] 07/03/2023 2:00 PM EDT Office Visit Nephrology, [facility] [address] [place], [place] [address] Geovanni Linder MD [address] [place] [address] 07/13/2023 2:30 PM EDT Office Visit Pharmacy, [facility] [address] [place] [address] [facility] 132 [place] [address] 09/27/2023 8:30 AM EDT Appointment Radiology, [place] [address], [place] [address] 09/27/2023 9:30 AM EDT Office Visit Urology, [place] [address] [place], [place] [address] Luis Manuel Sandy MD [address], [place] [address] 12/13/2023 9:30 AM EDT Office Visit Cardiology, [facility] [address] [place] [address] Austin Penaloza MD [address] [place] [address] 12/20/2023 2:30 PM EDT Imaging Radiology, [address] [place] [address] 12/20/2023 3:20 PM EDT Office Visit Rheumatology [address] [place], [place] [address] John Yoder MD [address] [place] [address] [place], [place] [address] Scheduled Procedures Name Priority Associated Diagnoses Date/Ti me ROBOTIC ARTHROPLASTY KNEE TOTAL Knee osteoarthritis COLONOSCOPY FLEXIBLE PROXIMA L DIAGNOSTIC Recall History of colonic polyps Scheduled Referrals Name Type Priority Associated Diagnoses Orde r Schedule VALVE CLINIC REFERRAL OP Referral Within 30 days (routine) Severe aortic stenosis Ordered: 05/16/2023 Health Maintenance Due Date Last Done Comments [...] D LEVEL ONCE IN A LIFETIME-USE SMARTSET# [id number] Completed 06/10/2022, 05/28/2021, 06/20/2020, Additional history exists [...] this encounter Medical Devices Implanted Type Area Surface Lay Out Technician Device Identifier Shelf Expiration Date Model / Serial / Lot Kyphon Hv-R Bone Cement Implanted:Qty: 1 on 08/17/2016 by Michael Smith MD at [place] [facility] [place]A: Spine Thoracic 03/19/2019 C01A / C01A / [id number] Cement Bone Lv G 1119-140-01 - [id number] Implanted:Qty: 1 on 06/04/2018 by Duc Kimble MD at OR [facility] Right: Knee [employer] 11/19/2020 00-1119-1 40- / / [id number] Cement Bone Lv G 1119-140-01 - [id number] Implanted:Qty: 1 on 06/04/2018 by Duc Kimble MD at OR [facility] Right: Knee [employer] 06/19/20201119-1 40- / / [id number] Persona The Personlized Knee System Vivacit-E Highly Crosslinked Polyethylene All-Poly Patella Cemented Implanted:Qty: 1 on 06/04/2018 by Duc Kimble MD at OR [facility] Right: Knee [employer] 06/19/2022 42-5402-0 00-35 / / [id number] Tibia Stem 5 Deg Rt Size F - [id number] Implanted:Qty: 1 on 06/04/2018 by Duc Kimble MD at OR [facility] Right: Knee [employer] 10/21/2027 42-5320-0 75-02 / / [id number] Persona The Personalized Knee System Femur Cemented Cr Standard Implanted:Qty: 1 on 06/04/2018 by Duc Kimble MD at OR [facility] Right: Knee [employer] 11/20/2027 42-5026-0 [id number] Persona The Personalized Knee System Vivacit-E Highly Crosslinked Polyethylene Articular Surface Medial Congruent Implanted:Qty: 1 on 06/04/2018 by Duc Kimble MD at OR [facility] Right: Knee [employer] 11/19/2022 42-5221-0 07-12 / / [id number] Device Watchman Flx 24mm - [id number] Implanted:Qty: 1 on 10/06/2022 by Austin Penaloza MD at [facility] [employer] : INTRV CARD [id number] 03/07/2025 [id number] 40 / / [id number] Device Watchman Flx 27mm - [id number] Implanted:Qty: 1 on 10/06/2022 by Austin Penaloza MD at [facility] [employer] : INTRV CARD [id number] 08/07/2025 [id number] 70 / / [id number] documented as of this encounter Visit Diagnoses Diagnosis Severe aortic stenosis- Primary Aortic valve disorders Severe aortic stenosis- Primary Aortic valve disorders HTN, goal below 130/80 Unspecified essential hypertension Paroxysmal atrial fibrillation (HCC) Atrial fibrillation Coronary artery disease involving chitina coronary artery of chitina heart without angina pectoris Dyslipidemia, goal LDL [...] the patient have Health Care Power of Conductor/Brakeman? No Care Teams Blood Bank Laboratory Technologist Relationship Specialty Start Date End Date Nikunj Plascencia MD [address] [place] [address] PCP - General Family Medicine 10/31/19 documented as of this encounter
--- OUTSIDE RECORDS SUMMARY | 2023-07-29 04:09 | External Medical Summary | Summary of Care ---
Author Name Unknown Organization [facility] Address [address] [place] [address] Phone [phone] Care Team Providers Care Director Of Research Center Name Role Phone Nikunj Plascencia MD Primary Care Provider [phone] Reason for Visit * Reason Onset Date Comments Returning Call 05/12/2023 Follow Up 05/12/2023 Procedure 05/12/2023 Encounter Details Date Type Department Care Team (Late st Contact Info) Description 05/12/2023 Telephone Cardiology [facility] [address] [place] [address] Prosper Flannery CRNP [address] [place], [place] [id number] Returning Call; Follow Up; Procedure Allergies Active Allergy Reactions Criticality Noted Date Comments Egg Shells Nausea/vomiting Medium 06/16/2018 Other reaction(s): GI SYMPTOMS Egg Yolk High 11/29/2019 Other reaction(s): GI upset Ibuprofen Other (Please comment) Medium 07/30/2010 Stomach upset Morphine Edema face/lips/tongue High 08/28/2021 Other reaction(s): LEGS SWELL documented as of this encounter (statuses as of 05/12/2023) Medications Medication Sig Dispensed Refills Start Date [...] Particles (Cymbalta) 0 06/20/2022 Active Saline Nasal [place] 0.65 % Nasal Solution ([place]) Q6H 0 06/06/2022 Active Clobetasol Propionate 0.05 [...] as of this encounter (statuses as of 05/12/2023) Active Problems Problem Noted Date Diagnosed Date Renal stone 03/21/2023 Food insecurity 01/02/2023 Overview: Per [facility] Protocol Presence of Watchman left atrial appendage closu re device 12/19/2022 PAF (paroxysmal atrial fibrillation) 08/17/2022 Overview: Added automatically from request for surgery [id number] Nasal septal perforation 06/13/2022 Overview: Per ENT [...] as of this encounter (statuses as of 05/12/2023) Resolved Problems Problem Noted Date Diagnosed Date [...] as of this encounter (statuses as of 05/12/2023) Immunizations Name Administration Dates Next Due COVID-19 mRNA, LNP-s, No Pre serve, 2-Dose Series ([place]) 10/05/2020,09/14/2020 Covid-19, Mrna, Lnp-s, Pf, B ivalent, 30 Mcg, IM, 12 yrs and above (Pfizer) 05/26/2022 Pneumococcal Conjugate Vacc, 13 Valent (Prevnar) 05/30/2016 Pneumococcal Conjugate Vacci ne, 20-valent ([id number]) 04/03/2023 Seasonal Influenza Virus Vac cine, Unspecified [...] encounter Miscellaneous Notes * Telephone Encounter - Prosper Flannery CRNP - 05/12/2023 2:33 PM EDT Watchman Follow up: Phone follow up Interval post procedure: 6 months Diagnostic Studies since last encounter ECHO: none LVEF: none KAVITA: none Device Margin residual leak: NA LABS: 04/28/2023 Creatinine 1.5 Hemoglobin 8.9 Barnes Scale: 3 Vy Index Eval: All independent except walking with walker Current Outpatient Medications Medication Sig Dispense Refill [...] Capsule Delayed Release Particles (Cymbalta) Saline Nasal [place] 0.65 % Nasal Solution ([place]) Q6H Clobetasol Propionate 0.05 % External Ointment [...] 1 TABLET TWICE DAILY 180 Tablet 3 Current Facility-Administered Medications Medication Dose Route Frequency Provider Last Rate Last Admin atropine sulfate inj 0.4 mg 0.4 mg IV Push PRN Trip Nolasco, DO Follow up Anticoag Therapy: Stop Plavix Stay on ASA 81 mg daily Any follow up events: none If Follow up events adjudication: none * Telephone Encounter - Ifeoma Monique OSA - 05/12/2023 2:01 PM EDT Person calling: Caroline Relationship to patient: self Number to return call: [phone] Reason for call (please describe): Returning call Prosper, The patient returned your call this PM. She can be reached at the number listed above. Thank you, Ifeoma Monique, LILY 05/12/2023, 2:02 PM documented in this encounter Plan of Treatment Upcoming Encounters Date Type Department Care Team (Late st Contact Info) Description 05/16/2023 1:30 PM EDT Cardiac Studies Card[facility] [address] 05/17/2023 11:00 AM EDT Office Visit Wound Care, [facility] [place] [address] PA-C [address] [place] [address] [place] [address] 05/19/2023 1:30 PM EDT Office Visit Cardiology, [address] [place] [address] Lila Burger CRNP 400 [place] [address] 05/24/2023 2:00 PM EDT Office Visit Podiatry [facility] 132 [facility] [place] [address] Eveline Layne DPM 400 [facility] [address] 05/25/2023 9:30 AM EDT Appointment Radiology, [address] [place] [address] 05/25/2023 10:00 AM EDT Procedure Only Urology, [place] [address] [place] [address] Luis Manuel Sandy MD [address] [place] [address] 06/07/2023 2:30 PM EDT Office Visit Dermatology [facility] [address] [place] [address] Cyril Borges MD [address] [place] [address] 06/14/2023 1:00 PM EDT Office Visit Cosmetic Surgery & Aesthetics [facility] [address] [place] [address] Conor Venegas PA-C [address] [place] [address] 06/19/2023 1:30 PM EDT Nurse Only Rheumatology [facility] [address] [facility] [place] [address] Pf, Nurse Rheum [facility] [place] [address] 06/27/2023 1:20 PM EDT Office Visit Family Practice [facility] 132 [facility] [place] [address] Nikunj Plascencia MD 132 [facility] [place] [address] 07/03/2023 2:00 PM EDT Office Visit Nephrology, [facility] [place] [address] [place] [address] Geovanni Linder MD [address] [place] [address] 07/13/2023 2:30 PM EDT Office Visit Pharmacy, [facility] 132 [place] [address] [facility] [address] [place] [address] 09/27/2023 8:30 AM EDT Appointment Radiology, [address] [address] 09/27/2023 9:30 AM EDT Office Visit Urology, [place] [address] [place] [address] Luis Manuel Sandy MD [facility] [place] [address] 12/20/2023 2:30 PM EDT Imaging Radiology, [address] [place] [address] 12/20/2023 3:20 PM EDT Office Visit Rheumatology [place] [address] [place] [address] John Yoder MD [facility] [employer] [place] [address] Scheduled Procedures Name Priority Associated Diagnoses Date/Ti [...] D LEVEL ONCE IN A LIFETIME-USE SMARTSET# [id number] Completed 06/10/2022, 05/28/2021, 06/20/2020, Additional history exists [...] this encounter Medical Devices Implanted Type Area Smoking Pipe Maker Device Identifier Shelf Expiration Date Model / Serial / Lot Kyphon Hv-R Bone Cement Implanted:Qty: 1 on 08/17/2016 by Michael Smith MD at [place] [facility] [place]A: Spine Thoracic 03/19/2019 C01A / C01A / [id number] Cement Bone Lv G 1119-140-01 - [id number] Implanted:Qty: 1 on 06/04/2018 by Duc Kimble MD at OR [facility] Right: Knee [employer] 11/19/2020-1119-1 40-01 / / [id number] Cement Bone Lv G 1119-140-01 - [id number] Implanted:Qty: 1 on 06/04/2018 by Duc Kimble MD at OR [facility] Right: Knee [employer] 06/19/2020-1119-1 40-01 / / [id number] Persona The Personlized Knee System Vivacit-E Highly Crosslinked Polyethylene All-Poly Patella Cemented Implanted:Qty: 1 on 06/04/2018 by Duc Kimble MD at OR [facility] Right: Knee [employer] 06/19/2022 42-5402-0 00-35 / / [id number] Tibia Stem 5 Deg Rt Size F - [id number] Implanted:Qty: 1 on 06/04/2018 by Duc Kimble MD at OR [facility] Right: Knee [employer] 10/21/2027 42-5320-0 75-02 / / [id number] Persona The Personalized Knee System Femur Cemented Cr Standard Implanted:Qty: 1 on 06/04/2018 by Duc Kimble MD at OR [facility] Right: Knee [employer] 11/20/2027 42-5026-0 62-02 / / [id number] Persona The Personalized Knee System Vivacit-E Highly Crosslinked Polyethylene Articular Surface Medial Congruent Implanted:Qty: 1 on 06/04/2018 by Duc Kimble MD at OR [facility] Right: Knee [employer] 11/19/2022 42-5221-0 07-12 / / [id number] Device Watchman Flx 24mm - [id number] Implanted:Qty: 1 on 10/06/2022 by Austin Penaloza MD at [facility] [place] [employer] : INTRV CARD [id number] 03/07/2025 [id number] 40 / / [id number] Device Watchman Flx 27mm - [id number] Implanted:Qty: 1 on 10/06/2022 by Austin Penaloza MD at [facility] [place] [employer] : INTRV CARD [id number] 08/07/2025 [id number] 70 / / [id number] documented as of this encounter Advance Directives [...] the patient have Health Care Power of Rubber Cutting Machine Tender? No Care Teams Director Of Research Center Relationship Specialty Start Date End Date Nikunj Plascencia MD [address] [place] [address] PCP - General Family Medicine 10/31/19 documented as of this encounter
--- OUTSIDE RECORDS SUMMARY | 2023-07-29 04:09 | External Medical Summary | Summary of Care ---
Author Name Unknown Organization [facility] Address [address] [place] [address] Phone [phone] Care Team Providers Care Caustic Room Operator Name Role Phone Nikunj Plascencia MD Primary Care Provider [phone] Reason for Visit * Reason Comments NEW PATIENT Left knee pain Encounter Details Date Type Department Care Team (Late st Contact Info) Description 05/17/2023 11:00 AM EDT Office Visit Wound Care, [facility] [address] [place] [address] PA-C [address] [employer] [facility] [place] [address] [place], [place] [id number] Primary osteoarthritis of left knee*; Chronic pain [...] Particles (Cymbalta) 0 06/20/2022 Active Saline Nasal [place] 0.65 % Nasal Solution ([place]) Q6H 0 06/06/2022 Active Clobetasol Propionate 0.05 [...] stone 03/21/2023 Food insecurity 01/02/2023 Overview: Per [facility] Protocol Presence of Watchman left atrial appendage closu re device 12/19/2022 PAF (paroxysmal atrial fibrillation) 08/17/2022 Overview: Added automatically from request for surgery [id number] Nasal septal perforation 06/13/2022 Overview: Per ENT [...] 140/90 12/12/201111/09 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 07/30/2018 Overview: [place] palsy Tinea 06/27/2011 07/30/2018 Mixed urge and stress incontinence 12/15/2008 10/08/2019 ADVANCE DIRECTIVE INFORMATION 06/17/2004 10/08/2019 documented as of this encounter (statuses as of 05/17/2023) Immunizations Name Administration Dates Next Due COVID-19 mRNA, LNP-s, No Pre serve, 2-Dose Series ([employer]) 10/05/2020,09/14/2020 Covid-19, Mrna, Lnp-s, Pf, B ivalent, 30 Mcg, IM, 12 yrs and above ([employer]) 05/26/2022 Pneumococcal Conjugate Vacc, 13 Valent (Prevnar) 05/30/2016 Pneumococcal Conjugate Vacci ne, 20-valent ([id number]) 04/03/2023 Seasonal Influenza Virus Vac cine, Unspecified [...] Progress Notes * Robert Lane PA-C - 05/17/2023 11:04 AM EDT [facility] PROGRESS NOTE Name: Caroline Paulino Date: 05/17/2023 Time: 11:04 AM Diagnosis: Primary osteoarthritis of left knee. Chronic pain of left knee. History: Caroline is a very pleasant 68 year old female who presents for Iovera nerve ablation treatment for the left knee today for treatment of her primary osteoarthritis and chronic pain. She previously described left knee pain on the order of several years which has become progressively worse, andhas been refractory to several more conservative treatment measures to include activity modification, formal physical therapy, bracing, corticosteroid injection. She was deemed to be a potentially favorable candidate for Iovera nerve ablation due to her failure of the more conservative treatments as well as her lack of candidacy for joint replacement due to BMI and other comorbidities. Iovera proc edure was discussed previously, and patient was preferable and motivated to proceed with such treatment today. Physical exam: Left knee: GAIT: antalgic, uses a cane Left Lower Extremity KNEE: no gross lesions or skin abnormalities; valgus alignment; tenderness to palpation at patella and medial joint line; warm to touch; pain with extension, pain with flexion; 5/5 knee extension; special tests not done Radiographs: Previous radiographs of the left knee demonstrated severe osteoarthritis with ursz-ev-uzzw articulation, osteophytosis, and lateral tibial translation. Assessment: Left knee DJD. PROCEDURE NOTE: I have provided a significant and separately identifiable visit with today's procedure because the decision to perform the procedure was complex due to evaluation of multiple potential treatment options, including medications, home exercises, PT, weight loss, injections or surgical intervention. Consent The Iovera treatment was explained. [place] on the Iovera system are inserted through the skin where the nerve is being treated. Inside the skin a small ice ball is formed at the tip of the needle. Patients may feel pressure, cold, warmth and/or tingling. With all procedures there may be benefits and a risk of side effects. Patients being treated with the Iovera system may experience certain reactions including, but not limited to, bruising, swelling, inflammation and/or redness, local pain and/or tenderness, and altered feeling at the site of treatment. Because all people are different, some patients pain will feel better right away, while for others there paying me only get a little better or not at all. Results may vary and can be affected by several things including the status of the overall health, the nerve anatomy, and the cause or causes ofpain. Patients may need more than one treatment. As with any medical treatment, patients may have side effects. These can include, but are not limited to, damage to the skin from being exposed to the cold, darkening or lightening of the skin, and dimples in the skin in the area being treated. Outside the areas of treatment, muscles may not work or move normally. Procedure Left knee Patient was placed in supine position. The patient's leg was laid straight and flat. Patient's skinwas shaved if necessary. Patient's skin was cleansed using isopropyl alcohol on the treatment lines. Target Nerves were identified using anatomical landmarks. Measurements were obtained and a treatment line was drawn for the anterior femoral cutaneous nerve (AFCN, MFCN, LFCN) as follows: Marked center of the patella Measured from patella to inguinal crease; calculate 1/3 Starting at patella, measured the 1/3 calculation and marked Ian a dotted line on each side of the patella Connected the dotted lines, at the 1/3 saira Measurements were obtained and a treatment line was drawn for the infrapatellar saphenous nerves (ISN) as follows: Then marked the lower pole of the patella; drawing a line 5 cm medial of the patella The tibial tubercle was identified; marked the bottom of the tibial tubercle; ian a line 5 cm medial Connected the two lines Patient's skin was anesthetized using 7 mL of 1% lidocaine. After the anesthetic was administered, the Iovera 309 Smart tip cryoneurolysis needle was inserted into AFCN, MFCN, LFNC, and the treatment was initiated. At the termination of each treatment cycle, the needle was removed. This was repeated a total of 13 times. At the termination of the treatment, the cryoneurolysis needle was removed. Attention was then directed to the 2 branches of the ISN. Patient's skin was anesthetized using 5 mL of 1% lidocaine. After the anesthetic was administered, the Iovera 309 Smart tip cryoneurolysis needle was inserted into the ISN treatment area and the treatment was initiated. At the termination of each treatment cycle, the needle was removed. This was repeated a total of 10 times. Patient's skin was cleansed, and the treatment site was covered with a bandage. Patient tolerated procedure well. The patient was instructed to stand and mobilize the knee joint. Post treatment assessment performed. - Follow-up: 1 month Telephonic - All questions answered today. Roladno De León DO This chart was completed in part utilizing [employer] Speech Voice Recognition Software. Grammatical errors, random [...] documented in this encounter Nursing Notes * Latrice Rodgers, RN - 05/17/2023 11:13 AM EDT Here for iovera to left knee. Her most painful activity is going up and down stairs. documented in this encounter Plan of Treatment Upcoming Encounters Date Type Department Care Team (Late st Contact Info) Description 05/19/2023 1:30 PM EDT Office Visit Cardiology, [facility] [address] [place] [address] Lila Burger CRNP [address] [place] [address] 05/24/2023 2:00 PM EDT Office Visit Podiatry [facility] [address] [place] [address] Eveline Layne DPM [address] [place] [address] 05/25/2023 10:00 AM EDT Procedure Only Urology, [place] [address] [place] [address] Luis Manuel Sandy MD [address] [place] [address] 06/07/2023 2:30 PM EDT Office Visit Dermatology [facility] [address] [place] [address] Cyril Borges MD [address] [place] [address] 06/14/2023 1:00 PM EDT Office Visit Cosmetic Surgery & Aesthetics [facility] [address] [place] [address] Conor Venegas PA-C [address] [place] [address] 06/19/2023 1:30 PM EDT Nurse Only Rheumatology [facility] [address] [facility] [place] [address] Pf, Nurse Rheum [facility]0 [facility] [place] [address] 06/22/2023 12:30 PM EDT Telemedicine Orthopaedics [facility] 132 [place] [address] PA-C [address] [place] [address] [place] [address] 06/27/2023 1:20 PM EDT Office Visit Family Practice [facility] [address] [place] [address] Nikunj Plascencia MD 132 [facility] [address] 07/03/2023 2:00 PM EDT Office Visit Nephrology, [facility] [address] [place] [address] Geovanni Linder MD [address] [place] [address] 07/13/2023 2:30 PM EDT Office Visit Pharmacy, [facility] 132 [facility] [place] [address] [facility] [address] [facility] [place] [address] 09/27/2023 8:30 AM EDT Appointment Radiology, [place] [address] [place] [address] 09/27/2023 9:30 AM EDT Office Visit Urology, [place] [address] [place] [address] Luis Manuel Sandy MD [address] [place] [address] 12/20/2023 2:30 PM EDT Imaging Radiology, [address] [place] [address] 12/20/2023 3:20 PM EDT Office Visit Rheumatology [address] [place] [address] John Yoder MD [address] [place] [address] [place] [address] Scheduled Procedures Name Priority Associated Diagnoses Date/Ti [...] D LEVEL ONCE IN A LIFETIME-USE SMARTSET# 29447 Completed 06/10/2022, 05/28/2021, 06/20/2020, Additional history exists [...] this encounter Medical Devices Implanted Type Area Activity Coordinator Device Identifier Shelf Expiration Date Model / Serial / Lot Kyphon Hv-R Bone Cement Implanted:Qty: 1 on 08/17/2016 by Michael Smith MD at [place] [facility] N/A: Spine Thoracic 03/19/2019 C01A / C01A / [id number] Cement Bone Lv G 1119-140-01 - [id number] Implanted:Qty: 1 on 06/04/2018 by Duc Kimble MD at OR [facility] Right: Knee [employer] 11/19/2020-1119-1 40-01 / / [id number] Cement Bone Lv G 1119-140-01 - [id number] Implanted:Qty: 1 on 06/04/2018 by Duc Kimble MD at OR [facility] Right: Knee [employer] 06/19/20201119-1 40- / / [id number] Persona The Personlized Knee System Vivacit-E Highly Crosslinked Polyethylene All-Poly Patella Cemented Implanted:Qty: 1 on 06/04/2018 by Duc Kimble MD at OR [facility] Right: Knee [employer] 06/19/2022 42-5402-0 00-35 / / [id number] Tibia Stem 5 Deg Rt Size F - [id number] Implanted:Qty: 1 on 06/04/2018 by Duc Kimble MD at OR [facility] Right: Knee [employer] 10/21/2027 42-5320-0 75-02 / / [id number] Persona The Personalized Knee System Femur Cemented Cr Standard Implanted:Qty: 1 on 06/04/2018 by Duc Kimble MD at OR [facility] Right: Knee [employer] 11/20/2027 42-5026-0 62-02 / / [id number] Persona The Personalized Knee System Vivacit-E Highly Crosslinked Polyethylene Articular Surface Medial Congruent Implanted:Qty: 1 on 06/04/2018 by Duc Kimble MD at OR [facility] Right: Knee [employer] 11/19/2022 42-5221-0 07-12 / / [id number] Device Watchman Flx 24mm - [id number] Implanted:Qty: 1 on 10/06/2022 by Austin Penaloza MD at [facility] [employer] : INTRV CARD [id number] 03/07/2025 [id number] 40 / / [id number] Device Watchman Flx 27mm - [id number] Implanted:Qty: 1 on 10/06/2022 by Austin Penaloza MD at [facility] [employer] : INTRV CARD [id number] 08/07/2025 [id number] 70 / / [id number] documented as of this encounter Visit Diagnoses [...] patient have Health Care Power of Food Processing Chemist? No Care Teams Caustic Room Operator Relationship Specialty Start Date End Date Nikunj Plascencia MD [address] [place] [address] PCP - General Family Medicine 10/31/19 documented as of this encounter
--- OUTSIDE RECORDS SUMMARY | 2023-07-29 04:09 | External Medical Summary | Summary of Care ---
Author Name Unknown Organization [facility] Address [address] [place] [address] Phone [phone] Care Team Providers Care Etl Bi Developer Name Role Phone Nikunj Plascencia MD Primary Care Provider [phone] Encounter Details Date Type Department Care Team (Late st Contact Info) Description 05/17/2023 Orders Only PATIENT PORTAL DO NOT DELETE THIS DEPT USED BY SOFY ARCHER [id number] Allergies Active Allergy Reactions Criticality Noted Date [...] Particles (Cymbalta) 0 06/20/2022 Active Saline Nasal [place] 0.65 % Nasal Solution ([place]) Q6H 0 06/06/2022 Active Clobetasol Propionate 0.05 [...] stone 03/21/2023 Food insecurity 01/02/2023 Overview: Per [facility] Protocol Presence of Watchman left atrial appendage closu re device 12/19/2022 PAF (paroxysmal atrial fibrillation) 08/17/2022 Overview: Added automatically from request for surgery [id number] Nasal septal perforation 06/13/2022 Overview: Per ENT [...] 140/90 12/12/201111/09 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 07/30/2018 Overview: [place] palsy Tinea 06/27/2011 07/30/2018 Mixed urge and stress incontinence 12/15/2008 10/08/2019 ADVANCE DIRECTIVE INFORMATION 06/17/2004 10/08/2019 documented as of this encounter (statuses as of 05/17/2023) Immunizations Name Administration Dates Next Due COVID-19 mRNA, LNP-s, No Pre serve, 2-Dose Series ([place]) 10/05/2020,09/14/2020 Covid-19, Mrna, Lnp-s, Pf, B ivalent, 30 Mcg, IM, 12 yrs and above ([place]) 05/26/2022 Pneumococcal Conjugate Vacc, 13 Valent (Prevnar) 05/30/2016 Pneumococcal Conjugate Vacci ne, 20-valent ([id number]) 04/03/2023 Seasonal Influenza Virus Vac cine, Unspecified [...] 11:00 AM EDT Office Visit Wound Care, [facility] 400 [facility] [place] [address] PA-C [address] [facility] [place] [address] [place] [address] 05/19/2023 1:30 PM EDT Office Visit Cardiology, [facility] 132 [facility] [place] [address] Lila Burger CRNP 400 [facility] [place] [address] 05/24/2023 2:00 PM EDT Office Visit Podiatry [facility] 132 [facility] [place] [address] Eveline Layne, JAMAL [address] [place] [address] 05/25/2023 10:00 AM EDT Procedure Only Urology, [place] [address] [place] [address] Luis Manuel Sandy MD [address] [place] [address] 06/07/2023 2:30 PM EDT Office Visit Dermatology [facility] [address] [place] [address] Cyril Borges MD [address] [place] [address] 06/14/2023 1:00 PM EDT Office Visit Cosmetic Surgery & Aesthetics [facility] [address] [place] [address] Conor Venegas PA-C [address] [place] [address] 06/19/2023 1:30 PM EDT Nurse Only Rheumatology [place] [address] [place] [address] Pf, Nurse Rheum [facility]0 [place] [address] 06/27/2023 1:20 PM EDT Office Visit Family Practice [facility] 132 [facility] [place] [address] Nikunj Plascencia MD 132 [facility] [place] [address] 07/03/2023 2:00 PM EDT Office Visit Nephrology, [place] [address] [place] [address] Geovanni Linder MD [address] [place] [address] 07/13/2023 2:30 PM EDT Office Visit Pharmacy, [facility] [address] [place] [address] [facility] [address] [place] [address] 09/27/2023 8:30 AM EDT Appointment Radiology, [address] [address] 09/27/2023 9:30 AM EDT Office Visit Urology, [address] [address] Luis Manuel Sandy MD [address] [place] [address] 12/20/2023 2:30 PM EDT Imaging Radiology, [address] [place] [address] 12/20/2023 3:20 PM EDT Office Visit Rheumatology [address] [place] [address] John Yoder MD [address] [place] [address] [place], [place] [address] Scheduled Procedures Name Priority Associated Diagnoses Date/Ti [...] D LEVEL ONCE IN A LIFETIME-USE SMARTSET# 52560 Completed 06/10/2022, 05/28/2021, 06/20/2020, Additional history exists [...] encounter Medical Devices Implanted Type Area Quality Intern Device Identifier Shelf Expiration Date Model / Serial / Lot Kyphon Hv-R Bone Cement Implanted:Qty: 1 on 08/17/2016 by Michael Smith MD at [place] [facility] N/A: Spine Thoracic 03/19/2019 C01A / C01A / [id number] Cement Bone Lv G 1119-140-01 - [id number] Implanted:Qty: 1 on 06/04/2018 by Duc Kimble MD at OR [facility] Right: Knee [employer] 11/19/20201119-1 40-01 / / [id number] Cement Bone Lv G 1119-140-01 - [id number] Implanted:Qty: 1 on 06/04/2018 by Duc Kimble MD at OR [facility] Right: Knee [employer] 06/19/2020- 40-01 / / [id number] Persona The Personlized Knee System Vivacit-E Highly Crosslinked Polyethylene All-Poly Patella Cemented Implanted:Qty: 1 on 06/04/2018 by Duc Kimble MD at OR [facility] Right: Knee [employer] 06/19/2022 42-5402-0 00-35 / / [id number] Tibia Stem 5 Deg Rt Size F - [id number] Implanted:Qty: 1 on 06/04/2018 by Duc Kimble MD at OR [facility] Right: Knee [employer] 10/21/2027 42-5320-0 75-02 / / [id number] Persona The Personalized Knee System Femur Cemented Cr Standard Implanted:Qty: 1 on 06/04/2018 by Duc Kimble MD at OR [facility] Right: Knee [employer] 11/20/2027 42-5026-0 62-02 / / [id number] Persona The Personalized Knee System Vivacit-E Highly Crosslinked Polyethylene Articular Surface Medial Congruent Implanted:Qty: 1 on 06/04/2018 by Duc Kimble MD at OR [facility] Right: Knee [employer] 11/19/2022 42-5221-0 07-12 / [id number] Device Watchman Flx 24mm - [id number] Implanted:Qty: 1 on 10/06/2022 by Austin Penaloza MD at [facility] [employer] : INTRV CARD [id number] 03/07/2025 [id number] 40 / / [id number] Device Watchman Flx 27mm - [id number] Implanted:Qty: 1 on 10/06/2022 by Austin Penaloza MD at [facility] [employer] : INTRV CARD [id number] 08/07/2025 [id number] 70 / / [id number] documented as of this encounter Advance Directives [...] the patient have Health Care Power of Fleet Administrator? No Care Teams Etl Bi Developer Relationship Specialty Start Date End Date Nikunj Plascencia MD [address] [place] [address] PCP - General Family Medicine 10/31/19 documented as of this encounter
--- OUTSIDE RECORDS SUMMARY | 2023-07-29 04:09 | External Medical Summary | Summary of Care ---
Author Name Unknown Organization [facility] Address [address] [place] [address] Phone [phone] Care Team Providers Care Rug Renovator Name Role Phone Nikunj Plascencia MD Primary Care Provider [phone] Reason for Visit * Reason Onset Date Comments Precert Approved 05/11/2023 Iovera Encounter Details Date Type Department Care Team (Late st Contact Info) Description 05/11/[address], [address], [place] [address] [place], [place] [id number] Alpesh De León, DO 132 [facility] [place] [address] Precert Approved (Iovera) Allergies Active Allergy Reactions Criticality Noted Date Comments Egg Shells Nausea/vomiting Medium 06/16/2018 Other reaction(s): GI SYMPTOMS Egg Yolk High 11/29/2019 Other reaction(s): GI upset Ibuprofen Other (Please comment) Medium 07/30/2010 Stomach upset Morphine Edema face/lips/tongue High 08/28/2021 Other reaction(s): LEGS SWELL documented as of this encounter (statuses as of 05/11/2023) Medications Medication Sig Dispensed Refills Start Date [...] Particles (Cymbalta) 0 06/20/2022 Active Saline Nasal [place] 0.65 % Nasal Solution ([place]) Q6H 0 06/06/2022 Active Clobetasol Propionate [...] before bedtime. 21 Tablet 0 12/14/2022 Active Clopidogrel Bisulfate 75 MG Oral Tablet (pLAVix) Take 1 Tablet by mouth in the morning. 100 Tablet 1 12/14/2022 Active Pregabalin 150 MG Oral Capsule [...] TWICE DAILY 180 Tablet 3 05/08/2023 Active Hospital, Clinic, or Other Facility Administered Medication Ordered Dose Route Frequency Start Date End Date Status atropine sulfate inj 0.4 mgIndications:Chest pain, unspecified type 0.4 mg IV PUSH PRN 01/29/2021 Active documented as of this encounter (statuses as of 05/11/2023) Active Problems Problem Noted Date Diagnosed Date Renal stone 03/21/2023 Food insecurity 01/02/2023 Overview: Per [facility] Protocol Presence of Watchman left atrial appendage closu re device 12/19/2022 PAF (paroxysmal atrial fibrillation) 08/17/2022 Overview: Added automatically from request for surgery [id number] Nasal septal perforation 06/13/2022 Overview: Per ENT [...] as of this encounter (statuses as of 05/11/2023) Resolved Problems Problem Noted Date Diagnosed Date [...] 140/90 12/12/201111/09 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 07/30/2018 Overview: [place] palsy Tinea 06/27/2011 07/30/2018 Mixed urge and stress incontinence 12/15/2008 10/08/2019 ADVANCE DIRECTIVE INFORMATION 06/17/2004 10/08/2019 documented as of this encounter (statuses as of 05/11/2023) Immunizations Name Administration Dates Next Due COVID-19 mRNA, LNP-s, No Pre serve, 2-Dose Series (LiveLoop) 10/05/2020,09/14/2020 Covid-19, Mrna, Lnp-s, Pf, B ivalent, 30 Mcg, IM, 12 yrs and above (LiveLoop) 05/26/2022 Pneumococcal Conjugate Vacc, 13 Valent (Prevnar) 05/30/2016 Pneumococcal Conjugate Vacci ne, 20-valent ([id number]) 04/03/2023 Seasonal Influenza Virus Vac cine, Unspecified [...] Telephone Encounter - Michel Charles LPN - 05/11/2023 3:54 PM EDT Called placed to [facility];d for P/A for Iovera. No auth needed. Ref#[id number] documented in this encounter Plan of Treatment Upcoming Encounters Date Type Department Care Team (Late st Contact Info) Description 05/16/2023 1:30 PM EDT Cardiac Studies Cardiac Studies, [address] [place] [address] 05/17/2023 11:00 AM EDT Office Visit Wound Care, [facility] [address] [place] [address] PA-C [address] [address] 05/19/2023 1:30 PM EDT Office Visit Cardiology, [facility] [address] [place] [address] Lila Burger CRNP [address] [place] [address] 05/24/2023 2:00 PM EDT Office Visit Podiatry [facility] [address] [place] [address] Eveline Layne, DPM [address] [place] [address] 05/25/2023 9:30 AM EDT Appointment Radiology, [address] [id number] 05/25/2023 10:00 AM EDT Procedure Only Urology, [place] [address] [place] [address] Luis Manuel Sandy MD [address] [place] [address] 06/07/2023 2:30 PM EDT Office Visit Dermatology [facility] [address] [place] [address] Cyril Borges MD [address] [place] [address] 06/14/2023 1:00 PM EDT Office Visit Cosmetic Surgery & Aesthetics [facility] [address] [place], [place] [phone] Conor Venegas PA-C [address] [place] [address] 06/19/2023 1:30 PM EDT Nurse Only Rheumatology [place] [address] [facility] [place] [address] Pf, Nurse Rheum [facility]0 [facility] [place] [address] 06/27/2023 1:20 PM EDT Office Visit Family Practice [facility] [address] [place] [address] Nikunj Plascencia MD [address] [place] [address] 07/03/2023 2:00 PM EDT Office Visit Nephrology, [facility] [address] [place] [address] Geovanni Linder MD [address] [place] [address] 07/13/2023 2:30 PM EDT Office Visit Pharmacy, [facility] [address] [place] [address] [facility] [address] [place] [address] 09/27/2023 8:30 AM EDT Appointment Radiology, [place] [address] [place] [address] 09/27/2023 9:30 AM EDT Office Visit Urology, [place] [address] [place] [address] Luis Manuel Sandy MD [address] [place] [address] 12/20/2023 2:30 PM EDT Imaging Radiology, [place] [address] [facility] [place] [address] 12/20/2023 3:20 PM EDT Office Visit Rheumatology [facility] [address] [facility] [place] [address] John Yoder MD [address] [place] [address] Scheduled Procedures Name Priority Associated Diagnoses Date/Ti [...] D LEVEL ONCE IN A LIFETIME-USE SMARTSET# 26930 Completed 06/10/2022, 05/28/2021, 06/20/2020, Additional history exists [...] this encounter Medical Devices Implanted Type Area Furnace Keeper Device Identifier Shelf Expiration Date Model / Serial / Lot Kyphon Hv-R Bone Cement Implanted:Qty: 1 on 08/17/2016 [place] [facility] [place] Spine Thoracic 03/19/2019 C01A / C01A / [id number] Cement Bone Lv G 1119-140-01 - [id number] Implanted:Qty: 1 on 06/04/2018 by Duc Kimble MD at OR [facility] Right: Knee [employer] 11/19/2020-1119-1 40- / / [id number] Cement Bone Lv G 1119-140-01 - [id number] Implanted:Qty: 1 on 06/04/2018 by Duc Kimble MD at OR [facility] Right: Knee [employer] 06/19/2020-1119-1 40- / / [id number] Persona The Personlized Knee System Vivacit-E Highly Crosslinked Polyethylene All-Poly Patella Cemented Implanted:Qty: 1 on 06/04/2018 by Duc Kimble MD at OR [facility] Right: Knee [employer] 06/19/2022 42-5402-0 00-35 / / [id number] Tibia Stem 5 Deg Rt Size F - [id number] Implanted:Qty: 1 on 06/04/2018 by Duc Kimble MD at OR [facility] Right: Knee [employer] 10/21/2027 42-5320-0 75-02 / / [id number] Persona The Personalized Knee System Femur Cemented Cr Standard Implanted:Qty: 1 on 06/04/2018 by Duc Kimble MD at OR [facility] Right: Knee [employer] 11/20/2027 42-5026-0 62-02 / / [id number] Persona The Personalized Knee System Vivacit-E Highly Crosslinked Polyethylene Articular Surface Medial Congruent Implanted:Qty: 1 on 06/04/2018 by Duc Kimble MD at OR [facility] Right: Knee [employer] 11/19/2022 42-5221-0 07-12 / / [id number] Device Watchman Flx 24mm - [id number] Implanted:Qty: 1 on 10/06/2022 by Austin Penaloza [place] at [facility] [place] [employer] : INTRV CARD [id number] 03/07/2025 [id number] 40 / / [id number] Device Watchman Flx 27mm - [id number] Implanted:Qty: 1 on 10/06/2022 by Austin Penaloza MD [place] [facility] [place] [employer] : INTRV CARD [id number] 08/07/2025 [id number] 70 / / [id number] documented as of this encounter Advance Directives [...] the patient have Health Care Power of Site Inspector? No Care Teams Rug Renovator Relationship Specialty Start Date End Date Nikunj Plascencia MD [address] [place] [address] PCP - General Family Medicine 10/31/19 documented as of this encounter
--- OUTSIDE RECORDS SUMMARY | 2023-07-29 04:09 | External Medical Summary | Summary of Care ---
Author Name Unknown Organization [facility] Address [address] [place] [address] Phone [phone] Care Team Providers Care Inventory Audit Clerk Name Role Phone Nikunj Plascencia MD Primary Care Provider [phone] Encounter Details Date Type Department Care Team (Late st Contact Info) Description 05/17/2023 New Patient Triage ([place] USE ONLY) Cardiology [facility] [address] [place] [address] Mireille Yadav, RN Allergies Active [...] Particles (Cymbalta) 0 06/20/2022 Active Saline Nasal [place] 0.65 % Nasal Solution ([place]) Q6H 0 06/06/2022 Active Clobetasol Propionate 0.05 [...] Overview: Added automatically from request for surgery [id number] Nasal septal perforation 06/13/2022 Overview: Per ENT [...] 140/90 12/12/201111/09 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 07/30/2018 Overview: [place] palsy Tinea 06/27/2011 07/30/2018 Mixed urge and stress incontinence 12/15/2008 10/08/2019 ADVANCE DIRECTIVE INFORMATION 06/17/2004 10/08/2019 documented as of this encounter (statuses as of 05/17/2023) Immunizations Name Administration Dates Next Due COVID-19 mRNA, LNP-s, No Pre serve, 2-Dose Series ([employer]) 10/05/2020,09/14/2020 Covid-19, Mrna, Lnp-s, Pf, B ivalent, 30 Mcg, IM, 12 yrs and above (Pfizer) 05/26/2022 Pneumococcal Conjugate Vacc, 13 Valent (Prevnar) 05/30/2016 Pneumococcal Conjugate Vacci ne, 20-valent ([id number]) 04/03/2023 Seasonal Influenza Virus Vac cine, Unspecified [...] referral?: Aortic Stenosis Enter order ID here: [id number] Specialty specific documentation: Cardiology Structural Heart Please see multidisciplinary follow up note [facility] L[facility]pez Interventional Valve Nurse Navigator documented in this encounter Plan of Treatment Upcoming Encounters Date Type Department Care Team (Late st Contact Info) Description 05/19/2023 1:30 PM EDT Office Visit Cardiology, [facility] 132 [facility] [place] [id number] Lila Burger CRNP [address] [place] [address] [place] [address] 05/24/2023 2:00 PM EDT Office Visit Podiatry [facility] 132 [facility] [place] [address] Eveline Layne, DPM [address] [place] [address] 05/25/2023 10:00 AM EDT Procedure Only Urology, [place] [address] [place] [address] Luis Manuel Sandy MD [address] [place] [address] 06/07/2023 2:30 PM EDT Office Visit Dermatology [facility] [address] [place] [address] Cyril Borges MD [address] [place] [address] 06/14/2023 1:00 PM EDT Office Visit Cosmetic Surgery & Aesthetics [facility] [address] [place] [address] Conor Venegas PA-C [address] [place] [address] 06/19/2023 1:30 PM EDT Nurse Only Rheumatology [place] [address] [facility] [place] [address] Pf, Nurse Rheum [facility]0 [facility] [place] [address] 06/27/2023 1:20 PM EDT Office Visit Family Practice [facility] 132 [facility] [address] Nikunj Plascencia MD 132 [place] [address] 07/03/2023 2:00 PM EDT Office Visit Nephrology, [place] 200 [facility] [place], [place] [address] Geovanni Linder MD 200 [facility] [place], [place] [address] 07/13/2023 2:30 PM EDT Office Visit Pharmacy, [facility] [address] [place] [address] [facility] [address] [place] [address] 09/27/2023 8:30 AM EDT Appointment Radiology, [address] [address] 09/27/2023 9:30 AM EDT Office Visit Urology, [place] [address] [place] [address] Luis Manuel Sandy MD [address] [place] [address] 12/20/2023 2:30 PM EDT Imaging Radiology, [address] [place] [address] 12/20/2023 3:20 PM EDT Office Visit Rheumatology [address] [place] [address] John Yoder MD [address] [place] [address] [place], [place] [address] Scheduled Orders Name Type Priority Associated Diagnoses [...] D LEVEL ONCE IN A LIFETIME-USE SMARTSET# 95618 Completed 06/10/2022, 05/28/2021, 06/20/2020, Additional history exists [...] this encounter Medical Devices Implanted Type Area Youth Care Specialist Device Identifier Shelf Expiration Date Model / Serial / Lot Kyphon Hv-R Bone Cement Implanted:Qty: 1 on 08/17/2016 [place] Smith [place] [facility] [place] Spine Thoracic 03/19/2019 C01A / C01A / [id number] Cement Bone Lv G 1119-140-01 - [id number] Implanted:Qty: 1 on 06/04/2018 by Duc Kimble MD at OR [facility] Right: Knee [employer] 11/19/20201119-1 40- / / [id number] Cement Bone Lv G 1119-140-01 - [id number] Implanted:Qty: 1 on 06/04/2018 by Duc Kimble MD at OR [facility] Right: Knee [employer] 06/19/20201119-1 40- / / [id number] Persona The Personlized Knee System Vivacit-E Highly Crosslinked Polyethylene All-Poly Patella Cemented Implanted:Qty: 1 on 06/04/2018 by Duc Kimble MD at OR [facility] Right: [employer]nee [employer] 06/19/2022 42-5402-0 00-35 / / [id number] Tibia Stem 5 Deg Rt Size F - [id number] Implanted:Qty: 1 on 06/04/2018 by Duc Kimble MD at OR [facility] Right: Knee [employer] 10/21/2027 42-5320-0 75-02 / / [id number] Persona The Personalized Knee System Femur Cemented Cr Standard Implanted:Qty: 1 on 06/04/2018 by Duc Kimble MD at OR [facility] Right: [employer]nee [employer] 11/20/2027 42-5026-0 62-02 / / [id number] Persona The Personalized Knee System Vivacit-E Highly Crosslinked Polyethylene Articular Surface Medial Congruent Implanted:Qty: 1 on 06/04/2018 by Duc Kimble MD at OR [facility] Right: [employer]nee [employer] 11/19/2022 42-5221-0 07-12 / / [id number] Device Watchman Flx 24mm - [id number] Implanted:Qty: 1 on 10/06/2022 by [place] Penaloza MD [place] [facility] [place] [employer] : INTRV CARD [id number] 03/07/2025 [id number] 40 / / [id number] Device Watchman Flx 27mm - [id number] Implanted:Qty: 1 on 10/06/2022 by Austin Penaloza MD [place] [facility] [place] [employer] : INTRV CARD [id number] 08/07/2025 [id number] 70 / / [id number] documented as of this encounter Visit Diagnoses [...] the patient have Health Care Power of Neurophysiological Technician? No Care Teams Inventory Audit Clerk Relationship Specialty Start Date End Date Nikunj Plascencia MD [address] [place] [address] PCP - General Family Medicine 10/31/19 documented as of this encounter
--- OUTSIDE RECORDS SUMMARY | 2023-07-29 04:10 | External Medical Summary | Summary of Care ---
Author Name Unknown Organization [facility] Address [address] [place] [address] Phone [phone] Care Team Providers Care Logistics/Shipper Name Role Phone Lambert Acuña MD Primary Care Provider [phone] Reason for Visit * Reason Comments eRx-Medication Refill Encounter Details Date Type Department Care Team (Late st Contact Info) Description 05/06/2023 Refill Pharmacy, [facility] [address] [facility] [place] [address] Kendrick King MD [address] [facility] [place] [address] Allergies Active Allergy Reactions Criticality Noted Date Comments Egg Shells Nausea/vomiting Medium 06/16/2018 Other reaction(s): GI SYMPTOMS Egg Yolk High 11/29/2019 Other reaction(s): GI upset Ibuprofen Other (Please comment) Medium 07/30/2010 Stomach upset Morphine Edema face/lips/tongue High 08/28/2021 Other reaction(s): LEGS SWELL documented as of this encounter (statuses as of 05/08/2023) Medications Medication Sig Dispensed Refills Start Date [...] 15 minutes. 25 Tablet 11 2 Active Additional Information Patient not taking.Informant: Patient, [...] Particles (Cymbalta) 0 3 Active Saline Nasal Hurley 0.65 % Nasal Solution (Winigan) Q6H 0 3 Active Clobetasol Propionate 0.05 [...] before bedtime. 21 Tablet 0 3 Active Clopidogrel Bisulfate 75 MG Oral Tablet (pLAVix) Take 1 Tablet by mouth in the morning. 100 Tablet 1 3 Active Pregabalin 150 MG Oral Capsule [...] the morning. 90 Capsule 3 4 Active oxyCODONE-Acetamino phen 5-325 MG Oral Tablet (Percocet) Take 1 Tablet by mouth every 4 hours as needed for Pain, Moderate. 5 Tablet 0 4 Active Memantine HCl 5 MG Oral Tablet (Namenda) TAKE 1 TABLET DAILY FOR 1 WEEK AND THEN 1 TABLET TWICE DAILY 180 Tablet 3 4 Active Memantine HCl 5 MG Oral Tablet (Namenda) Take 1 tablet daily for 1 week and then 1 tablet twice daily 180 Tablet 3 3 05/08/19 24 Discontinued Hospital, Clinic, or Other Facility Administered Medication Ordered Dose Route Frequency Start Date End Date Status atropine sulfate inj 0.4 mgIndications:Chest pain, unspecified type 0.4 mg IV PUSH PRN 01/29/2021 Active documented as of this encounter (statuses as of 05/08/2023) Active Problems Problem Noted Date Diagnosed Date Renal stone 03/21/2023 Food insecurity 01/02/2023 Overview: Per [facility] Protocol Presence of Watchman left atrial appendage closu re device 12/19/2022 PAF (paroxysmal atrial fibrillation) 08/17/2022 Overview: Added automatically from request for surgery [id number] Nasal septal perforation 06/13/2022 Overview: Per ENT [...] as of this encounter (statuses as of 05/08/2023) Resolved Problems Problem Noted Date Diagnosed Date [...] 140/90 12/12/201111/09 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 07/30/2018 Overview: Glasco palsy Tinea 06/27/2011 07/30/2018 Mixed urge and stress incontinence 12/15/2008 10/08/2019 ADVANCE DIRECTIVE INFORMATION 06/17/2004 10/08/2019 documented as of this encounter (statuses as of 05/08/2023) Immunizations Name Administration Dates Next Due COVID-19 mRNA, LNP-s, No Pre serve, 2-Dose Series (CouponCabin) 10/05/2020,09/14/2020 Covid-19, Mrna, Lnp-s, Pf, B ivalent, 30 Mcg, IM, 12 yrs and above (Pfizer) 05/26/2022 Pneumococcal Conjugate Vacc, 13 Valent (Prevnar) 05/30/2016 Pneumococcal Conjugate Vacci ne, 20-valent ([id number]) 04/03/2023 Seasonal Influenza Virus Vac cine, Unspecified [...] Telephone Encounter - Lambert Acuña MD - 05/08/2023 10:15 AM EDTSigned Prescriptions: Disp Refills Memantine HCl 5 MG Oral Tablet (Namenda) 180 Ta*3 Sig: TAKE 1 TABLET DAILY FOR 1 WEEK AND THEN 1 TABLET TWICE DAILY Authorizing Provider: LAMBERT ACUÑA * Telephone Encounter - Leah Villalobos LPN - 05/08/2023 10:04 AM EDTPending Prescriptions: Disp Refills Memantine HCl 5 MG Oral Tablet [Pharmacy M*180 Ta*3 Sig: Take 1 tablet daily for 1 week and then 1 tablet twice daily * Telephone Encounter - Leah Villalobos LPN - 05/08/2023 10:03 AM EDT Pending Prescriptions: Disp Refills Memantine HCl 5 MG Oral Tablet (Namenda) *180 Ta*3 Sig: TAKE 1 TABLET DAILY FOR 1 WEEK AND THEN 1 TABLET TWICE DAILY Last Visit: 04/13/2023 (in office), Visit date not found (telemedicine) Next Visit: 07/13/2023 Last date the medication was ordered: 02/23/22 Patient Active Problem List Diagnosis Code Irritable bowel syndrome with both constipation and diarrhea K58.2 HTN, goal below 130/80 I10 Stage 3b chronic kidney disease (CKD) ([facility]) N18.32 Morbid obesity ([facility]) E66.01 Spinal stenosis of lumbar region without neurogenic claudication M48.061 Gastroesophageal reflux disease without esophagitis K21.9 Senile osteoporosis M81.0 Bicuspid aortic valve Q23.1 Moderate aortic stenosis I35.0 Dyslipidemia E78.5 Chronic insomnia F51.04 Paroxysmal atrial flutter ([facility]) I48.92 Depression with anxiety F41.8 Controlled substance agreement terminated Z91.148 Migraine with aura and without status migrainosus, not intractable G43.109 Nasal septal perforation J34.89 PAF (paroxysmal atrial fibrillation) ([facility]) I48.0 Presence of Watchman left atrial appendage closure device Z95.818 Food insecurity Z59.41 Renal stone N20.0 Labs: Lab Results Component Value Date/Time CREATININE - [facility] 1.5 (H) 04/28/2023 11:06 AM CREATININE - [facility] 1.3 (H) 01/07/2020 11:40 AM CREATININE ADITI 87 03/19/2019 03:50 PM CREATININE ADITI - [facility] 104 10/21/2021 04:06 PM CREATININE, RANDOM URINE - [facility] 200 06/13/2022 03:39 PM CREATININE, RANDOM URINE - [facility] 94 01/08/2020 01:48 PM CREATININE-OUTSIDE LAB 1.21 (A) 12/23/2019 12:00 AM Lab Results Component Value Date/Time POTASSIUM - [facility] 5.0 04/28/2023 11:06 AM POTASSIUM - [facility] 4.9 01/07/2020 11:40 AM POTASSIUM-OUTSIDE LAB 3.9 12/23/2019 12:00 AM Lab Results Component Value Date/Time TSH - [facility] 2.37 01/11/2021 03:52 PM TSH - [facility] 2.99 12/06/2019 09:30 AM Lab Results Component Value Date/Time LDL CHOLESTEROL (CALCULATED) - [facility] 47 04/28/2023 11:06 AM LDL CHOLESTEROL (CALCULATED) - [facility] 34 03/31/2023 09:17 AM LDL CHOLESTEROL (CALCULATED) - [facility] 33 12/06/2019 09:30 AM LDL CHOLESTEROL (CALCULATED) - [facility] 36 04/08/2019 09:56 AM LDL CHOLESTEROL (DIRECT MEASURE) - [facility] NOT APPLICABLE 12/06/2019 09:30 AM LDL CHOLESTEROL (DIRECT MEASURE) - [facility] NOT APPLICABLE 04/08/2019 09:56 AM Lab Results Component Value Date/Time ALT - [facility] 14 03/31/2023 09:17 AM ALT - [facility] 9 (L) 12/06/2019 09:30 AM ALT-OUTSIDE LAB 17 11/13/2016 12:00 AM Hemoglobin AIC Results: Lab Results Component Value Date/Time HEMOGLOBIN A1C - [facility] 5.3 06/20/2020 01:23 PM HEMOGLOBIN A1C - [facility] 5.1 2018 12:11 PM HEMOGLOBIN A1C - [facility] 5.4 11/01/2016 03:04 PM HEMOGLOBIN A1C - [facility] 5.0 11/02/2015 03:13 PM documented in this encounter Plan of Treatment Upcoming Encounters Date Type Department Care Team (Late st Contact Info) Description 05/16/2023 1:30 PM EDT Cardiac Studies Cardiac Studies, [address] [address] 05/19/2023 1:30 PM EDT Office Visit Cardiology, [address] [address] Lila Burger CRNP [address] [place] [address] 05/24/2023 2:00 PM EDT Office Visit Podiatry [address] [address] Eveline Layne DPM [address] [place] [address] 05/25/2023 9:30 AM EDT Appointment Radiology, [address] [phone] 05/25/2023 10:00 AM EDT Procedure Only Urology, [address] [address] Luis Manuel Sandy MD [address] [place] [address] 06/07/2023 2:30 PM EDT Office Visit Dermatology [address] [address] Cyril Borges MD [address] [place] [address] 06/14/2023 1:00 PM EDT Office Visit Cosmetic Surgery & Aesthetics [address] [address] Conor Venegas PA-C [address] [place] [address] 06/19/2023 1:30 PM EDT Nurse Only Rheumat[place] [address] [facility] [place] [address] Pf, Nurse Rheum [facility] [place], [place] [address] 06/27/2023 1:20 PM EDT Office Visit Family Practice [facility] [address] [place] [address] Lambert Acuña MD [address] [place] [address] 07/03/2023 2:00 PM EDT Office Visit Nephrology, [facility] [address] [facility] [place] [address] Geovanni Linder MD [address] [place] [address] 07/13/2023 2:30 PM EDT Office Visit Pharmacy, [facility] [address] [place] [address] [facility] [address] [place] [address] 09/27/2023 8:30 AM EDT Appointment Radiology, [place] [address] [place] [address] 09/27/2023 9:30 AM EDT Office Visit Urology, [place] [address] [place] [address] Luis Manuel Sandy MD [address] [place] [address] 12/20/2023 2:30 PM EDT Imaging Radiology, [address] [place], [place] [address] 12/20/2023 3:20 PM EDT Office Visit Rheumatology [facility] [address] [place], [place] [address] John Yoder MD [address] [place] [address] Scheduled Procedures Name Priority Associated Diagnoses Date/Ti [...] D LEVEL ONCE IN A LIFETIME-USE SMARTSET# [id number] Completed 06/10/2022, 05/28/2021, 06/20/2020, Additional history exists [...] this encounter Medical Devices Implanted Type Area Loan Operations Specialist Device Identifier Shelf Expiration Date Model / Serial / Lot Kyphon Hv-R Bone Cement Implanted:Qty: 1 on 08/17/2016 by Michael Smith MD at OR [facility] N/A: Spine Thoracic 03/19/2019 C01A / C01A / [id number] Cement Bone Lv G 1119-140-01 - [id number] Implanted:Qty: 1 on 06/04/2018 by Duc Kimble MD at OR [facility] Right: Knee [employer] 11/19/2020-1119-1 40-01 / / [id number] Cement Bone Lv G 1119-140-01 - [id number] Implanted:Qty: 1 on 06/04/2018 by Duc Kimble MD at OR [facility] Right: Knee [employer] 06/19/2020-1119-1 40- / / [id number] Persona The Personlized Knee System Vivacit-E Highly Crosslinked Polyethylene All-Poly Patella Cemented Implanted:Qty: 1 on 06/04/2018 by Duc Kimble MD at OR [facility] Right: Knee [employer] 06/19/2022 42-5402-0 00-35 / / [id number] Tibia Stem 5 Deg Rt Size F - [id number] Implanted:Qty: 1 on 06/04/2018 by Duc Kimble MD at OR [facility] Right: Knee [employer] 10/21/2027 42-5320-0 75-02 / / [id number] Persona The Personalized Knee System Femur Cemented Cr Standard Implanted:Qty: 1 on 06/04/2018 by Duc Kimble MD at OR [facility] Right: Knee [employer] 11/20/2027 42-5026-0 62-02 / / [id number] Persona The Personalized Knee System Vivacit-E Highly Crosslinked Polyethylene Articular Surface Medial Congruent Implanted:Qty: 1 on 06/04/2018 by Duc Kimble MD at OR [facility] Right: Knee [employer] 11/19/2022 42-5221-0 07-12 / / [id number] Device Watchman Flx 24mm - [id number] Implanted:Qty: 1 on 10/06/2022 by Austin Penaloza MD at CARD[facility]S [facility] [employer] : INTRV CARD [id number] 03/07/2025 [id number] 40 / / [id number] Device Watchman Flx 27mm - [id number] Implanted:Qty: 1 on 10/06/2022 by Austin Penaloza MD at C[facility]S [facility] [employer] : INTRV CARD [id number] 08/07/2025 [id number] 70 / / [id number] documented as of this encounter Advance Directives [...] the patient have Health Care Power of Low Pressure Firer? No Care Teams Logistics/Shipper Relationship Specialty Start Date End Date Lambert Acuña MD [address] [place] [address] PCP - General Family Medicine 10/31/19 documented as of this encounter
--- OUTSIDE RECORDS SUMMARY | 2023-07-29 04:10 | External Medical Summary ---
Author Name Unknown Address Unknown Organization : Laboratory Report Ordering Provider Test Date Status DARYL RAYMOND 05/01/2023 12:39:31 Final Observation Date Value Abnormality Reference (Units ) Status Glucose Point of Care 05/01/2023 12:39:31 83 70-120 (mg/dL) Final Performing Location
--- OUTSIDE RECORDS SUMMARY | 2023-07-29 04:10 | External Medical Summary ---
Author Name Unknown Address Unknown Organization K0G:[facility]ATORY [facility] [address] - [address] [place] [address] Laboratory Report Ordering Provider Test Date Status MYAH LOPEZ 04/28/2023 11:06:38 Final Discharge Order Observation Date Value Abnormality Reference (Units ) Status BUN 04/28/2023 11:06:38 38 Above high normal 6-20 (mg/dL) Final Creatinine 04/28/2023 11:06:38 1.5 Above high normal 0.5-1.0 (mg/dL) Final Glomerular filtration rate/1.73 sq M.predicted [Volume Rate/Area] in Serum, Plasma or Blood by Creatinine-based formula (CKD-EPI) 04/28/2023 11:06:38 38 Below low normal >=60 (mL/min) Final eGFR is calculated based on the CKD-EPI 2020 equation SODIUM 04/28/2023 11:06:38 142 135-146 (m mol/L) Final Potassium 04/28/2023 11:06:38 5.0 3.5-5.1 (m mol/L) Final Cl 04/28/2023 11:06:38 108 Above high normal 98 -107 (mmol/L) Final CO2 04/28/2023 11:06:38 24 22-32 (mmo l/L) Final Anion gap 04/28/2023 11:06:38 10 7-15 (mmol /L) Final Glucose 04/28/2023 11:06:38 96 70-120 (mg /dL) Final Calcium 04/28/2023 11:06:38 9.2 8.4-10.2 ( mg/dL) Final Performing Location LAB[facility]ATORY [facility] [place] [address] - [address] [place] [address]
--- OUTSIDE RECORDS SUMMARY | 2023-07-29 04:10 | External Medical Summary ---
Author Name Unknown Address Unknown Organization K0G:[facility] [address] - [address] [place] [address] Laboratory Report Ordering Provider Test Date Status LALY TERRY 04/28/2023 11:06:38 Final Observation Date Value Abnormality Reference (Units ) Status SYNC LEUKOCYTES IN BLOOD BY AUTOMATED COUNT 04/28/2023 11:06:38 5.69 4.00-10.80 (K/uL) Final Segs 04/28/2023 11:06:38 42.4 40.0-75.0 (%) Final Lymphs % 04/28/2023 11:06:38 35.7 18.0-42.0 (%) Final Monos 04/28/2023 11:06:38 14.1 Above high normal 1.0-11.0 (%) Final Eosinophils 04/28/2023 11:06:38 6.9 Above high normal 0.0-6.0 (%) Final Basos 04/28/2023 11:06:38 0.9 0.0-2.0 (%) Final Absolute Segs 04/28/2023 11:06:38 2.42 1.80-7.70 (K/uL) Final Lymphs, absolute 04/28/2023 11:06:38 2.03 1.00-4.80 (K/ul) Final Monos, Abs 04/28/2023 11:06:38 0.80 0.00-1.10 (K/uL) Final Eos, Abs 04/28/2023 11:06:38 0.39 0.00-0.70 (K/uL) Final Basos, Abs 04/28/2023 11:06:38 0.05 0.00-0.20 (K/uL) Final Performing Location LAB[facility]ATORY [facility] [address] - [address] [place] [address]
--- OUTSIDE RECORDS SUMMARY | 2023-07-29 04:10 | External Medical Summary ---
Author Name Unknown Address Unknown Organization K01:[facility] - [address] [place] [address] Laboratory Report Ordering Provider Test Date Status ADELITA CALLES 04/28/2023 11:06:38 Final Observation Date Value Abnormality Reference (Units ) Status MYCODE SPECIMEN-SST 04/28/2023 11:06:38 Freezing of extracted DNA, whole blood and/or serum. Final Performing Location [facility] - [address] [place] [address]
--- OUTSIDE RECORDS SUMMARY | 2023-07-29 04:10 | External Medical Summary ---
Author Name Unknown Address Unknown Organization K01:LAB[facility]ATORY [facility] [address] [facility] [address] Laboratory Report Ordering Provider Test Date Status XIOMY VELIZ 04/17/2023 12:05:19 Final Observation Date Value Abnormality Reference (Units) Status Bacteria identified in Specimen by Culture 04/17/2023 12:05:19 No significant growth Final Test: Culture, Urine, Quanti tative
Specimen Source: Urine, Clean Catch
Specimen Type: Urine
Specimen Date: 04/17/2023 12:05 PM
Result Date: 04/18/2023 11:29 AM
Result Status: Final result
Resulting Lab: LABORATORY [facility]
[address]
[place] [id number]

CULTURE

No significant growth

null Performing Location LABORATORY [facility] - [address] [facility] [address]
--- OUTSIDE RECORDS SUMMARY | 2023-07-29 04:10 | External Medical Summary ---
Author Name Unknown Address Unknown Organization K[facility] - [address] [place] [address] Laboratory Report Ordering Provider Test Date Status LALY TERRY 04/28/2023 11:06:38 Final Observation Date Value Abnormality Reference (Units ) Status WBC, Total 04/28/2023 11:06:38 5.69 4.00-10.8 0 (K/uL) Final RBC 04/28/2023 11:06:38 3.35 3.85-5.15 (M/uL) Final Hemoglobin 04/28/2023 11:06:38 8.9 Below low normal 12 .0-15.3 (g/dL) Final HCT 04/28/2023 11:06:38 30.2 Below low normal 36. 0-45.2 (%) Final MCV 04/28/2023 11:06:38 90.1 81.5-97.5 (fL) Final MCH 04/28/2023 11:06:38 26.6 27.0-34.0 (pg) Final MCHC 04/28/2023 11:06:38 29.5 32.0-36.0 (g/dL) Final RDW 04/28/2023 11:06:38 15.6 11.5-15.5 (%) Final Platelets 04/28/2023 11:06:38 171 140-400 (K /uL) Final MPV 04/28/2023 11:06:38 11.2 6.6-11.1 ( fL) Final Performing Location LABORATORY [facility] [place] [address] [place] [address]
--- OUTSIDE RECORDS SUMMARY | 2023-07-29 04:10 | External Medical Summary | Summary of Care ---
Author Name Unknown Organization [facility] Address [address] [place] [address] Phone [phone] Care Team Providers Care Foreclosure Specialist Name Role Phone Nikunj Plascencia MD Primary Care Provider [phone] [phone] Reason for Visit * Reason Comments Outpatient Testing Encounter Details Date Type Department Care Team (Late st Contact Info) Description 04/28/2023 11:30 AM EST Laboratory Laboratory, [facility] [address] [place] [address] [facility] [address] [place] [address] Other iron deficiency anemia; Paroxysmal atrial fibrillation (HCC); Encounter for long-term (current) use of medications; PAF (paroxysmal atrial fibrillation) (HCC); Presence of Watchman left atrial appendage closure device; My[employer] Research Other*[id number] Allergies Active Allergy Reactions Criticality Noted Date Comments Egg Shells Nausea/vomiting Medium 06/16/2018 Other reaction(s): GI SYMPTOMS Egg Yolk High 11/29/2019 Other reaction(s): GI upset Ibuprofen Other (Please comment) Medium 07/30/2010 Stomach upset Morphine Edema face/lips/tongue High 08/28/2021 Other reaction(s): LEGS SWELL documented as of this encounter (statuses as of 04/28/2023) Medications Medication Sig Dispensed Refills Start Date [...] when flaring 100 g 0 12/28/2021 Active Memantine HCl 5 MG Oral Tablet (Namenda) Take 1 tablet daily for 1 week and then 1 tablet twice daily 180 Tablet 3 02/23/2022 Active diphenhydrAMINE HCl 25 MG Oral Tablet [...] Particles (Cymbalta) 0 06/20/2022 Active Saline Nasal [place] 0.65 % Nasal Solution ([place]) Q6H 0 06/06/2022 Active Clobetasol Propionate [...] 4 hours as needed for Pain, Moderate. 20 Tablet 0 04/12/2023 Active Hospital, Clinic, or Other Facility Administered Medication Ordered Dose Route Frequency Start Date End Date Status atropine sulfate inj 0.4 mgIndications:Chest pain, unspecified type 0.4 mg IV PUSH PRN 01/29/2021 Active documented as of this encounter (statuses as of 04/28/2023) Active Problems Problem Noted Date Diagnosed Date Renal stone 03/21/2023 Food insecurity 01/02/2023 Overview: Per [facility] Protocol Presence of Watchman left atrial appendage closu re device 12/19/2022 PAF (paroxysmal atrial fibrillation) 08/17/2022 Overview: Added automatically from request for surgery [id number] Nasal septal perforation 06/13/2022 Overview: Per ENT [...] as of this encounter (statuses as of 04/28/2023) Resolved Problems Problem Noted Date Diagnosed Date [...] 12/12/201111/09 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 07/30/2018 Overview: [place]uba flaquito Tinea 06/27/2011 07/30/2018 Mixed urge and stress incontinence 12/15/2008 10/08/2019 ADVANCE DIRECTIVE INFORMATION 06/17/2004 10/08/2019 documented as of this encounter (statuses as of 04/28/2023) Immunizations Name Administration Dates Next Due COVID-19 mRNA, LNP-s, No Pre serve, 2-Dose Series (Pfizer) 10/05/2020,09/14/2020 Covid-19, Mrna, Lnp-s, Pf, B ivalent, 30 Mcg, IM, 12 yrs and above (Pfizer) 05/26/2022 Pneumococcal Conjugate Vacc, 13 Valent (Prevnar) 05/30/2016 Pneumococcal Conjugate Vacci ne, 20-valent ([id number]) 04/03/2023 Seasonal Influenza Virus Vac cine, Unspecified [...] Department Care Team (Latest Contact Info) Description 05/01/2023 1:16 PM EDT Hospital Encounter [place] [facility] [address] [place] [address] Luis Manuel Sandy MD [address] [place] [address] 05/01/2023 1:16 PM EDT - 05/01/2023 2:52 PM EDT Surgery [place] [facility] OPERATING ROOM [facility] [address] [place] [address] Luis Manuel Sandy MD [address] [place] [address] CYSTOURETHROSCOPY URETEROSCOPY WITH LITHOTRIPSY AND STENT INSERTION 05/16/2023 1:30 PM EDT Cardiac Studies Cardiac Studies, [facility] [address] [place] [address] 05/19/2023 1:30 PM EDT Office Visit Cardiology, [facility] [address] [place] [address] Lila Burger CRNP [address] [place] [phone] 05/24/2023 2:00 PM EDT Office Visit Podiatry [facility] [address] [place] [address] Eveline Layne DPM [address] [place], [place] [phone] 05/25/2023 9:30 AM EDT Appointment Radiology, [address] [phone] 05/25/2023 10:00 AM EDT Procedure Only Urology, [place] [address] [place] [address] Luis Manuel Sandy MD [address] [place] [address] 06/07/2023 2:30 PM EDT Office Visit Dermatology [facility] [address] [place] [address] Cyril Borges MD [address] [place], [place] [phone] 06/14/2023 1:00 PM EDT Office Visit Cosmetic Surgery & Aesthetics [facility] [address] [place] [address] Conor Venegas PA-C [address] [place] [address] 06/19/2023 1:30 PM EDT Nurse Only Rheumatology [facility] [address] [facility] [place] [address] Pf, Nurse Rheum [facility] [place] [address] 06/27/2023 1:20 PM EDT Office Visit Family Practice [facility] [address] [place] [address] Nikunj Plascencia MD [address] [place] [address] 07/03/2023 2:00 PM EDT Office Visit Nephrology, [facility] [address] [facility] [address] Geovanni Linder MD [address] [place] [address] 07/13/2023 2:30 PM EDT Office Visit Pharmacy, [facility] [address] [place] [address] [facility] [address] [place] [address] 09/27/2023 8:30 AM EDT Appointment Radiology, [address] [phone] 09/27/2023 9:30 AM EDT Office Visit Urology, [place] [address] [place], [place] [phone] Luis Manuel Sandy MD [address], [place] [phone] 12/20/2023 2:30 PM EDT Imaging Radiology, [address] [place] [address] 12/20/2023 3:20 PM EDT Office Visit Rheumatology [address] [place] [address] John Yoder MD [address] [place] [address] [place] [address] Pending Results Name Type Priority Associated Diagnoses Date /Time LIPID PANEL WITH DIRECT LDL IF TG IS HIGH Lab Routine Encounter for long-term (current) use of medications 04/28/2023 11:06 AM EST BASIC METABOLIC PANEL Lab Routine PAF (paroxysmal atrial fibrillation) (HCC) Presence of Watchman left atrial appendage closure device 04/28/2023 11:06 AM EST MYCODE SUBSEQUENT ADULT Lab Routine [employer] Other*[id number] 04/28/2023 11:06 AM EST MYCODE SST1 Lab Routine [employer] Other*[id number] 04/28/2023 11:06 AM EST MYCODE SST2 Lab Routine [employer] Other*[id number] 04/28/2023 11:06 AM EST Scheduled Procedures Name Priority Associated Diagnoses Date/Ti me CYSTOURETHROSCOPY URETEROSCOPY WITH LITHOTRIPSY AND STENT INSERTION Renal calculi 05/01/2023 1:16 PM EDT ROBOTIC ARTHROPLASTY KNEE TOTAL Knee osteoarthritis COLONOSCOPY FLEXIBLE PROXIMA L DIAGNOSTIC Recall History of colonic polyps Health Maintenance Due Date Last Done Comments Zoster Vaccines (1 of 2) 1974 HOME BP CUFF VALIDATION YEARLY 04/02/2020 04/02/2019 COVID-19 Vaccine ( season) 2022 05/26/2022, 10/05/2020, 09/14/2020 Mammogram 11/30/2022 11/30/2021, 05/22, 06/10/2021, Additional history exists Depression Screening 12/09/2022 12/09/2021 Albumin/Creatinine Ratio 06/14/2023 06/13/2022, 02/20 GFR 09/29/2023 03/31/2023, 11/20, 10/06/2022, Additional history exists DXA Scan 12/01/2023 11/30/2021, 08/21, 08/29/2017, Additional history exists COLONOSCOPY-EVERY 5 YRS AGES 18-100 03/24/2026 03/24/2021, 09/19/2018, 09/19/2018, Additional history exists Diabetes Screening 04/03/2026 04/03/2023, 0 03/31/2023, 12/07/2022, Additional history exists Lipid Panel 03/31/2028 03/31/2023, 12/22, 12/06/2019, Additional history exists DTaP,Tdap,and Td Vaccines (3 - Td or Tdap) 01/06/2032 01/05/2022, 11/18/2011 Pap Smear Discontinued 08/05/2019, 07/21, 03/01/2010 Fecal Occult Blood Test Discontinued 03/10/19, 03/10/2021, 03/10/2021, Additional history exists Colonoscopy Discontinued 03/24/2021, 08/22, 09/19/2018, Additional history exists Colorectal Cancer Screening Discontinued VITAMIN D LEVEL ONCE IN A LIFETIME-USE SMARTSET# 10167 Completed 06/10/2022, 05/28/2021, 06/20/2020, Additional history exists [...] this encounter Medical Devices Implanted Type Area Senior Net Developer Device Identifier Shelf Expiration Date Model / Serial / Lot Kyphon Hv-R Bone Cement Implanted:Qty: 1 on 08/17/2016 by Michael Smith MD [place] [facility] N/A: Spine Thoracic 03/19/2019 C01A / C01A / [id number] Cement Bone Lv G 1119-140-01 - [id number] Implanted:Qty: 1 on 06/04/2018 by Duc Kimble MD at OR [facility] Right: Knee [employer] 11/19/2020-1119-1 40- / / [id number] Cement Bone Lv G 1119-140-01 - [id number] Implanted:Qty: 1 on 06/04/2018 by Duc Kimble MD at OR [facility] Right: Knee [employer] 06/19/20201119-1 40- / / [id number] Persona The Personlized Knee System Vivacit-E Highly Crosslinked Polyethylene All-Poly Patella Cemented Implanted:Qty: 1 on 06/04/2018 by Duc Kimble MD at OR [facility] Right: Knee [employer] 06/19/2022 42-5402-0 00-35 / / [id number] Tibia Stem 5 Deg Rt Size F - [id number] Implanted:Qty: 1 on 06/04/2018 by Duc Kimble MD at OR [facility] Right: Knee [employer] 10/21/2027 42-5320-0 75-02 / / [id number] Persona The Personalized Knee System Femur Cemented Cr Standard Implanted:Qty: 1 on 06/04/2018 by Duc Kimble MD at OR [facility] Right: Knee [employer] 11/20/2027 42-5026-0 62-02 / / [id number] Persona The Personalized Knee System Vivacit-E Highly Crosslinked Polyethylene Articular Surface Medial Congruent Implanted:Qty: 1 on 06/04/2018 by Duc Kimble MD at OR [facility] Right: Knee [employer] 11/19/2022 42-5221-0 07-12 / / [id number] Device Watchman Flx 24mm - [id number] Implanted:Qty: 1 on 10/06/2022 by Austin Penaloza MD at [facility] [place] : INTRV CARD [id number] 03/07/2025 [id number] 40 / / [id number] Device Watchman Flx 27mm - [id number] Implanted:Qty: 1 on 10/06/2022 by Austin Penaloza MD at [facility] [employer] : INTRV CARD [id number] 08/07/2025 [id number] 70 / / [id number] documented as of this encounter Procedures Procedure Name Priority Date/Time Associated Diagnosis Comments DIFFERENTIAL, AUTOMATED Routine 04/28/2023 11:06 AM EST Other iron deficiency anemia CBC Routine 04/28/2023 11:06 AM EST Other iron deficiency anemia CBC Routine 04/28/2023 11:06 AM EST Other iron deficiency anemia documented in this encounter Results * (ABNORMAL) DIFFERENTIAL, AUTOMATED (04/28/2023 11:06 AM EST) WBC 5.69 4.00 - 10.80 K/uL 04/28/2023 11:26 AM EST [facility] 57-10 Neutrophils % 42.4 40.0 - 75.0 % 04/28/2023 11:26 AM EST [facility] 57-10 Lymphocytes % 35.7 18.0 - 42.0 % 04/28/2023 11:26 AM EST [facility] 57-10 Monocytes % 14.1(H) 1.0 - 11.0 % 04/28/2023 11:26 AM EST [facility] 57-10 Eosinophils % 6.9(H) 0.0 - 6.0 % 04/28/2023 11:26 AM EST [facility] 57-10 Basophils % 0.9 0.0 - 2.0 % 04/28/2023 11:26 AM EST [facility] 57-10 Absolute Neutrophils 2.42 1.80 - 7.70 K/uL 04/28/2023 11:26 AM EST [facility] 57-10 Absolute Lymphocytes 2.03 1.00 - 4.80 K/ul 04/28/2023 11:26 AM EST [facility] 57-10 Absolute Monocytes 0.80 0.00 - 1.10 K/uL 04/28/2023 11:26 AM EST [facility] 57-10 Absolute Eosinophils 0.39 0.00 - 0.70 K/uL 04/28/2023 11:26 AM EST [facility] 57-10 Absolute Basophils 0.05 0.00 - 0.20 K/uL 04/28/2023 11:26 AM EST [facility] 57-10 Blood Venous blood specimen / Unknown Venipuncture / Unknown 04/28/2023 11:06 AM EST 04/28/2023 11:06 AM EST Anusha MILIAN LAB BLOOD OR[facility] 57-10 [address] [place] [address] * (ABNORMAL) CBC (04/28/2023 11:06 AM EST) WBC 5.69 4.00 - 10.80 K/uL 04/28/2023 11:26 AM EST [facility] 57-10 RBC 3.35 3.85 - 5.15 M/uL 04/28/2023 11:26 AM EST [facility] 57-10 HGB 8.9(L) 12.0 - 15.3 g/dL 04/28/2023 11:26 AM EST [facility] 57-10 HCT 30.2(L) 36.0 - 45.2 % 04/28/2023 11:26 AM EST [facility] MCV 90.1 81.5 - 97.5 fL 04/28/2023 11:26 AM EST [facility] 57-10 MCH 26.6 27.0 - 34.0 pg 04/28/2023 11:26 AM EST [facility] 57-10 MCHC 29.5 32.0 - 36.0 g/dL 04/28/2023 11:26 AM EST [facility] 57-10 RDW 15.6 11.5 - 15.5 % 04/28/2023 11:26 AM EST [facility]10 PLT 171 140 - 400 K/uL 04/28/2023 11:26 AM EST [facility] 57-10 MPV 11.2 6.6 - 11.1 fL 04/28/2023 11:26 AM EST [facility] 57-10 Blood Venous blood specimen / Unknown Venipuncture / Unknown 04/28/2023 11:06 AM EST 04/28/2023 11:06 AM EST Anusha Rodarte MAICOL LAB BLOOD [facility] 57-10 [address] [place] [address] documented in this encounter Visit Diagnoses Diagnosis Other iron deficiency anemia Paroxysmal atrial fibrillation (HCC) Atrial fibrillation Encounter for long-term (current) use of medications Encounter for long-term (current) use of other medications PAF (paroxysmal atrial fibrillation) (HCC) Atrial fibrillation Presence of Watchman left atrial appendage closure device MyCode Research Other*[id number] Renal calculi Calculus of kidney documented in this encounter Advance Directives Latest Code Status on File Code Status Date Activated Date Inactivated Comments Full Code 04/03/2023 12:57 PM 04/03/2023 9:07 PM Question Answer Comments Discussion of Advance Direct vikram occurred with: Patient Code Status History Code Status Date Activated Date Inactivated Comments Full Code 10/06/2022 3:46 PM 10/07/2022 3:30 [...] the patient have Health Care Power of Account Manager B2B? No Care Teams Foreclosure Specialist Relationship Specialty Start Date End Date Nikunj Plascencia MD [address] [place] [address] PCP - General Family Medicine 10/31/19 documented as of this encounter
--- OUTSIDE RECORDS SUMMARY | 2023-07-29 04:10 | External Medical Summary | Summary of Care ---
Author Name Unknown Organization [facility] Address [address] [place] [address] Phone [phone] Care Team Providers Care Sales Consulting Director Name Role Phone Nikunj Plascencia MD Primary Care Provider +[phone] Reason for Visit * Reason Comments Outpatient Testing Encounter Details Date Type Department Care Team (Late st Contact Info) Description 04/17/2023 12:50 PM EST Laboratory Laboratory, [facility] [address] [place] [address] [facility] [address] [place] [address] Calculus of kidney Allergies Active Allergy Reactions Criticality Noted Date Comments Egg Shells Nausea/vomiting Medium 06/16/2018 Other reaction(s): GI SYMPTOMS Egg Yolk High 11/29/2019 Other reaction(s): GI upset Ibuprofen Other (Please comment) Medium 07/30/2010 Stomach upset Morphine Edema face/lips/tongue High 08/28/2021 Other reaction(s): LEGS SWELL documented as of this encounter (statuses as of 04/17/2023) Medications Medication Sig Dispensed Refills Start Date [...] Particles (Cymbalta) 0 06/20/2022 Active Saline Nasal [place] 0.65 % Nasal Solution ([place]) Q6H 0 06/06/2022 Active Clobetasol Propionate 0.05 [...] as of this encounter (statuses as of 04/17/2023) Active Problems Problem Noted Date Diagnosed Date Renal stone 03/21/2023 Food insecurity 01/02/2023 Overview: Per [facility] Protocol Presence of Watchman left atrial appendage closu re device 12/19/2022 PAF (paroxysmal atrial fibrillation) 08/17/2022 Overview: Added automatically from request for surgery [id number] Nasal septal perforation 06/13/2022 Overview: Per ENT [...] as of this encounter (statuses as of 04/17/2023) Resolved Problems Problem Noted Date Diagnosed Date [...] 140/90 12/12/201111/09 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 07/30/2018 Overview: [place] palsy Tinea 06/27/2011 07/30/2018 Mixed urge and stress incontinence 12/15/2008 10/08/2019 ADVANCE DIRECTIVE INFORMATION 06/17/2004 10/08/2019 documented as of this encounter (statuses as of 04/17/2023) Immunizations Name Administration Dates Next Due COVID-19 mRNA, LNP-s, No Pre serve, 2-Dose Series ([employer]) 10/05/2020,09/14/2020 Covid-19, Mrna, Lnp-s, Pf, B ivalent, 30 Mcg, IM, 12 yrs and above (Pfizer) 05/26/2022 Pneumococcal Conjugate Vacc, 13 Valent (Prevnar) 05/30/2016 Pneumococcal Conjugate Vacci ne, 20-valent ([id number]) 04/03/2023 Seasonal Influenza Virus Vac cine, Unspecified [...] Care Team (Latest Contact Info) Description 05/01/2023 1:38 PM EDT Hospital Encounter OR [facility], [facility] [address] [place], [place] [phone] Luis Manuel Sandy MD [address] [place] [address] 05/01/2023 1:38 PM EDT - 05/01/2023 3:14 PM EDT Surgery [facility], [facility] [address] [place], [place] [phone] Luis Manuel Sandy MD [address] [place] [address] CYSTOURETHROSCOPY URETEROSCOPY WITH LITHOTRIPSY AND STENT INSERTION 05/16/2023 1:30 PM EDT Cardiac Studies Cardiac Studies, [address] [address] 05/19/2023 1:30 PM EDT Office Visit Cardiology, [facility] [address] [place] [address] Lila Burger CRNP [address] [place] [phone] 05/24/2023 2:00 PM EDT Office Visit Podiatry [address] [address] Eveline Layne DPM [address] [place] [address] 05/25/2023 9:30 AM EDT Appointment Radiology, [place] [address] [place] [address] 05/25/2023 10:00 AM EDT Procedure Only Urology, [place] [address] [place] [address] Luis Manuel Sandy MD [address] [place] [address] 06/07/2023 2:30 PM EDT Office Visit Dermatology [facility] [address] [place] [address] Cyril Borges MD [address] [place] [address] 06/14/2023 1:00 PM EDT Office Visit Cosmetic Surgery & Aesthetics [facility] [address] [place] [address] Conor Venegas PA-C [address] [place] [address] 06/19/2023 1:30 PM EDT Nurse Only Rheumatology [address] [place] [address] Pf, Nurse Rheum [address] [place] [address] [place] [address] 06/27/2023 1:20 PM EDT Office Visit Family Practice [facility] [address] [place] [address] Nikunj Plascencia MD 132 [facility] [place] [address] 07/03/2023 2:00 PM EDT Office Visit Nephrology, [facility] [address] [place] [address] Geovanni Linder MD [address] [place] [address] 07/13/2023 2:30 PM EDT Office Visit Pharmacy, [facility] [address] [place] [address] [facility] 132 [place] [address] 09/27/2023 8:30 AM EDT Appointment Radiology, [place] [address] [place] [address] 09/27/2023 9:30 AM EDT Office Visit Urology, [place] [address] [place] [address] Luis Manuel Sandy MD [address] [place] [address] 12/20/2023 2:30 PM EDT Imaging Radiology, [address] [place], [place] [address] 12/20/2023 3:20 PM EDT Office Visit Rheumatology [address] [place] [address] John Yoder MD [address] [place] [address] Pending Results Name Type Priority Associated Diagnoses Date /Time CULTURE, URINE, QUANTITATIVE Lab Routine Calculus of kidney 04/17/2023 12:05 PM EST Scheduled Procedures Name Priority Associated Diagnoses Date/Ti me CYSTOURETHROSCOPY URETEROSCOPY WITH LITHOTRIPSY AND STENT INSERTION Renal calculi 05/01/2023 1:38 PM EDT ROBOTIC ARTHROPLASTY KNEE TOTAL Knee [...] D LEVEL ONCE IN A LIFETIME-USE SMARTSET# 32587 Completed 06/10/2022, 05/28/2021, 06/20/2020, Additional history exists [...] this encounter Medical Devices Implanted Type Area Disposal Worker Device Identifier Shelf Expiration Date Model / Serial / Lot Kyphon Hv-R Bone Cement Implanted:Qty: 1 on 08/17/2016 by Michael Smith MD at OR [facility] N/A: Spine Thoracic 03/19/2019 C01A / C01A / [id number] Cement Bone Lv G 1119-140-01 - [id number] Implanted:Qty: 1 on 06/04/2018 by Duc Kimble MD at OR [facility] Right: Knee [employer] 11/19/2020-1119-1 40 [id number] Cement Bone Lv G 1119-140-01 - [id number] Implanted:Qty: 1 on 06/04/2018 by Duc Kimble MD at OR [facility] Right: Knee [employer] 06/19/2020-1119-1 40 [id number] Persona The Personlized Knee System Vivacit-E Highly Crosslinked Polyethylene All-Poly Patella Cemented Implanted:Qty: 1 on 06/04/2018 by Duc Kimble MD at OR [facility] Right: Knee [employer] 06/19/2022 42-5402-0 00-35 / / [id number] Tibia Stem 5 Deg Rt Size F - [id number] Implanted:Qty: 1 on 06/04/2018 by Dcu Kimble MD at OR [facility] Right: Knee [employer] 10/21/2027 42-5320-0 75-02 / / [id number] Persona The Personalized Knee System Femur Cemented Cr Standard Implanted:Qty: 1 on 06/04/2018 by Duc Kimble MD at OR [facility] Right: Knee [employer] 11/20/2027 42-5026-0 62-02 / / [id number] Persona The Personalized Knee System Vivacit-E Highly Crosslinked Polyethylene Articular Surface Medial Congruent Implanted:Qty: 1 on 06/04/2018 by Duc Kimble MD at OR [facility] Right: Knee [employer] 11/19/2022 42-5221-0 07-12 / / [id number] Device Watchman Flx 24mm - [id number] Implanted:Qty: 1 on 10/06/2022 by Austin Penaloza MD at [facility] [employer] : INTRV CARD [id number] 03/07/2025 [id number] 40 / / [id number] Device Watchman Flx 27mm - [id number] Implanted:Qty: 1 on 10/06/2022 by Austin Penaloza MD at [facility] [employer] : INTRV CARD [id number] 08/07/2025 [id number] 70 / / [id number] documented as of this encounter Visit Diagnoses Diagnosis Calculus of kidney Renal calculi Calculus of kidney documented in [...] the patient have Health Care Power of Junior Oracle Dba? No Care Teams Sales Consulting Director Relationship Specialty Start Date End Date Nikunj Plascencia MD [address] [place] [address] PCP - General Family Medicine 10/31/19 documented as of this encounter
--- OUTSIDE RECORDS SUMMARY | 2023-07-29 04:10 | External Medical Summary ---
Author Name Unknown Address Unknown Organization : Laboratory Report Ordering Provider Test Date Status DARYL RAYMOND 05/01/2023 13:04:00 Final Observation Date Value Abnormality Reference (Units ) Status SPECIMEN SOURCE 05/01/2023 13:04:00 SEE BELOW Final RIGHT RENAL STONE COMPONENT 1 05/01/2023 13:04:00 SEE BELOW Final Calcium Oxalate Dihydrate (W eddellite) 10%
Calcium Oxalate Monohydrate (Whewellite) 90%
This test was developed and its analytical performance
characteristics have been determined by [email or web address]
[employer]. It has not been cleared or approved by the
FDA. This assay has been validated pursuant to the CLIA
regulations and is used for clinical purposes. COMPONENT 2 05/01/2023 13:04:00 DNR Final STONE WEIGHT 05/01/2023 13:04:00 0.078 (g) Final Test performed by:
[employer]
[address] [facility]
[place] [address]

[phone]
Magistrate Judge: Fernando Hernandez M.D.
Test Reported by [email or web address],
[employer],
[address] [place], [place]
Everardo Weber M.D., Ph.D., Director of Laboratories
, CLIA [id number] Performing Location
--- OUTSIDE RECORDS SUMMARY | 2023-07-29 04:10 | External Medical Summary | Summary of Care ---
Author Name Unknown Organization [facility] Address [address] [place] [address] Phone [phone] Care Team Providers Care Aviation Technician Name Role Phone Nikunj Plascencia MD Primary Care Provider [phone] Reason for Visit * Auth/Cert Specialty Diagnoses / Procedures Referred By Kieran t Referred To Contact Diagnoses Renal calculi Renal calculi [N20.0] Procedures CYSTO/URETERO W/LITHOTRIPSY CYSTOURETHROSCOPY URETEROSCOPY WITH LITHOTRIPSY AND STENT INSERTION Referral ID Status Reason Start Date Expiration Date Visits Re quested Visits Authorized [id number] Encounter Details Date Type Department Care Team (Latest Contact Info) Description 05/01/2023 10:50 AM EDT - 05/01/2023 3:34 PM EDT Hospital Encounter [facility], OPERATING ROOM [facility], [facility] [address], [place] [id number] Luis Manuel Sandy MD [address] [place] [address] Discharge Disposition: Home - Self Care Allergies Active Allergy Reactions Criticality Noted Date Comments Egg Shells Nausea/vomiting Medium 06/16/2018 Other reaction(s): GI SYMPTOMS Egg Yolk High 11/29/2019 Other reaction(s): GI upset Ibuprofen Other (Please comment) Medium 07/30/2010 Stomach upset Morphine Edema face/lips/tongue High 08/28/2021 Other reaction(s): LEGS SWELL documented as of this encounter (statuses as of 05/02/2023) Medications Medication Sig Dispensed Refills Start Date [...] Particles (Cymbalta) 0 06/20/2022 Active Saline Nasal Natrona 0.65 % Nasal Solution (Ogemaw) Q6H 0 06/06/2022 Active Clobetasol Propionate 0.05 [...] Pain, Moderate. 5 Tablet 0 05/01/2023 Active documented as of this encounter (statuses as of 05/02/2023) Active Problems Problem Noted Date Diagnosed Date Renal stone 03/21/2023 Food insecurity 01/02/2023 Overview: Per [facility] Protocol Presence of Watchman left atrial appendage closu re device 12/19/2022 PAF (paroxysmal atrial fibrillation) 08/17/2022 Overview: Added automatically from request for surgery [id number] Nasal septal perforation 06/13/2022 Overview: Per ENT [...] as of this encounter (statuses as of 05/02/2023) Resolved Problems Problem Noted Date Diagnosed Date [...] as of this encounter (statuses as of 05/02/2023) Immunizations Name Administration Dates Next Due COVID-19 mRNA, LNP-s, No Pre serve, 2-Dose Series (Subitec) 10/05/2020,09/14/2020 Covid-19, Mrna, Lnp-s, Pf, B ivalent, 30 Mcg, IM, 12 yrs and above (Pfizer) 05/26/2022 Pneumococcal Conjugate Vacc, 13 Valent (Prevnar) 05/30/2016 Pneumococcal Conjugate Vacci ne, 20-valent ([id number]) 04/03/2023 Seasonal Influenza Virus Vac cine, Unspecified [...] Sign Reading Time Taken Comments Blood Pressure 100/72 05/01/2023 3:00 PM EDT Pulse 61 05/01/2023 3:15 PM EDT Temperature 36 C (96.8 F) 05/01/2023 3:15 PM EDT Respiratory Rate 15 05/01/2023 3:15 PM EDT Oxygen Saturation 100% 05/01/2023 3:15 PM EDT Inhaled Oxygen Concentration - - Weight 129.5 kg (285 lb 9.6 oz) 024 11:08 AM EDT Height 165.1 cm (5' 5") 05/01/2023 11:0 8 AM EDT Body Mass Index 47.53 05/01/2023 11:08 AM EDT documented in this [...] No 06/04/2018 documented as of this encounter Discharge Instructions * Discharge Instr - AVS* Shaun Anna MD - 05/01/2023 1:50 PM EDT Discharge Date: 05/01/2023 Check your Patient Education Brochure for further information. You may call [phone] between the hours of 7:00 a.m. - 8:00 p.m. for the first 24 hours. After the initial 24 hours, please contact your physician at [phone]. After 5:00 p.m. or on the weekend, call [phone] and ask for thephysician special education math teacher. [facility] is available 24 hours a day at . The information below provides you with the instructions and the list of medications you need to betaking following discharge from the hospital. If you have any questions, please ask before leaving.Please carry this letter with you when you see your doctor in the clinic. If you have questions, you can reach us at the numbers above. Diet: Start with clear liquids (jello, tea, apple juice), avoid dairy products (milk, cheese, pudding, ice cream) and fried, greasy foods. Progress to prescribed diet as tolerated. If nausea should occur, have clear liquids only until soft foods can be tolerated. Activity: A responsible adult must be with the patient for 24 hours after surgery. Rest today and tomorrow, and then increase activity as tolerated. DO NOT drive, operate any appliances and/or machinery or sign legal documents for 24 hours. Control of Pain and Stent Discomfort: Tylenol and flomax Warnings: Call promptly in case of: A. Excessive bleeding B. Fever greater than 101 degrees F (38.3 degrees C) C. Persistent nausea and vomiting D. Redness, swelling or pus-like drainage E. Pain that is not relieved by the medicines mentioned above Special Instructions: You had instrumentation of your urethra and bladder. You will likely have burning or light bleedingwhen you urinate - this is normal. Drink plenty of fluids, preferably water, to dilute any blood inyour urine. Additionally, dilute urine will burn less with urination. Follow up A follow up appointment will be made for you with Dr. Hammonds in 1-2 weeks for stent removal. You will be called with this appointment. If you are not contacted about this appointment -within 1 week you should call [phone] to confirm the date. See your primary care physician (Nikunj Plascencia MD) as needed. Future Appointments Appt Date/Time Provider Department 05/16/2023 1:30 PM CLOTH CARRIER 2 GW Cardiac Studies, [facility] 05/19/2023 1:30 PM Lila Burger CRNP Cardiology, [facility] 05/24/2023 2:00 PM Eveline Layne DPM Podiatry [facility] 05/25/2023 9:30 AM XR D1 [facility] 05/25/2023 10:00 AM Luis Manuel Sandy MD Urology, [place] 06/07/2023 2:30 PM Cyril Borges MD Dermatology [facility] 06/14/2023 1:00 PM Conor Venegas PA-C Cosmetic Surgery & Aesthetics [facility] 06/19/2023 1:30 PM Pf, Nurse Rheum Rheumatology [facility] 06/27/2023 1:20 PM Nikunj Plascencia MD Family Practice [facility] 07/03/2023 2:00 PM Geovanni Linder MD Nephrology, [facility] 07/13/2023 2:30 PM [facility], [facility] 09/27/2023 8:30 AM US5 [facility] Radiology, [place] 09/27/2023 9:30 AM Luis Manuel Sandy MD Urology, [place] 12/20/2023 2:[address] [facility] Radiology, [facility] 12/20/2023 3:20 PM John Yoder MD Rheumatology [facility] documented in this encounter Progress Notes * Shaun Anna MD - 05/01/2023 1:45 PM EDT [facility] [address] [facility] [id number] OUTPATIENT SURGERY DISCHARGE SUMMARY NOTE Name: Caroline Paulino Location: OR [facility] Date: 05/01/2023 Time: 1:45 PM Surgery Date: 05/01/2023 Procedure: Procedure(s): CYSTOURETHROSCOPY URETEROSCOPY WITH LITHOTRIPSY AND STENT INSERTION Right Surgeon: Surgeon(s): Luis Manuel Sandy MD Battin, Alexander Owen, MD Discharge Diagnosis: right renal stone After examination of this patient, I have determined she is ready for discharge to home when the patient meets criteria. Discharge instructions were given to the patient. Shaun Anna MD Urology PGY-2 [facility] 05/01/2023, 1:45 PM documented in this encounter H&P Notes * Shaun Anna MD - 05/01/2023 11:09 AM EDT History and Physical - Urology [facility] [address] [facility] [id number] Name: Caroline Paulino Location: OR [facility] Date: 05/01/2023 Time: 11:10 AM CC: R renal pelvis stone HPI: This is a 67 year old female with history of right flank pain with finding of 8mm nonobstructing right renal stone. The patient had procedure 04/03/23 but had narrow ureter and proximal active extravasation was noted. A 6Fr x 22cm stent was placed with plan to return today. Patient feels well. She has cardia disease with watchmen device in place. She has held plavix 5 days Patient denies fevers, chills, night sweats, nausea, vomiting, diarrhea, chest pain, and shortness of breath. PAST MEDICAL HISTORY: Past Medical History: Diagnosis Date --- DIABETES --- prediabetes Acute on chronic diastolic CHF (congestive heart failure) (HCC) 01/26/2018 Allergic rhinitis Collazo's palsy left eye palsy Benign neoplasm of colon 11/20/2010 hyperplastic polyps- repeat colonoscopy in 10 years Bicuspid aortic valve 10/09/2019 Bullous pemphigoid 08/17/2016 txt with cellcept Chronic insomnia 12/22/2020 CKD (chronic kidney disease) stage 3, GFR 30-59 ml/min ([facility]) Compression fracture of body of thoracic vertebra ([facility]) 08/17/2016 Controlled substance agreement terminated 10/20/2021 Current tear of medial cartilage or meniscus of knee left knee Depression with anxiety 10/20/2021 Depressive disorder, not elsewhere classified Disorder of adrenal gland ([facility]) 01/26/2018 Dyslipidemia 12/20/2019 Fall 06/30/2022 Female [...] of recurrent major depressive disorder ([facility]) 10/08/2019 Other pulmonary embolism without acute cor pulmonale ([facility]) 07/27/2018 Overflow incontinence Paroxysmal atrial flutter ([facility]) 06/21/2021 Presence of Watchman left atrial appendage closure device 12/19/2022 Recurrent major depressive disorder in remission ([facility]) 01/26/2018 S/P kyphoplasty 08/17/2016 Sacroiliitis ([facility]) 01/26/2018 Senile osteoporosis 08/29/2017 Spinal stenosis of lumbar region without neurogenic claudication 01/04/2017 Status post total right knee replacement 06/06/2018 Tibial plateau fracture 01/22/2015 PAST SURGICAL HISTORY: Past Surgical History: Procedure Laterality Date ARTHROPLASTY KNEE TOTAL Right 06/04/2018 ARTHROPLASTY KNEE TOTAL performed by Duc Kimble Jr., MD at OR [facility] ASP/INJECT GANGLION CYST bilaterally, right x2 COLONOSCOPY THRU STOMA, W/BIOPSY 11/20/2010 hyperplastic polyps- repeat colonoscopy in 10 years COLONOSCOPY, DIAGNOSTIC (RECTUM) 10/16/2017 poor prep, procedure aborted/[facility] COLONOSCOPY, DIAGNOSTIC (RECTUM) 09/19/2018 diverticulosis/COLONOSCOPY FLEXIBLE PROXIMAL DIAGNOSTIC performed by Kristen Nogueira MD at ENDOSCOPY [facility] COLONOSCOPY, DIAGNOSTIC (RECTUM) 03/24/2021 adenomatous polyp, diverticulosis, repeat 5 yrs / [facility] CORONARY ANGIOGRAPHY W/LEFT HEART CATH Right 11/07/2016 CORONARY ANGIOGRAPHY W/LEFT HEART CATH performed by Fernando Germain DO at CARDIAC LABS [facility] CYSTO/URETERO W/LITHOTRIPSY Right 04/03/2023 CYSTOURETHROSCOPY URETEROSCOPY WITH LITHOTRIPSY AND STENT INSERTION performed by Luis Manuel Sandy MD at OR [facility] EGD, FLEXIBLE, DIAGNOSTIC 10/13/2017 normal/[facility] EGD, FLEXIBLE, DIAGNOSTIC 03/24/2021 Barretts, gastritis / [facility] HYSTEROSCOPY;ENDOMETRIAL ABLAT 1998 hysteroscopy, rollerball ablation [...] by Yannick Daniel, DO at OR [facility] IR KYPHOPLASTY 08/17/2016 IR VERTEBRAL AUGMENTATION THORACIC N/A 08/17/2016 PERCUTANEOUS VERTEBRAL AUGMENTATION THORACIC KYPHOPLASTY performed by Michael Smith MD at OR [facility] MAMMOGRAM SCREENING-BILATERAL 2005 [facility] PERC CLOSURE TRANSCATH LEFT ATRIAL APPENDAGE W/ENDOCARDIAL IMPLANT Right 10/06/2022 PERCUTANEOUS CLOSURE LEFT ATRIAL APPENDAGE IMPLANT performed by Austin Penaloza MD at CARDIAC [facility] REMOVAL OF APPENDIX 11/2018 SACROILIAC JOINT INJECT W/GUIDANCE 03/19/2018 INJECTION SACROILIAC JOINT performed by Yannick Daniel, DO at [facility] SACROILIAC JOINT INJECT W/GUIDANCE 04/30/2018 INJECTION SACROILIAC JOINT performed by Yannick Daniel, DO at OR [facility] SACROILIAC JOINT INJECT W/GUIDANCE 07/30/2018 INJECTION SACROILIAC JOINT performed by Yannick Daniel, DO at OR [facility] SACROILIAC JOINT INJECT W/GUIDANCE Right 07/29/2019 INJECTION SACROILIAC JOINT performed by Yannick Daniel, DO at OR [facility] SACROILIAC JOINT INJECT W/GUIDANCE 04/13/2020 INJECTION SACROILIAC JOINT performed by Yannick Daniel, DO at OR [facility] THIGH OR KNEE SURGERY NEC 2006 Knee/Leg Other Procedures Unlisted FAMILY HISTORY: Family History Problem Relation Age of Onset Stroke Mother dementia. complications COVID as well. Arthritis Mother Cancer Mother uterine Heart Disorder Mother bypass pig valve aorta Heart Disorder Father , age 62 Diabetes Father Stroke Father Hypertension Father Colon cancer Father Thyroid Disorder Sister No Past Hx Sister Other (Other) Sister hypersensitive to touch Heart Disorder Brother congenital SOCIAL HISTORY: Social History Tobacco Use Smoking status: Former Current packs/day: 0.00 Average packs/day: 0.5 packs/day for 30.0 years (15.0 ttl pk-yrs) Types: Cigarettes Start date: 07/30/1978 Quit date: 07/30/2008 Years since quittin.7 Smokeless tobacco: Never Tobacco comments: mar 2007 Vaping Use Vaping Use: Never used Substance Use Topics Alcohol use: No Drug use: No ALLERGIES: Egg yolk, Morphine, Egg shells, and Ibuprofen HOME MEDS: Prior to Admission medications Medication Sig Last Dose Discont. oxyCODONE-Acetaminophen 5-325 MG Oral Tablet (Percocet) Take 1 Tablet by mouth every 4 hours as needed for Pain, Moderate. Doxepin HCl 25 MG Oral Capsule (SINEquan) Take 1 Capsule by mouth at bedtime. Tamsulosin HCl 0.4 MG Oral Capsule (Flomax) Take 1 Capsule by mouth in the morning. Acitretin 10 MG Oral Capsule Take 1 capsule daily with breakfast. cycloSPORINE 0.05 % Ophthalmic Emulsion (Restasis) Instill 1 drop in each eye every 12 hours. Dupixent 300 MG/2ML Subcutaneous Solution Pen-injector (Dupilumab) Inject one pen under the skin every 2 weeks. Metoprolol Succinate ER 50 MG Oral Tablet Extended Release 24 Hour (toPROL XL) TAKE 1/2 TABLET EVERY MORNING AND EVENING Tacrolimus 0.1 % External Ointment Apply thin film to affected areas at face twice daily as needed. Atorvastatin Calcium 80 MG Oral Tablet (Lipitor) TAKE 1 TABLET BY MOUTH EVERY DAY IN THE MORNING Patient taking differently: Take 1 Tablet by mouth at bedtime. Lisinopril 10 MG Oral Tablet (Prinivil) TAKE 1 TABLET BY MOUTH EVERY DAY Patient taking differently: Take 1 Tablet by mouth at bedtime. Pregabalin 150 MG Oral Capsule (Lyrica) Take 1 Capsule by mouth in the morning and 1 Capsule beforebedtime. Clopidogrel Bisulfate 75 MG Oral Tablet (pLAVix) Take 1 Tablet by mouth in the morning. valACYclovir HCl 1 GM Oral Tablet (Valtrex) Take 1 Tablet by mouth in the morning and 1 Tablet at noon and 1 Tablet before bedtime. Aspirin 81 MG Oral Tablet Chewable Take 1 Tablet by mouth in the morning. Do not start before October 07, 2022. SUMAtriptan Succinate 25 MG Oral Tablet (Imitrex) Take 2 tablets at onset of migraine and one tablet every 2 hours as needed, not more than 5 tablets in 24 hours Clobetasol Propionate 0.05 % External Ointment (Temovate) Apply thin film to affected area at body twice daily as needed for up to 2 weeks at a time. Not for use at face, armpits, groin. DULoxetine HCl 30 MG Oral Capsule Delayed Release Particles (Cymbalta) Saline Nasal Natrona 0.65 % Nasal Solution (Ogemaw) Q6H Oxybutynin Chloride ER 5 MG Oral Tablet Extended Release 24 Hour (Ditropan XL) Take 1 Tablet by mouth in the morning. Patient taking differently: Take 1 Tablet by mouth at bedtime. Clotrimazole 1 % External Cream (Lotrimin) Apply topically to affected area as needed for Itching. diphenhydrAMINE HCl 25 MG Oral Tablet Take 1 Tablet by mouth in the morning. Memantine HCl 5 MG Oral Tablet (Namenda) Take 1 tablet daily for 1 week and then 1 tablet twice daily Betamethasone Dipropionate 0.05 % External Ointment Apply 2x daily to blisters and rash on face/trunk (back)/arms/legs until resolved, then when flaring Calcipotriene 0.005 % External Cream (Dovonex) Apply 2x daily to rash on face/trunk/arms until resolved, then when flaring DULoxetine HCl 60 MG Oral Capsule Delayed Release Particles (Cymbalta) Take 1 Capsule by mouth in the morning. Nitroglycerin 0.4 MG Sublingual Tablet Sublingual (Nitrostat) Place 1 Tablet under the tongue every5 minutes as needed for Pain, Chest. Up to 3 in 15 minutes. Patient not taking: Reported on 04/03/2023 busPIRone HCl 10 MG Oral Tablet (Buspar) Take 1 Tablet by mouth in the morning and 1 Tablet before bedtime. Folic Acid 800 MCG Tablet Take 1 Tab by mouth daily. vitamin c (ASCORBIC ACID) 250 MG Tablet Take 1 Tab by mouth daily. COLACE 100 MG PO CAPS 1 am & 1 at bedtime VITAMIN D 1000 UNITS PO CAPS Take 1 Capsule by mouth in the morning. B-12 1000 MCG PO TBCR Take by mouth 1 Tablet daily . OMEGA 3-6-9 FATTY ACIDS PO CAPS once daily REVIEW OF SYSTEMS: Constitutional: (-) fever Eyes: (-) changes in vision ENT: (-) changes in hearing Cardiovascular: (-) chest pain Pulmonary: (-) shortness of breath Abdominal/GI: (+) pain (-) nausea, vomiting, diarrhea Musculoskeletal: (-) weakness Endocrine: (-) heat or cold intolerance Skin: (-) new rashes : (-) frequency, urgency, incontinence, gross hematuria PHYSICAL EXAMINATION: Most Recent Vital Signs: BP: / Pulse: Temp: Temp Summary: No data recorded SpO2: O2 flow rate: Supplemental O2 Delivery: Constitutional: Alert, no acute distress Skin: No obvious rashes or lesions Eyes: No scleral icterus ENT/Mouth: No tracheal deviation Cardiovascular: Normal rate, chronic murmur appreciated Respiratory: Non-labored breathing, CTAB Gastrointestinal: Abdomen is soft, non-tender, non-distended Neurological: No gross focal deficits Psychiatric: Normal mood and affect LAB LINKS:Labs reviewed as indicated below: CBC Lab Results Component Value Date/Time WBC 5.69 04/28/2023 11:06 AM WBC 10.19 01/07/2020 11:40 AM HGB 8.9 (L) 04/28/2023 11:06 AM HGB 11.4 (L) 01/07/2020 11:40 AM HCT 30.2 (L) 04/28/2023 11:06 AM HCT 37.8 01/07/2020 11:40 AM PLT 171 04/28/2023 11:06 AM PLT 257 01/07/2020 11:40 AM BMP Lab Results Component Value Date/Time NA 142 04/28/2023 11:06 AM NA 140 01/07/2020 11:40 AM POTASSIUM 5.0 04/28/2023 11:06 AM POTASSIUM 4.9 01/07/2020 11:40 AM CL 108 (H) 04/28/2023 11:06 AM CL 100 01/07/2020 11:40 AM CO2 24 04/28/2023 11:06 AM CO2 29 01/07/2020 11:40 AM BUN 38 (H) 04/28/2023 11:06 AM BUN 19 01/07/2020 11:40 AM CREAT 1.5 (H) 04/28/2023 11:06 AM CREAT 1.3 (H) 01/07/2020 11:40 AM Ca, Mg, Phos Lab Results Component Value Date/Time CA 9.2 04/28/2023 11:06 AM CA 9.6 01/07/2020 11:40 AM MG 2.1 01/07/2020 11:40 AM PHOSPHORUS 3.2 06/10/2022 12:25 PM PHOSPHORUS 4.0 01/07/2020 11:40 AM CULTURES: Lab Results Component Value Date/Time CULTURE LESS THAN 10,000 COLONIES/ML MIXED NORMAL PAVAN 05/17/2019 03:58 PM IMAGING: none new No orders to display IMPRESSION: R renal stone, intermittent right flank pain PLAN: -OR today, cysto right ureteral stent exchange, LL and stone basketing -Consented at bedside Patient to be discussed with Dr. Vika Anna MD 05/01/2023 11:10 AM documented in this encounter Nursing Notes * Lanny Tafoya, RN - 05/01/2023 3:32 PM EDT Dual Licensed Skin Assessment completed by lanny washington and sravanthi rn. The patient is/has a N/A Skin Breakdown (includes non blanchable erythema): Yes - Surgical/Procedural changes only. * Ovidio Pryor RN - 05/01/2023 1:05 PM EDT Cystoscopy/Ureteroscopy Fluids Fluid in:2000ml NS Fluid out:2000ml Deficit:0ml * Natalie Pierce RN - 05/01/2023 1:01 PM EDT Dual Licensed Skin Assessment completed by jamey and Isabel [place]. The patient is/has a N/A Skin Breakdown (includes non blanchable erythema): No * Deena Hairston RN - 04/28/2023 9:51 AM EST Presurgery instructions sent to patient via [employer] message. Pre-operative chart review completed-instructions provided based on current medication list in [facility]. NO ANESTHESIA EVAL REQUESTED PER CASE DOCUMENTATION. PREOP PATIENT INFORMATION AND EDUCATION: MEDICATION INSTRUCTIONS: The day of surgery/procedure, you may TAKE the following medications with a sip of water up to 2 hours prior to your arrival time: -Percocet if needed -Metoprolol -Atorvastatin -Pregabalin -Valacyclovir -Sumatriptan if needed -Duloxetine -Memantine -Nitroglycerin if needed -Buspirone -Eye drops as directed if needed STOP taking the following medications the noted number of days prior to surgery/procedure unless otherwise specified by your surgeon: Please follow surgeon's instructions regarding use of Aspirin, Coumadin, Plavix, Eliquis, and any other blood thinner including NSAIDs (non-steroidal anti- inflammatory drugs, eg, Advil, Ibuprofen, Motrin, Aleve, Naproxen); if you have any questions regarding your anticoagulation therapy please contact your surgeon's clinic. Please verify any proposed stoppage of your anticoagulation therapy with the agent's prescribing provider. 10 days prior to surgery/procedure Stop all Herbal supplements, Green Tea, Turmeric, Melatonin, CBD, THC, etc. Stop all Vitamins (including Vitamin E) 24 hours prior to surgery/procedure DO NOT consume any alcohol. DO NOT use medical marijuana. DO NOT smoke or use tobacco products of any kind after midnight prior to surgery. *Using any of these products may increase your risks of procedural complications. IF IT IS LESS THAN RECOMMENDED STOPPAGE TIME PLEASE STOP AT TIME OF NOTIFICATION. FASTING RECOMMENDATIONS: To reduce risk, it is important for all elective surgery patients to follow the specific fasting guidelines listed below. If you have received more stringent guidelines, please follow the MOST RESTRICTIVE guidelines that you have been provided. DO NOT EAT after midnight on the night prior to your surgery date. You are allowed to drink clear liquids up to two hours prior to arrival time to the hospital or surgery center. Examples of clear liquids include water, clear fruit juice without pulp, clear carbonated beverages, clear tea, and black coffee. Any drinks given by your surgical service take as directed. /pediatric patients who currently drink breast milk, infant formula, and non-human milk must not eat after midnight. These patients are allowed to drink only the liquids listed below up to two hours prior to arrival time to the hospital or surgery center: Ingested Material Minimum Fasting Time Clear liquid After midnight up to 2 hours prior to arrival time Breast milk Up to 4 hours prior to arrival time Infant formula Up to 6 hours prior to arrival time Non-human milk Up to 6 hours prior to arrival time THE DAY BEFORE YOUR SURGERY: -Drink plenty of fluid the day before your surgery. Contact your surgeon's office if you develop any of the following within 2 weeks of surgery: A cold Infection Fever Shingles Chicken pox or exposure to chicken pox Open areas such as scrapes, cuts, schreiber or other skin conditions Rashes GENERAL INSTRUCTIONS FOR PREPARING FOR SURGERY: BATHING INSTRUCTIONS: Bathe the evening prior to and the morning of surgery/procedure. Cleanse your body using ONLY anti-bacterial soap (eg, Dial, Safeguard) or any specific soap/cleansers and instructions provided by your surgeon (eg, Chlorhexidine). -You should brush your teeth the morning of surgery. Do NOT apply any lotions, powders, sprays, creams, oils, make-up, or deodorants after bathing. No hairspray, or nail kazakh on fingers or toes. Day of surgery/procedure do not use tampons. If you wear contacts wear your eyeglasses if available otherwise bring your contact supplies with you to remove them prior to your surgery/procedure. If you wear glasses or dentures, please bring cases in which you can store them during your surgery. Please remove all piercings and jewelry and leave them at home. Wear comfortable and loose clothing. -Please leave all valuables at home. -If you use a CPAP and are staying overnight, please bring your mask and tubing with you to the hospital. -If you use an assistive mobility device (walker, cane, etc), please label it with your name and bring to hospital. -An escort waste collection driver is required if you are being discharged the same day of the surgery. You should have a responsible adult over the age of 18 [address] drive you home. This person should be present with youin the hospital at the time of discharge and for the first 24 hours after the surgery to support your needs. If you are taking a taxi home, you must have your responsible green party accompany you in the taxi ride home at the time of discharge. OR times subject to change. Please check voicemail messages the day/evening before your surgery forany updates. PRE-OP: You will be taken to the pre-op area where your vital signs (blood pressure, pulse and temperature)will be taken. Any preparations that need to be done will be done there. When it is time for your surgery, you will be taken to the operating room. PARENTS OF PEDIATRIC PATIENTS WILL BE ALLOWED TO STAY WITH THEIR CHILDREN UNTIL THEY ARE ESCORTED TO THE OPERATING ROOM OUTPATIENT SURGERY PATIENTS: After your surgery you will be taken to the Same Day Surgery Unit when you are awake and will go home from there. You will get instructions about your home care before you leave. Arrange to have someone drive you home from the hospital. You may not drive for 24 hours after anesthesia. You must havean adult stay with you at home for 24 hours after your operation. This is very important. If you are not able to comply with these guidelines, your Short Stay surgery cannot be done. ADMISSION PATIENTS: After your stay in the recovery area, you will be taken to your room. Your family may visit you in your room based on current visitation policy. If a next day discharge is expected, it is important to make arrangements for a waste collection driver to take you home. Please be aware our visitation policies are subject to change Professionals, attendants, caregivers or family members are allowable visitors for patients with intellectual, developmental or cognitive disabilities, communication barriers or behavioral concerns. Because patients' and families' needs vary, they will be taken into account when applying visitation restrictions. ANESTHESIA INFORMATION This information has been prepared to help you and your family better understand the process of anesthesia, so that you may help make well-informed decisions about your care. This information is alsoprovided to guide your completion of the [facility] anesthesia consent form which addresses real, but infrequent, problems associated with anesthesia. IMPORTANT INFORMATION TO PREVENT YOUR SURGERY FROM BEING CANCELLED/ RESCHEDULED: --You are required to have a waste collection driver to take you home whether you are admitted to the hospital following your surgery or not --You are required to have a responsible adult with you for the first 24 hours after surgery to support your needs Types of Anesthesia: Local Anesthesia Local anesthetic drugs (numbing drugs) are usually injected into the tissues to numb just the specific location of your body requiring minor surgery, such as an area of your hand or foot. Regional Anesthesia -Regional anesthesia involves the use of local anesthetics (numbing drugs) to numb larger areas of your body by blocking nerves to those areas. This is commonly referred to as a nerve block. Another way of performing regional anesthesia is by blocking nerves of the spinal cord by injecting numbing m edicines with great exactness around those nerves. This is called spinal or epidural anesthesia depending on exactly where the medication is injected. The type of regional anesthesia selected dependson the type of surgery and whether regional anesthesia is being done to help with pain after surgery or as a part of the anesthesia for surgery. You may remain awake, be sedated, or be given a general anesthetic depending on the type of surgery and the type of regional anesthesia performed Monitored Anesthesia Care (MAC) -Describes a range of sedation that can be given to a patient undergoing a procedure. The level of sedation usually depends on what is needed for the procedure being performed. A patient could be awake and aware of the procedure being performed but be relaxed and able to follow instructions as needed or may be unaware of what is happening and only rouse to significant stimulation. A patient may be able to speak, hear things around them, and answer questions and follow commands but is not in pain or anxious. A patient may experience varying depths of sedation during the procedure. The use of general anesthesia could result if this type of anesthesia is ineffective. General Anesthesia - Occurs by using a combination of medications to put a patient into a deep, sleep-like, unresponsive state for surgery. This is required for many surgical procedures. Under general anesthesia, a patient does not feel pain and is unaware of what is happening during the procedure. Systems in the body may not function normally while a patient is under general anesthesia. They are monitored by the anesthesia provider and may need to be assisted while a patient is under general anesthesia. For example, a breathing device may need to be placed in the airway to assist breathing and medications may need to be given to ensure that your blood pressure and heart rate remain normal. Risks of Anesthesia: Regional/Local/Nerve Blocks -Include but are not limited to, , cardiac or respiratory arrest, permanent complete paralysis, permanent nerve injury, seizure, spinal headache, backache, pain in buttocks and legs, infection, bleeding, leakage of spinal fluid, inadequate pain relief, bowel or bladder dysfunction, prolonged numbness or pain, temporary drop in blood pressure, or allergic reaction to the medications. Monitored Anesthesia Care (MAC) -Common risks include temporary dizziness, light-headedness, nausea and/or vomiting, and leakage ofintravenous fluid into the tissues with swelling or discoloration of the area or residual pain. Less common risks include, but are not limited to, , heart attack, permanent brain damage, stroke,pneumonia, blood clots, awareness, nerve stretch injury of your arm, neck or leg, permanent liver damage and allergic reaction to the medications. General Anesthesia -More common risks include temporary sore throat, pain in the neck or other muscles, dizziness, light-headedness, nausea and/or vomiting, and leakage of intravenous fluid into the tissues with swelling or discoloration of the area or residual pain. Less common risks include, but are not limited to,, heart attack, permanent brain damage, stroke, pneumonia, blood clots, irritation of the cornea of your eye, vision loss, loosened or broken teeth, or other oral injuries, awareness, nerve stretch injury of the arm, neck or leg, hoarseness, laryngospasm, permanent liver damage and allergic reaction to the medications. History of anesthesia complications: If you or a family member have had a complication related to anesthesia such as difficulty with placement of a breathing tube or a serious reaction to a medication administered for anesthesia, pleasetell your anesthesia provider. Having this information will help keep you safe while under anesthesia Nausea: A common side effect of anesthesia is nausea, but some patients do experience both nausea and vomiting. If you have experienced nausea or vomiting after anesthesia in the past, be sure to tell your anesthesia provider so medication can be given to help prevent it from happening again. Patient safety/consenting process: All surgical procedures and anesthetics have some small risks. They are dependent upon many factorsincluding the type of surgery and your medical condition. That is why it is important to know aboutany underlying medical problems, how they are treated and how they can be managed to reduce the risks of anesthesia and surgery. Thus, it is important for your anesthesia provider to ask detailed questions about your medical history, and to know what prescription medications you are taking, including dosages and schedules, as well as any over the counter or herbal medicines and supplements. You must notify the doctor of any of the following: -if you are or possibly -if you have any sensitivity to medications -present mental and physical condition -if recently consumed alcohol or non-clear liquids -if you are presently on psychiatric mood-altering drugs or other medications If you are a female of child-bearing age and you use any form of hormone-based contraception, please continue to use it and, in addition, use an alternative form of contraception, such as condoms andspermicide for a month after discharge from the hospital. This is because during the hospitalization you might receive one or more medications that may render hormone-based contraceptives ineffectivefor several days or weeks. The affected contraceptives include, but are not limited to, the usual contraceptive pills, most types of intrauterine devices, Depo-Provera shots, hormonal patches, and hormonal vaginal rings. If you are not sure, contact your primary care physician, your rand cementer, or your surgeon to check if this warning applies to you. You may need to have invasive monitoring, which includes the insertion of catheters into your veinsand arteries. This is done to measure pressures, to take blood samples, and may be used in emergentsituations for intravenous access. This monitoring has risks including, but not limited to, injury to your arteries, lung collapse, bleeding, nerve injury as well as the risks related to anesthesia. An esophageal probe may be used to monitor your heart, this monitor has risks which include sore throat, hoarseness, difficulty with swallowing, loosened or broken teeth and esophageal injury. Major complications are rare but could include , respiratory distress, an abnormal heartbeat, infection, and bleeding. As part of the consent to administer anesthesia authorization you will discuss the following with the anesthesia doctor and his/her associates: -your present condition and diagnosis as it pertains to anesthesia or sedation administration -a description of the proposed anesthetic/sedation technique or procedure to be used -significant risks and benefits of the proposed anesthetic/sedation technique or procedure -any applicable alternatives, including their risks and benefits -if applicable, use of back-up method of contraception for 30 days after discharge -if applicable, the option of having no treatment and the potential results of this -if your procedure is in an outpatient surgery setting-the risk associated with having this procedure in this type of setting should be discussed as well as the potential need for transfer to the hospital if necessary Please be sure to have all questions that you have answered prior to signing the consent to administer anesthesia. You can make your care safer by being an active, informed patient. It is important that you are involved in your health care. Being a good patient does not mean being a silent one. If you have questions, problems, safety concerns or unmet needs, please let us know if you would like further clarification of the "Patient Rights and Responsibilities" as they pertain to you, or would like more information regarding our complaint and for grievance process, please call the site where you receive care and request to speak withthe patient advocate line. [facility]: Contact # [phone] Directions to Surgical Suite in from the Dixie Entrance The Surgical Waiting Room can be found in the Lobby of [facility]. Enter through Main Lobby Entrance and the Waiting Room is directly in front of you. Proceed to check in and give them your name. Directions to Surgical Suite from the East Entrance Enter the East entrance and follow the hallway to the J elevator. Take the J elevator up to Level 1. Continue down the long hallway to the main [facility]. The Surgical Waiting Room will be on your Right. Proceed to check in and give them your Name. Directions to Surgical Suite from the Parking Garage Enter the [facility] lobby and proceed down the arias to the left. At the end of the arias, turn right. Continue down the long hallway to the main [facility]. The Surgical Waiting Room will be on your Right. Proceed to check in and give them your Name. THANK YOU FOR CHOOSING [facility]! documented in this encounter Plan of Treatment Upcoming Encounters Date Type Department Care Team (Late st Contact Info) Description 05/16/2023 1:30 PM EDT Cardiac Studies Cardiac Studies, [address] [address] 05/19/2023 1:30 PM EDT Office Visit Cardiology, [address] [address] Lila Burger CRNP [address] [place] [address] 05/24/2023 2:00 PM EDT Office Visit Podiatry [facility] [address] [facility] [place] [address] Eveline Layne DPM [address] [place] [address] 05/25/2023 9:30 AM EDT Appointment Radiology, [address] [address] 05/25/2023 10:00 AM EDT Procedure Only Urology, [address] [address] Luis Manuel Sandy MD [facility] [place] [address] 06/07/2023 2:30 PM EDT Office Visit Dermatology [facility] [address] [place] [address] Cyril Borges MD [address] [place] [address] 06/14/2023 1:00 PM EDT Office Visit Cosmetic Surgery & Aesthetics [facility] [address] [place] [address] Conor Venegas PA-C [address] [place] [address] 06/19/2023 1:30 PM EDT Nurse Only Rheumatology [address] [place] [address] Pf, Nurse Rheum [address] [place] [address] [place] [address] 06/27/2023 1:20 PM EDT Office Visit Family Practice [facility] [address] [facility] [place] [address] Nikunj Plascencia MD [address] [place] [address] 07/03/2023 2:00 PM EDT Office Visit Nephrology, Jason Salas [address] [place] [address] Geovanni Linder MD [address] [place] [address] 07/13/2023 2:30 PM EDT Office Visit [facility], [facility] [address] Keegan [facility] [address] [facility] [place] [address] 09/27/2023 8:30 AM EDT Appointment Radiology, [place] [address] [place] [address] 09/27/2023 9:30 AM EDT Office Visit Urology, [place] [address] [place] [address] Luis Manuel Sandy MD [address] [place] [address] 12/20/2023 2:30 PM EDT Imaging Radiology, [address] [place] [address] 12/20/2023 3:20 PM EDT Office Visit Rheumatology [address] [place] [address] John Yoder MD [address] [place] [address] [place] [address] Pending Results Name Type Priority Associated Diagnoses Date /Time STONE ANALYSIS Lab Routine Renal calculi 05/01/2023 1:04 PM EDT Scheduled Orders Name Type Priority Associated Diagnoses Orde r Schedule STONE ANALYSIS Lab Routine Renal calculi Release Upon Ordering for 1 Occurrences starting 05/01/2023 Scheduled Procedures Name Priority Associated Diagnoses Date/Ti [...] D LEVEL ONCE IN A LIFETIME-USE SMARTSET# 72157 Completed 06/10/2022, 05/28/2021, 06/20/2020, Additional history exists [...] this encounter Medical Devices Implanted Type Area Drywall Sprayer Device Identifier Shelf Expiration Date Model / Serial / Lot Kyphon Hv-R Bone Cement Implanted:Qty: 1 on 08/17/2016 by Michael Smith MD at OR [facility] N/A: Spine Thoracic 03/19/2019 C01A / [id number] / [id number] Cement Bone Lv G 1119-140-01 - [id number] Implanted:Qty: 1 on 06/04/2018 by Duc Kimble MD at OR [facility] Right: Knee [employer] 11/19/2020-1119-1 40-01 / / [id number] Cement Bone Lv G 1119-140-01 - [id number] Implanted:Qty: 1 on 06/04/2018 by Duc Kimble MD at OR [facility] Right: Knee [employer] 06/19/2020-1119-1 40-01 / / [id number] Persona The Personlized Knee System Vivacit-E Highly Crosslinked Polyethylene All-Poly Patella Cemented Implanted:Qty: 1 on 06/04/2018 by Duc Kimble MD at OR [facility] Right: Knee [employer] 06/19/2022 [id number] 00-35 / / [id number] Tibia Stem 5 Deg Rt Size F - [id number] Implanted:Qty: 1 on 06/04/2018 by Duc Kimble MD at OR [facility] Right: [employer]nee [employer] 10/21/2027 [id number] 75-02 / / [id number] Persona The Personalized Knee System Femur Cemented Cr Standard Implanted:Qty: 1 on 06/04/2018 by Duc Kimlbe MD at OR [facility] Right: [employer]nee [employer] 11/20/2027 42-5026-0 62-02 / / [id number] Persona The Personalized Knee System Vivacit-E Highly Crosslinked Polyethylene Articular Surface Medial Congruent Implanted:Qty: 1 on 06/04/2018 by Duc Kimble MD at OR [facility] Right: Knee [employer] 11/19/2022 [id number] 07-12 / / [id number] Device Watchman Flx 24mm - [id number] Implanted:Qty: 1 on 10/06/2022 by Austin Penaloza MD at CARDIAC LABS [facility] [employer] : INTRV CARD [id number] 03/07/2025 [id number] 40 / / [id number] Device Watchman Flx 27mm - [id number] Implanted:Qty: 1 on 10/06/2022 by Austin Penaloza MD at CARDIAC LABS [facility] [employer] : INTRV CARD [id number] 08/07/2025 [id number] 70 / / [id number] documented as of this encounter Procedures Procedure Name Priority Date/Time Associated Diagnosis Comments XR INTRA-OP C-ARM CASE Routine 05/01/2023 1:19 PM EDT GLUCOSE METER, POINT OF CARE REJI 05/01/2023 12:39 PM EDT documented in this encounter Results * XR INTRA-OP C-ARM CASE (05/01/2023 1:19 PM EDT) Narrative Scheduling, Silent - 05/01/2023 1:20 PM EDT This procedure will not be read by a Radiologist. Please see operative note. Luis Manuel Sandy MD RADIOLOGY (RAD GENER AL) * GLUCOSE METER, POINT OF CARE (05/01/2023 12:39 PM EDT) Glucose Meter 83 70 - 120 mg/dL 05/01/2023 12:43 PM EDT [facility] Blood Whole blood specimen / Unknown 05/01/2023 12:39 PM EDT 05/01/2023 12:43 PM EDT Luis Manuel Sandy MD LAB POINT OF CARE TE ST DOCKED DEVICE UNSOLICITED RESULTS [facility] [address] [place] [address] documented in this encounter Visit Diagnoses Diagnosis Renal calculi Calculus of kidney documented in this encounter Administered Medications Inactive Administered Medications - up to 3 most recent administrations Medication Order MAR Action Action Date Dose Rate Site Acetaminophen (Tylenol) tab 975 mg 975 mg, Oral, PREOP, First dose on Mon05/01/23 at 1230, Last dose on Mon05/01/23 at 1230, For 1 dose, Maximum 4 g acetaminophen/day. Avoid in patients with severe hepatic impairment or severe active liver disease. Administer 60 minutes prior to OR., Pre-Op Given 05/01/2023 12:29 PM EDT 975 mg fentaNYL (PF) inj 50 mcg 50 mcg, IV Push, Q5 MIN PRN Pain, Moderate, Starting on Mon05/01/23 at 1355, Until Mon05/01/23 at 1934, Administer up to a total of 200mcg. Administer only postop in PACU When given IV Push its recommended that the dose be given over 3 to 5 minutes., PACU HYDROmorphone (Dilaudid) inj 0.5 mg 0.5 mg, IV Push, Q15 MIN PRN Pain, Severe, Starting on Mon05/01/23 at 1355, Until Mon05/01/23 at 1934, Administer only postop in PACU. Hold for respiratory rate less than 12. Administer up to a total of 2mg., PACU Given 05/01/2023 2:13 PM EDT 0.5 mg Given 05/01/2023 1:59 PM EDT 0.5 mg isolyte-S pH 7.4 infusion Intravenous, Plasma-LYTE 148, isolyte-S, and isolyte-S pH 7.4 are considered equivalent - including for MAR barcode scanning., CONTINUOUS, Starting on Mon05/01/23 at 1230, Until Mon05/01/23 at 1934, Pre-Op New Bag 05/01/2023 12:36 PM EDT New Bag 05/01/2023 12:30 PM EDT 1,000 mL 25 mL/hr oxygen GAS Inhalation, OXYGEN, First dose on Mon05/01/23 at 1600, Until Discontinued, Device/Managed by: Low Flow Device, Goal SPO2 (%): 91-95, Starting Device: Nasal Cannula, Initial Flow Rate (LPM): 2, Lowest Support: Nasal Cannula: Flow 0-6 LPM. Titrate up/down by 1 LPM., Higher Support: Non-Rebreather (NRB) Mask: Minimum of 10 LPM. Titrate to maintain bag inflation., Titration Interval: Q2 minutes and as needed., Notify Provider: Other, Notify Provider [other]: If SpO2 less than 88% or NOT maintaining SpO2 greater than 92% notify physician immediately., Until awake OR SpO2 greater than 95% for 15 minutes, then Titrate O2 flow rate down to maintain SpO2 greater than 92% If SpO2 is less than 88% place patient on NRB mask at 10 LPM Oxygen On 05/01/2023 2:20 PM EDT 2 L/min(Oxygen) documented in this encounter Active and Recently Administered Medications Due to Daylight Saving Time, this section may contain times in both EST and EDT. Scheduled Medication Order 04/29/2023 04/30/2023 05/01/2023 Acetaminophen (Tylenol) tab 975 mg (COMPLETED) 975 mg, Oral, PREOP, First dose on Mon05/01/23 at 1230, Last dose on Mon05/01/23 at 1230, For 1 dose, Maximum 4 g acetaminophen/day. Avoid in patients with severe hepatic impairment or severe active liver disease. Administer 60 minutes prior to OR., Pre-Op 1229 (Given - Provid er: Natalie Pierce RN) ceFAZolin (Ancef) in NSS ivpb 3 g (COMPLETED) 3 g, IV Piggyback, ONCALL, 1 dose, Starting on Mon05/01/23 at 1151, Until Discontinued 1248 (Given - Provid er: FRITZ [place]) cloNIDine (Duraclon) inj 100 mcg 100 mcg, IV Push, ONCE, On Mon05/01/23 at 1430, For 1 dose, Administer only postop in PACU, PACU 1430 (Due) oxygen GAS Inhalation, OXYGEN, First dose on Mon05/01/23 at 1600, Until Discontinued, Device/Managed by: Low Flow Device, Goal SPO2 (%): 91-95, Starting Device: Nasal Cannula, Initial Flow Rate (LPM): 2, Lowest Support: Nasal Cannula: Flow 0-6 LPM. Titrate up/down by 1 LPM., Higher Support: Non-Rebreather (NRB) Mask: Minimum of 10 LPM. Titrate to maintain bag inflation., Titration Interval: Q2 minutes and as needed., Notify Provider: Other, Notify Provider [other]: If SpO2 less than 88% or NOT maintaining SpO2 greater than 92% notify physician immediately., Until awake OR SpO2 greater than 95% for 15 minutes, then Titrate O2 flow rate down to maintain SpO2 greater than 92% If SpO2 is less than 88% place patient on NRB mask at 10 LPM 1420 (Oxygen On - Pr ovider: Briana Monroy RN)1455 (Oxygen Off - Provider: Briana Monroy RN) Continuous Medication Order 04/29/2023 04/30/2023 05/01/2023 isolyte-S pH 7.4 infusion Intravenous, Plasma-LYTE 148, isolyte-S, and isolyte-S pH 7.4 are considered equivalent - including for MAR barcode scanning., CONTINUOUS, Starting on Mon05/01/23 at 1230, Until Mon05/01/23 at 1934, Pre-Op 1230 (New Bag - Prov ider: Natalie Pierce RN)1235 (Paused - Provider: FRITZ [place] - Comment: Switch to gravity)1236 (New Bag - Provider: FRITZ [place])1241 (Anes Intra-Op Fluid - Provider: FRITZ Johnson)1256 (Anes Intra-Op Fluid - Provider: FRITZ Johnson)1318 (Anes Intra-Op Fluid - Provider: FRITZ [place]) PRN Medication Order 04/29/2023 04/30/2023 05/01/2023 fentaNYL (PF) inj 50 mcg 50 mcg, IV Push, Q5 MIN PRN Pain, Moderate, Starting on Mon05/01/23 at 1355, Until Mon05/01/23 at 1934, Administer up to a total of 200mcg. Administer only postop in PACU When given IV Push its recommended that the dose be given over 3 to 5 minutes., PACU HYDROmorphone (Dilaudid) inj 0.5 mg 0.5 mg, IV Push, Q15 MIN PRN Pain, Severe, Starting on Mon05/01/23 at 1355, Until Mon05/01/23 at 1934, Administer only postop in PACU. Hold for respiratory rate less than 12. Administer up to a total of 2mg., PACU 1359 (Given - Provid er: Lanny Tafoya RN)1413 (Given - Provider: Lanny Tafoya RN) sodium chloride IR 0.9 % irrigation (CANCELED) ONCE PRN INTRA PROCEDURE, Starting on Mon05/01/23 at 1304, Until Mon05/01/23 at 1317, Intra-Op 1304 (Given - Provid er: Luis Manuel Sandy MD - Comment: PRN cysto) documented in this encounter Advance Directives Latest [...] the patient have Health Care Power of Skeins Yarn Examiner? No Care Teams Aviation Technician Relationship Specialty Start Date End Date Nikunj Plascencia MD [address] [place] [id number] PCP - General Family Medicine 10/31/19 documented as of this encounter
--- OUTSIDE RECORDS SUMMARY | 2023-07-29 04:10 | External Medical Summary | Summary of Care ---
Author Name Unknown Organization [facility] Address [address] [place] [address] Phone [phone] Care Team Providers Care Supervisor Finish End Name Role Phone Nikunj Plascencia MD Primary Care Provider [phone] Reason for Visit * Reason Onset Date Comments Pre Cert/Prior Auth 05/11/2023 PACE prior a [facility] for [place] Encounter Details Date Type Department Care Team (Late st Contact Info) Description 05/11/2023 Telephone Family Practice [facility] [address] [facility] [address] Nikunj Plascencia MD 132 [place] [address] Pre Cert/Prior Auth (PACE prior auth [...] Particles (Cymbalta) 0 06/20/2022 Active Saline Nasal [place] 0.65 % Nasal Solution ([place]) Q6H 0 06/06/2022 Active Clobetasol Propionate 0.05 [...] stone 03/21/2023 Food insecurity 01/02/2023 Overview: Per [facility] Protocol Presence of Watchman left atrial appendage closu re device 12/19/2022 PAF (paroxysmal atrial fibrillation) 08/17/2022 Overview: Added automatically from request for surgery [id number] Nasal septal perforation 06/13/2022 Overview: Per ENT [...] 140/90 12/12/201111/09 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 07/30/2018 Overview: [place] palsy Tinea 06/27/2011 07/30/2018 Mixed urge and stress incontinence 12/15/2008 10/08/2019 ADVANCE DIRECTIVE INFORMATION 06/17/2004 10/08/2019 documented as of this encounter (statuses as of 05/11/2023) Immunizations Name Administration Dates Next Due COVID-19 mRNA, LNP-s, No Pre serve, 2-Dose Series ([employer]) 10/05/2020,09/14/2020 Covid-19, Mrna, Lnp-s, Pf, B ivalent, 30 Mcg, IM, 12 yrs and above ([employer]) 05/26/2022 Pneumococcal Conjugate Vacc, 13 Valent (Prevnar) 05/30/2016 Pneumococcal Conjugate Vacci ne, 20-valent ([id number]) 04/03/2023 Seasonal Influenza Virus Vac cine, Unspecified [...] insurance (PACE) information obtained for prior auth. ID-[id number] [id number] [employer] PHONE#[phone] PACE application completed and faxed in. Application placed in scanning. Will wait for response. documented in this encounter Plan of Treatment Upcoming Encounters Date Type Department Care Team (Late st Contact Info) Description 05/16/2023 1:30 PM EDT Cardiac Studies Cardiac Studies, [facility] [address] [place] [address] 05/17/2023 11:00 AM EDT Office Visit Wound Care, [facility] [address] [place] [address] PA-C 310 [facility] Noah [address] [place] [address] 05/19/2023 1:30 PM EDT Office Visit Cardiology, [facility] [address] [place] [address] Lila Burger CRNP [address] [place] [address] 05/24/2023 2:00 PM EDT Office Visit Podiatry [facility] [address] [place] [address] Eveline Layne DPM [address] [place] [address] 05/25/2023 9:30 AM EDT Appointment Radiology, [place] [address] [place] [phone] 05/25/2023 10:00 AM EDT Procedure Only Urology, [place] [address] [place] [address] Luis Manuel Sandy MD [address] [place] [address] 06/07/2023 2:30 PM EDT Office Visit Dermatology [facility] [address] [place] [address] Cyril Borges MD [address] [place], [place] [id number] 06/14/2023 1:00 PM EDT Office Visit Cosmetic Surgery & Aesthetics [facility] [address] [place] [address] Conor Venegas PA-C [address] [place] [address] 06/19/2023 1:30 PM EDT Nurse Only Rheumatology [facility] [address] [facility] [place] [address] Pf, Nurse Rheum [address] [facility] [place], [place] [address] 06/27/2023 1:20 PM EDT Office Visit Family Practice [facility] [address] [place] [address] Nikunj Plascencia MD [address] [place] [address] 07/03/2023 2:00 PM EDT Office Visit Nephrology, [facility] [address] [facility] [place] [address] Geovanni Linder MD [address] [place] [address] 07/13/2023 2:30 PM EDT Office Visit Pharmacy, [facility] [address] [place] [address] [facility] [address] [place] [address] 09/27/2023 8:30 AM EDT Appointment Radiology, [address] [id number] 09/27/2023 9:30 AM EDT Office Visit Urology, [place] [address] [place], [place] [phone] Luis Manuel Sandy MD [address] [place], [place] [address] 12/20/2023 2:30 PM EDT Imaging Radiology, [place] [address] [facility] [place] [address] 12/20/2023 3:20 PM EDT Office Visit Rheumatology [address] [place] [address] John Yoder MD [address] [place] [address] [place] [address] Scheduled Procedures Name Priority Associated Diagnoses Date/Ti [...] D LEVEL ONCE IN A LIFETIME-USE SMARTSET# 37117 Completed 06/10/2022, 05/28/2021, 06/20/2020, Additional history exists [...] this encounter Medical Devices Implanted Type Area Decision Support Analyst Device Identifier Shelf Expiration Date Model / Serial / Lot Kyphon Hv-R Bone Cement Implanted:Qty: 1 on 08/17/2016 by Michael Smith MD at OR [facility] N/A: Spine Thoracic 03/19/2019 C01A / C01A / [id number] Cement Bone Lv G 1119-140-01 - [id number] Implanted:Qty: 1 on 06/04/2018 by Duc Kimble MD at OR [facility] Right: Knee [employer] 11/19/2020 00-1119-1 40- / / [id number] Cement Bone Lv G 1119-140-01 - [id number] Implanted:Qty: 1 on 06/04/2018 by Duc Kimble MD at OR [facility] Right: Knee [employer] 06/19/2020-1119-1 40- / / [id number] Persona The Personlized Knee System Vivacit-E Highly Crosslinked Polyethylene All-Poly Patella Cemented Implanted:Qty: 1 on 06/04/2018 by Duc Kimble MD at OR [facility] Right: Knee [employer] 06/19/2022 42-5402-0 00-35 / / [id number] Tibia Stem 5 Deg Rt Size F - [id number] Implanted:Qty: 1 on 06/04/2018 by Duc Kimble MD at OR [facility] Right: Knee [employer] 10/21/2027 42-5320-0 75-02 / / [id number] Persona The Personalized Knee System Femur Cemented Cr Standard Implanted:Qty: 1 on 06/04/2018 by Duc Kimble MD at OR [facility] Right: Knee [employer] 11/20/2027 42-5026-0 62-02 / / [id number] Persona The Personalized Knee System Vivacit-E Highly Crosslinked Polyethylene Articular Surface Medial Congruent Implanted:Qty: 1 on 06/04/2018 by Duc Kimble MD at OR [facility] Right: Knee [employer] 11/19/2022 42-5221-0 07-12 / / [id number] Device Watchman Flx 24mm - [id number] Implanted:Qty: 1 on 10/06/2022 by Austin Penaloza MD at [facility] [employer] : INTRV CARD [id number] 03/07/2025 [id number] 40 / / [id number] Device Watchman Flx 27mm - [id number] Implanted:Qty: 1 on 10/06/2022 by Austin Penaloza MD at [facility] [employer] : INTRV CARD [id number] 08/07/2025 [id number] 70 / / [id number] documented as of this encounter Advance Directives [...] the patient have Health Care Power of Er Nurse? No Care Teams Supervisor Finish End Relationship Specialty Start Date End Date Nikunj Plascencia MD [address] [place] [address] PCP - General Family Medicine 10/31/19 documented as of this encounter
--- OUTSIDE RECORDS SUMMARY | 2023-07-29 04:11 | External Medical Summary | Summary of Care ---
Author Name Unknown Organization [facility] Address [address] [place] [address] Phone [phone] Care Team Providers Care Technology Specialist Name Role Phone Nikunj Plascencia MD Primary Care Provider [phone] Reason for Visit * Reason Onset Date Comments Medication Refill 04/12/2023 Encounter Details Date Type Department Care Team (Late st Contact Info) Description 04/12/2023 Refill Urology, [place] [address] [place], [place] [phone] Keren Das PA-C [address] [place], [place] [phone] Allergies Active Allergy Reactions Criticality Noted Date Comments Egg Shells Nausea/vomiting Medium 06/16/2018 Other reaction(s): GI SYMPTOMS Egg Yolk High 11/29/2019 Other reaction(s): GI upset Ibuprofen Other (Please comment) Medium 07/30/2010 Stomach upset Morphine Edema face/lips/tongue High 08/28/2021 Other reaction(s): LEGS SWELL documented as of this encounter (statuses as of 04/12/2023) Medications Medication Sig Dispensed Refills Start Date [...] Particles (Cymbalta) 0 06/20/2022 Active Saline Nasal [place] 0.65 % Nasal Solution ([place]) Q6H 0 06/06/2022 Active Clobetasol Propionate 0.05 [...] Pain, Moderate. 20 Tablet 0 04/12/2023 Active oxyCODONE-Acetamino phen 5-325 MG Oral Tablet (Percocet) Take 1 Tablet by mouth every 4 hours as needed for Pain, Moderate. 20 Tablet 0 03/31/2023 Discontinu ed(Refill) Hospital, Clinic, or Other Facility Administered Medication Ordered Dose Route Frequency Start Date End Date Status atropine sulfate inj 0.4 mgIndications:Chest pain, unspecified type 0.4 mg IV PUSH PRN 01/29/2021 Active documented as of this encounter (statuses as of 04/12/2023) Active Problems Problem Noted Date Diagnosed Date Renal stone 03/21/2023 Food insecurity 01/02/2023 Overview: Per [facility] Protocol Presence of Watchman left atrial appendage closu re device 12/19/2022 PAF (paroxysmal atrial fibrillation) 08/17/2022 Overview: Added automatically from request for surgery [id number] Nasal septal perforation 06/13/2022 Overview: Per ENT [...] as of this encounter (statuses as of 04/12/2023) Resolved Problems Problem Noted Date Diagnosed Date [...] 140/90 12/12/201111/09 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 07/30/2018 Overview: [place] palsy Tinea 06/27/2011 07/30/2018 Mixed urge and stress incontinence 12/15/2008 10/08/2019 ADVANCE DIRECTIVE INFORMATION 06/17/2004 10/08/2019 documented as of this encounter (statuses as of 04/12/2023) Immunizations Name Administration Dates Next Due COVID-19 mRNA, LNP-s, No Pre serve, 2-Dose Series ([employer]) 10/05/2020,09/14/2020 Covid-19, Mrna, Lnp-s, Pf, B ivalent, 30 Mcg, IM, 12 yrs and above ([employer]) 05/26/2022 Pneumococcal Conjugate Vacc, 13 Valent (Prevnar) 05/30/2016 Pneumococcal Conjugate Vacci ne, 20-valent ([id number]) 04/03/2023 Seasonal Influenza Virus Vac cine, Unspecified [...] encounter Miscellaneous Notes * Telephone Encounter - Keren Das PA-C - 04/12/2023 3:05 PM ESTSigned Prescriptions: Disp Refills oxyCODONE-Acetaminophen 5-325 MG Oral Tabl*20 Tab*0 Sig: Take 1 Tablet by mouth every 4 hours as needed for Pain, Moderate. Authorizing Provider: KEREN DAS * Telephone Encounter - Dhara Hairston OSA - 04/12/2023 2:22 PM ESTPending Prescriptions: Disp Refills oxyCODONE-Acetaminophen 5-325 MG Oral Tabl*20 Tab*0 Sig: Take 1Tablet by mouth every 4 hours as needed for Pain, Moderate. documented in this encounter Plan of Treatment Upcoming Encounters Date Type Department Care Team (Latest Contact Info) Description 04/13/2023 2:00 PM EST [facility] [address] [place] [address] [facility] [address] [place] [address] 05/01/2023 3:07 PM EDT Hospital Encounter [place] [facility] [address] [place] [address] Luis Manuel Sandy MD [address] [place] [address] 05/01/2023 3:07 PM EDT - 05/01/2023 4:43 PM EDT Surgery [place] [facility] [address] [place] [address] Luis Manuel Sandy MD [address] [place] [address] CYSTOURETHROSCOPY URETEROSCOPY WITH LITHOTRIPSY AND STENT INSERTION 05/16/2023 1:30 PM EDT Cardiac Studies Cardiac Studies, [facility] [address] [place] [address] 05/19/2023 1:30 PM EDT Office Visit Cardiology, [facility] [address] [place] [address] Lila Burger CRNP [address] [place] [phone] 05/24/2023 2:00 PM EDT Office Visit Podiatry [facility] [address] [place] [address] Eveline Layne, JAMAL [address] [place] [address] 05/25/2023 9:30 AM EDT Appointment Radiology, [place] [address] [place] [address] 05/25/2023 10:00 AM EDT Procedure Only Urology, [place] [address] [place] [address] Luis Manuel Sandy MD [address] [place], [place] [phone] 06/07/2023 2:30 PM EDT Office Visit Dermatology [facility] [address] [place] [address] Cyril Borges MD [address] [place] [address] 06/14/2023 1:00 PM EDT Office Visit Cosmetic Surgery & Aesthetics [facility] [address] [place], [place] [phone] Conor Venegas PA-C [address] [place], [place] [address] 06/19/2023 1:30 PM EDT Nurse [address] [address] Pf, Nurse Rheum [address] [place] [address] [place] [address] 06/27/2023 1:20 PM EDT Office Visit Family Practice [facility] [address] [place] [address] Nikunj Plascencia MD [address] [place] [address] 07/03/2023 2:00 PM EDT Office Visit Nephrology, [facility] [address] [facility] [place] [address] Geovanni Linder MD [address] [facility] [place] [address] 09/27/2023 8:30 AM EDT Appointment Radiology, [address] [address] 09/27/2023 9:30 AM EDT Office Visit Urology, [place] [address] [place] [address] Luis Manuel Sandy MD [facility] [address] [place], [place] [address] 12/20/2023 2:30 PM EDT Imaging Radiology, [address] [place] [address] 12/20/2023 3:20 PM EDT Office Visit Rheumatology [address] [place] [address] John Yoder MD [address] [place] [address] [place], [place] [address] Scheduled Procedures Name Priority Associated Diagnoses Date/Ti me CYSTOURETHROSCOPY URETEROSCOPY WITH LITHOTRIPSY AND STENT INSERTION Renal calculi 05/01/2023 3:07 PM EDT ROBOTIC ARTHROPLASTY KNEE TOTAL Knee [...] D LEVEL ONCE IN A LIFETIME-USE SMARTSET# 17625 Completed 06/10/2022, 05/28/2021, 06/20/2020, Additional history exists [...] this encounter Medical Devices Implanted Type Area Timing Adjuster Device Identifier Shelf Expiration Date Model / Serial / Lot Kyphon Hv-R Bone Cement Implanted:Qty: 1 on 08/17/2016 by Michael Smith MD [place] [facility] N/A: Spine Thoracic 03/19/2019 C01A / C01A / [id number] Cement Bone Lv G 1119-140-01 - [id number] Implanted:Qty: 1 on 06/04/2018 by Duc Kimble MD at OR [facility] Right: Knee [employer] 11/19/2020-1119-1 40-01 / / [id number] Cement Bone Lv G 1119-140-01 - [id number] Implanted:Qty: 1 on 06/04/2018 by Duc Kimble MD at OR [facility] Right: Knee [employer] 06/19/2020-1119-1 40-01 / / [id number] Persona The Personlized Knee System Vivacit-E Highly Crosslinked Polyethylene All-Poly Patella Cemented Implanted:Qty: 1 on 06/04/2018 by Duc Kimble MD at OR [facility] Right: [employer]nee [employer] 06/19/2022 42-5402-0 00-35 / / [id number] Tibia Stem 5 Deg Rt Size F - [id number] Implanted:Qty: 1 on 06/04/2018 by Duc Kimble MD at OR [facility] Right: [employer]nee [employer] 10/21/2027 42-5320-0 75-02 / / [id number] [employer] Personalized Knee System Femur Cemented Cr Standard Implanted:Qty: 1 on 06/04/2018 by Duc Kimble MD at OR [facility] Right: [employer] 11/20/2027 42-5026-0 62-02 / / [id number] Person[employer] Personalized Knee System Vivacit-E Highly Crosslinked Polyethylene Articular Surface Medial Congruent Implanted:Qty: 1 on 06/04/2018 by Duc Kimble MD at OR [facility] Right: [employer]nee [employer] 11/19/2022 42-5221-0 07-12 / / [id number] Device Watchman Flx 24mm - [id number] Implanted:Qty: 1 on 10/06/2022 by Austin Penaloza MD at [facility] [employer] : INTRV CARD [id number] 03/07/2025 [id number] 40 / / [id number] Device Watchman Flx 27mm - [id number] Implanted:Qty: 1 on 10/06/2022 by Austin Penaloza MD at [facility] [employer] : INTRV CARD [id number] 08/07/2025 [id number] 70 / / [id number] documented as of this encounter Advance Directives [...] the patient have Health Care Power of Emergency Management Director? No Care Teams Technology Specialist Relationship Specialty Start Date End Date Nikunj Plascencia MD [address] [place] [address] PCP - General Family Medicine 10/31/19 documented as of this encounter
--- OUTSIDE RECORDS SUMMARY | 2023-07-29 04:11 | External Medical Summary | Summary of Care ---
Author Name Unknown Organization [facility] Address [address] [place] [address] Phone [phone] Care Team Providers Care Pool Technician Name Role Phone Niknuj Plascencia MD Primary Care Provider [phone] Encounter Details Date Type Department Care Team (Late st Contact Info) Description 04/10/2023 Orders Only Outcomes Research Department [address] [place] [address] Briana Howard CHRA MyCode Research Other*[id number] Allergies Active Allergy Reactions Criticality Noted Date Comments Egg Shells Nausea/vomiting Medium 06/16/2018 Other reaction(s): GI SYMPTOMS Egg Yolk High 11/29/2019 Other reaction(s): GI upset Ibuprofen Other (Please comment) Medium 07/30/2010 Stomach upset Morphine Edema face/lips/tongue High 08/28/2021 Other reaction(s): LEGS SWELL documented as of this encounter (statuses as of 04/10/2023) Medications Medication Sig Dispensed Refills Start Date [...] Particles (Cymbalta) 0 06/20/2022 Active Saline Nasal [place] 0.65 % Nasal Solution ([place]) Q6H 0 06/06/2022 Active Clobetasol Propionate [...] 12 hours. 5.5 mL 5 02/15/2023 Active oxyCODONE-Acetaminop hen 5-325 MG Oral Tablet (Percocet) Take 1 Tablet by mouth every 4 hours as needed for Pain, Moderate. 20 Tablet 0 03/31/2023 Active Doxepin HCl 25 MG Oral Capsule (SINEquan) Take 1 Capsule by mouth at bedtime. 0 03/29/2023 Active Tamsulosin HCl 0.4 MG Oral Capsule (Flomax) Take 1 Capsule by mouth in the morning. 90 Capsule 3 04/03/2023 Active Hospital, Clinic, or Other Facility Administered Medication Ordered Dose Route Frequency Start Date End Date Status atropine sulfate inj 0.4 mgIndications:Chest pain, unspecified type 0.4 mg IV PUSH PRN 01/29/2021 Active documented as of this encounter (statuses as of 04/10/2023) Active Problems Problem Noted Date Diagnosed Date Renal stone 03/21/2023 Food insecurity 01/02/2023 Overview: Per [facility] Protocol Presence of Watchman left atrial appendage closu re device 12/19/2022 PAF (paroxysmal atrial fibrillation) 08/17/2022 Overview: Added automatically from request for surgery [id number] Nasal septal perforation 06/13/2022 Overview: Per ENT [...] as of this encounter (statuses as of 04/10/2023) Resolved Problems Problem Noted Date Diagnosed Date [...] 140/90 12/12/201111/09 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 07/30/2018 Overview: [place] palsy Tinea 06/27/2011 07/30/2018 Mixed urge and stress incontinence 12/15/2008 10/08/2019 ADVANCE DIRECTIVE INFORMATION 06/17/2004 10/08/2019 documented as of this encounter (statuses as of 04/10/2023) Immunizations Name Administration Dates Next Due COVID-19 mRNA, LNP-s, No Pre serve, 2-Dose Series ([facility]) 10/05/2020,09/14/2020 Covid-19, Mrna, Lnp-s, Pf, B ivalent, 30 Mcg, IM, 12 yrs and above (Pfizer) 05/26/2022 Pneumococcal Conjugate Vacc, 13 Valent (Prevnar) 05/30/2016 Pneumococcal Conjugate Vacci ne, 20-valent ([id number]) 04/03/2023 Seasonal Influenza Virus Vac cine, Unspecified [...] 04/13/2023 2:00 PM EST Office Visit Pharmacy, [facility] [address] [facility] [place] [address] [facility] 132 [facility] [place] [address] 05/01/2023 3:07 PM EDT Hospital Encounter OR C, OPERATING ROOM [facility] [address] [facility] [address] Luis Manuel Sandy MD [address] [place] [address] 05/01/2023 3:07 PM EDT - 05/01/2023 4:43 PM EDT Surgery OR C, OPERATING ROOM [facility] [address] [place] [address] Luis Manuel Sandy MD [address] [place] [address] CYSTOURETHROSCOPY URETEROSCOPY WITH LITHOTRIPSY AND STENT INSERTION 05/16/2023 1:30 PM EDT Cardiac Studies Cardiac Studies, [address] [address] 05/19/2023 1:30 PM EDT Office Visit Cardiology, [address] [address] Lila Burger CRNP [address] [place] [phone] 05/24/2023 2:00 PM EDT Office Visit Podiatry [address] [address] Eveline Layne DPM [address] [place] [address] 05/25/2023 9:30 AM EDT Appointment Radiology, [place] [address] [place] [phone] 05/25/2023 10:00 AM EDT Procedure Only Urology, [place] [address] [place] [address] Luis Manuel Sandy MD [address] [place] [address] 06/07/2023 2:30 PM EDT Office Visit Dermatology [address] [address] Cyril Borges MD [address] [place] [address] 06/14/2023 1:00 PM EDT Office Visit Cosmetic Surgery & Aesthetics [address] [place] [address] Conor Venegas PA-C [address] [place] [address] 06/19/2023 1:30 PM EDT Nurse Only Rheumatology [address] [place] [address] Pf, Nurse Rheum [address] [place] [address] [place] [address] 06/27/2023 1:20 PM EDT Office Visit Family Practice [facility] 132 [place] [address] Nikunj Plascencia MD [address] [place] [address] 07/03/2023 2:00 PM EDT Office Visit Nephrology, [facility] [address] [place] [address] Geovanni Linder MD 200 [facility] [place] [address] 09/27/2023 8:30 AM EDT Appointment Radiology, [place] [address] [place] [address] 09/27/2023 9:30 AM EDT Office Visit Urology, [place] [address] [place] [address] Luis Manuel Sandy MD [address] [place] [address] 12/20/2023 2:30 PM EDT Imaging Radiology, [address] [place] [address] 12/20/2023 3:20 PM EDT Office Visit Rheumatology [address] [place] [address] John Yoder MD [address] [place] [address] [place] [address] Scheduled Orders Name Type Priority Associated Diagnoses Orde r Schedule MYCODE SUBSEQUENT ADULT Lab Routine MyCode Research Other*[id number] Every 6 Months for 2 Occurrences starting 04/10/2023 until 04/29/2024 Scheduled Procedures Name Priority Associated Diagnoses Date/Ti [...] D LEVEL ONCE IN A LIFETIME-USE SMARTSET# 95751 Completed 06/10/2022, 05/28/2021, 06/20/2020, Additional history exists [...] this encounter Medical Devices Implanted Type Area Equipment Tech Device Identifier Shelf Expiration Date Model / Serial / Lot Kyphon Hv-R Bone Cement Implanted:Qty: 1 on 08/17/2016 by Michael Smith MD at OR [facility] N/A: Spine Thoracic 03/19/2019 C01A / C01A / [id number] Cement Bone Lv G 1119-140-01 - [id number] Implanted:Qty: 1 on 06/04/2018 by Duc Kimble MD at OR [facility] Right: Knee [employer] 11/19/2020-1119-1 40-01 / / [id number] Cement Bone Lv G 1119-140-01 - [id number] Implanted:Qty: 1 on 06/04/2018 by Duc Kimble MD at OR [facility] Right: Knee [employer] 06/19/2020-1119-1 40- / / [id number] Persona The Personlized Knee System Vivacit-E Highly Crosslinked Polyethylene All-Poly Patella Cemented Implanted:Qty: 1 on 06/04/2018 by Duc Kimble MD at OR [facility] Right: Knee [employer] 06/19/2022 42-5402-0 00-35 / / [id number] Tibia Stem 5 Deg Rt Size F - [id number] Implanted:Qty: 1 on 06/04/2018 by Duc Kimble MD at OR [facility] Right: Knee [employer] 10/21/2027 42-5320-0 75-02 / / [id number] Persona The Personalized Knee System Femur Cemented Cr Standard Implanted:Qty: 1 on 06/04/2018 by Duc Kimble MD at OR [facility] Right: Knee [employer] 11/20/2027 42-5026-0 62-02 / / [id number] Persona The Personalized Knee System Vivacit-E Highly Crosslinked Polyethylene Articular Surface Medial Congruent Implanted:Qty: 1 on 06/04/2018 by Duc Kimble MD at OR [facility] Right: Knee [employer] 11/19/2022 42-5221-0 07-12 / / [id number] Device Watchman Flx 24mm - [id number] Implanted:Qty: 1 on 10/06/2022 by Austin Penaloza MD at CARDIAC LABS [facility] [employer] : INTRV CARD [id number] 03/07/2025 [id number] 40 / / [id number] Device Watchman Flx 27mm - [id number] Implanted:Qty: 1 on 10/06/2022 by Austin Penaloza MD at CARDIAC LABS [facility] [employer] : INTRV CARD [id number] 08/07/2025 [id number] 70 / / [id number] documented as of this encounter Visit Diagnoses Diagnosis MyCode Research Other*[id number] Renal calculi Calculus of kidney documented in [...] the patient have Health Care Power of Store Management Trainee? No Care Teams Pool Technician Relationship Specialty Start Date End Date Nikunj Plascencia MD [address] [place] [address] PCP - General Family Medicine 10/31/19 documented as of this encounter
--- OUTSIDE RECORDS SUMMARY | 2023-07-29 04:11 | External Medical Summary | Summary of Care ---
Author Name Unknown Organization [facility] Address [address] [place] [address] Phone [phone] Care Team Providers Care Underwater Hunter Name Role Phone Nikunj Plascencia MD Primary Care Provider [phone] Encounter Details Date Type Department Care Team (Late st Contact Info) Description 04/06/2023 Orders Only PATIENT PORTAL DO NOT DELETE THIS DEPT USED BY SOFY [place] [id number] Allergies Active Allergy Reactions Criticality Noted Date Comments Egg Shells Nausea/vomiting Medium 06/16/2018 Other reaction(s): GI SYMPTOMS Egg Yolk High 11/29/2019 Other reaction(s): GI upset Ibuprofen Other (Please comment) Medium 07/30/2010 Stomach upset Morphine Edema face/lips/tongue High 08/28/2021 Other reaction(s): LEGS SWELL documented as of this encounter (statuses as of 04/06/2023) Medications Medication Sig Dispensed Refills Start Date [...] Particles (Cymbalta) 0 06/20/2022 Active Saline Nasal [place] 0.65 % Nasal Solution ([place]) Q6H 0 06/06/2022 Active Clobetasol Propionate 0.05 [...] as of this encounter (statuses as of 04/06/2023) Active Problems Problem Noted Date Diagnosed Date Renal stone 03/21/2023 Food insecurity 01/02/2023 Overview: Per [facility] Protocol Presence of Watchman left atrial appendage closu re device 12/19/2022 PAF (paroxysmal atrial fibrillation) 08/17/2022 Overview: Added automatically from request for surgery [id number] Nasal septal perforation 06/13/2022 Overview: Per ENT [...] as of this encounter (statuses as of 04/06/2023) Resolved Problems Problem Noted Date Diagnosed Date [...] 140/90 12/12/201111/09 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 07/30/2018 Overview: [place] palsy Tinea 06/27/2011 07/30/2018 Mixed urge and stress incontinence 12/15/2008 10/08/2019 ADVANCE DIRECTIVE INFORMATION 06/17/2004 10/08/2019 documented as of this encounter (statuses as of 04/06/2023) Immunizations Name Administration Dates Next Due COVID-19 mRNA, LNP-s, No Pre serve, 2-Dose Series ([employer]) 10/05/2020,09/14/2020 Covid-19, Mrna, Lnp-s, Pf, B ivalent, 30 Mcg, IM, 12 yrs and above (Pfizer) 05/26/2022 Pneumococcal Conjugate Vacc, 13 Valent (Prevnar) 05/30/2016 Pneumococcal Conjugate Vacci ne, 20-valent ([id number]) 04/03/2023 Seasonal Influenza Virus Vac cine, Unspecified [...] Date Smoking Tobacco: Former Cigarettes 0.5 30 Q uit: 07/30/2008 Smokeless Tobacco: Never Comments:mar 2007 Alcohol [...] didn't have money to get more. Patient refused Sex and Gender Information Value Date Recorded [...] 04/13/2023 2:00 PM EST Office Visit Pharmacy, [facility] 132 [place] [address] [facility] 132 [place] [address] 05/01/2023 3:07 PM EDT Hospital Encounter OR [facility], OPERATING ROOM [facility] [address] [facility] [place] [address] Luis Manuel Sandy MD [address] [facility] [place] [address] 05/01/2023 3:07 PM EDT - 05/01/2023 4:43 PM EDT Surgery OR [facility], OPERATING ROOM [facility] [address] [facility] [place] [address] Luis Manuel Sandy MD [address] [place] [address] CYSTOURETHROSCOPY URETEROSCOPY WITH LITHOTRIPSY AND STENT INSERTION 05/16/2023 1:30 PM EDT Cardiac Studies Cardiac Studies, [address] [address] 05/19/2023 1:30 PM EDT Office Visit Cardiology, [facility] [address] [place] [address] Lila Burger CRNP [address] [place] [phone] 05/24/2023 2:00 PM EDT Office Visit Podiatry [address] [address] Eveline Layne, JAMAL [address] [place] [address] 06/07/2023 2:30 PM EDT Office Visit Dermatology [facility] [address] [place] [address] Cyril Borges MD [address] [place] [address] 06/14/2023 1:00 PM EDT Office Visit Cosmetic Surgery & Aesthetics [facility] [address] [place] [address] Conor Venegas PA-C [address] [place], [place] [address] 06/19/2023 1:30 PM EDT Nurse Only Rheumatology [place] [address] [facility] [place], [place] [address] Pf, Nurse Rheum [address] [facility] [place] [address] 06/27/2023 1:20 PM EDT Office Visit Family Practice [facility] [address] [place] [address] Nikunj Plascnecia MD [address] [place] [address] 07/03/2023 2:00 PM EDT Office Visit Nephrology, [facility] [place] [address] Geovanni Linder MD 200 [facility] [place] [address] 12/20/2023 2:30 PM EDT Imaging Radiology, [address] [place] [address] 12/20/2023 3:20 PM EDT Office Visit Rheumatology [address] [place] [address] John Yoder MD [address] [place] [address] [place] [address] Scheduled Procedures Name Priority Associated Diagnoses Date/Ti [...] D LEVEL ONCE IN A LIFETIME-USE SMARTSET# 94817 Completed 06/10/2022, 05/28/2021, 06/20/2020, Additional history exists [...] this encounter Medical Devices Implanted Type Area Fermenter Operator Device Identifier Shelf Expiration Date Model / Serial / Lot Kyphon Hv-R Bone Cement Implanted:Qty: 1 on 08/17/2016 by Michael Smith MD at OR [facility] N/A: Spine Thoracic 03/19/2019 C01A / C01A / [id number] Persona The Personalized Knee System Vivacit-E Highly Crosslinked Polyethylene Articular Surface Medial Congruent Implanted:Qty: 1 on 06/04/2018 by Duc Kimble MD at OR [facility] Right: Knee [employer] 11/19/2022 42-5221-0 - [id number] Device Watchman Flx 27mm - [id number] Implanted:Qty: 1 on 10/06/2022 by Austin Penaloza MD at [facility]ARDIAC LABS [facility] [employer] : INTRV CARD [id number] 08/07/2025 [id number] 70 / / [id number] documented as of this encounter Advance Directives [...] the patient have Health Care Power of Toilet Attendant? No Care Teams Underwater Hunter Relationship Specialty Start Date End Date Nikunj Plascencia MD [address] [place] [address] PCP - General Family Medicine 10/31/19 documented as of this encounter
--- OUTSIDE RECORDS SUMMARY | 2023-07-29 04:11 | External Medical Summary | Summary of Care ---
Author Name Unknown Organization [facility] Address [address] [place] [address] Phone [phone] Care Team Providers Care Operation Manager Name Role Phone Nikunj Plascencia MD Primary Care Provider [phone] Reason for Visit * Reason Comments Dosage Adjustment In Person (Anticoag Cl inic) Pain Encounter Details Date Type Department Care Team (Late st Contact Info) Description 04/13/2023 2:00 PM EST [facility] [address] [place] [address] Spinal stenosis of lumbar region without neurogenic claudication* Allergies Active Allergy Reactions Criticality Noted Date Comments Egg Shells Nausea/vomiting Medium 06/16/2018 Other reaction(s): GI SYMPTOMS Egg Yolk High 11/29/2019 Other reaction(s): GI upset Ibuprofen Other (Please comment) Medium 07/30/2010 Stomach upset Morphine Edema face/lips/tongue High 08/28/2021 Other reaction(s): LEGS SWELL documented as of this encounter (statuses as of 04/13/2023) Medications Medication Sig Dispensed Refills Start Date [...] Particles (Cymbalta) 0 06/20/2022 Active Saline Nasal [place] 0.65 % Nasal Solution ([place]) Q6H 0 06/06/2022 Active Clobetasol Propionate 0.05 [...] as of this encounter (statuses as of 04/13/2023) Active Problems Problem Noted Date Diagnosed Date Renal stone 03/21/2023 Food insecurity 01/02/2023 Overview: Per [facility] Protocol Presence of Watchman left atrial appendage closu re device 12/19/2022 PAF (paroxysmal atrial fibrillation) 08/17/2022 Overview: Added automatically from request for surgery [id number] Nasal septal perforation 06/13/2022 Overview: Per ENT [...] as of this encounter (statuses as of 04/13/2023) Resolved Problems Problem Noted Date Diagnosed Date [...] 140/90 12/12/201111/09 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 07/30/2018 Overview: Hilger palsy Tinea 06/27/2011 07/30/2018 Mixed urge and stress incontinence 12/15/2008 10/08/2019 ADVANCE DIRECTIVE INFORMATION 06/17/2004 10/08/2019 documented as of this encounter (statuses as of 04/13/2023) Immunizations Name Administration Dates Next Due COVID-19 mRNA, LNP-s, No Pre serve, 2-Dose Series (Unype) 10/05/2020,09/14/2020 Covid-19, Mrna, Lnp-s, Pf, B ivalent, 30 Mcg, IM, 12 yrs and above (Pfizer) 05/26/2022 Pneumococcal Conjugate Vacc, 13 Valent (Prevnar) 05/30/2016 Pneumococcal Conjugate Vacci ne, 20-valent ([id number]) 04/03/2023 Seasonal Influenza Virus Vac cine, Unspecified [...] this encounter Progress Notes * Maria Ines Desai, formerly [facility] - 04/13/2023 1:21 PM EST Medication Therapy Disease Management [facility] - Chronic Pain Management Progress Note 04/13/2023 Caroline Paulino, identified by name and date [...] region without neurogenic claudication HPI: Patient notes dealing with kidney stones, notes has a stent and will have Lithotrophy Patient notes is using oxycodone from uroglogy to help with this issue Pain described as: sharp and down her [...] MONITORING: Daily MME: 0 mg PDMP Reviewed (04/13/23): No recent history, appropriate Functional Goal: walk the dog around the block again Current Pain Level (04/13/23): worse dealing with acute [...] Cymbalta 60 mg daily -per psychiatrist Lyrica 100 mg BID JointFlex-helps knee but not back Acetaminophen PRN - up to 3g per day Namenda 5 mg BID Creatinine Clearance: Serum creatinine: 1.6 mg/dL (H) 03/31/23 0917 Estimated creatinine clearance: 46.2 mL/min (A) Creatinine Results: Recent Labs Units 03/31/23 0917 12/07/22 1623 10/06/22 1010 CREATININE - [facility] mg/dL 1.6* 1.3* 1.6* Hepatic Function (ALT): Recent Labs Units 03/31/23 0917 10/06/22 1010 09/07/22 1534 ALT - [facility] U/L 14 17 14 Comprehensive Metabolic Panel Results: Results for orders [...] this visit is Medication Optimization. Current concerns: dealing with acute pain with kidney stones for which she is taking oxycodone as needed Adherence: Reviewed current regimen, patient is adherent to regimen. Treatment options: continue current regimen due to acute on chronic pain Treatment concerns: acute pain overshadowing chronic making evaluation limited at this time Education provided: discuss kidney stone treatment/prevention PLAN: Continue current chronic pain medications Medication changes: no change Pain Medications: Cymbalta 60 mg daily -per psychiatrist Lyrica 100 mg BID JointFlex-helps knee but not back Acetaminophen PRN - up to 3g per day Namenda 5 mg BID Patient verbalized understanding of the plan. Contact clinic with any issues. FOLLOW UP: Return to clinic in 12 weeks 07/13/2023 Maria Ines Desai formerly [facility] Clinical Pharmacist - Administrative Law Judge Medication Therapy Management Clinic 04/13/2023, 1:21 PM documented in this encounter Plan of Treatment Upcoming Encounters Date Type Department Care Team (Latest Contact Info) Description 05/01/2023 3:07 PM EDT Hospital Encounter [place] [facility] [facility] [address] [place] [address] Luis Manuel Sandy MD [address] [place] [address] 05/01/2023 3:07 PM EDT - 05/01/2023 4:43 PM EDT Surgery [place] [facility] [address] [place] [address] Luis Manuel Sandy MD [address] [place] [address] CYSTOURETHROSCOPY URETEROSCOPY WITH LITHOTRIPSY AND STENT INSERTION 05/16/2023 1:30 PM EDT Cardiac Studies Cardiac Studies, [facility] [address] [facility] [place] [address] 05/19/2023 1:30 PM EDT Office Visit Cardiology, [facility] [address] [place] [address] Lila Burger CRNP [address] [place] [id number] 05/24/2023 2:00 PM EDT Office Visit Podiatry [facility] [address] [place] [address] Eveline Layne DPM [address] [place] [address] 05/25/2023 9:30 AM EDT Appointment Radiology, [place] [address] [place] [address] 05/25/2023 10:00 AM EDT Procedure Only Urology, [place] [address] [place] [address] Luis Manuel Sandy MD [address] [place] [address] 06/07/2023 2:30 PM EDT Office Visit Dermatology [facility] [address] [place] [address] Cyril Borges MD [address] [place] [address] 06/14/2023 1:00 PM EDT Office Visit Cosmetic Surgery & Aesthetics [facility] [address] [place] [address] Conor Venegas PA-C [address] [place] [address] 06/19/2023 1:30 PM EDT Nurse Only Rheumatology [place] [address] [place] [address] Pf, Nurse Rheum [facility] [place] [address] 06/27/2023 1:20 PM EDT Office Visit Family Practice [facility] [address] [facility] [place] [address] Nikunj Plascencia MD 132 [facility] [place] [address] 07/03/2023 2:00 PM EDT Office Visit Nephrology, Jason Salas [address] [place] [address] Geovanni Linder MD [address] [place] [address] 07/13/2023 2:30 PM EDT Office Visit Pharmacy, [facility] 132 [facility] [place] [address] [place], [facility] 132 [facility] [place] [address] 09/27/2023 8:30 AM EDT Appointment Radiology, [place] [address] [place] [address] 09/27/2023 9:30 AM EDT Office Visit Urology, [place] [address] [place] [address] Luis Manuel Sandy MD [address], [place] [id number] 12/20/2023 2:30 PM EDT Imaging Radiology, [address] [place] [address] 12/20/2023 3:20 PM EDT Office Visit Rheumatology [address] [place] [address] John Yoder MD [facility] [employer] [facility] [address] Scheduled Procedures Name Priority Associated Diagnoses Date/Ti [...] D LEVEL ONCE IN A LIFETIME-USE SMARTSET# 84132 Completed 06/10/2022, 05/28/2021, 06/20/2020, Additional history exists [...] this encounter Medical Devices Implanted Type Area Hr Payroll Coordinator Device Identifier Shelf Expiration Date Model / Serial / Lot Kyphon Hv-R Bone Cement Implanted:Qty: 1 on 08/17/2016 by Michael Smith MD at [place] [facility] N/A: Spine Thoracic 03/19/2019 C01A / C01A / [id number] Cement Bone Lv G 1119-140-01 - [id number] Implanted:Qty: 1 on 06/04/2018 by Duc Kimble MD at OR [facility] Right: Knee [employer] 11/19/20201119-1 40-01 / / [id number] Cement Bone Lv G 1119-140-01 - [id number] Implanted:Qty: 1 on 06/04/2018 by Duc Kimble MD at OR [facility] Right: Knee [employer] 06/19/20201119-1 40-01 / / [id number] Persona The Personlized Knee System Vivacit-E Highly Crosslinked Polyethylene All-Poly Patella Cemented Implanted:Qty: 1 on 06/04/2018 by Duc Kimble MD at OR [facility] Right: Knee [employer] 06/19/2022 42-5402-0 00-35 / / [id number] Tibia Stem 5 Deg Rt Size F - [id number] Implanted:Qty: 1 on 06/04/2018 by Duc Kimble MD at OR [facility] Right: Knee [employer] 10/21/2027 42-5320-0 75-02 / / [id number] Persona The Personalized Knee System Femur Cemented Cr Standard Implanted:Qty: 1 on 06/04/2018 by Duc Kimble MD at OR [facility] Right: Knee [employer] 11/20/2027 42-5026-0 62-02 / / [id number] Persona The Personalized Knee System Vivacit-E Highly Crosslinked Polyethylene Articular Surface Medial Congruent Implanted:Qty: 1 on 06/04/2018 by Duc Kimble MD at OR [facility] Right: Knee [employer] 11/19/2022 42-5221-0 07-12 / / [id number] Device Watchman Flx 24mm - [id number] Implanted:Qty: 1 on 10/06/2022 by Austin Penaloza MD at [facility] Clerts! : INTRV CARD [id number] 03/07/2025 [id number] / / [id number] Device Watchman Flx 27mm - [id number] Implanted:Qty: 1 on 10/06/2022 by Austin Penaloza MD at [facility] Clerts! : INTRV CARD [id number] 08/07/2025 [id number] / / [id number] documented as of this encounter Visit Diagnoses Diagnosis Spinal stenosis of lumbar region without neurogenic claudication- Primary Spinal stenosis, lumbar region, without neurogenic claudication Renal calculi Calculus of kidney documented in [...] the patient have Health Care Power of Consumer Services Consultant? No Care Teams Operation Manager Relationship Specialty Start Date End Date Nikunj Plascencia MD [address] [facility] [place] [address] PCP - General Family Medicine 10/31/19 documented as of this encounter
--- OUTSIDE RECORDS SUMMARY | 2023-07-29 04:12 | External Medical Summary | Summary of Care ---
Author Name Unknown Organization [facility] Address [address] [place] [address] Phone [phone] Care Team Providers Care Cement Despatch Operator Name Role Phone Nikunj Plascencia MD Primary Care Provider [phone] Reason for Visit * Reason Comments Knee Pain Left Encounter Details Date Type Department Care Team (Late st Contact Info) Description 03/30/2023 3:00 PM EST Office Visit Orthopaedics [facility] [address] [facility] [place] [address] PA-C [address] [place] [address] Primary osteoarthritis of left knee*; Chronic pain of left knee Allergies Active Allergy Reactions Criticality Noted Date Comments Egg Shells 06/16/2018 Other reaction(s): GI SYMPTOMS Egg Yolk High 11/29/2019 Other reaction(s): GI upset Ibuprofen Other (Please comment) 07/30/2010 Stomach upset Morphine 08/28/2021 Other reaction(s): LEGS SWELL documented as of this encounter (statuses as of 03/30/2023) Medications Medication Sig Dispensed Refills Start Date [...] bedtime 0 Active Folic Acid 800 MCG TabletIndications:Jaqueline gonzalez osteoarthritis of right knee Take 1 Tab by mouth daily. 30 Tab 4 05/03/2018 Active vitamin c (ASCORBIC ACID) 250 MG TabletIndications:Jaqueline gonzalez osteoarthritis of right knee Take 1 Tab [...] 09/27/2021 Active Betamethasone Dipropionate 0.05 % External OintmentIndications:R arina and nonspecific skin eruption Apply 2x daily [...] the morning. 90 Tablet 3 05/26/2022 Active DULoxetine HCl 30 MG Oral Capsule Delayed Release Particles (Cymbalta) 0 06/20/2022 Active Saline Nasal [place] 0.65 % Nasal Solution ([place]) Q6H 0 06/06/2022 Active Clobetasol Propionate 0.05 [...] 12/14/2022 Active Pregabalin 150 MG Oral Capsule (Lyrica)Indications:S hayder stenosis of lumbar region without neurogenic claudication Take 1 Capsule by mouth in the morning and 1 Capsule before bedtime. 60 Capsule 11 01/03/2023 Active Lisinopril 10 MG Oral Tablet (Prinivil) TAKE 1 TABLET BY MOUTH EVERY DAY 90 Tablet 3 01/27/2023 Active Atorvastatin Calcium 80 MG Oral Tablet (Lipitor) TAKE 1 TABLET BY MOUTH EVERY DAY IN THE MORNING 90 Tablet 0 01/29/2023 Active Metoprolol Succinate ER 50 MG Oral Tablet Extended Release 24 Hour (toPROL XL)Indications:Essent ial hypertension with goal blood pressure less than [...] 12 hours. 5.5 mL 5 02/15/2023 Active oxyCODONE-Acetaminoph en 5-325 MG Oral Tablet (Percocet) Take 1 Tablet by mouth every 4 hours as needed for Pain, Moderate. 20 Tablet 0 03/22/2023 Active Hospital, Clinic, or Other Facility Administered Medication Ordered Dose Route Frequency Start Date End Date Status atropine sulfate inj 0.4 mgIndications:Chest pain, unspecified type 0.4 mg IV PUSH PRN 01/29/2021 Active documented as of this encounter (statuses as of 03/30/2023) Active Problems Problem Noted Date Diagnosed Date Renal stone 03/21/2023 Food insecurity 01/02/2023 Overview: Per [facility] Protocol Presence of Watchman left atrial appendage closu re device 12/19/2022 PAF (paroxysmal atrial fibrillation) 08/17/2022 Overview: Added automatically from request for surgery [id number] Nasal septal perforation 06/13/2022 Overview: Per ENT [...] as of this encounter (statuses as of 03/30/2023) Resolved Problems Problem Noted Date Diagnosed Date [...] as of this encounter (statuses as of 03/30/2023) Immunizations Name Administration Dates Next Due COVID-19 mRNA, LNP-s, No Pre serve, 2-Dose Series ([employer]) 10/05/2020,09/14/2020 Covid-19, Mrna, Lnp-s, Pf, B ivalent, 30 Mcg, IM, 12 yrs and above ([employer]) 05/26/2022 Pneumococcal Conjugate Vacc, 13 Valent (Prevnar) [...] Progress Notes * Robert Lane PA-C - 03/30/2023 2:37 PM EST ORTHOPAEDIC SURGERY - Clinic Note SUBJECTIVE: Caroline Paulino is a 67 year old female. Chief Complaint Patient presents with Knee Pain Left HPI: Caroline is a pleasant 67-year-old female who presents to the clinic today for re-evaluation for chronic left knee pain due to osteoarthritis. Patient was previously evaluated by Dr. De León in [place] PA-C and has been treated with corticosteroid injections with relative success on the order of 3 months of pain relief. Her most recent injection was October of 2022. She has been working toward BMI goals to improve her candidacy for joint replacement. Today she reports that she has experienced continued pain in the left knee which has been steadily worsening. She reports feelings of shifting in the left knee during different activities. She reports that she has trialed many conservative treatments which are no longer effective to include activity modification, formal physical therapy, bracing, and most recently corticosteroid injection. She reports that her most recent corticosteroid injection only provided relief for a few days. She is interested in left knee replacement, however she is aware of the current recommendations and her lack of candidacy due to BMI and other co morbidities. No reported fevers, chills, or night sweats. No other orthopedic complaints at this time. Review of Systems: Constitutional ROS: No fevers, sweats, or chills Cardiovascular ROS: No chest pain Respiratory ROS: No breathing difficulty Gastrointestinal ROS: No abdominal pain Musculoskeletal/Extremities ROS: Left knee pain Neurologic ROS: No numbness or tingling Review of patient's allergies indicates: Allergen Reactions Egg Yolk Other reaction(s): GI upset Egg Shells Other reaction(s): GI SYMPTOMS Ibuprofen Other (Please comment) Stomach upset Morphine Other reaction(s): LEGS SWELL Current Outpatient Medications Medication Sig Dispense Refill [...] 3 in 15 minutes. 25 Tablet 11 DULoxetine HCl 60 MG [...] resolved, then when flaring 100 g 0 Memantine HCl 5 MG Oral Tablet (Namenda) Take 1 tablet daily for 1 week and then 1 tablet twice daily 180 Tablet 3 diphenhydrAMINE HCl 25 MG Oral Tablet Take 1 Tablet by mouth in the morning. Clotrimazole 1 % External Cream (Lotrimin) Apply topically to affected area as needed for Itching. 30 g 5 Oxybutynin Chloride ER 5 MG Oral Tablet Extended Release 24 Hour (Ditropan XL) Take 1 Tablet by mouth in the morning. 90 Tablet 3 DULoxetine HCl 30 MG Oral Capsule Delayed Release Particles (Cymbalta) Saline Nasal [place] 0.65 % Nasal Solution ([place]) Q6H Clobetasol Propionate 0.05 % External Ointment [...] 1 Tablet before bedtime. 21 Tablet 0 Clopidogrel Bisulfate 75 MG Oral Tablet (pLAVix) Take 1 Tablet by mouth in the morning. 100 Tablet 1 Pregabalin 150 MG Oral Capsule (Lyrica) Take 1 Capsule by mouth in the morning and 1 Capsule beforebedtime. 60 Capsule 11 Lisinopril 10 MG Oral Tablet (Prinivil) TAKE 1 TABLET BY MOUTH EVERY DAY 90 Tablet 3 Atorvastatin Calcium 80 MG Oral Tablet (Lipitor) TAKE 1 TABLET BY MOUTH EVERY DAY IN THE MORNING 90Tablet 0 Metoprolol Succinate ER 50 MG Oral [...] eye every 12 hours. 5.5 mL 5 oxyCODONE-Acetaminophen 5-325 MG Oral Tablet (Percocet) Take 1 Tablet by mouth every 4 hours as needed for Pain, Moderate. 20 Tablet 0 Current Facility-Administered Medications Medication Dose Route Frequency Provider Last Rate Last Admin atropine sulfate inj 0.4 mg 0.4 mg IV Push PRN Trip Nolasco, Patient Active Problem List Diagnosis Code Irritable bowel syndrome with both constipation and diarrhea K58.2 HTN, goal below 130/80 I10 Stage 3b chronic kidney disease (CKD) ([facility]) N18.32 Morbid obesity ([facility]) E66.01 Spinal stenosis of lumbar region without neurogenic claudication M48.061 Gastroesophageal reflux disease without esophagitis K21.9 Senile osteoporosis M81.0 Bicuspid aortic valve Q23.1 Moderate aortic stenosis I35.0 Dyslipidemia E78.5 Chronic insomnia F51.04 Paroxysmal atrial flutter (HCC) I48.92 Depression with anxiety F41.8 Controlled substance agreement terminated Z91.148 Migraine with aura and without status migrainosus, not intractable G43.109 Nasal septal perforation J34.89 PAF (paroxysmal atrial fibrillation) ([facility]) I48.0 Presence of Watchman left atrial appendage closure device Z95.818 Food insecurity Z59.41 Renal stone N20.0 Past Medical History: Diagnosis Date --- DIABETES --- prediabetes Acute on chronic diastolic CHF (congestive heart failure) ([facility]) 01/26/2018 Allergic rhinitis Collazo's palsy left eye palsy Benign neoplasm of colon 11/20/2010 hyperplastic polyps- repeat colonoscopy in 10 years Bicuspid aortic valve 10/09/2019 Bullous pemphigoid 08/17/2016 txt with cellcept Chronic insomnia 12/22/2020 CKD (chronic kidney disease) stage 3, GFR 30-59 ml/min ([facility]) Compression fracture of body of thoracic vertebra ([facility]) 08/17/2016 Controlled substance agreement terminated 10/20/2021 Current tear of medial cartilage or meniscus of knee left knee Depression with anxiety 10/20/2021 Depressive disorder, not elsewhere classified Disorder of adrenal gland ([facility]) 01/26/2018 Dyslipidemia 12/20/2019 Fall 06/30/2022 [...] Moderate episode of recurrent major depressive disorder ([facility]) 10/08/2019 Other pulmonary embolism without acute cor pulmonale ([facility]) 07/27/2018 Overflow incontinence Paroxysmal atrial flutter ([facility]) 06/21/2021 Presence of Watchman left atrial appendage closure device 12/19/2022 Recurrent major depressive disorder in remission ([facility]) 01/26/2018 S/P kyphoplasty 08/17/2016 Sacroiliitis ([facility]) 01/26/2018 Senile osteoporosis 08/29/2017 Spinal stenosis of lumbar region without neurogenic claudication 01/04/2017 Status post total right knee replacement 06/06/2018 Tibial plateau fracture 01/22/2015 Past Surgical History: Procedure Laterality Date ARTHROPLASTY KNEE TOTAL Right 06/04/2018 ARTHROPLASTY KNEE TOTAL performed by Duc Kimble Jr., MD at OR [facility] ASP/INJECT GANGLION CYST bilaterally, right x2 COLONOSCOPY THRU STOMA, W/BIOPSY 11/20/2010 hyperplastic polyps- repeat colonoscopy in 10 years COLONOSCOPY, DIAGNOSTIC (RECTUM) 10/16/2017 poor prep, procedure aborted/[facility] COLONOSCOPY, DIAGNOSTIC (RECTUM) 09/19/2018 diverticulosis/COLONOSCOPY FLEXIBLE PROXIMAL DIAGNOSTIC performed by Kristen Nogueira MD at ENDOSCOPY [facility] COLONOSCOPY, DIAGNOSTIC (RECTUM) 03/24/2021 adenomatous polyp, diverticulosis, repeat 5 yrs / [facility] CORONARY ANGIOGRAPHY W/LEFT HEART CATH Right 11/07/2016 CORONARY ANGIOGRAPHY W/LEFT HEART CATH performed by Fernando Germain DO at [facility]IAC LABS [facility] EGD, FLEXIBLE, DIAGNOSTIC 10/13/2017 normal/[facility] EGD, FLEXIBLE, DIAGNOSTIC 03/24/2021 Barretts, gastritis / [facility] HYSTEROSCOPY;ENDOMETRIAL ABLAT 1998 hysteroscopy, rollerball ablation [...] performed by Michael Smith MD at OR [facility] MAMMOGRAM SCREENING-BILATERAL 2004 [facility] PERC CLOSURE TRANSCATH LEFT ATRIAL APPENDAGE W/ENDOCARDIAL IMPLANT Right 10/06/2022 PERCUTANEOUS CLOSURE LEFT ATRIAL APPENDAGE IMPLANT performed by Austin Penaloza MD at [facility]ARDIAC [facility] REMOVAL OF APPENDIX 11/2018 SACROILIAC JOINT INJECT [...] by Yannick Daniel, DO at OR [facility] KNEE SURGERY [facility] 2006 Knee/Leg Other Procedures Unlisted Social History Tobacco Use Smoking status: Former Packs/day: 0.50 Years: 30.00 Additional pack years: 0.00 Total pack years: 15.00 Types: Cigarettes Quit date: 07/30/2008 Years since quittin.6 Smokeless tobacco: Never Tobacco comments: mar 2007 Vaping Use Vaping Use: Never used Substance Use Topics Alcohol use: No Drug use: No Family history: Noncontributory OBJECTIVE: Diagnostic Testing: Radiographs of the left knee obtained on 11/02/2022 were reviewed and demonstrate severe osteoarthritis evidenced by [id number] articulation, significant osteophytosis, and some lateral tibial translation. Vital Signs: There were no vitals taken for this visit. Physical Exam: General: Alert and oriented x3 female, in no acute distress, appears currently stated age, appears well nourished, and converses appropriately. Psych: Mood and affect pleasant, cooperative, and without any positive/concerning findings. HEENT: Head is atraumatic, normocephalic, eyes are equal and round and without appreciated scleral injection, oral and nasal cavities are patent without obvious exudate. Respiratory: Patient's breathing is unlabored. Skin: Generally pink, warm and dry without gross visible diaphoresis, rash, erythema, ecchymosis, breakdown, or visible trauma. Musculoskeletal: Examination of the left knee reveals no gross deformity, erythema, ecchymosis, or skin breakdown. No significant palpable effusion appreciated. There is tenderness to palpation whichis most focal over the lateral joint line. There is some tenderness to palpation over the medial joint line to a lesser degree. There is no cystic protrusion or otherwise abnormality appreciated within the popliteal fossa. She is able to demonstrate a straight leg raise and range the knee from fullextension to roughly 120 flexion demonstrating good quad strength. Collateral stability is intactwith trace valgus laxity. Anterior and posterior drawer test negative. Calf is supple and nontender. She is distally neurovascularly intact with appropriate sensation to light touch, palpable pulses,and brisk cap refill. Distal motor function is intact to include great toe and ankle dorsiflexion. Gait assessment is antalgic with the use of her cane. ASSESSMENT: Primary osteoarthritis of left knee (Primary) Chronic pain of left knee Follow Up: Return for Clinic Visit. | For: Clinic Visit | Check-out note: Follow-up for Iovera nerve ablation. PLAN: We had a lengthy discussion in the office today with regard to her severe left knee osteoarthritis and failed treatments thus far. We also discussed her lack of candidacy for joint replacement due toBMI and other comorbidities. I did not recommend repeat corticosteroid injection today as patient'slast injection only provided days of relief. Given her previous failure of other conservative measur es to include activity modification, formal physical therapy, and bracing; we discussed Iovera nerve ablation as a possible modality for pain relief for her left knee. She is in agreement, and motivated to proceed with such treatment. Iovera nerve ablation literature was provided to patient in the office today. I will reach out to Latrice, our Iovera flow nurse, for pursuit of prior authorization and scheduling accordingly. Patient was certainly urged to contact clinic in the interim with any questions, concerns, or worsening of symptoms. Patient is comfortable with the plan, and all questions were answered. This chart was completed in part utilizing [employer] Voice Recognition Software. Grammatical errors, random word insertions, pronoun errors, and incomplete sentences are an occasional consequence of this system due to software limitations, ambient noise, and hardware issues. Any formal questions or concerns about the content, text, or information contained within the body of this dictation should be directly addressed to the provider for clarification. Robert Lane PA-C 03/30/2023 2:37 PM documented in this encounter Nursing Notes * Lesa Gardner MED ASSIST - 03/30/2023 2:46 PM EST Patient presents today for follow up on left knee pain. Had previously seen ezio and billie in Oct 2022 which helped a little bit. documented in this encounter Plan of Treatment Upcoming Encounters Date Type Department Care Team (Latest Contact Info) Description 04/03/2023 2:12 PM EST Hospital Encounter [facility], [facility]PERATING [facility] [address] [place] [address] Luis Manuel Sandy MD [address] [place] [address] 04/03/2023 2:12 PM EST - 04/03/2023 3:52 PM EST Surgery [facility], [facility] [address] [place] [address] Luis Manuel Sandy MD [address] [place] [address] CYSTOURETHROSCOPY URETEROSCOPY WITH LITHOTRIPSY AND STENT INSERTION 04/13/2023 2:00 PM EST Office Visit Pharmacy, [facility] [address] [place] [address] [facility] [address] [place] [address] 04/20/2023 1:00 PM EST Appointment Radiology, [place] [address] [place] [id number] 04/20/2023 1:45 PM EST Procedure Only Urology, [place] [address] [place] [address] Luis Manuel Sandy MD [address] [place] [address] 05/16/2023 1:30 PM EDT Cardiac Studies Cardiac Studies, [facility] [address] [place] [address] 05/19/2023 1:30 PM EDT Office Visit Cardiology, [facility] [address] [place] [address] Lila Burger CRNP [address] [place] [phone] 05/24/2023 2:00 PM EDT Office Visit Podiatry [facility] [address] [place] [address] Eveline Layne DPM [address] [place] [address] 06/07/2023 2:30 PM EDT Office Visit Dermatology [address] [address] Cyril Borges MD [address] [place] [address] 06/14/2023 1:00 PM EDT Office Visit Cosmetic Surgery & Aesthetics [facility] [address] [place] [address] Conor Venegas PA-C [address] [place] [address] 06/19/2023 1:30 PM EDT Nurse Only Rheumatology [address] [place] [address] Pf, Nurse Rheum [address] [place] [address] [place] [address] 06/27/2023 1:20 PM EDT Office Visit Family Practice [facility] [address] [place] [address] Nikunj Plascencia MD [address] [place] [address] 07/03/2023 2:00 PM EDT Office Visit Nephrology, [facility] [address] [facility] [place] [address] Geovanni Linder MD [address] [facility] [place] [address] 07/05/2023 1:00 PM EDT Appointment Radiology, [address] [address] 07/05/2023 2:15 PM EDT Office Visit Urology, [place] [address] [place] [address] Luis Manuel Sandy MD [address], [place] [id number] 12/20/2023 2:30 PM EDT Imaging Radiology, [address] [place] [address] 12/20/2023 3:20 PM EDT Office Visit Rheumatology [facility] [address] [place] [address] John Yoder MD [address] [place] [address] Scheduled Procedures Name Priority Associated Diagnoses Date/Ti me CYSTOURETHROSCOPY URETEROSCOPY WITH LITHOTRIPSY AND STENT INSERTION Renal calculi 04/03/2023 2:12 PM EST ROBOTIC ARTHROPLASTY KNEE TOTAL Knee osteoarthritis COLONOSCOPY FLEXIBLE PROXIMA L DIAGNOSTIC Recall History of colonic polyps Health Maintenance Due Date Last Done Comments Zoster Vaccines (1 of 2) 1974 Pneumococcal Vaccine: 65+ Years (2 - PPSV23 or PCV20) 07/25/2016 05/30/2016 HOME BP CUFF VALIDATION YEARLY 04/02/2020 04/02/2019 COVID-19 Vaccine ( - season) 2022 05/26/2022, 10/05/2020, 09/14/2020 Mammogram 11/30/2022 11/30/2021, 05/22, 06/10/2021, Additional history exists Depression Screening 12/09/2022 12/09/2021 GFR 06/08/2023 12/07/2022, 09/20, 09/07/2022, Additional history exists Albumin/Creatinine Ratio 06/14/2023 06/13/2022, 02/20 DXA Scan 12/01/2023 11/30/2021, 08/21, 08/29/2017, Additional history exists Diabetes Screening 12/07/2025 12/07/2022, 0 10/06/2022, 09/07/2022, Additional history exists Lipid Panel 01/11/2026 01/11/2021, 11/20, 04/08/2019, Additional history exists COLONOSCOPY-EVERY 5 YRS AGES 18-100 03/24/2026 03/24/2021, 09/19/2018, 09/19/2018, Additional history exists DTaP,Tdap,and Td Vaccines (3 - Td or Tdap) 01/06/2032 01/05/2022, 11/18/2011 Pap Smear Discontinued 08/05/2019, 07/21, 03/01/2010 Fecal Occult Blood Test Discontinued 03/10/19, 03/10/2021, 03/10/2021, Additional history exists Colonoscopy Discontinued 03/24/2021, 08/22, 09/19/2018, Additional history exists Colorectal Cancer Screening Discontinued VITAMIN D LEVEL ONCE IN A LIFETIME-USE SMARTSET# [id number] Completed 06/10/2022, 05/28/2021, 06/20/2020, Additional history exists Influenza Vaccine (FLU shot) Completed 12/07/2022, 10/21/2021, 11/26/2020, Additional history exists Cologuard Discontinued GARDASIL-HPV IMMUNIZATION SERIES Aged Out No longer eligible based on patient's age to complete this topic Hepatitis B Aged Out No longer eligi ble based on patient's age to complete this topic MENINGOCOCCAL (MENACTRA/MENVEO) Aged Out No longer eligible based on patient's age to complete this topic Sigmoidoscopy Discontinued documented as of this encounter Medical Devices Implanted Type Area Printer Slotter Feeder Device Identifier Shelf Expiration Date Model / Serial / Lot Kyphon Hv-R Bone Cement Implanted:Qty: 1 on 08/17/2016 by Michael Smith MD at OR [facility] N/A: Spine Thoracic 03/19/2019 [id number] / [id number] / [id number] Persona The Personalized Knee System Vivacit-E Highly Crosslinked Polyethylene Articular Surface Medial Congruent Implanted:Qty: 1 on 06/04/2018 by Duc Kimble MD at OR [facility] Right: Knee [employer] 11/19/2022 [id number] Device Watchman Flx 27mm - [id number] Implanted:Qty: 1 on 10/06/2022 by Austin Penaloza MD at CARDIAC LABS [facility] [employer] : INTRV CARD [id number] 08/07/2025 [id number] / / [id number] documented as of this encounter Visit Diagnoses Diagnosis Renal stone Calculus of kidney Primary osteoarthritis of left knee- Primary Primary localized osteoarthrosis, lower leg Chronic pain of left knee Pain in joint, lower leg Renal calculi Calculus of kidney documented in [...] Date Activated Date Inactivated Comments Full Code 06/04/2018 11:16 AM 06/08/2018 3:44 [...] the patient have Health Care Power of Unloader Operator? No Care Teams Cement Despatch Operator Relationship Specialty Start Date End Date Nikunj Plascencia MD [address] [place] [address] PCP - General Family Medicine 10/31/19 documented as of this encounter
--- OUTSIDE RECORDS SUMMARY | 2023-07-29 04:12 | External Medical Summary | Summary of Care ---
Author Name Unknown Organization [facility] Address [address] [place] [address] Phone [phone] Care Team Providers Care Electric Welder Helper Name Role Phone Nikunj Plascencia MD Primary Care Provider [phone] Encounter Details Date Type Department Care Team ([facility] st Contact Info) Description 04/05/2023 Specialty Pharmacy [facility], [address], [address] [place] [address] Medication, [facility], [address] [place] [address] Allergies Active Allergy Reactions Criticality Noted Date Comments Egg Shells Nausea/vomiting Medium 06/16/2018 Other reaction(s): GI SYMPTOMS Egg Yolk High 11/29/2019 Other reaction(s): GI upset Ibuprofen Other (Please comment) Medium 07/30/2010 Stomach upset Morphine Edema face/lips/tongue High 08/28/2021 Other reaction(s): LEGS SWELL documented as of this encounter (statuses as of 04/05/2023) Medications Medication Sig Dispensed Refills Start Date [...] Particles (Cymbalta) 0 06/20/2022 Active Saline Nasal Cameron 0.65 % Nasal Solution ([place]) Q6H 0 06/06/2022 Active Clobetasol Propionate 0.05 [...] as of this encounter (statuses as of 04/05/2023) Active Problems Problem Noted Date Diagnosed Date Renal stone 03/21/2023 Food insecurity 01/02/2023 Overview: Per [facility] Protocol Presence of Watchman left atrial appendage closu re device 12/19/2022 PAF (paroxysmal atrial fibrillation) 08/17/2022 Overview: Added automatically from request for surgery [id number] Nasal septal perforation 06/13/2022 Overview: Per ENT [...] as of this encounter (statuses as of 04/05/2023) Resolved Problems Problem Noted Date Diagnosed Date [...] 140/90 12/12/201111/09 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 Tinea 06/27/2011 07/30/2018 Mixed urge and stress incontinence 12/15/2008 10/08/2019 ADVANCE DIRECTIVE INFORMATION 06/17/2004 10/08/2019 documented as of this encounter (statuses as of 04/05/2023) Immunizations Name Administration Dates Next Due COVID-19 mRNA, LNP-s, No Pre serve, 2-Dose Series (Eventable) 10/05/2020,09/14/2020 Covid-19, Mrna, Lnp-s, Pf, B ivalent, 30 Mcg, IM, 12 yrs and above (Eventable) 05/26/2022 Pneumococcal Conjugate Vacc, 13 Valent (Prevnar) 05/30/2016 Pneumococcal Conjugate Vacci ne, 20-valent ([id number]) 04/03/2023 Seasonal Influenza Virus Vac cine, Unspecified [...] the money to buy more. Often true 10 / Within the past 12 months, t he [...] as of this encounter Progress Notes * Kalyani Pederson PHARM Tech - 04/05/2023 12:33 PM EST Prescribed medication: Medication: dupixent Shipment date: 04/13 Delivery method: Specialty Mail Location Medication Delivered too? Prescription Address: [address] [place] [address] [place] [id number] D[facility] Roach [facility] 04/05/2023,12:33 PM documented in this encounter Plan of Treatment Upcoming Encounters Date Type Department Care Team (Latest Contact Info) Description 04/13/2023 2:00 PM EST Office Visit Pharmacy, [address] [place] [address] [address] [place] [address] 05/01/2023 3:07 PM EDT Hospital Encounter [place] [facility] [address] [facility] [place] [address] Luis Manuel Sandy MD [address] [place] [facility] [place] [address] 05/01/2023 3:07 PM EDT - 05/01/2023 4:43 PM EDT Surgery [facility] [address] [facility] [place] [address] Luis Manuel Sandy MD [address] [place], [place] [id number] CYSTOURETHROSCOPY URETEROSCOPY WITH LITHOTRIPSY AND STENT INSERTION 05/16/2023 1:30 PM EDT Cardiac Studies Cardiac Studies, [facility] [address] [place] [address] 05/19/2023 1:30 PM EDT Office Visit Cardiology, [facility] [address] [place] [address] Lila Burger CRNP [address] [place] [id number] 05/24/2023 2:00 PM EDT Office Visit Podiatry [facility] [address] [place] [address] Eveline Layne DPM [address] [place] [address] 06/07/2023 2:30 PM EDT Office Visit Dermatology [facility] [address] [place] [address] Cyril Borges MD [address] [place], [place] [id number] 06/14/2023 1:00 PM EDT Office Visit Cosmetic Surgery & Aesthetics [facility] [address] [place] [address] Conor Venegas PA-C [address] [place], [place] [id number] 06/19/2023 1:30 PM EDT Nurse Only Rheumatology [place] [address] [facility] [place] [address] Pf, Nurse Rheum [address] [place] [address] [place] [address] 06/27/2023 1:20 PM EDT Office Visit Family Practice [facility] [address] [place] [address] Nikunj Plascencia MD [address] [place] [address] 07/03/2023 2:00 PM EDT Office Visit Nephrology, [facility] [address] [place] [address] Geovanni Linder MD [address] [place] [address] 12/20/2023 2:30 PM EDT Imaging Radiology, [address] [place] [address] 12/20/2023 3:20 PM EDT Office Visit Rheumatology [place] [address] [facility] [place] [address] John Yoder MD [facility] [place] [address] Scheduled Procedures Name Priority Associated Diagnoses Date/Ti ri CYSTOURETHROSCOPY URETEROSCOPY WITH LITHOTRIPSY AND STENT INSERTION Renal calculi 05/01/2023 3:07 PM EDT ROBOTIC ARTHROPLASTY KNEE TOTAL Knee osteoarthritis COLONOSCOPY FLEXIBLE PROXIMA L DIAGNOSTIC Recall History of colonic polyps Health Maintenance Due Date Last Done Comments Zoster Vaccines (1 of 2) 1974 HOME BP CUFF VALIDATION YEARLY 04/02/2020 04/02/2019 COVID-19 Vaccine ( - 2022- season) 2022 05/26/2022, 10/05/2020, 09/14/2020 Mammogram 11/30/2022 [...] D LEVEL ONCE IN A LIFETIME-USE SMARTSET# [id number] Completed 06/10/2022, 05/28/2021, 06/20/2020, Additional history exists [...] this encounter Medical Devices Implanted Type Area Farm Laborer Device Identifier Shelf Expiration Date Model / Serial / Lot Kyphon Hv-R Bone Cement Implanted:Qty: 1 on 08/17/2016 by Michael Smith MD at [place] [facility] N/A: Spine Thoracic 03/19/2019 [id number] / [id number] / [id number] Persona The Personalized Knee System Vivacit-E Highly Crosslinked Polyethylene Articular Surface Medial Congruent Implanted:Qty: 1 on 06/04/2018 by Duc Kimble MD at OR [facility] Right: Knee [employer] 11/19/2022 [id number] - [id number] Device Watchman Flx 27mm - [id number] Implanted:Qty: 1 on 10/06/2022 by Austin Penaloza MD at [facility] The Daily Caller : INTRV CARD [id number] 08/07/2025 [id number] / / [id number] documented as of this encounter Advance Directives [...] the patient have Health Care Power of Laborer [place]arf? No Care Teams Electric Welder Helper Relationship Specialty Start Date End Date Nikunj Plascencia MD [address] [place] [address] PCP - General Family Medicine 10/31/19 documented as of this encounter
--- OUTSIDE RECORDS SUMMARY | 2023-07-29 04:12 | External Medical Summary ---
Author Name Unknown Address Unknown Organization : Laboratory Report Ordering Provider Test Date Status DARYL RAYMOND 04/03/2023 13:54:32 Final Observation Date Value Abnormality Reference (Units ) Status Glucose Point of Care 04/03/2023 13:54:32 89 70-120 (mg/dL) Final Performing Location
--- OUTSIDE RECORDS SUMMARY | 2023-07-29 04:12 | External Medical Summary | Summary of Care ---
Author Name Unknown Organization [facility] Address [address] [place] [address] Phone [phone] Care Team Providers Care Hospitality Aide Name Role Phone Nikunj Plascencia MD Primary Care Provider [phone] Reason for Visit * Auth/Cert Specialty Diagnoses / Procedures Referred By Kieran t Referred To Contact Diagnoses Renal calculi Renal calculi [N20.0] Procedures CYSTO/URETERO W/LITHOTRIPSY CYSTOURETHROSCOPY URETEROSCOPY WITH LITHOTRIPSY AND STENT INSERTION Referral ID Status Reason Start Date Expiration Date Visits Re quested Visits Authorized [id number] Encounter Details Date Type Department Care Team (Latest Contact Info) Description 04/03/2023 11:39 AM EST - 04/03/2023 5:07 PM EST Hospital Encounter OR [facility], OPERATING ROOM [facility], [facility] [address], [place] [id number] Luis Manuel Sandy MD [address] [place] [address] Pt Handout (on AVS) Discharge Disposition: Home - Self Care Allergies Active Allergy Reactions Criticality Noted Date Comments Egg Shells Nausea/vomiting Medium 06/16/2018 Other reaction(s): GI SYMPTOMS Egg Yolk High 11/29/2019 Other reaction(s): GI upset Ibuprofen Other (Please comment) Medium 07/30/2010 Stomach upset Morphine Edema face/lips/tongue High 08/28/2021 Other reaction(s): LEGS SWELL documented as of this encounter (statuses as of 04/04/2023) Medications Medication Sig Dispensed Refills Start Date [...] Particles (Cymbalta) 0 06/20/2022 Active Saline Nasal [place] 0.65 % Nasal Solution ([place]) Q6H 0 06/06/2022 Active Clobetasol Propionate 0.05 [...] the morning. 90 Capsule 3 04/03/2023 Active documented as of this encounter (statuses as of 04/04/2023) Active Problems Problem Noted Date Diagnosed Date Renal stone 03/21/2023 Food insecurity 01/02/2023 Overview: Per [facility] Protocol Presence of Watchman left atrial appendage closu re device 12/19/2022 PAF (paroxysmal atrial fibrillation) 08/17/2022 Overview: Added automatically from request for surgery [id number] Nasal septal perforation 06/13/2022 Overview: Per ENT [...] as of this encounter (statuses as of 04/04/2023) Resolved Problems Problem Noted Date Diagnosed Date [...] 140/90 12/12/201111/09 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 07/30/2018 Overview: [place] palsy Tinea 06/27/2011 07/30/2018 Mixed urge and stress incontinence 12/15/2008 10/08/2019 ADVANCE DIRECTIVE INFORMATION 06/17/2004 10/08/2019 documented as of this encounter (statuses as of 04/04/2023) Immunizations Name Administration Dates Next Due COVID-19 mRNA, LNP-s, No Pre serve, 2-Dose Series ([employer]) 10/05/2020,09/14/2020 Covid-19, Mrna, Lnp-s, Pf, B ivalent, 30 Mcg, IM, 12 yrs and above ([employer]) 05/26/2022 Pneumococcal Conjugate Vacc, 13 Valent (Prevnar) 05/30/2016 Pneumococcal Conjugate Vacci ne, 20-valent ([id number]) 04/03/2023 Seasonal Influenza Virus Vac cine, Unspecified [...] Sign Reading Time Taken Comments Blood Pressure 137/101 04/03/2023 4:30 PM EST Pulse 68 04/03/2023 4:30 PM EST Temperature 36.1 C (97 F) 04/03/2023 4:15 PM EST Respiratory Rate 19 04/03/2023 4:30 PM EST Oxygen Saturation 100% 04/03/2023 4:30 PM EST Inhaled Oxygen Concentration - - Weight 126.6 kg (279 lb) 04/03/2023 11:49 AM EST Height 162.6 cm (5' 4") 04/03/2023 11:49 AM EST Body Mass Index 47.89 04/03/2023 11:49 AM EST documented in this encounter Functional Status Functional [...] Instr - AVS* Shaun Anna MD - 04/03/2023 3:29 PM EST Discharge Date: 04/03/2023 Check your Patient Education Brochure for further information. You may call [phone] between the hours of 7:00 a.m. - 8:00 p.m. for the first 24 hours. After the initial 24 hours, please contact your physician at [phone]. After 5:00 p.m. or on the weekend, call [phone] and ask for thephysician personal care assistant. [facility] is available 24 hours a day [...] hours. Control of Pain and Stent Discomfort: Acetaminophen (Tylenol) according to manufacturers instructions. Warnings: Call promptly in case of: A. [...] dilute urine will burn less with urination. Instructions for Ureteral Stent A stent was placed in your ureter (the tube from your kidney to your bladder) Some discomfort is normal. Certain movements may trigger pain or a feeling that you need to urinate. You may also feel soreness or pressure before or during urination. These symptoms will go away a few days after the stent has been removed. Your urine may be slightly pink or red. This is due to bleeding caused by minor irritation from thestent. This may happen on and off while you have the stent in place. It is important to drink water (at least 1 liter or quart each day) to dilute your urine. AFTER the stent is removed you may have ureteral spasms. This may feel very similar to pain caused by a kidney stone. This pain will pass with time as the swelling in your ureter subsides. Warm showers can help with ureteral spasm pain. The ureteral stent is temporary and should not remain in your body. A stent that stays in for too long can be dangerous and possibly require major surgery to extract from your body. It is extremely important that you keep your follow up appointments with the urology department. Please call our office at [phone] if you have any questions. Control of Pain and Stent Discomfort: Ibuprofen (Motrin) and acetaminophen (Tylenol) according to manufacturers instructions. Take tamsulosin (Flomax) 0.4 mg daily to help with stent discomfort. You can restart taking plavix tomorrow 04/04 Follow up A follow up appointment will be made for you with Dr. Sandy in 2-3 weeks for your next ureteroscopy. You will be called with this appointment. If you are not contacted about this appointment -within1 week you should call [phone] to confirm the date. See your primary care physician (Nikunj Plascencia MD) as needed. Future Appointments Appt Date/Time Provider Department 04/13/2023 2:00 PM Kwesi Allison [facility], [facility] 04/20/2023 1:00 PM XR D1 [facility] Radiology, [place] 04/20/2023 1:45 PM Luis Manuel Sandy MD Urology, [place] 05/16/2023 1:30 PM MARKET RISK ANALYST 2 [facility] Cardiac Studies, [facility] 05/19/2023 1:30 PM Lila Burger CRNP Cardiology, [facility] 05/24/2023 2:00 PM Eveline Layne DPM Podiatry [facility] 06/07/2023 2:30 PM Cyril Borges MD Dermatology [facility] 06/14/2023 1:00 PM Conor Venegas PA-C Cosmetic Surgery & Aesthetics [facility] 06/19/2023 1:30 PM Pf, Nurse Rheum Rheumatology [facility] 06/27/2023 1:20 PM Nikunj Plascencia MD Family Practice [facility] 07/03/2023 2:00 PM Geovanni Linder MD Nephrology, [facility] 07/05/2023 1:00 PM 4 [facility] 07/05/2023 2:15 PM Luis Manuel Sandy MD Urology, [place] 12/20/2023 2:30 PM [facility] Radiology, [facility] 12/20/2023 3:20 PM John Yoder MD Rheumatology [facility] documented in this encounter Progress Notes * Maria Del Rosario Yoo MD - 04/03/2023 3:29 PM EST [facility] [address] [facility] [id number] OUTPATIENT SURGERY DISCHARGE SUMMARY NOTE Name: Caroline Paulino Location: [facility]/CT Date: 04/03/2023 Time: 3:29 PM Surgery Date: 04/03/2023 Procedure: Procedure(s): CYSTOURETHROSCOPY URETEROSCOPY WITH LITHOTRIPSY AND STENT INSERTION Right Surgeon: Surgeon(s): Luis Manuel Sandy MD Kashkoush, Jasmine Iman, MD Battin, Alexander Owen, MD Discharge Diagnosis: Tight distal ureter After examination of this patient, I have determined she is ready for discharge to home when the patient meets criteria. Discharge instructions were given to the patient. documented in this encounter H&P Notes * Shaun Anna MD - 04/03/2023 2:27 PM EST HISTORY & PHYSICAL INTERVAL NOTE [facility]-[address] [place] [id number] History and Physical Update: Name: Caroline Paulino Location: OR [facility]/OR Date: 04/03/2023 Time: 2:27 PM DATE OF HISTORY AND PHYSICAL: 03/20/2023 BP: 150 mmHg/85 mmHg (04/03/23 1312) Pulse: 71 (04/03/23 1312) Temp: 36.89 C (04/03/23 1312) Temp Summary: Temp Min: 36.9 C (98.4 F) Max: 36.9 C (98.4 F) SpO2: 100 % (04/03/23 131) O2 flow rate: 0 L/MIN (04/03/23 131) Supplemental O2 Delivery: Room Air, None (04/03/23 1419) Does patient take a beta kristofer? metoprolol Did patient stop anticoagulants? Plavix held 5 days Heart Exam: regular rate and rhythm, well perfused Lung Exam: clear to auscultation bilaterally Other Pertinent Physical Exam: soft nontender I have reviewed the H&P previously performed and examined the patient today. There are no new findings noted. Shaun Anna MD Urology PGY-2 [facility] 04/03/2023, 2:28 PM * Maria Elena Das PA-C - 03/20/2023 3:30 PM EST HISTORY AND PHYSICAL EXAMINATION - Urology Name: Caroline Paulino Date: 03/20/2023 Time: 3:30 PM PCP: Nikunj Plascencia MD @PCPADD@ C/c Pre-operative History and Physical HPI: This 67 year old female presents to the clinic today, 03/20/2023, for pre- operative H&P forplanned surgery. Surgery to be performed is a cysto with right uscope laser lithotripsy basket stone removal right ureteral stent placement/exchange C-arm scheduled for 04/03/[address] Sandy. Thepatient has a PMHx significant for heart disease. The patient was seen in Urology clinic 12/28/2022 secondary to 9 mm right lower pole renal calculus on renal US. It was previously measuring [address] scan from 05/2019, and significantly improved nocturia on oxybutynin. Due to the increase in size of the left renal calculus, we obtained a CT scan of the abdomen pelvis. The CT scan on 01/27/2023 showed approximately 8-9 mm right intrarenal calculus. No evidence of hydronephrosis or ureteral stones. She continues to experiencing some intermittent right side low back pain. The patient denies hematuria, dysuria, obstructive or irritative voiding complaints, flank pain, f/c, n/v/c/d. The patient denies h/o TIA/CVA, DC, sleep apnea, DVT/PE, or DM. +Watchman in place and currently on Plavix anti-coagulation. She had cholecystectomy before. She is not a smoker. Her parents, brother and sister all had kidney stones. She has no family history of bladder, kidney or prostate cancer. PAST MEDICAL HISTORY: Past Medical History: Diagnosis Date --- DIABETES --- prediabetes Acute on chronic diastolic CHF (congestive heart failure) ([facility]) 01/26/2018 Allergic rhinitis Collazo's palsy left eye palsy Benign neoplasm of colon 11/20/2010 hyperplastic polyps- repeat colonoscopy in 10 years Bicuspid aortic valve 10/09/2019 Bullous pemphigoid 08/17/2016 txt with cellcept Chronic insomnia 12/22/2020 CKD (chronic kidney disease) stage 3, GFR 30-59 ml/min ([facility]) Compression fracture of body of thoracic vertebra ([facility]) 08/17/2016 Controlled substance agreement terminated 10/20/2021 Current tear of medial cartilage or meniscus of knee left knee Depression with anxiety 10/20/2021 Depressive disorder, not elsewhere classified Disorder of adrenal gland ([facility]) 01/26/2018 Dyslipidemia 12/20/2019 Fall 06/30/2022 Female stress [...] remission (HCC) 01/26/2018 S/P kyphoplasty 08/17/2016 Sacroiliitis ([facility]) 01/26/2018 Senile osteoporosis 08/29/2017 Spinal stenosis of lumbar region without neurogenic claudication 01/04/2017 Status post total right knee replacement 06/06/2018 Tibial plateau fracture 01/22/2015 PMHx has been reviewed and updated. PAST SURGICAL HISTORY: Past Surgical History: Procedure Laterality Date ARTHROPLASTY KNEE TOTAL Right 06/04/2018 ARTHROPLASTY KNEE TOTAL performed by Duc Kimble Jr., MD at OR [facility] ASP/INJECT GANGLION CYST bilaterally, right x2 COLONOSCOPY THRU STOMA, W/BIOPSY 11/20/2010 hyperplastic polyps- repeat colonoscopy in 10 years COLONOSCOPY, DIAGNOSTIC (RECTUM) 10/16/2017 poor prep, procedure aborted/[facility] COLONOSCOPY, DIAGNOSTIC (RECTUM) 09/19/2018 diverticulosis/COLONOSCOPY FLEXIBLE PROXIMAL DIAGNOSTIC performed by Kristen Nogueira MD at ENDOSCOPY [facility] COLONOSCOPY, DIAGNOSTIC (RECTUM) 03/24/2021 adenomatous polyp, diverticulosis, repeat 5 yrs / [facility] CORONARY ANGIOGRAPHY W/LEFT HEART CATH Right 11/07/2016 CORONARY ANGIOGRAPHY W/LEFT HEART CATH performed by Fernando Germain DO at CARDIAC LABS [facility] EGD, FLEXIBLE, DIAGNOSTIC 10/13/2017 normal/[facility] EGD, FLEXIBLE, DIAGNOSTIC 03/24/2021 Barretts, gastritis / [facility] HYSTEROSCOPY;ENDOMETRIAL ABLAT 1999 hysteroscopy, rollerball ablation INFORMATION bengin lump removed [...] by Michael Smith MD at OR [facility] MAMMOGRAM SCREENING-BILATERAL 2004 [facility] PERC CLOSURE TRANSCATH LEFT ATRIAL APPENDAGE W/ENDOCARDIAL IMPLANT Right 10/06/2022 PERCUTANEOUS CLOSURE LEFT ATRIAL APPENDAGE IMPLANT performed by Austin [facility]za [facility] REMOVAL OF APPENDIX 11/2018 SACROILIAC JOINT INJECT [...] 07/29/2019 INJECTION SACROILIAC JOINT performed by Yannick Daniel DO at OR [facility] SACROILIAC JOINT INJECT W/GUIDANCE 04/13/2020 INJECTION SACROILIAC JOINT performed by Yannick Daniel, at OR [facility] THIGH OR KNEE SURGERY NEC 2006 Knee/Leg Other Procedures Unlisted PSHx has been reviewed and updated. FAMILY HISTORY: Family History Problem Relation Age of Onset Stroke Mother dementia. complications COVID as well. Arthritis Mother Cancer Mother uterine Heart Disorder Mother bypass pig valve aorta Heart Disorder Father , age 62 Diabetes Father Stroke Father Hypertension Father Colon cancer Father Thyroid Disorder Sister No Past Hx Sister Other (Other) Sister hypersensitive to touch Heart Disorder Brother congenital FMHx has been reviewed and updated. SOCIAL HISTORY: Social History Socioeconomic History Marital status: Single Spouse name: Not on file Number of children: 0 Years of education: Not on file Highest education level: Not on file Occupational History Occupation: [employer] Employer: [employer] Comment: [employer] Tobacco Use Smoking status: Former Packs/day: 0.50 [...] of Food in the Last Year: Patient refused Transportation Needs: Not on file Physical Activity: Not on file Stress: Not on file Social Connections: Not on file Intimate Partner Violence: Not on file Housing Stability: Not on file SHx has been reviewed and updated. @CMEDS@ Review of patient's allergies indicates: Allergen Reactions Egg Yolk Other reaction(s): GI upset Egg Shells Other reaction(s): GI SYMPTOMS Ibuprofen Other (Please comment) Stomach upset Morphine Other reaction(s): LEGS SWELL ROS EXAM: CONSTITUTIONAL: No change in weight, No weakness, No fatigue, and No fevers, sweats, or chills CARDIOVASCULAR: No chest pain, No shortness of breath, No dyspnea on exertion, No orthopnea, No paroxysmal nocturnal dyspnea, No edema, No palpitations, and No syncope PULMONARY: No cough, sputum, or hemoptysis, No wheezing, No rales, No shortness of breath, and No recent change in breathing GASTROINTESTINAL: No abdominal pain, No change in bowel habits, No significant heartburn, No significant change in appetite, No nausea, vomiting, diarrhea, or constipation, No hematemesis, No blood in stools or black tarry stools, No abdominal bloating or early satiety, and No dysphagia : As above NEUROLOGIC: Normal balance, No headaches, No seizures, and No weakness All other systems normal/negative PHYSICAL EXAMINATION: Most Recent Vital Signs: There were no vitals taken for this visit. General: alert, awake, oriented to person and place and situation Skin: Warm, dry, w/o rash or diaphoresis HEAD: Normocephalic, atraumatic Heart: regular rate, regular rhythm. She does have heart murmur. Chest: clear to auscultation bilaterally Abdomen: soft, non-tender, non-distended Back: no costo-vertebral angle tenderness Extremities: no edema 01/27/2023 CT IMPRESSION: 1. Approximately 8-9 mm right intrarenal calculus. No evidence of hydronephrosis or ureteral stones. 2. Remainder of findings as described. PSA Results: No results found for: "PSA" Impression: 1. Pre-operative Examination 2. 67 year old female with approximately 8-9 mm right intrarenal calculus. No evidence of hydronephrosis or ureteral stones. Plan: - Patient scheduled for a cysto with right uscope laser lithotripsy basket stone removal right ureteral stent placement/exchange C-arm scheduled for 04/03/[address] Sandy. - Pre-op labs: CBC, BMP, Urine Culture. - Pre-Op diagnostics ordered: none - Pre-operative anticoagulation management includes: stop Plavix 5 days before surgery - The following risks of surgery include but are not limited to the following: bleeding, infection,pain, injury to adjacent organs, need for additional surgery, readmission to the hospital, anesthesia associated risks including but not limited, heart attack, stroke, Deep Vein Thrombosis (DVT), Pulmonary Embolus (PE), pneumonia, risk of not waking up, risk of were reviewed with the patient.The patient has no questions regarding the risks of surgery. - Pt was instructed to notify clinic with any changes to health status prior to procedure. - Pt will receive preop antibiotics and early mobilization to decrease surgical risks. - Pt knows to be NPO (nothing by mouth) after midnight the night before surgery. Pt informed to take any necessary meds with sips of water only. - The following PREP was reviewed and given to the patient: none - Patient handouts given for: Adverse reaction, patient instructions - Patient's questions regarding the preparations as well as the procedure were answered to the bestof my ability. Patient was agreeable to everything that was discussed and displayed an understanding of all information given. Will proceed as planned. - Consent was signed and scanned into the chart on the day of surgery. Maria Elena Das PA-C Department of Urology [facility] 03/20/2023 3:30 PM documented in this encounter Nursing Notes * Jayleen Ramos RN - 04/03/2023 3:58 PM EST Dual Licensed Skin Assessment completed by self and Dionisio Medrano. The patient is/has a N/A Skin Breakdown (includes non blanchable erythema): No erythema skin folds of abdomen and b/l breast * Shaun Macedo RN - 04/03/2023 2:19 PM EST Dual Licensed Skin Assessment completed by Paula Macedo RN and Mahamed Rushing RN. The patient is/has a N/A Skin Breakdown (includes non blanchable erythema): yes Right 2nd toe tip black and 3rd toe just below nailbed black . Pt states she is seeing a podiatristnext week. Pt has skin break down in all skin folds of abdomen and buttocks * Jerel Benjamin RN - 03/31/2023 10:13 AM EST NO ANESTHESIA EVAL REQUESTED PER CASE DOCUMENTATION. PREOP PATIENT INFORMATION AND EDUCATION: MEDICATION INSTRUCTIONS: The day of surgery/procedure, you may TAKE the following medications with a sip of water up to 2 hours prior to your arrival time: Percocet if needed Metoprolol Atorvastatin Pregabalin Valacyclovir Sumatriptan if needed Duloxetine Benadryl if needed Memantine Nitroglycerin if needed Buspirone Eye drops as directed if needed AVOID/ DO NOT TAKE any medications the morning of surgery/procedure that are not listed above. STOP taking the following medications the noted [...] by your surgical service take as directed. Infant/pediatric patients who currently drink breast milk, infant [...] deodorants after bathing. No hairspray, or nail trinidadian on fingers or toes. Day of surgery/procedure [...] name and bring to hospital. -An escort drivers' cash clerk is required if you are being discharged [...] taxi home, you must have your responsible constitution party accompany you in the taxi ride [...] is important to make arrangements for a drivers' cash clerk to take you home. Please be aware our visitation policies are subject to change Professionals, attendants, caregivers or family members are allowable visitors for patients with intellectual, developmental or cognitive disabilities, communication barriers or behavioral concerns. Because patients' and families' needs vary, they will be taken into account when applying visitation restrictions. [facility]: Contact # [phone] Directions to Surgical Suite in from the [place] Entrance The Surgical Waiting Room [facility] the [facility]. Enter through Main Lobby Entrance and the Waiting Room is directly in front of you. Proceed to check in and give them your name. Directions to Surgical Suite from the East Entrance Enter the East entrance and follow the hallway to the J elevator. Take the J elevator up to Level 1. Continue down the long hallway to the main [place] Lobby. The Surgical Waiting Room will be on your Right. Proceed to check in and give them your Name. Directions to Surgical Suite from the Parking Garage Enter the [facility] lobby and proceed down the arias to the left. At the end of the arias, turn right. Continue down the long hallway to the main [place] Lobby. The Surgical Waiting Room will be on your Right. Proceed to check in and give them your Name. THANK YOU FOR CHOOSING [facility]! Pre-operative chart review completed-instructions provided based on current medication list in [facility] Presurgery instructions sent to patient via [employer] message. documented in this encounter OR Notes * OR Surgeon - Shaun Anna MD - 04/03/2023 3:44 PM EST UROLOGY OPERATIVE REPORT Caroline Paulino DATE: 04/03/2023 SERVICE: UROLOGY PRE OPERATIVE DIAGNOSIS: right renal stone POST OPERATIVE DIAGNOSIS: same SURGEON: Dr. Luis Manuel Sandy MD, Dr. Maria Del Rosario Yoo and Dr. Shaun Anna MD PRESCHOOL ASSISTANT DIRECTOR: None ANESTHESIA: LMA OPERATION: 1. Cystoscopy 2. Fluoroscopic guidance 3. Retrograde pyelogram 4. Placement of 6Fr x 22cm JJ stent 5. In and out bladder drainage History and Indications: This is a 67 year old female with history of right flank pain with findingof 8mm nonobstructing right renal stone. The decision was made to proceed today for cystoscopy, possible right ureteroscopy with laser lithotripsy, stone basketing. Patient understood the risks and benefits of the procedure and elected to proceed. EBL: Minimal Fluids: < 1000ml crystalloid UO: not measured Case description: clean contaminated Specimens/ Pathology: none Complications: None Condition: Stable Drains: 6 Fr 22cm centimeter double J ureteral stent FINDINGS: -Normal urethra, squamous metaplasia at bladder neck, bilateral orthotopic UO -narrow right UO, easily advanced sensor wire, unable to advance 8Fr dual lumen -Right proximal ureteral extravasation -Successful placement of Right ureteral stent Description of Operation: The patient was identified, and the procedure verified. After induction of GETA, the patient was prepped and draped in the dorsal lithotomy position. A 22.5F cystoscope sheath and obturator was passed per urethra, and inspection of the bladder mucosa revealed findings listed above, no neoplastic changes. The ureteral orifices were of normal position and configuration. A 0.038 Sensor guidewire was fed up the right ureter under fluoroscopic guidance until a curl was seenin the renal pelvis. The scope and catheter were backed out over the wire. A dual lumen was attempted to be advanced up right ureter but was met with resistance. 20cc of contrast was used through second dual lumen port that noted right proximal ureteral extravasation. Findings were noted again withexchange of dual lumen with 5Fr. A [employer] [id number] centimeter JJ stent was then fed in a retrograde fashion up the wire until a curl was seen in the renal pelvis. After removal of the wire, distal curl was seen in the bladder. The bladder was emptied via i/o catheterization. The patient was then transfered to I/O surgery in stable condition. Dr. Sandy was present and scrubbed for the entire procedure. Clinical Plan: 1. Discharge to Home When Stable in I/O surgery 2. Will reschedule for R URS LL, possible stent exchange Shaun Anna MD Urology PGY-2 [facility] 04/03/2023, 3:45 PM Associated attestation - Luis Manuel Sandy MD - 04/03/2023 4:53 PM EST A procedure was performed. I was present for entire procedure. I agree with the trainee note. documented in this encounter Miscellaneous Notes * Pt Handout (on AVS) - Jayleen Ramos RN - 04/03/2023 4:30 PM EST Images from the original note were not included. [id number] Having a Ureteral Stent A ureteral stent is a soft, flexible plastic tube that's 8 to 11 inches long. It?s temporarily put into a ureter to help drain urine into the bladder. One end goes in the kidney. The other end goes in the bladder. A coil on each end holds the stent in place. The stent can?t be seen from outside thebody. It shouldn?t interfere with your normal routine. Your stent will be put in by a healthcare provider trained in treating the urinary tract (a urologist) or another specialist. The procedure is done in a hospital or surgery center. You?ll likely go home the same day. When is a ureteral stent used? A ureteral stent may be used: To bypass a blockage in a kidney or ureter During kidney stone removal To let a ureter heal after surgery Before the procedure Your healthcare provider will give you instructions to prepare for the procedure. X-rays or other imaging tests of your kidneys and ureters will be done beforehand. During the procedure You receive medicine to prevent pain and help you relax or sleep during the procedure. Once thistakes effect, the procedure starts. The healthcare provider puts a cystoscope (lighted instrument) through the urethra and into the bladder. This shows the opening to the ureter. A thin wire is carefully threaded through the cystoscope, up the ureter, and into the kidney. The stent is inserted over the wire. A fluoroscope (special X-ray machine) is used to help position the stent. When the stent is in place, the wire and cystoscope are removed. While you have a stent Some discomfort is normal. Certain movements may trigger pain or a feeling that you need to urinate. You may also feel mild soreness or pressure before or during urination. These symptoms will go away a few days after the stent is removed. Medicine to control pain or bladder spasms or to prevent infection may be prescribed. Take it asdirected. Drink plenty of fluids to help flush out your urinary tract. Your urine may be slightly pink or red. This is due to bleeding caused by minor irritation from the stent. This may happen on and off while you have the stent. As with any synthetic device placed in the body, there is a risk of infection. The stent may have to be removed if this happens. How long will you need a stent? The stent is often taken out after the blockage in the ureter is treated or the ureter has healed. This may take 1 week to 2 weeks, or longer. If a stent is needed for a long time, it may need to be changed every few months. When to call your healthcare provider Contact your healthcare provider right away if: Your urine contains blood clots or you see a large amount of blood-tinged urine You have symptoms similar to those you had before the stent was placed You constantly leak urine You have a fever of 100.4F (38C) or higher, or as directed by your healthcare provider You have chills You experience nausea or vomiting Your pain is not relieved with medicine The end of the stent comes out of the urethra You experience new or worsening symptoms Last Reviewed Date: 08/20/202119991397-7312 [employer]. All rights reserved. This information is not intended as a substitute for professional medical care. Always follow your healthcare professional's instructions. * Pt Handout (on AVS) - Jayleen Ramos RN - 04/03/2023 4:28 PM EST Images from the original note were not included. 56899 Having a Ureteral Stent A ureteral stent is a soft, flexible plastic tube that's 8 to 11 inches long. It?s temporarily put into a ureter to help drain urine into the bladder. One end goes in the kidney. The other end goes in the bladder. A coil on each end holds the stent in place. The stent can?t be seen from outside thebody. It shouldn?t interfere with your normal routine. Your stent will be put in by a healthcare provider trained in treating the urinary tract (a urologist) or another specialist. The procedure is done in a hospital or surgery center. You?ll likely go home the same day. When is a ureteral stent used? A ureteral stent may be used: To bypass a blockage in a kidney or ureter During kidney stone removal To let a ureter heal after surgery Before the procedure Your healthcare provider will give you instructions to prepare for the procedure. X-rays or other imaging tests of your kidneys and ureters will be done beforehand. During the procedure You receive medicine to prevent pain and help you relax or sleep during the procedure. Once thistakes effect, the procedure starts. The healthcare provider puts a cystoscope (lighted instrument) through the urethra and into the bladder. This shows the opening to the ureter. A thin wire is carefully threaded through the cystoscope, up the ureter, and into the kidney. The stent is inserted over the wire. A fluoroscope (special X-ray machine) is used to help position the stent. When the stent is in place, the wire and cystoscope are removed. While you have a stent Some discomfort is normal. Certain movements may trigger pain or a feeling that you need to urinate. You may also feel mild soreness or pressure before or during urination. These symptoms will go away a few days after the stent is removed. Medicine to control pain or bladder spasms or to prevent infection may be prescribed. Take it asdirected. Drink plenty of fluids to help flush out your urinary tract. Your urine may be slightly pink or red. This is due to bleeding caused by minor irritation from the stent. This may happen on and off while you have the stent. As with any synthetic device placed in the body, there is a risk of infection. The stent may have to be removed if this happens. How long will you need a stent? The stent is often taken out after the blockage in the ureter is treated or the ureter has healed. This may take 1 week to 2 weeks, or longer. If a stent is needed for a long time, it may need to be changed every few months. When to call your healthcare provider Contact your healthcare provider right away if: Your urine contains blood clots or you see a large amount of blood-tinged urine You have symptoms similar to those you had before the stent was placed You constantly leak urine You have a fever of 100.4F (38C) or higher, or as directed by your healthcare provider You have chills You experience nausea or vomiting Your pain is not relieved with medicine The end of the stent comes out of the urethra You experience new or worsening symptoms Last Reviewed Date: 08/20/202119998899-3308 [employer]. All rights reserved. This information is not intended as a substitute for professional medical care. Always follow your healthcare professional's instructions. * Pt Handout (on AVS) - Jayleen Ramos RN - 04/03/2023 4:28 PM EST Images from the original note were not included. [id number] Having a Ureteral Stent A ureteral stent is a soft, flexible plastic tube that's 8 to 11 inches long. It?s temporarily put into a ureter to help drain urine into the bladder. One end goes in the kidney. The other end goes in the bladder. A coil on each end holds the stent in place. The stent can?t be seen from outside thebody. It shouldn?t interfere with your normal routine. Your stent will be put in by a healthcare provider trained in treating the urinary tract (a urologist) or another specialist. The procedure is done in a hospital or surgery center. You?ll likely go home the same day. When is a ureteral stent used? A ureteral stent may be used: To bypass a blockage in a kidney or ureter During kidney stone removal To let a ureter heal after surgery Before the procedure Your healthcare provider will give you instructions to prepare for the procedure. X-rays or other imaging tests of your kidneys and ureters will be done beforehand. During the procedure You receive medicine to prevent pain and help you relax or sleep during the procedure. Once thistakes effect, the procedure starts. The healthcare provider puts a cystoscope (lighted instrument) through the urethra and into the bladder. This shows the opening to the ureter. A thin wire is carefully threaded through the cystoscope, up the ureter, and into the kidney. The stent is inserted over the wire. A fluoroscope (special X-ray machine) is used to help position the stent. When the stent is in place, the wire and cystoscope are removed. While you have a stent Some discomfort is normal. Certain movements may trigger pain or a feeling that you need to urinate. You may also feel mild soreness or pressure before or during urination. These symptoms will go away a few days after the stent is removed. Medicine to control pain or bladder spasms or to prevent infection may be prescribed. Take it asdirected. Drink plenty of fluids to help flush out your urinary tract. Your urine may be slightly pink or red. This is due to bleeding caused by minor irritation from the stent. This may happen on and off while you have the stent. As with any synthetic device placed in the body, there is a risk of infection. The stent may have to be removed if this happens. How long will you need a stent? The stent is often taken out after the blockage in the ureter is treated or the ureter has healed. This may take 1 week to 2 weeks, or longer. If a stent is needed for a long time, it may need to be changed every few months. When to call your healthcare provider Contact your healthcare provider right away if: Your urine contains blood clots or you see a large amount of blood-tinged urine You have symptoms similar to those you had before the stent was placed You constantly leak urine You have a fever of 100.4F (38C) or higher, or as directed by your healthcare provider You have chills You experience nausea or vomiting Your pain is not relieved with medicine The end of the stent comes out of the urethra You experience new or worsening symptoms Last Reviewed Date: 08/20/202119991866-3166 [employer]. All rights reserved. This information is not intended as a substitute for professional medical care. Always follow your healthcare professional's instructions. documented in this encounter Plan of Treatment Upcoming Encounters Date Type Department Care Team (Late st Contact Info) Description 04/13/2023 2:00 PM EST Office Visit Pharmacy, [address] [place] [address] [place] [address] 04/20/2023 1:00 PM EST Appointment Radiology, [place] [address] [place] [id number] 04/20/2023 1:45 PM EST Procedure Only Urology, [place] [address] [place] [address] Luis Manuel Sandy MD [address] [place] [address] 05/16/2023 1:30 PM EDT Cardiac Studies Cardiac Studies, [facility] [address] [facility] [place] [address] 05/19/2023 1:30 PM EDT Office Visit Cardiology, [address] [place] [address] Lila Burger CRNP [address] [place] [address] 05/24/2023 2:00 PM EDT Office Visit Podiatry [facility] [address] [place] [address] Eveline Layne, DPM [address] [place] [address] 06/07/2023 2:30 PM EDT Office Visit Dermatology [facility] [address] [place] [address] Cyril Borges MD [address] [place] [address] 06/14/2023 1:00 PM EDT Office Visit Cosmetic Surgery & Aesthetics [facility] [address] [place] [address] Conor Venegas PA-C [address] [place] [address] 06/19/2023 1:30 PM EDT Nurse Only Rheumatology [facility] [address] [place] [address] Pf, Nurse Rheum [address] [place] [address] 06/27/2023 1:20 PM EDT Office Visit Family Practice [facility] [address] [place] [address] Nikunj Plascencia MD [address] [place] [address] 07/03/2023 2:00 PM EDT Office Visit Nephrology, [facility] [address] [place] [address] Geovanni Linder MD [address] [place] [address] 07/05/2023 1:00 PM EDT Appointment Radiology, [address] [address] 07/05/2023 2:15 PM EDT Office Visit Urology, [place] [address] [place] [address] Luis Manuel Sandy MD [address] [place] [address] 12/20/2023 2:30 PM EDT Imaging Radiology, [address] [place] [address] 12/20/2023 3:20 PM EDT Office Visit Rheumatology [address] [place] [address] John Yoder MD [facility] [employer] [facility] [place] [address] Scheduled Orders Name Type Priority Associated Diagnoses Orde r Schedule GLUCOSE METER, POINT OF CARE (COMMUNICATION ORDER) Point of Care Testing STAT Perform Now for 1 Occurrences starting 04/03/2023 until 04/03/2023 Scheduled Procedures Name Priority Associated Diagnoses Date/Ti [...] D LEVEL ONCE IN A LIFETIME-USE SMARTSET# [id number] Completed 06/10/2022, 05/28/2021, 06/20/2020, Additional history exists [...] this encounter Medical Devices Implanted Type Area Relay Repairer Device Identifier Shelf Expiration Date Model / Serial / Lot Kyphon Hv-R Bone Cement Implanted:Qty: 1 on 08/17/2016 by Michael Smith MD at OR [facility] N/A: Spine Thoracic 03/19/2019 C01A / [id number] / [id number] Persona The Personalized Knee System Vivacit-E Highly Crosslinked Polyethylene Articular Surface Medial Congruent Implanted:Qty: 1 on 06/04/2018 by Duc Kimble MD at OR [facility] Right: Knee [employer] 11/19/2022 [id number] 08-31 [id number] Device Watchman Flx 27mm - [id number] Implanted:Qty: 1 on 10/06/2022 by Austin Penaloza MD at CARDIAC LABS [facility] 1o1Media : INTRV CARD [id number] 08/07/2025 [id number] / / [id number] documented as of this encounter Procedures Procedure Name Priority Date/Time Associated Diagnosis Comments XR PYELOGRAM, RETROGRADE IN OR- TECH CHARGE Routine 04/03/2023 3:36 PM EST GLUCOSE METER, POINT OF CARE REJI 04/03/2023 1:54 PM EST documented in this encounter Results * XR PYELOGRAM, RETROGRADE IN OR- TECH CHARGE (04/03/2023 3:36 PM EST) Narrative Scheduling, Silent - 04/03/2023 3:37 PM EST This is an imaging study not interpreted or resulted by a [facility] or [facility] contracted radiologist. Francesco Sharif MD RADIOLOGY (RAD GENER AL) * GLUCOSE METER, POINT OF CARE (04/03/2023 1:54 PM EST) Glucose Meter 89 70 - 120 mg/dL 04/03/2023 1:56 PM EST [email or web address] Blood Whole blood specimen / Unknown 04/03/2023 1:54 PM EST 04/03/2023 1:56 PM EST Luis Manuel Sandy MD LAB POINT OF CARE TE ST DOCKED DEVICE UNSOLICITED RESULTS [facility] [address] [place] [address] documented in this encounter Visit Diagnoses Diagnosis Renal stone Calculus of kidney documented in this encounter Administered Medications Inactive Administered Medications - up to 3 most recent administrations Medication Order MAR Action Action Date Dose Rate Site Acetaminophen (Tylenol) tab 975 mg 975 mg, Oral, PREOP, First dose on Mon04/03/23 at 1330, Last dose on Mon04/03/23 at 1330, For 1 dose, Maximum 4 g acetaminophen/day. Avoid in patients with severe hepatic impairment or severe active liver disease. Administer 60 minutes prior to OR., Pre-Op Given 04/03/2023 1:57 PM EST 975 mg fentaNYL (PF) inj 100 mcg 100 mcg, IV Push, ONCE, On Mon04/03/23 at 1500, For 1 dose, When given IV Push its recommended that the dose be given over 3 to 5 minutes. Given 04/03/2023 2:39 PM EST 100 mcg isolyte-S pH 7.4 infusion Intravenous, at 100 mL/hr, Plasma-LYTE 148, isolyte-S, and isolyte-S pH 7.4 are considered equivalent - including for MAR barcode scanning., CONTINUOUS, Starting on Mon04/03/23 at 1330, Until Mon04/03/23 at 2107, Pre-Op Rate Verify 04/03/2023 3:32 PM EST 100 mL/hr New Bag 04/03/2023 1:57 PM EST 100 mL/hr lidocaine 1 % inj 1 mg 1 mg (0.1 mL), Percutaneous, ONCE PRN Other, Difficult IV starts requiring > 20 guage catheter and/ or by patient request, Starting on Mon04/03/23 at 1257, Until Mon04/03/23 at 1357, For 1 dose, Pre-Op Given 04/03/2023 1:57 PM EST 1 mg documented in this encounter Active and Recently Administered Medications Times are shown in EST. Scheduled Medication Order 04/01/2023 04/02/2023 04/03/2023 Acetaminophen (Tylenol) tab 975 mg (COMPLETED) 975 mg, Oral, PREOP, First dose on Mon04/03/23 at 1330, Last dose on Mon04/03/23 at 1330, For 1 dose, Maximum 4 g acetaminophen/day. Avoid in patients with severe hepatic impairment or severe active liver disease. Administer 60 minutes prior to OR., Pre-Op 1357 (Given - Provid er: Shaun Macedo RN) ceFAZolin (Ancef) in NSS ivpb 3 g (COMPLETED) 3 g, IV Piggyback, PREOP, 1 dose, First dose on Mon04/03/23 at 1330, Administer 60 minutes prior to skin incision, Pre-Op 1510 (Given - Provid er: Russell Chung DO) fentaNYL (PF) inj 100 mcg (COMPLETED) 100 mcg, IV Push, ONCE, On Mon04/03/23 at 1500, For 1 dose, When given IV Push its recommended that the dose be given over 3 to 5 minutes. 1439 (Given - Provid er: Helga Rushing RN) ketorolac (Toradol) 30 MG/ML inj 15 mg 15 mg, IV Push, ONCE, On Mon04/03/23 at 1330, For 1 dose, intraop at conclusion of case , Intra-Op 1330 (Due) Continuous Medication Order 04/01/2023 04/02/2023 04/03/2023 isolyte-S pH 7.4 infusion Intravenous, at 100 mL/hr, Plasma-LYTE 148, isolyte-S, and isolyte-S pH 7.4 are considered equivalent - including for MAR barcode scanning., CONTINUOUS, Starting on Mon04/03/23 at 1330, Until Mon04/03/23 at 2107, Pre-Op 1357 (New Bag - Prov ider: Shaun Macedo RN)1532 (Rate Verify - Provider: Jayleen Ramos, PADMINI)1647 (Stopped - Provider: Jayleen Ramos, PADMINI) PRN Medication Order 04/01/2023 04/02/2023 04/03/2023 Iothalamate Meglumine (Cysto-Conray) 17.2 % inj (CANCELED) ONCE PRN INTRA PROCEDURE, Starting on Mon04/03/23 at 1519, Until Mon04/03/23 at 1531, Intra-Op 1519 (Given - Provid er: Maria Del Rosario Yoo MD) lidocaine 1 % inj 1 mg (COMPLETED) 1 mg (0.1 mL), Percutaneous, ONCE PRN Other, Difficult IV starts requiring > 20 guage catheter and/ or by patient request, Starting on Mon04/03/23 at 1257, Until Discontinued, For 1 dose, Pre-Op 1357 (Given - Provid er: Shaun Macedo RN) sodium chloride IR 0.9 % irrigation (CANCELED) ONCE PRN INTRA PROCEDURE, Starting on Mon04/03/23 at 1444, Until 04/03/23 at 1531, Intra-Op 1444 (Given - Provid er: Luis Manuel Sandy MD) documented in this encounter Advance Directives Latest [...] the patient have Health Care Power of Surgical Physician Assistant? No Care Teams Hospitality Aide Relationship Specialty Start Date End Date Nikunj Plascencia MD [address] [place] [address] PCP - General Family Medicine 10/31/19 documented as of this encounter
--- OUTSIDE RECORDS SUMMARY | 2023-07-29 04:12 | External Medical Summary ---
Author Name Unknown Address Unknown Organization K01[place] [place] [address] [place] [address] Laboratory Report Ordering Provider Test Date Status ADELITA CALLES 03/31/2023 09:17:55 Final Observation Date Value Abnormality Reference (Units ) Status MYCODE SPECIMEN-SST 03/31/2023 09:17:55 Freezing of extracted DNA, whole blood and/or serum. Final Performing Location [facility] [place] [address] [place] [address]
--- OUTSIDE RECORDS SUMMARY | 2023-07-29 04:12 | External Medical Summary ---
Author Name Unknown Address Unknown Organization K01:[facility] - [address] [place] [address] Laboratory Report Ordering Provider Test Date Status ADELITA CALLES 03/31/2023 09:17:55 Final Observation Date Value Abnormality Reference (Units ) Status Sympoz (dba [employer]) SPECIMEN-LAV 03/31/2023 09:17:55 Freezing of extracted DNA, whole blood and/or serum. Final Performing Location [facility] [place] [address] [place] [address]
--- OUTSIDE RECORDS SUMMARY | 2023-07-29 04:12 | External Medical Summary | Summary of Care ---
Author Name Unknown Organization [facility] Address [address] [place] [address] Phone [phone] Care Team Providers Care Cooler Worker Name Role Phone Nikunj Plascencia MD Primary Care Provider [phone] Reason for Visit * Reason Onset Date Comments Medication Refill 04/02/2023 Encounter Details Date Type Department Care Team (Late st Contact Info) Description 04/02/2023 Refill Family Practice [facility] 132 [facility] [place] [address] Nikunj Plascencia MD 132 [facility] [place] [address] Spinal stenosis of lumbar region without neurogenic claudication Allergies Active Allergy Reactions Criticality Noted Date Comments Egg Shells Nausea/vomiting Medium 06/16/2018 Other reaction(s): GI SYMPTOMS Egg Yolk High 11/29/2019 Other reaction(s): GI upset Ibuprofen Other (Please comment) Medium 07/30/2010 Stomach upset Morphine Edema face/lips/tongue High 08/28/2021 Other reaction(s): LEGS SWELL documented as of this encounter (statuses as of 04/03/2023) Medications Medication Sig Dispensed Refills Start Date End Date Status OMEGA 3-6-9 FATTY ACIDS PO CAPS once daily 0 Suspended B-12 1000 MCG PO TBCR Take by mouth 1 Tablet daily . 0 Suspended VITAMIN D 1000 UNITS PO CAPS Take 1 Capsule by mouth in the morning. 60 Cap 0 10/18/2012 Suspended COLACE 100 MG PO CAPS 1 am & 1 at bedtime 0 Suspended Folic Acid 800 MCG TabletIndications:P rimary osteoarthritis of right knee Take 1 Tab by mouth daily. 30 Tab 4 05/03/2018 Suspended Additional Information vitamin c (ASCORBIC ACID) 250 MG TabletIndications:P rimary osteoarthritis of right knee Take 1 Tab by mouth daily. 30 Tab 3 05/03/2018 Suspended Additional Information busPIRone HCl 10 MG Oral Tablet (Buspar) Take 1 Tablet by mouth in the morning and 1 Tablet before bedtime. 0 06/10/2020 Suspended Nitroglycerin 0.4 MG Sublingual Tablet Sublingual (Nitrostat) Place 1 Tablet under the tongue every 5 minutes as needed for Pain, Chest. Up to 3 in 15 minutes. 25 Tablet 11 03/01/2021 Suspended Additional Information Patient not taking.Informant: Patient, Reported on 04/03/2023 DULoxetine HCl 60 MG Oral Capsule Delayed Release Particles (Cymbalta) Take 1 Capsule by mouth in the morning. 0 06/23/2021 Suspended Calcipotriene 0.005 % External Cream (Dovonex) Apply 2x daily to rash on face/trunk/arms until resolved, then when flaring 100 g 2 09/27/2021 Suspended Additional Information Betamethasone Dipropionate 0.05 % External OintmentIndications :Rash and nonspecific skin eruption Apply 2x daily to blisters and rash on face/trunk (back)/arms/legs until resolved, then when flaring 100 g 0 12/28/2021 Suspended Additional Information Memantine HCl 5 MG Oral Tablet (Namenda) Take 1 tablet daily for 1 week and then 1 tablet twice daily 180 Tablet 3 02/23/2022 Suspended Additional Information diphenhydrAMINE HCl 25 MG Oral Tablet Take 1 Tablet by mouth in the morning. 0 Suspended Clotrimazole 1 % External Cream (Lotrimin) Apply topically to affected area as needed for Itching. 30 g 5 05/09/2022 Suspended Additional Information Oxybutynin Chloride ER 5 MG Oral Tablet Extended Release 24 Hour (Ditropan XL) Take 1 Tablet by mouth in the morning. 90 Tablet 3 05/26/2022 Suspended Additional Information Patient taking differently:5 mg OralHS, Informant: Patient, Reported on 04/03/2023 DULoxetine HCl 30 MG Oral Capsule Delayed Release Particles (Cymbalta) 0 06/20/2022 Suspended Saline Nasal [place] 0.65 % Nasal Solution ([place]) Q6H 0 06/06/2022 Suspende d Clobetasol Propionate 0.05 % External Ointment (Temovate) Apply thin film to affected area at body twice daily as needed for up to 2 weeks at a time. Not for use at face, armpits, groin. 60 g 2 09/07/2022 Suspended Additional Information SUMAtriptan Succinate 25 MG Oral Tablet (Imitrex) Take 2 tablets at onset of migraine and one tablet every 2 hours as needed, not more than 5 tablets in 24 hours 16 Tablet 10 09/09/2022 Suspended Additional Information Aspirin 81 MG Oral Tablet Chewable Take 1 Tablet by mouth in the morning. Do not start before October 07, 2022. 34 Tablet 11 10/07/2022 Suspended Additional Information valACYclovir HCl 1 GM Oral Tablet (Valtrex) Take 1 Tablet by mouth in the morning and 1 Tablet at noon and 1 Tablet before bedtime. 21 Tablet 0 12/14/2022 Suspended Additional Information Clopidogrel Bisulfate 75 MG Oral Tablet (pLAVix) Take 1 Tablet by mouth in the morning. 100 Tablet 1 12/14/2022 Suspended Additional Information Pregabalin 150 MG Oral Capsule (Lyrica)Indications :Spinal stenosis of lumbar region without neurogenic claudication Take 1 Capsule by mouth in the morning and 1 Capsule before bedtime. 60 Capsule 11 01/03/2023 Suspended Additional Information Lisinopril 10 MG Oral Tablet (Prinivil) TAKE 1 TABLET BY MOUTH EVERY DAY 90 Tablet 3 01/27/2023 Suspended Additional Information Patient taking differently: 10 mg Oral HS, Informant: Patient, Reported on 04/03/2023 Atorvastatin Calcium 80 MG Oral Tablet (Lipitor) TAKE 1 TABLET BY MOUTH EVERY DAY IN THE MORNING 90 Tablet 0 01/29/2023 Suspended Additional Information Patient taking differently: 80 mg Oral HS, Informant: Patient, Reported on 04/03/2023 Metoprolol Succinate ER 50 MG Oral Tablet Extended Release 24 Hour (toPROL XL)Indications:Esse ntial hypertension with goal blood pressure less than 140/90 TAKE 1/2 TABLET EVERY MORNING AND EVENING 90 Tablet 3 01/30/2023 Suspended Additional Information Tacrolimus 0.1 % External Ointment Apply thin film to affected areas at face twice daily as needed. 60 g 2 01/30/2023 Suspended Additional Information Dupixent 300 MG/2ML Subcutaneous Solution Pen-injector (Dupilumab) Inject one pen under the skin every 2 weeks. 4 mL 4 01/31/2023 Suspended Additional Information Acitretin 10 MG Oral Capsule Take 1 capsule daily with breakfast. 90 Capsule 1 02/15/2023 Suspended Additional Information cycloSPORINE 0.05 % Ophthalmic Emulsion (Restasis) Instill 1 drop in each eye every 12 hours. 5.5 mL 5 02/15/2023 Suspended Additional Information oxyCODONE-Acetamino phen 5-325 MG Oral Tablet (Percocet) Take 1 Tablet by mouth every 4 hours as needed for Pain, Moderate. 20 Tablet 0 03/31/2023 Suspended Additional Information Doxepin HCl 25 MG Oral Capsule (SINEquan) Take 1 Capsule by mouth at bedtime. 0 03/29/2023 Suspended documented as of this encounter (statuses as of 04/03/2023) Active Problems Problem Noted Date Diagnosed Date Renal stone 03/21/2023 Food insecurity 01/02/2023 Overview: Per [facility] Protocol Presence of Watchman left atrial appendage closu re device 12/19/2022 PAF (paroxysmal atrial fibrillation) 08/17/2022 Overview: Added automatically from request for surgery [id number] Nasal septal perforation 06/13/2022 Overview: Per ENT [...] as of this encounter (statuses as of 04/03/2023) Resolved Problems Problem Noted Date Diagnosed Date [...] 140/90 12/12/201111/09 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 07/30/2018 Overview: [place] palsy Tinea 06/27/2011 07/30/2018 Mixed urge and stress incontinence 12/15/2008 10/08/2019 ADVANCE DIRECTIVE INFORMATION 06/17/2004 10/08/2019 documented as of this encounter (statuses as of 04/03/2023) Immunizations Name Administration Dates Next Due COVID-19 [...] have money to get more. Patient refused 10/ Sex and Gender Information Value Date [...] encounter Miscellaneous Notes * Telephone Encounter - Edmund Elizabeth RPh - 04/03/2023 2:34 PM EST Refused Prescriptions: Disp Refills Pregabalin 150 MG Oral Capsule (Lyrica) 60 Cap*11 Sig: Take 1 Capsule by mouth in the morning and 1 Capsule before bedtime.Refused By: EDMUND ELIZABETHfor Refusal: Too soonReason for Refusal Comment: 6 month supply sent 01/03/23 documented in this encounter Plan of Treatment Upcoming Encounters Date Type Department Care Team (Late st Contact Info) Description 04/13/2023 2:00 PM EST Office Visit Pharmacy, [address] [address] 04/20/2023 1:00 PM EST Appointment Radiology, [place] [address] [place] [phone] 04/20/2023 1:45 PM EST Procedure Only Urology, [place] [address] [place] [address] Luis Manuel Sandy MD [address] [place] [address] 05/16/2023 1:30 PM EDT Cardiac Studies Cardiac Studies, [address] [address] 05/19/2023 1:30 PM EDT Office Visit Cardiology, [address] [address] Lila Burger CRNP [address] [place] [phone] 05/24/2023 2:00 PM EDT Office Visit Podiatry [address] [address] Eveline Layne, [facility] [address] [place] [address] 06/07/2023 2:30 PM EDT Office Visit Dermatology [facility] [address] [place] [address] Cyril Borges MD 16 [place] [address] 06/14/2023 1:00 PM EDT Office Visit Cosmetic Surgery & Aesthetics [facility] [address] [place] [address] Conor Venegas PA-C [address] [place] [address] 06/19/2023 1:30 PM EDT Nurse Only Rheumatology [address] [place] [address] Pf, Nurse Rheum [address] [place] [address] [place] [address] 06/27/2023 1:20 PM EDT Office Visit Family Practice [facility] 132 [place] [address] Nikunj [facility] [address] 07/03/2023 2:00 PM EDT Office Visit Nephrology, [facility] 200 [facility] [place] [address] Geovanni Linder MD 200 [facility] [place] [address] 07/05/2023 1:00 PM EDT Appointment Radiology, [place] [address] [place] [address] 07/05/2023 2:15 PM EDT Office Visit Urology, [place] [address] [place] [address] Luis Manuel Sandy MD [address] [place] [address] 12/20/2023 2:30 PM EDT Imaging Radiology, [address] [place] [address] 12/20/2023 3:20 PM EDT Office Visit Rheumatology [address] [place] [address] John Yoder MD [address] [place] [address] [place] [address] Scheduled Procedures Name Priority Associated Diagnoses Date/Ti me CYSTOURETHROSCOPY URETEROSCOPY WITH LITHOTRIPSY AND STENT INSERTION Renal calculi 04/03/2023 2:33 PM EST ROBOTIC ARTHROPLASTY KNEE TOTAL Knee [...] ONCE IN A LIFETIME-USE SMARTSET# [id number] Completed 06/10/2022, 05/28/2021, 06/20/2020, Additional history exists [...] this encounter Medical Devices Implanted Type Area Boiler Tester Device Identifier Shelf Expiration Date Model / Serial / Lot Kyphon Hv-R Bone Cement Implanted:Qty: 1 on 08/17/2016 by Michael Smith [place] [facility] [place]: Spine Thoracic 03/19/2019 C01A / C01A / [id number] Persona The Personalized Knee System Vivacit-E Highly Crosslinked Polyethylene Articular Surface Medial Congruent Implanted:Qty: 1 on 06/04/2018 by Duc Kimble MD at OR [facility] Right: Knee [employer] 11/19/2022 42-5221-0 - [id number] Device Watchman Flx 27mm - [id number] Implanted:Qty: 1 on 10/06/2022 by Austin Penaloza MD at [facility] [employer] : INTRV CARD [id number] 08/07/2025 [id number] / / [id number] documented as of this encounter Visit Diagnoses Diagnosis Spinal stenosis of lumbar region without neurogenic claudication Spinal stenosis, lumbar region, without neurogenic claudication documented in this encounter Advance Directives Latest Code Status on File Code Status Date Activated Date Inactivated Comments Full Code 04/03/2023 12:57 PM Question Answer Comments Discussion of Advance [...] the patient have Health Care Power of Photographic Plate Maker? No Care Teams Cooler Worker Relationship Specialty Start Date End Date Nikunj Plascencia MD [address] [place] [address] PCP - General Family Medicine 10/31/19 documented as of this encounter
--- OUTSIDE RECORDS SUMMARY | 2023-07-29 04:12 | External Medical Summary | Summary of Care ---
Author Name Unknown Organization [facility] Address [address] [place] [address] Phone [phone] Care Team Providers Care Line Haul Owner Operator Name Role Phone Nikunj Plascencia MD Primary Care Provider [phone] Reason for Visit * Reason Comments Outpatient Testing Encounter Details Date Type Department Care Team (Late st Contact Info) Description 03/31/2023 9:30 AM EST Laboratory Laboratory, [facility] [address] [place] [phone] [facility] [address] [place] [address] [employer] Other*[id number] Allergies Active Allergy Reactions Criticality Noted Date Comments Egg Shells 06/16/2018 Other reaction(s): GI SYMPTOMS Egg Yolk High 11/29/2019 Other reaction(s): GI upset Ibuprofen Other (Please comment) 07/30/2010 Stomach upset Morphine 08/28/2021 Other reaction(s): LEGS SWELL documented as of this encounter (statuses as of 03/31/2023) Medications Medication Sig Dispensed Refills Start Date [...] Particles (Cymbalta) 0 06/20/2022 Active Saline Nasal [place] 0.65 % Nasal Solution ([place]) Q6H 0 06/06/2022 Active Clobetasol Propionate 0.05 [...] as of this encounter (statuses as of 03/31/2023) Active Problems Problem Noted Date Diagnosed Date Renal stone 03/21/2023 Food insecurity 01/02/2023 Overview: Per [facility] Protocol Presence of Watchman left atrial appendage closu re device 12/19/2022 PAF (paroxysmal atrial fibrillation) 08/17/2022 Overview: Added automatically from request for surgery [id number] Nasal septal perforation 06/13/2022 Overview: Per ENT [...] as of this encounter (statuses as of 03/31/2023) Resolved Problems Problem Noted Date Diagnosed Date [...] 140/90 12/12/201111/09 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 07/30/2018 Overview: [place] palsy Tinea 06/27/2011 07/30/2018 Mixed urge and stress incontinence 12/15/2008 10/08/2019 ADVANCE DIRECTIVE INFORMATION 06/17/2004 10/08/2019 documented as of this encounter (statuses as of 03/31/2023) Immunizations Name Administration Dates Next Due COVID-19 mRNA, LNP-s, No Pre serve, 2-Dose Series (Ondeego) 10/05/2020,09/14/2020 Covid-19, Mrna, Lnp-s, Pf, B ivalent, 30 Mcg, IM, 12 yrs and above ([place]) 05/26/2022 Pneumococcal Conjugate Vacc, 13 Valent (Prevnar) [...] 04/03/2023 2:12 PM EST Hospital Encounter [facility] [address] [place] [address] Luis Manuel Sandy MD [address] [place] [address] 04/03/2023 2:12 PM EST - 04/03/2023 3:52 PM EST Surgery [facility] [address] [place] [address] Luis Manuel Sandy MD [address] [place] [address] CYSTOURETHROSCOPY URETEROSCOPY WITH LITHOTRIPSY AND STENT INSERTION 04/13/2023 2:00 PM EST Office Visit Pharmacy, [facility] 132 [facility] [place] [address] [facility] 132 [facility] [place] [address] 04/20/2023 1:00 PM EST Appointment Radiology, [place] [address] [place] [phone] 04/20/2023 1:45 PM EST Procedure Only Urology, [place] [address] [place] [address] Luis Manuel Sandy MD [address] [place] [address] 05/16/2023 1:30 PM EDT Cardiac Studies Cardiac Studies, [facility] [address] [place] [address] 05/19/2023 1:30 PM EDT Office Visit Cardiology, [facility] [address] [place] [address] Lila Burger CRNP [address] [place] [phone] 05/24/2023 2:00 PM EDT Office Visit Podiatry [address] [address] Eveline Layne DPM [address] [place], [place] [phone] 06/07/2023 2:30 PM EDT Office Visit Dermatology [facility] [address] [place] [address] Cyril Borges MD [address] [place] [address] 06/14/2023 1:00 PM EDT Office Visit Cosmetic Surgery & Aesthetics [facility] [address] [place] [address] Conor Venegas PA-C [address] [place] [address] 06/19/2023 1:30 PM EDT Nurse Only Rheumatology [place] [address] [place] [address] Pf, Nurse Rheum [facility] [place] [address] 06/27/2023 1:20 PM EDT Office Visit Family Practice [facility] [address] [facility] [place] [address] Nikunj Plascencia MD [address] [place] [address] 07/03/2023 2:00 PM EDT [facility] 200 [facility] [place] [address] Geovanni Linder MD 200 [facility] [place] [address] 07/05/2023 1:00 PM EDT Appointment Radiology, [address] [address] 07/05/2023 2:15 PM EDT Office Visit Urology, [address] [address] Luis Manuel Sandy MD [address] [place] [address] 12/20/2023 2:30 PM EDT Imaging Radiology, [address] [place] [address] 12/20/2023 3:20 PM EDT Office Visit Rheumatology [address] [place] [address] John Yoder MD [address] [place] [address] [place] [address] Pending Results Name Type Priority Associated Diagnoses Date /Time MYCODE INITIAL ADULT Lab Routine MyCode Research Other*[id number] 03/31/2023 9:17 AM EST MYCODE INITIAL ADULT-PINK Lab Routine [employer] Other*[id number] 03/31/2023 9:17 AM EST MYCODE SST1 Lab Routine [employer] Other*[id number] 03/31/2023 9:17 AM EST MYCODE SST2 Lab Routine [employer] Other*[id number] 03/31/2023 9:17 AM EST Scheduled Procedures Name Priority Associated [...] D LEVEL ONCE IN A LIFETIME-USE SMARTSET# [id number] Completed 06/10/2022, 05/28/2021, 06/20/2020, Additional history exists [...] this encounter Medical Devices Implanted Type Area Family Caseworker Device Identifier Shelf Expiration Date Model / Serial / Lot Kyphon Hv-R Bone Cement Implanted:Qty: 1 on 08/17/2016 by Michael Smith MD at [place] [facility] N/A: Spine Thoracic 03/19/2019 C01A / C01A / [id number] Persona The Personalized Knee System Vivacit-E Highly Crosslinked Polyethylene Articular Surface Medial Congruent Implanted:Qty: 1 on 06/04/2018 by Duc Kimble MD at OR [facility] Right: Knee [employer] 11/19/2022 [id number] / / [id number] Device Watchman Flx 27mm - [id number] Implanted:Qty: 1 on 10/06/2022 by Austin Penaloza MD at [facility] [employer] : INTRV CARD [id number] 08/07/2025 [id number] / / [id number] documented as of this encounter Visit Diagnoses Diagnosis Renal stone Calculus of kidney [employer] Other*[id number] Renal calculi Calculus of kidney documented in [...] the patient have Health Care Power of Physics Instructor? No Care Teams Line Haul Owner Operator Relationship Specialty Start Date End Date Nikunj Plascencia MD [address] [place] [address] PCP - General Family Medicine 10/31/19 documented as of this encounter
--- OUTSIDE RECORDS SUMMARY | 2023-07-29 04:12 | External Medical Summary ---
Author Name Unknown Address Unknown Organization K01:[facility] [facility] [place] [address] Laboratory Report Ordering Provider Test Date Status CHERRY GIVENS 03/31/2023 09:17:55 Final Observation Date Value Abnormality Reference (Units ) Status Triglyceride 03/31/2023 09:17:55 64 <=174 ( mg/dL) Final Triglyceride Reference Range s (mg/dL):
<150 Acceptable
150-174 Borderline high
175-499 High
>=500 Very high Cholesterol 03/31/2023 09:17:55 101 <200 (mg /dL) Final Total Cholesterol Reference Ranges (mg/dL):
<200 Desirable
200-239 Borderline high
>=240 High HDL 03/31/2023 09:17:55 54 >49 (mg/dL ) Final HDL Cholesterol Reference Ra nges (mg/dL):
>=60 High (Desirable)
<50 Low (Undesirable) For Females
<40 Low (Undesirable) For Males NON-HDL CHOLESTEROL 03/31/2023 09:17:55 47 <=159 (mg/dL) Final Non-HDL Cholesterol Referenc e Range (mg/dL):
<100 Target level for high risk ASCVD patient
<130 Optimal for general population
130-159 Near optimal for general population
160-189 Borderline High
190-219 High
>=220 Very High LDL, (calculated) 03/31/2023 09:17:55 34 <= 129 (mg/dL) Final LDL Cholesterol Reference Ra nges (mg/dL):
<70 Target level for high risk ASCVD patient
<100 Optimal for general population
100-129 Near optimal for general population
130-159 Borderline high
160-189 High
>=190 Very high Performing Location [facility] [place] [address] [facility] [address]
--- OUTSIDE RECORDS SUMMARY | 2023-07-29 04:12 | External Medical Summary | Summary of Care ---
Author Name Unknown Organization [facility] Address [address] [place] [address] Phone [phone] Care Team Providers Care Mechanical Manufacturing Technician Name Role Phone Nikunj Plascencia MD Primary Care Provider [phone] Reason for Visit * Reason Onset Date Comments Medication Refill 03/31/2023 Encounter Details Date Type Department Care Team (Late st Contact Info) Description 03/31/2023 Refill Urology, [place] [address] [place], [place] [id number] Keren Das PA-C [address] [place] [address] Allergies Active Allergy Reactions Criticality [...] (Dovonex) Apply 2x daily to rash on face/trunk/arm s until resolved, then when flaring 100 g 2 09/27/2021 Active Betamethasone Dipropionate 0.05 % External OintmentIndications: Rash and nonspecific skin eruption Apply 2x daily to blisters and rash on face/trunk (back)/arms/le gs until resolved, then when flaring 100 g [...] Particles (Cymbalta) 0 06/20/2022 Active Saline Nasal [place] 0.65 % Nasal Solution ([place]) Q6H 0 06/06/2022 Active Clobetasol Propionate 0.05 [...] Pain, Moderate. 20 Tablet 0 03/31/2023 Active oxyCODONE-Acetaminop hen 5-325 MG Oral Tablet (Percocet) Take 1 Tablet by mouth every 4 hours as needed for Pain, Moderate. 20 Tablet 0 03/22/2023 Discontinue d(Refill) Hospital, Clinic, or Other Facility Administered Medication [...] Overview: Added automatically from request for surgery [id number] Nasal septal perforation 06/13/2022 Overview: Per ENT [...] 140/90 12/12/201111/09 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 07/30/2018 Overview: [place] palsy Tinea 06/27/2011 07/30/2018 Mixed urge and stress incontinence 12/15/2008 10/08/2019 ADVANCE DIRECTIVE INFORMATION 06/17/2004 10/08/2019 documented as of this encounter (statuses as of 03/31/2023) Immunizations Name Administration Dates Next Due COVID-19 mRNA, LNP-s, No Pre serve, 2-Dose Series ([employer]) 10/05/2020,09/14/2020 Covid-19, Mrna, Lnp-s, Pf, B ivalent, 30 Mcg, IM, 12 yrs and above ([employer]) 05/26/2022 Pneumococcal Conjugate Vacc, 13 Valent (Prevnar) [...] Telephone Encounter - Keren Das PA-C - 03/31/2023 10:23 PM ESTSigned Prescriptions: Disp Refills oxyCODONE-Acetaminophen 5-325 MG Oral Tabl*20 Tab*0 Sig: Take 1 Tablet by mouth every 4 hours as needed for Pain, Moderate. Authorizing Provider: KEREN DAS * Telephone Encounter - Dhara Hairston OSA - 03/31/2023 1:18 PM ESTPending Prescriptions: Disp Refills oxyCODONE-Acetaminophen 5-325 MG Oral Tabl*20 Tab*0 Sig: Take 1 Tablet by mouth every 4 hours as needed for Pain, Moderate. * Telephone Encounter - Dhara Hairston OSA - 03/31/2023 1:18 PM EST Please review pt RX refill review in RE:Refills have been requested for the following medications: oxyCODONE-Acetaminophen 5-325 MG Oral Tablet (Percocet) [Keren Das] Preferred pharmacy: [id number] [address] [facility] Delivery method: Pickup documented in this encounter Plan of Treatment Upcoming Encounters Date Type Department Care Team (Latest Contact Info) Description 04/03/2023 2:12 PM EST Hospital Encounter [facility] [address] [place] [address] Luis Manuel Sandy MD [address] [place], [place] [phone] 04/03/2023 2:12 PM EST - 04/03/2023 3:52 PM EST Surgery OR [facility] [address] [place], [place] [phone] Luis Manuel Sandy MD [facility] [place] [address] CYSTOURETHROSCOPY URETEROSCOPY WITH LITHOTRIPSY AND STENT INSERTION 04/13/2023 2:00 PM EST Office Visit Pharmacy, [facility] 132 [facility] [place] [address] [facility] 132 [place] [address] 04/20/2023 1:00 PM EST Appointment Radiology, [address] [phone] 04/20/2023 1:45 PM EST Procedure Only Urology, [place] [address] [place], [place] [phone] Luis Manuel Sandy MD [address] [place] [address] 05/16/2023 1:30 PM EDT Cardiac Studies Cardiac Studies, [address] [address] 05/19/2023 1:30 PM EDT Office Visit Cardiology, [address] [address] Lila Burger CRNP [address] [place] [phone] 05/24/2023 2:00 PM EDT Office Visit Podiatry [address] [address] Eveline Layne DPM 400 [place], [place] [address] 06/07/2023 2:30 PM EDT Office Visit Dermatology [facility] [address] [place] [address] Cyril Borges MD 16 [place] [address] 06/14/2023 1:00 PM EDT Office Visit Cosmetic Surgery & Aesthetics [facility] 16 [place] [address] Conor Venegas PA-C [address] [place] [address] 06/19/2023 1:30 PM EDT Nurse Only Rheumatology [place] 307970 [facility] [place], [place] [address] Pf, Nurse Rheum [address] [facility] [place], [place] [address] 06/27/2023 1:20 PM EDT Office Visit Family Practice [facility] [address] [place] [address] Nikunj Plascencia MD [address] [place] [address] 07/03/2023 2:00 PM EDT Office Visit Nephrology, [facility] [address] [facility] [place] [address] Geovanni Linder MD [address] [facility] [place] [address] 07/05/2023 1:00 PM EDT Appointment Radiology, [address] [address] 07/05/2023 2:15 PM EDT Office Visit Urology, [address] [address] Luis Manuel Sandy MD [facility] [place] [address] 12/20/2023 2:30 PM EDT Imaging Radiology, [address] [place] [address] 12/20/2023 3:20 PM EDT Office Visit Rheumatology [address] [place] [address] John Yoder MD [address] [place] [address] [place] [address] Scheduled Procedures Name Priority Associated Diagnoses Date/Ti [...] 12/01/2023 11/30/2021, 08/21, 08/29/2017, Additional history exists Lipid Panel 01/11/2026 03/31/2023, 12/22, 12/06/2019, Additional history exists COLONOSCOPY-EVERY 5 YRS AGES 18-100 03/24/2026 03/24/2021, 09/19/2018, 09/19/2018, Additional history exists Diabetes Screening 03/31/2026 03/31/2023, 1 , 10/06/2022, Additional history exists DTaP,Tdap,and Td Vaccines (3 - Td or Tdap) 01/06/2032 01/05/2022, 11/18/2011 Pap Smear Discontinued 08/05/2019, 07/21, 03/01/2010 Fecal Occult Blood Test Discontinued 03/10/19, 03/10/2021, 03/10/2021, Additional history exists Colonoscopy Discontinued 03/24/2021, 08/22, 09/19/2018, Additional history exists Colorectal Cancer Screening Discontinued VITAMIN D LEVEL ONCE IN A LIFETIME-USE SMARTSET# [id number] Completed 06/10/2022, 05/28/2021, 06/20/2020, Additional history exists [...] this encounter Medical Devices Implanted Type Area Form Drafter Device Identifier Shelf Expiration Date Model / Serial / Lot Kyphon Hv-R Bone Cement Implanted:Qty: 1 on 08/17/2016 by Michael Smith MD at OR [facility] N/A: Spine Thoracic 03/19/2019 C01A / C01A / [id number] Persona The Personalized Knee System Vivacit-E Highly Crosslinked Polyethylene Articular Surface Medial Congruent Implanted:Qty: 1 on 06/04/2018 by Duc Kimble MD at OR [facility] Right: Knee [employer] 11/19/2022 [id number]- / [id number] Device Watchman Flx 27mm - [id number] Implanted:Qty: 1 on 10/06/2022 by Austin Penaloza MD at CARDIAC LABS [facility] [employer] [place] : INTRV CARD [id number] 08/07/2025 [id number] / / [id number] documented as of this encounter Advance Directives [...] the patient have Health Care Power of Stencil Maker? No Care Teams Mechanical Manufacturing Technician Relationship Specialty Start Date End Date Nikunj Plascencia MD [address] [place] [address] PCP - General Family Medicine 10/31/19 documented as of this encounter
--- OUTSIDE RECORDS SUMMARY | 2023-07-29 04:12 | External Medical Summary ---
Author Name Unknown Address Unknown Organization K0G:[facility] [address] [place] [address] Laboratory Report Ordering Provider Test Date Status XIOMY VELIZ 03/31/2023 09:17:55 Final Observation Date Value Abnormality Reference (Units ) Status WBC, Total 03/31/2023 09:17:55 5.40 4.00-10.8 0 (K/uL) Final RBC 03/31/2023 09:17:55 3.26 3.85-5.15 (M/uL) Final Hemoglobin 03/31/2023 09:17:55 8.9 Below low normal 12 .0-15.3 (g/dL) Final HCT 03/31/2023 09:17:55 30.1 Below low normal 36. 0-45.2 (%) Final MCV 03/31/2023 09:17:55 92.3 81.5-97.5 (fL) Final MCH 03/31/2023 09:17:55 27.3 27.0-34.0 (pg) Final MCHC 03/31/2023 09:17:55 29.6 32.0-36.0 (g/dL) Final RDW 03/31/2023 09:17:55 15.4 11.5-15.5 (%) Final Platelets 03/31/2023 09:17:55 120 Below low normal 140 -400 (K/uL) Final MPV 03/31/2023 09:17:55 11.6 6.6-11.1 ( fL) Final Performing Location [facility] [address] [place] [address]
--- OUTSIDE RECORDS SUMMARY | 2023-07-29 04:13 | External Medical Summary | Summary of Care ---
Author Name Unknown Organization [facility] Address [address] [place] [address] Phone [phone] Care Team Providers Care Glazier Supervisor Name Role Phone Nikunj Plascencia MD Primary Care Provider [phone] Reason for Visit * Reason Comments HISTORY and PHYSICAL Encounter Details Date Type Department Care Team (Late st Contact Info) Description 03/21/2023 11:00 AM EST Office Visit Urology, [place] [address] [place], [place] [phone] Maria Elena Das PA-C [address] [place], [place] [phone] Calculus of kidney* Allergies Active Allergy Reactions Criticality Noted Date Comments Egg Shells 06/16/2018 Other reaction(s): GI SYMPTOMS Egg Yolk High 11/29/2019 Other reaction(s): GI upset Ibuprofen Other (Please comment) 07/30/2010 Stomach upset Morphine 08/28/2021 Other reaction(s): LEGS SWELL documented as of this encounter (statuses as of 03/21/2023) Medications Medication Sig Dispensed Refills Start Date [...] Particles (Cymbalta) 0 06/20/2022 Active Saline Nasal [place] 0.65 % Nasal Solution ([place]) Q6H 0 06/06/2022 Active Clobetasol Propionate 0.05 [...] as of this encounter (statuses as of 03/21/2023) Active Problems Problem Noted Date Diagnosed Date Food insecurity 01/02/2023 Overview: Per [facility] Protocol Presence of Watchman left atrial appendage closu re device 12/19/2022 PAF (paroxysmal atrial fibrillation) 08/17/2022 Overview: Added automatically from request for surgery [id number] Nasal septal perforation 06/13/2022 Overview: Per ENT [...] as of this encounter (statuses as of 03/21/2023) Resolved Problems Problem Noted Date Diagnosed Date [...] 140/90 12/12/201111/09 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 07/30/2018 Overview: [place] palsy Tinea 06/27/2011 07/30/2018 Mixed urge and stress incontinence 12/15/2008 10/08/2019 ADVANCE DIRECTIVE INFORMATION 06/17/2004 10/08/2019 documented as of this encounter (statuses as of 03/21/2023) Immunizations Name Administration Dates Next Due COVID-19 mRNA, LNP-s, No Pre serve, 2-Dose Series ([employer]) 10/05/2020,09/14/2020 Covid-19, Mrna, Lnp-s, Pf, B ivalent, [...] Sign Reading Time Taken Comments Blood Pressure 154/78 03/21/2023 10:55 AM EST Pulse - - Temperature 36.2 C (97.2 F) 03/21/2023 1 0:55 AM EST Respiratory Rate - - Oxygen Saturation - - Inhaled Oxygen Concentration - - Weight 126.7 kg (279 lb 4.8 oz) 024 10:55 AM EST Height 162.6 cm (5' 4") 03/21/2023 10:5 5 AM EST Body Mass Index 47.94 03/21/2023 10:55 AM EST documented in this encounter Functional [...] this encounter Patient Instructions * Patient Instructions* Maria Elena Das PA-C - 03/21/2023 11:04 AM EST [facility] Department of Urology [address] [facility] [place] [address] [phone] Patient Education 1. As a requirement for surgery with this department we require you to be evaluated by Pre-Admission Testing (PAT). This is to discuss additional information regarding surgery and to meet with someone from Anesthesia. 2. Please remember not to eat or drink anything after midnight the night before your surgery. You may take any necessary medications with sips of water only. 3. Please bring any diagnostic studies performed at outside facilities (Xray, CT Scans, MRI, etc) with you on the day of your surgery. This is very important 4. To help prevent infection, please wash with anti-bacterial soap the night before your surgery and the morning of your surgery. (Dial or generic dial is recommended) 5. After your surgery, please allow your body time to heal. Do not do any strenuous activities or heavy lifting. It is very important to go for short walks at least three times daily during your post-operative recovery period. This helps to decrease the risk of DVT (Deep Vein Thrombosis), or blood clots in the legs. Do not drive or operate heavy machinery for at least 24 hours after receiving anesthesia. 6. Please also drink plenty of fluids to promote healthy kidney function. Water is best. 7. Patient compliance is very important. Your surgery could be cancelled if this pre-operative preparation is not followed. Please help us by following this prep so that we can help to minimize post-operative complications. 8. Please feel free to sign up for a Ingeny account at [email or web address]. Using Denty's you can message [facility] providers, follow your laboratory studies as well as track your overall care. Thank you for your cooperation Maria Elena Das PA-C Department of Urology Some items above may not apply to every patient documented in this encounter Progress Notes * Maria Elena Das PA-C - 03/21/2023 11:31 AM EST See H&P documented in this encounter Plan of Treatment Upcoming Encounters Date Type Department Care Team (Latest Contact Info) Description 03/30/2023 3:15 PM EST Office Visit Orthopaedics [facility] [address] [place] [address] Alpesh De León DO [address] [place] [address] 04/03/2023 12:37 PM EST Hospital Encounter OR [facility], OPERATING ROOM [facility] [address] [place] [address] Luis Manuel Sandy MD [address] [place], [place] [phone] 04/03/2023 12:37 PM EST - 04/03/2023 2:27 PM EST Surgery OR [facility], OPERATING ROOM [facility] [address] [place] [address] Luis Manuel Sandy MD [address] [place] [address] CYSTOURETHROSCOPY URETEROSCOPY WITH LITHOTRIPSY AND STENT INSERTION 04/13/2023 2:00 PM EST Office Visit Pharmacy, [facility] 132 [facility] [place] [address] [facility] 132 [place] [address] 04/20/2023 1:00 PM EST Appointment Radiology, [place] [address] [place] [phone] 04/20/2023 1:45 PM EST Procedure Only Urology, [place] [address] [place] [address] Luis Manuel Sandy MD [address] [place] [address] 05/16/2023 1:30 PM EDT Cardiac Studies Cardiac Studies, [facility] [address] [place] [address] 05/19/2023 1:30 PM EDT Office Visit Cardiology, [address] [address] Lila Burger CRNP 400 [place] [phone] 05/24/2023 2:00 PM EDT Office Visit Podiatry [facility] [address] [place] [address] Eveline Layne DPM 400 [place] [address] 06/07/2023 2:30 PM EDT Office Visit Dermatology [facility] 16 [place] [address] Cyril Borges MD 16 [place] [address] 06/14/2023 1:00 PM EDT Office Visit Cosmetic Surgery & Aesthetics [facility] 16 [place] [address] Conor Venegas PA-C [address] [place] [address] 06/19/2023 1:30 PM EDT Nurse Only Rheumatology [address] [place] [address] Pf, Nurse Rheum [address] [place] [address] [place] [address] 06/27/2023 1:20 PM EDT Office Visit Family Practice [facility] [address] [place] [address] Nikunj Plascencia MD 132 [place] [address] 07/03/2023 2:00 PM EDT Office Visit Nephrology, [facility] 200 [place] [address] Geovanni Linder MD [address] [place] [address] 07/05/2023 1:00 PM EDT Appointment Radiology, [address] [address] 07/05/2023 2:15 PM EDT Office Visit Urology, [address] [phone] Luis Manuel Sandy MD [facility] [address] [place], [place] [address] 12/20/2023 2:30 PM EDT Imaging Radiology, [address] [place] [address] 12/20/2023 3:20 PM EDT Office Visit Rheumatology [facility] [address] [place] [address] John Yoder MD [address] [place] [address] Scheduled Orders Name Type Priority Associated Diagnoses Orde r Schedule CULTURE, URINE, QUANTITATIVE Lab Routine Calculus of kidney Ordered: 03/21/2023 CBC Lab Routine Calculus of kidney Ordered: 03/21/2023 COMPREHENSIVE METABOLIC PANEL Lab Routine Calculus of kidney Ordered: 03/21/2023 Scheduled Procedures Name Priority Associated Diagnoses Date/Ti me CYSTOURETHROSCOPY URETEROSCOPY WITH LITHOTRIPSY AND STENT INSERTION Renal calculi 04/03/2023 12:37 PM EST ROBOTIC ARTHROPLASTY KNEE TOTAL Knee [...] D LEVEL ONCE IN A LIFETIME-USE SMARTSET# [id number] Completed 06/10/2022, 05/28/2021, 06/20/2020, Additional history exists [...] this encounter Medical Devices Implanted Type Area High Court Justice Device Identifier Shelf Expiration Date Model / Serial / Lot Kyphon Hv-R Bone Cement Implanted:Qty: 1 on 08/17/2016 by Michael Smith MD at OR [facility] N/A: Spine Thoracic 03/19/2019 C01A / C01A / [id number] Persona The Personalized Knee System Vivacit-E Highly Crosslinked Polyethylene Articular Surface Medial Congruent Implanted:Qty: 1 on 06/04/2018 by Duc Kimble MD at OR [facility] Right: Knee [employer] 11/19/2022 42-5221-0 08-31 [id number] Device Watchman Flx 27mm - [id number] Implanted:Qty: 1 on 10/06/2022 by Austin Penaloza MD at CARDIAC LABS [facility] [employer] : INTRV CARD [id number] 08/07/2025 [id number] / / [id number] documented as of this encounter Visit Diagnoses Diagnosis Calculus of kidney- Primary Renal calculi Calculus of kidney documented in [...] the patient have Health Care Power of Electrical Logging Operator? No Care Teams Glazier Supervisor Relationship Specialty Start Date End Date Nikunj Plascencia MD [address] [place] [address] PCP - General Family Medicine 10/31/19 documented as of this encounter
--- OUTSIDE RECORDS SUMMARY | 2023-07-29 04:13 | External Medical Summary | Summary of Care ---
Author Name Unknown Organization [facility] Address [address] [place] [address] Phone [phone] Care Team Providers Care Muck Operator Name Role Phone Nikunj Plascencia MD Primary Care Provider [phone] Reason for Visit * Reason Comments HISTORY and PHYSICAL Encounter Details Date Type Department Care Team (Late st Contact Info) Description 03/21/2023 11:00 AM EST Office Visit Urology, [place] [address] [place], [place] [phone] Maria Elena Das PA-C [address] [place], [place] [phone] Calculus of kidney* Allergies Active Allergy Reactions [...] Particles (Cymbalta) 0 06/20/2022 Active [place] Nasal [place] 0.65 % Nasal Solution ([place]) Q6H 0 06/06/2022 Active Clobetasol Propionate 0.05 [...] Overview: Added automatically from request for surgery [id number] Nasal septal perforation 06/13/2022 Overview: Per ENT [...] 140/90 12/12/201111/09 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 07/30/2018 Overview: [place] palsy Tinea 06/27/2011 07/30/2018 Mixed urge and stress incontinence 12/15/2008 10/08/2019 ADVANCE DIRECTIVE INFORMATION 06/17/2004 10/08/2019 documented as of this encounter (statuses as of 03/21/2023) Immunizations Name Administration Dates Next Due COVID-19 mRNA, LNP-s, No Pre serve, 2-Dose Series ([facility]) 10/05/2020,09/14/2020 Covid-19, Mrna, Lnp-s, Pf, B ivalent, [...] Das PA-C - 03/21/2023 11:04 AM EST [facility] Department of Urology [address] [facility] [place] [address] [phone] Patient Education 1. As a requirement for [...] feel free to sign up for a Vigilix account at [email or web address]. Using Dasient you can message [facility] providers, follow your laboratory studies as well [...] 03/30/2023 3:15 PM EST Office Visit Orthopaedics [facility] [address] [place] [address] Alpesh De León DO [address] [place] [address] 04/03/2023 12:37 PM EST Hospital Encounter OR [facility], OPERATING ROOM [facility] [address] [place] [address] Luis Manuel Sandy MD [address] [place], [place] [address] 04/03/2023 12:37 PM EST - 04/03/2023 2:27 PM EST Surgery OR [facility], OPERATING ROOM [facility] [address] [place] [address] Luis Manuel Sandy MD [address] [place] [address] CYSTOURETHROSCOPY URETEROSCOPY WITH LITHOTRIPSY AND STENT INSERTION 04/13/2023 2:00 PM EST Office Visit Pharmacy, [facility] 132 [place] [address] [facility] 132 [place] [address] 04/20/2023 1:00 PM EST Appointment Radiology, [place] [address] [place] [phone] 04/20/2023 1:45 PM EST Procedure Only Urology, [place] [address] [place] [address] Luis Manuel Sandy MD [address] [place] [address] 05/16/2023 1:30 PM EDT Cardiac Studies Cardiac Studies, [facility] 132 [place] [address] 05/19/2023 1:30 PM EDT Office Visit Cardiology, [address] [address] Lila Burger CRNP 400 [place] [phone] 05/24/2023 2:00 PM EDT Office Visit Podiatry [facility] [address] [place] [address] Eveline Layne DPM 400 [place] [address] 06/07/2023 2:30 PM EDT Office Visit Dermatology [facility] 16 [place] [address] Cyril Borges MD 16 [place] [address] 06/14/2023 1:00 PM EDT Office Visit Cosmetic Surgery & Aesthetics [facility] [address] [place] [address] Conor Venegas PA-C [address] [place] [address] 06/19/2023 1:30 PM EDT Nurse Only Rheumatology [address] [place] [address] Pf, Nurse Rheum [address] [place] [address] [place] [address] 06/27/2023 1:20 PM EDT Office Visit Family Practice [facility] 132 [place] [address] Nikunj Plascencia MD 132 [place] [address] 07/03/2023 2:00 PM EDT Office Visit Nephrology, [facility] 200 [facility] [place] [address] Geovanni Linder MD 200 [facility] [place] [facility] [place] [address] 07/05/2023 1:00 PM EDT Appointment Radiology, [address] [address] 07/05/2023 2:15 PM EDT Office Visit Urology, [address] [phone] Luis Manuel Sandy MD [facility] [address] [place], [place] [address] 12/20/2023 2:30 PM EDT Imaging Radiology, [address] [place] [address] 12/20/2023 3:20 PM EDT Office Visit Rheumatology [facility] [address] [place] [address] John Yoder MD [address] [place] [address] Scheduled Orders Name Type Priority Associated Diagnoses [...] D LEVEL ONCE IN A LIFETIME-USE SMARTSET# [id number] Completed 06/10/2022, 05/28/2021, 06/20/2020, Additional history exists [...] encounter Medical Devices Implanted Type Area Manager [place] Device Identifier Shelf Expiration Date Model / Serial / Lot Kyphon Hv-R Bone Cement Implanted:Qty: 1 on 08/17/2016 by Michael Smith MD at OR [facility] N/A: Spine Thoracic 03/19/2019 C01A / C01A / [id number] Persona The Personalized Knee System Vivacit-E Highly Crosslinked Polyethylene Articular Surface Medial Congruent Implanted:Qty: 1 on 06/04/2018 by Duc Kimble MD at OR [facility] Right: Knee [employer] 11/19/2022 [id number] 08-31 [id number] Device Watchman Flx 27mm - [id number] Implanted:Qty: 1 on 10/06/2022 by Austin Penaloza MD at CARDIAC LABS [facility] [employer] : INTRV CARD [id number] 08/07/2025 [id number] / / [id number] documented as of this encounter Visit Diagnoses [...] the patient have Health Care Power of Design Teacher? No Care Teams Muck Operator Relationship Specialty Start Date End Date Nikunj Plascencia MD [address] [place] [address] PCP - General Family Medicine 10/31/19 documented as of this encounter
--- OUTSIDE RECORDS SUMMARY | 2023-07-29 04:13 | External Medical Summary | Summary of Care ---
Author Name Unknown Organization [facility] Address [address] [place] [address] Phone [phone] Care Team Providers Care Nailer Operator Name Role Phone Lambert Plascencia MD Primary Care Provider [phone] Reason for Visit * Reason Comments eRx-Medication Refill Encounter Details Date Type Department Care Team (Late st Contact Info) Description 01/28/2023 Refill Family Practice [facility] [address] [facility] [place] [address] Lambert Plascencia MD 132 [facility] [place] [address] Allergies Active Allergy Reactions Criticality Noted Date Comments Egg Shells 06/16/2018 Other reaction(s): GI SYMPTOMS Egg Yolk High 11/29/2019 Other reaction(s): GI upset Ibuprofen Other (Please comment) 07/30/2010 Stomach upset Morphine 08/28/2021 Other reaction(s): LEGS SWELL documented as of this encounter (statuses as of 03/23/2023) Medications Medication Sig Dispensed Refills Start Date [...] (Dovonex) Apply 2x daily to rash on face/trunk/ar ms until resolved, then when flaring 100 g 2 2 Active Betamethasone Dipropionate 0.05 % External OintmentIndication s:Rash and nonspecific skin eruption Apply 2x daily to blisters and rash on face/trunk (back)/arms/l egs until resolved, then when flaring 100 g 0 2 Active Memantine HCl 5 MG Oral Tablet (Namenda) Take 1 tablet daily for 1 week and then 1 tablet twice daily 180 Tablet 3 3 Active diphenhydrAMINE HCl 25 MG Oral Tablet Take 1 Tablet by mouth in the morning. 0 Active Clotrimazole 1 % External Cream (Lotrimin) Apply topically to affected area as needed for Itching. 30 g 5 3 Active Oxybutynin Chloride ER 5 MG Oral Tablet Extended Release 24 Hour (Ditropan XL) Take 1 Tablet by mouth in the morning. 90 Tablet 3 3 Active DULoxetine HCl 30 MG Oral Capsule Delayed Release Particles (Cymbalta) 0 3 Active Saline Nasal [place] 0.65 % Nasal Solution ([place]) Q6H 0 3 Active Clobetasol Propionate 0.05 [...] 3 Active Pregabalin 150 MG Oral Capsule (Lyrica)Indication s:Spinal stenosis of lumbar region without neurogenic claudication Take 1 Capsule by mouth in the morning and 1 Capsule before bedtime. 60 Capsule 11 3 Active Lisinopril 10 MG Oral Tablet (Prinivil) TAKE 1 TABLET BY MOUTH EVERY DAY 90 Tablet 3 3 Active Atorvastatin Calcium 80 MG Oral Tablet (Lipitor) TAKE 1 TABLET BY MOUTH EVERY DAY IN THE MORNING 90 Tablet 0 3 Active traZODone HCl 100 MG Oral Tablet (Desyrel) Take 2 Tablets by mouth at bedtime. 0 2 02/24/19 24 Discontinued(Med ication/Dose Changed) Tacrolimus 0.1 % External Ointment (Protopic) Apply thin film to affected areas at face twice daily as needed. 60 g 2 3 01/31/20 23 Discontinued(Ref ill) Dupixent 300 MG/2ML Subcutaneous Solution Pen-injector (Dupilumab) Inject one pen under the skin every 2 weeks. 4 mL 4 3 01/31/20 23 Discontinued(Ref ill) Metoprolol Succinate ER 50 MG Oral Tablet Extended Release 24 Hour (toPROL XL)Indications:Ess ential hypertension with goal blood pressure less than 140/90 TAKE 1/2 TABLET EVERY MORNING AND EVENING 90 Tablet 3 3 01/31/20 23 Discontinued Atorvastatin Calcium 80 MG Oral Tablet (Lipitor) TAKE 1 TABLET BY MOUTH EVERY DAY IN THE MORNING 90 Tablet 0 3 01/30/20 23 Discontinued Pregabalin 100 MG Oral Capsule (Lyrica) TAKE 1 CAPSULE BY MOUTH IN THE MORNING AND BEFORE BEDTIME 30 Capsule 3 3 02/18/20 23 Discontinued(Dis charged) Acitretin 10 MG Oral Capsule Take 1 capsule daily with breakfast. 90 Capsule 1 3 02/16/20 23 Discontinued(Ref ill) Calcipotriene 0.005 % External Cream (Calcitrene) Apply thin film to affected areas at face, chest, arms, ears, twice daily as needed. 120 g 3 3 02/18/20 23 Discontinued(Dis charged) Hospital, Clinic, or Other Facility Administered Medication Ordered Dose Route Frequency Start Date End Date Status atropine sulfate inj 0.4 mgIndications:Chest pain, unspecified type 0.4 mg IV PUSH PRN 01/29/2021 Active documented as of this encounter (statuses as of 03/23/2023) Active Problems Problem Noted Date Diagnosed Date Renal stone 03/21/2023 Food insecurity 01/02/2023 Overview: Per [facility] Protocol Presence of Watchman left atrial appendage closu re device 12/19/2022 PAF (paroxysmal atrial fibrillation) 08/17/2022 Overview: Added automatically from request for surgery [id number] Nasal septal perforation 06/13/2022 Overview: Per ENT [...] as of this encounter (statuses as of 03/23/2023) Resolved Problems Problem Noted Date Diagnosed Date [...] 140/90 12/12/201111/09 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 07/30/2018 Overview: [place] palsy Tinea 06/27/2011 07/30/2018 Mixed urge and stress incontinence 12/15/2008 10/08/2019 ADVANCE DIRECTIVE INFORMATION 06/17/2004 10/08/2019 documented as of this encounter (statuses as of 03/23/2023) Immunizations Name Administration Dates Next Due COVID-19 mRNA, LNP-s, No Pre serve, 2-Dose Series (Fluorofinder) 10/05/2020,09/14/2020 Covid-19, Mrna, Lnp-s, Pf, B ivalent, [...] encounter Miscellaneous Notes * Telephone Encounter - Tessy Manzanares web content director - 03/23/2023 4:32 PM EST Received message from [facility] regarding patient needing labs. Placed call to patient to advise. Left message on voicemail advising of required labs Thank you, Tessy Manzanares Property Adjuster [facility] 03/23/2023,4:32 PM * Telephone Encounter - Jany Turk [facility] - 01/29/2023 11:49 AM ESTSigned Prescriptions: Disp Refills Atorvastatin Calcium 80 MG Oral Tablet (Li*90 Tab*0 Sig: TAKE 1 TABLET BY MOUTH EVERY DAY IN THE MORNING Authorizing Provider: LAMBERT PLASCENCIA Ordering User: JANY TURK * Telephone Encounter - Jany Turk RPh - 01/29/2023 11:48 AM EST Provided 90 days supply with 0 refill(s). Per refill protocol patient should have lipid panel on file within past year. Reviewed AMP report, Care Gaps/Health Maintenance, medications list, and for any routine labs typically ordered for this patient. Lab orders placed. Please contact patient to advise of labs ordered for blood draw. Recommend patient to fast if able for labs. Patient may still have water and regular medications. Advise to obtain labs before requesting the next refill. Thanks, Jany Turk, PharmD Clinical Pharmacist [facility] ([facility]) [phone] 01/29/2023 11:49 AM documented in this encounter Plan of Treatment Upcoming Encounters Date Type Department Care Team (Latest Contact Info) Description 03/30/2023 3:15 PM EST Office Visit Orthopaedics [facility] [address] [place] [address] Alpesh De León DO [address] [place] [address] 04/03/2023 12:37 PM EST Hospital Encounter [facility]ATING ROOM [facility] [address] [place] [address] Luis Manuel Sandy MD [address] [place] [address] 04/03/2023 12:37 PM EST - 04/03/2023 2:27 PM EST Surgery [facility] ROOM [facility] [address] [place] [address] Luis Manuel Sandy MD [address] [place] [address] CYSTOURETHROSCOPY URETEROSCOPY WITH LITHOTRIPSY AND STENT INSERTION 04/13/2023 2:00 PM EST Office Visit Pharmacy, [facility] [address] [place] [address] [facility] [address] [place] [address] 04/20/2023 1:00 PM EST Appointment Radiology, [place] [address] [place] [phone] 04/20/2023 1:45 PM EST Procedure Only Urology, [place] [address] [place] [address] Luis Manuel Sandy MD [address] [place] [address] 05/16/2023 1:30 PM EDT Cardiac Studies Cardiac Studies, [facility] [address] [place] [address] 05/19/2023 1:30 PM EDT Office Visit Cardiology, [address] [address] Lila Burger CRNP [address] [place] [phone] 05/24/2023 2:00 PM EDT Office Visit Podiatry [facility] [address] [place] [address] Eveline Layne DPM [address] [place] [address] 06/07/2023 2:30 PM EDT Office Visit Dermatology [facility] [address] [place] [address] Cyril Borges MD [address] [place] [address] 06/14/2023 1:00 PM EDT Office Visit Cosmetic Surgery & Aesthetics [facility] [address] [place] [address] Conor Venegas PA-C [address] [place] [address] 06/19/2023 1:30 PM EDT Nurse Only Rheumatology [place] [id number] [facility] [place] [address] Pf, Nurse Rheum [facility] [place] [address] 06/27/2023 1:20 PM EDT Office Visit Family Practice [facility] 132 [place] [address] Lambert Plascencia MD [address] [place] [address] 07/03/2023 2:00 PM EDT Office Visit Nephrology, [facility] [address] [facility] [place] [address] Geovanni Linder MD 200 [facility] [place] [address] 07/05/2023 1:00 PM EDT Appointment Radiology, [place] [address] [place] [address] 07/05/2023 2:15 PM EDT Office Visit Urology, [place] [address] [place], [place] [phone] Luis Manuel Sandy MD [address] [place], [place] [phone] 12/20/2023 2:30 PM EDT Imaging Radiology, [place] [address] [place] [address] 12/20/2023 3:20 PM EDT Office Visit Rheumatology [facility] [address] [place] [address] [address] John Yoder MD [address] [facility] [place] [address] Scheduled Procedures Name Priority Associated Diagnoses Date/Ti [...] D LEVEL ONCE IN A LIFETIME-USE SMARTSET# 54463 Completed 06/10/2022, 05/28/2021, 06/20/2020, Additional history exists [...] this encounter Medical Devices Implanted Type Area Escrow Clerk Device Identifier Shelf Expiration Date Model / Serial / Lot Kyphon Hv-R Bone Cement Implanted:Qty: 1 on 08/17/2016 by Michael Smith MD at OR [facility] N/A: Spine Thoracic 03/19/2019 C01A / C01A / [id number] Persona The Personalized Knee System Vivacit-E Highly Crosslinked Polyethylene Articular Surface Medial Congruent Implanted:Qty: 1 on 06/04/2018 by Duc Kimble MD at OR [facility] Right: Knee [employer] 11/19/2022 42-5221-0 - / / [id number] Device Watchman Flx 27mm - [id number] Implanted:Qty: 1 on 10/06/2022 by [place] Penaloza MD at CARDIAC LABS [facility] [employer] : INTRV CARD [id number] 08/07/2025 [id number] / / [id number] documented as of this encounter Advance Directives [...] the patient have Health Care Power of Fringe Maker? No Care Teams Nailer Operator Relationship Specialty Start Date End Date Lambert Plascencia MD [address] [place] [address] PCP - General Family Medicine 10/31/19 documented as of this encounter
--- OUTSIDE RECORDS SUMMARY | 2023-07-29 04:13 | External Medical Summary ---
Author Name Unknown Address Unknown Organization K01:[facility] - [address] [facility] Laboratory Report Ordering Provider Test Date Status XIOMY VELIZ 03/21/2023 11:40:26 Final Observation Date Value Abnormality Reference (Units) Status Bacteria identified in Specimen by Culture 03/21/2023 11:40:26 No significant growth Final Test: Culture, Urine, Quanti tative
Specimen Source: Urine, Clean Catch
Specimen Type: Urine
Specimen Date: 03/21/2023 11:40 AM
Result Date: 03/22/2023 9:23 AM
Result Status: Final result
Resulting Lab: [facility]
[address]
[place] [address]

CULTURE

No significant growth

null Performing Location [facility] - [address] [facility] [address]
--- OUTSIDE RECORDS SUMMARY | 2023-07-29 04:13 | External Medical Summary | Summary of Care ---
Author Name Unknown Organization [facility] Address [address] [place] [address] Phone [phone] Care Team Providers Care Soda Room Operator Name Role Phone Nikunj Plascencia MD Primary Care Provider [phone] Reason for Visit * Reason Comments HISTORY and PHYSICAL Encounter Details Date Type Department Care Team (Late st Contact Info) Description 03/21/2023 11:00 AM EST Office Visit Urology, [place] [address] [place], [place] [phone] Maria Elena Das PA-C [address] [place], [place] [phone] Calculus of kidney* Allergies Active Allergy Reactions [...] Particles (Cymbalta) 0 06/20/2022 Active Saline Nasal [place] 0.65 % Nasal Solution ([place]) Q6H 0 06/06/2022 Active Clobetasol Propionate 0.05 [...] Overview: Added automatically from request for surgery [id number] Nasal septal perforation 06/13/2022 Overview: Per ENT [...] 140/90 12/12/201111/09 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 07/30/2018 Overview: [place] palsy Tinea 06/27/2011 07/30/2018 Mixed urge and stress incontinence 12/15/2008 10/08/2019 ADVANCE DIRECTIVE INFORMATION 06/17/2004 10/08/2019 documented as of this encounter (statuses as of 03/21/2023) Immunizations Name Administration Dates Next Due COVID-19 mRNA, LNP-s, No Pre serve, 2-Dose Series (Eventful) 10/05/2020,09/14/2020 Covid-19, Mrna, Lnp-s, Pf, B ivalent, [...] Das PA-C - 03/21/2023 11:04 AM EST [facility] Department of Urology [address] [facility] [place] [address] [phone] Patient Education 1. As a requirement for [...] feel free to sign up for a AppSense account at [email or web address]. Using [employer]ENTA you can message [facility] providers, follow your laboratory studies as well as track your overall care. Thank you for your cooperation Maria Elena Das PA-C Department of Urology Some items above may not apply to every patient documented in this encounter Progress Notes * Maria Elena Das PA-C - 03/21/2023 11:31 AM EST See H&P documented in this encounter Miscellaneous Notes * Addendum Note - Isamar Jarvis TECH - 03/21/2023 12:12 PM ESTAddended by: ISAMAR JARVIS on: 03/21/2023 12:12 PM Modules accepted: Orders documented in this encounter Plan of Treatment Upcoming Encounters Date Type Department Care Team (Latest Contact Info) Description 03/30/2023 3:15 PM EST Office Visit Orthopaedics [facility] [address] [place] [place] [address] Alpesh De León, [address] [place] [address] 04/03/2023 12:37 PM EST Hospital Encounter [facility]OM [facility], [facility] [place] [address] [place] [address] Luis Manuel Sandy MD [address] [place] [facility] [address] 04/03/2023 12:37 PM EST - 04/03/2023 2:27 PM EST Surgery [facility]ATING ROOM [facility], [facility] [address] [place] [address] Luis Manuel Sandy MD [address] [place] [address] CYSTOURETHROSCOPY URETEROSCOPY WITH LITHOTRIPSY AND STENT INSERTION 04/13/2023 2:00 PM EST Office Visit Pharmacy, [facility] 132 [place] [address] [facility] 132 [facility] [place] [address] 04/20/2023 1:00 PM EST Appointment Radiology, [place] [address] [place] [phone] 04/20/2023 1:45 PM EST Procedure Only Urology, [place] [address] [place] [address] Luis Manuel Sandy MD [address] [place] [address] 05/16/2023 1:30 PM EDT Cardiac Studies Cardiac Studies, [facility] 132 [place] [address] 05/19/2023 1:30 PM EDT Office Visit Cardiology, [facility] [address] [place] [address] Lila Burger CRNP [address] [place] [phone] 05/24/2023 2:00 PM EDT Office Visit Podiatry [facility] 132 [facility] [place] [address] Eveline Layne, JAMAL [address] [place] [address] 06/07/2023 2:30 PM EDT Office Visit Dermatology [facility] [address] [place] [address] Cyril Borges MD [address] [place] [address] 06/14/2023 1:00 PM EDT Office Visit Cosmetic Surgery & Aesthetics [facility] [address] [place] [address] Conor Venegas PA-C [facility] [place] [address] 06/19/2023 1:30 PM EDT Nurse Only Rheumatology [address] [place] [address] Pf, Nurse Rheum [address] [place] [address] [place] [address] 06/27/2023 1:20 PM EDT Office Visit Family Practice [facility] [address] [place] [address] Nikunj Plascencia MD [address] [place] [address] 07/03/2023 2:00 PM EDT Office Visit Nephrology, [facility] [address] [place], [place] [address] Geovanni Linder MD [address] [place] [address] 07/05/2023 1:00 PM EDT Appointment Radiology, [address] [id number] 07/05/2023 2:15 PM EDT Office Visit Urology, [address] [phone] Luis Manuel Sandy MD [address] [place] [address] 12/20/2023 2:30 PM EDT Imaging Radiology, [address] [place] [address] 12/20/2023 3:20 PM EDT Office Visit Rheumatology [address] [place] [address] John Yoder MD [address] [place] [address] [place] [address] Pending Results Name Type Priority Associated Diagnoses Date /Time CULTURE, URINE, QUANTITATIVE Lab Routine Calculus of kidney 03/21/2023 11:40 AM EST EXTRA TUBES Lab Routine 03/21/2023 11 :40 AM EST EXTRA URINE MARBLE TOP Lab Routine 11:40 AM EST Scheduled Orders Name Type Priority Associated Diagnoses Orde r Schedule CBC Lab Routine Calculus of kidney Ordered: [...] D LEVEL ONCE IN A LIFETIME-USE SMARTSET# [id number] Completed 06/10/2022, 05/28/2021, 06/20/2020, Additional history exists [...] this encounter Medical Devices Implanted Type Area University Intern Device Identifier Shelf Expiration Date Model / Serial / Lot Kyphon Hv-R Bone Cement Implanted:Qty: 1 on 08/17/2016 by Michael Smith MD at OR [facility] N/A: Spine Thoracic 03/19/2019 C01A / C01A / [id number] Persona The Personalized Knee System Vivacit-E Highly Crosslinked Polyethylene Articular Surface Medial Congruent Implanted:Qty: 1 on 06/04/2018 by Duc Kimble MD at OR [facility] Right: Knee [employer] 11/19/2022 [id number] - [id number] Device Watchman Flx 27mm - [id number] Implanted:Qty: 1 on 10/06/2022 by [place] Penaloza MD at CARDIAC LABS [facility] [employer] : INTRV CARD [id number] 08/07/2025 [id number] / / [id number] documented as of this encounter Visit Diagnoses [...] the patient have Health Care Power of Engraver Tire Mold? No Care Teams Soda Room Operator Relationship Specialty Start Date End Date Nikunj Plascencia MD 132 [facility] [place] [address] PCP - General Family Medicine 10/31/19 documented as of this encounter
--- OUTSIDE RECORDS SUMMARY | 2023-07-29 04:13 | External Medical Summary | Summary of Care ---
Author Name Unknown Organization [facility] Address [address] [place] [address] Phone [phone] Care Team Providers Care Funeral Sales Manager Name Role Phone Nikunj Plascencia MD Primary Care Provider [phone] Reason for Visit * Reason Comments Follow Up Encounter Details Date Type Department Care Team (Late st Contact Info) Description 02/15/2023 3:00 PM EST Office Visit Dermatology [facility] [address] [place] [address] Cyril Borges MD [address] [place], [place] [id number] Encounter for therapeutic drug monitoring*; Dermatosis; Chronic dryness of both eyes; Scalp pruritus Allergies Active Allergy Reactions Criticality Noted Date Comments Egg Shells 06/16/2018 Other reaction(s): GI SYMPTOMS Egg Yolk High 11/29/2019 Other reaction(s): GI upset Ibuprofen Other (Please comment) 07/30/2010 Stomach upset Morphine 08/28/2021 Other reaction(s): LEGS SWELL documented as of this encounter (statuses as of 03/01/2023) Medications Medication Sig Dispensed Refills Start Date [...] Particles (Cymbalta) 0 06/20/2022 Active Saline Nasal Duncan 0.65 % Nasal Solution (Titus) Q6H 0 06/06/2022 Active Clobetasol Propionate 0.05 [...] 12 hours. 5.5 mL 5 02/15/2023 Active traZODone HCl 100 MG Oral Tablet (Desyrel) Take 2 Tablets by mouth at bedtime. 0 11/27/2021 4 Discontinue d(Medicatio n/Dose Changed) Pregabalin 100 MG Oral Capsule (Lyrica) TAKE 1 CAPSULE BY MOUTH IN THE MORNING AND BEFORE BEDTIME 30 Capsule 3 12/07/2022 3 Discontinue d(Discharge d) Acitretin 10 MG Oral Capsule Take 1 capsule daily with breakfast. 90 Capsule 1 12/14/2022 3 Discontinue d(Refill) Calcipotriene 0.005 % External Cream (Calcitrene) Apply thin film to affected areas at face, chest, arms, ears, twice daily as needed. 120 g 3 12/14/2022 3 Discontinue d(Discharge d) Calcipotriene 0.005 % External Cream (Calcitrene) Apply thin film to scaly plaques (e.g. at face and ears) twice daily as needed. 120 g 3 02/15/2023 3 Discontinue d(Discharge d) Hospital, Clinic, or Other Facility Administered Medication Ordered Dose Route Frequency Start Date End Date Status atropine sulfate inj 0.4 mgIndications:Chest pain, unspecified type 0.4 mg IV PUSH PRN 01/29/2021 Active documented as of this encounter (statuses as of 03/01/2023) Active Problems Problem Noted Date Diagnosed Date Food insecurity 01/02/2023 Overview: Per [facility] Protocol Presence of Watchman left atrial appendage closu re device 12/19/2022 PAF (paroxysmal atrial fibrillation) 08/17/2022 Overview: Added automatically from request for surgery [id number] Nasal septal perforation 06/13/2022 Overview: Per ENT [...] as of this encounter (statuses as of 03/01/2023) Resolved Problems Problem Noted Date Diagnosed Date [...] 140/90 12/12/201111/09 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 07/30/2018 Overview: Moran palsy Tinea 06/27/2011 07/30/2018 Mixed urge and stress incontinence 12/15/2008 10/08/2019 ADVANCE DIRECTIVE INFORMATION 06/17/2004 10/08/2019 documented as of this encounter (statuses as of 03/01/2023) Immunizations Name Administration Dates Next Due COVID-19 mRNA, LNP-s, No Pre serve, 2-Dose Series ([employer]) 10/05/2020,09/14/2020 Covid-19, Mrna, Lnp-s, Pf, B ivalent, [...] 30 Q uit: 07/30/2008 Smokeless Tobacco: Never Tobacco Cessation:Counseling Given: [...] Progress Notes * Cyril Borges MD - 02/15/2023 3:00 PM EST Dermatology Clinic Progress Note Subjective: Caroline Paulino is a 67 year old female. Chief Complaint Patient presents with Follow Up HPI: Follow up facial discoid dermatosis. Some improvement with Dupixent and acitretin. C/o very dry eyes. Past Medical History: Past Medical History: Diagnosis Date --- DIABETES --- prediabetes Acute on chronic diastolic CHF (congestive heart failure) ([facility]) 01/26/2018 Allergic rhinitis Collazo's palsy left eye palsy Benign neoplasm of colon 11/20/2010 hyperplastic polyps- repeat colonoscopy in 10 years Bicuspid aortic valve 10/09/2019 Bullous pemphigoid 08/17/2016 txt with cellcept Chronic insomnia 12/22/2020 CKD (chronic kidney disease) stage 3, GFR 30-59 ml/min ([facility]) Compression fracture of body of thoracic vertebra ([facility]) 08/17/2016 Controlled substance agreement terminated 10/20/2021 Current tear of medial cartilage or meniscus of knee left knee Depression with anxiety 10/20/2021 Depressive disorder, not elsewhere classified Disorder of adrenal gland ([facility]) 01/26/2018 Dyslipidemia 12/20/2019 Fall 06/30/2022 [...] Moderate episode of recurrent major depressive disorder ([facility]) 10/08/2019 Other pulmonary embolism without acute cor pulmonale ([facility]) 07/27/2018 Overflow incontinence Paroxysmal atrial flutter ([facility]) 06/21/2021 Presence of Watchman left atrial appendage closure device 12/19/2022 Recurrent major depressive disorder in remission ([facility]) 01/26/2018 S/P kyphoplasty 08/17/2016 Sacroiliitis ([facility]) 01/26/2018 Senile osteoporosis 08/29/2017 Spinal [...] on Dupixent -- continue 300 mg SQ [id number] -Continue acitretin 10 mg PO Qday -- recheck lipids at ROV -Continue calcipotriene 0.005% cream BID 2. Scalp pruritus: -Favor neuropathic -Trial of Dermaleve solution 3. Dry eyes: -Start Restasis BID RTC May 2023 Cyril Borges MD Dermatology [address] [address] documented in this encounter Plan of Treatment Upcoming Encounters Date Type Department Care Team (Latest Contact Info) Description 03/07/2023 2:00 PM EST Office Visit Orthopaedics, [facility] [place] [address] [place], [place] [phone] Alpesh De León, [address] [facility] [place] [address] 03/21/2023 11:00 AM EST Office Visit Urology, [employer] [address] [place] [address] Maria Elena Das PA-C [address] [place] [address] 04/03/2023 12:37 PM EST Hospital Encounter [place] [facility], OPERATING ROOM [facility] [address] [place] [address] Luis Manuel Sandy MD [address] [place] [address] 04/03/2023 12:37 PM EST - 04/03/2023 2:27 PM EST Surgery OR [facility], OPERATING ROOM [facility] [address] [place] [address] Luis Manuel Sandy MD [address] [place] [address] CYSTOURETHROSCOPY URETEROSCOPY WITH LITHOTRIPSY AND STENT INSERTION 04/13/2023 2:00 PM EST Office Visit Pharmacy, [address] [address] 04/20/2023 1:00 PM EST Appointment Radiology, [place] [address] [place] [phone] 04/20/2023 1:45 PM EST Procedure Only Urology, [place] [address] [place] [address] Luis Manuel Sandy MD [address] [place] [address] 05/16/2023 1:30 PM EDT Cardiac Studies Cardiac Studies, [address] [address] 05/19/2023 1:30 PM EDT Office Visit Cardiology, [address] [address] Lila Burger CRNP [address] [place] [phone] 05/24/2023 2:00 PM EDT Office Visit Podiatry [facility] [address] [place] [address] Eveline Layne DPM [address] [place] [address] 06/07/2023 2:30 PM EDT Office Visit Dermatology [facility] [address] [place] [address] Cyril Borges MD [address] [place] [address] 06/14/2023 1:00 PM EDT Office Visit Cosmetic Surgery & Aesthetics [facility] [address] [place] [address] Conor Venegas PA-C [address] [place] [address] 06/19/2023 1:30 PM EDT Nurse Only Rheumatology [place] [address] [facility] [place] [address] Pf, Nurse Rheum [facility] [place] [address] 06/27/2023 1:20 PM EDT Office Visit Family Practice [facility] [address] [place] [address] Nikunj Plascencia MD [address] [place] [address] 07/03/2023 2:00 PM EDT Office Visit Nephrology, [facility] [address] [place] [address] Geovanni Linder MD [address] [place] [address] 07/05/2023 1:00 PM EDT Appointment Radiology, [employer] [address] [place] [address] 07/05/2023 2:15 PM EDT Office Visit Urology, [employer] [address] [place] [address] Luis Manuel Sandy MD [address] [place] [address] 12/20/2023 2:30 PM EDT Imaging Radiology, [place] [address] [facility] [place] [address] 12/20/2023 3:20 PM EDT Office Visit Rheumatology [place] [address] [facility] [place] [address] John Yoder MD [address] [place], [place] [address] Scheduled Orders Name Type Priority Associated Diagnoses Orde r Schedule LIPID PANEL WITH DIRECT LDL IF TG IS HIGH Lab Routine Encounter for therapeutic drug monitoring Ordered: 02/15/2023 COMPREHENSIVE METABOLIC PANEL Lab Routine Encounter for therapeutic drug monitoring Ordered: 02/15/2023 Scheduled Procedures Name Priority Associated Diagnoses Date/Ti [...] D LEVEL ONCE IN A LIFETIME-USE SMARTSET# [id number] Completed 06/10/2022, 05/28/2021, 06/20/2020, Additional history exists [...] this encounter Medical Devices Implanted Type Area Pharmaceutical Laboratory Technician Device Identifier Shelf Expiration Date Model / Serial / Lot Kyphon Hv-R Bone Cement Implanted:Qty: 1 on 08/17/2016 by Michael Smith MD at OR [facility] N/A: Spine Thoracic 03/19/2019 C01A / [id number] / [id number] Persona The Personalized Knee System Vivacit-E Highly Crosslinked Polyethylene Articular Surface Medial Congruent Implanted:Qty: 1 on 06/04/2018 by Duc Kimble MD at OR [facility] Right: Knee [employer] 11/19/2022 [id number] - [id number] Device Watchman Flx 27mm - [id number] Implanted:Qty: 1 on 10/06/2022 by Austin Penaloza MD at CARDIAC LABS [facility] Ifbyphone : INTRV CARD [id number] 08/07/2025 [id number] / / [id number] documented as of this encounter Visit Diagnoses Diagnosis Encounter for therapeutic drug monitoring- Primary Dermatosis Unspecified disorder of skin and subcutaneous tissue Chronic dryness of both eyes Scalp pruritus Unspecified pruritic disorder Renal calculi Calculus of kidney documented in [...] patient have Health Care Power of Senior Design Engineering Specialist? No Care Teams Funeral Sales Manager Relationship Specialty Start Date End Date Nikunj Plascencia MD [address] [facility] [place] [address] PCP - General Family Medicine 10/31/19 documented as of this encounter
--- OUTSIDE RECORDS SUMMARY | 2023-07-29 04:13 | External Medical Summary | Summary of Care ---
Author Name Unknown Organization [facility] Address [address] [place] [address] Phone [phone] Care Team Providers Care Electric Motor Controls Assembler Name Role Phone Nikunj Plascencia MD Primary Care Provider [phone] Encounter Details Date Type Department Care Team (Late st Contact Info) Description 03/28/2023 Telephone Orthopaedics [facility] [address] [place] [address] Alpesh De León, [address] [place] [address] Allergies Active Allergy Reactions Criticality Noted Date Comments Egg Shells 06/16/2018 Other reaction(s): GI SYMPTOMS Egg Yolk High 11/29/2019 Other reaction(s): GI upset Ibuprofen Other (Please comment) 07/30/2010 Stomach upset Morphine 08/28/2021 Other reaction(s): LEGS SWELL documented as of this encounter (statuses as of 03/28/2023) Medications Medication Sig Dispensed Refills Start Date [...] Particles (Cymbalta) 0 06/20/2022 Active Saline Nasal [employer] 0.65 % Nasal Solution ([place]) Q6H 0 06/06/2022 Active Clobetasol Propionate 0.05 [...] as of this encounter (statuses as of 03/28/2023) Active Problems Problem Noted Date Diagnosed Date Renal stone 03/21/2023 Food insecurity 01/02/2023 Overview: Per [facility] Protocol Presence of Watchman left atrial appendage closu re device 12/19/2022 PAF (paroxysmal atrial fibrillation) 08/17/2022 Overview: Added automatically from request for surgery [id number] Nasal septal perforation 06/13/2022 Overview: Per ENT [...] as of this encounter (statuses as of 03/28/2023) Resolved Problems Problem Noted Date Diagnosed Date [...] 140/90 12/12/201111/09 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 07/30/2018 Overview: [place] palsy Tinea 06/27/2011 07/30/2018 Mixed urge and stress incontinence 12/15/2008 10/08/2019 ADVANCE DIRECTIVE INFORMATION 06/17/2004 10/08/2019 documented as of this encounter (statuses as of 03/28/2023) Immunizations Name Administration Dates Next Due COVID-19 mRNA, LNP-s, No Pre serve, 2-Dose Series ([employer]) 10/05/2020,09/14/2020 Covid-19, Mrna, Lnp-s, Pf, B ivalent, [...] encounter Miscellaneous Notes * Telephone Encounter - Mariana Gann OSA - 03/28/2023 10:36 AM EST Called and left patient a voicemail that there was a change with appointment on 03/30/23. Dr. De León will not be out of the office. Appointment will be with Robert Lane PA-C at 1:30pm on 03/30/23. Asked patient to return call if appointment did not work. documented in this encounter Plan of Treatment Upcoming Encounters Date Type Department Care Team (Latest Contact Info) Description 03/30/2023 1:30 PM EST Office Visit Orthopaedics [facility] 132 [place] [address] PA-C [address] [place] [address] [place] [address] 04/03/2023 2:27 PM EST Hospital Encounter OR [facility], OPERATING ROOM [facility] [address] [facility] [place] [address] Luis Manuel Sandy MD [address] [place] [facility] [place] [address] 04/03/2023 2:27 PM EST - 04/03/2023 4:07 PM EST Surgery OR [facility], OPERATING ROOM [facility] [address] [place] [address] Luis Manuel Sandy MD [address] [place] [address] CYSTOURETHROSCOPY URETEROSCOPY WITH LITHOTRIPSY AND STENT INSERTION 04/13/2023 2:00 PM EST Office Visit Pharmacy, [facility] [address] [place] [address] [facility] [address] [place] [address] 04/20/2023 1:00 PM EST Appointment Radiology, [place] [address] [place] [phone] 04/20/2023 1:45 PM EST Procedure Only Urology, [place] [address] [place] [address] Luis Manuel Sandy MD [address] [place] [address] 05/16/2023 1:30 PM EDT Cardiac Studies Cardiac Studies, [facility] [address] [place] [address] 05/19/2023 1:30 PM EDT Office Visit Cardiology, [facility] [address] [place] [address] Lila Burger CRNP [address] [place] [phone] 05/24/2023 2:00 PM EDT Office Visit Podiatry [facility] [address] [place] [address] Evelnie Layne DPM [address] [place] [address] 06/07/2023 2:30 PM EDT Office Visit Dermatology [address] [address] Cyril Borges MD [address] [place] [address] 06/14/2023 1:00 PM EDT Office Visit Cosmetic Surgery & Aesthetics [facility] [address] [place] [address] Conor Venegas PA-C [address] [place] [address] 06/19/2023 1:30 PM EDT Nurse Only Rheumatology [address] [place] [address] Pf, Nurse Rheum [address] [place] [address] [place] [address] 06/27/2023 1:20 PM EDT Office Visit Family Practice [facility] [address] [place] [address] Nikunj Plascencia MD 132 [place] [address] 07/03/2023 2:00 PM EDT Office Visit Nephrology, [facility] 200 [facility] [place] [address] Geovanni Linder MD 200 [facility] [place] [address] 07/05/2023 1:00 PM EDT Appointment Radiology, [address] [address] 07/05/2023 2:15 PM EDT Office Visit Urology, [address] [phone] Luis Manuel Sandy MD [address] [place], [place] [phone] 12/20/2023 2:30 PM EDT Imaging Radiology, [address] [place] [address] 12/20/2023 3:20 PM EDT Office Visit Rheumatology [facility] [address] [place] [address] John Yoder MD [address] [facility] [place] [address] Scheduled Procedures Name Priority Associated Diagnoses Date/Ti me CYSTOURETHROSCOPY URETEROSCOPY WITH LITHOTRIPSY AND STENT INSERTION Renal calculi 04/03/2023 2:27 PM EST ROBOTIC ARTHROPLASTY KNEE TOTAL Knee [...] D LEVEL ONCE IN A LIFETIME-USE SMARTSET# [id number] Completed 06/10/2022, 05/28/2021, 06/20/2020, Additional history exists [...] this encounter Medical Devices Implanted Type Area Hydroelectric Station Operator Chief Device Identifier Shelf Expiration Date Model / Serial / Lot Kyphon Hv-R Bone Cement Implanted:Qty: 1 on 08/17/2016 by Michael Smith MD at OR [facility] N/A: Spine Thoracic 03/19/2019 C01A / C01A / [id number] Persona The Personalized Knee System Vivacit-E Highly Crosslinked Polyethylene Articular Surface Medial Congruent Implanted:Qty: 1 on 06/04/2018 by Duc Kimble MD at OR [facility] Right: Knee [employer] 11/19/2022 [id number] / [id number] Device Watchman Flx 27mm - [id number] Implanted:Qty: 1 on 10/06/2022 by Austin Penaloza MD at CARDIAC LABS [facility] Smartsheet : INTRV CARD [id number] 08/07/2025 [id number] / / [id number] documented as of this encounter Advance Directives [...] patient have Health Care Power of Field Installation Technician? No Care Teams Electric Motor Controls Assembler Relationship Specialty Start Date End Date Nikunj Plascencia MD [address] [place] [address] PCP - General Family Medicine 10/31/19 documented as of this encounter
--- OUTSIDE RECORDS SUMMARY | 2023-07-29 04:14 | External Medical Summary | Summary of Care ---
Author Name Unknown Organization [facility] Address [address] [place] [address] Phone [phone] Care Team Providers Care Cell Tester Name Role Phone Nikunj Plascencia MD Primary Care Provider [phone] Encounter Details Date Type Department Care Team (Late st Contact Info) Description 02/14/2023 Orders Only Outcomes Research Department [address] [place] [address] Briana Howard CHRA [employer] Research Other*[id number] Allergies Active Allergy Reactions Criticality Noted Date Comments Egg Shells 06/16/2018 Other reaction(s): GI SYMPTOMS Egg Yolk High 11/29/2019 Other reaction(s): GI upset Ibuprofen Other (Please comment) 07/30/2010 Stomach upset Morphine 08/28/2021 Other reaction(s): LEGS SWELL documented as of this encounter (statuses as of 02/14/2023) Medications Medication Sig Dispensed Refills Start Date [...] when flaring 100 g 2 09/27/2021 Active traZODone HCl 100 MG Oral Tablet (Desyrel) Take 2 Tablets by mouth at bedtime. 0 11/27/2021 Active Betamethasone Dipropionate 0.05 % External OintmentIndications:R [...] Particles (Cymbalta) 0 06/20/2022 Active Saline Nasal [place] 0.65 % Nasal Solution ([place]) Q6H 0 06/06/2022 Active Clobetasol Propionate 0.05 [...] 07, 2022. 34 Tablet 11 10/07/2022 Active Pregabalin 100 MG Oral Capsule (Lyrica) TAKE 1 CAPSULE BY MOUTH IN THE MORNING AND BEFORE BEDTIME 30 Capsule 3 12/07/2022 Active Acitretin 10 MG Oral Capsule Take 1 capsule daily with breakfast. 90 Capsule 1 12/14/2022 Active Calcipotriene 0.005 % External Cream (Calcitrene) Apply thin film to affected areas at face, chest, arms, ears, twice daily as needed. 120 g 3 12/14/2022 Active valACYclovir HCl 1 GM Oral Tablet [...] 2 weeks. 4 mL 4 01/31/2023 Active Hospital, Clinic, or Other Facility Administered Medication Ordered Dose Route Frequency Start Date End Date Status atropine sulfate inj 0.4 mgIndications:Chest pain, unspecified type 0.4 mg IV PUSH PRN 01/29/2021 Active documented as of this encounter (statuses as of 02/14/2023) Active Problems Problem Noted Date Diagnosed Date Food insecurity 01/02/2023 Overview: Per [facility] Protocol Presence of Watchman left atrial appendage closu re device 12/19/2022 PAF (paroxysmal atrial fibrillation) 08/17/2022 Overview: Added automatically from request for surgery [id number] Nasal septal perforation 06/13/2022 Overview: Per ENT [...] as of this encounter (statuses as of 02/14/2023) Resolved Problems Problem Noted Date Diagnosed Date [...] 140/90 12/12/201111/09 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 07/30/2018 Overview: [place] palsy Tinea 06/27/2011 07/30/2018 Mixed urge and stress incontinence 12/15/2008 10/08/2019 ADVANCE DIRECTIVE INFORMATION 06/17/2004 10/08/2019 documented as of this encounter (statuses as of 02/14/2023) Immunizations Name Administration Dates Next Due COVID-19 mRNA, LNP-s, No Pre serve, 2-Dose Series ([employer]er[employer][email or web address]) 10/05/2020,09/14/2020 Covid-19, Mrna, Lnp-s, Pf, B ivalent, 30 Mcg, IM, 12 yrs and above (Refer[employer]com) 05/26/2022 Pneumococcal Conjugate Vacc, 13 Valent (Prevnar) [...] Department Care Team (Latest Contact Info) Description 02/15/2023 3:00 PM EST Office Visit Dermatology [facility] [address] [place] [id number] Cyril Borges MD 16 [facility] [address] 02/22/2023 3:00 PM EST Office Visit Podiatry [facility] [address] [place] [address] Eveline Layne, DP 400 [place] [address] 03/21/2023 11:00 AM EST Office Visit Urology [place] [address] [facility] [place] [id number] Maria Elena Das PA-C [address], [place] [id number] 04/03/2023 12:37 PM EST Hospital Encounter [place] [facility] [address] [facility] [place] [id number] Luis Manuel Sandy MD [address] [facility] [place] [id number] 04/03/2023 12:37 PM EST - 04/03/2023 2:27 PM EST Surgery OR C, OPERATING ROOM [facility] [address] [place] [address] Luis Manuel Sandy MD [address] [place] [address] CYSTOURETHROSCOPY URETEROSCOPY WITH LITHOTRIPSY AND STENT INSERTION 04/13/2023 2:00 PM EST Office Visit Pharmacy, [facility] [address] [place] [address] [facility] 132 [place] [address] 04/20/2023 1:00 PM EST Appointment Radiology, [place] [address] [place] [address] 04/20/2023 1:45 PM EST Procedure Only Urology, [place] [address], [place] [phone] Luis Manuel Sandy MD [address] [place] [address] 05/19/2023 1:30 PM EDT Office Visit Cardiology, [facility] [address] [place] [address] Lila Burger CRNP [address] [place] [phone] 06/14/2023 1:00 PM EDT Office Visit Cosmetic Surgery & Aesthetics [facility] 16 [place] [address] Conor Venegas PA-C [address] [place] [address] 06/19/2023 1:30 PM EDT Nurse Only Rheumatology [place] [address]280 [facility] [place], [place] [address] Pf, Nurse Rheum [facility] [place] [address] 06/27/2023 1:20 PM EDT Office Visit Family Practice [facility] [address] [place] [address] Nikunj Plascencia MD [address] [place] [address] 07/03/2023 2:00 PM EDT Office Visit Nephrology, [facility] 200 [facility] [place] [address] Geovanni Linder MD 200 [facility] [place] [address] 07/05/2023 1:00 PM EDT Appointment Radiology, [address] [address] 07/05/2023 2:15 PM EDT Office Visit Urology, [address] [address] Luis Manuel Sandy MD [facility] [place] [address] 12/20/2023 2:30 PM EDT Imaging Radiology, [address] [place] [address] 12/20/2023 3:20 PM EDT Office Visit Rheumatology [address] [place] [address] John Yoder MD [address] [place] [address] [place] [address] Scheduled Orders Name Type Priority Associated Diagnoses Orde r Schedule MYCODE INITIAL ADULT Lab Routine [employer] Research Other*[id number] Expected: 02/14/2023 (Approximate), Expires: 03/05/2024 Scheduled Procedures Name Priority Associated Diagnoses Date/Ti [...] D LEVEL ONCE IN A LIFETIME-USE SMARTSET# 88031 Completed 06/10/2022, 05/28/2021, 06/20/2020, Additional history exists [...] this encounter Medical Devices Implanted Type Area Boring Machine Operator Vertical Device Identifier Shelf Expiration Date Model / Serial / Lot Kyphon Hv-R Bone Cement Implanted:Qty: 1 on 08/17/2016 by Michael Smith MD at OR [facility] N/A: Spine Thoracic 03/19/2019 C01A / [id number] / [id number] Persona The Personalized Knee System Vivacit-E Highly Crosslinked Polyethylene Articular Surface Medial Congruent Implanted:Qty: 1 on 06/04/2018 by Duc Kimble MD at OR [facility] Right: Knee [employer] 11/19/2022 [id number] 07-12 / / [id number] Device Watchman Flx 27mm - [id number] Implanted:Qty: 1 on 10/06/2022 by Austin Penaloza MD at CARDIAC LABS [facility] [employer] : INTRV CARD [id number] 08/07/2025 [id number] / / [id number] documented as of this encounter Visit Diagnoses Diagnosis [employer] Other*[id number] Renal calculi Calculus of kidney documented in [...] the patient have Health Care Power of Customer Success Advocate? No Care Teams Cell Tester Relationship Specialty Start Date End Date Temo, Nikunj Guillermo, MD [address] [place] [address] PCP - General Family Medicine 10/31/19 documented as of this encounter
--- OUTSIDE RECORDS SUMMARY | 2023-07-29 04:14 | External Medical Summary | Summary of Care ---
Author Name Unknown Organization [facility] Address [address] [place] [address] Phone [phone] Care Team Providers Care Patient Coordinator Front Desk Name Role Phone Nikunj Plascencia MD Primary Care Provider [phone] Reason for Visit * Reason Comments Follow Up Bilateral feet Encounter Details Date Type Department Care Team (Late st Contact Info) Description 02/22/2023 3:00 PM EST Office Visit [facility] [address] Eveline Layne, DPM [address] [place] [address] Sinus tarsitis of left foot*; Plantar fasciitis, right; Pain in both feet; Stage 3a chronic kidney disease (HCC); Pre-ulcerative calluses Allergies Active Allergy Reactions Criticality Noted Date Comments Egg Shells 06/16/2018 Other reaction(s): GI SYMPTOMS Egg Yolk High 11/29/2019 Other reaction(s): GI upset Ibuprofen Other (Please comment) 07/30/2010 Stomach upset Morphine 08/28/2021 Other reaction(s): LEGS SWELL documented as of this encounter (statuses as of 02/24/2023) Medications Medication Sig Dispensed Refills Start Date [...] Particles (Cymbalta) 0 06/20/2022 Active Saline Nasal [place] 0.65 % Nasal Solution ([place]) Q6H 0 06/06/2022 Active Clobetasol Propionate 0.05 [...] Tablets by mouth at bedtime. 0 11/27/2021 Discontinue d(Medicatio n/Dose Changed) Hospital, Clinic, or Other Facility Administered Medication Ordered Dose Route Frequency Start Date End Date Status atropine sulfate inj 0.4 mgIndications:Chest pain, unspecified type 0.4 mg IV PUSH PRN 01/29/2021 Active dexAMETHasone Sodium Phosphate (Decadron) 4 MG/ML inj 2 mgIndications:Plantar fasciitis, right,Pain in both feet 2 mg IM ONCE 02/22/2023 02/22/2023 Ended methylPREDNISolone acetate (Depo-Medrol) 40 MG/ML inj 20 mgIndications:Plantar fasciitis, right,Pain in both feet 20 mg IM ONCE 02/22/2023 02/22/2023 Ended bupivacaine (Sensorcaine) 0.5 % inj 2.5 mgIndications:Plantar fasciitis, right,Pain in both feet 2.5 mg IJ ONCE 02/22/2023 02/22/2023 Ended bupivacaine (Sensorcaine) 0.5 % inj 2.5 mgIndications:Sinus tarsitis of left foot,Pain in both feet 2.5 mg IJ ONCE 02/22/2023 02/22/2023 En ded dexAMETHasone Sodium Phosphate (Decadron) 4 MG/ML inj 2 mgIndications:Sinus tarsitis of left foot,Pain in both feet 2 mg IX ONCE 02/22/2023 02/22/2023 En ded methylPREDNISolone acetate (Depo-Medrol) 40 MG/ML inj 20 mgIndications:Sinus tarsitis of left foot,Pain in both feet 20 mg IX ONCE 02/22/2023 02/22/2023 En ded documented as of this encounter (statuses as of 02/24/2023) Active Problems Problem Noted Date Diagnosed Date Food insecurity 01/02/2023 Overview: Per [facility] Protocol Presence of Watchman left atrial appendage closu re device 12/19/2022 PAF (paroxysmal atrial fibrillation) 08/17/2022 Overview: Added automatically from request for surgery [id number] Nasal septal perforation 06/13/2022 Overview: Per ENT [...] as of this encounter (statuses as of 02/24/2023) Resolved Problems Problem Noted Date Diagnosed Date [...] 140/90 12/12/201111/09 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 07/30/2018 Overview: [place] palsy Tinea 06/27/2011 07/30/2018 Mixed urge and stress incontinence 12/15/2008 10/08/2019 ADVANCE DIRECTIVE INFORMATION 06/17/2004 10/08/2019 documented as of this encounter (statuses as of 02/24/2023) Immunizations Name Administration Dates Next Due COVID-19 mRNA, LNP-s, No Pre serve, 2-Dose Series ([employer]) 10/05/2020,09/14/2020 Covid-19, Mrna, Lnp-s, Pf, B [...] Progress Notes * Eveline Layne, DPM - 02/22/2023 3:00 PM EST Podiatry Established Note [facility] [place] Name: Caroline Paulino : 1955 Date: 02/22/2023 REASON FOR VISIT: requesting injection left foot and right heel pain, painful calluses SUBJECTIVE: This patient is a 67 year old female who presents today for follow up of left foot painand right heel pain. She reports improvement with a sinus tarsi injection and right heel injection in July. She would like another injection in each site today. She also notes painful calluses to theleft plantar foot and right distal 2nd toe. Medical necessity reason: CKD3 Last primary care appointment: 09/09/2022 Nikunj Plascencia MD Past Medical History: Diagnosis Date --- DIABETES --- prediabetes Acute on chronic diastolic CHF (congestive heart failure) ([facility]) 01/26/2018 Allergic rhinitis Collazo's palsy left eye palsy Benign neoplasm of colon 11/20/2010 hyperplastic polyps- repeat colonoscopy in 10 years Bicuspid aortic valve 10/09/2019 Bullous pemphigoid 08/17/2016 txt with cellcept Chronic insomnia 12/22/2020 CKD (chronic kidney disease) stage 3, GFR 30-59 ml/min ([facility]) Compression fracture of body of thoracic vertebra ([facility]) 08/17/2016 Controlled substance agreement terminated 10/20/2021 Current tear of medial cartilage or meniscus of knee left knee Depression with anxiety 10/20/2021 Depressive disorder, not elsewhere classified Disorder of adrenal gland ([facility]) 01/26/2018 Dyslipidemia 12/20/2019 Fall 06/30/2022 Female stress [...] episode of recurrent major depressive disorder ([facility]) 10/08/2019 Other pulmonary embolism without acute cor pulmonale ([facility]) 07/27/2018 Overflow incontinence Paroxysmal atrial flutter ([facility]) 06/21/2021 Presence of Watchman left atrial appendage closure device 12/19/2022 Recurrent major depressive disorder in remission ([facility]) 01/26/2018 S/P kyphoplasty 08/17/2016 Sacroiliitis ([facility]) 01/26/2018 Senile osteoporosis 08/29/2017 Spinal stenosis of lumbar region without neurogenic claudication 01/04/2017 Status post total right knee replacement 06/06/2018 Tibial plateau fracture 01/22/2015 ALLERGIES: Review of patient's allergies indicates: Allergen Reactions Egg Yolk Other reaction(s): GI upset Egg Shells Other reaction(s): GI SYMPTOMS Ibuprofen Other (Please comment) Stomach upset Morphine Other reaction(s): LEGS SWELL REVIEW OF SYSTEMS: CONSTITUTIONAL: No fever FOCUSED [...] Nursing Notes * Swetha Blackwell LPN - 02/22/2023 2:27 PM EST Pt presents for 3 month follow up bilateral feet, calluses and injections, last received 11/11/2022 with relief. documented in this encounter Plan of Treatment Upcoming Encounters Date Type Department Care Team (Latest Contact Info) Description 03/07/2023 2:00 PM EST Office Visit Orthopaedics, [address] [place] [address] [place] [address] [place] [address] Alpesh De León, [address] [place] [address] 03/21/2023 11:00 AM EST Office Visit Urology, [place] [address] [facility] [place] [address] Maria Elena Das PA-C [address] [facility] [place] [address] 04/03/2023 12:37 PM EST Hospital Encounter OR [facility], OPERATING ROOM [facility] [address] [facility] [place] [address] Luis Manuel Sandy MD [address] [place] [address] 04/03/2023 12:37 PM EST - 04/03/2023 2:27 PM EST Surgery OR [facility], OPERATING ROOM [facility] [address] [place] [address] Luis Manuel Sandy MD [address] [place], [place] [id number] CYSTOURETHROSCOPY URETEROSCOPY WITH LITHOTRIPSY AND STENT INSERTION 04/13/2023 2:00 PM EST [facility] [address] [place] [address] [facility] [address] [place] [address] 04/20/2023 1:00 PM EST Appointment Radiology, [place] [address] [facility] [facility] [place] [address] 04/20/2023 1:45 PM EST Procedure Only Urology, [place] [address] [place] [address] Luis Manuel Sandy MD [address] [place] [address] 05/16/2023 1:30 PM EDT Cardiac Studies Cardiac Studies, [facility] 132 [place] [address] 05/19/2023 1:30 PM EDT Office Visit Cardiology, [facility] 132 [place] [address] Lila Burger CRNP [address] [place] [phone] 05/24/2023 2:00 PM EDT Office Visit Podiatry [facility] 132 [place] [address] Eveline Layne DPM [address] [place] [address] 06/07/2023 2:30 PM EDT Office Visit Dermatology [facility] [address] [place] [address] Cyril Borges MD [address] [place] [address] 06/14/2023 1:00 PM EDT Office Visit Cosmetic Surgery & Aesthetics [facility] [address] [place] [address] Conor Venegas PA-C [address] [place] [address] 06/19/2023 1:30 PM EDT Nurse Only Rheumatology [address] [address] Pf, Nurse Rheum [facility] [place], [place] [address] 06/27/2023 1:20 PM EDT Office Visit Family Practice [facility] [address] [facility] [address] Nikunj Plascencia MD [address] [facility] [place] [address] 07/03/2023 2:00 PM EDT [facility] 200 [facility] [place], [place] [address] Geovanni Linder MD 200 [facility] [place] [address] 07/05/2023 1:00 PM EDT Appointment Radiology, [address] [address] 07/05/2023 2:15 PM EDT Office Visit Urology, [place] [address] [place] [address] Luis Manuel Sandy MD [address] [place] [address] 12/20/2023 2:30 PM EDT Imaging Radiology, [address] [place] [address] 12/20/2023 3:20 PM EDT Office Visit Rheumatology [address] [place] [address] John Yoder MD [address] [place] [address] [place] [address] Scheduled Procedures Name Priority Associated Diagnoses Date/Ti [...] D LEVEL ONCE IN A LIFETIME-USE SMARTSET# 74905 Completed 06/10/2022, 05/28/2021, 06/20/2020, Additional history exists [...] encounter Medical Devices Implanted Type Area Manager Health Device Identifier Shelf Expiration Date Model / Serial / Lot Kyphon Hv-R Bone Cement Implanted:Qty: 1 on 08/17/2016 by Michael Smith MD at OR [facility] N/A: Spine Thoracic 03/19/2019 C01A / [id number] / [id number] Persona The Personalized Knee System Vivacit-E Highly Crosslinked Polyethylene Articular Surface Medial Congruent Implanted:Qty: 1 on 06/04/2018 by Duc Kimble MD at OR [facility] Right: Knee [employer] 11/19/2022 [id number] 07-12 / / [id number] Device Watchman Flx 27mm - [id number] Implanted:Qty: 1 on 10/06/2022 by Austin Penaloza MD at CARDIAC LABS [facility] [employer] : INTRV CARD [id number] 08/07/2025 [id number] / / [id number] documented as of this encounter Visit Diagnoses Diagnosis Sinus tarsitis of left foot- Primary Plantar fasciitis, right Plantar fascial fibromatosis Pain in both feet Pain in limb Stage 3a chronic kidney disease (HCC) Pre-ulcerative calluses Corns and callosities Renal calculi Calculus of kidney documented in this encounter Administered Medications Inactive Administered Medications - up to 3 most recent administrations Medication Order MAR Action Action Date Dose Rate Site bupivacaine (Sensorcaine) 0.5 % inj 2.5 mg 2.5 mg (0.5 mL), Injection, ONCE, On Mon02/22/23 at 1645, For 1 dose Given 02/22/2023 4:26 PM EST 2.5 mg Foot Right bupivacaine (Sensorcaine) 0.5 % inj 2.5 mg 2.5 mg (0.5 mL), Injection, ONCE, On Mon02/22/23 at 1645, For 1 dose Given 02/22/2023 4:26 PM EST 2.5 mg Foot Left dexAMETHasone Sodium Phosphate (Decadron) 4 MG/ML inj 2 mg 2 mg, Intramuscular, ONCE, On Mon02/22/23 at 1645, For 1 dose, Protect from Light Given 02/22/2023 4:31 PM EST 2 mg Foot Right dexAMETHasone Sodium Phosphate (Decadron) 4 MG/ML inj 2 mg 2 mg, Intra-Articular, ONCE, On Mon02/22/23 at 1645, For 1 dose, Protect from Light Given 02/22/2023 4:31 PM EST 2 mg Foot Left methylPREDNISolone acetate (Depo-Medrol) 40 MG/ML inj 20 mg 20 mg, Intramuscular, ONCE, On Mon02/22/23 at 1645, For 1 dose Given 02/22/2023 4:31 PM EST 20 mg Foot Left methylPREDNISolone acetate (Depo-Medrol) 40 MG/ML inj 20 mg 20 mg, Intra-Articular, ONCE, On Mon02/22/23 at 1645, For 1 dose Given 02/22/2023 4:32 PM EST 20 mg Foot Right documented in this encounter Advance Directives Latest [...] the patient have Health Care Power of Net Development Manager? No Care Teams Patient Coordinator Front Desk Relationship Specialty Start Date End Date Nikunj Plascencia MD [address] [place] [address] PCP - General Family Medicine 10/31/19 documented as of this encounter
--- OUTSIDE RECORDS SUMMARY | 2023-07-29 04:14 | External Medical Summary | Summary of Care ---
Author Name Unknown Organization [facility] Address [address] [place] [address] Phone [phone] Care Team Providers Care Varnish Dipper Name Role Phone Nikunj Plascencia MD Primary Care Provider [phone] Encounter Details Date Type Department Care Team (Late st Contact Info) Description 02/09/2023 Telephone Orthopaedics [facility] [address] [place] [address] Alpesh De León, [address] [place] [address] Allergies Active Allergy Reactions Criticality Noted Date Comments Egg Shells 06/16/2018 Other reaction(s): GI SYMPTOMS Egg Yolk High 11/29/2019 Other reaction(s): GI upset Ibuprofen Other (Please comment) 07/30/2010 Stomach upset Morphine 08/28/2021 Other reaction(s): LEGS SWELL documented as of this encounter (statuses as of 02/09/2023) Medications Medication Sig Dispensed Refills Start Date [...] Particles (Cymbalta) 0 06/20/2022 Active Saline Nasal [place] 0.65 % Nasal Solution ([place]) Q6H 0 06/06/2022 Active Clobetasol Propionate 0.05 [...] as of this encounter (statuses as of 02/09/2023) Active Problems Problem Noted Date Diagnosed Date Food insecurity 01/02/2023 Overview: Per [facility] Protocol Presence of Watchman left atrial appendage closu re device 12/19/2022 PAF (paroxysmal atrial fibrillation) 08/17/2022 Overview: Added automatically from request for surgery [id number] Nasal septal perforation 06/13/2022 Overview: Per ENT [...] as of this encounter (statuses as of 02/09/2023) Resolved Problems Problem Noted Date Diagnosed Date [...] 140/90 12/12/201111/09 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 07/30/2018 Overview: [place] palsy Tinea 06/27/2011 07/30/2018 Mixed urge and stress incontinence 12/15/2008 10/08/2019 ADVANCE DIRECTIVE INFORMATION 06/17/2004 10/08/2019 documented as of this encounter (statuses as of 02/09/2023) Immunizations Name Administration Dates Next Due COVID-19 mRNA, LNP-s, No Pre serve, 2-Dose Series (Spacious) 10/05/2020,09/14/2020 Covid-19, Mrna, Lnp-s, Pf, B ivalent, 30 Mcg, IM, 12 yrs and above (Spacious) 05/26/2022 Pneumococcal Conjugate Vacc, 13 Valent (Prevnar) [...] encounter Miscellaneous Notes * Telephone Encounter - Linda Ramos OSA - 02/09/2023 11:45 AM EST I called this patient from Dr. De León wait list for surgery to see if patient was still interested. Patient was to work on weight loss goals as well. No answer. Left message for call back. documented in this encounter Plan of Treatment Upcoming Encounters Date Type Department Care Team (Latest Contact Info) Description 02/15/2023 3:00 PM EST Office Visit Dermatology [facility] [address] [place] [address] Cyril Borges MD 16 [place] [address] 02/22/2023 3:00 PM EST Office Visit Podiatry [facility] 132 [facility] [place] [address] Eveline Layne DPM 400 [facility] [place] [address] 03/21/2023 11:00 AM EST Office Visit Urology [place] [address] [place] [address] Maria Elena Das PA-C [address] [place] [address] 04/03/2023 12:37 PM EST Hospital Encounter [facility], OPERATING ROOM [facility] [address] [place] [address] Luis Manuel Sandy MD [address] [place] [address] 04/03/2023 12:37 PM EST - 04/03/2023 2:27 PM EST Surgery [facility], OPERATING ROOM [facility] [address] [place] [address] Luis Manuel Sandy MD [address], [place] [phone] CYSTOURETHROSCOPY URETEROSCOPY WITH LITHOTRIPSY AND STENT INSERTION 04/03/2023 3:30 PM EST Office Visit Cardiology, [facility] 132 [place] [address] Fernando Torres, 132 [place] [address] 04/13/2023 2:00 PM EST Office Visit Pharmacy, [facility] 132 [place] [address] [facility] 132 [place] [address] 04/20/2023 1:00 PM EST Appointment Radiology, [place] [address] [place] [address] 04/20/2023 1:45 PM EST Procedure Only Urology, [place] [address], [place] [phone] Luis Manuel Sandy MD [address], [place] [phone] 06/14/2023 1:00 PM EDT Office Visit Cosmetic Surgery & Aesthetics [facility] [address] [place] [address] Conor Venegas PA-C [address] [place] [address] 06/19/2023 1:30 PM EDT Nurse Only Rheumatology [address] [place] [address] Pf, Nurse Rheum [address] [place] [address] [place] [address] 06/27/2023 1:20 PM EDT Office Visit Family Practice [facility] 132 [facility] [address] Nikunj Plascencia MD 132 [place] [address] 07/03/2023 2:00 PM EDT Office Visit Nephrology, [facility] 200 [facility] [place] [address] Geovanni Linder MD 200 [facility] [place] [address] 07/05/2023 1:00 PM EDT Appointment Radiology, [place] [address] [place] [address] 07/05/2023 2:15 PM EDT Office Visit Urology, [place] [address] [place] [address] Luis Manuel Sandy MD [address] [place] [address] 12/20/2023 2:30 PM EDT Imaging Radiology, [address] [place] [address] 12/20/2023 3:20 PM EDT Office Visit Rheumatology [address] [place] [address] John Yoder MD [address] [place] [address] [place] [address] Scheduled Procedures Name Priority Associated Diagnoses Date/Ti [...] D LEVEL ONCE IN A LIFETIME-USE SMARTSET# 41538 Completed 06/10/2022, 05/28/2021, 06/20/2020, Additional history exists [...] this encounter Medical Devices Implanted Type Area Furniture Associate Device Identifier Shelf Expiration Date Model / Serial / Lot Kyphon Hv-R Bone Cement Implanted:Qty: 1 on 08/17/2016 by Michael Smith MD at OR [facility] N/A: Spine Thoracic 03/19/2019 C01A / C01A / [id number] Persona The Personalized Knee System Vivacit-E Highly Crosslinked Polyethylene Articular Surface Medial Congruent Implanted:Qty: 1 on 06/04/2018 by Duc Kimble MD at OR [facility] Right: Knee [employer] 11/19/2022 42-5221-0 [id number] Device Watchman Flx 27mm - [id number] Implanted:Qty: 1 on 10/06/2022 by Austin Penaloza MD at [facility]AC LABS [facility] [employer] : INTRV CARD [id number] 08/07/2025 [id number] / / [id number] documented as of this encounter Advance Directives [...] the patient have Health Care Power of Billposting Supervisor? No Care Teams Varnish Dipper Relationship Specialty Start Date End Date Nikunj Plascencia MD [address] [place] [address] PCP - General Family Medicine 10/31/19 documented as of this encounter
--- OUTSIDE RECORDS SUMMARY | 2023-07-29 04:14 | External Medical Summary | Summary of Care ---
Author Name Unknown Organization [facility] Address [address] [place] [address] Phone [phone] Care Team Providers Care Detective Homicide Squad Name Role Phone Nikunj Plascencia MD Primary Care Provider [phone] Encounter Details Date Type Department Care Team ([facility] st Contact Info) Description 02/27/2023 Specialty Pharmacy [facility], [address] [place] [address] Medication, [facility], [address] [address] Allergies Active Allergy Reactions Criticality Noted Date Comments Egg Shells 06/16/2018 Other reaction(s): GI SYMPTOMS Egg Yolk High 11/29/2019 Other reaction(s): GI upset Ibuprofen Other (Please comment) 07/30/2010 Stomach upset Morphine 08/28/2021 Other reaction(s): LEGS SWELL documented as of this encounter (statuses as of 02/27/2023) Medications Medication Sig Dispensed Refills Start Date [...] Particles (Cymbalta) 0 06/20/2022 Active Saline Nasal [place] 0.65 % Nasal Solution (Gregory) Q6H 0 06/06/2022 Active Clobetasol Propionate 0.05 [...] as of this encounter (statuses as of 02/27/2023) Active Problems Problem Noted Date Diagnosed Date Food insecurity 01/02/2023 Overview: Per [facility] Protocol Presence of Watchman left atrial appendage closu re device 12/19/2022 PAF (paroxysmal atrial fibrillation) 08/17/2022 Overview: Added automatically from request for surgery [id number] Nasal septal perforation 06/13/2022 Overview: Per ENT [...] as of this encounter (statuses as of 02/27/2023) Resolved Problems Problem Noted Date Diagnosed Date [...] 140/90 12/12/201111/09 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 07/30/2018 Overview: [place] palsy Tinea 06/27/2011 07/30/2018 Mixed urge and stress incontinence 12/15/2008 10/08/2019 ADVANCE DIRECTIVE INFORMATION 06/17/2004 10/08/2019 documented as of this encounter (statuses as of 02/27/2023) Immunizations Name Administration Dates Next Due COVID-19 mRNA, LNP-s, No Pre serve, 2-Dose Series (Crowdfunder) 10/05/2020,09/14/2020 Covid-19, Mrna, Lnp-s, Pf, B ivalent, [...] as of this encounter Progress Notes * Laura Guthrie CPhT - 02/27/2023 2:39 PM EST Prescribed medication: Medication: Dupixent Shipment date: 03/09 Delivery method: Specialty Mail Location Medication Delivered too? Home Address: [address] [place] [address] Laura Guthrie CPhT [facility] 02/27/2023,2:39 PM documented in this encounter Plan of Treatment Upcoming Encounters Date Type Department Care Team (Latest Contact Info) Description 03/07/2023 2:00 PM EST Office Visit [facility], [facility] [address] [place] [address] Alpesh De León, [address] [facility] [place] [facility] [place] [address] 03/21/2023 11:00 AM EST Office Visit Urology, [place] [address] [place] [address] Maria Elena Das PA-C [address] [place] [address] 04/03/2023 12:37 PM EST Hospital Encounter [facility], OPERATING ROOM [facility] [address] [place] [address] Luis Manuel Sandy MD [address] [place] [address] 04/03/2023 12:37 PM EST - 04/03/2023 2:27 PM EST Surgery [facility], OPERATING ROOM [facility], [facility] [address] [place] [address] Luis Manuel Sandy MD [address] [place] [address] CYSTOURETHROSCOPY URETEROSCOPY WITH LITHOTRIPSY AND STENT INSERTION 04/13/2023 2:00 PM EST Office Visit Pharmacy, [facility] [address] [place] [address] [facility] [address] [place] [address] 04/20/2023 1:00 PM EST Appointment Radiology, [place] [address] [place] [phone] 04/20/2023 1:45 PM EST Procedure Only Urology, [place] [address] [place] [address] Luis Manuel Sandy MD [address] [place] [address] 05/16/2023 1:30 PM EDT Cardiac Studies Cardiac Studies, [facility] [address] [place] [address] 05/19/2023 1:30 PM EDT Office Visit Cardiology, [address] [address] Lila Burger CRNP [address] [place] [address] 05/24/2023 2:00 PM EDT Office Visit Podiatry [facility] [address] [place] [address] Eveline Layne DPM [address] [place] [address] 06/07/2023 2:30 PM EDT Office Visit Dermatology [facility] [address] [place] [address] Cyril Borges MD 16 [place] [address] 06/14/2023 1:00 PM EDT Office Visit Cosmetic Surgery & Aesthetics [facility] [address] [place] [address] Conor Venegas PA-C [address] [place], [place] [address] 06/19/2023 1:30 PM EDT Nurse Only Rheumatology [address] [place] [address] Pf, Nurse Rheum [facility] [place] [address] 06/27/2023 1:20 PM EDT Office Visit Family Practice [facility] [address] [place] [address] Nikunj Plascencia MD 132 [place] [address] 07/03/2023 2:00 PM EDT Office Visit Nephrology, [facility] 200 [facility] [place] [address] Geovanni Linder MD 200 [facility] [place] [address] 07/05/2023 1:00 PM EDT Appointment Radiology, [place] [address] [place] [address] 07/05/2023 2:15 PM EDT Office Visit Urology, [place] [address] [place], [place] [phone] Luis Manuel Sandy MD [address] [place], [place] [phone] 12/20/2023 2:30 PM EDT Imaging Radiology, [address] [place] [address] 12/20/2023 3:20 PM EDT Office Visit Rheumatology [facility] [address] [place] [address] John Yoder MD [address] [facility] [place] [address] Scheduled Procedures Name Priority Associated Diagnoses Date/Ti [...] D LEVEL ONCE IN A LIFETIME-USE SMARTSET# 64670 Completed 06/10/2022, 05/28/2021, 06/20/2020, Additional history exists [...] this encounter Medical Devices Implanted Type Area Dairy Nutrition Specialist Device Identifier Shelf Expiration Date Model / Serial / Lot Kyphon Hv-R Bone Cement Implanted:Qty: 1 on 08/17/2016 by Michael Smith MD at OR [facility] N/A: Spine Thoracic 03/19/2019 C01A / C01A / [id number] Persona The Personalized Knee System Vivacit-E Highly Crosslinked Polyethylene Articular Surface Medial Congruent Implanted:Qty: 1 on 06/04/2018 by Duc Kimble MD at OR [facility] Right: Knee [employer] 11/19/2022 [id number] 08-31 / / [id number] Device Watchman Flx 27mm - [id number] Implanted:Qty: 1 on 10/06/2022 by Austin Penaloza MD at [facility] Ti Knight : INTRV CARD [id number] 08/07/2025 [id number] / / [id number] documented as of this encounter Advance Directives [...] the patient have Health Care Power of Heater Helper? No Care Teams Detective Homicide Squad Relationship Specialty Start Date End Date Nikunj Plascencia MD [address] [place] [address] PCP - General Family Medicine 10/31/19 documented as of this encounter
--- OUTSIDE RECORDS SUMMARY | 2023-07-29 04:14 | External Medical Summary | Summary of Care ---
Author Name Unknown Organization [facility] Address [address] [place] [address] Phone [phone] Care Team Providers Care Plow Holder Name Role Phone Nikunj Plascencia MD Primary Care Provider [phone] Encounter Details Date Type Department Care Team (Late st Contact Info) Description 02/09/2023 Telephone Orthopaedics [facility] [address] [place] [address] Alpesh De León, [address] [place] [address] Allergies Active Allergy Reactions Criticality Noted Date [...] Particles (Cymbalta) 0 06/20/2022 Active Saline Nasal [place] 0.65 % Nasal Solution ([place]) Q6H 0 06/06/2022 Active Clobetasol Propionate 0.05 [...] Overview: Added automatically from request for surgery [id number] Nasal septal perforation 06/13/2022 Overview: Per ENT [...] 140/90 12/12/201111/09 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 07/30/2018 Overview: [place] palsy Tinea 06/27/2011 07/30/2018 Mixed urge and stress incontinence 12/15/2008 10/08/2019 ADVANCE DIRECTIVE INFORMATION 06/17/2004 10/08/2019 documented as of this encounter (statuses as of 02/09/2023) Immunizations Name Administration Dates Next Due COVID-19 mRNA, LNP-s, No Pre serve, 2-Dose Series (Therasis) 10/05/2020,09/14/2020 Covid-19, Mrna, Lnp-s, Pf, B ivalent, 30 Mcg, IM, 12 yrs and above (Therasis) 05/26/2022 Pneumococcal Conjugate Vacc, 13 Valent (Prevnar) [...] Encounter - Linda Ramos OSA - 02/09/2023 12:03 PM EST Patient called back and would like to remain on waitlist for surgery * Telephone Encounter - Linda Ramos OSA [...] 02/15/2023 3:00 PM EST Office Visit Dermatology [facility] [address] [place] [address] Cyril Borges MD [address] [place] [address] 02/22/2023 3:00 PM EST Office Visit Podiatry [facility] 132 [facility] [place] [address] Eveline Layne DPM [address] [place] [address] [place] [id number] 03/21/2023 11:00 AM EST Office Visit Urology, [place] 100 [address] [facility] [place], [place] [address] Maria Elena Das PA-C [address] [facility] [place] [address] 04/03/2023 12:37 PM EST Hospital Encounter [place] [facility], OPERATING ROOM [facility], [facility] [address] [facility] [place] [address] Luis Manuel Sandy MD 100 [address] [facility] [place] [address] 04/03/2023 12:37 PM EST - 04/03/2023 2:27 PM EST Surgery OR [facility], OPERATING ROOM [facility], [facility] [address] [facility] [place] [address] Luis Manuel Sandy MD [address] [facility] [place] [id number] CYSTOURETHROSCOPY URETEROSCOPY WITH LITHOTRIPSY AND STENT INSERTION 04/03/2023 3:30 PM EST Office Visit Cardiology, [facility] [place] [address] Fernando Torres O, DO [facility] [place] [address] 04/13/2023 2:00 PM EST Office Visit Pharmacy, [facility] [place] [address] [facility] 132 [facility] [place] [address] 04/20/2023 1:00 PM EST Appointment [facility]iology, [place] [facility] [place] [phone] 04/20/2023 1:45 PM EST Procedure Only Urology, [place] [address] [facility] [place] [id number] Luis Manuel Sandy MD [address] [place] [address] 06/14/2023 1:00 PM EDT Office Visit Cosmetic Surgery & Aesthetics [facility] 16 [place] [address] Conor Venegas PA-C [address] [place] [address] 06/19/2023 1:30 PM EDT Nurse Only Rheumatology [address] [place] [address] Pf, Nurse Rheum [address] [place] [address] [place] [address] 06/27/2023 1:20 PM EDT Office Visit Family Practice [facility] [address] [place] [address] Nikunj Plascencia MD 132 [place] [address] 07/03/2023 2:00 PM EDT Office Visit Nephrology, [facility] 200 [facility] [place] [address] Geovanni Linder MD 200 [facility] [place] [address] 07/05/2023 1:00 PM EDT Appointment Radiology, [place] [address] [place] [address] 07/05/2023 2:15 PM EDT Office Visit Urology, [place] [address] [place] [address] Luis Manuel Sandy MD [address] [place] [address] 12/20/2023 2:30 PM EDT Imaging Radiology, [address] [place] [address] 12/20/2023 3:20 PM EDT Office Visit Rheumatology [facility] [place] [address] [place] [address] John Yoder MD [address] [place] [address] Scheduled Procedures Name Priority Associated Diagnoses Date/Ti [...] D LEVEL ONCE IN A LIFETIME-USE SMARTSET# 47569 Completed 06/10/2022, 05/28/2021, 06/20/2020, Additional history exists [...] this encounter Medical Devices Implanted Type Area Small Business Director Device Identifier Shelf Expiration Date Model / Serial / Lot Kyphon Hv-R Bone Cement Implanted:Qty: 1 on 08/17/2016 by Michael Smith MD at OR [facility] N/A: Spine Thoracic 03/19/2019 C01A / C01A / [id number] Persona The Personalized Knee System Vivacit-E Highly Crosslinked Polyethylene Articular Surface Medial Congruent Implanted:Qty: 1 on 06/04/2018 by Duc Kimble MD at OR [facility] Right: Knee [employer] 11/19/2022 [id number] - [id number] Device Watchman Flx 27mm - [id number] Implanted:Qty: 1 on 10/06/2022 by Austin Penaloza MD at CARDIAC LABS [facility] Ethonova : INTRV CARD [id number] 08/07/2025 [id number] / / [id number] documented as of this encounter Advance Directives [...] the patient have Health Care Power of Foil Wrapper? No Care Teams Plow Holder Relationship Specialty Start Date End Date Nikunj Plascencia MD [address] [place] [address] PCP - General Family Medicine 10/31/19 documented as of this encounter
--- OUTSIDE RECORDS SUMMARY | 2023-07-29 04:15 | External Medical Summary | Summary of Care ---
Author Name Unknown Organization [facility] Address [address] [place] [address] Phone [phone] Care Team Providers Care Network Support Specialist Name Role Phone Nikunj Plascencia MD Primary Care Provider [phone] [phone] Reason for Visit * Reason Comments Medication Refill Encounter Details Date Type Department Care Team (Late st Contact Info) Description 01/30/2023 Refill Dermatology [facility] [address] [place] [address] Cyril Borges MD [address] [place] [address] Allergies Active Allergy Reactions Criticality Noted Date Comments Egg Shells 06/16/2018 Other reaction(s): GI SYMPTOMS Egg Yolk High 11/29/2019 Other reaction(s): GI upset Ibuprofen Other (Please comment) 07/30/2010 Stomach upset Morphine 08/28/2021 Other reaction(s): LEGS SWELL documented as of this encounter (statuses as of 01/31/2023) Medications Medication Sig Dispensed Refills Start Date [...] 11/27/2021 Active Betamethasone Dipropionate 0.05 % External OintmentIndications: [...] Particles (Cymbalta) 0 06/20/2022 Active Saline Nasal [place] 0.65 % Nasal Solution ([place]) Q6H 0 06/06/2022 Active Clobetasol Propionate 0.05 [...] 2 weeks. 4 mL 4 01/31/2023 Active Dupixent 300 MG/2ML Subcutaneous Solution Pen-injector (Dupilumab) Inject one pen under the skin every 2 weeks. 4 mL 4 08/03/2022 3 Discontinue d(Refill) Hospital, Clinic, or Other Facility Administered Medication Ordered Dose Route Frequency Start Date End Date Status atropine sulfate inj 0.4 mgIndications:Chest pain, unspecified type 0.4 mg IV PUSH PRN 01/29/2021 Active documented as of this encounter (statuses as of 01/31/2023) Active Problems Problem Noted Date Diagnosed Date Food insecurity 01/02/2023 Overview: Per [facility] Protocol Presence of Watchman left atrial appendage closu re device 12/19/2022 PAF (paroxysmal atrial fibrillation) 08/17/2022 Overview: Added automatically from request for surgery [id number] Nasal septal perforation 06/13/2022 Overview: Per ENT [...] as of this encounter (statuses as of 01/31/2023) Resolved Problems Problem Noted Date Diagnosed Date [...] 140/90 12/12/201111/09 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 07/30/2018 Overview: [place] palsy Tinea 06/27/2011 07/30/2018 Mixed urge and stress incontinence 12/15/2008 10/08/2019 ADVANCE DIRECTIVE INFORMATION 06/17/2004 10/08/2019 documented as of this encounter (statuses as of 01/31/2023) Immunizations Name Administration Dates Next Due COVID-19 mRNA, LNP-s, No Pre serve, 2-Dose Series ([employer]) 10/05/2020,09/14/2020 Covid-19, Mrna, Lnp-s, Pf, B ivalent, [...] Telephone Encounter - Cyril Borges MD - 01/31/2023 2:02 PM EST Signed Prescriptions: Disp Refills Dupixent 300 MG/2ML Subcutaneous Solution *4 mL 4 Sig: Inject one pen under the skin every 2 weeks. Authorizing Provider: CYRIL BORGES * Telephone Encounter - Maricurz Ramos OSA - 01/30/2023 4:05 PM ESTPending Prescriptions: Disp Refills Dupixent 300 MG/2ML Subcutaneous Solution *4 mL 4 Sig: Inject one pen under the skin every 2 weeks. documented in this encounter Plan of Treatment Upcoming Encounters Date Type Department Care Team (Late st Contact Info) Description 02/01/2023 11:00 AM EST Office Visit Urology, [place] [address] [place], [place] [phone] Marcus Kirk PA-C [address] [place], [place] [phone] 02/15/2023 3:00 PM EST Office Visit Dermatology [facility] [address] [place], [place] [phone] Cyril Borges MD [address] [place], [place] [phone] 02/22/2023 3:00 PM EST Office Visit Podiatry [facility] 132 [place] [address] Eveline Layne, [address] [address] 04/03/2023 3:30 PM EST Office Visit Cardiology, [facility] 132 [place] [address] Fernando Torres O, DO [address] [facility] [place] [address] 04/13/2023 2:00 PM EST Office Visit Pharmacy, [facility] 132 [facility] [place] [address] [facility] 132 [facility] [place] [address] 06/14/2023 1:00 PM EDT Office Visit Cosmetic Surgery & Aesthetics [facility] [address] [place], [place] [phone] Conor Venegas PA-C [address] [place], [place] [phone] 06/19/2023 1:30 PM EDT Nurse Only Rheumatology [address] [place] [address] Pf, Nurse Rheum [address] [place] [address] [place] [address] 06/27/2023 1:20 PM EDT Office Visit Family Practice [facility] [address] [place] [address] Nikunj Plascencia MD 132 [place] [address] 07/03/2023 2:00 PM EDT Office Visit Nephrology, [facility] 200 [facility] [address] Geovanni Linder MD 200 [facility] [place] [address] 12/20/2023 2:30 PM EDT Imaging Radiology, [address] [place] [address] 12/20/2023 3:20 PM EDT Office Visit Rheumatology [address] [place] [address] John Yoder MD [address] [place] [address] [place] [address] Scheduled Procedures Name Priority Associated Diagnoses Date/Ti in ROBOTIC ARTHROPLASTY KNEE TOTAL Knee osteoarthritis COLONOSCOPY [...] Additional history exists Depression Screening 12/09/2022 12/09/2021 DXA Scan 12/01/2023 11/30/2021, 08/21, 08/29/2017, Additional history exists GFR 12/08/2023 12/07/2022, 09/20, 09/07/2022, Additional history exists Albumin/Creatinine Ratio 06/13/2025 06/13/2022, 02/20 Diabetes Screening 12/07/2025 12/07/2022, 0 10/06/2022, 09/07/2022, [...] D LEVEL ONCE IN A LIFETIME-USE SMARTSET# [id number] Completed 06/10/2022, 05/28/2021, 06/20/2020, Additional history exists [...] this encounter Medical Devices Implanted Type Area Veterinary Poultry Inspector Device Identifier Shelf Expiration Date Model / Serial / Lot Kyphon Hv-R Bone Cement Implanted:Qty: 1 on 08/17/2016 by Michael Smith MD at [place] [facility] N/A: Spine Thoracic 03/19/2019 C01A / C01A / [id number] Persona The Personalized Knee System Vivacit-E Highly Crosslinked Polyethylene Articular Surface Medial Congruent Implanted:Qty: 1 on 06/04/2018 by Duc Kimble MD at OR [facility] Right: Knee [employer] 11/19/2022 42-5221-0 07-12 / [id number] Device Watchman Flx 27mm - [id number] Implanted:Qty: 1 on 10/06/2022 by Austin Penaloza MD at [facility]ARDIAC LABS [facility] [employer] My Game : INTRV CARD [id number] 08/07/2025 [id number] / / [id number] documented as of this encounter Advance Directives [...] the patient have Health Care Power of Inside Horticultural Specialty Grower? No Care Teams Network Support Specialist Relationship Specialty Start Date End Date Nikunj Plascencia MD [address] [place] [address] PCP - General Family Medicine 10/31/19 documented as of this encounter
--- OUTSIDE RECORDS SUMMARY | 2023-07-29 04:15 | External Medical Summary | Summary of Care ---
Author Name Unknown Organization [facility] Address [address] [place] [address] Phone [phone] Care Team Providers Care Communications Professor Name Role Phone Nikunj Plascencia MD Primary Care Provider [phone] Reason for Visit * Reason Onset Date Comments Precert Approved 01/31/2023 Dupixent Encounter Details Date Type Department Care Team (Late st Contact Info) Description 01/31/2023 Telephone Dermatology [facility] [address] [place] [address] Cyril Borges MD 16 [place] [address] Precert Approved (Dupixent /) Allergies Active Allergy Reactions Criticality Noted Date Comments Egg Shells 06/16/2018 Other reaction(s): GI SYMPTOMS Egg Yolk High 11/29/2019 Other reaction(s): GI upset Ibuprofen Other (Please comment) 07/30/2010 Stomach upset Morphine 08/28/2021 Other reaction(s): LEGS SWELL documented as of this encounter (statuses as of 02/03/2023) Medications Medication Sig Dispensed Refills Start Date [...] Particles (Cymbalta) 0 06/20/2022 Active Saline Nasal [place] 0.65 % Nasal Solution ([place]) Q6H 0 06/06/2022 Active Clobetasol Propionate 0.05 [...] as of this encounter (statuses as of 02/03/2023) Active Problems Problem Noted Date Diagnosed Date Food insecurity 01/02/2023 Overview: Per [facility] Protocol Presence of Watchman left atrial appendage closu re device 12/19/2022 PAF (paroxysmal atrial fibrillation) 08/17/2022 Overview: Added automatically from request for surgery [id number] Nasal septal perforation 06/13/2022 Overview: Per ENT [...] as of this encounter (statuses as of 02/03/2023) Resolved Problems Problem Noted Date Diagnosed Date [...] 140/90 12/12/201111/09 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 07/30/2018 Overview: [place] palsy Tinea 06/27/2011 07/30/2018 Mixed urge and stress incontinence 12/15/2008 10/08/2019 ADVANCE DIRECTIVE INFORMATION 06/17/2004 10/08/2019 documented as of this encounter (statuses as of 02/03/2023) Immunizations Name Administration Dates Next Due COVID-19 mRNA, LNP-s, No Pre serve, 2-Dose Series (N[employer]) 10/05/2020,09/14/2020 Covid-19, Mrna, Lnp-s, Pf, B ivalent, [...] encounter Miscellaneous Notes * Telephone Encounter - Danna Castro CPhT - 01/31/2023 2:15 PM EST Auth type: [facility] Prior authorization is needed for dupixent through [employer] insurance. ID: [id number] BIN:[id number] PCN:[id number] [facility] 02/02 Thank you. Danna Castro CPhT [facility] 01/31/2023,2:17 PM documented in this encounter Plan of Treatment Upcoming Encounters Date Type Department Care Team (Latest Contact Info) Description 02/15/2023 3:00 PM EST Office Visit Dermatology [place] [facility] [address] [place] [address] Cyril Borges MD [address] [place] [address] 02/22/2023 3:00 PM EST Office Visit Podiatry [facility] 132 [facility] [place] [address] Eveline Layne DPM [address] [place] [address] [place] [address] 03/21/2023 11:00 AM EST Office Visit Urology, [place] [address] [place] [facility] [place] [address] Maria Elena Das PA-C [address] [place] [facility] [place] [address] 04/03/2023 12:37 PM EST Hospital Encounter [place] [facility] OPERATING ROOM [facility], [facility] [address] [place] [facility] [place] [address] Luis Manuel Sandy MD [address] [facility], [place] [address] 04/03/2023 12:37 PM EST - 04/03/2023 2:27 PM EST Surgery [facility] OPERATING RO[facility] [address] [place] [facility] [place] [address] Luis Manuel Sandy MD [address] [place], [place] [phone] CYSTOURETHROSCOPY URETEROSCOPY WITH LITHOTRIPSY AND STENT INSERTION 04/03/2023 3:30 PM EST Office Visit Cardiology, [facility] 132 [place] [address] Fernando Torres O, DO 132 [facility] [place] [address] 04/13/2023 2:00 PM EST Office Visit Pharmacy, [facility] [address] [facility] [place] [address] [facility] 132 [facility] [place] [address] 04/20/2023 1:00 PM EST Appointment Radiology, [place] [address] [place] [id number] 04/20/2023 1:45 PM EST Procedure Only Urology, [place] [address] [place], [place] [address] Luis Manuel Sandy MD [address] [place] [address] 06/14/2023 1:00 PM EDT Office Visit Cosmetic Surgery & Aesthetics [facility] [address] [place] [address] Conor Venegas PA-C [address] [place] [address] 06/19/2023 1:30 PM EDT Nurse Only Rheumatology [place] [address] [place] [address] Pf, Nurse Rheum [address] [place] [address] [place] [address] 06/27/2023 1:20 PM EDT Office Visit Family Practice [facility] [address] [place] [address] Nikunj Plascencia MD 132 [place] [address] 07/03/2023 2:00 PM EDT Office Visit Nephrology, [facility] 200 [facility] [address] Geovanni Linder MD 200 [facility] [address] 07/05/2023 1:00 PM EDT Appointment Radiology, [place] [address] [place] [address] 07/05/2023 2:15 PM EDT Office Visit Urology, [place] [address] [place] [address] Luis Manuel Sandy MD [address] [place], [place] [address] 12/20/2023 2:30 PM EDT Imaging Radiology, [address] [place] [address] 12/20/2023 3:20 PM EDT Office Visit Rheumatology [facility] [address] [place] [address] John Yoder MD [address] [place] [address] Scheduled Procedures Name Priority Associated Diagnoses Date/Ti [...] D LEVEL ONCE IN A LIFETIME-USE SMARTSET# [id number] Completed 06/10/2022, 05/28/2021, 06/20/2020, Additional history exists [...] this encounter Medical Devices Implanted Type Area Abrasive Grader Helper Device Identifier Shelf Expiration Date Model / Serial / Lot Kyphon Hv-R Bone Cement Implanted:Qty: 1 on 08/17/2016 by Michael Smith MD at OR [facility] N/A: Spine Thoracic 03/19/2019 C01A / C01A / [id number] Persona The Personalized Knee System Vivacit-E Highly Crosslinked Polyethylene Articular Surface Medial Congruent Implanted:Qty: 1 on 06/04/2018 by Duc Kimble MD at OR [facility] Right: Knee [employer] 11/19/2022 42-5221-0 - [id number] Device Watchman Flx 27mm - [id number] Implanted:Qty: 1 on 10/06/2022 by Austin Penaloza MD at [facility]ARD[facility] [employer] : INTRV CARD [id number] 08/07/2025 [id number] / / [id number] documented as of this encounter Advance Directives [...] the patient have Health Care Power of Questioned Documents Examiner? No Care Teams Communications Professor Relationship Specialty Start Date End Date Nikunj Plascencia MD [address] [place] [address] PCP - General Family Medicine 10/31/19 documented as of this encounter
--- OUTSIDE RECORDS SUMMARY | 2023-07-29 04:15 | External Medical Summary | Summary of Care ---
Author Name Unknown Organization [facility] Address [address] [place] [address] Phone [phone] Care Team Providers Care Ethnic Studies Professor Name Role Phone Nikunj Plascencia MD Primary Care Provider [phone] Reason for Visit * Reason Onset Date Comments Precert In Process 01/31/2023 13 [facility] Dup ixent Encounter Details Date Type Department Care Team (Late st Contact Info) Description 01/31/[address] [facility] [address] [place], [place] [phone] Cyril Borges MD 16 [place] [address] Precert In Process (13 [facility] Dupixent /) Allergies Active Allergy Reactions Criticality Noted Date Comments Egg Shells 06/16/2018 Other reaction(s): GI SYMPTOMS Egg Yolk High 11/29/2019 Other reaction(s): GI upset Ibuprofen Other (Please comment) 07/30/2010 Stomach upset Morphine 08/28/2021 Other reaction(s): LEGS SWELL documented as of this encounter (statuses as of 02/02/2023) Medications Medication Sig Dispensed Refills Start Date [...] 0 Active Folic Acid 800 MCG TabletIndications:Jaqueline gonzlaez osteoarthritis of right knee Take 1 Tab [...] Particles (Cymbalta) 0 06/20/2022 Active Saline Nasal [place] 0.65 % Nasal Solution ([place]) Q6H 0 06/06/2022 Active Clobetasol Propionate 0.05 [...] as of this encounter (statuses as of 02/02/2023) Active Problems Problem Noted Date Diagnosed Date Food insecurity 01/02/2023 Overview: Per [facility] Protocol Presence of Watchman left atrial appendage closu re device 12/19/2022 PAF (paroxysmal atrial fibrillation) 08/17/2022 Overview: Added automatically from request for surgery [id number] Nasal septal perforation 06/13/2022 Overview: Per ENT [...] as of this encounter (statuses as of 02/02/2023) Resolved Problems Problem Noted Date Diagnosed Date [...] 140/90 12/12/201111/09 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 07/30/2018 Overview: [place] palsy Tinea 06/27/2011 07/30/2018 Mixed urge and stress incontinence 12/15/2008 10/08/2019 ADVANCE DIRECTIVE INFORMATION 06/17/2004 10/08/2019 documented as of this encounter (statuses as of 02/02/2023) Immunizations Name Administration Dates Next Due COVID-19 mRNA, LNP-s, No Pre serve, 2-Dose Series ([email or web address]) 10/05/2020,09/14/2020 Covid-19, Mrna, Lnp-s, Pf, B ivalent, 30 Mcg, IM, 12 yrs and above ([email or web address]) 05/26/2022 Pneumococcal Conjugate Vacc, 13 Valent (Prevnar) [...] - 01/31/2023 2:15 PM EST Auth type: jax Prior authorization is needed for dupixent through [employer] insurance. ID: [id number] BIN:[id number] PCN:[id number] [facility] 02/02 Thank you. Danna Castro CPhT [facility] 01/31/2023,2:17 PM documented in this encounter Plan of Treatment Upcoming Encounters Date Type Department Care Team (Latest Contact Info) Description 02/15/2023 3:00 PM EST Office Visit Dermatology [place] [address] [place] [address] Cyril Borges MD [address] [place] [address] 02/22/2023 3:00 PM EST Office Visit Podiatry [facility] 132 [facility] [place] [address] Eveline Layne DPM [address] [place] [address] [place] [address] 03/21/2023 11:00 AM EST Office Visit Urology, [place] [address] [facility] [place] [address] Maria Elena Das PA-C [address] [facility] [place] [address] 04/03/2023 12:37 PM EST Hospital Encounter [place] [facility] [place], OPERATING ROOM [facility] [place], [facility] [address] [facility] [place] [address] Luis Manuel Sandy MD 100 [address] [facility], [place] [address] 04/03/2023 12:37 PM EST - 04/03/2023 2:27 PM EST Surgery OR [facility] [place], OPERATING ROOM [facility] [place], [facility] [address] [place] [place] [address] Luis Manuel Sandy MD [address] [place] [address] CYSTOURETHROSCOPY URETEROSCOPY WITH LITHOTRIPSY AND STENT INSERTION 04/03/2023 3:30 PM EST Office Visit Cardiology, [facility] 132 [address] [facility] [place] [address] Fernando Torres O, DO 132 [facility] [place] [address] 04/13/2023 2:00 PM EST Office Visit Pharmacy, [facility] 132 [facility] [place] [address] [facility] [place] [address] 04/20/2023 1:00 PM EST Appointment Radiology, [place] [address] [facility] [place] [id number] 04/20/2023 1:45 PM EST Procedure Only Urology, [place] [address] [facility] [place] [address] Luis Manuel Sandy MD [address] [place] [address] 06/14/2023 1:00 PM EDT Office Visit Cosmetic Surgery & Aesthetics [facility] [address] [place] [address] Conor Venegas PA-C [address] [place] [address] 06/19/2023 1:30 PM EDT Nurse Only Rheumatology [address] [place] [address] Pf, Nurse Rheum [address] [place] [address] [place] [address] 06/27/2023 1:20 PM EDT Office Visit Family Practice [facility] 132 [place] [address] Nikunj Plascencia MD 132 [place] [address] 07/03/2023 2:00 PM EDT Office Visit Nephrology, [facility] 200 [facility] [place] [address] Geovanni Linder MD 200 [place] [address] 07/05/2023 1:00 PM EDT Appointment Radiology, [place] [address] [place] [address] 07/05/2023 2:15 PM EDT Office Visit Urology, [place] [address] [place] [address] Luis Manuel Sandy MD [address] [place] [address] 12/20/2023 2:30 PM EDT Imaging Radiology, [address] [place] [address] 12/20/2023 3:20 PM EDT Office Visit Rheumatology [facility] [place] [address] [place] [address] John Yoder MD [address] [place] [address] Scheduled Procedures Name Priority Associated Diagnoses Date/Ti [...] D LEVEL ONCE IN A LIFETIME-USE SMARTSET# [id number] Completed 06/10/2022, 05/28/2021, 06/20/2020, Additional history exists [...] encounter Medical Devices Implanted Type Area Manager Client Service Device Identifier Shelf Expiration Date Model / Serial / Lot Kyphon Hv-R Bone Cement Implanted:Qty: 1 on 08/17/2016 by Michael Smith MD at OR [facility] [place] [place] N/A: Spine Thoracic 03/19/2019 C01A / C01A / [id number] Persona The Personalized Knee System Vivacit-E Highly Crosslinked Polyethylene Articular Surface Medial Congruent Implanted:Qty: 1 on 06/04/2018 by Duc Kimble MD at OR [facility] Right: Knee [employer] 11/19/2022 42-5221-0 - / / [id number] Device Watchman Flx 27mm - [id number] Implanted:Qty: 1 on 10/06/2022 by Austin Penaloza MD at CARDIAC LABS [facility] [place] [place] [employer] : INTRV CARD [id number] 08/07/2025 [id number] / / [id number] documented as of this encounter Advance Directives [...] Code 08/17/2016 12:34 PM 08/19/2016 5:28 PM Thi s order reflects the patients wishes and were consensually agreed upon. Question Answer Comments Discussion of Advance Directives occurred with: Patient Does the patient have a Living Will? No Does the patient have Health Care Power of Biomedical Engineering Supervisor? No Care Teams Ethnic Studies Professor Relationship Specialty Start Date End Date Nikunj Plascencia MD 132 [place] [address] PCP - General Family Medicine 10/31/19 documented as of this encounter
--- OUTSIDE RECORDS SUMMARY | 2023-07-29 04:15 | External Medical Summary | Summary of Care ---
Author Name Unknown Organization [facility] Address [address] [place] [address] Phone [phone] Care Team Providers Care Stone Circular Sawyer Name Role Phone Nikunj Plascencia MD Primary Care Provider [phone] Reason for Visit * Reason Comments Follow Up Encounter Details Date Type Department Care Team (Late st Contact Info) Description 02/01/2023 11:00 AM EST Office Visit Urology, [place] [address], [place] [phone] Marcus Kirk PA-C [address] [place] [address] Calculus of kidney*; Nocturia Allergies Active Allergy Reactions Criticality Noted Date Comments Egg Shells 06/16/2018 Other reaction(s): GI SYMPTOMS Egg Yolk High 11/29/2019 Other reaction(s): GI upset Ibuprofen Other (Please comment) 07/30/2010 Stomach upset Morphine 08/28/2021 Other reaction(s): LEGS SWELL documented as of this encounter (statuses as of 02/01/2023) Medications Medication Sig Dispensed Refills Start Date [...] Particles (Cymbalta) 0 06/20/2022 Active Saline Nasal [place] 0.65 % Nasal Solution (Ingham) Q6H 0 06/06/2022 Active Clobetasol Propionate 0.05 [...] as of this encounter (statuses as of 02/01/2023) Active Problems Problem Noted Date Diagnosed Date Food insecurity 01/02/2023 Overview: Per [facility] Protocol Presence of Watchman left atrial appendage closu re device 12/19/2022 PAF (paroxysmal atrial fibrillation) 08/17/2022 Overview: Added automatically from request for surgery [id number] Nasal septal perforation 06/13/2022 Overview: Per ENT [...] as of this encounter (statuses as of 02/01/2023) Resolved Problems Problem Noted Date Diagnosed Date [...] 140/90 12/12/201111/09 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 07/30/2018 Overview: [place] palsy Tinea 06/27/2011 07/30/2018 Mixed urge and stress incontinence 12/15/2008 10/08/2019 ADVANCE DIRECTIVE INFORMATION 06/17/2004 10/08/2019 documented as of this encounter (statuses as of 02/01/2023) Immunizations Name Administration Dates Next Due COVID-19 mRNA, LNP-s, No Pre serve, 2-Dose Series ([employer]) 10/05/2020,09/14/2020 Covid-19, Mrna, Lnp-s, Pf, B ivalent, 30 Mcg, IM, 12 yrs and above ([employer]) 05/26/2022 Pneumococcal Conjugate Vacc, 13 Valent (Prevnar) [...] Sign Reading Time Taken Comments Blood Pressure 158/70 02/01/2023 11:06 AM EST Pulse 62 02/01/2023 11:06 AM EST Temperature 36.4 C (97.6 F) 02/01/2023 11:[address] Respiratory Rate - - Oxygen Saturation - [...] as of this encounter Progress Notes * Marcus Kirk PA-C - 02/01/2023 11:13 AM EST Images from the original note were not included. UROLOGY CLINIC NOTE 02/01/2023 11:13 AM HPI: Caroline Paulino is a 67 year old female who was last seen in Urology clinic 12/28/2022 secondary to 9 mm right lower pole renal calculus on renal US previously measuring [address] scan from 05/2019, and significantly improved nocturia on oxybutynin. Due to the increase in size of the left renal calculus, we obtained a CT scan of the abdomen pelvisto further assess as KUB imaging would have been very limited due to body habitus and stool burden from constipation. She recently completed CT scan presents here for results. She continues to experiencing some intermittent right side low back pain he continues taking oxybutynin 5 mg daily. She has been working on a good daily bowel regimen for constipation. +Watchman in place and currently on Plavix anti-coagulation Patient currently denies fever, chills, change in weight or appetite, dysuria, gross hematuria, daytime urinary frequency, urinary urgency, urinary incontinence. Review of patient's allergies indicates: Allergen Reactions Egg Yolk Other reaction(s): GI upset Egg Shells Other reaction(s): GI SYMPTOMS Ibuprofen Other (Please comment) Stomach upset Morphine Other reaction(s): LEGS SWELL Past Medical History: Diagnosis Date --- DIABETES [...] knee replacement 06/06/2018 Tibial plateau fracture 01/22/2015 Patient Active Problem List Diagnosis Code Irritable [...] appendage closure device Z95.818 Food insecurity Z59.41 Past Surgical History: Procedure Laterality Date ARTHROPLASTY KNEE TOTAL Right 06/04/2018 ARTHROPLASTY KNEE TOTAL performed by Duc Kimble Jr., MD at OR [facility] ASP/INJECT GANGLION CYST bilaterally, right x2 COLONOSCOPY THRU STOMA, W/BIOPSY 11/20/2010 hyperplastic polyps- repeat colonoscopy in 10 years COLONOSCOPY, DIAGNOSTIC (RECTUM) 10/16/2017 poor prep, procedure aborted/[facility] COLONOSCOPY, DIAGNOSTIC (RECTUM) 09/19/2018 diverticulosis/COLONOSCOPY FLEXIBLE PROXIMAL DIAGNOSTIC performed by Kristen Nogueira MD at ENDOSCOPY [facility] COLONOSCOPY, DIAGNOSTIC (RECTUM) 03/24/2021 adenomatous polyp, diverticulosis, repeat 5 yrs / [facility] CORONARY ANGIOGRAPHY W/LEFT HEART CATH Right 11/07/2016 CORONARY ANGIOGRAPHY W/LEFT HEART CATH performed by Fernando Germain DO at [facility] [place]GD, FLEXIBLE, DIAGNOSTIC 10/13/2017 normal/[facility] EGD, FLEXIBLE, DIAGNOSTIC 03/24/2021 Barretts, gastritis / [facility] HYSTEROSCOPY;ENDOMETRIAL ABLAT 1998 hysteroscopy, rollerball ablation INFORMATION bengin lump removed from neck, 2 cyst removed from hand INJECT DX/THER SUBSTANCE INTERLAMINAR LUMBAR/SACRAL W IMAGE GUIDE 01/28/2019 INJECTION SPINE LUMBAR OR SACRAL performed by Yannick Daniel DO at OR [facility] INJECT DX/THER SUBSTANCE INTERLAMINAR LUMBAR/SACRAL W [...] performed by Michael Smith MD at [place] [facility] MAMMOGRAM SCREENING-BILATERAL 2004 [facility] PERC CLOSURE TRANSCATH LEFT ATRIAL APPENDAGE W/ENDOCARDIAL IMPLANT Right 10/06/2022 PERCUTANEOUS CLOSURE LEFT ATRIAL APPENDAGE IMPLANT performed by Austin Penaloza MD at CARDIAC [facility] REMOVAL OF APPENDIX 11/2018 SACROILIAC JOINT [...] performed by Yannick Daniel DO at OR [facility] THIGH OR KNEE SURGERY NEC 2006 Knee/Leg Other Procedures Unlisted Current Outpatient Medications Medication Sig Dispense Refill [...] resolved, then when flaring 100 g 2 traZODone HCl 100 MG Oral Tablet (Desyrel) Take 2 Tablets by mouth at bedtime. Betamethasone Dipropionate 0.05 % External Ointment Apply [...] Capsule Delayed Release Particles (Cymbalta) Saline Nasal [place] 0.65 % Nasal Solution (Ingham) Q6H Clobetasol Propionate 0.05 % External Ointment [...] before October 07, 2022. 34 Tablet 11 Pregabalin 100 MG Oral Capsule (Lyrica) TAKE 1 CAPSULE BY MOUTH IN THE MORNING AND BEFORE BEDTIME 30 Capsule 3 Acitretin 10 MG Oral Capsule Take 1 capsule daily with breakfast. 90 Capsule 1 Calcipotriene 0.005 % External Cream (Calcitrene) Apply thin film to affected areas at face, chest,arms, ears, twice daily as needed. 120 g 3 valACYclovir HCl 1 GM Oral Tablet (Valtrex) [...] skin every 2 weeks. 4 mL 4 Current Facility-Administered Medications Medication Dose Route Frequency Provider Last Rate Last Admin atropine sulfate inj 0.4 mg 0.4 mg IV Push PRN Trip Nolasco Jr., Family Status Relation Status Mo Fa Sis Alive Sis Alive Sis Alive Sis (Not Specified) Sis (Not Specified) Sis (Not Specified) Bro Alive Bro (Not Specified) Physical Exam: BP 158/70 (BP Site: Left Arm, BP Position: Sitting, BP Cuff Size: Large) | Pulse 62 | Temp 36.4 C(97.6 F) (Tympanic) General: alert, no distress, well nourished, well developed, obese HEENT: unremarkable, EOMI, mucus membranes moist, sclera anicteric, no hearing impairment Abdomen: soft, non - obese, bowel sounds present, non - tender Extremities: no skin discoloration, no clubbing, no cyanosis, trace edema bilateral ankles BACK: No Costovertebral Angle Tenderness LABS: Latest Reference Range & Units 12/07/22 16:23 Sodium 135 - 146 mmol/L 143 Potassium 3.5 - 5.1 mmol/L 4.4 Chloride 98 - 107 mmol/L 106 CO2 22 - 32 mmol/L 28 BUN 6 - 20 mg/dL 33 (H) Creatinine 0.5 - 1.0 mg/dL 1.3 (H) Estimated Glomerular Filtration Rate >=60 mL/min 46 (L) Anion Gap 7 - 15 mmol/L 9 Glucose 70 - 120 mg/dL 93 Calcium 8.4 - 10.2 mg/dL 9.7 (H): Data is abnormally high (L): Data is abnormally low RADIOLOGY: CT scan abd/pelvis without contrast 01/27/2023: Kidneys and ureters: Approximately 8-9 mm right intrarenal calculus. No evidence of hydronephrosis or ureteral stones. Impression: Non-obstructing 8-9 mm right lower pole renal calculus 2. Significantly improved nocturia on Oxybutynin 5 mg daily 3. Chronic constipation 4. Plavix anticoagulation Plan: Discussed nonsurgical versus surgical intervention regarding nonobstructing 8-9 mm right lower polerenal calculus. Patient would like to pursue surgical intervention. Would recommend cystoscopy, right ureteroscopy, laser lithotripsy, basket stone extraction, right ureteral stent placement which will be tentatively scheduled with Dr. Luis Manuel Sandy on 04/03/2023. 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 Discussed importance of increased daily water intake, a low salt diet(< 2000mg), and 1/4th cup lemon/kwinhagak juice daily 3. Recommend good bowel regimen for constipation A. Discussed importance of increased daily water intake. B. Recommend increased fiber intake--may need to supplement with Benefiber, Metamucil, Citrucel, Fibercon C. Miralax one capful 1-2 times daily D. Consider Stool softener 1-2 times daily if above not successful Marcus Kirk PA-C 02/01/2023 11:13 AM documented in this encounter Plan of Treatment Upcoming Encounters Date Type Department Care Team (Latest Contact Info) Description 02/15/2023 3:00 PM EST Office Visit Dermatology [facility] [address] [place], [place] [phone] Cyril Borges MD [address] [place], [place] [phone] 02/22/2023 3:00 PM EST Office Visit Podiatry [facility] [address] [place] [address] Eveline Layne, DPGeetha [address] [place] [address] 03/21/2023 11:00 AM EST [facility] [address], [place] [phone] Maria Elena Das PA-C [address], [place] [phone] 04/03/2023 12:37 PM EST Hospital Encounter [place] [facility] [address] [place] [address] Luis Manuel Sandy MD [address], [place] [address] 04/03/2023 12:37 PM EST - 04/03/2023 2:27 PM EST Surgery [place] [facility] [address], [place] [phone] Luis Manuel Sandy MD [address] [place] [address] CYSTOURETHROSCOPY URETEROSCOPY WITH LITHOTRIPSY AND STENT INSERTION 04/03/2023 3:30 PM EST Office Visit [facility], [facility] [address] Fernando Torres DO 132 [facility] [place], [place] [address] 04/13/2023 2:00 PM EST Office Visit Pharmacy, [facility] [address] [place] [address] 04/20/2023 1:00 PM EST Appointment Radiology, [place] [address] [place] [phone] 04/20/2023 1:45 PM EST Procedure Only Urology, [place] [address] [place] [address] Luis Manuel Sandy MD [address] [place] [address] 06/14/2023 1:00 PM EDT Office Visit Cosmetic Surgery & Aesthetics [facility] [address] [place], [place] [phone] Conor Venegas PA-C [address], [place] [phone] 06/19/2023 1:30 PM EDT Nurse Only Rheumatology [place] [address] Robert Mitchell [place] [address] Pf, Nurse Rheum [facility] [place] [address] 06/27/2023 1:20 PM EDT Office Visit Family Practice [facility] [address] [facility] [address] Nikunj Plascencia MD [address] [place] [address] 07/03/2023 2:00 PM EDT Office Visit Nephrology, [facility] [address] [place] [address] Geovanni Linder MD [address] [place] [address] 07/05/2023 1:00 PM EDT Appointment Radiology, [address] [address] 07/05/2023 2:15 PM EDT Office Visit Urology, [address] [address] Luis Manuel Sandy MD [address] [place] [address] 12/20/2023 2:30 PM EDT Imaging Radiology, [address] [place] [address] 12/20/2023 3:20 PM EDT Office Visit Rheumatology [address] [place] [address] John Yoder MD [address] [place] [address] [place] [address] Scheduled Procedures Name Priority Associated Diagnoses Date/Ti ut CYSTOURETHROSCOPY URETEROSCOPY WITH LITHOTRIPSY AND STENT INSERTION [...] D LEVEL ONCE IN A LIFETIME-USE SMARTSET# [id number] Completed 06/10/2022, 05/28/2021, 06/20/2020, Additional history exists [...] this encounter Medical Devices Implanted Type Area Light Equipment Operator Device Identifier Shelf Expiration Date Model / Serial / Lot Kyphon Hv-R Bone Cement Implanted:Qty: 1 on 08/17/2016 by Michael Smith MD at [place] [facility] N/A: Spine Thoracic 03/19/2019 C01A / C01A / [id number] Persona The Personalized Knee System Vivacit-E Highly Crosslinked Polyethylene Articular Surface Medial Congruent Implanted:Qty: 1 on 06/04/2018 by Duc Kimble MD at OR [facility] Right: Knee [employer] 11/19/2022 42-5221-0 [id number] Device Watchman Flx 27mm - [id number] Implanted:Qty: 1 on 10/06/2022 by Austin Penaloza MD at [facility] Radisys : INTRV CARD [id number] 08/07/2025 [id number] / / [id number] documented as of this encounter Visit Diagnoses Diagnosis Calculus of kidney- Primary Nocturia Renal calculi Calculus of kidney documented in [...] the patient have Health Care Power of Certified Medication Technician? No Care Teams Stone Circular Sawyer Relationship Specialty Start Date End Date Nikunj Plascencia MD [address] [place] [address] PCP - General Family Medicine 10/31/19 documented as of this encounter
--- OUTSIDE RECORDS SUMMARY | 2023-07-29 04:15 | External Medical Summary | Summary of Care ---
Author Name Unknown Organization [facility] Address [address] [place] [address] Phone [phone] Care Team Providers Care Fuel Tank Sealer And Tester Name Role Phone Nikunj Plascencia MD Primary Care Provider [phone] Reason for Visit * Reason Onset Date Comments Precert In Process 01/31/2023 13 [facility] Dup ixent Encounter Details Date Type Department Care Team (Late st Contact Info) Description 01/31/2023 Telephone Dermatology [facility] [address] [place], [place] [phone] Cyril Borges MD 16 [place] [address] Precert In Process (13 SM [...] Particles (Cymbalta) 0 06/20/2022 Active Saline Nasal [place] 0.65 % Nasal Solution ([place]) Q6H 0 06/06/2022 Active Clobetasol Propionate 0.05 [...] Overview: Added automatically from request for surgery [id number] Nasal septal perforation 06/13/2022 Overview: Per ENT [...] 140/90 12/12/201111/09 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 07/30/2018 Overview: [place] palsy Tinea 06/27/2011 07/30/2018 Mixed urge and stress incontinence 12/15/2008 10/08/2019 ADVANCE DIRECTIVE INFORMATION 06/17/2004 10/08/2019 documented as of this encounter (statuses as of 02/01/2023) Immunizations Name Administration Dates Next Due COVID-19 mRNA, LNP-s, No Pre serve, 2-Dose Series ([employer]) 10/05/2020,09/14/2020 Covid-19, Mrna, Lnp-s, Pf, B ivalent, 30 Mcg, IM, 12 yrs and above ([employer]) 05/26/2022 Pneumococcal Conjugate Vacc, 13 Valent (Prevnar) [...] Prior authorization is needed for dupixent through [employer] insurance. ID: [id number] BIN:[id number] PCN:[id number] [facility] 02/02 Thank you. Danna Castro CPhT [facility] 01/31/2023,2:17 PM documented in this encounter Plan of Treatment Upcoming Encounters Date Type Department Care Team (Latest Contact Info) Description 02/15/2023 3:00 PM EST Office Visit Dermatology [facility] [address] [place] [place] [address] Cyril Borges MD [address] [place] [address] 02/22/2023 3:00 PM EST Office Visit Podiatry [facility] 132 [facility] [place] [address] Eveline Layne DPM [address] [place] [address] [place] [address] 03/21/2023 11:00 AM EST Office Visit Urology, [place] [address] [facility] [place] [address] Maria Elena Das PA-C [address] [place] [facility] [address] 04/03/2023 12:37 PM EST Hospital Encounter [place] [facility] [address] [facility] [place] [address] Luis Manuel Sandy MD [address] [facility], [place] [address] 04/03/2023 12:37 PM EST - 04/03/2023 2:27 PM EST Surgery [place] [facility] [address] [facility] [place] [address] Luis Manuel Sandy MD [address] [place] [address] CYSTOURETHROSCOPY URETEROSCOPY WITH LITHOTRIPSY AND STENT INSERTION 04/03/2023 3:30 PM EST Office Visit Cardiology, [facility] [address] [facility] [place] [address] Fernando Torres O, DO [address] [facility] [place] [address] 04/13/2023 2:00 PM EST Office Visit Pharmacy, [facility] [address] [facility] [place] [address] [facility] [address] [facility] [place] [address] 04/20/2023 1:00 PM EST Appointment Radiology, [place] [address] [facility] [place] [phone] 04/20/2023 1:45 PM EST Procedure Only Urology, [place] [address] [facility] [place] [address] Luis Manuel Sandy MD [address] [place] [address] 06/14/2023 1:00 PM EDT Office Visit Cosmetic Surgery & Aesthetics [facility] [address] [place] [address] Conor Venegas PA-C [address] [place] [address] 06/19/2023 1:30 PM EDT Nurse Only Rheumatology [address] [place] [address] Pf, Nurse Rheum [address] [place] [address] [place] [address] 06/27/2023 1:20 PM EDT Office Visit Family Practice [facility] [address] [place] [address] Nikunj Plascencia MD 132 [place] [address] 07/03/2023 2:00 PM EDT Office Visit Nephrology, [facility] 200 [facility] [place] [address] Geovanni Linder MD 200 [facility] [place] [address] 07/05/2023 1:00 PM EDT Appointment Radiology, [place] [address] [place] [address] 07/05/2023 2:15 PM EDT Office Visit Urology, [place] [address] [place] [address] Luis Manuel Sandy MD [address] [place] [address] 12/20/2023 2:30 PM EDT Imaging Radiology, [address] [place] [address] 12/20/2023 3:20 PM EDT Office Visit Rheumatology [facility] [place] [address] [place] [address] John Yoder MD [address] [employer] [place] [address] Scheduled Procedures Name Priority Associated Diagnoses Date/Ti [...] D LEVEL ONCE IN A LIFETIME-USE SMARTSET# [id number] Completed 06/10/2022, 05/28/2021, 06/20/2020, Additional history exists [...] this encounter Medical Devices Implanted Type Area Lithographic Platemaker Device Identifier Shelf Expiration Date Model / Serial / Lot Kyphon Hv-R Bone Cement Implanted:Qty: 1 on 08/17/2016 by Michael Smith MD at [place] [facility] N/A: Spine Thoracic 03/19/2019 C01A / C01A / [id number] Persona The Personalized Knee System Vivacit-E Highly Crosslinked Polyethylene Articular Surface Medial Congruent Implanted:Qty: 1 on 06/04/2018 by Duc Kimble MD at OR [facility] Right: Knee [employer] 11/19/2022 [id number] - / / [id number] Device Watchman Flx 27mm - [id number] Implanted:Qty: 1 on 10/06/2022 by Austin Penaloza MD at [facility] E-Semble : INTRV CARD [id number] 08/07/2025 [id number] / / [id number] documented as of this encounter Advance Directives [...] the patient have Health Care Power of Assurance Analyst? No Care Teams Fuel Tank Sealer And Tester Relationship Specialty Start Date End Date Nikunj Plascencia MD [address] [place] [address] PCP - General Family Medicine 10/31/19 documented as of this encounter
--- OUTSIDE RECORDS SUMMARY | 2023-07-29 04:15 | External Medical Summary | Summary of Care ---
Author Name Unknown Organization [facility] Address [address] [place] [address] Phone [phone] Care Team Providers Care Baffle Installer Name Role Phone Nikunj Plascencia MD Primary Care Provider [phone] [phone] Encounter Details Date Type Department Care Team ([facility] st Contact Info) Description 01/30/2023 Specialty Pharmacy [facility], [address], 4th [place] [address] Medication, Mt Specialty Refill, [address] [address] Allergies Active Allergy Reactions Criticality Noted Date Comments Egg Shells 06/16/2018 Other reaction(s): GI SYMPTOMS Egg Yolk High 11/29/2019 Other reaction(s): GI upset Ibuprofen Other (Please comment) 07/30/2010 Stomach upset Morphine 08/28/2021 Other reaction(s): LEGS SWELL documented as of this encounter (statuses as of 01/30/2023) Medications Medication Sig Dispensed Refills Start Date [...] Particles (Cymbalta) 0 06/20/2022 Active Saline Nasal [place] 0.65 % Nasal Solution (Dougherty) Q6H 0 06/06/2022 Active Dupixent 300 MG/2ML Subcutaneous Solution Pen-injector (Dupilumab) Inject one pen under the skin every 2 weeks. 4 mL 4 08/03/2022 Active Clobetasol Propionate 0.05 % External Ointment [...] as needed. 60 g 2 01/30/2023 Active Hospital, Clinic, or Other Facility Administered Medication Ordered Dose Route Frequency Start Date End Date Status atropine sulfate inj 0.4 mgIndications:Chest pain, unspecified type 0.4 mg IV PUSH PRN 01/29/2021 Active documented as of this encounter (statuses as of 01/30/2023) Active Problems Problem Noted Date Diagnosed Date Food insecurity 01/02/2023 Overview: Per [facility] Protocol Presence of Watchman left atrial appendage closu re device 12/19/2022 PAF (paroxysmal atrial fibrillation) 08/17/2022 Overview: Added automatically from request for surgery [id number] Nasal septal perforation 06/13/2022 Overview: Per ENT [...] as of this encounter (statuses as of 01/30/2023) Resolved Problems Problem Noted Date Diagnosed Date [...] 140/90 12/12/201111/09 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 07/30/2018 Overview: [place] palsy Tinea 06/27/2011 07/30/2018 Mixed urge and stress incontinence 12/15/2008 10/08/2019 ADVANCE DIRECTIVE INFORMATION 06/17/2004 10/08/2019 documented as of this encounter (statuses as of 01/30/2023) Immunizations Name Administration Dates Next Due COVID-19 mRNA, LNP-s, No Pre serve, 2-Dose Series ([employer]) 10/05/2020,09/14/2020 Covid-19, Mrna, Lnp-s, Pf, B ivalent, 30 Mcg, IM, 12 yrs and above (Pfizer) 05/26/2022 Pneumococcal Conjugate Vacc, 13 Valent (Prevnar) 05/30/2016 SEASONAL INFLUENZA, PF, 6 M & Above, IM , (FLULAVAL or FLUZONE) 10/21/2021,11/26/2020,12/05/2019,02/27,01/26/2018,11/09/2016 Seasonal Influenza Virus Vac cine, Unspecified Formulation 12/05/2019,02/27/2019,01/26/2018,11/09,11/10/2015,12/05/2014,10/17/2013 ,02/22/2013,11/09/2011,12/02/2010 Seasonal Influenza, Quadriva lent Hd (Fluzone Hd) [...] as of this encounter Progress Notes * Lesa Castle RPh - 01/30/2023 4:10 PM EST [employer] global 10 declined Lesa Castle RPH, PharmD Specialty Medication Pharmacist [facility] 01/30/2023,4:10 PM * Laura Guthrie CPhT - 01/30/2023 4:02 PM EST Prescribed medication: Medication: DUpixent Shipment date: 02/02 Delivery method: Specialty Mail Location Medication Delivered too? Home Address: [address] [place] [address] Laura Guthrie CPhT [facility] 01/30/2023,4:02 PM documented in this encounter Plan of Treatment Upcoming Encounters Date Type Department Care Team (Late st Contact Info) Description 02/01/2023 11:00 AM EST Office Visit Urology, [place] [address] [place] [address] Marcus Kirk PA-C [address] [place] [address] 02/15/2023 3:00 PM EST Office Visit Dermatology [place], [place] [address] [place] [address] Cyril Borges MD 16 [place] [address] 02/22/2023 3:00 PM EST Office Visit Podiatry [facility] 132 [place] [address] Eveline Layne, [address] [address] 04/03/2023 3:30 PM EST Office Visit Cardiology, [facility] 132 [place] [address] Fernando Torres DO 132 [place] [address] 04/13/2023 2:00 PM EST Office Visit Pharmacy, [facility] 132 [place] [address] [facility] 132 [place] [address] 06/14/2023 1:00 PM EDT Office Visit Cosmetic Surgery & Aest[facility] [place] [address] [place] [address] Conor Venegas PA-C [address] [place] [address] 06/19/2023 1:30 PM EDT Nurse Only Rheumatology [place] [address]10 [facility] [place] [address] Pf, Nurse Rheum [address] [place] [address] [place] [address] 06/27/2023 1:20 PM EDT Office Visit Family Practice [facility] 132 [place] [address] Nikunj Plascencia MD [address] [place] [address] 07/03/2023 2:00 PM EDT Office Visit Nephrology, [facility] 200 [facility] [place] [address] Geovanni Linder MD 200 [facility] [place] [address] 12/20/2023 2:30 PM EDT Imaging Radiology, [place] [address] [place] [address] 12/20/2023 3:20 PM EDT Office Visit Rheumatology [address] [place] [address] John Yoder MD [facility] [employer] [place] [address] Scheduled Procedures Name Priority Associated Diagnoses Date/Ti [...] D LEVEL ONCE IN A LIFETIME-USE SMARTSET# 89849 Completed 06/10/2022, 05/28/2021, 06/20/2020, Additional history exists [...] this encounter Medical Devices Implanted Type Area Elementary Spanish Teacher Device Identifier Shelf Expiration Date Model / Serial / Lot Kyphon Hv-R Bone Cement Implanted:Qty: 1 on 08/17/2016 by [place] [facility] [place]: Spine Thoracic 03/19/2019 C01A / C01A / [id number] Persona The Personalized Knee System Vivacit-E Highly Crosslinked Polyethylene Articular Surface Medial Congruent Implanted:Qty: 1 on 06/04/2018 by Duc Kimble MD at OR [facility] Right: Knee [employer] 11/19/2022 [id number] 08-31 [id number] Device Mikro Odeme | 3payman Flx 27mm - [id number] Implanted:Qty: 1 on 10/06/2022 by Austin Penaloza MD at [facility] : INTRV CARD [id number] 08/07/2025 [id number] / / [id number] documented as of this encounter Advance Directives [...] the patient have Health Care Power of Airline Hostess? No Care Teams Baffle Installer Relationship Specialty Start Date End Date Nikunj Plascencia MD 132 [facility] [place] [address] PCP - General Family Medicine 10/31/19 documented as of this encounter
--- OUTSIDE RECORDS SUMMARY | 2023-07-29 04:15 | External Medical Summary | Summary of Care ---
Author Name Unknown Organization [facility] Address [address] [place] [address] Phone [phone] Care Team Providers Care Incising Machine Operator Name Role Phone Nikunj Plascencia MD Primary Care Provider [phone] Encounter Details Date Type Department Care Team ([facility] st Contact Info) Description 01/30/2023 Specialty Pharmacy [facility], [address], [address]th [place] [address] Medication, [place] Specialty Refill, [address] [address] Allergies Active Allergy Reactions Criticality Noted Date [...] Particles (Cymbalta) 0 06/20/2022 Active Saline Nasal [place] 0.65 % Nasal Solution (Mingo) Q6H 0 06/06/2022 Active Dupixent 300 MG/2ML [...] Overview: Added automatically from request for surgery [id number] Nasal septal perforation 06/13/2022 Overview: Per ENT [...] 140/90 12/12/201111/09 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 07/30/2018 Overview: [place] palsy Tinea 06/27/2011 07/30/2018 Mixed urge and stress incontinence 12/15/2008 10/08/2019 ADVANCE DIRECTIVE INFORMATION 06/17/2004 10/08/2019 documented as of this encounter (statuses as of 01/30/2023) Immunizations Name Administration Dates Next Due COVID-19 mRNA, LNP-s, No Pre serve, 2-Dose Series ([employer]) 10/05/2020,09/14/2020 Covid-19, Mrna, Lnp-s, Pf, B ivalent, [...] Lesa Castle RPH, PharmD Specialty Medication Pharmacist [facility] 01/30/2023,4:10 PM * Laura Guthrie CPhT - 01/30/2023 4:02 PM EST Prescribed medication: Medication: DUpixent Shipment date: 02/02 Delivery method: Specialty Mail Location Medication Delivered too? Home Address: [address] [place] [address] [facility] 01/30/2023,4:02 PM documented in this encounter Plan of Treatment Upcoming Encounters Date Type Department Care Team (Late st Contact Info) Description 02/01/2023 11:00 AM EST Office Visit Urology, [place] [address] [place] [address] Marcus Kirk PA-C [address] [place] [address] 02/15/2023 3:00 PM EST Office Visit Dermatology [place], [place] 16 [place] [address] Cyril Borges MD 16 [place] [address] 02/22/2023 3:00 PM EST Office Visit Podiatry [facility] 132 [facility] [place] [address] Eveline Layne, [address] [address] 04/03/2023 3:30 PM EST Office Visit Cardiology, [facility] 132 [facility] [place] [address] Fernando Torres DO 132 [place] [address] 04/13/2023 2:00 PM EST Office Visit Pharmacy, [facility] 132 [facility] [place] [address] [facility] 132 [place] [address] 06/14/2023 1:00 PM EDT Office Visit Cosmetic Surgery & Aesthetics [facility] 16 [place] [address] Conor Venegas PA-C [address] [place] [address] 06/19/2023 1:30 PM EDT Nurse Only Rheumatology [place] [address]10 [facility] [place] [address] Pf, Nurse Rheum [address] [place] [address] [place] [address] 06/27/2023 1:20 PM EDT Office Visit Family Practice [facility] 132 [place] [address] Nikunj Plascencia MD [address] [place] [address] 07/03/2023 2:00 PM EDT Office Visit Nephrology, [facility] 200 [facility] [place] [address] Geovanni Linder MD 200 [facility] [place] [address] 12/20/2023 2:30 PM EDT Imaging Radiology, [place] [address] [place] [address] 12/20/2023 3:20 PM EDT Office Visit Rheumatology [address] [place] [address] John Yoder MD [facility] [employer] [place] [address] Scheduled Procedures Name Priority Associated Diagnoses Date/Ti [...] D LEVEL ONCE IN A LIFETIME-USE SMARTSET# [id number] Completed 06/10/2022, 05/28/2021, 06/20/2020, Additional history exists [...] this encounter Medical Devices Implanted Type Area Chrome Tanner Device Identifier Shelf Expiration Date Model / Serial / Lot Kyphon Hv-R Bone Cement Implanted:Qty: 1 on 08/17/2016 by [place] Smith MD at [place] [facility] [place] N/A: Spine Thoracic 03/19/2019 C01A / C01A / [id number] Persona The Personalized Knee System Vivacit-E Highly Crosslinked Polyethylene Articular Surface Medial Congruent Implanted:Qty: 1 on 06/04/2018 by Duc Kimble MD at OR [facility] Right: Knee [employer] 11/19/2022 [id number] 08-31 [id number] Device Student Designedman Flx 27mm - [id number] Implanted:Qty: 1 on 10/06/2022 by Austin Penaloza MD at [facility] : INTRV CARD [id number] 08/07/2025 [id number] / / [id number] documented as of this encounter Advance Directives [...] the patient have Health Care Power of Assistance Specialist? No Care Teams Incising Machine Operator Relationship Specialty Start Date End Date Nikunj Plascencia MD 132 [facility] [place] [address] PCP - General Family Medicine 10/31/19 documented as of this encounter
--- OUTSIDE RECORDS SUMMARY | 2023-07-29 04:16 | External Medical Summary | Summary of Care ---
Author Name Unknown Organization [facility] Address [address] [place] [address] Phone [phone] Care Team Providers Care Production Drilling Machine Operator Name Role Phone Nikunj Plascencia MD Primary Care Provider [phone] Reason for Visit * Reason Onset Date Comments Medication Refill 01/30/2023 Encounter Details Date Type Department Care Team (Late st Contact Info) Description 01/30/2023 Refill Dermatology [facility] [address] [place] [address] Cyril Carey MD 16 [place], [place] [id number] Allergies Active Allergy Reactions Criticality Noted Date [...] Particles (Cymbalta) 0 06/20/2022 Active Saline Nasal [place] 0.65 % Nasal Solution ([place]coming) Q6H 0 06/06/2022 Active Dupixent 300 MG/2ML [...] THE MORNING 90 Tablet 0 01/29/2023 Active Tacrolimus 0.1 % External Ointment Apply thin film to affected areas at face twice daily as needed. 60 g 2 01/30/2023 Active Tacrolimus 0.1 % External Ointment (Protopic) Apply thin film to affected areas at face twice daily as needed. 60 g 2 07/13/2022 3 Discontinue d(Refill) Hospital, Clinic, or Other [...] Overview: Added automatically from request for surgery [id number] Nasal septal perforation 06/13/2022 Overview: Per ENT [...] 140/90 12/12/201111/09 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 07/30/2018 Overview: [place] palsy Tinea 06/27/2011 07/30/2018 Mixed urge and stress incontinence 12/15/2008 10/08/2019 ADVANCE DIRECTIVE INFORMATION 06/17/2004 10/08/2019 documented as of this encounter (statuses as of 01/30/2023) Immunizations Name Administration Dates Next Due COVID-19 mRNA, LNP-s, No Pre serve, 2-Dose Series ([employer]) 10/05/2020,09/14/2020 Covid-19, Mrna, Lnp-s, Pf, B ivalent, [...] Miscellaneous Notes * Telephone Encounter - Cyril Carey MD - 01/30/2023 2:03 PM EST Signed Prescriptions: Disp Refills Tacrolimus 0.1 % External Ointment 60 g 2 Sig: Apply thin film to affected areas at face twice daily as needed.Authorizing Provider: CYRIL CAREY documented in this encounter Plan of Treatment Upcoming Encounters Date Type Department Care Team (Late st Contact Info) Description 02/01/2023 11:00 AM EST Office Visit Urology, [place] [address] [place] [address] Marcus Kirk PA-C [address] [place] [address] 02/15/2023 3:00 PM EST Office Visit Dermatology [place], [place] [address] [place] [address] Cyril Carey MD 16 [place] [address] 02/22/2023 3:00 PM EST Office Visit Podiatry [facility] 132 [facility] [place] [address] Eveline Layne [address] [place] [address] 04/03/2023 3:30 PM EST Office Visit Cardiology, [facility] 132 [facility] [place] [address] Fernando Torres, DO 132 [facility] [place] [address] 04/13/2023 2:00 PM EST Office Visit Pharmacy, [facility] 132 [facility] [place] [address] [place] [facility] 132 [place] [address] 06/14/2023 1:00 PM EDT Office Visit Cosmetic Surgery & Aesthetics [facility] [address] [place] [address] Conor Venegas PA-C 100 [place] [address] 06/19/2023 1:30 PM EDT Nurse Only Rheumatology [place] [address] [facility] [place] [address] Pf, Nurse Rheum [facility] [facility] [place] [address] 06/27/2023 1:20 PM EDT Office Visit Family Practice [facility] 132 [facility] [place] [address] Nikunj Plascencia MD 132 [facility] [place] [address] 07/03/2023 2:00 PM EDT Office Visit Nephrology, [address] [place] [address] Geovanni Linder MD 200 [facility] [place] [address] 12/20/2023 2:30 PM EDT Imaging Radiology, [address] [place] [address] 12/20/2023 3:20 PM EDT Office Visit Rheumatology [address] [place] [address] John Yoder MD [facility] [employer] [place] [address] Scheduled Procedures Name Priority Associated Diagnoses Date/Ti [...] D LEVEL ONCE IN A LIFETIME-USE SMARTSET# 59230 Completed 06/10/2022, 05/28/2021, 06/20/2020, Additional history exists [...] this encounter Medical Devices Implanted Type Area Pay Station Department Manager Device Identifier Shelf Expiration Date Model / Serial / Lot Kyphon Hv-R Bone Cement Implanted:Qty: 1 on 08/17/2016 by [place] Smith MD at [place] [facility] [place] N/A: Spine Thoracic 03/19/2019 C01A / C01A / [id number] Persona The Personalized Knee System Vivacit-E Highly Crosslinked Polyethylene Articular Surface Medial Congruent Implanted:Qty: 1 on 06/04/2018 by Duc Kimble MD at OR [facility] Right: Knee [employer] 11/19/2022 [id number] 08-31 [id number] Device Watchman Flx 27mm - [id number] Implanted:Qty: 1 on 10/06/2022 by Austin Penaloza MD at [facility] [place] [employer] : INTRV CARD [id number] 08/07/2025 [id number] / / [id number] documented as of this encounter Advance Directives [...] the patient have Health Care Power of Clinical Project Manager? No Care Teams Production Drilling Machine Operator Relationship Specialty Start Date End Date Nikunj Plascencia MD 132 [facility] [place] [address] PCP - General Family Medicine 10/31/19 documented as of this encounter
--- OUTSIDE RECORDS SUMMARY | 2023-07-29 04:16 | External Medical Summary | Summary of Care ---
Author Name Unknown Organization [facility] Address [address] [place] [address] Phone [phone] Care Team Providers Care Transit Authority Police Officer Name Role Phone Nikunj Plascencia MD Primary Care Provider [phone] Reason for Visit * Reason Comments eRx-Medication Refill Encounter Details Date Type Department Care Team (Late st Contact Info) Description 01/28/2023 Refill Cardiology [facility] [address] [place] [id number] Felicia Rothman DO 400 [facility] [place] [address] Essential hypertension with goal blood pressure less than 140/90 Allergies Active Allergy Reactions Criticality Noted Date [...] 11/27/2021 Active Betamethasone Dipropionate 0.05 % External OintmentIndications [...] Particles (Cymbalta) 0 06/20/2022 Active Saline Nasal [place] 0.65 % Nasal Solution ([place]) Q6H 0 06/06/2022 Active Tacrolimus 0.1 % External Ointment (Protopic) Apply thin film to affected areas at face twice daily as needed. 60 g 2 07/13/2022 Active Dupixent 300 MG/2ML Subcutaneous Solution Pen-injector [...] AND EVENING 90 Tablet 3 01/30/2023 Active Metoprolol Succinate ER 50 MG Oral Tablet Extended Release 24 Hour (toPROL XL)Indications:Esse ntial hypertension with goal blood pressure less than 140/90 TAKE 1/2 TABLET EVERY MORNING AND EVENING 90 Tablet 3 10/28/2022 01/31/20 23 Discontinued Hospital, Clinic, or Other Facility Administered [...] Overview: Added automatically from request for surgery [id number] Nasal septal perforation 06/13/2022 Overview: Per ENT [...] 140/90 12/12/201111/09 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 07/30/2018 Overview: [place] palsy Tinea 06/27/2011 07/30/2018 Mixed urge and [...] encounter Miscellaneous Notes * Telephone Encounter - Nyla Jean RP - 01/30/2023 11:07 AM EST Signed Prescriptions: Disp Refills Metoprolol Succinate ER 50 MG Oral Tablet *90 Tab*3 Sig: TAKE 1/2 TABLET EVERY MORNING AND EVENING Authorizing Provider: RAMON BRIONES Ordering User: NYLA JEAN * Telephone Encounter - Dominique Betts LPN - 01/30/2023 8:35 AM ESTPending Prescriptions: Disp Refills Metoprolol Succinate ER 50 MG Oral Tablet *90 Tab*3 Sig: TAKE 1/2 TABLET EVERY MORNING AND EVENING * Telephone Encounter - Dominique Betts LPN - 01/30/2023 8:35 AM EST Pending Prescriptions: Disp Refills Metoprolol Succinate ER 50 MG Oral Tablet*90 Tab*3 Sig: TAKE 1/2 TABLET EVERY MORNING AND EVENING documented in this encounter Plan of Treatment Upcoming Encounters Date Type Department Care Team (Late st Contact Info) Description 02/01/2023 11:00 AM EST [facility] [address] [place] [address] Marcus Kirk PA-C [address] [place] [address] 02/15/2023 3:00 PM EST Office Visit Dermatology [facility] 16 [place] [address] Cyril Borges MD 16 [place] [address] 02/22/2023 3:00 PM EST Office Visit [facility] 132 [facility] [place] [address] Eveline Layne DPM 400 [place] [address] 04/03/2023 3:30 PM EST Office Visit Cardiology, [facility] 132 [facility] [place] [address] Fernando Torres, 132 [facility] [place] [address] 04/13/2023 2:00 PM EST Office Visit Pharmacy, [facility] 132 [place] [address] [facility] 132 [place] [address] 06/14/2023 1:00 PM EDT Office Visit Cosmetic Surgery & Aesthetics [facility] 16 [place] [address] Conor Venegas PA-C [address] [place] [address] 06/19/2023 1:30 PM EDT Nurse Only Rheumatology [address] [place] [address] Pf, Nurse Rheum [facility] [place] [address] 06/27/2023 1:20 PM EDT Office Visit Family Practice [facility] 132 [place] [address] Nikunj Plascencia MD 132 [place] [address] 07/03/2023 2:00 PM EDT Office Visit Nephrology, [facility] [address] [place] [place] [address] Goevanni Linder MD [address] [place] [address] [address] 12/20/2023 2:30 PM EDT Imaging Radiology, [place] [address] [place] [address] [address] 12/20/2023 3:20 PM EDT Office Visit Rheumatology [place] [address] [facility] [place] [address] John Yoder MD [address] [place] [address] [place] [address] Scheduled Procedures Name Priority Associated Diagnoses Date/Ti [...] D LEVEL ONCE IN A LIFETIME-USE SMARTSET# [id number] Completed 06/10/2022, 05/28/2021, 06/20/2020, Additional history exists [...] this encounter Medical Devices Implanted Type Area Clammer Device Identifier Shelf Expiration Date Model / Serial / Lot Kyphon Hv-R Bone Cement Implanted:Qty: 1 on 08/17/2016 by [place] Smith [place] [facility] [place]A: Spine Thoracic 03/19/2019 C01A / C01A / [id number] Persona The Personalized Knee System Vivacit-E Highly Crosslinked Polyethylene Articular Surface Medial Congruent Implanted:Qty: 1 on 06/04/2018 by Duc Kimble MD at OR [facility] Right: Knee [employer] 11/19/2022 [id number] 07-12 / / [id number] Device Watchman Flx 27mm - [id number] Implanted:Qty: 1 on 10/06/2022 by [place] Penaloza [place] [facility] [facility] [place] [employer] : INTRV CARD [id number] 08/07/2025 [id number] / / [id number] documented as of this encounter Visit Diagnoses Diagnosis Essential hypertension with goal blood pressure less than 140/90 documented in this encounter Advance Directives Latest [...] the patient have Health Care Power of Firewall Engineer? No Care Teams Transit Authority Police Officer Relationship Specialty Start Date End Date Nikunj Plascencia MD [address] [place] [address] PCP - General Family Medicine 10/31/19 documented as of this encounter
--- NOTE | 2023-07-29 05:53 | Electrocardiogram Report ---
Test Reason : Blood Pressure : / mmHG Vent. Rate : 059 BPM Atrial Rate : 059 BPM P-R Int : 154 ms QRS Dur : 078 ms QT Int : 398 ms P-R-T Axes : 010 -09 028 degrees QTc Int : 394 ms Sinus bradycardia Possible Septal infarct , age undetermined Abnormal ECG When compared with ECG of 06-JUN-2022 05:42, No significant change was found Confirmed by Shaun Queen ([id number]) on 07/29/2023 5:53:19 AM Referred By: REFERRED SELF Confirmed By:Shaun Queen
--- NOTE | 2023-07-29 05:54 | Electrocardiogram Report ---
Test Reason : Blood Pressure : / mmHG Vent. Rate : 058 BPM Atrial Rate : 058 BPM P-R Int : 154 ms QRS Dur : 074 ms QT Int : 404 ms P-R-T Axes : 023 -14 011 degrees QTc Int : 396 ms Sinus bradycardia Septal infarct (cited on or before 28-JUL-2023) Abnormal ECG When compared with ECG of 28-JUL-2023 10:44, No significant change was found Confirmed by Shaun Queen ([id number]) on 07/29/2023 5:53:30 AM Referred By: REFERRED SELF Confirmed By:Shaun Queen
[2023-07-29] MEDS: POLYETHYLENE (MIRALAX) 17 GM PACK PO PRN (06:20)
[2023-07-29 08:09] LABS: Hematocrit (blood only) 31.5 % (37.0-47.0); Hemoglobin 9.1 g/dl (12.0-16.0); Mean Corpuscular Hemoglobin 24.4 pg (25.0-34.0); Mean Corpuscular Hgb Conc 28.9 g/dL (32.0-36.0); Mean Corpuscular Volume 84.5 fL (80.0-100.0); Mean Platelet Volume 11.8 fL (9.4-12.4); Platelet Count 126 K/uL (130-400); RDW Coefficient of Variation 18.9 % (11.5-14.5); RDW Standard Deviation 59.7 fL (36.4-46.3); Red Blood Count 3.73 M/uL (4.20-5.40); White Blood Count 5.88 K/ul (4.8-10.8)
[2023-07-29 08:40] LABS: Calcium 8.3 mg/dl (8.6-10.3); Potassium 4.9 mmol/L (3.5-5.1)
[2023-07-29 08:46] LABS: BUN Creatinine Ratio 22.7 (10-20); Creatinine Clr Calc Pharmacy 55.2 ml/min; Est GFR (African American) 44.9 ml/min; Est GFR (Non-African American) 38.7 ml/min
[2023-07-29] MEDS: ASCORBIC ACID 500 MG TAB PO SCH (09:27)
[2023-07-29] MEDS: DULoxetine HCL 60 MG CAP PO SCH (09:27)
[2023-07-29] MEDS: FOLIC ACID 400 MCG TAB PO SCH (09:27)
[2023-07-29] MEDS: diphenhydrAMINE Capsule 25 MG CAP PO SCH (09:27)
[2023-07-29] MEDS: TAMSULOSIN HCL 0.4 MG CAP PO SCH (09:28)
[2023-07-29] MEDS: CHOLECALCIFEROL 25 MCG (1000 UNITS) TAB PO SCH (09:28)
[2023-07-29] MEDS: ASPIRIN 81 MG ECTAB PO SCH (09:28)
[2023-07-29] MEDS: CYANOCOBALAMIN (B-12) 500 MCG TABLET PO SCH (09:28)
--- NOTE | 2023-07-29 12:45 | XRay Report ---
RIGHT HIP 2 VIEWS CLINICAL HISTORY: Right hip pain. FINDINGS: Portable AP and frog-leg views of the right hip are compared to study dated 10/17/2017. The skeletal structures are osteopenic. There is no radiographic evidence of acute fracture involving the right hip or the visualized right hemipelvis. Wrbi-[id number] degenerative change and joint space n arrowing is seen in the right hip. There is degenerative sclerosis of the right sacroiliac joint. The overlying soft tissues are within normal limits. Surgical clips are seen in the right lower quadrant . IMPRESSION: No acute bony abnormality is identified. Electronically signed by: Jonah Farris M.D. 07/29/2023 12:43 PM
[2023-07-29] MEDS: Nursing to Pharmacy Communication SCH (12:51)
--- NOTE | 2023-07-29 13:17 | Hospitalist Progress Note ---
Date of Service July 29, 2023 Assessment & Plan (1) Closed fracture of proximal end of right fibula: (2) Metatarsal bone fracture: (3) Fall: Plan: Patient is 68 year old female with PMH CAD, PAF s/p watchman in 2022, HTN, HLD, severe aortic stenosis, chronic anemia, CKD III, anxiety, depression, obesity, bullous pemphigoid, and others listed below presented to ER with complaint of fall and right leg pain today after walking and feeling dizzy and "leg shakin ess". Denies syncope, LOC, hitting head or CP. Chronic exertional SOB and dizziness with known severe aortic stenosis. Right knee x-ray, Tib/fib xray: Mildly displaced oblique fracture within the nec k of the right fibula. Right foot xray: Acute to subacute appearing nondisplaced fracture involves the distal fifth metatarsal. Subacute to chronic nondisplaced fracture within the base of the fifth metatarsal which is partially united. EKG sinus bradycardia without significant ST changes ?If fall cardiac in nature with history symptomatic In ER given Dilaudid 0.5mg with relief of pain Scheduled Tylenol, oxycodone prn pain Splint RLE Will make non-weight bearing right leg pending further recommendations by ortho Appreciate Ortho input and recommendation Complains of pain in the right hip-right hip x-ray all unremarkable for any fracture Will continue with PT and OT Hypotension Noted to have significant hypotension this morning Advised to drink little bit more fluid Will try to continue with the beta-kristofer Avoid any intravenous fluid given the history of severe aortic stenosis Try to decrease the use of IV narcotic pain medications as that can drop the blood pressure Will give intravenous Tylenol for better pain control (4) Severe aortic stenosis: Plan: Chronic exertional SOB and dizziness with known severe aortic stenosis. 05/16/23 Echo: EF: 55-59%, severe Is scheduled to see interventional cardiology at [facility] for upcoming cardiac cath and consideration of TAVR Appears euvolemic currently Cardiology consult-appreciate cardiology input and recommendation Strongly advised to continue with outpatient procedure and cardiac testing (5) Chronic anemia: Plan: Hgb: 8.7. Was 8.9 on 03/31/23, 04/28/23 Monitor H&H (6) Stage 3 chronic kidney disease: Plan: Cr: 1.7. Baseline Cr: 1.5-1.6 Monitor renal functions (7) CAD (coronary artery disease): Plan: Cardiac cath 2016 with moderate diffuse irregularities Denies CP Continue aspirin, atorvastatin, metoprolol succinate, lisinopril (8) Paroxysmal atrial fibrillation: Plan: S/P Watchman 2022 Current sinus rhythm (9) Dyslipidemia: Plan: Continue atorvastatin (10) Hypertension: Plan: Continue lisinopril, metoprolol succinate (11) Anxiety and depression: Plan: Continue duloxetine, buspirone (12) Bullous pemphigoid: Plan: On Dupixent Follows with dermatology Morbidly obese BMI: 47 DVT Prophylaxis Heparin SQ Full Code as per discussion with pt Follows with Dr Plascencia for routine care Admission and Anticipated Discharge Date Admission Date: July 28, 2023 Subjective 07/29/2023 The patient was seen and examined in medical telemetry unit She has been complaining of pain in the right leg and also right Noted to have low blood pressure during physical therapy Denies any chest pain and/or palpitation Review of Systems Review of Systems: All systems reviewed and are unremarkable except as noted below Physical Exam Physical Exam: Lying in bed with acute distress due to pain in the right lower extremity Constitutional: well developed, well nourished, + ill appearing and + morbidly obese Eyes: PERRL, conjunctivae normal, anicteric sclerae ENMT: external ear and nose normal, oropharynx normal Neck: trachea midline, no thyromegaly Respiratory: no respiratory distress Auscultation: lungs clear to auscultation bilaterally and + diminished lung sounds Cardiovascular: Rate/Rhythm: regular rate and regular rhythm; not tachycardic Heart Sounds: normal S1, normal S2 and + murmur (3/6 ESM over aortic area) Extremities: + edema (Trace edema bilaterally) Gastrointestinal (Abdomen): Inspection/Auscultation: normal bowel sounds; abdomen not distended Percussion/Palpation: abdomen soft; abdomen nontender Musculoskeletal: Pain in the right leg and pain with movement of the right lower extremity to the hip Neurologic: normal touch/pain/proprioception and moves all extremities Lymphatic: no cervical or axillary lymphadenopathy Results & Data Results & Data Vital Signs (Past 12 Hours) Vital Signs Temp Pulse Pulse Resp BP Pulse Ox O2 Del Method 07/29/23 11:43 36.3 C L 63 20 89/49 L 97 Room Air 07/29/23 08:27 36.5 C 65 20 123/79 96 Room Air 07/29/23 07:25 Room Air 07/29/23 07:12 65 07/29/23 03:36 36.4 C L 69 18 145/70 H 98 Room Air Laboratory Results Short CBC 07/29/23 Range/Units 06:41 WBC 5.88 (4.8-10.8) K/ul Hgb 9.1 L (12.0-16.0) g/dl Hct 31.5 L (37.0-47.0) % Plt Count 126 L (130-400) K/uL BMP 07/29/23 06:41 Sodium 139 Potassium 4.9 Chloride 108 H Carbon Dioxide 26 BUN 32 H Creatinine 1.41 H D Glucose 85 Calcium 8.3 L Medications Administered Current Inpatient Medications Acetaminophen (Acetaminophen 500 Mg Tab) 1,000 mg PO Q8H PRN PRN Reason: Pain or Fever Stop: 08/28/23 12:48 Ascorbic Acid (Ascorbic Acid 500 Mg Tab) 250 mg PO QAM [facility] Stop: 08/28/23 08:59 Last Admin: 07/29/23 09:27 Dose: 250 mg Aspirin (Aspirin 81 Mg Ectab) 81 mg PO DAILY [facility] Stop: 08/28/23 08:59 Last Admin: 07/29/23 09:28 Dose: 81 mg Atorvastatin Calcium (Atorvastatin 40 Mg Tab) 80 mg PO QPM [facility] Stop: 08/27/23 20:59 Last Admin: 07/28/23 20:11 Dose: 80 mg Buspirone HCl (Buspirone 5 Mg Tab) 10 mg PO BID [facility] Stop: 08/27/23 20:59 Last Admin: 07/29/23 09:27 Dose: 10 mg Clotrimazole (Clotrimazole 1% Cr 15 Gm Tube) 1 appln TOP BID PRN PRN Reason: Itching Stop: 08/27/23 14:04 Cyanocobalamin (Cyanocobalamin (B-12) 500 Mcg Tablet) 1,000 mcg PO QAM [facility] Stop: 08/28/23 08:59 Last Admin: 07/29/23 09:28 Dose: 1,000 mcg Diphenhydramine HCl (Diphenhydramine Capsule 25 Mg Cap) 25 mg PO QAM [facility] Stop: 08/28/23 08:59 Last Admin: 07/29/23 09:27 Dose: 25 mg Docusate Sodium (Docusate Sodium 100 Mg Cap) 100 mg PO BID [facility] Stop: 08/27/23 20:59 Last Admin: 07/29/23 09:27 Dose: 100 mg Doxepin HCl (Doxepin Hcl 25 Mg Capsule) 25 mg PO HS [facility] Stop: 08/27/23 20:59 Last Admin: 07/28/23 20:11 Dose: 25 mg Duloxetine HCl (Duloxetine Hcl 60 Mg Cap) 120 mg PO DAILY [facility] Stop: 08/28/23 08:59 Last Admin: 07/29/23 09:27 Dose: 120 mg Folic Acid (Folic Acid 400 Mcg Tab) 800 mcg PO QAM [facility] Stop: 08/28/23 08:59 Last Admin: 07/29/23 09:27 Dose: 800 mcg Heparin Sodium (Porcine) (Heparin Sod 5,000 Unit/0.5 Ml Vial) 7,500 units SQ Q12 [facility] Stop: 08/27/23 20:59 Last Admin: 07/29/23 09:27 Dose: 7,500 units Acetaminophen (Ofirmev) 1,000 mg in 100 mls @ 400 mls/hr IV Q8H PRN PRN Reason: Pain Stop: 08/01/23 12:27 Lisinopril (Lisinopril 10 Mg Tab) 10 mg PO HS [facility] Stop: 08/27/23 20:59 Last Admin: 07/28/23 20:10 Dose: 10 mg Memantine (Memantine Hcl 10 Mg Tab) 10 mg PO BID [facility] Stop: 08/27/23 20:59 Last Admin: 07/29/23 09:27 Dose: 10 mg Metoprolol Succinate (Metoprolol Succ 25mg Ext Rel Tab) 25 mg PO BID [facility] Stop: 08/27/23 20:59 Last Admin: 07/29/23 09:27 Dose: 25 mg Miconazole Nitrate (Miconazole Nitrate Powder 85 Gm) 1 appln EXT PRN PRN PRN Reason: skin rash Stop: 08/27/23 14:04 Last Admin: 07/29/23 09:26 Dose: 1 appln Ondansetron HCl (Ondansetron Inj 2 Mg/Ml 2 Ml Vial) 4 mg IV Q6H PRN PRN Reason: Nausea Stop: 08/27/23 14:04 Oxybutynin Chloride (Oxybutynin Chloride Xl 5 Mg Tabcr) 5 mg PO QPM [facility] Stop: 08/27/23 20:59 Last Admin: 07/28/23 20:10 Dose: 5 mg Oxycodone HCl (Oxycodone Hcl Ir 5 Mg Tab (Immediate Release)) 5 mg PO Q6H PRN PRN Reason: Mod-Sev Pain (Scale 4-10) Stop: 08/11/23 14:04 Last Admin: 07/29/23 09:26 Dose: 5 mg Polyethylene Glycol (Polyethylene (Miralax) 17 Gm Pack) 17 gm PO DAILY PRN PRN Reason: Constipation Stop: 08/27/23 14:04 Last Admin: 07/29/23 06:20 Dose: 17 gm Pregabalin (Pregabalin 150 Mg Cap) 150 mg PO TID [facility] Stop: 08/27/23 14:29 Last Admin: 07/29/23 09:26 Dose: 150 mg Sodium Chloride (Sodium Chloride 0.65% Na Soln 45 Ml ([place])) 2 sprays NA Q6H PRN PRN Reason: Nasal Congestion Stop: 08/27/23 14:04 Tamsulosin HCl (Tamsulosin Hcl 0.4 Mg Cap) 0.4 mg PO DAILY [facility] Stop: 08/28/23 08:59 Last Admin: 07/29/23 09:28 Dose: 0.4 mg Vitamin D (Cholecalciferol 25 Mcg (1000 Units) Tab) 25 mcg PO QAM [facility] Stop: 08/28/23 08:59 Last Admin: 07/29/23 09:28 Dose: 25 mcg (6) Stage 3 chronic kidney disease Chronic kidney disease stage 3 subtype: unspecified whether 3a or 3b Qualified Code(s): N18.30 - Chronic kidney disease, stage 3 unspecified (7) CAD (coronary artery disease) Coronary Disease-Associated Artery/Lesion type: [place] artery [place] vs. transplanted heart: [place] heart Associated angina: without angina Qualified Code(s): I25.10 - Atherosclerotic heart disease of [place] coronary artery without angina pectoris (10) Hypertension Hypertension type: primary hypertension Qualified Code(s): I10 - Essential (primary) hypertension
[2023-07-29] MEDS: ACETAMINOPHEN 1,000 MG/100 ML VIAL IV PRN (13:36)
--- NOTE | 2023-07-29 15:44 | Cardiology Progress Note ---
Date of Service July 29, 2023 Assessment & Plan (1) Severe aortic stenosis: (2) Fall: (3) Paroxysmal atrial fibrillation: (4) Presence of Watchman left atrial appendage closure device: (5) CAD (coronary artery disease): Plan 68-year-old female with known severe aortic valve stenosis with outpatient workup scheduled to be performed at [facility] next week admitted post mechanical fall with resultant proximal right fibular fracture and metatarsal fracture. No overt syncope. Blood pressures have been labile during this hospitalization with systolic readings ranging from 89-157. Recommend reduction in Lisinopril dosing. I spent a total of 35 minutes on the date of service in preparation, delivery, and documentation of the care provided to this patient excluding any time spent in the performance of separately billed services. This visit was a split-shared visit with the substantive portion of the medical decision making performed by the supervising boat patcher plastic/billing provider. Admission and Anticipated Discharge Date Admission Date: July 28, 2023 Supervising Physician Co-Signing Physician Notes I have reviewed the advanced practitioner's documentation on the date of service referenced in note, and I agree with, and take responsibility for the plan of care. I spent a total of [10] minutes coordinating, documenting, and providing care for this patient excluding time spent in the performance of separately billed services or time spent by another provider. Subjective Patient seen and examined. Chart, medications, telemetry reviewed. Feeling okay. Anxious about upcoming valvular workup and intervention which we discussed today at length. No chest pain. No palpitations. No dyspnea. No orthopnea, PND, or peripheral edema. Telemetry: Sinus rhythm in the 60s. Review of Systems Review of Systems: Complete Review of Systems is as stated above, negative, or noncontributory. Physical Exam Physical Exam: General: A&Ox3. NAD. HENT: Normocephalic. Atraumatic. Eyes: PER. Conjunctiva pink, sclera clear. Neck: No JVD. Heart: RRR. Grade II/ systolic murmur. No diastolic murmur. Lungs: Clear to auscultation anteriorly. Abdomen: +BS. Soft. Nontender. No masses or organomegaly. Extremities: No clubbing, cyanosis, or significant edema. Limited neurological examination is without focal deficits. Pulses: radial=2/4, posterior tibial=1/4. Results & Data Vital Signs (Past 12 Hours) Vital Signs Temp Pulse Pulse Resp BP Pulse Ox O2 Del Method 07/29/23 15:33 36.4 C 61 20 89/45 L 97 Room Air 07/29/23 15:18 61 07/29/23 11:43 36.3 C L 63 20 89/49 L 97 Room Air 07/29/23 08:27 36.5 C 65 20 123/79 96 Room Air 07/29/23 07:25 Room Air 07/29/23 07:12 65 Laboratory Results CBC 07/29/23 Range/Units 06:41 WBC 5.88 (4.8-10.8) K/ul RBC 3.73 L (4.20-5.40) M/uL Hgb 9.1 L (12.0-16.0) g/dl Hct 31.5 L (37.0-47.0) % Plt Count 126 L (130-400) K/uL Comprehensive Metabolic Panel 07/29/23 Range/Units 06:41 Sodium 139 (136-145) mmol/L Potassium 4.9 (3.5-5.1) mmol/L Chloride 108 H (98-107) mmol/L Carbon Dioxide 26 (21-32) mmol/L BUN 32 H (6-23) mg/dl Creatinine 1.41 H D (0.6-1.2) mg/dl Glucose 85 (70-99(Fasting)) mg/dl Calcium 8.3 L (8.6-10.3) mg/dl Intake and Output 07/29/23 07/29/23 07/29/23 06:59 14:59 22:59 Intake Total 120 / 360 700 / 700 Output Total 900 / 900 Balance -780 / -540 700 / 700 Intake: IV 100 / 100 Acetaminophen 1,000 mg In 100 100 / 100 ml @ 400 mls/hr IV Q8H PRN Rx#: [id number] Oral 120 / 360 600 / 600 Output: Urine 900 / 900 Other: # Unmeasured Voids 4 Weight 133.6 kg Weight Measurement Method Built in [facility] (2) Fall Encounter type: initial encounter Qualified Code(s): W19.XXXA - Unspecified fall, initial encounter (5) CAD (coronary artery disease) Associated angina: without angina Coronary Disease-Associated Artery/Lesion type: [place] artery [place] vs. transplanted heart: [place] heart Qualified Code(s): I25.10 - Atherosclerotic heart disease of [place] coronary artery without angina pectoris
[2023-07-29] MEDS: lisinopril 2.5 MG TAB PO SCH (20:28)
[2023-07-30] MEDS: ACETAMINOPHEN 500 MG TAB PO PRN (05:32)
[2023-07-30 05:46] LABS: Basophils # (auto) 0.04 K/uL (0.00-0.20); Basophils % (auto) 0.7 %; Eosinophils # (auto) 0.37 K/uL (0.00-0.50); Eosinophils % (auto) 6.3 %; Hematocrit (blood only) 28.2 % (37.0-47.0); Hemoglobin 8.1 g/dl (12.0-16.0); Immature Granulocytes # (auto) 0.02 K/uL (0.01-0.20); Immature Granulocytes % (auto) 0.3 %; Lymphocytes # (auto) 2.27 K/uL (1.20-3.40); Lymphocytes % (auto) 38.9 %; Mean Corpuscular Hemoglobin 24.3 pg (25.0-34.0); Mean Corpuscular Hgb Conc 28.7 g/dL (32.0-36.0); Mean Corpuscular Volume 84.7 fL (80.0-100.0); Mean Platelet Volume 11.9 fL (9.4-12.4); Monocytes # (auto) 0.86 K/uL (0.11-0.59); Monocytes % (auto) 14.7 %; Neutrophils # (auto) 2.28 K/uL (1.40-6.50); Neutrophils % (auto) 39.1 %; Platelet Count 130 K/uL (130-400); RDW Coefficient of Variation 18.9 % (11.5-14.5); RDW Standard Deviation 59.1 fL (36.4-46.3); Red Blood Count 3.33 M/uL (4.20-5.40); White Blood Count 5.84 K/ul (4.8-10.8)
[2023-07-30 06:01] LABS: BUN Creatinine Ratio 24.3 (10-20); Calcium 8.4 mg/dl (8.6-10.3); Creatinine Clr Calc Pharmacy 36.7 ml/min; Est GFR (African American) 27.7 ml/min; Est GFR (Non-African American) 23.9 ml/min; Magnesium 2.2 mg/dl (1.7-2.4); Potassium 5.1 mmol/L (3.5-5.1)
--- NOTE | 2023-07-30 09:06 | Orthopedic Progress Note ---
Date of Service July 30, 2023 Assessment & Plan Admission and Anticipated Discharge Date Admission Date: July 28, 2023 Orthopedic Progress Note Reports having some ongoing right hip pain. She had this before but its gotten worse since her fall. This precluded her from participating in therapy yesterday. Her right foot and leg still bother her. She is working on bed mobility. She can wiggle her toes and flex and extend the ankle. There is bruising and swelling of the lateral right foot. She can do a leg lift bend her knee and flex her hip to almost 90 degrees. There is no significant pain to rotatory movements of the right hip. There is no pain with pressing down on her iliac crests. Her abdomen is obese. She can turn to her side in bed. There is a abrasion over the right lateral hip benign in appearance several centimeters in length. There is a significant tenderness which she is grading 10 out of 10 with palpation over the lateral aspect of the right hip. I think she likely has hip bursitis. Given the severity of her pain and the association with injury I am going to recommend that we get a CT scan of her pelvis and right hip. Order placed.
--- NOTE | 2023-07-30 10:39 | CT Scan Report ---
CT SCAN OF THE PELVIS WITHOUT IV CONTRAST; CT SCAN OF THE RIGHT HIP WITHOUT IV CONTRAST CLINICAL HISTORY: Recent fall. Right hip and pelvic pain. COMPARISON STUDY: Pelvic CT dated 06/17/2022. Radiographs of the right hip dated 07/29/2023. TECHNIQUE: CT scan of the bony pelvis is performed from the pelvic inlet to the proximal femora. [place] tionally, CT scan of the right hip is performed from the pelvis to the femoral shaft. Images for both examinations are reviewed in the axial, sagittal, and coronal planes. 3-D reformats of the hip are c reated and assessed. A dose lowering technique was utilized adhering to the principles of ALARA. The examination is degraded by large body habitus, and by streak artifact from the body wall abutting the CT gantry. CT DOSE: 1236.58 mGy.cm FINDINGS: The skeletal structures are osteopenic. There is no evidence of acute fracture involving th e hips or bony pelvis. Mild-to- moderate arthritic change and joint space narrowing is seen in the hi ps. There is mild degenerative sclerosis of the sacroiliac joints. There is no evidence of avascular necrosis of the femoral heads. No hip joint effusion is identified. No lytic or blastic lesion is see n. There is a chronic compression deformity of L4 with retropulsed fragments, unchanged from the 06/17 examination. There is generalized atrophy of the regional musculature, which appear symmetric. No soft tissue hematoma is identified. The bladder is distended but otherwise normal in appearance. T he uterus and adnexa are normal as visualized. Imaged portions of the bowel show no evidence of obstr uction. Postoperative change is seen adjacent to the cecum. No intraperitoneal free-air or free-fluid is seen in the pelvis. There is atherosclerotic calcification of the distal abdominal aorta. IMPRESSION: There is no evidence of acute fracture involving the hips or bony pelvis. ACT 112: Negative or not required by law. Dictated: 07/30/2023 10:06 AM Transcribed: 07/30/2023 10:23 AM López [id number] [email or web address] Electronically signed by: Jonah Farris M.D. 07/30/2023 10:37 AM
[2023-07-30] MEDS: SODIUM CHLORIDE 0.9% 1,000 ML IV SCH (11:22)
--- NOTE | 2023-07-30 12:43 | Hospitalist Progress Note ---
Date of Service July 30, 2023 Assessment & Plan (1) Closed fracture of proximal end of right fibula: (2) Metatarsal bone fracture: (3) Fall: Plan: Patient is 68 year old female with PMH CAD, PAF s/p watchman in 2022, HTN, HLD, severe aortic stenosis, chronic anemia, CKD III, anxiety, depression, obesity, bullous pemphigoid, and others listed below presented to ER with complaint of fall and right leg pain today after walking and feeling dizzy and "leg shakin ess". Denies syncope, LOC, hitting head or CP. Chronic exertional SOB and dizziness with known severe aortic stenosis. Right knee x-ray, Tib/fib xray: Mildly displaced oblique fracture within the nec k of the right fibula. Right foot xray: Acute to subacute appearing nondisplaced fracture involves the distal fifth metatarsal. Subacute to chronic nondisplaced fracture within the base of the fifth metatarsal which is partially united. EKG sinus bradycardia without significant ST changes ?If fall cardiac in nature with history symptomatic In ER given Dilaudid 0.5mg with relief of pain Scheduled Tylenol, oxycodone prn pain Splint RLE Will make non-weight bearing right leg pending further recommendations by ortho Appreciate Ortho input and recommendation Complains of pain in the right hip-right hip x-ray all unremarkable for any fracture Will continue with PT and OT Pain in the right hip and right side of the pelvis X-ray of the right hip did not show any significant findings CT scan of the right hip and pelvis did not show any significant abnormalities and no fracture Will continue intravenous Tylenol for pain control Avoid any narcotics due to low blood pressure Hypotension Noted to have significant hypotension this morning Advised to drink little bit more fluid Will try to continue with the beta-kristofer Avoid any intravenous fluid given the history of severe aortic stenosis Try to decrease the use of IV narcotic pain medications as that can drop the blood pressure Will give intravenous Tylenol for better pain control Blood pressure has been running low and the beta-kristofer is on hold now Systolic blood pressure noted to be 80s-will try 1 L of normal saline infusion Will discuss with terra cotta mold maker for any other suggestion (4) Severe aortic stenosis: Plan: Chronic exertional SOB and dizziness with known severe aortic stenosis. 05/16/23 Echo: EF: 55-59%, severe Is scheduled to see interventional cardiology at [facility] [place] cardiac cath and consideration of TAVR Appears euvolemic currently Cardiology consult-appreciate cardiology input and recommendation Strongly advised to continue with outpatient procedure and cardiac testing Cautious amount of IV fluid given the history of aortic stenosis Will limit the infusion to 1 L (5) Chronic anemia: Plan: Hgb: 8.7. Was 8.9 on 03/31/23, 04/28/23 Monitor H&H (6) Stage 3 chronic kidney disease: Plan: Cr: 1.7. Baseline Cr: 1.5-1.6 Monitor renal functions (7) CAD (coronary artery disease): Plan: Cardiac cath 2016 with moderate diffuse irregularities Denies CP Continue aspirin, atorvastatin, metoprolol succinate, lisinopril (8) Paroxysmal atrial fibrillation: Plan: S/P Watchman 2022 Current sinus rhythm (9) Dyslipidemia: Plan: Continue atorvastatin (10) Hypertension: Plan: Continue lisinopril, metoprolol succinate (11) Anxiety and depression: Plan: Continue duloxetine, buspirone (12) Bullous pemphigoid: Plan: On Dupixent Follows with dermatology Morbidly obese BMI: 47 DVT Prophylaxis Heparin SQ Full Code as per discussion with pt Follows with Dr Plascencia for routine care Admission and Anticipated Discharge Date Admission Date: July 28, 2023 Subjective 07/29/2023 The patient was seen and examined in medical telemetry unit She has been complaining of pain in the right leg and also right Noted to have low blood pressure during physical therapy Denies any chest pain and/or palpitation 07/30/2023 The patient was seen and examined in medical telemetry unit She has been running low blood pressures since this morning Feels dizzy with sitting Beta-kristofer has been on hold Complains of pain in the right hip and also right pelvis Review of Systems Review of Systems: All systems reviewed and are unremarkable except as noted below Physical Exam Physical Exam: Lying in bed with acute distress due to pain in the right lower extremity Constitutional: well developed, well nourished, + ill appearing and + morbidly obese Eyes: PERRL, conjunctivae normal, anicteric sclerae ENMT: external ear and nose normal, oropharynx normal Neck: trachea midline, no thyromegaly Respiratory: no respiratory distress Auscultation: lungs clear to auscultation bilaterally and + diminished lung sounds Cardiovascular: Rate/Rhythm: regular rate and regular rhythm; not tachycardic Heart Sounds: normal S1, normal S2 and + murmur (3/6 ESM over aortic area) Extremities: + edema (Trace edema bilaterally) Gastrointestinal (Abdomen): Inspection/Auscultation: normal bowel sounds; abdomen not distended Percussion/Palpation: abdomen soft; abdomen nontender Neurologic: normal touch/pain/proprioception and moves all extremities Lymphatic: no cervical or axillary lymphadenopathy Results & Data Results & Data Vital Signs (Past 12 Hours) Vital Signs Temp Pulse Pulse Resp BP Pulse Ox O2 Del Method 07/30/23 11:17 36.2 C L 61 20 82/48 L 90 Room Air 07/30/23 08:15 Room Air 07/30/23 07:19 36.4 C L 59 L 20 97/66 L 96 Room Air 07/30/23 07:11 66 07/30/23 04:38 36.3 C L 70 20 95/60 L 95 Room Air Laboratory Results Short CBC 07/30/23 Range/Units 05:16 WBC 5.84 (4.8-10.8) K/ul Hgb 8.1 L (12.0-16.0) g/dl Hct 28.2 L (37.0-47.0) % Plt Count 130 (130-400) K/uL BMP 07/30/23 05:16 Sodium 140 Potassium 5.1 Chloride 109 H Carbon Dioxide 24 BUN 51 H Creatinine 2.10 H D Glucose 92 Calcium 8.4 L Medications Administered Current Inpatient Medications Acetaminophen (Acetaminophen 500 Mg Tab) 1,000 mg PO Q8H PRN PRN Reason: Pain or Fever Stop: 08/28/23 12:48 Last Admin: 07/30/23 05:32 Dose: 1,000 mg Ascorbic Acid (Ascorbic Acid 500 Mg Tab) 250 mg PO QAM [facility] Stop: 08/28/23 08:59 Last Admin: 07/30/23 08:10 Dose: 250 mg Aspirin (Aspirin 81 Mg Ectab) 81 mg PO DAILY [facility]GG[facility] Stop: 08/28/23 08:59 Last Admin: 07/30/23 08:10 Dose: 81 mg Atorvastatin Calcium (Atorvastatin 40 Mg Tab) 80 mg PO QPM [facility]GG[facility] Stop: 08/27/23 20:59 Last Admin: 07/29/23 20:27 Dose: 80 mg Buspirone HCl (Buspirone 5 Mg Tab) 10 mg PO BID [facility]GG[facility] Stop: 08/27/23 20:59 Last Admin: 07/30/23 08:10 Dose: 10 mg Clotrimazole (Clotrimazole 1% Cr 15 Gm Tube) 1 appln TOP BID PRN PRN Reason: Itching Stop: 08/27/23 14:04 Cyanocobalamin (Cyanocobalamin (B-12) 500 Mcg Tablet) 1,000 mcg PO QAM [facility]GG[facility] Stop: 08/28/23 08:59 Last Admin: 07/30/23 08:10 Dose: 1,000 mcg Diphenhydramine HCl (Diphenhydramine Capsule 25 Mg Cap) 25 mg PO QAM [facility] Stop: 08/28/23 08:59 Last Admin: 07/30/23 08:10 Dose: 25 mg Docusate Sodium (Docusate Sodium 100 Mg Cap) 100 mg PO BID PEGGY Stop: 08/27/23 20:59 Last Admin: 07/30/23 08:09 Dose: 100 mg Doxepin HCl (Doxepin Hcl 25 Mg Capsule) 25 mg PO HS [facility] Stop: 08/27/23 20:59 Last Admin: 07/29/23 20:27 Dose: 25 mg Duloxetine HCl (Duloxetine Hcl 60 Mg Cap) 120 mg PO DAILY PEGGY Stop: 08/28/23 08:59 Last Admin: 07/30/23 08:10 Dose: 120 mg Folic Acid (Folic Acid 400 Mcg Tab) 800 mcg PO QAM [facility] Stop: 08/28/23 08:59 Last Admin: 07/30/23 08:10 Dose: 800 mcg Heparin Sodium (Porcine) (Heparin Sod 5,000 Unit/0.5 Ml Vial) 7,500 units SQ Q12 [facility] Stop: 08/27/23 20:59 Last Admin: 07/30/23 08:09 Dose: 7,500 units Acetaminophen (Ofirmev) 1,000 mg in 100 mls @ 400 mls/hr IV Q8H PRN PRN Reason: Pain Stop: 08/01/23 12:27 Last Infusion: 07/30/23 11:49 Dose: Infused Sodium Chloride (Nss) 1,000 mls @ 125 mls/hr IV .Q8H PEGGY Stop: 07/30/23 19:14 Last Admin: 07/30/23 11:22 Dose: 125 mls/hr Lisinopril (Lisinopril 2.5 Mg Tab) 2.5 mg PO HS [facility] Stop: 08/28/23 20:59 Last Admin: 07/29/23 20:28 Dose: 2.5 mg Memantine (Memantine Hcl 10 Mg Tab) 10 mg PO BID [facility] Stop: 08/27/23 20:59 Last Admin: 07/30/23 08:09 Dose: 10 mg Metoprolol Succinate (Metoprolol Succ 25mg Ext Rel Tab) 25 mg PO BID [facility] Stop: 08/27/23 20:59 Last Admin: 07/30/23 08:09 Dose: Not Given Miconazole Nitrate (Miconazole Nitrate Powder 85 Gm) 1 appln EXT PRN PRN PRN Reason: skin rash Stop: 08/27/23 14:04 Last Admin: 07/29/23 09:26 Dose: 1 appln Ondansetron HCl (Ondansetron Inj 2 Mg/Ml 2 Ml Vial) 4 mg IV Q6H PRN PRN Reason: Nausea Stop: 08/27/23 14:04 Oxybutynin Chloride (Oxybutynin Chloride Xl 5 Mg Tabcr) 5 mg PO QPM [facility] Stop: 08/27/23 20:59 Last Admin: 07/29/23 20:27 Dose: 5 mg Oxycodone HCl (Oxycodone Hcl Ir 5 Mg Tab (Immediate Release)) 5 mg PO Q6H PRN PRN Reason: Mod-Sev Pain (Scale 4-10) Stop: 08/11/23 14:04 Last Admin: 07/30/23 05:32 Dose: 5 mg Polyethylene Glycol (Polyethylene (Miralax) 17 Gm Pack) 17 gm PO DAILY PRN PRN Reason: Constipation Stop: 08/27/23 14:04 Last Admin: 07/29/23 06:20 Dose: 17 gm Pregabalin (Pregabalin 150 Mg Cap) 150 mg PO TID [facility] Stop: 08/27/23 14:29 Last Admin: 07/30/23 08:12 Dose: 150 mg Sodium Chloride (Sodium Chloride 0.65% Na Soln 45 Ml ([place])) 2 sprays NA Q6H PRN PRN Reason: Nasal Congestion Stop: 08/27/23 14:04 Tamsulosin HCl (Tamsulosin Hcl 0.4 Mg Cap) 0.4 mg PO DAILY [facility] Stop: 08/28/23 08:59 Last Admin: 07/30/23 08:10 Dose: 0.4 mg Vitamin D (Cholecalciferol 25 Mcg (1000 Units) Tab) 25 mcg PO QAM [facility] Stop: 08/28/23 08:59 Last Admin: 07/30/23 08:10 Dose: 25 mcg (6) Stage 3 chronic kidney disease Chronic kidney disease stage 3 subtype: unspecified whether 3a or 3b Qualified Code(s): N18.30 - Chronic kidney disease, stage 3 unspecified (7) CAD (coronary artery disease) Coronary Disease-Associated Artery/Lesion type: [place] artery [place] vs. transplanted heart: [place] heart Associated angina: without angina Qualified Code(s): I25.10 - Atherosclerotic heart disease of [place] coronary artery without angina pectoris (10) Hypertension Hypertension type: primary hypertension Qualified Code(s): I10 - Essential (primary) hypertension
--- NOTE | 2023-07-30 14:16 | Cardiology Progress Note ---
<Statement entered by Justine Arguello MD - 07/30/23 18:08> I have reviewed the advanced practitioner's documentation on the date of service referenced in note, and I agree with, and take responsibility for the plan of care. 68-year-old with coronary artery disease paroxysmal atrial fibrillation with severe arctic valve stenosis presented with fall and fracture of fibula. Reported dizziness and hypotension in the morning Her blood pressure has improved. can give 500 mL of IV fluids and then discontinue. With severe aortic valve stenosis risk of volume overload I spent a total of [15] minutes coordinating, documenting, and providing care for this patient excluding time spent in the performance of separately billed services or time spent by another provider. Date of Service July 30, 2023 Assessment & Plan (1) Hypotension: (2) Orthostatic hypotension: (3) Severe aortic stenosis: (4) Fall: (5) Paroxysmal atrial fibrillation: (6) Presence of Watchman left atrial appendage closure device: (7) CAD (coronary artery disease): Plan 68-year-old female with known severe aortic valve stenosis with outpatient workup scheduled to be performed at [facility] [place] next week admitted post mechanical fall with resultant proximal right fibular fracture and metatarsal fracture. No overt syncope. Blood pressures have been labile during hospitalization, currently hypotensive in the 80's. Recommendations: 1. IV fluid resuscitation x 1 L 2. Discontinue lisinopril 3. Discontinue tamsulosin 4. Continue metoprolol succinate, ASA, and statin. I spent a total of 27 minutes on the date of service in preparation, delivery, and documentation of the care provided to this patient excluding any time spent in the performance of separately billed services. This visit was a split-shared visit with the substantive portion of the medical decision making performed by the supervising spine nurse/billing provider. Admission and Anticipated Discharge Date Admission Date: July 28, 2023 Subjective Patient seen and examined. Chart, medications, telemetry reviewed. Feeling okay. Dizzy with positional changes. SBP in the 80's, currently receiving IV fluid resuscitation at 125 mg/hr x 1 L No chest pain. No palpitations. No dyspnea. No orthopnea, PND, or peripheral edema. Telemetry: Sinus rhythm in the 60s. Review of Systems Review of Systems: Complete Review of Systems is as stated above, negative, or noncontributory. Physical Exam Physical Exam: General: A&Ox3. NAD. HENT: Normocephalic. Atraumatic. Eyes: PER. Conjunctiva pink, sclera clear. Neck: No JVD. Heart: RRR. Grade II/ systolic murmur. No diastolic murmur. Lungs: Clear to auscultation Abdomen: +BS. Soft. Nontender. No masses or organomegaly. Extremities: No clubbing, cyanosis, or significant edema. Limited neurological examination is without focal deficits. Pulses: radial=2/4, posterior tibial=1/4. Results & Data Vital Signs (Past 12 Hours) Vital Signs Temp Pulse Pulse Resp BP Pulse Ox O2 Del Method 07/30/23 11:17 36.2 C L 61 20 82/48 L 90 Room Air 07/30/23 08:15 Room Air 07/30/23 07:19 36.4 C L 59 L 20 97/66 L 96 Room Air 07/30/23 07:11 66 07/30/23 04:38 36.3 C L 70 20 95/60 L 95 Room Air Laboratory Results CBC 07/30/23 Range/Units 05:16 WBC 5.84 (4.8-10.8) K/ul RBC 3.33 L (4.20-5.40) M/uL Hgb 8.1 L (12.0-16.0) g/dl Hct 28.2 L (37.0-47.0) % Plt Count 130 (130-400) K/uL Neut # (Auto) 2.28 (1.40-6.50) K/uL Lymph # (Auto) 2.27 (1.20-3.40) K/uL [place] # (Auto) 0.86 H (0.11-0.59) K/uL Eos # (Auto) 0.37 (0.00-0.50) K/uL Baso # (Auto) 0.04 (0.00-0.20) K/uL Comprehensive Metabolic Panel 07/30/23 Range/Units 05:16 Sodium 140 (136-145) mmol/L Potassium 5.1 (3.5-5.1) mmol/L Chloride 109 H (98-107) mmol/L Carbon Dioxide 24 (21-32) mmol/L BUN 51 H (6-23) mg/dl Creatinine 2.10 H D (0.6-1.2) mg/dl Glucose 92 (70-99(Fasting)) mg/dl Calcium 8.4 L (8.6-10.3) mg/dl Intake and Output 07/29/23 07/30/23 07/30/23 22:59 06:59 14:59 Intake Total 200 / 1000 100 / 1000 262.5 / 262.5 Balance 200 / 1000 100 / 1000 262.5 / 262.5 Intake: IV 262.5 / 262.5 Acetaminophen 1,000 mg In 100 100 / 100 ml @ 400 mls/hr IV Q8H PRN Rx#: [id number] Sodium Chloride 0.9% 1,000 ml @ 162.5 / 162.5 125 mls/hr IV .Q8H PEGGY Rx#: [id number] Oral 200 / 900 100 / 900 Other: Weight 131.6 kg Weight Measurement Method Built in [facility] Diagnostic Findings Telemetry: Sinus in the 60's. (4) Fall Encounter type: initial encounter Qualified Code(s): W19.XXXA - Unspecified fall, initial encounter (7) CAD (coronary artery disease) Coronary Disease-Associated Artery/Lesion type: [place] artery [place] vs. transplanted heart: [place] heart Associated angina: without angina Qualified Code(s): I25.10 - Atherosclerotic heart disease of [place] coronary artery without angina pectoris
--- NOTE | 2023-07-31 11:05 | Orthopedic Progress Note ---
Date of Service July 31, 2023 Assessment & Plan Admission and Anticipated Discharge Date Admission Date: July 28, 2023 Orthopedic Progress Note Still having difficulty getting up. Seems to be pain in the right hip area. X- rays of right hip were negative. CT of the right hip and pelvis were also negative. Her exam today is consistent with right hip trochanteric bursitis. There is a several centimeter healing skin abrasion just distal to the right greater trochanter. Healing, inflamed not infected. There is another 1 just proximal. Benign in appearance. Point tenderness over the right lateral hip. She is offered an injection and agreed to proceed. A preprocedural timeout was performed. I marked the procedure site with my initials. We talked about risks benefits treatment options. I reviewed expectations regarding the shot. It may hurt worse temporarily. It may not work. It might work wear off. It could take a week or more to notice a difference. I reviewed her allergies. She has had prior cortisone shots. 40 mg of triamcinolone was then injected into the right hip greater trochanter bursa using an 18-gauge spinal needle. Double prep with alcohol and Betadine. No bleeding. The injection was done away from the after mentioned skin wounds.
--- NOTE | 2023-07-31 11:34 | Electrocardiogram Report ---
Test Reason : Blood Pressure : / mmHG Vent. Rate : 067 BPM Atrial Rate : 067 BPM P-R Int : 182 ms QRS Dur : 078 ms QT Int : 386 ms P-R-T Axes : 045 -12 036 degrees QTc Int : 407 ms Sinus rhythm with Premature atrial complexes Otherwise normal ECG When compared with ECG of 28-JUL-2023 15:44, Premature atrial complexes are now Present Confirmed by Reinaldo Bermeo ([id number]) on 07/31/2023 11:34:17 AM Referred By: REFERRED SELF Confirmed By:Chucho Bermeo
[2023-07-31] MEDS: LIDOCAINE 1% LOCAL 20 ML VIAL INJ ONE (11:45)
[2023-07-31] MEDS: TRIAMCINOLONE ACET 40 MG/ML VIAL IA ONE (11:45)
--- NOTE | 2023-07-31 12:15 | Hospitalist Progress Note ---
Date of Service July 31, 2023 Assessment & Plan (1) Closed fracture of proximal end of right fibula: Plan: As below (2) Metatarsal bone fracture: Plan: As below (3) Fall: Plan: Patient is 68 year old female with PMH CAD, PAF s/p watchman in 2022, HTN, HLD, severe aortic stenosis, chronic anemia, CKD III, anxiety, depression, obesity, bullous pemphigoid, and others listed below presented to ER with complaint of fall and right leg pain today after walking and feeling dizzy and "leg shakiness". Denies syncope, LOC, hitting head or CP. Chronic exertional SOB and dizziness with known severe aortic stenosis. Right knee x-ray, Tib/fib xray: Mildly displaced oblique fracture within the neck of the right fibula. Right foot xray: Acute to subacute appearing nondisplaced fracture involves the distal fifth metatarsal. Subacute to chronic nondisplaced fracture within the base of the fifth metatarsal which is partially united. EKG sinus bradycardia without significant ST changes ?If fall cardiac in nature with history symptomatic In ER given Dilaudid 0.5mg with relief of pain Scheduled Tylenol, oxycodone prn pain Splint RLE Will make non-weight bearing right leg pending further recommendations by ortho Appreciate Ortho input and recommendation Complains of pain in the right hip-right hip x-ray all unremarkable for any fracture Will continue with PT and OT Difficult to do PT and OT due to postural hypotension with symptoms-will continue Pain in the right hip and right side of the pelvis X-ray of the right hip did not show any significant findings CT scan of the right hip and pelvis did not show any significant abnormalities and no fracture Will continue intravenous Tylenol for pain control Avoid any narcotics due to low blood pressure Status post steroid injection in greater trochanteric bursa by the Ortho today Hypotension Noted to have significant hypotension this morning Advised to drink little bit more fluid Will try to continue with the beta-kristofer Avoid any intravenous fluid given the history of severe aortic stenosis Try to decrease the use of IV narcotic pain medications as that can drop the blood pressure Will give intravenous Tylenol for better pain control Blood pressure has been running low and the beta-kristofer is on hold now Systolic blood pressure noted to be 80s-will try 1 L of normal saline infusion Will discuss with payroll manager for any other suggestion Lisinopril has been discontinued-blood pressure remains on the lower side (4) Severe aortic stenosis: Plan: Chronic exertional SOB and dizziness with known severe aortic stenosis. 05/16/23 Echo: EF: 55-59%, severe Is scheduled to see interventional cardiology at [facility] for upcoming cardiac cath and consideration of TAVR Appears euvolemic currently Cardiology consult-appreciate cardiology input and recommendation Strongly advised to continue with outpatient procedure and cardiac testing Cautious amount of IV fluid given the history of aortic stenosis Will limit the infusion to 1 L Has been having chest pain with the straining likely secondary to aortic stenosis Will avoid any narcotics and/or nitro to avoid further hypotension (5) Chronic anemia: Plan: Hgb: 8.7. Was 8.9 on 03/31/23, 04/28/23 Monitor H&H (6) Stage 3 chronic kidney disease: Plan: Cr: 1.7. Baseline Cr: 1.5-1.6 Monitor renal functions (7) CAD (coronary artery disease): Plan: Cardiac cath 2016 with moderate diffuse irregularities Denies CP Continue aspirin, atorvastatin, metoprolol succinate, lisinopril (8) Paroxysmal atrial fibrillation: Plan: S/P Watchman 2022 Current sinus rhythm (9) Dyslipidemia: Plan: Continue atorvastatin (10) Hypertension: Plan: Continue lisinopril, metoprolol succinate (11) Anxiety and depression: Plan: Continue duloxetine, buspirone (12) Bullous pemphigoid: Plan: On Dupixent Follows with dermatology Morbidly obese BMI: 47 DVT Prophylaxis Heparin SQ Full Code as per discussion with pt Follows with Dr Plascencia for routine care Admission and Anticipated Discharge Date Admission Date: July 28, 2023 Subjective 07/29/2023 The patient was seen and examined in medical telemetry unit She has been complaining of pain in the right leg and also right Noted to have low blood pressure during physical therapy Denies any chest pain and/or palpitation 07/30/2023 The patient was seen and examined in medical telemetry unit She has been running low blood pressures since this morning Feels dizzy with sitting Beta-kristofer has been on hold Complains of pain in the right hip and also right pelvis 07/31/2023 The patient was seen and examined in medical telemetry unit She has had chest pain following straining at the stool and urinating EKG did not show any change and noted to have low saturation but that improved with O2 administration at 3 L Chest x-ray awaited Review of Systems Review of Systems: All systems reviewed and are unremarkable except as noted below Physical Exam Physical Exam: Lying in bed with acute distress due to pain in the right lower extremity Constitutional: well developed, well nourished, + ill appearing and + morbidly obese Eyes: PERRL, conjunctivae normal, anicteric sclerae ENMT: external ear and nose normal, oropharynx normal Neck: trachea midline, no thyromegaly Respiratory: no respiratory distress Auscultation: lungs clear to auscultation bilaterally and + diminished lung sounds Cardiovascular: Rate/Rhythm: regular rate and regular rhythm; not tachycardic Heart Sounds: normal S1, normal S2 and + murmur (3/6 ESM over aortic area) Extremities: + edema (Trace edema bilaterally) Gastrointestinal (Abdomen): Inspection/Auscultation: normal bowel sounds; abdomen not distended Percussion/Palpation: abdomen soft; abdomen nontender Musculoskeletal: Still has pain in the right hip with movement of the right lower extremity Neurologic: normal touch/pain/proprioception and moves all extremities Lymphatic: no cervical or axillary lymphadenopathy Results & Data Results & Data Vital Signs (Past 12 Hours) Vital Signs Temp Pulse Pulse Resp BP Pulse Ox O2 Del Method 07/31/23 11:37 36.5 C 64 20 87/59 L 98 Nasal Cannula 07/31/23 11:06 64 07/31/23 07:52 Room Air 07/31/23 07:40 36.3 C L 65 20 107/73 96 Room Air 07/31/23 03:12 36.3 C L 65 18 98/52 L 97 Room Air O2 Flow Rate 07/31/23 11:37 3 07/31/23 11:06 07/31/23 07:52 07/31/23 07:40 07/31/23 03:12 Medications Administered Current Inpatient Medications Acetaminophen (Acetaminophen 500 Mg Tab) 1,000 mg PO Q8H PRN PRN Reason: Pain or Fever Stop: 08/28/23 12:48 Last Admin: 07/30/23 05:32 Dose: 1,000 mg Ascorbic Acid (Ascorbic Acid 500 Mg Tab) 250 mg PO QAM [facility] Stop: 08/28/23 08:59 Last Admin: 07/31/23 09:27 Dose: 250 mg Aspirin (Aspirin 81 Mg Ectab) 81 mg PO DAILY [facility] Stop: 08/28/23 08:59 Last Admin: 07/31/23 09:27 Dose: 81 mg Atorvastatin Calcium (Atorvastatin 40 Mg Tab) 80 mg PO QPM [facility] Stop: 08/27/23 20:59 Last Admin: 07/30/23 20:27 Dose: 80 mg Buspirone HCl (Buspirone 5 Mg Tab) 10 mg PO BID [facility] Stop: 08/27/23 20:59 Last Admin: 07/31/23 09:27 Dose: 10 mg Clotrimazole (Clotrimazole 1% Cr 15 Gm Tube) 1 appln TOP BID PRN PRN Reason: Itching Stop: 08/27/23 14:04 Cyanocobalamin (Cyanocobalamin (B-12) 500 Mcg Tablet) 1,000 mcg PO QAM [facility] Stop: 08/28/23 08:59 Last Admin: 07/31/23 09:28 Dose: 1,000 mcg Diphenhydramine HCl (Diphenhydramine Capsule 25 Mg Cap) 25 mg PO QAM [facility] Stop: 08/28/23 08:59 Last Admin: 07/31/23 09:28 Dose: 25 mg Docusate Sodium (Docusate Sodium 100 Mg Cap) 100 mg PO BID [facility] Stop: 08/27/23 20:59 Last Admin: 07/31/23 09:28 Dose: 100 mg Doxepin HCl (Doxepin Hcl 25 Mg Capsule) 25 mg PO HS [facility] Stop: 08/27/23 20:59 Last Admin: 07/30/23 20:28 Dose: 25 mg Duloxetine HCl (Duloxetine Hcl 60 Mg Cap) 120 mg PO DAILY [facility] Stop: 08/28/23 08:59 Last Admin: 07/31/23 09:28 Dose: 120 mg Folic Acid (Folic Acid 400 Mcg Tab) 800 mcg PO QAM [facility] Stop: 08/28/23 08:59 Last Admin: 07/31/23 09:29 Dose: 800 mcg Heparin Sodium (Porcine) (Heparin Sod 5,000 Unit/0.5 Ml Vial) 7,500 units SQ Q12 [facility] Stop: 08/27/23 20:59 Last Admin: 07/31/23 09:29 Dose: 7,500 units Acetaminophen (Ofirmev) 1,000 mg in 100 mls @ 400 mls/hr IV Q8H PRN PRN Reason: Pain Stop: 08/01/23 12:27 Last Infusion: 07/30/23 21:02 Dose: Infused Memantine (Memantine Hcl 10 Mg Tab) 10 mg PO BID [facility] Stop: 08/27/23 20:59 Last Admin: 07/31/23 09:29 Dose: 10 mg Metoprolol Succinate (Metoprolol Succ 25mg Ext Rel Tab) 25 mg PO BID [facility] Stop: 08/27/23 20:59 Last Admin: 07/31/23 09:30 Dose: 25 mg Miconazole Nitrate (Miconazole Nitrate Powder 85 Gm) 1 appln EXT PRN PRN PRN Reason: skin rash Stop: 08/27/23 14:04 Last Admin: 07/30/23 14:02 Dose: 1 appln Ondansetron HCl (Ondansetron Inj 2 Mg/Ml 2 Ml Vial) 4 mg IV Q6H PRN PRN Reason: Nausea Stop: 08/27/23 14:04 Oxybutynin Chloride (Oxybutynin Chloride Xl 5 Mg Tabcr) 5 mg PO QPM [facility] Stop: 08/27/23 20:59 Last Admin: 07/30/23 20:26 Dose: 5 mg Oxycodone HCl (Oxycodone Hcl Ir 5 Mg Tab (Immediate Release)) 5 mg PO Q6H PRN PRN Reason: Mod-Sev Pain (Scale 4-10) Stop: 08/11/23 14:04 Last Admin: 07/31/23 09:27 Dose: 5 mg Polyethylene Glycol (Polyethylene (Miralax) 17 Gm Pack) 17 gm PO DAILY PRN PRN Reason: Constipation Stop: 08/27/23 14:04 Last Admin: 07/29/23 06:20 Dose: 17 gm Pregabalin (Pregabalin 150 Mg Cap) 150 mg PO TID [facility] Stop: 08/27/23 14:29 Last Admin: 07/31/23 09:40 Dose: 150 mg Sodium Chloride (Sodium Chloride 0.65% Na Soln 45 Ml ([place])) 2 sprays NA Q6H PRN PRN Reason: Nasal Congestion Stop: 08/27/23 14:04 Vitamin D (Cholecalciferol 25 Mcg (1000 Units) Tab) 25 mcg PO QAM [facility] Stop: 08/28/23 08:59 Last Admin: 07/31/23 09:28 Dose: 25 mcg (6) Stage 3 chronic kidney disease Chronic kidney disease stage 3 subtype: unspecified whether 3a or 3b Qualified Code(s): N18.30 - Chronic kidney disease, stage 3 unspecified (7) CAD (coronary artery disease) Coronary Disease-Associated Artery/Lesion type: [place] artery [place] vs. transplanted heart: [place] heart Associated angina: without angina Qualified Code(s): I25.10 - Atherosclerotic heart disease of [place] coronary artery wit hout angina pectoris (10) Hypertension Hypertension type: primary hypertension Qualified Code(s): I10 - Essential (primary) hypertension
--- NOTE | 2023-07-31 15:07 | Cardiology Progress Note ---
Date of Service July 31, 2023 Assessment & Plan (1) Hypotension: (2) Orthostatic hypotension: (3) Severe aortic stenosis: (4) Fall: (5) Paroxysmal atrial fibrillation: (6) Presence of Watchman left atrial appendage closure device: (7) CAD (coronary artery disease): Plan 68-year-old female with known severe aortic valve stenosis with outpatient workup scheduled to be performed at [facility] next week admitted post mechanical fall with resultant proximal right fibular fracture and metatarsal fracture. No overt syncope. Blood pressures have been labile during hospitalization, currently hypotensive in the 80's. 07/31/23: patient continues to show improvement in her fluid status. No I and O's entered in the record to compare. -Remains hypotensive with systolic BP in the 80's.-110 systolic. Asymptomatic. -Continue Toprol xl -Continue ASA 81mg and Atorvastatin 80mg -PT referral when ok with ortho if not already in place -Will continue to monitor Case has been discussed with Dr. Torres Further recommendations regarding plan of care as per his assessment. I spent a total of 30 minutes on the date of service in preparation, delivery, documentation of the care provided to the patient excluding any time spent in the performance of separately billed services. [employer] [facility] Admission and Anticipated Discharge Date Admission Date: July 28, 2023 Supervising Physician Co-Signing Physician Notes I have personally performed a history and physical examination on the patient.I have reviewed the advance practitioner's documentation, and I agree with, and take responsibility for the plan of care. 68-year-old female admitted with mechanical fall and fibular fracture. Cardiovascular issues include paroxysmal atrial fibrillation status post Watchman device implantation 2022, nonobstructive coronary disease, and severe aortic stenosis. Hospital course complicated by labile blood pressure and symptomatic hypotension. Lisinopril and Flomax discontinued. Continue current medications including Toprol-XL, atorvastatin, and low-dose aspirin. I spent a total of 20 minutes on the date of service in preparation, delivery, and documentation of the care provided to this patient, excluding any time spent in the performance of separately billed services. Subjective 07/31/23: Patient seen and examined in follow up today. Feeling well overall. Denies any new cardiac concerns. Complains of ongoing constipation. No chest pain, pressure, palpitations. Labs, vitals, diagnostics, telemetry and documentation reviewed. Telemetry reviewed showing SR with PAC, Rates 60-70's with no acute events overnight. Review of Systems Review of Systems: All systems reviewed & are unremarkable except as noted in HPI & below Physical Exam Constitutional: WD/WN, vitals as above + obese; no acute distress and not ill appearing Neck: normal visual inspection and trachea midline Respiratory: no cough Auscultation: lungs clear to auscultation bilaterally, + diminished lung sounds (bilateral bases ) and + wheezes (exp wheezes right lower lobe, mid lobe); no crackles, no rales and no rhonchi Cardiovascular: Rate/Rhythm: regular rate and regular rhythm Heart Sounds: normal S1, normal S2 and + murmur (+2/6 systolic ) Vessels: no JVD Extremities: + edema (Trace BLE) Skin: no rashes, warm and dry Psychiatric: A+Ox3, euthymic affect Results & Data Vital Signs (Past 12 Hours) Vital Signs Temp Pulse Pulse Resp BP Pulse Ox O2 Del Method 07/31/23 11:37 36.5 C 64 20 87/59 L 98 Nasal Cannula 07/31/23 11:06 64 07/31/23 07:52 Room Air 07/31/23 07:40 36.3 C L 65 20 107/73 96 Room Air 07/31/23 03:12 36.3 C L 65 18 98/52 L 97 Room Air O2 Flow Rate 07/31/23 11:37 3 07/31/23 11:06 07/31/23 07:52 07/31/23 07:40 07/31/23 03:12 Laboratory Results Intake and Output 07/31/23 07/31/23 07/31/23 06:59 14:59 22:59 Intake Total 200 / 1880.0 360 / 360 Balance 200 / 1880.0 360 / 360 Intake: Oral 200 / 680 360 / 360 Other: # Unmeasured Voids 3 Weight 131.4 kg Weight Measurement Method Built in [facility] (4) Fall Encounter type: initial encounter Qualified Code(s): W19.XXXA - Unspecified fall, initial encounter (7) CAD (coronary artery disease) Associated angina: without angina Coronary Disease-Associated Artery/Lesion type: [place] artery [place] vs. transplanted heart: [place] heart Qualified Code(s): I25.10 - Atherosclerotic heart disease of [place] coronary artery without angina pectoris
[2023-08-01 07:26] LABS: Basophils # (auto) 0.03 K/uL (0.00-0.20); Basophils % (auto) 0.4 %; Eosinophils # (auto) 0.05 K/uL (0.00-0.50); Eosinophils % (auto) 0.7 %; Hematocrit (blood only) 27.3 % (37.0-47.0); Hemoglobin 7.9 g/dl (12.0-16.0); Immature Granulocytes # (auto) 0.04 K/uL (0.01-0.20); Immature Granulocytes % (auto) 0.5 %; Lymphocytes # (auto) 1.23 K/uL (1.20-3.40); Lymphocytes % (auto) 16.5 %; Mean Corpuscular Hemoglobin 24.8 pg (25.0-34.0); Mean Corpuscular Hgb Conc 28.9 g/dL (32.0-36.0); Mean Corpuscular Volume 85.6 fL (80.0-100.0); Mean Platelet Volume 11.4 fL (9.4-12.4); Monocytes # (auto) 0.55 K/uL (0.11-0.59); Monocytes % (auto) 7.4 %; Neutrophils # (auto) 5.57 K/uL (1.40-6.50); Neutrophils % (auto) 74.5 %; Platelet Count 119 K/uL (130-400); RDW Coefficient of Variation 18.7 % (11.5-14.5); RDW Standard Deviation 59.4 fL (36.4-46.3); Red Blood Count 3.19 M/uL (4.20-5.40); White Blood Count 7.47 K/ul (4.8-10.8)
[2023-08-01 07:47] LABS: Polychromasia 1+
[2023-08-01 08:03] LABS: BUN Creatinine Ratio 33.6 (10-20); Calcium 8.4 mg/dl (8.6-10.3); Creatinine Clr Calc Pharmacy 36.8 ml/min; Est GFR (African American) 27.6 ml/min; Est GFR (Non-African American) 23.8 ml/min; Magnesium 2.5 mg/dl (1.7-2.4); Potassium 6.1 mmol/L (3.5-5.1)
[2023-08-01] MEDS: DEXTROSE 50% 50 ML SYRINGE IV STA (08:37)
[2023-08-01] MEDS: INSULIN HUMAN REGULAR PER UNIT 10 UNITS in SYRINGE 9.9 ML IV STA (08:37)
[2023-08-01] MEDS: MAGNESIUM HYDROXIDE SUSP 30 ML UDC PO ONE (08:37)
--- NOTE | 2023-08-01 13:48 | Hospitalist Progress Note ---
Date of Service August 01, 2023 Assessment & Plan (1) Closed fracture of proximal end of right fibula: Plan: As below (2) Metatarsal bone fracture: Plan: As below (3) Fall: Plan: Patient is 68 year old female with PMH CAD, PAF s/p watchman in 2022, HTN, HLD, severe aortic stenosis, chronic anemia, CKD III, anxiety, depression, obesity, bullous pemphigoid, and others listed below presented to ER with complaint of fall and right leg pain today after walking and feeling dizzy and "leg shakiness". Denies syncope, LOC, hitting head or CP. Chronic exertional SOB and dizziness with known severe aortic stenosis. Right knee x-ray, Tib/fib xray: Mildly displaced oblique fracture within the neck of the right fibula. Right foot xray: Acute to subacute appearing nondisplaced fracture involves the distal fifth metatarsal. Subacute to chronic nondisplaced fracture within the base of the fifth metatarsal which is partially united. EKG sinus bradycardia without significant ST changes ?If fall cardiac in nature with history symptomatic In ER given Dilaudid 0.5mg with relief of pain Scheduled Tylenol, oxycodone prn pain Splint RLE Will make non-weight bearing right leg pending further recommendations by ortho Appreciate Ortho input and recommendation Complains of pain in the right hip-right hip x-ray all unremarkable for any fracture Will continue with PT and OT-has been tolerating physical therapy from today Will need placement Pain in the right hip and right side of the pelvis X-ray of the right hip did not show any significant findings CT scan of the right hip and pelvis did not show any significant abnormalities and no fracture Will continue intravenous Tylenol for pain control Avoid any narcotics due to low blood pressure Status post steroid injection in greater trochanteric bursa by the Ortho today Hypotension Noted to have significant hypotension this morning Advised to drink little bit more fluid Will try to continue with the beta-kristofer Avoid any intravenous fluid given the history of severe aortic stenosis Try to decrease the use of IV narcotic pain medications as that can drop the blood pressure Will give intravenous Tylenol for better pain control Blood pressure has been running low and the beta-kristofer is on hold now Systolic blood pressure noted to be 80s-will try 1 L of normal saline infusion Will discuss with agricultural equipment sales manager for any other suggestion Lisinopril has been discontinued-blood pressure remains on the lower side Blood pressure remains stable at around 116/74 Will continue physical therapy (4) Severe aortic stenosis: Plan: Chronic exertional SOB and dizziness with known severe aortic stenosis. 05/16/23 Echo: EF: 55-59%, severe Is scheduled to see interventional cardiology at [facility] for upcoming cardiac cath and consideration of TAVR Appears euvolemic currently Cardiology consult-appreciate cardiology input and recommendation Strongly advised to continue with outpatient procedure and cardiac testing Cautious amount of IV fluid given the history of aortic stenosis Will limit the infusion to 1 L Has been having chest pain with the straining likely secondary to aortic stenosis Will avoid any narcotics and/or nitro to avoid further hypotension She will need to reschedule the upcoming cardiac cath which is set to be done coming Monday. (5) Chronic anemia: Plan: Hgb: 8.7. Was 8.9 on 03/31/23, 04/28/23 Monitor H&H (6) Stage 3 chronic kidney disease: Plan: Cr: 1.7. Baseline Cr: 1.5-1.6 Monitor renal functions (7) CAD (coronary artery disease): Plan: Cardiac cath 2016 with moderate diffuse irregularities Denies CP Continue aspirin, atorvastatin, metoprolol succinate, lisinopril (8) Paroxysmal atrial fibrillation: Plan: S/P Watchman 2022 Current sinus rhythm (9) Dyslipidemia: Plan: Continue atorvastatin (10) Hypertension: Plan: Continue lisinopril, metoprolol succinate (11) Anxiety and depression: Plan: Continue duloxetine, buspirone (12) Bullous pemphigoid: Plan: On Dupixent Follows with dermatology Morbidly obese BMI: 47 DVT Prophylaxis Heparin SQ Full Code as per discussion with pt Follows with Dr Plascencia for routine care Admission and Anticipated Discharge Date Admission Date: July 28, 2023 Subjective 07/29/2023 The patient was seen and examined in medical telemetry unit She has been complaining of pain in the right leg and also right Noted to have low blood pressure during physical therapy Denies any chest pain and/or palpitation 07/30/2023 The patient was seen and examined in medical telemetry unit She has been running low blood pressures since this morning Feels dizzy with sitting Beta-kristofer has been on hold Complains of pain in the right hip and also right pelvis 07/31/2023 The patient was seen and examined in medical telemetry unit She has had chest pain following straining at the stool and urinating EKG did not show any change and noted to have low saturation but that improved with O2 administration at 3 L Chest x-ray awaited 08/01/2023 The patient was seen and examined in medical telemetry unit She has been feeling much better today Did have physical therapy today without any dizziness Blood pressure is maintaining Review of Systems Review of Systems: All systems reviewed and are unremarkable except as noted below Physical Exam Physical Exam: Lying in bed with acute distress due to pain in the right lower extremity Constitutional: well developed, well nourished, + ill appearing and + morbidly obese Eyes: PERRL, conjunctivae normal, anicteric sclerae ENMT: external ear and nose normal, oropharynx normal Neck: trachea midline, no thyromegaly Respiratory: no respiratory distress Auscultation: lungs clear to auscultation bilaterally and + diminished lung sounds Cardiovascular: Rate/Rhythm: regular rate and regular rhythm; not tachycardic Heart Sounds: normal S1, normal S2 and + murmur (3/6 ESM over aortic area) Extremities: + edema (Trace edema bilaterally) Gastrointestinal (Abdomen): Inspection/Auscultation: normal bowel sounds; abdomen not distended Percussion/Palpation: abdomen soft; abdomen nontender Musculoskeletal: Ongoing pain in the right ankle and also right hip Neurologic: normal touch/pain/proprioception and moves all extremities Lymphatic: no cervical or axillary lymphadenopathy Results & Data Results & Data Vital Signs (Past 12 Hours) Vital Signs Temp Pulse Pulse Resp BP BP Pulse Ox 08/01/23 11:05 36.3 C L 63 16 116/74 98 08/01/23 10:22 08/01/23 07:11 36.4 C L 66 15 102/70 99 08/01/23 07:09 71 08/01/23 03:12 36.3 C L 65 16 101/67 97 O2 Del Method O2 Flow Rate 08/01/23 11:05 Nasal Cannula 3 08/01/23 10:22 Room Air, Nasal Cannula 1 08/01/23 07:11 Nasal Cannula 2.5 08/01/23 07:09 08/01/23 03:12 Nasal Cannula 2 Laboratory Results Short CBC 08/01/23 Range/Units 07:02 WBC 7.47 (4.8-10.8) K/ul Hgb 7.9 L (12.0-16.0) g/dl Hct 27.3 L (37.0-47.0) % Plt Count 119 L (130-400) K/uL [facility] 08/01/23 07:02 Sodium 138 Potassium 6.1 H* Chloride 113 H Carbon Dioxide 20 L BUN 71 H Creatinine 2.11 H Glucose 96 Calcium 8.4 L Medications Administered Current Inpatient Medications Acetaminophen (Acetaminophen 500 Mg Tab) 1,000 mg PO Q8H PRN PRN Reason: Pain or Fever Stop: 08/28/23 12:48 Last Admin: 07/30/23 05:32 Dose: 1,000 mg Ascorbic Acid (Ascorbic Acid 500 Mg Tab) [facility] [place]: 08/28/23 08:59 Last Admin: 08/01/23 08:46 Dose: 250 mg Aspirin (Aspirin 81 Mg Ectab) 81 mg PO DAILY [facility] Stop: 08/28/23 08:59 Last Admin: 08/01/23 08:46 Dose: 81 mg Atorvastatin Calcium (Atorvastatin 40 Mg Tab) 80 mg PO QPM [facility] Stop: 08/27/23 20:59 Last Admin: 07/31/23 20:00 Dose: 80 mg Buspirone HCl (Buspirone 5 Mg Tab) 10 mg PO BID [facility] Stop: 08/27/23 20:59 Last Admin: 08/01/23 08:45 Dose: 10 mg Clotrimazole (Clotrimazole 1% Cr 15 Gm Tube) 1 appln TOP BID PRN PRN Reason: Itching Stop: 08/27/23 14:04 Cyanocobalamin (Cyanocobalamin (B-12) 500 Mcg Tablet) 1,000 mcg [facility] [place]: 08/28/23 08:59 Last Admin: 08/01/23 08:46 Dose: 1,000 mcg Diphenhydramine HCl (Diphenhydramine Capsule 25 Mg Cap) [facility] Stop: 08/28/23 08:59 Last Admin: 08/01/23 08:44 Dose: 25 mg Docusate Sodium (Docusate Sodium 100 Mg Cap) 100 mg PO BID [facility] Stop: 08/27/23 20:59 Last Admin: 08/01/23 08:44 Dose: 100 mg Doxepin HCl (Doxepin Hcl 25 Mg Capsule) 25 mg PO HS [facility] Stop: 08/27/23 20:59 Last Admin: 07/31/23 20:00 Dose: 25 mg Duloxetine HCl (Duloxetine Hcl 60 Mg Cap) 120 mg PO DAILY [facility] Stop: 08/28/23 08:59 Last Admin: 08/01/23 08:44 Dose: 120 mg Folic Acid (Folic Acid 400 Mcg Tab) 800 mcg PO QAM [facility] Stop: 08/28/23 08:59 Last Admin: 08/01/23 08:44 Dose: 800 mcg Heparin Sodium (Porcine) (Heparin Sod 5,000 Unit/0.5 Ml Vial) 7,500 units SQ Q12 [facility] Stop: 08/27/23 20:59 Last Admin: 08/01/23 08:45 Dose: 7,500 units Memantine (Memantine Hcl 10 Mg Tab) 10 mg PO BID [facility] Stop: 08/27/23 20:59 Last Admin: 08/01/23 08:45 Dose: 10 mg Metoprolol Succinate (Metoprolol Succ 25mg Ext Rel Tab) 25 mg PO BID [facility] Stop: 08/27/23 20:59 Last Admin: 08/01/23 08:44 Dose: 25 mg Miconazole Nitrate (Miconazole Nitrate Powder 85 Gm) 1 appln EXT PRN PRN PRN Reason: skin rash Stop: 08/27/23 14:04 Last Admin: 07/30/23 14:02 Dose: 1 appln Ondansetron HCl (Ondansetron Inj 2 Mg/Ml 2 Ml Vial) 4 mg IV Q6H PRN PRN Reason: Nausea Stop: 08/27/23 14:04 Oxybutynin Chloride (Oxybutynin Chloride Xl 5 Mg Tabcr) 5 mg PO QPM [facility] Stop: 08/27/23 20:59 Last Admin: 07/31/23 19:59 Dose: 5 mg Oxycodone HCl (Oxycodone Hcl Ir 5 Mg Tab (Immediate Release)) 5 mg PO Q6H PRN PRN Reason: Mod-Sev Pain (Scale 4-10) Stop: 08/11/23 14:04 Last Admin: 07/31/23 15:51 Dose: 5 mg Polyethylene Glycol (Polyethylene (Miralax) 17 Gm Pack) 17 gm PO DAILY PRN PRN Reason: Constipation Stop: 08/27/23 14:04 Last Admin: 07/31/23 19:55 Dose: 17 gm Pregabalin (Pregabalin 150 Mg Cap) 150 mg PO TID [facility]GG[facility] Stop: 08/27/23 14:29 Last Admin: 08/01/23 08:44 Dose: 150 mg Sodium Chloride (Sodium Chloride 0.65% Na Soln 45 Ml ([place])) 2 sprays NA Q6H PRN PRN Reason: Nasal Congestion Stop: 08/27/23 14:04 Vitamin D (Cholecalciferol 25 Mcg (1000 Units) Tab) 25 mcg PO QAM [facility] Stop: 08/28/23 08:59 Last Admin: 08/01/23 08:46 Dose: 25 mcg (6) Stage 3 chronic kidney disease Chronic kidney disease stage 3 subtype: unspecified whether 3a or 3b Qualified Code(s): N18.30 - Chronic kidney disease, stage 3 unspecified (7) CAD (coronary artery disease) Coronary Disease-Associated Artery/Lesion type: [place] artery [place] vs. t ransplanted heart: [place] heart Associated angina: without angina Qualified Code(s): I25.10 - Atherosclerotic heart disease of [place] coronary artery without angina pectoris (10) Hypertension Hypertension type: primary hypertension Qualified Code(s): I10 - Essential (primary) hypertension
--- NOTE | 2023-08-01 14:36 | Cardiology Progress Note ---
Date of Service August 01, 2023 Assessment & Plan (1) Hypotension: (2) Orthostatic hypotension: (3) Severe aortic stenosis: (4) Fall: (5) Paroxysmal atrial fibrillation: (6) Presence of Watchman left atrial appendage closure device: (7) CAD (coronary artery disease): (8) Hyperkalemia: Plan 68-year-old female admitted with mechanical fall and fibular fracture. Cardiovascular issues include paroxysmal atrial fibrillation status post Watchman device implantation 2022, nonobstructive coronary disease, and severe aortic stenosis. Hospital course complicated by labile blood pressure and symptomatic hypotension. Lisinopril and Flomax discontinued. Hyperkalemia noted per a.m. labs with patient receiving IV insulin and D50.? Hemolyzed specimen. Will discuss further with internal medicine. Repeat ECG. Continue other cardiovascular medications including low-dose aspirin and atorvastatin. Monitor telemetry while hospitalized. I spent a total of 35 minutes on the date of service in preparation, delivery, and documentation of the care provided to this patient, excluding any time spent in the performance of separately billed services. Admission and Anticipated Discharge Date Admission Date: July 28, 2023 Subjective Patient seen at the bedside. Blood pressure improved. Denies chest pain, lightheadedness, or dizziness. Telemetry reveals sinus rhythm in the 60s and 70s. No significant bradycardia or pauses recorded. Hemoglobin trending down slightly to 7.9 g/dL. Review of Systems Review of Systems: All systems reviewed & are unremarkable except as noted in Subjective Physical Exam Constitutional: well nourished; no acute distress Respiratory: no respiratory distress, no labored breathing and no retractions Auscultation: no crackles, no rales, no rhonchi and no wheezes Cardiovascular: Rate/Rhythm: regular rate and regular rhythm Heart Sounds: normal S1, normal S2 (Diminished) and + murmur (3/6 late peaking medium pitched systolic ejection murmur heard best at the ) Vessels: radial pulses present; no JVD and no carotid bruit Extremities: no edema Gastrointestinal (Abdomen): Inspection/Auscultation: abdomen normal to inspection and normal bowel sounds; abdomen not distended Percussion/Palpation: abdomen soft; abdomen nontender, no guarding and abdomen not rigid Neurologic: CN's II-XI intact bilaterally and moves all extremities; no focal motor deficits Results & Data Vital Signs (Past 12 Hours) Vital Signs Temp Pulse Pulse Resp BP BP Pulse Ox 08/01/23 11:05 36.3 C L 63 16 116/74 98 08/01/23 10:22 08/01/23 07:11 36.4 C L 66 15 102/70 99 08/01/23 07:09 71 08/01/23 03:12 36.3 C L 65 16 101/67 97 O2 Del Method O2 Flow Rate 08/01/23 11:05 Nasal Cannula 3 08/01/23 10:22 Room Air, Nasal Cannula 1 08/01/23 07:11 Nasal Cannula 2.5 08/01/23 07:09 08/01/23 03:12 Nasal Cannula 2 Laboratory Results CBC 08/01/23 Range/Units 07:02 WBC 7.47 (4.8-10.8) K/ul RBC 3.19 L (4.20-5.40) M/uL Hgb 7.9 L (12.0-16.0) g/dl Hct 27.3 L (37.0-47.0) % Plt Count 119 L (130-400) K/uL Neut # (Auto) 5.57 (1.40-6.50) K/uL Lymph # (Auto) 1.23 (1.20-3.40) K/uL [place] # (Auto) 0.55 (0.11-0.59) K/uL Eos # (Auto) 0.05 (0.00-0.50) K/uL Baso # (Auto) 0.03 (0.00-0.20) K/uL Comprehensive Metabolic Panel 08/01/23 Range/Units 07:02 Sodium 138 (136-145) mmol/L Potassium 6.1 H* (3.5-5.1) mmol/L Chloride 113 H (98-107) mmol/L Carbon Dioxide 20 L (21-32) mmol/L BUN 71 H (6-23) mg/dl Creatinine 2.11 H (0.6-1.2) mg/dl Glucose 96 (70-99(Fasting)) mg/dl Calcium 8.4 L (8.6-10.3) mg/dl Intake and Output 07/31/23 08/01/23 08/01/23 22:59 06:59 14:59 Intake Total 360 / 720 400 / 400 Balance 360 / 720 400 / 400 Intake: Oral / 720 400 / 400 Other: Other Intake Source sips # Unmeasured Voids 3 2 Weight 133 kg Weight Measurement Method Built in [facility] (1) Hypotension Hypotension type: hypotension due to drug Qualified Code(s): I95.2 - Hypotension due to drugs (4) Fall Encounter type: initial encounter Qualified Code(s): W19.XXXA - Unspecified fall, initial encounter (7) CAD (coronary artery disease) Coronary Disease-Associated Artery/Lesion type: [place] artery [place] vs. transplanted heart: [place] heart Associated angina: without angina Qualified Code(s): I25.10 - Atherosclerotic heart disease of [place] coronary artery without angina pectoris
[2023-08-01 16:30] LABS: BUN Creatinine Ratio 35.5 (10-20); Calcium 8.4 mg/dl (8.6-10.3); Creatinine Clr Calc Pharmacy 39.4 ml/min; Est GFR (Non-African American) 25.8 ml/min; Potassium 6.3 mmol/L (3.5-5.1)
[2023-08-01] MEDS: SODIUM ZIRCONIUM CYCLOSILICATE 10 GM PACKET PO SCH (17:07)
--- NOTE | 2023-08-01 17:14 | Electrocardiogram Report ---
Test Reason : Blood Pressure : / mmHG Vent. Rate : 068 BPM Atrial Rate : 068 BPM P-R Int : 172 ms QRS Dur : 082 ms QT Int : 376 ms P-R-T Axes : 047 -09 049 degrees QTc Int : 399 ms Normal sinus rhythm Normal ECG When compared with ECG of 31-JUL-2023 08:24, Premature atrial complexes are no longer Present Confirmed by Reinaldo Bermeo ([id number]) on 08/01/2023 5:14:40 PM Referred By: REFERRED SELF Confirmed By:Chucho Bermeo
[2023-08-02 06:47] LABS: Basophils # (auto) 0.04 K/uL (0.00-0.20); Basophils % (auto) 0.5 %; Eosinophils # (auto) 0.18 K/uL (0.00-0.50); Eosinophils % (auto) 2.3 %; Hemoglobin 8.9 g/dl (12.0-16.0); Immature Granulocytes # (auto) 0.03 K/uL (0.01-0.20); Immature Granulocytes % (auto) 0.4 %; Lymphocytes # (auto) 1.45 K/uL (1.20-3.40); Lymphocytes % (auto) 18.4 %; Mean Corpuscular Hemoglobin 24.9 pg (25.0-34.0); Mean Corpuscular Hgb Conc 29.7 g/dL (32.0-36.0); Mean Platelet Volume 11.4 fL (9.4-12.4); Monocytes # (auto) 0.67 K/uL (0.11-0.59); Monocytes % (auto) 8.5 %; Neutrophils # (auto) 5.51 K/uL (1.40-6.50); Neutrophils % (auto) 69.9 %; Platelet Count 129 K/uL (130-400); RDW Coefficient of Variation 18.8 % (11.5-14.5); Red Blood Count 3.57 M/uL (4.20-5.40); White Blood Count 7.88 K/ul (4.8-10.8)
[2023-08-02 07:09] LABS: BUN Creatinine Ratio 42.1 (10-20); Calcium 8.9 mg/dl (8.6-10.3); Creatinine Clr Calc Pharmacy 53.6 ml/min; Est GFR (African American) 43.4 ml/min; Est GFR (Non-African American) 37.4 ml/min; Magnesium 2.6 mg/dl (1.7-2.4); Potassium 5.4 mmol/L (3.5-5.1)
--- NOTE | 2023-08-02 10:46 | Orthopedic Progress Note ---
Date of Service August 02, 2023 Assessment & Plan (1) Closed fibular fracture: Plan: Patient has a proximal right fibular fracture. We will plan to allow her out of bed, weight-bear as tolerated on the right lower extremity with the assistance of a walker. Ice and elevation as needed for swelling of the right leg. She can do full range of motion of the knee and ankle as tolerated. We will place an order for physical therapy and Occupational Therapy. She may be out of bed as tolerated with assistance. Tylenol and/or ibuprofen as needed for pain. If she remains in the hospital by the end of the week or early next week we will plan to repeat x-rays of the right tib-fib. Otherwise she can follow-up as outpatient as scheduled. Dr. Best present for today's visit (2) Metatarsal bone fracture: Plan: Weight-bear as tolerated with postop shoe. Ice and elevate as needed for pain and swelling. Use walker at all times with ambulation. PT and OT as ordered.We will follow while inpatient. If she remains in the hospital by the end of the week or early next week we will plan to repeat x-rays of the right tib-fib. Otherwise she can follow-up as outpatient as scheduled. Patient understands and agrees with the plan. Dr. Best was present for today's visit. (3) Right hip pain: Plan: Right hip x-ray, CT of pelvis has been obtained. We also did a trochanteric bursa injection of the right hip which as of yet has not provided relief. We did explain to her that this can take another 5 to 7 days to improve her hip pain. She can weight-bear as tolerated and do range of motion as tolerated for the right hip. Recommend walker at all times when out of bed with ambulation. She can ambulate with assistance as tolerated. Will follow-up as outpatient as scheduled. Admission and Anticipated Discharge Date Admission Date: July 28, 2023 Subjective Patient is resting in bed. States that she continues to have pain in her right hip and the hip injection that we gave her a few days ago did not provide any relief. She states that she has been out of bed and taking a couple steps but has not been out of bed yet today. She continues to have pain in the right hip and buttock area, right lateral leg and right foot. Physical Exam Musculoskeletal: Exam of her right lower extremity: While in bed she is actively lifting her leg and bending her knee and rolling onto her left side. No edema. Mild ecchymosis across the dorsum and lateral aspect of the right foot. Results & Data Vital Signs (Past 12 Hours) Vital Signs Temp Pulse Pulse Resp BP Pulse Ox O2 Del Method 08/02/23 08:45 66 08/02/23 08:45 Room Air 08/02/23 07:18 36.0 C L 73 18 161/82 H 98 Room Air 08/02/23 03:41 36.5 C 64 16 117/72 95 Room Air 08/02/23 00:30 78 08/01/23 23:29 36.3 C L 71 18 118/71 94 Room Air 08/01/23 22:46 Room Air (1) Closed fibular fracture Encounter type: initial encounter Fibula location: proximal Fracture morphology: unspecified fracture morphology Laterality: right Qualified Code(s): S82.831A - Other fracture of upper and lower end of right fibula, initial encounter for closed fracture
--- NOTE | 2023-08-02 19:02 | Hospitalist Progress Note ---
Date of Service August 02, 2023 Assessment & Plan (1) Closed fracture of proximal end of right fibula: Plan: As below (2) Metatarsal bone fracture: Plan: As below (3) Fall: Plan: Patient is 68 year old female with PMH CAD, PAF s/p watchman in 2022, HTN, HLD, severe aortic stenosis, chronic anemia, CKD III, anxiety, depression, obesity, bullous pemphigoid, and others listed below presented to ER with complaint of fall and right leg pain today after walking and feeling dizzy and "leg shakiness". Denies syncope, LOC, hitting head or CP. Chronic exertional SOB and dizziness with known severe aortic stenosis. Age-related osteoporosis with current pathologic fracture, R fibula neck and R distal fifth metatarsal--POA Right knee x-ray, Tib/fib xray: Mildly displaced oblique fracture within the neck of the right fibula. Right foot xray: Acute to subacute appearing nondisplaced fracture involves the distal fifth metatarsal. Subacute to chronic nondisplaced fracture within the base of the fifth metatarsal which is partially united. -S/P trochanteric bursa injection of right hip Weightbearing as tolerated on the right lower extremity with assistance of walker and postop shoe PT OT Pain control Appreciate orthopedics input Will need to repeat x-rays of right tib-fib next week Needs follow-up with orthopedics on discharge Fall precautions Will need rehab placement Hypotension Orthostatic hypotension Severe aortic stenosis Continue metoprolol with holding parameters Monitor BP Appreciate cardiology input Received IV fluids (4) Severe aortic stenosis: Plan: As per prior provider Chronic exertional SOB and dizziness with known severe aortic stenosis. 05/16/23 Echo: EF: 55-59%, severe Is scheduled to see interventional cardiology at [facility] for upcoming cardiac cath and consideration of TAVR Appears euvolemic currently Cardiology consult-appreciate cardiology input and recommendation Strongly advised to continue with outpatient procedure and cardiac testing She will need to reschedule the upcoming cardiac cath (5) Chronic anemia: Plan: No acute bleeding issues currently Monitor CBC (6) Stage 3 chronic kidney disease: Plan: EDYTA on CKD stage III Hyperkalemia Baseline Cr: 1.5-1.6 Monitor renal function Potassium levels, Cr improved Received insulin, Lokelma Low potassium diet Hold lisinopril for now Monitor (7) CAD (coronary artery disease): Plan: Cardiac cath 2016 with moderate diffuse irregularities Denies CP Continue aspirin, atorvastatin, metoprolol succinate lisinopril on hold due to EDYTA, hyperkalemia (8) Paroxysmal atrial fibrillation: Plan: S/P Watchman 2022 Current sinus rhythm Continue metoprolol (9) Dyslipidemia: Plan: Continue atorvastatin (10) Hypertension: Plan: Continue metoprolol succinate Lisinopril on hold (11) Anxiety and depression: Plan: Continue duloxetine, buspirone (12) Bullous pemphigoid: Plan: On Dupixent Follows with dermatology Morbidly obese BMI: 47 DVT Prophylaxis Heparin SQ CODE STATUS Full Code Admission and Anticipated Discharge Date Admission Date: July 28, 2023 Subjective Patient is seen and examined at bedside States having right leg/hip pain today Also reports transient nausea which are currently resolved Denies any chest pain, dyspnea, dizziness, abdominal pain No other complaints Review of Systems Review of Systems: All systems reviewed & are unremarkable except as noted in Subjective Physical Exam Physical Exam: Physical Exam: Vitals signs as noted above General Appearance:Obese, no apparent distress Head: normocephalic, Atraumatic Eyes: normal inspection, EOMI Neck: supple, Trachea midline Respiratory/Chest: Decreased breath sounds, CTA, No accessory muscle use Cardiovascular: S1, S2, +murmur Abdomen/GI:Soft, Non tender, Bowel sounds present Extremities/Musculoskeletal:normal inspection, no edema Neurologic/Psych:AAOX3, grossly no focal neurological deficits Skin: normal color, warm Results & Data Results & Data Vital Signs (Past 12 Hours) Vital Signs Temp Pulse Pulse Resp BP Pulse Ox O2 Del Method 08/02/23 15:09 36.4 C L 76 18 128/71 95 Room Air 08/02/23 14:55 72 08/02/23 11:31 36.4 C L 82 18 130/69 96 Room Air 08/02/23 08:45 66 08/02/23 08:45 Room Air 08/02/23 07:18 36.0 C L 73 18 161/82 H 98 Room Air Laboratory Results Short CBC 08/02/23 Range/Units 05:43 WBC 7.88 (4.8-10.8) K/ul Hgb 8.9 L (12.0-16.0) g/dl Hct 30.0 L (37.0-47.0) % Plt Count 129 L (130-400) K/uL BMP 08/02/23 05:43 Sodium 140 Potassium 5.4 H Chloride 110 H Carbon Dioxide 26 BUN 61 H Creatinine 1.45 H D Glucose 93 Calcium 8.9 (6) Stage 3 chronic kidney disease Chronic kidney disease stage 3 subtype: unspecified whether 3a or 3b Qualified Code(s): N18.30 - Chronic kidney disease, stage 3 unspecified (7) CAD (coronary artery disease) Coronary Disease-Associated Artery/Lesion type: [place] artery [place] vs. transplanted heart: [place] heart Associated angina: without angina Qualified Code(s): I25.10 - Atherosclerotic heart disease of [place] coronary artery without angina pectoris (10) Hypertension Hypertension type: primary hypertension Qualified Code(s): I10 - Essential (primary) hypertension
[2023-08-03 07:57] LABS: Hematocrit (blood only) 29.3 % (37.0-47.0); Hemoglobin 8.5 g/dl (12.0-16.0); Mean Corpuscular Hemoglobin 24.7 pg (25.0-34.0); Mean Corpuscular Volume 85.2 fL (80.0-100.0); Mean Platelet Volume 11.6 fL (9.4-12.4); Platelet Count 119 K/uL (130-400); RDW Coefficient of Variation 19.3 % (11.5-14.5); RDW Standard Deviation 59.6 fL (36.4-46.3); Red Blood Count 3.44 M/uL (4.20-5.40); White Blood Count 8.45 K/ul (4.8-10.8)
[2023-08-03 08:16] LABS: BUN Creatinine Ratio 41.1 (10-20); Calcium 8.6 mg/dl (8.6-10.3); Creatinine Clr Calc Pharmacy 51.6 ml/min; Est GFR (African American) 41.3 ml/min; Est GFR (Non-African American) 35.6 ml/min; Potassium 5.1 mmol/L (3.5-5.1)
--- NOTE | 2023-08-03 12:15 | Hospitalist Progress Note ---
Date of Service August 03, 2023 Assessment & Plan (1) Closed fracture of proximal end of right fibula: Plan: As below (2) Metatarsal bone fracture: Plan: As below (3) Fall: Plan: Patient is 68 year old female with PMH CAD, PAF s/p watchman in 2022, HTN, HLD, severe aortic stenosis, chronic anemia, CKD III, anxiety, depression, obesity, bullous pemphigoid, and others listed below presented to ER with complaint of fall and right leg pain today after walking and feeling dizzy and "leg shakiness". Denies syncope, LOC, hitting head or CP. Chronic exertional SOB and dizziness with known severe aortic stenosis. Age-related osteoporosis with current pathologic fracture, R fibula neck and R distal fifth metatarsal--POA Right knee x-ray, Tib/fib xray: Mildly displaced oblique fracture within the neck of the right fibula. Right foot xray: Acute to subacute appearing nondisplaced fracture involves the distal fifth metatarsal. Subacute to chronic nondisplaced fracture within the base of the fifth metatarsal which is partially united. -S/P trochanteric bursa injection of right hip Weightbearing as tolerated on the right lower extremity with assistance of walker and postop shoe PT OT Pain control Appreciate orthopedics input Will need to repeat x-rays of right tib-fib next week Needs follow-up with orthopedics on discharge Fall precautions Plan to discharge to rehab facility today Hypotension Orthostatic hypotension Severe aortic stenosis BP labile Continue metoprolol with holding parameters Appreciate cardiology input Received IV fluids Lisinopril, Flomax discontinued Blood pressure stable today (4) Severe aortic stenosis: Plan: As per prior provider Chronic exertional SOB and dizziness with known severe aortic stenosis. 05/16/23 Echo: EF: 55-59%, severe Is scheduled to see interventional cardiology at [facility] for upcoming cardiac cath and consideration of TAVR Appears euvolemic currently Cardiology consult-appreciate cardiology input and recommendation Strongly advised to continue with outpatient procedure and cardiac testing She will need to reschedule the upcoming cardiac cath (5) Chronic anemia: Plan: No acute bleeding issues currently Monitor CBC (6) Stage 3 chronic kidney disease: Plan: EDYTA on CKD stage III Hyperkalemia Baseline Cr: 1.5-1.6 Monitor renal function Potassium levels, Cr improved Received insulin, Lokelma Low potassium diet Lisinopril discontinued Hyperkalemia resolved Creatinine back to baseline Monitor (7) CAD (coronary artery disease): Plan: Cardiac cath 2016 with moderate diffuse irregularities Denies CP Continue aspirin, atorvastatin, metoprolol succinate lisinopril discontinued due to EDYTA, hyperkalemia and low BP (8) Paroxysmal atrial fibrillation: Plan: S/P Watchman 2022 Current sinus rhythm Continue metoprolol (9) Dyslipidemia: Plan: Continue atorvastatin (10) Hypertension: Plan: Continue metoprolol succinate Lisinopril discontinued (11) Anxiety and depression: Plan: Continue duloxetine, buspirone (12) Bullous pemphigoid: Plan: On Dupixent Follows with dermatology Morbidly obese BMI: 47 DVT Prophylaxis Heparin SQ CODE STATUS Full Code Disposition rehab Admission and Anticipated Discharge Date Admission Date: July 28, 2023 Subjective Patient is seen and examined at bedside Complains of right leg/hip pain No new complaints today Denies any chest pain, dyspnea, dizziness, abdominal pain Plan to be discharged to rehab facility today Review of Systems Review of Systems: All systems reviewed & are unremarkable except as noted in Subjective Physical Exam Physical Exam: Physical Exam: Vitals signs as noted above General Appearance:Obese, no apparent distress Head: normocephalic, Atraumatic Eyes: normal inspection, EOMI Neck: supple, Trachea midline Respiratory/Chest: Decreased breath sounds, CTA, No accessory muscle use Cardiovascular: S1, S2, +murmur Abdomen/GI:Soft, Non tender, Bowel sounds present Extremities/Musculoskeletal:normal inspection, no edema Neurologic/Psych:AAOX3, grossly no focal neurological deficits Skin: normal color, warm Results & Data Results & Data Vital Signs (Past 12 Hours) Vital Signs Temp Pulse Pulse Resp BP BP Pulse Ox 08/03/23 11:47 36.5 C 66 16 130/75 96 08/03/23 07:58 35.9 C L 66 16 159/79 H 94 08/03/23 07:55 68 08/03/23 03:32 36.3 C L 68 20 158/72 H 96 O2 Del Method 08/03/23 11:47 Room Air 08/03/23 07:58 Room Air 08/03/23 07:55 08/03/23 03:32 Room Air Laboratory Results Short CBC 08/03/23 Range/Units 07:26 WBC 8.45 (4.8-10.8) K/ul Hgb 8.5 L (12.0-16.0) g/dl Hct 29.3 L (37.0-47.0) % Plt Count 119 L (130-400) K/uL BMP 08/03/23 07:26 Sodium 139 Potassium 5.1 Chloride 109 H Carbon Dioxide 27 BUN 62 H Creatinine 1.51 H Glucose 93 Calcium 8.6 (6) Stage 3 chronic kidney disease Chronic kidney disease stage 3 subtype: unspecified whether 3a or 3b Qualified Code(s): N18.30 - Chronic kidney disease, stage 3 unspecified (7) CAD (coronary artery disease) Coronary Disease-Associated Artery/Lesion type: [place] artery [place] vs. transplanted heart: [place] heart Associated angina: without angina Qualified Code(s): I25.10 - Atherosclerotic heart disease of [place] coronary artery without angina pectoris (10) Hypertension Hypertension type: primary hypertension Qualified Code(s): I10 - Essential (primary) hypertension
--- NOTE | 2023-08-03 12:29 | Discharge Summary ---
Date of Service August 03, 2023 Admission HPI Per Admitting Provider Patient is 68 year old female with PMH CAD, PAF s/p watchman in 2022, HTN, HLD, severe aortic stenosis, chronic anemia, CKD III, anxiety, depression, obesity, bullous pemphigoid, and others listed below presented to ER with complaint of fall and right leg pain today. History obtained from patient and inpatient and outpatient chart review. Patient states today she walked out to kitchen to give her dog a shot when she suddenly felt like legs were shaky and felt some dizziness. She tried to grab on to the fridge but fell. She denies hitting head and denies any syncope or LOC. Denies chest pain. States did feel SOB with walking. Patient reports has been having dizziness and SOB with walking that has been ongoing and is scheduled for upcoming cardiac cath evaluation for consideration of valve replacement. She does not feel her exertional SOB or dizziness are worse than baseline. States chronic left knee pain and chronic back pain that she feels is at baseline. Reports walks with cane or a walker. Lives with her sister. In ER given Dilaudid 0.5mg and currently reports no pain. Denies fever/chills, diaphoresis, N/V/D/C, SUE, vision changes, neck pain, CP, SOB, orthopnea, palpitations, cough, sore throat, choking, otalgia, rhinorrhea, abdominal pain, paresthesias, extremity edema, rashes, urinary symptoms, upper extremity pain, hip pain, ankle or foot pain. Admission Exam Per Admitting Provider General: no acute distress currently, obese Head: normocephalic, atraumatic Eyes: PERRL, EOM's intact, conjunctiva non-injected, anicteric ENT: normal inspection external ears, nose, mucous membranes moist Neck: supple, trachea midline, non-tender Lungs: clear, no respiratory distress, no wheezing/rhonchi/rales CV: RRR, +systolic murmur, trace pretibial edema Abd: protuberant, normal BS, soft, non-tender Back: no spinous process tenderness to palpation Ext: no cyanosis, no erythema, no calf tenderness, UE: ROM intact of bilateral shoulders, elbows, wrists and fingers, non-tender to active ROM. RLE: active flexion and extension intact of hip, knee and ankle, non-tender to palpation, distal pulses intact. LLE: active flexion and extension of hip, +healed surgical scar anterior knee, able to partially active flex and extend with some tenderness, +tenderness to palpation proximal lateral aspect of lower leg without noted ecchymosis, foot without ecchymosis and is non-tender to palpation, distal pulses intact Neuro: A&O x 3, no focal deficits noted, normal affect Skin: warm, dry, +skin abrasion right lateral upper leg with slight surrounding erythema, +ecchymosis right arm Principal Diagnosis Right fibula fracture Right 5th Metatarsal fracture Orthostatic hypotension Severe aortic stenosis EDYTA on CKD stage III Discharge Data Allergies Allergy/AdvReac Type Severity Reaction Status Date / Time egg AdvReac Intermediate GI upset Verified 07/28/23 12:29 ibuprofen AdvReac Intermediate stomach Verified 07/28/23 12:29 irritation morphine AdvReac Intermediate LEGS SWELL Verified 07/28/23 12:29 Consultations 07/28/23 12:12 ED Decision to Admit Stat 07/28/23 14:05 Consult Cardiology Routine Consult Orthopedic Surgery Routine Procedures Performed Laboratory Results WBC 8.45 K/ul (4.8-10.8) 08/03/23 07:26 RBC 3.44 M/uL (4.20-5.40) L 08/03/23 07:26 Hgb 8.5 g/dl (12.0-16.0) L 08/03/23 07:26 Hct 29.3 % (37.0-47.0) L 08/03/23 07:26 MCV 85.2 fL (80.0-100.0) 08/03/23 07:26 MCH 24.7 pg (25.0-34.0) L 08/03/23 07:26 MCHC 29.0 g/dL (32.0-36.0) L 08/03/23 07:26 RDW Std Deviation 59.6 fL (36.4-46.3) H 08/03/23 07:26 RDW Coeff of Brandy 19.3 % (11.5-14.5) H 08/03/23 07:26 Plt Count 119 K/uL (130-400) L 08/03/23 07:26 MPV 11.6 fL (9.4-12.4) 08/03/23 07:26 Immature Gran % (Auto) 0.4 % 08/02/23 05:43 Neut % (Auto) 69.9 % 08/02/23 05:43 Lymph % (Auto) 18.4 % 08/02/23 05:43 Cole % (Auto) 8.5 % 08/02/23 05:43 Eos % (Auto) 2.3 % 08/02/23 05:43 Baso % (Auto) 0.5 % 08/02/23 05:43 Neut # (Auto) 5.51 K/uL (1.40-6.50) 08/02/23 05:43 Lymph # (Auto) 1.45 K/uL (1.20-3.40) 08/02/23 05:43 Cole # (Auto) 0.67 K/uL (0.11-0.59) H 08/02/23 05:43 Eos # (Auto) 0.18 K/uL (0.00-0.50) 08/02/23 05:43 Baso # (Auto) 0.04 K/uL (0.00-0.20) 08/02/23 05:43 Immature Gran # (Auto) 0.03 K/uL (0.01-0.20) 08/02/23 05:43 Polychromasia 1+ 08/01/23 07:02 Sodium 139 mmol/L (136-145) 08/03/23 07:26 Potassium 5.1 mmol/L (3.5-5.1) 08/03/23 07:26 Chloride 109 mmol/L (98-107) H 08/03/23 07:26 Carbon Dioxide 27 mmol/L (21-32) 08/03/23 07:26 Anion Gap 3 (3-11) 08/03/23 07:26 BUN 62 mg/dl (6-23) H 08/03/23 07:26 Creatinine 1.51 mg/dl (0.6-1.2) H 08/03/23 07:26 Est Cr Clr Drug Dosing 51.6 ml/min 08/03/23 07:26 Est GFR ( Amer) 41.3 ml/min 08/03/23 07:26 Est GFR (Non-Af Amer) 35.6 ml/min 08/03/23 07:26 BUN/Creatinine Ratio 41.1 (10-20) H 08/03/23 07:26 Glucose 93 mg/dl (70-99(Fasting)) 08/03/23 07:26 POC Glucose 82 mg/dl (70-99) 08/01/23 10:19 Calcium 8.6 mg/dl (8.6-10.3) 08/03/23 07:26 Magnesium 2.6 mg/dl (1.7-2.4) H 08/02/23 05:43 Total Bilirubin 0.4 mg/dl (0.2-1.0) 07/28/23 09:59 AST 15 U/L (13-39) 07/28/23 09:59 ALT 7 U/L (7-52) 07/28/23 09:59 Alkaline Phosphatase 62 U/L (34-104) 07/28/23 09:59 Troponin I High Sens 8.9 pg/ml (0-14) 07/28/23 09:59 Total Protein 6.7 gm/dl (6.0-8.3) 07/28/23 09:59 Albumin 3.8 gm/dl (3.4-5.0) 07/28/23 09:59 Globulin 2.9 gm/dl (2.5-4.0) 07/28/23 09:59 Albumin/Globulin Ratio 1.3 (0.9-2) 07/28/23 09:59 25-OH Vitamin D Total 55.5 ng/ml (30-100) 07/29/23 06:41 Impressions Foot X-Ray 07/28/23 09:54 XR foot RT min 3V routine HISTORY: 68 years-old Female r lat mid foot pain acute right foot pain COMPARISON: Tibia and fibula radiographs of same day TECHNIQUE: 3 views of the right foot FINDINGS: Demineralized appearance of the bones. There is an acute to subacute appearing nondisplaced oblique fracture involving the distal metadiaphyseal fifth metatarsal without intra-articular involvement. Additionally, there is a partially corticated lucency involving the base of the fifth metatarsal. Large plantar calcaneal and the 05. Mild diffuse soft tissue swelling. 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 IMPRESSION: 1. Acute to subacute appearing nondisplaced fracture involves the distal fifth metatarsal. 2. Subacute to chronic nondisplaced fracture within the base of the fifth metatarsal which is partially united. ACT 112: Negative or not required by law. The above report was generated using voice recognition software. It may contain grammatical, syntax or spelling errors. Electronically signed by: Juan J Abad M.D. 07/28/2023 10:35 AM Knee X-Ray 07/28/23 09:54 XR knee RT 3V CLINICAL HISTORY: r knee pain COMPARISON STUDY: None. FINDINGS: Mildly displaced oblique fracture within the neck of the right fibula. No additional fractures within the right knee. No knee effusion. There is a right total knee arthroplasty. The hardware appears intact. Ossific densities superior to the patellar likely chronic. The bones are osteopenic. IMPRESSION: Mildly displaced oblique fracture within the neck of the right fibula. ACT 112: Negative or not required by law. Electronically signed by: Everardo Colin M.D. 07/28/2023 10:39 AM Tibia/Fibula X-Ray 07/28/23 09:54 RIGHT TIBIA AND FIBULA 2 VIEWS CLINICAL HISTORY: Right leg pain. FINDINGS: AP and crosstable lateral views of the right tibia and fibula are correlated with radiographs of the right knee dated 09/27/2014. The skeletal structures are osteopenic. There is an acute minimally offset fracture of the proximal fibular shaft with overlying soft tissue edema. The distal fibula appears intact. No tibial fracture is seen. A right knee arthroplasty is in near anatomic alignment. The ankle joint is grossly maintained. IMPRESSION: 1. Fracture of the proximal fibular shaft. 2. No tibial fracture is seen. Electronically signed by: Jonah Farris M.D. 07/28/2023 10:36 AM Chest X-Ray 07/28/23 14:10 XR chest 1V portable HISTORY: fall, h/o COMPARISON: Chest 06/05/2022. FINDINGS: There are low lung volumes. No pneumothorax. No pleural effusions. The heart remains mildly enlarged. There are calcifications within the aortic knob. No focal lung consolidations to suggest pneumonia. No evidence for pulmonary edema. Degenerative changes within the shoulders. IMPRESSION: Low lung volumes and mild cardiomegaly. Otherwise, no acute process within the chest. ACT 112: Negative or not required by law. Electronically signed by: Everardo Colin M.D. 07/28/2023 3:10 PM Hip X-Ray 07/29/23 11:53 RIGHT HIP 2 VIEWS CLINICAL HISTORY: Right hip pain. FINDINGS: Portable AP and frog-leg views of the right hip are compared to study dated 10/17/2017. The skeletal structures are osteopenic. There is no radiographic evidence of acute fracture involving the right hip or the visualized right hemipelvis. [id number] degenerative change and joint space narrowing is seen in the right hip. There is degenerative sclerosis of the right sacroiliac joint. The overlying soft tissues are within normal limits. Surgical clips are seen in the right lower quadrant. IMPRESSION: No acute bony abnormality is identified. Electronically signed by: Jonah Farris M.D. 07/29/2023 12:[address] 07/30/23 09:02 CT SCAN OF THE PELVIS WITHOUT IV CONTRAST; CT SCAN OF THE RIGHT HIP WITHOUT IV CONTRAST CLINICAL HISTORY: Recent fall. Right hip and pelvic pain. COMPARISON STUDY: Pelvic CT dated 06/17/2022. Radiographs of the right hip dated 07/29/2023. TECHNIQUE: CT scan of the bony pelvis is performed from the pelvic inlet to the proximal femora. Additionally, CT scan of the right hip is performed from the pelvis to the femoral shaft. Images for both examinations are reviewed in the axial, sagittal, and coronal planes. 3-D reformats of the hip are created and assessed. A dose lowering technique was utilized adhering to the principles of ALARA. The examination is degraded by large body habitus, and by streak artifact from the body wall abutting the CT gantry. CT DOSE: 1236.58 mGy.cm FINDINGS: The skeletal structures are osteopenic. There is no evidence of acute fracture involving the hips or bony pelvis. Mild-to- moderate arthritic change and joint space narrowing is seen in the hips. There is mild degenerative sclerosis of the sacroiliac joints. There is no evidence of avascular necrosis of the femoral heads. No hip joint effusion is identified. No lytic or blastic lesion is seen. There is a chronic compression deformity of L4 with retropulsed fragments, unchanged from the 06/17/2022 examination. There is generalized atrophy of the regional musculature, which appear symmetric. No soft tissue hematoma is identified. The bladder is distended but otherwise normal in appearance. The uterus and adnexa are normal as visualized. Imaged portions of the bowel show no evidence of obstruction. Postoperative change is seen adjacent to the cecum. No intraperitoneal free-air or free-fluid is seen in the pelvis. There is atherosclerotic calcification of the distal abdominal aorta. IMPRESSION: There is no evidence of acute fracture involving the hips or bony pelvis. ACT 112: Negative or not required by law. Dictated: 07/30/2023 10:06 AM Transcribed: 07/30/2023 10:23 AM López [id number] [email or web address] Electronically signed by: Jonah Farris M.D. 07/30/2023 10:[address] 07/30/23 09:03 CT SCAN OF THE PELVIS WITHOUT IV CONTRAST; CT SCAN OF THE RIGHT HIP WITHOUT IV CONTRAST CLINICAL HISTORY: Recent fall. Right hip and pelvic pain. COMPARISON STUDY: Pelvic CT dated 06/17/2022. Radiographs of the right hip dated 07/29/2023. TECHNIQUE: CT scan of the bony pelvis is performed from the pelvic inlet to the proximal femora. Additionally, CT scan of the right hip is performed from the pelvis to the femoral shaft. Images for both examinations are reviewed in the axial, sagittal, and coronal planes. 3-D reformats of the hip are created and assessed. A dose lowering technique was utilized adhering to the principles of ALARA. The examination is degraded by large body habitus, and by streak artifact from the body wall abutting the CT gantry. CT DOSE: 1236.58 mGy.cm FINDINGS: The skeletal structures are osteopenic. There is no evidence of acute fracture involving the hips or bony pelvis. Mild-to- moderate arthritic change and joint space narrowing is seen in the hips. There is mild degenerative sclerosis of the sacroiliac joints. There is no evidence of avascular necrosis of the femoral heads. No hip joint effusion is identified. No lytic or blastic lesion is seen. There is a chronic compression deformity of L4 with retropulsed fragments, unchanged from the 06/17/2022 examination. There is generalized atrophy of the regional musculature, which appear symmetric. No soft tissue hematoma is identified. The bladder is distended but otherwise normal in appearance. The uterus and adnexa are normal as visualized. Imaged portions of the bowel show no evidence of obstruction. Postoperative change is seen adjacent to the cecum. No intraperitoneal free-air or free-fluid is seen in the pelvis. There is atherosclerotic calcification of the distal abdominal aorta. IMPRESSION: There is no evidence of acute fracture involving the hips or bony p marty. ACT 112: Negative or not required by law. Dictated: 07/30/2023 10:06 AM Transcribed: 07/30/2023 10:23 AM López [id number] [email or web address] Electronically signed by: Jonah Farris M.D. 07/30/2023 10:37 AM Ordered Studies 07/30/23 09:02 CT pelvis wo con [facility] 07/30/23 09:03 CT hip RT wo con [facility] Hospital Course (1) Closed fracture of proximal end of right fibula: As below (2) Metatarsal bone fracture: As below (3) Fall: Patient is 68 year old female with PMH CAD, PAF s/p watchman in 2022, HTN, HLD, severe aortic stenosis, chronic anemia, CKD III, anxiety, depression, obesity, bullous pemphigoid, and others listed below presented to ER with complaint of fall and right leg pain today after walking and feeling dizzy and "leg shakiness". Denies syncope, LOC, hitting head or CP. Chronic exertional SOB and dizziness with known severe aortic stenosis. Age-related osteoporosis with current pathologic fracture, R fibula neck and R distal fifth metatarsal--POA Right knee x-ray, Tib/fib xray: Mildly displaced oblique fracture within the neck of the right fibula. Right foot xray: Acute to subacute appearing nondisplaced fracture involves the distal fifth metatarsal. Subacute to chronic nondisplaced fracture within the base of the fifth metatarsal which is partially united. -S/P trochanteric bursa injection of right hip Weightbearing as tolerated on the right lower extremity with assistance of walker and postop shoe PT OT Pain control Appreciate orthopedics input Will need to repeat x-rays of right tib-fib next week Needs follow-up with orthopedics on discharge Fall precautions Plan to discharge to rehab facility today Hypotension Orthostatic hypotension Severe aortic stenosis BP labile Continue metoprolol with holding parameters Appreciate cardiology input Received IV fluids Lisinopril, Flomax discontinued Blood pressure stable today (4) Severe aortic stenosis: As per prior provider Chronic exertional SOB and dizziness with known severe aortic stenosis. 05/16/23 Echo: EF: 55-59%, severe Is scheduled to see interventional cardiology at [facility] for upcoming cardiac cath and consideration of TAVR Appears euvolemic currently Cardiology consult-appreciate cardiology input and recommendation Strongly advised to continue with outpatient procedure and cardiac testing She will need to reschedule the upcoming cardiac cath (5) Chronic anemia: No acute bleeding issues currently Monitor CBC (6) Stage 3 chronic kidney disease: EDYTA on CKD stage III Hyperkalemia Baseline Cr: 1.5-1.6 Monitor renal function Potassium levels, Cr improved Received insulin, Lokelma Low potassium diet Lisinopril discontinued Hyperkalemia resolved Creatinine back to baseline Monitor (7) CAD (coronary artery disease): Cardiac cath 2016 with moderate diffuse irregularities Denies CP Continue aspirin, atorvastatin, metoprolol succinate lisinopril discontinued due to EDYTA, hyperkalemia and low BP (8) Paroxysmal atrial fibrillation: S/P Watchman 2022 Current sinus rhythm Continue metoprolol (9) Dyslipidemia: Continue atorvastatin (10) Hypertension: Continue metoprolol succinate Lisinopril discontinued Also Flomax discontinued (11) Anxiety and depression: Continue duloxetine, buspirone (12) Bullous pemphigoid: On Dupixent Follows with dermatology Morbidly obese BMI: 47 DVT Prophylaxis Heparin SQ CODE STATUS Full Code Disposition rehab Total Time Total Time Spent Total Time Spent (In Minutes): 58 minutes Discharge Plan Discharge Items Patient Disposition: Transfer Alf Fac Reason For Visit: fibula fracture Discharge Diagnosis: Right fibula fracture Right 5th Metatarsal fracture Orthostatic hypotension Severe aortic stenosis EDYTA on CKD stage III Activity: Per Instructions section Weightbearing: Right weightbearing Weightbearing Comment: with walker assistance and post op shoe on right foot Non-emergency contact: Primary Care Provider, Surgeon and Librarian Assistant Call non-emergency contact if: you have any medication questions, your symptoms worsen and your pain is not controlled Follow-up/Referrals: Kaci Rivera PA-C [Physician Technical Customer Support Specialist] - 08/09/23 3:00 pm Nikunj Plascencia MD [Primary Care Provider] - Diet: Heart Healthy and Low Potassium (2gm) Addtl Attending Provider Instructions: Follow-up with your primary care physician Dr. Plascencia in 1 week upon discharge from the facility Follow-up with your orthopedic Kaci Rivera PA-C on 08/09/2023 at 3 PM as scheduled with repeat x-rays Follow-up with your metal spray operator Dr. Torres in 3 to 4 weeks as advised -- Get blood work (basic metabolic panel) in 1 week to monitor your creatinine, potassium levels. --Continue Lovenox SQ daily at rehab facility for DVT prophylaxis --Your lisinopril is discontinued for now given low blood pressure, acute kidney injury, high potassium levels. Discuss with your metal spray operator for further recommendations on follow-up. -- Your Flomax is discontinued due to low blood pressure/orthostatic hypotensi on. --Please schedule your cardiac cath as recommended by your metal spray operator for further evaluation -- Monitor for any urinary retention while at rehab facility. Seek immediate medical attention if your symptoms reoccur or worsen Please take all medications as instructed on discharge list below. Please call if you have any questions or problems. You can reach a [facility] hospitalist on duty at [facility] 24 hours a day by calling [phone] [facility] Rodent Control Worker Provider Instructions: Orthopedic Instructions: - Weight-bear as tolerated right lower extremity with postop shoe and walker at all times. -Ice to right leg and right foot as needed for pain and swelling. -Elevate right lower extremity above your heart to relieve swelling. -Allowed for full range of motion of the right knee and right ankle as tolerated. -Postop shoe when out of bed. May remove for bathing and when in bed. -Call [phone] to schedule an appointment in 10 to 14 days for reevaluation and x-rays. Pending Studies at Discharge: No Stand-Alone Forms: My [facility] Skilled Items Patient informed of condition?: Yes DNR: No Discharge Level of Care: Skilled Communicable Disease: No Discharge Prognosis: Stable Lines: None Urinary Catheter: No Medications and DC Order Prescriptions: New enoxaparin [Lovenox] 40 mg/0.4 mL Syringe 40 mg subcut QAM 30 Days Qty: 12 0RF oxycodone 5 mg Tablet 5 mg PO Q6H PRN (Reason: pain) Qty: 10 0RF polyethylene glycol 3350 [Miralax] 17 gram Powder In Packet 17 g PO DAILY PRN (Reason: constipation) Qty: 30 0RF Continued buspirone 10 mg tablet 10 mg PO BID atorvastatin 80 mg tablet 80 mg PO QPM cyanocobalamin (vitamin B-12) [Vitamin B-12] 1,000 mcg Tablet 1,000 mcg PO QAM folic acid 800 mcg Tablet 0.8 mg PO QAM cholecalciferol (vitamin D3) [Vitamin D3] 1,000 unit Tablet 1,000 unit PO QAM [place] 3-6-9 1,200 mg Capsule 1 cap PO QAM Rx Instructions: FORMULA HAS GREEN TEA docusate sodium [Colace] 100 mg capsule 100 mg PO BID ascorbic acid (vitamin C) 250 mg Tablet 250 mg PO QAM duloxetine [Cymbalta] 60 mg capsule,delayed release(DR/EC) 120 mg PO DAILY metoprolol succinate 50 mg tablet extended release 24 hr 25 mg PO BID sumatriptan succinate 25 mg tablet 25 mg PO DIRECTED MDD 5 TABS/24 HOURS PRN (Reason: Migraine Headache) Rx Instructions: TAKE 50 MG AT ONSET OF SUE, THEN MAY REPEAT WITH 25 MG EVERY 2 HOURS NEEDED. MAX 5 TABS IN 24 HOURS. diphenhydramine HCl [Benadryl] 25 mg Capsule 25 mg PO QAM clotrimazole 1 % Cream 1 applic TOPICAL DIRECTED PRN (Reason: Itching) tacrolimus 0.1 % Ointment 1 applic TOPICAL BID PRN (Reason: AFFECTED AREAS ON FACE) oxybutynin chloride 5 mg tablet extended release 24hr 5 mg PO QPM betamethasone dipropionate 0.05 % Ointment 1 applic TOPICAL BID PRN (Reason: RASH FACE/TRUNK/ARMS) miconazole nitrate [Desenex] 2 % Powder 1 applic EXT PRN PRN (Reason: skin rash) Qty: 85 0RF calcipotriene 0.005 % cream 1 applic TOPICAL DAILY PRN (Reason: .flare ups) pregabalin 150 mg capsule 150 mg PO TID Saline Mist 0.65 % aerosol,spray 2 spray NA Q6H PRN (Reason: Nasal Congestion) doxepin 25 mg capsule 25 mg PO HS aspirin 81 mg Tablet,Delayed Release (Dr/Ec) 81 mg PO DAILY Dupixent Pen 300 mg/2 mL pen injector 300 mg SUBCUT UD Rx Instructions: Q2 weeks memantine 10 mg tablet 10 mg PO BID Discontinued lisinopril 10 mg tablet 10 mg PO HS tamsulosin 0.4 mg capsule 0.4 mg PO DAILY Discharge Orders: Discharge Order (Routine); Ordered 08/03/23 Ordered By: Jorden Enriquez Admission Data Admit Date/Time: 07/28/23 12:45 Attending Provider: Jorden Enriquez Admit Provider: Shara Pérez Primary Care Provider: Nikunj Plascencia Other Providers: Shara Pérez; Kendrick Best; Fernando Torres
[2023-08-04] MEDS: ENOXAPARIN INJ 40 MG/0.4 ML SYR SQ SCH (08:07)
[2023-08-04 08:10] LABS: Calcium 8.6 mg/dl (8.6-10.3); Potassium 5.2 mmol/L (3.5-5.1)
[2023-08-04 08:15] LABS: BUN Creatinine Ratio 39.6 (10-20); Creatinine Clr Calc Pharmacy 50.6 ml/min; Est GFR (African American) 40.3 ml/min; Est GFR (Non-African American) 34.8 ml/min
--- NOTE | 2023-08-04 09:19 | Hospitalist Progress Note ---
Date of Service August 04, 2023 Assessment & Plan (1) Closed fracture of proximal end of right fibula: Plan: As below (2) Metatarsal bone fracture: Plan: As below (3) Fall: Plan: Patient is 68 year old female with PMH CAD, PAF s/p watchman in 2022, HTN, HLD, severe aortic stenosis, chronic anemia, CKD III, anxiety, depression, obesity, bullous pemphigoid, and others listed below presented to ER with complaint of fall and right leg pain today after walking and feeling dizzy and "leg shakiness". Denies syncope, LOC, hitting head or CP. Chronic exertional SOB and dizziness with known severe aortic stenosis. Age-related osteoporosis with current pathologic fracture, R fibula neck and R distal fifth metatarsal--POA Right knee x-ray, Tib/fib xray: Mildly displaced oblique fracture within the neck of the right fibula. Right foot xray: Acute to subacute appearing nondisplaced fracture involves the distal fifth metatarsal. Subacute to chronic nondisplaced fracture within the base of the fifth metatarsal which is partially united. -S/P trochanteric bursa injection of right hip Weightbearing as tolerated on the right lower extremity with assistance of walker and postop shoe PT OT Pain control Appreciate orthopedics input Will need to repeat x-rays of right tib-fib next week Fall precautions Discussed with today: Okay to discharge to rehab facility today Plan to discharge to rehab today Hypotension Orthostatic hypotension Severe aortic stenosis BP labile Continue metoprolol Appreciate cardiology input Received IV fluids Lisinopril, Flomax discontinued Blood pressure stable (4) Severe aortic stenosis: Plan: As per prior provider Chronic exertional SOB and dizziness with known severe aortic stenosis. 05/16/23 Echo: EF: 55-59%, severe Is scheduled to see interventional cardiology at [facility] for upcoming cardiac cath and consideration of TAVR Appears euvolemic currently Cardiology consult-appreciate cardiology input and recommendation Strongly advised to continue with outpatient procedure and cardiac testing She will need to reschedule the upcoming cardiac cath (5) Chronic anemia: Plan: No acute bleeding issues currently Monitor CBC (6) Stage 3 chronic kidney disease: Plan: EDYTA on CKD stage III Hyperkalemia Baseline Cr: 1.5-1.6 Monitor renal function Potassium levels, Cr improved Received insulin, Lokelma Low potassium diet Lisinopril discontinued Hyperkalemia resolved EDYTA resolved Creatinine 1.5 today (7) CAD (coronary artery disease): Plan: Cardiac cath 2016 with moderate diffuse irregularities Denies CP Continue aspirin, atorvastatin, metoprolol succinate lisinopril discontinued due to EDYTA, hyperkalemia and low BP (8) Paroxysmal atrial fibrillation: Plan: S/P Watchman 2022 Current sinus rhythm Continue metoprolol (9) Dyslipidemia: Plan: Continue atorvastatin (10) Hypertension: Plan: Continue metoprolol succinate Lisinopril discontinued Also Flomax discontinued (11) Anxiety and depression: Plan: Continue duloxetine, buspirone (12) Bullous pemphigoid: Plan: On Dupixent Follows with dermatology Morbidly obese BMI: 47 DVT Prophylaxis Heparin SQ CODE STATUS Full Code Disposition Rehab today Admission and Anticipated Discharge Date Admission Date: July 28, 2023 Subjective Patient is seen and examined at bedside States having hip pain, some pleuritic pain as well as Discussed with orthopedics today Patient offers no other complaints Plan to be discharged to rehab facility today Review of Systems Review of Systems: All systems reviewed & are unremarkable except as noted in Subjective Physical Exam Physical Exam: Physical Exam: Vitals signs as noted above General Appearance:Obese, no apparent distress Head: normocephalic, Atraumatic Eyes: normal inspection, EOMI Neck: supple, Trachea midline Respiratory/Chest: Decreased breath sounds, CTA, No accessory muscle use Cardiovascular: S1, S2, +murmur Abdomen/GI:Soft, Non tender, Bowel sounds present Extremities/Musculoskeletal:normal inspection, no edema Neurologic/Psych:AAOX3, grossly no focal neurological deficits Skin: normal color, warm Results & Data Results & Data Vital Signs (Past 12 Hours) Vital Signs Temp Pulse Resp BP BP Pulse Ox O2 Del Method 08/04/23 08:12 36.6 C 63 20 143/86 H 95 Room Air 08/03/23 23:55 36.4 C L 64 16 154/74 H 95 Room Air 08/03/23 23:45 Room Air 08/03/23 21:26 Room Air Laboratory Results [facility] 08/04/23 06:46 Sodium 138 Potassium 5.2 H Chloride 111 H Carbon Dioxide 23 BUN 61 H Creatinine 1.54 H Glucose 77 Calcium 8.6 (6) Stage 3 chronic kidney disease Chronic kidney disease stage 3 subtype: unspecified whether 3a or 3b Qualified Code(s): N18.30 - Chronic kidney disease, stage 3 unspecified (7) CAD (coronary artery disease) Associated angina: without angina Coronary Disease-Associated Artery/Lesion type: [place] artery [place] vs. transplanted heart: [place] heart Qualified Code(s): I25.10 - Atherosclerotic heart disease of [place] coronary artery without angina pectoris (10) Hypertension Hypertension type: primary hypertension Qualified Code(s): I10 - Essential (primary) hypertension
--- NOTE | 2023-08-04 09:25 | XRay Report ---
XR tibia fibula RT 2V HISTORY: 68 years-old Female pain acute pain of the right lower leg COMPARISON: Knee radiographs of same day TECHNIQUE: 2 views of the right tibia and fibula FINDINGS: Demineralized appearance of the bones. Total joint arthroplasty of the knee with patella resurfacing. Osteoarthritis of the ankle. Intact tibia. There is an acute comminuted proximal diaphyseal fibular fracture demonstrating 4 mm dorsal displacement. Mild adjacent soft tissue swelling. IMPRESSION: Acute comminuted minimally displaced proximal fibular fracture. ACT 112: Negative or not required by law. The above report was generated using voice recognition software. It may contain grammatical, syntax o r spelling errors. Electronically signed by: Juan J Abad M.D. 08/04/2023 9:24 AM
--- NOTE | 2023-08-04 09:27 | XRay Report ---
RIGHT ANKLE 3 VIEWS CLINICAL HISTORY: Right ankle pain. Recent fall. FINDINGS: 3 views of the right ankle are correlated with radiographs of the right tibia and fibula da zahra 07/28/2023. The skeletal structures are osteopenic. No fracture is seen at the ankle joint. The ank le mortise is intact. There is no joint effusion. There are tiny dorsal and large plantar heel spurs. Mild soft tissue swelling is seen around the ankle. There is age indeterminate deformity at the base of the fifth metatarsal. IMPRESSION: 1. No acute bony abnormality is identified at the ankle joint. 2. There is age indeterminant deformity at the base of the fifth metatarsal.. Electronically signed by: Jonah Farris M.D. 08/04/2023 9:25 AM
--- NOTE | 2023-08-04 09:44 | XRay Report ---
XR foot RT min 3V routine HISTORY: 68 years-old Female pain acute right foot pain status post fall COMPARISON: Right ankle radiographs of same day TECHNIQUE: 3 views of the right foot FINDINGS: There is an acute obliquely oriented fracture involving the distal metadiaphyseal fifth metatarsal wi thout displacement. Multifocal osteoarthritis is mostly mild. Large plantar calcaneal detail 5. Mild diffuse soft tissue swelling. Type I accessory navicular. 1.2 cm corticated ossification at the base of the fifth metatarsal. IMPRESSION: 1. Acute nondisplaced fracture of the distal metadiaphyseal fifth metatarsal. 2. 1.2 cm corticated ossification at the base of the fifth metatarsal suggestive of a chronic ununite d fracture. Accessory ossicle considered less likely. ACT 112: Negative or not required by law. The above report was generated using voice recognition software. It may contain grammatical, syntax o r spelling errors. Electronically signed by: Juan J Abad M.D. 08/04/2023 9:43 AM
[2023-08-04] MEDS: ALUMINUM/MAGNESIUM/SIMETH (MAALOX MAX) 30 ML UDC PO PRN (10:09)
--- NOTE | 2023-08-04 10:50 | XRay Report ---
RIGHT KNEE 3 VIEWS CLINICAL HISTORY: Right knee pain. Recent fall. FINDINGS: AP, crosstable lateral, and sunrise views of the right knee are compared to study dated 07/27. The skeletal structures are osteopenic. There is unchanged appearance of a mildly displaced sp iral fracture of the proximal fibula. Overlying soft tissue edema is observed. No new fractures ident ified. A right knee arthroplasty is in near anatomic alignment. There has been undersurface remodelin g of the patella. No periprosthetic lucency is identified. There is a small joint effusion. IMPRESSION: 1. There is unchanged appearance of a fibular neck fracture as compared to 07/28/2023. 2. No new fracture is seen. 3. A right knee arthroplasty is in near anatomic alignment. Electronically signed by: Jonah Farris M.D. 08/04/2023 10:49 AM
== END 2023-08-04 10:27 | DRG 543 ==
LOC: ED 09:49 → 2W 12:45 → SUATTDRO 12:45 → 2W 13:53 → 3N 08-03 23:41

== ENCOUNTER 2023-09-14 10:17 | Inpatient (IN) ==
--- NOTE | 2023-09-14 10:33 | Emergency Department Note ---
Impression & Plan Fall, Back pain, Acute UTI, Acute kidney injury superimposed on CKD ED Provider Note Provider: Alex Moyer MD DATE OF SERVICE: 09/14/2023 CHIEF COMPLAINT: Fall, back pain HISTORY OF PRESENT ILLNESS: Patient is a 68-year-old female past medical history including atrial fibrillation status post watchman, GERD, chronic back pain, CKD, and hypertension presenting here today after a fall complaining of back pain via ambulance. Is on low-dose aspirin but not other blood thinners. Patient evidently was going to get out of her bed. Evidently got a new mattress recently and this is higher than normal. 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 Denies striking her head or losing conscious. Denies dizziness or shortness of breath or chest pain. Reports some pain in the mid to lower back but denies any mid abdominal pain or chest pain. Does states that she was trying to hold onto the handhold and overextended her right arm and her right shoulder hurts some. Denies any numbness or tingling in the extremities otherwise. Denies other extremity injury or hip pain. Was not on the ground very long for sister was able to bring her here for further evaluation. Uses oxycodone and pain medicine at home sometimes but did not have any particular pain medicine this morning. PAST MEDICAL HISTORY: As noted above MEDICATIONS: Reviewed home medications SOCIAL HISTORY: Resides at home PHYSICAL EXAM: GENERAL: alert and oriented in no acute distress on stretcher Head: normocephalic and atraumatic EYES: No injection, discharge or icterus. EOMI. NECK: Trachea midline. Supple without midline cervical tenderness ENT: Mucous membranes pink and moist. LUNGS: Airway patent. No retractions. Breath sounds clear HEART: Regular rate and rhythm. No chest wall tenderness ABDOMEN: Soft and non-tender, without guarding or rebound. BACK: Some lumbar to lower thoracic midline tenderness without step-off, no SI joint tenderness. No bilateral flank tenderness. SKIN: Acyanotic, warm, dry, without rashes EXTREMITIES: Without swelling, tenderness or deformity NEUROLOGICAL: No focal deficits. No aphasia. No facial droop or slurred speech. Normal strength and tone in the extremities. Sensation to gross touch normal. Ambulatory. EK bpm normal sinus rhythm. No PVC or PAC. No acute ST segment elevation or depression with a QTc of 416. CONTINUOUS CARDIAC MONITORING: was ordered and showed a heart rate of 60s to 70s bpm in normal sinus rhythm PDMP was checked without noted issue. GCS 15. Patient's laboratory studies and imaging reviewed. Differential includes Fracture, dislocation, contusion, intra-abdominal, pneumothorax, intrathoracic, intracranial, neurologic, compartment syndrome, rhabdomyolysis, as well as other pathologies. IMPRESSION/MEDICAL DECISION MAKING: Seen with resident physician. Patient in no obvious distress. Slight contusion to the right shoulder but good range of motion. Will obtain x-ray but doubt fracture or dislocation. Likely more muscular injury. No evidence compartment syndrome in the extremities. Some pain in the lumbar region and lower thoracic spine. No significant abdominal pain or chest pain. Denies striking head. No loss of consciousness. No high risk anticoagulation use. No feel we need head or cervical spine imaging. CT of the chest as well as abdomen pelvis to evaluate for intrathoracic or abdominal/pelvic injury as well as to look at the back were obtained. No neurological deficits. Basic blood work obtained given a bit of fentanyl for pain control. Blood work here with an acute kidney injury creatinine 2.29 from baseline at 1.3-1.4. Given some gentle IV hydration. No significant leukocytosis and stable mild anemia. No severe electrolyte abnormalities. Troponin minimally up at 24 higher than baseline but not severely elevated not having chest pain. No evidence of rhabdomyolysis based on CK. No evidence of hepatitis. Shoulder x- ray without fracture per my review and interpretation as well as radiology report. CTs per radiology without significant acute traumatic process in the abdomen pelvis or chest with healing subacute rib fractures and old compression fractures of thoracic and lumbar spine. Patient received some fentanyl and IV Tylenol here with improvement of her pain. Upon reassessment attempted with nursing to ambulate the patient. Able to stand at bedside with some a fair amount of effort and significant assistance from staff and immediately had to urinate and sit back down. States she was having increased back discomfort. Obvious difficulty with that even attempts at trying to stand let alone use of a walker to garett rodriguez. UA is ordered and sent to the lab from a UA collected here. Questionable for infection and covered with a dose of ceftriaxone here. Urine does appear fairly dark here and again received a bit of IV fluid; empirically covered with a dose of Rocephin pending culture. Given her evidence of EDYTA with the ambulatory dysfunction weakness and back pain will bring into the hospital for further care. DIAGNOSIS: Fall, ambulatory dysfunction, back pain, EDYTA DISPOSITION: Hospitalist will evaluate patient agreeable with this plan. Past Med/Surg History Problem List (Updated 09/14/23 @ 13:12 by Alex Moyer M.D.) Acute kidney injury superimposed on CKD (Acute) Acute UTI (Acute) Back pain (Acute) Fall (Acute) Toe laceration (Acute) Right hip pain Hyperkalemia Orthostatic hypotension Hypotension Ambulatory dysfunction (Acute) Metatarsal bone fracture (Acute) Closed fibular fracture (Acute) Fall Presence of Watchman left atrial appendage closure device Paroxysmal atrial fibrillation Bullous pemphigoid Chronic anemia Severe aortic stenosis Closed fracture of proximal end of right fibula Paroxysmal atrial fibrillation Moderate aortic stenosis Atypical chest pain Chest pain (Acute) Acute anterior epistaxis (Acute) Hiatal hernia Uncontrolled hypertension Obesity (Acute) Atrial flutter, paroxysmal Aortic stenosis Bicuspid aortic valve Chronic low back pain GERD (gastroesophageal reflux disease) Dyslipidemia Atrial flutter, paroxysmal Candidal intertrigo DVT prophylaxis Chest pain (Acute) Neurogenic claudication due to lumbar spinal stenosis Feeling of incomplete bladder emptying Anemia Stage 3 chronic kidney disease (Acute) Anxiety and depression CAD (coronary artery disease) non-obstructive Hypertension (Acute) Medical History Nose septum perforation Chronic low back pain Sacroiliitis IBS (irritable bowel syndrome) Borderline diabetes mellitus A-fib "i think i have a-fib." -- on eliquis -- follows with Dr. Torres History of TIA (transient ischemic attack) 2016 Cardiac murmur History of skin cancer History of COVID-19 02/2020; generalized weakness, diarrhea, sob, fever, body aches; hospitalized x 1 week; c/o ongoing brain fog since having covid Verbalizes suicidal thoughts COVID-19 Nocturia Acute urinary retention Back pain Renal failure Morbid obesity BMI 50.5 Carotid artery stenosis "mild" Aortic stenosis Mild (per cardiology review) aortic stenosis with possible bicuspid aortic valve (MG 19mmhg, NIKKIE 3.0) per 05/2018 ECHO Anemia Osteoporosis GERD (gastroesophageal reflux disease) controlled Chronic back pain High cholesterol Hx of falling last fall 09/2018- per patient, related to LBP/balance issues- ? r/t ambulatory dysfunction- improved with cane/walker use Surgical History History of right cataract extraction S/P epidural steroid injection History of appendectomy History of cardiac cath 2017= NO STENTS History of right knee joint replacement History of back surgery Hx of laparoscopy History of kyphoplasty Family History Father Stroke Slow to wake up after anesthesia Myocardial infarction, Onset Age: 40 Mother Stroke Myocardial infarction, Onset Age: 60 Sister Myocardial infarction, Onset Age: 60 Social History Smoking Status: Never smoker Tobacco Type: Cigarettes Second Hand Exposure: Yes; Do You Dip or Chew Tobacco: No; Hx Alcohol Use: No Hx Substance Use: No Preferred Language: Emirati Communication Ability: Effective Visual Impairment: No Limitations Hearing Ability: Normal Director Of Corporate Marketing Required: No Beliefs That Will Affect Care: None marital status: Single Current Living Situation: Family Current Living Situation Comment: Lives with sister current occupational status: unemployed and disabled Feels Safe at Home: Yes Assistive Devices: Walker Allergies Allergies Allergy/AdvReac Type Severity Reaction Status Date / Time egg AdvReac Intermediate GI upset Verified 09/14/23 12:47 ibuprofen AdvReac Intermediate stomach Verified 09/14/23 12:47 irritation morphine AdvReac Intermediate LEGS SWELL Verified 09/14/23 12:47 Home Meds Home Medications Medication Instructions Recorded Confirmed atorvastatin 80 mg tablet 80 mg PO QPM 06/16/18 09/14/23 cholecalciferol (vitamin D3) 25 1,000 unit PO QAM 06/16/18 09/14/23 mcg (1,000 unit) tablet (Vitamin D3) cyanocobalamin (vitamin B-12) 1,000 mcg PO QAM 06/16/18 09/14/23 1,000 mcg tablet (Vitamin B-12) fish, borage, flaxseed oils-omega 1 cap PO QAM 06/16/18 09/14/23 3,6,9 comb no.1 1,200 mg capsule (Harvey 3-6-9) folic acid 800 mcg tablet 0.8 mg PO QAM 06/16/18 09/14/23 ascorbic acid (vitamin C) 250 mg 250 mg PO QAM 12/13/19 09/14/23 tablet docusate sodium 100 mg capsule 100 mg PO BID 12/13/19 09/14/23 (Colace) duloxetine 60 mg capsule,delayed 120 mg PO QAM 03/16/20 09/14/23 release (Cymbalta) buspirone 10 mg tablet 10 mg PO BID 06/23/21 09/14/23 sumatriptan succinate 25 mg tablet 25 mg PO DIRECTED PRN Migraine 08/28/21 09/14/23 Headache betamethasone dipropionate 0.05 % 1 applic topical BID PRN RASH 03/01/22 09/14/23 topical ointment FACE/TRUNK/ARMS oxybutynin chloride 5 mg 5 mg PO QPM 03/01/22 09/14/23 tablet,extended release 24 hr tacrolimus 0.1 % topical ointment 1 applic topical BID itching 03/01/22 09/14/23 clotrimazole 1 % topical cream 1 applic topical BID PRN Itching 05/23/22 09/14/23 diphenhydramine HCl 25 mg capsule 25 mg PO QAM 05/23/22 09/14/23 (Benadryl) aspirin 81 mg tablet,delayed 81 mg PO QAM 07/28/23 09/14/23 release calcipotriene 0.005 % topical cream 1 applic topical DAILY PRN flare up 07/28/23 09/14/23 doxepin 25 mg capsule 25 mg PO HS 07/28/23 09/14/23 memantine 10 mg tablet 10 mg PO BID 07/28/23 09/14/23 sodium chloride 0.65 % nasal spray 2 spray NA Q6H 07/28/23 09/14/23 aerosol (Saline Mist) metoprolol succinate 25 mg 25 mg PO BID 08/14/23 09/14/23 tablet,extended release 24 hr miconazole nitrate 2 % topical 1 applic topical BID 08/14/23 09/14/23 powder (Desenex) oxycodone 5 mg tablet 5 mg PO Q6H PRN pain level 6-10 on 08/14/23 09/14/23 a 1-10 scale dupilumab 300 mg/2 mL subcutaneous 300 mg subcut Q14D 09/14/23 09/14/23 pen injector (Dupixent) lisinopril 10 mg tablet 10 mg PO QAM 09/14/23 09/14/23 pregabalin 100 mg capsule 100 mg PO TID 09/14/23 09/14/23 tamsulosin 0.4 mg capsule 0.4 mg PO QAM 09/14/23 09/14/23 Previous Rx's Medication Instructions Recorded polyethylene glycol 3350 17 gram 17 g PO DAILY PRN constipation #30 08/03/23 oral powder packet (Miralax) ea Results & Data (ED) Vital Signs Vital Signs - 24 hr 09/14/23 10:31 09/14/23 10:36 09/14/23 10:37 Temperature 36.7 C Temperature Source Oral Pulse Rate 76 75 Pulse Rate from SpO2 Sensor Respiratory Rate 20 Respiratory Effort / Characteristics Non-Labored Spontaneous Respiratory Depth Normal Respiratory Pattern Regular Blood Pressure 103/30 L Blood Pressure Mean 54 Blood Pressure Position Lying Pulse Oximetry 100 96 Oxygen Delivery Method Room Air Room Air Sepsis Recent Fever Within 48 Hours No Sepsis New/Unexplained Change in Mental Status N/A Sepsis Action Taken by Nursing No Action Required 09/14/23 10:37 09/14/23 10:41 09/14/23 10:42 Temperature Temperature Source Pulse Rate 70 Pulse Rate from SpO2 Sensor 71 Respiratory Rate 15 Respiratory Effort / Characteristics Respiratory Depth Respiratory Pattern Blood Pressure 103/30 L Blood Pressure Mean 74 Blood Pressure Position Pulse Oximetry 96 100 Oxygen Delivery Method Room Air Sepsis Recent Fever Within 48 Hours Sepsis New/Unexplained Change in Mental Status Sepsis Action Taken by Nursing 09/14/23 10:57 09/14/23 10:59 09/14/23 11:00 Temperature Temperature Source Pulse Rate 69 69 Pulse Rate from SpO2 Sensor 68 69 Respiratory Rate 22 16 Respiratory Effort / Characteristics Respiratory Depth Respiratory Pattern Blood Pressure 117/44 L Blood Pressure Mean 67 Blood Pressure Position Pulse Oximetry 96 Oxygen Delivery Method Sepsis Recent Fever Within 48 Hours Sepsis New/Unexplained Change in Mental Status Sepsis Action Taken by Nursing 09/14/23 11:05 09/14/23 11:54 09/14/23 12:06 Temperature Temperature Source Pulse Rate 72 70 Pulse Rate from SpO2 Sensor 72 70 Respiratory Rate 19 14 Respiratory Effort / Characteristics Respiratory Depth Respiratory Pattern Blood Pressure 152/70 H Blood Pressure Mean 109 Blood Pressure Position Pulse Oximetry 99 97 Oxygen Delivery Method Sepsis Recent Fever Within 48 Hours Sepsis New/Unexplained Change in Mental Status Sepsis Action Taken by Nursing 09/14/23 12:21 09/14/23 12:32 09/14/23 12:33 Temperature Temperature Source Pulse Rate 67 70 Pulse Rate from SpO2 Sensor 70 Respiratory Rate 17 16 Respiratory Effort / Characteristics Respiratory Depth Respiratory Pattern Blood Pressure 142/69 H Blood Pressure Mean 112 Blood Pressure Position Pulse Oximetry 100 Oxygen Delivery Method Sepsis Recent Fever Within 48 Hours Sepsis New/Unexplained Change in Mental Status Sepsis Action Taken by Nursing Laboratory Data 09/14/23 11:00 09/14/23 11:00 Lab Results 09/14/23 09/14/23 Range/Units 11:00 12:30 WBC 9.05 (4.8-10.8) K/ul RBC 3.71 L (4.20-5.40) M/uL Hgb 9.5 L (12.0-16.0) g/dl Hct 32.5 L (37.0-47.0) % MCV 87.6 (80.0-100.0) fL MCH 25.6 (25.0-34.0) pg MCHC 29.2 L (32.0-36.0) g/dL RDW Std Deviation 57.5 H (36.4-46.3) fL RDW Coeff of Brandy 17.9 H (11.5-14.5) % Plt Count 146 (130-400) K/uL MPV 10.6 (9.4-12.4) fL Immature Gran % (Auto) 0.3 % Neut % (Auto) 66.4 % Lymph % (Auto) 19.3 % [place] % (Auto) 10.3 % Eos % (Auto) 3.1 % Baso % (Auto) 0.6 % Neut # (Auto) 6.01 (1.40-6.50) K/uL Lymph # (Auto) 1.75 (1.20-3.40) K/uL [place] # (Auto) 0.93 H (0.11-0.59) K/uL Eos # (Auto) 0.28 (0.00-0.50) K/uL Baso # (Auto) 0.05 (0.00-0.20) K/uL Immature Gran # (Auto) 0.03 (0.01-0.20) K/uL PT 10.9 (9.0-12.0) Seconds INR 1.0 (0.9-1.1) Sodium 138 (136-145) mmol/L Potassium 4.4 (3.5-5.1) mmol/L Chloride 107 (98-107) mmol/L Carbon Dioxide 26 (21-32) mmol/L Anion Gap 5 (3-11) BUN 35 H (6-23) mg/dl Creatinine 2.29 H (0.6-1.2) mg/dl Est Cr Clr Drug Dosing 33.8 ml/min Est GFR ( Amer) 25.0 ml/min Est GFR (Non-Af Amer) 21.5 ml/min BUN/Creatinine Ratio 15.3 (10-20) Glucose 95 (70-99(Fasting)) mg/dl Calcium 8.6 (8.6-10.3) mg/dl Total Bilirubin 0.4 (0.2-1.0) mg/dl AST 14 (13-39) U/L ALT 10 (7-52) U/L Alkaline Phosphatase 76 (34-104) U/L Total Creatine Kinase 93 (26-192) U/L Troponin I High Sens 24.2 H (0-14) pg/ml Total Protein 6.3 (6.0-8.3) gm/dl Albumin 3.4 (3.4-5.0) gm/dl Globulin 2.9 (2.5-4.0) gm/dl Albumin/Globulin Ratio 1.2 (0.9-2) Urine Color Dark Yellow Urine Appearance Turbid A (Clear) Urine pH 5.5 (4.5-7.5) Ur Specific [place] 1.021 (1.000-1.030) Urine Protein Trace H (Negative) Urine Glucose (UA) Negative (Negative) Urine Ketones Negative (Negative) Urine Blood 2+ H (Negative) Urine Nitrite Negative (Negative) Urine Bilirubin Negative (Negative) Urine Urobilinogen Negative (Negative) Ur Leukocyte Esterase 2+ H (Negative) Administered Medications Discontinued Medications Fentanyl Citrate (Fentanyl Citrate Pf 100 Mcg/2 Ml Vial) 50 mcg IV NOW STA Stop: 09/14/23 10:57 Last Admin: 09/14/23 11:05 Dose: 50 mcg Documented By: JAVAD Sodium Chloride (Nss) 500 mls @ 999 mls/hr IV .Q31M ONE Stop: 09/14/23 12:25 Last Infusion: 09/14/23 12:41 Dose: Infused Documented By: Admin: 09/14/23 12:01 Dose: 999 mls/hr Documented By: JAVAD Acetaminophen (Ofirmev) 1,000 mg in 100 mls @ 400 mls/hr IV NOW STA Stop: 09/14/23 12:10 Last Infusion: 09/14/23 12:41 Dose: Infused Documented By: Admin: 09/14/23 12:01 Dose: 400 mls/hr Documented By: JAVAD Imaging Data Radiologist's Impression: Abdomen/Pelvis CT 09/14/23 10:[address] WITHOUT CONTRAST CT DOSE: HISTORY: fall back pain TECHNIQUE: Multiaxial CT images of the abdomen and pelvis were performed without contrast. A dose lowering technique was utilized adhering to the principles of ALARA. COMPARISON STUDY: Abdomen and pelvis CT 07/30/2023. Abdomen and pelvis CT 06/09/2022. FINDINGS: Mild dependent changes seen at the lung bases. No pneumoperitoneum. No pneumatosis. Old severe compression deformity at L4. Additional old compression deformities at T7 and T11 with a T7 vertebroplasty. There are healing right anterior fourth and fifth rib fractures. There are few additional old, healed bilateral rib fractures. No acute fractures identified. The liver, spleen, left adrenal gland, pancreas, and gallbladder are unremarkable. No renal stones or hydronephrosis. Stable 11 mm right adrenal gland nodule. No retroperitoneal lymphadenopathy. No retroperitoneal hematoma. Calcified plaque within the normal caliber abdominal aorta. No pelvic free fluid or pelvic lymphadenopathy. The bladder, uterus, bilateral adnexa are unremarkable. Suboptimal evaluation for bowel pathology due to the lack of intravenous and oral contrast. However, there is no definite bowel wall thickening or obstruction. Colonic diverticulosis. No evidence for acute diverticulitis. Prior appendectomy. IMPRESSION: 1. No acute traumatic process within the abdomen or pelvis. 2. There are healing right anterior fourth and fifth rib fractures. 3. Old compression deformities again noted within the thoracic and lumbar spine. 4. Additional findings as described above. ACT 112: Negative or not required by law. Electronically signed by: Everardo Colin M.D. 09/14/2023 12:[address] 09/14/23 10:56 CT chest diagnostic wo con CT DOSE: 2337.26 mGy.cm CLINICAL HISTORY: 68 years-old Female with fall, back pain. Acute mid back pain status post fall TECHNIQUE: Multiaxial CT images of the chest were performed without contrast. A dose lowering technique was utilized adhering to the principles of ALARA. COMPARISON: CTA chest 08/14/2023, CT abdomen and pelvis 06/17/2022. FINDINGS: 1.9 cm ill-defined hypodense right thyroid nodule. No lymphadenopathy. Cardiomegaly with decreased attenuation of the cardiac blood pool suggestive of anemia. Left atrial exclusion device. Moderate coronary artery calcifications. No thoracic aortic aneurysm. No pneumothorax, pleural effusion or overt pulmonary edema. Mild subpleural subsegmental atelectasis versus scarring. No suspicious pulmonary nodules or masses. Central airways appear patent. No acute upper abdominal abnormality. Lobulations versus lesion of the superior pole right kidney, difficult to evaluate without contrast. Probable left renal cyst. Chronic T7 compression deformity with kyphoplasty. No acute fracture identified. There are healing subacute nondisplaced fractures of the anterior right fourth and fifth ribs with healed chronic right-sided rib fractures. IMPRESSION: 1. Healing subacute and chronic nondisplaced right-sided rib fractures. 2. No pneumothorax. 3. Cardiomegaly. ACT 112: Negative or not required by law. Electronically signed by: Juan J Abad M.D. 09/14/2023 12:08 PM Shoulder X-Ray 09/14/23 10:57 XR shoulder RT min 2V routine HISTORY: 68 years-old Female fall, pain acute right shoulder pain status post fall COMPARISON: Chest CT of same day TECHNIQUE: 3 views of the right shoulder FINDINGS: Moderate AC joint with moderate to severe glenohumeral osteoarthritis. No acute fracture or dislocation. Subacute right-sided rib fractures are better seen on comparison chest CT. IMPRESSION: 1. No acute fracture or dislocation. 2. Subacute anterior right-sided rib fractures are better seen on the same day chest CT. ACT 112: Negative or not required by law. The above report was generated using voice recognition software. It may contain grammatical, syntax or spelling errors. Electronically signed by: Juan J Abad M.D. 09/14/2023 12:09 PM Discharge Plan Visit Data Chief Complaint: Fall Stated Complaint: FALL, BACK PAIN ED Provider: Alex Moyer Discharge Problem: Fall, Back pain, Acute UTI, Acute kidney injury superimposed on CKD Patient Disposition: Being Evaluated by Hospitalist Forms Stand Alone Forms: My [facility] Prescriptions Prescriptions: No Action buspirone 10 mg tablet 10 mg PO BID atorvastatin 80 mg tablet 80 mg PO QPM cyanocobalamin (vitamin B-12) [Vitamin B-12] 1,000 mcg Tablet 1,000 mcg PO QAM folic acid 800 mcg Tablet 0.8 mg PO QAM cholecalciferol (vitamin D3) [Vitamin D3] 1,000 unit Tablet 1,000 unit PO QAM Harvey 3-6-9 1,200 mg Capsule 1 cap PO QAM Rx Instructions: FORMULA HAS GREEN TEA docusate sodium [Colace] 100 mg capsule 100 mg PO BID ascorbic acid (vitamin C) 250 mg Tablet 250 mg PO QAM duloxetine [Cymbalta] 60 mg capsule,delayed release(DR/EC) 120 mg PO QAM sumatriptan succinate 25 mg tablet 25 mg PO DIRECTED MDD 5 TABS/24 HOURS PRN (Reason: Migraine Headache) Rx Instructions: TAKE 50 MG AT ONSET OF SUE, THEN MAY REPEAT WITH 25 MG EVERY 2 HOURS NEEDED. MAX 5 TABS IN 24 HOURS. diphenhydramine HCl [Benadryl] 25 mg Capsule 25 mg PO QAM clotrimazole 1 % Cream 1 applic TOPICAL BID PRN (Reason: Itching) tacrolimus 0.1 % Ointment 1 applic TOPICAL BID oxybutynin chloride 5 mg tablet extended release 24hr 5 mg PO QPM betamethasone dipropionate 0.05 % Ointment 1 applic TOPICAL BID PRN (Reason: RASH FACE/TRUNK/ARMS) calcipotriene 0.005 % cream 1 applic TOPICAL DAILY PRN (Reason: flare up) Saline Mist 0.65 % aerosol,spray 2 spray NA Q6H doxepin 25 mg capsule 25 mg PO HS aspirin 81 mg Tablet,Delayed Release (Dr/Ec) 81 mg PO QAM memantine 10 mg tablet 10 mg PO BID polyethylene glycol 3350 [Miralax] 17 gram Powder In Packet 17 g PO DAILY PRN (Reason: constipation) Qty: 30 0RF tamsulosin 0.4 mg capsule 0.4 mg PO QAM lisinopril 10 mg tablet 10 mg PO QAM pregabalin 100 mg capsule 100 mg PO TID Dupixent Pen 300 mg/2 mL pen injector 300 mg SUBCUT Q14D Rx Instructions: q 2 weeks metoprolol succinate 25 mg Tablet Extended Release 24 Hr 25 mg PO BID Rx Instructions: hold for systolic BP<100,Heartbeat <60 miconazole nitrate [Desenex] 2 % powder 1 applic topical BID oxycodone 5 mg tablet 5 mg PO Q6H PRN (Reason: pain level 6-10 on a 1-10 scale) Referrals Referrals: Nikunj Plascencia MD [Primary Care Provider] - Discharge Problem: Fall Qualifiers: Encounter type: initial encounter Qualified Code(s): W19.XXXA - Unspecified fall, initial encounter
[2023-09-14] MEDS: fentaNYL citrate PF 100 MCG/2 ML VIAL IV STA ×2 (11:05→14:15)
[2023-09-14 11:21] LABS: Basophils # (auto) 0.05 K/uL (0.00-0.20); Basophils % (auto) 0.6 %; Eosinophils # (auto) 0.28 K/uL (0.00-0.50); Eosinophils % (auto) 3.1 %; Hematocrit (blood only) 32.5 % (37.0-47.0); Hemoglobin 9.5 g/dl (12.0-16.0); Immature Granulocytes # (auto) 0.03 K/uL (0.01-0.20); Immature Granulocytes % (auto) 0.3 %; Lymphocytes # (auto) 1.75 K/uL (1.20-3.40); Lymphocytes % (auto) 19.3 %; Mean Corpuscular Hemoglobin 25.6 pg (25.0-34.0); Mean Corpuscular Hgb Conc 29.2 g/dL (32.0-36.0); Mean Corpuscular Volume 87.6 fL (80.0-100.0); Mean Platelet Volume 10.6 fL (9.4-12.4); Monocytes # (auto) 0.93 K/uL (0.11-0.59); Monocytes % (auto) 10.3 %; Neutrophils # (auto) 6.01 K/uL (1.40-6.50); Neutrophils % (auto) 66.4 %; Platelet Count 146 K/uL (130-400); RDW Coefficient of Variation 17.9 % (11.5-14.5); RDW Standard Deviation 57.5 fL (36.4-46.3); Red Blood Count 3.71 M/uL (4.20-5.40); White Blood Count 9.05 K/ul (4.8-10.8)
[2023-09-14 11:42] LABS: Albumin Globulin Ratio 1.2 (0.9-2); Albumin Level 3.4 gm/dl (3.4-5.0); BUN Creatinine Ratio 15.3 (10-20); Bilirubin,Total 0.4 mg/dl (0.2-1.0); Calcium 8.6 mg/dl (8.6-10.3); Creatinine Clr Calc Pharmacy 33.8 ml/min; Est GFR (Non-African American) 21.5 ml/min; Globulin 2.9 gm/dl (2.5-4.0); Potassium 4.4 mmol/L (3.5-5.1); Prothrombin Time 10.9 Seconds (9.0-12.0); Total Protein 6.3 gm/dl (6.0-8.3)
[2023-09-14 11:46] LABS: Troponin I High Sensitivity 24.2 pg/ml (0-14)
--- NOTE | 2023-09-14 11:46 | Electrocardiogram Report ---
Test Reason : Blood Pressure : / mmHG Vent. Rate : 068 BPM Atrial Rate : 068 BPM P-R Int : 144 ms QRS Dur : 076 ms QT Int : 392 ms P-R-T Axes : 024 -18 -06 degrees QTc Int : 416 ms Normal sinus rhythm Voltage criteria for left ventricular hypertrophy Borderline ECG When compared with ECG of 14-AUG-2023 16:23, No significant change was found Confirmed by Nikunj Roper ([id number]) on 09/14/2023 11:46:07 AM Referred By: Confirmed By:Nikunj Roper
[2023-09-14] MEDS: SODIUM CHLORIDE 0.9% 500 ML IV ONE (12:01)
[2023-09-14] MEDS: ACETAMINOPHEN 1,000 MG/100 ML VIAL IV STA (12:01)
--- NOTE | 2023-09-14 12:09 | CT Scan Report ---
CT chest diagnostic wo con CT DOSE: 2337.26 mGy.cm CLINICAL HISTORY: 68 years-old Female with fall, back pain. Acute mid back pain status post fall TECHNIQUE: Multiaxial CT images of the chest were performed without contrast. A dose lowering techni que was utilized adhering to the principles of ALARA. COMPARISON: CTA chest 08/14/2023, CT abdomen and pelvis 06/17/2022. FINDINGS: 1.9 cm ill-defined hypodense right thyroid nodule. No lymphadenopathy. Cardiomegaly with de creased attenuation of the cardiac blood pool suggestive of anemia. Left atrial exclusion device. Mod erate coronary artery calcifications. No thoracic aortic aneurysm. No pneumothorax, pleural effusion or overt pulmonary edema. Mild subpleural subsegmental atelectasis versus scarring. No suspicious pul monary nodules or masses. Central airways appear patent. No acute upper abdominal abnormality. Lobula tions versus lesion of the superior pole right kidney, difficult to evaluate without contrast. Probab le left renal cyst. Chronic T7 compression deformity with kyphoplasty. No acute fracture identified. There are healing bradford bacute nondisplaced fractures of the anterior right fourth and fifth ribs with healed chronic right-s ided rib fractures. IMPRESSION: 1. Healing subacute and chronic nondisplaced right-sided rib fractures. 2. No pneumothorax. 3. Cardiomegaly. ACT 112: Negative or not required by law. Electronically signed by: Juan J Abad M.D. 09/14/2023 12:08 PM
--- NOTE | 2023-09-14 12:10 | CT Scan Report ---
ABDOMEN AND PELVIS CT WITHOUT CONTRAST CT DOSE: HISTORY: fall back pain TECHNIQUE: Multiaxial CT images of the abdomen and pelvis were performed without contrast. A dose lo wering technique was utilized adhering to the principles of ALARA. COMPARISON STUDY: Abdomen and pelvis CT 07/30/2023. Abdomen and pelvis CT 06/09/2022. FINDINGS: Mild dependent changes seen at the lung bases. No pneumoperitoneum. No pneumatosis. Old sev ere compression deformity at L4. Additional old compression deformities at T7 and T11 with a T7 verte broplasty. There are healing right anterior fourth and fifth rib fractures. There are few additional old, healed bilateral rib fractures. No acute fractures identified. The liver, spleen, left adrenal g land, pancreas, and gallbladder are unremarkable. No renal stones or hydronephrosis. Stable 11 mm rig ht adrenal gland nodule. No retroperitoneal lymphadenopathy. No retroperitoneal hematoma. Calcified p laque within the normal caliber abdominal aorta. No pelvic free fluid or pelvic lymphadenopathy. The bladder, uterus, bilateral adnexa are unremarkable. Suboptimal evaluation for bowel pathology due to the lack of intravenous and oral contrast. However, there is no definite bowel wall thickening or obs truction. Colonic diverticulosis. No evidence for acute diverticulitis. Prior appendectomy. IMPRESSION: 1. No acute traumatic process within the abdomen or pelvis. 2. There are healing right anterior fourth and fifth rib fractures. 3. Old compression deformities again noted within the thoracic and lumbar spine. 4. Additional findings as described above. ACT 112: Negative or not required by law. Electronically signed by: Everardo Colin M.D. 09/14/2023 12:08 PM
--- NOTE | 2023-09-14 12:10 | XRay Report ---
XR shoulder RT min 2V routine HISTORY: 68 years-old Female fall, pain acute right shoulder pain status post fall COMPARISON: Chest CT of same day TECHNIQUE: 3 views of the right shoulder FINDINGS: Moderate AC joint with moderate to severe glenohumeral osteoarthritis. No acute fracture or dislocati on. Subacute right-sided rib fractures are better seen on comparison chest CT. IMPRESSION: 1. No acute fracture or dislocation. 2. Subacute anterior right-sided rib fractures are better seen on the same day chest CT. ACT 112: Negative or not required by law. The above report was generated using voice recognition software. It may contain grammatical, syntax o r spelling errors. Electronically signed by: Juan J Abad M.D. 09/14/2023 12:09 PM
[2023-09-14 13:02] LABS: Appearance Urine Turbid (Clear); Bacteria Urine Automated 4+ (None Seen); Bilirubin Urine Negative (Negative); Blood Urine 2+ (Negative); Color Urine Dark Yellow; Glucose Urine UA Negative (Negative); Ketones Urine Negative (Negative); Leukocyte Esterase Urine 2+ (Negative); Nitrite Urine Negative (Negative); Protein Urine Trace (Negative); RBC Urine Automated >20 /hpf (0-2); Specific Gravity Urine 1.021 (1.000-1.030); Urobilinogen Urine Negative (Negative); pH Urine 5.5 (4.5-7.5)
--- NOTE | 2023-09-14 13:19 | History & Physical Report ---
Date of Service September 14, 2023 Assessment & Plan (1) Acute kidney injury superimposed on CKD: (2) Acute UTI: (3) Back pain: (4) Fall: (5) Ambulatory dysfunction: (6) Hypertension: (7) Paroxysmal atrial fibrillation: (8) Presence of Watchman left atrial appendage closure device: (9) Severe aortic stenosis: (10) CAD (coronary artery disease): (11) Obesity: (12) Dyslipidemia: (13) Anxiety and depression: Plan This is a 68yo F with a PMH of CAD, PAF s/p watchman in 2022, HTN, HLD, severe aortic stenosis, chronic anemia, CKD III, anxiety, depression, obesity, bullous pemphigoid, and others listed below presented to ER with complaint of fall at home today Fall at home Ambulatory dysfunction No head trauma, some lower back pain Ambulates with walker at baseline CT chest with healing subacute and chronic nondisplaced right-sided rib fractures CT abd/pelvis with no acute traumatic process within the abdomen or pelvis. There are healing right anterior fourth and fifth rib fractures. Old compression deformities again noted within the thoracic and lumbar spine. Shoulder XR with no acute fracture or dislocation Pain control Fall precautions PT/OT evals EDYTA superimposed on CKD Cr 2.29 (baseline Cr: 1.5-1.6) In setting of UTI Lisinopril discontinued on previous admission Daily BMP UTI UA abnormal, follow culture Continue Rocephin CAD (coronary artery disease) Cardiac cath 2016 with moderate diffuse irregularities Continue aspirin, atorvastatin, metoprolol succinate Severe aortic stenosis Chronic exertional SOB and dizziness with known severe aortic stenosis 05/16/23 Echo: EF: 55-59%, severe Due for eval with interventional cardiology at [facility] for upcoming cardiac cath and consideration of TAVR Appears euvolemic currently Chronic anemia Hgb at baseline No acute bleeding issues currently Monitor CBC Paroxysmal atrial fibrillation S/P Watchman 2022 Current sinus rhythm Continue metoprolol Dyslipidemia Continue atorvastatin Hypertension Continue metoprolol succinate Anxiety and depression Continue duloxetine, buspirone Bullous pemphigoid On Dupixent Follows with dermatology Morbidly obese BMI: 47 DVT Ppx: SQ heparin Code status: DNR/DNI PCP: Temo Dispo: admitted to med/surg Patient seen in collaboration with Dr. Pérez. Please see addendum. I spent a total of 75 minutes coordinating, documenting, and providing care for this patient excluding time spent in the performance of separately billed services. History of Present Illness Chief Complaint: fall at home Primary Care Provider: Nikunj Plascencia MD This is a 68yo F with a PMH of CAD, PAF s/p watchman in 2022, HTN, HLD, severe aortic stenosis, chronic anemia, CKD III, anxiety, depression, obesity, bullous pemphigoid, and others listed below presented to ER with complaint of fall at home today. Recently purchased a new mattress that was higher from the ground and lost her ice skater on handrail getting out of bed, fell onto backside. Denies any head trauma or LOC. Was unable to get up on her own and called EMS who bought her to ED for further evaluation. Reports some pain in the mid to lower back but denies any mid abdominal pain or chest pain. Uses oxycodone and pain medicine at home sometimes but did not have any particular pain medicine this morning. Was admitted this past July for fracture of R fibula and metatarsal and then discharged to rehab. Since discharge home from, she has had some increased urinary frequency. Had dysuria previously but that resolved after PO course of antibiotic a few weeks ago. No F/C, lightheadedness. CP, SOB, N/V, abd pain, dysuria, diarrhea or constipation. Allergies Allergy/AdvReac Type Severity Reaction Status Date / Time egg AdvReac Intermediate GI upset Verified 09/14/23 12:47 ibuprofen AdvReac Intermediate stomach Verified 09/14/23 12:47 irritation morphine AdvReac Intermediate LEGS SWELL Verified 09/14/23 12:47 Home Medications Medication Instructions Recorded Confirmed Type atorvastatin 80 mg tablet 80 mg PO QPM 06/16/18 09/14/23 History cholecalciferol (vitamin D3) 25 1,000 unit PO QAM 06/16/18 09/14/23 History mcg (1,000 unit) tablet (Vitamin D3) cyanocobalamin (vitamin B-12) 1,000 mcg PO QAM 06/16/18 09/14/23 History 1,000 mcg tablet (Vitamin B-12) fish, borage, flaxseed oils-omega 1 cap PO QAM 06/16/18 09/14/23 History 3,6,9 comb no.1 1,200 mg capsule ([place] 3-6-9) folic acid 800 mcg tablet 0.8 mg PO QAM 06/16/18 09/14/23 History ascorbic acid (vitamin C) 250 mg 250 mg PO QAM 12/13/19 09/14/23 History tablet docusate sodium 100 mg capsule 100 mg PO BID 12/13/19 09/14/23 History (Colace) duloxetine 60 mg capsule,delayed 120 mg PO QAM 03/16/20 09/14/23 History release (Cymbalta) buspirone 10 mg tablet 10 mg PO BID 06/23/21 09/14/23 History sumatriptan succinate 25 mg tablet 25 mg PO DIRECTED PRN Migraine 08/28/21 09/14/23 History Headache betamethasone dipropionate 0.05 % 1 applic topical BID PRN RASH 03/01/22 09/14/23 History topical ointment FACE/TRUNK/ARMS oxybutynin chloride 5 mg 5 mg PO QPM 03/01/22 09/14/23 History tablet,extended release 24 hr tacrolimus 0.1 % topical ointment 1 applic topical BID itching 03/01/22 09/14/23 History clotrimazole 1 % topical cream 1 applic topical BID PRN Itching 05/23/22 09/14/23 History diphenhydramine HCl 25 mg capsule 25 mg PO QAM 05/23/22 09/14/23 History (Benadryl) aspirin 81 mg tablet,delayed 81 mg PO QAM 07/28/23 09/14/23 History release calcipotriene 0.005 % topical cream 1 applic topical DAILY PRN flare up 07/28/23 09/14/23 History doxepin 25 mg capsule 25 mg PO HS 07/28/23 09/14/23 History memantine 10 mg tablet 10 mg PO BID 07/28/23 09/14/23 History sodium chloride 0.65 % nasal spray 2 spray NA Q6H 07/28/23 09/14/23 History aerosol (Saline Mist) polyethylene glycol 3350 17 gram 17 g PO DAILY PRN constipation #30 08/03/23 09/14/23 Rx oral powder packet (Miralax) ea metoprolol succinate 25 mg 12.5 mg PO BID 08/14/23 09/14/23 History tablet,extended release 24 hr miconazole nitrate 2 % topical 1 applic topical BID 08/14/23 09/14/23 History powder (Desenex) oxycodone 5 mg tablet 5 mg PO Q6H PRN pain level 6-10 on 08/14/23 09/14/23 History a 1-10 scale dupilumab 300 mg/2 mL subcutaneous 300 mg subcut Q14D 09/14/23 09/14/23 History pen injector (Dupixent) lisinopril 10 mg tablet 10 mg PO QAM 09/14/23 09/14/23 History pregabalin 100 mg capsule 100 mg PO TID 09/14/23 09/14/23 History tamsulosin 0.4 mg capsule 0.4 mg PO QAM 09/14/23 09/14/23 History Past Med/Surg History Problem List Acute kidney injury superimposed on CKD (Acute) Acute UTI (Acute) Back pain (Acute) Fall (Acute) Toe laceration (Acute) Right hip pain Hyperkalemia Orthostatic hypotension Hypotension Ambulatory dysfunction (Acute) Metatarsal bone fracture (Acute) Closed fibular fracture (Acute) Fall Presence of Watchman left atrial appendage closure device Paroxysmal atrial fibrillation Bullous pemphigoid Chronic anemia Severe aortic stenosis Closed fracture of proximal end of right fibula Paroxysmal atrial fibrillation Moderate aortic stenosis Atypical chest pain Chest pain (Acute) Acute anterior epistaxis (Acute) Hiatal hernia Uncontrolled hypertension Obesity (Acute) Atrial flutter, paroxysmal Aortic stenosis Bicuspid aortic valve Chronic low back pain GERD (gastroesophageal reflux disease) Dyslipidemia Atrial flutter, paroxysmal Candidal intertrigo DVT prophylaxis Chest pain (Acute) Neurogenic claudication due to lumbar spinal stenosis Feeling of incomplete bladder emptying Anemia Stage 3 chronic kidney disease (Acute) Anxiety and depression CAD (coronary artery disease) non-obstructive Hypertension (Acute) Medical History Nose septum perforation Chronic low back pain Sacroiliitis IBS (irritable bowel syndrome) Borderline diabetes mellitus A-fib "i think i have a-fib." -- on eliquis -- follows with Dr. Torres History of TIA (transient ischemic attack) 2017 Cardiac murmur History of skin cancer History of COVID-19 02/2020; generalized weakness, diarrhea, sob, fever, body aches; hospitalized x 1 week; c/o ongoing brain fog since having covid Verbalizes suicidal thoughts COVID-19 Nocturia Acute urinary retention Back pain Renal failure Morbid obesity BMI 50.5 Carotid artery stenosis "mild" Aortic stenosis Mild (per cardiology review) aortic stenosis with possible bicuspid aortic valve (MG 19mmhg, NIKKIE 3.0) per 05/2018 ECHO Anemia Osteoporosis GERD (gastroesophageal reflux disease) controlled Chronic back pain High cholesterol Hx of falling last fall 09/2018- per patient, related to LBP/balance issues- ? r/t ambulatory dysfunction- improved with cane/walker use Surgical History History of right cataract extraction S/P epidural steroid injection History of appendectomy History of cardiac cath 2016= NO STENTS History of right knee joint replacement History of back surgery Hx of laparoscopy History of kyphoplasty Family History Father Stroke Slow to wake up after anesthesia Myocardial infarction, Onset Age: 40 Mother Stroke Myocardial infarction, Onset Age: 60 Sister Myocardial infarction, Onset Age: 60 Social History Smoking Status: Never smoker Tobacco Type: Cigarettes Second Hand Exposure: Yes; Hx Alcohol Use: No Hx Substance Use: No Preferred Language: Korean Communication Ability: Effective Visual Impairment: No Limitations Hearing Ability: Normal 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 Physical Exam Physical Exam: Please see Dr. Pérez' addendum for physical exam. Results & Data Results & Data Vital Signs (Past 12 Hours) Vital Signs Temp Pulse Resp BP Pulse Ox O2 Del Method 09/14/23 12:33 70 16 100 09/14/23 12:32 142/69 H 09/14/23 12:21 67 17 09/14/23 12:06 70 14 97 09/14/23 11:54 72 19 99 09/14/23 11:05 152/70 H 09/14/23 11:00 69 16 96 09/14/23 10:59 117/44 L 09/14/23 10:57 69 22 09/14/23 10:42 70 15 100 09/14/23 10:41 103/30 L 09/14/23 10:37 96 Room Air 09/14/23 10:37 36.7 C 75 20 103/30 L 96 Room Air 09/14/23 10:36 100 Room Air 09/14/23 10:31 76 Laboratory Results Short CBC 09/14/23 Range/Units 11:00 WBC 9.05 (4.8-10.8) K/ul Hgb 9.5 L (12.0-16.0) g/dl Hct 32.5 L (37.0-47.0) % Plt Count 146 (130-400) K/uL BMP 09/14/23 11:00 Sodium 138 Potassium 4.4 Chloride 107 Carbon Dioxide 26 BUN 35 H Creatinine 2.29 H Glucose 95 Calcium 8.6 Cardiac Enzymes 09/14/23 Range/Units 11:00 Total Creatine Kinase 93 (26-192) U/L Liver Function 09/14/23 Range/Units 11:00 Total Bilirubin 0.4 (0.2-1.0) mg/dl AST 14 (13-39) U/L ALT 10 (7-52) U/L Alkaline Phosphatase 76 (34-104) U/L Albumin 3.4 (3.4-5.0) gm/dl Urine 09/14/23 Range/Units 12:30 Urine Color Dark Yellow Urine Appearance Turbid A (Clear) Urine pH 5.5 (4.5-7.5) Ur Specific [place] 1.021 (1.000-1.030) Urine Protein Trace H (Negative) Urine Glucose (UA) Negative (Negative) Diagnostic Findings Abdomen/Pelvis CT 09/14/23 10:[address] WITHOUT CONTRAST CT DOSE: HISTORY: fall back pain TECHNIQUE: Multiaxial CT images of the abdomen and pelvis were performed without contrast. A dose lowering technique was utilized adhering to the principles of ALARA. COMPARISON STUDY: Abdomen and pelvis CT 07/30/2023. Abdomen and pelvis CT 06/09/2022. FINDINGS: Mild dependent changes seen at the lung bases. No pneumoperitoneum. No pneumatosis. Old severe compression deformity at L4. Additional old compression deformities at T7 and T11 with a T7 vertebroplasty. There are healing right anterior fourth and fifth rib fractures. There are few additional old, healed bilateral rib fractures. No acute fractures identified. The liver, spleen, left adrenal gland, pancreas, and gallbladder are unremarkable. No renal stones or hydronephrosis. Stable 11 mm right adrenal gland nodule. No retroperitoneal lymphadenopathy. No retroperitoneal hematoma. Calcified plaque within the normal caliber abdominal aorta. No pelvic free fluid or pelvic lymphadenopathy. The bladder, uterus, bilateral adnexa are unremarkable. Suboptimal evaluation for bowel pathology due to the lack of intravenous and oral contrast. However, there is no definite bowel wall thickening or obstruction. Colonic diverticulosis. No evidence for acute diverticulitis. Prior appendectomy. IMPRESSION: 1. No acute traumatic process within the abdomen or pelvis. 2. There are healing right anterior fourth and fifth rib fractures. 3. Old compression deformities again noted within the thoracic and lumbar spine. 4. Additional findings as described above. ACT 112: Negative or not required by law. Electronically signed by: Everardo Colin M.D. 09/14/2023 12:[address] 09/14/23 10:56 CT chest diagnostic wo con CT DOSE: 2337.26 mGy.cm CLINICAL HISTORY: 68 years-old Female with fall, back pain. Acute mid back pain status post fall TECHNIQUE: Multiaxial CT images of the chest were performed without contrast. A dose lowering technique was utilized adhering to the principles of ALARA. COMPARISON: CTA chest 08/14/2023, CT abdomen and pelvis 06/17/2022. FINDINGS: 1.9 cm ill-defined hypodense right thyroid nodule. No lymphadenopathy. Cardiomegaly with decreased attenuation of the cardiac blood pool suggestive of anemia. Left atrial exclusion device. Moderate coronary artery calcifications. No thoracic aortic aneurysm. No pneumothorax, pleural effusion or overt pulmonary edema. Mild subpleural subsegmental atelectasis versus scarring. No suspicious pulmonary nodules or masses. Central airways appear patent. No acute upper abdominal abnormality. Lobulations versus lesion of the superior pole right kidney, difficult to evaluate without contrast. Probable left renal cyst. Chronic T7 compression deformity with kyphoplasty. No acute fracture identified. There are healing subacute nondisplaced fractures of the anterior right fourth and fifth ribs with healed chronic right-sided rib fractures. IMPRESSION: 1. Healing subacute and chronic nondisplaced right-sided rib fractures. 2. No pneumothorax. 3. Cardiomegaly. ACT 112: Negative or not required by law. Electronically signed by: Juan J Abad M.D. 09/14/2023 12:08 PM Shoulder X-Ray 09/14/23 10:57 XR shoulder RT min 2V routine HISTORY: 68 years-old Female fall, pain acute right shoulder pain status post fall COMPARISON: Chest CT of same day TECHNIQUE: 3 views of the right shoulder FINDINGS: Moderate AC joint with moderate to severe glenohumeral osteoarthritis. No acute fracture or dislocation. Subacute right-sided rib fractures are better seen on comparison chest CT. IMPRESSION: 1. No acute fracture or dislocation. 2. Subacute anterior right-sided rib fractures are better seen on the same day chest CT. ACT 112: Negative or not required by law. The above report was generated using voice recognition software. It may contain grammatical, syntax or spelling errors. Electronically signed by: Juan J Abad M.D. 09/14/2023 12:09 PM Supervising Physician Co-Signing Physician Notes I have seen and discussed the case with the collaborating advanced practitioner. I agree with the above H&P. I have reviewed and confirmed the patients medical history, the findings on physical examination, and the patients diagnosis and treatment plan with Jovanni BATISTA and agree with the information documented. Ms. Paulino is a 68 year old female with PMH CAD, PAF s/p watchman in 2022, HTN, HLD, severe aortic stenosis, chronic anemia, CKD III, anxiety, depression, obesity, bullous pemphigoid, and others admitted for fall. Patient with new mattress at home and fell off of it as it was too high.She also reports new incontinence and frequency. She notes finishing UTI treatment a "few weeks ago" but the symptoms are returning. GENERAL APPEARANCE: AxOx4, generally well-appearing female, no acute distress. HEENT: NC, AT. MMM. EOMI, clear conjunctiva, oropharynx clear. NECK: Supple without lymphadenopathy. No stiffness or restricted ROM. HEART: Normal rate and regular rhythm, normal S1/S1, no m/r/g LUNGS: CTAB, moving air well. No crackles or wheezes are heard. ABDOMEN: Soft, nontender, nondistended with good bowel sounds heard. BACK: No CVAT, no obvious deformity. EXTREMITIES: Without cyanosis, clubbing or edema. NEUROLOGICAL: Grossly nonfocal. Alert and oriented, moving all 4 extremities. CN not formally tested but appear grossly intact. Observed to ambulate with normal gait. Skin: Warm and dry without any rash. #Mechanical fall imagining negative, Reports soreness on right buttock PT/OT #Acute cystitis UA suspicious with symptoms reported continue CTX Follow cx rest of plan as above I spent a total of 35 minutes coordinating, documenting, and providing care for this patient excluding time spent in the performance of separately billed services. All of the aforementioned completed outside of collaborating with the assigned advanced practitioner for a full treatment plan. I have reviewed the advanced practitioner's documentation, and I agree with, and take responsibility for the plan of care (4) Fall Encounter type: initial encounter Qualified Code(s): W19.XXXA - Unspecified fall, initial encounter (6) Hypertension Hypertension type: primary hypertension Qualified Code(s): I10 - Essential (primary) hypertension (10) CAD (coronary artery disease) Associated angina: without angina Coronary Disease-Associated Artery/Lesion type: [place] artery [place] vs. transplanted heart: [place] heart Qualified Code(s): I25.10 - Atherosclerotic heart disease of [place] coronary artery without angina pectoris (11) Obesity Obesity classification: unspecified obesity classification Obesity type: unspecified obesity type Serious obesity comorbidity presence: unspecified whether serious comorbidity present Qualified Code(s): E66.9 - Obesity, unspecified
[2023-09-14 13:20] LABS: Mucus Urine Present (None Prsent)
[2023-09-14 13:22] LABS: Amorphous Sediment Urine Present (None Prsent)
[2023-09-14] MEDS: cefTRIAXone SODIUM 2,000 MG/50 ML BAG IV STA (13:30)
--- OUTSIDE RECORDS SUMMARY | 2023-09-14 13:58 | External Medical Summary | Summary of Care ---
Author Name Unknown Organization [facility] Address [address] [place] [address] Phone [phone] Care Team Providers Care Library Circulation Clerk Name Role Phone Nikunj Plascencia MD Primary Care Provider [phone] Reason for Visit * Reason Onset Date Comments Scheduling 09/08/2023 Encounter Details Date Type Department Care Team (Late st Contact Info) Description 09/08/2023 Telephone CRS [facility], Cardiac Recovery Suite, [facility] [address] [place] [address] Mireille Yadav, RN Scheduling Allergies Active Allergy Reactions Criticality Noted Date Comments Egg Shells Nausea/vomiting Medium 06/16/2018 Other reaction(s): GI SYMPTOMS Egg Yolk High 11/29/2019 Other reaction(s): GI upset Ibuprofen Other (Please comment) Medium 07/30/2010 Stomach upset Morphine Edema face/lips/tongue High 08/28/2021 Other reaction(s): LEGS SWELL documented as of this encounter (statuses as of 09/08/2023) Medications Medication Sig Dispensed Refills Start Date [...] 30 g 5 05/09/2022 Active Saline Nasal [place] 0.65 % Nasal Solution ([place]) Q6H 06/06/2022 Active Clobetasol Propionate 0.05 % [...] AND EVENING 90 Tablet 3 01/30/2023 Active Acitretin 10 MG Oral Capsule Take [...] once a week. 2 mL 06/27/2023 Active Additional Information Patient not taking.Reported on 09/05/2023 Memantine HCl 10 MG Oral Tablet (Namenda)Indications :Spinal stenosis of lumbar region without neurogenic claudication Take 1 tablet by mouth twice daily 60 Tablet 5 07/13/2023 Active Pregabalin 100 MG Oral Capsule (Lyrica) Take 1 Capsule by mouth in the morning and 1 Capsule at noon and 1 Capsule before bedtime. 90 Capsule 3 07/31/2023 Active Dupixent 300 MG/2ML Subcutaneous Solution Pen-injector (Dupilumab) Inject one pen under the skin every 2 weeks. 4 mL 4 08/07/2023 Active Sulfamethoxazole-Tri methoprim 800-160 MG Oral Tablet (Bactrim DS)Indications:Dysur ia Take 1 Tablet by mouth in the morning and 1 Tablet before bedtime. Do all this for 3 days. Until gone. 6 Tablet 09/05/2023 Active Hospital, Clinic, or Other Facility Administered Medication Ordered Dose Route Frequency Start Date End Date Status atropine sulfate inj 0.4 mgIndications:Chest pain, unspecified type 0.4 mg IV PUSH PRN 01/29/2021 Active documented as of this encounter (statuses as of 09/08/2023) Active Problems Problem Noted Date Diagnosed Date Bullous pemphigoid 09/05/2023 Major depressive disorder, r ecurrent severe without psychotic features 09/05/2023 Generalized anxiety disorder 09/05/2023 Renal stone 03/21/2023 Presence of Watchman left atrial appendage closu re device 12/19/2022 PAF (paroxysmal atrial fibrillation) 08/17/2022 Overview: Added automatically from request for surgery [id number] Nasal septal perforation 06/13/2022 Overview: Per ENT [...] as of this encounter (statuses as of 09/08/2023) Resolved Problems Problem Noted Date Diagnosed Date [...] 140/90 12/12/201111/09 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 07/30/2018 Overview: [place] palsy Tinea 06/27/2011 07/30/2018 Mixed urge and stress incontinence 12/15/2008 10/08/2019 ADVANCE DIRECTIVE INFORMATION 06/17/2004 10/08/2019 documented as of this encounter (statuses as of 09/08/2023) Immunizations Name Administration Dates Next Due COVID-19 mRNA, LNP-s, No Pre serve, 2-Dose Series ([employer]) 10/05/2020,09/14/2020 Covid-19, Mrna, Lnp-s, Pf, B ivalent, 30 Mcg, IM, 12 yrs and above ([employer]) 05/26/2022 Pneumococcal Conjugate Vacc, 13 Valent (Prevnar) 05/30/2016 Pneumococcal Conjugate Vacci ne, 20-valent ([id number]) 04/03/2023 Seasonal Influenza Virus Vac cine, Unspecified [...] have money to get more. Patient declined Childcare Answer Date Recorded Do you feel overwhelmed with taking care of a child, family member or friend? Yes 12/11/2022 Does your family need help f inding childcare? (Household - for ages 0-17 years) Not on file 12/11/2022 Clothing Answer Date Recorded Have you been unable to get clothing when it was really needed? No 12/11/2022 Is your family able to get c lothes or diapers when needed? (Household - for ages 0-17 years) Not on file 12/11/2022 Personal Safety Answer Date Recorded Do you feel unsafe or have concerns for your saf ety? No 12/11/2022 Do you have concerns for you r family's safety? (Household - for ages 0-17 years) Not on file 12/11/2022 Utilities Answer Date Recorded Do you have trouble paying y our heating, water, or electric bill? Yes 12/11/2022 Is your family able to pay t he heat, water, or electric bill? (Household - for ages 0-17 years) Not on file 12/11/2022 Does your family have access to good internet? (Household - for ages 0-17 years) Not on file 12/11/2022 Employment Status Answer Date Recorded Are you unemployed or without regular income? No 12/11/2022 Does the household have a re gular source of income? (Household - for ages 0-17 years) Not on file 12/11/2022 Social Connections Answer Date Recorded How often do you feel lonely or isolated from those around you? Sometimes 12/11/2022 Financial Resource Strain Answer Date R ecorded Do you have any trouble payi ng for your medications, or do you think you might in the future? Yes 12/11/2022 Does your family have troubl e paying for medicine? (Household - for ages 0-17 years) Not on file 12/11/2022 Transportation Needs Answer Date Record ed READ ONLY Do you have troubl e getting a ride to medical visits or work? Often True 12/11/2022 Does your family have a hard time getting a ride to doctors visits? (Household - for ages 0-17 years) Not on file 12/11/2022 Has lack of transportation k ept you from medical appointments, meetings, work, or from getting things needed for daily living? Check all that apply. (Adult - for ages 18 years and over) Not on file 12/11/2022 Do you (or your family) have trouble finding or paying for a ride (transportation)? (Household - for ages 0-17 years) Not on file 12/11/2022 Housing Stability Answer Date Recorded Do you currently live in a s helter or have no steady place to sleep at night? No 12/11/2022 READ ONLY Do you think you a re at risk of becoming homeless? No 12/11/2022 Does your family worry about paying for your home or becoming homeless? (Household - for ages 0-17 years) Not on file 1 Are you homeless or worried that you might be in the future? (Adult - for ages 18 years and over) Not on file Are you (or your family) rodo eless or worried that you might be in the future? (Household - for ages 0-17 years) Not on file Food Insecurity Answer Date Recorded Do you need food for this week? No 12/11/2022 Are you able to get enough f ood for your family? (Household - for ages 0-17 years) Not on file 12/11/2022 Does your family need food t his week? (Household - for ages 0-17 years) Not on file 12/11/2022 Do you always have enough fo od for your family? (Household - for ages 0-17 years) Not on file 12/11/2022 Sex and Gender Information Value Date Recorded [...] Miscellaneous Notes * Telephone Encounter - Mireille Yadav RN - 09/08/2023 2:27 PM EDT Talked to Caroline today, she's back home now after a stay a SNF following a fall and foot fracture. 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 Will discuss with Dr. Penaloza and team and may include Supervisor Painting to see what can possible be done to assist her in getting her to [place] appts [facility] Interventional Valve Nurse Navigator documented in this encounter Plan of Treatment Upcoming Encounters Date Type Department Care Team (Late st Contact Info) Description 09/15/2023 10:00 AM EDT Office Visit Cardiology, [facility] 132 [facility] [place] [address] Gloria Shirley CRNP 132 [facility] [place] [address] 09/27/2023 8:30 AM EDT Appointment Radiology, [address] [address] 10/02/2023 2:00 PM EDT Office Visit Orthopaedics [facility] 132 [facility] [place] [address] Ezio Jacobsen PA-C 132 [facility] [place] [address] 10/09/2023 1:10 PM EDT Nutrition Services Nutrition & Weight Management, [facility] 132 [facility] [place] [address] Mercedez Kim RDN 132 [facility] [address] 10/12/2023 2:00 PM EDT Office Visit Pharmacy, [facility] 132 [facility] [place] [address] [facility] 132 [place] [address] 11/24/2023 2:40 PM EDT Office Visit Podiatry [facility] [address] Eveline Layne, DPGeetha [address] [place], [place] [address] [address] 12/01/2023 1:45 PM EDT Office Visit Dermatology [facility] [address] [place] [address] Cyril Borges MD 16 [place] [address] 12/04/2023 1:00 PM EDT Cardiac Studies Cardiac Studies, [facility] 132 [place] [address] 12/20/2023 2:30 PM EDT Imaging Radiology, [address] [place] [address] 12/20/2023 3:20 PM EDT Office Visit Rheumatology [address] [place] [address] John Yoder MD [address] [place] [address] [place] [address] 01/04/2024 11:30 AM EST Appointment Radiology, [address] [address] 01/04/2024 1:30 PM EST Office Visit Urology, [place] [address] [place] [address] Luis Manuel Sandy MD [facility] [place] [address] 01/09/2024 1:20 PM EST Office Visit Family Practice [facility] 132 [place] [address] Nikunj Plascencia MD 132 [facility] [place] [address] 03/20/2024 2:00 PM EST Office Visit Nephrology, [facility] [address] [place], [place] [address] Geovanni Linder MD [address] [place] [address] Scheduled Procedures Name Priority Associated Diagnoses Date/Ti me ROBOTIC ARTHROPLASTY KNEE TOTAL Knee osteoarthritis COLONOSCOPY FLEXIBLE PROXIMA L DIAGNOSTIC Recall History of colonic polyps Health Maintenance Due Date Last Done Comments Cologuard 2002 Sigmoidoscopy 2002 HOME BP CUFF VALIDATION YEARLY 04/02/2020 04/02/2019 Fecal Occult Blood Test 03/10/2022 03/10/19 22, 03/10/2021, 03/10/2021, Additional history exists COVID-19 Vaccine ( season) 2022 05/26/2022, 05/26/2022, 10/05/2020, Additional history exists Mammogram 11/30/2022 11/30/2021, 05/22, 06/10/2021, Additional history exists Depression Monitoring 12/09/2022 12/09/2021 Zoster Vaccines (2 of 2) 08/22/2023 06/27/2023 Influenza Vaccine (FLU shot) (#1) 2023 12/07/2022, 12/07/2022, 10/21/2021, Additional history exists DXA Scan 12/01/2023 11/30/2021, 08/21, 08/29/2017, Additional history exists GFR 12/17/2023 06/17/2023, 03/0 09/2023, 03/31/2023, Additional history exists Albumin/Creatinine Ratio 09/04/2024 024, 06/13/2022, 03/02/2016 Colonoscopy 03/24/2026 03/24/2021, 08/22, 09/19/2018, Additional history exists Colorectal Cancer Screening 03/24/2026 Diabetes Screening 06/16/2026 06/17/2023, 0 05/01/2023, 04/28/2023, Additional history exists Lipid Panel 04/27/2028 04/28/2023, 02/0 10/2023, 01/11/2021, Additional history exists DTaP,Tdap,and Td Vaccines (3 - Td or Tdap) 01/06/2032 01/05/2022, 11/18/2011 Pap Smear Discontinued 08/05/2019, 07/21, 03/01/2010 RETIRED - COLONOSCOPY-EVERY 5 YRS AGES 18-100 Discontinued 03/24/2021, 09/19/2018, 09/19/2018, Additional history exists Pneumococcal Vaccine: 65+ Years Completed 04/03/2023, 05/30/2016 VITAMIN D LEVEL ONCE IN A LIFETIME-USE SMARTSET# 94549 Completed 06/17/2023, 06/10/2022, 05/28/2021, Additional history exists HPV (Gardasil) Vaccine Aged Out No lo nger eligible based on patient's age to complete this topic Hepatitis B Vaccine Aged Out No longe r eligible based on patient's age to complete this topic MENINGOCOCCAL (MENACTRA/MENVEO) Aged Out No longer eligible based on patient's age to complete this topic documented as of this encounter Medical Devices Implanted Type Area Legal Paraprofessional Device Identifier Shelf Expiration Date Model / Serial / Lot Kyphon Hv-R Bone Cement Implanted:Qty: 1 on 08/17/2016 by Michael Smith MD at OR [facility] N/A: Spine Thoracic 03/19/2019 C01A / C01A / [id number] Cement Bone Lv G 1119-140-01 - [id number] Implanted:Qty: 1 on 06/04/2018 by Duc Kimble MD at OR [facility] Right: Knee [employer] 11/19/2020 00-1119-1 40- / / [id number] Cement Bone Lv G 1119-140-01 - [id number] Implanted:Qty: 1 on 06/04/2018 by Duc Kimble MD at OR [facility] Right: Knee [employer] 06/19/2020-1119-1 40- / / [id number] Persona The Personlized Knee System Vivacit-E Highly Crosslinked Polyethylene All-Poly Patella Cemented Implanted:Qty: 1 on 06/04/2018 by Duc Kimble MD at OR [facility] Right: Knee [employer] 06/19/2022 42-5402-0 00-35 / / [id number] Tibia Stem 5 Deg Rt Size F - [id number] Implanted:Qty: 1 on 06/04/2018 by Duc Kimble MD at OR [facility] Right: Knee [employer] 10/21/2027 42-5320-0 75-02 / / [id number] Persona The Personalized Knee System Femur Cemented Cr Standard Implanted:Qty: 1 on 06/04/2018 by Duc Kimble MD at OR [facility] Right: Knee [employer] 11/20/2027 42-5026-0 62- / / [id number] Persona The Personalized Knee System Vivacit-E Highly Crosslinked Polyethylene Articular Surface Medial Congruent Implanted:Qty: 1 on 06/04/2018 by Duc Kimble MD at OR [facility] Right: Knee [employer] 11/19/2022 42-5221-0 07-12 / / [id number] Device Watchman Flx 24mm - [id number] Implanted:Qty: 1 on 10/06/2022 by Austin Penaloza MD at [facility] [employer] : INTRV CARD [id number] 03/07/2025 [id number] 40 / / [id number] Device Watchman Flx 27mm - [id number] Implanted:Qty: 1 on 10/06/2022 by Austin Penaloza MD at [facility] [employer] : INTRV CARD [id number] 08/07/2025 [id number] 70 / / [id number] documented as of this encounter Advance Directives [...] Power of Attor marcel? No Care Teams Library Circulation Clerk Relationship Specialty Start Date End Date Nikunj Plascencia MD [address] [place] [address] PCP - General Family Medicine 10/31/19 documented as of this encounter
--- OUTSIDE RECORDS SUMMARY | 2023-09-14 13:58 | External Medical Summary | Summary of Care ---
Author Name Unknown Organization [facility] Address [address] [place] [address] Phone [phone] Care Team Providers Care Coiled Coil Inspector Name Role Phone Nikunj Plascencia MD Primary Care Provider [phone] Encounter Details Date Type Department Care Team (Late st Contact Info) Description 09/05/2023 Telephone Family Practice [facility] [place] [address] Dia Limon CRNP [address] [place] [address] Allergies Active Allergy Reactions Criticality Noted Date Comments Egg Shells Nausea/vomiting Medium 06/16/2018 Other reaction(s): GI SYMPTOMS Egg Yolk High 11/29/2019 Other reaction(s): GI upset Ibuprofen Other (Please comment) Medium 07/30/2010 Stomach upset Morphine Edema face/lips/tongue High 08/28/2021 Other reaction(s): LEGS SWELL documented as of this encounter (statuses as of 09/07/2023) Medications Medication Sig Dispensed Refills Start Date [...] 30 g 5 05/09/2022 Active Saline Nasal [place] 0.65 % Nasal Solution ([place]) Q6H 06/06/2022 Active Clobetasol Propionate 0.05 % [...] as of this encounter (statuses as of 09/07/2023) Active Problems Problem Noted Date Diagnosed Date Bullous pemphigoid 09/05/2023 Major depressive disorder, r ecurrent severe without psychotic features 09/05/2023 Generalized anxiety disorder 09/05/2023 Renal stone 03/21/2023 Presence of Watchman left atrial appendage closu re device 12/19/2022 PAF (paroxysmal atrial fibrillation) 08/17/2022 Overview: Added automatically from request for surgery [id number] Nasal septal perforation 06/13/2022 Overview: Per ENT [...] as of this encounter (statuses as of 09/07/2023) Resolved Problems Problem Noted Date Diagnosed Date [...] 140/90 12/12/201111/09 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 07/30/2018 Overview: [place] palsy Tinea 06/27/2011 07/30/2018 Mixed urge and stress incontinence 12/15/2008 10/08/2019 ADVANCE DIRECTIVE INFORMATION 06/17/2004 10/08/2019 documented as of this encounter (statuses as of 09/07/2023) Immunizations Name Administration Dates Next Due COVID-19 mRNA, LNP-s, No Pre serve, 2-Dose Series ([employer]) 10/05/2020,09/14/2020 Covid-19, Mrna, Lnp-s, Pf, B ivalent, 30 Mcg, IM, 12 yrs and above ([employer]) 05/26/2022 Pneumococcal Conjugate Vacc, 13 Valent (Prevnar) 05/30/2016 Pneumococcal Conjugate Vacci ne, 20-valent ([id number]) 04/03/2023 Seasonal Influenza Virus Vac cine, Unspecified [...] Telephone Encounter - Everardo Aguilar OSA - 09/05/2023 12:16 PM EDT Called patient and spoke with her, she is aware of the date and time for the appt. RETURN CARDIOLOGY at 10:00 AM (30 min)Arrive by 9:45 AM Friday September 15, 2023 Appointment Provider:Gloria Shirley CRNP in CARDIOLOGY [facility] * Telephone Encounter - Dia Limon CRNP - 09/05/2023 11:25 AM EDT Please send to cardiology nurse pool -- patient recently discharged from SNF - while there had intermittent episodes of chest pain and did go to ER for chest pain 08/13. She was advised to follow up with cardiology. She did complain of another episode of less severe chest pain radiating to left arm yesterday--only lasted about 30 seconds. Feels fine today. Can she please be scheduled with her soft crab shedder nico for further evaluation. documented in this encounter Plan of Treatment Upcoming Encounters Date Type Department Care Team (Late st Contact Info) Description 09/15/2023 10:00 AM EDT Office Visit Cardiology, [facility] [address] [place] [address] Gloria Shirley CRNP [address] [place] [address] 09/27/2023 8:30 AM EDT Appointment Radiology, [address] [address] 10/02/2023 2:00 PM EDT Office Visit Orthopaedics [facility] 132 [facility] [place] [address] Ezio Jacobsen PA-C [address] [place] [address] 10/09/2023 1:10 PM EDT Nutrition Services Nutrition & Weight Management, [facility] 132 [facility] [place] [address] Mercedez Kim RDN [address] [place] [address] 10/12/2023 2:00 PM EDT Office Visit Pharmacy, [facility] [address] [place] [address] Keegan [facility] [place] [address] 11/24/2023 2:40 PM EDT Office Visit Podiatry [facility] 132 [place] [address] Eveline Layne, JAMAL [address] [place] [address] 12/01/2023 1:45 PM EDT Office Visit Dermatology [address] [address] Cyril Borges MD 16 [place] [address] 12/04/2023 1:00 PM EDT Cardiac Studies Cardiac Studies, [facility] 132 [place] [address] 12/20/2023 2:30 PM EDT Imaging Radiology, [address] [place] [address] 12/20/2023 3:20 PM EDT Office Visit Rheumatology [address] [place] [address] John Yoder MD [address] [place] [address] [place] [address] 01/04/2024 11:30 AM EST Appointment Radiology, [place] [address] [place] [address] 01/04/2024 1:30 PM EST Office Visit Urology, [place] [address] [place] [address] Luis Manuel Sandy MD [address] [place] [address] 01/09/2024 1:20 PM EST Office Visit Family Practice [facility] 132 [place] [address] Nikunj Plascencia MD 132 [place] [address] 03/20/2024 2:00 PM EST Office Visit Nephrology, [facility] [address] [facility] [place], [place] [address] Geovanni Linder MD 200 [facility] [place] [address] Scheduled Procedures Name Priority Associated Diagnoses Date/Ti [...] D LEVEL ONCE IN A LIFETIME-USE SMARTSET# 35190 Completed 06/17/2023, 06/10/2022, 05/28/2021, Additional history exists [...] this encounter Medical Devices Implanted Type Area Steeping Press Tender Device Identifier Shelf Expiration Date Model / Serial / Lot Kyphon Hv-R Bone Cement Implanted:Qty: 1 on 08/17/2016 by Michael Smith MD [place] [facility] N/A: Spine Thoracic 03/19/2019 C01A / C01A / [id number] Cement Bone G 1119-140-01 - [id number] Implanted:Qty: 1 on 06/04/2018 by Duc Kimble MD at OR [facility] Right: Knee [employer] 11/19/2020-1119-1 40 [id number] Cement Bone G 1119-140-01 - [id number] Implanted:Qty: 1 on 06/04/2018 by Duc Kimble MD at OR [facility] Right: Knee [employer] 06/19/2020-1119-1 40 [id number] Persona The Personlized Knee System Vivacit-E Highly Crosslinked Polyethylene All-Poly Patella Cemented Implanted:Qty: 1 on 06/04/2018 by Duc Kimble MD at OR [facility] Right: Knee [employer] 06/19/2022 42-5402-0 00-35 / / [id number] Tibia Stem 5 Deg Rt Size F - [id number] Implanted:Qty: 1 on 06/04/2018 by uDc Kimble MD at OR [facility] Right: Knee [employer] 10/21/2027 42-5320-0 75-02 / / [id number] Persona The Personalized Knee System Femur Cemented Cr Standard Implanted:Qty: 1 on 06/04/2018 by Duc Kimble MD at OR [facility] Right: Knee [employer] 11/20/2027 42-5026-0 62-02 / / [id number] Persona The Personalized Knee System Vivacit-E Highly Crosslinked Polyethylene Articular Surface Medial Congruent Implanted:Qty: 1 on 06/04/2018 by Duc Kimble MD at OR [facility] Right: Knee [employer] 11/19/2022 42-5221-0 07-12 / / [id number] Device Watchman Flx 24mm - [id number] Implanted:Qty: 1 on 10/06/2022 by Austin Penaloza MD at [facility] [employer] : INTRV CARD [id number] 03/07/2025 [id number] 40 / / [id number] Device Watchman Flx 27mm - [id number] Implanted:Qty: 1 on 10/06/2022 by Austin Penaloza MD at [facility] [employer] : INTRV CARD [id number] 08/07/2025 [id number] 70 / / [id number] documented as of this encounter Advance Directives [...] Power of Attor marcel? No Care Teams Coiled Coil Inspector Relationship Specialty Start Date End Date Nikunj Plascencia MD [address] [place] [address] PCP - General Family Medicine 10/31/19 documented as of this encounter
--- OUTSIDE RECORDS SUMMARY | 2023-09-14 13:58 | External Medical Summary | Summary of Care ---
Author Name Unknown Organization [facility] Address [address] [place] [address] Phone [phone] Care Team Providers Care Tangled Yarn Spool Straightener Name Role Phone Nikunj Plascencia MD Primary Care Provider [phone] Reason for Visit * Reason Onset Date Comments Medication Refill 09/13/2023 Encounter Details Date Type Department Care Team (Late st Contact Info) Description 09/13/2023 Refill Dermatology [facility] [address] [place] [address] yCril Borges MD [address] [place], [place] [id number] Allergies Active Allergy Reactions Criticality Noted Date Comments Egg Shells Nausea/vomiting Medium 06/16/2018 Other reaction(s): GI SYMPTOMS Egg Yolk High 11/29/2019 Other reaction(s): GI upset Ibuprofen Other (Please comment) Medium 07/30/2010 Stomach upset Morphine Edema face/lips/tongue High 08/28/2021 Other reaction(s): LEGS SWELL documented as of this encounter (statuses as of 09/13/2023) Medications Medication Sig Dispensed Refills Start Date [...] 30 g 5 05/09/2022 Active Saline Nasal [place] 0.65 % Nasal Solution (Arispe) Q6H 06/06/2022 Active Clobetasol Propionate 0.05 % [...] with breakfast. 90 Capsule 1 02/15/2023 Active Doxepin HCl 25 MG Oral [...] 09/05/2023 Memantine HCl 10 MG Oral Tablet (Namenda)Indication [...] 2 weeks. 4 mL 4 08/07/2023 Active cycloSPORINE 0.05 % Ophthalmic Emulsion (Restasis) Instill 1 drop in each eye every 12 hours. 5.5 mL 5 09/13/2023 Active cycloSPORINE 0.05 % Ophthalmic Emulsion (Restasis) Instill 1 drop in each eye every 12 hours. 5.5 mL 5 02/15/2023 Discontinu ed(Refill) Hospital, Clinic, or Other Facility Administered Medication Ordered Dose Route Frequency Start Date End Date Status atropine sulfate inj 0.4 mgIndications:Chest pain, unspecified type 0.4 mg IV PUSH PRN 01/29/2021 Active documented as of this encounter (statuses as of 09/13/2023) Active Problems Problem Noted Date Diagnosed Date Bullous pemphigoid 09/05/2023 Major depressive disorder, r ecurrent severe without psychotic features 09/05/2023 Generalized anxiety disorder 09/05/2023 Renal stone 03/21/2023 Presence of Watchman left atrial appendage closu re device 12/19/2022 PAF (paroxysmal atrial fibrillation) 08/17/2022 Overview: Added automatically from request for surgery [id number] Nasal septal perforation 06/13/2022 Overview: Per ENT [...] as of this encounter (statuses as of 09/13/2023) Resolved Problems Problem Noted Date Diagnosed Date [...] 140/90 12/12/201111/09 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 07/30/2018 Overview: Theresa palsy Tinea 06/27/2011 07/30/2018 Mixed urge and stress incontinence 12/15/2008 10/08/2019 ADVANCE DIRECTIVE INFORMATION 06/17/2004 10/08/2019 documented as of this encounter (statuses as of 09/13/2023) Immunizations Name Administration Dates Next Due COVID-19 mRNA, LNP-s, No Pre serve, 2-Dose Series ([employer]) 10/05/2020,09/14/2020 Covid-19, Mrna, Lnp-s, Pf, B ivalent, 30 Mcg, IM, 12 yrs and above ([employer]) 05/26/2022 Pneumococcal Conjugate Vacc, 13 Valent (Prevnar) 05/30/2016 Pneumococcal Conjugate Vacci ne, 20-valent ([id number]) 04/03/2023 Seasonal Influenza Virus Vac cine, Unspecified [...] Telephone Encounter - Cyril Borges MD - 09/13/2023 4:17 PM EDT Signed Prescriptions: Disp Refills cycloSPORINE 0.05 % Ophthalmic Emulsion (R*5.5 mL 5 Sig: Instill1 drop in each eye every 12 hours.Authorizing Provider: CYRIL BORGES documented in this encounter Plan of Treatment Upcoming Encounters Date Type Department Care Team (Late st Contact Info) Description 09/15/2023 10:00 AM EDT Office Visit Cardiology, [facility] [place] [address] Gloria Shirley CRNP [facility] [address] 09/27/2023 8:30 AM EDT Appointment Radiology, [address] [place] [address] 10/02/2023 2:00 PM EDT Office Visit Orthopaedics [facility] [address] Ezio [facility]sen [facility] [address] 10/09/2023 1:10 PM EDT Nutrition Services Nutrition & Weight Management, [facility] [address] Mercedez Kim [address]N [facility] [address] 10/12/2023 2:00 PM EDT Office Visit Pharmacy, [facility] [address] [facility] 132 [facility] [place] [address] 11/24/2023 2:40 PM EDT Office Visit Podiatry [facility] 132 [facility] [place] [address] Eveline Layne, JAMAL [address] [place] [address] [place] [address] 12/01/2023 1:45 PM EDT Office Visit Dermatology [facility] [place] 16 [facility] [place] [address] Cyril Borges MD [address] [place] [address] 12/04/2023 1:00 PM EDT Cardiac Studies Cardiac Studies, [facility] 132 [facility] [place] [address] 12/20/2023 2:30 PM EDT Imaging Radiology, [address] [place] [address] 12/20/2023 3:20 PM EDT Office Visit Rheumatology [address] [place] [address] John Yoder MD [address] [place] [address] [place] [address] 01/04/2024 11:30 AM EST Appointment Radiology, [address] [address] 01/09/2024 1:20 PM EST Office Visit Family Practice [facility] 132 [facility] [place] [address] Nikunj Plascencia MD 132 [facility] [place] [address] 03/20/2024 2:00 PM EST Office Visit Nephrology, [facility] 200 [facility] [place] [address] Geovanni Linder MD 200 [facility] [place] [address] Scheduled Procedures Name Priority Associated Diagnoses Date/Ti ct ROBOTIC ARTHROPLASTY KNEE TOTAL Knee osteoarthritis COLONOSCOPY [...] 12/17/2023 06/17/2023, 09/2023, 03/31/2023, Additional history exists Albumin/Creatinine Ratio [...] D LEVEL ONCE IN A LIFETIME-USE SMARTSET# 13831 Completed 06/17/2023, 06/10/2022, 05/28/2021, Additional history exists [...] this encounter Medical Devices Implanted Type Area Controls Project Engineer Device Identifier Shelf Expiration Date Model / Serial / Lot Kyphon Hv-R Bone Cement Implanted:Qty: 1 on 08/17/2016 by Michael Smith MD at OR [facility] N/A: Spine Thoracic 03/19/2019 C01A / C01A / [id number] Cement Bone Lv G 1119-140-01 - [id number] Implanted:Qty: 1 on 06/04/2018 by Duc Kimble MD at OR [facility] Right: Knee [employer] 11/19/20201119-1 40- / / [id number] Cement Bone Lv G 1119-140-01 - [id number] Implanted:Qty: 1 on 06/04/2018 by Duc Kimble MD at OR [facility] Right: Knee [employer] 06/19/20201119- 40- / / [id number] Persona The Personlized Knee System Vivacit-E Highly Crosslinked Polyethylene All-Poly Patella Cemented Implanted:Qty: 1 on 06/04/2018 by Duc Kimble MD at OR [facility] Right: Knee [employer] 06/19/2022 42-5402-0 00-35 / / [id number] Tibia Stem 5 Deg Rt Size F - [id number] Implanted:Qty: 1 on 06/04/2018 by Duc Kimble MD at OR [facility] Right: Knee [employer] 10/21/2027 42-5320-0 75-02 / / [id number] Persona The Personalized Knee System Femur Cemented Cr Standard Implanted:Qty: 1 on 06/04/2018 by Duc Kimble MD at OR [facility] Right: Knee [employer] 11/20/2027 42-5026-0 62-02 / / [id number] Persona The Personalized Knee System Vivacit-E Highly Crosslinked Polyethylene Articular Surface Medial Congruent Implanted:Qty: 1 on 06/04/2018 by Duc Kimble MD at OR [facility] Right: Knee [employer] 11/19/2022 42-5221-0 07-12 / / [id number] Device Watchman Flx 24mm - [id number] Implanted:Qty: 1 on 10/06/2022 by Austin Penaloza MD at CARDIAC LABS [facility] [employer] : INTRV CARD [id number] 03/07/2025 [id number] 40 / / [id number] Device Watchman Flx 27mm - [id number] Implanted:Qty: 1 on 10/06/2022 by Austin Penaloza MD at [facility]ARD[facility]AC LABS [facility] [employer] : INTRV CARD [id number] 08/07/2025 [id number] 70 / / [id number] documented as of this encounter Advance Directives [...] Power of Attor marcel? No Care Teams Tangled Yarn Spool Straightener Relationship Specialty Start Date End Date Nikunj Plascencia MD 132 [place] [address] PCP - General Family Medicine 10/31/19 documented as of this encounter
--- OUTSIDE RECORDS SUMMARY | 2023-09-14 13:58 | External Medical Summary | Summary of Care ---
Author Name Unknown Organization [facility] Address [address] [place] [address] Phone [phone] Care Team Providers Care Roofing Supervisor Name Role Phone Nikunj Plascencia MD Primary Care Provider [phone] Encounter Details Date Type Department Care Team (Late st Contact Info) Description 09/08/2023 Population Health External Data Unspecified Department Allergies Active Allergy Reactions Criticality Noted Date [...] 30 g 5 05/09/2022 Active Saline Nasal [place] 0.65 % Nasal Solution (Lamoure) Q6H 06/06/2022 Active Clobetasol Propionate 0.05 % [...] Overview: Added automatically from request for surgery [id number] Nasal septal perforation 06/13/2022 Overview: Per ENT [...] 140/90 12/12/201111/09 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 07/30/2018 Overview: [place] palsy Tinea 06/27/2011 07/30/2018 Mixed urge and stress incontinence 12/15/2008 10/08/2019 ADVANCE DIRECTIVE INFORMATION 06/17/2004 10/08/2019 documented as of this encounter (statuses as of 09/08/2023) Immunizations Name Administration Dates Next Due COVID-19 mRNA, LNP-s, No Pre serve, 2-Dose Series ([employer]) 10/05/2020,09/14/2020 Covid-19, Mrna, Lnp-s, Pf, B ivalent, 30 Mcg, IM, 12 yrs and above ([employer]) 05/26/2022 Pneumococcal Conjugate Vacc, 13 Valent (Prevnar) 05/30/2016 Pneumococcal Conjugate Vacci ne, 20-valent ([id number]) 04/03/2023 Seasonal Influenza Virus Vac cine, Unspecified [...] 09/15/2023 10:00 AM EDT Office Visit Cardiology, [facility] [address] [place] [address] Gloria Shirley CRNP 132 [place] [address] 09/27/2023 8:30 AM EDT Appointment Radiology, [address] [address] 10/02/2023 2:00 PM EDT Office Visit Orthopaedics [facility] [address] [place] [address] Ezio Jacobsen PA-C 132 [place] [address] 10/09/2023 1:10 PM EDT Nutrition Services Nutrition & Weight Management, [facility] 132 [place] [address] Mercedez Kim RDN 132 [facility] [place] [address] 10/12/2023 2:00 PM EDT Office Visit Pharmacy, [facility] 132 [place] [address] [facility] 132 [place] [address] 11/24/2023 2:40 PM EDT Office Visit Podiatry [facility] 132 [place] [address] Eveline Layne, Geetha [address] [place] [address] 12/01/2023 1:45 PM EDT Office Visit Dermatology [facility] 16 [place] [address] Cyril Borges MD 16 [place] [address] 12/04/2023 1:00 PM EDT Cardiac Studies Cardiac Studies, [facility] 132 [place] [address] 12/20/2023 2:30 PM EDT Imaging Radiology, [address] [place], [place] [address] 12/20/2023 3:20 PM EDT Office Visit Rheumatology [address] [place] [address] John Yoder MD [address] [place] [address] [place] [address] 01/04/2024 11:30 AM EST Appointment Radiology, [address] [address] 01/04/2024 1:30 PM EST Office Visit Urology, [address] [address] Luis Manuel Sandy MD [address] [place] [address] 01/09/2024 1:20 PM EST Office Visit Family Practice [facility] [address] [place] [facility] [place] [address] Nikunj Plascencia MD [address] [facility] [address] 03/20/2024 2:00 PM EST Office Visit Nephrology, [facility] [place] 200 [facility] [place] [address] Geovanni Linder MD [address] [place] [address] Scheduled Procedures Name Priority Associated Diagnoses Date/Ti [...] D LEVEL ONCE IN A LIFETIME-USE SMARTSET# 84241 Completed 06/17/2023, 06/10/2022, 05/28/2021, Additional history exists [...] this encounter Medical Devices Implanted Type Area Field Servicer Device Identifier Shelf Expiration Date Model / Serial / Lot Kyphon Hv-R Bone Cement Implanted:Qty: 1 on 08/17/2016 by Michael Smith MD at OR [facility] N/A: Spine Thoracic 03/19/2019 C01A / C01A / [id number] Cement Bone Lv G 1119-140-01 - [id number] Implanted:Qty: 1 on 06/04/2018 by Duc Kimble MD at OR [facility] Right: Knee [employer] 11/19/20201119-1 40-01 / / [id number] Cement Bone Lv G 1119-140-01 - [id number] Implanted:Qty: 1 on 06/04/2018 by Duc Kimble MD at OR [facility] Right: Knee [employer] 06/19/2020-1119-1 40-01 / / [id number] Persona The Personlized Knee System Vivacit-E Highly Crosslinked Polyethylene All-Poly Patella Cemented Implanted:Qty: 1 on 06/04/2018 by Duc Kimble MD at OR [facility] Right: Knee [employer] 06/19/2022 42-5402-0 00-35 / / [id number] Tibia Stem 5 Deg Rt Size F - [id number] Implanted:Qty: 1 on 06/04/2018 by Duc Kimble MD at OR [facility] Right: Knee [employer] 10/21/2027 42-5320-0 75-02 / / [id number] Persona The Personalized Knee System Femur Cemented Cr Standard Implanted:Qty: 1 on 06/04/2018 by Duc Kimble MD at OR [facility] Right: Knee [employer] 11/20/2027 42-5026-0 62-02 / / [id number] Persona The Personalized Knee System Vivacit-E Highly Crosslinked Polyethylene Articular Surface Medial Congruent Implanted:Qty: 1 on 06/04/2018 by Duc Kimble MD at OR [facility] Right: Knee [employer] 11/19/2022 42-5221-0 07-12 / / [id number] Device Watchman Flx 24mm - [id number] Implanted:Qty: 1 on 10/06/2022 by Austin Penaloza MD at CARDIAC [facility]S [facility] [employer] : INTRV CARD [id number] 03/07/2025 [id number] 40 / / [id number] Device Watchman Flx 27mm - [id number] Implanted:Qty: 1 on 10/06/2022 by Austin Penaloza MD at CARDI[facility]S [facility] [employer] : INTRV CARD [id number] 08/07/2025 [id number] 70 / / [id number] documented as of this encounter Advance Directives [...] Power of Attor marcel? No Care Teams Roofing Supervisor Relationship Specialty Start Date End Date Nikunj Plascencia MD 132 [place] [address] PCP - General Family Medicine 10/31/19 documented as of this encounter
[2023-09-14] MEDS ORDERED: NYSTATIN POWDER 15GM BTL EXT PRN (14:24)
[2023-09-14] MEDS ORDERED: ONDANSETRON INJ 2 MG/ML 2 ML VIAL IV PRN (18:21)
[2023-09-14] MEDS ORDERED: SUMAtriptan succinate 25 MG TAB PO PRN (18:21)
[2023-09-14] MEDS ORDERED: CLOTRIMAZOLE 1% CR 15 GM TUBE TOP PRN (18:21)
[2023-09-14] MEDS ORDERED: POLYETHYLENE (MIRALAX) 17 GM PACK PO PRN (18:21)
[2023-09-14] MEDS ORDERED: FLUOCINONIDE 0.05% OINT 15 GM TUBE EXT PRN (18:50)
[2023-09-14] MEDS: ACETAMINOPHEN 500 MG TAB PO SCH (21:15)
[2023-09-14] MEDS: HEPARIN SOD 5,000 UNIT/0.5 ML VIAL SQ SCH (21:20)
[2023-09-14] MEDS: OXYBUTYNIN CHLORIDE XL 5 MG TABCR PO SCH (21:20)
[2023-09-14] MEDS: DOXEPIN HCL 25 MG CAPSULE PO SCH (21:21)
[2023-09-14] MEDS: MEMANTINE HCL 10 MG TAB PO SCH (21:21)
[2023-09-14] MEDS: DOCUSATE SODIUM 100 MG CAP PO SCH (21:21)
[2023-09-14] MEDS: ATORVASTATIN 40 MG TAB PO SCH (21:22)
[2023-09-14] MEDS: busPIRone 5 MG TAB PO SCH (21:22)
[2023-09-14] MEDS: MICONAZOLE NITRATE POWDER 85 GM TOP SCH (21:23)
[2023-09-14] MEDS: PREGABALIN 100 MG CAP PO SCH (21:34)
[2023-09-14] MEDS: METOPROLOL SUCC 25MG EXT REL TAB PO SCH (21:39)
--- OUTSIDE RECORDS SUMMARY | 2023-09-14 23:49 | External Medical Summary ---
Author Name UNSPECIFIED Address Unknown Organization [facility] History of Encounters Reason for Assessment: Start of care - f urther visits planned Inpatient discharge facility: Past 14 Da ys: [facility] Facility Most Recent Inpatient Discharge Date: Functional Assessment Patient Living Situation: Patient lives with other person(s) in the home: Around the clock When Dyspneic: With moderate exerti on (e.g., while dressing, using commode or bedpan, walking distances less than 20 feet) Urinary Incontinence or Urin nora Catheter Present: Patient is incontinent Bowel Incontinence Frequency: Very rarel y or never has bowel incontinence When Anxious (Reported or Observed): Les s often than daily Cognitive and Behavioral and Psychiatric Symptoms: None Current Ability: Bathing: able to partic ipate in bathing self in shower or tub, but requires presence of another person throughout the bath for assistance or supervision. Current Ability: Ambulation: Able to wal k only with the supervision or assistance of another person at all times. Current: Management Of Oral Medications: Able to take medication(s) at the correct times if: (a) individual dosages are prepared in advance by another person; OR (b) another person develops a drug diary or chart Current: Management Of Injec table Medications: Able to take injectable medication(s) at the correct times if: (a) individual syringes are prepared in advance by another person; OR (b) another person develops a drug diary or chart. Procedures Treated for Urinary Tract Infection in P ast 14 Days: Yes Problems Primary Home Care Diagnosis ICD Code: S8 2.831D, Oth fx upr & low end r fibula, subs for clos fx w routn heal Home Care Diagnosis 1: ICD Code: S92.354 D, Nondisp fx of 5th metatarsal bone, r ft, 7thD Home Care Diagnosis 1: Severity Ratin Home Care Diagnosis 2: ICD Code: I35.0, Nonrheumatic aortic (valve) stenosis Home Care Diagnosis 2: Severity Ratin Home Care Diagnosis 3: ICD Code: I48.0, Paroxysmal atrial fibrillation Home Care Diagnosis 3: Severity Ratin Home Care Diagnosis 4: ICD Code: I25.10, Athscl heart disease of [place] coronary artery w/o ang pctrs Home Care Diagnosis 4: Severity Ratin Home Care Diagnosis 5: ICD Code: I12.9, Hypertensive chronic kidney disease w stg 1-4/unsp chr kdny Home Care Diagnosis 5: Severity Ratin
--- OUTSIDE RECORDS SUMMARY | 2023-09-14 23:49 | External Medical Summary ---
Author Name UNSPECIFIED Address Unknown Organization [facility] History of Encounters Reason for Assessment: Start of care - f urther visits planned Inpatient discharge facility: Past 14 Da ys: Discharged from [facility] Facility Most Recent Inpatient Discharge Date: Functional [...] ICD Code: I25.10, Athscl heart disease of [place] coronary artery w/o ang pctrs Home Care Diagnosis 4: Severity Ratin Home Care Diagnosis 5: ICD Code: I12.9, Hypertensive chronic kidney disease w stg 1-4/unsp chr kdny Home Care Diagnosis 5: Severity Ratin
[2023-09-15 07:24] LABS: Hematocrit (blood only) 32.3 % (37.0-47.0); Hemoglobin 9.5 g/dl (12.0-16.0); Mean Corpuscular Hemoglobin 25.7 pg (25.0-34.0); Mean Corpuscular Hgb Conc 29.4 g/dL (32.0-36.0); Mean Corpuscular Volume 87.3 fL (80.0-100.0); Mean Platelet Volume 10.8 fL (9.4-12.4); Platelet Count 141 K/uL (130-400); RDW Coefficient of Variation 17.7 % (11.5-14.5); RDW Standard Deviation 56.8 fL (36.4-46.3); White Blood Count 9.48 K/ul (4.8-10.8)
[2023-09-15 07:54] LABS: BUN Creatinine Ratio 19.6 (10-20); Calcium 7.9 mg/dl (8.6-10.3); Creatinine Clr Calc Pharmacy 46.1 ml/min; Est GFR (African American) 36.3 ml/min; Est GFR (Non-African American) 31.3 ml/min; Potassium 4.5 mmol/L (3.5-5.1)
[2023-09-15] MEDS: SODIUM CHLORIDE 0.65% NA SOLN 45 ML (OCEAN) SCH (08:14)
[2023-09-15] MEDS: ASCORBIC ACID 500 MG TAB PO SCH (08:16)
[2023-09-15] MEDS: ASPIRIN 81 MG ECTAB PO SCH (08:17)
[2023-09-15] MEDS: CHOLECALCIFEROL 25 MCG (1000 UNITS) TAB PO SCH (08:18)
[2023-09-15] MEDS: CYANOCOBALAMIN (B-12) 500 MCG TABLET PO SCH (08:19)
[2023-09-15] MEDS: diphenhydrAMINE Capsule 25 MG CAP PO SCH (08:19)
[2023-09-15] MEDS: DULoxetine HCL 60 MG CAP PO SCH (08:20)
[2023-09-15] MEDS: OMEGA-3 (PURIFIED FISH OIL) 1 GM CAP PO SCH (08:21)
[2023-09-15] MEDS: FOLIC ACID 400 MCG TAB PO SCH (08:21)
[2023-09-15] MEDS: lisinopril 10 MG TAB PO SCH (08:22)
[2023-09-15] MEDS: TAMSULOSIN HCL 0.4 MG CAP PO SCH (08:24)
[2023-09-15] MEDS ORDERED: CHOLECALCIFEROL 25 MCG (1000 UNITS) TAB PO SCH (09:00)
[2023-09-15 11:40] LABS: Cdiff Antigen Negative; Cdiff Toxin A+B Negative Cdiff Toxin (Negative); Cdiff Toxin B Gene (2yr or >) Positive Cdiff Gene (Neg)
--- NOTE | 2023-09-15 15:23 | Hospitalist Progress Note ---
Date of Service September 15, 2023 Assessment & Plan (1) Acute kidney injury superimposed on CKD: (2) Acute UTI: (3) Back pain: (4) Fall: (5) Ambulatory dysfunction: (6) Hypertension: (7) Paroxysmal atrial fibrillation: (8) Presence of Watchman left atrial appendage closure device: (9) Severe aortic stenosis: (10) CAD (coronary artery disease): (11) Obesity: (12) Dyslipidemia: (13) Anxiety and depression: Plan This is a 68yo F with a PMH of CAD, PAF s/p watchman in 2022, HTN, HLD, severe aortic stenosis, chronic anemia, CKD III, anxiety, depression, obesity, bullous pemphigoid, and others listed below presented to ER with complaint of fall at home. Mechanical Fall Ambulatory dysfunction No head trauma Ambulates with walker at baseline --CT chest with healing subacute and chronic nondisplaced right-sided rib fractures --CT abd/pelvis with no acute traumatic process within the abdomen or pelvis. There are healing right anterior fourth and fifth rib fractures. Old compression deformities again noted within the thoracic and lumbar spine. --Shoulder XR with no acute fracture or dislocation Pain control Fall precautions PT/OT eval EDYTA on CKD III Baseline Cr: 1.5-1.6 Received IV fluids Creatinine 1.6 today Monitor renal function May need to hold lisinopril if Cr worse again UTI Urine culture not contributory Continue Rocephin to complete 3-day course Diarrhea Stool for C. difficile gene positive, toxin negative Empirically started on p.o. vancomycin CAD (coronary artery disease) Cardiac cath 2016 with moderate diffuse irregularities Continue aspirin, atorvastatin, metoprolol succinate Severe aortic stenosis Chronic exertional SOB and dizziness with known severe aortic stenosis 05/16/23 Echo: EF: 55-59%, severe Due for eval with interventional cardiology at [facility] for upcoming cardiac cath and consideration of TAVR Appears euvolemic currently Chronic anemia Hgb at baseline No acute bleeding issues currently Monitor CBC Paroxysmal atrial fibrillation S/P Watchman 2022 Current sinus rhythm Continue metoprolol Dyslipidemia Continue atorvastatin Hypertension Continue metoprolol succinate, lisinopril Monitor BP Anxiety and depression Continue duloxetine, buspirone Bullous pemphigoid On Dupixent Follows with dermatology Mild troponin elevation Likely due to renal insufficiency Monitor Morbidly obese BMI: 47 DVT Px: SQ heparin Code status: DNR/DNI Admission and Anticipated Discharge Date Admission Date: September 14, 2023 Subjective Patient is seen and examined at bedside Reports having diarrhea today Reports chronic back pain, chronic right foot pain Denies any dysuria, hematuria today Also denies any chest pain, dyspnea No other complaints Review of Systems Review of Systems: All systems reviewed & are unremarkable except as noted in Subjective Physical Exam Physical Exam: Physical Exam: Vitals signs as noted above General Appearance:Obese, no apparent distress Head: normocephalic, Atraumatic Eyes: normal inspection, EOMI Neck: supple, Trachea midline Respiratory/Chest: Normal breath sounds, CTA, No accessory muscle use Cardiovascular: S1, S2, + murmur Abdomen/GI:Soft, Non tender, Bowel sounds present Extremities/Musculoskeletal:normal inspection, 1+ edema Neurologic/Psych:AAOX3, grossly no focal neurological deficits Skin: normal color, warm Results & Data Results & Data Vital Signs (Past 12 Hours) Vital Signs Temp Pulse Pulse Resp BP BP Pulse Ox 09/15/23 07:57 66 18 114/65 97 09/15/23 07:14 36.4 C L 67 18 90/57 L 95 O2 Del Method 09/15/23 07:57 Room Air 09/15/23 07:14 Room Air Laboratory Results Short CBC 09/15/23 Range/Units 06:50 WBC 9.48 (4.8-10.8) K/ul Hgb 9.5 L (12.0-16.0) g/dl Hct 32.3 L (37.0-47.0) % Plt Count 141 (130-400) K/uL BMP 09/15/23 06:50 Sodium 140 Potassium 4.5 Chloride 111 H Carbon Dioxide 25 BUN 33 H Creatinine 1.68 H D Glucose 85 Calcium 7.9 L (4) Fall Encounter type: initial encounter Qualified Code(s): W19.XXXA - Unspecified fall, initial encounter (6) Hypertension Hypertension type: primary hypertension Qualified Code(s): I10 - Essential (primary) hypertension (10) CAD (coronary artery disease) Coronary Disease-Associated Artery/Lesion type: [place] artery [place] vs. transplanted heart: minto heart Associated angina: without angina Qualified Code(s): I25.10 - Atherosclerotic heart disease of [place] coronary artery without angina pectoris (11) Obesity Obesity classification: unspecified obesity classification Obesity type: unspecified obesity type Serious obesity comorbidity presence: unspecified whether serious comorbidity present Qualified Code(s): E66.9 - Obesity, unspecified
[2023-09-15] MEDS: cefTRIAXone SODIUM 2,000 MG/50 ML BAG IV SCH (15:56)
[2023-09-15] MEDS: VANCOMYCIN HCL 125 MG/2.5ML SOLN PO SCH (17:48)
[2023-09-15] MEDS: CHERRY SYRUP 5 ML UDP PO SCH (18:16)
[2023-09-16] MEDS: oxyCODONE HCL IR 5 MG TAB (IMMEDIATE RELEASE) PO PRN (00:12)
[2023-09-16 06:56] LABS: Hematocrit (blood only) 28.9 % (37.0-47.0); Hemoglobin 8.6 g/dl (12.0-16.0); Mean Corpuscular Hemoglobin 25.6 pg (25.0-34.0); Mean Corpuscular Hgb Conc 29.8 g/dL (32.0-36.0); Mean Platelet Volume 10.8 fL (9.4-12.4); Platelet Count 134 K/uL (130-400); RDW Coefficient of Variation 17.4 % (11.5-14.5); RDW Standard Deviation 54.4 fL (36.4-46.3); Red Blood Count 3.36 M/uL (4.20-5.40); White Blood Count 5.62 K/ul (4.8-10.8)
[2023-09-16 06:58] LABS: Calcium 7.6 mg/dl (8.6-10.3); Magnesium 1.9 mg/dl (1.7-2.4); Potassium 4.8 mmol/L (3.5-5.1)
[2023-09-16 07:03] LABS: BUN Creatinine Ratio 23.5 (10-20); Creatinine Clr Calc Pharmacy 56.9 ml/min; Est GFR (African American) 46.9 ml/min; Est GFR (Non-African American) 40.4 ml/min
--- NOTE | 2023-09-16 16:12 | Hospitalist Progress Note ---
Date of Service September 16, 2023 Assessment & Plan (1) Acute kidney injury superimposed on CKD: (2) Acute UTI: (3) Back pain: (4) Fall: (5) Ambulatory dysfunction: (6) Hypertension: (7) Paroxysmal atrial fibrillation: (8) Presence of Watchman left atrial appendage closure device: (9) Severe aortic stenosis: (10) CAD (coronary artery disease): (11) Obesity: (12) Dyslipidemia: (13) Anxiety and depression: Plan This is a 68yo F with a PMH of CAD, PAF s/p watchman in 2022, HTN, HLD, severe aortic stenosis, chronic anemia, CKD III, anxiety, depression, obesity, bullous pemphigoid, and others listed below presented to ER with complaint of fall at home. Mechanical Fall Ambulatory dysfunction No head trauma Ambulates with walker at baseline --CT chest with healing subacute and chronic nondisplaced right-sided rib fractures --CT abd/pelvis with no acute traumatic process within the abdomen or pelvis. There are healing right anterior fourth and fifth rib fractures. Old compression deformities again noted within the thoracic and lumbar spine. --Shoulder XR with no acute fracture or dislocation Pain control Fall precautions PT/OT eval: Recommends return home Likely discharge tomorrow EDYTA on CKD III Baseline Cr: 1.5-1.6 Received IV fluids Creatinine 1.3 today Monitor renal function Avoid nephrotoxic agents as able UTI Urine culture not contributory Continue Rocephin to complete 3-day course Diarrhea Stool for C. difficile gene positive, toxin negative Empirically started on p.o. vancomycin Diarrhea improving CAD (coronary artery disease) Cardiac cath 2016 with moderate diffuse irregularities Continue aspirin, atorvastatin, metoprolol succinate Severe aortic stenosis Chronic exertional SOB and dizziness with known severe aortic stenosis 05/16/23 Echo: EF: 55-59%, severe Due for eval with interventional cardiology at [facility] [place] for upcoming cardiac cath and consideration of TAVR Appears euvolemic currently Chronic anemia Hgb at baseline No acute bleeding issues currently Monitor CBC Paroxysmal atrial fibrillation S/P Watchman 2022 Current sinus rhythm Continue metoprolol Dyslipidemia Continue atorvastatin Hypertension Continue metoprolol succinate, lisinopril Monitor BP Anxiety and depression Continue duloxetine, buspirone Bullous pemphigoid On Dupixent Follows with dermatology Mild troponin elevation Likely due to renal insufficiency Monitor Morbidly obese BMI: 47 DVT Px: SQ heparin Code status: DNR/DNI Admission and Anticipated Discharge Date Admission Date: September 14, 2023 Subjective Patient is seen and examined at bedside States feeling a lot better today No diarrhea today Right shoulder pain resolved No other new complaints Eager to get discharged Denies any chest pain, dyspnea Review of Systems Review of Systems: All systems reviewed & are unremarkable except as noted in Subjective Physical Exam Physical Exam: Physical Exam: Vitals signs as noted above General Appearance:Obese, no apparent distress Head: normocephalic, Atraumatic Eyes: normal inspection, EOMI Neck: supple, Trachea midline Respiratory/Chest: Normal breath sounds, CTA, No accessory muscle use Cardiovascular: S1, S2, + murmur Abdomen/GI:Soft, Non tender, Bowel sounds present Extremities/Musculoskeletal:normal inspection, 1+ edema Neurologic/Psych:AAOX3, grossly no focal neurological deficits Skin: normal color, warm Results & Data Results & Data Vital Signs (Past 12 Hours) Vital Signs Temp Pulse Resp BP Pulse Ox O2 Del Method 09/16/23 15:42 64 18 93/53 L 09/16/23 07:38 36.5 C 67 18 141/78 H 100 Room Air Laboratory Results Short CBC 09/16/23 Range/Units 06:00 WBC 5.62 (4.8-10.8) K/ul Hgb 8.6 L (12.0-16.0) g/dl Hct 28.9 L (37.0-47.0) % Plt Count 134 (130-400) K/uL BMP 09/16/23 06:00 Sodium 139 Potassium 4.8 Chloride 112 H Carbon Dioxide 25 BUN 32 H Creatinine 1.36 H D Glucose 87 Calcium 7.6 L (4) Fall Encounter type: initial encounter Qualified Code(s): W19.XXXA - Unspecified fall, initial encounter (6) Hypertension Hypertension type: primary hypertension Qualified Code(s): I10 - Essential (primary) hypertension (10) CAD (coronary artery disease) Coronary Disease-Associated Artery/Lesion type: [place] artery [place] vs. transplanted heart: [place] heart Associated angina: without angina Qualified Code(s): I25.10 - Atherosclerotic heart disease of [place] coronary artery without angina pectoris (11) Obesity Obesity classification: unspecified obesity classification Obesity type: unspecified obesity type Serious obesity comorbidity presence: unspecified whether serious comorbidity present Qualified Code(s): E66.9 - Obesity, unspecified
[2023-09-17 07:39] LABS: Hematocrit (blood only) 33.5 % (37.0-47.0); Hemoglobin 10.1 g/dl (12.0-16.0); Mean Corpuscular Hemoglobin 25.8 pg (25.0-34.0); Mean Corpuscular Hgb Conc 30.1 g/dL (32.0-36.0); Mean Corpuscular Volume 85.7 fL (80.0-100.0); Platelet Count 160 K/uL (130-400); RDW Coefficient of Variation 17.6 % (11.5-14.5); RDW Standard Deviation 55.8 fL (36.4-46.3); Red Blood Count 3.91 M/uL (4.20-5.40)
[2023-09-17 08:09] LABS: BUN Creatinine Ratio 23.1 (10-20); Calcium 8.1 mg/dl (8.6-10.3); Est GFR (Non-African American) 46.6 ml/min; Magnesium 1.9 mg/dl (1.7-2.4); Potassium 4.9 mmol/L (3.5-5.1)
--- NOTE | 2023-09-17 12:37 | Hospitalist Progress Note ---
Date of Service September 17, 2023 Assessment & Plan (1) Acute kidney injury superimposed on CKD: (2) Acute UTI: (3) Back pain: (4) Fall: (5) Ambulatory dysfunction: (6) Hypertension: (7) Paroxysmal atrial fibrillation: (8) Presence of Watchman left atrial appendage closure device: (9) Severe aortic stenosis: (10) CAD (coronary artery disease): (11) Obesity: (12) Dyslipidemia: (13) Anxiety and depression: Plan This is a 68yo F with a PMH of CAD, PAF s/p watchman in 2022, HTN, HLD, severe aortic stenosis, chronic anemia, CKD III, anxiety, depression, obesity, bullous pemphigoid, and others listed below presented to ER with complaint of fall at home. Mechanical Fall Ambulatory dysfunction No head trauma Ambulates with walker at baseline --CT chest with healing subacute and chronic nondisplaced right-sided rib fractures --CT abd/pelvis with no acute traumatic process within the abdomen or pelvis. There are healing right anterior fourth and fifth rib fractures. Old compression deformities again noted within the thoracic and lumbar spine. --Shoulder XR with no acute fracture or dislocation Pain control Fall precautions PT/OT eval: Recommends return home Plan to discharge home today EDYTA on CKD III Baseline Cr: 1.5-1.6 Received IV fluids Creatinine 1.2 today Monitor renal function Avoid nephrotoxic agents as able UTI Urine culture not contributory Completed IV Rocephin course Diarrhea Stool for C. difficile gene positive, toxin negative Empirically started on p.o. vancomycin Diarrhea resolved CAD (coronary artery disease) Cardiac cath 2016 with moderate diffuse irregularities Continue aspirin, atorvastatin, metoprolol succinate Severe aortic stenosis Chronic exertional SOB and dizziness with known severe aortic stenosis 05/16/23 Echo: EF: 55-59%, severe Due for [place] [facility] [place] and consideration of TAVR Appears euvolemic currently Chronic anemia Hgb at baseline No acute bleeding issues currently Monitor CBC Paroxysmal atrial fibrillation S/P Watchman 2022 Current sinus rhythm Continue metoprolol Dyslipidemia Continue atorvastatin Hypertension Continue metoprolol succinate, lisinopril Monitor BP Anxiety and depression Continue duloxetine, buspirone Bullous pemphigoid On Dupixent Follows with dermatology Mild troponin elevation Likely due to renal insufficiency Monitor Morbidly obese BMI: 47 DVT Px: SQ heparin Code status: DNR/DNI Disposition Home Admission and Anticipated Discharge Date Admission Date: September 14, 2023 Subjective Patient is seen and examined at bedside Doing well today No new complaints Denies any chest pain, dyspnea, nausea, vomiting, abdominal pain Plan to be discharged home today Review of Systems Review of Systems: All systems reviewed & are unremarkable except as noted in Subjective Physical Exam Physical Exam: Physical Exam: Vitals signs as noted above General Appearance:Obese, no apparent distress Head: normocephalic, Atraumatic Eyes: normal inspection, EOMI Neck: supple, Trachea midline Respiratory/Chest: Normal breath sounds, CTA, No accessory muscle use Cardiovascular: S1, S2, + murmur Abdomen/GI:Soft, Non tender, Bowel sounds present Extremities/Musculoskeletal:normal inspection, 1+ edema Neurologic/Psych:AAOX3, grossly no focal neurological deficits Skin: normal color, warm Results & Data Results & Data Vital Signs (Past 12 Hours) Vital Signs Temp Pulse Resp BP Pulse Ox O2 Del Method 09/17/23 06:55 36.5 C 65 18 116/64 96 Room Air Laboratory Results Short CBC 09/17/23 Range/Units 07:10 WBC 5.30 (4.8-10.8) K/ul Hgb 10.1 L (12.0-16.0) g/dl Hct 33.5 L (37.0-47.0) % Plt Count 160 (130-400) K/uL BMP 09/17/23 07:10 Sodium 139 Potassium 4.9 Chloride 108 H Carbon Dioxide 27 BUN 28 H Creatinine 1.21 H Glucose 78 Calcium 8.1 L (4) Fall Encounter type: initial encounter Qualified Code(s): W19.XXXA - Unspecified fall, initial encounter (6) Hypertension Hypertension type: primary hypertension Qualified Code(s): I10 - Essential (primary) hypertension (10) CAD (coronary artery disease) Coronary Disease-Associated Artery/Lesion type: [place] artery [place] vs. transplanted heart: [place] heart Associated angina: without angina Qualified Code(s): I25.10 - Atherosclerotic heart disease of [place] coronary artery without angina pectoris (11) Obesity Obesity classification: unspecified obesity classification Obesity type: unspecified obesity type Serious obesity comorbidity presence: unspecified whether serious comorbidity present Qualified Code(s): E66.9 - Obesity, unspecified
--- NOTE | 2023-09-17 12:50 | Discharge Summary ---
Date of Service September 17, 2023 Admission HPI Per Admitting Provider This is a 68yo F with a PMH of CAD, PAF s/p watchman in 2022, HTN, HLD, severe aortic stenosis, chronic anemia, CKD III, anxiety, depression, obesity, bullous pemphigoid, and others listed below presented to ER with complaint of fall at home today. Recently purchased a new mattress that was higher from the ground and lost her inflated pad buffer on handrail getting out of bed, fell onto backside. Denies any head trauma or LOC. Was unable to get up on her own and called EMS who bought her to ED for further evaluation. Reports some pain in the mid to lower back but denies any mid abdominal pain or chest pain. Uses oxycodone and pain medicine at home sometimes but did not have any particular pain medicine this morning. Was admitted this past July for fracture of R fibula and metatarsal and then discharged to rehab. Since discharge home from, she has had some increased urinary frequency. Had dysuria previously but that resolved after PO course of antibiotic a few weeks ago. No F/C, lightheadedness. CP, SOB, N/V, abd pain, d ysuria, diarrhea or constipation. Admission Exam Per Admitting Provider GENERAL APPEARANCE: AxOx4, generally well-appearing female, no acute distress. HEENT: NC, AT. MMM. EOMI, clear conjunctiva, oropharynx clear. NECK: Supple without lymphadenopathy. No stiffness or restricted ROM. HEART: Normal rate and regular rhythm, normal S1/S1, no m/r/g LUNGS: CTAB, moving air well. No crackles or wheezes are heard. ABDOMEN: Soft, nontender, nondistended with good bowel sounds heard. BACK: No CVAT, no obvious deformity. EXTREMITIES: Without cyanosis, clubbing or edema. NEUROLOGICAL: Grossly nonfocal. Alert and oriented, moving all 4 extremities. CN not formally tested but appear grossly intact. Observed to ambulate with normal gait. Skin: Warm and dry without any rash. Principal Diagnosis Mechanical Fall Ambulatory dysfunction EDYTA on CKD III Urinary tract infection Diarrhea Discharge Data Allergies Allergy/AdvReac Type Severity Reaction Status Date / Time egg AdvReac Intermediate GI upset Verified 09/14/23 12:47 ibuprofen AdvReac Intermediate stomach Verified 09/14/23 12:47 irritation morphine AdvReac Intermediate LEGS SWELL Verified 09/14/23 12:47 Consultations 09/14/23 12:36 ED Decision to Admit Stat Ordered Studies 09/14/23 10:56 CT abd pelvis wo con Stat CT chest diagnostic wo con Stat Hospital Course (1) Acute kidney injury superimposed on CKD: (2) Acute UTI: (3) Back pain: (4) Fall: (5) Ambulatory dysfunction: (6) Hypertension: (7) Paroxysmal atrial fibrillation: (8) Presence of Watchman left atrial appendage closure device: (9) Severe aortic stenosis: (10) CAD (coronary artery disease): (11) Obesity: (12) Dyslipidemia: (13) Anxiety and depression: Plan This is a 68yo F with a PMH of CAD, PAF s/p watchman in 2022, HTN, HLD, severe aortic stenosis, chronic anemia, CKD III, anxiety, depression, obesity, bullous pemphigoid, and others listed below presented to ER with complaint of fall at home. Mechanical Fall Ambulatory dysfunction No head trauma Ambulates with walker at baseline --CT chest with healing subacute and chronic nondisplaced right-sided rib fractures --CT abd/pelvis with no acute traumatic process within the abdomen or pelvis. There are healing right anterior fourth and fifth rib fractures. Old compression deformities again noted within the thoracic and lumbar spine. --Shoulder XR with no acute fracture or dislocation Pain control Fall precautions PT/OT eval: Recommends return home Plan to discharge home today EDYTA on CKD III Baseline Cr: 1.5-1.6 Received IV fluids Creatinine 1.2 today Monitor renal function Avoid nephrotoxic agents as able UTI Urine culture not contributory Completed IV Rocephin course Diarrhea Stool for C. difficile gene positive, toxin negative Empirically started on p.o. vancomycin Diarrhea resolved CAD (coronary artery disease) Cardiac cath 2016 with moderate diffuse irregularities Continue aspirin, atorvastatin, metoprolol succinate Severe aortic stenosis Chronic exertional SOB and dizziness with known severe aortic stenosis 05/16/23 Echo: EF: 55-59%, severe Due for eval with interventional cardiology at [facility] [place] for upcoming cardiac cath and consideration of TAVR Appears euvolemic currently Chronic anemia Hgb at baseline No acute bleeding issues currently Monitor CBC Paroxysmal atrial fibrillation S/P Watchman 2022 Current sinus rhythm Continue metoprolol Dyslipidemia Continue atorvastatin Hypertension Continue metoprolol succinate, lisinopril Monitor BP Anxiety and depression Continue duloxetine, buspirone Bullous pemphigoid On Dupixent Follows with dermatology Mild troponin elevation Likely due to renal insufficiency Monitor Morbidly obese BMI: 47 DVT Px: SQ heparin Code status: DNR/DNI Disposition Home Total Time Total Time Spent Total Time Spent (In Minutes): 56 Discharge Plan Discharge Items Patient Disposition: Home - Self-Care Reason For Visit: FALL Discharge Diagnosis: Mechanical Fall Ambulatory dysfunction EDYTA on CKD III Urinary tract infection Diarrhea Activity: Per Instructions section Exercise/Sports: Gradually increase as tolerated Non-emergency contact: Primary Care Provider Call non-emergency contact if: you have any medication questions, your symptoms worsen, your pain is concerning for you and you have a fever Follow-up/Referrals: Nikunj Plascencia MD [Primary Care Provider] - Diet: Heart Healthy Diet Texture: Easy to Chew Addtl Attending Provider Instructions: Follow-up with your primary care physician Dr. Plascencia in 1 week -- Complete the antibiotic oral vancomycin as prescribed Seek immediate medical attention if your symptoms reoccur or worsen Please take all medications as instructed on discharge list below. Please call if you have any questions or problems. You can reach a [facility] hospitalist on duty at [facility] 24 hours a day by calling [phone] Pending Studies at Discharge: No Stand-Alone Forms: My [facility] [employer], Smoking Cessation Medications and DC Order Prescriptions: New vancomycin [Vancocin] 125 mg capsule 125 mg PO Q6H 8 Days Qty: 32 0RF Continued buspirone 10 mg tablet 10 mg PO BID atorvastatin 80 mg tablet 80 mg PO QPM cyanocobalamin (vitamin B-12) [Vitamin B-12] 1,000 mcg Tablet 1,000 mcg PO QAM folic acid 800 mcg Tablet 0.8 mg PO QAM cholecalciferol (vitamin D3) [Vitamin D3] 1,000 unit Tablet 1,000 unit PO QAM [place] 3-6-9 1,200 mg Capsule 1 cap PO QAM Rx Instructions: FORMULA HAS GREEN TEA docusate sodium [Colace] 100 mg capsule 100 mg PO BID ascorbic acid (vitamin C) 250 mg Tablet 250 mg PO QAM duloxetine [Cymbalta] 60 mg capsule,delayed release(DR/EC) 120 mg PO QAM sumatriptan succinate 25 mg tablet 25 mg PO DIRECTED MDD 5 TABS/24 HOURS PRN (Reason: Migraine Headache) Rx Instructions: TAKE 50 MG AT ONSET OF SUE, THEN MAY REPEAT WITH 25 MG EVERY 2 HOURS NEEDED. MAX 5 TABS IN 24 HOURS. diphenhydramine HCl [Benadryl] 25 mg Capsule 25 mg PO QAM clotrimazole 1 % Cream 1 applic TOPICAL BID PRN (Reason: Itching) tacrolimus 0.1 % Ointment 1 applic TOPICAL BID oxybutynin chloride 5 mg tablet extended release 24hr 5 mg PO QPM betamethasone dipropionate 0.05 % Ointment 1 applic TOPICAL BID PRN (Reason: RASH FACE/TRUNK/ARMS) calcipotriene 0.005 % cream 1 applic TOPICAL DAILY PRN (Reason: flare up) Saline Mist 0.65 % aerosol,spray 2 spray NA Q6H doxepin 25 mg capsule 25 mg PO HS aspirin 81 mg Tablet,Delayed Release (Dr/Ec) 81 mg PO QAM memantine 10 mg tablet 10 mg PO BID polyethylene glycol 3350 [Miralax] 17 gram Powder In Packet 17 g PO DAILY PRN (Reason: constipation) Qty: 30 0RF tamsulosin 0.4 mg capsule 0.4 mg PO QAM lisinopril 10 mg tablet 10 mg PO QAM pregabalin 100 mg capsule 100 mg PO TID Dupixent Pen 300 mg/2 mL pen injector 300 mg SUBCUT Q14D Rx Instructions: q 2 weeks metoprolol succinate 25 mg Tablet Extended Release 24 Hr 12.5 mg PO BID Rx Instructions: hold for systolic BP<100,Heartbeat <60 miconazole nitrate [Desenex] 2 % powder 1 applic topical BID oxycodone 5 mg tablet 5 mg PO Q6H PRN (Reason: pain level 6-10 on a 1-10 scale) Discharge Orders: Discharge Order (Routine); Ordered 09/17/23 Ordered By: Jorden Enriquez Admission Data Admit Date/Time: 09/14/23 16:54 Attending Provider: Jorden Enriquez Admit Provider: Shara Pérez Primary Care Provider: Nikunj Plascencia Other Providers: Shara Pérez
== END 2023-09-17 15:30 | disposition home or self-care (01) | DRG 683 ==
LOC: ED 10:17 → SUATTDRO 16:54 → 3N 16:54

== ENCOUNTER 2023-10-27 15:35 | Inpatient (IN) ==
--- NOTE | 2023-10-27 17:41 | Emergency Department Note ---
Impression & Plan Fracture, patella, Deep laceration of knee, Acute confusion, Obtunded, Skin tear of elbow without complication ED Provider Note NAME: BREANN PENA AGE: 68 SEX: F : 1955 ARRIVES VIA: Ambulance INFORMANT: Patient, ED PROVIDER(S): Marcelo Staples MD CHIEF COMPLAINT: Fall, HPI: This is a 68-year-old female presenting after a fall. Patient states that she had a ground-level fall. She tripped over a box and struck her elbow/knee. She has a large laceration to the left knee small skin tear to the left elbow. She is unsure if he hit her head. She reports no LOC to nursing. She otherwise has poor mentation and falls asleep/is unable to provide much history and repeats "I do not know ". ROS: unable to obtain PHYSICAL EXAMINATION: General: Resting comfortably, moderate distress due to pain, elevated BMI, disheveled Head: Normocephalic and atraumatic Eyes: Normal inspection, extraocular muscles intact Ear, nose, throat: Normal external exam Neck: Normal range of motion Respiratory: lungs clear to auscultation bilaterally Cardiovascular: Regular rate/rhythm, no murmur GI: soft, nontender, no guarding or rebound Extremities: Left lower extremity and left elbow pain with range of motion. Large 1520 cm laceration to the left knee exposing subcutaneous tissue, small skin tear to the left elbow Neuro: Patient is awake, intermittently alert, conversant, no focal deficits, symmetric face Skin: Excoriation/erythema of skin at the intertriginous areas underneath breasts, abdomen and thighs MEDICAL DECISION MAKING: This is a 68-year-old female presenting after a fall. Patient is limited historian but tells me about the fall where she struck the ground including multiple objects on the way down. She has large 15 to 20 cm deep laceration to the left knee. She has a skin tear to the left elbow. Will do x-rays of the elbow and knee. Will do head CT with C-spine. -Patient's knee laceration does appear to have brisk venous bleeding. Is not able to be stopped with direct pressure. 2 Vicryl sutures were placed in [id number] with hemostasis -Based on size and depth of laceration, concern patient may need OR washout/repair -Discussed with Dr. Baig who will evaluate the patient at bedside. He evaluated and repaired the laceration -X-ray does reveal a likely avulsion fracture of the patella -Dr. Baig recommends antibiotics for the next 5 to 7 days and knee immobilizer -CT imaging of the head and C-spine revealed no acute traumatic process -Chest Xray independently interpreted by me showing no pneumothorax, focal opacity, or pleural effusions. -X-rays of the elbow reveal no acute osseous fracture dislocation per my independent interpretation -Overall the patient is fairly sleepy, arousable but is confused. I do not feel safe discharging her home especially with her current knee injury, laceration. I believe she is high risk of repeated falls. At this time will admit for further management and unsafe discharge plan. -Blood work is reviewed showing anemia worse than her baseline. Otherwise no leukocytosis. Electrolytes are generally within normal limits. She does have a creatinine elevation, double her usual baseline. Differential diagnosis: Intracranial hemorrhage, cervical spine fracture, knee laceration, patellar fracture ER treatment provided: See below Diagnostics interpreted by me: ECG: ECG independently interpreted by me with normal sinus rhythm, rate of 63, normal axis, normal FL, normal QRS, normal QTc, no ST segment elevations consistent with STEMI criteria Cardiac Monitoring: An order was placed for continuous cardiac monitoring. The monitor shows a rate of 89 with sinus rhythm. Laboratory studies: As stated above and show below. Imaging studies: See below. Past Med/Surg History Problem List (Updated 10/28/23 @ 11:14 by Marcelo Staples MD) Skin tear of elbow without complication (Acute) Obtunded (Acute) Acute confusion (Acute) Deep laceration of knee (Acute) Fracture, patella (Acute) Encephalopathy Leg laceration Left knee injury Acute kidney injury superimposed on CKD (Acute) Back pain (Acute) Fall (Acute) Right hip pain Hyperkalemia Orthostatic hypotension Hypotension Ambulatory dysfunction (Acute) Metatarsal bone fracture (Acute) Closed fibular fracture (Acute) Fall Presence of Watchman left atrial appendage closure device Paroxysmal atrial fibrillation Bullous pemphigoid Chronic anemia Severe aortic stenosis Closed fracture of proximal end of right fibula Paroxysmal atrial fibrillation Moderate aortic stenosis Atypical chest pain Chest pain (Acute) Acute anterior epistaxis (Acute) Hiatal hernia Uncontrolled hypertension Obesity (Acute) Atrial flutter, paroxysmal Aortic stenosis Bicuspid aortic valve Chronic low back pain GERD (gastroesophageal reflux disease) Dyslipidemia Atrial flutter, paroxysmal Candidal intertrigo DVT prophylaxis Chest pain (Acute) Neurogenic claudication due to lumbar spinal stenosis Feeling of incomplete bladder emptying Anemia Stage 3 chronic kidney disease (Acute) Anxiety and depression CAD (coronary artery disease) non-obstructive Hypertension (Acute) Medical History Nose septum perforation Chronic low back pain Sacroiliitis IBS (irritable bowel syndrome) Borderline diabetes mellitus A-fib "i think i have a-fib." -- on eliquis -- follows with Dr. Torres History of TIA (transient ischemic attack) 2016 Cardiac murmur History of skin cancer History of COVID-19 02/2020; generalized weakness, diarrhea, sob, fever, body aches; hospitalized x 1 week; c/o ongoing brain fog since having covid Verbalizes suicidal thoughts COVID-19 Nocturia Acute urinary retention Back pain Renal failure Morbid obesity BMI 50.5 Carotid artery stenosis "mild" Aortic stenosis Mild (per cardiology review) aortic stenosis with possible bicuspid aortic valve (MG 19mmhg, NIKKIE 3.0) per 05/2018 ECHO Anemia Osteoporosis GERD (gastroesophageal reflux disease) controlled Chronic back pain High cholesterol Hx of falling last fall 09/2018- per patient, related to LBP/balance issues- ? r/t ambulatory dysfunction- improved with cane/walker use Surgical History History of right cataract extraction S/P epidural steroid injection History of appendectomy History of cardiac cath 2017= NO STENTS History of right knee joint replacement History of back surgery Hx of laparoscopy History of kyphoplasty Family History Father Stroke Slow to wake up after anesthesia Myocardial infarction, Onset Age: 40 Mother Stroke Myocardial infarction, Onset Age: 60 Sister Myocardial infarction, Onset Age: 60 Social History Smoking Status: Former smoker Tobacco Type: Cigarettes Second Hand Exposure: Yes; Hx Alcohol Use: No Hx Substance Use: No (but positive MDMA in urine) Preferred Language: Setswana Communication Ability: Effective Visual Impairment: No Limitations Hearing Ability: Normal Miter Saw Operator Required: No Beliefs That Will Affect Care: None marital status: Single Current Living Situation: Family Current Living Situation Comment: lives with sister current occupational status: unemployed and disabled Feels Safe at Home: Yes Safety Concerns: Feels Safe At This Time Assistive Devices: Glasses and Walker Allergies Allergies Allergy/AdvReac Type Severity Reaction Status Date / Time egg AdvReac Intermediate GI upset Verified 09/14/23 12:47 ibuprofen AdvReac Intermediate stomach Verified 09/14/23 12:47 irritation morphine AdvReac Intermediate LEGS SWELL Verified 09/14/23 12:47 Home Meds Home Medications Medication Instructions Recorded Confirmed atorvastatin 80 mg tablet 80 mg PO QPM 06/16/18 10/27/23 cholecalciferol (vitamin D3) 25 1,000 unit PO QAM 06/16/18 10/27/23 mcg (1,000 unit) tablet (Vitamin D3) cyanocobalamin (vitamin B-12) 1,000 mcg PO QAM 06/16/18 10/27/23 1,000 mcg tablet (Vitamin B-12) fish, borage, flaxseed oils-omega 1 cap PO QAM 06/16/18 10/27/23 3,6,9 comb no.1 1,200 mg capsule (Arbon 3-6-9) folic acid 800 mcg tablet 0.8 mg PO QAM 06/16/18 10/27/23 ascorbic acid (vitamin C) 250 mg 250 mg PO QAM 12/13/19 10/27/23 tablet docusate sodium 100 mg capsule 100 mg PO BID 12/13/19 10/27/23 (Colace) duloxetine 60 mg capsule,delayed 120 mg PO QAM 03/16/20 10/27/23 release (Cymbalta) buspirone 10 mg tablet 10 mg PO BID 06/23/21 10/27/23 sumatriptan succinate 25 mg tablet 25 mg PO DIRECTED PRN Migraine 08/28/21 10/27/23 Headache betamethasone dipropionate 0.05 % 1 applic topical BID PRN RASH 03/01/22 10/27/23 topical ointment FACE/TRUNK/ARMS oxybutynin chloride 5 mg 5 mg PO QPM 03/01/22 10/27/23 tablet,extended release 24 hr tacrolimus 0.1 % topical ointment 1 applic topical BID itching 03/01/22 10/27/23 clotrimazole 1 % topical cream 1 applic topical BID PRN Itching 05/23/22 10/27/23 diphenhydramine HCl 25 mg capsule 25 mg PO QAM 05/23/22 10/27/23 (Benadryl) aspirin 81 mg tablet,delayed 81 mg PO QAM 07/28/23 10/27/23 release calcipotriene 0.005 % topical cream 1 applic topical DAILY PRN flare up 07/28/23 10/27/23 doxepin 25 mg capsule 25 mg PO HS 07/28/23 10/27/23 memantine 10 mg tablet 10 mg PO BID 07/28/23 10/27/23 sodium chloride 0.65 % nasal spray 2 spray NA Q6H 07/28/23 10/27/23 aerosol (Saline Mist) metoprolol succinate 25 mg 12.5 mg PO BID 08/14/23 10/27/23 tablet,extended release 24 hr miconazole nitrate 2 % topical 1 applic topical BID 08/14/23 10/27/23 powder (Desenex) oxycodone 5 mg tablet 5 mg PO Q6H PRN pain level 6-10 on 08/14/23 10/27/23 a 1-10 scale dupilumab 300 mg/2 mL subcutaneous 300 mg subcut Q14D 09/14/23 10/27/23 pen injector (Dupixent) lisinopril 10 mg tablet 10 mg PO QAM 09/14/23 10/27/23 pregabalin 100 mg capsule 100 mg PO TID 09/14/23 10/27/23 tamsulosin 0.4 mg capsule 0.4 mg PO QAM 09/14/23 10/27/23 Previous Rx's Medication Instructions Recorded polyethylene glycol 3350 17 gram 17 g PO DAILY PRN constipation #30 08/03/23 oral powder packet (Miralax) ea Results & Data (ED) Vital Signs Vital Signs - 24 hr 10/27/23 15:32 10/27/23 15:32 10/27/23 17:01 Temperature 36.9 C 36.9 C Temperature Source Oral Oral Pulse Rate 68 Pulse Rate [Apical] 68 Pulse Rhythm Regular Pulse Rhythm [Apical] Regular Pulse Strength Normal Pulse Strength [Apical] Normal Respiratory Rate 18 18 Respiratory Effort / Characteristics Non-Labored Spontaneous Non-Labored Spontaneous Respiratory Depth Normal Normal Respiratory Pattern Regular Regular Blood Pressure 143/76 H 112/31 L Blood Pressure [Right Arm] 143/76 H Blood Pressure Mean 98 53 Blood Pressure Mean [Right Arm] 98 Blood Pressure Position Lying Blood Pressure Position [Right Arm] Lying Pulse Oximetry 95 95 Oxygen Delivery Method Room Air Room Air Sepsis Recent Fever Within 48 Hours No Sepsis New/Unexplained Change in Mental Status N/A Sepsis Action Taken by Nursing No Action Required 10/27/23 17:01 10/27/23 17:01 10/27/23 17:01 Temperature Temperature Source Pulse Rate Pulse Rate [Apical] Pulse Rhythm Pulse Rhythm [Apical] Pulse Strength Pulse Strength [Apical] Respiratory Rate Respiratory Effort / Characteristics Respiratory Depth Respiratory Pattern Blood Pressure 112/31 L 112/31 L 112/31 L Blood Pressure [Right Arm] Blood Pressure Mean 53 53 53 Blood Pressure Mean [Right Arm] Blood Pressure Position Blood Pressure Position [Right Arm] Pulse Oximetry Oxygen Delivery Method Sepsis Recent Fever Within 48 Hours Sepsis New/Unexplained Change in Mental Status Sepsis Action Taken by Nursing 10/27/23 17:02 10/27/23 17:02 10/27/23 17:08 Temperature Temperature Source Pulse Rate 64 64 62 Pulse Rate [Apical] Pulse Rhythm Pulse Rhythm [Apical] Pulse Strength Pulse Strength [Apical] Respiratory Rate 14 15 Respiratory Effort / Characteristics Respiratory Depth Respiratory Pattern Blood Pressure Blood Pressure [Right Arm] Blood Pressure Mean Blood Pressure Mean [Right Arm] Blood Pressure Position Blood Pressure Position [Right Arm] Pulse Oximetry Oxygen Delivery Method Sepsis Recent Fever Within 48 Hours Sepsis New/Unexplained Change in Mental Status Sepsis Action Taken by Nursing 10/27/23 17:28 10/27/23 17:28 10/27/23 17:28 Temperature Temperature Source Pulse Rate Pulse Rate [Apical] Pulse Rhythm Pulse Rhythm [Apical] Pulse Strength Pulse Strength [Apical] Respiratory Rate Respiratory Effort / Characteristics Respiratory Depth Respiratory Pattern Blood Pressure 94/53 L 94/53 L 94/53 L Blood Pressure [Right Arm] Blood Pressure Mean 65 65 65 Blood Pressure Mean [Right Arm] Blood Pressure Position Blood Pressure Position [Right Arm] Pulse Oximetry Oxygen Delivery Method Sepsis Recent Fever Within 48 Hours Sepsis New/Unexplained Change in Mental Status Sepsis Action Taken by Nursing 10/27/23 18:00 10/27/23 18:01 10/27/23 18:19 Temperature Temperature Source Pulse Rate 63 Pulse Rate [Apical] 65 Pulse Rhythm Pulse Rhythm [Apical] Regular Pulse Strength Pulse Strength [Apical] Normal Respiratory Rate 18 18 Respiratory Effort / Characteristics Non-Labored Spontaneous Respiratory Depth Normal Respiratory Pattern Regular Blood Pressure 111/63 Blood Pressure [Right Arm] 111/63 Blood Pressure Mean 68 Blood Pressure Mean [Right Arm] 79 Blood Pressure Position Blood Pressure Position [Right Arm] Lying Pulse Oximetry 96 Oxygen Delivery Method Room Air Sepsis Recent Fever Within 48 Hours Sepsis New/Unexplained Change in Mental Status Sepsis Action Taken by Nursing 10/27/23 18:39 10/27/23 19:00 10/27/23 19:39 Temperature Temperature Source Pulse Rate 72 61 61 Pulse Rate [Apical] Pulse Rhythm Pulse Rhythm [Apical] Pulse Strength Pulse Strength [Apical] Respiratory Rate 19 14 12 Respiratory Effort / Characteristics Respiratory Depth Respiratory Pattern Blood Pressure 89/68 L 101/56 L Blood Pressure [Right Arm] Blood Pressure Mean 75 71 Blood Pressure Mean [Right Arm] Blood Pressure Position Blood Pressure Position [Right Arm] Pulse Oximetry Oxygen Delivery Method Sepsis Recent Fever Within 48 Hours Sepsis New/Unexplained Change in Mental Status Sepsis Action Taken by Nursing Laboratory Data 10/28/23 05:31 10/28/23 05:31 Lab Results 10/27/23 Range/Units 15:50 WBC 9.32 (4.8-10.8) K/ul RBC 3.54 L (4.20-5.40) M/uL Hgb 9.1 L (12.0-16.0) g/dl Hct 31.0 L (37.0-47.0) % MCV 87.6 (80.0-100.0) fL MCH 25.7 (25.0-34.0) pg MCHC 29.4 L (32.0-36.0) g/dL RDW Std Deviation 55.1 H (36.4-46.3) fL RDW Coeff of Brandy 17.0 H (11.5-14.5) % Plt Count 121 L (130-400) K/uL MPV 12.8 H (9.4-12.4) fL Immature Gran % (Auto) 0.3 % Neut % (Auto) 65.8 % Lymph % (Auto) 20.0 % Stanton % (Auto) 9.4 % Eos % (Auto) 4.1 % Baso % (Auto) 0.4 % Neut # (Auto) 6.13 (1.40-6.50) K/uL Lymph # (Auto) 1.86 (1.20-3.40) K/uL Stanton # (Auto) 0.88 H (0.11-0.59) K/uL Eos # (Auto) 0.38 (0.00-0.50) K/uL Baso # (Auto) 0.04 (0.00-0.20) K/uL Immature Gran # (Auto) 0.03 (0.01-0.20) K/uL Sodium 137 (136-145) mmol/L Potassium 4.8 (3.5-5.1) mmol/L Chloride 106 (98-107) mmol/L Carbon Dioxide 23 (21-32) mmol/L Anion Gap 8 (3-11) BUN 43 H (6-23) mg/dl Creatinine 2.36 H (0.6-1.2) mg/dl Est Cr Clr Drug Dosing 28.9 ml/min Est GFR ( Amer) 24.1 ml/min Est GFR (Non-Af Amer) 20.8 ml/min BUN/Creatinine Ratio 18.2 (10-20) Glucose 100 H (70-99(Fasting)) mg/dl Calcium 8.4 L (8.6-10.3) mg/dl Magnesium 2.3 (1.7-2.4) mg/dl Total Bilirubin 0.4 (0.2-1.0) mg/dl Direct Bilirubin 0.1 (0-0.2) mg/dl AST 16 (13-39) U/L ALT 11 (7-52) U/L Alkaline Phosphatase 65 (34-104) U/L Total Creatine Kinase 69 (26-192) U/L Total Protein 6.7 (6.0-8.3) gm/dl Albumin 3.5 (3.4-5.0) gm/dl Administered Medications Atorvastatin Calcium (Atorvastatin 40 Mg Tab) 80 mg PO QPM PEGGY Stop: 11/26/23 23:09 Last Admin: 10/27/23 23:29 Dose: 80 mg Documented By: CONNOR Docusate Sodium (Docusate Sodium 100 Mg Cap) 100 mg PO BID PEGGY Stop: 11/26/23 23:14 Last Admin: 10/28/23 09:19 Dose: 100 mg Documented By: Admin: 10/27/23 23:31 Dose: Not Given Documented By: CONNOR Duloxetine HCl (Dulox[facility] Hcl 60 Mg Cap) [facility] Stop: 11/27/23 08:59 Last Admin: 10/28/23 09:18 Dose: 120 mg Documented By: CHANA Folic Acid (Folic Acid 400 Mcg Tab) 800 mcg PO QAM [facility] Stop: 11/27/23 08:59 Last Admin: 10/28/23 09:20 Dose: 800 mcg Documented By: CHANA Cefazolin Sodium (Ancef 2000mg) 2,000 mg in 15 mls @ 3.75 mls/min IV Q8H [facility] Stop: 11/04/23 07:59 Last Admin: 10/28/23 09:17 Dose: 3.75 mls/min Documented By: CHANA Memantine (Memantine Hcl 10 Mg Tab) 10 mg PO BID [facility] Stop: 11/26/23 23:09 Last Admin: 10/28/23 09:19 Dose: 10 mg Documented By: Admin: 10/27/23 23:29 Dose: 10 mg Documented By: CONNOR Metoprolol Succinate (Metoprolol Succ 25mg Ext Rel Tab) 25 mg PO BID [facility] Stop: 11/26/23 23:09 Last Admin: 10/28/23 09:18 Dose: 25 mg Documented By: Admin: 10/27/23 23:29 Dose: 25 mg Documented By: CONNOR Miconazole Nitrate (Miconazole Nitrate Powder 85 Gm) 1 appln EXT PRN PRN PRN Reason: Affected Skin Folds Stop: 11/26/23 21:34 Last Admin: 10/27/23 22:44 Dose: 1 appln Documented By: CONNOR Oxycodone HCl (Oxycodone Hcl Ir 5 Mg Tab (Immediate Release)) 5 mg PO Q6H PRN PRN Reason: pain level 6-10 on a 1-10 scale Stop: 11/10/23 23:08 Last Admin: 10/28/23 09:39 Dose: 5 mg Documented By: Admin: 10/27/23 23:28 Dose: 5 mg Documented By: CONNOR Tamsulosin HCl (Tamsulosin Hcl 0.4 Mg Cap) 0.4 mg PO QAM [facility] Stop: 11/27/23 08:59 Last Admin: 10/28/23 09:19 Dose: 0.4 mg Documented By: CHANA Discontinued Medications Albuterol (Albut/Ipratrop 3mg/0.5mg Neb 3 Ml Vial) 3 ml NEB NOW STA; Protocol Stop: 10/27/23 20:19 Last Admin: 10/28/23 04:21 Dose: Not Given Documented By: CONNOR Albuterol (Albut/Ipratrop 3mg/0.5mg Neb 3 Ml Vial) Confirm Administered Dose 3 ml .ROUTE .STK-MED ONE Stop: 10/27/23 23:48 Last Admin: 10/28/23 06:25 Dose: Not Given Documented By: CONNOR Cefazolin Sodium (Ancef 2000mg) 2,000 mg in 15 mls @ 3.75 mls/min IV NOW STA Stop: 10/27/23 18:27 Last Admin: 10/27/23 18:31 Dose: 3.75 mls/min Documented By: MARCO Sodium Chloride (Nss) 1,000 mls @ 75 mls/hr IV .[id number] ONE Stop: 10/28/23 09:12 Last Infusion: 10/28/23 09:40 Dose: Infused Documented By: Admin: 10/27/23 20:15 Dose: 75 mls/hr Documented By: LASHA Lidocaine/Epinephrine (Lidocaine 1%/Epinephrine 1:100,000 50 Ml Vial) Confirm Administered Dose 1 ml .ROUTE .STK-MED ONE Stop: 10/27/23 16:49 Last Admin: 10/27/23 18:25 Dose: 8 ml Documented By: [id number] Lidocaine/Epinephrine (Lidocaine 1%/Epinephrine 1:100,000 50 Ml Vial) Confirm Administered Dose 1 ml .ROUTE .STK-MED ONE Stop: 10/27/23 17:56 Last Admin: 10/27/23 19:10 Dose: 35 ml Documented By: [id number] Tranexamic Acid (Txa 10% Non-Iv Routes 100 Mg/Ml Vial) Confirm Administered Dose 1,000 mg .ROUTE .STK-MED ONE Stop: 10/27/23 16:45 Last Admin: 10/27/23 18:26 Dose: Not Given Documented By: MARCO Imaging Data Radiologist's Impression: Chest X-Ray 10/27/23 19:38 XR chest 1V portable HISTORY: 68 years-old Female renal failure acute renal failure COMPARISON: Chest CT 09/14/2023 TECHNIQUE: AP view of the chest FINDINGS: Cardiac silhouette is enlarged. Left atrial exclusion device is noted. Pulmonary vascular congestion. Interstitial coarsening without pneumothorax or pleural effusion. Degenerative changes of the shoulders and spine. IMPRESSION: Cardiomegaly with suggestion of interstitial pulmonary edema. ACT 112: Negative or not required by law. The above report was generated using voice recognition software. It may contain grammatical, syntax or spelling errors. Electronically signed by: Juan J Abad M.D. 10/28/2023 7:43 AM Discharge Plan Visit Data Chief Complaint: Fall Stated Complaint: FALL, AVULSION TO KNEE & ARM ED Provider: Marcelo Staples Discharge Problem: Fracture, patella, Deep laceration of knee, Acute confusion, Obtunded, Skin tear of elbow without complication Patient Disposition: Admitted As Inpatient Discharge Instructions Interventions: ED Discharge Assessment Last Done: 10/27/23 20:15
--- NOTE | 2023-10-27 17:48 | CT Scan Report ---
CT SCAN OF THE BRAIN WITHOUT IV CONTRAST CLINICAL HISTORY: Fall. Head injury. COMPARISON STUDY: CT of the brain dated 06/17/2022 TECHNIQUE: Unenhanced axial CT scan of the brain is performed from the vertex to the skull base. A d ose lowering technique was utilized adhering to the principles of ALARA. The patient was scanned twic e due to motion artifact. FINDINGS: Brain parenchyma: The brain parenchyma is normal in appearance. There is no hemorrhage, mass effect, or evidence of acute territorial ischemia by CT criteria. Nicholson-white matter differentiation is preser david. No extra-axial fluid collection is seen. Ventricles, sulci, cisterns: Normal in configuration. Intracranial vasculature: There is atherosclerotic calcification of the cavernous carotid arteries. Calvarium: Unremarkable. Sinuses and mastoids: There is mild mucosal thickening within the maxillary antra. The remaining para nasal sinuses are clear. The mastoid air cells are well pneumatized. Orbits: The bony orbits are grossly intact. There are bilateral ocular lens implants. IMPRESSION: No acute intracranial abnormality. ACT 112: Negative or not required by law. Electronically signed by: Jonah Farris M.D. 10/27/2023 5:47 PM
--- NOTE | 2023-10-27 17:53 | CT Scan Report ---
CT SCAN OF THE CERVICAL SPINE CLINICAL HISTORY: Fall. Trauma. COMPARISON STUDY: Cervical spine CT dated 06/17/2022. TECHNIQUE: CT scan of the cervical spine is performed from the skull base to the upper thoracic spine . Images are reviewed in the axial, sagittal, and coronal planes. IV contrast was not administered fo r this examination. A dose lowering technique was utilized adhering to the principles of ALARA. The examination is degraded by large body habitus, and by streak artifact from the patient's shoulders. CT DOSE: 2575.24 mGy.cm FINDINGS: Skeletal structures: The skeletal structures are well mineralized. There is no evidence of fracture o r subluxation involving the cervical spine. Vertebral body height and alignment are maintained. Anter ior osteophytes are noted in the lower cervical region. The odontoid process and lateral masses are i ntact. The atlantoaxial articulation is preserved noting productive degenerative change. The spinous processes appear intact. There is mild multilevel facet arthropathy. Intervertebral discs: There is mild to moderate disc space narrowing at C6-C7. Mild narrowing is note d at C5-C6. Central canal: Grossly patent. Soft tissues: The prevertebral and paraspinous soft tissues are within normal limits. There is athero sclerotic calcification of the carotid bulbs. Calvarium: The visualized calvarium at the skull base appears intact. Brain parenchyma: Partially visualized brain parenchyma at the skull base is within normal limits. Sinuses and mastoids: Mild mucosal thickening is noted in the maxillary antra. The mastoid air cells are well pneumatized. Lung apices: Clear as visualized. IMPRESSION: There is no evidence of cervical spine fracture or subluxation. ACT 112: Negative or not required by law. Electronically signed by: Jonah Farris M.D. 10/27/2023 5:51 PM
--- NOTE | 2023-10-27 18:13 | XRay Report ---
LEFT KNEE 2 VIEWS CLINICAL HISTORY: Left knee injury. Fall. FINDINGS: AP and crosstable lateral views of the left knee are compared to study dated 12/30/2021. Th e skeletal structures are osteopenic. Suspect an avulsion fracture along the inferior aspect of the p atella. No additional findings are suspicious for acute fracture. There are severe tricompartmental d egenerative joint space narrowing, bony sclerosis and irregularity along the weightbearing surfaces o f the medial and lateral compartments. There are large marginal osteophytes and patellar these efface . Bony overgrowth is seen along the distal femur and proximal tibia. There is no large joint effusion . There is reticular soft tissue injury/edema. Soft tissue gas medial to the knee is likely related t o laceration. IMPRESSION: 1. Suspect an avulsion fracture along the inferior aspect of the patella. Correlate for point tendern ess. 2. No additional findings are suspicious for acute fracture. 3. Large anterior soft tissue injury with associated edema. 4. Osteopenia and severe arthritic change as above. Electronically signed by: Jonah Farris M.D. 10/27/2023 6:10 PM
--- NOTE | 2023-10-27 18:14 | XRay Report ---
LEFT ELBOW 3 VIEWS CLINICAL HISTORY: Fall. FINDINGS: 3 views of the left elbow are obtained. No prior studies are available for comparison at th e time of dictation. The lateral views are significantly degraded by positioning. The skeletal struct ures are osteopenic. There is no radiographic evidence of acute fracture or dislocation. There is no evidence of joint effusion. Degenerative spurring is seen along the radial head. Enthesophytes arise from the humeral epicondyles. Dorsal soft tissue swelling is observed. IMPRESSION: 1. The examination is degraded by suboptimal positioning. 2. Dorsal soft tissue swelling with no radiographic evidence of acute fracture. Electronically signed by: Jonah Farris M.D. 10/27/2023 6:12 PM
[2023-10-27] MEDS: LIDOCAINE 1%/EPINEPHRINE 1:100,000 50 ML VIAL ONE ×2 (18:25→19:10)
[2023-10-27] MEDS: TXA 10% Non-IV Routes 100 MG/ML VIAL ONE (18:26)
[2023-10-27] MEDS: ceFAZolin 2000MG 2,000 MG/15 ML SYR IV STA (18:31)
[2023-10-27 19:26] LABS: BUN Creatinine Ratio 18.2 (10-20); Calcium 8.4 mg/dl (8.6-10.3); Creatinine Clr Calc Pharmacy 28.9 ml/min; Est GFR (African American) 24.1 ml/min; Est GFR (Non-African American) 20.8 ml/min; Potassium 4.8 mmol/L (3.5-5.1)
[2023-10-27 19:37] LABS: Basophils # (auto) 0.04 K/uL (0.00-0.20); Basophils % (auto) 0.4 %; Eosinophils # (auto) 0.38 K/uL (0.00-0.50); Eosinophils % (auto) 4.1 %; Hemoglobin 9.1 g/dl (12.0-16.0); Immature Granulocytes # (auto) 0.03 K/uL (0.01-0.20); Immature Granulocytes % (auto) 0.3 %; Lymphocytes # (auto) 1.86 K/uL (1.20-3.40); Mean Corpuscular Hemoglobin 25.7 pg (25.0-34.0); Mean Corpuscular Hgb Conc 29.4 g/dL (32.0-36.0); Mean Corpuscular Volume 87.6 fL (80.0-100.0); Mean Platelet Volume 12.8 fL (9.4-12.4); Monocytes # (auto) 0.88 K/uL (0.11-0.59); Monocytes % (auto) 9.4 %; Neutrophils # (auto) 6.13 K/uL (1.40-6.50); Neutrophils % (auto) 65.8 %; Platelet Count 121 K/uL (130-400); RDW Standard Deviation 55.1 fL (36.4-46.3); Red Blood Count 3.54 M/uL (4.20-5.40); White Blood Count 9.32 K/ul (4.8-10.8)
--- NOTE | 2023-10-27 19:51 | History & Physical Report ---
Date of Service October 27, 2023 Assessment & Plan (1) Encephalopathy: Plan: Multifactorial: ARF secondary to decreased p.o. intake from COVID-19 illness Home narcotics/neuropsychotropic medications contributory Traumatic left knee wound History recurrent falls/ambulatory dysfunction chronic diastolic heart failure (EF 60 to 65%, TTE 2022), patient on dry side hx nonocclusive CAD valvular heart disease (severe /mild AR/TR), TAVR contemplated at [facility] paroxysmal atrial flutter status post Watchman procedure history of PE hypertension, BP on the lower side chronic anemia, hemoglobin at baseline history PE bullous pemphigoid on topical Rx anxiety/mood disorder chronic back pain/compression fractures past tobacco abuse OBS Medical telemetry Baseline UA, monitor creatinine response to gentle IVF hydration given valvular heart disease, renal ultrasound if further improvement Hold lisinopril until creatinine back to baseline Appropriate to hold home neuropsychotropic medications until mentation back to baseline Hold aspirin given bleeding left knee wound Resume once H&H stable Orthopedics consult Re: Traumatic left knee wound Patient already seen at the ER by Dr. Baig. Antibiotics recommended post wound repair. PT OT once medically stable Patient may require placement given recurrent falls and comorbidities. DVT prophylaxis. SCDs Re: Traumatic leg wound DNR as per patient's prior directives. Patient requests for sister to be given updates regarding care. Ms. Michaela Paulino, contact #[phone]. Attempted to contact patient's sister via phone. No answer, left message for call back. Text document was generated using [employer] voice recognition software. It may contain grammatical or spelling errors. Kindly contact undersigned for clarification of any documentation item in question. History of Present Illness Chief Complaint: Fall, left knee wound Primary Care Provider: Nikunj Plascencia MD History obtained from patient, family, and records. History somewhat limited from patient due to confusion. Medical history significant for chronic diastolic heart failure (EF 60 to 65%, TTE 2022), nonocclusive CAD, valvular heart disease (severe /mild AR/TR), PSVT, paroxysmal atrial flutter status post Watchman procedure, history of PE, hypertension, urinary incontinence, history PE, chronic anemia (baseline hemoglobin 9 ), IBS, bullous pemphigoid, migraine, anxiety/mood disorder, chronic back pain/compression fractures, recurrent falls, past tobacco abuse. Last confinement August 2023 for mechanical fall. Patient fell at home today after tripping on a box subsequently striking her left elbow and left knee. Patient found by sister. Patient sustained bleeding lacerated wound left knee. Patient face may have hit walker as per brother. Patient denies LOC, chest pain, SOB. Congestion symptoms for few days as per patient. Not sure about sick contacts. Patient initially refused to be brought to ER but later relented. Left knee wound repaired at the ER by orthopedics. IV cefazolin administered at the ER. Medical History as above Surgical History : Knee surgery right, urologic procedures, appendectomy, Watchman procedure, hysteroscopy, endometrial ablation knee surgery Family History : Colon cancer, DM, heart disease, stroke Personal/Social history : Past tobacco abuse, no EtOH intake, retired [employer] employee, lives with sister Allergies Allergy/AdvReac Type Severity Reaction Status Date / Time egg AdvReac Intermediate GI upset Verified 09/14/23 12:47 ibuprofen AdvReac Intermediate stomach Verified 09/14/23 12:47 irritation morphine AdvReac Intermediate LEGS SWELL Verified 09/14/23 12:47 Home Medications Medication Instructions Recorded Confirmed Type atorvastatin 80 mg tablet 80 mg PO QPM 06/16/18 10/27/23 History cholecalciferol (vitamin D3) 25 1,000 unit PO QAM 06/16/18 10/27/23 History mcg (1,000 unit) tablet (Vitamin D3) cyanocobalamin (vitamin B-12) 1,000 mcg PO QAM 06/16/18 10/27/23 History 1,000 mcg tablet (Vitamin B-12) fish, borage, flaxseed oils-omega 1 cap PO QAM 06/16/18 10/27/23 History 3,6,9 comb no.1 1,200 mg capsule ([place] 3-6-9) folic acid 800 mcg tablet 0.8 mg PO QAM 06/16/18 10/27/23 History ascorbic acid (vitamin C) 250 mg 250 mg PO QAM 12/13/19 10/27/23 History tablet docusate sodium 100 mg capsule 100 mg PO BID 12/13/19 10/27/23 History (Colace) duloxetine 60 mg capsule,delayed 120 mg PO QAM 03/16/20 10/27/23 History release (Cymbalta) buspirone 10 mg tablet 10 mg PO BID 06/23/21 10/27/23 History sumatriptan succinate 25 mg tablet 25 mg PO DIRECTED PRN Migraine 08/28/21 10/27/23 History Headache betamethasone dipropionate 0.05 % 1 applic topical BID PRN RASH 03/01/22 10/27/23 History topical ointment FACE/TRUNK/ARMS oxybutynin chloride 5 mg 5 mg PO QPM 03/01/22 10/27/23 History tablet,extended release 24 hr tacrolimus 0.1 % topical ointment 1 applic topical BID itching 03/01/22 10/27/23 History clotrimazole 1 % topical cream 1 applic topical BID PRN Itching 05/23/22 10/27/23 History diphenhydramine HCl 25 mg capsule 25 mg PO QAM 05/23/22 10/27/23 History (Benadryl) aspirin 81 mg tablet,delayed 81 mg PO QAM 07/28/23 10/27/23 History release calcipotriene 0.005 % topical cream 1 applic topical DAILY PRN flare up 07/28/23 10/27/23 History doxepin 25 mg capsule 25 mg PO HS 07/28/23 10/27/23 History memantine 10 mg tablet 10 mg PO BID 07/28/23 10/27/23 History sodium chloride 0.65 % nasal spray 2 spray NA Q6H 07/28/23 10/27/23 History aerosol (Saline Mist) polyethylene glycol 3350 17 gram 17 g PO DAILY PRN constipation #30 08/03/23 10/27/23 Rx oral powder packet (Miralax) ea metoprolol succinate 25 mg 12.5 mg PO BID 08/14/23 10/27/23 History tablet,extended release 24 hr miconazole nitrate 2 % topical 1 applic topical BID 08/14/23 10/27/23 History powder (Desenex) oxycodone 5 mg tablet 5 mg PO Q6H PRN pain level 6-10 on 08/14/23 10/27/23 History a 1-10 scale dupilumab 300 mg/2 mL subcutaneous 300 mg subcut Q14D 09/14/23 10/27/23 History pen injector (Dupixent) lisinopril 10 mg tablet 10 mg PO QAM 09/14/23 10/27/23 History pregabalin 100 mg capsule 100 mg PO TID 09/14/23 10/27/23 History tamsulosin 0.4 mg capsule 0.4 mg PO QAM 09/14/23 10/27/23 History Past Med/Surg History Problem List (Updated 10/28/23 @ 09:31 by Mark Nguyen MD) Encephalopathy Leg laceration Left knee injury Acute kidney injury superimposed on CKD (Acute) Back pain (Acute) Fall (Acute) Right hip pain Hyperkalemia Orthostatic hypotension Hypotension Ambulatory dysfunction (Acute) Metatarsal bone fracture (Acute) Closed fibular fracture (Acute) Fall Presence of Watchman left atrial appendage closure device Paroxysmal atrial fibrillation Bullous pemphigoid Chronic anemia Severe aortic stenosis Closed fracture of proximal end of right fibula Paroxysmal atrial fibrillation Moderate aortic stenosis Atypical chest pain Chest pain (Acute) Acute anterior epistaxis (Acute) Hiatal hernia Uncontrolled hypertension Obesity (Acute) Atrial flutter, paroxysmal Aortic stenosis Bicuspid aortic valve Chronic low back pain GERD (gastroesophageal reflux disease) Dyslipidemia Atrial flutter, paroxysmal Candidal intertrigo DVT prophylaxis Chest pain (Acute) Neurogenic claudication due to lumbar spinal stenosis Feeling of incomplete bladder emptying Anemia Stage 3 chronic kidney disease (Acute) Anxiety and depression CAD (coronary artery disease) non-obstructive Hypertension (Acute) Medical History Nose septum perforation Chronic low back pain Sacroiliitis IBS (irritable bowel syndrome) Borderline diabetes mellitus A-fib "i think i have a-fib." -- on eliquis -- follows with Dr. Torres History of TIA (transient ischemic attack) 2017 Cardiac murmur History of skin cancer History of COVID-19 02/2020; generalized weakness, diarrhea, sob, fever, body aches; hospitalized x 1 week; c/o ongoing brain fog since having covid Verbalizes suicidal thoughts COVID-19 Nocturia Acute urinary retention Back pain Renal failure Morbid obesity BMI 50.5 Carotid artery stenosis "mild" Aortic stenosis Mild (per cardiology review) aortic stenosis with possible bicuspid aortic valve (MG 19mmhg, NIKKIE 3.0) per 05/2018 ECHO Anemia Osteoporosis GERD (gastroesophageal reflux disease) controlled Chronic back pain High cholesterol Hx of falling last fall 09/2018- per patient, related to LBP/balance issues- ? r/t ambulatory dysfunction- improved with cane/walker use Surgical History History of right cataract extraction S/P epidural steroid injection History of appendectomy History of cardiac cath 2017= NO STENTS History of right knee joint replacement History of back surgery Hx of laparoscopy History of kyphoplasty Family History Father Stroke Slow to wake up after anesthesia Myocardial infarction, Onset Age: 40 Mother Stroke Myocardial infarction, Onset Age: 60 Sister Myocardial infarction, Onset Age: 60 Social History Smoking Status: Former smoker Tobacco Type: Cigarettes Second Hand Exposure: Yes; Hx Alcohol Use: No Hx Substance Use: No (but positive MDMA in urine) Preferred Language: Persian Communication Ability: Effective Visual Impairment: No Limitations Hearing Ability: Normal 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 Beliefs That Will Affect Care: None marital status: Single Current Living Situation: Family Current Living Situation Comment: lives with sister current occupational status: unemployed and disabled Feels Safe at Home: Yes Safety Concerns: Feels Safe At This Time Assistive Devices: Glasses and Walker Review of Systems Review of Systems: Could not be reliably obtained secondary to disorientation Physical Exam Physical Exam: GENERAL: Disoriented, slightly uncomfortable, morbidly obese, no respiratory distress SKIN: Pallor, warm HEENT: Dried blood noted over nasal bridge and teeth, pale palpebral conjunctivae, no ptosis, dry buccal mucosa NECK : Supple, short neck, no tenderness CHEST : Decreased breath sounds, scattered expiratory wheezes, no tenderness HEART : RRR, systolic murmur ABDOMEN: Some distention, nontender EXTREMITIES : Dressing LLE, tender left knee, no other conspicuous deformities noted NEUROLOGIC : Disoriented, no facial asymmetry, gait and stance not assessed Results & Data Results & Data Vital Signs (Past 12 Hours) Vital Signs Temp Pulse Pulse Resp BP BP Pulse Ox 10/27/23 18:19 65 18 111/63 96 10/27/23 17:02 64 10/27/23 15:32 36.9 C 68 18 143/76 H 95 10/27/23 15:32 36.9 C 68 18 143/76 H 95 O2 Del Method 10/27/23 18:19 Room Air 10/27/23 17:02 10/27/23 15:32 Room Air 10/27/23 15:32 Room Air Laboratory Results Laboratory Results WBC 9.32 K/ul (4.8-10.8) 10/27/23 15:50 RBC 3.54 M/uL (4.20-5.40) L 10/27/23 15:50 Hgb 9.1 g/dl (12.0-16.0) L 10/27/23 15:50 Hct 31.0 % (37.0-47.0) L 10/27/23 15:50 MCV 87.6 fL (80.0-100.0) 10/27/23 15:50 MCH 25.7 pg (25.0-34.0) 10/27/23 15:50 MCHC 29.4 g/dL (32.0-36.0) L 10/27/23 15:50 RDW Std Deviation 55.1 fL (36.4-46.3) H 10/27/23 15:50 RDW Coeff of Brandy 17.0 % (11.5-14.5) H 10/27/23 15:50 Plt Count 121 K/uL (130-400) L 10/27/23 15:50 MPV 12.8 fL (9.4-12.4) H 10/27/23 15:50 Immature Gran % (Auto) 0.3 % 10/27/23 15:50 Neut % (Auto) 65.8 % 10/27/23 15:50 Lymph % (Auto) 20.0 % 10/27/23 15:50 [place] % (Auto) 9.4 % 10/27/23 15:50 Eos % (Auto) 4.1 % 10/27/23 15:50 Baso % (Auto) 0.4 % 10/27/23 15:50 Neut # (Auto) 6.13 K/uL (1.40-6.50) 10/27/23 15:50 Lymph # (Auto) 1.86 K/uL (1.20-3.40) 10/27/23 15:50 [place] # (Auto) 0.88 K/uL (0.11-0.59) H 10/27/23 15:50 Eos # (Auto) 0.38 K/uL (0.00-0.50) 10/27/23 15:50 Baso # (Auto) 0.04 K/uL (0.00-0.20) 10/27/23 15:50 Immature Gran # (Auto) 0.03 K/uL (0.01-0.20) 10/27/23 15:50 Sodium 137 mmol/L (136-145) 10/27/23 15:50 Potassium 4.8 mmol/L (3.5-5.1) 10/27/23 15:50 Chloride 106 mmol/L (98-107) 10/27/23 15:50 Carbon Dioxide 23 mmol/L (21-32) 10/27/23 15:50 Anion Gap 8 (3-11) 10/27/23 15:50 BUN 43 mg/dl (6-23) H 10/27/23 15:50 Creatinine 2.36 mg/dl (0.6-1.2) H 10/27/23 15:50 Est Cr Clr Drug Dosing 28.9 ml/min 10/27/23 15:50 Est GFR ( Amer) 24.1 ml/min 10/27/23 15:50 Est GFR (Non-Af Amer) 20.8 ml/min 10/27/23 15:50 BUN/Creatinine Ratio 18.2 (10-20) 10/27/23 15:50 Glucose 100 mg/dl (70-99(Fasting)) H 10/27/23 15:50 Calcium 8.4 mg/dl (8.6-10.3) L 10/27/23 15:[address] 10/27/23 16:59 CT SCAN OF THE BRAIN WITHOUT IV CONTRAST CLINICAL HISTORY: Fall. Head injury. COMPARISON STUDY: CT of the brain dated 06/17/2022 TECHNIQUE: Unenhanced axial CT scan of the brain is performed from the vertex to the skull base. A dose lowering technique was utilized adhering to the principles of ALARA. The patient was scanned twice due to motion artifact. FINDINGS: Brain parenchyma: The brain parenchyma is normal in appearance. There is no hemorrhage, mass effect, or evidence of acute territorial ischemia by CT criteria. Nicholson-white matter differentiation is preserved. No extra-axial fluid collection is seen. Ventricles, sulci, cisterns: Normal in configuration. Intracranial vasculature: There is atherosclerotic calcification of the cavernous carotid arteries. Calvarium: Unremarkable. Sinuses and mastoids: There is mild mucosal thickening within the maxillary antra. The remaining paranasal sinuses are clear. The mastoid air cells are well pneumatized. Orbits: The bony orbits are grossly intact. There are bilateral ocular lens implants. IMPRESSION: No acute intracranial abnormality. ACT 112: Negative or not required by law. Electronically signed by: Jonah Farris M.D. 10/27/2023 5:47 PM Knee X-Ray 10/27/23 16:59 LEFT KNEE 2 VIEWS CLINICAL HISTORY: Left knee injury. Fall. FINDINGS: AP and crosstable lateral views of the left knee are compared to study dated 12/30/2021. The skeletal structures are osteopenic. Suspect an avulsion fracture along the inferior aspect of the patella. No additional findings are suspicious for acute fracture. There are severe tricompartmental degenerative joint space narrowing, bony sclerosis and irregularity along the weightbearing surfaces of the medial and lateral compartments. There are large marginal osteophytes and patellar these efface. Bony overgrowth is seen along the distal femur and proximal tibia. There is no large joint effusion. There is reticular soft tissue injury/edema. Soft tissue gas medial to the knee is likely related to laceration. IMPRESSION: 1. Suspect an avulsion fracture along the inferior aspect of the patella. Correlate for point tenderness. 2. No additional findings are suspicious for acute fracture. 3. Large anterior soft tissue injury with associated edema. 4. Osteopenia and severe arthritic change as above. Electronically signed by: Jonah Farris M.D. 10/27/2023 6:10 PM Elbow X-Ray 10/27/23 17:00 LEFT ELBOW 3 VIEWS CLINICAL HISTORY: Fall. FINDINGS: 3 views of the left elbow are obtained. No prior studies are available for comparison at the time of dictation. The lateral views are significantly degraded by positioning. The skeletal structures are osteopenic. There is no radiographic evidence of acute fracture or dislocation. There is no evidence of joint effusion. Degenerative spurring is seen along the radial head. Enthesophytes arise from the humeral epicondyles. Dorsal soft tissue swelling is observed. IMPRESSION: 1. The examination is degraded by suboptimal positioning. 2. Dorsal soft tissue swelling with no radiographic evidence of acute fracture. Electronically signed by: Jonah Farris M.D. 10/27/2023 6:[address] 10/27/23 17:26 CT SCAN OF THE CERVICAL SPINE CLINICAL HISTORY: Fall. Trauma. COMPARISON STUDY: Cervical spine CT dated 06/17/2022. TECHNIQUE: CT scan of the cervical spine is performed from the skull base to the upper thoracic spine. Images are reviewed in the axial, sagittal, and coronal planes. IV contrast was not administered for this examination. A dose lowering technique was utilized adhering to the principles of ALARA. The examination is degraded by large body habitus, and by streak artifact from the patient's shoulders. CT DOSE: 2575.24 mGy.cm FINDINGS: Skeletal structures: The skeletal structures are well mineralized. There is no evidence of fracture or subluxation involving the cervical spine. Vertebral body height and alignment are maintained. Anterior osteophytes are noted in the lower cervical region. The odontoid process and lateral masses are intact. The atlantoaxial articulation is preserved noting productive degenerative change. The spinous processes appear intact. There is mild multilevel facet arthropathy. Intervertebral discs: There is mild to moderate disc space narrowing at C6-C7. Mild narrowing is noted at C5-C6. Central canal: Grossly patent. Soft tissues: The prevertebral and paraspinous soft tissues are within normal limits. There is atherosclerotic calcification of the carotid bulbs. Calvarium: The visualized calvarium at the skull base appears intact. Brain parenchyma: Partially visualized brain parenchyma at the skull base is within normal limits. Sinuses and mastoids: Mild mucosal thickening is noted in the maxillary antra. The mastoid air cells are well pneumatized. Lung apices: Clear as visualized. IMPRESSION: There is no evidence of cervical spine fracture or subluxation. ACT 112: Negative or not required by law. Electronically signed by: Jonah Farris M.D. 10/27/2023 5:51 PM Diagnostic Findings Chest x-ray as per my interpretation cardiomegaly, minimal congestion EKG as per my interpretation : Rate 65, NSR, LAD, LAFB, septal infarct, no ischemia
[2023-10-27 20:09] LABS: Albumin Level 3.5 gm/dl (3.4-5.0); Bilirubin Direct 0.1 mg/dl (0-0.2); Bilirubin,Total 0.4 mg/dl (0.2-1.0); Magnesium 2.3 mg/dl (1.7-2.4); Total Protein 6.7 gm/dl (6.0-8.3)
[2023-10-27] MEDS: SODIUM CHLORIDE 0.9% 1,000 ML IV ONE (20:15)
[2023-10-27] MEDS ORDERED: PROMETHAZINE 12.5 MG/50.5 ML BAG IV PRN (20:59)
[2023-10-27] MEDS ORDERED: oxyCODONE HCL IR 5 MG TAB (IMMEDIATE RELEASE) PO PRN (20:59)
[2023-10-27 21:28] LABS: Appearance Urine Clear (Clear); Bilirubin Urine Negative (Negative); Blood Urine Negative (Negative); Color Urine Yellow; Glucose Urine UA Negative (Negative); Ketones Urine Negative (Negative); Leukocyte Esterase Urine Negative (Negative); Nitrite Urine Negative (Negative); Protein Urine Negative (Negative); Specific Gravity Urine 1.011 (1.000-1.030); Urobilinogen Urine Negative (Negative); pH Urine 5.5 (4.5-7.5)
--- OUTSIDE RECORDS SUMMARY | 2023-10-27 21:32 | External Medical Summary | Summary of Care ---
Author Name Unknown Organization [facility] Address [address] [place] [address] Phone [phone] Care Team Providers Care [employer] Field Technician Name Role Phone Nikunj Plascencia MD Primary Care Provider [phone] Encounter Details Date Type Department Care Team (Late st Contact Info) Description 10/23/2023 Population Health External Data Unspecified Department Allergies Active Allergy Reactions Criticality Noted Date Comments Egg Shells Nausea/vomiting Medium 06/16/2018 Other reaction(s): GI SYMPTOMS Egg Yolk High 11/29/2019 Other reaction(s): GI upset Ibuprofen Other (Please comment) Medium 07/30/2010 Stomach upset Morphine Edema face/lips/tongue High 08/28/2021 Other reaction(s): LEGS SWELL documented as of this encounter (statuses as of 10/23/2023) Medications Medication Sig Dispensed Refills Start Date [...] 30 g 5 05/09/2022 Active Saline Nasal Grace 0.65 % Nasal Solution ([place]) Q6H 06/06/2022 Active Clobetasol Propionate 0.05 % [...] 07, 2022. 34 Tablet 11 10/07/2022 Active Lisinopril 10 MG Oral Tablet (Prinivil) [...] the morning. 90 Capsule 3 04/03/2023 Active DULoxetine HCl 60 MG Oral Capsule [...] the morning. 90 Tablet 3 06/27/2023 Active Memantine HCl 10 MG Oral Tablet (Namenda)Indications :Spinal stenosis of lumbar region without neurogenic claudication Take 1 tablet by mouth twice daily 60 Tablet 5 07/13/2023 Active Dupixent 300 MG/2ML Subcutaneous Solution Pen-injector (Dupilumab) Inject one pen under the skin every 2 weeks. 4 mL 4 08/07/2023 Active cycloSPORINE 0.05 % Ophthalmic Emulsion (Restasis) Instill 1 drop in each eye every 12 hours. 5.5 mL 5 09/13/2023 Active Vancomycin HCl 125 MG Oral Capsule (Vancocin) TAKE 1 CAPSULE ORALLY EVERY 6 HOURS FOR 8 DAYS 09/17/2023 Active Pregabalin 100 MG Oral Capsule (Lyrica) Take 1 Capsule by mouth in the morning and 1 Capsule at noon and 1 Capsule before bedtime. 90 Capsule 3 10/02/2023 Active Hospital, Clinic, or Other Facility Administered Medication Ordered Dose Route Frequency Start Date End Date Status atropine sulfate inj 0.4 mgIndications:Chest pain, unspecified type 0.4 mg IV PUSH PRN 01/29/2021 Active documented as of this encounter (statuses as of 10/23/2023) Active Problems Problem Noted Date Diagnosed Date Multiple falls 09/26/2023 Bullous pemphigoid 09/05/2023 Renal stone 03/21/2023 Presence of Watchman left atrial appendage closu re device 12/19/2022 PAF (paroxysmal atrial fibrillation) 08/17/2022 Overview: Added automatically from request for surgery [id number] Nasal septal perforation 06/13/2022 Overview: Per ENT [...] as of this encounter (statuses as of 10/23/2023) Resolved Problems Problem Noted Date Diagnosed Date Resolved Date Major depressive disorder, r ecurrent severe without psychotic features 09/05/2023 09/26/2023 Generalized anxiety disorder 09/05/2023 09/26/2023 Food insecurity 01/02/2023 06/27/2023 Overview: Per Fresh [...] 140/90 12/12/201111/09 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 07/30/2018 Overview: [place] palsy Tinea 06/27/2011 07/30/2018 Mixed urge and stress incontinence 12/15/2008 10/08/2019 ADVANCE DIRECTIVE INFORMATION 06/17/2004 10/08/2019 documented as of this encounter (statuses as of 10/23/2023) Immunizations Name Administration Dates Next Due COVID-19 mRNA, LNP-s, No Pre serve, 2-Dose Series ([employer]) 10/05/2020,09/14/2020 Covid-19, Mrna, Lnp-s, Pf, B ivalent, 30 Mcg, IM, 12 yrs and above ([employer]) 05/26/2022 Pneumococcal Conjugate Vacc, 13 Valent (Prevnar) 05/30/2016 Pneumococcal Conjugate Vacci ne, 20-valent ([id number]) 04/03/2023 Seasonal Influenza Virus Vac cine, Unspecified Formulation 12/05/2019,02/27/2019,01/26/2018,11/09,11/10/2015,12/05/2014,10/17/2013 ,02/22/2013,11/09/2011,12/02/2010 Seasonal Influenza, PF, 6 M & above, IM , (FluLaval or Fluzone) 10/21/2021,11/26/2020,12/05/2019,02/27,01/26/2018,11/09/2016 Seasonal Influenza, Quadriva lent Hd (Fluzone Hd) 12/07/2022 Seasonal Influenza, Quadriva lent, No Preserve, IM 11/10/2015,12/05/2014 12/06/2015 Seasonal Influenza, Trivalen t, (IIV3), with Preserv, (Fluzone) 10/17/2013,02/22/2013,11/09/2011,12/02 TDAP (age 10 and older)(Boostrix) 01/05/2022, [...] No 12/11/2022 Does the household have a [facility] source of income? (Household - for ages [...] Department Care Team (Latest Contact Info) Description 10/27/2023 2:30 PM EDT Office Visit Pharmacy, [facility] [address] [place] [address] [facility] [address] [place] [address] 11/03/2023 10:00 AM EDT Hospital Encounter CRS Waiting [facility], Cardiac Recovery Suite Waiting Unit, [address] [place] [address] Muna Chacon MD [address], [place] [id number] 11/03/2023 10:00 AM EDT - 11/03/2023 11:00 AM EDT Surgery CRS Waiting [facility], Cardiac Recovery Suite Waiting Unit, [address] [place] [id number] Muna Chacon MD [address] [place] [address] CORONARY ANGIOGRAPHY W/LEFT HEART CATH 11/03/2023 10:00 AM EDT Office Visit Cardiology [facility] [address] [place] [address] [facility] Cardiac Recovery [facility] [address] [place] [address] 12/01/2023 1:45 PM EDT Office Visit Dermatology [facility] [address] [place], [place] [phone] Cyril Borges MD [address] [place], [place] [id number] 12/04/2023 1:00 PM EDT Cardiac Studies Cardiac Studies, [facility] [address] [facility] [place] [address] 12/20/2023 2:30 PM EDT Imaging Radiology, [address] [place] [address] 12/20/2023 3:20 PM EDT Office Visit Rheumatology [address] [place] [address] John Yoder MD [address] [place] [address] [place] [address] 01/04/2024 11:30 AM EST Appointment Radiology, [address] [address] 01/09/2024 1:20 PM EST Office Visit Family Practice [facility] [address] [facility] [place] [address] Nikunj Plascencia MD [address] [facility] [place] [address] 03/20/2024 2:00 PM EST Office Visit Nephrology, [facility] [address] [facility] [place] [address] Geovanni Linder MD [address] [place] [address] Scheduled Procedures Name Priority Associated Diagnoses Date/Ti vt CORONARY ANGIOGRAPHY W/LEFT HEART CATH Aortic stenosis 11/03/2023 10:00 AM EDT ROBOTIC ARTHROPLASTY KNEE TOTAL [...] Additional history exists Depression Monitoring 12/09/2022 12/09/2021 Adult Wellness Visit 05/15/2023 Zoster Vaccines (2 of 2) 08/22/2023 06/27/2023 [...] 04/27/2028 04/28/2023, 10/2023, 01/11/2021, Additional history exists DTap/Tdap Vaccines (3 - Td or Tdap) 01/06/2032 01/05/2022, 11/18/2011 Pap Smear Discontinued 08/05/2019, 07/21, 03/01/2010 RETIRED - COLONOSCOPY-EVERY 5 YRS AGES 18-100 Discontinued 03/24/2021, 09/19/2018, 09/19/2018, Additional history exists Pneumococcal Vaccine: 65+ Years Completed 04/03/2023, 05/30/2016 VITAMIN D LEVEL ONCE IN A LIFETIME-USE SMARTSET# [id number] Completed 06/17/2023, 06/10/2022, 05/28/2021, Additional history exists [...] encounter Medical Devices Implanted Type Area University Registrar Device Identifier Shelf Expiration Date Model / Serial / Lot Kyphon Hv-R Bone Cement Implanted:Qty: 1 on 08/17/2016 by Michael Smith MD at OR [facility] N/A: Spine Thoracic 03/19/2019 C01A / C01A / [id number] Cement Bone Lv G 1119-140-01 - [id number] Implanted:Qty: 1 on 06/04/2018 by Duc Kimble MD at OR [facility] Right: Knee [employer] 11/19/20201119-1 40- / / [id number] Cement Bone Lv G 1119-140-01 - [id number] Implanted:Qty: 1 on 06/04/2018 by Duc Kimble MD at OR [facility] Right: Knee [employer] 06/19/20201119-1 40- / / [id number] Persona The Personlized Knee System Vivacit-E Highly Crosslinked Polyethylene All-Poly Patella Cemented Implanted:Qty: 1 on 06/04/2018 by Duc Kimble MD at OR [facility] Right: Knee [employer] 06/19/2022 42-5402-0 00-35 / / [id number] Tibia Stem 5 Deg Rt Size F - [id number] Implanted:Qty: 1 on 06/04/2018 by Duc Kimble MD at OR [facility] Right: Knee [employer] 10/21/2027 42-5320-0 75-02 / / [id number] Persona The Personalized Knee System Femur Cemented Cr Standard Implanted:Qty: 1 on 06/04/2018 by Duc Kimble MD at OR [facility] Right: Knee [employer] 11/20/2027 42-5026-0 62-02 / / [id number] Persona The Personalized Knee System Vivacit-E Highly Crosslinked Polyethylene Articular Surface Medial Congruent Implanted:Qty: 1 on 06/04/2018 by Duc Kimble MD at OR [facility] Right: Knee [employer] 11/19/2022 42-5221-0 - / / [id number] Device Watchman Flx 24mm - [id number] Implanted:Qty: 1 on 10/06/2022 by Austin Penaloza MD at [facility]ARDIAC LABS [facility] [employer] : INTRV CARD [id number] 03/07/2025 [id number] 40 / / [id number] Device Watchman Flx 27mm - [id number] Implanted:Qty: 1 on 10/06/2022 by Austin Penaloza MD at [facility]ARD[facility] [employer] : INTRV CARD [id number] 08/07/2025 [id number] 70 / / [id number] documented as of this encounter Advance Directives [...] Power of Attor marcel? No Care Teams [employer] Field Technician Relationship Specialty Start Date End Date Nikunj Plascencia MD [address] [place] [address] PCP - General Family Medicine 10/31/19 documented as of this encounter
--- OUTSIDE RECORDS SUMMARY | 2023-10-27 21:32 | External Medical Summary | Summary of Care ---
Author Name Unknown Organization [facility] Address [address] [place] [address] Phone [phone] Care Team Providers Care Jewel Hole Driller Name Role Phone Nikunj Plascencia MD Primary Care Provider [phone] Reason for Visit * Reason Onset Date Comments Follow Up 10/12/2023 Encounter Details Date Type Department Care Team (Late st Contact Info) Description 10/12/2023 Telephone Cardiology [facility] [address], [place] [phone] Joshua Pyle, DNP [address] [place], [place] [id number] Follow Up Allergies Active Allergy Reactions Criticality Noted Date Comments Egg Shells Nausea/vomiting Medium 06/16/2018 Other reaction(s): GI SYMPTOMS Egg Yolk High 11/29/2019 Other reaction(s): GI upset Ibuprofen Other (Please comment) Medium 07/30/2010 Stomach upset Morphine Edema face/lips/tongue High 08/28/2021 Other reaction(s): LEGS SWELL documented as of this encounter (statuses as of 10/19/2023) Medications Medication Sig Dispensed Refills Start Date [...] 30 g 5 05/09/2022 Active Saline Nasal [place] 0.65 % Nasal Solution ([place]) Q6H 06/06/2022 Active Clobetasol Propionate 0.05 % [...] as of this encounter (statuses as of 10/19/2023) Active Problems Problem Noted Date Diagnosed Date Multiple falls 09/26/2023 Bullous pemphigoid 09/05/2023 Renal stone 03/21/2023 Presence of Watchman left atrial appendage closu re device 12/19/2022 PAF (paroxysmal atrial fibrillation) 08/17/2022 Overview: Added automatically from request for surgery [id number] Nasal septal perforation 06/13/2022 Overview: Per ENT [...] as of this encounter (statuses as of 10/19/2023) Resolved Problems Problem Noted Date Diagnosed Date [...] disease 07/27/2018 07/27/2018 Other pulmonary embolism wit hogisell acute cor pulmonale 07/27/2018 03/19/2019 Status post [...] as of this encounter (statuses as of 10/19/2023) Immunizations Name Administration Dates Next Due COVID-19 mRNA, LNP-s, No Pre serve, 2-Dose Series ([employer]) 10/05/2020,09/14/2020 Covid-19, Mrna, Lnp-s, Pf, B ivalent, 30 Mcg, IM, 12 yrs and above ([employer]) 05/26/2022 Pneumococcal Conjugate Vacc, 13 Valent (Prevnar) 05/30/2016 Pneumococcal Conjugate Vacci ne, 20-valent ([id number]) 04/03/2023 Seasonal Influenza Virus Vac cine, Unspecified [...] encounter Miscellaneous Notes * Telephone Encounter - Joshua Pyle, KRISTI - 10/19/2023 10:17 AM EDT Watchman Follow-up: Phone follow-up Interval postprocedure: 1-YEAR She is being evaluated for TAVR/SAVR and in the meantime, she fell and broke her foot/leg. She is scheduled for cardiac cath on 11/02 as part of the AVR work up. She has no other c/o or problems. Diagnostic Studies since last encounter ECHO: 05/15/3033 - severe LVEF:55-65% KAVITA:none Device Margin Residual Leak:n/a LABS: Creatinine: 1.5 06/17/2023 Hemoglobin: 8.9 04/28/2023 Sanborn Scale: 1 Vy Index Eval: All independent Current Outpatient Medications Medication Sig Dispense Refill [...] for Itching. 30 g 5 Saline Nasal [place] 0.65 % Nasal Solution ([place]) Q6H Clobetasol Propionate 0.05 % External Ointment (Temovate) Apply thin film to affected area at body twice daily as needed for up to 2 weeks at a time. Not for use at face, armpits, groin. 60 g 2 Aspirin 81 MG Oral Tablet Chewable Take 1 Tablet by mouth in the morning. Do not start before October 07, 2022. 34 Tablet 11 Lisinopril 10 MG Oral Tablet (Prinivil) TAKE 1 TABLET BY MOUTH EVERY DAY (Patient taking differently: Take 1 Tablet by mouth at bedtime.) 90 Tablet 3 Metoprolol Succinate ER 50 MG Oral Tablet Extended Release 24 Hour (toPROL XL) TAKE 1/2 TABLET EVERY MORNING AND EVENING 90 Tablet 3 Acitretin 10 MG Oral Capsule Take 1 capsule daily with breakfast. 90 Capsule 1 Doxepin HCl 25 MG Oral Capsule (SINEquan) Take 1 Capsule by mouth at bedtime. Tamsulosin HCl 0.4 MG Oral Capsule (Flomax) Take 1 Capsule by mouth in the morning. 90 Capsule 3 DULoxetine HCl 60 MG Oral Capsule Delayed [...] (CeleXA) Betamethasone Acetate Powder Use as directed. oxyBUTYnin Chloride ER 5 MG Oral Tablet Extended Release 24 Hour (Ditropan XL) Take 1 Tablet by mouth in the morning. 90 Tablet 3 Atorvastatin Calcium 80 MG Oral Tablet (Lipitor) Take 1 Tablet by mouth in the morning. 90 Tablet 3 Memantine HCl 10 MG Oral Tablet (Namenda) Take 1 tablet by mouth twice daily 60 Tablet 5 Dupixent 300 MG/2ML Subcutaneous Solution Pen-injector (Dupilumab) Inject one pen under the skin every 2 weeks. 4 mL 4 cycloSPORINE 0.05 % Ophthalmic Emulsion (Restasis) Instill 1 drop in each eye every 12 hours. 5.5 mL 5 Vancomycin HCl 125 MG Oral Capsule (Vancocin) TAKE 1 CAPSULE ORALLY EVERY 6 HOURS FOR 8 DAYS Pregabalin 100 MG Oral Capsule (Lyrica) Take 1 Capsule by mouth in the morning and 1 Capsule at noon and 1 Capsule before bedtime. 90 Capsule 3 Current Facility-Administered Medications Medication Dose Route Frequency Provider Last Rate Last Admin atropine sulfate inj 0.4 mg 0.4 mg IV Push PRN Trip Nolasco, DO Follow up Anticoagulation Therapy: Plavix was stopped by MAICOL Palma in April for her 6-month f/u call. However, she states she is still on Plavix and ASA. With her upcoming cath, will continue these until instructed otherwise by the Valve Team. I told her I will call her in one year for her 2-year/ final Watchman follow up phone call. She verbalizes understanding. Any follow up events: none If follow up events adjudication: none Joshua Pyle DNP, CRNP Department of Cardiology/[place] [address] Cc: Sofie Vega * Telephone Encounter - Joshua Pyle DNP - 10/19/2023 9:05 AM EDT Attempted to call patient again for the 1-year post Watchman follow-up. Left voicemail messages on both her home phone and her cell phone asking her to call me back. * Telephone Encounter - Joshua Pyle DNP - 10/12/2023 10:38 AM EDT Attempted to call patient for her 1-YEAR follow up call for Watchman implant. Left a voice mail message for her to call me back. documented in this encounter Plan of Treatment Upcoming Encounters Date Type Department Care Team (Latest Contact Info) Description 10/27/2023 2:30 PM EDT Office Visit Pharmacy, [facility] [address] [place] [address] [facility] [address] [place] [address] 11/03/2023 10:00 AM EDT Hospital Encounter CRS Waiting [facility], Cardiac Recovery Suite Waiting Unit, [address] [place] [address] Muna Chacon MD [address] [place] [address] 11/03/2023 10:00 AM EDT - 11/03/2023 11:00 AM EDT Surgery CRS Waiting [facility], Cardiac Recovery Suite Waiting Unit, [address] [place] [address] Muna Chacon MD [address] [place] [address] CORONARY ANGIOGRAPHY W/LEFT HEART CATH 11/03/2023 10:00 AM EDT Office Visit Cardiology [facility] [address] [place] [facility] [address] [facility] [address] [place] [address] 12/01/2023 1:45 PM EDT Office [place] [address] [facility] [place] [phone] Cyril Borges MD [address] [place] [address] 12/04/2023 1:00 PM EDT Cardiac Studies Cardiac Studies, [facility] [address] [place] [address] 12/20/2023 2:30 PM EDT Imaging Radiology, [address] [place] [address] 12/20/2023 3:20 PM EDT Office Visit Rheumatology [address] [place] [address] John Yoder MD [address] [place] [address] [place] [address] 01/04/2024 11:30 AM EST Appointment Radiology, [address] [address] 01/09/2024 1:20 PM EST Office Visit Family Practice [facility] [address] [place] [address] Nikunj Plascencia MD [address] [facility] [address] 03/20/2024 2:00 PM EST Office Visit Nephrology, [facility] [address] [place] [address] Geovanni Linder MD [address] [place] [address] Scheduled Procedures Name Priority Associated Diagnoses Date/Ti [...] 03/10/2021, Additional history exists COVID-19 Vaccine ( - 2022- season) 2022 05/26/2022, 05/26/2022, 10/05/2020, Additional history exists Mammogram 11/30/2022 11/30/2021, 05/22, 06/10/2021, Additional history exists Depression Monitoring 12/09/2022 12/09/2021 Adult Wellness Visit 05/15/2023 Zoster Vaccines (2 of 2) 08/22/2023 06/27/2023 Influenza Vaccine (FLU shot) (#1) 2023 12/07/2022, 12/07/2022, 10/21/2021, Additional history exists DXA Scan 12/01/2023 11/30/2021, 08/21, 08/29/2017, Additional history exists GFR 12/17/2023 06/17/2023, 030 09/2023, 03/31/2023, Additional history exists Albumin/Creatinine Ratio 09/04/2024 024, 06/13/2022, 03/02/2016 Colonoscopy 03/24/2026 03/24/2021, 08/22, 09/19/2018, Additional history exists Colorectal Cancer Screening 03/24/2026 Diabetes Screening 06/16/2026 06/17/2023, 0 05/01/2023, 04/28/2023, Additional history exists Lipid Panel 04/27/2028 04/28/2023, 02/0 10/2023, 01/11/2021, Additional history exists DTap/Tdap Vaccines (3 - Td or Tdap) 01/06/2032 01/05/2022, 11/18/2011 Pap Smear Discontinued 08/05/2019, 07/21, 03/01/2010 RETIRED - COLONOSCOPY-EVERY 5 YRS AGES 18-100 Discontinued 03/24/2021, 09/19/2018, 09/19/2018, Additional history exists Pneumococcal Vaccine: 65+ Years Completed 04/03/2023, 05/30/2016 VITAMIN D LEVEL ONCE IN A LIFETIME-USE SMARTSET# [id number] Completed 06/17/2023, 06/10/2022, 05/28/2021, Additional history exists [...] this encounter Medical Devices Implanted Type Area Cylinder Press Feeder Device Identifier Shelf Expiration Date Model / Serial / Lot Kyphon Hv-R Bone Cement Implanted:Qty: 1 on 08/17/2016 by Michael Smith MD at OR [facility] N/A: Spine Thoracic 03/19/2019 C01A / C01A / [id number] Cement Bone Lv G 1119-140-01 - [id number] Implanted:Qty: 1 on 06/04/2018 by Duc Kimble MD at OR [facility] Right: Knee [employer] 11/19/2020-1119-1 40-01 / / [id number] Cement Bone Lv G 1119-140-01 - [id number] Implanted:Qty: 1 on 06/04/2018 by Duc Kimble MD at OR [facility] Right: Knee [employer] 06/19/2020-1119-1 40-01 / / [id number] Persona The Personlized Knee System Vivacit-E Highly Crosslinked Polyethylene All-Poly Patella Cemented Implanted:Qty: 1 on 06/04/2018 by Duc Kimble MD at OR [facility] Right: Knee [employer] 06/19/2022 42-5402-0 00-35 / / [id number] Tibia Stem 5 Deg Rt Size F - [id number] Implanted:Qty: 1 on 06/04/2018 by Duc Kimble MD at OR [facility] Right: Knee [employer] 10/21/2027 42-5320-0 75-02 / / [id number] Persona The Personalized Knee System Femur Cemented Cr Standard Implanted:Qty: 1 on 06/04/2018 by Duc Kimble MD at OR [facility] Right: Knee [employer] 11/20/2027 42-5026-0 62-02 / / [id number] Persona The Personalized Knee System Vivacit-E Highly Crosslinked Polyethylene Articular Surface Medial Congruent Implanted:Qty: 1 on 06/04/2018 by Duc Kimble MD at OR [facility] Right: Knee [employer] 11/19/2022 42-5221-0 - / / [id number] Device Watchman Flx 24mm - [id number] Implanted:Qty: 1 on 10/06/2022 by Austin Penaloza MD at CARDIAC LABS [facility] [employer] : INTRV CARD [id number] 03/07/2025 [id number] 40 / / [id number] Device Watchman Flx 27mm - [id number] Implanted:Qty: 1 on 10/06/2022 by Austin Penaloza MD at CARDIAC LABS [facility] [employer] : INTRV CARD [id number] 08/07/2025 [id number] 70 / / [id number] documented as of this encounter Advance Directives [...] Power of Attor marcel? No Care Teams Jewel Hole Driller Relationship Specialty Start Date End Date Nikunj Plascencia MD [address] [place] [address] PCP - General Family Medicine 10/31/19 documented as of this encounter
--- OUTSIDE RECORDS SUMMARY | 2023-10-27 21:33 | External Medical Summary | Summary of Care ---
Author Name Unknown Organization [facility] Address [address] [place] [address] Phone [phone] Care Team Providers Care Underground Conduit Installer Name Role Phone Lambert Acuña MD Primary Care Provider [phone] Reason for Visit * Reason Onset Date Comments Medication Refill 09/30/2023 Encounter Details Date Type Department Care Team (Late st Contact Info) Description 09/30/2023 Refill Pharmacy, [facility] [address] [facility] [place] [address] Lambert Acuña MD [address] [place] [address] Allergies Active Allergy Reactions Criticality Noted Date Comments Egg Shells Nausea/vomiting Medium 06/16/2018 Other reaction(s): GI SYMPTOMS Egg Yolk High 11/29/2019 Other reaction(s): GI upset Ibuprofen Other (Please comment) Medium 07/30/2010 Stomach upset Morphine Edema face/lips/tongue High 08/28/2021 Other reaction(s): LEGS SWELL documented as of this encounter (statuses as of 10/02/2023) Medications Medication Sig Dispensed Refills Start Date [...] 30 g 5 05/09/2022 Active Saline Nasal [place] 0.65 % Nasal Solution ([place]) Q6H 06/06/2022 Active Clobetasol Propionate 0.05 % [...] before bedtime. 90 Capsule 3 10/02/2023 Active Pregabalin 100 MG Oral Capsule (Lyrica) Take 1 Capsule by mouth in the morning and 1 Capsule at noon and 1 Capsule before bedtime. 90 Capsule 3 07/31/2023 Discontinu ed(Refill) Hospital, Clinic, or Other Facility Administered Medication Ordered Dose Route Frequency Start Date End Date Status atropine sulfate inj 0.4 mgIndications:Chest pain, unspecified type 0.4 mg IV PUSH PRN 01/29/2021 Active documented as of this encounter (statuses as of 10/02/2023) Active Problems Problem Noted Date Diagnosed Date Multiple falls 09/26/2023 Bullous pemphigoid 09/05/2023 Renal stone 03/21/2023 Presence of Watchman left atrial appendage closu re device 12/19/2022 PAF (paroxysmal atrial fibrillation) 08/17/2022 Overview: Added automatically from request for surgery [id number] Nasal septal perforation 06/13/2022 Overview: Per ENT [...] as of this encounter (statuses as of 10/02/2023) Resolved Problems Problem Noted Date Diagnosed Date [...] 140/90 12/12/201111/09 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 07/30/2018 Overview: [place] palsy Tinea 06/27/2011 07/30/2018 Mixed urge and stress incontinence 12/15/2008 10/08/2019 ADVANCE DIRECTIVE INFORMATION 06/17/2004 10/08/2019 documented as of this encounter (statuses as of 10/02/2023) Immunizations Name Administration Dates Next Due COVID-19 mRNA, LNP-s, No Pre serve, 2-Dose Series ([employer]) 10/05/2020,09/14/2020 Covid-19, Mrna, Lnp-s, Pf, B ivalent, 30 Mcg, IM, 12 yrs and above (Pfizer) 05/26/2022 Pneumococcal Conjugate Vacc, 13 Valent (Prevnar) 05/30/2016 Pneumococcal Conjugate Vacci ne, 20-valent ([id number]) 04/03/2023 Seasonal Influenza Virus Vac cine, Unspecified [...] 12/11/2022 Does the household have a re lar source of income? (Household - for ages [...] Telephone Encounter - Lambert Acuña MD - 10/02/2023 10:00 AM EDTSigned Prescriptions: Disp Refills Pregabalin 100 MG Oral Capsule (Lyrica) 90 Cap*3 Sig: Take 1 Capsule by mouth in the morning and 1 Capsule at noon and 1 Capsule before bedtime. Authorizing Provider: LAMBERT ACUÑA * Telephone Encounter - Maria Ines [facility] - 10/02/2023 8:11 AM EDT Pending Prescriptions: Disp Refills Pregabalin 100 MG Oral Capsule (Lyrica) 90 Cap*3 Sig: Take 1 Capsule by mouth in the morning and 1 Capsule at noon and 1 Capsule before bedtime. documented in this encounter Plan of Treatment Upcoming Encounters Date Type Department Care Team (Late st Contact Info) Description 10/27/2023 2:30 PM EDT Office Visit Pharmacy, [address] [place] [address] [facility] [address] [place] [address] 11/24/2023 2:40 PM EDT Office Visit Podiatry [address] [place] [address] Eveline Layne DPM [address] [place] [address] 12/01/2023 1:45 PM EDT Office Visit Dermatology [facility] [address] [place] [address] Cyril Borges MD [address] [place] [address] 12/04/2023 1:00 PM EDT Cardiac Studies Cardiac Studies, [address] [place] [address] 12/20/2023 2:30 PM EDT Imaging Radiology, [place] [address] [address] [place] [address] 12/20/2023 3:20 PM EDT Office Visit Rheumatology [address] [place] [address] John Yoder MD [address] [place] [address] [place] [address] 01/04/2024 11:30 AM EST Appointment Radiology, [address] [address] 01/09/2024 1:20 PM EST Office Visit Family Practice [facility] [address] [place] [address] Lambert Acuña MD [address] [place] [address] 03/20/2024 2:00 PM EST Office Visit Nephrology, Jason Salas [address] [facility] [place] [address] Geovanni Linder MD [address] [facility] [place] [address] Scheduled Procedures Name Priority Associated Diagnoses Date/Ti [...] D LEVEL ONCE IN A LIFETIME-USE SMARTSET# 56681 Completed 06/17/2023, 06/10/2022, 05/28/2021, Additional history exists [...] this encounter Medical Devices Implanted Type Area Crushing Machine Operator Device Identifier Shelf Expiration Date Model / Serial / Lot Kyphon Hv-R Bone Cement Implanted:Qty: 1 on 08/17/2016 by Michael Smith MD at OR [facility] N/A: Spine Thoracic 03/19/2019 C01A / C01A / [id number] Cement Bone Lv G 1119-140-01 - [id number] Implanted:Qty: 1 on 06/04/2018 by Duc Kimble MD at OR [facility] Right: Knee [employer] 11/19/2020 00-1119-1 40-01 / / [id number] Cement Bone Lv G 1119-140-01 - [id number] Implanted:Qty: 1 on 06/04/2018 by Duc Kimble MD at OR [facility] Right: Knee [employer] 06/19/2020 00-1119-1 40-01 / / [id number] Persona The Personlized Knee System Vivacit-E Highly Crosslinked Polyethylene All-Poly Patella Cemented Implanted:Qty: 1 on 06/04/2018 by Duc Kimble MD at OR [facility] Right: Knee [employer] 06/19/2022 42-5402-0 00-35 / / [id number] Tibia Stem 5 Deg Rt Size F - [id number] Implanted:Qty: 1 on 06/04/2018 by Duc Kimble MD at OR [facility] Right: Knee [employer] 10/21/2027 42-5320-0 75-02 / / [id number] Persona The Personalized Knee System Femur Cemented Cr Standard Implanted:Qty: 1 on 06/04/2018 by Duc Kimble MD at OR [facility] Right: Knee [employer] 11/20/2027 42-5026-0 62-02 / / [id number] Persona The Personalized Knee System Vivacit-E Highly Crosslinked Polyethylene Articular Surface Medial Congruent Implanted:Qty: 1 on 06/04/2018 by Duc Kimble MD at OR [facility] Right: Knee [employer] 11/19/2022 42-5221-0 07-12 / / [id number] Device Watchman Flx 24mm - [id number] Implanted:Qty: 1 on 10/06/2022 by Austin Penaloza MD at [facility] [employer] : INTRV CARD [id number] 03/07/2025 [id number] 40 / / [id number] Device Watchman Flx 27mm - [id number] Implanted:Qty: 1 on 10/06/2022 by Austin Penaloza MD at [facility] [employer] : INTRV CARD [id number] 08/07/2025 [id number] 70 / / [id number] documented as of this encounter [place] Directives [...] Power of Attor marcel? No Care Teams Underground Conduit Installer Relationship Specialty Start Date End Date Lambert Acuña MD [address] [place] [address] PCP - General Family Medicine 10/31/19 documented as of this encounter
--- OUTSIDE RECORDS SUMMARY | 2023-10-27 21:33 | External Medical Summary | Continuity of Care Document ---
Author Name Unknown Organization [place] [address] Address [address] [place] [id number] Care Team Providers Care Bottle Washing Machine Operator Name Role Phone Nikunj Plascencia Primary Care Physician [phone] [id number] Date(s): 09/26/23 - 09/26/23 [facility] [address] [place] [address] [facility] Medicine [address] [place] [address] Encounter Diagnosis Fracture of fibula, proximal(Discharge Diagnosis) - 09/26/23 Fracture of metatarsal of right foot, closed(Discharge Diagnosis) - 09/26/23 Left knee pain(Discharge Diagnosis) - 09/26/23 Discharge Disposition: Home or Self Care Attending Physician: MD Estephania, Kendrick Padron Allergies, Adverse Reactions, Alerts Substance Criticality Severity Reaction Reaction Severity Status morphine swelling Active Medications atorvastatin Start: 08/22/23 8:20:00 AM EDT Start Date: 08/22/23 Status: Ordered Benadryl Start: 08/22/23 8:21:00 AM EDT Start Date: 08/22/23 Status: Ordered betamethasone Start: 08/22/23 8:21:00 AM EDT Start Date: 08/22/23 Status: Ordered busPIRone Start: 08/22/23 8:21:00 AM EDT Start Date: 08/22/23 Status: Ordered calcipotriene 0.005% topical cream Start: 08/22/23 8:21:00 AM EDT, 1 appl, topical, bid Start Date: 08/22/23 Status: Ordered cholecalciferol Start: 08/22/23 8:21:00 AM EDT Start Date: 08/22/23 Status: Ordered clotrimazole 1% topical cream Start: 08/22/23 8:22:00 AM EDT, 1 appl, topical, bid Start Date: 08/22/23 Status: Ordered cyanocobalamin Start: 08/22/23 8:22:00 AM EDT Start Date: 08/22/23 Status: Ordered Cymbalta 60 mg oral delayed release capsule Start: 08/22/23 8:22:00 AM EDT, 1 cap, PO, Daily Start Date: 08/22/23 Status: Ordered Desenex Foot 2% topical powder Start: 08/22/23 8:22:00 AM EDT Start Date: 08/22/23 Status: Ordered docusate Start: 08/22/23 8:23:00 AM EDT Start Date: 08/22/23 Status: Ordered doxepin Start: 08/22/23 8:23:00 AM EDT Start Date: 08/22/23 Status: Ordered enoxaparin 40 mg/0.4 mL injectable solution Start: 08/22/23 8:23:00 AM EDT Start Date: 08/22/23 Status: Ordered folic acid Start: 08/22/23 8:23:00 AM EDT Start Date: 08/22/23 Status: Ordered Lyrica Start: 08/22/23 8:23:00 AM EDT Start Date: 08/22/23 Status: Ordered memantine Start: 08/22/23 8:24:00 AM EDT Start Date: 08/22/23 Status: Ordered metoprolol succinate (ER) Start: 08/22/23 8:24:00 AM EDT Start Date: 08/22/23 Status: Ordered omega-3 polyunsaturated fatty acids 667 mg with Vitamin D oral capsule Start: 08/22/23 8:24:00 AM EDT Start Date: 08/22/23 Status: Ordered oxyBUTYnin Start: 08/22/23 8:25:00 AM EDT Start Date: 08/22/23 Status: Ordered oxyCODONE Start: 08/22/23 8:25:00 AM EDT, Refills: 0 Start Date: 08/22/23 Status: Ordered polyethylene glycol 3350 Start: 08/22/23 8:25:00 AM EDT Start Date: 08/22/23 Status: Ordered Saline Mist 0.65% nasal spray Start: 08/22/23 8:25:00 AM EDT Start Date: 08/22/23 Status: Ordered SUMAtriptan Start: 08/22/23 8:26:00 AM EDT Start Date: 08/22/23 Status: Ordered tacrolimus Start: 08/22/23 8:26:00 AM EDT Start Date: 08/22/23 Status: Ordered Mental Status 09/26/23 Barriers to Learning one year None evide nt Mandatory Health Literacy Documentation Yes Health Literacy Communication Barriers N ever Primary Language Sudanese Problem List Condition Confirmation Course Effective Dates Status Health St atus Informant Fracture of metatarsal of right foot, closed Confirmed Active Fracture of fibula, proximal Confirmed Active Left knee pain Confirmed Active Diagnosis Diagnosis Type Effective Dates Health Status Clinical Service Informant Fracture of fibula, proximal Discharge Diagnosis 09/26/23 Non-Specified Left knee pain Discharge Diagnosis 09/26/23 Non-Specified Fracture of metatarsal of right foot, closed Discharge Diagnosis 09/26/23 Non-Specified Social History Social History Type Response Smoking Status Never smoked cigaret brad Sex Female Sex Representation Female (finding) Ortho Outpt Note * Caroline Ross: PERFORM, MODIFY MD Estephania, Kendrick Padron: MODIFY Event Display: Ortho Outpt Note Authored Date: [id number] Name:BREANN PENA Patient Number:[id number] :1955 Date of Service:09/26/2023 Chief Complaint 1) Right fibula fracture 2) Right foot fifth metatarsal fracture History of Present Illness [id number] Heather presents today forevaluation of right proximal fibula fracture. She initially fell in her kitchen injuring her right leg on 07/28/2023. She has started weightbearing and walking on her leg without pain. She does have braces for both knees but has difficulty getting them tight enough. She is back at home with home care and home PT which is beneficial. Physical Exam Focusing on the patient'srightlower extremity: Slow gait Flat right foot Sensation intact throughout Motor function5/5knee flexion and extension Good ROM of ankle 1+ pretibial edema 1+ edema right foot but no tenderness No ankle tenderness No side to side laxity of ankle Knee flexion to 120, extension 0 Ligament exam: Knee stable in full extension 1+ MCL laxity at 20 Otherwise stable Diagnostic Results I obtained and personally interpreted2 viewsof the right tib/fib, stored in [facility], which shows right total knee. Scattered calcifications around the knee and leg area benign in appearance.There is a healing fracture of right proximal fibula. I obtained and personally interpreted 3 views of the right ankle, stored in [facility], which shows, no arthritis or fracture ankle mortise and syndesmosis are intact. There is a plantar heel spur. intact I obtained and personally interpreted 3 views of the right foot, stored in [facility], which showschronic ossicle at base of the fifth metatarsal. Plantar heel spur. Questionable healing fracture right 5th metatarsal neck. No dislocation angulation or malalignment Assessment/Plan IMPRESSION: 1) Right proximal fibula fracture 2) Right fifth metatarsal fracture PLAN: Discontinue post-op shoe. May wear knee braces as comfortable. May wear regular shoe. Discontinue Aspirin use for DVT prophylaxis Use cane or walker for ambulation Elevation to reduce swelling Continue PT, additional order provided Follow up in 1 month with LYNNE Clemons with x-rays including3 views of right foot and 2 viewsof the right tib/fib Attestation ICaroline, scribing for and in the presence of, Kendrick Best, on this date,2:07:20. Electronic Signature on File Electronically Reviewed/Signed by: Caroline Ross Author Signature Dt/Tm:09/26/2023 01:23 PM Electronically Reviewed/Signed by: Kendrick Best MD Cosigner Signature Dt/Tm: 09/26/2023 01:56 PM Division of Sports Medicine [place] Patient Care team information Care Team Personnel Name: MD Plascencia Anthony J Position: Referring DIRECT Member Role: Primary Care Provider Address: [address] [place] [address] [place] Care Team Related Persons Name: ROCKY PENA
--- OUTSIDE RECORDS SUMMARY | 2023-10-27 21:33 | External Medical Summary | Summary of Care ---
Author Name Unknown Organization [facility] Address [address] [place] [address] Phone [phone] Care Team Providers Care Nuisance Wildlife Trapper Name Role Phone Nikunj Plascencia MD Primary Care Provider [phone] Reason for Visit * Reason Onset Date Comments Medication Refill 10/08/2023 Encounter Details Date Type Department Care Team (Late st Contact Info) Description 10/08/2023 Refill Family Practice [facility] [address] [facility] [place] [address] Nikunj Plascencia MD 132 [facility] [place] [address] Allergies Active Allergy Reactions Criticality Noted Date Comments Egg Shells Nausea/vomiting Medium 06/16/2018 Other reaction(s): GI SYMPTOMS Egg Yolk High 11/29/2019 Other reaction(s): GI upset Ibuprofen Other (Please comment) Medium 07/30/2010 Stomach upset Morphine Edema face/lips/tongue High 08/28/2021 Other reaction(s): LEGS SWELL documented as of this encounter (statuses as of 10/10/2023) Medications Medication Sig Dispensed Refills Start Date [...] 30 g 5 05/09/2022 Active Saline Nasal [place] 0.65 % Nasal Solution (Belk) Q6H 06/06/2022 Active Clobetasol Propionate 0.05 % [...] as of this encounter (statuses as of 10/10/2023) Active Problems Problem Noted Date Diagnosed Date Multiple falls 09/26/2023 Bullous pemphigoid 09/05/2023 Renal stone 03/21/2023 Presence of Watchman left atrial appendage closu re device 12/19/2022 PAF (paroxysmal atrial fibrillation) 08/17/2022 Overview: Added automatically from request for surgery [id number] Nasal septal perforation 06/13/2022 Overview: Per ENT [...] as of this encounter (statuses as of 10/10/2023) Resolved Problems Problem Noted Date Diagnosed Date [...] 140/90 12/12/201111/09 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 07/30/2018 Overview: [place] palsy Tinea 06/27/2011 07/30/2018 Mixed urge and stress incontinence 12/15/2008 10/08/2019 ADVANCE DIRECTIVE INFORMATION 06/17/2004 10/08/2019 documented as of this encounter (statuses as of 10/10/2023) Immunizations Name Administration Dates Next Due COVID-19 mRNA, LNP-s, No Pre serve, 2-Dose Series ([employer]) 10/05/2020,09/14/2020 Covid-19, Mrna, Lnp-s, Pf, B ivalent, 30 Mcg, IM, 12 yrs and above (Pfizer) 05/26/2022 Pneumococcal Conjugate Vacc, 13 Valent (Prevnar) 05/30/2016 Pneumococcal Conjugate Vacci ne, 20-valent ([id number]) 04/03/2023 Seasonal Influenza Virus Vac cine, Unspecified [...] encounter Miscellaneous Notes * Telephone Encounter - Liam Aguilar RPh - 10/10/2023 9:10 AM EDT Reviewed adherence tracker, RX from 06/04 was sent to pharmacy with 10 refills. Only filled x 1. Request cancelled and message sent to patient. ThanksLiam Rph, Pharm D. Clinical Pharmacist [facility] [phone] 10/10/2023,9:13 AM documented in this encounter Plan of Treatment Upcoming Encounters Date Type Department Care Team (Latest Contact Info) Description 10/27/2023 2:30 PM EDT Office Visit Pharmacy, [facility] [address] [facility] [place] [address] [facility] [address] [facility] [place] [address] 11/03/2023 10:00 AM EDT Hospital Encounter [facility] Waiting [facility], Cardiac Recovery Suite Waiting Unit, [address] [place] [phone] Muna Chacon MD [address] [place] [id number] 11/03/2023 10:00 AM EDT - 11/03/2023 11:00 AM EDT Surgery CRS Waiting [facility], Cardiac Recovery Suite Waiting Unit, [address] [place] [address] Muna Chacon MD [address] [place] [address] CORONARY ANGIOGRAPHY W/LEFT HEART CATH 11/03/2023 10:00 AM EDT Office Visit Cardiology [facility] [place] [address] [place] [address] [place], Cardiac Recovery [facility] [address] [place] [address] 11/24/2023 2:40 PM EDT Office Visit Podiatry [facility] [address] [place] [address] Eveline Layne, DPM [address] [place] [address] 12/01/2023 1:45 PM EDT Office Visit Dermatology [facility] [address] [place] [address] Cyril Borges MD [address] [place] [address] 12/04/2023 1:00 PM EDT Cardiac Studies Cardiac Studies, [facility] [address] [place] [address] 12/20/2023 2:30 PM EDT Imaging Radiology, [place] [address] [facility] [place] [address] 12/20/2023 3:20 PM EDT Office Visit Rheumatology [address] [place] [address] John Yoder MD [address] [place] [address] [place] [address] 01/04/2024 11:30 AM EST Appointment Radiology, [place] [address] [place] [address] 01/09/2024 1:20 PM EST Office Visit Family Practice [facility] [address] [place] [address] Nikunj Plascencia MD [address] [place] [address] 03/20/2024 2:00 PM EST Office Visit Nephrology, [facility] [place] [address] [facility] [place] [address] Geovanni Linder MD [address] [place] [address] Scheduled Procedures Name Priority Associated Diagnoses Date/Ti [...] D LEVEL ONCE IN A LIFETIME-USE SMARTSET# 24605 Completed 06/17/2023, 06/10/2022, 05/28/2021, Additional history exists [...] this encounter Medical Devices Implanted Type Area Radar Scientist Device Identifier Shelf Expiration Date Model / Serial / Lot Kyphon Hv-R Bone Cement Implanted:Qty: 1 on 08/17/2016 by Michael Smith MD at OR [facility] N/A: Spine Thoracic 03/19/2019 C01A / C01A / [id number] Cement Bone Lv G 1119-140-01 - [id number] Implanted:Qty: 1 on 06/04/2018 by Duc Kimble MD at OR [facility] Right: Knee [employer] 11/19/2020 00-1119-1 40-01 / / [id number] Cement Bone Lv G 1119-140- - [id number] Implanted:Qty: 1 on 06/04/2018 by Duc Kimble MD at OR [facility] Right: Knee [employer] 06/19/2020 00-1119-1 40-01 / / [id number] Persona The Personlized Knee System Vivacit-E Highly Crosslinked Polyethylene All-Poly Patella Cemented Implanted:Qty: 1 on 06/04/2018 by Duc Kimble MD at OR [facility] Right: Knee [employer] 06/19/2022 42-5402-0 00-35 / / [id number] Tibia Stem 5 Deg Rt Size F - [id number] Implanted:Qty: 1 on 06/04/2018 by Duc Kimble MD at OR [facility] Right: Knee [employer] 10/21/2027 42-5320-0 75-02 / / [id number] Persona The Personalized Knee System Femur Cemented Cr Standard Implanted:Qty: 1 on 06/04/2018 by Duc Kimble MD at OR [facility] Right: Knee [employer] 11/20/2027 42-5026-0 62-02 / / [id number] Persona The Personalized Knee System Vivacit-E Highly Crosslinked Polyethylene Articular Surface Medial Congruent Implanted:Qty: 1 on 06/04/2018 by Duc Kimble MD at OR [facility] Right: Knee [employer] 11/19/2022 42-5221-0 07-12 / / [id number] Device Watchman Flx 24mm - [id number] Implanted:Qty: 1 on 10/06/2022 by Austin Penaloza MD at [facility] [employer] : INTRV CARD [id number] 03/07/2025 [id number] 40 / / [id number] Device Watchman Flx 27mm - [id number] Implanted:Qty: 1 on 10/06/2022 by Austin Penaloza MD at [facility] [employer] : INTRV CARD [id number] 08/07/2025 [id number] 70 / / [id number] documented as of this encounter [place] Directives [...] Power of Attor marcel? No Care Teams Nuisance Wildlife Trapper Relationship Specialty Start Date End Date Nikunj Plascencia MD [address] [place] [address] PCP - General Family Medicine 10/31/19 documented as of this encounter
[2023-10-27 22:14] LABS: Amphetamines+Metham, Urine Neg (Neg); Barbiturates, Urine Neg (Neg); Benzodiazepine, Urine Neg (Neg); Cocaine, Urine Neg (Neg); Fentanyl, Urine Neg (Neg); MDMA (Ecstacy), Urine Pos (Neg); Marijuana, Urine Neg (Neg); Methadone, Urine Neg (Neg); Opiate, Urine Neg (Neg); Phencyclidine, Urine Neg (Neg)
[2023-10-27 22:17] LABS: Adenovirus PCR Not Detected (NotDetected); Bordetella parapertussis PCR Not Detected (NotDetected); Bordetella pertussis PCR Not Detected (NotDetected); Chlamydia pneumoniae PCR Not Detected (NotDetected); Coronavirus 229E PCR Not Detected (NotDetected); Coronavirus CoV-2 (COVID19)PCR DETECTED (NotDetected); Coronavirus HKU1 PCR Not Detected (NotDetected); Coronavirus NL63 PCR Not Detected (NotDetected); Coronavirus OC43PCR Not Detected (NotDetected); Human Metapneumovirus PCR Not Detected (NotDetected); Influenza A PCR Not Detected (NotDetected); Influenza B PCR Not Detected (NotDetected); Mycoplasma pneumoniae PCR Not Detected (NotDetected); Parainfluenza Virus 1 PCR Not Detected (NotDetected); Parainfluenza Virus 2 PCR Not Detected (NotDetected); Parainfluenza Virus 3 PCR Not Detected (NotDetected); Parainfluenza Virus 4 PCR Not Detected (NotDetected); Respiratory Syncytial VirusPCR Not Detected (NotDetected); Rhinovirus/Enterovirus PCR Not Detected (NotDetected)
[2023-10-27] MEDS: MICONAZOLE NITRATE POWDER 85 GM EXT PRN (22:44)
[2023-10-27 23:12] LABS: Hemoglobin 8.6 g/dl (12.0-16.0)
[2023-10-27] MEDS: oxyCODONE HCL IR 5 MG TAB (IMMEDIATE RELEASE) PO PRN (23:28)
[2023-10-27] MEDS: MEMANTINE HCL 10 MG TAB PO SCH (23:29)
[2023-10-27] MEDS: ATORVASTATIN 40 MG TAB PO SCH (23:29)
[2023-10-27] MEDS: METOPROLOL SUCC 25MG EXT REL TAB PO SCH (23:29)
[2023-10-27 23:30] LABS: BUN Creatinine Ratio 20.6 (10-20); Calcium 8.1 mg/dl (8.6-10.3); Creatinine Clr Calc Pharmacy 35.7 ml/min; Est GFR (African American) 27.1 ml/min; Est GFR (Non-African American) 23.4 ml/min; Potassium 4.6 mmol/L (3.5-5.1)
[2023-10-27] MEDS: DOCUSATE SODIUM 100 MG CAP PO SCH (23:31)
[2023-10-28] MEDS: ALBUT/IPRATROP 3MG/0.5MG NEB 3 ML VIAL NEB STA (04:21)
[2023-10-28 06:11] LABS: Basophils # (auto) 0.04 K/uL (0.00-0.20); Basophils % (auto) 0.4 %; Eosinophils # (auto) 0.23 K/uL (0.00-0.50); Eosinophils % (auto) 2.1 %; Hematocrit (blood only) 29.1 % (37.0-47.0); Hemoglobin 8.7 g/dl (12.0-16.0); Immature Granulocytes # (auto) 0.04 K/uL (0.01-0.20); Immature Granulocytes % (auto) 0.4 %; Lymphocytes # (auto) 1.22 K/uL (1.20-3.40); Mean Corpuscular Hemoglobin 25.9 pg (25.0-34.0); Mean Corpuscular Hgb Conc 29.9 g/dL (32.0-36.0); Mean Corpuscular Volume 86.6 fL (80.0-100.0); Mean Platelet Volume 12.4 fL (9.4-12.4); Monocytes # (auto) 0.88 K/uL (0.11-0.59); Monocytes % (auto) 7.9 %; Neutrophils # (auto) 8.66 K/uL (1.40-6.50); Neutrophils % (auto) 78.2 %; Platelet Count 113 K/uL (130-400); RDW Coefficient of Variation 17.2 % (11.5-14.5); RDW Standard Deviation 54.6 fL (36.4-46.3); Red Blood Count 3.36 M/uL (4.20-5.40); White Blood Count 11.07 K/ul (4.8-10.8)
[2023-10-28] MEDS: ALBUT/IPRATROP 3MG/0.5MG NEB 3 ML VIAL ONE (06:25)
[2023-10-28 06:30] LABS: BUN Creatinine Ratio 21.1 (10-20); Calcium 8.2 mg/dl (8.6-10.3); Creatinine Clr Calc Pharmacy 40.3 ml/min; Est GFR (African American) 31.3 ml/min
--- NOTE | 2023-10-28 07:45 | XRay Report ---
XR chest 1V portable HISTORY: 68 years-old Female renal failure acute renal failure COMPARISON: Chest CT 09/14/2023 TECHNIQUE: AP view of the chest FINDINGS: Cardiac silhouette is enlarged. Left atrial exclusion device is noted. Pulmonary vascular congestion. Interstitial coarsening without pneumothorax or pleural effusion. Degenerative changes of the should ers and spine. IMPRESSION: Cardiomegaly with suggestion of interstitial pulmonary edema. ACT 112: Negative or not required by law. The above report was generated using voice recognition software. It may contain grammatical, syntax o r spelling errors. Electronically signed by: Juan J Abad M.D. 10/28/2023 7:43 AM
--- NOTE | 2023-10-28 08:16 | Orthopedic Progress Note ---
Date of Service October 28, 2023 Assessment & Plan (1) Leg laceration: Plan: 68-year-old female with a left leg/knee laceration. We sewed this up in the ER yesterday. She has been doing okay. Plan: Orgran to keep in the knee immobilizer with no knee range of motion for the next 2 weeks at a minimum. She can fully weight-bear as tolerated in the knee immobilizer. While in the hospital eModule continue on some antibiotics and I changed her some IV antibiotics for the next 3 days. She can remove proceed with physical therapy and the knee immobilizer. Once again no knee range of motion. She can fully weight-bear as tolerated in the knee immobilizer. Any orthopedic questions can direct me [phone]. (2) Left knee injury: Admission and Anticipated Discharge Date Admission Date: October 27, 2023 Subjective 68-year-old female admitted by medicine services status post a ground-level fall. Multiple medical comorbidities. We saw her in the ER yesterday wash her knee laceration out and closed. As she seems to be doing okay. Once again she is still difficult to get to follow commands her right really communicate with. Physical Exam Physical Exam: Physical nation is a middle-age female lying in bed. Really not very responsive. Examination left leg reveals the knee immobilizer in place. Dressings clean dry and intact. Results & Data Vital Signs (Past 12 Hours) Vital Signs Temp Pulse Pulse Resp BP Pulse Ox O2 Del Method 10/28/23 07:00 92 H 10/28/23 04:55 37.3 C 98 H 18 109/75 96 Room Air 10/27/23 23:00 Room Air 10/27/23 22:40 36.5 C 62 20 125/77 95 Room Air 10/27/23 22:16 69
[2023-10-28] MEDS ORDERED: cephALEXin 500 MG CAP PO SCH (09:00)
[2023-10-28] MEDS ORDERED: METOPROLOL SUCC 25MG EXT REL TAB PO SCH (09:00)
[2023-10-28] MEDS ORDERED: MEMANTINE HCL 10 MG TAB PO SCH (09:00)
[2023-10-28] MEDS: ceFAZolin 2000MG 2,000 MG/15 ML SYR IV SCH ×2 (09:17→21:41)
[2023-10-28] MEDS: DULoxetine HCL 60 MG CAP PO SCH (09:18)
[2023-10-28] MEDS: TAMSULOSIN HCL 0.4 MG CAP PO SCH (09:19)
[2023-10-28] MEDS: FOLIC ACID 400 MCG TAB PO SCH (09:20)
[2023-10-28] MEDS: ACETAMINOPHEN 325 MG TAB PO PRN (13:02)
--- NOTE | 2023-10-28 13:31 | Hospitalist Progress Note ---
Date of Service October 28, 2023 Assessment & Plan (1) Encephalopathy: Plan: 68-year-old lady with PMH of chronic diastolic heart failure [EF 60 to 65%, TTE 2022], nonocclusive CAD, severe , PSVT, paroxysmal atrial flutter status post Watchman procedure, PE, HTN, urinary incontinence, chronic anemia [baseline hemoglobin around 9], IBS, bullous pemphigoid, migraine, anxiety/mood disorder, chronic back pain/compression fracture, recurrent falls, past tobacco abuse presented to the ED 10/26 after tripping on a box subsequently striking her left elbow and left knee. Patient was found by sister. Patient sustained bleeding lacerated wound left knee. Patient denied loss of consciousness or chest pain or shortness of breath. 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 She is being managed for the following: Mechanical fall Traumatic left knee wound History of recurrent falls/ambulatory dysfunction Admitting CT head/left elbow x-ray/C-spine CT: No acute fracture noted. Admitting left knee x-ray: Concern for avulsion fracture along the inferior aspect of patella. No additional findings suspicious for acute fracture. Large anterior soft tissue injury with associated edema. Orthopedics evaluated: Left knee wound repair 10/26. Recommends left knee immobilizer, no knee range of motion for next 2 weeks, weight-bear as tolerated in LLE With knee immobilizer. IV antibiotic for next 3 days. Total antibiotics for 5 days. PT/OT. Likely will need placement. Follow-up with orthopedics upon discharge in about 2 weeks. Hold aspirin given bleeding left knee wound, Resume once H&H stable by radha. Acute kidney injury over CKD stage III: Infection due to COVID-19 virus Metabolic encephalopathy: Likely secondary to COVID-19 virus infection and acute kidney injury. Home narcotics/neuropsychotropic medications contributory; hold them for now until mentation back to baseline. Baseline creatinine around 1.5, admitting creatinine of 2.63. Admitting BioFire positive for COVID. UA neg for UTI. CXR reviewed. Clinically patient is dry on exam. Acute kidney injury likely 2/2 poor p.o. intake in the setting of COVID-19 illness. Creatinine improving, continue with gentle IV fluid, hold lisinopril and other nephrotoxics. Labs in AM c/w symptomatic mx for covid infection. Pt on RA. Other chronic medical conditions: Continue with/resume home meds as and when able. Neuropsychotropic medications on hold. chronic diastolic heart failure (EF 60 to 65%, TTE 2022), patient on dry side hx nonocclusive CAD valvular heart disease (severe /mild AR/TR), [place] [facility] paroxysmal atrial flutter status post Watchman procedure history of PE hypertension, BP on the lower side chronic anemia, hemoglobin at baseline bullous pemphigoid on topical Rx anxiety/mood disorder chronic back pain/compression fractures past tobacco abuse DVT prophylaxis. SCDs Re: Traumatic leg wound DNR/DNI Patient's sister Ms. Michaela Paulino, contact #[phone]. Text document was generated using [employer] voice recognition software. It may contain grammatical or spelling errors. Kindly contact undersigned for clarification of any documentation item in question. Admission and Anticipated Discharge Date Admission Date: October 27, 2023 Subjective Patient was seen and examined at bedside. Patient was lying in bed, on room air, sleepy/drowsy, appears confused on exam. Per RN, no new acute event overnight, eating okay, 1 bowel movement yesterday. Patient denied pain, ROS not able in detail. Physical Exam Physical Exam: GENERAL: Disoriented, NAD, morbidly obese, no respiratory distress SKIN: Pallor, warm HEENT: pale palpebral conjunctivae, no ptosis, dry buccal mucosa NECK : Supple, short neck, no tenderness CHEST : Decreased breath sounds, scattered expiratory wheezes, no tenderness HEART : RRR, systolic murmur ABDOMEN: Some distention, nontender EXTREMITIES : Dressing LLE, Immobilizer x left knee, no other conspicuous deformities noted NEUROLOGIC : Disoriented, no facial asymmetry, gait and stance not assessed Results & Data Results & Data Vital Signs (Past 12 Hours) Vital Signs Temp Pulse Pulse Resp BP BP Pulse Ox 10/28/23 12:35 36.4 C L 94 H 18 95/57 L 95 10/28/23 09:41 36.9 C 89 20 142/71 H 95 10/28/23 07:00 92 H 10/28/23 04:55 37.3 C 98 H 18 109/75 96 O2 Del Method 10/28/23 12:35 Room Air 10/28/23 09:41 Room Air 10/28/23 07:00 10/28/23 04:55 Room Air
[2023-10-28] MEDS ORDERED: POLYETHYLENE (MIRALAX) 17 GM PACK PO PRN (13:41)
[2023-10-28] MEDS: SODIUM CHLORIDE 0.45 % 1,000 ML IV SCH (14:06)
[2023-10-28] MEDS: SODIUM CHLORIDE 0.65% NA SOLN 45 ML (OCEAN) SCH (14:06)
[2023-10-28] MEDS ORDERED: OXYBUTYNIN CHLORIDE XL 5 MG TABCR PO SCH (21:00)
[2023-10-28] MEDS ORDERED: ATORVASTATIN 40 MG TAB PO SCH (21:00)
[2023-10-28] MEDS: HYDROmorphone INJ 0.5 MG/0.5 ML SYR IV STA (23:27)
[2023-10-29 08:08] LABS: Hematocrit (blood only) 26.6 % (37.0-47.0); Mean Corpuscular Hemoglobin 25.9 pg (25.0-34.0); Mean Corpuscular Hgb Conc 30.1 g/dL (32.0-36.0); Mean Corpuscular Volume 86.1 fL (80.0-100.0); Mean Platelet Volume 12.8 fL (9.4-12.4); Platelet Count 108 K/uL (130-400); RDW Coefficient of Variation 17.3 % (11.5-14.5); RDW Standard Deviation 54.8 fL (36.4-46.3); Red Blood Count 3.09 M/uL (4.20-5.40); White Blood Count 9.35 K/ul (4.8-10.8)
[2023-10-29] MEDS: CYANOCOBALAMIN (B-12) 500 MCG TABLET PO SCH (08:32)
[2023-10-29 09:19] LABS: Albumin Level 2.9 gm/dl (3.4-5.0); Bilirubin Direct 0.1 mg/dl (0-0.2); Bilirubin,Total 0.3 mg/dl (0.2-1.0); Calcium 7.7 mg/dl (8.6-10.3); Potassium 4.8 mmol/L (3.5-5.1)
[2023-10-29 09:25] LABS: BUN Creatinine Ratio 19.6 (10-20); Creatinine Clr Calc Pharmacy 35.3 ml/min; Est GFR (African American) 26.4 ml/min; Est GFR (Non-African American) 22.7 ml/min; Total Protein 5.5 gm/dl (6.0-8.3)
[2023-10-29] MEDS: oxyCODONE HCL IR 5 MG TAB (IMMEDIATE RELEASE) PO STA (10:27)
--- NOTE | 2023-10-29 13:29 | Hospitalist Progress Note ---
Date of Service October 29, 2023 Assessment & Plan (1) Encephalopathy: Plan: 68-year-old lady with PMH of chronic diastolic heart failure [EF 60 to 65%, TTE 2022], nonocclusive CAD, severe , PSVT, paroxysmal atrial flutter status post Watchman procedure, PE, HTN, urinary incontinence, chronic anemia [baseline hemoglobin around 9], IBS, bullous pemphigoid, migraine, anxiety/mood disorder, chronic back pain/compression fracture, recurrent falls, past tobacco abuse presented to the ED 10/26 after tripping on a box subsequently striking her left elbow and left knee. Patient was found by sister. Patient sustained bleeding lacerated wound left knee. Patient denied loss of consciousness or chest pain or shortness of breath. 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 She is being managed for the following: Mechanical fall Traumatic left knee wound History of recurrent falls/ambulatory dysfunction Admitting CT head/left elbow x-ray/C-spine CT: No acute fracture noted. Admitting left knee x-ray: Concern for avulsion fracture along the inferior aspect of patella. No additional findings suspicious for acute fracture. Large anterior soft tissue injury with associated edema. Orthopedics evaluated: Left knee wound repair 10/26. Recommends left knee immobilizer, no knee range of motion for next 2 weeks, weight-bear as tolerated in LLE With knee immobilizer. IV antibiotic for next 3 days. Total antibiotics for 5 days. PT/OT. Likely will need placement. Follow-up with orthopedics upon discharge in about 2 weeks. Hold aspirin given bleeding left knee wound, Resume once H&H stable. Acute kidney injury over CKD stage III: Infection due to COVID-19 virus Metabolic encephalopathy: Likely secondary to COVID-19 virus infection and acute kidney injury. Home narcotics/neuropsychotropic medications contributory; hold them for now until mentation back to baseline. Baseline creatinine around 1.5, admitting creatinine of 2.63. Admitting BioFire positive for COVID. UA neg for UTI. CXR reviewed. Clinically patient is dry on exam. Acute kidney injury likely 2/2 poor p.o. intake in the setting of COVID-19 illness. Creatinine slightly bumped up, continue with gentle IV fluid, hold lisinopril and other nephrotoxics. Labs in AM c/w symptomatic mx for covid infection. Pt on RA. Other chronic medical conditions: Continue with/resume home meds as and when able. Neuropsychotropic medications on hold. chronic diastolic heart failure (EF 60 to 65%, TTE 2022), patient on dry side hx nonocclusive CAD valvular heart disease (severe /mild AR/TR), [place] [facility] paroxysmal atrial flutter status post Watchman procedure history of PE hypertension, BP on the lower side chronic anemia, hemoglobin at baseline bullous pemphigoid on topical Rx anxiety/mood disorder chronic back pain/compression fractures past tobacco abuse DVT prophylaxis. SCDs Re: Traumatic leg wound DNR/DNI Patient's sister Ms. Michaela Paulino, contact #[phone]. Text document was generated using [employer] voice recognition software. It may contain grammatical or spelling errors. Kindly contact undersigned for clarification of any documentation item in question. Admission and Anticipated Discharge Date Admission Date: October 27, 2023 Subjective Patient was seen and examined at bedside. Patient was lying in bed, on room air, sleepy/drowsy, appears confused on exam. Per RN, no new acute event overnight, eating okay, 1 bowel movement day before yesterday. Patient reports back pain, prn pain meds added. denies other ros. Physical Exam Physical Exam: GENERAL: Disoriented, NAD, morbidly obese, no respiratory distress SKIN: Pallor, warm HEENT: pale palpebral conjunctivae, no ptosis, dry buccal mucosa NECK : Supple, short neck, no tenderness CHEST : Decreased breath sounds, scattered expiratory wheezes, no tenderness HEART : RRR, systolic murmur ABDOMEN: Some distention, nontender EXTREMITIES : Dressing LLE, Immobilizer x left knee, no other conspicuous deformities noted NEUROLOGIC : Disoriented, no facial asymmetry, gait and stance not assessed Results & Data Results & Data Vital Signs (Past 12 Hours) Vital Signs Temp Pulse Pulse Resp BP Pulse Ox O2 Del Method 10/29/23 12:21 36.4 C L 69 16 104/69 93 Room Air 10/29/23 08:30 Room Air 10/29/23 08:00 36.6 C 73 18 106/68 94 Room Air 10/29/23 07:00 63 10/29/23 04:00 36.4 C L 93 H 16 133/84 95 Room Air
[2023-10-29] MEDS: HYDROmorphone INJ 0.5 MG/0.5 ML SYR IV PRN (20:16)
[2023-10-29] MEDS: oxyCODONE HCL IR 5 MG TAB (IMMEDIATE RELEASE) PO PRN (21:10)
--- NOTE | 2023-10-29 22:27 | Electrocardiogram Report ---
Test Reason : Blood Pressure : */* mmHG Vent. Rate : 63 BPM Atrial Rate : 63 BPM P-R Int : 150 ms QRS Dur : 80 ms QT Int : 412 ms P-R-T Axes : 14 -14 15 degrees QTcB Int : 421 ms Normal sinus rhythm Septal infarct , age undetermined Abnormal ECG When compared with ECG of 14-Sep-2023 10:51, Septal infarct is now Present Confirmed by Shaun Queen ([id number]) on 10/29/2023 10:26:36 PM Referred By: REFERRED SELF Confirmed By: Shaun Queen
[2023-10-30 06:13] LABS: Hematocrit (blood only) 25.6 % (37.0-47.0); Hemoglobin 7.6 g/dl (12.0-16.0); Mean Corpuscular Hemoglobin 25.6 pg (25.0-34.0); Mean Corpuscular Hgb Conc 29.7 g/dL (32.0-36.0); Mean Corpuscular Volume 86.2 fL (80.0-100.0); Mean Platelet Volume 12.5 fL (9.4-12.4); Platelet Count 121 K/uL (130-400); RDW Coefficient of Variation 17.1 % (11.5-14.5); RDW Standard Deviation 54.3 fL (36.4-46.3); Red Blood Count 2.97 M/uL (4.20-5.40); White Blood Count 8.05 K/ul (4.8-10.8)
[2023-10-30 06:25] LABS: BUN Creatinine Ratio 22.4 (10-20); Calcium 7.7 mg/dl (8.6-10.3); Creatinine Clr Calc Pharmacy 39.2 ml/min; Est GFR (African American) 30.1 ml/min; Potassium 5.1 mmol/L (3.5-5.1)
[2023-10-30 13:15] LABS: Hematocrit (blood only) 26.6 % (37.0-47.0); Hemoglobin 7.9 g/dl (12.0-16.0)
--- NOTE | 2023-10-30 15:41 | Hospitalist Progress Note ---
Date of Service October 30, 2023 Assessment & Plan (1) Encephalopathy: Plan: 68-year-old lady with PMH of chronic diastolic heart failure [EF 60 to 65%, TTE 2022], nonocclusive CAD, severe , PSVT, paroxysmal atrial flutter status post Watchman procedure, PE, HTN, urinary incontinence, chronic anemia [baseline hemoglobin around 9], IBS, bullous pemphigoid, migraine, anxiety/mood disorder, chronic back pain/compression fracture, recurrent falls, past tobacco abuse presented to the ED 10/26 after tripping on a box subsequently striking her left elbow and left knee. Patient was found by sister. Patient sustained bleeding lacerated wound left knee. Patient denied loss of consciousness or chest pain or shortness of breath. 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 She is being managed for the following: Mechanical fall Traumatic left knee wound History of recurrent falls/ambulatory dysfunction Admitting CT head/left elbow x-ray/C-spine CT: No acute fracture noted. Admitting left knee x-ray: Concern for avulsion fracture along the inferior aspect of patella. No additional findings suspicious for acute fracture. Large anterior soft tissue injury with associated edema. Orthopedics evaluated: Left knee wound repair 10/26. Recommends left knee immobilizer, no knee range of motion for next 2 weeks, weight-bear as tolerated in LLE With knee immobilizer. IV antibiotic for next 3 days. Total antibiotics for 5 days. PT/OT. Likely will need placement. Follow-up with orthopedics upon discharge in about 2 weeks. Hold aspirin given bleeding left knee wound, Resume once H&H deemed stable. HnH fluctuating, follow closely. Acute kidney injury over CKD stage III: Infection due to COVID-19 virus Metabolic encephalopathy: Likely secondary to COVID-19 virus infection and acute kidney injury. Home narcotics/neuropsychotropic medications contributory; hold them for now until mentation back to baseline. Baseline creatinine around 1.5, admitting creatinine of 2.63. Admitting BioFire positive for COVID. UA neg for UTI. CXR reviewed. Clinically patient is dry on exam. Acute kidney injury likely 2/2 poor p.o. intake in the setting of COVID-19 illness. Creatinine slightly down today, continue with gentle IV fluid, hold lisinopril and other nephrotoxics. Labs in AM c/w symptomatic mx for covid infection. Pt on RA. Other chronic medical conditions: Continue with/resume home meds as and when able. Neuropsychotropic medications on hold. chronic diastolic heart failure (EF 60 to 65%, TTE 2022), patient on dry side hx nonocclusive CAD valvular heart disease (severe /mild AR/TR), TAVR contemplated at [facility] [place] paroxysmal atrial flutter status post Watchman procedure history of PE hypertension, BP on the lower side chronic anemia, hemoglobin at baseline bullous pemphigoid on topical Rx anxiety/mood disorder chronic back pain/compression fractures past tobacco abuse DVT prophylaxis. SCDs Re: Traumatic leg wound DNR/DNI Patient's sister Ms. Michaela Paulino, contact #[phone]. Text document was generated using [employer] voice recognition software. It may contain grammatical or spelling errors. Kindly contact undersigned for clarification of any documentation item in question. Admission and Anticipated Discharge Date Admission Date: October 29, 2023 Subjective Patient was seen and examined at bedside. Patient was lying in bed, on room air, more alert and conversive today. Denies pain, reports improving cough. Denies any other complaints. Physical Exam Physical Exam: GENERAL: Disoriented, NAD, morbidly obese, no respiratory distress SKIN: Pallor, warm HEENT: pale palpebral conjunctivae, no ptosis, moist buccal mucosa NECK : Supple, short neck, no tenderness CHEST : Decreased breath sounds, scattered expiratory wheezes, no tenderness HEART : RRR, systolic murmur ABDOMEN: Some distention, nontender EXTREMITIES : Dressing LLE, Immobilizer x left knee, no other conspicuous deformities noted NEUROLOGIC : Disoriented, no facial asymmetry, gait and stance not assessed Results & Data Results & Data Vital Signs (Past 12 Hours) Vital Signs Temp Pulse Pulse Resp BP Pulse Ox O2 Del Method 10/30/23 11:35 36.6 C 84 20 94/57 L 96 Room Air 10/30/23 07:39 75 10/30/23 07:38 36.6 C 81 18 93/60 L 95 Room Air 10/30/23 07:00 Room Air
[2023-10-31 06:09] LABS: Hematocrit (blood only) 24.9 % (37.0-47.0); Hemoglobin 7.5 g/dl (12.0-16.0); Mean Corpuscular Hemoglobin 25.6 pg (25.0-34.0); Mean Corpuscular Hgb Conc 30.1 g/dL (32.0-36.0); Platelet Count 125 K/uL (130-400); RDW Coefficient of Variation 16.8 % (11.5-14.5); RDW Standard Deviation 52.7 fL (36.4-46.3); Red Blood Count 2.93 M/uL (4.20-5.40); White Blood Count 6.92 K/ul (4.8-10.8)
[2023-10-31 06:24] LABS: BUN Creatinine Ratio 23.8 (10-20); Creatinine Clr Calc Pharmacy 48.2 ml/min; Est GFR (African American) 38.5 ml/min; Est GFR (Non-African American) 33.2 ml/min
[2023-10-31] MEDS: SODIUM CHLORIDE 0.45 % 1,000 ML IV SCH (09:03)
--- NOTE | 2023-10-31 15:06 | Hospitalist Progress Note ---
Date of Service October 31, 2023 Assessment & Plan (1) Encephalopathy: Plan: 68-year-old lady with PMH of chronic diastolic heart failure [EF 60 to 65%, TTE 2022], nonocclusive CAD, severe , PSVT, paroxysmal atrial flutter status post Watchman procedure, PE, HTN, urinary incontinence, chronic anemia [baseline hemoglobin around 9], IBS, bullous pemphigoid, migraine, anxiety/mood disorder, chronic back pain/compression fracture, recurrent falls, past tobacco abuse presented to the ED 10/26 after tripping on a box subsequently striking her left elbow and left knee. Patient was found by sister. Patient sustained bleeding lacerated wound left knee. Patient denied loss of consciousness or chest pain or shortness of breath. 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 She is being managed for the following: Mechanical fall Traumatic left knee wound History of recurrent falls/ambulatory dysfunction Admitting CT head/left elbow x-ray/C-spine CT: No acute fracture noted. Admitting left knee x-ray: Concern for avulsion fracture along the inferior aspect of patella. No additional findings suspicious for acute fracture. Large anterior soft tissue injury with associated edema. Orthopedics evaluated: Left knee wound repair 10/26. Recommends left knee immobilizer, no knee range of motion for next 2 weeks, weight-bear as tolerated in LLE With knee immobilizer. IV antibiotic for next 3 days. Total antibiotics for 5 days. PT/OT. Likely will need placement. Follow-up with orthopedics upon discharge in about 2 weeks. Hold aspirin given bleeding left knee wound, Resume once H&H deemed stable. HnH fluctuating, follow closely. Will get Left knee xray to ro hematoma. Acute kidney injury over CKD stage III: Infection due to COVID-19 virus Metabolic encephalopathy: Likely secondary to COVID-19 virus infection and acute kidney injury. Home narcotics/neuropsychotropic medications contributory; hold them for now until mentation back to baseline. Baseline creatinine around 1.5, admitting creatinine of 2.63. Admitting BioFire positive for COVID. UA neg for UTI. CXR reviewed. Clinically patient was dry on exam. Acute kidney injury likely 2/2 poor p.o. intake in the setting of COVID-19 illness. s/p ivf. Creatinine improving towards baseline, dc ivf, hold lisinopril and other nephrotoxics. likely resume lisinopril in AM. Labs in AM c/w symptomatic mx for covid infection. Pt on RA. Other chronic medical conditions: Continue with/resume home meds as and when able. Neuropsychotropic medications on hold. chronic diastolic heart failure (EF 60 to 65%, TTE 2022), patient on dry side hx nonocclusive CAD valvular heart disease (severe /mild AR/TR), TAVR contemplated at [facility] [place] paroxysmal atrial flutter status post Watchman procedure history of PE hypertension, BP better now. chronic anemia, hemoglobin at baseline bullous pemphigoid on topical Rx anxiety/mood disorder chronic back pain/compression fractures past tobacco abuse DVT prophylaxis. SCDs Re: Traumatic leg wound DNR/DNI Patient's sister Ms. Michaela Paulino, contact #[phone]. Updated 10/30 over the phone, answered all her questions. Text document was generated using [employer] voice recognition software. It may contain grammatical or spelling errors. Kindly contact undersigned for clarification of any documentation item in question. Admission and Anticipated Discharge Date Admission Date: October 29, 2023 Subjective Patient was seen and examined at bedside. Patient was lying in bed, on room air, alert and conversive. Denies pain, reports improving cough. Denies any other complaints. Per RN, very good appetite today. Will DC IVF as Cr also improved. Pt reports last BM yesterday. Physical Exam Physical Exam: GENERAL: Alert awake, NAD, morbidly obese, no respiratory distress SKIN: Pallor, warm HEENT: pale palpebral conjunctivae, no ptosis, moist buccal mucosa NECK : Supple, short neck, no tenderness CHEST : Decreased breath sounds, scattered expiratory wheezes, no tenderness HEART : RRR, systolic murmur ABDOMEN: Some distention, nontender EXTREMITIES : Dressing LLE, Immobilizer x left knee, no other conspicuous deformities noted NEUROLOGIC : Disoriented, no facial asymmetry, gait and stance not assessed Results & Data Results & Data Vital Signs (Past 12 Hours) Vital Signs Temp Pulse Pulse Resp BP BP Pulse Ox 10/31/23 14:25 78 10/31/23 12:32 36.5 C 70 16 143/76 H 100 10/31/23 08:00 10/31/23 07:49 36.4 C L 69 16 126/66 100 10/31/23 07:20 67 10/31/23 05:13 36.4 C L 80 20 96/54 L 94 O2 Del Method 10/31/23 14:25 10/31/23 12:32 Room Air 10/31/23 08:00 Room Air 10/31/23 07:49 Room Air 10/31/23 07:20 10/31/23 05:13 Room Air
--- NOTE | 2023-10-31 15:51 | XRay Report ---
XR knee LT 1 or 2V routine CLINICAL HISTORY: ro hematoma. Left knee pain. COMPARISON STUDY: Left knee 10/27/2023. FINDINGS: Small nondisplaced fracture at the inferior patella again noted. This favors a subacute fra cture. No additional fractures within the left knee. Anterior soft tissue swelling/laceration is agai n noted. There are severe tricompartmental osteoarthritis. A moderate joint effusion remains unchange d. IMPRESSION: 1. Nondisplaced fracture of the inferior patella favors a subacute injury. 2. Otherwise, no acute fractures within the left knee. 3. Anterior soft tissue injury again noted. 4. Moderate joint effusion, unchanged. 5. Severe tricompartmental osteoarthritis. ACT 112: Negative or not required by law. Electronically signed by: Everardo Colin M.D. 10/31/2023 3:50 PM
[2023-10-31] MEDS: PREGABALIN 100 MG CAP PO SCH (21:30)
[2023-11-01 04:22] LABS: Hematocrit (blood only) 24.9 % (37.0-47.0); Hemoglobin 7.6 g/dl (12.0-16.0); Mean Corpuscular Hemoglobin 25.5 pg (25.0-34.0); Mean Corpuscular Hgb Conc 30.5 g/dL (32.0-36.0); Mean Corpuscular Volume 83.6 fL (80.0-100.0); Mean Platelet Volume 11.9 fL (9.4-12.4); Platelet Count 143 K/uL (130-400); RDW Coefficient of Variation 16.9 % (11.5-14.5); Red Blood Count 2.98 M/uL (4.20-5.40); White Blood Count 7.52 K/ul (4.8-10.8)
[2023-11-01 04:49] LABS: BUN Creatinine Ratio 21.7 (10-20); Calcium 8.3 mg/dl (8.6-10.3); Creatinine Clr Calc Pharmacy 59.7 ml/min; Est GFR (Non-African American) 43.1 ml/min; Magnesium 1.9 mg/dl (1.7-2.4); Phosphorus 2.7 mg/dl (2.5-4.9); Potassium 4.5 mmol/L (3.5-5.1)
--- NOTE | 2023-11-01 10:12 | Hospitalist Progress Note ---
Date of Service November 01, 2023 Assessment & Plan (1) Encephalopathy: Plan: 68-year-old lady with PMH of chronic diastolic heart failure [EF 60 to 65%, TTE 2022], nonocclusive CAD, severe , PSVT, paroxysmal atrial flutter status post Watchman procedure, PE, HTN, urinary incontinence, chronic anemia [baseline hemoglobin around 9], IBS, bullous pemphigoid, migraine, anxiety/mood disorder, chronic back pain/compression fracture, recurrent falls, past tobacco abuse presented to the ED 10/26 after tripping on a box subsequently striking her left elbow and left knee. Patient was found by sister. Patient sustained bleeding lacerated wound left knee. Patient denied loss of consciousness or chest pain or shortness of breath. She is being managed for the following: Mechanical fall Traumatic left knee wound History of recurrent falls/ambulatory dysfunction Admitting CT head/left elbow x-ray/C-spine CT: No acute fracture noted. Admitting left knee x-ray: Concern for avulsion fracture along the inferior aspect of patella. No additional findings suspicious for acute fracture. Large anterior soft tissue injury with associated edema. Orthopedics evaluated: Left knee wound repair 10/26. Recommends left knee immobilizer, no knee range of motion for next 2 weeks, weight-bear as tolerated in LLE With knee immobilizer. IV antibiotic for next 3 days. Total antibiotics for 5 days. will need following with surgery Follow-up with orthopedics upon discharge in about 2 weeks. Hold aspirin given bleeding left knee wound, Acute kidney injury over CKD stage III: Infection due to COVID-19 virus Metabolic encephalopathy: Likely secondary to COVID-19 virus infection and acute kidney injury. Home narcotics/neuropsychotropic medications contributory; hold them for now until mentation back to baseline. Baseline creatinine around 1.5, admitting creatinine of 2.63. Admitting BioFire positive for COVID. UA neg for UTI. Acute kidney injury likely 2/2 poor p.o. intake in the setting of COVID-19 illness. s/p ivf. Creatinine improving towards baseline, Labs in AM c/w symptomatic mx for covid infection. Pt on RA. Other chronic medical conditions: Continue with/resume home meds as and when able. Neuropsychotropic medications on hold. chronic diastolic heart failure (EF 60 to 65%, TTE 2022), patient on dry side hx nonocclusive CAD valvular heart disease (severe /mild AR/TR), TAVR contemplated at [facility] [place] paroxysmal atrial flutter status post Watchman procedure history of PE hypertension, BP better now. chronic anemia, hemoglobin at baseline bullous pemphigoid on topical Rx anxiety/mood disorder chronic back pain/compression fractures past tobacco abuse DVT prophylaxis. heparin DNR/DNI Disposition- will need rehab. interested in going to [facility]. CM on board. Time spent evaluating patient, direct bedside care, chart review, placing orders, interpretation of diagnostic studies, discussion with consultants, patient, and family members, as well as other required patient management activities is 50 minutes Please note the above document was generated using voice recognition software. It may contain grammatical, syntax or spelling errors. Any formal questions or concerns about the content, text or information contained within the body of thi s dictation should be directly addressed to the provider for clarification Admission and Anticipated Discharge Date Admission Date: October 29, 2023 Subjective Patient seen and examined at bedside. Comfortable; not in distress. Denies fever, chills, chest pain, shortness of breath, abdominal pain or urinary symptoms. No significant overnight events Review of Systems Review of Systems: All systems reviewed & are unremarkable except as noted in Subjective Physical Exam Physical Exam: GENERAL: Alert awake, NAD, morbidly obese, no respiratory distress CHEST : Decreased breath sounds, scattered expiratory wheezes, no tenderness HEART : RRR, systolic murmur ABDOMEN: Some distention, nontender EXTREMITIES : Dressing LLE, Immobilizer x left knee, no other conspicuous deformities noted NEUROLOGIC : Disoriented, no facial asymmetry, gait and stance not assessed Results & Data Results & Data Vital Signs (Past 12 Hours) Vital Signs Temp Pulse Pulse Resp BP Pulse Ox O2 Del Method 11/01/23 08:13 36.6 C 81 16 137/77 98 Room Air 11/01/23 03:57 36.6 C 75 16 118/70 Room Air 11/01/23 00:24 36.6 C 18 113/74 96 Room Air
[2023-11-01 12:37] LABS: MDA negative; MDEA negative; MDMA (Ecstasy) Urine, Confirm negative
[2023-11-01] MEDS: HEPARIN SOD 5,000 UNIT/0.5 ML VIAL SQ SCH (20:29)
[2023-11-02 06:25] LABS: Calcium 8.4 mg/dl (8.6-10.3); Creatinine Clr Calc Pharmacy 56.3 ml/min; Est GFR (African American) 46.5 ml/min; Est GFR (Non-African American) 40.1 ml/min; Potassium 4.5 mmol/L (3.5-5.1)
[2023-11-02 06:29] LABS: Basophils # (auto) 0.04 K/uL (0.00-0.20); Basophils % (auto) 0.6 %; Eosinophils # (auto) 0.52 K/uL (0.00-0.50); Eosinophils % (auto) 7.2 %; Hemoglobin 7.3 g/dl (12.0-16.0); Immature Granulocytes # (auto) 0.06 K/uL (0.01-0.20); Immature Granulocytes % (auto) 0.8 %; Lymphocytes # (auto) 2.31 K/uL (1.20-3.40); Lymphocytes % (auto) 32.1 %; Mean Corpuscular Hemoglobin 25.8 pg (25.0-34.0); Mean Corpuscular Hgb Conc 30.4 g/dL (32.0-36.0); Mean Corpuscular Volume 84.8 fL (80.0-100.0); Monocytes # (auto) 0.85 K/uL (0.11-0.59); Monocytes % (auto) 11.8 %; Neutrophils # (auto) 3.42 K/uL (1.40-6.50); Neutrophils % (auto) 47.5 %; Platelet Count 157 K/uL (130-400); RDW Coefficient of Variation 17.2 % (11.5-14.5); RDW Standard Deviation 53.2 fL (36.4-46.3); Red Blood Count 2.83 M/uL (4.20-5.40)
[2023-11-02 06:50] LABS: Polychromasia 1+
--- NOTE | 2023-11-02 09:19 | Hospitalist Progress Note ---
Date of Service November 02, 2023 Assessment & Plan (1) Encephalopathy: Plan: 68-year-old lady with PMH of chronic diastolic heart failure [EF 60 to 65%, TTE 2022], nonocclusive CAD, severe , PSVT, paroxysmal atrial flutter status post Watchman procedure, PE, HTN, urinary incontinence, chronic anemia [baseline hemoglobin around 9], IBS, bullous pemphigoid, migraine, anxiety/mood disorder, chronic back pain/compression fracture, recurrent falls, past tobacco abuse presented to the ED 10/26 after tripping on a box subsequently striking her left elbow and left knee. Patient was found by sister. Patient sustained bleeding lacerated wound left knee. Patient denied loss of consciousness or chest pain or shortness of breath. She is being managed for the following: Mechanical fall Traumatic left knee wound History of recurrent falls/ambulatory dysfunction Admitting CT head/left elbow x-ray/C-spine CT: No acute fracture noted. Admitting left knee x-ray: Concern for avulsion fracture along the inferior aspect of patella. No additional findings suspicious for acute fracture. Large anterior soft tissue injury with associated edema. Orthopedics evaluated: Left knee wound repair 10/26. Recommends left knee immobilizer, no knee range of motion for next 2 weeks, weight-bear as tolerated in LLE With knee immobilizer. Total antibiotics for 5 days. will need following with surgery Follow-up with orthopedics upon discharge in about 2 weeks. Hold aspirin given bleeding left knee wound, Acute kidney injury over CKD stage III: Infection due to COVID-19 virus Metabolic encephalopathy: Likely secondary to COVID-19 virus infection and acute kidney injury. Home narcotics/neuropsychotropic medications contributory; hold them for now until mentation back to baseline. Baseline creatinine around 1.5, admitting creatinine of 2.63. Admitting BioFire positive for COVID. UA neg for UTI. Acute kidney injury likely 2/2 poor p.o. intake in the setting of COVID-19 illness. s/p ivf. Creatinine improving towards baseline, Other chronic medical conditions: Continue with/resume home meds as and when able. Neuropsychotropic medications on hold. chronic diastolic heart failure (EF 60 to 65%, TTE 2022), patient on dry side hx nonocclusive CAD valvular heart disease (severe /mild AR/TR), TAVR contemplated at [facility] paroxysmal atrial flutter status post Watchman procedure history of PE hypertension, BP better now. chronic anemia, hemoglobin at baseline bullous pemphigoid on topical Rx anxiety/mood disorder chronic back pain/compression fractures past tobacco abuse DVT prophylaxis. heparin DNR/DNI Disposition- will need rehab. interested in going to [facility]. CM on board. Please note the above document was generated using voice recognition software. It may contain grammatical, syntax or spelling errors. Any formal questions or concerns about the content, text or information contained within the body of this dictation should be directly addressed to the provider for clarification Admission and Anticipated Discharge Date Admission Date: October 29, 2023 Subjective Patient seen and examined at bedside. Comfortable; not in distress. Denies fever, chills, chest pain, shortness of breath, abdominal pain or urinary symptoms. No significant overnight events Review of Systems Review of Systems: All systems reviewed & are unremarkable except as noted in Subjective Physical Exam Physical Exam: GENERAL: Alert awake, NAD, morbidly obese, no respiratory distress CHEST : Decreased breath sounds, scattered expiratory wheezes, no tenderness HEART : RRR, systolic murmur ABDOMEN: Some distention, nontender EXTREMITIES : Dressing LLE, Immobilizer x left knee, no other conspicuous deformities noted NEUROLOGIC : Disoriented, no facial asymmetry, gait and stance not assessed Results & Data Results & Data Vital Signs (Past 12 Hours) Vital Signs Temp Pulse Pulse Resp BP Pulse Ox O2 Del Method 11/02/23 08:36 36.6 C 64 20 129/72 97 Room Air 11/02/23 07:02 65 11/02/23 03:03 37 C 74 16 102/66 94 Room Air 11/01/23 22:46 37.1 C 82 16 117/73 91 Room Air 11/01/23 22:01 84
[2023-11-03 06:07] LABS: Basophils # (auto) 0.05 K/uL (0.00-0.20); Basophils % (auto) 0.6 %; Eosinophils % (auto) 7.8 %; Hematocrit (blood only) 25.5 % (37.0-47.0); Hemoglobin 7.6 g/dl (12.0-16.0); Immature Granulocytes # (auto) 0.06 K/uL (0.01-0.20); Immature Granulocytes % (auto) 0.8 %; Lymphocytes # (auto) 2.38 K/uL (1.20-3.40); Lymphocytes % (auto) 30.8 %; Mean Corpuscular Hemoglobin 25.5 pg (25.0-34.0); Mean Corpuscular Hgb Conc 29.8 g/dL (32.0-36.0); Mean Corpuscular Volume 85.6 fL (80.0-100.0); Mean Platelet Volume 11.6 fL (9.4-12.4); Monocytes # (auto) 0.82 K/uL (0.11-0.59); Monocytes % (auto) 10.6 %; Neutrophils # (auto) 3.82 K/uL (1.40-6.50); Neutrophils % (auto) 49.4 %; Platelet Count 172 K/uL (130-400); RDW Standard Deviation 53.7 fL (36.4-46.3); Red Blood Count 2.98 M/uL (4.20-5.40); White Blood Count 7.73 K/ul (4.8-10.8)
[2023-11-03 06:08] LABS: BUN Creatinine Ratio 17.9 (10-20); Calcium 8.6 mg/dl (8.6-10.3); Est GFR (African American) 39.7 ml/min; Est GFR (Non-African American) 34.3 ml/min; Potassium 4.6 mmol/L (3.5-5.1)
[2023-11-03 06:29] LABS: Polychromasia 1+
[2023-11-03 08:09] VITALS: RESP 20; TEMP 97.5; O2SAT 99
--- NOTE | 2023-11-03 09:14 | Hospitalist Progress Note ---
Date of Service November 03, 2023 Assessment & Plan (1) Encephalopathy: Plan: 68-year-old lady with PMH of chronic diastolic heart failure [EF 60 to 65%, TTE 2022], nonocclusive CAD, severe , PSVT, paroxysmal atrial flutter status post Watchman procedure, PE, HTN, urinary incontinence, chronic anemia [baseline hemoglobin around 9], IBS, bullous pemphigoid, migraine, anxiety/mood disorder, chronic back pain/compression fracture, recurrent falls, past tobacco abuse presented to the ED 10/26 after tripping on a box subsequently striking her left elbow and left knee. Patient was found by sister. Patient sustained bleeding lacerated wound left knee. Patient denied loss of consciousness or chest pain or shortness of breath. She is being managed for the following: Mechanical fall Traumatic left knee wound History of recurrent falls/ambulatory dysfunction Admitting CT head/left elbow x-ray/C-spine CT: No acute fracture noted. Admitting left knee x-ray: Concern for avulsion fracture along the inferior aspect of patella. No additional findings suspicious for acute fracture. Large anterior soft tissue injury with associated edema. Orthopedics evaluated: Left knee wound repair 10/26. Recommends left knee immobilizer, no knee range of motion for next 2 weeks, weight-bear as tolerated in LLE With knee immobilizer. Total antibiotics for 5 days. will need following with surgery Follow-up with orthopedics upon discharge in about 2 weeks. Hold aspirin given bleeding left knee wound, Acute kidney injury over CKD stage III: Infection due to COVID-19 virus Metabolic encephalopathy: Likely secondary to COVID-19 virus infection and acute kidney injury. Home narcotics/neuropsychotropic medications contributory; hold them for now Baseline creatinine around 1.5, admitting creatinine of 2.63. Admitting BioFire positive for COVID. UA neg for UTI. Acute kidney injury likely 2/2 poor p.o. intake in the setting of COVID-19 illness. s/p ivf. Creatinine back to baseline Other chronic medical conditions: Continue with/resume home meds as and when able. chronic diastolic heart failure (EF 60 to 65%, TTE 2022), patient on dry side hx nonocclusive CAD valvular heart disease (severe /mild AR/TR), TAVR contemplated at [facility] [place] paroxysmal atrial flutter status post Watchman procedure history of PE hypertension, BP better now. chronic anemia, hemoglobin at baseline bullous pemphigoid on topical Rx anxiety/mood disorder chronic back pain/compression fractures past tobacco abuse DVT prophylaxis. heparin DNR/DNI Disposition- will need rehab. interested in going to [facility]. CM on board. Please note the above document was generated using voice recognition software. It may contain grammatical, syntax or spelling errors. Any formal questions or concerns about the content, text or information contained within the body of this dictation should be directly addressed to the provider for clarification Admission and Anticipated Discharge Date Admission Date: October 29, 2023 Subjective Patient seen and examined at bedside. She is comfortable; not in any distress. Reports that the pain is well-controlled No significant events overnight Review of Systems Review of Systems: All systems reviewed & are unremarkable except as noted in Subjective Physical Exam Physical Exam: GENERAL: Alert awake, NAD, morbidly obese, no respiratory distress CHEST : Bilateral vesicular breath sound HEART : RRR, systolic murmur ABDOMEN: Some distention, nontender EXTREMITIES : Dressing LLE, Immobilizer x left knee, no other conspicuous deformities noted NEUROLOGIC : AO X3, no facial asymmetry, follows commands appropriately Results & Data Results & Data Vital Signs (Past 12 Hours) Vital Signs Temp Pulse Pulse Resp BP Pulse Ox O2 Del Method 11/03/23 08:59 64 11/03/23 08:59 Room Air 11/03/23 08:08 36.4 C L 71 20 135/79 99 Room Air 11/03/23 03:48 36.2 C L 71 18 126/72 95 Room Air 11/02/23 23:03 36.3 C L 66 18 117/72 96 Room Air 11/02/23 22:50 Room Air 11/02/23 22:13 65
--- NOTE | 2023-11-03 13:53 | Discharge Summary ---
Date of Service November 03, 2023 Admission HPI Per Admitting Provider History obtained from patient, family, and records. History somewhat limited from patient due to confusion. Medical history significant for chronic diastolic heart failure (EF 60 to 65%, TTE 2022), nonocclusive CAD, valvular heart disease (severe /mild AR/TR), PSVT, paroxysmal atrial flutter status post Watchman procedure, history of PE, hypertension, urinary incontinence, history PE, chronic anemia (baseline hemoglobin 9 ), IBS, bullous pemphigoid, migraine, anxiety/mood disorder, chronic back pain/compression fractures, recurrent falls, past tobacco abuse. Last confinement August 2023 for mechanical fall. Patient fell at home today after tripping on a box subsequently striking her left elbow and left knee. Patient found by sister. Patient sustained bleeding lacerated wound left knee. Patient face may have hit walker as per brother. Patient denies LOC, chest pain, SOB. Congestion symptoms for few days as per patient. Not sure about sick contacts. Patient initially refused to be brought to ER but later relented. Left knee wound repaired at the ER by orthopedics. IV cefazolin administered at the ER. Medical History as above Surgical History : Knee surgery right, urologic procedures, appendectomy, Watchman procedure, hysteroscopy, endometrial ablation knee surgery Family History : Colon cancer, DM, heart disease, stroke Personal/Social history : Past tobacco abuse, no EtOH intake, retired [employer] employee, lives with sister Admission Exam Per Admitting Provider GENERAL: Disoriented, slightly uncomfortable, morbidly obese, no respiratory distress SKIN: Pallor, warm HEENT: Dried blood noted over nasal bridge and teeth, pale palpebral conjunctivae, no ptosis, dry buccal mucosa NECK : Supple, short neck, no tenderness CHEST : Decreased breath sounds, scattered expiratory wheezes, no tenderness HEART : RRR, systolic murmur ABDOMEN: Some distention, nontender EXTREMITIES : Dressing LLE, tender left knee, no other conspicuous deformities noted NEUROLOGIC : Disoriented, no facial asymmetry, gait and stance not assessed Principal Diagnosis Mechanical fall Traumatic left knee wound History of recurrent falls/ambulatory dysfunction Discharge Exam GENERAL: Alert awake, NAD, morbidly obese, no respiratory distress CHEST : Decreased breath sounds, scattered expiratory wheezes, no tenderness HEART : RRR, systolic murmur ABDOMEN: Some distention, nontender EXTREMITIES : Dressing LLE, Immobilizer x left knee, no other conspicuous deformities noted NEUROLOGIC : AOX 3 no facial asymmetry, grossly moves all extremities Discharge Data Allergies Allergy/AdvReac Type Severity Reaction Status Date / Time egg AdvReac Intermediate GI upset Verified 09/14/23 12:47 ibuprofen AdvReac Intermediate stomach Verified 09/14/23 12:47 irritation morphine AdvReac Intermediate LEGS SWELL Verified 09/14/23 12:47 Consultations 10/27/23 19:26 ED Decision to Admit Stat Ordered Studies 10/27/23 16:59 CT head/brain wo con Stat 10/27/23 17:26 CT cervical spine wo con Stat Hospital Course (1) Encephalopathy: Plan 68-year-old lady with PMH of chronic diastolic heart failure [EF 60 to 65%, TTE 2022], nonocclusive CAD, severe , PSVT, paroxysmal atrial flutter status post Watchman procedure, PE, HTN, urinary incontinence, chronic anemia [baseline hemoglobin around 9], IBS, bullous pemphigoid, migraine, anxiety/mood disorder, chronic back pain/compression fracture, recurrent falls, past tobacco abuse presented to the ED 10/26 after tripping on a box subsequently striking her left elbow and left knee. Patient was found by sister. Patient sustained bleeding lacerated wound left knee. Patient denied loss of consciousness or chest pain or shortness of breath. She was managed for following during the hospitalization Mechanical fall Traumatic left knee wound History of recurrent falls/ambulatory dysfunction Admitting CT head/left elbow x-ray/C-spine CT: No acute fracture noted. Admitting left knee x-ray: Concern for avulsion fracture along the inferior aspect of patella. No additional findings suspicious for acute fracture. Large anterior soft tissue injury with associated edema. Orthopedics evaluated: Left knee wound repair 10/26. Recommends left knee immobilizer, no knee range of motion for next 2 weeks, weight-bear as tolerated in LLE With knee immobilizer. Total antibiotics for 5 days. y Follow-up with orthopedics upon discharge in about 2 weeks. Hold aspirin given bleeding left knee wound. To be resumed at outpatient. Placed on heparin for DVT prophylaxis Acute kidney injury over CKD stage III: Infection due to COVID-19 virus Metabolic encephalopathy: Likely secondary to COVID-19 virus infection and acute kidney injury. Home narcotics/neuropsychotropic medications contributory; hold them for now until mentation back to baseline. Creatinine downtrended to baseline. Mentation also at baseline at discharge. Patient discharged to [facility]. Please note the above document was generated using voice recognition software. It may contain grammatical, syntax or spelling errors. Any formal questions or concerns about the content, text or information contained within the body of this dictation should be directly addressed to the provider for clarification Total Time Total Time Spent Total Time Spent (In Minutes): 35 Total Time Includes: Examination of the Patient, Discharge Planning, Medication Reconciliation, Communication With Other Providers and Other Discharge Plan Discharge Items Patient Disposition: Transfer [facility] Fac Reason For Visit: ARF, ENCEPHALOPATHY Discharge Diagnosis: Mechanical fall Traumatic left knee wound History of recurrent falls/ambulatory dysfunction Activity: Resume your previous activity Non-emergency contact: Primary Care Provider Call non-emergency contact if: you have any medication questions and your symptoms worsen Follow-up/Referrals: Nikunj Plascencia MD [Primary Care Provider] - Diet: Regular Addtl Attending Provider Instructions: Keep in the knee immobilizer with no knee range of motion for the next 2 weeks at a minimum. She can fully weight-bear as tolerated in the knee immobilizer. No knee range of motion. She can fully weight-bear as tolerated in the knee immobilizer. Any orthopedic questions can direct at [phone]. Take Iron tablet once a day. Take Miralax for possible constipation. DVT prophylaxis for 21 days with heparin sc. Pending Studies at Discharge: No Stand-Alone Forms: My [facility] Skilled Items Patient informed of condition?: No DNR: Yes Discharge Level of Care: Skilled Communicable Disease: No Discharge Prognosis: Stable Lines: None Urinary Catheter: No Medications and DC Order Prescriptions: New heparin, porcine (PF) 5,000 unit/0.5 mL Syringe 5,000 unit subcut Q12 21 Days Qty: 21 0RF ferrous sulfate [Iron (ferrous sulfate)] 325 mg (65 mg iron) tablet 325 mg PO DAILY Qty: 30 0RF Continued Dupixent Pen 300 mg/2 mL pen injector 300 mg SUBCUT Q14D Rx Instructions: q 2 weeks atorvastatin 80 mg tablet 80 mg PO QPM Qty: 30 0RF polyethylene glycol 3350 [Miralax] 17 gram Powder In Packet 17 g PO DAILY PRN (Reason: constipation) Qty: 30 0RF doxepin 25 mg capsule 25 mg PO HS Qty: 30 0RF sumatriptan succinate 25 mg tablet 25 mg PO DIRECTED MDD 5 TABS/24 HOURS PRN (Reason: Migraine Headache) Qty: 30 0RF Rx Instructions: TAKE 50 MG AT ONSET OF SUE, THEN MAY REPEAT WITH 25 MG EVERY 2 HOURS NEEDED. MAX 5 TABS IN 24 HOURS. miconazole nitrate [Desenex] 2 % powder 1 applic topical BID Qty: 85 0RF cyanocobalamin (vitamin B-12) [Vitamin B-12] 1,000 mcg Tablet 1,000 mcg PO QAM Qty: 30 0RF tamsulosin 0.4 mg capsule 0.4 mg PO QAM Qty: 30 0RF ascorbic acid (vitamin C) 250 mg Tablet 250 mg PO QAM Qty: 30 0RF calcipotriene 0.005 % cream 1 applic TOPICAL DAILY PRN (Reason: flare up) Qty: 60 0RF buspirone 10 mg tablet 10 mg PO BID Qty: 60 0RF docusate sodium [Colace] 100 mg capsule 100 mg PO BID Qty: 60 0RF oxybutynin chloride 5 mg tablet extended release 24hr 5 mg PO QPM Qty: 30 0RF metoprolol succinate 25 mg Tablet Extended Release 24 Hr 12.5 mg PO BID Qty: 30 0RF Rx Instructions: hold for systolic BP<100,Heartbeat <60 betamethasone dipropionate 0.05 % Ointment 1 applic TOPICAL BID PRN (Reason: RASH FACE/TRUNK/ARMS) Qty: 15 0RF clotrimazole 1 % Cream 1 applic TOPICAL BID PRN (Reason: Itching) Qty: 45 0RF folic acid 800 mcg Tablet 0.8 mg PO QAM Qty: 30 0RF oxycodone 5 mg tablet 5 mg PO Q6H PRN (Reason: pain level 6-10 on a 1-10 scale) Qty: 5 0RF Saline Mist 0.65 % aerosol,spray 2 spray NA Q6H Qty: 44 0RF memantine 10 mg tablet 10 mg PO BID Qty: 60 0RF duloxetine [Cymbalta] 60 mg capsule,delayed release(DR/EC) 120 mg PO QAM Qty: 60 0RF pregabalin 100 mg capsule 100 mg PO TID Qty: 90 0RF cholecalciferol (vitamin D3) [Vitamin D3] 1,000 unit Tablet 1,000 unit PO QAM Qty: 30 0RF [place] 3-6-9 1,200 mg Capsule 1 cap PO QAM Qty: 30 0RF Rx Instructions: FORMULA HAS GREEN TEA Changed tacrolimus 0.1 % Ointment 1 applic TOPICAL BID PRN (Reason: itching) Qty: 30 0RF Held aspirin 81 mg Tablet,Delayed Release (Dr/Ec) 81 mg PO QAM Hold Instructions: Resume on 11/09/23. lisinopril 10 mg tablet 10 mg PO QAM Hold Instructions: Resume on 11/13/23. Discontinued diphenhydramine HCl [Benadryl] 25 mg Capsule 25 mg PO QAM Discharge Orders: Discharge Order (Routine); Ordered 11/03/23 Ordered By: Balbir Yost Admission Data Admit Date/Time: 10/29/23 14:53 Attending Provider: Balbir Yost Admit Provider: Mark Nguyen Primary Care Provider: Nikunj Plascencia Other Providers: Mark Nguyen; [facility]; [facility]
[2023-11-03 15:27] VITALS: BP 113/74; PULSE 75
== END 2023-11-03 16:50 | DRG 177 ==
LOC: EDINP 15:35 → ED 15:35 → 2N 20:15 → 2W 10-28 01:12 → SUATTDRO 10-29 14:53

== ENCOUNTER 2024-06-19 14:08 | Inpatient (IN) ==
--- NOTE | 2024-06-19 14:27 | Emergency Department Note ---
Impression & Plan Stroke-like symptoms, Thrombolytic medication administered within last 5 days, Chronic back pain, Hypertension ED Provider Note NAME: BREANN PENA AGE: 69 SEX: F : 1955 ARRIVES VIA: Ambulance INFORMANT: Patient ED PROVIDER(S): Otoniel Farmer MD CHIEF COMPLAINT: Strokelike symptoms. 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 She denies any pain in the hip. She reports also feeling as if her arm was weaker. She reports when she arrived to her appointment around 1240 she did not have the symptoms. Given the patient experience symptoms after arriving and then going to the bathroom last known well is estimated to be 1245. Stroke alert was activated. On my evaluation the patient is no acute distress, afebrile with stable vital signs. She exhibits 4/5 strength of the left lower extremity and otherwise 5/5 strength in the bilateral upper and right lower extremity. Given the acute onset of the patient's neurologic symptoms stroke alert was activated. EKG without overt acute ischemia. CXR with nonspecific interstitial thickening per my personal preliminary review/interpretation. WBC within normal limits. H/H similar to prior range of values. Platelets within normal limits. Chemistry without metabolic acidosis. Electrolytes and LFTs unremarkable. High-sensitivity troponin 15.0, nonspecific. CT of the head and CTA of the head and neck were performed and were negative for ICH, ischemia or severe narrowing occlusion of large vessels. Description of dilation of bilateral superior ophthalmic veins has progressed from 2022 where nonemergent follow-up with ophthalmology as recommended to exclude low-flow carotid-cavernous fistula however considered unlikely at this time given no visual symptoms. Case was discussed with Dr. Smith, [facility] [place], who evaluated the patient via telestroke terminal. Upon their assessment the patient reported subjective weakness in her upper extremity as well as well as numbness and tingling. NIH score was 4 per telestroke evaluation. He did review the risks and benefits of TNK given the patient was within the TNK window and did not demonstrate any absolute contraindications. Patient did agree with and consent for TNK administration. TNK was administered. Of note, during the patient's observation and subsequently she began to complain of increasing left flank pain which she reports has been chronic for her. She understands that she has a history of kidney stones and wonders could be related to this. She reports that she previously had been on oxycodone chronically for back pain but was transition to gabapentin couple of years ago. Additionally during her observation the patient reported a dull headache. Thus, patient was taken back to CT for CT imaging of her head at which point CT abdomen pelvis also completed. Unfortunately, patient also became anxious regarding her back pain and had an increase in her blood pressure and had minor left nare anterior epistaxis while in CT, which resulted in motion artifact where hemorrhage could not be completely excluded though less likely. The patient's epistaxis resolved initially without intervention as the patient declined nasal clamp. This did recur a second time briefly and resolved spontaneously. On my reassessment the patient had fragile clot of the left nare without any active epistaxis. This was treated with intranasal Afrin with good effect and no recurrence of epistaxis. The patient was additionally treated for back pain with IV fentanyl and was more comfortable and blood pressure had improved. Patient was then sent back to CT to reassess findings of artifact versus hemorrhage. Prior findings were no longer present and so previous CT findings consistent with artifact. [facility] hospitalist service, Dr. Nguyen, was updated and will evaluate the patient for admission for further management. Case was also discussed with Ajit Malone ICU BUYING AGENT with Dr. Bishop ICU blocklayer. Further management per admitting team and ICU. Triage Nursing notes reviewed and agree them. Prior/external medical records reviewed Vital Signs: reviewed Differential diagnosis: Infection, dehydration, metabolic abnormality, hypo/hyperglycemia, electrolyte disturbance, anemia, hypoxia, cardiac sources, intracerebral event, toxicologic, neurologic, as well as other pathologies. ER treatment provided: See below. Diagnostics interpreted by me: ECG: None Cardiac Monitoring: An order for continuous cardiac monitoring was placed and demonstrated Laboratory studies: See below Imaging studies: See below Consultation(s): Dr. Smith, [facility] [place]. [facility] BUYING AGENT with Dr. Scott ICU blocklayer. HPI: Per MDM. ROS: See above HPI for pertinent positives & negatives. A total of 10 systems reviewed and were otherwise negative. VITALS:See Below PHYSICAL EXAMINATION: GENERAL: Awake, alert, in no distress, BMI 54.6. HENT: Normocephalic, atraumatic. Oropharynx unremarkable. EYES: Normal conjunctiva. Sclera non-icteric. EOMI. No nystamgus. PEARRL. NECK: Supple. No nuchal rigidity. FROM. No JVD. RESPIRATORY: Clear to auscultation. CARDIAC: Regular rate, normal rhythm. Extremities warm and well perfused. Pulses equal. ABDOMEN: Soft, non-distended. No tenderness to palpation. No rebound or guarding. No masses. MUSCULOSKELETAL: Chest examination reveals no tenderness. The back is symmetrical on inspection without obvious abnormality. There is no CVA tenderness to palpation. No joint edema. LOWER EXTREMITIES: Calves are equal size bilaterally and non-tender. Chronic 1+ BLE edema. No discoloration. NEURO: Cranial nerves II-XII grossly intact. 4/5 strength of the left lower extremity and SILT. 5/5 strength and SILT of BUE and RLE. Cerebellar function intact including [id number], alternating palms, [id number]. SKIN: No rash or jaundice noted. ED COURSE: Critical Care: I have personally spent greater than 65 minutes of critical care time in the direct management of this patient. This includes bedside care, interpretation of diagnostic studies, and testing, discussion with consultants, patient, and family members, and other required patient management activities. This 65 minutes is in excess of all separately billable procedures. Otoniel Farmer MD Past Med/Surg History Problem List (Updated 06/20/24 @ 14:21 by Otoniel Farmer MD) Hypertension (Acute) Chronic back pain (Acute) Thrombolytic medication administered within last 5 days (Acute) Stroke-like symptoms (Acute) Left leg weakness (Acute) Skin tear of left upper extremity (Acute) Chronic venous insufficiency (Chronic) Edema of left lower extremity Traumatic open wound of left lower leg with delayed healing (Acute) Leg wound, left (Acute) Obtunded (Acute) Acute confusion (Acute) Deep laceration of knee (Acute) Fracture, patella (Acute) Encephalopathy Leg laceration Left knee injury Acute kidney injury superimposed on CKD (Acute) Back pain (Acute) Fall (Acute) Right hip pain Hyperkalemia Orthostatic hypotension Hypotension Ambulatory dysfunction (Acute) Metatarsal bone fracture (Acute) Closed fibular fracture (Acute) Fall Presence of Watchman left atrial appendage closure device Paroxysmal atrial fibrillation Bullous pemphigoid Chronic anemia Severe aortic stenosis Closed fracture of proximal end of right fibula Paroxysmal atrial fibrillation Moderate aortic stenosis Atypical chest pain Chest pain (Acute) Acute anterior epistaxis (Acute) Hiatal hernia Uncontrolled hypertension Obesity (Acute) Atrial flutter, paroxysmal Aortic stenosis Bicuspid aortic valve Chronic low back pain GERD (gastroesophageal reflux disease) Dyslipidemia Atrial flutter, paroxysmal Candidal intertrigo DVT prophylaxis Chest pain (Acute) Neurogenic claudication due to lumbar spinal stenosis Feeling of incomplete bladder emptying Anemia (Acute) Stage 3 chronic kidney disease (Acute) Anxiety and depression CAD (coronary artery disease) non-obstructive Hypertension (Acute) Medical History Skin tear of elbow without complication Nose septum perforation Chronic low back pain Sacroiliitis IBS (irritable bowel syndrome) Borderline diabetes mellitus A-fib "i think i have a-fib." -- on eliquis -- follows with Dr. Torres History of TIA (transient ischemic attack) 2016 Cardiac murmur History of skin cancer History of COVID-19 02/2020; generalized weakness, diarrhea, sob, fever, body aches; hospitalized x 1 week; c/o ongoing brain fog since having covid Verbalizes suicidal thoughts COVID-19 Nocturia Acute urinary retention Back pain Renal failure Morbid obesity BMI 50.5 Carotid artery stenosis "mild" Aortic stenosis Mild (per cardiology review) aortic stenosis with possible bicuspid aortic valve (MG 19mmhg, NIKKIE 3.0) per 05/2018 ECHO Anemia Osteoporosis GERD (gastroesophageal reflux disease) controlled Chronic back pain High cholesterol Hx of falling last fall 09/2018- per patient, related to LBP/balance issues- ? r/t ambulatory dysfunction- improved with cane/walker use Surgical History History of right cataract extraction S/P epidural steroid injection History of appendectomy History of cardiac cath 2017= NO STENTS History of right knee joint replacement History of back surgery Hx of laparoscopy History of kyphoplasty Family History Father Stroke Slow to wake up after anesthesia Myocardial infarction, Onset Age: 40 Mother Stroke Myocardial infarction, Onset Age: 60 Sister Myocardial infarction, Onset Age: 60 Social History Smoking Status: Former smoker Tobacco Type: Cigarettes Cigarettes Per Day: quit 40 yrs ago; Second Hand Exposure: Yes; Hx Alcohol Use: No Hx Substance Use: No Preferred Language: Honduran Communication Ability: Effective Visual Impairment: No Limitations Hearing Ability: Normal Car Washer Required: No Beliefs That Will Affect Care: None marital status: Single Current Living Situation: Family Current Living Situation Comment: lives w/ sister Colleen current occupational status: unemployed and disabled Feels Safe at Home: Yes Safety Concerns: Feels Safe At This Time Diet: regular caffeine: Yes Assistive Devices: Glasses and Walker Allergies Allergies Allergy/AdvReac Type Severity Reaction Status Date / Time egg AdvReac Intermediate GI upset Verified 06/19/24 13:10 ibuprofen AdvReac Intermediate stomach Verified 06/19/24 13:10 irritation morphine AdvReac Intermediate LEGS SWELL Verified 06/19/24 13:10 Home Meds Home Medications Medication Instructions Recorded Confirmed aspirin 81 mg tablet,delayed 81 mg PO QAM 07/28/23 06/19/24 release dupilumab 300 mg/2 mL subcutaneous 300 mg subcut Q14D 09/14/23 06/19/24 pen injector ([facility]) lisinopril 10 mg tablet 10 mg PO QAM 09/14/23 06/19/24 Previous Rx's Medication Instructions Recorded ascorbic acid (vitamin C) 250 mg 250 mg PO QAM #30 tabs 11/03/23 tablet atorvastatin 80 mg tablet 80 mg PO QPM #30 tabs 11/03/23 betamethasone dipropionate 0.05 % 1 applic topical BID PRN RASH 11/03/23 topical ointment FACE/TRUNK/ARMS #15 grams buspirone 10 mg tablet 10 mg PO BID #60 tabs 11/03/23 calcipotriene 0.005 % topical cream 1 applic topical DAILY PRN flare 11/03/23 up #60 grams cholecalciferol (vitamin D3) 25 1,000 unit PO QAM #30 tabs 11/03/23 mcg (1,000 unit) tablet (Vitamin D3) clotrimazole 1 % topical cream 1 applic topical BID PRN Itching 11/03/23 #45 grams cyanocobalamin (vitamin B-12) 1,000 mcg PO QAM #30 tabs 11/03/23 1,000 mcg tablet (Vitamin B-12) docusate sodium 100 mg capsule 100 mg PO BID #60 caps 11/03/23 (Colace) doxepin 25 mg capsule 25 mg PO HS #30 caps 11/03/23 duloxetine 60 mg capsule,delayed 120 mg (2 x 60 mg) PO QAM #60 caps 11/03/23 release (Cymbalta) fish, borage, flaxseed oils-omega 1 cap PO QAM #30 caps 11/03/23 3,6,9 comb no.1 1,200 mg capsule ([place] 3-6-9) folic acid 800 mcg tablet 0.8 mg PO QAM #30 tabs 11/03/23 memantine 10 mg tablet 10 mg PO BID #60 tabs 11/03/23 metoprolol succinate 25 mg 12.5 mg (1/2 x 25 mg) PO BID #30 11/03/23 tablet,extended release 24 hr tabs miconazole nitrate 2 % topical 1 applic topical BID #85 grams 11/03/23 powder (Desenex) oxybutynin chloride 5 mg 5 mg PO QPM #30 tabs 11/03/23 tablet,extended release 24 hr oxycodone 5 mg tablet 5 mg PO Q6H PRN pain level 6-10 on 11/03/23 a 1-10 scale #5 tabs polyethylene glycol 3350 17 gram 17 g PO DAILY PRN constipation #30 11/03/23 oral powder packet (Miralax) ea sodium chloride 0.65 % nasal spray 2 spray NA Q6H #44 mL 11/03/23 aerosol (Saline Mist) sumatriptan succinate 25 mg tablet 25 mg PO DIRECTED PRN Migraine 11/03/23 Headache #30 tabs tacrolimus 0.1 % topical ointment 1 applic topical BID PRN itching 11/03/23 #30 grams tamsulosin 0.4 mg capsule 0.4 mg PO QAM #30 caps 11/03/23 furosemide 20 mg tablet (Lasix) 20 mg PO DAILY #3 tabs 02/20/24 Results & Data (ED) Vital Signs Vital Signs - 24 hr 06/19/24 14:25 06/19/24 14:50 06/19/24 14:54 Temperature 36.5 C Temperature Source Oral Pulse Rate 67 78 Pulse Rate [Apical] Respiratory Rate 18 20 Respiratory Effort / Characteristics Non-Labored Spontaneous Respiratory Depth Normal Respiratory Pattern Regular Blood Pressure 141/59 H 121/81 Blood Pressure [Right Arm] Blood Pressure Mean 86 93 Blood Pressure Mean [Right Arm] Blood Pressure Position Lying Pulse Oximetry 97 Oxygen Delivery Method Room Air Oxygen Flow Rate Sepsis Recent Fever Within 48 Hours No Sepsis New/Unexplained Change in Mental Status N/A Sepsis Action Taken by Nursing No Action Required Oxygen Flow Rate - Titration Pulse Oximetry Post Tiitration 06/19/24 15:00 06/19/24 15:00 06/19/24 15:55 Temperature Temperature Source Pulse Rate 75 Pulse Rate [Apical] 80 Respiratory Rate 14 20 Respiratory Effort / Characteristics Respiratory Depth Normal Respiratory Pattern Blood Pressure 136/76 Blood Pressure [Right Arm] 113/47 L Blood Pressure Mean 101 Blood Pressure Mean [Right Arm] 69 Blood Pressure Position Pulse Oximetry 98 Oxygen Delivery Method Room Air Oxygen Flow Rate Sepsis Recent Fever Within 48 Hours Sepsis New/Unexplained Change in Mental Status Sepsis Action Taken by Nursing Oxygen Flow Rate - Titration Pulse Oximetry Post Tiitration 06/19/24 16:04 06/19/24 16:10 06/19/24 16:25 Temperature Temperature Source Pulse Rate 75 Pulse Rate [Apical] 71 76 Respiratory Rate 20 20 Respiratory Effort / Characteristics Respiratory Depth Respiratory Pattern Blood Pressure Blood Pressure [Right Arm] 115/43 L 147/69 H Blood Pressure Mean Blood Pressure Mean [Right Arm] 67 95 Blood Pressure Position Pulse Oximetry 98 96 Oxygen Delivery Method Room Air Room Air Oxygen Flow Rate Sepsis Recent Fever Within 48 Hours Sepsis New/Unexplained Change in Mental Status Sepsis Action Taken by Nursing Oxygen Flow Rate - Titration Pulse Oximetry Post Tiitration 06/19/24 16:40 06/19/24 16:55 06/19/24 17:10 Temperature Temperature Source Pulse Rate Pulse Rate [Apical] 77 82 81 Respiratory Rate 20 20 20 Respiratory Effort / Characteristics Respiratory Depth Respiratory Pattern Blood Pressure Blood Pressure [Right Arm] 129/79 139/83 174/84 H Blood Pressure Mean Blood Pressure Mean [Right Arm] 95 101 114 Blood Pressure Position Pulse Oximetry 97 96 99 Oxygen Delivery Method Room Air Room Air Room Air Oxygen Flow Rate Sepsis Recent Fever Within 48 Hours Sepsis New/Unexplained Change in Mental Status Sepsis Action Taken by Nursing Oxygen Flow Rate - Titration Pulse Oximetry Post Tiitration 06/19/24 17:25 06/19/24 17:40 06/19/24 18:10 Temperature Temperature Source Pulse Rate Pulse Rate [Apical] 84 81 82 Respiratory Rate 20 20 20 Respiratory Effort / Characteristics Respiratory Depth Respiratory Pattern Blood Pressure Blood Pressure [Right Arm] 146/89 H 154/90 H 138/74 Blood Pressure Mean Blood Pressure Mean [Right Arm] 108 111 95 Blood Pressure Position Pulse Oximetry 95 96 94 Oxygen Delivery Method Room Air Room Air Room Air Oxygen Flow Rate Sepsis Recent Fever Within 48 Hours Sepsis New/Unexplained Change in Mental Status Sepsis Action Taken by Nursing Oxygen Flow Rate - Titration Pulse Oximetry Post Tiitration 06/19/24 18:22 06/19/24 18:40 06/19/24 19:10 Temperature Temperature Source Pulse Rate Pulse Rate [Apical] 73 68 Respiratory Rate 20 18 Respiratory Effort / Characteristics Respiratory Depth Respiratory Pattern Blood Pressure Blood Pressure [Right Arm] 149/73 H 127/62 Blood Pressure Mean Blood Pressure Mean [Right Arm] 98 83 Blood Pressure Position Pulse Oximetry 84 L 100 100 Oxygen Delivery Method Nasal Cannula Nasal Cannula Nasal Cannula Oxygen Flow Rate 0 2 2 Sepsis Recent Fever Within 48 Hours Sepsis New/Unexplained Change in Mental Status Sepsis Action Taken by Nursing Oxygen Flow Rate - Titration 2 Pulse Oximetry Post Tiitration 94 06/19/24 19:42 Temperature Temperature Source Pulse Rate Pulse Rate [Apical] 77 Respiratory Rate 18 Respiratory Effort / Characteristics Respiratory Depth Respiratory Pattern Blood Pressure Blood Pressure [Right Arm] 140/66 Blood Pressure Mean Blood Pressure Mean [Right Arm] 90 Blood Pressure Position Pulse Oximetry 100 Oxygen Delivery Method Oxymask Oxygen Flow Rate 4 Sepsis Recent Fever Within 48 Hours Sepsis New/Unexplained Change in Mental Status Sepsis Action Taken by Nursing Oxygen Flow Rate - Titration Pulse Oximetry Post Tiitration Laboratory Data Attestation: I reviewed the patient's lab results. 06/20/24 04:04 06/20/24 04:04 Lab Results 06/19/24 06/19/24 06/19/24 Range/Units 14:27 14:28 15:05 WBC 6.23 (4.8-10.8) K/ul RBC 3.29 L (4.20-5.40) M/uL Hgb 8.9 L (12.0-16.0) g/dl Hct 29.9 L (37.0-47.0) % MCV 90.9 (80.0-100.0) fL MCH 27.1 (25.0-34.0) pg MCHC 29.8 L (32.0-36.0) g/dL RDW Std Deviation 53.3 H (36.4-46.3) fL RDW Coeff of Brandy 16.0 H (11.5-14.5) % Plt Count 149 (130-400) K/uL MPV 11.6 (9.4-12.4) fL Immature Gran % (Auto) 0.2 % Neut % (Auto) 51.3 % Lymph % (Auto) 28.9 % [place] % (Auto) 13.5 % Eos % (Auto) 5.3 % Baso % (Auto) 0.8 % Neut # (Auto) 3.20 (1.40-6.50) K/uL Lymph # (Auto) 1.80 (1.20-3.40) K/uL [place] # (Auto) 0.84 H (0.11-0.59) K/uL Eos # (Auto) 0.33 (0.00-0.50) K/uL Baso # (Auto) 0.05 (0.00-0.20) K/uL Immature Gran # (Auto) 0.01 (0.01-0.20) K/uL PT Cancelled INR Cancelled APTT Cancelled PTT Ratio Cancelled Sodium 141 (136-145) mmol/L Potassium 4.4 (3.5-5.1) mmol/L Chloride 108 H (98-107) mmol/L Carbon Dioxide 30 (21-32) mmol/L Anion Gap 3 (3-11) BUN 30 H (6-23) mg/dl Creatinine 1.15 (0.6-1.2) mg/dl Est Cr Clr Drug Dosing 70.2 ml/min eGFR 52.21 BUN/Creatinine Ratio 26.1 H (10-20) Glucose 90 (70-99(Fasting)) mg/dl POC Glucose 81 (70-99) mg/dl Calcium 9.4 (8.6-10.3) mg/dl Magnesium 1.8 (1.7-2.4) mg/dl Total Bilirubin 0.4 (0.2-1.0) mg/dl AST 17 (13-39) U/L ALT 11 (7-52) U/L Alkaline Phosphatase 103 (34-104) U/L Troponin I High Sens 15.0 H (0-14) pg/ml Total Protein 6.8 (6.0-8.3) gm/dl Albumin 3.7 (3.4-5.0) gm/dl Globulin 3.1 (2.5-4.0) gm/dl Albumin/Globulin Ratio 1.2 (0.9-2) Administered Medications Atorvastatin Calcium (Atorvastatin 40 Mg Tab) 80 mg PO QPM PEGGY Stop: 07/19/24 20:59 Last Admin: 06/19/24 20:59 Dose: 80 mg Documented By: CIRO Buspirone HCl (Buspirone 5 Mg Tab) 10 mg PO BID PEGGY Stop: 07/19/24 20:59 Last Admin: 06/20/24 08:20 Dose: 10 mg Documented By: Admin: 06/19/24 20:58 Dose: 10 mg Documented By: CIRO Cyanocobalamin (Cyanocobalamin (B-12) 500 Mcg Tablet) 1,000 mcg PO QAM PEGGY Stop: 07/20/24 08:59 Last Admin: 06/20/24 08:20 Dose: 1,000 mcg Documented By: RODOLFO Docusate Sodium (Docusate Sodium 100 Mg Cap) 100 mg PO BID PEGGY Stop: 07/19/24 20:59 Last Admin: 06/20/24 08:22 Dose: 100 mg Documented By: Admin: 06/19/24 21:06 Dose: 100 mg Documented By: CIRO Doxepin HCl (Doxepin Hcl 25 Mg Capsule) 25 mg PO HS PEGGY Stop: 07/19/24 20:59 Last Admin: 06/19/24 20:57 Dose: 25 mg Documented By: CIRO Duloxetine HCl (Duloxetine Hcl 60 Mg Cap) 120 mg PO QAM PEGGY Stop: 07/20/24 08:59 Last Admin: 06/20/24 08:19 Dose: 120 mg Documented By: RODOLFO Folic Acid (Folic Acid 400 Mcg Tab) 800 mcg PO QAM PEGGY Stop: 07/20/24 08:59 Last Admin: 06/20/24 08:20 Dose: 800 mcg Documented By: RODOLFO Furosemide (Furosemide 20 Mg Tab) 20 mg PO DAILY PEGGY Stop: 07/20/24 10:59 Last Admin: 06/20/24 10:56 Dose: 20 mg Documented By: RODOLFO Lorazepam (Lorazepam 0.5 Mg Tab) 0.5 mg PO TID PRN PRN Reason: Anxiety Stop: 07/19/24 20:24 Last Admin: 06/19/24 22:50 Dose: 0.5 mg Documented By: CIRO Memantine (Memantine Hcl 10 Mg Tab) 10 mg PO BID PEGGY Stop: 07/19/24 20:59 Last Admin: 06/20/24 08:20 Dose: 10 mg Documented By: Admin: 06/19/24 20:58 Dose: 10 mg Documented By: CIRO Metoprolol Succinate (Metoprolol Succ 25mg Ext Rel Tab) 12.5 mg PO BID PEGGY Stop: 07/20/24 08:59 Last Admin: 06/20/24 08:20 Dose: 12.5 mg Documented By: RODOLFO Miscellaneous (Icu Protocol For Hyperglycemia) 1 each N/A ACHS PEGGY Stop: 06/21/24 20:59 Last Admin: 06/19/24 22:41 Dose: 1 each Documented By: CIRO Oxybutynin Chloride (Oxybutynin Chloride Xl 5 Mg Tabcr) 5 mg PO QPM PEGGY Stop: 07/19/24 20:59 Last Admin: 06/19/24 20:58 Dose: 5 mg Documented By: CIRO Oxycodone HCl (Oxycodone Hcl Ir 5 Mg Tab (Immediate Release)) 5 - 10 mg PO QID PRN PRN Reason: Pain Stop: 07/03/24 20:24 Last Admin: 06/20/24 04:05 Dose: 10 mg Documented By: Admin: 06/19/24 21:40 Dose: 10 mg Documented By: CIRO Pantoprazole Sodium (Pantoprazole 40 Mg Tab) 40 mg PO QAM PEGGY Stop: 07/20/24 08:59 Last Admin: 06/20/24 10:50 Dose: 40 mg Documented By: RODOLFO Tamsulosin HCl (Tamsulosin Hcl 0.4 Mg Cap) 0.4 mg PO QAM PEGGY Stop: 07/20/24 08:59 Last Admin: 06/20/24 08:20 Dose: 0.4 mg Documented By: RODOLFO Vitamin D (Cholecalciferol 25 Mcg (1000 Units) Tab) 25 mcg PO QAM PEGGY Stop: 07/20/24 08:59 Last Admin: 06/20/24 08:20 Dose: 25 mcg Documented By: RODOLFO Discontinued Medications Fentanyl Citrate (Fentanyl Citrate Pf 100 Mcg/2 Ml Vial) 50 mcg IV NOW STA Stop: 06/19/24 17:40 Last Admin: 06/19/24 17:44 Dose: 50 mcg Documented By: RODY Fentanyl Citrate (Fentanyl Citrate Pf 100 Mcg/2 Ml Vial) 50 mcg IV NOW STA Stop: 06/19/24 18:05 Last Admin: 06/19/24 18:08 Dose: 50 mcg Documented By: CONNOR Furosemide (Furosemide Inj 20 Mg/2 Ml Vial) 20 mg IV ONE ONE Stop: 06/19/24 20:46 Last Admin: 06/19/24 21:06 Dose: 20 mg Documented By: CIRO Sodium Chloride (Nss) 1,000 mls @ 999 mls/hr IV .Q1H1M ONE Stop: 06/19/24 15:24 Last Infusion: 06/19/24 16:21 Dose: Infused Documented By: Admin: 06/19/24 15:20 Dose: 999 mls/hr Documented By: CONNOR Tenecteplase 25 mg/ Syringe 5 mls @ 60 mls/min IV NOW ONE; Protocol Stop: 06/19/24 15:39 Last Admin: 06/19/24 15:40 Dose: 60 mls/min Documented By: CONNOR Co-signed By: RODY Acetaminophen (Ofirmev) 1,000 mg in 100 mls @ 400 mls/hr IV NOW STA Stop: 06/19/24 15:49 Last Infusion: 06/19/24 16:18 Dose: Infused Documented By: Admin: 06/19/24 16:03 Dose: 400 mls/hr Documented By: CONNOR Promethazine HCl (Phenergan) 12.5 mg in 50.5 mls @ 202 mls/hr IV NOW STA Stop: 06/19/24 20:49 Last Admin: 06/19/24 21:05 Dose: Not Given Documented By: CIRO Magnesium Sulfate/Dextrose (Magnesium Sulfate / D5w) 1 gm in 100 mls @ 50 mls/hr IV Q2H PEGGY Stop: 06/20/24 12:44 Last Admin: 06/20/24 10:44 Dose: 50 mls/hr Documented By: Infusion: 06/20/24 10:44 Dose: Infused Documented By: Admin: 06/20/24 08:50 Dose: 50 mls/hr Documented By: RODOLFO Ioversol (Optiray 320 125ml) 118 ml IV ONCE ONE Stop: 06/19/24 14:54 Last Admin: 06/19/24 14:53 Dose: 118 ml Documented By: SCOTTIE Lidocaine (Lidocaine 5% 1 Patch) 1 patch TD NOW STA Stop: 06/19/24 15:52 Last Admin: 06/19/24 16:04 Dose: 1 patch Documented By: CONNOR Lorazepam (Lorazepam 2 Mg/1 Ml Vial) 0.5 mg IV NOW STA Stop: 06/19/24 17:23 Last Admin: 06/19/24 17:29 Dose: 0.5 mg Documented By: CONNOR Miscellaneous (Stat Iv/Im) 1 each N/A NOW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
[2024-06-19 14:41] LABS: Basophils # (auto) 0.05 K/uL (0.00-0.20); Basophils % (auto) 0.8 %; Eosinophils # (auto) 0.33 K/uL (0.00-0.50); Eosinophils % (auto) 5.3 %; Hematocrit (blood only) 29.9 % (37.0-47.0); Hemoglobin 8.9 g/dl (12.0-16.0); Immature Granulocytes # (auto) 0.01 K/uL (0.01-0.20); Immature Granulocytes % (auto) 0.2 %; Lymphocytes % (auto) 28.9 %; Mean Corpuscular Hemoglobin 27.1 pg (25.0-34.0); Mean Corpuscular Hgb Conc 29.8 g/dL (32.0-36.0); Mean Corpuscular Volume 90.9 fL (80.0-100.0); Mean Platelet Volume 11.6 fL (9.4-12.4); Monocytes # (auto) 0.84 K/uL (0.11-0.59); Monocytes % (auto) 13.5 %; Neutrophils % (auto) 51.3 %; Platelet Count 149 K/uL (130-400); RDW Standard Deviation 53.3 fL (36.4-46.3); Red Blood Count 3.29 M/uL (4.20-5.40); White Blood Count 6.23 K/ul (4.8-10.8)
[2024-06-19] MEDS: OPTIRAY 320 125ml IV ONE (14:53)
[2024-06-19 14:58] LABS: Albumin Globulin Ratio 1.2 (0.9-2); Albumin Level 3.7 gm/dl (3.4-5.0); BUN Creatinine Ratio 26.1 (10-20); Bilirubin,Total 0.4 mg/dl (0.2-1.0); Calcium 9.4 mg/dl (8.6-10.3); Creatinine Clr Calc Pharmacy 70.2 ml/min; Globulin 3.1 gm/dl (2.5-4.0); Magnesium 1.8 mg/dl (1.7-2.4); Potassium 4.4 mmol/L (3.5-5.1); Total Protein 6.8 gm/dl (6.0-8.3)
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
--- NOTE | 2024-06-19 15:18 | CT Scan Report ---
CT ANGIOGRAPHY OF THE NECK WITH CONTRAST CLINICAL HISTORY: neuro deficit, acute stroke suspected COMPARISON STUDY: CTA of the neck May 13, 2022. Technique: CT angiography of the carotid and vertebral arteries was obtained using Optiray and 3D rec onstruction on an independent workstation. NASCET criteria was utilized. Automated exposure control was utilized for the study. A dose lowering technique was utilized adhering to the principles of ALA RA. CT DOSE: 2282.97 mGy.cm Findings: Incidental note is made of ground glass opacities within visualized portions of the lung ap ices. A prominent prevascular lymph node on image 16 of 353 measures 1.8 x 1 cm. A right paratracheal lymph node on image 34 measures 1.5 x 1.4 cm. There is no cervical spine fracture. This exam is mild ly compromised by artifact. The bilateral common carotid, cervical internal carotid and vertebral art eries are patent. There is moderate plaque within the carotid bifurcations without stenosis. There is no aneurysm or dissection within the neck. IMPRESSION: 1. Moderate atherosclerotic plaque within the carotid bifurcations without stenosis. 2. No aneurysm or dissection within the neck. 3. Groundglass opacities within the visualized lung apices. The findings may represent an infectious process or pulmonary edema. 4. Prominent prevascular and right paratracheal lymph nodes which are likely reactive. A chest CT in 3 months to ensure resolution is recommended. ACT 112: Negative or not required by law. Electronically signed by: Ovidio Dunn M.D. 06/19/2024 3:17 PM
[2024-06-19] MEDS: SODIUM CHLORIDE 0.9% 1,000 ML IV ONE (15:20)
[2024-06-19] MEDS ORDERED: No Aspirin within 24hrs of THROMBOLYTIC-Stroke PO SCH (15:30)
[2024-06-19] MEDS: TENECTEPLASE 25 MG in SYRINGE 0 ML IV ONE (15:40)
[2024-06-19] MEDS: STAT IV/IM STA (15:45)
[2024-06-19] MEDS: SODIUM CHLORIDE 0.9% 10ML FLUSH IV STA (15:45)
--- NOTE | 2024-06-19 15:50 | XRay Report ---
XR chest 1V portable CLINICAL HISTORY: neuro deficit, acute stroke suspected COMPARISON STUDY: Chest CT September 14, 2023. Chest radiograph February 20, 2024. FINDINGS: This exam is compromised by suboptimal penetration. Lung volumes are normal. Patient is rot ated. The heart is moderately enlarged. Interstitial thickening is present. No consolidation is ident ified. There is no pneumothorax or pleural effusion. IMPRESSION: Cardiomegaly with interstitial thickening suggestive of pulmonary edema. Radiographic fol low-up to ensure resolution is recommended. ACT 112: Negative or not required by law. Electronically signed by: Ovidio Dunn M.D. 06/19/2024 3:49 PM
[2024-06-19] MEDS: ACETAMINOPHEN 1,000 MG/100 ML VIAL IV STA (16:03)
[2024-06-19] MEDS: LIDOCAINE 5% 1 PATCH TD STA (16:04)
[2024-06-19] MEDS: LORazepam 2 MG/1 ML VIAL IV STA (17:29)
[2024-06-19] MEDS: OXYMETAZOLINE 0.05% 30 ML BTL ONE (17:35)
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
[2024-06-19] MEDS: fentaNYL citrate PF 100 MCG/2 ML VIAL IV STA ×2 (17:44→18:08)
--- NOTE | 2024-06-19 18:07 | CT Scan Report ---
EXAM: CT abd pelvis wo con CLINICAL HISTORY: Left abd/hip pain. TECHNIQUE: Non-contrast CT of the abdomen and pelvis was performed, with the following protocol: axial images, and reconstructed coronal and sagittal images. No intravenous contrast was administered. One of the following dose reduction techniques was utilized for this exam: Automated exposure control, adjustment of the mA and/or kV according to patient size, and use of iterative reconstruction. COMPARISON: 09/14/2023 FINDINGS: Abdomen: Liver: Normal in size, shape, and density. No focal lesions, cysts, or masses were identified. Gallbladder and Biliary System: The gallbladder is normal in size and shape. No wall thickening, pericholecystic fluid, or gallstones were identified. Pancreas: Pancreatic head, body, and tail are visualized and appear normal in size and density. No pancreatic masses or calcifications were noted. Spleen: Normal in size, shape, and density. No splenic lesions or masses were identified. Kidneys and Adrenal Glands: Both kidneys are normal in size, shape, and position. Cortical thickness is within normal limits. No renal calculi or hydronephrosis. Opacified pelvicalyceal systems by contrast ( excretory phase of previous IV contrast ) Right adrenal gland ovoid shaped soft tissue nodule measuring 15 x 17 mm along maximum transverse diameters . left Adrenal gland is unremarkable. Appendix: The appendix is not visualized with a linear dense suture at the base of cecum likely sequela of previous surgery Pelvis: Urinary Bladder: Normal in contour and wall thickness. No intraluminal lesions ( distended by contrast ) . Uterus: Normal in size and contour. No masses or abnormal thickening. Ovaries: Not well visualized but no gross abnormalities noted. Peritoneal and Retroperitoneal Structures: No free fluid or abnormal fluid collections were identified within the abdomen or pelvis. No lymphadenopathy was noted. Tiny calcific structure is seen just deep to the anterior abdominal wall along the posterior wall of the right rectus sheath at the level of the umbilicus. calcific lymph node Bowel: Multiple tiny diverticular outpouchings are seen within the sigmoid colon and to a lesser extent the descending colon with clear adjacent pericolic fat planes. No evidence of bowel obstruction or wall thickening. Anterior abdominal wall small paraumblical hernia with fat content through a small defect measuring 18 mm. Bones and Soft Tissues: Spondylotic changes of the lumbar spine with wedge compression fracture of L4 vertebral body as well as L4-L5 grade I degenerative spondylolisthesis Bilateral Hip point osteoarthritic changes Diffuse edema of the left anterolateral abdominal wall at left iliac fossa and left lumbar region Diffuse aortic calcific atheromatous changes The lower chest cuts revealed bilateral basal thin atelectatic plates with interstitial septal thickening IMPRESSION: 1. Non-complicated diverticular disease of the sigmoid colon. 2. Right adrenal nodule measuring 15 x 17mm, for further evaluation. 3. Anterior abdominal wall small paraumbilical hernia with fat content. 4. Diffuse edema of the left anterolateral abdominal wall. 5. Spondylotic changes of the lumbar spine with wedge compression fracture of L4 vertebral body as well as L4-L5 grade I degenerative spondylolisthesis. 6. Bilateral hip joint osteoarthritic changes. 7. No significant change from the prior. Electronically signed by Donald Alberts 06-19-2024 6:07 PM
--- NOTE | 2024-06-19 19:31 | CT Scan Report ---
EXAM: CT head/brain wo con CLINICAL HISTORY: headache s/p TNK, re-eval Bleed vs artifact. TECHNIQUE: Axial non-contrast CT scan of the brain was performed from the skull base to the high parietal region. One of the following dose reduction techniques was utilized for this exam: Automated exposure control, adjustment of the mA and/or kV according to patient size, and use of iterative reconstruction. COMPARISON: Prior 06/19/2024 15:22:41 [employer]YING FINDINGS: Brain Parenchyma: Previously noted, the extra-axial area of hyperdensity in the posterior cranial fossa, posterior to the petrous part of the temporal bone, is artifactual rather than being hemorrhage on comparison. No evidence of acute infarct, hemorrhage, or mass effect. No intracerebral hematoma or mass effect or territorial infarction There are a few tiny, ill-defined [id number] areas noted in the periventricular white matter bilaterally, suggestive of microvascular ischemic changes. The ventricular system, cortical sulci, and basal cisterns are prominent, consistent with senile changes. The rest of the visualized brain parenchyma shows a normal appearance. Nicholson-white matter differentiation is maintained. No midline shifts or deformity. Normal CT appearance of the posterior fossa structures, namely the cerebellar hemispheres, brainstem, and cerebellar peduncles The cerebello-pontine angles are clear. The osseous structures in the skull base are unremarkable. No definite calvarium fractures. The scanned paranasal sinuses are clear. IMPRESSION: Previously noted, the extra-axial area of hyperdensity in the posterior cranial fossa, posterior to the petrous part of the temporal bone, is artifactual rather than being hemorrhage on comparison. No acute abnormalities Microvascular ischemic changes and senile changes. Electronically signed by Donald Alberts 06-19-2024 7:31 PM
--- NOTE | 2024-06-19 19:42 | History & Physical Report ---
Date of Service June 19, 2024 Assessment & Plan (1) Left leg weakness: Plan: Left leg weakness Possible CVA Improved post TNK administration Transient hypoxemic respiratory failure secondary to subacute heart failure hx diastolic dysfunction hx valvular heart disease (severe /mild AR/TR) PSVT paroxysmal atrial flutter status post Watchman procedure history of PE hypertension, stable LILY as per records pulmonary hypertension CRI, creatinine better than baseline Chronic anemia, hemoglobin at baseline adrenal adenoma, known outpatient diagnosis bullous pemphigoid, stable on Dupixent chronic back pain/compression fractures recurrent falls chronic venous insufficiency past tobacco abuse Admit to ICU Neurochecks MRI brain, TTE for additional stroke workup Neurology consult Re: CVA IV Lasix 1 dose now, strict I/O's, daily weights, CHF education Outpatient adrenal adenoma 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 SCDs Re: epistaxis DNR as per patient's prior directives. Patient requests for sister to be given updates regarding care. Ms. Michaela Paulino, contact #[phone]. Attempted to contact patient's sister via phone. No answer, left message for call back. Text document was generated using Intervolve voice recognition software. It may contain grammatical or spelling errors. Kindly contact undersigned for clarification of any documentation item in question. History of Present Illness Chief Complaint: left leg weakness Primary Care Provider: Nikunj Plascencia MD History obtained from patient and records. Medical history significant for chronic diastolic heart failure (EF 55%, TTE 2024), nonocclusive CAD, valvular heart disease (severe /mild AR/TR), PSVT, paroxysmal atrial flutter status post Watchman procedure, history of PE, hypertension, LILY as per records, pulmonary hypertension, CRI (baseline creatinine 1.5-1.6), chronic anemia (baseline hemoglobin 8-9 ), adrenal adenoma as per records, IBS, bullous pemphigoid, migraine, anxiety/mood disorder, chronic back pain/compression fractures, recurrent falls, chronic venous insufficiency, urinary incontinence, past tobacco abuse. Last confinement October 2023 for traumatic left knee wound secondary to mechanical fall. Patient discharged to [facility] for rehab before going home. [facility] on follow-up visit for traumatic left lower leg open wound with delayed healing. Debridement done at the office. Patient complains of new onset left leg weakness and numbness while at the waiting room. Denies chest pain or cough symptoms. Usual SOB. Patient with worsening achy low back pain with radiation to left leg the last few weeks. No fever, no chills. Patient sent to ER for evaluation. Stroke alert called upon arrival at the ER. IV TNK administered following [facility] stroke specialist recommendations. Improved left leg weakness. Headache and epistaxis noted at the ER. Lowest O2 sats of 80s documented at the ER. Medical History as above Surgical History : Knee surgery right, urologic procedures, appendectomy, Watchman procedure, hysteroscopy, endometrial ablation knee surgery Family History : Colon cancer, DM, heart disease, stroke Personal/Social history : Past tobacco abuse, no EtOH intake, retired [employer] employee, lives with sister Allergies Allergy/AdvReac Type Severity Reaction Status Date / Time egg AdvReac Intermediate GI upset Verified 06/19/24 13:10 ibuprofen AdvReac Intermediate stomach Verified 06/19/24 13:10 irritation morphine AdvReac Intermediate LEGS SWELL Verified 06/19/24 13:10 Home Medications Medication Instructions Recorded Confirmed Type aspirin 81 mg tablet,delayed 81 mg PO QAM 07/28/23 06/19/24 History release dupilumab 300 mg/2 mL subcutaneous 300 mg subcut Q14D 09/14/23 06/19/24 History pen injector (Dupixent) lisinopril 10 mg tablet 10 mg PO QAM 09/14/23 06/19/24 History ascorbic acid (vitamin C) 250 mg 250 mg PO QAM #30 tabs 11/03/23 06/19/24 Rx tablet atorvastatin 80 mg tablet 80 mg PO QPM #30 tabs 11/03/23 06/19/24 Rx betamethasone dipropionate 0.05 % 1 applic topical BID PRN RASH 11/03/23 06/19/24 Rx topical ointment FACE/TRUNK/ARMS #15 grams buspirone 10 mg tablet 10 mg PO BID #60 tabs 11/03/23 06/19/24 Rx calcipotriene 0.005 % topical cream 1 applic topical DAILY PRN flare 11/03/23 06/19/24 Rx up #60 grams cholecalciferol (vitamin D3) 25 1,000 unit PO QAM #30 tabs 11/03/23 06/19/24 Rx mcg (1,000 unit) tablet (Vitamin D3) clotrimazole 1 % topical cream 1 applic topical BID PRN Itching 11/03/23 06/19/24 Rx #45 grams cyanocobalamin (vitamin B-12) 1,000 mcg PO QAM #30 tabs 11/03/23 06/19/24 Rx 1,000 mcg tablet (Vitamin B-12) docusate sodium 100 mg capsule 100 mg PO BID #60 caps 11/03/23 06/19/24 Rx (Colace) doxepin 25 mg capsule 25 mg PO HS #30 caps 11/03/23 06/19/24 Rx duloxetine 60 mg capsule,delayed 120 mg (2 x 60 mg) PO QAM #60 caps 11/03/23 06/19/24 Rx release (Cymbalta) fish, borage, flaxseed oils-omega 1 cap PO QAM #30 caps 11/03/23 06/19/24 Rx 3,6,9 comb no.1 1,200 mg capsule ([place] 3-6-9) folic acid 800 mcg tablet 0.8 mg PO QAM #30 tabs 11/03/23 06/19/24 Rx memantine 10 mg tablet 10 mg PO BID #60 tabs 11/03/23 06/19/24 Rx metoprolol succinate 25 mg 12.5 mg (1/2 x 25 mg) PO BID #30 11/03/23 06/19/24 Rx tablet,extended release 24 hr tabs miconazole nitrate 2 % topical 1 applic topical BID #85 grams 11/03/23 06/19/24 Rx powder (Desenex) oxybutynin chloride 5 mg 5 mg PO QPM #30 tabs 11/03/23 06/19/24 Rx tablet,extended release 24 hr oxycodone 5 mg tablet 5 mg PO Q6H PRN pain level 6-10 on 11/03/23 06/19/24 Rx a 1-10 scale #5 tabs polyethylene glycol 3350 17 gram 17 g PO DAILY PRN constipation #30 11/03/23 06/19/24 Rx oral powder packet (Miralax) ea sodium chloride 0.65 % nasal spray 2 spray NA Q6H #44 mL 11/03/23 06/19/24 Rx aerosol (Saline Mist) sumatriptan succinate 25 mg tablet 25 mg PO DIRECTED PRN Migraine 11/03/23 06/19/24 Rx Headache #30 tabs tacrolimus 0.1 % topical ointment 1 applic topical BID PRN itching 11/03/23 06/19/24 Rx #30 grams tamsulosin 0.4 mg capsule 0.4 mg PO QAM #30 caps 11/03/23 06/19/24 Rx furosemide 20 mg tablet (Lasix) 20 mg PO DAILY #3 tabs 02/20/24 06/19/24 Rx Past Med/Surg History Problem List Chronic back pain (Acute) Thrombolytic medication administered within last 5 days (Acute) Stroke-like symptoms (Acute) Left leg weakness (Acute) Skin tear of left upper extremity (Acute) Chronic venous insufficiency (Chronic) Edema of left lower extremity Traumatic open wound of left lower leg with delayed healing (Acute) Leg wound, left (Acute) Obtunded (Acute) Acute confusion (Acute) Deep laceration of knee (Acute) Fracture, patella (Acute) Encephalopathy Leg laceration Left knee injury Acute kidney injury superimposed on CKD (Acute) Back pain (Acute) Fall (Acute) Right hip pain Hyperkalemia Orthostatic hypotension Hypotension Ambulatory dysfunction (Acute) Metatarsal bone fracture (Acute) Closed fibular fracture (Acute) Fall Presence of Watchman left atrial appendage closure device Paroxysmal atrial fibrillation Bullous pemphigoid Chronic anemia Severe aortic stenosis Closed fracture of proximal end of right fibula Paroxysmal atrial fibrillation Moderate aortic stenosis Atypical chest pain Chest pain (Acute) Acute anterior epistaxis (Acute) Hiatal hernia Uncontrolled hypertension Obesity (Acute) Atrial flutter, paroxysmal Aortic stenosis Bicuspid aortic valve Chronic low back pain GERD (gastroesophageal reflux disease) Dyslipidemia Atrial flutter, paroxysmal Candidal intertrigo DVT prophylaxis Chest pain (Acute) Neurogenic claudication due to lumbar spinal stenosis Feeling of incomplete bladder emptying Anemia (Acute) Stage 3 chronic kidney disease (Acute) Anxiety and depression CAD (coronary artery disease) non-obstructive Hypertension (Acute) Medical History Skin tear of elbow without complication Nose septum perforation Chronic low back pain Sacroiliitis IBS (irritable bowel syndrome) Borderline diabetes mellitus A-fib "i think i have a-fib." -- on eliquis -- follows with Dr. Torres History of TIA (transient ischemic attack) 2017 Cardiac murmur History of skin cancer History of COVID-19 02/2020; generalized weakness, diarrhea, sob, fever, body aches; hospitalized x 1 week; c/o ongoing brain fog since having covid Verbalizes suicidal thoughts COVID-19 Nocturia Acute urinary retention Back pain Renal failure Morbid obesity BMI 50.5 Carotid artery stenosis "mild" Aortic stenosis Mild (per cardiology review) aortic stenosis with possible bicuspid aortic va lve (MG 19mmhg, NIKKIE 3.0) per 05/2018 ECHO Anemia Osteoporosis GERD (gastroesophageal reflux disease) controlled Chronic back pain High cholesterol Hx of falling last fall 09/2018- per patient, related to LBP/balance issues- ? r/t ambulatory dysfunction- improved with cane/walker use Surgical History History of right cataract extraction S/P epidural steroid injection History of appendectomy History of cardiac cath 2017= NO STENTS History of right knee joint replacement History of back surgery Hx of laparoscopy History of kyphoplasty Family History Father Stroke Slow to wake up after anesthesia Myocardial infarction, Onset Age: 40 Mother Stroke Myocardial infarction, Onset Age: 60 Sister Myocardial infarction, Onset Age: 60 Social History Smoking Status: Former smoker Tobacco Type: Cigarettes Cigarettes Per Day: quit 40 yrs ago; Second Hand Exposure: Yes; Hx Alcohol Use: No Hx Substance Use: No Preferred Language: [place] Communication Ability: Effective Visual Impairment: No Limitations Hearing Ability: Normal 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 Beliefs That Will Affect Care: None marital status: Single Current Living Situation: Family Current Living Situation Comment: lives w/ sister Colleen current occupational status: unemployed and disabled Feels Safe at Home: Yes Safety Concerns: Feels Safe At This Time Diet: regular caffeine: Yes Assistive Devices: Glasses and Walker Review of Systems Review of Systems: As per HPI, all other systems reviewed and negative Physical Exam Physical Exam: GENERAL: slightly uncomfortable, morbidly obese, no respiratory distress SKIN: Pallor, warm HEENT: Dried blood noted over nostrils, pale palpebral conjunctivae, no ptosis, dry buccal mucosa NECK : Supple, short neck, no tenderness CHEST : Decreased breath sounds, scattered expiratory wheezes, no tenderness HEART : RRR, systolic murmur ABDOMEN: Some distention, nontender EXTREMITIES : Minimal left hip tenderness, dressing LLE, no other conspicuous deformities noted NEUROLOGIC : Coherent, no facial asymmetry, MMTs BUE 4/5, gait and stance not assessed Results & Data Results & Data Vital Signs (Past 12 Hours) Vital Signs Temp Pulse Pulse Resp BP BP Pulse Ox 06/19/24 19:10 68 18 127/62 100 06/19/24 18:40 73 20 149/73 H 100 06/19/24 18:22 84 L 06/19/24 18:10 82 20 138/74 94 06/19/24 17:40 81 20 154/90 H 96 06/19/24 17:25 84 20 146/89 H 95 06/19/24 17:10 81 20 174/84 H 99 06/19/24 16:55 82 20 139/83 96 06/19/24 16:40 77 20 129/79 97 06/19/24 16:25 76 20 147/69 H 96 06/19/24 16:10 71 20 115/43 L 98 06/19/24 16:04 75 06/19/24 15:55 80 20 113/47 L 98 06/19/24 15:00 136/76 06/19/24 15:00 75 14 06/19/24 14:54 78 20 06/19/24 14:50 121/81 06/19/24 14:25 36.5 C 67 18 141/59 H 97 O2 Del Method O2 Flow Rate 06/19/24 19:10 Nasal Cannula 2 06/19/24 18:40 Nasal Cannula 2 06/19/24 18:22 Nasal Cannula 0 06/19/24 18:10 Room Air 06/19/24 17:40 Room Air 06/19/24 17:25 Room Air 06/19/24 17:10 Room Air 06/19/24 16:55 Room Air 06/19/24 16:40 Room Air 06/19/24 16:25 Room Air 06/19/24 16:10 Room Air 06/19/24 16:04 06/19/24 15:55 Room Air 06/19/24 15:00 06/19/24 15:00 06/19/24 14:54 06/19/24 14:50 06/19/24 14:25 Room Air Laboratory Results Laboratory Results WBC 6.23 K/ul (4.8-10.8) 06/19/24 14:27 RBC 3.29 M/uL (4.20-5.40) L 06/19/24 14:27 Hgb 8.9 g/dl (12.0-16.0) L 06/19/24 14:27 Hct 29.9 % (37.0-47.0) L 06/19/24 14:27 MCV 90.9 fL (80.0-100.0) 06/19/24 14: MCH 27.1 pg (25.0-34.0) 06/19/24 14: MCHC 29.8 g/dL (32.0-36.0) L 06/19/24 14:27 RDW Std Deviation 53.3 fL (36.4-46.3) H 06/19/24 14:27 RDW Coeff of Brandy 16.0 % (11.5-14.5) H 06/19/24 14:27 Plt Count 149 K/uL (130-400) 06/19/24 14:27 MPV 11.6 fL (9.4-12.4) 06/19/24 14:27 Immature Gran % (Auto) 0.2 % 06/19/24 14:27 Neut % (Auto) 51.3 % 06/19/24 14:27 Lymph % (Auto) 28.9 % 06/19/24 14:27 Davie % (Auto) 13.5 % 06/19/24 14:27 Eos % (Auto) 5.3 % 06/19/24 14:27 Baso % (Auto) 0.8 % 06/19/24 14:27 Neut # (Auto) 3.20 K/uL (1.40-6.50) 06/19/24 14:27 Lymph # (Auto) 1.80 K/uL (1.20-3.40) 06/19/24 14:27 Davie # (Auto) 0.84 K/uL (0.11-0.59) H 06/19/24 14:27 Eos # (Auto) 0.33 K/uL (0.00-0.50) 06/19/24 14:27 Baso # (Auto) 0.05 K/uL (0.00-0.20) 06/19/24 14:27 Immature Gran # (Auto) 0.01 K/uL (0.01-0.20) 06/19/24 14:27 PT Cancelled 06/19/24 14:27 INR Cancelled 06/19/24 14:27 APTT Cancelled 06/19/24 14:27 PTT Ratio Cancelled 06/19/24 14:27 Sodium 141 mmol/L (136-145) 06/19/24 14:28 Potassium 4.4 mmol/L (3.5-5.1) 06/19/24 14:28 Chloride 108 mmol/L (98-107) H 06/19/24 14:28 Carbon Dioxide 30 mmol/L (21-32) 06/19/24 14:28 Anion Gap 3 (3-11) 06/19/24 14:28 BUN 30 mg/dl (6-23) H 06/19/24 14:28 Creatinine 1.15 mg/dl (0.6-1.2) 06/19/24 14:28 Est Cr Clr Drug Dosing 70.2 ml/min 06/19/24 14:28 eGFR 52.21 06/19/24 14:28 BUN/Creatinine Ratio 26.1 (10-20) H 06/19/24 14:28 Glucose 90 mg/dl (70-99(Fasting)) 06/19/24 14:28 POC Glucose 81 mg/dl (70-99) 06/19/24 15:05 Calcium 9.4 mg/dl (8.6-10.3) 06/19/24 14:28 Magnesium 1.8 mg/dl (1.7-2.4) 06/19/24 14:28 Total Bilirubin 0.4 mg/dl (0.2-1.0) 06/19/24 14:28 AST 17 U/L (13-39) 06/19/24 14:28 ALT 11 U/L (7-52) 06/19/24 14:28 Alkaline Phosphatase 103 U/L (34-104) 06/19/24 14:28 Troponin I High Sens 15.0 pg/ml (0-14) H 06/19/24 14:28 Total Protein 6.8 gm/dl (6.0-8.3) 06/19/24 14:28 Albumin 3.7 gm/dl (3.4-5.0) 06/19/24 14:28 Globulin 3.1 gm/dl (2.5-4.0) 06/19/24 14:28 Albumin/Globulin Ratio 1.2 (0.9-2) 06/19/24 14:28 Impressions Chest X-Ray 06/19/24 14:25 XR chest 1V portable CLINICAL HISTORY: neuro deficit, acute stroke suspected COMPARISON STUDY: Chest CT September 14, 2023. Chest radiograph February 20, 2024. FINDINGS: This exam is compromised by suboptimal penetration. Lung volumes are normal. Patient is rotated. The heart is moderately enlarged. Interstitial thickening is present. No consolidation is identified. There is no pneumothorax or pleural effusion. IMPRESSION: Cardiomegaly with interstitial thickening suggestive of pulmonary edema. Radiographic follow-up to ensure resolution is recommended. ACT 112: Negative or not required by law. Electronically signed by: Ovidio Dunn M.D. 06/19/2024 3:49 PM Head CTA 06/19/24 14:25 CT angio head w con CLINICAL HISTORY: 69 years-old Female with neuro deficit, acute stroke suspected. Acute stroke like symptoms COMPARISON STUDY: Head CT of same day, CTA head 05/13/2022. TECHNIQUE: Following the IV administration of 118 cc of Optiray, CT angiogram of the brain was performed from the skull base to the vertex. Images are reviewed in the axial, sagittal, and coronal planes. 3-D MIPS images are created and assessed. IV contrast was administered without complication. All measurements were obtained according to NASCET criteria. A dose lowering technique was utilized adhering to the principles of ALARA. FINDINGS: CT BRAIN: Dictated separately CT ANGIOGRAM OF THE BRAIN: The imaged bilateral internal carotid arteries are patent. The bilateral anterior and middle cerebral arteries are also patent. The vertebrobasilar system and posterior cerebral arteries are widely patent. origin of the right posterior cerebral artery. There is no aneurysm, high-grade stenosis, or proximal branch occlusion identified. Dural sinuses appear patent. There is dilation and tortuosity involving the bilateral superior ophthalmic veins which has progressed from the 2022 study. IMPRESSION: 1. CTA of the head demonstrates no aneurysm, dissection, high-grade stenosis or arterial occlusion. 2. Dilation of the bilateral superior ophthalmic veins has progressed compared to the 2022 study. Nonemergent follow-up with ophthalmology recommended in order to exclude low flow carotid cavernous fistula. ACT 112: Negative or not required by law. The above report was generated using voice recognition software. It may contain grammatical, syntax or spelling errors. Electronically signed by: Juan J Abad M.D. 06/19/2024 3:07 PM Neck CTA 06/19/24 14:25 CT ANGIOGRAPHY OF THE NECK WITH CONTRAST CLINICAL HISTORY: neuro deficit, acute stroke suspected COMPARISON STUDY: CTA of the neck May 13, 2022. Technique: CT angiography of the carotid and vertebral arteries was obtained using Optiray and 3D reconstruction on an independent workstation. NASCET criteria was utilized. Automated exposure control was utilized for the study. A dose lowering technique was utilized adhering to the principles of ALARA. CT DOSE: 2282.97 mGy.cm Findings: Incidental note is made of ground glass opacities within visualized portions of the lung apices. A prominent prevascular lymph node on image 16 of 353 measures 1.8 x 1 cm. A right paratracheal lymph node on image 34 measures 1.5 x 1.4 cm. There is no cervical spine fracture. This exam is mildly compromised by artifact. The bilateral common carotid, cervical internal carotid and vertebral arteries are patent. There is moderate plaque within the carotid bifurcations without stenosis. There is no aneurysm or dissection within the neck. IMPRESSION: 1. Moderate atherosclerotic plaque within the carotid bifurcations without stenosis. 2. No aneurysm or dissection within the neck. 3. Groundglass opacities within the visualized lung apices. The findings may represent an infectious process or pulmonary edema. 4. Prominent prevascular and right paratracheal lymph nodes which are likely reactive. A chest CT in 3 months to ensure resolution is recommended. ACT 112: Negative or not required by law. Electronically signed by: Ovidio Dunn M.D. 06/19/2024 3:17 PM Abdomen/Pelvis CT 06/19/24 16:17 EXAM: CT abd pelvis wo con CLINICAL HISTORY: Left abd/hip pain. TECHNIQUE: Non-contrast CT of the abdomen and pelvis was performed, with the following protocol: axial images, and reconstructed coronal and sagittal images. No intravenous contrast was administered. One of the following dose reduction techniques was utilized for this exam: Automated exposure control, adjustment of the mA and/or kV according to patient size, and use of iterative reconstruction. COMPARISON: 09/14/2023 FINDINGS: Abdomen: Liver: Normal in size, shape, and density. No focal lesions, cysts, or masses were identified. Gallbladder and Biliary System: The gallbladder is normal in size and shape. No wall thickening, pericholecystic fluid, or gallstones were identified. Pancreas: Pancreatic head, body, and tail are visualized and appear normal in size and density. No pancreatic masses or calcifications were noted. Spleen: Normal in size, shape, and density. No splenic lesions or masses were identified. Kidneys and Adrenal Glands: Both kidneys are normal in size, shape, and position. Cortical thickness is within normal limits. No renal calculi or hydronephrosis. Opacified pelvicalyceal systems by contrast ( excretory phase of previous IV contrast ) Right adrenal gland ovoid shaped soft tissue nodule measuring 15 x 17 mm along maximum transverse diameters . left Adrenal gland is unremarkable. Appendix: The appendix is not visualized with a linear dense suture at the base of cecum likely sequela of previous surgery Pelvis: Urinary Bladder: Normal in contour and wall thickness. No intraluminal lesions ( distended by contrast ) . Uterus: Normal in size and contour. No masses or abnormal thickening. Ovaries: Not well visualized but no gross abnormalities noted. Peritoneal and Retroperitoneal Structures: No free fluid or abnormal fluid collections were identified within the abdomen or pelvis. No lymphadenopathy was noted. Tiny calcific structure is seen just deep to the anterior abdominal wall along the posterior wall of the right rectus sheath at the level of the umbilicus. calcific lymph node Bowel: Multiple tiny diverticular outpouchings are seen within the sigmoid colon and to a lesser extent the descending colon with clear adjacent pericolic fat planes. No evidence of bowel obstruction or wall thickening. Anterior abdominal wall small paraumblical hernia with fat content through a small defect measuring 18 mm. Bones and Soft Tissues: Spondylotic changes of the lumbar spine with wedge compression fracture of L4 vertebral body as well as L4-L5 grade I degenerative spondylolisthesis Bilateral Hip point osteoarthritic changes Diffuse edema of the left anterolateral abdominal wall at left iliac fossa and left lumbar region Diffuse aortic calcific atheromatous changes The lower chest cuts revealed bilateral basal thin atelectatic plates with interstitial septal thickening IMPRESSION: 1. Non-complicated diverticular disease of the sigmoid colon. 2. Right adrenal nodule measuring 15 x 17mm, for further evaluation. 3. Anterior abdominal wall small paraumbilical hernia with fat content. 4. Diffuse edema of the left anterolateral abdominal wall. 5. Spondylotic changes of the lumbar spine with wedge compression fracture of L4 vertebral body as well as L4-L5 grade I degenerative spondylolisthesis. 6. Bilateral hip joint osteoarthritic changes. 7. No significant change from the prior. Electronically signed by Donald Alberts 06-19-2024 6:[address] 06/19/24 18:04 EXAM: CT head/brain wo con CLINICAL HISTORY: headache s/p TNK, re-eval Bleed vs artifact. TECHNIQUE: Axial non-contrast CT scan of the brain was performed from the skull base to the high parietal region. One of the following dose reduction techniques was utilized for this exam: Automated exposure control, adjustment of the mA and/or kV according to patient size, and use of iterative reconstruction. 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 No evidence of acute infarct, hemorrhage, or mass effect. No intracerebral hematoma or mass effect or territorial infarction There are a few tiny, ill-defined [id number] areas noted in the periventricular white matter bilaterally, suggestive of microvascular ischemic changes. The ventricular system, cortical sulci, and basal cisterns are prominent, consistent with senile changes. The rest of the visualized brain parenchyma shows a normal appearance. Nicholson-white matter differentiation is maintained. No midline shifts or deformity. Normal CT appearance of the posterior fossa structures, namely the cerebellar hemispheres, brainstem, and cerebellar peduncles The cerebello-pontine angles are clear. The osseous structures in the skull base are unremarkable. No definite calvarium fractures. The scanned paranasal sinuses are clear. IMPRESSION: Previously noted, the extra-axial area of hyperdensity in the posterior cranial fossa, posterior to the petrous part of the temporal bone, is artifactual rather than being hemorrhage on comparison. No acute abnormalities Microvascular ischemic changes and senile changes. Electronically signed by Donald Alberts 06-19-2024 7:31 PM Diagnostic Findings EKG as per my interpretation :Rate 75, NSR, LAD, LAFB, no ischemia
[2024-06-19] MEDS ORDERED: POLYETHYLENE (MIRALAX) 17 GM PACK PO PRN (20:20)
[2024-06-19] MEDS ORDERED: PHARMACIST DISCHARGE MED REC CONSULT PRN ×2 (20:22→20:47)
[2024-06-19] MEDS ORDERED: MoRPHine SULFATE 4 MG/ML 1 ML CARP\\VIAL IV PRN (20:25)
--- NOTE | 2024-06-19 20:43 | Critical Care Consultation ---
Date of Consultation June 19, 2024 Assessment & Plan (1) Stroke-like symptoms: (2) Chronic back pain: (3) Thrombolytic medication administered within last 5 days: Plan Reason Critically Ill: Patient presents with stroke like symptoms- she was deemed a thrombolytic candidate and those were administered. Patient to the ICU post thrombolytic administration per stroke protocol. Follow hemodynamics and neurological examinations Neuro - stroke like symptoms, s/p thrombolytic administration, Hx Chronic back pain with radicular symptoms [facility] ICU: Negative - NIHSS 2 - ataxia and decreased facial sensation left - She is with chronic back pain and complaints of back pain - requesting fentanyl- will attempt to minimize further IV narcotics as well as further sedating medications at this time as to not blunt her neurological examination - She is on multiple medications at home for pain, anxiety, neuropathy- continue her baseline medications per hospitalist service - q1 hour nuerochecks - MRI head pending - repeat head CT post thrombolytics interpreted as no hemorrhage- follow symptoms- repeat head ct non con for acute changes - BP goal < 180 /105- obtaining BPs on her is challenging at this time as she has infiltrated IV with pressure dressing on from bleeding post TNK and ulceration LUE that is also wrapped - hydralazine for BP control as she is on Metoprolol oral which will also be continued - Continue high intensity statin - Does not currently wear CPAP- Stop BANG- 6- consider screening for LILY in patient with known CAD and PVD - ECHO in am - PAF - known with watchman device - Defer antiplatelet medications to neurology Cardiac - Hx: HTN, HLD, PAF, Severe - goals as above - She has not had her TAVR completed, although she did complete the pre- screenings as she could not find a ride to get procedure completed - ECHO as above Respiratory - No acute needs - consider outpatient LILY screening as above GI - Morbid obesity no acute needs - advance diet as tolerated RENAL/LYTES - No acute needs, Hx CKD III - ICU electrolyte protocol - NO acute needs ENDO - HGB A1c in am - ICU hyperglycemic protocol HEME - No acute needs - monitor for further bleeding- trend HGB/HCT - Type and screen not completed prior to TNK - obtain on next lab draw when able ID - No acute needs - chronic left lower extremitiy wound- previous cultures with MSSA- Just completed 10 day course of Cephalexin 500mg TID LINES/IV ACCESS - PIV Continue use of these lines DVT PROPHYLAXIS - SCDs, chemoprophylaxis contraindicated s/p thrombolytics DISPO: ICU 24 hour post thrombolytics I have personally spent 45 minutes of time in the direct management of this patient. This is a life/limb threatening event. This includes time spent evaluating patient, direct bedside care, chart review, placing orders, interpretation of diagnostic studies, discussion with consultants, patient, and family members, as well as other required patient management activities. This time is exclusive of all separately billable procedures, and separate from and in addition to any other critical care service time. Thank you for allowing us to participate in the care of this patient. Please refer to my attending physician's documentation for any further recommendations. History of Present Illness Reason for Consultation: Stroke like symptoms s/p thrombolytic administration Requesting Physician: Mark Leon Attending Physician: Jyotsna Garcia MD History of Present Illness 69 YOF presented to the ER today for complaints of left leg weakness, left arm weakness as well as associated numbness and tingling. Patient was reportedly at the wound clinic and around 1245 Pm the patient went to the restroom and upon returning felt as she was having difficulty ambulating secondary to left leg weakness. EMS was called and symptoms were verified, she was transported to the ER as a stroke alert. When she got to the ER, she felt her left arm weakness and n/t was worse. She also reported that she was having some speech slurring, as well as difficulty following directions. Patient had CT head, CTA of the head and neck completed and stroke evaluation by [facility] telestroke. NIHSS by [facility] was 4 and deemed a thrombolytic candidate. Patient received thrombolytics, post thrombolytics, patient developed a headache and was sent for CT scan of head. This was also associated with increase in her blood pressure and nose bleed. Reportedly she moved during the scan because her nose was bleeding, and this imaging was interpreted as possible intracranial bleed vs. artifact. She went back to the ER where she was given pain medication for her chronic back pain that was now causing her discomfort and achieved blood pressure control as well as Afrin nasal spray which stopped her nose bleeding. She again went repeat imaging with non-con head CT which was interpreted as normal without hemorrhage. Patient will be admitted to ICU for post thrombolytic stroke care. Patient has medical history of: Left leg ulcer poorly healing with cultures of MSSA, PVD awaiting surgical intervention for this, Morbid obesity, chronic back pain, PAF- with watchman device, HLD, HTN, CKD III, CAD, Aortic Stenosis- severe, Allergies Allergy/AdvReac Type Severity Reaction Status Date / Time egg AdvReac Intermediate GI upset Verified 06/19/24 13:10 ibuprofen AdvReac Intermediate stomach Verified 06/19/24 13:10 irritation morphine AdvReac Intermediate LEGS SWELL Verified 06/19/24 13:10 Home Medications Medication Instructions Recorded Confirmed Type aspirin 81 mg tablet,delayed 81 mg PO QAM 07/28/23 06/19/24 History release dupilumab 300 mg/2 mL subcutaneous 300 mg subcut Q14D 09/14/23 06/19/24 History pen injector (Dupixent) lisinopril 10 mg tablet 10 mg PO QAM 09/14/23 06/19/24 History ascorbic acid (vitamin C) 250 mg 250 mg PO QAM #30 tabs 11/03/23 06/19/24 Rx tablet atorvastatin 80 mg tablet 80 mg PO QPM #30 tabs 11/03/23 06/19/24 Rx betamethasone dipropionate 0.05 % 1 applic topical BID PRN RASH 11/03/23 06/19/24 Rx topical ointment FACE/TRUNK/ARMS #15 grams buspirone 10 mg tablet 10 mg PO BID #60 tabs 11/03/23 06/19/24 Rx calcipotriene 0.005 % topical cream 1 applic topical DAILY PRN flare 11/03/23 06/19/24 Rx up #60 grams cholecalciferol (vitamin D3) 25 1,000 unit PO QAM #30 tabs 11/03/23 06/19/24 Rx mcg (1,000 unit) tablet (Vitamin D3) clotrimazole 1 % topical cream 1 applic topical BID PRN Itching 11/03/23 06/19/24 Rx #45 grams cyanocobalamin (vitamin B-12) 1,000 mcg PO QAM #30 tabs 11/03/23 06/19/24 Rx 1,000 mcg tablet (Vitamin B-12) docusate sodium 100 mg capsule 100 mg PO BID #60 caps 11/03/23 06/19/24 Rx (Colace) doxepin 25 mg capsule 25 mg PO HS #30 caps 11/03/23 06/19/24 Rx duloxetine 60 mg capsule,delayed 120 mg (2 x 60 mg) PO QAM #60 caps 11/03/23 06/19/24 Rx release (Cymbalta) fish, borage, flaxseed oils-omega 1 cap PO QAM #30 caps 11/03/23 06/19/24 Rx 3,6,9 comb no.1 1,200 mg capsule (Winona 3-6-9) folic acid 800 mcg tablet 0.8 mg PO QAM #30 tabs 11/03/23 06/19/24 Rx memantine 10 mg tablet 10 mg PO BID #60 tabs 11/03/23 06/19/24 Rx metoprolol succinate 25 mg 12.5 mg (1/2 x 25 mg) PO BID #30 11/03/23 06/19/24 Rx tablet,extended release 24 hr tabs miconazole nitrate 2 % topical 1 applic topical BID #85 grams 11/03/23 06/19/24 Rx powder (Desenex) oxybutynin chloride 5 mg 5 mg PO QPM #30 tabs 11/03/23 06/19/24 Rx tablet,extended release 24 hr oxycodone 5 mg tablet 5 mg PO Q6H PRN pain level 6-10 on 11/03/23 06/19/24 Rx a 1-10 scale #5 tabs polyethylene glycol 3350 17 gram 17 g PO DAILY PRN constipation #30 11/03/23 06/19/24 Rx oral powder packet (Miralax) ea sodium chloride 0.65 % nasal spray 2 spray NA Q6H #44 mL 11/03/23 06/19/24 Rx aerosol (Saline Mist) sumatriptan succinate 25 mg tablet 25 mg PO DIRECTED PRN Migraine 11/03/23 06/19/24 Rx Headache #30 tabs tacrolimus 0.1 % topical ointment 1 applic topical BID PRN itching 11/03/23 06/19/24 Rx #30 grams tamsulosin 0.4 mg capsule 0.4 mg PO QAM #30 caps 11/03/23 06/19/24 Rx furosemide 20 mg tablet (Lasix) 20 mg PO DAILY #3 tabs 02/20/24 06/19/24 Rx Patient History Medical History Skin tear of elbow without complication Nose septum perforation Chronic low back pain Sacroiliitis IBS (irritable bowel syndrome) Borderline diabetes mellitus A-fib "i think i have a-fib." -- on eliquis -- follows with Dr. Torres History of TIA (transient ischemic attack) 2016 Cardiac murmur History of skin cancer History of COVID-19 02/2020; generalized weakness, diarrhea, sob, fever, body aches; hospitalized x 1 week; c/o ongoing brain fog since having covid Verbalizes suicidal thoughts COVID-19 Nocturia Acute urinary retention Back pain Renal failure Morbid obesity BMI 50.5 Carotid artery stenosis "mild" Aortic stenosis Mild (per cardiology review) aortic stenosis with possible bicuspid aortic valve (MG 19mmhg, NIKKIE 3.0) per 05/2018 ECHO Anemia Osteoporosis GERD (gastroesophageal reflux disease) controlled Chronic back pain High cholesterol Hx of falling last fall 09/2018- per patient, related to LBP/balance issues- ? r/t ambulatory dysfunction- improved with cane/walker use Surgical History History of right cataract extraction S/P epidural steroid injection History of appendectomy History of cardiac cath 2016= NO STENTS History of right knee joint replacement History of back surgery Hx of laparoscopy History of kyphoplasty Family History Father Stroke Slow to wake up after anesthesia Myocardial infarction, Onset Age: 40 Mother Stroke Myocardial infarction, Onset Age: 60 Sister Myocardial infarction, Onset Age: 60 Social History Smoking Status: Former smoker Tobacco Type: Cigarettes Cigarettes Per Day: quit 40 yrs ago; Second Hand Exposure: Yes; Hx Alcohol Use: No Hx Substance Use: No Preferred Language: Macedonian Communication Ability: Effective Visual Impairment: No Limitations Hearing Ability: Normal Opto Mechanical Technician Required: No Beliefs That Will Affect Care: None marital status: Single Current Living Situation: Family Current Living Situation Comment: lives w/ sister Colleen current occupational status: unemployed and disabled Feels Safe at Home: Yes Safety Concerns: Feels Safe At This Time Diet: regular caffeine: Yes Assistive Devices: Glasses and Walker Review of Systems Review of Systems: REVIEW OF SYSTEMS: Constitutional: No fever, sweats or chills Eyes: No diplopia, no worsening or blurred vision ENT: normal hearing, no trouble swallowing Respiratory: No cough, sputum, dyspnea at rest or on exertion Cardiovascular: No chest pain, tightness or palpitations Abdomen: No pain, nausea, vomiting, diarrhea or constipation Musculoskeletal: (+) chronic back with leg weakness Neurologic:(+) new LUE/LLL weakness, numbness/tingling, or balance problems Skin: (+) LLE wound Physical Exam Physical Exam: PHYSICAL EXAM: General: awake, alert, no apparent distress Head: Normocephalic, atraumatic ENT: PEERLA, No weakness or drift of extremities, speech clear, mild left facial droop (hx of bells palsy as well), mild LUE ataxia, no aphasia. decreased sensation of left face Neuro: AAO x 3, speech clear and appropriate, strength intact bilaterally 5/5, sensation intact and equal all extremities and dermatones, no pronator drift Chest: equal rise and fall of the chest, no accessory muscle use, no heaves or thrills, decreased in bases likely secondary to body habitus Cardiac: Regular rate and rhythm, telemetry reviewed- NSR, skin warm dry, cap refill <3 seconds, peripheral pulses +2 no JVD, Grade III systolic murmur LSB, trace edema to extremities GI: NABS x 4 quadrants, soft, nontender to palpation, no rebound, guarding or tenderness : Spontaneously voiding, no pain, Psych: Normal mood and affect Skin:,ultiple areas of bruising with wraps to arms, ulceration to lue- that is wrapped and lle that is wrapped Results & Data Results & Data Vital Signs (Past 12 Hours) Vital Signs Temp Pulse Pulse Resp BP BP Pulse Ox 06/19/24 20:08 63 18 116/49 L 100 06/19/24 19:42 77 18 140/66 100 06/19/24 19:10 68 18 127/62 100 06/19/24 18:40 73 20 149/73 H 100 06/19/24 18:22 84 L 06/19/24 18:10 82 20 138/74 94 06/19/24 17:40 81 20 154/90 H 96 06/19/24 17:25 84 20 146/89 H 95 06/19/24 17:10 81 20 174/84 H 99 06/19/24 16:55 82 20 139/83 96 06/19/24 16:40 77 20 129/79 97 06/19/24 16:25 76 20 147/69 H 96 06/19/24 16:10 71 20 115/43 L 98 06/19/24 16:04 75 06/19/24 15:55 80 20 113/47 L 98 06/19/24 15:00 136/76 06/19/24 15:00 75 14 06/19/24 14:54 78 20 06/19/24 14:50 121/81 06/19/24 14:25 36.5 C 67 18 141/59 H 97 O2 Del Method O2 Flow Rate 06/19/24 20:08 Oxymask 4 06/19/24 19:42 Oxymask 4 06/19/24 19:10 Nasal Cannula 2 06/19/24 18:40 Nasal Cannula 2 06/19/24 18:22 Nasal Cannula 0 06/19/24 18:10 Room Air 06/19/24 17:40 Room Air 06/19/24 17:25 Room Air 06/19/24 17:10 Room Air 06/19/24 16:55 Room Air 06/19/24 16:40 Room Air 06/19/24 16:25 Room Air 06/19/24 16:10 Room Air 06/19/24 16:04 06/19/24 15:55 Room Air 06/19/24 15:00 06/19/24 15:00 06/19/24 14:54 06/19/24 14:50 06/19/24 14:25 Room Air Laboratory Results Abnormal lab results 06/19/24 06/19/24 Range/Units 14:27 14:28 RBC 3.29 L (4.20-5.40) M/uL Hgb 8.9 L (12.0-16.0) g/dl Hct 29.9 L (37.0-47.0) % MCHC 29.8 L (32.0-36.0) g/dL RDW Std Deviation 53.3 H (36.4-46.3) fL RDW Coeff of Brandy 16.0 H (11.5-14.5) % [place] # (Auto) 0.84 H (0.11-0.59) K/uL Chloride 108 H (98-107) mmol/L BUN 30 H (6-23) mg/dl BUN/Creatinine Ratio 26.1 H (10-20) Troponin I High Sens 15.0 H (0-14) pg/ml Diagnostic Findings Chest X-Ray 06/19/24 14:25 XR chest 1V portable CLINICAL HISTORY: neuro deficit, acute stroke suspected COMPARISON STUDY: Chest CT September 14, 2023. Chest radiograph February 20, 2024. FINDINGS: This exam is compromised by suboptimal penetration. Lung volumes are normal. Patient is rotated. The heart is moderately enlarged. Interstitial thickening is present. No consolidation is identified. There is no pneumothorax or pleural effusion. IMPRESSION: Cardiomegaly with interstitial thickening suggestive of pulmonary edema. Radiographic follow-up to ensure resolution is recommended. ACT 112: Negative or not required by law. Electronically signed by: Ovidio Dunn M.D. 06/19/2024 3:[address] 06/19/24 14:25 CT head/brain wo con CLINICAL HISTORY: 69 years-old Female with neuro deficit, acute stroke shantelle pected. Acute stroke like symptoms TECHNIQUE: Multiple axial CT images of the head were obtained without contrast. A dose lowering technique was utilized adhering to the principles of ALARA. COMPARISON: CTA head of same day, brain MRI 01/24/2024 FINDINGS: No acute intracranial hemorrhage, midline shift, intracranial mass, hydrocephalus, territorial ischemia or abnormal extra-axial collection. Suggestion of mild chronic microvascular ischemic disease. The calvarium is intact. Chronic nasal septal defect again seen. Prior bilateral lens repair. The paranasal sinuses, mastoid air cells, and middle ear cavities are clear. IMPRESSION: No acute intracranial abnormality. ACT 112: Negative or not required by law. The above report was generated using voice recognition software. It may contain grammatical, syntax or spelling errors. Electronically signed by: Juan J Abad M.D. 06/19/2024 3:00 PM Head CTA 06/19/24 14:25 CT angio head w con CLINICAL HISTORY: 69 years-old Female with neuro deficit, acute stroke suspected. Acute stroke like symptoms COMPARISON STUDY: Head CT of same day, CTA head 05/13/2022. TECHNIQUE: Following the IV administration of 118 cc of Optiray, CT angiogram of the brain was performed from the skull base to the vertex. Images are reviewed in the axial, sagittal, and coronal planes. 3-D MIPS images are created and assessed. IV contrast was administered without complication. All measurements were obtained according to NASCET criteria. A dose lowering technique was utilized adhering to the principles of ALARA. FINDINGS: CT BRAIN: Dictated separately CT ANGIOGRAM OF THE BRAIN: The imaged bilateral internal carotid arteries are patent. The bilateral anterior and middle cerebral arteries are also patent. The vertebrobasilar system and posterior cerebral arteries are widely patent. origin of the right posterior cerebral artery. There is no aneurysm, high-grade stenosis, or proximal branch occlusion identified. Dural sinuses appear patent. There is dilation and tortuosity involving the bilateral superior ophthalmic veins which has progressed from the 2022 study. IMPRESSION: 1. CTA of the head demonstrates no aneurysm, dissection, high-grade stenosis or arterial occlusion. 2. Dilation of the bilateral superior ophthalmic veins has progressed compared to the 2022 study. Nonemergent follow-up with ophthalmology recommended in order to exclude low flow carotid cavernous fistula. ACT 112: Negative or not required by law. The above report was generated using voice recognition software. It may contain grammatical, syntax or spelling errors. Electronically signed by: Juan J Abad M.D. 06/19/2024 3:07 PM Neck CTA 06/19/24 14:25 CT ANGIOGRAPHY OF THE NECK WITH CONTRAST CLINICAL HISTORY: neuro deficit, acute stroke suspected COMPARISON STUDY: CTA of the neck May 13, 2022. Technique: CT angiography of the carotid and vertebral arteries was obtained using Optiray and 3D reconstruction on an independent workstation. NASCET criteria was utilized. Automated exposure control was utilized for the study. A dose lowering technique was utilized adhering to the principles of ALARA. CT DOSE: 2282.97 mGy.cm Findings: Incidental note is made of ground glass opacities within visualized portions of the lung apices. A prominent prevascular lymph node on image 16 of 353 measures 1.8 x 1 cm. A right paratracheal lymph node on image 34 measures 1.5 x 1.4 cm. There is no cervical spine fracture. This exam is mildly compromised by artifact. The bilateral common carotid, cervical internal carotid and vertebral arteries are patent. There is moderate plaque within the carotid bifurcations without stenosis. There is no aneurysm or dissection within the neck. IMPRESSION: 1. Moderate atherosclerotic plaque within the carotid bifurcations without stenosis. 2. No aneurysm or dissection within the neck. 3. Groundglass opacities within the visualized lung apices. The findings may represent an infectious process or pulmonary edema. 4. Prominent prevascular and right paratracheal lymph nodes which are likely reactive. A chest CT in 3 months to ensure resolution is recommended. ACT 112: Negative or not required by law. Electronically signed by: Ovidio Dunn M.D. 06/19/2024 3:17 PM Abdomen/Pelvis CT 06/19/24 16:17 EXAM: CT abd pelvis wo con CLINICAL HISTORY: Left abd/hip pain. TECHNIQUE: Non-contrast CT of the abdomen and pelvis was performed, with the following protocol: axial images, and reconstructed coronal and sagittal images. No intravenous contrast was administered. One of the following dose reduction techniques was utilized for this exam: Automated exposure control, adjustment of the mA and/or kV according to patient size, and use of iterative reconstruction. COMPARISON: 09/14/2023 FINDINGS: Abdomen: Liver: Normal in size, shape, and density. No focal lesions, cysts, or masses were identified. Gallbladder and Biliary System: The gallbladder is normal in size and shape. No wall thickening, pericholecystic fluid, or gallstones were identified. Pancreas: Pancreatic head, body, and tail are visualized and appear normal in size and density. No pancreatic masses or calcifications were noted. Spleen: Normal in size, shape, and density. No splenic lesions or masses were identified. Kidneys and Adrenal Glands: Both kidneys are normal in size, shape, and position. Cortical thickness is within normal limits. No renal calculi or hydronephrosis. Opacified pelvicalyceal systems by contrast ( excretory phase of previous IV contrast ) Right adrenal gland ovoid shaped soft tissue nodule measuring 15 x 17 mm along maximum transverse diameters . left Adrenal gland is unremarkable. Appendix: The appendix is not visualized with a linear dense suture at the base of cecum likely sequela of previous surgery Pelvis: Urinary Bladder: Normal in contour and wall thickness. No intraluminal lesions ( distended by contrast ) . Uterus: Normal in size and contour. No masses or abnormal thickening. Ovaries: Not well visualized but no gross abnormalities noted. Peritoneal and Retroperitoneal Structures: No free fluid or abnormal fluid collections were identified within the abdomen or pelvis. No lymphadenopathy was noted. Tiny calcific structure is seen just deep to the anterior abdominal wall along the posterior wall of the right rectus sheath at the level of the umbilicus. calcific lymph node Bowel: Multiple tiny diverticular outpouchings are seen within the sigmoid colon and to a lesser extent the descending colon with clear adjacent pericolic fat planes. No evidence of bowel obstruction or wall thickening. Anterior abdominal wall small paraumblical hernia with fat content through a small defect measuring 18 mm. Bones and Soft Tissues: Spondylotic changes of the lumbar spine with wedge compression fracture of L4 vertebral body as well as L4-L5 grade I degenerative spondylolisthesis Bilateral Hip point osteoarthritic changes Diffuse edema of the left anterolateral abdominal wall at left iliac fossa and left lumbar region Diffuse aortic calcific atheromatous changes The lower chest cuts revealed bilateral basal thin atelectatic plates with interstitial septal thickening IMPRESSION: 1. Non-complicated diverticular disease of the sigmoid colon. 2. Right adrenal nodule measuring 15 x 17mm, for further evaluation. 3. Anterior abdominal wall small paraumbilical hernia with fat content. 4. Diffuse edema of the left anterolateral abdominal wall. 5. Spondylotic changes of the lumbar spine with wedge compression fracture of L4 vertebral body as well as L4-L5 grade I degenerative spondylolisthesis. 6. Bilateral hip joint osteoarthritic changes. 7. No significant change from the prior. Electronically signed by Donald Alberts 06-19-2024 6:[address] 06/19/24 16:17 EXAM: CT head/brain wo con CLINICAL HISTORY: SUE s/p TNK. TECHNIQUE: Axial non-contrast CT scan of the brain was performed from the skull base to the high parietal region. One of the following dose reduction techniques were utilized for this exam: Automated exposure control, adjustment of the mA and/or kV according to patient size, use of iterative reconstruction. COMPARISON: Compared to 01.24.2024. FINDINGS: Ill-defined right temporal extra-axial area of relative hyperdensity just posterior to the right petrous bone, measuring about 2 x 1.5 cm (new finding). Brain Parenchyma: prominent ventricular system. No midline shift. Bilateral periventricular hypodensities and white matter foci of hypodensity. Ventricular System: No evidence of hydrocephalus. Subarachnoid Spaces: widened sulci and cisterns. No evidence of subarachnoid hemorrhage or extra-axial fluid collections. Cerebellum and Brainstem: Normal size and signal. No masses, lesions, or areas of abnormal density. Orbits: Normal appearance of the globes, optic nerves, and extraocular muscles. No evidence of orbital masses or abnormal density. Sinuses: Clear paranasal sinuses. No evidence of sinusitis or mucosal thickening. Mastoid Air Cells: Clear mastoid air cells. No evidence of mastoiditis. Skull: Normal skull morphology. IMPRESSION: 1. Ill-defined right temporal extra-axial area of relative hyperdensity just posterior to the right petrous bone, measuring about 2 x 1.5 cm (new finding). Possible artifactual however low suspicion of possible hematoma could not be excluded. Further MRI assessment is advised. 2. Stable course regarding the brain atrophic changes with old lacunar ischemic foci. 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 Electronically signed by Donald Alberts 06-19-2024 5:[address] 06/19/24 18:04 EXAM: CT head/brain wo con CLINICAL HISTORY: headache s/p TNK, re-eval Bleed vs artifact. TECHNIQUE: Axial non-contrast CT scan of the brain was performed from the skull base to the high parietal region. One of the following dose reduction techniques was utilized for this exam: Automated exposure control, adjustment of the mA and/or kV according to patient size, and use of iterative reconstruction. COMPARISON: Prior 06/19/2024 15:22:41 [employer] FINDINGS: Brain Parenchyma: Previously noted, the extra-axial area of hyperdensity in the posterior cranial fossa, posterior to the petrous part of the temporal bone, is artifactual rather than being hemorrhage on comparison. No evidence of acute infarct, hemorrhage, or mass effect. No intracerebral hematoma or mass effect or territorial infarction There are a few tiny, ill-defined [id number] areas noted in the periventricular white matter bilaterally, suggestive of microvascular ischemic changes. The ventricular system, cortical sulci, and basal cisterns are prominent, consistent with senile changes. The rest of the visualized brain parenchyma shows a normal appearance. Nicholson-white matter differentiation is maintained. No midline shifts or deformity. Normal CT appearance of the posterior fossa structures, namely the cerebellar hemispheres, brainstem, and cerebellar peduncles The cerebello-pontine angles are clear. The osseous structures in the skull base are unremarkable. No definite calvarium fractures. The scanned paranasal sinuses are clear. IMPRESSION: Previously noted, the extra-axial area of hyperdensity in the posterior cranial fossa, posterior to the petrous part of the temporal bone, is artifactual rather than being hemorrhage on comparison. No acute abnormalities Microvascular ischemic changes and senile changes. Electronically signed by Donald Alberts 06-19-2024 7:31 PM Medications Administered Atorvastatin Calcium (Atorvastatin 40 Mg Tab) 80 mg PO QPM PEGGY Stop: 07/19/24 20:59 Last Admin: 06/19/24 20:59 Dose: 80 mg Documented By: CIRO Buspirone HCl (Buspirone 5 Mg Tab) 10 mg PO BID PEGGY Stop: 07/19/24 20:59 Last Admin: 06/19/24 20:58 Dose: 10 mg Documented By: CIRO Docusate Sodium (Docusate Sodium 100 Mg Cap) 100 mg PO BID PEGGY Stop: 07/19/24 20:59 Last Admin: 06/19/24 21:06 Dose: 100 mg Documented By: CIRO Doxepin HCl (Doxepin Hcl 25 Mg Capsule) 25 mg PO HS PEGGY Stop: 07/19/24 20:59 Last Admin: 06/19/24 20:57 Dose: 25 mg Documented By: CIRO Memantine (Memantine Hcl 10 Mg Tab) 10 mg PO BID PEGGY Stop: 07/19/24 20:59 Last Admin: 06/19/24 20:58 Dose: 10 mg Documented By: CIRO Miscellaneous (Remove Lidoderm Patch) 1 each N/A DAILY@2100 PEGGY Stop: 07/19/24 20:59 Last Admin: 06/19/24 20:59 Dose: 1 each Documented By: CIRO Oxybutynin Chloride (Oxybutynin Chloride Xl 5 Mg Tabcr) 5 mg PO QPM PEGGY Stop: 07/19/24 20:59 Last Admin: 06/19/24 20:58 Dose: 5 mg Documented By: CIRO Discontinued Medications Fentanyl Citrate (Fentanyl Citrate Pf 100 Mcg/2 Ml Vial) 50 mcg IV NOW STA Stop: 06/19/24 17:40 Last Admin: 06/19/24 17:44 Dose: 50 mcg Documented By: RODY Fentanyl Citrate (Fentanyl Citrate Pf 100 Mcg/2 Ml Vial) 50 mcg IV NOW STA Stop: 06/19/24 18:05 Last Admin: 06/19/24 18:08 Dose: 50 mcg Documented By: CONNOR Furosemide (Furosemide Inj 20 Mg/2 Ml Vial) 20 mg IV ONE ONE Stop: 06/19/24 20:46 Last Admin: 06/19/24 21:06 Dose: 20 mg Documented By: CIRO Sodium Chloride (Nss) 1,000 mls @ 999 mls/hr IV .Q1H1M ONE Stop: 06/19/24 15:24 Last Infusion: 06/19/24 16:21 Dose: Infused Documented By: Admin: 06/19/24 15:20 Dose: 999 mls/hr Documented By: CONNOR Tenecteplase 25 mg/ Syringe 5 mls @ 60 mls/min IV NOW ONE; Protocol Stop: 06/19/24 15:39 Last Admin: 06/19/24 15:40 Dose: 60 mls/min Documented By: CONNOR Co-signed By: RODY Acetaminophen (Ofirmev) 1,000 mg in 100 mls @ 400 mls/hr IV NOW STA Stop: 06/19/24 15:49 Last Infusion: 06/19/24 16:18 Dose: Infused Documented By: Admin: 06/19/24 16:03 Dose: 400 mls/hr Documented By: CONNOR Promethazine HCl (Phenergan) 12.5 mg in 50.5 mls @ 202 mls/hr IV NOW STA Stop: 06/19/24 20:49 Last Admin: 06/19/24 21:05 Dose: Not Given Documented By: CIRO Ioversol (Optiray 320 125ml) 118 ml IV ONCE ONE Stop: 06/19/24 14:54 Last Admin: 06/19/24 14:53 Dose: 118 ml Documented By: SCOTTIE Lidocaine (Lidocaine 5% 1 Patch) 1 patch TD NOW STA Stop: 06/19/24 15:52 Last Admin: 06/19/24 16:04 Dose: 1 patch Documented By: CONNOR Lorazepam (Lorazepam 2 Mg/1 Ml Vial) 0.5 mg IV NOW STA Stop: 06/19/24 17:23 Last Admin: 06/19/24 17:29 Dose: 0.5 mg Documented By: CONNOR Miscellaneous (Stat Iv/Im) 1 each N/A NOW STA Stop: 06/19/24 15:29 Last Admin: 06/19/24 15:45 Dose: 1 each Documented By: CONNOR Oxymetazoline HCl (Oxymetazoline 0.05% 30 Ml Btl) Confirm Administered Dose 150 sprays .ROUTE .STK-MED ONE Stop: 06/19/24 17:23 Last Admin: 06/19/24 17:35 Dose: 5 sprays Documented By: CONNOR Sodium Chloride (Sodium Chloride 0.9% 10ml Flush) 20 ml IV NOW STA Stop: 06/19/24 15:29 Last Admin: 06/19/24 15:45 Dose: 20 ml Documented By: CONNOR Coding Level of Care Code 42534 IN/OBS CONSULT LVL 3,45M Diagnoses Stroke-like symptoms R29.90 Chronic back pain M54.9; G89.29 Thrombolytic medication administered within last 5 days Z78.9
[2024-06-19] MEDS ORDERED: hydrALAZINE HCL 20 MG/ML VIAL IV PRN (20:47)
[2024-06-19] MEDS: DOXEPIN HCL 25 MG CAPSULE PO SCH (20:57)
[2024-06-19] MEDS: MEMANTINE HCL 10 MG TAB PO SCH (20:58)
[2024-06-19] MEDS: busPIRone 5 MG TAB PO SCH (20:58)
[2024-06-19] MEDS: OXYBUTYNIN CHLORIDE XL 5 MG TABCR PO SCH (20:58)
[2024-06-19] MEDS: ATORVASTATIN 40 MG TAB PO SCH (20:59)
[2024-06-19] MEDS: PROMETHAZINE 12.5 MG/50.5 ML BAG IV STA (21:05)
[2024-06-19] MEDS: FUROSEMIDE INJ 20 MG/2 ML VIAL IV ONE (21:06)
[2024-06-19] MEDS: DOCUSATE SODIUM 100 MG CAP PO SCH (21:06)
[2024-06-19] MEDS ORDERED: SODIUM CHLORIDE 0.65% NA SOLN 45 ML (OCEAN) PRN (21:31)
[2024-06-19] MEDS: oxyCODONE HCL IR 5 MG TAB (IMMEDIATE RELEASE) PO PRN (21:40)
[2024-06-19 21:48] LABS: Appearance Urine Clear (Clear); Bilirubin Urine Negative (Negative); Blood Urine Negative (Negative); Color Urine Yellow; Glucose Urine UA Negative (Negative); Ketones Urine Negative (Negative); Leukocyte Esterase Urine Negative (Negative); Nitrite Urine Negative (Negative); Protein Urine Negative (Negative); Specific Gravity Urine 1.043 (1.000-1.030); Urobilinogen Urine Negative (Negative); pH Urine 5.5 (4.5-7.5)
--- OUTSIDE RECORDS SUMMARY | 2024-06-19 21:59 | External Medical Summary | Summary of Care ---
Author Name Unknown Organization [facility] Address [address] [place] [address] Phone [phone] Care Team Providers Care Last Repairer Name Role Phone Nikunj Plascencia MD Primary Care Provider [phone] Reason for Visit * Reason Comments Routine Exam Encounter Details Date Type Department Care Team (Late st Contact Info) Description 06/07/2024 2:20 PM EDT Office Visit Podiatry [facility] [address] [place] [phone] Eveline Layne, DPGeetha [address] [place] [address] Stage 3a chronic kidney disease (HCC)*; Pre-ulcerative calluses; Long toenail; Sinus tarsitis of left foot; Plantar fasciitis, right; Eschar of toe Allergies Active Allergy Reactions Criticality Noted Date Comments Egg Shells Nausea/vomiting Medium 06/16/2018 Other reaction(s): GI SYMPTOMS Egg Yolk High 11/29/2019 Other reaction(s): GI upset Ibuprofen Other (Please comment) Medium 07/30/2010 Stomach upset Morphine Edema face/lips/tongue High 08/28/2021 Other reaction(s): LEGS SWELL documented as of this encounter (statuses as of 06/07/2024) Medications OMEGA 3-6-9 FATTY ACIDS PO CAPS once daily Activ e B-12 1000 MCG PO TBCR Take by mouth 1 Tablet daily . Active VITAMIN D 1000 UNITS PO CAPS Take 1 Capsule by mouth in the morning. 60 Cap 0 3 Active COLACE 100 MG PO CAPS 1 am & 1 at bedtime Active Folic Acid 800 MCG TabletIndications: Primary [...] the morning and 1 Tablet before bedtime. 1 Active Nitroglycerin 0.4 MG Sublingual Tablet [...] resolved, then when flaring 100 g 2 Active Clotrimazole 1 % External Cream (Lotrimin) Apply topically to affected area as needed for Itching. 30 g 5 3 Active Saline Nasal [place] 0.65 % Nasal Solution ([place]) Q6H 3 Active Clobetasol Propionate 0.05 % External [...] 07, 2022. 34 Tablet 11 3 Active Doxepin HCl 25 MG Oral Capsule (SINEquan) Take 1 Capsule by mouth at bedtime. 4 Active Tacrolimus 0.1 % External Ointment Apply thin film to affected areas at face twice daily as needed. 60 g 2 4 Active traZODone HCl 100 MG Oral Tablet (Desyrel) Active oxyBUTYnin Chloride ER 5 MG Oral Tablet Extended Release 24 Hour (Ditropan XL)Indications:Dys uria Take 1 Tablet by mouth in the morning. 90 Tablet 3 4 Active Atorvastatin Calcium 80 MG Oral Tablet (Lipitor) Take 1 Tablet by mouth in the morning. 90 Tablet 3 4 Active cycloSPORINE 0.05 % Ophthalmic Emulsion (Restasis) Instill 1 drop in each eye every 12 hours. 5.5 mL 5 4 Active Saccharomyces boulardii 250 MG Oral Capsule (Florastor) Take 1 Capsule by mouth in the morning and 1 Capsule at noon and 1 Capsule in the evening. Active Dupixent 300 MG/2ML Subcutaneous Solution Auto-injector (Dupilumab) Inject 2 mL (1 pen) under the skin every 14 days. 4 mL 3 03/20/2024 9:45 AM EST 4 Active Metoprolol Succinate ER 50 MG Oral Tablet Extended Release 24 Hour (toPROL XL) Take 0.5 Tablets by mouth in the morning and 0.5 Tablets before bedtime. 90 Tablet 3 4 Active Furosemide 20 MG Oral Tablet (Lasix)Indications :Severe aortic stenosis,Left heart failure with preserved left ventricular function (HCC) Take 1 Tablet by mouth in the morning. 90 Tablet 3 5 Active oxyCODONE HCl 5 MG Oral Tablet (Oxy IR)Indications:Spi nal stenosis of lumbar region without neurogenic claudication Take 1 Tablet by mouth every 6 hours as needed for Pain, Severe. 12 Tablet 5 Active Pregabalin 100 MG Oral Capsule (Lyrica) Take 1 Capsule by mouth in the morning and 1 Capsule at noon and 1 Capsule before bedtime. 90 Capsule 3 5 Active Doxycycline Hyclate 100 MG Oral Tablet Take 1 Tablet by mouth in the morning and 1 Tablet before bedtime. X 10 days for wound infection. 5 Active SUMAtriptan Succinate 25 MG Oral Tablet (Imitrex) Take 2 tablets at onset of migraine and one tablet every 2 hours as needed, not more than 5 tablets in 24 hours 16 Tablet 3 5 Active DULoxetine HCl 60 MG Oral Capsule Delayed Release Particles (Cymbalta) Take 2 Capsules by mouth in the morning. 60 Capsule 5 5 Active Memantine HCl 10 MG Oral Tablet (Namenda)Indicatio ns:Spinal stenosis of lumbar region without neurogenic claudication Take 1 tablet by mouth twice daily 60 Tablet 5 5 Active Tamsulosin HCl 0.4 MG Oral Capsule (Flomax) Take by mouth daily. 4 Active Acitretin 10 MG Oral Capsule Take 1 capsule daily with breakfast. 90 Capsule 1 5 Active Cephalexin 500 MG Oral Capsule (Keflex) Take 1 Capsule by mouth in the morning and 1 Capsule at noon and 1 Capsule before bedtime. 5 Active Hospital, Clinic, or Other Facility Administered Medication Ordered Dose Route Frequency Start Date End Date Status atropine sulfate inj 0.4 mgIndications:Chest pain, unspecified type 0.4 mg IV PUSH PRN 01/29/2021 Active documented as of this encounter (statuses as of 06/07/2024) Active Problems Problem Noted Date Diagnosed Date Major depressive disorder, r ecurrent severe without psychotic features 03/10/2024 Assessment & Plan (03/10/2024 8:29 PM EST): Continue buspar, cymbalta, lyrica, trazodone Generalized anxiety disorder 03/10/2024 Assessment & Plan (03/10/2024 8:29 PM EST): Mood stable Hypertensive heart and kidne y disease with chronic diastolic congestive heart failure and stage 3b chronic kidney disease 12/05/2023 Assessment & Plan (03/10/2024 8:29 PM EST): "RED FLAG" HF Symptoms: Leg Swelling Increased dyspnea on exertion Medication Regimen: Beta Ruth Ann Therapy: Metoprolol Succinate (ER) CONNOR Inhibitor/ARB Therapy: No CONNOR/ARB/ARNI secondary to: previous EDYTA Diuretic therapy: furosemide SGLT2 Inhibitor: No Current SGLT2 (Describe in the Comments) Remote Patient Monitoring Vendor: No Connected RPM Device(s): No current devices Additional Comments: BP elevated today, will need to monitor. Nephrology f/u 03/20 Assessment & Plan (01/22/2024 5:16 PM EST): "RED FLAG" HF Symptoms: Leg Swelling Increased dyspnea on exertion Medication Regimen: Beta Ruth Ann Therapy: Metoprolol Succinate (ER) CONNOR Inhibitor/ARB Therapy: No CONNOR/ARB/ARNI secondary to: hypotension Diuretic therapy: No diuretic secondary to hypotension SGLT2 Inhibitor: No Current SGLT2 (Describe in the Comments) Remote Patient Monitoring Vendor: No Connected RPM Device(s): No current devices Additional Comments: Will have patient restart metoprolol due to mild tachycardia today Remains off lisinopril Orders: DURABLE MEDICAL EQUIPMENT Assessment & Plan (12/05/2023 10:38 AM EDT): Lungs are clear, denies increased shortness of breath 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 Assessment & Plan (03/10/2024 8:29 PM EST): H/o, prior to 2014, unable to find records Assessment & Plan (01/22/2024 5:16 PM EST): Unsure of history, patient unable to provide info Ambulatory dysfunction 11/15/2023 Assessment & Plan (01/22/2024 5:16 PM EST): Orders: DURABLE MEDICAL EQUIPMENT Multiple falls 09/26/2023 Bullous pemphigoid 09/05/2023 Assessment & Plan (03/10/2024 8:29 PM EST): Continue dupixent Congenital insufficiency of aortic valve 024 Presence of Watchman left atrial appendage closu re device 12/19/2022 PAF (paroxysmal atrial fibrillation) 08/17/2022 Overview (08/17/2022): Added automatically from request for surgery [id number] Assessment & Plan (03/10/2024 8:29 PM EST): No anticoag S/p watchman device Assessment & Plan (01/22/2024 5:16 PM EST): S/p watchman device Nodular degeneration of cornea 08/11/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 perforation 06/13/2022 Overview (06/13/2022): Per ENT 06/13/22 - "too large for surgery --- follow up in 1 year ---- use nasal moisturizers" Migraine with aura and witho ut status migrainosus, not intractable 06/12/2022 Assessment & Plan (03/10/2024 8:29 PM EST): stable After-cataract with vision obscured 01/11/2022 Depression with anxiety 10/20/2021 Paroxysmal atrial flutter 06/21/2021 Chronic insomnia 12/22/2020 Severe aortic stenosis 04/02/2020 Bicuspid aortic valve 10/09/2019 Dyslipidemia 10/03/2017 Functional urinary incontinence 10/03/2017 Thrombocytopenia, unspecified 10/03/2017 Senile osteoporosis 08/29/2017 Assessment & Plan (03/10/2024 8:29 PM EST): prolia Assessment & Plan (01/22/2024 5:16 PM EST): High fracture risk per dexa Gastroesophageal reflux disease without esophagi tis 08/11/2017 Spinal stenosis of lumbar re gion without neurogenic claudication 01/04/2017 Super obese 11/25/2015 Stage 3b chronic kidney disease (CKD) 08/31/2015 Overview: Per CKD protocol #1 HTN, goal below 130/80 07/29/2015 Irritable bowel syndrome wit h both constipation and diarrhea 04/11/2011 documented as of this encounter (statuses as of 06/07/2024) Resolved Problems Problem Noted Date Diagnosed Date Resolved Date Dyspnea 11/15/2023 11/22/2023 Acute ankle pain 11/15/2023 11/22/2023 Acute anterior epistaxis 11/15/2023 Acute neck pain 11/15/2023 11/22/2023 Acute retention of urine 11/15/2023 Cellulitis 11/15/2023 01/10/2024 Abdominal pain, lower 11/15/20232023 Atypical chest pain 11/15/2023 11/22/19 Back pain 11/15/2023 11/22/2023 Chest pain 11/15/2023 11/22/2023 Closed head injury 11/15/2023 Constipation 11/15/2023 01/10/2024 COVID-19 11/15/2023 01/10/2024 Dehydration 11/15/2023 01/10/2024 Diarrhea 11/15/2023 11/22/2023 Dizziness 11/15/2023 11/22/2023 Sepsis due to Escherichia coli 11/15/2023 12/05/2023 Syncope 11/15/2023 11/22/2023 Major depressive disorder, r ecurrent severe without psychotic features 09/05/2023 09/26/2023 Generalized anxiety disorder 09/05/2023 09/26/2023 Atherosclerosis of coronary artery 08/03/2023 01/10/2024 Renal stone 03/21/2023 11/22/2023 Food insecurity 01/02/2023 06/27/2023 Overview: Per [facility] Protocol Hypertensive kidney disease with stage 3b chronic kidney disease 08/29/2022 09/04/2022 Fall 06/30/2022 08/29/2022 Closed fracture of one rib o f right side with routine healing 06/30/2022 09/04/2022 Concussion with no loss of c onsciousness, subsequent encounter 06/30/2022 09/04/2022 Medical home patient encounter 02/08/2022 05/20/2022 Controlled substance agreement terminated 10/20/2021 11/22/2023 Migraine without aura, not refractory 08/20/2021 01/10/2024 Body mass index (BMI) of 45. 0 to 49.9 in adult 05/31/2021 06/21/2021 Overview: Per Obesity protocol - Per Obesity protocol - Per Obesity protocol - - SVT (supraventricular tachycardia) 12/02/2020 10/20/2021 Body mass index (BMI) of 50. 0 to 59.9 in adult 08/04/2020 06/03/2021 Overview: Per Obesity protocol - Per Obesity protocol - - MILAN (generalized anxiety disorder) 06/20/2020 10/20/2021 History of COVID-19 03/27/2020 12/23/19 Overview (10/13/2020): Feb 2020 Stage 3a chronic kidney disease 12/30/2019 03/08/2022 Overview: Per CKD protocol Moderate aortic stenosis 10/09/201910/2024 Assessment & Plan (01/22/2024 5:16 PM EST): Orders: DURABLE MEDICAL EQUIPMENT Moderate episode of recurren t major depressive disorder 10/08/2019 10/20/2021 Voiding difficulty 10/08/2019 Overview (10/08/2019): Saw Dr. Ventura. No treatable patholgoy Body [...] 05/02/2019 Overview: Per Obesity protocol #1 - Gastrointestinal hemorrhage, unspecified 10/17/2017 01/10/2024 Anemia 10/03/2017 01/10/2024 Major depressive disorder, s stephanie episode, unspecified 10/03/2017 01/10/2024 Muscle weakness (generalized) 10/03/2017 01/10/2024 Sleep apnea, unspecified 10/03/2017 MEDICATION USE AGREEMENT 01/04/2017 Body mass index [...] below 140/90 12/12/201111/09 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 07/30/2018 Overview (10/27/2011): Lynn palsy Tinea 06/27/2011 07/30/2018 Mixed urge and stress incontinence 12/15/2008 10/08/2019 ADVANCE DIRECTIVE INFORMATION 06/17/2004 10/08/2019 documented as of this encounter (statuses as of 06/07/2024) Immunizations Name Administration Dates Next Due COVID-19 mRNA, LNP-s, No Pre serve, 2-Dose Series (Rank By Search) 10/05/2020,09/14/2020 Covid-19, Mrna, Lnp-s, Pf, B ivalent, 30 Mcg, IM, 12 yrs and above (Rank By Search) 05/26/2022 Pneumococcal Conjugate Vacc, 13 Valent (Prevnar) 05/30/2016 Pneumococcal Conjugate Vacci ne, 20-valent ([id number]) 04/03/2023 Seasonal Influenza Vac., MDV , IM, 0.5 mL (Fluzone) 10/17/2013,02/22/2013,11/09/2011,12/02 Seasonal Influenza Virus Vac cine, Unspecified Formulation 11/26/2020,12/05/2019,02/27/2019,01/26,11/09/2016,11/10/2015,12/05/2014 ,10/17/2013,02/22/2013,11/09/2011,11/20 Seasonal Influenza, High Dos e, Trivalent, PF, IM (Fluzone HD) 01/10/2024 Seasonal Influenza, PF, 6 M & above, IM , (FluLaval or Fluzone) 10/21/2021,11/26/2020,12/05/2019,02/27,01/26/2018,11/09/2016 Seasonal Influenza, Quadriva lent Hd (Fluzone Hd) 12/07/2022 Seasonal Influenza, Quadriva lent, No Preserve, IM 11/10/2015,12/05/2014 12/06/2015 TDAP (age 10 and older)(Boostrix) 01/05/2022, Zoster [...] you got the money to buy more. Never true 01/11/20 24 Within the past 12 months, t he food you bought just didn't last and you didn't have money to get more. Never true 01/11/2024 Childcare Answer Date Recorded Do you feel overwhelmed with taking care of a child, family member or friend? No 01/11/2024 Does your family need help f inding childcare? (Household - for ages 0-17 years) Not on file 01/11/2024 Clothing Answer Date Recorded Have you been unable to get clothing when it was really needed? Yes 01/11/2024 Is your family able to get c lothes or diapers when needed? (Household - for ages 0-17 years) Not on file 01/11/2024 Personal Safety Answer Date Recorded Do you feel unsafe or have concerns for your saf ety? No 01/11/2024 Do you have concerns for you r family's safety? (Household - for ages 0-17 years) Not on file 01/11/2024 Utilities Answer Date Recorded Do you have trouble paying y our heating, water, or electric bill? No 01/11/2024 Is your family able to pay t he heat, water, or electric bill? (Household - for ages 0-17 years) Not on file 01/11/2024 Does your family have access to good internet? (Household - for ages 0-17 years) Not on file 01/11/2024 Employment Status Answer Date Recorded Are you unemployed or without regular income? No 01/11/2024 Does the household have a re lar source of income? (Household - for ages 0-17 years) Not on file 01/11/2024 Social Connections Answer Date Recorded How often do you feel lonely or isolated from th ose around you? Never 01/11/2024 Financial Resource Strain Answer Date R ecorded Do you have any trouble payi ng for your medications, or do you think you might in the future? No 01/11/2024 Does your family have troubl e paying for medicine? (Household - for ages 0-17 years) Not on file 01/11/2024 Transportation Needs Answer Date Record ed Do you have trouble getting a ride to medical visits or work? (Adult - for ages 18 years and over) Not on file 01/11/2024 Does your family have a hard time getting a ride to doctors visits? (Household - for ages 0-17 years) Not on file 01/11/2024 Has lack of transportation k ept you from medical appointments, meetings, work, or from getting things needed for daily living? Check all that apply. No 01/11/2024 Do you (or your family) have trouble finding or paying for a ride (transportation)? (Household - for ages 0-17 years) Not on file 01/11/2024 Housing Stability Answer Date Recorded Do you currently live in a s helter or have no steady place to sleep at night? No 01/11/2024 Do you think you are at risk of becoming homeless? (Adult - for ages 18 years and over) Not on file 01/11/2024 Does your family worry about paying for your home or becoming homeless? (Household - for ages 0-17 years) Not on file 1 03/12/2023 Are you homeless or worried that you might be in the future? No 01/11/2024 Are you (or your family) rodo eless or worried that you might be in the future? (Household - for ages 0-17 years) Not on file Food Insecurity Answer Date Recorded Do you need food for this week? No 01/11/2024 Are you able to get enough f ood for your family? (Household - for ages 0-17 years) Not on file 01/11/2024 Does your family need food t his week? (Household - for ages 0-17 years) Not on file 01/11/2024 Do you always have enough fo od for your family? (Household - for ages 0-17 years) Not on file 01/11/2024 Food Insecurity Answer Date Recorded Within the past 12 months, y ou worried that your food would run out before you got the money to buy more. Never true 01/11/20 24 Within the past 12 months, t he food you bought just didn't last and you didn't have money to get more. Never true 01/11/2024 Do you need food for this week? 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 Answer Date of Assessment Author No 06/04/2018 12:30 PM EDGrecia Escobar RN * Are you blind or do you have serious difficulty seeing, even when wearing glasses? Answer Date of Assessment Author No 06/04/2018 12:30 PM Grecia Foster RN * Do you have serious difficulty walking or climbing stairs? (5 years old or older) Answer Date of Assessment Author Yes 06/04/2018 12:30 PM Grecia Foster RN * Do you have difficulty dressing or bathing? (5 years old or older) Answer Date of Assessment Author No 06/04/2018 12:30 PM Grecia Foster RN * Because of a physical, mental, or emotional condition, do you have difficulty doing errands alone such as visiting a doctor’s office or shopping? (15 years old or older) Answer Date of Assessment Author No 06/04/2018 12:30 PM Grecia Foster RN documented as of this encounter Mental Status * Because of a physical, mental, or emotional condition, do you have serious difficulty concentrating, remembering, or making decisions? (5 years old or older) Answer Entry Date Author No 06/04/2018 12:30 PM Grecia Foster RN documented in this encounter Progress Notes * Eveline Layne DPM - 06/07/2024 1:23 PM EDT Podiatry Established Note [facility] Name: Caroline Paluino : 1955 Date: 06/07/2024 REASON FOR VISIT: requesting injections of both feet, painful callus to the end of the right secondtoe, difficulty with toenails SUBJECTIVE: This patient is a 69 year old female who presents today for foot care. She is unable totrim her toenails and also has a painful callus to the end of the right second toe. She also complains of left hindfoot pain and right heel pain. She has had injections of both areas which help and she asks for these today. Of note, she also has a dressing on the left lower leg. She has a wound to the leg which is being managed by [facility]. When asked if she has had any issues such as infection, she states it is actively infected and she is on an oral antibiotic. Medical necessity reason: CKD3 Last primary care appointment: 02/29/2024 Nikunj Plascencia MD Past Medical History: Diagnosis Date --- DIABETES --- prediabetes Abdominal pain, lower 11/15/2023 Acute ankle pain 11/15/2023 Acute neck pain 11/15/2023 Acute on chronic diastolic CHF (congestive heart failure) ([facility]) 01/26/2018 Allergic rhinitis Atypical chest pain 11/15/2023 Back pain 11/15/2023 Collazo's palsy left eye palsy Benign neoplasm of colon 11/20/2010 hyperplastic polyps- repeat colonoscopy in 10 years Bicuspid aortic valve 10/09/2019 Bullous pemphigoid 08/17/2016 txt with cellcept Chest pain 11/15/2023 Chronic insomnia 12/22/2020 CKD (chronic kidney disease) stage 3, GFR 30-59 ml/min ([facility]) Compression fracture of body of thoracic vertebra ([facility]) 08/17/2016 Controlled substance agreement terminated 10/20/2021 Current tear of medial cartilage or meniscus of knee left knee Depression with anxiety 10/20/2021 Depressive disorder, not elsewhere classified Diarrhea 11/15/2023 Disorder of adrenal gland ([facility]) 01/26/2018 Dizziness 11/15/2023 Dyslipidemia 10/03/2017 Dyspnea 11/15/2023 Fall 06/30/2022 Female stress incontinence MILAN (generalized [...] of recurrent major depressive disorder (HCC) 10/08/2019 Multiple falls 09/26/2023 Other pulmonary embolism without acute cor pulmonale ([facility]) 07/27/2018 Overflow incontinence Paroxysmal atrial flutter ([facility]) 06/21/2021 Presence of Watchman left atrial appendage closure device 12/19/2022 Recurrent major depressive disorder in remission ([facility]) 01/26/2018 Renal stone 03/21/2023 S/P kyphoplasty 08/17/2016 Sacroiliitis ([facility]) 01/26/2018 Senile osteoporosis 08/29/2017 Spinal stenosis of lumbar region without neurogenic claudication 01/04/2017 Status post total right knee replacement 06/06/2018 Syncope 11/15/2023 Tibial plateau fracture 01/22/2015 ALLERGIES: Review of patient's allergies indicates: Allergen Reactions Egg Yolk Other reaction(s): GI upset Morphine Edema face/lips/tongue Other reaction(s): LEGS SWELL Egg Shells Nausea/vomiting Other reaction(s): GI SYMPTOMS Ibuprofen Other (Please comment) Stomach upset REVIEW OF SYSTEMS: CONSTITUTIONAL: No fever FOCUSED PODIATRIC EXAM: Vascular: Pedal pulses palpable including dorsalis pedis and posterior tibial artery at 2/4 right. Capillary refill time is within normal limits to all toes. Chronic appearing lower extremity edema, left > right. Neurologic: Sensation (light touch) intact to the bilateral foot. No hypersensitivity. Musculoskeletal: Pain reported with palpation of the sinus tarsi, dorsal lateral foot. Pain reported with palpation of the right plantar medial heel. Pain reported with palpation of the right 2nd toe at callus site. Dermatological: Hyperkeratotic skin to the distal aspect of the right 2nd toe. Skin is thin, dry, shiny. Skin is discolored (dark) with varicosities noted. Toenails are thickened and elongated 1-5 bilaterally. Dressing was not removed on the left lower leg. Dry eschar of the left third toe dorsal aspect and right third toe dorsal aspect (left larger than right). Class Findings for Routine Foot Care Class A Findings: None Class B Findings: Advanced trophic changes (at least three of the following): hair growth (decreaseor absence), nail changes (thickening) and pigmentary changes (discoloration) Class C Findings: Edema and Paresthesia (abnormal spontaneous sensations in feet) Modifier: Q9 - 1 Class B Finding and 2 Class C Findings DIAGNOSTIC STUDIES: None ASSESSMENT: 1. Stage 3a chronic kidney disease (HCC) (Primary) 2. Pre-ulcerative calluses x 1 right 2nd toe distal to IP joint 3. Long toenail TA T1 T2 T3 T4 T5 T6 T7 T8 T9 4. Sinus tarsitis of left foot 5. Plantar fasciitis, right 6. Eschar of toe PLAN: Procedure: After prepping the area with alcohol and allowing to dry, the hyperkeratotic lesion to the right 2nd toe was sharply pared of all hyperkeratotic skin without incident. This was performed with a #15 blade. An electrical umbrella bur was used to reduce any remaining edges. Patient tolerated well and noted improvement following procedure. Procedure: After mild cleansing and drying of feet, toenails 1-5 bilaterally were trimmed to appropriate length with sterile nail cutters. I advised against steroid injections today as she has an infected open wound to the left lower leg.She expressed understanding. She has eschars to her toes which I assume are being followed by [facility].I recommended betadine to the toes daily which it seems she is doing. Follow up: 3 month Eveline Layne DPM 06/07/2024 1:27 PM Podiatry [facility] [address] [place] [id number] documented in this encounter Nursing Notes * Dougie Hua MED ASSIST - 06/07/2024 1:09 PM EDT Pt here for routine nail care and injections. Pt is on cephalexin for the wound on her left leg documented in this encounter Plan of Treatment Upcoming Encounters Date Type Department Care Team (Late st Contact Info) Description 07/09/2024 1:20 PM EDT Office Visit Family Practice [facility] [address] [place] [id number] Nikunj Plascencia MD [address] [address] 09/03/2024 2:00 PM EDT Office Visit Cardiology, [facility] [address] [phone] Gloria Shirley CRNP [address] [place] [address] 09/06/2024 1:00 PM EDT Office Visit Podiatry [facility] [address] [place] [address] Eveline Layne, DPGeetha [address] [facility] [place] [address] 11/25/2024 2:00 PM EDT Office Visit Dermatology [facility] [address] [place] [address] Cyril Borges MD [address] [place] [address] 11/26/2024 3:00 PM EDT Office Visit Nephrology, [facility] [address] [facility] [place] [address] Geovanni Linder MD [address] [facility] [place] [address] Scheduled Procedures Name Priority Associated Diagnoses Date/Ti me COLONOSCOPY FLEXIBLE PROXIMA L DIAGNOSTIC Recall History of colonic polyps Health Maintenance Due Date Last Done Comments Cologuard 2002 Sigmoidoscopy 2002 HOME BP CUFF VALIDATION YEARLY 04/02/2020 04/02/2019 Fecal Occult Blood Test 03/10/2022 03/10/19, 03/10/2021, 03/10/2021, Additional history exists Mammogram 11/30/2022 11/30/2021, 05/22, 06/10/2021, Additional history exists Depression Monitoring 12/09/2022 12/09/2021 Adult Wellness Visit 05/15/2023 CKD PHOS USE SMARTSET 72041 06/11/202305/22, 01/07/2020, 12/06/2019, Additional history exists Zoster Vaccines (2 of 2) 08/22/2023 06/27/2023 COVID-19 Vaccine ( season) 2023 05/26/2022, 10/05/2020, 09/14/2020 DXA Scan 12/01/2023 11/30/2021, 08/21, 08/29/2017, Additional history exists *BISPHONATE OR OTHER ACCEPTABLE MEDICATION NEEDED FOR OSTEOPOROSIS (REFER TO SMARTSET #1146) 01/21/2024 CKD HGB USE SMARTSET 35498 04/27/202404/27, 04/28/2023, 03/31/2023, Additional history exists Albumin/Creatinine Ratio 09/04/2024 024, 06/13/2022, 03/02/2016 GFR 09/05/2024 03/08/2024, 05/22, 04/28/2023, Additional history exists Colonoscopy 03/24/2026 03/24/2021, 08/22, 09/19/2018, Additional history exists Colorectal Cancer Screening 03/24/2026 Diabetes Screening 03/08/2027 03/08/2024, 0 06/17/2023, 04/28/2023, Additional history exists Lipid Panel 04/27/2028 04/28/2023, 10/2023, 01/11/2021, Additional history exists DTap/Tdap Vaccines (3 - Td or Tdap) 01/06/2032 01/05/2022, 11/18/2011 Pap Smear Discontinued 08/05/2019, 07/21, 03/01/2010 RETIRED - COLONOSCOPY-EVERY 5 YRS AGES 18-100 Discontinued 03/24/2021, 09/19/2018, 09/19/2018, Additional history exists Pneumococcal Vaccine: 50+ Years Completed 04/03/2023, 05/30/2016 VITAMIN D LEVEL ONCE IN A LIFETIME-USE SMARTSET# 63177 Completed 06/17/2023, 06/10/2022, 05/28/2021, Additional history exists Influenza Vaccine (FLU shot) Completed 01/10/2024, 12/07/2022, 10/21/2021, Additional history exists HPV (Gardasil) Vaccine Aged Out No lo nger eligible based on patient's age to complete this topic Hepatitis B Vaccine Aged Out No longe r eligible based on patient's age to complete this topic MENINGOCOCCAL (MENACTRA/MENVEO) Aged Out No longer eligible based on patient's age to complete this topic Meningitis B Vaccine (Bexsero/Trumemba) Aged Out No longer eligible based on patient's age to complete this topic documented as of this encounter Medical Devices Implanted Type Area [employer] Device Identifier Shelf Expiration Date Model / Serial / Lot Kyphon Hv-R Bone Cement Implanted:Qty: 1 on 08/17/2016 by Michael Smith MD at [place] [facility] [place] N/A: Spine Thoracic 03/19/2019 C01A / C01A / [id number] Cement Bone Lv G 1119-140-01 - [id number] Implanted:Qty: 1 on 06/04/2018 by Duc Kimble MD at OR [facility] Right: Knee [employer] 11/19/2020-1119-1 40- / / [id number] Cement Bone Lv G 1119-140-01 - [id number] Implanted:Qty: 1 on 06/04/2018 by Duc Kimble MD at OR [facility] Right: Knee [employer] 06/19/20201119-1 40- / / [id number] Persona The Personlized Knee System Vivacit-E Highly Crosslinked Polyethylene All-Poly Patella Cemented Implanted:Qty: 1 on 06/04/2018 by Duc Kimble MD at OR [facility] Right: Knee [employer] 06/19/2022 42-5402-0 00-35 / / [id number] Tibia Stem 5 Deg Rt Size F - [id number] Implanted:Qty: 1 on 06/04/2018 by Duc Kimble MD at OR [facility] Right: Knee [employer] 10/21/2027 42-5320-0 75-02 / / [id number] Persona The Personalized Knee System Femur Cemented Cr Standard Implanted:Qty: 1 on 06/04/2018 by Duc Kimble MD at OR [facility] Right: Knee [employer] 11/20/2027 42-5026-0 62-02 / / [id number] Persona The Personalized Knee System Vivacit-E Highly Crosslinked Polyethylene Articular Surface Medial Congruent Implanted:Qty: 1 on 06/04/2018 by Duc Kimble MD at OR [facility] Right: Knee [employer] 11/19/2022 42-5221-0 07-12 / / [id number] Device Watchman Flx 24mm - [id number] Implanted:Qty: 1 on 10/06/2022 by Austin Penaloza MD at [facility] [place] [employer] : INTRV CARD [id number] 03/07/2025 [id number] 40 / / [id number] Device Watchman Flx 27mm - [id number] Implanted:Qty: 1 on 10/06/2022 by Austin Penaloza MD at [facility] [place] [employer] : INTRV CARD [id number] 08/07/2025 [id number] 70 / / [id number] documented as of this encounter Visit Diagnoses Diagnosis Presence of Watchman left atrial appendage closure device- Primary Paroxysmal atrial flutter (HCC) Atrial flutter 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 heart failure and stage 3b chronic kidney disease (HCC)- Primary Primary osteoarthritis of both hips Primary localized osteoarthrosis, pelvic region and thigh Senile osteoporosis Adrenal cortical adenocarcinoma, unspecified laterality ([facility]) Ambulatory dysfunction Moderate aortic stenosis Aortic valve disorders PAF (paroxysmal atrial fibrillation) ([facility]) Atrial fibrillation BMI 50.0-59.9, adult (HCC)- Primary Body Mass Index 50.0-59.9, adult Hypertensive heart and kidney disease with chronic diastolic congestive heart failure and stage 3b chronic kidney disease (HCC) PAF (paroxysmal atrial fibrillation) ([facility]) Atrial fibrillation Bullous pemphigoid Pemphigoid Major depressive disorder, recurrent severe without psychotic features (HCC) Major depressive disorder, recurrent episode, severe, without mention of psychotic behavior Adrenal cortical adenocarcinoma, unspecified laterality ([facility]) Migraine with aura and without status migrainosus, not intractable Migraine with aura, without mention of intractable migraine without mention of status migrainosus Generalized anxiety disorder Senile osteoporosis Stage 3a chronic kidney disease ([facility])- Primary Pre-ulcerative calluses Corns and callosities Long toenail Other specified disease of nail Sinus tarsitis of left foot Plantar fasciitis, right Plantar fascial fibromatosis Eschar of toe Unspecified local infection of skin and subcutaneous tissue documented in this encounter Advance Directives * [...] Power of Attor marcel? No Care Teams Last Repairer Relationship Specialty Start Date End Date Nikunj Plascencia MD [address] [facility] [place] [address] PCP - General Family Medicine 10/31/19 documented as of this encounter
--- OUTSIDE RECORDS SUMMARY | 2024-06-19 21:59 | External Medical Summary | Summary of Care ---
Author Name Unknown Organization [facility] Address [address] [place] [address] Phone [phone] Care Team Providers Care Detention Officer Name Role Phone Nikunj Plascencia MD Primary Care Provider [phone] Reason for Visit * Reason Onset Date Comments Precert Approved 06/05/2024 Dupixent Encounter Details Date Type Department Care Team (Late st Contact Info) Description 06/05/2024 Telephone Dermatology [facility] [address] [place] [address] Swetha Guevara, [facility] [address] [address] Precert Approved (Dupixent) Allergies Active Allergy Reactions Criticality Noted Date Comments Egg Shells Nausea/vomiting Medium 06/16/2018 Other reaction(s): GI SYMPTOMS Egg Yolk High 11/29/2019 Other reaction(s): GI upset Ibuprofen Other (Please comment) Medium 07/30/2010 Stomach upset Morphine Edema face/lips/tongue High 08/28/2021 Other reaction(s): LEGS SWELL documented as of this encounter (statuses as of 06/10/2024) Medications OMEGA 3-6-9 FATTY ACIDS PO CAPS [...] 30 g 5 3 Active Saline Nasal Wisdom 0.65 % Nasal Solution ([place]) Q6H 3 Active Clobetasol Propionate 0.05 % [...] with breakfast. 90 Capsule 1 5 Active Hospital, Clinic, or Other Facility Administered Medication Ordered Dose Route Frequency Start Date End Date Status atropine sulfate inj 0.4 mgIndications:Chest pain, unspecified type 0.4 mg IV PUSH PRN 01/29/2021 Active documented as of this encounter (statuses as of 06/10/2024) Active Problems Problem Noted Date Diagnosed Date [...] (08/17/2022): Added automatically from request for surgery [id number] Assessment & Plan (03/10/2024 8:29 PM EST): [...] as of this encounter (statuses as of 06/10/2024) Resolved Problems Problem Noted Date Diagnosed Date [...] 12/12/201111/09 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 07/30/2018 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 Tinea 06/27/2011 07/30/2018 Mixed urge and stress incontinence 12/15/2008 10/08/2019 ADVANCE DIRECTIVE INFORMATION 06/17/2004 10/08/2019 documented as of this encounter (statuses as of 06/10/2024) Immunizations Name Administration Dates Next Due COVID-19 mRNA, LNP-s, No Pre serve, 2-Dose Series (Mobile [employer]) 10/05/2020,09/14/2020 Covid-19, Mrna, Lnp-s, Pf, B ivalent, 30 Mcg, IM, 12 yrs and above (Mobile A[employer]) 05/26/2022 Pneumococcal Conjugate Vacc, 13 Valent (Prevnar) 05/30/2016 Pneumococcal Conjugate Vacci ne, 20-valent ([id number]) 04/03/2023 Seasonal Influenza Vac., MDV , IM, [...] 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 Answer Date of Assessment Author No 06/04/2018 12:30 PM Grecia Foster RN * Are you blind or do you have serious difficulty seeing, even when wearing glasses? Answer Date of Assessment Author No 06/04/2018 12:30 PM Grecia Foster RN * Do you have serious difficulty walking or climbing stairs? (5 years old or older) Answer Date of Assessment Author Yes 06/04/2018 12:30 PM EDT Grecia Hernandez RN * Do you have difficulty dressing or bathing? (5 years old or older) Answer Date of Assessment Author No 06/04/2018 12:30 PM EDT Grecia Hernandez RN * Because of a physical, mental, or emotional condition, do you have difficulty doing errands alone such as visiting a doctor’s office or shopping? (15 years old or older) Answer Date of Assessment Author No 06/04/2018 12:30 PM EDT Grecia Hernandez RN documented as of this encounter Mental Status * Because of a physical, mental, or emotional condition, do you have serious difficulty concentrating, remembering, or making decisions? (5 years old or older) Answer Entry Date Author No 06/04/2018 12:30 PM EDT Grecia Hernandez RN documented in this encounter Miscellaneous Notes * Telephone Encounter - Swetha Guevara RPh - 06/05/2024 1:10 PM EDT Re-auth per [facility] Dermatology Pre-Cert Request Medication/Disease State Information: Medication: Dupilumab (Dupixent) Maintenance: 300mg/2ml Pen - 300mg every two weeks (Day Supply: 4mL per 28 days) Diagnosis (including ICD-10): Atopic dermatitis - Atopic dermatitis, unspecified L20.9 Site of Care: specialty medication - route to [id number]. Referral to pharmacist for: No Pharmacist involvement needed See corresponding visit note(s) for additional supporting clinical information. Administration Location if Injection: Patient Administered at Home Is the patient in a facility?: No Office Information: Prescriber: Dr. Borges documented in this encounter Plan of Treatment Upcoming Encounters Date Type Department Care Team (Late st Contact Info) Description 07/09/2024 1:20 PM EDT Office Visit [facility] [address] [address] Nikunj Plascencia MD [address] [address] 09/03/2024 2:00 PM EDT Office Visit Cardiology, [facility] [address] [place] [address] Gloria Shirley CRNP [address] [place] [address] 09/06/2024 1:00 PM EDT Office Visit Podiatry [facility] [address] [place] [address] Eveline Layne, JAMAL [address] [place], [place] [id number] 11/25/2024 2:00 PM EDT Office Visit Dermatology [facility] [address] [place] [address] Cyril Borges MD [address] [place] [address] 11/26/2024 3:00 PM EDT Office Visit Nephrology, [facility] [address] [facility] [place] [address] Geovanni Linder MD [address] [facility] [place] [address] Scheduled Procedures Name Priority Associated Diagnoses Date/Ti me COLONOSCOPY FLEXIBLE PROXIMA L DIAGNOSTIC Recall History of colonic polyps Health Maintenance Due Date Last Done Comments Cologuard 2002 Sigmoidoscopy 2002 HOME BP CUFF VALIDATION YEARLY 04/02/2020 04/02/2019 Fecal Occult Blood Test 03/10/2022 03/10/19, 03/10/2021, 03/10/2021, Additional history exists Mammogram 11/30/2022 11/30/2021, 04/2 02/2021, 06/10/2021, Additional history exists Depression Monitoring 12/09/2022 12/09/2021 Adult Wellness Visit 05/15/2023 CKD PHOS USE SMARTSET 05332 06/11/202305/22, 01/07/2020, 12/06/2019, Additional history exists Zoster Vaccines (2 of 2) 08/22/2023 06/27/2023 COVID-19 Vaccine (2023- season) 2023 05/26/2022, 10/05/2020, 09/14/2020 DXA Scan 12/01/2023 11/30/2021, 08/21, 08/29/2017, Additional history exists *BISPHONATE OR OTHER ACCEPTABLE MEDICATION NEEDED FOR OSTEOPOROSIS (REFER TO SMARTSET #1146) 01/21/2024 CKD HGB USE SMARTSET 86736 04/27/202404/27, 04/28/2023, 03/31/2023, Additional history exists Albumin/Creatinine [...] D LEVEL ONCE IN A LIFETIME-USE SMARTSET# 80681 Completed 06/17/2023, 06/10/2022, 05/28/2021, Additional history exists [...] this encounter Medical Devices Implanted Type Area Cit[employer] P[employer] Device Identifier Shelf Expiration Date Model / Serial / Lot Kyphon Hv-R Bone Cement Implanted:Qty: 1 on 08/17/2016 by Michael Smith MD [place] [facility] [place]: Spine Thoracic 03/19/2019 C01A / C01A / [id number] Cement Bone Lv G 1119-140-01 - [id number] Implanted:Qty: 1 on 06/04/2018 by Duc Kimble MD at OR [facility] Right: Knee [employer] 11/19/2020-1119-1 40-01 / / [id number] Cement Bone Lv G 1119-140-01 - [id number] Implanted:Qty: 1 on 06/04/2018 by Duc Kimble MD at OR [facility] Right: [employer]nee [employer] 06/19/2020-1119-1 40-01 / / [id number] Persona The Personlized Knee System Vivacit-E Highly Crosslinked Polyethylene All-Poly Patella Cemented Implanted:Qty: 1 on 06/04/2018 by Duc Kimble MD at OR [facility] Right: [employer]nee [employer] 06/19/2022 42-5402-0 00-35 / / [id number] Tibia Stem 5 Deg Rt Size F - [id number] Implanted:Qty: 1 on 06/04/2018 by Duc Kimble MD at OR [facility] Right: [employer]nee [employer] 10/21/2027 42-5320-0 75-02 / / [id number] Persona [employer] Personalized Knee System Femur Cemented Cr Standard Implanted:Qty: 1 on 06/04/2018 by Duc Kimble MD at OR [facility] Right: [employer]nee [employer] 11/20/2027 42-5026-0 62- [id number] Persona The Personalized Knee System Vivacit-E Highly Crosslinked Polyethylene Articular Surface Medial Congruent Implanted:Qty: 1 on 06/04/2018 by Duc Kimble MD at OR [facility] Right: [employer]nee [employer] 11/19/2022 42-5221-0 07- [id number] Device Watchman Flx 24mm - [id number] Implanted:Qty: 1 on 10/06/2022 by Austin Penaloza MD at [facility] [place] [employer] : INTRV CARD [id number] 03/07/2025 [id number] 40 / / [id number] Device Watchman Flx 27mm - [id number] Implanted:Qty: 1 on 10/06/2022 by Austin Penaloza MD at [facility] [place] [employer] : INTRV CARD [id number] 08/07/2025 [id number] 70 / / [id number] documented as of this encounter Advance Directives [...] Power of Attor marcel? No Care Teams Detention Officer Relationship Specialty Start Date End Date Nikunj Plascencia MD [address] [place] [address] PCP - General Family Medicine 10/31/19 documented as of this encounter
--- OUTSIDE RECORDS SUMMARY | 2024-06-19 21:59 | External Medical Summary | Summary of Care ---
Author Name Unknown Organization [facility] Address [address] [place] [address] Phone [phone] Care Team Providers Care Wood Carver Hand Name Role Phone Lambert Plascencia MD Primary Care Provider [phone] Reason for Visit * Reason Onset Date Comments Medication Refill 06/15/2024 Encounter Details Date Type Department Care Team (Late st Contact Info) Description 06/15/2024 [facility] Pharm[facility] [address] [facility] [address] Lambert Plascencia MD [address] [facility] [place] [address] Allergies Active Allergy Reactions Criticality Noted Date Comments Egg Shells Nausea/vomiting Medium 06/16/2018 Other reaction(s): GI SYMPTOMS Egg Yolk High 11/29/2019 Other reaction(s): GI upset Ibuprofen Other (Please comment) Medium 07/30/2010 Stomach upset Morphine Edema face/lips/tongue High 08/28/2021 Other reaction(s): LEGS SWELL documented as of this encounter (statuses as of 06/17/2024) Medications OMEGA 3-6-9 FATTY ACIDS PO CAPS once daily Activ e B-12 1000 MCG PO TBCR Take by mouth 1 Tablet daily . Active VITAMIN D 1000 UNITS PO CAPS Take 1 Capsule by mouth in the morning. 60 Cap 0 10/19/19 13 Active COLACE 100 MG PO CAPS 1 am & 1 at bedtime Active Folic Acid 800 MCG TabletIndications: Primary osteoarthritis of right knee Take 1 Tab by mouth daily. 30 Tab 4 05/04/19 19 Active vitamin c (ASCORBIC ACID) 250 MG TabletIndications: Primary osteoarthritis of right knee Take 1 Tab by mouth daily. 30 Tab 3 05/04/19 19 Active busPIRone HCl 10 MG Oral Tablet (Buspar) Take 1 Tablet by mouth in the morning and 1 Tablet before bedtime. 06/11/19 21 Active Nitroglycerin 0.4 MG Sublingual Tablet Sublingual (Nitrostat) Place 1 Tablet under the tongue every 5 minutes as needed for Pain, Chest. Up to 3 in 15 minutes. 25 Tablet 11 03/01/19 22 Active Calcipotriene 0.005 % External Cream (Dovonex) Apply 2x daily to rash on face/trunk/ar ms until resolved, then when flaring 100 g 2 09/28/19 22 Active Betamethasone Dipropionate 0.05 % External OintmentIndication s:Rash and nonspecific skin eruption Apply 2x daily to blisters and rash on face/trunk (back)/arms/l egs until resolved, then when flaring 100 g 12/29/19 22 Active Clotrimazole 1 % External Cream (Lotrimin) Apply topically to affected area as needed for Itching. 30 g 5 05/10/19 23 Active Saline Nasal [place] 0.65 % Nasal Solution (Cata[place]oula) Q6H 06/07/19 23 Active Clobetasol Propionate 0.05 % External Ointment (Temovate) Apply thin film to affected area at body twice daily as needed for up to 2 weeks at a time. Not for use at face, armpits, groin. 60 g 2 09/08/19 23 Active Aspirin 81 MG Oral Tablet Chewable Take 1 Tablet by mouth in the morning. Do not start before October 07, 2022. 34 Tablet 11 10/08/19 23 Active Doxepin HCl 25 MG Oral Capsule (SINEquan) Take 1 Capsule by mouth at bedtime. 03/29/19 24 Active Tacrolimus 0.1 % External Ointment Apply thin film to affected areas at face twice daily as needed. 60 g 2 06/02/19 24 Active traZODone HCl 100 MG Oral Tablet (Desyrel) Active oxyBUTYnin Chloride ER 5 MG Oral Tablet Extended Release 24 Hour (Ditropan XL)Indications:Dys uria Take 1 Tablet by mouth in the morning. 90 Tablet 3 06/28/19 24 Active Atorvastatin Calcium 80 MG Oral Tablet (Lipitor) Take 1 Tablet by mouth in the morning. 90 Tablet 3 06/27/19 24 Active cycloSPORINE 0.05 % Ophthalmic Emulsion (Restasis) Instill 1 drop in each eye every 12 hours. 5.5 mL 5 09/13/19 24 Active Saccharomyces boulardii 250 MG Oral Capsule (Florastor) Take 1 Capsule by mouth in the morning and 1 Capsule at noon and 1 Capsule in the evening. Active Dupixent 300 MG/2ML Subcutaneous Solution Auto-injector (Dupilumab) Inject 2 mL (1 pen) under the skin every 14 days. 4 mL 3 06/12/2024 1:55 PM EDT 11/28/19 24 Active Metoprolol Succinate ER 50 MG Oral Tablet Extended Release 24 Hour (toPROL XL) Take 0.5 Tablets by mouth in the morning and 0.5 Tablets before bedtime. 90 Tablet 3 01/22/20 24 Active Furosemide 20 MG Oral Tablet (Lasix)Indications :Severe aortic stenosis,Left heart failure with preserved left ventricular function (HCC) Take 1 Tablet by mouth in the morning. 90 Tablet 3 02/26/19 25 Active oxyCODONE HCl 5 MG Oral Tablet (Oxy IR)Indications:Spi nal stenosis of lumbar region without neurogenic claudication Take 1 Tablet by mouth every 6 hours as needed for Pain, Severe. 12 Tablet 02/27/19 25 Active Doxycycline Hyclate 100 MG Oral Tablet Take 1 Tablet by mouth in the morning and 1 Tablet before bedtime. X 10 days for wound infection. 03/18/19 25 Active SUMAtriptan Succinate 25 MG Oral Tablet (Imitrex) Take 2 tablets at onset of migraine and one tablet every 2 hours as needed, not more than 5 tablets in 24 hours 16 Tablet 3 05/02/19 25 Active DULoxetine HCl 60 MG Oral Capsule Delayed Release Particles (Cymbalta) Take 2 Capsules by mouth in the morning. 60 Capsule 5 05/02/19 25 Active Memantine HCl 10 MG Oral Tablet (Namenda)Indicatio ns:Spinal stenosis of lumbar region without neurogenic claudication Take 1 tablet by mouth twice daily 60 Tablet 5 05/17/19 25 Active Tamsulosin HCl 0.4 MG Oral Capsule (Flomax) Take by mouth daily. 11/04/19 24 Active Acitretin 10 MG Oral Capsule Take 1 capsule daily with breakfast. 90 Capsule 1 06/01/19 25 Active Cephalexin 500 MG Oral Capsule (Keflex) Take 1 Capsule by mouth in the morning and 1 Capsule at noon and 1 Capsule before bedtime. 06/01/19 25 Active Pregabalin 100 MG Oral Capsule (Lyrica) Take 1 Capsule by mouth in the morning and 1 Capsule at noon and 1 Capsule before bedtime. 90 Capsule 3 06/18/19 25 Active Pregabalin 100 MG Oral Capsule (Lyrica) Take 1 Capsule by mouth in the morning and 1 Capsule at noon and 1 Capsule before bedtime. 90 Capsule 3 02/28/19 25 025 Discontin ued(Refil l) Hospital, Clinic, or Other Facility Administered Medication Ordered Dose Route Frequency Start Date End Date Status atropine sulfate inj 0.4 mgIndications:Chest pain, unspecified type 0.4 mg IV PUSH PRN 01/29/2021 Active documented as of this encounter (statuses as of 06/17/2024) Active Problems Problem Noted Date Diagnosed Date [...] (08/17/2022): Added automatically from request for surgery [id number] Assessment & Plan (03/10/2024 8:29 PM EST): [...] as of this encounter (statuses as of 06/17/2024) Resolved Problems Problem Noted Date Diagnosed Date [...] 12/12/201111/09 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 07/30/2018 Overview (10/27/2011): [place] palsy Tinea 06/27/2011 07/30/2018 Mixed urge and stress incontinence 12/15/2008 10/08/2019 ADVANCE DIRECTIVE INFORMATION 06/17/2004 10/08/2019 documented as of this encounter (statuses as of 06/17/2024) Immunizations Name Administration Dates Next Due COVID-19 mRNA, LNP-s, No Pre serve, 2-Dose Series ([employer]) 10/05/2020,09/14/2020 Covid-19, Mrna, Lnp-s, Pf, B ivalent, 30 Mcg, IM, 12 yrs and above ([employer]) 05/26/2022 Pneumococcal Conjugate Vacc, 13 Valent (Prevnar) 05/30/2016 Pneumococcal Conjugate Vacci ne, 20-valent ([id number]) 04/03/2023 Seasonal Influenza Vac., MDV , IM, [...] 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 Answer Date of Assessment Author No 06/04/2018 12:30 PM EDT Grecia Hernandez RN * Are you blind or do you have serious difficulty seeing, even when wearing glasses? Answer Date of Assessment Author No 06/04/2018 12:30 PM MARGARETT Grecia Hernandez RN * Do you have serious difficulty [...] Grecia Foster RN documented in this encounter Miscellaneous Notes * Telephone Encounter - Lambert Plascencia MD - 06/17/2024 10:32 AM EDTSigned Prescriptions: Disp Refills Pregabalin 100 MG Oral Capsule (Lyrica) 90 Cap*3 Sig: Take 1 Capsule by mouth in the morning and 1 Capsule at noon and 1 Capsule before bedtime. Authorizing Provider: LAMBERT PLASCENCIA * Telephone Encounter - Maria Ines Desai [facility] - 06/17/2024 7:57 AM EDT Pending Prescriptions: Disp Refills Pregabalin 100 MG Oral Capsule (Lyrica) 90 Cap*3 Sig: Take 1 Capsule by mouth in the morning and 1 Capsule at noon and 1 Capsule before bedtime. documented in this encounter Plan of Treatment Upcoming Encounters Date Type Department Care Team (Late st Contact Info) Description 07/09/2024 1:20 PM EDT Office Visit Family Practice [facility] [address] [facility] [place] [address] Lambert Plascencia MD [address] [place] [address] 09/03/2024 2:00 PM EDT Office Visit Cardiology, [facility] [address] [place] [address] Gloria Shirley CRNP [address] [facility] [place] [address] 09/06/2024 1:00 PM EDT Office Visit Podiatry [facility] [address] [facility] [place] [phone] Eveline Layne, DPGeetha [address] [facility] [place] [address] 11/25/2024 2:00 PM EDT Office Visit Dermatology [facility] [address] [place], [place] [id number] Cyril Borges MD [address] [place], [place] [id number] 11/26/2024 3:00 PM EDT Office Visit NephrologyJason [address] [place] [address] Geovanni Linder MD [address] [facility] [place] [address] Scheduled Procedures Name Priority Associated Diagnoses Date/Ti [...] Wellness Visit 05/15/2023 CKD PHOS USE SMARTSET 67754 06/11/202305/22, 01/07/2020, 12/06/2019, Additional history exists Zoster Vaccines (2 of 2) 08/22/2023 06/27/2023 COVID-19 Vaccine ( season) 2023 05/26/2022, 10/05/2020, 09/14/2020 DXA Scan 12/01/2023 11/30/2021, 08/21, 08/29/2017, Additional history exists *BISPHONATE OR OTHER ACCEPTABLE MEDICATION NEEDED FOR OSTEOPOROSIS (REFER TO SMARTSET #1146) 01/21/2024 CKD HGB USE SMARTSET 12733 04/27/202404/27, 04/28/2023, 03/31/2023, Additional history exists Albumin/Creatinine Ratio 09/04/2024 024, 06/13/2022, 03/02/2016 GFR 09/05/2024 03/08/2024, 05/22, 04/28/2023, Additional history exists Colonoscopy 03/24/2026 03/24/2021, 08/22, 09/19/2018, Additional history exists Colorectal Cancer Screening 03/24/2026 Diabetes Screening 03/08/2027 03/08/2024, 0 06/17/2023, 04/28/2023, Additional history exists Lipid Panel 04/27/2028 04/28/2023, 0210/2023, 01/11/2021, Additional history exists DTap/Tdap Vaccines (3 - Td or Tdap) 01/06/2032 01/05/2022, 11/18/2011 Pap Smear Discontinued 08/05/2019, 07/21, 03/01/2010 RETIRED - COLONOSCOPY-EVERY 5 YRS AGES 18-100 Discontinued 03/24/2021, 09/19/2018, 09/19/2018, Additional history exists Pneumococcal Vaccine: 50+ Years Completed 04/03/2023, 05/30/2016 VITAMIN D LEVEL ONCE IN A LIFETIME-USE SMARTSET# 79002 Completed 06/17/2023, 06/10/2022, 05/28/2021, Additional history exists [...] this encounter Medical Devices Implanted Type Area Marine Extension Agent Device Identifier Shelf Expiration Date Model / Serial / Lot Kyphon Hv-R Bone Cement Implanted:Qty: 1 on 08/17/2016 by Michael Smith MD at OR [facility] N/A: Spine Thoracic 03/19/2019 C01A / C01A / [id number] Cement Bone Lv G 1119-140-01 - [id number] Implanted:Qty: 1 on 06/04/2018 by Duc Kimble MD at OR [facility] Right: Knee [employer] 11/19/2020 00-1119-1 40-01 / / [id number] Cement Bone Lv G 1119-140-01 - [id number] Implanted:Qty: 1 on 06/04/2018 by Duc Kimble MD at OR [facility] Right: Knee [employer] 06/19/2020 00-1119-1 40-01 / / [id number] Persona The Personlized Knee System Vivacit-E Highly Crosslinked Polyethylene All-Poly Patella Cemented Implanted:Qty: 1 on 06/04/2018 by Duc Kimble MD at OR [facility] Right: Knee [employer] 06/19/2022 42-5402-0 00-35 / / [id number] Tibia Stem 5 Deg Rt Size F - [id number] Implanted:Qty: 1 on 06/04/2018 by Duc Kimble MD at OR [facility] Right: Knee [employer] 10/21/2027 42-5320-0 75-02 / / [id number] Person[employer] Personalized Knee System Femur Cemented Cr Standard Implanted:Qty: 1 on 06/04/2018 by Duc Kimble MD at OR [facility] Right: Knee [employer] 11/20/2027 42-5026-0 62-02 / / [id number] [employer] Personalized Knee System Vivacit-E Highly Crosslinked Polyethylene Articular Surface Medial Congruent Implanted:Qty: 1 on 06/04/2018 by Duc Kimble MD at OR [facility] Right: Knee [employer] 11/19/2022 42-5221-0 07-12 / / [id number] Device Watchman Flx 24mm - [id number] Implanted:Qty: 1 on 10/06/2022 by Austin Penaloza MD at [facility] [employer] : INTRV CARD [id number] 03/07/2025 [id number] / / [id number] Device Watchman Flx 27mm - [id number] Implanted:Qty: 1 on 10/06/2022 by Austin Penaloza MD at [facility] [employer] : INTRV CARD [id number] 08/07/2025 [id number] / / [id number] documented as of this encounter Advance Directives [...] Power of Attor marcel? No Care Teams Wood Carver Hand Relationship Specialty Start Date End Date Lambert Plascencia MD [address] [place] [address] PCP - General Family Medicine 10/31/19 documented as of this encounter
--- OUTSIDE RECORDS SUMMARY | 2024-06-19 21:59 | External Medical Summary | Summary of Care ---
Author Name Unknown Organization [facility] Address [address] [place] [address] Phone [phone] Care Team Providers Care Diamond Sizer And Grader Name Role Phone Nikunj Plascencia MD Primary Care Provider [phone] Reason for Visit * Reason Comments Skin Check Lesion Lesion on left lower leg Encounter Details Date Type Department Care Team (Late st Contact Info) Description 05/31/2024 2:15 PM EDT Office Visit Dermatology [facility] [address], [place] [id number] Cyril Borges MD [address] [place], [place] [id number] Dermatosis*; Dermatitis; Encounter for therapeutic drug monitoring Allergies Active Allergy Reactions Criticality Noted Date Comments Egg Shells Nausea/vomiting Medium 06/16/2018 Other reaction(s): GI SYMPTOMS Egg Yolk High 11/29/2019 Other reaction(s): GI upset Ibuprofen Other (Please comment) Medium 07/30/2010 Stomach upset Morphine Edema face/lips/tongue High 08/28/2021 Other reaction(s): LEGS SWELL documented as of this encounter (statuses as of 06/19/2024) Medications OMEGA 3-6-9 FATTY ACIDS PO CAPS [...] g 5 05/10/19 23 Active Saline Nasal [place] 0.65 % Nasal Solution ([place]) Q6H 06/07/19 23 Active Clobetasol Propionate 0.05 [...] and 1 Capsule in the evening. Active Metoprolol Succinate ER 50 MG Oral [...] breakfast. 90 Capsule 1 06/01/19 25 Active Dupixent 300 MG/2ML Subcutaneous Solution Auto-injector (Dupilumab) Inject 2 mL under the skin every 14 days. 4 mL 3 06/20/19 25 Active Acitretin 10 MG Oral Capsule Take 1 capsule daily with breakfast. 90 Capsule 1 02/16/20 23 025 Discontin ued(Refil l) Dupixent 300 MG/2ML Subcutaneous Solution Auto-injector (Dupilumab) Inject 2 mL (1 pen) under the skin every 14 days. 4 mL 3 06/12/2024 1:55 PM EDT 11/28/19 24 025 Discontin ued(Refil l) Pregabalin 100 MG Oral Capsule (Lyrica) Take [...] as of this encounter (statuses as of 06/19/2024) Active Problems Problem Noted Date Diagnosed Date [...] (08/17/2022): Added automatically from request for surgery [id number] Assessment & Plan (03/10/2024 8:29 PM EST): [...] as of this encounter (statuses as of 06/19/2024) Resolved Problems Problem Noted Date Diagnosed Date [...] 06/20/2020 10/20/2021 History of COVID-19 03/27/2020 12/23/19 21 Overview (10/13/2020): Feb 2020 Stage 3a chronic [...] 12/12/201111/09 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 07/30/2018 Overview (10/27/2011): Wittman palsy Tinea 06/27/2011 07/30/2018 Mixed urge and stress incontinence 12/15/2008 10/08/2019 ADVANCE DIRECTIVE INFORMATION 06/17/2004 10/08/2019 documented as of this encounter (statuses as of 06/19/2024) Immunizations Name Administration Dates Next Due COVID-19 mRNA, LNP-s, No Pre serve, 2-Dose Series (HungerTime) 10/05/2020,09/14/2020 Covid-19, Mrna, Lnp-s, Pf, B ivalent, 30 Mcg, IM, 12 yrs and above ([employer]Time) 05/26/2022 Pneumococcal Conjugate Vacc, 13 Valent (Prevnar) 05/30/2016 Pneumococcal Conjugate Vacci ne, 20-valent ([id number]) 04/03/2023 Seasonal Influenza Vac., MDV , IM, [...] 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 On [employer] [place] look for "DuoDerm Extra Thin" documented in this encounter Progress Notes * Cyril Borges MD - 05/31/2024 2:15 PM EDT Dermatology Clinic Progress Note Subjective: Caroline Paulino is a 69 year old female. Chief Complaint Patient presents with Skin Check Lesion Lesion on left lower leg HPI: Follow up facial discoid dermatosis. Improved with Dupixent and acitretin and calcipotriene. Past Medical History: Past Medical History: Diagnosis Date --- DIABETES --- prediabetes Abdominal pain, lower 11/15/2023 Acute ankle pain 11/15/2023 Acute neck pain 11/15/2023 Acute on chronic diastolic CHF (congestive heart failure) ([facility]) 01/26/2018 Allergic rhinitis Atypical chest pain 11/15/2023 Back pain 11/15/2023 Collazo's palsy left eye palsy Benign neoplasm of colon 11/20/2010 hyperplastic polyps- repeat colonoscopy in 10 years Bicuspid aortic valve 10/09/2019 Bullous pemphigoid 08/17/2016 txt with cellcept Chest pain 11/15/2023 Chronic insomnia 12/22/2020 CKD (chronic kidney disease) stage 3, GFR 30-59 ml/min ([facility]) Compression fracture of body of thoracic vertebra ([facility]) 08/17/2016 Controlled substance agreement terminated 10/20/2021 Current tear of medial cartilage or meniscus of knee left knee Depression with anxiety 10/20/2021 Depressive disorder, not elsewhere classified Diarrhea 11/15/2023 Disorder of adrenal gland ([facility]) 01/26/2018 Dizziness 11/15/2023 Dyslipidemia 10/03/2017 Dyspnea [...] Moderate episode of recurrent major depressive disorder ([facility]) 10/08/2019 Multiple falls 09/26/2023 Other pulmonary embolism without acute cor pulmonale ([facility]) 07/27/2018 Overflow incontinence Paroxysmal atrial flutter ([facility]) 06/21/2021 Presence of Watchman left atrial appendage closure device 12/19/2022 Recurrent major depressive disorder in remission ([facility]) 01/26/2018 Renal stone 03/21/2023 S/P kyphoplasty 08/17/2016 Sacroiliitis ([facility]) 01/26/2018 Senile osteoporosis 08/29/2017 Spinal stenosis of lumbar region without neurogenic claudication 01/04/2017 Status post total right knee replacement 06/06/2018 Syncope 11/15/2023 Tibial plateau fracture 01/22/2015 Patient's medications, allergies, past medical, surgical, social and family histories were reviewedand updated as appropriate. Objective: Physical Exam: General Appearance: Well-appearing, NAD Orientation: AOx3 Mood/Affect: Pleasant, cooperative Scalp/Hair: Normal Head/Face: Discoid plaques Conjunctivae/Lids: Normal Lips: Normal Neck: Normal Chest: Residual scaly papule and plaques Digits/Nails: Normal Assessment/Plan: 1. Facial discoid dermatosis: Much improved -Photos repeated -Continue Dupixent 300 mg SQ I9Nksdz -Continue acitretin 10 mg PO Qday -- recheck lipids at ROV -Continue calcipotriene 0.005% cream BID RTC 6 months Cyril Borges MD Dermatology [address] [address] documented in this encounter Plan of Treatment Upcoming Encounters Date Type Department Care Team (Late st Contact Info) Description 06/19/2024 6:40 PM EDT Office Visit [facility] [address] [address] Maricruz Talavera DO [address] [address] 07/09/2024 1:20 PM EDT Office Visit [facility] [address] [address] Nikunj Plascencia MD [address] [address] 09/03/2024 2:00 PM EDT Office Visit Cardiology, [facility] [address] [place] [phone] Gloria Shirley CRNP [address] [place] [address] 09/06/2024 1:00 PM EDT Office Visit Podiatry [facility] [address] [place] [phone] Eveline Layne, DPM [address] [place] [address] 11/25/2024 2:00 PM EDT Office Visit Dermatology [facility] [address] [place] [address] Cyril Borges MD [address] [place] [address] 11/26/2024 3:00 PM EDT Office Visit Nephrology, [facility] [address] [place] [address] Geovanni Linder MD [address] [facility] [place] [address] Scheduled Procedures Name Priority Associated Diagnoses Date/Ti me COLONOSCOPY FLEXIBLE PROXIMA L DIAGNOSTIC Recall History of colonic polyps Health Maintenance Due Date Last Done Comments Cologuard 2002 Sigmoidoscopy 2002 HOME BP CUFF VALIDATION YEARLY 04/02/2020 04/02/2019 Fecal Occult Blood Test 03/10/2022 03/10/19 22, 03/10/2021, 03/10/2021, Additional history exists Mammogram 11/30/2022 11/30/2021, 05/22, 06/10/2021, Additional history exists Depression Monitoring 12/09/2022 12/09/2021 Adult Wellness Visit 05/15/2023 CKD PHOS USE SMARTSET 67730 06/11/202305/22, 01/07/2020, 12/06/2019, Additional history exists Zoster Vaccines (2 of 2) 08/22/2023 06/27/2023 COVID-19 Vaccine ( season) 2023 05/26/2022, 10/05/2020, 09/14/2020 DXA Scan 12/01/2023 11/30/2021, 08/21, 08/29/2017, Additional history exists *BISPHONATE OR OTHER ACCEPTABLE MEDICATION NEEDED FOR OSTEOPOROSIS (REFER TO SMARTSET #1146) 01/21/2024 CKD HGB USE SMARTSET 06246 04/27/202404/27, 04/28/2023, 03/31/2023, Additional history exists Albumin/Creatinine [...] D LEVEL ONCE IN A LIFETIME-USE SMARTSET# 52706 Completed 06/17/2023, 06/10/2022, 05/28/2021, Additional history exists [...] encounter Medical Devices Implanted Type Area Sand Cutter Operator Device Identifier Shelf Expiration Date Model / Serial / Lot Kyphon Hv-R Bone Cement Implanted:Qty: 1 on 08/17/2016 by Michael Smith MD at OR [facility] N/A: Spine Thoracic 03/19/2019 C01A / C01A / [id number] Cement Bone Lv G 1119-140-01 - [id number] Implanted:Qty: 1 on 06/04/2018 by Duc Kimble MD at OR [facility] Right: Knee [employer] 11/19/2020-1119-1 40-01 / / [id number] Cement Bone Lv G 1119-140-01 - [id number] Implanted:Qty: 1 on 06/04/2018 by Duc Kimble MD at OR [facility] Right: Knee [employer] 06/19/2020-1119-1 40-01 / / [id number] Persona The Personlized Knee System Vivacit-E Highly Crosslinked Polyethylene All-Poly Patella Cemented Implanted:Qty: 1 on 06/04/2018 by Duc Kimble MD at OR [facility] Right: Knee [employer] 06/19/2022 42-5402-0 00-35 / / [id number] Tibia Stem 5 Deg Rt Size F - [id number] Implanted:Qty: 1 on 06/04/2018 by Duc Kimble MD at OR [facility] Right: Knee [employer] 10/21/2027 42-5320-0 75-02 / / [id number] Persona The Personalized Knee System Femur Cemented Cr Standard Implanted:Qty: 1 on 06/04/2018 by Duc Kimble MD at OR [facility] Right: Knee [employer] 11/20/2027 42-5026-0 62-02 / / [id number] Persona The Personalized Knee System Vivacit-E Highly Crosslinked Polyethylene Articular Surface Medial Congruent Implanted:Qty: 1 on 06/04/2018 by Duc Kimble MD at [facility] Right: Knee [employer] 11/19/2022 42-5221-0 07-12 / / [id number] Device Watchman Flx 24mm - [id number] Implanted:Qty: 1 on 10/06/2022 by Austin Penaloza MD at [facility] [employer] : INTRV CARD [id number] 03/07/2025 [id number] 40 / / [id number] Device Watchman Flx 27mm - [id number] Implanted:Qty: 1 on 10/06/2022 by Austin Penaloza MD at [facility] [employer] : INTRV CARD [id number] 08/07/2025 [id number] 70 / / [id number] documented as of this encounter Visit Diagnoses [...] Senile osteoporosis Adrenal cortical adenocarcinoma, unspecified laterality ([facility]) Ambulatory dysfunction Moderate aortic stenosis Aortic valve disorders PAF (paroxysmal atrial fibrillation) (HCC) Atrial fibrillation BMI 50.0-59.9, adult (HCC)- Primary Body Mass Index 50.0-59.9, adult Hypertensive heart and kidney disease with chronic diastolic congestive heart failure and stage 3b chronic kidney disease (HCC) PAF (paroxysmal atrial fibrillation) (HCC) Atrial fibrillation Bullous pemphigoid Pemphigoid Major depressive disorder, recurrent severe without psychotic features (HCC) Major depressive disorder, recurrent episode, severe, without mention of psychotic behavior Adrenal cortical adenocarcinoma, unspecified laterality ([facility]) Migraine with aura and without status migrainosus, not intractable Migraine with aura, without mention of intractable migraine without mention of status migrainosus Generalized anxiety disorder Senile osteoporosis Dermatosis- Primary Unspecified disorder of skin and subcutaneous tissue Dermatitis Contact dermatitis and other eczema, due to unspecified cause Encounter for therapeutic drug monitoring documented in this encounter Advance Directives * [...] Power of Attor marcel? No Care Teams Diamond Sizer And Grader Relationship Specialty Start Date End Date Nikunj Plascencia MD [address] [address] PCP - General Family Medicine 10/31/19 documented as of this encounter
--- OUTSIDE RECORDS SUMMARY | 2024-06-19 22:00 | External Medical Summary | Summary of Care ---
Author Name Unknown Organization [facility] Address [address] [place] [address] Phone [phone] Care Team Providers Care Algorithm Developer Name Role Phone Nikunj Plascencia MD Primary Care Provider [phone] Reason for Visit * Reason Onset Date Comments Precert In Process 06/05/2024 17 Sandra Brannon Encounter Details Date Type Department Care Team (Late st Contact Info) Description 06/05/2024 Telephone Dermatology [facility] [address] [place] [address] Swetha Guevara, [facility] [address] [place] [address] [address] [phone] Precert In Process (17 Sandra Brannon) Allergies Active Allergy Reactions Criticality Noted Date Comments Egg Shells Nausea/vomiting Medium 06/16/2018 Other reaction(s): GI SYMPTOMS Egg Yolk High 11/29/2019 Other reaction(s): GI upset Ibuprofen Other (Please comment) Medium 07/30/2010 Stomach upset Morphine Edema face/lips/tongue High 08/28/2021 Other reaction(s): LEGS SWELL documented as of this encounter (statuses as of 06/06/2024) Medications OMEGA 3-6-9 FATTY ACIDS PO CAPS [...] g 5 05/10/19 23 Active Saline Nasal [place] 0.65 % Nasal Solution ([place]) Q6H 06/07/19 23 Active Clobetasol Propionate 0.05 [...] 4 mL 3 03/20/2024 9:45 AM EST 11/28/19 24 Active Metoprolol Succinate ER 50 [...] Pain, Severe. 12 Tablet 02/27/19 25 Active Additional Information Patient not taking.Reported on 05/31/2024 Pregabalin 100 MG Oral Capsule (Lyrica) Take 1 Capsule by mouth in the morning and 1 Capsule at noon and 1 Capsule before bedtime. 90 Capsule 3 02/28/19 25 Active Doxycycline Hyclate 100 MG Oral [...] breakfast. 90 Capsule 1 06/01/19 25 Active Hospital, Clinic, or Other Facility Administered Medication Ordered Dose Route Frequency Start Date End Date Status atropine sulfate inj 0.4 mgIndications:Chest pain, unspecified type 0.4 mg IV PUSH PRN 01/29/2021 Active documented as of this encounter (statuses as of 06/06/2024) Active Problems Problem Noted Date Diagnosed Date [...] (08/17/2022): Added automatically from request for surgery [id number] Assessment & Plan (03/10/2024 8:29 PM EST): [...] as of this encounter (statuses as of 06/06/2024) Resolved Problems Problem Noted Date Diagnosed Date [...] 12/12/201111/09 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 07/30/2018 Overview (10/27/2011): [place] palsy Tinea 06/27/2011 07/30/2018 Mixed urge and stress incontinence 12/15/2008 10/08/2019 ADVANCE DIRECTIVE INFORMATION 06/17/2004 10/08/2019 documented as of this encounter (statuses as of 06/06/2024) Immunizations Name Administration Dates Next Due COVID-19 mRNA, LNP-s, No Pre serve, 2-Dose Series ([place]) 10/05/2020,09/14/2020 Covid-19, Mrna, Lnp-s, Pf, B ivalent, 30 Mcg, IM, 12 yrs and above ([facility]) 05/26/2022 Pneumococcal Conjugate Vacc, 13 Valent (Prevnar) 05/30/2016 Pneumococcal Conjugate Vacci ne, 20-valent ([id number]) 04/03/2023 Seasonal Influenza Vac., MDV , IM, [...] 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 Answer Date of Assessment Author No 06/04/2018 12:30 PM EDT Grceia Hernandez, RN * Are you blind or do [...] - 06/05/2024 1:10 PM EDT Re-auth per [facility] Dermatology Pre-Cert Request Medication/Disease State Information: Medication: Dupilumab (Dupixent) Maintenance: 300mg/2ml Pen - 300mg every two weeks (Day Supply: 4mL per 28 days) Diagnosis (including ICD-10): Atopic dermatitis - Atopic dermatitis, unspecified L20.9 Site of Care: specialty medication - route to [id number]. Referral to pharmacist for: No Pharmacist involvement needed See corresponding visit note(s) for additional supporting clinical information. Administration Location if Injection: Patient Administered at Home Is the patient in a facility?: No Office Information: Prescriber: Dr. Borges documented in this encounter Plan of Treatment Upcoming Encounters Date Type Department Care Team (Late st Contact Info) Description 06/07/2024 2:20 PM EDT Office Visit Podiatry [facility] [address] [place] [phone] Eveline Layne, DPM [address] [facility] [place] [address] 07/09/2024 1:20 PM EDT Office Visit Family Practice [facility] [address] [place] [address] Nikunj Plasecncia MD [address] [place] [address] 09/03/2024 2:00 PM EDT Office Visit Cardiology, [facility] [address] [place] [address] Gloria Shirley CRNP [address] [place] [address] 11/25/2024 2:00 PM EDT Office Visit Dermatology [facility] [address] [place] [address] Cyril Borges MD [address] [place] [address] 11/26/2024 3:00 PM EDT Office Visit Nephrology, [facility] [address] [place] [address] Geovanni Linder MD [address] [place] [address] Scheduled Procedures Name Priority Associated Diagnoses Date/Ti me COLONOSCOPY FLEXIBLE PROXIMA L DIAGNOSTIC Recall History of colonic polyps Health Maintenance Due Date Last Done Comments Cologuard 2002 Sigmoidoscopy 2002 HOME BP CUFF VALIDATION YEARLY 04/02/2020 04/02/2019 Fecal Occult Blood Test 03/10/2022 03/10/19, 03/10/2021, 03/10/2021, Additional history exists Mammogram 11/30/2022 11/30/2021, 0402/2021, 06/10/2021, Additional history exists Depression Monitoring 12/09/2022 12/09/2021 Adult Wellness Visit 05/15/2023 CKD PHOS USE SMARTSET 04595 06/11/202305/22, 01/07/2020, 12/06/2019, Additional history exists Zoster Vaccines (2 of 2) 08/22/2023 06/27/2023 COVID-19 Vaccine ( season) 2023 05/26/2022, 10/05/2020, 09/14/2020 DXA Scan 12/01/2023 11/30/2021, 08/21, 08/29/2017, Additional history exists *BISPHONATE OR OTHER ACCEPTABLE MEDICATION NEEDED FOR OSTEOPOROSIS (REFER TO SMARTSET #1146) 01/21/2024 CKD HGB USE SMARTSET 43410 04/27/202404/27, 04/28/2023, 03/31/2023, Additional history exists Albumin/Creatinine [...] D LEVEL ONCE IN A LIFETIME-USE SMARTSET# 63933 Completed 06/17/2023, 06/10/2022, 05/28/2021, Additional history exists [...] this encounter Medical Devices Implanted Type Area Hand Icer Device Identifier Shelf Expiration Date Model / Serial / Lot Kyphon Hv-R Bone Cement Implanted:Qty: 1 on 08/17/2016 by Michael Smith MD at OR [facility] N/A: Spine Thoracic 03/19/2019 C01A / C01A / [id number] Cement Bone Lv G 1119-140-01 - [id number] Implanted:Qty: 1 on 06/04/2018 by Duc Kimble MD at OR [facility] Right: Knee [employer] 11/19/2020-1119-1 40- / / [id number] Cement Bone Lv G 1119-140-01 - [id number] Implanted:Qty: 1 on 06/04/2018 by Duc Kimble MD at OR [facility] Right: Knee [employer] 06/19/20201119-1 40- / / [id number] Persona The Personlized Knee System Vivacit-E Highly Crosslinked Polyethylene All-Poly Patella Cemented Implanted:Qty: 1 on 06/04/2018 by Duc Kimble MD at OR [facility] Right: Knee [employer] 06/19/2022 42-5402-0 00-35 / / [id number] Tibia Stem 5 Deg Rt Size F - [id number] Implanted:Qty: 1 on 06/04/2018 by Duc Kimble MD at OR [facility] Right: [employer]nee [employer] 10/21/2027 42-5320-0 75-02 / / [id number] Persona The Personalized Knee System Femur Cemented Cr Standard Implanted:Qty: 1 on 06/04/2018 by Duc Kimble MD at OR [facility] Right: [employer]nee [employer] 11/20/2027 42-5026-0 62- / / [id number] Persona The Personalized Knee System Vivacit-E Highly Crosslinked Polyethylene Articular Surface Medial Congruent Implanted:Qty: 1 on 06/04/2018 by Duc Kimble MD at OR [facility] Right: [employer]nee [employer] 11/19/2022 42-5221-0 07- [id number] Device Watchman Flx 24mm - [id number] Implanted:Qty: 1 on 10/06/2022 by Austin Penaloza MD at [facility] [employer] : INTRV CARD [id number] 03/07/2025 [id number] 40 / / [id number] Device Watchman Flx 27mm - [id number] Implanted:Qty: 1 on 10/06/2022 by Austin Penaloza MD at [facility] [employer] : INTRV CARD [id number] 08/07/2025 [id number] 70 / / [id number] documented as of this encounter Advance Directives [...] Power of Attor marcel? No Care Teams Algorithm Developer Relationship Specialty Start Date End Date Nikunj Plascencia MD [address] [address] PCP - General Family Medicine 10/31/19 documented as of this encounter
--- OUTSIDE RECORDS SUMMARY | 2024-06-19 22:00 | External Medical Summary | Summary of Care ---
Author Name Unknown Organization [facility] Address [address] [place] [address] Phone [phone] Care Team Providers Care Platform Power Technician Name Role Phone Nikunj Plascencia MD Primary Care Provider [phone] Reason for Visit * Reason Onset Date Comments Medication Pre-auth 06/05/2024 Dupixent Encounter Details Date Type Department Care Team (Late st Contact Info) Description 06/05/2024 Telephone [address]ermat[address] [address] Swetha Guevara, [facility] [address] [place] [address] Medication Pre-auth (Dupixent) Allergies Active Allergy Reactions Criticality Noted Date Comments Egg Shells Nausea/vomiting Medium 06/16/2018 Other reaction(s): GI SYMPTOMS Egg Yolk High 11/29/2019 Other reaction(s): GI upset Ibuprofen Other (Please comment) Medium 07/30/2010 Stomach upset Morphine Edema face/lips/tongue High 08/28/2021 Other reaction(s): LEGS SWELL documented as of this encounter (statuses as of 06/05/2024) Medications OMEGA 3-6-9 FATTY ACIDS PO CAPS [...] g 5 05/10/19 23 Active Saline Nasal [place] 0.65 % Nasal Solution ([place]) Q6H 06/07/19 23 Active Clobetasol Propionate 0.05 [...] as of this encounter (statuses as of 06/05/2024) Active Problems Problem Noted Date Diagnosed Date [...] (08/17/2022): Added automatically from request for surgery [id number] Assessment & Plan (03/10/2024 8:29 PM EST): [...] as of this encounter (statuses as of 06/05/2024) Resolved Problems Problem Noted Date Diagnosed Date [...] 12/12/201111/09 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 07/30/2018 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 Tinea 06/27/2011 07/30/2018 Mixed urge and stress incontinence 12/15/2008 10/08/2019 ADVANCE DIRECTIVE INFORMATION 06/17/2004 10/08/2019 documented as of this encounter (statuses as of 06/05/2024) Immunizations Name Administration Dates Next Due COVID-19 mRNA, LNP-s, No Pre serve, 2-Dose Series (ChoicePass) 10/05/2020,09/14/2020 Covid-19, Mrna, Lnp-s, Pf, B ivalent, 30 Mcg, IM, 12 yrs and above (ChoicePass) 05/26/2022 Pneumococcal Conjugate Vacc, 13 Valent (Prevnar) 05/30/2016 Pneumococcal Conjugate Vacci ne, 20-valent ([id number]) 04/03/2023 Seasonal Influenza Vac., MDV , IM, [...] 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 Referral to pharmacist for: No Pharmacist involvement needed See corresponding visit note(s) for additional supporting clinical information. Administration Location if Injection: Patient Administered at Home Is the patient in a facility?: No Office Information: Prescriber: Dr. Borges documented in this encounter Plan of Treatment Upcoming Encounters Date Type Department Care Team (Late st Contact Info) Description 06/07/2024 2:20 PM EDT Office Visit Podiatry [facility] [address] [place] [address] Eveline Layne, [facility] [address] [facility] [address] 07/09/2024 1:20 PM EDT Office Visit Family Practice [facility] [address] [place] [address] Nikunj Plascencia MD [address] [place] [address] 09/03/2024 2:00 PM EDT Office Visit Cardiology, [facility] [address] [place] [id number] Gloria Shirley CRNP [address] [place] [address] 11/25/2024 2:00 PM EDT Office Visit Dermatology [facility] [address] [place] [address] Cyril Borges MD [address] [place] [address] 11/26/2024 3:00 PM EDT Office Visit Nephrology, [facility] [address] [facility] [place] [address] Geovanni Linder MD [address] [place] [place] [address] Scheduled Procedures Name Priority Associated Diagnoses Date/Ti [...] Wellness Visit 05/15/2023 CKD PHOS USE SMARTSET 36322 06/11/2023/2 02/2022, 01/07/2020, 12/06/2019, Additional history exists Zoster Vaccines (2 of 2) 08/22/2023 06/27/2023 COVID-19 Vaccine ( season) 2023 05/26/2022, 10/05/2020, 09/14/2020 DXA Scan 12/01/2023 11/30/2021, 08/21, 08/29/2017, Additional history exists *BISPHONATE OR OTHER ACCEPTABLE MEDICATION NEEDED FOR OSTEOPOROSIS (REFER TO SMARTSET #1146) 01/21/2024 CKD HGB USE SMARTSET 96132 04/27/202404/27, 04/28/2023, 03/31/2023, Additional history exists Albumin/Creatinine [...] D LEVEL ONCE IN A LIFETIME-USE SMARTSET# 09031 Completed 06/17/2023, 06/10/2022, 05/28/2021, Additional history exists [...] this encounter Medical Devices Implanted Type Area Stave Jointer Device Identifier Shelf Expiration Date Model / Serial / Lot Kyphon Hv-R Bone Cement Implanted:Qty: 1 on 08/17/2016 by Michael Smith MD at OR [facility] [place] N/A: Spine Thoracic 03/19/2019 C01A / C01A / [id number] Cement Bone Lv G 1119-140-01 - [id number] Implanted:Qty: 1 on 06/04/2018 by Duc Kimble MD at OR [facility] Right: Knee [employer] 11/19/2020-1119-1 40- / / [id number] Cement Bone Lv G 1119-140-01 - [id number] Implanted:Qty: 1 on 06/04/2018 by Duc Kimble MD at OR [facility] Right: Knee [employer] 06/19/20201119-1 40- / / [id number] Persona The Personlized Knee System Vivacit-E Highly Crosslinked Polyethylene All-Poly Patella Cemented Implanted:Qty: 1 on 06/04/2018 by Duc Kimble MD at OR [facility] Right: Knee [employer] 06/19/2022 42-5402-0 00-35 / / [id number] Tibia Stem 5 Deg Rt Size F - [id number] Implanted:Qty: 1 on 06/04/2018 by Duc Kimble MD at OR [facility] Right: Knee [employer] 10/21/2027 42-5320-0 75-02 / / [id number] Persona The Personalized Knee System Femur Cemented Cr Standard Implanted:Qty: 1 on 06/04/2018 by Duc Kimble MD at OR [facility] Right: Knee [employer] 11/20/2027 42-5026-0 62- / [id number] Persona The Personalized Knee System Vivacit-E Highly Crosslinked Polyethylene Articular Surface Medial Congruent Implanted:Qty: 1 on 06/04/2018 by Duc Kimble MD at OR [facility] Right: Knee [employer] 11/19/2022 42-5221-0 07- / [id number] Device Watchman Flx 24mm - [id number] Implanted:Qty: 1 on 10/06/2022 by Austin Penaloza MD at [facility]ARDIAC LABS [facility] [place] [employer] : INTRV CARD [id number] 03/07/2025 [id number] 40 / / [id number] Device Watchman Flx 27mm - [id number] Implanted:Qty: 1 on 10/06/2022 by Austin Penaloza MD at [facility]S [facility] [place] [employer] : INTRV CARD [id number] 08/07/2025 [id number] 70 / / [id number] documented as of this encounter Advance Directives [...] Power of Attor marcel? No Care Teams Platform Power Technician Relationship Specialty Start Date End Date Nikunj Plascencia MD [address] [place] [address] PCP - General Family Medicine 10/31/19 documented as of this encounter
[2024-06-19] MEDS: ICU Protocol for HYPERglycemia SCH (22:41)
[2024-06-19] MEDS: LORazepam 0.5 MG TAB PO PRN (22:50)
--- NOTE | 2024-06-19 23:38 | CT Scan Report ---
Exam(s): CT LEFT HIP Without Contrast EXAM: CT Left Lower Extremity Without Intravenous Contrast, Hip CLINICAL HISTORY: Reason for exam: L hip pain (use CTAP images). TECHNIQUE: Axial computed tomography images of the left hip without intravenous contrast. CTDI is 0 mGy and DLP is 0 mGy-cm. Automated exposure control was utilized for the study. A dose lowering technique was utilized adhering to the principles of ALARA. COMPARISON: No relevant prior studies available. FINDINGS: Bones/joints: Mild osteoarthritis of the left hip. No acute fracture or dislocation. Soft tissues: Unremarkable. IMPRESSION: No acute findings in the left hip. Electronically signed by: Torrey Parker M.D. 06/19/24 23:36 PM
[2024-06-19 23:49] LABS: INR 1.1 (0.9-1.1); Partial Thromboplastin Time 28 Seconds (21-31); Prothrombin Time 11.5 Seconds (9.0-12.0)
--- NOTE | 2024-06-20 00:50 | Magnetic Resonance Report ---
EXAM: MR brain wo con CLINICAL HISTORY: cva sp tnk TECHNIQUE: Multisequential and multiplanar images of the brain were submitted for review without contrast. COMPARISON: FINDINGS: Generalized parenchymal atrophy is appreciated. Scattered foci of increased T2/FLAIR signal abnormality are identified within the bilateral periventricular and subcortical white matter, and are most commonly associated with chronic small vessel ischemic disease. No focal parenchymal lesions are seen. No intracranial hemorrhage, mass effect, midline shift, extra-axial collection, or hydrocephalus is identified. Ventricles, sulci, and basal cisterns are symmetric and normal in size and configuration. Diffusion-weighted sequences show no evidence of acute ischemic infarction. Midline structures including the pituitary gland, corpus callosum, pineal region, and brainstem are unremarkable. The craniovertebral junction is within normal limits. No calvarial abnormalities are identified. The paranasal sinuses and mastoid air cells are clear. Orbital structures are unremarkable. Appropriate flow voids are present in the visualized intracranial vessels. IMPRESSION: 1. No acute ischemia, space occupying mass, or other acute intracranial pathology is demonstrated. 2. Chronic small vessel ischemic disease.-stable. 3. Diffuse cerebral atrophy.-stable. No other new interval abnormality since prior study. Electronically signed by Robert Kilpatrick 06-20-2024 12:50 AM
[2024-06-20 04:25] LABS: Basophils # (auto) 0.06 K/uL (0.00-0.20); Basophils % (auto) 0.8 %; Eosinophils # (auto) 0.42 K/uL (0.00-0.50); Eosinophils % (auto) 5.3 %; Hematocrit (blood only) 28.6 % (37.0-47.0); Hemoglobin 8.7 g/dl (12.0-16.0); Immature Granulocytes # (auto) 0.02 K/uL (0.01-0.20); Immature Granulocytes % (auto) 0.3 %; Lymphocytes % (auto) 23.8 %; Mean Corpuscular Hemoglobin 27.6 pg (25.0-34.0); Mean Corpuscular Hgb Conc 30.4 g/dL (32.0-36.0); Mean Corpuscular Volume 90.8 fL (80.0-100.0); Mean Platelet Volume 11.5 fL (9.4-12.4); Monocytes # (auto) 0.83 K/uL (0.11-0.59); Monocytes % (auto) 10.4 %; Neutrophils # (auto) 4.75 K/uL (1.40-6.50); Neutrophils % (auto) 59.4 %; Platelet Count 142 K/uL (130-400); RDW Coefficient of Variation 15.9 % (11.5-14.5); RDW Standard Deviation 53.1 fL (36.4-46.3); Red Blood Count 3.15 M/uL (4.20-5.40); White Blood Count 7.98 K/ul (4.8-10.8)
[2024-06-20 04:46] LABS: BUN Creatinine Ratio 22.9 (10-20); Calcium 9.3 mg/dl (8.6-10.3); Chol HDL Ratio 2.1 (0-5); Creatinine Clr Calc Pharmacy 61.7 ml/min; Potassium 4.1 mmol/L (3.5-5.1)
[2024-06-20 07:54] LABS: Estimated Average Glucose 108 mg/dl; Hemoglobin A1C 5.4 % (4.5-5.6)
--- NOTE | 2024-06-20 08:00 | Critical Care Progress Note ---
Date of Service June 20, 2024 Assessment & Plan (1) Stroke-like symptoms: (2) Chronic back pain: (3) Thrombolytic medication administered within last 5 days: (4) Acute kidney injury: (5) Chest pain: (6) GERD (gastroesophageal reflux disease): (7) Morbid obesity: (8) Aortic stenosis: Plan Reason Critically Ill: Patient presents with stroke like symptoms- she was deemed a thrombolytic candidate and those were administered. Patient to the ICU post thrombolytic administration per stroke protocol. Follow hemodynamics and neurological examinations Neuro - stroke like symptoms, s/p thrombolytic administration, Hx Chronic back pain with radicular symptoms CAM ICU: Negative -- Ataxia and decreased facial sensation left S/p TNK 06/19/2024 around 3 PM Continue with neurochecks as per protocol Keep blood pressure < 180/105 mmHg hydralazine for BP control as she is on Metoprolol oral which will also be continued Continue high intensity statin -- Chronic back pain and complaints of back pain On oxycodone at home Did get fentanyl in the ER and was requesting fentanyl overnight Will try to avoid opioids if possible -- Anxiety with neuropathy Continue with home medications for anxiety, neuropathy --History of migraine On sumatriptan as needed Cardiac - Hx: HTN, HLD, PAF, moderate to severe --Paroxysmal A-fib S/p Watchman - She has not had her TAVR completed, although she did complete the pre- screenings as she could not find a ride to get procedure completed 2D echo 06/06/2022: EF 60-65%, moderate concentric LVH, grade 1 diastolic dysfunction, moderate , mild AR RV normal in size and function Respiratory - No acute needs CT chest 09/14/2023 personally reviewed: Increase reticular markings in the periphery appreciated bilateral lower lobes more on the right side Minimal bilateral apical pleural scarring Cardiomegaly No significant mediastinal lymphadenopathy --High probability of sleep apnea Recommend outpatient polysomnography --Ex-smoker Approximate 56-aoqh-sioh smoking history, quit around the age of 32 GI - Morbid obesity no acute needs RENAL/LYTES - No acute needs, Hx CKD III -- EDYTA Follow-up urine lites Monitor BUN/creatinine Avoid nephrotoxic medications Strict ins and outs ENDO - -- ICU hypoglycemia protocol HEME - No acute needs -- Normocytic anemia Monitor H&H --Episode of epistaxis Resolved in the ED ID - No acute needs - chronic left lower extremitiy wound- previous cultures with MSSA- Just completed 10 day course of Cephalexin 500mg TID --Prophylaxis VTE: IPC GI: Pantoprazole Lines: Peripheral Diet: Cardiac Plan: In/out: +30 mL, urine output 1550 Patient with acute kidney injury appreciated on the labs today. Will order urine workup Hold Lasix today, repeat BMP later today Had multiple CAT scan of the head which were negative for any acute intra cranial abnormality Patient was complaining of some chest discomfort earlier today, EKG was done which showed normal sinus rhythm, no ST-T wave changes appreciated She does have history of reflux, will start her on pantoprazole on a daily basis Tylenol for headache right now Repeat CT head around 3 PM Case discussed with RN as well as primary team Please note the above document was generated using voice recognition software. It may contain grammatical, syntax or spelling errors.Any formal questions or concerns about the content, text or information contained within the body of this dictation should be directly addressed to the provider for clarification. Admission and Anticipated Discharge Date Admission Date: June 19, 2024 Subjective Patient seen and examined at bedside. No acute distress, no adverse events overnight Her systolic blood pressure was in the mid 120s with MAP in the 80s, she was saturating 95% on room air She did complain of mild chest discomfort earlier in the morning for which EKG was done. Had already resolved by the time I entered the room Finished her breakfast without any issues. No nausea vomiting Still complaining of some floaters in the eyes. No dizziness Denies any weakness No difficulty swallowing Review of Systems 2 Review of Systems: All systems reviewed & are unremarkable except as noted in Subjective Physical Exam 2 Physical Exam: Constitutional: No acute distress HEENT: EOMI, PERRLA, short thick neck Respiratory system: Good air entry bilaterally, no wheeze, no rhonchi, mild crackles bilateral lower lobes, non-Velcro CVS: S1-S2 positive, positive 2 out of 6 systolic murmur appreciated best at aorta Abdomen: Soft, nontender, nondistended, positive bowel sounds x4, obese Extremities: +2 pulses bilaterally radialis/ dorsalis pedis, no cyanosis, +1 pitting edema bilateral lower extremity Neuro: Awake alert oriented x3, cranial nerves II to XII grossly intact, muscular strength 5/5 bilateral upper and lower extremities Psych: Normal mood and affect G/U: No Lynn Skin: no rashes, warm and dry Lymphatic: no cervical or axillary lymphadenopathy Results & Data Results & Data Vital Signs (Past 12 Hours) Vital Signs Temp Pulse Resp BP BP Pulse Ox Pulse Ox 06/20/24 06:40 80 20 124/74 98 06/20/24 05:40 75 14 106/58 L 94 06/20/24 04:40 74 20 102/78 97 06/20/24 03:40 36.4 C L 72 18 122/58 L 99 06/20/24 02:40 72 18 122/63 98 06/20/24 01:40 73 14 128/60 100 06/20/24 00:40 75 12 139/74 100 06/20/24 00:00 94 06/19/24 23:40 74 20 145/60 H 94 06/19/24 23:17 06/19/24 23:10 36.4 C L 70 17 134/60 95 06/19/24 22:40 71 14 151/73 H 96 06/19/24 22:10 72 17 143/97 H 95 06/19/24 21:40 75 16 146/96 H 97 06/19/24 21:10 75 16 197/97 H 95 06/19/24 20:55 36.5 C 72 20 197/97 H 94 06/19/24 20:49 94 06/19/24 20:40 73 18 185/100 H 94 06/19/24 20:08 63 18 116/49 L 100 O2 Del Method O2 Del Method O2 Flow Rate 06/20/24 06:40 Room Air 06/20/24 05:40 Room Air 06/20/24 04:40 Room Air 06/20/24 03:40 Nasal Cannula 2 06/20/24 02:40 Nasal Cannula 2 06/20/24 01:40 Nasal Cannula 2 06/20/24 00:40 Nasal Cannula 2 06/20/24 00:00 Room Air 06/19/24 23:40 Room Air 06/19/24 23:17 Room Air 06/19/24 23:10 Room Air 06/19/24 22:40 Room Air 06/19/24 22:10 Room Air 06/19/24 21:40 Room Air 06/19/24 21:10 Room Air 06/19/24 20:55 Room Air 06/19/24 20:49 Room Air 06/19/24 20:40 Room Air 06/19/24 20:08 Oxymask 4 Laboratory Results 06/20/24 04:04 06/20/24 04:04 Coding Level of Care Code 57941 SUB INP/OBS CARE 3/50MIN Diagnoses Stroke-like symptoms R29.90 Chronic back pain M54.9; G89.29 Thrombolytic medication administered within last 5 days Z78.9 Acute kidney injury N17.9 Chest pain R07.9 GERD (gastroesophageal reflux disease) K21.9 Morbid obesity E66.01 Aortic stenosis I35.0
[2024-06-20] MEDS: DULoxetine HCL 60 MG CAP PO SCH (08:19)
[2024-06-20] MEDS: METOPROLOL SUCC 25MG EXT REL TAB PO SCH (08:20)
[2024-06-20] MEDS: FOLIC ACID 400 MCG TAB PO SCH (08:20)
[2024-06-20] MEDS: CYANOCOBALAMIN (B-12) 500 MCG TABLET PO SCH (08:20)
[2024-06-20] MEDS: CHOLECALCIFEROL 25 MCG (1000 UNITS) TAB PO SCH (08:20)
[2024-06-20] MEDS: TAMSULOSIN HCL 0.4 MG CAP PO SCH (08:20)
[2024-06-20 08:29] LABS: Magnesium 1.7 mg/dl (1.7-2.4); Phosphorus 4.7 mg/dl (2.5-4.9)
[2024-06-20] MEDS: MAGNESIUM SULFATE / D5W 1 GM/100 ML BAG IV SCH (08:50)
[2024-06-20] MEDS ORDERED: FUROSEMIDE 20 MG TAB PO SCH (09:00)
--- NOTE | 2024-06-20 09:54 | Electrocardiogram Report ---
Test Reason : Blood Pressure : */* mmHG Vent. Rate : 75 BPM Atrial Rate : 75 BPM P-R Int : 166 ms QRS Dur : 78 ms QT Int : 386 ms P-R-T Axes : 62 -7 20 degrees QTcB Int : 431 ms Normal sinus rhythm Normal ECG When compared with ECG of 20-Feb-2024 16:37, Premature atrial complexes are no longer Present Confirmed by Guillermo Contreras ([id number]) on 06/20/2024 9:54:48 AM Referred By: Confirmed By: Guillermo Contreras
[2024-06-20] MEDS: PANTOprazole 40 MG TAB PO SCH (10:50)
[2024-06-20] MEDS: FUROSEMIDE 20 MG TAB PO SCH (10:56)
--- NOTE | 2024-06-20 12:10 | Hospitalist Progress Note ---
Date of Service June 20, 2024 Assessment & Plan (1) Left leg weakness: Plan: 69 yo F w/ PMH of chronic diastolic heart failure (EF 55%, TTE 2024), nonocclusive CAD, valvular heart disease (severe /mild AR/TR), PSVT, paroxysmal atrial flutter s/p Watchman procedure, history of PE, hypertension, LILY as per records, pulmonary hypertension, CRI (baseline creatinine 1.5-1.6), chronic anemia (baseline hemoglobin 8-9 ), adrenal adenoma as per records, IBS, bullous pemphigoid, migraine, anxiety/mood disorder, chronic back pain/compression fractures, recurrent falls, chronic venous insufficiency, urinary incontinence, past tobacco abuse presents from [facility] due to new onset left leg weakness and numbness while at waiting room. IV TNK administered [place] [facility] [place] recommendations f/b improved left leg weakness. She is being managed for the following: Left leg weakness, improved post TNK administration Possible CVA Patient presents with LLE weakness and numbness. Improved with TNK administration. CT head and neck imagings and MRI brain reviewed. Follow-up with repeat CT head later in the day. No ASA for 24 hr post tnk. Neurochecks, PT/OT, telemetry monitoring. Neuro consult, pending eval. Abnormal CT head: Dilation of the bilateral superior ophthalmic veins has progressed compared to 2022 study. Ophthalmology follow-up as an outpatient to exclude low-flow carotid-cavernous fistula. Abnormal CTA neck: Prominent prevascular and right paratracheal lymph nodes which are likely reactive. A chest CT in 3 months to ensure resolution is recommended. Transient hypoxemic respiratory failure secondary to subacute heart failure hx diastolic dysfunction hx valvular heart disease (severe /mild AR/TR) Admitting CXR w/ pul edema. ABG reviewed, hypoxemia noted. s/p IV Lasix 1 dose at presentation, strict I/O's, daily weights, CHF education c/w home lasix. Other chronic medical conditions: Continue with/resume home meds as and when able. PSVT paroxysmal atrial flutter status post Watchman procedure history of PE hypertension, stable LILY as per records pulmonary hypertension CRI, creatinine better than baseline for now. Chronic anemia, hemoglobin at baseline adrenal adenoma, known outpatient diagnosis, f/u OP providers as prior for ongoing w/u. bullous pemphigoid, stable on Dupixent chronic back pain/compression fractures, c/w pain mx. recurrent falls chronic venous insufficiency past tobacco abuse DVT prophylaxis. SCDs Re: epistaxis DNR as per patient's prior directives. Patient sister Ms. Michaela Paulino, contact #[phone]. Text document was generated using Antavo voice recognition software. It may contain grammatical or spelling errors. Kindly contact undersigned for clarification of any documentation item in question. Admission and Anticipated Discharge Date Admission Date: June 19, 2024 Subjective Patient was seen and examined at bedside. Patient was lying in bed, on room air, NAD, resting comfortably. Patient reports her left-sided weakness and numbness/tingling has improved significantly. Patient denies any headache or blurry vision. Patient on clear liquid diet, denies any new complaints. Physical Exam Physical Exam: GENERAL: NAD, morbidly obese, no respiratory distress SKIN: Pallor, warm HEENT: EOMI, PERRLA NECK : Supple, short neck, no tenderness CHEST : Decreased breath sounds, bb crackles, no tenderness HEART : RRR, systolic murmur ABDOMEN: no distention, nontender EXTREMITIES : trace ble edema, non tender ble. NEUROLOGIC : Coherent, no facial asymmetry, MMTs BUE 5/5 and ble 5/5, gait and stance not assessed Results & Data Results & Data Vital Signs (Past 12 Hours) Vital Signs Temp Pulse Resp BP Pulse Ox O2 Del Method O2 Flow Rate 06/20/24 11:42 76 16 131/79 96 Room Air 06/20/24 10:40 76 22 141/77 H 95 Room Air 06/20/24 09:40 68 18 120/48 L 97 Room Air 06/20/24 08:40 73 16 130/54 L 95 Room Air 06/20/24 07:40 78 16 128/64 100 Room Air 06/20/24 06:40 80 20 124/74 98 Room Air 06/20/24 05:40 75 14 106/58 L 94 Room Air 06/20/24 04:40 74 20 102/78 97 Room Air 06/20/24 03:40 36.4 C L 72 18 122/58 L 99 Nasal Cannula 2 06/20/24 02:40 72 18 122/63 98 Nasal Cannula 2 06/20/24 01:40 73 14 128/60 100 Nasal Cannula 2 06/20/24 00:40 75 12 139/74 100 Nasal Cannula 2
--- NOTE | 2024-06-20 13:34 | Neurology Consultation ---
Date of Consultation June 20, 2024 Assessment & Plan (1) Stroke-like symptoms: Recommend continued stroke work up to include the following: Continue neurological assessments per thrombolytic protocol Obtain stat CT brain without contrast for any acute neurological decline Continue vital sign assessments per thrombolytic protocol Keep SBP <180mmHg / DBP<105 mmHg Plan for follow up brain imaging at or near 24 hours post thrombolytic administration Continue to hold full anticoagulation ASA, NSAIDs, antiplatelet medications until follow up CT brain without contrast at/near 24 hours post thrombolytic infusion Patient taking daily ASA prior to admit If no evidence of hemorrhagic conversion then recommend DAPT for at least 3 weeks Recommend high dose statin therapy indefinitely if tolerated Has known hx of AFIB now s/s Watchman device Metabolic workup should include hgbA1c, fasting lipids Recommend obtain echocardiogram as part of complete stroke workup PT/OT/SLT to eval and treat SCDs as VTE prophylaxis Recommend eval for LILY and consider outpatient polysomnography Telehealth Consultation Telehealth Information Telehealth Information: I performed this visit using a real-time telehealth connection between my location and the patients location ([facility]). After connecting through interactive tele-video, patient was identified by name and date of and/or wristband check.Patient (or authorized healthcare bank representative) was informed that this was a telemedicine visit and it was being conducted confidentially over secure lines. My office door was closed and no one else was present in the room with me.Patient (or authorized healthcare bank representative) provided consent to proceed with the visit, expressed an understanding of privacy and security of the telemedicine visit, and gave permission to have a hospital bank representative in the room in order to assist with the visit and to conduct portions of the visit, as needed. I informed the patient (or authorized healthcare bank representative) that I reviewed their record and presented the opportunity for them to ask any questions regarding the visit today. The patient agreed to participate. History of Present Illness Reason for Consultation: Stroke like symptoms Requesting Physician: Dr. curiel Attending Physician: Jyotsna Curiel MD History of Present Illness 69yo female presented with acute onset left hemiparesis and hemiparesthesia arrived within therapeutic timeframe was evaluated for and received IV thrombolytic. MRI brain depicts no evidence of acute ischemic stroke. I have performed televideo consultation. She is alert & oriented; able to answer all questions appropriately, name objects on televideo monitor, repeat phrases and perform complex/embedded commands without deficit. There is noted dysarthria but she feels she is peaking at her baseline. Unfortunately she reports the left sided symptoms improved initially but have returned. She is pending follow up imaging. Allergies Allergy/AdvReac Type Severity Reaction Status Date / Time egg AdvReac Intermediate GI upset Verified 06/19/24 13:10 ibuprofen AdvReac Intermediate stomach Verified 06/19/24 13:10 irritation morphine AdvReac Intermediate LEGS SWELL Verified 06/19/24 13:10 Home Medications Medication Instructions Recorded Confirmed Type aspirin 81 mg tablet,delayed 81 mg PO QAM 07/28/23 06/19/24 History release dupilumab 300 mg/2 mL subcutaneous 300 mg subcut Q14D 09/14/23 06/19/24 History pen injector (Dupixent) lisinopril 10 mg tablet 10 mg PO QAM 09/14/23 06/19/24 History ascorbic acid (vitamin C) 250 mg 250 mg PO QAM #30 tabs 11/03/23 06/19/24 Rx tablet atorvastatin 80 mg tablet 80 mg PO QPM #30 tabs 11/03/23 06/19/24 Rx betamethasone dipropionate 0.05 % 1 applic topical BID PRN RASH 11/03/23 06/19/24 Rx topical ointment FACE/TRUNK/ARMS #15 grams buspirone 10 mg tablet 10 mg PO BID #60 tabs 11/03/23 06/19/24 Rx calcipotriene 0.005 % topical cream 1 applic topical DAILY PRN flare 11/03/23 06/19/24 Rx up #60 grams cholecalciferol (vitamin D3) 25 1,000 unit PO QAM #30 tabs 11/03/23 06/19/24 Rx mcg (1,000 unit) tablet (Vitamin D3) clotrimazole 1 % topical cream 1 applic topical BID PRN Itching 11/03/23 06/19/24 Rx #45 grams cyanocobalamin (vitamin B-12) 1,000 mcg PO QAM #30 tabs 11/03/23 06/19/24 Rx 1,000 mcg tablet (Vitamin B-12) docusate sodium 100 mg capsule 100 mg PO BID #60 caps 11/03/23 06/19/24 Rx (Colace) doxepin 25 mg capsule 25 mg PO HS #30 caps 11/03/23 06/19/24 Rx duloxetine 60 mg capsule,delayed 120 mg (2 x 60 mg) PO QAM #60 caps 11/03/23 06/19/24 Rx release (Cymbalta) fish, borage, flaxseed oils-omega 1 cap PO QAM #30 caps 11/03/23 06/19/24 Rx 3,6,9 comb no.1 1,200 mg capsule ([place] 3-6-9) folic acid 800 mcg tablet 0.8 mg PO QAM #30 tabs 11/03/23 06/19/24 Rx memantine 10 mg tablet 10 mg PO BID #60 tabs 11/03/23 06/19/24 Rx metoprolol succinate 25 mg 12.5 mg (1/2 x 25 mg) PO BID #30 11/03/23 06/19/24 Rx tablet,extended release 24 hr tabs miconazole nitrate 2 % topical 1 applic topical BID #85 grams 11/03/23 06/19/24 Rx powder (Desenex) oxybutynin chloride 5 mg 5 mg PO QPM #30 tabs 11/03/23 06/19/24 Rx tablet,extended release 24 hr oxycodone 5 mg tablet 5 mg PO Q6H PRN pain level 6-10 on 11/03/23 06/19/24 Rx a 1-10 scale #5 tabs polyethylene glycol 3350 17 gram 17 g PO DAILY PRN constipation #30 11/03/23 06/19/24 Rx oral powder packet (Miralax) ea sodium chloride 0.65 % nasal spray 2 spray NA Q6H #44 mL 11/03/23 06/19/24 Rx aerosol (Saline Mist) sumatriptan succinate 25 mg tablet 25 mg PO DIRECTED PRN Migraine 11/03/23 06/19/24 Rx Headache #30 tabs tacrolimus 0.1 % topical ointment 1 applic topical BID PRN itching 11/03/23 06/19/24 Rx #30 grams tamsulosin 0.4 mg capsule 0.4 mg PO QAM #30 caps 11/03/23 06/19/24 Rx furosemide 20 mg tablet (Lasix) 20 mg PO DAILY #3 tabs 02/20/24 06/19/24 Rx Patient History Medical History Skin tear of elbow without complication Nose septum perforation Chronic low back pain Sacroiliitis IBS (irritable bowel syndrome) Borderline diabetes mellitus A-fib "i think i have a-fib." -- on eliquis -- follows with Dr. Torres History of TIA (transient ischemic attack) 2016 Cardiac murmur History of skin cancer History of COVID-19 02/2020; generalized weakness, diarrhea, sob, fever, body aches; hospitalized x 1 week; c/o ongoing brain fog since having covid Verbalizes suicidal thoughts COVID-19 Nocturia Acute urinary retention Back pain Renal failure Morbid obesity BMI 50.5 Carotid artery stenosis "mild" Aortic stenosis Mild (per cardiology review) aortic stenosis with possible bicuspid aortic valve (MG 19mmhg, NIKKIE 3.0) per 05/2018 ECHO Anemia Osteoporosis GERD (gastroesophageal reflux disease) controlled Chronic back pain High cholesterol Hx of falling last fall 09/2018- per patient, related to LBP/balance issues- ? r/t ambulatory dysfunction- improved with cane/walker use Surgical History History of right cataract extraction S/P epidural steroid injection History of appendectomy History of cardiac cath 2017= NO STENTS History of right knee joint replacement History of back surgery Hx of laparoscopy History of kyphoplasty Family History Father Stroke Slow to wake up after anesthesia Myocardial infarction, Onset Age: 40 Mother Stroke Myocardial infarction, Onset Age: 60 Sister Myocardial infarction, Onset Age: 60 Social History Smoking Status: Former smoker Tobacco Type: Cigarettes Cigarettes Per Day: quit 40 yrs ago; Second Hand Exposure: Yes; Hx Alcohol Use: No Hx Substance Use: No Preferred Language: Frisian Communication Ability: Effective Visual Impairment: No Limitations Hearing Ability: Normal 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 Oriented to person, place, and time. Fluency naming repetition and comprehension appear grossly intact. Affect remains appropriate. CN testing: I: Denies changes in ability to smell II:Reports no changes in visual acuity III/IV/: No evidence of gaze preference, hippus, nystagmus or roving eye movements V: Facial sensation reportedly grossly intact to light touch bilaterally VII: Facial movements appear without evidence of asymmetry VIII: Hearing appears grossly intact to loud voice bilaterally IX/X: Palate appears to elevate symmetrically XI: Shoulder shrug appears symmetric/ grossly intact bilaterally XII: Tongue protrudes midline without evidence of biting Motor exam: No drift BUE, noted LLE LLE weakness compared to RLE Sensory: Reports continued left hemiparesthesia Coordination: No apparent evidence of dysmetria or dysdiadochokinesia Reflexes: Deferred Gait: Deferred Results & Data Vital Signs (Past 12 Hours) Vital Signs Temp Pulse Resp BP Pulse Ox O2 Del Method O2 Flow Rate 06/20/24 11:42 76 16 131/79 96 Room Air 06/20/24 10:40 76 22 141/77 H 95 Room Air 06/20/24 09:40 68 18 120/48 L 97 Room Air 06/20/24 08:40 73 16 130/54 L 95 Room Air 06/20/24 07:40 78 16 128/64 100 Room Air 06/20/24 06:40 80 20 124/74 98 Room Air 06/20/24 05:40 75 14 106/58 L 94 Room Air 06/20/24 04:40 74 20 102/78 97 Room Air 06/20/24 03:40 36.4 C L 72 18 122/58 L 99 Nasal Cannula 2 06/20/24 02:40 72 18 122/63 98 Nasal Cannula 2 06/20/24 01:40 73 14 128/60 100 Nasal Cannula 2 Laboratory Results Abnormal lab results 06/19/24 06/19/24 06/19/24 Range/Units 14:27 14:28 21:30 RBC 3.29 L (4.20-5.40) M/uL Hgb 8.9 L (12.0-16.0) g/dl Hct 29.9 L (37.0-47.0) % MCHC 29.8 L (32.0-36.0) g/dL RDW Std Deviation 53.3 H (36.4-46.3) fL RDW Coeff of Brandy 16.0 H (11.5-14.5) % [place] # (Auto) 0.84 H (0.11-0.59) K/uL Chloride 108 H (98-107) mmol/L BUN 30 H (6-23) mg/dl Creatinine (0.6-1.2) mg/dl BUN/Creatinine Ratio 26.1 H (10-20) POC Glucose (70-99) mg/dl Troponin I High Sens 15.0 H (0-14) pg/ml Ur Specific [place] 1.043 H (1.000-1.030) 06/19/24 06/20/24 Range/Units 22:02 04:04 RBC 3.15 L (4.20-5.40) M/uL Hgb 8.7 L (12.0-16.0) g/dl Hct 28.6 L (37.0-47.0) % MCHC 30.4 L (32.0-36.0) g/dL RDW Std Deviation 53.1 H (36.4-46.3) fL RDW Coeff of Brandy 15.9 H (11.5-14.5) % [place] # (Auto) 0.83 H (0.11-0.59) K/uL Chloride (98-107) mmol/L BUN 30 H (6-23) mg/dl Creatinine 1.31 H (0.6-1.2) mg/dl BUN/Creatinine Ratio 22.9 H (10-20) POC Glucose 105 H (70-99) mg/dl Troponin I High Sens (0-14) pg/ml Ur Specific [place] (1.000-1.030) Diagnostic Findings Chest X-Ray 06/19/24 14:25 XR chest 1V portable CLINICAL HISTORY: neuro deficit, acute stroke suspected COMPARISON STUDY: Chest CT September 14, 2023. Chest radiograph February 20, 2024. FINDINGS: This exam is compromised by suboptimal penetration. Lung volumes are normal. Patient is rotated. The heart is moderately enlarged. Interstitial thickening is present. No consolidation is identified. There is no pneumothorax or pleural effusion. IMPRESSION: Cardiomegaly with interstitial thickening suggestive of pulmonary edema. Radiographic follow-up to ensure resolution is recommended. ACT 112: Negative or not required by law. Electronically signed by: Ovidio Dunn M.D. 06/19/2024 3:[address] 06/19/24 14:25 CT head/brain wo con CLINICAL HISTORY: 69 years-old Female with neuro deficit, acute stroke suspected . Acute stroke like symptoms TECHNIQUE: Multiple axial CT images of the head were obtained without contrast. A dose lowering technique was utilized adhering to the principles of ALARA. COMPARISON: CTA head of same day, brain MRI 01/24/2024 FINDINGS: No acute intracranial hemorrhage, midline shift, intracranial mass, hydrocephalus, territorial ischemia or abnormal extra-axial collection. Suggestion of mild chronic microvascular ischemic disease. The calvarium is intact. Chronic nasal septal defect again seen. Prior bilateral lens repair. The paranasal sinuses, mastoid air cells, and middle ear cavities are clear. IMPRESSION: No acute intracranial abnormality. ACT 112: Negative or not required by law. The above report was generated using voice recognition software. It may contain grammatical, syntax or spelling errors. Electronically signed by: Juan J Abad M.D. 06/19/2024 3:00 PM Head CTA 06/19/24 14:25 CT angio head w con CLINICAL HISTORY: 69 years-old Female with neuro deficit, acute stroke suspected. Acute stroke like symptoms COMPARISON STUDY: Head CT of same day, CTA head 05/13/2022. TECHNIQUE: Following the IV administration of 118 cc of Optiray, CT angiogram of the brain was performed from the skull base to the vertex. Images are reviewed in the axial, sagittal, and coronal planes. 3-D MIPS images are created and assessed. IV contrast was administered without complication. All measurements were obtained according to NASCET criteria. A dose lowering technique was utilized adhering to the principles of ALARA. FINDINGS: CT BRAIN: Dictated separately CT ANGIOGRAM OF THE BRAIN: The imaged bilateral internal carotid arteries are patent. The bilateral anterior and middle cerebral arteries are also patent. The vertebrobasilar system and posterior cerebral arteries are widely patent. origin of the right posterior cerebral artery. There is no aneurysm, high-grade stenosis, or proximal branch occlusion identified. Dural sinuses appear patent. There is dilation and tortuosity involving the bilateral superior ophthalmic veins which has progressed from the 2022 study. IMPRESSION: 1. CTA of the head demonstrates no aneurysm, dissection, high-grade stenosis or arterial occlusion. 2. Dilation of the bilateral superior ophthalmic veins has progressed compared to the 2022 study. Nonemergent follow-up with ophthalmology recommended in order to exclude low flow carotid cavernous fistula. ACT 112: Negative or not required by law. The above report was generated using voice recognition software. It may contain grammatical, syntax or spelling errors. Electronically signed by: Juan J Abad M.D. 06/19/2024 3:07 PM Neck CTA 06/19/24 14:25 CT ANGIOGRAPHY OF THE NECK WITH CONTRAST CLINICAL HISTORY: neuro deficit, acute stroke suspected COMPARISON STUDY: CTA of the neck May 13, 2022. Technique: CT angiography of the carotid and vertebral arteries was obtained using Optiray and 3D reconstruction on an independent workstation. NASCET criteria was utilized. Automated exposure control was utilized for the study. A dose lowering technique was utilized adhering to the principles of ALARA. CT DOSE: 2282.97 mGy.cm Findings: Incidental note is made of ground glass opacities within visualized portions of the lung apices. A prominent prevascular lymph node on image 16 of 353 measures 1.8 x 1 cm. A right paratracheal lymph node on image 34 measures 1.5 x 1.4 cm. There is no cervical spine fracture. This exam is mildly compromised by artifact. The bilateral common carotid, cervical internal carotid and vertebral arteries are patent. There is moderate plaque within the carotid bifurcations without stenosis. There is no aneurysm or dissection within the neck. IMPRESSION: 1. Moderate atherosclerotic plaque within the carotid bifurcations without stenosis. 2. No aneurysm or dissection within the neck. 3. Groundglass opacities within the visualized lung apices. The findings may represent an infectious process or pulmonary edema. 4. Prominent prevascular and right paratracheal lymph nodes which are likely reactive. A chest CT in 3 months to ensure resolution is recommended. ACT 112: Negative or not required by law. Electronically signed by: Ovidio Dunn M.D. 06/19/2024 3:17 PM Abdomen/Pelvis CT 06/19/24 16:17 EXAM: CT abd pelvis wo con CLINICAL HISTORY: Left abd/hip pain. TECHNIQUE: Non-contrast CT of the abdomen and pelvis was performed, with the following protocol: axial images, and reconstructed coronal and sagittal images. No intravenous contrast was administered. One of the following dose reduction techniques was utilized for this exam: Automated exposure control, adjustment of the mA and/or kV according to patient size, and use of iterative reconstruction. COMPARISON: 09/14/2023 FINDINGS: Abdomen: Liver: Normal in size, shape, and density. No focal lesions, cysts, or masses were identified. Gallbladder and Biliary System: The gallbladder is normal in size and shape. No wall thickening, pericholecystic fluid, or gallstones were identified. Pancreas: Pancreatic head, body, and tail are visualized and appear normal in size and density. No pancreatic masses or calcifications were noted. Spleen: Normal in size, shape, and density. No splenic lesions or masses were identified. Kidneys and Adrenal Glands: Both kidneys are normal in size, shape, and position. Cortical thickness is within normal limits. No renal calculi or hydronephrosis. Opacified pelvicalyceal systems by contrast ( excretory phase of previous IV contrast ) Right adrenal gland ovoid shaped soft tissue nodule measuring 15 x 17 mm along maximum transverse diameters . left Adrenal gland is unremarkable. Appendix: The appendix is not visualized with a linear dense suture at the base of cecum likely sequela of previous surgery Pelvis: Urinary Bladder: Normal in contour and wall thickness. No intraluminal lesions ( distended by contrast ) . Uterus: Normal in size and contour. No masses or abnormal thickening. Ovaries: Not well visualized but no gross abnormalities noted. Peritoneal and Retroperitoneal Structures: No free fluid or abnormal fluid collections were identified within the abdomen or pelvis. No lymphadenopathy was noted. Tiny calcific structure is seen just deep to the anterior abdominal wall along the posterior wall of the right rectus sheath at the level of the umbilicus. calcific lymph node Bowel: Multiple tiny diverticular outpouchings are seen within the sigmoid colon and to a lesser extent the descending colon with clear adjacent pericolic fat planes. No evidence of bowel obstruction or wall thickening. Anterior abdominal wall small paraumblical hernia with fat content through a small defect measuring 18 mm. Bones and Soft Tissues: Spondylotic changes of the lumbar spine with wedge compression fracture of L4 vertebral body as well as L4-L5 grade I degenerative spondylolisthesis Bilateral Hip point osteoarthritic changes Diffuse edema of the left anterolateral abdominal wall at left iliac fossa and left lumbar region Diffuse aortic calcific atheromatous changes The lower chest cuts revealed bilateral basal thin atelectatic plates with interstitial septal thickening IMPRESSION: 1. Non-complicated diverticular disease of the sigmoid colon. 2. Right adrenal nodule measuring 15 x 17mm, for further evaluation. 3. Anterior abdominal wall small paraumbilical hernia with fat content. 4. Diffuse edema of the left anterolateral abdominal wall. 5. Spondylotic changes of the lumbar spine with wedge compression fracture of L4 vertebral body as well as L4-L5 grade I degenerative spondylolisthesis. 6. Bilateral hip joint osteoarthritic changes. 7. No significant change from the prior. Electronically signed by Donald Alberts 06-19-2024 6:[address] 06/19/24 16:17 EXAM: CT head/brain wo con CLINICAL HISTORY: SUE s/p TNK. TECHNIQUE: Axial non-contrast CT scan of the brain was performed from the skull base to the high parietal region. One of the following dose reduction techniques were utilized for this exam: Automated exposure control, adjustment of the mA and/or kV according to patient size, use of iterative reconstruction. COMPARISON: Compared to 01.24.2024. FINDINGS: Ill-defined right temporal extra-axial area of relative hyperdensity just posterior to the right petrous bone, measuring about 2 x 1.5 cm (new finding). Brain Parenchyma: prominent ventricular system. No midline shift. Bilateral periventricular hypodensities and white matter foci of hypodensity. Ventricular System: No evidence of hydrocephalus. Subarachnoid Spaces: widened sulci and cisterns. No evidence of subarachnoid hemorrhage or extra-axial fluid collections. Cerebellum and Brainstem: Normal size and signal. No masses, lesions, or areas of abnormal density. Orbits: Normal appearance of the globes, optic nerves, and extraocular muscles. No evidence of orbital masses or abnormal density. Sinuses: Clear paranasal sinuses. No evidence of sinusitis or mucosal thickening. Mastoid Air Cells: Clear mastoid air cells. No evidence of mastoiditis. Skull: Normal skull morphology. IMPRESSION: 1. Ill-defined right temporal extra-axial area of relative hyperdensity just posterior to the right petrous bone, measuring about 2 x 1.5 cm (new finding). Possible artifactual however low suspicion of possible hematoma could not be excluded. Further MRI assessment is advised. 2. Stable course regarding the brain atrophic changes with old lacunar ischemic foci. [facility] ER was called at [phone] at 04:32 PM WARES SORTER, 06/19/2024, and Otoniel Walker was informed regarding the presence of critical medical findings in the report. Electronically signed by Donald Alberts 06-19-2024 5:[address] 06/19/24 18:04 EXAM: CT head/brain wo con CLINICAL HISTORY: headache s/p TNK, re-eval Bleed vs artifact. TECHNIQUE: Axial non-contrast CT scan of the brain was performed from the skull base to the high parietal region. One of the following dose reduction techniques was utilized for this exam: Automated exposure control, adjustment of the mA and/or kV according to patient size, and use of iterative reconstruction. COMPARISON: Prior 06/19/2024 15:22:41 WARES SORTER FINDINGS: Brain Parenchyma: Previously noted, the extra-axial area of hyperdensity in the posterior cranial fossa, posterior to the petrous part of the temporal bone, is artifactual rather than being hemorrhage on comparison. No evidence of acute infarct, hemorrhage, or mass effect. No intracerebral hematoma or mass effect or territorial infarction There are a few tiny, ill-defined [id number] areas noted in the periventricular white matter bilaterally, suggestive of microvascular ischemic changes. The ventricular system, cortical sulci, and basal cisterns are prominent, consistent with senile changes. The rest of the visualized brain parenchyma shows a normal appearance. Nicholson-white matter differentiation is maintained. No midline shifts or deformity. Normal CT appearance of the posterior fossa structures, namely the cerebellar hemispheres, brainstem, and cerebellar peduncles The cerebello-pontine angles are clear. The osseous structures in the skull base are unremarkable. No definite calvarium fractures. The scanned paranasal sinuses are clear. IMPRESSION: Previously noted, the extra-axial area of hyperdensity in the posterior cranial fossa, posterior to the petrous part of the temporal bone, is artifactual rather than being hemorrhage on comparison. No acute abnormalities Microvascular ischemic changes and senile changes. Electronically signed by Donald Alberts 06-19-2024 7:31 PM Brain MRI 06/19/24 20:26 EXAM: MR brain wo con CLINICAL HISTORY: cva sp tnk TECHNIQUE: Multisequential and multiplanar images of the brain were submitted for review without contrast. COMPARISON: FINDINGS: Generalized parenchymal atrophy is appreciated. Scattered foci of increased T2/FLAIR signal abnormality are identified within the bilateral periventricular and subcortical white matter, and are most commonly associated with chronic small vessel ischemic disease. No focal parenchymal lesions are seen. No intracranial hemorrhage, mass effect, midline shift, extra-axial collection, or hydrocephalus is identified. Ventricles, sulci, and basal cisterns are symmetric and normal in size and configuration. Diffusion-weighted sequences show no evidence of acute ischemic infarction. Midline structures including the pituitary gland, corpus callosum, pineal region, and brainstem are unremarkable. The craniovertebral junction is within normal limits. No calvarial abnormalities are identified. The paranasal sinuses and mastoid air cells are clear. Orbital structures are unremarkable. Appropriate flow voids are present in the visualized intracranial vessels. IMPRESSION: 1. No acute ischemia, space occupying mass, or other acute intracranial pathology is demonstrated. 2. Chronic small vessel ischemic disease.-stable. 3. Diffuse cerebral atrophy.-stable. No other new interval abnormality since prior study. Electronically signed by Robert Kilpatrick 06-20-2024 12:[address] 06/19/24 21:03 Exam(s): CT LEFT HIP Without Contrast EXAM: CT Left Lower Extremity Without Intravenous Contrast, Hip CLINICAL HISTORY: Reason for exam: L hip pain (use CTAP images). TECHNIQUE: Axial computed tomography images of the left hip without intravenous contrast. CTDI is 0 mGy and DLP is 0 mGy-cm. Automated exposure control was utilized for the study. A dose lowering technique was utilized adhering to the principles of ALARA. COMPARISON: No relevant prior studies available. FINDINGS: Bones/joints: Mild osteoarthritis of the left hip. No acute fracture or dislocation. Soft tissues: Unremarkable. IMPRESSION: No acute findings in the left hip. Electronically signed by: Torrey Parker M.D. 06/19/24 23:36 PM Medications Administered Home Medications Medication Instructions Recorded Confirmed Last Taken aspirin 81 mg tablet,delayed 81 mg PO QAM 07/28/23 06/19/24 09/13/23 release dupilumab 300 mg/2 mL subcutaneous 300 mg subcut Q14D 09/14/23 06/19/24 10/19/23 17:00 pen injector (Dupixent) lisinopril 10 mg tablet 10 mg PO QAM 09/14/23 06/19/24 10/26/23 21:00 ascorbic acid (vitamin C) 250 mg 250 mg PO QAM #30 tabs 11/03/23 06/19/24 Unkn own tablet atorvastatin 80 mg tablet 80 mg PO QPM #30 tabs 11/03/23 06/19/24 Unknown betamethasone dipropionate 0.05 % 1 applic topical BID PRN RASH 11/03/23 06/19/24 Unknown topical ointment FACE/TRUNK/ARMS #15 grams buspirone 10 mg tablet 10 mg PO BID #60 tabs 11/03/23 06/19/24 Unknown calcipotriene 0.005 % topical cream 1 applic topical DAILY PRN flare 11/03/23 06/19/24 Unknown up #60 grams cholecalciferol (vitamin D3) 25 1,000 unit PO QAM #30 tabs 11/03/23 06/19/24 Unknown mcg (1,000 unit) tablet (Vitamin D3) clotrimazole 1 % topical cream 1 applic topical BID PRN Itching 11/03/23 06/19/24 Unknown #45 grams cyanocobalamin (vitamin B-12) 1,000 mcg PO QAM #30 tabs 11/03/23 06/19/24 Unknown 1,000 mcg tablet (Vitamin B-12) docusate sodium 100 mg capsule 100 mg PO BID #60 caps 11/03/23 06/19/24 Unknown (Colace) doxepin 25 mg capsule 25 mg PO HS #30 caps 11/03/23 06/19/24 Unknown duloxetine 60 mg capsule,delayed 120 mg (2 x 60 mg) PO QAM #60 caps 11/03/23 06/19/24 Unknown release (Cymbalta) fish, borage, flaxseed oils-omega 1 cap PO QAM #30 caps 11/03/23 06/19/24 Unknown 3,6,9 comb no.1 1,200 mg capsule ([place] 3-6-9) folic acid 800 mcg tablet 0.8 mg PO QAM #30 tabs 11/03/23 06/19/24 Unknown memantine 10 mg tablet 10 mg PO BID #60 tabs 11/03/23 06/19/24 Unknown metoprolol succinate 25 mg 12.5 mg (1/2 x 25 mg) PO BID #30 11/03/23 06/19/24 Unknown tablet,extended release 24 hr tabs miconazole nitrate 2 % topical 1 applic topical BID #85 grams 11/03/23 06/19/24 Unknown powder (Desenex) oxybutynin chloride 5 mg 5 mg PO QPM #30 tabs 11/03/23 06/19/24 Unknown tablet,extended release 24 hr oxycodone 5 mg tablet 5 mg PO Q6H PRN pain level 6-10 on 11/03/23 06/19/24 Unknown a 1-10 scale #5 tabs polyethylene glycol 3350 17 gram 17 g PO DAILY PRN constipation #30 11/03/23 06/19/24 Unknown oral powder packet (Miralax) ea sodium chloride 0.65 % nasal spray 2 spray NA Q6H #44 mL 11/03/23 06/19/24 Unknown aerosol (Saline Mist) sumatriptan succinate 25 mg tablet 25 mg PO DIRECTED PRN Migraine 11/03/23 06/19/24 Unknown Headache #30 tabs tacrolimus 0.1 % topical ointment 1 applic topical BID PRN itching 11/03/23 06/19/24 Unknown #30 grams tamsulosin 0.4 mg capsule 0.4 mg PO QAM #30 caps 11/03/23 06/19/24 Unknown furosemide 20 mg tablet (Lasix) 20 mg PO DAILY #3 tabs 02/20/24 06/19/24 06/14/24 Active Medications Generic Name Dose Route Start Last Admin Trade Name Freq PRN Reason Stop Dose Admin Atorvastatin Calcium 80 mg 06/19/24 21:00 06/19/24 20:59 Atorvastatin 40 Mg Tab PO 07/19/24 20:59 80 mg QPM PEGGY Administration Buspirone HCl 10 mg 06/19/24 21:00 06/20/24 08:20 Buspirone 5 Mg Tab PO 07/19/24 20:59 10 mg BID PEGGY Administration Cyanocobalamin 1,000 mcg 06/20/24 09:00 06/20/24 08:20 Cyanocobalamin (B-12) 500 Mcg Tablet PO 07/20/24 08:59 1,000 mcg QAM PEGGY Administration Docusate Sodium 100 mg 06/19/24 21:00 06/20/24 08:22 Docusate Sodium 100 Mg Cap PO 07/19/24 20:59 100 mg BID PEGGY Administration Doxepin HCl 25 mg 06/19/24 21:00 06/19/24 20:57 Doxepin Hcl 25 Mg Capsule PO 07/19/24 20:59 25 mg HS PEGGY Administration Duloxetine HCl 120 mg 06/20/24 09:00 06/20/24 08:19 Duloxetine Hcl 60 Mg Cap PO 07/20/24 08:59 120 mg QAM PEGGY Administration Folic Acid 800 mcg 06/20/24 09:00 06/20/24 08:20 Folic Acid 400 Mcg Tab PO 07/20/24 08:59 800 mcg QAM PEGGY Administration Furosemide 20 mg 06/20/24 11:00 06/20/24 10:56 Furosemide 20 Mg Tab PO 07/20/24 10:59 20 mg DAILY PEGGY Administration Lorazepam 0.5 mg 06/19/24 20:25 06/19/24 22:50 Lorazepam 0.5 Mg Tab PO 07/19/24 20:24 0.5 mg TID PRN Administration Anxiety Memantine 10 mg 06/19/24 21:00 06/20/24 08:20 Memantine Hcl 10 Mg Tab PO 07/19/24 20:59 10 mg BID PEGGY Administration Metoprolol Succinate 12.5 mg 06/20/24 09:00 06/20/24 08:20 Metoprolol Succ 25mg Ext Rel Tab PO 07/20/24 08:59 12.5 mg BID PEGGY Administration Miscellaneous 1 each 06/19/24 21:00 06/19/24 22:41 Icu Protocol For Hyperglycemia N/A 06/21/24 20:59 1 each ACHS PEGGY Administration Oxybutynin Chloride 5 mg 06/19/24 21:00 06/19/24 20:58 Oxybutynin Chloride Xl 5 Mg Tabcr PO 07/19/24 20:59 5 mg QPM PEGGY Administration Oxycodone HCl 5 - 10 mg 06/19/24 20:25 06/20/24 04:05 Oxycodone Hcl Ir 5 Mg Tab (Immediate Release) PO 07/03/24 20:24 10 mg QID PRN Administration Pain Pantoprazole Sodium 40 mg 06/20/24 09:00 06/20/24 10:50 Pantoprazole 40 Mg Tab PO 07/20/24 08:59 40 mg QAM PEGGY Administration Tamsulosin HCl 0.4 mg 06/20/24 09:00 06/20/24 08:20 Tamsulosin Hcl 0.4 Mg Cap PO 07/20/24 08:59 0.4 mg QAM [facility] Administration Vitamin D 25 mcg 06/20/24 09:00 06/20/24 08:20 Cholecalciferol 25 Mcg (1000 Units) Tab PO 07/20/24 08:59 25 mcg QAM PEGGY Administration
--- NOTE | 2024-06-20 16:24 | CT Scan Report ---
Technique: Axial computed tomography images were obtained of the brain without intravenous contrast. Comparison is made to the prior CT and MRI examinations dated 06/19/2024 Findings: There is diffuse cerebral atrophy, within expected limits for the patient's age. Areas of decreased attenuation are seen within the periventricular white matter, likely representing chronic small vessel ischemic disease. There is no definite sign of acute or old infarction. No intracranial hemorrhage is evident. No definite mass lesion is seen on this noncontrast examination. There is no midline shift or other form of herniation. No hydrocephalus is seen. No fracture is identified. The orbits and the visualized paranasal sinuses appear unremarkable. The mastoid air cells appear clear. Impression: 1. Cerebral atrophy and chronic small vessel ischemic disease 2. Otherwise unremarkable noncontrast CT of the brain Electronically signed by Judah Hatfield 06-20-2024 4:23 PM
[2024-06-20] MEDS ORDERED: SUMAtriptan succinate 25 MG TAB PO PRN ×2 (16:26→16:40)
[2024-06-20] MEDS: ACETAMINOPHEN 325 MG TAB PO PRN (17:12)
[2024-06-20 17:43] LABS: BUN Creatinine Ratio 22.6 (10-20); Calcium 9.6 mg/dl (8.6-10.3); Creatinine Clr Calc Pharmacy 58.4 ml/min; Potassium 4.6 mmol/L (3.5-5.1)
[2024-06-21] MEDS: HYDROmorphone INJ 1 MG/ML SYRINGE IV PRN (03:19)
[2024-06-21 06:39] LABS: Hematocrit (blood only) 27.8 % (37.0-47.0); Hemoglobin 8.5 g/dl (12.0-16.0); Mean Corpuscular Hemoglobin 27.5 pg (25.0-34.0); Mean Corpuscular Hgb Conc 30.6 g/dL (32.0-36.0); Mean Platelet Volume 11.8 fL (9.4-12.4); Platelet Count 144 K/uL (130-400); RDW Coefficient of Variation 15.6 % (11.5-14.5); RDW Standard Deviation 51.7 fL (36.4-46.3); Red Blood Count 3.09 M/uL (4.20-5.40); White Blood Count 6.25 K/ul (4.8-10.8)
[2024-06-21 06:58] LABS: BUN Creatinine Ratio 23.6 (10-20); Magnesium 2.1 mg/dl (1.7-2.4); Potassium 4.4 mmol/L (3.5-5.1)
[2024-06-21] MEDS: CLOPIDOGREL BISULFATE 75 MG TAB PO SCH (08:57)
[2024-06-21] MEDS: ASPIRIN 81 MG ECTAB PO SCH (08:58)
--- NOTE | 2024-06-21 11:11 | Pharmacy Report ---
- Date of Service June 21, 2024 - Pharmacy CVA/TIA Medication Review Medications to Prevent Stroke handout has been added to the patients discharge packet. Antiplatelet(s) * Aspirin 81mg daily + clopidogrel 75mg daily Cholesterol * High intensity statin: atorvastatin 80 mg daily DVT Prophylaxis * SCD knee Therapeutic Anticoagulation * Hx Afib/Aflutter noted--patient is s/p watchman procedure Type 2 Diabetes * Patient does not have T2DM
[2024-06-21] MEDS ORDERED: STROKE PATIENT DISCHARGE STA (13:39)
--- NOTE | 2024-06-21 13:42 | Discharge Summary ---
Date of Service June 21, 2024 Admission HPI Per Admitting Provider History obtained from patient and records. Medical history significant for chronic diastolic heart failure (EF 55%, TTE 2024), nonocclusive CAD, valvular heart disease (severe /mild AR/TR), PSVT, paroxysmal atrial flutter status post Watchman procedure, history of PE, hypertension, LILY as per records, pulmonary hypertension, CRI (baseline creatinine 1.5-1.6), chronic anemia (baseline hemoglobin 8-9 ), adrenal adenoma as per records, IBS, bullous pemphigoid, migraine, anxiety/mood disorder, chronic back pain/compression fractures, recurrent falls, chronic venous insufficiency, urinary incontinence, past tobacco abuse. Last confinement October 2023 for traumatic left knee wound secondary to mechanical fall. Patient discharged to [facility] for rehab before going home. [facility] on follow-up visit for traumatic left lower leg open wound with delayed healing. Debridement done at the office. Patient complains of new onset left leg weakness and numbness while at the waiting room. Denies chest pain or cough symptoms. Usual SOB. Patient with worsening achy low back pain with radiation to left leg the last few weeks. No fever, no chills. Patient sent to ER for evaluation. Stroke alert called upon arrival at the ER. IV TNK administered [place] [facility] [place]. Improved left leg weakness. Headache and epistaxis noted at the ER. Lowest O2 sats of 80s documented at the ER. Medical History as above Surgical History : Knee surgery right, urologic procedures, appendectomy, Watchman procedure, hysteroscopy, endometrial ablation knee surgery Family History : Colon cancer, DM, heart disease, stroke Personal/Social history : Past tobacco abuse, no EtOH intake, retired [employer] employee, lives with sister Admission Exam Per Admitting Provider GENERAL: slightly uncomfortable, morbidly obese, no respiratory distress SKIN: Pallor, warm HEENT: Dried blood noted over nostrils, pale palpebral conjunctivae, no ptosis, dry buccal mucosa NECK : Supple, short neck, no tenderness CHEST : Decreased breath sounds, scattered expiratory wheezes, no tenderness HEART : RRR, systolic murmur ABDOMEN: Some distention, nontender EXTREMITIES : Minimal left hip tenderness, dressing LLE, no other conspicuous deformities noted NEUROLOGIC : Coherent, no facial asymmetry, MMTs BUE 4/5, gait and stance not assessed Principal Diagnosis Left leg weakness, improved post TNK administration Possible CVA Abnormal CT head Abnormal CTA neck Transient hypoxemic respiratory failure secondary to subacute heart failure hx diastolic dysfunction hx valvular heart disease (severe /mild AR/TR) Discharge Exam GENERAL: NAD, morbidly obese, no respiratory distress SKIN: Pallor, warm HEENT: EOMI, PERRLA NECK : Supple, short neck, no tenderness CHEST : Decreased breath sounds, bb crackles, no tenderness HEART : RRR, systolic murmur ABDOMEN: no distention, nontender EXTREMITIES : trace ble edema, non tender ble. NEUROLOGIC : Coherent, no facial asymmetry, MMTs BUE 5/5 and ble 5/5, gait and stance not assessed Discharge Data Allergies Allergy/AdvReac Type Severity Reaction Status Date / Time egg AdvReac Intermediate GI upset Verified 06/19/24 13:10 ibuprofen AdvReac Intermediate stomach Verified 06/19/24 13:10 irritation morphine AdvReac Intermediate LEGS SWELL Verified 06/19/24 13:10 Consultations 06/19/24 17:17 ED Decision to Admit Stat 06/19/24 20:23 Consult Neurology Routine 06/19/24 20:49 Consult Customer Counter Representative Routine Ordered Studies 06/19/24 14:25 CT angio head w con Stat CT angio neck with con Stat CT head/brain wo con Stat 06/19/24 16:17 CT abd pelvis wo con Stat CT head/brain wo con Stat 06/19/24 18:04 CT head/brain wo con Stat 06/19/24 20:26 MR brain wo con Routine 06/19/24 21:03 CT hip LT wo con Routine 06/20/24 15:30 CT head/brain wo con Stat Hospital Course (1) Left leg weakness: 69 yo F w/ PMH of chronic diastolic heart failure (EF 55%, TTE 2024), nonocclusive CAD, valvular heart disease (severe /mild AR/TR), PSVT, paroxysmal atrial flutter s/p Watchman procedure, history of PE, hypertension, LILY as per records, pulmonary hypertension, CRI (baseline creatinine 1.5-1.6), chronic anemia (baseline hemoglobin 8-9 ), adrenal adenoma as per records, IBS, bullous pemphigoid, migraine, anxiety/mood disorder, chronic back pain/compression fractures, recurrent falls, chronic venous insufficiency, urinary incontinence, past tobacco abuse presents from wound care center due to new onset left leg weakness and numbness while at waiting room. IV TNK administered [place] [facility] [place] recommendations f/b improved left leg weakness. She was managed for the following: Left leg weakness, improved post TNK administration Possible CVA Patient presents with LLE weakness and numbness. Improved with TNK admini stration. CT head and neck imagings and MRI brain reviewed. Follow-up with repeat CT head later in the day--no bleed. Neurochecks, PT/OT, telemetry monitoring. Neuro consult, DAPT started. Abnormal CT head: Dilation of the bilateral superior ophthalmic veins has progressed compared to 2022 study. Ophthalmology follow-up as an outpatient to exclude low-flow carotid-cavernous fistula. Abnormal CTA neck: Prominent prevascular and right paratracheal lymph nodes which are likely reactive. A chest CT in 3 months to ensure resolution is recommended. Transient hypoxemic respiratory failure secondary to subacute heart failure hx diastolic dysfunction hx valvular heart disease (severe /mild AR/TR) Admitting CXR w/ pul edema. ABG reviewed, hypoxemia noted. s/p IV Lasix 1 dose at presentation, strict I/O's, daily weights, CHF education c/w home lasix. Other chronic medical conditions: Continue with/resume home meds as and when able. PSVT paroxysmal atrial flutter status post Watchman procedure history of PE hypertension, stable LILY as per records pulmonary hypertension CRI, creatinine better than baseline for now. Chronic anemia, hemoglobin at baseline adrenal adenoma, known outpatient diagnosis, f/u OP providers as prior for ongoing w/u. bullous pemphigoid, stable on Dupixent chronic back pain/compression fractures, c/w pain mx. recurrent falls chronic venous insufficiency past tobacco abuse DVT prophylaxis. SCDs Re: epistaxis DNR as per patient's prior directives. Patient sister Ms. Michaela Paulino, contact #[phone]. Patient is being discharged to [facility] with following instructions at the point of discharge: Follow-up with your primary care physician within a week time and likely you will need labs CBC/CMP/magnesium/phosphorus. You are treated for possible stroke, you received TNK while in hospital. You are being discharged on aspirin and Plavix, continue Plavix for total of 21 days starting 06/21/2024, continue aspirin indefinitely. Avoid omeprazole while on Plavix. You were noted to have abnormal CT scan of your head indicating issues with your veins to your eyes. Recommend that you follow-up with ophthalmology in 1 to 2 weeks time upon discharge. Coordinate with your PCP office to set up the referral. You are noted to have abnormal CT scan of your neck, you were noted to have prominent lymph nodes which could likely be reactive but you will need a CT scan of the chest in 3 months time to document resolution of these lymph nodes. Coordinate with your PCP office to set up the test. You will benefit from outpatient sleep study to evaluate for LILY, communicate with your PCP office to set up the test. Take your medications as prescribed. Please make sure that you are able to get your medications today by calling your pharmacy before you leave the hospital so that your treatment continuity is not broken. Text document was generated using [email or web address] voice recognition software. It may contain grammatical or spelling errors. Kindly contact undersigned for clarification of any documentation item in question. Home Health Attestation I certify that this patient is under my care and that I, or a physicians commercial lending assistant working with me, had a face to-face encounter that meets the home health [id number] encounter requirements with this patient. The encounter with the patient was in whole, or in part, for the following medical condition, which is the primary reason for home health care (list medical condition): I certify that, based on my findings, the following services are medically necessary home health services: My clinical findings support the need for the above services because: Further, I certify that my clinical findings support that this patient is homebound (i.e. absences from home require considerable and taxing effort and are for medical reasons or buddhist services or infrequently or of short duration when for other reasons) because: Certification for Home Health Services: Based on the above findings, I certify that this patient is confined to the home and needs intermittent alf care, physical therapy and/or speech therapy or continues to need occupational therapy. The patient is under my care, and I have initiated the establishment of the plan of care. This patient will be followed by a physician who will periodically review the plan of care. Total Time Total Time Spent Total Time Spent (In Minutes): 35 Discharge Plan Discharge Items Patient Disposition: Transfer Inpatient Rehab Fac Reason For Visit: L SIDED WEAKNESS SP TNK Discharge Diagnosis: Left leg weakness, improved post TNK administration Possible CVA Abnormal CT head Abnormal CTA neck Transient hypoxemic respiratory failure secondary to subacute heart failure hx diastolic dysfunction hx valvular heart disease (severe /mild AR/TR) Condition on Discharge: Fair Activity: As commented below Activity Comment: Continue with physical therapy at rehab facility. Non-emergency contact: Primary Care Provider Call non-emergency contact if: you have any medication questions and your symptoms worsen Follow-up/Referrals: Nikunj Plascencia MD [Primary Care Provider] - Diet: Heart Healthy Addtl Attending Provider Instructions: Follow-up with your primary care physician within a week time and likely you will need labs CBC/CMP/magnesium/phosphorus. You are treated for possible stroke, you received TNK while in hospital. You are being discharged on aspirin and Plavix, continue Plavix for total of 21 days starting 06/21/2024, continue aspirin indefinitely. Avoid omeprazole while on Plavix. You were noted to have abnormal CT scan of your head indicating issues with your veins to your eyes. Recommend that you follow-up with ophthalmology in 1 to 2 weeks time upon discharge. Coordinate with your PCP office to set up the referral. You are noted to have abnormal CT scan of your neck, you were noted to have prominent lymph nodes which could likely be reactive but you will need a CT scan of the chest in 3 months time to document resolution of these lymph nodes. Coordinate with your PCP office to set up the test. You will benefit from outpatient sleep study to evaluate for LILY, communicate with your PCP office to set up the test. Take your medications as prescribed. Please make sure that you are able to get your medications today by calling your pharmacy before you leave the hospital so that your treatment continuity is not broken. Pending Studies at Discharge: No Stand-Alone Forms: [employer], Medications to Prevent Stroke Skilled Items Patient informed of condition?: Yes DNR: Yes Discharge Level of Care: Acute rehab Communicable Disease: No Discharge Prognosis: Stable Lines: None Urinary Catheter: No Medications and DC Order Prescriptions: New clopidogrel 75 mg Tablet 75 mg PO QAM 20 Days Qty: 20 0RF pantoprazole 40 mg Tablet,Delayed Release (Dr/Ec) 40 mg PO QAM Qty: 30 0RF Continued aspirin 81 mg Tablet,Delayed Release (Dr/Ec) 81 mg PO QAM Hold Instructions: Resume on 11/09/23. Dupixent Pen 300 mg/2 mL pen injector 300 mg SUBCUT Q14D Rx Instructions: q 2 weeks atorvastatin 80 mg tablet 80 mg PO QPM Qty: 30 0RF polyethylene glycol 3350 [Miralax] 17 gram Powder In Packet 17 g PO DAILY PRN (Reason: constipation) Qty: 30 0RF doxepin 25 mg capsule 25 mg PO HS Qty: 30 0RF sumatriptan succinate 25 mg tablet 25 mg PO DIRECTED MDD 5 TABS/24 HOURS PRN (Reason: Migraine Headache) Qty: 30 0RF Rx Instructions: TAKE 50 MG AT ONSET OF SUE, THEN MAY REPEAT WITH 25 MG EVERY 2 HOURS NEEDED. MAX 5 TABS IN 24 HOURS. miconazole nitrate [Desenex] 2 % powder 1 applic topical BID Qty: 85 0RF cyanocobalamin (vitamin B-12) [Vitamin B-12] 1,000 mcg Tablet 1,000 mcg PO QAM Qty: 30 0RF tamsulosin 0.4 mg capsule 0.4 mg PO QAM Qty: 30 0RF ascorbic acid (vitamin C) 250 mg Tablet 250 mg PO QAM Qty: 30 0RF tacrolimus 0.1 % Ointment 1 applic TOPICAL BID PRN (Reason: itching) Qty: 30 0RF calcipotriene 0.005 % cream 1 applic TOPICAL DAILY PRN (Reason: flare up) Qty: 60 0RF buspirone 10 mg tablet 10 mg PO BID Qty: 60 0RF docusate sodium [Colace] 100 mg capsule 100 mg PO BID Qty: 60 0RF oxybutynin chloride 5 mg tablet extended release 24hr 5 mg PO QPM Qty: 30 0RF metoprolol succinate 25 mg Tablet Extended Release 24 Hr 12.5 mg PO BID Qty: 30 0RF Rx Instructions: hold for systolic BP<100,Heartbeat <60 betamethasone dipropionate 0.05 % Ointment 1 applic TOPICAL BID PRN (Reason: RASH FACE/TRUNK/ARMS) Qty: 15 0RF clotrimazole 1 % Cream 1 applic TOPICAL BID PRN (Reason: Itching) Qty: 45 0RF folic acid 800 mcg Tablet 0.8 mg PO QAM Qty: 30 0RF oxycodone 5 mg tablet 5 mg PO Q6H PRN (Reason: pain level 6-10 on a 1-10 scale) Qty: 5 0RF Saline Mist 0.65 % aerosol,spray 2 spray NA Q6H Qty: 44 0RF memantine 10 mg tablet 10 mg PO BID Qty: 60 0RF duloxetine [Cymbalta] 60 mg capsule,delayed release(DR/EC) 120 mg PO QAM Qty: 60 0RF cholecalciferol (vitamin D3) [Vitamin D3] 1,000 unit Tablet 1,000 unit PO QAM Qty: 30 0RF [place] 3-6-9 1,200 mg Capsule 1 cap PO QAM Qty: 30 0RF Rx Instructions: FORMULA HAS GREEN TEA furosemide [Lasix] 20 mg tablet 20 mg PO DAILY Qty: 3 0RF Held lisinopril 10 mg tablet 10 mg PO QAM Hold Instructions: Resume on 06/24/24. Discharge Orders: Discharge Order (Routine); Ordered 06/21/24 Ordered By: Jyotsna Garcia Admission Data Admit Date/Time: 06/19/24 19:44 Attending Provider: Jyotsna Garcia Admit Provider: Mark Nguyen Primary Care Provider: Nikunj Plascencia Other Providers: [facility]; [facility]; Mark Nguyen; Felicia Saenz; Ernesto Landeros; Felicia Lares; Trip Bowman; Danie Kendrick; Lorenzo Perry; Nikunj Camacho; Maame Ibrahim; Kem Galindo; Cristino Faulkner; Lilian Lizarraga; Marcellus Faria; Stefani Peck; Pat Valera; Nikunj Cabrera; Brittany Hairston; John Schaffer
[2024-06-21 15:12] VITALS: BP 110/67; RESP 18; TEMP 97.7; O2SAT 95
[2024-06-21 18:14] VITALS: PULSE 78
--- NOTE | 2024-06-22 14:58 | Electrocardiogram Report ---
Test Reason : Blood Pressure : */* mmHG Vent. Rate : 79 BPM Atrial Rate : 79 BPM P-R Int : 146 ms QRS Dur : 82 ms QT Int : 384 ms P-R-T Axes : 22 -10 21 degrees QTcB Int : 440 ms Normal sinus rhythm Normal ECG When compared with ECG of 19-Jun-2024 14:59, (unconfirmed) No significant change was found Confirmed by Ifeoma Faulkner (Heena) on 06/22/2024 2:58:51 PM Referred By: REFERRED SELF Confirmed By: Ifeoma Faulkner
== END 2024-06-21 18:14 | DRG 64 ==
LOC: EDSEX → ED 14:08 → 1E 19:44 → 2S 06-20 18:21

== ENCOUNTER 2024-08-12 11:59 | Observation (INO) ==
[2024-08-12 13:09] LABS: Basophils # (auto) 0.03 K/uL (0.00-0.20); Basophils % (auto) 0.6 %; Eosinophils # (auto) 0.17 K/uL (0.00-0.50); Eosinophils % (auto) 3.6 %; Hematocrit (blood only) 32.5 % (37.0-47.0); Hemoglobin 9.4 g/dl (12.0-16.0); Immature Granulocytes # (auto) 0.01 K/uL (0.01-0.20); Immature Granulocytes % (auto) 0.2 %; Lymphocytes # (auto) 1.74 K/uL (1.20-3.40); Lymphocytes % (auto) 36.8 %; Mean Corpuscular Hemoglobin 25.1 pg (25.0-34.0); Mean Corpuscular Hgb Conc 28.9 g/dL (32.0-36.0); Mean Corpuscular Volume 86.7 fL (80.0-100.0); Mean Platelet Volume 11.3 fL (9.4-12.4); Monocytes # (auto) 0.63 K/uL (0.11-0.59); Monocytes % (auto) 13.3 %; Neutrophils # (auto) 2.15 K/uL (1.40-6.50); Neutrophils % (auto) 45.5 %; Platelet Count 128 K/uL (130-400); RDW Standard Deviation 53.9 fL (36.4-46.3); Red Blood Count 3.75 M/uL (4.20-5.40); White Blood Count 4.73 K/ul (4.8-10.8)
[2024-08-12 13:16] LABS: Albumin Globulin Ratio 1.2 (0.9-2); BUN Creatinine Ratio 23.7 (10-20); Bilirubin,Total 0.4 mg/dl (0.2-1.0); Calcium 9.4 mg/dl (8.6-10.3); Creatinine Clr Calc Pharmacy 55.7 ml/min; Globulin 3.1 gm/dl (2.5-4.0); Potassium 4.4 mmol/L (3.5-5.1); Total Protein 6.8 gm/dl (6.0-8.3)
--- NOTE | 2024-08-12 13:20 | Emergency Department Note ---
Impression & Plan Chest pain, Left leg weakness, Elevated troponin ED Provider Note NAME: BREANN PENA AGE: 69 SEX: F : 1955 ARRIVES VIA: Walk-In INFORMANT: Patient, ED PROVIDER(S): Stoney Mccartney MD CHIEF COMPLAINT: Leg weakness, chest pain MEDICAL DECISION MAKING: Patient presents due to concern for left lower extremity weakness. Not a TNK candidate as the patient has had 3 days of symptoms. Initially the patient could not raise the left leg maybe as well as the right but when asked to show something else on the leg the patient seemed to be able to raise the leg fully off the bed without issue. IV was established and blood work was obtained. Patient's blood work shows leukopenia and anemia with very mild thrombocytopenia at 128. Kidney function with a creatinine 1.39. Initial troponin 22.3. Patient was ordered 324 of aspirin. Chest x-ray shows possibility of CHF. I did speak with the on-call hospital service Dr. Mack and the patient was admitted to the medicine service. Discussion w/ other healthcare providers: None Prior /Outside records reviewed: I reviewed part of a discharge summary from Dr. Garcia. This is from June 2024. Known history of chronic diastolic heart failure with an EF of 55% TTE in 2024 nonocclusive CAD valvular heart disease patient also with a history of paroxysmal SVT flutter status post watchman history PE hypertension pulmonary hypertension chronic anemia adrenal adenoma. Patient reportedly was having some left leg weakness and numbness and sent to the ER. The patient did receive TNK. Patient had improvement in her left leg weakness. Differential diagnosis: Cardiac ischemia, aortic dissection, pulmonary embolism, pneumothorax, pneumonia, pericarditis, myocarditis, GERD, cholecystitis, pancreatitis, musculoskeletal, as well as other pathologies were considered. Diagnostics, as interpreted by me: ECG: Normal sinus rhythm, rate of 82, normal intervals normal axis no ST elevations. No significant change for comparison June 20, 2024. Cardiac monitoring: An order was placed for continuous cardiac monitoring. The monitor shows a rate of 85 with sinus rhythm. Patient was placed on pulse oximetry Medical decision rules: None Imaging studies: I informally interpreted the patient's Chest x-ray does not show evidence of obvious pneumonia with formal report to follow. HPI: Patient presents due to concern for weakness. Patient reports that she had some sort of procedure in her leg and apparently has had some weakness in the left lower extremity that began about 3 days ago. The patient had discussed this with her PCP and is referred here. The patient states that prior to presenting around noon patient did develop some chest pains. Patient states that the chest pain is centralized nonradiating. No reported cough or fever. PAST MEDICAL HISTORY: See Below PAST SURGICAL HISTORY: See Below SOCIAL HISTORY: See Below HOME MEDICATIONS: See Below ALLERGIES: See Below VITALS: See Below PHYSICAL EXAMINATION: GENERAL: NAD, non-toxic. BMI of 51. EYE EXAM: Normal conjunctiva. PERRL, no anisocoria and EOM's grossly intact w/o pain. OROPHARYNX: Moist mucus membranes, grossly normal dentition. NECK: Trachea midline, no stridor. LUNGS: Clear to auscultation. Normal chest wall mechanics. HEART: NSR, no MRG. ABDOMEN: Abdomen soft, non-tender, no masses, no rebound or guarding. SKIN: No rashes and no bruising. UPPER EXTREMITIES: Upper extremities are grossly normal. LOWER EXTREMITIES: Grossly normal, bilateral lower extremity edema. NEURO EXAM: Awake and alert, follows commands, no obvious facial asymmetry, normal speech, moves all 4 extremities. Past Med/Surg History Problem List (Updated 08/17/24 @ 00:48 by Stoney Mccartney MD) Elevated troponin (Acute) Left leg weakness (Acute) CHF (congestive heart failure) Dyspnea on exertion Hypertension (Acute) Chronic back pain (Acute) Thrombolytic medication administered within last 5 days (Acute) Stroke-like symptoms (Acute) Left leg weakness (Acute) Skin tear of left upper extremity (Acute) Chronic venous insufficiency (Chronic) Edema of left lower extremity Traumatic open wound of left lower leg with delayed healing (Acute) Leg wound, left (Acute) Obtunded (Acute) Acute confusion (Acute) Deep laceration of knee (Acute) Fracture, patella (Acute) Encephalopathy Leg laceration Left knee injury Acute kidney injury superimposed on CKD (Acute) Back pain (Acute) Fall (Acute) Right hip pain Hyperkalemia Orthostatic hypotension Hypotension Ambulatory dysfunction (Acute) Metatarsal bone fracture (Acute) Closed fibular fracture (Acute) Fall Presence of Watchman left atrial appendage closure device Paroxysmal atrial fibrillation Bullous pemphigoid Chronic anemia Severe aortic stenosis Closed fracture of proximal end of right fibula Paroxysmal atrial fibrillation Moderate aortic stenosis Atypical chest pain Chest pain (Acute) Acute anterior epistaxis (Acute) Hiatal hernia Uncontrolled hypertension Obesity (Acute) Atrial flutter, paroxysmal Aortic stenosis Bicuspid aortic valve Chronic low back pain GERD (gastroesophageal reflux disease) Dyslipidemia Atrial flutter, paroxysmal Candidal intertrigo DVT prophylaxis Chest pain (Acute) Neurogenic claudication due to lumbar spinal stenosis Feeling of incomplete bladder emptying Anemia (Acute) Stage 3 chronic kidney disease (Acute) Anxiety and depression CAD (coronary artery disease) non-obstructive Hypertension (Acute) Medical History Skin tear of elbow without complication Nose septum perforation Chronic low back pain Sacroiliitis IBS (irritable bowel syndrome) Borderline diabetes mellitus A-fib "i think i have a-fib." -- on eliquis -- follows with Dr. Torres History of TIA (transient ischemic attack) 2016 Cardiac murmur History of skin cancer History of COVID-19 02/2020; generalized weakness, diarrhea, sob, fever, body aches; hospitalized x 1 week; c/o ongoing brain fog since having covid Verbalizes suicidal thoughts COVID-19 Nocturia Acute urinary retention Back pain Renal failure Morbid obesity BMI 50.5 Carotid artery stenosis "mild" Aortic stenosis Mild (per cardiology review) aortic stenosis with possible bicuspid aortic valve (MG 19mmhg, NIKKIE 3.0) per 05/2018 ECHO Anemia Osteoporosis GERD (gastroesophageal reflux disease) controlled Chronic back pain High cholesterol Hx of falling last fall 09/2018- per patient, related to LBP/balance issues- ? r/t ambulatory dysfunction- improved with cane/walker use Surgical History History of right cataract extraction S/P epidural steroid injection History of appendectomy History of cardiac cath 2017= NO STENTS History of right knee joint replacement History of back surgery Hx of laparoscopy History of kyphoplasty Family History Father Stroke Slow to wake up after anesthesia Myocardial infarction, Onset Age: 40 Mother Stroke Myocardial infarction, Onset Age: 60 Sister Myocardial infarction, Onset Age: 60 Social History Smoking Status: Former smoker Tobacco Type: Declines Cigarettes Per Day: quit 40 yrs ago; Second Hand Exposure: Yes; Hx Alcohol Use: No Hx Substance Use: No Preferred Language: Mauritanian Communication Ability: Effective Visual Impairment: No Limitations Hearing Ability: Normal Cylinder Batcher Required: No Beliefs That Will Affect Care: None marital status: Single Current Living Situation: Family Current Living Situation Comment: lives w/ sister Colleen current occupational status: unemployed and disabled Feels Safe at Home: Yes Diet: regular caffeine: Yes Assistive Devices: Glasses and Walker Allergies Allergies Allergy/AdvReac Type Severity Reaction Status Date / Time egg AdvReac Intermediate GI upset Verified 08/15/24 13:31 ibuprofen AdvReac Intermediate stomach Verified 08/15/24 13:31 irritation morphine AdvReac Intermediate LEGS SWELL Verified 08/15/24 13:31 Home Meds Home Medications Medication Instructions Recorded Confirmed aspirin 81 mg tablet,delayed 81 mg PO QAM 07/28/23 08/15/24 release dupilumab 300 mg/2 mL subcutaneous 300 mg subcut Q14D 09/14/23 08/15/24 pen injector (DupixBioScrip) lisinopril 10 mg tablet 10 mg PO QAM 09/14/23 08/15/24 Previous Rx's Medication Instructions Recorded ascorbic acid (vitamin C) 250 mg 250 mg PO QAM #30 tabs 11/03/23 tablet atorvastatin 80 mg tablet 80 mg PO QPM #30 tabs 11/03/23 betamethasone dipropionate 0.05 % 1 applic topical BID PRN RASH 11/03/23 topical ointment FACE/TRUNK/ARMS #15 grams calcipotriene 0.005 % topical cream 1 applic topical DAILY PRN flare 11/03/23 up #60 grams cholecalciferol (vitamin D3) 25 1,000 unit PO QAM #30 tabs 11/03/23 mcg (1,000 unit) tablet (Vitamin D3) clotrimazole 1 % topical cream 1 applic topical BID PRN Itching 11/03/23 #45 grams cyanocobalamin (vitamin B-12) 1,000 mcg PO QAM #30 tabs 11/03/23 1,000 mcg tablet (Vitamin B-12) docusate sodium 100 mg capsule 100 mg PO BID #60 caps 11/03/23 (Colace) doxepin 25 mg capsule 25 mg PO HS #30 caps 11/03/23 duloxetine 60 mg capsule,delayed 120 mg (2 x 60 mg) PO QAM #60 caps 11/03/23 release (Cymbalta) fish, borage, flaxseed oils-omega 1 cap PO QAM #30 caps 11/03/23 3,6,9 comb no.1 1,200 mg capsule ([place] 3-6-9) folic acid 800 mcg tablet 0.8 mg PO QAM #30 tabs 11/03/23 memantine 10 mg tablet 10 mg PO BID #60 tabs 11/03/23 metoprolol succinate 25 mg 12.5 mg (1/2 x 25 mg) PO BID #30 11/03/23 tablet,extended release 24 hr tabs miconazole nitrate 2 % topical 1 applic topical BID #85 grams 11/03/23 powder (Desenex) oxybutynin chloride 5 mg 5 mg PO QPM #30 tabs 11/03/23 tablet,extended release 24 hr sodium chloride 0.65 % nasal spray 2 spray NA Q6H #44 mL 11/03/23 aerosol (Saline Mist) sumatriptan succinate 25 mg tablet 25 mg PO DIRECTED PRN Migraine 11/03/23 Headache #30 tabs tacrolimus 0.1 % topical ointment 1 applic topical BID PRN itching 11/03/23 #30 grams tamsulosin 0.4 mg capsule 0.4 mg PO QAM #30 caps 11/03/23 furosemide 20 mg tablet (Lasix) 20 mg PO DAILY #3 tabs 02/20/24 pantoprazole 40 mg tablet,delayed 40 mg PO QAM #30 tabs 06/21/24 release oxycodone 5 mg tablet 5 mg PO Q6H PRN pain level 6-10 on 08/15/24 a 1-10 scale #10 tabs Results & Data (ED) Vital Signs Vital Signs - 24 hr 08/12/24 12:12 Temperature 36.9 C Temperature Source Temporal Artery Scan Pulse Rate 88 Respiratory Rate 18 Respiratory Effort / Characteristics Non-Labored Spontaneous Respiratory Depth Normal Respiratory Pattern Regular Blood Pressure 145/73 H Blood Pressure Mean 97 Pulse Oximetry 97 Oxygen Delivery Method Room Air Sepsis Recent Fever Within 48 Hours No Sepsis New/Unexplained Change in Mental Status N/A Sepsis Action Taken by Nursing No Action Required Home Medications Current Medication List: was personally reviewed by me Laboratory Data Attestation: I reviewed the patient's lab results. 08/12/24 12:27 08/12/24 12:27 Lab Results 08/12/24 08/12/24 Range/Units 12:27 14:43 WBC 4.73 L (4.8-10.8) K/ul RBC 3.75 L (4.20-5.40) M/uL Hgb 9.4 L (12.0-16.0) g/dl Hct 32.5 L (37.0-47.0) % MCV 86.7 (80.0-100.0) fL MCH 25.1 (25.0-34.0) pg MCHC 28.9 L (32.0-36.0) g/dL RDW Std Deviation 53.9 H (36.4-46.3) fL RDW Coeff of Brandy 17.0 H (11.5-14.5) % Plt Count 128 L (130-400) K/uL MPV 11.3 (9.4-12.4) fL Immature Gran % (Auto) 0.2 % Neut % (Auto) 45.5 % Lymph % (Auto) 36.8 % [facility] % (Auto) 13.3 % Eos % (Auto) 3.6 % Baso % (Auto) 0.6 % Neut # (Auto) 2.15 (1.40-6.50) K/uL Lymph # (Auto) 1.74 (1.20-3.40) K/uL [facility] # (Auto) 0.63 H (0.11-0.59) K/uL Eos # (Auto) 0.17 (0.00-0.50) K/uL Baso # (Auto) 0.03 (0.00-0.20) K/uL Immature Gran # (Auto) 0.01 (0.01-0.20) K/uL PT 10.9 (9.0-12.0) Seconds INR 1.0 (0.9-1.1) APTT 27 (21-31) Seconds PTT Ratio 1.0 Sodium 139 (136-145) mmol/L Potassium 4.4 (3.5-5.1) mmol/L Chloride 108 H (98-107) mmol/L Carbon Dioxide 25 (21-32) mmol/L Anion Gap 6 (3-11) BUN 33 H (6-23) mg/dl Creatinine 1.39 H (0.6-1.2) mg/dl Est Cr Clr Drug Dosing 55.7 ml/min eGFR 41.59 BUN/Creatinine Ratio 23.7 H (10-20) Glucose 102 H (70-99(Fasting)) mg/dl Calcium 9.4 (8.6-10.3) mg/dl Total Bilirubin 0.4 (0.2-1.0) mg/dl AST 16 (13-39) U/L ALT 8 (7-52) U/L Alkaline Phosphatase 89 (34-104) U/L Troponin I High Sens 22.3 H 23.1 H (0-14) pg/ml Total Protein 6.8 (6.0-8.3) gm/dl Albumin 3.7 (3.4-5.0) gm/dl Globulin 3.1 (2.5-4.0) gm/dl Albumin/Globulin Ratio 1.2 (0.9-2) Administered Medications Discontinued Medications Aspirin (Aspirin Chew 324 Mg) 324 mg PO NOW STA Stop: 08/12/24 13:42 Last Admin: 08/12/24 13:45 Dose: 324 mg Documented By: ERIC Atorvastatin Calcium (Atorvastatin 40 Mg Tab) 80 mg PO QPM PEGGY Stop: 09/11/24 20:59 Last Admin: 08/12/24 21:19 Dose: 80 mg Documented By: DACIA Buspirone HCl (Buspirone 5 Mg Tab) 10 mg PO BID [facility] Stop: 09/11/24 20:59 Last Admin: 08/12/24 21:20 Dose: 10 mg Documented By: DACIA Diclofenac Sodium (Diclofenac Sod 1% Gel 100 Gm Tube) 2 gm EXT QID [facility]; Protocol Stop: 09/11/24 17:24 Last Admin: 08/12/24 21:22 Dose: Not Given Documented By: Admin: 08/12/24 21:15 Dose: 2 gm Documented By: DACIA Docusate Sodium (Docusate Sodium 100 Mg Cap) 100 mg PO BID [facility] Stop: 09/11/24 20:59 Last Admin: 08/12/24 21:17 Dose: 100 mg Documented By: DACIA Doxepin HCl (Doxepin Hcl 25 Mg Capsule) 25 mg PO HS [facility] Stop: 09/11/24 20:59 Last Admin: 08/12/24 21:17 Dose: 25 mg Documented By: DACIA Enoxaparin Sodium (Enoxaparin Inj 40 Mg/0.4 Ml Syr) 40 mg SQ Q24H PEGGY Stop: 09/11/24 17:59 Last Admin: 08/12/24 18:19 Dose: 40 mg Documented By: SIMEON Melatonin (Melatonin 3 Mg Tab) 3 mg PO HS PRN PRN Reason: Sleep Stop: 09/11/24 17:24 Last Admin: 08/12/24 21:17 Dose: 3 mg Documented By: DACIA Memantine (Memantine Hcl 10 Mg Tab) 10 mg PO BID PEGGY Stop: 09/11/24 20:59 Last Admin: 08/12/24 21:19 Dose: 10 mg Documented By: DACIA Metoprolol Succinate (Metoprolol Succ 25mg Ext Rel Tab) 12.5 mg PO BID PEGGY Stop: 09/11/24 20:59 Last Admin: 08/12/24 21:20 Dose: 12.5 mg Documented By: DACIA Miconazole Nitrate (Miconazole Nitrate Powder 85 Gm) 1 appln TOP BID PEGGY Stop: 09/11/24 20:59 Last Admin: 08/12/24 21:17 Dose: 1 appln Documented By: DACIA Miscellaneous (Calcipotriene 0.005 % Cream - Order Awaiting Action) 1 each N/A QS [facility] Stop: 09/12/24 00:00 Last Admin: 08/12/24 23:51 Dose: Not Given Documented By: DACIA Miscellaneous ([Dupixent Pen] 300 Mg/2 Ml Pen - Order Awaiting Action) 1 each N/A QS [facility] Stop: 09/12/24 00:00 Last Admin: 08/12/24 23:51 Dose: Not Given Documented By: DACIA uNñezcellaneous (Tacrolimus Ointment 0.1% - Order Awaiting Action) 1 each N/A QS [facility] Stop: 09/12/24 00:00 Last Admin: 08/12/24 23:51 Dose: Not Given Documented By: DACIA Oxybutynin Chloride (Oxybutynin Chloride Xl 5 Mg Tabcr) 5 mg PO QPM PEGGY Stop: 09/11/24 20:59 Last Admin: 08/12/24 21:19 Dose: 5 mg Documented By: DACIA Oxycodone HCl (Oxycodone Hcl Ir 5 Mg Tab (Immediate Release)) 5 mg PO Q6H PRN PRN Reason: pain level 6-10 on a 1-10 scale Stop: 08/26/24 17:24 Last Admin: 08/12/24 23:51 Dose: 5 mg Documented By: DACIA Sodium Chloride (Sodium Chloride 0.65% Na Soln 45 Ml ([place])) 2 sprays NA Q6HWA [facility] Stop: 09/11/24 17:59 Last Admin: 08/13/24 06:03 Dose: 2 sprays Documented By: Admin: 08/12/24 23:52 Dose: 2 sprays Documented By: Admin: 08/12/24 18:19 Dose: 2 sprays Documented By: SIMEON Imaging Data Radiologist's Impression: Chest X-Ray 08/12/24 12:16 XR chest 1V not portable CLINICAL HISTORY: Chest pain, nonspecific COMPARISON STUDY: 06/19/2024 FINDINGS: There is stable cardiomegaly with pulmonary vascular congestion. No consolidation or pleural effusion. No pneumothorax. IMPRESSION: CHF. ACT 112: Negative or not required by law. Electronically signed by: Trip Le M.D. 08/12/2024 1:[address] 08/12/24 13:40 CT head/brain wo con CLINICAL HISTORY: 69 years-old Female with concern for LLE weakness. Acute strokelike symptoms TECHNIQUE: Multiple axial CT images of the head were obtained without contrast. A dose lowering technique was utilized adhering to the principles of ALARA. CT DOSE: 625.8 mGy.cm COMPARISON: Head CT 06/20/2024 FINDINGS: No acute intracranial hemorrhage, midline shift, intracranial mass, hydrocephalus, territorial ischemia or abnormal extra-axial collection. Involutional changes with suggestion of mild chronic microvascular ischemic disease. The calvarium is intact. Prior bilateral lens repair. The paranasal sinuses, mastoid air cells, and middle ear cavities are clear. IMPRESSION: No acute intracranial abnormality. ACT 112: Negative or not required by law. The above report was generated using voice recognition software. It may contain grammatical, syntax or spelling errors. Electronically signed by: Juan J Abad M.D. 08/12/2024 2:28 PM Discharge Plan Visit Data Chief Complaint: Referred by Doctor Stated Complaint: ?BLOODCLOT IN CHEST ED Provider: Stoney Mccartney Discharge Problem: Chest pain, Left leg weakness, Elevated troponin Patient Disposition: Admitted As Inpatient Condition: Good Discharge Instructions Interventions: ED Discharge Assessment Last Done: 08/12/24 18:44 Discharge Problem: Chest pain Qualifiers: Chest pain type: unspecified Qualified Code(s): R07.9 - Chest pain, unspecified
[2024-08-12 13:23] LABS: Troponin I High Sensitivity 22.3 pg/ml (0-14)
[2024-08-12 13:42] LABS: Partial Thromboplastin Time 27 Seconds (21-31); Prothrombin Time 10.9 Seconds (9.0-12.0)
[2024-08-12] MEDS: ASPIRIN CHEW 324 MG PO STA (13:45)
--- NOTE | 2024-08-12 13:58 | XRay Report ---
XR chest 1V not portable CLINICAL HISTORY: Chest pain, nonspecific COMPARISON STUDY: 06/19/2024 FINDINGS: There is stable cardiomegaly with pulmonary vascular congestion. No consolidation or pleura l effusion. No pneumothorax. IMPRESSION: CHF. ACT 112: Negative or not required by law. Electronically signed by: Trip Le M.D. 08/12/2024 1:56 PM
--- NOTE | 2024-08-12 14:30 | CT Scan Report ---
CT head/brain wo con CLINICAL HISTORY: 69 years-old Female with concern for LLE weakness. Acute strokelike symptoms TECHNIQUE: Multiple axial CT images of the head were obtained without contrast. A dose lowering tech nique was utilized adhering to the principles of ALARA. CT DOSE: 625.8 mGy.cm COMPARISON: Head CT 06/20/2024 FINDINGS: No acute intracranial hemorrhage, midline shift, intracranial mass, hydrocephalus, territorial ischem ia or abnormal extra-axial collection. Involutional changes with suggestion of mild chronic microvasc ular ischemic disease. The calvarium is intact. Prior bilateral lens repair. The paranasal sinuses, mastoid air cells, and m iddle ear cavities are clear. IMPRESSION: No acute intracranial abnormality. ACT 112: Negative or not required by law. The above report was generated using voice recognition software. It may contain grammatical, syntax o r spelling errors. Electronically signed by: Juan J Abad M.D. 08/12/2024 2:28 PM
--- NOTE | 2024-08-12 15:47 | History & Physical Report ---
Date of Service August 12, 2024 Assessment & Plan (1) Dyspnea on exertion: (2) CAD (coronary artery disease): (3) Stage 3 chronic kidney disease: (4) Morbid obesity: (5) Chronic venous insufficiency: Plan #Chest pressure and dyspnea on exertionconcerning for coronary disease versus aortic stenosis mediated. She is a little bit of a difficult historian, but it sounds like her outpatient cardiology team was moving towards a heart cath anyway, will consult cardiology for further management. Her troponins are reassuringly only minimally elevated and her EKG is nonacute, symptoms are only with exertion #lower extremity painon exam it really seems like she just has chronic venous stasis changes and her leg in question surprisingly examines better than her leg it is not bothering her. Will check venous Dopplers to ensure there is no DVT, but otherwise therapy, conservative management, time. I do wonder given that her left leg seems to be bothering her off and on on chart review over time if she has worsening of lumbar radicular disease. Outpatient follow-up and m anagement for this. #Sharp sternal painwith no tachycardia and no hypoxia, and with how reproducible the pain is, combined with the fact that she does note she gets sternal pain from time to timethis seems to be very biomechanical. Obviously she has venous Doppler findings consistent with a DVT we will be anticoagulating anyway, but I fairly low suspicion for PE, and given her mild degree of CKD, I doubt that the benefits of a CT angio would outweigh the risks. To be clearseems to be musculoskeletal, would suspect more likely PE only if she has a DVT. #CKD stage IIIseems to be pretty stable in her baseline range. Follow-up #leukopenia and thrombocytopeniaunclear etiology. No signs or symptoms of tick disease otherwise. Follow-up CBC in the morning, follow with serial exam s/symptoms. #DVT prophylaxisLovenox. Obviously escalate to full anticoagulation if she has a DVT, but low suspicion for this clinically. History of Present Illness Chief Complaint: chest pressure, MONTEZ Primary Care Provider: Nikunj Plascencia MD 2 different chief complaintsmost concerning is that of chest pressure and dyspnea on exertion. She notes over the last couple of days an abrupt worsening of chest pressure substernal and dyspnea on exertionshe notes that it happens especially when if she is walking her dog. It comes on with exertion and gets better with rest. It does not seem to have been spontaneous in onset. She is a little bit difficult to get a longitudinal history from, but it sounds like this has been just in the last few days that this symptom has started, and yet she also notes that her cardiology team as an outpatient was talking to her about potentially needing a heart cath but also having to manage a bad valve as well. Separate chief complaint is left leg painshe notes that she had a venous procedure with Dr. Santacruz a few weeks ago and since then she has had left leg pain and swelling. It hurts more when she walks. Lastly she complains of a sharp sternal pain that seems to be totally differen t from her chest pressure and shortness of breath. This 1 just started this morning it is sharp and stabbing and is worse with a deep breath, she does not seem to associate shortness of breath with this. It is reproducible, and she does note that she frequently will get sternal pain. HPI is a little bit limited due to a fairly difficult time being able to get a history from her. Allergies Allergy/AdvReac Type Severity Reaction Status Date / Time egg AdvReac Intermediate GI upset Verified 07/31/24 13:19 ibuprofen AdvReac Intermediate stomach Verified 07/31/24 13:19 irritation morphine AdvReac Intermediate LEGS SWELL Verified 07/31/24 13:19 Home Medications Medication Instructions Recorded Confirmed Type aspirin 81 mg tablet,delayed 81 mg PO QAM 07/28/23 08/12/24 History release dupilumab 300 mg/2 mL subcutaneous 300 mg subcut Q14D 09/14/23 08/12/24 History pen injector (Dupixent) lisinopril 10 mg tablet 10 mg PO QAM 09/14/23 08/12/24 History ascorbic acid (vitamin C) 250 mg 250 mg PO QAM #30 tabs 11/03/23 08/12/24 Rx tablet atorvastatin 80 mg tablet 80 mg PO QPM #30 tabs 11/03/23 08/12/24 Rx betamethasone dipropionate 0.05 % 1 applic topical BID PRN RASH 11/03/23 08/12/24 Rx topical ointment FACE/TRUNK/ARMS #15 grams buspirone 10 mg tablet 10 mg PO BID #60 tabs 11/03/23 08/12/24 Rx calcipotriene 0.005 % topical cream 1 applic topical DAILY PRN flare 11/03/23 08/12/24 Rx up #60 grams cholecalciferol (vitamin D3) 25 1,000 unit PO QAM #30 tabs 11/03/23 08/12/24 Rx mcg (1,000 unit) tablet (Vitamin D3) clotrimazole 1 % topical cream 1 applic topical BID PRN Itching 11/03/2308/12 Rx #45 grams cyanocobalamin (vitamin B-12) 1,000 mcg PO QAM #30 tabs 11/03/23 08/12/24 Rx 1,000 mcg tablet (Vitamin B-12) docusate sodium 100 mg capsule 100 mg PO BID #60 caps 11/03/23 08/12/24 Rx (Colace) doxepin 25 mg capsule 25 mg PO HS #30 caps 11/03/23 08/12/24 Rx duloxetine 60 mg capsule,delayed 120 mg (2 x 60 mg) PO QAM #60 caps 11/03/23 08/12/24 Rx release (Cymbalta) fish, borage, flaxseed oils-omega 1 cap PO QAM #30 caps 11/03/23 08/12/24 Rx 3,6,9 comb no.1 1,200 mg capsule ([place] 3-6-9) folic acid 800 mcg tablet 0.8 mg PO QAM #30 tabs 11/03/23 08/12/24 Rx memantine 10 mg tablet 10 mg PO BID #60 tabs 11/03/23 08/12/24 Rx metoprolol succinate 25 mg 12.5 mg (1/2 x 25 mg) PO BID #30 11/03/23 08/12/24 Rx tablet,extended release 24 hr tabs miconazole nitrate 2 % topical 1 applic topical BID #85 grams 11/03/23 08/12/24 Rx powder (Desenex) oxybutynin chloride 5 mg 5 mg PO QPM #30 tabs 11/03/23 08/12/24 Rx tablet,extended release 24 hr oxycodone 5 mg tablet 5 mg PO Q6H PRN pain level 6-10 on 11/03/23 08/12/24 Rx a 1-10 scale #5 tabs polyethylene glycol 3350 17 gram 17 g PO DAILY PRN constipation #30 11/03/23 08/12/24 Rx oral powder packet (Miralax) ea sodium chloride 0.65 % nasal spray 2 spray NA Q6H #44 mL 11/03/23 08/12/24 Rx aerosol (Saline Mist) sumatriptan succinate 25 mg tablet 25 mg PO DIRECTED PRN Migraine 11/03/23 08/12/24 Rx Headache #30 tabs tacrolimus 0.1 % topical ointment 1 applic topical BID PRN itching 11/03/23 08/12/24 Rx #30 grams tamsulosin 0.4 mg capsule 0.4 mg PO QAM #30 caps 11/03/23 08/12/24 Rx furosemide 20 mg tablet (Lasix) 20 mg PO DAILY #3 tabs 02/20/24 08/12/24 Rx pantoprazole 40 mg tablet,delayed 40 mg PO QAM #30 tabs 06/21/24 08/12/24 Rx release Past Med/Surg History Problem List (Updated 08/12/24 @ 16:01 by Yannick Mack DO) Dyspnea on exertion Hypertension (Acute) Chronic back pain (Acute) Thrombolytic medication administered within last 5 days (Acute) Stroke-like symptoms (Acute) Left leg weakness (Acute) Skin tear of left upper extremity (Acute) Chronic venous insufficiency (Chronic) Edema of left lower extremity Traumatic open wound of left lower leg with delayed healing (Acute) Leg wound, left (Acute) Obtunded (Acute) Acute confusion (Acute) Deep laceration of knee (Acute) Fracture, patella (Acute) Encephalopathy Leg laceration Left knee injury Acute kidney injury superimposed on CKD (Acute) Back pain (Acute) Fall (Acute) Right hip pain Hyperkalemia Orthostatic hypotension Hypotension Ambulatory dysfunction (Acute) Metatarsal bone fracture (Acute) Closed fibular fracture (Acute) Fall Presence of Watchman left atrial appendage closure device Paroxysmal atrial fibrillation Bullous pemphigoid Chronic anemia Severe aortic stenosis Closed fracture of proximal end of right fibula Paroxysmal atrial fibrillation Moderate aortic stenosis Atypical chest pain Chest pain (Acute) Acute anterior epistaxis (Acute) Hiatal hernia Uncontrolled hypertension Obesity (Acute) Atrial flutter, paroxysmal Aortic stenosis Bicuspid aortic valve Chronic low back pain GERD (gastroesophageal reflux disease) Dyslipidemia Atrial flutter, paroxysmal Candidal intertrigo DVT prophylaxis Chest pain (Acute) Neurogenic claudication due to lumbar spinal stenosis Feeling of incomplete bladder emptying Anemia (Acute) Stage 3 chronic kidney disease (Acute) Anxiety and depression CAD (coronary artery disease) non-obstructive Hypertension (Acute) Medical History Skin tear of elbow without complication Nose septum perforation Chronic low back pain Sacroiliitis IBS (irritable bowel syndrome) Borderline diabetes mellitus A-fib "i think i have a-fib." -- on eliquis -- follows with Dr. Torres History of TIA (transient ischemic attack) 2016 Cardiac murmur History of skin cancer History of COVID-19 02/2020; generalized weakness, diarrhea, sob, fever, body aches; hospitalized x 1 week; c/o ongoing brain fog since having covid Verbalizes suicidal thoughts COVID-19 Nocturia Acute urinary retention Back pain Renal failure Morbid obesity BMI 50.5 Carotid artery stenosis "mild" Aortic stenosis Mild (per cardiology review) aortic stenosis with possible bicuspid aortic valve (MG 19mmhg, NIKKIE 3.0) per 05/2018 ECHO Anemia Osteoporosis GERD (gastroesophageal reflux disease) controlled Chronic back pain High cholesterol Hx of falling last fall 09/2018- per patient, related to LBP/balance issues- ? r/t ambulatory dysfunction- improved with cane/walker use Surgical History History of right cataract extraction S/P epidural steroid injection History of appendectomy History of cardiac cath 2017= NO STENTS History of right knee joint replacement History of back surgery Hx of laparoscopy History of kyphoplasty Family History Father Stroke Slow to wake up after anesthesia Myocardial infarction, Onset Age: 40 Mother Stroke Myocardial infarction, Onset Age: 60 Sister Myocardial infarction, Onset Age: 60 Social History Smoking Status: Former smoker Tobacco Type: Cigarettes Cigarettes Per Day: quit 40 yrs ago; Second Hand Exposure: Yes; Hx Alcohol Use: No Hx Substance Use: No Preferred Language: French Communication Ability: Effective Visual Impairment: No Limitations Hearing Ability: Normal 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 HEENT normocephalic atraumatic mucous membranes moist. Cardio is regular she has a notable loud systolic murmur. No notable rubs or gallops. Lungs are clear to auscultation bilaterally no rales rhonchi wheezes good effort. No accessory muscle use no conversational dyspnea. Extremities show no cyanosis or clubbing, she has chronic venous stasis edema, her left lower extremity is actually mildly less sw ollen than the right. Does have a lot of skin changes anteriorly although she notes that it is from a fall and prior trauma about a year ago. She has no calf tenderness no palpable cords, and her right leg is maybe 1+ edema left somewhere between trace and 1+. Musculoskeletal shows markedly reproducible sternal pain to palpation. Neuro shows cranial nerves II through XII are grossly intact yohannes ss motor and sensory intact. Results & Data Results & Data Vital Signs (Past 12 Hours) Vital Signs Temp Pulse Pulse Resp BP BP Pulse Ox 08/12/24 15:00 77 17 167/71 H 97 08/12/24 13:41 73 16 08/12/24 13:41 100 08/12/24 13:41 73 16 128/82 100 08/12/24 12:12 98.4 F 88 18 145/73 H 97 O2 Del Method 08/12/24 15:00 Room Air 08/12/24 13:41 08/12/24 13:41 Room Air 08/12/24 13:41 Room Air 08/12/24 12:12 Room Air Code Status & VTE Plan VTE Prophylaxis Plan VTE Prophylaxis will be ordered: Yes PG Care Time/CCT Total # of Minutes Spent Total Time Spent with Patient: Total time spent is greater than 50% in coordination of care (as documented) at patient's floor/unit and/or counseling patient: Coding Level of Care Code 01460 INT INP/OBS CARE 3/75MIN Diagnoses Dyspnea on exertion R06.09 Coronary artery disease involving [place] coronary artery of [place] heart without angina pectoris I25.10 Coronary Disease-Associated Artery/Lesion type: [place] artery [place] vs. transplanted heart: [place] heart Associated angina: without angina Stage 3 chronic kidney disease N18.30 Chronic kidney disease stage 3 subtype: unspecified whether 3a or 3b Morbid obesity E66.01 Chronic venous insufficiency I87.2 (2) CAD (coronary artery disease) Coronary Disease-Associated Artery/Lesion type: [place] artery [place] vs. transplanted heart: [place] heart Associated angina: without angina Qualified Code(s): I25.10 - Atherosclerotic heart disease of [place] coronary artery without angina pectoris (3) Stage 3 chronic kidney disease Chronic kidney disease stage 3 subtype: unspecified whether 3a or 3b Qualified Code(s): N18.30 - Chronic kidney disease, stage 3 unspecified
[2024-08-12] MEDS ORDERED: SUMAtriptan succinate 25 MG TAB PO PRN (17:25)
[2024-08-12] MEDS ORDERED: ACETAMINOPHEN 325 MG TAB PO PRN (17:25)
[2024-08-12] MEDS ORDERED: ONDANSETRON INJ 2 MG/ML 2 ML VIAL IV PRN (17:25)
[2024-08-12] MEDS ORDERED: ALUMINUM/MAGNESIUM SUSP 30 ML UDC PO PRN (17:25)
[2024-08-12] MEDS ORDERED: MAGNESIUM HYDROXIDE SUSP 30 ML UDC PO PRN (17:25)
[2024-08-12] MEDS ORDERED: POLYETHYLENE (MIRALAX) 17 GM PACK PO PRN (17:25)
[2024-08-12] MEDS ORDERED: CLOTRIMAZOLE 1% CR 15 GM TUBE TOP PRN (17:25)
[2024-08-12] MEDS ORDERED: BETAMETHASONE DIP AUG (DIPROLENE) 0.05% CR 50 GM TUBE EXT PRN (17:46)
[2024-08-12] MEDS: ENOXAPARIN INJ 40 MG/0.4 ML SYR SQ SCH (18:19)
[2024-08-12] MEDS: SODIUM CHLORIDE 0.65% NA SOLN 45 ML (OCEAN) SCH (18:19)
[2024-08-12 19:36] VITALS: RESP 16
[2024-08-12] MEDS: DICLOFENAC SOD 1% GEL 100 GM TUBE EXT SCH (21:15)
[2024-08-12] MEDS: MELATONIN 3 MG TAB PO PRN (21:17)
[2024-08-12] MEDS: DOCUSATE SODIUM 100 MG CAP PO SCH (21:17)
[2024-08-12] MEDS: DOXEPIN HCL 25 MG CAPSULE PO SCH (21:17)
[2024-08-12] MEDS: MICONAZOLE NITRATE POWDER 85 GM TOP SCH (21:17)
[2024-08-12] MEDS: MEMANTINE HCL 10 MG TAB PO SCH (21:19)
[2024-08-12] MEDS: OXYBUTYNIN CHLORIDE XL 5 MG TABCR PO SCH (21:19)
[2024-08-12] MEDS: ATORVASTATIN 40 MG TAB PO SCH (21:19)
[2024-08-12] MEDS: busPIRone 5 MG TAB PO SCH (21:20)
[2024-08-12] MEDS: METOPROLOL SUCC 25MG EXT REL TAB PO SCH (21:20)
--- NOTE | 2024-08-12 23:11 | Ultrasound Report ---
Exam(s): US VENOUS BILATERAL LOWER EXTREMITIES EXAM: US Duplex Bilateral Lower Extremities Veins CLINICAL HISTORY: Reason for exam: LE pain, swelling. TECHNIQUE: Real-time duplex ultrasound scan of the bilateral lower extremity veins integrating B-mode two-dimensional vascular structure, Doppler spectral analysis, color flow Doppler imaging and compression. COMPARISON: None. FINDINGS: Right deep veins: Unremarkable. No DVT in the right common femoral, femoral, proximal deep femoral or popliteal veins. The veins demonstrate normal color flow, are normally compressible, with normal phasic flow and/or augmentation response. Left deep veins: Unremarkable. No DVT in the left common femoral, femoral, proximal deep femoral or popliteal veins. The veins demonstrate normal color flow, are normally compressible, with normal phasic flow and/or augmentation response. Soft tissues: No acute findings. No popliteal cyst. IMPRESSION: Negative for DVT in the right/left lower extremity. . Electronically signed by: Tara Herrera MD, [facility] 08/12/24 23:10 PM
[2024-08-12] MEDS: oxyCODONE HCL IR 5 MG TAB (IMMEDIATE RELEASE) PO PRN (23:51)
[2024-08-13 02:23] VITALS: BP 123/58; TEMP 97.9; O2SAT 97
[2024-08-13 04:36] VITALS: PULSE 88
[2024-08-13] MEDS ORDERED: lisinopril 10 MG TAB PO SCH (09:00)
[2024-08-13] MEDS ORDERED: CHOLECALCIFEROL 25 MCG (1000 UNITS) TAB PO SCH (09:00)
[2024-08-13] MEDS ORDERED: FOLIC ACID 400 MCG TAB PO SCH (09:00)
[2024-08-13] MEDS ORDERED: TAMSULOSIN HCL 0.4 MG CAP PO SCH (09:00)
[2024-08-13] MEDS ORDERED: FUROSEMIDE 20 MG TAB PO SCH (09:00)
[2024-08-13] MEDS ORDERED: NON-FORMULARY MEDICATION (Fish,Bora,Flax Oils-Om3,6,9no1 [Omega 3-6-9] 1,200 mg Capsule) PO SCH (09:00)
[2024-08-13] MEDS ORDERED: PANTOprazole 40 MG TAB PO SCH (09:00)
[2024-08-13] MEDS ORDERED: DULoxetine HCL 60 MG CAP PO SCH (09:00)
[2024-08-13] MEDS ORDERED: ASCORBIC ACID 500 MG TAB PO SCH (09:00)
[2024-08-13] MEDS ORDERED: CYANOCOBALAMIN (B-12) 500 MCG TABLET PO SCH (09:00)
[2024-08-13] MEDS ORDERED: ASPIRIN 81 MG ECTAB PO SCH (09:00)
--- NOTE | 2024-08-14 15:26 | Electrocardiogram Report ---
Test Reason : Blood Pressure : */* mmHG Vent. Rate : 82 BPM Atrial Rate : 82 BPM P-R Int : 138 ms QRS Dur : 76 ms QT Int : 356 ms P-R-T Axes : 57 -8 15 degrees QTcB Int : 415 ms Normal sinus rhythm Normal ECG When compared with ECG of 20-Jun-2024 07:59, No significant change was found Confirmed by Kanu Whitman ([id number]) on 08/14/2024 3:25:49 PM Referred By: Confirmed By: Kanu Whitman
--- NOTE | 2024-08-14 15:27 | Electrocardiogram Report ---
Test Reason : Blood Pressure : */* mmHG Vent. Rate : 73 BPM Atrial Rate : 73 BPM P-R Int : 148 ms QRS Dur : 78 ms QT Int : 372 ms P-R-T Axes : 2 -8 17 degrees QTcB Int : 409 ms Normal sinus rhythm Minimal voltage criteria for LVH, may be normal variant ( R in aVL ) Borderline ECG When compared with ECG of 12-Aug-2024 12:23, (unconfirmed) No significant change was found Confirmed by Kanu Whitman ([id number]) on 08/14/2024 3:27:31 PM Referred By: Nikunj Plascencia Confirmed By: Kanu Whitman
== END 2024-08-13 06:50 | disposition left against medical advice (07) ==
LOC: ED 11:59 → SUATTDRO 15:45 → INTOOBSV 15:45 → 2N 15:45

== ENCOUNTER 2024-09-19 13:08 | Inpatient (IN) ==
--- NOTE | 2024-09-19 14:26 | Ultrasound Report ---
ULTRASOUND BILATERAL LOWER EXTREMITY VENOUS CLINICAL HISTORY: Lower extremity pain and swelling. COMPARISON STUDY: Bilateral lower extremity venous ultrasound 08/12/2024. TECHNIQUE: Real-time, grayscale, and color Doppler sonography of the deep veins of the right and left lower extremity was performed from the inguinal crease to the calf. Compression and augmentation wer e utilized. FINDINGS: There is no sonographic evidence of deep venous thrombosis identified in the right or left lower extremity. The common femoral, superficial femoral, and popliteal veins are patent and normally compressible bilaterally. The greater saphenous vein and the profunda femoris vein at the junction w ith the common femoral vein are clear in both legs. The visualized calf veins are patent bilaterally. IMPRESSION: There is no sonographic evidence of deep venous thrombosis identified in the right or lef t lower extremity. ACT 112: Negative or not required by law. Electronically signed by: Jonah Farris M.D. 09/19/2024 2:25 PM
--- NOTE | 2024-09-19 14:53 | Emergency Department Note ---
History of Present Illness General Chief complaint: Leg Injury/Pain Stated complaint: LEG NEEDS LOOKED AT BC OF POSSIBLE BLOOD CLOT Time Seen by Provider: 09/19/24 14:21 History of Present Illness This is a 69-year-old female who presents to the emergency department via private vehicle with complaints of " left leg pain". The patient notes that she was seen here yesterday for evaluation of left leg pain. Ultimately D-dimer was performed and the patient desired to go home. D-dimer returned elevated. She was notified of this and return today for further assessment. Patient notes ongoing left leg pain. She notes redness and swelling to the left leg. No fevers or chills. The patient also notes a cough over the past 2 weeks. Mild dyspnea. Home Medications Medication Instructions Recorded Confirmed Type dupilumab 300 mg/2 mL subcutaneous 300 mg subcut Q14D 09/14/23 09/19/24 History pen injector (Dupixent) ascorbic acid (vitamin C) 250 mg 250 mg PO QAM #30 tabs 11/03/23 09/19/24 Rx tablet betamethasone dipropionate 0.05 % 1 applic topical BID PRN RASH 11/03/23 09/19/24 Rx topical ointment FACE/TRUNK/ARMS #15 grams calcipotriene 0.005 % topical cream 1 applic topical DAILY PRN flare 11/03/23 09/19/24 Rx up #60 grams cholecalciferol (vitamin D3) 25 1,000 unit PO QAM #30 tabs 11/03/23 09/19/24 Rx mcg (1,000 unit) tablet (Vitamin D3) clotrimazole 1 % topical cream 1 applic topical BID PRN Itching 11/03/23 09/19/24 Rx #45 grams cyanocobalamin (vitamin B-12) 1,000 mcg PO QAM #30 tabs 11/03/23 09/19/24 Rx 1,000 mcg tablet (Vitamin B-12) docusate sodium 100 mg capsule 100 mg PO BID #60 caps 11/03/23 09/19/24 Rx (Colace) doxepin 25 mg capsule 25 mg PO HS #30 caps 11/03/23 09/19/24 Rx fish, borage, flaxseed oils-omega 1 cap PO QAM #30 caps 11/03/23 09/19/24 Rx 3,6,9 comb no.1 1,200 mg capsule (L[place]by 3-6-9) folic acid 800 mcg tablet 0.8 mg PO QAM #30 tabs 11/03/23 09/19/24 Rx memantine 10 mg tablet 10 mg PO BID #60 tabs 11/03/23 09/19/24 Rx metoprolol succinate 25 mg 12.5 mg (1/2 x 25 mg) PO BID #30 11/03/23 09/19/24 Rx tablet,extended release 24 hr tabs tacrolimus 0.1 % topical ointment 1 applic topical BID PRN itching 11/03/23 09/19/24 Rx #30 grams pantoprazole 40 mg tablet,delayed 40 mg PO QAM #30 tabs 06/21/24 09/19/24 Rx release oxycodone 5 mg tablet 5 mg PO Q6H PRN pain level 6-10 on 08/15/24 09/19/24 Rx a 1-10 scale #10 tabs clobetasol 0.05 % topical cream 1 applic topical BID bullous 09/11/24 09/19/24 Rx pemphigoid and psoriasis #60 grams triamcinolone acetonide 0.025 % 1 applic topical BID PRN psoriasis 09/11/24 09/19/24 Rx topical ointment #15 grams duloxetine 60 mg capsule,delayed 120 mg PO QAM 09/18/24 09/19/24 History release aspirin 81 mg chewable tablet 81 mg PO QAM 09/19/24 09/19/24 History (Aspirin Childrens) atorvastatin 80 mg tablet 80 mg PO QAM 09/19/24 09/19/24 History cephalexin 500 mg tablet 500 mg PO TID 7 days #21 tabs 09/19/24 09/19/24 Rx clopidogrel 75 mg tablet 75 mg PO QAM 09/19/24 09/19/24 History cyclosporine 0.05 % eye drops in a 1 drp OPB .EVERY 12 HOURS 09/19/24 09/19/24 History dropperette furosemide 20 mg tablet 20 mg PO 3XWK 09/19/24 09/19/24 History pregabalin 100 mg capsule 100 mg PO TID 09/19/24 09/19/24 History sodium chloride 0.65 % nasal spray 2 spray NA Q6H PRN NASAL DRYNESS 09/19/24 09/19/24 History aerosol (Saline Mist) sumatriptan succinate 25 mg tablet 525 mg PO DIRECTED PRN Migraine 09/19/24 09/19/24 History Headache Allergies Allergy/AdvReac Type Severity Reaction Status Date / Time egg AdvReac Intermediate GI upset Verified 09/18/24 23:29 ibuprofen AdvReac Intermediate stomach Verified 09/18/24 23:29 irritation morphine AdvReac Intermediate LEGS SWELL Verified 09/18/24 23:29 Past Med/Surg History Problem List (Updated 09/20/24 @ 00:53 by Kalpesh Blake PA-C) Cellulitis of lower leg (Acute) Urinary frequency (Acute) Cellulitis (Acute) Elevated troponin (Acute) Left leg weakness (Acute) CHF (congestive heart failure) Dyspnea on exertion Hypertension (Acute) Chronic back pain (Acute) Thrombolytic medication administered within last 5 days (Acute) Stroke-like symptoms (Acute) Left leg weakness (Acute) Skin tear of left upper extremity (Acute) Chronic venous insufficiency (Chronic) Edema of left lower extremity Traumatic open wound of left lower leg with delayed healing (Acute) Leg wound, left (Acute) Obtunded (Acute) Acute confusion (Acute) Deep laceration of knee (Acute) Fracture, patella (Acute) Encephalopathy Leg laceration Left knee injury Acute kidney injury superimposed on CKD (Acute) Back pain (Acute) Fall (Acute) Right hip pain Hyperkalemia Orthostatic hypotension Hypotension Ambulatory dysfunction (Acute) Metatarsal bone fracture (Acute) Closed fibular fracture (Acute) Fall Presence of Watchman left atrial appendage closure device Paroxysmal atrial fibrillation Bullous pemphigoid (Chronic) Chronic anemia Severe aortic stenosis Closed fracture of proximal end of right fibula Paroxysmal atrial fibrillation Moderate aortic stenosis Atypical chest pain Chest pain (Acute) Acute anterior epistaxis (Acute) Hiatal hernia Uncontrolled hypertension Obesity (Acute) Atrial flutter, paroxysmal Aortic stenosis Bicuspid aortic valve Chronic low back pain GERD (gastroesophageal reflux disease) Dyslipidemia Atrial flutter, paroxysmal Candidal intertrigo DVT prophylaxis Chest pain (Acute) Neurogenic claudication due to lumbar spinal stenosis Feeling of incomplete bladder emptying Anemia (Acute) Stage 3 chronic kidney disease (Acute) Anxiety and depression CAD (coronary artery disease) non-obstructive Hypertension (Acute) Medical History Skin tear of elbow without complication Nose septum perforation Chronic low back pain Sacroiliitis IBS (irritable bowel syndrome) Borderline diabetes mellitus A-fib "i think i have a-fib." -- on eliquis -- follows with Dr. Torres History of TIA (transient ischemic attack) 2016 Cardiac murmur History of skin cancer History of COVID-19 02/2020; generalized weakness, diarrhea, sob, fever, body aches; hospitalized x 1 week; c/o ongoing brain fog since having covid Verbalizes suicidal thoughts COVID-19 Nocturia Acute urinary retention Back pain Renal failure Morbid obesity BMI 50.5 Carotid artery stenosis "mild" Aortic stenosis Mild (per cardiology review) aortic stenosis with possible bicuspid aortic valve (MG 19mmhg, NIKKIE 3.0) per 05/2018 ECHO Anemia Osteoporosis GERD (gastroesophageal reflux disease) controlled Chronic back pain High cholesterol Hx of falling last fall 09/2018- per patient, related to LBP/balance issues- ? r/t ambulatory dysfunction- improved with cane/walker use Surgical History History of right cataract extraction S/P epidural steroid injection History of appendectomy History of cardiac cath 2017= NO STENTS History of right knee joint replacement History of back surgery Hx of laparoscopy History of kyphoplasty Family History Father Stroke Slow to wake up after anesthesia Myocardial infarction, Onset Age: 40 Mother Stroke Myocardial infarction, Onset Age: 60 Sister Myocardial infarction, Onset Age: 60 Social History Smoking Status: Former smoker Tobacco Type: Declines Cigarettes Per Day: quit 40 yrs ago; Smoking End Date: 40 years ago; Second Hand Exposure: Yes; Tobacco Cessation Education Requested by Patient: No Hx Alcohol Use: No Hx Substance Use: No Preferred Language: Greenlandic Communication Ability: Effective Visual Impairment: No Limitations Hearing Ability: Normal Event Promoter Required: No Beliefs That Will Affect Care: None marital status: Single Current Living Situation: Family Current Living Situation Comment: lives w/ sister Colleen current occupational status: unemployed and disabled Other Information That Helps Us Care for You: No Feels Safe at Home: Yes Safety Concerns: Feels Safe At This Time Diet: regular caffeine: Yes Assistive Devices: Glasses and Walker Review of Systems A total of 10 systems reviewed and were otherwise negative Physical Exam Vital Signs Vital Signs - 24 hr 09/19/24 13:17 09/19/24 18:21 09/19/24 18:30 Temperature 36.8 C Temperature Source Temporal Artery Scan Pulse Rate 80 97 H 97 H Respiratory Rate 19 18 Blood Pressure 152/71 H 150/50 H Blood Pressure Mean 98 83 Pulse Oximetry 98 94 Oxygen Delivery Method Room Air Room Air Sepsis Recent Fever Within 48 Hours No Sepsis New/Unexplained Change in Mental Status No Sepsis Action Taken by Nursing No Action Required VITAL SIGNS - Vital signs and nursing notes were reviewed. Stable and afebrile. GENERAL -69-year-old female appearing her stated age who is in no acute distress. Communicates well with provider and answers questions appropriately. SKIN -diffuse erythema to the left anterior pretibial soft tissues extending from the wound to the left medial proximal ankle region with erythema tracking to the left knee. Circumferential edema noted. HEAD - NC/AT. EYES - Sclera anicteric. MOUTH/OROPHARYNX - Without perioral cyanosis. NECK - No nuchal rigidity. LUNGS - CTA CARDIAC - RRR ABDOMEN - Abdominal contour normal without pulsations or visible masses. BS normoactive all four quadrants. No tenderness, palpable masses, hepatosplenomegaly, or ascites noted. EXTREMITIES - No clubbing or peripheral cyanosis. +5/5 strength noted in UE/LE bilaterally. Skin as above. No bony tenderness of the left lower extremity. No palpable cord. Left dorsalis pedis pulse within normal limits. NEUROLOGIC - Cranial nerves II through XII grossly intact. PSYCH -alert, oriented and pleasant on exam Course Administered Medications Clobetasol Propionate (Clobetasol Propionate 0.05% Cream 15 Gm Tube) 1 appln TOP BID PEGGY Stop: 10/19/24 20:59 Last Admin: 09/19/24 22:26 Dose: 1 appln Documented By: ALEXANDER Docusate Sodium (Docusate Sodium 100 Mg Cap) 100 mg PO BID PEGGY Stop: 10/19/24 20:59 Last Admin: 09/19/24 22:27 Dose: 100 mg Documented By: ALEXANDER Doxepin HCl (Doxepin Hcl 25 Mg Capsule) 25 mg PO HS PEGGY Stop: 10/19/24 20:59 Last Admin: 09/19/24 22:27 Dose: 25 mg Documented By: ALEXANDER Heparin Sodium (Porcine) (Heparin Sod 5,000 Unit/0.5 Ml Vial) 7,500 units SQ Q8 [facility] Stop: 10/19/24 21:59 Last Admin: 09/19/24 22:27 Dose: 7,500 units Documented By: ALEXANDER Memantine (Memantine Hcl 10 Mg Tab) 10 mg PO BID PEGGY Stop: 10/19/24 20:59 Last Admin: 09/19/24 22:27 Dose: 10 mg Documented By: ALEXANDER Metoprolol Succinate (Metoprolol Succ 25mg Ext Rel Tab) 12.5 mg PO BID [facility] Stop: 10/19/24 20:59 Last Admin: 09/19/24 22:28 Dose: 12.5 mg Documented By: ALEXANDER Oxycodone HCl (Oxycodone Hcl Ir 5 Mg Tab (Immediate Release)) 5 mg PO Q6H PRN PRN Reason: pain level 6-10 on a 1-10 scale Stop: 10/03/24 20:57 Last Admin: 09/19/24 22:32 Dose: 5 mg Documented By: ALEXANDER Pregabalin (Pregabalin 100 Mg Cap) 100 mg PO TID [facility] Stop: 10/19/24 20:59 Last Admin: 09/19/24 22:27 Dose: 100 mg Documented By: ALEXANDER Discontinued Medications Furosemide (Furosemide 40 Mg/4 Ml Vial) 20 mg IV ONE ONE Stop: 09/19/24 18:01 Last Admin: 09/19/24 22:27 Dose: 20 mg Documented By: ALEXANDER Daptomycin 650 mg/ Syringe 13 mls @ 6.5 mls/min IV NOW ONE; Protocol Stop: 09/19/24 15:03 Last Admin: 09/19/24 16:36 Dose: 6.5 mls/min Documented By: Sodium Chloride (Nss) 500 mls @ 125 mls/hr IV .Q4H ONE Stop: 09/19/24 20:00 Last Infusion: 09/19/24 18:05 Dose: Infused Documented By: Admin: 09/19/24 16:33 Dose: 125 mls/hr Documented By: Ceftriaxone Sodium (Rocephin) 2,000 mg in 50 mls @ 100 mls/hr IV NOW STA; Protocol Stop: 09/19/24 17:46 Last Infusion: 09/19/24 18:47 Dose: Infused Documented By: Admin: 09/19/24 18:05 Dose: 100 mls/hr Documented By: Ioversol (Optiray 320 125ml) 118 ml IV ONCE ONE Stop: 09/19/24 17:49 Last Admin: 09/19/24 17:48 Dose: 118 ml Documented By: OCTAVIA Medical Decision Making Laboratory Data 09/19/24 15:16 09/19/24 19:56 Lab Results 09/19/24 09/19/24 Range/Units 15:16 15:46 WBC 5.98 (4.8-10.8) K/ul RBC 3.91 L (4.20-5.40) M/uL Hgb 9.8 L (12.0-16.0) g/dl Hct 34.4 L (37.0-47.0) % MCV 88.0 (80.0-100.0) fL MCH 25.1 (25.0-34.0) pg MCHC 28.5 L (32.0-36.0) g/dL RDW Std Deviation 60.7 H (36.4-46.3) fL RDW Coeff of Brandy 19.0 H (11.5-14.5) % Plt Count 153 (130-400) K/uL MPV 11.1 (9.4-12.4) fL Immature Gran % (Auto) 0.2 % Neut % (Auto) 53.6 % Lymph % (Auto) 28.6 % [place] % (Auto) 13.2 % Eos % (Auto) 3.7 % Baso % (Auto) 0.7 % Neut # (Auto) 3.21 (1.40-6.50) K/uL Lymph # (Auto) 1.71 (1.20-3.40) K/uL [place] # (Auto) 0.79 H (0.11-0.59) K/uL Eos # (Auto) 0.22 (0.00-0.50) K/uL Baso # (Auto) 0.04 (0.00-0.20) K/uL Immature Gran # (Auto) 0.01 (0.01-0.20) K/uL PT 10.6 (9.0-12.0) Seconds INR 1.0 (0.9-1.1) APTT 27 (21-31) Seconds PTT Ratio 1.0 Sodium 141 (136-145) mmol/L Potassium 5.4 H (3.5-5.1) mmol/L Chloride 108 H (98-107) mmol/L Carbon Dioxide 27 (21-32) mmol/L Anion Gap 6 (3-11) BUN 41 H (6-23) mg/dl Creatinine 1.57 H (0.6-1.2) mg/dl Est Cr Clr Drug Dosing 51.4 ml/min eGFR 35.94 BUN/Creatinine Ratio 26.1 H (10-20) Glucose 87 (70-99(Fasting)) mg/dl Calcium 9.8 (8.6-10.3) mg/dl Total Bilirubin 0.4 (0.2-1.0) mg/dl AST 18 (13-39) U/L ALT 9 (7-52) U/L Alkaline Phosphatase 88 (34-104) U/L Troponin I High Sens 15.8 H (0-14) pg/ml B-Natriuretic Peptide 269 H (0-100) pg/ml Total Protein 7.8 (6.0-8.3) gm/dl Albumin 4.2 (3.4-5.0) gm/dl Globulin 3.6 (2.5-4.0) gm/dl Albumin/Globulin Ratio 1.2 (0.9-2) Procalcitonin < 0.02 (0-0.5) ng/ml Imaging Data Radiologist's Impression: Venous Doppler Study 09/19/24 13:24 ULTRASOUND BILATERAL LOWER EXTREMITY VENOUS CLINICAL HISTORY: Lower extremity pain and swelling. COMPARISON STUDY: Bilateral lower extremity venous ultrasound 08/12/2024. TECHNIQUE: Real-time, grayscale, and color Doppler sonography of the deep veins of the right and left lower extremity was performed from the inguinal crease to the calf. Compression and augmentation were utilized. FINDINGS: There is no sonographic evidence of deep venous thrombosis identified in the right or left lower extremity. The common femoral, superficial femoral, and popliteal veins are patent and normally compressible bilaterally. The greater saphenous vein and the profunda femoris vein at the junction with the common femoral vein are clear in both legs. The visualized calf veins are patent bilaterally. IMPRESSION: There is no sonographic evidence of deep venous thrombosis identified in the right or left lower extremity. ACT 112: Negative or not required by law. Electronically signed by: Jonah Farris M.D. 09/19/2024 2:25 PM Chest X-Ray 09/19/24 15:19 Clinical History: Elevated d-dimer Technique: 2 frontal views of the chest were obtained Comparison is made to the prior examination dated 02/20/2024 Findings: There are no confluent pulmonary infiltrates. The heart is mildly enlarged. There is suspected mild pulmonary edema. No pleural effusion or pneumothorax is seen. There is no definite pulmonary nodule. No fracture is noted. No foreign body is seen Impression: Mild cardiomegaly and pulmonary edema Electronically signed by Judah Hatfield 09-19-2024 4:42 PM Chest CTA 09/19/24 17:12 Clinical history: Shortness of breath Technique: Axial computed tomography images were obtained of the chest after the administration of intravenous contrast according to the CT angiogram protocol Findings: There is no definite sign of pulmonary embolism. There is suspected mild pulmonary edema. There is no pleural effusion or pneumothorax. There is no sign of pulmonary fibrosis or other diffuse interstitial process. No endobronchial lesion is seen There is no mediastinal, hilar, or axillary adenopathy. The thoracic aorta appears unremarkable with no sign of aneurysm or dissection. There is no pericardial effusion There is a 1.6 cm low-attenuation right adrenal nodule, likely a benign adenoma. There is an old T6 compression fracture with vertebroplasty changes. No focal osseous lesion is evident Impression: 1. No definite sign of pulmonary embolism 2. Mild pulmonary edema 3. Right adrenal adenoma Electronically signed by Judah Hatfield 09-19-2024 7:29 PM MDM Narrative Patient was seen and evaluated as above in room D3b. Review was performed of triage nursing notes and vital signs. I did review pertinent previous visits and patient history. After obtaining a thorough history and physical examination the above work up was performed. Patient presents to us today for evaluation of ongoing left leg pain. She had an elevated D-dimer yesterday. She returns today for further assessment. Doppler studies were already performed prior to me evaluating the patient. No DVT noted in the left or right lower extremity. Options of care were discussed with the patient. IV access was established. Labs were drawn. The left lower extremity erythema and edema is most consistent with that of infectious process. There is no crepitus. No evidence of necrotizing process clinically. I reviewed previous cultures. IV daptomycin was ordered. I do believe that further evaluation and management in the inpatient setting is warranted. I discussed the case with the hospitalist service. Noting elevated D-dimer, in speaking with Dr. Mar, recommendation was consideration of CTA of the chest. We will gently hydrate the patient prior to the imaging. Chest x-ray per my interpretation does reveal mild volume overload. EKG per my interpretation reveals normal sinus rhythm rate of 88 bpm. QTc 428. QRS 80. No ST elevation. CTA ordered by hospitalist service. Wound culture was obtained prior to initiation of antibiotics here today. Please refer to further documentation regarding her stay. GCS: 15 In the evaluation and treatment of this patient the following differential diagnoses were entertained: Cellulitis, necrotizing fasciitis, DVT, among others Impression & Plan Leg wound, left, Cellulitis of lower leg Discharge Plan Visit Data Chief Complaint: Leg Injury/Pain Stated Complaint: LEG NEEDS LOOKED AT BC OF POSSIBLE BLOOD CLOT ED Provider: Ramos Webb ED Midlevel Provider: Kalpesh Blake Discharge Problem: Leg wound, left, Cellulitis of lower leg Patient Disposition: Admitted As Inpatient Condition: Fair Discharge Instructions Interventions: ED Discharge Assessment Last Done: 09/19/24 21:21
--- NOTE | 2024-09-19 15:22 | History & Physical Report ---
Date of Service September 19, 2024 Assessment & Plan (1) Cellulitis of lower leg: Plan: Lower extremity pain, swelling Venous duplex negative Markedly elevated D-dimer. Patient is with history of PE/VTE. Has a concurrent history of CKD./Q study limited and currently only able to perform perfusion portion. Given high risk with past history of VTE/PE, some cough, preceding leg swelling elevated D-dimer CTAPE evaluation is warranted. Did discuss risk of contrast nephropathy with patient. Creatinine clearance 51, EGFR 35. He is not overtly volume overloaded. Was initially started on rehydration however x-ray subsequently shows evidence of CHF/pulmonary edema. Additional fluids discontinued. Will be transition to diuresis CTA: No evidence of PE. Pulmonary edema noted. Procalcitonin negative, no leukocytosis Has demarcated erythema with reports of possible purulence which daptomycin was given. On assessment there is a large area of demarcated bright erythema, tenderness, and warmth consistent with cellulitis but no purulence is appreciated. There is a scant amount of serosanguineous drainage from a unroofed 2 cm blister at the distal lower extremity however there is no crusting or purulence associated with this. Prior cultures are positive for MSSA. Given no crusted/purulent appearance and prior cultures are oxacillin sensitive can cover both gram-negative's and prior cultures appropriately with Rocephin and potentially cefpodoxime on discharge. Wound culture was sent. If patient is worsening, crust/purulence develops, or cultures are positive for MRSA then continue coverage for this at that time Acute on chronic HFpEF, severe History of CAD dyspnea on exertion 07/09/2024: Trivial PFO. Echo 04/2024: EF 55-60%. Severe . Mild AR, mild TR, PASP 50. Mild concentric LVH Heart failure with with significant valvular component, preserved ejection fraction. Chest x-ray is overtly volume overloaded lower extremities are with pitting edema bilaterally. Caution of overly aggressive diuresis with her AAS as she will be preload dependent. CTA without evidence of PE. Pulmonary edema and evidence of acute CHF is noted. Diuresis ordered CKD 3 Baseline creatinine approximately 1.371.7 Admitting creatinine 1.57, downtrending from prior Slight hyperkalemia. Lasix as noted. Hypervolemic pending Lasix as above Monitor for risk of contrast nephropathy following CTAPE study. This risk was discussed with the patient prior study, as she has not been anticoagulated but does have a history of VTE PE and positive D-dimer risk of PE as PE outweighs low to moderate risk of contrast nephropathy GERD No acute symptoms Acute OHS/suspected sleep apnea Do not use CPAP at home Past elevated risk by STOP-BANG screening for LILY CPAP at bedtime as needed. 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 No leukocytosis Hemoglobin at baseline D-dimer 1160 Per ER signout patient was seen previously in the ER however did refuse to stay for the workup and results at that time. Presents with worsening leg pain and after notification of positive D-dimer Is seen at the bedside. She reports that she has had several days of worsening left lower leg extremity swelling and pain although this worsened significantly in the last 24 hours. She had a small blister which drained some clearish fluid she was seen Gram stain atraumatic. She has not had any fever chills or sweats. She reports in the last week or 2 she has had a nonproductive cough and has felt a little short of breath, and her shortness of breath does get worse when she lays flat. She denies chest pain or chest pressure. She has a past history of VTE/DVT, although this did not migrate and no PE. She is no longer on blood thinners. She reports that her blood clot to her knowledge was unprovoked and did not have any cause for this. She is not sure why she is not on blood thinners she thinks that this was done after she had her watchman but does not remember why she had the watchman. She reports she had had some intermittent bleeding and nosebleeds, but denies GI bleed. No recent bleeding reports her last bleeding problems were several years ago. Denies hemoptysis Denies abdominal pain Denies hematochezia/melena Denies lightheadedness/dizziness Medical History: Reviewed Medications: Reviewed Surgical History: Reviewed Family history: Reviewed Allergies: Reviewed Social History: No tobacco/etoh/rec drug use Code Status: DNR/DNI Allergies Allergy/AdvReac Type Severity Reaction Status Date / Time egg AdvReac Intermediate GI upset Verified 09/18/24 23:29 ibuprofen AdvReac Intermediate stomach Verified 09/18/24 23:29 irritation morphine AdvReac Intermediate LEGS SWELL Verified 09/18/24 23:29 Home Medications Medication Instructions Recorded Confirmed Type dupilumab 300 mg/2 mL subcutaneous 300 mg subcut Q14D 09/14/23 09/19/24 History pen injector (Dupixent) ascorbic acid (vitamin C) 250 mg 250 mg PO QAM #30 tabs 11/03/23 09/19/24 Rx tablet betamethasone dipropionate 0.05 % 1 applic topical BID PRN RASH 11/03/23 09/19/24 Rx topical ointment FACE/TRUNK/ARMS #15 grams calcipotriene 0.005 % topical cream 1 applic topical DAILY PRN flare 11/03/23 09/19/24 Rx up #60 grams cholecalciferol (vitamin D3) 25 1,000 unit PO QAM #30 tabs 11/03/23 09/19/24 Rx mcg (1,000 unit) tablet (Vitamin D3) clotrimazole 1 % topical cream 1 applic topical BID PRN Itching 11/03/23 09/19/24 Rx #45 grams cyanocobalamin (vitamin B-12) 1,000 mcg PO QAM #30 tabs 11/03/23 09/19/24 Rx 1,000 mcg tablet (Vitamin B-12) docusate sodium 100 mg capsule 100 mg PO BID #60 caps 11/03/23 09/19/24 Rx (Colace) doxepin 25 mg capsule 25 mg PO HS #30 caps 11/03/23 09/19/24 Rx fish, borage, flaxseed oils-omega 1 cap PO QAM #30 caps 11/03/23 09/19/24 Rx 3,6,9 comb no.1 1,200 mg capsule ([place] 3-6-9) folic acid 800 mcg tablet 0.8 mg PO QAM #30 tabs 11/03/23 09/19/24 Rx memantine 10 mg tablet 10 mg PO BID #60 tabs 11/03/23 09/19/24 Rx metoprolol succinate 25 mg 12.5 mg (1/2 x 25 mg) PO BID #30 11/03/23 09/19/24 Rx tablet,extended release 24 hr tabs tacrolimus 0.1 % topical ointment 1 applic topical BID PRN itching 11/03/23 09/19/24 Rx #30 grams pantoprazole 40 mg tablet,delayed 40 mg PO QAM #30 tabs 06/21/24 09/19/24 Rx release oxycodone 5 mg tablet 5 mg PO Q6H PRN pain level 6-10 on 08/15/24 09/19/24 Rx a 1-10 scale #10 tabs clobetasol 0.05 % topical cream 1 applic topical BID bullous 09/11/24 09/19/24 Rx pemphigoid and psoriasis #60 grams triamcinolone acetonide 0.025 % 1 applic topical BID PRN psoriasis 09/11/24 09/19/24 Rx topical ointment #15 grams duloxetine 60 mg capsule,delayed 120 mg PO QAM 09/18/24 09/19/24 History release aspirin 81 mg chewable tablet 81 mg PO QAM 09/19/24 09/19/24 History (Aspirin Childrens) atorvastatin 80 mg tablet 80 mg PO QAM 09/19/24 09/19/24 History cephalexin 500 mg tablet 500 mg PO TID 7 days #21 tabs 09/19/24 09/19/24 Rx clopidogrel 75 mg tablet 75 mg PO QAM 09/19/24 09/19/24 History cyclosporine 0.05 % eye drops in a 1 drp OPB .EVERY 12 HOURS 09/19/24 09/19/24 History dropperette furosemide 20 mg tablet 20 mg PO 3XWK 09/19/24 09/19/24 History pregabalin 100 mg capsule 100 mg PO TID 09/19/24 09/19/24 History sodium chloride 0.65 % nasal spray 2 spray NA Q6H PRN NASAL DRYNESS 09/19/24 09/19/24 History aerosol (Saline Mist) sumatriptan succinate 25 mg tablet 525 mg PO DIRECTED PRN Migraine 09/19/24 09/19/24 History Headache Past Med/Surg History Problem List (Updated 09/19/24 @ 17:32 by Kendrick Mar MD) Cellulitis of lower leg Urinary frequency (Acute) Cellulitis (Acute) Elevated troponin (Acute) Left leg weakness (Acute) CHF (congestive heart failure) Dyspnea on exertion Hypertension (Acute) Chronic back pain (Acute) Thrombolytic medication administered within last 5 days (Acute) Stroke-like symptoms (Acute) Left leg weakness (Acute) Skin tear of left upper extremity (Acute) Chronic venous insufficiency (Chronic) Edema of left lower extremity Traumatic open wound of left lower leg with delayed healing (Acute) Leg wound, left (Acute) Obtunded (Acute) Acute confusion (Acute) Deep laceration of knee (Acute) Fracture, patella (Acute) Encephalopathy Leg laceration Left knee injury Acute kidney injury superimposed on CKD (Acute) Back pain (Acute) Fall (Acute) Right hip pain Hyperkalemia Orthostatic hypotension Hypotension Ambulatory dysfunction (Acute) Metatarsal bone fracture (Acute) Closed fibular fracture (Acute) Fall Presence of Watchman left atrial appendage closure device Paroxysmal atrial fibrillation Bullous pemphigoid (Chronic) Chronic anemia Severe aortic stenosis Closed fracture of proximal end of right fibula Paroxysmal atrial fibrillation Moderate aortic stenosis Atypical chest pain Chest pain (Acute) Acute anterior epistaxis (Acute) Hiatal hernia Uncontrolled hypertension Obesity (Acute) Atrial flutter, paroxysmal Aortic stenosis Bicuspid aortic valve Chronic low back pain GERD (gastroesophageal reflux disease) Dyslipidemia Atrial flutter, paroxysmal Candidal intertrigo DVT prophylaxis Chest pain (Acute) Neurogenic claudication due to lumbar spinal stenosis Feeling of incomplete bladder emptying Anemia (Acute) Stage 3 chronic kidney disease (Acute) Anxiety and depression CAD (coronary artery disease) non-obstructive Hypertension (Acute) Medical History Skin tear of elbow without complication Nose septum perforation Chronic low back pain Sacroiliitis IBS (irritable bowel syndrome) Borderline diabetes mellitus A-fib "i think i have a-fib." -- on eliquis -- follows with Dr. Torres History of TIA (transient ischemic attack) 2017 Cardiac murmur History of skin cancer History of COVID-19 02/2020; generalized weakness, diarrhea, sob, fever, body aches; hospitalized x 1 week; c/o ongoing brain fog since having covid Verbalizes suicidal thoughts COVID-19 Nocturia Acute urinary retention Back pain Renal failure Morbid obesity BMI 50.5 Carotid artery stenosis "mild" Aortic stenosis Mild (per cardiology review) aortic stenosis with possible bicuspid aortic valve (MG 19mmhg, NIKKIE 3.0) per 05/2018 ECHO Anemia Osteoporosis GERD (gastroesophageal reflux disease) controlled Chronic back pain High cholesterol Hx of falling last fall 09/2018- per patient, related to LBP/balance issues- ? r/t ambulatory dysfunction- improved with cane/walker use Surgical History History of right cataract extraction S/P epidural steroid injection History of appendectomy History of cardiac cath 2017= NO STENTS History of right knee joint replacement History of back surgery Hx of laparoscopy History of kyphoplasty Family History Father Stroke Slow to wake up after anesthesia Myocardial infarction, Onset Age: 40 Mother Stroke Myocardial infarction, Onset Age: 60 Sister Myocardial infarction, Onset Age: 60 Social History Smoking Status: Former smoker Tobacco Type: Declines Cigarettes Per Day: quit 40 yrs ago; Second Hand Exposure: Yes; Hx Alcohol Use: No Hx Substance Use: No Preferred Language: Wolof Communication Ability: Effective Visual Impairment: No Limitations Hearing Ability: Normal Trouble Locator Test Desk Required: No Beliefs That Will Affect Care: None marital status: Single Current Living Situation: Family Current Living Situation Comment: lives w/ sister Colleen current occupational status: unemployed and disabled Feels Safe at Home: Yes Diet: regular caffeine: Yes Assistive Devices: Glasses and Walker Physical Exam Physical Exam: General: A&Ox3. NAD. Cooperative. HEENT: Atraumatic, normocephalic. Vision and hearing grossly intact Pulm: Bibasilar crackles present, diminished. No wheezing. Symmetrical chest rise. No increased work of breathing. No respiratory distress. Cardiac: RRR, stock murmur present. Radial pulses intact and symmetrical. Abdominal: Nontender, nondistended, soft. BS present. Extremities: Left lower extremity with demarcated bright erythema, warmth, and tenderness. Proximately 2 cm in diameter distal unroofed blister draining scant serosanguineous material without obvious crust or purulence. Sensation intact i n the feet bilaterally to soft touch. Ankle dorsiflexion/plantarflexion, brake specialist, elbow flexion intact. Results & Data Results & Data Vital Signs (Past 12 Hours) Vital Signs Temp Pulse Resp BP Pulse Ox O2 Del Method 09/19/24 13:17 36.8 C 80 19 152/71 H 98 Room Air PG Care Time/CCT Total # of Minutes Spent Total Time Spent with Patient: Total time spent is greater than 50% in coordination of care (as documented) at patient's floor/unit and/or counseling patient: Coding Level of Care Code 43978 INT INP/OBS CARE 3/75MIN Diagnoses Cellulitis of lower leg L03.119 CHF (congestive heart failure) I50.9 Hypertension I10 Hypertension type: unspecified Atrial flutter, paroxysmal I48.92 GERD (gastroesophageal reflux disease) K21.9 A-fib I48.91 (3) Hypertension Hypertension type: unspecified Qualified Code(s): I10 - Essential (primary) hypertension
[2024-09-19 15:32] LABS: Hematocrit (blood only) 34.4 % (37.0-47.0); Hemoglobin 9.8 g/dl (12.0-16.0); Immature Granulocytes # (auto) 0.01 K/uL (0.01-0.20); Immature Granulocytes % (auto) 0.2 %; Mean Corpuscular Hemoglobin 25.1 pg (25.0-34.0); Mean Corpuscular Volume 88.0 fL (80.0-100.0); Platelet Count 153 K/uL (130-400); RDW Standard Deviation 60.7 fL (36.4-46.3); Red Blood Count 3.91 M/uL (4.20-5.40); White Blood Count 5.98 K/ul (4.8-10.8)
[2024-09-19 15:51] LABS: Alanine Aminotransferase 9.0 U/L (7-52); Albumin Globulin Ratio 1.2 (0.9-2); Alkaline Phosphatase 88.0 U/L (34-104); Anion Gap 6.0 (3-11); Bilirubin,Total 0.4 mg/dl (0.2-1.0); Blood Urea Nitrogen 41.0 mg/dl (6-23); Calcium 9.8 mg/dl (8.6-10.3); Carbon Dioxide 27.0 mmol/L (21-32); Chloride 108.0 mmol/L (98-107); Creatinine Clr Calc Pharmacy 51.4 ml/min; Globulin 3.6 gm/dl (2.5-4.0); Glucose 87.0 mg/dl (70-99(Fasting)); Potassium 5.4 mmol/L (3.5-5.1); Sodium 141.0 mmol/L (136-145); Total Protein 7.8 gm/dl (6.0-8.3)
[2024-09-19 16:04] LABS: INR 1.0 (0.9-1.1); Partial Thromboplastin Time 27 Seconds (21-31); Prothrombin Time 10.6 Seconds (9.0-12.0)
[2024-09-19] MEDS: SODIUM CHLORIDE 0.9% 500 ML IV ONE (16:33)
[2024-09-19] MEDS: DAPTOmycin 650 MG in SYRINGE 0 ML IV ONE (16:36)
--- NOTE | 2024-09-19 16:42 | XRay Report ---
Clinical History: Elevated d-dimer Technique: 2 frontal views of the chest were obtained Comparison is made to the prior examination dated 02/20/2024 Findings: There are no confluent pulmonary infiltrates. The heart is mildly enlarged. There is suspected mild pulmonary edema. No pleural effusion or pneumothorax is seen. There is no definite pulmonary nodule. No fracture is noted. No foreign body is seen Impression: Mild cardiomegaly and pulmonary edema Electronically signed by Judah Hatfield 09-19-2024 4:42 PM
[2024-09-19] MEDS: OPTIRAY 320 125ml IV ONE (17:48)
[2024-09-19] MEDS ORDERED: FUROSEMIDE 40 MG/4 ML VIAL IV ONE (18:00)
[2024-09-19] MEDS: cefTRIAXone SODIUM 2,000 MG/50 ML BAG IV STA (18:05)
--- NOTE | 2024-09-19 19:29 | CT Scan Report ---
Clinical history: Shortness of breath Technique: Axial computed tomography images were obtained of the chest after the administration of intravenous contrast according to the CT angiogram protocol Findings: There is no definite sign of pulmonary embolism. There is suspected mild pulmonary edema. There is no pleural effusion or pneumothorax. There is no sign of pulmonary fibrosis or other diffuse interstitial process. No endobronchial lesion is seen There is no mediastinal, hilar, or axillary adenopathy. The thoracic aorta appears unremarkable with no sign of aneurysm or dissection. There is no pericardial effusion There is a 1.6 cm low-attenuation right adrenal nodule, likely a benign adenoma. There is an old T6 compression fracture with vertebroplasty changes. No focal osseous lesion is evident Impression: 1. No definite sign of pulmonary embolism 2. Mild pulmonary edema 3. Right adrenal adenoma Electronically signed by Judah Hatfield 09-19-2024 7:29 PM
[2024-09-19 20:21] LABS: Anion Gap 6.0 (3-11); Blood Urea Nitrogen 40.0 mg/dl (6-23); Calcium 9.3 mg/dl (8.6-10.3); Carbon Dioxide 25.0 mmol/L (21-32); Chloride 108.0 mmol/L (98-107); Creatinine Clr Calc Pharmacy 49.8 ml/min; Glucose 125.0 mg/dl (70-99(Fasting)); Potassium 5.2 mmol/L (3.5-5.1); Sodium 139.0 mmol/L (136-145)
[2024-09-19] MEDS ORDERED: CLOTRIMAZOLE 1% CR 15 GM TUBE TOP PRN (20:58)
[2024-09-19] MEDS ORDERED: SODIUM CHLORIDE 0.65% NA SOLN 45 ML (OCEAN) PRN (20:58)
[2024-09-19] MEDS ORDERED: ARTIFICIAL TEARS OP PRN (21:21)
[2024-09-19] MEDS: CLOBETASOL PROPIONATE 0.05% CREAM 15 GM TUBE TOP SCH (22:26)
[2024-09-19] MEDS: HEPARIN SOD 5,000 UNIT/0.5 ML VIAL SQ SCH (22:27)
[2024-09-19] MEDS: MEMANTINE HCL 10 MG TAB PO SCH (22:27)
[2024-09-19] MEDS: DOXEPIN HCL 25 MG CAPSULE PO SCH (22:27)
[2024-09-19] MEDS: DOCUSATE SODIUM 100 MG CAP PO SCH (22:27)
[2024-09-19] MEDS: PREGABALIN 100 MG CAP PO SCH (22:27)
[2024-09-19] MEDS: FUROSEMIDE 40 MG/4 ML VIAL IV ONE (22:27)
[2024-09-19] MEDS: METOPROLOL SUCC 25MG EXT REL TAB PO SCH (22:28)
[2024-09-20] MEDS: MICONAZOLE NITRATE POWDER 85 GM EXT SCH (01:27)
[2024-09-20 03:57] LABS: Hematocrit (blood only) 31.5 % (37.0-47.0); Hemoglobin 9.5 g/dl (12.0-16.0); Immature Granulocytes # (auto) 0.01 K/uL (0.01-0.20); Immature Granulocytes % (auto) 0.1 %; Mean Corpuscular Hemoglobin 26.1 pg (25.0-34.0); Mean Corpuscular Volume 86.5 fL (80.0-100.0); Platelet Count 133 K/uL (130-400); RDW Standard Deviation 59.7 fL (36.4-46.3); Red Blood Count 3.64 M/uL (4.20-5.40); White Blood Count 8.94 K/ul (4.8-10.8)
[2024-09-20 04:08] LABS: Anion Gap 6.0 (3-11); Blood Urea Nitrogen 40.0 mg/dl (6-23); Calcium 9.6 mg/dl (8.6-10.3); Carbon Dioxide 28.0 mmol/L (21-32); Chloride 105.0 mmol/L (98-107); Creatinine Clr Calc Pharmacy 85.7 ml/min; Glucose 100.0 mg/dl (70-99(Fasting)); Potassium 5.0 mmol/L (3.5-5.1); Sodium 139.0 mmol/L (136-145)
[2024-09-20] MEDS: ACETAMINOPHEN 325 MG TAB PO PRN (07:42)
[2024-09-20] MEDS: ASCORBIC ACID 500 MG TAB PO SCH (08:18)
[2024-09-20] MEDS: CYANOCOBALAMIN (B-12) 500 MCG TABLET PO SCH (08:18)
[2024-09-20] MEDS: CHOLECALCIFEROL 25 MCG (1000 UNITS) TAB PO SCH (08:19)
[2024-09-20] MEDS: FOLIC ACID 400 MCG TAB PO SCH (08:19)
[2024-09-20] MEDS: CLOPIDOGREL BISULFATE 75 MG TAB PO SCH (08:20)
[2024-09-20] MEDS: ASPIRIN 81 MG CHEW PO SCH (08:24)
[2024-09-20] MEDS: FUROSEMIDE 40 MG/4 ML VIAL IV SCH (08:24)
[2024-09-20] MEDS: ONDANSETRON INJ 2 MG/ML 2 ML VIAL IV PRN (09:56)
--- NOTE | 2024-09-20 12:59 | Hospitalist Progress Note ---
Date of Service September 20, 2024 Assessment & Plan (1) Cellulitis of lower leg: Plan: Lower extremity pain, swelling. Suspect acute left lower extremity cellulitis with underlying swelling and acute after Venous duplex negative Elevated D-dimer. Risk/benefits of contrast nephropathy versus missed VTE given history of DVT was discussed on admission. CTA subsequently obtained. No PE, CHF/pulmonary edema noted Procalcitonin negative, no leukocytosis Bright tender asymmetric demarcated erythema consistent with cellulitis on admission is greatly improved on 09/20. Also has improvement in leg swelling/edema component. Patient narrowed to Rocephin monotherapy. If she starts to worsen then would add daptomycin back at that time otherwise we will continue Rocephin with the plan to transition to cefpodoxime on discharge. Acute on chronic HFpEF, severe History of CAD dyspnea on exertion 07/09/2024: Trivial PFO. Echo 04/2024: EF 55-60%. Severe . Mild AR, mild TR, PASP 50. Mild concentric LVH Heart failure with with significant valvular component, preserved ejection fraction. Chest x-ray is overtly volume overloaded lower extremities are with pitting edema bilaterally. Caution of overly aggressive diuresis with her AAS as she will be preload dependent. Very brisk output to just 20 mg of IV Lasix, 20 to 50 cc of output with net negative of 2 L. Blood pressure stable overnight with diuresis. Will continue 20 mg IV twice daily dose of Lasix and follow renal function. Clinically remains with significant leg swelling and some orthopnea however both are improved morning of / Chronic pain Home medications continued Had some additional pain due to the hospital bed reported this morning. 1 dose of tramadol 50 mg was given as she had already received Tylenol and NSAIDs were not recommended. Unfortunately did have some sedation although was easily arousable following this and episode of transient hypotension 97/51 which improved on recheck. Differential for her low blood pressure includes sensitivity to her CONNOR arctic stenosis while diuresing however suspect that this was medication effect. CKD 3 Baseline creatinine approximately 1.371.7 Admitting creatinine at baseline Slight hyperkalemia. Volume overloaded. Diuresing as noted Monitor for risk of contrast nephropathy following CTAPE study. She reports a high potassium intake/bananas at home daily, is hopeful that if she switches her Lasix to daily that her potassium stays within normal ranges and that she does not have to change this part of her diet GERD No acute symptoms Acute OHS/suspected sleep apnea Do not use CPAP at home Past elevated risk by STOP-BANG screening for LILY CPAP at bedtime as needed. Recommend following up as outpatient for formal sleep study DVT prophylaxis: Heparin subcu CODE STATUS: DNR/DNI (2) CHF (congestive heart failure): (3) Hypertension: (4) Atrial flutter, paroxysmal: (5) GERD (gastroesophageal reflux disease): (6) A-fib: Admission and Anticipated Discharge Date Admission Date: September 19, 2024 Subjective . Seen at the bedside. She expresses some frustration to having to be in the hospital, expresses appreciation of care and notes that she would like to go home but knows she probably needs to stay for another day or 2. She reports she has had good/brisk urine output since receiving the Lasix and does feel that the swelling in her legs and the tightness is better. She feels that her breathing is less labored and again better, and notes that the shortness of breath she would get when she laid back seems to have improved although has not resolved. She reports her chronic pain including in her back is worse from being in the hospital bed. While the pain in her legs is much better she does note that she has noticed that she is having some pain in her left foot which is new and which hurts when she tries to flex or extend her ankle. She has not noticed this before and this is separate and different from the tightness and pain that was in her leg. She denies calf pain, notes that this is isolated to the top of her left foot. Denies injuries falls and rolling her Denies fever chills overnight Is not sure how her leg is doing but notes it feels a little less painful than before Denies chest pain at time of morning visit Physical Exam Physical Exam: General: A&Ox3. NAD. Cooperative. HEENT: Atraumatic, normocephalic. Vision and hearing grossly intact Pulm: Bibasilar crackles present, diminished. No wheezing. Symmetrical chest rise. No increased work of breathing. No respiratory distress. Cardiac: RRR, stock murmur present. Radial pulses intact and symmetrical. Abdominal: Nontender, nondistended, soft. BS present. Extremities: Left lower extremity with demarcated erythema which is receding from prior border and much less bright 8/1, appears to be improving. She has no malleoli or tenderness but has a focal point tenderness overlying the navicular bone. Results & Data Results & Data Vital Signs (Past 12 Hours) Vital Signs Temp Pulse Pulse Pulse Resp BP BP 09/20/24 11:35 36.5 C 88 16 97/51 L 89/54 L 09/20/24 07:41 09/20/24 07:34 36.7 C 97 H 18 122/72 09/20/24 05:54 92 H 09/20/24 03:16 36.5 C 102 H 20 129/56 L Pulse Ox O2 Del Method O2 Flow Rate 09/20/24 11:35 92 Nasal Cannula 2 09/20/24 07:41 Room Air 09/20/24 07:34 96 Room Air 09/20/24 05:54 09/20/24 03:16 98 Room Air PG Care Time/CCT Total # of Minutes Spent Total Time Spent with Patient: Total time spent is greater than 50% in coordination of care (as documented) at patient's floor/unit and/or counseling patient: Coding Level of Care Code 28879 SUB INP/OBS CARE 3/50MIN Diagnoses Cellulitis of lower leg L03.119 CHF (congestive heart failure) I50.9 Hypertension I10 Hypertension type: unspecified Atrial flutter, paroxysmal I48.92 GERD (gastroesophageal reflux disease) K21.9 A-fib I48.91 (3) Hypertension Hypertension type: unspecified Qualified Code(s): I10 - Essential (primary) hypertension
--- NOTE | 2024-09-20 13:55 | XRay Report ---
XR foot LT min 3V routine CLINICAL HISTORY: navicular point tenderness, fxr eval COMPARISON: None FINDINGS: No acute fracture or dislocation seen at the left foot. No fracture or osseous lesion seen at the navicular. No erosion or significant degenerative change. There is a small plantar calcaneal spur. No radiopaque foreign body. There is mild pes planus. IMPRESSION: No fracture seen. ACT 112: Negative or not required by law. Electronically signed by: Trip Le M.D. 09/20/2024 1:54 PM
[2024-09-20] MEDS: cefTRIAXone SODIUM 2,000 MG/50 ML BAG IV SCH (16:55)
[2024-09-20 23:43] LABS: A calco-baum cmplx NotReported Not Detected (NotDetected); Bact fragilis Not Reported Not Detected (NotDetected); Blood Culture Id Panel See PCR Comment (NotDetected); C auris Not Reported Not Detected (NotDetected); Calbicans Not Reported Not Detected (NotDetected); Candida glabrata Not Reported Not Detected (NotDetected); Candida krusei Not Reported Not Detected (NotDetected); Cneoformans/gatti Not Reported Not Detected (NotDetected); Cparapsilosis Not Reported Not Detected (NotDetected); Ctropicalis Not Reported Not Detected (NotDetected); E cloacae compx Not Reported Not Detected (NotDetected); Efaecalis Not Reported Not Detected (NotDetected); Efaecium Not Reported Not Detected (NotDetected); Enterobacterales Not Reported Not Detected (NotDetected); Escherichia coli Not Reported Not Detected (NotDetected); H influenzae Not Reported Not Detected (NotDetected); K aerogenes Not Reported Not Detected (NotDetected); Koxytoca Not Reported Not Detected (NotDetected); Kpneumoniae grp Not Reported Not Detected (NotDetected); Lmonocyt Not Reported Not Detected (NotDetected); N meningitidis Not Reported Not Detected (NotDetected); P aeruginosa Not Reported Not Detected (NotDetected); Proteus spp Not Reported Not Detected (NotDetected); Salmonella spp Not Reported Not Detected (NotDetected); Staph lugdunensis Not Reported Not Detected (NotDetected); Staph spp. Not Reported DETECTED (NotDetected); Staphaureus Not Reported Not Detected (NotDetected); Staphepi Not Reported Not Detected (NotDetected); Stenmaltophilia Not Reported Not Detected (NotDetected); Strep agal(GrpB) Not Reported Not Detected (NotDetected); Strep pneum Not Reported Not Detected (NotDetected); Strep pyog (GrpA) Not Reported Not Detected (NotDetected); Strep spp Not Reported Not Detected (NotDetected)
--- NOTE | 2024-09-21 | Electrocardiogram Report ---
Test Reason : Blood Pressure : */* mmHG Vent. Rate : 88 BPM Atrial Rate : 88 BPM P-R Int : 152 ms QRS Dur : 80 ms QT Int : 354 ms P-R-T Axes : 45 9 56 degrees QTcB Int : 428 ms Normal sinus rhythm Normal ECG When compared with ECG of 12-Aug-2024 13:12, Nonspecific T wave abnormality no longer evident in Inferior leads Confirmed by Shaun Queen ([id number]) on 09/20/2024 11:59:58 PM Referred By: REFERRED SELF Confirmed By: Shaun Queen
[2024-09-21 01:33] LABS: Staphylococcus spp. DETECTED (NotDetected)
[2024-09-21 06:41] LABS: Hematocrit (blood only) 31.7 % (37.0-47.0); Hemoglobin 8.9 g/dl (12.0-16.0); Immature Granulocytes # (auto) 0.01 K/uL (0.01-0.20); Immature Granulocytes % (auto) 0.2 %; Mean Corpuscular Hemoglobin 25.1 pg (25.0-34.0); Mean Corpuscular Volume 89.5 fL (80.0-100.0); Platelet Count 125 K/uL (130-400); RDW Standard Deviation 60.2 fL (36.4-46.3); Red Blood Count 3.54 M/uL (4.20-5.40); White Blood Count 5.07 K/ul (4.8-10.8)
[2024-09-21 07:13] LABS: Anion Gap 5.0 (3-11); Blood Urea Nitrogen 41.0 mg/dl (6-23); Calcium 9.3 mg/dl (8.6-10.3); Carbon Dioxide 31.0 mmol/L (21-32); Chloride 102.0 mmol/L (98-107); Creatinine Clr Calc Pharmacy 42.0 ml/min; Glucose 88.0 mg/dl (70-99(Fasting)); Potassium 5.6 mmol/L (3.5-5.1); Sodium 138.0 mmol/L (136-145)
[2024-09-21] MEDS: CALCIUM GLUCONATE 1,000 MG/60 ML BAG IV STA (07:50)
[2024-09-21 12:27] LABS: Anion Gap 3.0 (3-11); Blood Urea Nitrogen 42.0 mg/dl (6-23); Calcium 9.4 mg/dl (8.6-10.3); Carbon Dioxide 33.0 mmol/L (21-32); Chloride 102.0 mmol/L (98-107); Creatinine Clr Calc Pharmacy 43.0 ml/min; Glucose 139.0 mg/dl (70-99(Fasting)); Potassium 5.3 mmol/L (3.5-5.1); Sodium 138.0 mmol/L (136-145)
[2024-09-21] MEDS: SODIUM ZIRCONIUM CYCLOSILICATE 10 GM PACKET PO ONE (13:02)
--- NOTE | 2024-09-21 13:12 | Hospitalist Progress Note ---
Date of Service September 21, 2024 Assessment & Plan (1) Cellulitis of lower leg: Plan: Left lower extremity cellulitis, resolving Venous duplex negative Elevated D-dimer. Risk/benefits of contrast nephropathy versus missed VTE given history of DVT was discussed on admission. CTA subsequently obtained. No PE, CHF/pulmonary edema noted Procalcitonin negative, no leukocytosis Bright tender asymmetric demarcated erythema consistent with cellulitis on admission is greatly improved with antibiotics, nearly resolved 09/21 Complete 1 week course of antibiotics anticipate Rocephin to be converted to cefpodoxime on discharge Acute on chronic HFpEF, severe History of CAD dyspnea on exertion 07/09/2024: Trivial PFO. Echo 04/2024: EF 55-60%. Severe . Mild AR, mild TR, PASP 50. Mild concentric LVH Heart failure with with significant valvular component, preserved ejection fraction. Chest x-ray is overtly volume overloaded lower extremities are with pitting edema bilaterally. Caution of overly aggressive diuresis with her AAS as she will be preload dependent. Patient continues to have stable renal function and brisk urine output to relatively low doses of Lasix, total output 3 L net -2360 cc last 24 hours. Leg edema is improving but still present. She is not currently hypoxic however continues to be volume overloaded on exam with 2+ UOP and downtrending creatinine. Given her underlying preload dependent severe aortic stenosis do recommend optimization with IV diuresis under inpatient evaluation would benefit from continuing this today. She is also concurrently minimally hypokalemic with a high potassium intake [employer]. Diuresis should help with this, due to persistent hyperkalemia x 2 1 dose of Lokelma was ordered today Ambulatory dysfunction PT/OT pending. Chronic pain Home medications continued Stable at baseline 09/21. Some cramping transiently which may have been due to electrolyte changes CKD 3 Baseline creatinine approximately 1.371.7 Admitting creatinine at baseline Slight hyperkalemia. Volume overloaded. Diuresing as noted. 1 dose of Lokelma given Monitor for risk of contrast nephropathy following CTAPE study. GERD No acute symptoms Acute OHS/suspected sleep apnea Does not use CPAP at home Past elevated risk by STOP-BANG screening for LILY Recommend following up as outpatient for formal sleep study. Recommend outpatient sleep study, bicarb 33 suggestive of chronic compensated respiratory acidosis. DVT prophylaxis: Heparin subcu CODE STATUS: DNR/DNI (2) CHF (congestive heart failure): (3) Hypertension: (4) Atrial flutter, paroxysmal: (5) GERD (gastroesophageal reflux disease): (6) A-fib: Admission and Anticipated Discharge Date Admission Date: September 19, 2024 Subjective Seen at the bedside. Feels tired, having some muscle cramps in the legs today. Pain on the anterior left lower leg has improved fortunately. No shortness of breath at rest, reports she does get a little short of breath when moving around in the bed. She feels her legs are still swollen, but much better than they were previously. No lightheadedness/dizziness Physical Exam Physical Exam: General: Somnolent, but arouses and answers questions appropriately. A&Ox3. NAD. Cooperative. HEENT: Atraumatic, normocephalic. Vision and hearing grossly intact Pulm: Diminished, bibasilar crackles persist. Clear somewhat on deep breathing. Symmetrical chest rise. No increased work of breathing. No respiratory distress. Cardiac: RRR, stock murmur present. Radial pulses intact and symmetrical. Abdominal: Nontender, nondistended, soft. BS present. Extremities: Left lower extremity with nearly completely resolved erythema/cellulitis. Moderate pitting edema bilaterally persists but improved from prior Results & Data Results & Data Vital Signs (Past 12 Hours) Vital Signs Temp Pulse Pulse Resp BP BP Pulse Ox 09/21/24 11:40 36.5 C 86 18 120/70 95 09/21/24 07:43 36.4 C L 88 18 123/70 94 09/21/24 07:38 09/21/24 05:41 69 09/21/24 03:24 36.2 C L 81 16 125/72 94 O2 Del Method O2 Flow Rate 09/21/24 11:40 Room Air 09/21/24 07:43 Nasal Cannula 2 09/21/24 07:38 Room Air 09/21/24 05:41 09/21/24 03:24 Nasal Cannula 2 PG Care Time/CCT Total # of Minutes Spent Total Time Spent with Patient: Total time spent is greater than 50% in coordination of care (as documented) at patient's floor/unit and/or counseling patient: Coding Level of Care Code 43204 SUB INP/OBS CARE 3/50MIN Diagnoses Cellulitis of lower leg L03.119 CHF (congestive heart failure) I50.9 Hypertension I10 Hypertension type: unspecified Atrial flutter, paroxysmal I48.92 GERD (gastroesophageal reflux disease) K21.9 A-fib I48.91 (3) Hypertension Hypertension type: unspecified Qualified Code(s): I10 - Essential (primary) hypertension
--- NOTE | 2024-09-21 19:21 | Communication Note ---
Date of Service: September 21, 2024 Pt with sharp chest pain after ambulating. Pain is reproducible on palpation. Suspect MSK. EKG obtained, no acute changes and no territorial ST/T wave verdin ges. Trop ordered, d/w nurse and overnight team aware. Low suspicion for ACS. Will trial home pain meds and voltarin added.
[2024-09-22 07:28] LABS: Hematocrit (blood only) 30.5 % (37.0-47.0); Hemoglobin 8.6 g/dl (12.0-16.0); Immature Granulocytes # (auto) 0.02 K/uL (0.01-0.20); Immature Granulocytes % (auto) 0.4 %; Mean Corpuscular Hemoglobin 25.3 pg (25.0-34.0); Mean Corpuscular Volume 89.7 fL (80.0-100.0); Platelet Count 124 K/uL (130-400); RDW Standard Deviation 60.2 fL (36.4-46.3); Red Blood Count 3.40 M/uL (4.20-5.40); White Blood Count 5.33 K/ul (4.8-10.8)
--- NOTE | 2024-09-22 07:29 | Communication Note ---
Date of Service: September 22, 2024 Caroline Paulino requires a home semi-electric hospital bed due to diagnosis of CHF and arthritis. As a result of these medical conditions she requires positioning of body in ways that are not feasible with a standard bed, and head of bed is to be elevated greater than 30 degrees most of the time due to congestive heart failure. Additionally she requires frequent changes in body position.
[2024-09-22 07:44] LABS: Anion Gap 5.0 (3-11); Blood Urea Nitrogen 57.0 mg/dl (6-23); Calcium 8.9 mg/dl (8.6-10.3); Carbon Dioxide 33.0 mmol/L (21-32); Chloride 100.0 mmol/L (98-107); Creatinine Clr Calc Pharmacy 45.3 ml/min; Glucose 84.0 mg/dl (70-99(Fasting)); Magnesium 1.9 mg/dl (1.7-2.4); Potassium 5.3 mmol/L (3.5-5.1); Sodium 138.0 mmol/L (136-145)
[2024-09-22] MEDS: SODIUM ZIRCONIUM CYCLOSILICATE 10 GM PACKET PO ONE (11:54)
--- NOTE | 2024-09-22 12:09 | Hospitalist Progress Note ---
Date of Service September 22, 2024 Assessment & Plan (1) Cellulitis of lower leg: Plan: Left lower extremity cellulitis, resolving Venous duplex negative Elevated D-dimer. Risk/benefits of contrast nephropathy versus missed VTE given history of DVT was discussed on admission. CTA subsequently obtained. No PE, CHF/pulmonary edema noted Procalcitonin negative, no leukocytosis Cellulitis clinically resolved Clinically improved on Rocephin. +BC, GPC 09/22 at 9 AM (approximately 72-hour interval) her BC from 09/19 1/ bottle growing gram-positive cocci clusters preliminary result. Given that this is ~72 hours and / bottle may represent contaminant however patient has had a wound infection with Staph aureus, oxacillin sensitive which would be clinically consistent with her bacteremia and she has a history of underlying valvular disease and watchman surveillance cultures and expansion of ABX while pending speciation is indicated - Surveillance cultures ordered Screening echo ordered Daptomycin resume pending speciation and follow-up results Weakness/deconditioning Patient easily fatigued, had difficulty 09/22 standing from toilet. Is interested in rehab if this will help her get stronger PT/OT pending Acute on chronic HFpEF, severe History of CAD dyspnea on exertion 07/09/2024: Trivial PFO. Echo 04/2024: EF 55-60%. Severe . Mild AR, mild TR, PASP 50. Mild concentric LVH Heart failure with with significant valvular component, preserved ejection fraction. Chest x-ray is overtly volume overloaded lower extremities are with pitting edema bilaterally. Fatigued today, contracted BUN ratio, and slight contraction creatinine. Suspect she is near dry weight, perhaps slightly contracted this. Lasix switched to p.o. She is normotensive on reassessment Ambulatory dysfunction PT/OT pending. Chronic pain Home medications continued CKD 3 Baseline creatinine approximately 1.371.7 Admitting creatinine at baseline. Creatinine 1.77 on 09/22, slight uptrend from 1.66 to prior. Suspect at near euvolemic status Slight hyperkalemia. Volume overloaded. Diuresing as noted. Additional dose of Lokelma given, continue to trend No evidence of post CTA contrast nephropathy GERD No acute symptoms Acute OHS/suspected sleep apnea Does not use CPAP at home Past elevated risk by STOP-BANG screening for LILY Recommend following up as outpatient for formal sleep study. Recommend outpatient sleep study, bicarb 33 suggestive of chronic compensated respiratory acidosis. DVT prophylaxis: Heparin subcu CODE STATUS: DNR/DNI (2) CHF (congestive heart failure): (3) Hypertension: (4) Atrial flutter, paroxysmal: (5) GERD (gastroesophageal reflux disease): (6) A-fib: Admission and Anticipated Discharge Date Admission Date: September 19, 2024 Subjective Seen the bedside. Feels tired today. Feels her swelling has improved. No fevers chills or sweats. No cough. No chest pain this morning at rest. She had trouble standing up from the toilet this morning and acknowledges she was much weaker than she thought. She reports her goal is "I does want to get better, go to rehab if needed to get stronger so I can go home ". Reviewed positive blood cultures with her at the bedside. No other questions or concerns Physical Exam 2 Physical Exam: General: Somnolent, but arouses and answers questions appropriately. A&Ox3. NAD. Cooperative. HEENT: Atraumatic, normocephalic. Vision and hearing grossly intact Pulm: Diminished, bibasilar crackles persist. Clear somewhat on deep breathing. Symmetrical chest rise. No increased work of breathing. No respiratory distress. Cardiac: RRR, +soft sm. Abd: ND, soft. BS present. Extremities: Left lower extremity with nearly completely resolved erythema/cellulitis.. Pitting edema has improved Results & Data Results & Data Vital Signs (Past 12 Hours) Vital Signs Temp Pulse Resp BP BP Pulse Ox O2 Del Method 09/22/24 11:34 36.5 C 69 18 137/71 92 Room Air 09/22/24 07:58 36.4 C L 94 H 18 117/70 94 Room Air 09/22/24 07:45 Room Air 09/22/24 04:39 36.5 C 72 20 118/74 93 Room Air PG Care Time/CCT Total # of Minutes Spent Total Time Spent with Patient: Total time spent is greater than 50% in coordination of care (as documented) at patient's floor/unit and/or counseling patient: Coding Level of Care Code 46133 SUB INP/OBS CARE 3/50MIN Diagnoses Cellulitis of lower leg L03.119 CHF (congestive heart failure) I50.9 Hypertension I10 Hypertension type: unspecified Atrial flutter, paroxysmal I48.92 GERD (gastroesophageal reflux disease) K21.9 A-fib I48.91 (3) Hypertension Hypertension type: unspecified Qualified Code(s): I10 - Essential (primary) hypertension
--- NOTE | 2024-09-22 12:11 | Electrocardiogram Report ---
Test Reason : Blood Pressure : */* mmHG Vent. Rate : 92 BPM Atrial Rate : 92 BPM P-R Int : 146 ms QRS Dur : 76 ms QT Int : 340 ms P-R-T Axes : 44 -11 26 degrees QTcB Int : 420 ms Poor data quality, interpretation may be adversely affected Normal sinus rhythm Normal ECG When compared with ECG of 19-Sep-2024 15:44, No significant change was found Confirmed by Reinaldo Bermeo ([id number]) on 09/22/2024 12:10:54 PM Referred By: REFERRED SELF Confirmed By: Reinaldo Bermeo
[2024-09-22] MEDS: DAPTOmycin 700 MG in SYRINGE 0 ML IV SCH (14:28)
--- NOTE | 2024-09-22 17:29 | XCELERA ---
[id number]
[2024-09-23 07:25] LABS: Anion Gap 5.0 (3-11); Blood Urea Nitrogen 58.0 mg/dl (6-23); Calcium 9.4 mg/dl (8.6-10.3); Carbon Dioxide 33.0 mmol/L (21-32); Chloride 99.0 mmol/L (98-107); Creatinine Clr Calc Pharmacy 40.3 ml/min; Glucose 87.0 mg/dl (70-99(Fasting)); Hematocrit (blood only) 30.9 % (37.0-47.0); Hemoglobin 9.1 g/dl (12.0-16.0); Immature Granulocytes # (auto) 0.02 K/uL (0.01-0.20); Immature Granulocytes % (auto) 0.3 %; Magnesium 1.9 mg/dl (1.7-2.4); Mean Corpuscular Hemoglobin 25.3 pg (25.0-34.0); Mean Corpuscular Volume 86.1 fL (80.0-100.0); Platelet Count 133 K/uL (130-400); Potassium 4.9 mmol/L (3.5-5.1); RDW Standard Deviation 57.7 fL (36.4-46.3); Red Blood Count 3.59 M/uL (4.20-5.40); Sodium 137.0 mmol/L (136-145); White Blood Count 5.88 K/ul (4.8-10.8)
[2024-09-23] MEDS: DICLOFENAC SOD 1% GEL 100 GM TUBE EXT PRN (08:46)
[2024-09-23] MEDS ORDERED: FUROSEMIDE 20 MG TAB PO SCH (09:00)
--- NOTE | 2024-09-23 09:52 | XRay Report ---
EXAM: XR chest 1V portable CLINICAL HISTORY: CHF TECHNIQUE: An X-ray image of the chest is obtained in AP projection. COMPARISON: Prior studies 09/19/2024 FINDINGS: Pulmonary Parenchyma: Bilateral hilar and basal reticular and subtle ground glass opacities. No evidence of consolidation, collapse. No pulmonary nodules are identified. No evidence of pleural effusion or pleural thickening. Heart and Mediastinum: Cardiomegaly, no mediastinal widening or masses. No hilar or mediastinal lymphadenopathy. Bony Thorax: Spondylodegenerative changes. Bony thorax appears intact without fractures or deformities. Soft Tissues: Soft tissues overlying the chest wall are unremarkable. IMPRESSION: 1. Compared to prior studies dated 09/19/2024 2. Bilateral hilar and basal reticular and subtle ground glass opacities, likely pulmonary congestion (unchanged) 3. Cardiomegaly 4. Interval: no significant changes. Electronically signed by Donald Alberts 09-23-2024 09:51 AM
--- NOTE | 2024-09-23 10:50 | Hospitalist Progress Note ---
Date of Service September 23, 2024 Assessment & Plan (1) Cellulitis of lower leg: Plan: MSSA and Streptococcus isolated. Both should be sensitive to Rocephin which continues. Daptomycin has been discontinued. She will be switched to an oral antibiotic at discharge. (2) CHF (congestive heart failure): Plan: Acute on chronic diastolic CHF present on admission has now resolved. Chest x- ray done today, September 23, looks better. Continue current medical management. Monitor intake and output (3) Hypertension: Plan: Stable. Continue current medical management (4) A-fib: Plan: Paroxysmal atrial fibsflutter per history. Currently in normal sinus rhythm. (5) Chronic kidney disease, stage III (moderate): Plan: Stable. Monitor intake and output. Serial labs Plan OT and PT evaluations currently recommend rehab placement. She is medically stable for discharge. She will be switched to an oral antibiotic at the time of discharge. Admission and Anticipated Discharge Date Admission Date: September 19, 2024 Subjective Alert and oriented. No distress. Chest x-ray done today, September 23, looks better with resolution of the mild pulmonary edema. Left leg cultures grew MSSA and Streptococcus, both should be sensitive to Rocephin. Daptomycin has been discontinued. PT and OT both recommend rehab or SNF placement. Bilateral lower extremity venous Doppler studies done earlier this admission are negative for DVT. She is medically stable for discharge once SNF arrangements are finalized Review of Systems 2 Review of Systems: Constitutionalno fever or chills ENTno blurred vision, no double vision, no epistaxis, no sore throat Respiratoryno cough, no wheezing, no shortness of breath Cardiacno palpitations, no chest pain, no syncope Oscar nausea, vomiting, diarrhea, melena, hematochezia GUno urinary retention, no urinary incontinence, no dysuria, no hematuria Musculoskeletalno joint pain, no muscle tenderness Skinno bruising, no rashes, no pruritus Neurono isolated weakness, no paresthesia, no weakness Psychno depression, no anxiety Physical Exam 2 Physical Exam: General-alert and oriented x3, no fever, no chills HEENT-head atraumatic and normocephalic, pupils equal and reactive to light, extraocular muscles intact Neck-no lymphadenopathy or thyromegaly, trachea midline Chest-clear to auscultation. No rales, wheezing or rhonchi Cardiac-regular rate and rhythm, normal S1 and S2 Abdomen-normal bowel sounds, no hepatosplenomegaly Extremities-no cyanosis, clubbing, or edema Neuro-cranial nerves II through XII intact, motor and sensory function within normal limits, strength symmetrical, no focal deficits Psych-normal affect, normal mood Results & Data Results & Data Vital Signs (Past 12 Hours) Vital Signs Temp Pulse Pulse Resp BP Pulse Ox O2 Del Method 09/23/24 08:35 36.4 C L 70 18 167/89 H 94 Room Air 09/23/24 07:00 66 09/23/24 02:35 36.5 C 64 16 129/78 94 Room Air 09/22/24 23:45 36.2 C L 66 16 142/82 H 91 Room Air Laboratory Results 09/23/24 06:03 09/23/24 06:03 PG Care Time/CCT Total # of Minutes Spent Total Time Spent with Patient: Total time spent is greater than 50% in coordination of care (as documented) at patient's floor/unit and/or counseling patient: Coding Level of Care Code 50437 SUB INP/OBS CARE 3/50MIN Diagnoses Cellulitis of lower leg L03.119 CHF (congestive heart failure) I50.9 Hypertension I10 Hypertension type: unspecified A-fib I48.91 Chronic kidney disease, stage III (moderate) N18.30 (3) Hypertension Hypertension type: unspecified Qualified Code(s): I10 - Essential (primary) hypertension
[2024-09-23] MEDS: HEPARIN SOD 5,000 UNIT/0.5 ML VIAL SQ SCH (14:52)
--- NOTE | 2024-09-23 15:27 | Infectious Disease Consult ---
Date of Consultation September 23, 2024 Assessment & Plan (1) Cellulitis of lower leg: (2) Positive blood culture: Plan ID Problem List: # 09/19 BCx + Micrococcus luteus in 1/2 sets, c/w contaminant # LLE SSTI, wound Cx + MSSA and group B Strep # Paroxysmal atrial flutter s/p Watchman device # Bullous pemphigoid on Dupixent Impression: Caroline Paulino is a 69-year-old woman with a history of CHF EF 55%, nonocclusive CAD, severe /mild AR/mild TR, paroxysmal AFlutter s/p Watchman device, history of PE, IBS, bullous pemphigoid on Dupixent, history of R knee replacement, chronic back pain on oxycodone, psoriasis, chronic venous insufficiency s/p left VenaSealGSV, CKD3, CVA aborted via thrombolysis 06/2024, who presents to [facility] [address] on 09/19/24 with for L leg pain and swelling, found to have LLE SSTI. BCx from 09/19 also positive for Micrococcus luteus in 1/4 bottles. ID is consulted for evaluation of Micrococcus luteus bacteremia and LLE SSTI. The patient did have a traumatic wound of her LLE 10/2023, and reports ongoing LLE wounds for which she has followed with wound care. Prior wound Cx from the LLE (including 02/2024, 04/2024, 05/2024) have grown MSSA. This admission, she presented with L leg pain and swelling. Upon presentation, afebrile, WBC 5.98. LLE venous duplex negative. She was started on daptomycin. There was a distal LLE perez blister that had unroofed and drained a scant amount of serosanguineous drainage; no crusting or purulence noted. Wound Cx from 09/19 were taken which grew MSSA and group B Strep. The patients antibiotics were changed to ceftriaxone. 09/20 foot X-ray without fractures or bony abnormalities. BCx from 09/19 grew Micrococcus luteus in 1/4 bottles (delayed growth, only reported to be positive on 09/22). Repeat BCx from 09/22 are pending. 09/22/24 TTE: no e/o mass or vegetation; calcified/thickened AV with reduced opening, trace AR; mild TR; without good visualization of PV or TV At the time of evaluation, the patient reports feeling much better. The erythema and swelling have nearly significantly resolved. She is on Dupixent for bullous pemphigoid, which she reports is well-controlled. The patient has a Watchman device for aflutter and a history of R knee replacement. Denies any joint pain. Has chronic back pain that is at baseline. Discussion The patient presented with LLE cellulitis that has improved on daptomycin -> ceftriaxone. Wound Cx of a superficial blister grew MSSA and GBS. She has remained afebrile with normal WBC count. The patient had BCx from 09/19 that took ~72 hours to return positive. They grew Micrococcus luteus in only 1/4 bottles. This is a common contaminant organism. Furthermore, it is not the same organism isolated from her wound Cx.. The patient does have a Watchman device and R knee replacement hardware. 09/22/24 TTE: no e/o mass or vegetation; calcified/thickened AV with reduced opening, trace AR; mild TR; without good visualization of PV or TV Would follow repeat BCx from 09/22 to confirm clearance. Overall, the Micrococcus is most consistent with contamination. Can change to cefadroxil to continue to treat the MSSA and GBS for her LLE cellulitis. Favor higher dosing, noting pts weight of 139 kg (BMI 51). Also note the pts recurrent LLE wounds over the past year, with repeated wound Cx + MSSA. It may be reasonable to attempt a round of Staph decolonization (suggested protocol below)> Recommendations: - Can change to cefadroxil 1000 mg PO BID to complete a 7-day course for treatment for LLE SSTI (through 09/26/24) - Note multiple LLE wound Cx + MSSA. After completion of abx treatment as above, would recommend Staph decolonization (see below for suggested protocol) - F/u repeat BCx from 09/22 until finalized to ensure clearance - Ensure close f/u with PCP Staph decolonization protocol Perform decolonization of all household members simultaneously. (1) Nasal decolonization: mupirocin ointment (2%) - Apply twice a day to each nostril (each household member should have a separate one) for 5 days (2) Topical body decolonization: chlorhexidine gluconate (Hibiclens) (2% or 4% solution) washes - Wet body. Turn off water and put Hibiclens all over body from the neck down, with special attention to underarms and groin. Wait 3-5 minutes, then wash off Hibiclens. Do this daily for 5 days. - Bathroom: Daily Clorox bleach to shower/bathroom. - Gym: Ok to go to gym, but wash off equipment before and after use. Do not stay in sweaty clothes; immediately shower after exercise. Do not re-wear sweaty clothes. - Laundry: Wash towels/washcloths/sheets/underwear/sweaty clothes after each use in hot water and color-safe bleach. Do not share towels or washcloths. - Personal hygiene products: Throw out deodorant and razors now. Avoid loofahs. Only use razors for 1 week at a time. If you develop cellulitis (skin infection), get rid of deodorant and razors again. Plan discussed with primary team. Thank you for letting ID participate in the care of this patient. ID will sign off at this time. If questions, please contact the [facility] at [phone]. Cindy Lopez MD, S Infectious Diseases [facility] Connect direct line: [phone] Consultation Information Consultation was provided via telemedicine using two-way real-time interactive telecommunication between the patient and the telemedicine provider. For the duration of the visit, the provider was performing the assessment from a different facility than the patient. This includesuse of bluetooth stethoscope forauscultationperformed by the telepresenter that the telemedicine provider can hear if described in the physical exam. Pipe Organ Installer contact information: Please call [facility] Call Center [phone]. (Phone Number For Physician Use Only) After establishing a telemedicine visit, patient was: Patient was verified with two unique identifiers, Patient/authorized rep acknowledged consent and understanding and Gave permission to continue telehealth session Time Spent with Patient: Initial => 75 min History of Present Illness Reason for Consultation: Micrococcus luteus bacteremia and LLE SSTI. Attending Physician: Benjamin Aldana MD History of Present Illness Caroline Paulino is a 69-year-old woman with a history of CHF EF 55%, nonocclusive CAD, severe /mild AR/mild TR, paroxysmal AFlutter s/p Watchman device, history of PE, IBS, bullous pemphigoid on Dupixent, history of R knee replacement, chronic back pain on oxycodone, psoriasis, chronic venous insufficiency s/p left VenaSealGSV, CKD3, CVA aborted via thrombolysis 06/2024, who presents to [facility] [address] on 09/19/24 with for L leg pain and swelling, found to have LLE SSTI. BCx from 09/19 also positive for Micrococcus luteus in 1/4 bottles. ID is consulted for evaluation of Micrococcus luteus bacteremia and LLE SSTI. The patient did have a traumatic wound of her LLE 10/2023, and reports ongoing LLE wounds for which she has followed with wound care. Prior wound Cx from the LLE (including 02/2024, 04/2024, 05/2024) have grown MSSA. This admission, she presented with L leg pain and swelling. Upon presentation, afebrile, WBC 5.98. LLE venous duplex negative. She was started on daptomycin. There was a distal LLE perez blister that had unroofed and drained a scant amount of serosanguineous drainage; no crusting or purulence noted. Wound Cx from 09/19 were taken which grew MSSA and group B Strep. The patients antibiotics were changed to ceftriaxone. 09/20 foot X-ray without fractures or bony abnormalities. BCx from 09/19 grew Micrococcus luteus in 1/4 bottles (delayed growth, only reported to be positive on 09/22). Repeat BCx from 09/22 are pending. 09/22/24 TTE: no e/o mass or vegetation; calcified/thickened AV with reduced opening, trace AR; mild TR; without good visualization of PV or TV At the time of evaluation, the patient reports feeling much better. The erythema and swelling have nearly significantly resolved. She is on Dupixent for bullous pemphigoid, which she reports is well-controlled. The patient has a Watchman device for aflutter and a history of R knee replacement. Denies any joint pain. Has chronic back pain that is at baseline. Allergies Allergy/AdvReac Type Severity Reaction Status Date / Time egg AdvReac Intermediate GI upset Verified 09/18/24 23:29 ibuprofen AdvReac Intermediate stomach Verified 09/18/24 23:29 irritation morphine AdvReac Intermediate LEGS SWELL Verified 09/18/24 23:29 Home Medications Medication Instructions Recorded Confirmed Type dupilumab 300 mg/2 mL subcutaneous 300 mg subcut Q14D 09/14/23 09/19/24 History pen injector (Dupixent) ascorbic acid (vitamin C) 250 mg 250 mg PO QAM #30 tabs 11/03/23 09/19/24 Rx tablet betamethasone dipropionate 0.05 % 1 applic topical BID PRN RASH 11/03/23 09/19/24 Rx topical ointment FACE/TRUNK/ARMS #15 grams calcipotriene 0.005 % topical cream 1 applic topical DAILY PRN flare 11/03/23 09/19/24 Rx up #60 grams cholecalciferol (vitamin D3) 25 1,000 unit PO QAM #30 tabs 11/03/23 09/19/24 Rx mcg (1,000 unit) tablet (Vitamin D3) clotrimazole 1 % topical cream 1 applic topical BID PRN Itching 11/03/23 09/19/24 Rx #45 grams cyanocobalamin (vitamin B-12) 1,000 mcg PO QAM #30 tabs 11/03/23 09/19/24 Rx 1,000 mcg tablet (Vitamin B-12) docusate sodium 100 mg capsule 100 mg PO BID #60 caps 11/03/23 09/19/24 Rx (Colace) doxepin 25 mg capsule 25 mg PO HS #30 caps 11/03/23 09/19/24 Rx fish, borage, flaxseed oils-omega 1 cap PO QAM #30 caps 11/03/23 09/19/24 Rx 3,6,9 comb no.1 1,200 mg capsule (Badger 3-6-9) folic acid 800 mcg tablet 0.8 mg PO QAM #30 tabs 11/03/23 09/19/24 Rx memantine 10 mg tablet 10 mg PO BID #60 tabs 11/03/23 09/19/24 Rx metoprolol succinate 25 mg 12.5 mg (1/2 x 25 mg) PO BID #30 11/03/23 09/19/24 Rx tablet,extended release 24 hr tabs tacrolimus 0.1 % topical ointment 1 applic topical BID PRN itching 11/03/23 09/19/24 Rx #30 grams pantoprazole 40 mg tablet,delayed 40 mg PO QAM #30 tabs 06/21/24 09/19/24 Rx release oxycodone 5 mg tablet 5 mg PO Q6H PRN pain level 6-10 on 08/15/24 09/19/24 Rx a 1-10 scale #10 tabs clobetasol 0.05 % topical cream 1 applic topical BID bullous 09/11/24 09/19/24 Rx pemphigoid and psoriasis #60 grams triamcinolone acetonide 0.025 % 1 applic topical BID PRN psoriasis 09/11/24 09/19/24 Rx topical ointment #15 grams duloxetine 60 mg capsule,delayed 120 mg PO QAM 09/18/24 09/19/24 History release aspirin 81 mg chewable tablet 81 mg PO QAM 09/19/24 09/19/24 History (Aspirin Childrens) atorvastatin 80 mg tablet 80 mg PO QAM 09/19/24 09/19/24 History cephalexin 500 mg tablet 500 mg PO TID 7 days #21 tabs 09/19/24 09/19/24 Rx clopidogrel 75 mg tablet 75 mg PO QAM 09/19/24 09/19/24 History cyclosporine 0.05 % eye drops in a 1 drp OPB .EVERY 12 HOURS 09/19/24 09/19/24 H istory dropperette furosemide 20 mg tablet 20 mg PO 3XWK 09/19/24 09/19/24 History pregabalin 100 mg capsule 100 mg PO TID 09/19/24 09/19/24 History sodium chloride 0.65 % nasal spray 2 spray NA Q6H PRN NASAL DRYNESS 09/19/24 09/19/24 History aerosol (Saline Mist) sumatriptan succinate 25 mg tablet 525 mg PO DIRECTED PRN Migraine 09/19/24 09/19/24 History Headache sodium zirconium cyclosilicate 5 10 g PO MOWEFR 3 doses #3 ea 09/22/24 Rx gram oral powder packet (Lokelma) Patient History Medical History Skin tear of elbow without complication Nose septum perforation Chronic low back pain Sacroiliitis IBS (irritable bowel syndrome) Borderline diabetes mellitus A-fib "i think i have a-fib." -- on eliquis -- follows with Dr. Torres History of TIA (transient ischemic attack) 2016 Cardiac murmur History of skin cancer History of COVID-19 02/2020; generalized weakness, diarrhea, sob, fever, body aches; hospitalized x 1 week; c/o ongoing brain fog since having covid Verbalizes suicidal thoughts COVID-19 Nocturia Acute urinary retention Back pain Renal failure Morbid obesity BMI 50.5 Carotid artery stenosis "mild" Aortic stenosis Mild (per cardiology review) aortic stenosis with possible bicuspid aortic valve (MG 19mmhg, NIKKIE 3.0) per 05/2018 ECHO Anemia Osteoporosis GERD (gastroesophageal reflux disease) controlled Chronic back pain High cholesterol Hx of falling last fall 09/2018- per patient, related to LBP/balance issues- ? r/t ambulatory dysfunction- improved with cane/walker use Surgical History History of right cataract extraction S/P epidural steroid injection History of appendectomy History of cardiac cath 2017= NO STENTS History of right knee joint replacement History of back surgery Hx of laparoscopy History of kyphoplasty Family History Father Stroke Slow to wake up after anesthesia Myocardial infarction, Onset Age: 40 Mother Stroke Myocardial infarction, Onset Age: 60 Sister Myocardial infarction, Onset Age: 60 Social History Smoking Status: Former smoker Tobacco Type: Declines Cigarettes Per Day: quit 40 yrs ago; Smoking End Date: 40 years ago; Second Hand Exposure: Yes; Tobacco Cessation Education Requested by Patient: No Hx Alcohol Use: No Hx Substance Use: No Preferred Language: Polish Communication Ability: Effective Visual Impairment: No Limitations Hearing Ability: Normal Cashier And Waiter/Waitress Required: No Beliefs That Will Affect Care: None marital status: Single Current Living Situation: Family Current Living Situation Comment: lives w/ sister Colleen current occupational status: unemployed and disabled Other Information That Helps Us Care for You: No Feels Safe at Home: Yes Safety Concerns: Feels Safe At This Time Diet: regular caffeine: Yes Assistive Devices: Hospital Bed, Oxygen - Continuous and Walker Physical Exam Physical Exam: Exam obtained with assistance of an in-person telepresenter General: Well-appearing, no acute distress HEENT: Conjunctivae non-injected, sclerae anicteric, MMM, OP clear. Resp: Respirations nonlabored. Ext: LLE with few patches of light erythema, shallow blister on perez without any purulence (pt reports this is significantly improved in both pain and swelling compared with admission). R perez very shallow wound and R 2nd digit ulcer Skin: As above; no other rashes or lesions. Neuro: Alert & interactive. Grossly non-focal. Psych: Pleasant, appropriate. Results & Data Vital Signs (Past 12 Hours) Vital Signs Temp Pulse Pulse Resp BP Pulse Ox O2 Del Method 09/23/24 11:16 36.4 C L 71 18 158/78 H 95 Room Air 09/23/24 08:35 36.4 C L 70 18 167/89 H 94 Room Air 09/23/24 07:00 66 Diagnostic Findings Diagnostics: 09/22/24 TTE: no e/o mass or vegetation; calcified/thickened AV with reduced opening, trace AR; mild TR; without good visualization of PV or TV 09/19 CTA chest 1. No definite sign of pulmonary embolism 2. Mild pulmonary edema 3. Right adrenal adenoma Micro Data: 09/22 BCx x2: PEND 09/19 L leg wound Cx: MSSA (S-Bactrim/tetra), group B Strep (S-penicillin/amp) 09/19 BCx x2: Micrococcus luteus in 1/2 sets (1/4 bottles) prior 05/29/24 L leg wound Cx: MSSA 04/24/24 L leg wound Cx: MSSA 03/15/24 L leg wound Cx: MSSA Antibiotic Summary: ceftriaxone (09/19 present) daptomycin (09/19, 09/22)
[2024-09-23] MEDS: POLYETHYLENE (MIRALAX) 17 GM PACK PO SCH (15:52)
[2024-09-24] MEDS: FUROSEMIDE 20 MG TAB PO SCH (08:25)
[2024-09-24 08:45] LABS: Hematocrit (blood only) 31.8 % (37.0-47.0); Hemoglobin 9.6 g/dl (12.0-16.0); Immature Granulocytes # (auto) 0.01 K/uL (0.01-0.20); Immature Granulocytes % (auto) 0.2 %; Mean Corpuscular Hemoglobin 25.7 pg (25.0-34.0); Mean Corpuscular Volume 85.0 fL (80.0-100.0); Platelet Count 130 K/uL (130-400); RDW Standard Deviation 58.4 fL (36.4-46.3); Red Blood Count 3.74 M/uL (4.20-5.40); White Blood Count 5.61 K/ul (4.8-10.8)
[2024-09-24 09:01] LABS: Anion Gap 5.0 (3-11); Blood Urea Nitrogen 52.0 mg/dl (6-23); Calcium 9.7 mg/dl (8.6-10.3); Carbon Dioxide 33.0 mmol/L (21-32); Chloride 100.0 mmol/L (98-107); Creatinine Clr Calc Pharmacy 45.6 ml/min; Glucose 86.0 mg/dl (70-99(Fasting)); Potassium 5.4 mmol/L (3.5-5.1); Sodium 138.0 mmol/L (136-145)
--- NOTE | 2024-09-24 12:33 | Hospitalist Progress Note ---
Date of Service September 24, 2024 Assessment & Plan (1) Cellulitis of lower leg: Plan: MSSA and Streptococcus isolated. Infectious disease consultation appreciated. She is now on cefadroxil through September 26. (2) CHF (congestive heart failure): Plan: Acute on chronic diastolic CHF present on admission has now resolved. Chest x- ray done on September 23 looked better. Continue current medical management. Monitor intake and output (3) Hypertension: Plan: Stable. Continue current medical management (4) A-fib: Plan: Paroxysmal atrial fibsflutter per history. Currently in normal sinus rhythm. (5) Chronic kidney disease, stage III (moderate): Plan: Stable. Monitor intake and output. Serial labs Plan OT and PT evaluations currently recommend rehab placement. She is medically stable for discharge. Admission and Anticipated Discharge Date Admission Date: September 19, 2024 Subjective Alert and oriented. No new problems. Infectious disease consultation noted. Positive blood culture earlier this admission appears to be a contaminant. Rocephin has been switched to oral cefadroxil for the MSSA and strep isolated in her leg wound. This will continue through September 26. She is medically stable for discharge to either SNF or [facility] when insurance approval is obtained Review of Systems 2 Review of Systems: Constitutionalno fever or chills ENTno blurred vision, no double vision, no epistaxis, no sore throat Respiratoryno cough, no wheezing, no shortness of breath Cardiacno palpitations, no chest pain, no syncope Oscar nausea, vomiting, diarrhea, melena, hematochezia GUno urinary retention, no urinary incontinence, no dysuria, no hematuria Musculoskeletalno joint pain, no muscle tenderness Skinno bruising, no rashes, no pruritus Neurono isolated weakness, no paresthesia, no weakness Psychno depression, no anxiety Physical Exam 2 Physical Exam: General-alert and oriented x3, no fever, no chills HEENT-head atraumatic and normocephalic, pupils equal and reactive to light, extraocular muscles intact Neck-no lymphadenopathy or thyromegaly, trachea midline Chest-clear to auscultation. No rales, wheezing or rhonchi Cardiac-regular rate and rhythm, normal S1 and S2 Abdomen-normal bowel sounds, no hepatosplenomegaly Extremities-no cyanosis, clubbing, or edema Neuro-cranial nerves II through XII intact, motor and sensory function within normal limits, strength symmetrical, no focal deficits Psych-normal affect, normal mood Results & Data Results & Data Vital Signs (Past 12 Hours) Vital Signs Temp Pulse Pulse Resp BP Pulse Ox O2 Del Method 09/24/24 11:12 36.3 C L 66 18 132/76 99 Room Air 09/24/24 08:19 36.3 C L 68 18 143/78 H 96 Room Air 09/24/24 07:00 67 09/24/24 02:41 36.5 C 66 16 145/72 H 98 Room Air Laboratory Results 09/24/24 08:13 09/24/24 08:13 PG Care Time/CCT Total # of Minutes Spent Total Time Spent with Patient: Total time spent is greater than 50% in coordination of care (as documented) at patient's floor/unit and/or counseling patient: Coding Level of Care Code 03497 SUB INP/OBS CARE 2/35MIN Diagnoses Cellulitis of lower leg L03.119 CHF (congestive heart failure) I50.9 Hypertension I10 Hypertension type: unspecified A-fib I48.91 Chronic kidney disease, stage III (moderate) N18.30 (3) Hypertension Hypertension type: unspecified Qualified Code(s): I10 - Essential (primary) hypertension
[2024-09-25 07:11] LABS: Hematocrit (blood only) 29.9 % (37.0-47.0); Hemoglobin 8.8 g/dl (12.0-16.0); Immature Granulocytes # (auto) 0.01 K/uL (0.01-0.20); Immature Granulocytes % (auto) 0.2 %; Mean Corpuscular Hemoglobin 25.5 pg (25.0-34.0); Mean Corpuscular Volume 86.7 fL (80.0-100.0); Platelet Count 125 K/uL (130-400); RDW Standard Deviation 60.7 fL (36.4-46.3); Red Blood Count 3.45 M/uL (4.20-5.40); White Blood Count 5.18 K/ul (4.8-10.8)
[2024-09-25 07:30] LABS: Anion Gap 5.0 (3-11); Blood Urea Nitrogen 61.0 mg/dl (6-23); Calcium 9.2 mg/dl (8.6-10.3); Carbon Dioxide 32.0 mmol/L (21-32); Chloride 102.0 mmol/L (98-107); Creatinine Clr Calc Pharmacy 35.7 ml/min; Glucose 86.0 mg/dl (70-99(Fasting)); Potassium 5.0 mmol/L (3.5-5.1); Sodium 139.0 mmol/L (136-145)
--- NOTE | 2024-09-25 11:07 | Electrocardiogram Report ---
Test Reason : Blood Pressure : */* mmHG Vent. Rate : 64 BPM Atrial Rate : 64 BPM P-R Int : 168 ms QRS Dur : 86 ms QT Int : 400 ms P-R-T Axes : 30 -12 26 degrees QTcB Int : 412 ms Normal sinus rhythm Normal ECG When compared with ECG of 21-Sep-2024 19:09, No significant change was found Confirmed by Reinaldo Bermeo ([id number]) on 09/25/2024 11:06:39 AM Referred By: REFERRED SELF Confirmed By: Reinaldo Bermeo
--- NOTE | 2024-09-25 14:41 | Hospitalist Progress Note ---
Date of Service September 25, 2024 Assessment & Plan (1) Cellulitis of lower leg: Plan: MSSA and Streptococcus isolated. Infectious disease consultation appreciated. She is now on po cefadroxil through September 26. (2) CHF (congestive heart failure): Plan: Acute on chronic diastolic CHF present on admission has now resolved. Chest x- ray done on September 23 looked better. Continue current medical management. Monitor intake and output (3) Hypertension: Plan: Stable. Continue current medical management (4) A-fib: Plan: Paroxysmal atrial fibsflutter per history. Currently in normal sinus rhythm. (5) Chronic kidney disease, stage III (moderate): Plan: Stable. Monitor intake and output. Serial labs (6) Atypical chest pain: Plan: Occurred earlier today, September 25. Chest pain has since resolved. No acute EKG changes at the time. Plan Insurance denied IPR placement. Case management is pursuing SNF placement. Hopefully this will occur this September 27 Admission and Anticipated Discharge Date Admission Date: September 19, 2024 Subjective Alert and oriented. No new problems. Insurance denied IPR placement. Case management pursuing SNF placement. The patient thought about simply going home but I talked with her and I think is best that she goes to SNF for a while. She is now in agreement. She had some atypical chest discomfort this morning but no acute EKG changes. Her symptoms have since resolved. She remains on cefadroxil through September 26 for the left lower extremity cellulitis which has improved since admission. Her diastolic CHF has resolved. Review of Systems 2 Review of Systems: Constitutionalno fever or chills ENTno blurred vision, no double vision, no epistaxis, no sore throat Respiratoryno cough, no wheezing, no shortness of breath Cardiacno palpitations, no chest pain, no syncope Oscar nausea, vomiting, diarrhea, melena, hematochezia GUno urinary retention, no urinary incontinence, no dysuria, no hematuria Musculoskeletalno joint pain, no muscle tenderness Skinno bruising, no rashes, no pruritus Neurono isolated weakness, no paresthesia, no weakness Psychno depression, no anxiety Physical Exam 2 Physical Exam: General-alert and oriented x3, no fever, no chills HEENT-head atraumatic and normocephalic, pupils equal and reactive to light, extraocular muscles intact Neck-no lymphadenopathy or thyromegaly, trachea midline Chest-clear to auscultation. No rales, wheezing or rhonchi Cardiac-regular rate and rhythm, normal S1 and S2 Abdomen-normal bowel sounds, no hepatosplenomegaly Extremities-no cyanosis, clubbing, or edema Neuro-cranial nerves II through XII intact, motor and sensory function within normal limits, strength symmetrical, no focal deficits Psych-normal affect, normal mood Results & Data Results & Data Vital Signs (Past 12 Hours) Vital Signs Temp Pulse Pulse Resp BP BP Pulse Ox 09/25/24 12:32 72 09/25/24 11:42 36.4 C L 63 20 109/66 92 09/25/24 08:01 36.3 C L 69 18 124/76 96 09/25/24 03:20 36.7 C 72 20 145/83 H 93 O2 Del Method 09/25/24 12:32 09/25/24 11:42 Room Air 09/25/24 08:01 Room Air 09/25/24 03:20 Room Air Laboratory Results 09/25/24 06:43 09/25/24 06:43 PG Care Time/CCT Total # of Minutes Spent Total Time Spent with Patient: Total time spent is greater than 50% in coordination of care (as documented) at patient's floor/unit and/or counseling patient: Coding Level of Care Code 82297 SUB INP/OBS CARE 3/50MIN Diagnoses Cellulitis of lower leg L03.119 CHF (congestive heart failure) I50.9 Hypertension I10 Hypertension type: unspecified A-fib I48.91 Chronic kidney disease, stage III (moderate) N18.30 Atypical chest pain R07.89 (3) Hypertension Hypertension type: unspecified Qualified Code(s): I10 - Essential (primary) hypertension
--- NOTE | 2024-09-26 11:49 | Hospitalist Progress Note ---
Date of Service September 26, 2024 Assessment & Plan (1) Cellulitis of lower leg: Plan: MSSA and Streptococcus isolated. Infectious disease consultation appreciated. She is now on po cefadroxil through September 26. (2) CHF (congestive heart failure): Plan: Acute on chronic diastolic CHF present on admission has now resolved. Chest x- ray done on September 23 looked better. Continue current medical management. Monitor intake and output (3) Hypertension: Plan: Stable. Continue current medical management (4) A-fib: Plan: Paroxysmal atrial fibflutter per history. Currently in normal sinus rhythm. (5) Chronic kidney disease, stage III (moderate): Plan: Stable. Monitor intake and output. Serial labs (6) Atypical chest pain: Plan: Occurred early on September 25. Chest pain has since resolved. No acute EKG changes at the time. Plan An[facility] tomorrowSeptember 27 Admission and Anticipated Discharge Date Admission Date: September 19, 2024 Subjective Stable overall. Afebrile. Cefadroxil will be discontinued after today's dosing. Anticipate discharge to [facility] tomorrow, September 27 Review of Systems 2 Review of Systems: Constitutionalno fever or chills ENTno blurred vision, no double vision, no epistaxis, no sore throat Respiratoryno cough, no wheezing, no shortness of breath Cardiacno palpitations, no chest pain, no syncope Oscar nausea, vomiting, diarrhea, melena, hematochezia GUno urinary retention, no urinary incontinence, no dysuria, no hematuria Musculoskeletalno joint pain, no muscle tenderness Skinno bruising, no rashes, no pruritus Neurono isolated weakness, no paresthesia, no weakness Psychno depression, no anxiety Physical Exam 2 Physical Exam: General-alert and oriented x3, no fever, no chills HEENT-head atraumatic and normocephalic, pupils equal and reactive to light, extraocular muscles intact Neck-no lymphadenopathy or thyromegaly, trachea midline Chest-clear to auscultation. No rales, wheezing or rhonchi Cardiac-regular rate and rhythm, normal S1 and S2 Abdomen-normal bowel sounds, no hepatosplenomegaly Extremities-no cyanosis, clubbing, or edema Neuro-cranial nerves II through XII intact, motor and sensory function within normal limits, strength symmetrical, no focal deficits Psych-normal affect, normal mood Results & Data Results & Data Vital Signs (Past 12 Hours) Vital Signs Temp Pulse Pulse Resp BP Pulse Ox O2 Del Method 09/26/24 11:26 36.4 C L 68 20 115/49 L 94 Room Air 09/26/24 09:00 Room Air 09/26/24 08:26 36.5 C 61 20 132/81 93 Room Air 09/26/24 07:23 61 09/26/24 03:45 36.5 C 64 18 120/67 95 Room Air 09/26/24 01:17 Room Air 09/26/24 01:17 61 Laboratory Results 09/25/24 06:43 09/25/24 06:43 PG Care Time/CCT Total # of Minutes Spent Total Time Spent with Patient: Total time spent is greater than 50% in coordination of care (as documented) at patient's floor/unit and/or counseling patient: Coding Level of Care Code 68638 SUB INP/OBS CARE 2/35MIN Diagnoses Cellulitis of lower leg L03.119 CHF (congestive heart failure) I50.9 Hypertension I10 Hypertension type: unspecified A-fib I48.91 Chronic kidney disease, stage III (moderate) N18.30 Atypical chest pain R07.89 (3) Hypertension Hypertension type: unspecified Qualified Code(s): I10 - Essential (primary) hypertension
[2024-09-27 08:17] VITALS: PULSE 61; RESP 18; TEMP 97.5; O2SAT 96
--- NOTE | 2024-09-27 09:40 | Discharge Summary ---
Discharge Summary Date of Service September 27, 2024 Principal Dx & Hospital Course #1 = Principal Diagnosis (1) Cellulitis of lower leg: MSSA and Streptococcus isolated. Now resolved. Infectious disease consultation appreciated. Oral cefadroxil discontinued today, September 27. (2) CHF (congestive heart failure): Acute on chronic diastolic CHF present on admission has now resolved. Chest x- ray done on September 23 looked better. Continue current medical management. Monitor intake and output (3) Hypertension: Stable. Continue current medical management (4) A-fib: Paroxysmal atrial fibflutter per history. Currently in normal sinus rhythm. (5) Chronic kidney disease, stage III (moderate): Stable. Monitor intake and output. Serial labs (6) Atypical chest pain: Occurred early on September 25. Chest pain has since resolved. No acute EKG changes at the time. Plan Discharge to [facility] today, September 27 Admission HPI Per Admitting Provider Caroline is a 69-year-old female with a past medical history of CHF EF 55%, nonocclusive CAD, severe /mild AR/mild TR, paroxysmal atrial flutter s/p watchman, history of PE, IBS bullous pemphigoid on Dupixent, chronic back pain on oxycodone, psoriasis, chronic venous insufficiency s/p left VenaSealGSV, and 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 No leukocytosis Hemoglobin at baseline D-dimer 1160 Per ER signout patient was seen previously in the ER however did refuse to stay for the workup and results at that time. Presents with worsening leg pain and after notification of positive D-dimer Is seen at the bedside. She reports that she has had several days of worsening left lower leg extremity swelling and pain although this worsened significantly in the last 24 hours. She had a small blister which drained some clearish fluid she was seen Gram stain atraumatic. She has not had any fever chills or sweats. She reports in the last week or 2 she has had a nonproductive cough and has felt a little short of breath, and her shortness of breath does get worse when she lays flat. She denies chest pain or chest pressure. She has a past history of VTE/DVT, although this did not migrate and no PE. She is no longer on blood thinners. She reports that her blood clot to her knowledge was unprovoked and did not have any cause for this. She is not sure why she is not on blood thinners she thinks that this was done after she had her watchman but does not remember why she had the watchman. She reports she had had some intermittent bleeding and nosebleeds, but denies GI bleed. No recent bleeding reports her last bleeding problems were several years ago. Denies hemoptysis Denies abdominal pain Denies hematochezia/melena Denies lightheadedness/dizziness Medical History: Reviewed Medications: Reviewed Surgical History: Reviewed Family history: Reviewed Allergies: Reviewed Social History: No tobacco/etoh/rec drug use Code Status: DNR/DNI Discharge Exam General-alert and oriented x3, no fever, no chills HEENT-head atraumatic and normocephalic, pupils equal and reactive to light, extraocular muscles intact Neck-no lymphadenopathy or thyromegaly, trachea midline Chest-clear to auscultation. No rales, wheezing or rhonchi Cardiac-regular rate and rhythm, normal S1 and S2 Abdomen-normal bowel sounds, no hepatosplenomegaly Extremities-no cyanosis, clubbing, or edema Neuro-cranial nerves II through XII intact, motor and sensory function within normal limits, strength symmetrical, no focal deficits Psych-normal affect, normal mood Discharge Plan Discharge Items Patient Disposition: Transfer [facility] Reason For Visit: LE CELLULITIS,ACUTE CHF Discharge Diagnosis: Left lower extremity cellulitis, acute on chronic CHF Condition on Discharge: Good Activity: Resume your previous activity Non-emergency contact: Primary Care Provider Call non-emergency contact if: you have any medication questions and your symptoms worsen Follow-up/Referrals: Nikunj Plascencia MD [Primary Care Provider] - Diet: Regular and Heart Healthy Addtl Attending Provider Instructions: You were seen in the hospital for acute on chronic congestive heart failure, and for left lower extremity infection (cellulitis). Your cellulitis rapidly improved and was nearly resolved by time of discharge. You have been prescribed a total of 7 days of antibiotics. You were started on antibiotics 09/19/2024, your last day of antibiotics will be 09/25/2024. Please complete your course of antibiotics with 3 additional days of cefpodoxime 400 mg by mouth twice daily. You had a large amount of fluid in your legs and on your lungs, consistent with a CHF exacerbation. You were treated with Lasix and had a high amount of urine output with a minimal dose of Lasix. Your leg swelling rapidly improved and your breathing rapidly improved. When you return home please take Lasix 20 mg by mouth daily. You should be seen by your primary care doctor within 1 week for reevaluation and blood work. During admission your potassium levels were elevated. You noted that you had a high potassium intake at home. Your change in Lasix to daily should help lower potassium however please avoid eating excess potassium at home. You have been prescribed a medication called lokelma. Please take Lokelma 1 packet on Monday, Monday, and Monday (3 total doses) to help lower potassium. You should have your potassium levels checked within 1 week by your primary care physician. If you develop any new or worsening symptoms including fever, chills, sweats, chest pain, chest pressure, difficulty breathing, uncontrolled nausea/vomiting, rash, wheezing, passing out or nearly passing out, bleeding, black/bloody bowel movements, or other new or concerning symptoms please call your primary care physician, or call 911 for re-evaluation in the emergency department if you are very concerned. Pending Studies at Discharge: No Stand-Alone Forms: My [employer], Smoking Cessation Skilled Items Patient informed of condition?: Yes DNR: No Discharge Level of Care: Skilled Communicable Disease: No Discharge Prognosis: Stable Lines: None Urinary Catheter: No Medications and DC Order Prescriptions: New polyethylene glycol 3350 [Miralax] 17 gram Powder In Packet 17 g PO BID Qty: 0 0RF Continued oxycodone 5 mg tablet 5 mg PO Q6H PRN (Reason: pain level 6-10 on a 1-10 scale) Qty: 10 0RF clobetasol 0.05 % cream 1 applic topical BID Qty: 60 6RF Rx Instructions: Bid to affected psoriasis scalp and Bullous pemphigoid trunk as directed. Discontinue if area clear triamcinolone acetonide 0.025 % ointment 1 applic topical BID PRN (Reason: psoriasis) Qty: 15 6RF Rx Instructions: Bid to psoriasis on face x 4 weeks. Do not use is psoriasis resolved. Dupixent Pen 300 mg/2 mL pen injector 300 mg SUBCUT Q14D Rx Instructions: q 2 weeks duloxetine [Cymbalta] 60 mg Capsule,Delayed Release(Dr/Ec) 120 mg PO QAM clopidogrel 75 mg tablet 75 mg PO QAM cyclosporine 0.05 % dropperette 1 drp OPB .EVERY 12 HOURS aspirin [Aspirin Childrens] 81 mg Tablet,Chewable 81 mg PO QAM atorvastatin 80 mg tablet 80 mg PO QAM sumatriptan succinate 25 mg tablet 525 mg PO DIRECTED MDD 5 TABS/24 HOURS PRN (Reason: Migraine Headache) Rx Instructions: TAKE 50 MG AT ONSET OF SUE, THEN MAY REPEAT WITH 25 MG EVERY 2 HOURS NEEDED. MAX 5 TABS IN 24 HOURS. pregabalin 100 mg capsule 100 mg PO TID Rx Instructions: TAKE IN THE MORNING,AT NOON AND BEFORE BEDTIME Saline Mist 0.65 % aerosol,spray 2 spray NA Q6H PRN (Reason: NASAL DRYNESS) doxepin 25 mg capsule 25 mg PO HS Qty: 30 0RF cyanocobalamin (vitamin B-12) [Vitamin B-12] 1,000 mcg Tablet 1,000 mcg PO QAM Qty: 30 0RF ascorbic acid (vitamin C) 250 mg Tablet 250 mg PO QAM Qty: 30 0RF tacrolimus 0.1 % Ointment 1 applic TOPICAL BID PRN (Reason: itching) Qty: 30 0RF calcipotriene 0.005 % cream 1 applic TOPICAL DAILY PRN (Reason: flare up) Qty: 60 0RF docusate sodium [Colace] 100 mg capsule 100 mg PO BID Qty: 60 0RF metoprolol succinate 25 mg Tablet Extended Release 24 Hr 12.5 mg PO BID Qty: 30 0RF betamethasone dipropionate 0.05 % Ointment 1 applic TOPICAL BID PRN (Reason: RASH FACE/TRUNK/ARMS) Qty: 15 0RF clotrimazole 1 % Cream 1 applic TOPICAL BID PRN (Reason: Itching) Qty: 45 0RF folic acid 800 mcg Tablet 0.8 mg PO QAM Qty: 30 0RF memantine 10 mg tablet 10 mg PO BID Qty: 60 0RF cholecalciferol (vitamin D3) [Vitamin D3] 1,000 unit Tablet 1,000 unit PO QAM Qty: 30 0RF [place] 3-6-9 1,200 mg Capsule 1 cap PO QAM Qty: 30 0RF Rx Instructions: FORMULA HAS GREEN TEA pantoprazole 40 mg Tablet,Delayed Release (Dr/Ec) 40 mg PO QAM Qty: 30 0RF Changed furosemide 20 mg tablet 20 mg PO DAILY Qty: 0 0RF Rx Instructions: take on MON/MON/MON Discontinued cephalexin 500 mg tablet 500 mg PO TID 7 Days Qty: 21 0RF Discharge Orders: Discharge Order- CHF (Routine); Ordered 09/27/24 Ordered By: Benjamin Aldana Admission Data Admit Date/Time: 09/19/24 19:54 Attending Provider: Benjamin Aldana Admit Provider: Kendrick Mar Primary Care Provider: Nikunj Plascencia Other Providers: Kendrick Mar; [place]; [place]; [facility] Hospital Stay Data Consultations 09/19/24 14:55 ED Decision to Admit Stat 09/22/24 12:22 Consult Infectious Diseases Routine Diagnostic Imagining Performed 09/19/24 13:24 US venous doppler LE BI Stat 09/19/24 17:12 CT angio chest PE protocol Stat Pending Results Patient Have Any Pending Studies at Discharge: No Discharge Instructions Given to Patient (Per Discharging Provider) You were seen in the hospital for acute on chronic congestive heart failure, and for left lower extremity infection (cellulitis). Your cellulitis rapidly improved and was nearly resolved by time of discharge. You have been prescribed a total of 7 days of antibiotics. You were started on antibiotics 09/19/2024, your last day of antibiotics will be 09/25/2024. Please complete your course of antibiotics with 3 additional days of cefpodoxime 400 mg by mouth twice daily. You had a large amount of fluid in your legs and on your lungs, consistent with a CHF exacerbation. You were treated with Lasix and had a high amount of urine output with a minimal dose of Lasix. Your leg swelling rapidly improved and your breathing rapidly improved. When you return home please take Lasix 20 mg by mouth daily. You should be seen by your primary care doctor within 1 week for reevaluation and blood work. During admission your potassium levels were elevated. You noted that you had a high potassium intake at home. Your change in Lasix to daily should help lower potassium however please avoid eating excess potassium at home. You have been prescribed a medication called lokelma. Please take Lokelma 1 packet on Monday, Monday, and Monday (3 total doses) to help lower potassium. You should have your potassium levels checked within 1 week by your primary care physician. If you develop any new or worsening symptoms including fever, chills, sweats, chest pain, chest pressure, difficulty breathing, uncontrolled nausea/vomiting, rash, wheezing, passing out or nearly passing out, bleeding, black/bloody bowel movements, or other new or concerning symptoms please call your primary care physician, or call 911 for re-evaluation in the emergency department if you are very concerned. Total Time Total Time Spent Total Time Spent (In Minutes): 45 minutes Coding Level of Care Code 20177 INP/OBS DISCH >30 MIN Diagnoses Cellulitis of lower leg L03.119 CHF (congestive heart failure) I50.9 Hypertension I10 Hypertension type: unspecified A-fib I48.91 Chronic kidney disease, stage III (moderate) N18.30 Atypical chest pain R07.89
[2024-09-27 10:50] VITALS: BP 126/77
== END 2024-09-27 12:06 | DRG 602 ==
LOC: ED 13:08 → SUATTDRO 19:54 → 2N 19:54

== ENCOUNTER 2024-10-21 19:08 | Observation (INO) ==
--- NOTE | 2024-10-21 19:13 | Emergency Department Note ---
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 Patient reported to EMS 07/30 midsternal chest pain and received 324 mg of aspirin and 4 sprays of nitroglycerin without relief prior to arrival. Patient initially arrived with O2 saturation of 82% on room air improving to 97% on nasal cannula. The patient arrives emergency department uncooperative insisting she be allowed to stand up and walk to the bathroom to urinate despite the patient's significant increased work of breathing and concern for safety. Ultimately the patient did compromise and used a bedside commode, fortunately without incident. On arrival emergency department patient is in acute respiratory distress with heart rate in the 110s and blood pressure 200/140s with O2 saturation in the 80s on room air improving to 97% with nasal cannula at 4 L but still with labored breathing. She appears hypervolemic with 2+ bilateral lower extremity pitting edema. She exhibits rales of bilateral lung crain with increased work of breathing. EKG without overt acute ischemia. CXR demonstrates congestive change with pulmonary edema per my personal preliminary review/interpretation. WBC 12.9 K with neutrophilia but no left shift, nonspecific. H/H similar to prior. Platelets within normal limits. VBG with the patient 7.3 and pCO2 within normal limits. Chemistry without metabolic acidosis. Creatinine 1.3 similar to prior values in the setting of CKD. LFTs unremarkable. Initial high-sensitivity troponin 30.0, nonspecific and in the setting of the patient's acute respiratory failure. BNP 966 consistent with patient's clinically dry appearance. Lipase is normal. Procalcitonin is not elevated. TSH within normal limits. UA pending. Fortunately the patient did begin to comply somewhat with recommendations and agreed to use a pure wick given need for aggressive diuresis. She continued to decline BiPAP. IV Lasix was ordered. She does agree with plan for admission for further management. Case was discussed with Dr. Baig [facility] hospitalist, who will evaluate the patient for admission. Further management per admitting team. Triage Nursing notes reviewed and agree them. Prior/external medical records reviewed Vital Signs: reviewed Differential diagnosis: Reactive airway disease, pneumonia, pneumothorax, COPD, CHF, infections, cardiac ischemia, pulmonary embolism, musculoskeletal, gastrointestinal, as well as other pathologies. ER treatment provided: See below. Diagnostics interpreted by me: ECG: Sinus tachycardia, 124 bpm, PACs, nonspecific ST abnormality, no overt ST elevation or depression, QTc 408, QRS 74. Cardiac Monitoring: An order for continuous cardiac monitoring was placed and demonstrated Sinus tachycardia, 124 bpm, PACs. Laboratory studies: See below Imaging studies: See below Consultation(s): G[facility] Espinosa hospitalist. HPI: Per MDM. ROS: See above HPI for pertinent positives & negatives. A total of 10 systems reviewed and were otherwise negative. VITALS:See Below PHYSICAL EXAMINATION: GENERAL: Awake, alert, in acute respiratory distress. BMI 54.2. HENT: Normocephalic, atraumatic. Oropharynx unremarkable. EYES: Normal conjunctiva. Sclera non-icteric. NECK: Supple. No nuchal rigidity. FROM. Moderate JVD. RESPIRATORY: Rales of bilateral lung crain with increased work of breathing. CARDIAC: Tachycardic rate, normal rhythm. Extremities warm and well perfused. Pulses equal. ABDOMEN: Soft, non-distended. No tenderness to palpation. No rebound or guarding. No masses. MUSCULOSKELETAL: Chest examination reveals no tenderness. The back is symmetrical on inspection without obvious abnormality. There is no CVA tenderness to palpation. No joint edema. LOWER EXTREMITIES: Calves are equal size bilaterally and non-tender. 2+ bilateral lower extremity pitting edema. No discoloration. NEURO: Normal sensorium. No sensory or motor deficits noted. SKIN: No rash or jaundice noted. Otoniel Farmer MD Past Med/Surg History Problem List (Updated 10/22/24 @ 06:47 by Otoniel Farmer MD) Hypervolemia (Acute) Elevated troponin (Acute) Acute respiratory failure with hypoxia (Acute) Acute on chronic heart failure CHF (congestive heart failure) (Acute) Atypical chest pain Positive blood culture Chronic kidney disease, stage III (moderate) Cellulitis of lower leg (Acute) Elevated troponin (Acute) Left leg weakness (Acute) CHF (congestive heart failure) Dyspnea on exertion Hypertension (Acute) Chronic back pain (Acute) Thrombolytic medication administered within last 5 days (Acute) Stroke-like symptoms (Acute) Left leg weakness (Acute) Skin tear of left upper extremity (Acute) Chronic venous insufficiency (Chronic) Edema of left lower extremity Traumatic open wound of left lower leg with delayed healing (Acute) Leg wound, left (Acute) Obtunded (Acute) Acute confusion (Acute) Deep laceration of knee (Acute) Fracture, patella (Acute) Encephalopathy Leg laceration Left knee injury Acute kidney injury superimposed on CKD (Acute) Back pain (Acute) Fall (Acute) Right hip pain Hyperkalemia Orthostatic hypotension Hypotension Ambulatory dysfunction (Acute) Metatarsal bone fracture (Acute) Closed fibular fracture (Acute) Fall Presence of Watchman left atrial appendage closure device Paroxysmal atrial fibrillation Bullous pemphigoid (Chronic) Chronic anemia Severe aortic stenosis Closed fracture of proximal end of right fibula Paroxysmal atrial fibrillation Moderate aortic stenosis Atypical chest pain Chest pain (Acute) Acute anterior epistaxis (Acute) Hiatal hernia Uncontrolled hypertension Obesity (Acute) Atrial flutter, paroxysmal Aortic stenosis Bicuspid aortic valve Chronic low back pain GERD (gastroesophageal reflux disease) Dyslipidemia Atrial flutter, paroxysmal Candidal intertrigo DVT prophylaxis Chest pain (Acute) Neurogenic claudication due to lumbar spinal stenosis Feeling of incomplete bladder emptying Anemia (Acute) Stage 3 chronic kidney disease (Acute) Anxiety and depression CAD (coronary artery disease) non-obstructive Hypertension (Acute) Medical History Skin tear of elbow without complication Nose septum perforation Chronic low back pain Sacroiliitis IBS (irritable bowel syndrome) Borderline diabetes mellitus A-fib "i think i have a-fib." -- on eliquis -- follows with Dr. Torres History of TIA (transient ischemic attack) 2016 Cardiac murmur History of skin cancer History of COVID-19 02/2020; generalized weakness, diarrhea, sob, fever, body aches; hospitalized x 1 week; c/o ongoing brain fog since having covid Verbalizes suicidal thoughts COVID-19 Nocturia Acute urinary retention Back pain Renal failure Morbid obesity BMI 50.5 Carotid artery stenosis "mild" Aortic stenosis Mild (per cardiology review) aortic stenosis with possible bicuspid aortic valve (MG 19mmhg, NIKKIE 3.0) per 05/2018 ECHO Anemia Osteoporosis GERD (gastroesophageal reflux disease) controlled Chronic back pain High cholesterol Hx of falling last fall 09/2018- per patient, related to LBP/balance issues- ? r/t ambulatory dysfunction- improved with cane/walker use Surgical History History of right cataract extraction S/P epidural steroid injection History of appendectomy History of cardiac cath 2017= NO STENTS History of right knee joint replacement History of back surgery Hx of laparoscopy History of kyphoplasty Family History Father Stroke Slow to wake up after anesthesia Myocardial infarction, Onset Age: 40 Mother Stroke Myocardial infarction, Onset Age: 60 Sister Myocardial infarction, Onset Age: 60 Social History Smoking Status: Former smoker Tobacco Type: Cigarettes Cigarettes Per Day: quit 40 yrs ago; Second Hand Exposure: Yes; Hx Alcohol Use: No Hx Substance Use: No Preferred Language: Persian Communication Ability: Effective Visual Impairment: No Limitations Hearing Ability: Normal Human Resources Benefits Administrator Required: No Beliefs That Will Affect Care: None marital status: Single Current Living Situation: Family Current Living Situation Comment: lives w/ sister Colleen current occupational status: unemployed and disabled Other Information That Helps Us Care for You: No Feels Safe at Home: Yes Diet: regular caffeine: Yes Assistive Devices: Cane and Walker Allergies Allergies Allergy/AdvReac Type Severity Reaction Status Date / Time egg AdvReac Intermediate GI upset Verified 10/21/24 20:08 ibuprofen AdvReac Intermediate stomach Verified 10/21/24 20:08 irritation morphine AdvReac Intermediate LEGS SWELL Verified 10/21/24 20:08 Home Meds Home Medications Medication Instructions Recorded Confirmed dupilumab 300 mg/2 mL subcutaneous 300 mg subcut Q14D 09/14/23 10/21/24 pen injector (Dupixent) aspirin 81 mg chewable tablet 81 mg PO QAM 09/19/24 10/21/24 (Aspirin Childrens) atorvastatin 80 mg tablet 80 mg PO QPM 09/19/24 10/21/24 clopidogrel 75 mg tablet 75 mg PO QAM 09/19/24 10/21/24 cyclosporine 0.05 % eye drops in a 1 drp OPB .EVERY 12 HOURS 09/19/24 10/21/24 dropperette pregabalin 100 mg capsule 100 mg PO TID 09/19/24 10/21/24 sodium chloride 0.65 % nasal spray 2 spray NA Q6H PRN NASAL DRYNESS 09/19/24 10/21/24 aerosol (Saline Mist) sumatriptan succinate 25 mg tablet 25 - 50 mg PO DIRECTED PRN 09/19/24 10/21/24 Migraine Headache metoprolol succinate 50 mg 25 mg PO BID 10/14/24 10/21/24 tablet,extended release 24 hr docusate sodium 100 mg capsule 100 mg PO DAILY 10/21/24 10/21/24 (Colace) furosemide 20 mg tablet 20 mg PO 3XWK 10/21/24 10/21/24 Previous Rx's Medication Instructions Recorded ascorbic acid (vitamin C) 250 mg 250 mg PO QAM #30 tabs 11/03/23 tablet betamethasone dipropionate 0.05 % 1 applic topical BID PRN RASH 11/03/23 topical ointment FACE/TRUNK/ARMS #15 grams calcipotriene 0.005 % topical cream 1 applic topical DAILY PRN flare 11/03/23 up #60 grams cholecalciferol (vitamin D3) 25 1,000 unit PO QAM #30 tabs 11/03/23 mcg (1,000 unit) tablet (Vitamin D3) clotrimazole 1 % topical cream 1 applic topical BID PRN Itching 11/03/23 #45 grams cyanocobalamin (vitamin B-12) 1,000 mcg PO QAM #30 tabs 11/03/23 1,000 mcg tablet (Vitamin B-12) doxepin 25 mg capsule 25 mg PO HS #30 caps 11/03/23 fish, borage, flaxseed oils-omega 1 cap PO QAM #30 caps 11/03/23 3,6,9 comb no.1 1,200 mg capsule ([place] 3-6-9) folic acid 800 mcg tablet 0.8 mg PO QAM #30 tabs 09/13/24 memantine 10 mg tablet 10 mg PO BID #60 tabs 11/03/23 tacrolimus 0.1 % topical ointment 1 applic topical BID PRN itching 11/03/23 #30 grams pantoprazole 40 mg tablet,delayed 40 mg PO QAM #30 tabs 06/21/24 release oxycodone 5 mg tablet 5 mg PO Q6H PRN pain level 6-10 on 08/15/24 a 1-10 scale #10 tabs clobetasol 0.05 % topical cream 1 applic topical BID bullous 09/11/24 pemphigoid and psoriasis #60 grams triamcinolone acetonide 0.025 % 1 applic topical BID PRN psoriasis 09/11/24 topical ointment #15 grams escitalopram oxalate 10 mg tablet 10 mg PO DAILY #30 tabs 10/14/24 (Lexapro) tirzepatide (weight loss) 2.5 2.5 mg (0.5 mL) subcut .WEEKLY #2 10/14/24 mg/0.5 mL subcutaneous pen mL injector ([employer]) Results & Data (ED) Vital Signs Vital Signs - 24 hr 10/21/24 19:14 10/21/24 19:14 10/21/24 19:14 Temperature 36.8 C Temperature Source Oral Pulse Rate 112 H Pulse Rate [Apical] Respiratory Rate 20 Respiratory Effort / Characteristics Spontaneous Labored Short of Breath Spontaneous Short of Breath Blood Pressure 209/147 H Blood Pressure [Right Arm] Blood Pressure Mean 167 Blood Pressure Mean [Right Arm] Pulse Oximetry 97 82 L Oxygen Delivery Method Nasal Cannula Nasal Cannula Nasal Cannula Oxygen Flow Rate 4 4 0 Sepsis Recent Fever Within 48 Hours No Sepsis New/Unexplained Change in Mental Status No Sepsis Action Taken by Nursing No Action Required Oxygen Flow Rate - Titration 4 Pulse Oximetry Post Tiitration 97 10/21/24 19:14 10/21/24 19:14 10/21/24 19:16 Temperature Temperature Source Pulse Rate 112 H 123 H Pulse Rate [Apical] 112 H Respiratory Rate 20 20 Respiratory Effort / Characteristics Spontaneous Short of Breath Blood Pressure Blood Pressure [Right Arm] 209/147 H Blood Pressure Mean Blood Pressure Mean [Right Arm] 167 Pulse Oximetry 97 97 Oxygen Delivery Method Nasal Cannula Room Air Oxygen Flow Rate 4 Sepsis Recent Fever Within 48 Hours Sepsis New/Unexplained Change in Mental Status Sepsis Action Taken by Nursing Oxygen Flow Rate - Titration Pulse Oximetry Post Tiitration 10/21/24 19:53 10/21/24 19:54 10/21/24 22:00 Temperature Temperature Source Pulse Rate 180 H 110 H Pulse Rate [Apical] 76 Respiratory Rate 16 Respiratory Effort / Characteristics Non-Labored Spontaneous Blood Pressure Blood Pressure [Right Arm] 116/62 Blood Pressure Mean Blood Pressure Mean [Right Arm] 80 Pulse Oximetry 95 Oxygen Delivery Method Nasal Cannula Oxygen Flow Rate 4 Sepsis Recent Fever Within 48 Hours Sepsis New/Unexplained Change in Mental Status Sepsis Action Taken by Nursing Oxygen Flow Rate - Titration Pulse Oximetry Post Tiitration Laboratory Data Attestation: I reviewed the patient's lab results. 10/22/24 05:57 10/21/24 19:22 Lab Results 10/21/24 10/21/24 10/21/24 Range/Units 19:22 19:28 19:44 WBC 12.94 H (4.8-10.8) K/ul RBC 3.82 L (4.20-5.40) M/uL Hgb 9.9 L (12.0-16.0) g/dl POC Hgb 11.9 L (12.0-16.0) g/dl Hct 33.3 L (37.0-47.0) % POC Hct 35 L (37-47) % MCV 87.2 (80.0-100.0) fL MCH 25.9 (25.0-34.0) pg MCHC 29.7 L (32.0-36.0) g/dL RDW Std Deviation 61.7 H (36.4-46.3) fL RDW Coeff of Brandy 19.2 H (11.5-14.5) % Plt Count 166 (130-400) K/uL MPV 10.7 (9.4-12.4) fL Immature Gran % (Auto) 0.4 % Neut % (Auto) 74.4 % Lymph % (Auto) 14.8 % [place] % (Auto) 8.7 % Eos % (Auto) 1.3 % Baso % (Auto) 0.4 % Neut # (Auto) 9.64 H (1.40-6.50) K/uL Lymph # (Auto) 1.91 (1.20-3.40) K/uL [place] # (Auto) 1.12 H (0.11-0.59) K/uL Eos # (Auto) 0.17 (0.00-0.50) K/uL Baso # (Auto) 0.05 (0.00-0.20) K/uL Immature Gran # (Auto) 0.05 (0.01-0.20) K/uL PT 11.3 (9.0-12.0) Seconds INR 1.0 (0.9-1.1) VBG pH 7.33 L (7.36-7.41) VBG pCO2 47 (38-50) mmHg VBG pO2 36 mmHg VBG HCO3 25 mmol/L VBG O2 Saturation < 60.0 % VBG Base Excess -1.5 mEq/L POC Sodium 141 (135-144) mmol/L Sodium 139 (136-145) mmol/L POC Potassium 4.3 (3.3-5.0) mmol/L Potassium 4.4 (3.5-5.1) mmol/L POC Chloride 106 (101-112) mmol/L Chloride 106 (98-107) mmol/L Carbon Dioxide 25 (21-32) mmol/L POC Total CO2 22 L (24-31) mmol/L Anion Gap 8 (3-11) POC Anion Gap 17.0 (16-25) mmol/L POC BUN 32 H (7-18) mg/dl BUN 34 H (6-23) mg/dl Creatinine 1.33 H (0.6-1.2) mg/dl POC Creatinine 1.5 H (0.6-1.3) mg/dl Est Cr Clr Drug Dosing Not Reportable eGFR 43.85 BUN/Creatinine Ratio 25.6 H (10-20) Glucose 118 H (70-99(Fasting)) mg/dl POC Glucose (other) 118 H (70-99) mg/dl Calcium 9.7 (8.6-10.3) mg/dl POC Ioniz Calcium Starr 1.24 (1.12-1.32) mmol/l Phosphorus 3.1 (2.5-4.9) mg/dl Magnesium 1.6 L (1.7-2.4) mg/dl Total Bilirubin 0.6 (0.2-1.0) mg/dl AST 20 (13-39) U/L ALT 10 (7-52) U/L Alkaline Phosphatase 95 (34-104) U/L Troponin I High Sens 30.0 H (0-14) pg/ml B-Natriuretic Peptide 966 H (0-100) pg/ml Total Protein 7.8 (6.0-8.3) gm/dl Albumin 3.7 (3.4-5.0) gm/dl Globulin 4.1 H (2.5-4.0) gm/dl Albumin/Globulin Ratio 0.9 (0.9-2) Lipase 20 (11-82) U/L Procalcitonin < 0.02 (0-0.5) ng/ml TSH 1.750 (0.300-4.500) uIu/ml Urine Color Urine Appearance (Clear) Urine pH (4.5-7.5) Ur Specific Thayer (1.000-1.030) Urine Protein (Negative) Urine Glucose (UA) (Negative) Urine Ketones (Negative) Urine Blood (Negative) Urine Nitrite (Negative) Urine Bilirubin (Negative) Urine Urobilinogen (Negative) Ur Leukocyte Esterase (Negative) Urine WBC (Auto) (0-5) /hpf Urine RBC (Auto) (0-2) /hpf U Hyaline Cast (Auto) (0-2) /lpf U Epithel Cells (Auto) (0-2) /hpf Urine Bacteria (Auto) (None Seen) Urine Comment 10/21/24 10/21/24 Range/Units 21:04 21:47 WBC (4.8-10.8) K/ul RBC (4.20-5.40) M/uL Hgb (12.0-16.0) g/dl POC Hgb (12.0-16.0) g/dl Hct (37.0-47.0) % POC Hct (37-47) % MCV (80.0-100.0) fL MCH (25.0-34.0) pg MCHC (32.0-36.0) g/dL RDW Std Deviation (36.4-46.3) fL RDW Coeff of Brandy (11.5-14.5) % Plt Count (130-400) K/uL MPV (9.4-12.4) fL Immature Gran % (Auto) % Neut % (Auto) % Lymph % (Auto) % [place] % (Auto) % Eos % (Auto) % Baso % (Auto) % Neut # (Auto) (1.40-6.50) K/uL Lymph # (Auto) (1.20-3.40) K/uL [place] # (Auto) (0.11-0.59) K/uL Eos # (Auto) (0.00-0.50) K/uL Baso # (Auto) (0.00-0.20) K/uL Immature Gran # (Auto) (0.01-0.20) K/uL PT (9.0-12.0) Seconds INR (0.9-1.1) VBG pH (7.36-7.41) VBG pCO2 (38-50) mmHg VBG pO2 mmHg VBG HCO3 mmol/L VBG O2 Saturation % VBG Base Excess mEq/L POC Sodium (135-144) mmol/L Sodium (136-145) mmol/L POC Potassium (3.3-5.0) mmol/L Potassium (3.5-5.1) mmol/L POC Chloride (101-112) mmol/L Chloride (98-107) mmol/L Carbon Dioxide (21-32) mmol/L POC Total CO2 (24-31) mmol/L Anion Gap (3-11) POC Anion Gap (16-25) mmol/L POC BUN (7-18) mg/dl BUN (6-23) mg/dl Creatinine (0.6-1.2) mg/dl POC Creatinine (0.6-1.3) mg/dl Est Cr Clr Drug Dosing eGFR BUN/Creatinine Ratio (10-20) Glucose (70-99(Fasting)) mg/dl POC Glucose (other) (70-99) mg/dl Calcium (8.6-10.3) mg/dl POC Ioniz Calcium Starr (1.12-1.32) mmol/l Phosphorus (2.5-4.9) mg/dl Magnesium (1.7-2.4) mg/dl Total Bilirubin (0.2-1.0) mg/dl AST (13-39) U/L ALT (7-52) U/L Alkaline Phosphatase (34-104) U/L Troponin I High Sens 62.0 H* D (0-14) pg/ml B-Natriuretic Peptide (0-100) pg/ml Total Protein (6.0-8.3) gm/dl Albumin (3.4-5.0) gm/dl Globulin (2.5-4.0) gm/dl Albumin/Globulin Ratio (0.9-2) Lipase (11-82) U/L Procalcitonin (0-0.5) ng/ml TSH (0.300-4.500) uIu/ml Urine Color Yellow Urine Appearance Clear (Clear) Urine pH 5.5 (4.5-7.5) Ur Specific [place] 1.019 (1.000-1.030) Urine Protein Trace H (Negative) Urine Glucose (UA) Negative (Negative) Urine Ketones Negative (Negative) Urine Blood Negative (Negative) Urine Nitrite Negative (Negative) Urine Bilirubin Negative (Negative) Urine Urobilinogen Negative (Negative) Ur Leukocyte Esterase 2+ H (Negative) Urine WBC (Auto) 0-5 (0-5) /hpf Urine RBC (Auto) 6-10 H (0-2) /hpf U Hyaline Cast (Auto) 0-2 (0-2) /lpf U Epithel Cells (Auto) 0-2 (0-2) /hpf Urine Bacteria (Auto) 4+ H (None Seen) Urine Comment Administered Medications Discontinued Medications Albuterol (Albut/Ipratrop 3mg/0.5mg Neb 3 Ml Vial) 3 ml NEB NOW STA; Protocol Stop: 10/21/24 19:23 Last Admin: 10/21/24 19:44 Dose: Not Given Documented By: ERIC Furosemide (Furosemide Inj 20 Mg/2 Ml Vial) 20 mg IV ONE ONE Stop: 10/21/24 20:07 Last Admin: 10/21/24 20:44 Dose: 20 mg Documented By: ERIC Hydromorphone HCl (Hydromorphone Inj 0.5 Mg/0.5 Ml Syr) 0.25 mg IV NOW STA Stop: 10/21/24 22:54 Last Admin: 10/21/24 23:15 Dose: 0.25 mg Documented By: REINALDO Acetaminophen (Ofirmev) 1,000 mg in 100 mls @ 400 mls/hr IV NOW STA Stop: 10/21/24 20:13 Last Infusion: 10/21/24 21:49 Dose: Infused Documented By: Admin: 10/21/24 20:20 Dose: 400 mls/hr Documented By: CROW Magnesium Sulfate/Dextrose (Magnesium Sulfate / D5w) 1 gm in 100 mls @ 100 mls/hr IV NOW STA Stop: 10/21/24 21:09 Last Infusion: 10/21/24 21:50 Dose: Infused Documented By: Admin: 10/21/24 20:20 Dose: 100 mls/hr Documented By: CROW Magnesium Sulfate/Dextrose (Magnesium Sulfate / D5w) 1 gm in 100 mls @ 50 mls/hr IV ONE ONE Stop: 10/22/24 02:48 Last Infusion: 10/22/24 05:00 Dose: Infused Documented By: Admin: 10/22/24 01:54 Dose: 50 mls/hr Documented By: NEYMAR Oxycodone HCl (Oxycodone Hcl Ir 5 Mg Tab (Immediate Release)) 5 mg PO NOW STA Stop: 10/21/24 20:07 Last Admin: 10/21/24 20:21 Dose: 5 mg Documented By: CROW Imaging Data Radiologist's Impression: Chest X-Ray 10/21/24 19:11 Chest radiograph, one view History: Chest pain Comparison: 09/23/2024 Findings/impression: Single AP view of the chest performed. The cardiac silhouette is enlarged. New perihilar opacity, as well as prominence of the pulmonary vascularity, suggestive of new pulmonary edema. No pleural effusion or pneumothorax is visualized. Electronically signed by Reinaldo Hairston 10-21-2024 7:34 PM Discharge Plan Visit Data Chief Complaint: Cardiac Assessment Stated Complaint: CHEST PAIN, SHORTNESS OF BREATH ED Provider: Otoniel Farmer Discharge Problem: Acute respiratory failure with hypoxia, CHF (congestive heart failure), Elevated troponin, Hypervolemia Patient Disposition: Admitted As Inpatient Condition: Serious Discharge Instructions Interventions: ED Discharge Assessment Last Done: 10/22/24 00:38 Discharge Problem: CHF (congestive heart failure) Qualifiers: Heart failure type: unspecified Heart failure chronicity: acute on chronic Q ualified Code(s): I50.9 - Heart failure, unspecified Hypervolemia Qualifiers: Hypervolemia type: unspecified Qualified Code(s): E87.70 - Fluid overload, unspecified
--- NOTE | 2024-10-21 19:35 | XRay Report ---
Chest radiograph, one view History: Chest pain Comparison: 09/23/2024 Findings/impression: Single AP view of the chest performed. The cardiac silhouette is enlarged. New perihilar opacity, as well as prominence of the pulmonary vascularity, suggestive of new pulmonary edema. No pleural effusion or pneumothorax is visualized. Electronically signed by Reinaldo Hairston 10-21-2024 7:34 PM
[2024-10-21 19:39] LABS: Hematocrit (blood only) 33.3 % (37.0-47.0); Hemoglobin 9.9 g/dl (12.0-16.0); Immature Granulocytes # (auto) 0.05 K/uL (0.01-0.20); Immature Granulocytes % (auto) 0.4 %; Mean Corpuscular Hemoglobin 25.9 pg (25.0-34.0); Mean Corpuscular Volume 87.2 fL (80.0-100.0); Platelet Count 166 K/uL (130-400); RDW Standard Deviation 61.7 fL (36.4-46.3); Red Blood Count 3.82 M/uL (4.20-5.40); White Blood Count 12.94 K/ul (4.8-10.8)
[2024-10-21] MEDS: ALBUT/IPRATROP 3MG/0.5MG NEB 3 ML VIAL NEB STA (19:39)
[2024-10-21 19:51] LABS: Base Excess VBG -1.5 mEq/L; HCO3 VBG 25 mmol/L; Oxygen Saturation VBG < 60.0 %; PCO2 VBG 47 mmHg (38-50); PO2 VBG 36 mmHg; pH VBG 7.33 (7.36-7.41)
[2024-10-21 19:57] LABS: Alanine Aminotransferase 10 U/L (7-52); Albumin Globulin Ratio 0.9 (0.9-2); Alkaline Phosphatase 95 U/L (34-104); Anion Gap 8 (3-11); Bilirubin,Total 0.6 mg/dl (0.2-1.0); Blood Urea Nitrogen 34 mg/dl (6-23); Calcium 9.7 mg/dl (8.6-10.3); Carbon Dioxide 25 mmol/L (21-32); Chloride 106 mmol/L (98-107); Globulin 4.1 gm/dl (2.5-4.0); Glucose 118 mg/dl (70-99(Fasting)); Lipase 20 U/L (11-82); Magnesium 1.6 mg/dl (1.7-2.4); Potassium 4.4 mmol/L (3.5-5.1); Sodium 139 mmol/L (136-145); Total Protein 7.8 gm/dl (6.0-8.3)
[2024-10-21 20:05] LABS: INR 1.0 (0.9-1.1); Prothrombin Time 11.3 Seconds (9.0-12.0)
[2024-10-21 20:13] LABS: Thyroid Stimulating Hormone 1.750 uIu/ml (0.300-4.500)
[2024-10-21] MEDS: ACETAMINOPHEN 1,000 MG/100 ML VIAL IV STA (20:20)
[2024-10-21] MEDS: MAGNESIUM SULFATE / D5W 1 GM/100 ML BAG IV STA (20:20)
[2024-10-21] MEDS: FUROSEMIDE INJ 20 MG/2 ML VIAL IV ONE (20:44)
--- NOTE | 2024-10-21 22:04 | History & Physical Report ---
Date of Service October 21, 2024 Assessment & Plan (1) Acute on chronic heart failure: (2) Elevated troponin: (3) Hypertension: (4) Paroxysmal atrial fibrillation: (5) GERD (gastroesophageal reflux disease): (6) Dyslipidemia: (7) CAD (coronary artery disease): Plan 69yo female presenting with progressive edema, orthopnea and SOB. Patient has been on increased dose of Lasix outpatient - failed therapy. Briefly hypoxic in the ER to 82% - no saturating well no NC. #Acute on chronic HFpEF (Last echo with EF of 65-70% on 09/22/24) - thickened and calcified aortic valve with trace aortic regurgitation. -Admit to medical with telemetry -Diuresis with Lasix 20mg IV daily - should be assessed for possible BID dosing pending blood pressure response -Monitor intake and output -Monitor daily weights -Monitor BMP q 12 hours to assess renal function and electrolytes #Elevated troponin -Trend to peak -Telemetry monitoring #Hypertension - blood pressure well controlled -Continue Metoprolol 25mg po BID #Paroxysmal atrial fibrillation -Continue Metoprolol 25mg po BID -No anticoagulation - patient had Watchman procedure performed #Hyperlipidemia -Continue Atorvastatin #CAD -Continue ASA 81mg po daily -Continue Plavix 75mg po daily -Continue Atorvastatin 80mg po daily -Continue Metoprolol 25mg po BID #GERD -Continue Protonix 40mg po daily #Anxiety/mental health -Continue Doxepin -Continue Escitalopram -Cotninue Memantine 10mg po BID History of Present Illness Chief Complaint: shortness of breath Primary Care Provider: NO PCP Caroline Paulino is a 69yo female with history of AF, HTN, CAD, HFpEF presenting with shortness of breath. Patient's Lasix was increased from 10mg three times weekly to 20mg three times weekly in September. She reports she has been urinating more frequently since this medication adjustment. She does, however, report progressive edema and orthopnea as well as shortness of breath. This evening she had some substernal chest discomfort - sharp in nature that lasted several hours. She also had chills today. No fever, no cough, no abdominal pain, nausea, vomiting, diarrhea. No ad ditional complaints at this time. In the ER patient afebrile - initially tachycardic and hypertensive. Placed on supplemental O2 - hypoxic at 82% on room air, now improved on 4L NC ER Course: Tylenol Albuterol Lasix 20mg IV Oxycodone 5mg PO Dilaudid 0.25mg IV Magnesium Allergies Allergy/AdvReac Type Severity Reaction Status Date / Time egg AdvReac Intermediate GI upset Verified 10/21/24 20:08 ibuprofen AdvReac Intermediate stomach Verified 10/21/24 20:08 irritation morphine AdvReac Intermediate LEGS SWELL Verified 10/21/24 20:08 Home Medications Medication Instructions Recorded Confirmed Type dupilumab 300 mg/2 mL subcutaneous 300 mg subcut Q14D 09/14/23 10/21/24 History pen injector (Dupixent) ascorbic acid (vitamin C) 250 mg 250 mg PO QAM #30 tabs 11/03/23 10/21/24 Rx tablet betamethasone dipropionate 0.05 % 1 applic topical BID PRN RASH 11/03/23 10/21/24 Rx topical ointment FACE/TRUNK/ARMS #15 grams calcipotriene 0.005 % topical cream 1 applic topical DAILY PRN flare 11/03/23 10/21/24 Rx up #60 grams cholecalciferol (vitamin D3) 25 1,000 unit PO QAM #30 tabs 11/03/23 10/21/24 Rx mcg (1,000 unit) tablet (Vitamin D3) clotrimazole 1 % topical cream 1 applic topical BID PRN Itching 11/03/2303/16 Rx #45 grams cyanocobalamin (vitamin B-12) 1,000 mcg PO QAM #30 tabs 11/03/23 10/21/24 Rx 1,000 mcg tablet (Vitamin B-12) doxepin 25 mg capsule 25 mg PO HS #30 caps 11/03/23 10/21/24 Rx fish, borage, flaxseed oils-omega 1 cap PO QAM #30 caps 11/03/23 10/21/24 Rx 3,6,9 comb no.1 1,200 mg capsule ([place] 3-6-9) folic acid 800 mcg tablet 0.8 mg PO QAM #30 tabs 11/03/23 10/21/24 Rx memantine 10 mg tablet 10 mg PO BID #60 tabs 11/03/23 10/21/24 Rx tacrolimus 0.1 % topical ointment 1 applic topical BID PRN itching 11/03/23 10/21/24 Rx #30 grams pantoprazole 40 mg tablet,delayed 40 mg PO QAM #30 tabs 06/21/24 10/21/24 Rx release oxycodone 5 mg tablet 5 mg PO Q6H PRN pain level 6-10 on 08/15/24 10/21/24 Rx a 1-10 scale #10 tabs clobetasol 0.05 % topical cream 1 applic topical BID bullous 09/11/24 10/21/24 Rx pemphigoid and psoriasis #60 grams triamcinolone acetonide 0.025 % 1 applic topical BID PRN psoriasis 09/11/24 10/21/24 Rx topical ointment #15 grams aspirin 81 mg chewable tablet 81 mg PO QAM 09/19/24 10/21/24 History (Aspirin Childrens) atorvastatin 80 mg tablet 80 mg PO QPM 09/19/24 10/21/24 History clopidogrel 75 mg tablet 75 mg PO QAM 09/19/24 10/21/24 History cyclosporine 0.05 % eye drops in a 1 drp OPB .EVERY 12 HOURS 09/19/24 10/21/24 History dropperette pregabalin 100 mg capsule 100 mg PO TID 09/19/24 10/21/24 History sodium chloride 0.65 % nasal spray 2 spray NA Q6H PRN NASAL DRYNESS 09/19/24 10/21/24 History aerosol (Saline Mist) sumatriptan succinate 25 mg tablet 25 - 50 mg PO DIRECTED PRN 09/19/24 10/21/24 History Migraine Headache escitalopram oxalate 10 mg tablet 10 mg PO DAILY #30 tabs 10/14/24 10/21/24 Rx (Lexapro) metoprolol succinate 50 mg 25 mg PO BID 10/14/24 10/21/24 History tablet,extended release 24 hr tirzepatide (weight loss) 2.5 2.5 mg (0.5 mL) subcut .WEEKLY #2 10/14/24 10/21/24 Rx mg/0.5 mL subcutaneous pen mL injector (Zepbound) docusate sodium 100 mg capsule 100 mg PO DAILY 10/21/24 10/21/24 History (Colace) furosemide 20 mg tablet 20 mg PO 3XWK 10/21/24 10/21/24 History Past Med/Surg History Problem List (Updated 10/22/24 @ 03:14 by Dia Baig DO) Acute on chronic heart failure CHF (congestive heart failure) (Acute) Atypical chest pain Positive blood culture Chronic kidney disease, stage III (moderate) Cellulitis of lower leg (Acute) Elevated troponin (Acute) Left leg weakness (Acute) CHF (congestive heart failure) Dyspnea on exertion Hypertension (Acute) Chronic back pain (Acute) Thrombolytic medication administered within last 5 days (Acute) Stroke-like symptoms (Acute) Left leg weakness (Acute) Skin tear of left upper extremity (Acute) Chronic venous insufficiency (Chronic) Edema of left lower extremity Traumatic open wound of left lower leg with delayed healing (Acute) Leg wound, left (Acute) Obtunded (Acute) Acute confusion (Acute) Deep laceration of knee (Acute) Fracture, patella (Acute) Encephalopathy Leg laceration Left knee injury Acute kidney injury superimposed on CKD (Acute) Back pain (Acute) Fall (Acute) Right hip pain Hyperkalemia Orthostatic hypotension Hypotension Ambulatory dysfunction (Acute) Metatarsal bone fracture (Acute) Closed fibular fracture (Acute) Fall Presence of Watchman left atrial appendage closure device Paroxysmal atrial fibrillation Bullous pemphigoid (Chronic) Chronic anemia Severe aortic stenosis Closed fracture of proximal end of right fibula Paroxysmal atrial fibrillation Moderate aortic stenosis Atypical chest pain Chest pain (Acute) Acute anterior epistaxis (Acute) Hiatal hernia Uncontrolled hypertension Obesity (Acute) Atrial flutter, paroxysmal Aortic stenosis Bicuspid aortic valve Chronic low back pain GERD (gastroesophageal reflux disease) Dyslipidemia Atrial flutter, paroxysmal Candidal intertrigo DVT prophylaxis Chest pain (Acute) Neurogenic claudication due to lumbar spinal stenosis Feeling of incomplete bladder emptying Anemia (Acute) Stage 3 chronic kidney disease (Acute) Anxiety and depression CAD (coronary artery disease) non-obstructive Hypertension (Acute) Medical History Skin tear of elbow without complication Nose septum perforation Chronic low back pain Sacroiliitis IBS (irritable bowel syndrome) Borderline diabetes mellitus A-fib "i think i have a-fib." -- on eliquis -- follows with Dr. Torres History of TIA (transient ischemic attack) 2016 Cardiac murmur History of skin cancer History of COVID-19 02/2020; generalized weakness, diarrhea, sob, fever, body aches; hospitalized x 1 week; c/o ongoing brain fog since having covid Verbalizes suicidal thoughts COVID-19 Nocturia Acute urinary retention Back pain Renal failure Morbid obesity BMI 50.5 Carotid artery stenosis "mild" Aortic stenosis Mild (per cardiology review) aortic stenosis with possible bicuspid aortic valve (MG 19mmhg, NIKKIE 3.0) per 05/2018 ECHO Anemia Osteoporosis GERD (gastroesophageal reflux disease) controlled Chronic back pain High cholesterol Hx of falling last fall 09/2018- per patient, related to LBP/balance issues- ? r/t ambulatory dysfunction- improved with cane/walker use Surgical History History of right cataract extraction S/P epidural steroid injection History of appendectomy History of cardiac cath 2017= NO STENTS History of right knee joint replacement History of back surgery Hx of laparoscopy History of kyphoplasty Family History Father Stroke Slow to wake up after anesthesia Myocardial infarction, Onset Age: 40 Mother Stroke Myocardial infarction, Onset Age: 60 Sister Myocardial infarction, Onset Age: 60 Social History Smoking Status: Former smoker Tobacco Type: Cigarettes Cigarettes Per Day: quit 40 yrs ago; Second Hand Exposure: Yes; Hx Alcohol Use: No Hx Substance Use: No Preferred Language: Nigerien Communication Ability: Effective Visual Impairment: No Limitations Hearing Ability: Normal Drama Professor Required: No Beliefs That Will Affect Care: None marital status: Single Current Living Situation: Family Current Living Situation Comment: lives w/ sister Colleen current occupational status: unemployed and disabled Feels Safe at Home: Yes Diet: regular caffeine: Yes Assistive Devices: Hospital Bed, Oxygen - Continuous and Walker Review of Systems Review of Systems: All systems reviewed & are unremarkable except as noted in HPI & below Physical Exam Physical Exam: General: patient resting comfortably, NAD, non-toxic in appearance, AA&O x 4 Skin: warm, dry, intact, no rashes or lesions HEENT: NC/AT, PERRL, EOMI, anicteric sclera, conjunctiva without injection, external ear normal to inspection and nontender, nares patent, moist mucus membranes, dentition intact, no oropharyngeal lesions, neck supple, trachea midline, no LAD, no thyromegaly, no JVD Heart: +S1/S2, irregularly irregular, no m/r/g Lungs: +crackles in bilateral lung, no wheezing/rhonchi Abd: +BS, soft, NT/ND, no masses/organomegaly/ascites Ext: warm, 2+ pulses in UE/LE bilaterally, no clubbing/cyanosis, +edema bilateral LE Neuro: nonfocal, patient AA&O x 4, speech intact, no facial droop, moving all extremities on command with equal strength 5/5 Results & Data Results & Data Vital Signs (Past 12 Hours) Vital Signs Temp Pulse Pulse Resp BP BP Pulse Ox 10/21/24 19:54 110 H 10/21/24 19:53 180 H 10/21/24 19:16 123 H 10/21/24 19:14 112 H 20 97 10/21/24 19:14 112 H 20 209/147 H 97 10/21/24 19:14 82 L 10/21/24 19:14 36.8 C 112 H 20 209/147 H 97 10/21/24 19:14 O2 Del Method O2 Flow Rate 10/21/24 19:54 10/21/24 19:53 10/21/24 19:16 10/21/24 19:14 Room Air 10/21/24 19:14 Nasal Cannula 4 10/21/24 19:14 Nasal Cannula 0 10/21/24 19:14 Nasal Cannula 4 10/21/24 19:14 Nasal Cannula 4 Laboratory Results Laboratory Results WBC 12.94 K/ul (4.8-10.8) H 10/21/24 19:22 RBC 3.82 M/uL (4.20-5.40) L 10/21/24 19:22 Hgb 9.9 g/dl (12.0-16.0) L 10/21/24 19:22 POC Hgb 11.9 g/dl (12.0-16.0) L 10/21/24 19:28 Hct 33.3 % (37.0-47.0) L 10/21/24 19:22 POC Hct 35 % (37-47) L 10/21/24 19:28 MCV 87.2 fL (80.0-100.0) 10/21/24 19:22 MCH 25.9 pg (25.0-34.0) 10/21/24 19:22 MCHC 29.7 g/dL (32.0-36.0) L 10/21/24 19: RDW Std Deviation 61.7 fL (36.4-46.3) H 10/21/24 19:22 RDW Coeff of Brandy 19.2 % (11.5-14.5) H 10/21/24 19:22 Plt Count 166 K/uL (130-400) 10/21/24 19:22 MPV 10.7 fL (9.4-12.4) 10/21/24 19:22 Immature Gran % (Auto) 0.4 % 10/21/24 19:22 Neut % (Auto) 74.4 % 10/21/24 19:22 Lymph % (Auto) 14.8 % 10/21/24 19:22 Christian % (Auto) 8.7 % 10/21/24 19:22 Eos % (Auto) 1.3 % 10/21/24 19:22 Baso % (Auto) 0.4 % 10/21/24 19:22 Neut # (Auto) 9.64 K/uL (1.40-6.50) H 10/21/24 19:22 Lymph # (Auto) 1.91 K/uL (1.20-3.40) 10/21/24 19:22 Christian # (Auto) 1.12 K/uL (0.11-0.59) H 10/21/24 19:22 Eos # (Auto) 0.17 K/uL (0.00-0.50) 10/21/24 19:22 Baso # (Auto) 0.05 K/uL (0.00-0.20) 10/21/24 19:22 Immature Gran # (Auto) 0.05 K/uL (0.01-0.20) 10/21/24 19:22 PT 11.3 Seconds (9.0-12.0) 10/21/24 19:22 INR 1.0 (0.9-1.1) 10/21/24 19: VBG pH 7.33 (7.36-7.41) L 10/21/24:44 VBG pCO2 47 mmHg (38-50) 10/21/24:44 VBG pO2 36 mmHg 09/01/25 19:44 VBG HCO3 25 mmol/L 10/21/24 19:44 VBG O2 Saturation < 60.0 % 10/21/24 19:44 VBG Base Excess -1.5 mEq/L 10/21/24 19:44 POC Sodium 141 mmol/L (135-144) 10/21/24 19:28 Sodium 139 mmol/L (136-145) 10/21/24 19:22 POC Potassium 4.3 mmol/L (3.3-5.0) 10/21/24 19:28 Potassium 4.4 mmol/L (3.5-5.1) 10/21/24 19:22 POC Chloride 106 mmol/L (101-112) 10/21/24 19:28 Chloride 106 mmol/L (98-107) 10/21/24 19:22 Carbon Dioxide 25 mmol/L (21-32) 10/21/24 19:22 POC Total CO2 22 mmol/L (24-31) L 10/21/24 19:28 Anion Gap 8 (3-11) 10/21/24 19:22 POC Anion Gap 17.0 mmol/L (16-25) 10/21/24 19:28 POC BUN 32 mg/dl (7-18) H 10/21/24 19:28 BUN 34 mg/dl (6-23) H 10/21/24 19:22 Creatinine 1.33 mg/dl (0.6-1.2) H 10/21/24 19:22 POC Creatinine 1.5 mg/dl (0.6-1.3) H 10/21/24 19:28 Est Cr Clr Drug Dosing Not Reportable 10/21/24 19:22 eGFR 43.85 10/21/24 19:22 BUN/Creatinine Ratio 25.6 (10-20) H 10/21/24 19:22 Glucose 118 mg/dl (70-99(Fasting)) H 10/21/24 19:22 POC Glucose (other) 118 mg/dl (70-99) H 10/21/24 19:28 Calcium 9.7 mg/dl (8.6-10.3) 10/21/24 19:22 POC Ioniz Calcium [place] 1.24 mmol/l (1.12-1.32) 10/21/24 19:28 Phosphorus 3.1 mg/dl (2.5-4.9) 10/21/24 19:22 Magnesium 1.6 mg/dl (1.7-2.4) L 10/21/24 19:22 Total Bilirubin 0.6 mg/dl (0.2-1.0) 10/21/24 19:22 AST 20 U/L (13-39) 10/21/24 19:22 ALT 10 U/L (7-52) 10/21/24 19:22 Alkaline Phosphatase 95 U/L (34-104) 10/21/24 19:22 Troponin I High Sens 62.0 pg/ml (0-14) H* D 10/21/24 21:04 B-Natriuretic Peptide 966 pg/ml (0-100) H 10/21/24 19:22 Total Protein 7.8 gm/dl (6.0-8.3) 10/21/24 19:22 Albumin 3.7 gm/dl (3.4-5.0) 10/21/24 19:22 Globulin 4.1 gm/dl (2.5-4.0) H 10/21/24 19:22 Albumin/Globulin Ratio 0.9 (0.9-2) 10/21/24 19:22 Lipase 20 U/L (11-82) 10/21/24 19:22 Procalcitonin < 0.02 ng/ml (0-0.5) 10/21/24 19:22 TSH 1.750 uIu/ml (0.300-4.500) 10/21/24 19:22 Urine Color Yellow 10/21/24 21:47 Urine Appearance Clear (Clear) 10/21/24 21:47 Urine pH 5.5 (4.5-7.5) 10/21/24 21:47 Ur Specific [place] 1.019 (1.000-1.030) 10/21/24 21:47 Urine Protein Trace (Negative) H 10/21/24 21:47 Urine Glucose (UA) Negative (Negative) 10/21/24 21:47 Urine Ketones Negative (Negative) 10/21/24 21:47 Urine Blood Negative (Negative) 10/21/24 21:47 Urine Nitrite Negative (Negative) 10/21/24 21:47 Urine Bilirubin Negative (Negative) 10/21/24 21:47 Urine Urobilinogen Negative (Negative) 10/21/24 21:47 Ur Leukocyte Esterase 2+ (Negative) H 10/21/24 21:47 Urine WBC (Auto) 0-5 /hpf (0-5) 10/21/24 21:47 Urine RBC (Auto) 6-10 /hpf (0-2) H 10/21/24 21:47 U Hyaline Cast (Auto) 0-2 /lpf (0-2) 10/21/24 21:47 U Epithel Cells (Auto) 0-2 /hpf (0-2) 10/21/24 21:47 Urine Bacteria (Auto) 4+ (None Seen) H 10/21/24 21:47 Urine Comment 10/21/24 21:47 Impressions Chest X-Ray 10/21/24 19:11 Chest radiograph, one view History: Chest pain Comparison: 09/23/2024 Findings/impression: Single AP view of the chest performed. The cardiac silhouette is enlarged. New perihilar opacity, as well as prominence of the pulmonary vascularity, suggestive of new pulmonary edema. No pleural effusion or pneumothorax is visualized. Electronically signed by Reinaldo Hairston 10-21-2024 7:34 PM PG Care Time/CCT Total # of Minutes Spent Total Time Spent with Patient: Total time spent is greater than 50% in coordination of care (as documented) at patient's floor/unit and/or counseling patient: Coding Level of Care Code 30225 INT INP/OBS CARE 3/75MIN Diagnoses Acute on chronic heart failure I50.9 Elevated troponin R79.89 Hypertension I10 Hypertension type: unspecified Paroxysmal atrial fibrillation I48.0 GERD (gastroesophageal reflux disease) K21.9 Dyslipidemia E78.5 Coronary artery disease involving [place] coronary artery of [place] heart without angina pectoris I25.10 Coronary Disease-Associated Artery/Lesion type: [place] artery [place] vs. transplanted heart: [place] heart Associated angina: without angina (3) Hypertension Hypertension type: unspecified Qualified Code(s): I10 - Essential (primary) hypertension (7) CAD (coronary artery disease) Coronary Disease-Associated Artery/Lesion type: [place] artery [place] vs. transplanted heart: [place] heart Associated angina: without angina Qualified Code(s): I25.10 - Atherosclerotic heart disease of [place] coronary artery without angina pectoris
[2024-10-21 22:17] LABS: Appearance Urine Clear (Clear); Bacteria Urine Automated 4+ (None Seen); Cast Urine Automated 0-2 /lpf (0-2); Epithelial Cell Urine Auto 0-2 /hpf (0-2); Glucose Urine UA Negative (Negative); WBC Urine Automated 0-5 /hpf (0-5)
[2024-10-21] MEDS: HYDROmorphone INJ 0.5 MG/0.5 ML SYR IV STA (23:15)
[2024-10-22] MEDS ORDERED: ONDANSETRON INJ 2 MG/ML 2 ML VIAL IV PRN (00:49)
[2024-10-22] MEDS ORDERED: ACETAMINOPHEN 325 MG TAB PO PRN (00:49)
[2024-10-22] MEDS ORDERED: SODIUM CHLORIDE 0.65% NA SOLN 45 ML (OCEAN) PRN (00:49)
[2024-10-22] MEDS: MAGNESIUM SULFATE / D5W 1 GM/100 ML BAG IV ONE (01:54)
[2024-10-22 06:22] LABS: Hematocrit (blood only) 27.6 % (37.0-47.0); Hemoglobin 8.3 g/dl (12.0-16.0); Mean Corpuscular Hemoglobin 26.3 pg (25.0-34.0); Mean Corpuscular Volume 87.6 fL (80.0-100.0); Platelet Count 121 K/uL (130-400); RDW Standard Deviation 61.1 fL (36.4-46.3); Red Blood Count 3.15 M/uL (4.20-5.40); White Blood Count 8.64 K/ul (4.8-10.8)
[2024-10-22 06:47] LABS: Anion Gap 5.0 (3-11); Blood Urea Nitrogen 37.0 mg/dl (6-23); Calcium 9.2 mg/dl (8.6-10.3); Carbon Dioxide 27.0 mmol/L (21-32); Chloride 108.0 mmol/L (98-107); Creatinine Clr Calc Pharmacy 51.9 ml/min; Glucose 81.0 mg/dl (70-99(Fasting)); Potassium 4.3 mmol/L (3.5-5.1); Sodium 140.0 mmol/L (136-145)
[2024-10-22 07:56] VITALS: TEMP 97.9
[2024-10-22] MEDS: DOCUSATE SODIUM 100 MG CAP PO SCH (08:20)
[2024-10-22] MEDS: ASPIRIN 81 MG CHEW PO SCH (08:28)
[2024-10-22] MEDS: FUROSEMIDE INJ 20 MG/2 ML VIAL IV SCH (08:29)
[2024-10-22] MEDS: CLOPIDOGREL BISULFATE 75 MG TAB PO SCH (08:29)
[2024-10-22] MEDS: METOPROLOL SUCC 25MG EXT REL TAB PO SCH (08:29)
[2024-10-22] MEDS: PREGABALIN 100 MG CAP PO SCH (08:29)
[2024-10-22] MEDS: ESCITALOPRAM OXALATE 10 MG TAB PO SCH (08:29)
[2024-10-22] MEDS: MEMANTINE HCL 10 MG TAB PO SCH (08:29)
[2024-10-22] MEDS ORDERED: FUROSEMIDE INJ 20 MG/2 ML VIAL IV SCH (09:00)
--- NOTE | 2024-10-22 11:39 | Electrocardiogram Report ---
Test Reason : Blood Pressure : */* mmHG Vent. Rate : 124 BPM Atrial Rate : 124 BPM P-R Int : 130 ms QRS Dur : 74 ms QT Int : 284 ms P-R-T Axes : 53 -2 41 degrees QTcB Int : 408 ms Sinus tachycardia with Premature atrial complexes Nonspecific ST abnormality Abnormal ECG When compared with ECG of 25-Sep-2024 09:30, Premature atrial complexes are now Present Vent. rate has increased by 60 bpm Confirmed by Reinaldo Bermeo ([id number]) on 10/22/2024 11:39:23 AM Referred By: REFERRED SELF Confirmed By: Reinaldo Bermeo
[2024-10-22 11:53] VITALS: PULSE 74; RESP 18; O2SAT 96
--- NOTE | 2024-10-22 14:11 | Discharge Summary ---
"Discharge Summary Date of Service October 22, 2024 Principal Dx & Hospital Course #1 = Principal Diagnosis (1) Acute on chronic heart failure: (2) Elevated troponin: (3) Hypertension: (4) Paroxysmal atrial fibrillation: (5) GERD (gastroesophageal reflux disease): (6) Dyslipidemia: (7) CAD (coronary artery disease): Plan #Acute on chronic HFpEF 69yo female presenting with progressive edema, orthopnea and SOB. Patient has been on increased dose of Lasix outpatient - failed therapy. Briefly hypoxic in the ER to 82% - no saturating well no NC. Admited for diuresis. Last echo with EF of 65-70% on 09/22/24 - thickened and calcified aortic valve with trace aortic regurgitation. Responded well to 20mg IV lasix. Quickly weaned down to room air. We discussed dietary habits, suspect that this event was triggered by salt indiscretion with increaed potato chip intake. Given a scale and discussed daily weights. Lasix increased to 20mg PO daily and CHF clinic referall upon discharge. #Elevated troponin - peaked at 114, CP has resolved. No events on tele. Suspect poor renal clearance. No evidence of ischemia on EKG. #Paroxysmal atrial fibrillation | HTN - Continue Metoprolol 25mg po BID, No anticoagulation - patient had Watchman procedure performed #CAD -Continue ASA 81mg po daily -Continue Plavix 75mg po daily -Continue Atorvastatin 80mg po daily -Continue Metoprolol 25mg po BID #GERD -Continue Protonix 40mg po daily #Anxiety/mental health -Continue Doxepin -Continue Escitalopram -Cotninue Memantine 10mg po BID Dispo: discharge to home with HH today. CHF clinic follow up Notes For Next Care Provider CHF education important to be reinforced Medication Changes From Visit lasix increased to 20mg daily Admission HPI Per Admitting Provider Caroline Paulino is a 69yo female with history of AF, HTN, CAD, HFpEF presenting with shortness of breath. Patient's Lasix was increased from 10mg three times weekly to 20mg three times weekly in September. She reports she has been urinating more frequently since this medication adjustment. She does, however, report progressive edema and orthopnea as well as shortness of breath. This evening she had some substernal chest discomfort - sharp in nature that lasted several hours. She also had chills today. No fever, no cough, no abdominal pain, nausea, vomiting, diarrhea. No additional complaints at this time. In the ER patient afebrile - initially tachycardic and hypertensive. Placed on supplemental O2 - hypoxic at 82% on room air, now improved on 4L NC ER Course: Tylenol Albuterol Lasix 20mg IV Oxycodone 5mg PO Dilaudid 0.25mg IV Magnesium Discharge Exam General: NAD, VS as above Resp: normal respiratory effort, lungs clear to auscultation CV: RRR, no murmur, Abd: normal bowel sounds, non tender Extremities: Moves all extremities, no LE pitting edema Neuro: A&O x3, Skin: intact, no lesions noted Discharge Plan Discharge Items Patient Disposition: Home - Home Health Services Reason For Visit: SHORTNESS OF BREATH, CHEST PAIN Discharge Diagnosis: CHF exacerbation Condition on Discharge: Fair Activity: Resume your previous activity Weightbearing: Full weightbearing Non-emergency contact: Primary Care Provider and Emission Specialist Call non-emergency contact if: you have any medication questions, your symptoms worsen and your pain is worsening Follow-up/Referrals: Kaci Duffy PA-C [Physician Back Maker] - 10/29/24 2:00 pm (Hospital follow up on October 29 at 2 pm.) Fernando Coleman DO [Physician] - (The office will call you to schedule a follow up appointment) Diet: Heart Healthy and Low Sodium (2gm) Addtl Attending Provider Instructions: Ms. Paulino, You were hospitalized after having chest pain and shortness of breath at home. This was found to be from exacerbation of your heart failure, likely from the potato chips you ate at home. Increase salt intake can tip off your heart failure. You have been provided with a scale to weigh yourself everyday - please do so each morning with the same amount of clothes on. Keep record of your weight and take it to your cardiology and heart failure appointments. If you can more than 2 pounds in one day or 5 pounds in a week please call your PCP or pencils washer. They may tell you to change your medication to prevent the need for hospitalizations. We have increased your lasix to 20mg everyday. Please make sure you are taking it this way. No other changes to your home medications. Activity: You can do normal everyday activities as your body allows. Take rest breaks if you feel tired. Do not overexert. Stop activity if you have pain, shortness of breath or feel dizzy. Follow-up appointments: Make an appointment with your primary care physician within one week of discharge. A copy of this summary will be sent to them. Every time you see your primary care physician, or any other doctor, bring your medication list, and a list of questions. CONTACT YOUR PRIMARY CARE PROVIDER if you experience any of the following: Shortness of breath or difficulty breathing Fevers or chills Feeling tired with normal activity or experiencing dizziness or fainting Difficulty following your treatment plan, or difficulty taking medications CALL 911 OR GO TO THE EMERGENCY DEPARTMENT if you experience any of the following: Severe abdominal pain or nausea/vomiting Severe chest pain, or chest pain that radiates (moves) to your jaw or arm Sudden, severe shortness of breath or difficulty breathing Thank you for allowing us to participate in your care. Pending Studies at Discharge: No Stand-Alone Forms: [employer], Smoking Cessation Medications and DC Order Prescriptions: Continued Zepbound 2.5 mg/0.5 mL pen injector 2.5 mg subcut .WEEKLY Qty: 2 0RF Rx Instructions: HAS NOT STARTED YET OF 10/21/2024 oxycodone 5 mg tablet 5 mg PO Q6H PRN (Reason: pain level 6-10 on a 1-10 scale) Qty: 10 0RF clobetasol 0.05 % cream 1 applic topical BID Qty: 60 6RF Rx Instructions: Bid to affected psoriasis scalp and Bullous pemphigoid trunk as directed. Discontinue if area clear triamcinolone acetonide 0.025 % ointment 1 applic topical BID PRN (Reason: psoriasis) Qty: 15 6RF Rx Instructions: Bid to psoriasis on face x 4 weeks. Do not use is psoriasis resolved. metoprolol succinate 50 mg tablet extended release 24 hr 25 mg PO BID Rx Instructions: TAKE 0.5 TABLETS BY MOUTH IN THE MORNING AND 0.5 TABLETS BEFORE BEDTIME escitalopram oxalate [Lexapro] 10 mg tablet 10 mg PO DAILY Qty: 30 2RF Rx Instructions: take 5 mg x 1 week and then increase to 10 mg if tolerating Dupixent Pen 300 mg/2 mL pen injector 300 mg SUBCUT Q14D Rx Instructions: q 2 weeks clopidogrel 75 mg tablet 75 mg PO QAM cyclosporine 0.05 % dropperette 1 drp OPB .EVERY 12 HOURS aspirin [Aspirin Childrens] 81 mg Tablet,Chewable 81 mg PO QAM atorvastatin 80 mg tablet 80 mg PO QPM sumatriptan succinate 25 mg tablet 25 - 50 mg PO DIRECTED MDD 5 TABS/24 HOURS PRN (Reason: Migraine Headache) Rx Instructions: TAKE 50 MG AT ONSET OF SUE, THEN MAY REPEAT WITH 25 MG EVERY 2 HOURS NEEDED. MAX 5 TABS IN 24 HOURS. pregabalin 100 mg capsule 100 mg PO TID Rx Instructions: TAKE IN THE MORNING,AT NOON AND BEFORE BEDTIME Saline Mist 0.65 % aerosol,spray 2 spray NA Q6H PRN (Reason: NASAL DRYNESS) doxepin 25 mg capsule 25 mg PO HS Qty: 30 0RF cyanocobalamin (vitamin B-12) [Vitamin B-12] 1,000 mcg Tablet 1,000 mcg PO QAM Qty: 30 0RF ascorbic acid (vitamin C) 250 mg Tablet 250 mg PO QAM Qty: 30 0RF tacrolimus 0.1 % Ointment 1 applic TOPICAL BID PRN (Reason: itching) Qty: 30 0RF calcipotriene 0.005 % cream 1 applic TOPICAL DAILY PRN (Reason: flare up) Qty: 60 0RF betamethasone dipropionate 0.05 % Ointment 1 applic TOPICAL BID PRN (Reason: RASH FACE/TRUNK/ARMS) Qty: 15 0RF clotrimazole 1 % Cream 1 applic TOPICAL BID PRN (Reason: Itching) Qty: 45 0RF folic acid 800 mcg Tablet 0.8 mg PO QAM Qty: 30 0RF memantine 10 mg tablet 10 mg PO BID Qty: 60 0RF cholecalciferol (vitamin D3) [Vitamin D3] 1,000 unit Tablet 1,000 unit PO QAM Qty: 30 0RF [place] 3-6-9 1,200 mg Capsule 1 cap PO QAM Qty: 30 0RF Rx Instructions: FORMULA HAS GREEN TEA pantoprazole 40 mg Tablet,Delayed Release (Dr/Ec) 40 mg PO QAM Qty: 30 0RF docusate sodium [Colace] 100 mg capsule 100 mg PO DAILY Changed furosemide 20 mg tablet 20 mg PO QAM Qty: 30 0RF Rx Instructions: take on MON/MON/FRI Discharge Orders: Discharge Order (Routine); Ordered 10/22/24 Ordered By: Ivy Crespo/Other Patient Handouts: Heart Failure Flare Up Signs, Heart Failure: Tracking Your Weight, Heart Failure Make Changes Diet, Heart Failure Dc Admission Data Admit Date/Time: 10/21/24 22:04 Attending Provider: Fernando Gerber Admit Provider: Dia Baig Primary Care Provider: PCP,NO Other Providers: Dia Baig; [place]Home [facility]; Kaci Duffy Other Interventions: Discharge Summary Assessment (RN) Last Done: 10/22/24 14:41 Hospital Stay Data Consultations 10/21/24 20:51 ED Decision to Admit Stat 10/22/24 14:08 [facility] CHF Program Referral Routine Diagnostic Imagining Performed Chest X-Ray 10/21/24 19:11 Chest radiograph, one view History: Chest pain Comparison: 09/23/2024 Findings/impression: Single AP view of the chest performed. The cardiac silhouette is enlarged. New perihilar opacity, as well as prominence of the pulmonary vascularity, suggestive of new pulmonary edema. No pleural effusion or pneumothorax is visualized. Electronically signed by Reinaldo Hairston 10-21-2024 7:34 PM Pending Results Patient Have Any Pending Studies at Discharge: No Discharge Instructions Given to Patient (Per Discharging Provider) Ms. Paulino, Abelardo were hospitalized after having chest pain and shortness of breath at home. This was found to be from exacerbation of your heart failure, likely from the potato chips you ate at home. Increase salt intake can tip off your heart failure. You have been provided with a scale to weigh yourself everyday - please do so each morning with the same amount of clothes on. Keep record of your weight and take it to your cardiology and heart failure appointments. If you can more than 2 pounds in one day or 5 pounds in a week please call your PCP or pencils washer. They may tell you to change your medication to prevent the need for hospitalizations. We have increased your lasix to 20mg everyday. Please make sure you are taking it this way. No other changes to your home medications. Activity: You can do normal everyday activities as your body allows. Take rest breaks if you feel tired. Do not overexert. Stop activity if you have pain, shortness of breath or feel dizzy. Follow-up appointments: Make an appointment with your primary care physician within one week of discharge. A copy of this summary will be sent to them. Every time you see your primary care physician, or any other doctor, bring your medication list, and a list of questions. CONTACT YOUR PRIMARY CARE PROVIDER if you experience any of the following: Shortness of breath or difficulty breathing Fevers or chills Feeling tired with normal activity or experiencing dizziness or fainting Difficulty following your treatment plan, or difficulty taking medications CALL 911 OR GO TO THE EMERGENCY DEPARTMENT if you experience any of the following: Severe abdominal pain or nausea/vomiting Severe chest pain, or chest pain that radiates (moves) to your jaw or arm Sudden, severe shortness of breath or difficulty breathing Thank you for allowing us to participate in your care. Total Time Total Time Spent Total Time Spent (In Minutes): Time spent day of discharge 40 minutes including direct patient care, medication reconciliation, documentation, review of labs and images, and coordination of care. Coding Level of Care Code 77536 INP/OBS DISCH >30 MIN Diagnoses Acute on chronic heart failure I50.9 Elevated troponin R79.89 Hypertension I10 Hypertension type: unspecified Paroxysmal atrial fibrillation I48.0 GERD (gastroesophageal reflux disease) K21.9 Dyslipidemia E78.5 Coronary artery disease involving apache coronary artery of apache heart without angina pectoris I25.10 Associated angina: without angina Coronary Disease-Associated Artery/Lesion type: apache artery [place] vs. transplanted heart: apache heart"
[2024-10-22 14:43] VITALS: BP 122/74
[2024-10-22] MEDS ORDERED: DOXEPIN HCL 25 MG CAPSULE PO SCH (21:00)
[2024-10-22] MEDS ORDERED: ATORVASTATIN 40 MG TAB PO SCH (21:00)
== END 2024-10-22 14:56 | disposition home health service (06) | DRG 291 ==
LOC: ED 19:08 → SUATTDRO 22:04 → 2S 22:04 → INTOOBSV 22:04 → 2S 10-22 00:38